=== PATIENT | female | born 1960 | race Caucasian/White ===

== ENCOUNTER → 2017-12-10 14:00 | Outpatient (CLI) | payer BC, SELFPAY ==
--- NOTE | 2017-12-10 14:00 | DT_ITS ---
This patient was seen during an EMR downtime December 08, 2017 - December 15, 2017. This patient may have a combination of paper and electronic documentation or all paper documentation. All documentation is viewable within the e-chart portion of [facility] for each patient visit.
[2017-12-14 15:39] LABS: Anion Gap 7 (5-15); BUN 13 mg/dL (7-18); BUN/Creat Ratio 21.7 RATIO (10-20); Calcium,Total 9.8 mg/dL (8.5-10.1); Chloride 102 mmol/L (98-107); Cholesterol 179 mg/dL (200); EST Glomerular Filtration Rate 110 mL/min (>60); Est Glom Filt Rate - Afr Amer 133 mL/min (>60); Glucose 92 mg/dL (74-106); High Density Lipoprotein 83 mg/dL; Potassium 4.2 mmol/L (3.5-5.1); Sodium Level 138 mmol/L (136-145); Triglycerides 137 mg/dL; Very Low Density Lipoprotein 27 mg/dL (5-40)
[2017-12-14 15:40] LABS: Hemoglobin A1c 7.7 % (4.2-6.3)
== END ==
PROVIDERS: Family Provider Family Medicine; PCP Family Medicine; Visit Provider Family Medicine
DX: E11.9 Type 2 diabetes mellitus without complications (principal)
CPT/HCPCS: 36415; 80048; 80061; 83036

== ENCOUNTER → 2018-10-01 15:45 | Outpatient (CLI) | payer BC, SELFPAY ==
[2018-10-01 17:46] LABS: Hemoglobin A1c 8.2 % (4.2-6.3)
[2018-10-01 17:49] LABS: Microalbumin,Random Urine 8.2 mg/L (NO RANGE EST.); Microalbumin:Creatinine Ratio 14.5 mg/g CRE (<30 mg/g CRE)
[2018-10-01 18:03] LABS: AST(SGOT) 13 U/L (15-37); Alanine Aminotransfer ALT/SGPT 22 U/L (13-56); Albumin, Serum 4.1 g/dL (3.2-5.0); Alkaline Phosphatase 65 U/L (45-117); Anion Gap 8 (5-15); BUN 14 mg/dL (7-18); Calcium,Total 9.1 mg/dL (8.5-10.1); Chloride 104 mmol/L (98-107); Cholesterol 168 mg/dL (200); Creatinine, Serum 0.64 mg/dL (0.55-1.02); EST Glomerular Filtration Rate 103 mL/min (>60); Est Glom Filt Rate - Afr Amer 124 mL/min (>60); Globulin 2.8 g/dL (2.2-4.2); Glucose 133 mg/dL (74-106); High Density Lipoprotein 83 mg/dL; Potassium 3.8 mmol/L (3.5-5.1); Protein, Total 6.9 g/dL (6.4-8.2); Sodium Level 141 mmol/L (136-145); Triglycerides 59 mg/dL; Very Low Density Lipoprotein 12 mg/dL (5-40)
== END ==
PROVIDERS: Family Provider Family Medicine; PCP Family Medicine; Referring Provider Family Medicine; Visit Provider Family Medicine
DX: E11.9 Type 2 diabetes mellitus without complications (principal)
CPT/HCPCS: 36415; 80048; 80061; 80076; 82043; 82570; 83036

== ENCOUNTER → 2019-07-09 09:18 | Outpatient (CLI) | payer BC, SELFPAY ==
--- NOTE | 2019-07-09 09:23 | RAD_ITS ---
STUDY: X-RAY - SACRUM/COCCYX REASON FOR EXAM: Female, 59 years old. pt fell on her tailbone area over a week ago, terrible pain since then TECHNIQUE: 3 view(s) of the sacrum and coccyx were obtained. COMPARISON: None. FINDINGS: Normal bilateral sacroiliac joints. There is acute fracture of the lower sacrum with mild angulation . Normal sacrococcygeal junction with a normal angulation. Normal coccygeal segments. The presacral soft tissue structures are unremarkable. RAD/Sacrum-Coccyx min 2 Views IMPRESSION: Fracture of the sacrum. Electronically Signed: Reece Contreras MD at 9:49 EST , Service support ,
== END ==
PROVIDERS: Family Provider Family Medicine; PCP Family Medicine; Referring Provider Family Medicine; Visit Provider Family Medicine
DX: S32.10XA Unspecified fracture of sacrum, initial encounter for closed fracture (principal); W19.XXXA Unspecified fall, initial encounter
CPT/HCPCS: 72220

== ENCOUNTER → 2019-07-14 13:12 | Outpatient (CLI) | payer BC, SELFPAY ==
--- NOTE | 2019-07-14 13:13 | RAD_ITS ---
STUDY: X-RAY - PELVIS REASON FOR EXAM: Female, 59 years old. Pain. Recent fall. TECHNIQUE: Inlet and outlet views of the pelvis was obtained. COMPARISON: None. FINDINGS: No visible fracture. No osseous destruction. Alignment anatomic. Mild degenerative changes. Soft tissues unremarkable. RAD/Pelvis 1 or 2 Views IMPRESSION: No acute osseous abnormality. Electronically Signed: Watson Fernandez, at 4:25 EST Tel , Service support ,
--- NOTE | 2019-07-14 13:13 | RAD_ITS ---
STUDY: X-RAY - SACRUM/COCCYX REASON FOR EXAM: Female, 59 years old. pain, fell 2018 TECHNIQUE: 3 view(s) of the sacrum and coccyx were obtained. COMPARISON: 9:23 AM same date. FINDINGS: Mildly displaced fracture of the S4 segment of the sacrum again demonstrated. As before there is mild anterior angulation of the more distal portion. No new fractures are evident. RAD/Sacrum-Coccyx min 2 Views IMPRESSION: Sacral fracture similar to previous. Electronically Signed: Watson Fernandez, at 4:35 EST Tel , Service support ,
== END ==
PROVIDERS: Family Provider Family Medicine; PCP Family Medicine; Referring Provider Orthopaedic Surgery; Visit Provider Orthopaedic Surgery
DX: M53.3 Sacrococcygeal disorders, not elsewhere classified (principal); S32.10XA Unspecified fracture of sacrum, initial encounter for closed fracture; W19.XXXA Unspecified fall, initial encounter
CPT/HCPCS: 72170; 72220

== ENCOUNTER → 2019-07-15 11:59 | Outpatient (CLI) | payer BC, SELFPAY ==
[2019-07-14 13:34] VITALS: BMI 25.7
[2019-07-15 14:27] LABS: Anion Gap 7 (5-15); BUN 20 mg/dL (7-18); BUN/Creat Ratio 26.7 RATIO (10-20); Calcium,Total 10.1 mg/dL (8.5-10.1); Chloride 103 mmol/L (98-107); Cholesterol 189 mg/dL (200); Creatinine, Serum 0.75 mg/dL (0.55-1.02); EST Glomerular Filtration Rate 85 mL/min (>60); Est Glom Filt Rate - Afr Amer 102 mL/min (>60); Glucose 154 mg/dL (74-106); High Density Lipoprotein 77 mg/dL; Potassium 3.8 mmol/L (3.5-5.1); Sodium Level 137 mmol/L (136-145); Triglycerides 129 mg/dL; Very Low Density Lipoprotein 26 mg/dL (5-40)
== END ==
PROVIDERS: Family Provider Family Medicine; PCP Family Medicine; Referring Provider Family Medicine; Visit Provider Family Medicine
DX: E11.9 Type 2 diabetes mellitus without complications (principal)
CPT/HCPCS: 36415; 80048; 80061

== ENCOUNTER → 2019-09-10 15:43 | Outpatient (CLI) | payer BC, SELFPAY ==
[2019-07-23 08:51] VITALS: BMI 25.7
--- NOTE | 2019-09-10 15:47 | RAD_ITS ---
STUDY: X-RAY - RIGHT ANKLE REASON FOR EXAM: Female, 59 years old. injury 2 weeks ago, pain and swelling foot and ankle -- pain goes up lateral side of leg TECHNIQUE: 3 view(s) of the ankle. COMPARISON: None. FINDINGS: Normal visualized distal tibia and fibula. Normal medial and lateral malleoli. Normal tibiotalar articulation and ankle mortise. Normal visualized talus and calcaneus. The visualized subtalar, talonavicular, calcaneocuboid and tarsal articulations are normal. The soft tissue structures are unremarkable. RAD/Ankle min 3 Views IMPRESSION: No fracture or malalignment. Electronically Signed: Don Corado MD ([place]) at 17:57 EST , Service support ,
--- NOTE | 2019-09-10 15:48 | RAD_ITS ---
STUDY: X-RAY - RIGHT FOOT CLINICAL: Female, 59 years old. injury 2 weeks ago, pain and swelling foot and ankle -- pain goes up lateral side of leg TECHNIQUE: 3 view(s) of the foot. COMPARISON: None. FINDINGS: Normal talus, calcaneus, and tarsal bones. Normal visualized subtalar, talonavicular, calcaneocuboid, tarsal and tarsometatarsal articulations. There is an accessory ossicle or unfused apophysis medial to the tarsal navicular. Normal metatarsi. Normal metatarsophalangeal joint of the great toe. Normal tibial and fibular sesamoid bones. Normal interphalangeal joint of the great toe. Normal phalanges of the great toe. Normal second through fifth metatarsophalangeal joints. Normal interphalangeal joints and phalanges of the lesser toes. The soft tissue structures are unremarkable. RAD/Foot min 3 Views IMPRESSION: No fracture or malalignment. Electronically Signed: Don Corado MD ([place]) at 17:57 EST , Service support ,
== END ==
PROVIDERS: PCP Family Medicine; Referring Provider Family Medicine; Visit Provider Family Medicine
DX: M25.571 Pain in right ankle and joints of right foot (principal)
CPT/HCPCS: 73610; 73630

== ENCOUNTER 2020-06-19 06:38 | Emergency (ER) | payer BC, SELFPAY ==
[2019-07-23 08:51] VITALS: BMI 25.7
[2020-06-19 06:39] VITALS: BP 160/94; PULSE 105; RESP 16; TEMP 36.6; O2SAT 98; BMI 26.4
--- NOTE | 2020-06-19 06:52 | ED.DCSUM_ITS ---
- ER Visit Summary Date of Service: 06/19/20 Chief Complaint: Itching and rash to scalp after having hair dyed History of Present Illness: The patient is a 60 F history of insulin-dependent diabetes. Patient had her hair dyed on Friday and yesterday developed a rash and itching to her scalp. She had this happen 1 other time after having her hair dyed about 15 years ago. She denies any other complaints. Physical Examination: Middle-aged female no acute distress. Vital signs are stable and afebrile. H EENT exam on her scalp and along her hairline its red and inflamed secondary to a local contact dermatitis or allergic reaction. Also along her neck at the hairline. No lymphadenopathy. Lungs clear to auscultation bilaterally. Heart regular rhythm no murmur. Abdomen soft nontender. Patient is moving all 4 extremities. No edema. Neurologically she is awake and alert with no focal motor deficits. Test Results: None Emergency Department Course and Treatment: History and exam are consistent with a local contact dermatitis secondary to hair dye. Treatment Plan: Wash her hair out thoroughly with plain water. Benadryl for itching. Prednisone for the allergic reaction. Watch her blood sugars closely. Disposition: Discharge Impression: Acute allergic reaction (contact dermatitis) secondary to hair dye History of insulin-dependent diabetes This note was generated with [employer] dictation software. It may contain incorrect words, spelling, and punctuation that were not noted in review of the chart prior to signing ED Disposition - Plan for ED Patient: Referrals: Milind Lamb MD [Primary Care Provider] -
--- NOTE | 2020-06-19 06:56 | ED.DEP ---
ED Disposition - Plan for ED Patient: Disposition: Home or Assisted Living Instructions: ED Allergic Reaction Local Other Prescriptions: Prednisone [Deltasone] 40 mg PO DAILY 5 Days tab Prescription Printed Referrals: Milind Lamb MD [Primary Care Provider] - As Needed Additional Instructions: Benadryl 25 to 50 mg 2-3 times a day for the itching. Wash your hair out thoroughly with plain water. You are having a local allergic reaction to the hair dye. Check with your hairdresser. Prednisone daily for the local allergic reaction to the hair dye. Watch her blood sugars closely the prednisone can affect your blood sugars and typically causes him to be higher.
[2020-06-19 07:03] VITALS: RESP 18
== END 2020-06-19 07:04 | disposition home or self-care (01) ==
LOC: ED 06:59
PROVIDERS: Emergency Provider Emergency Medicine; PCP Family Medicine
DX: L23.4 Allergic contact dermatitis due to dyes (principal); E11.9 Type 2 diabetes mellitus without complications; Z79.4 Long term (current) use of insulin
CPT/HCPCS: 99282

== ENCOUNTER → 2020-07-05 16:03 | Outpatient (CLI) | payer BC, SELFPAY ==
[2020-06-19 06:39] VITALS: BMI 26.4
[2020-07-05 18:15] LABS: Anion Gap 5 (5-15); BUN 17 mg/dL (7-18); BUN/Creat Ratio 23.7 RATIO (10-20); Calcium,Total 9.1 mg/dL (8.5-10.1); Chloride 107 mmol/L (98-107); Cholesterol 218 mg/dL (200); Creatinine, Serum 0.72 mg/dL (0.55-1.02); EST Glomerular Filtration Rate 89 mL/min (>60); Est Glom Filt Rate - Afr Amer 107 mL/min (>60); Glucose 107 mg/dL (74-106); High Density Lipoprotein 84 mg/dL; Potassium 3.5 mmol/L (3.5-5.1); Sodium Level 140 mmol/L (136-145); Triglycerides 75 mg/dL; Very Low Density Lipoprotein 15 mg/dL (5-40)
== END ==
PROVIDERS: PCP Family Medicine; Visit Provider Family Medicine
DX: E11.9 Type 2 diabetes mellitus without complications (principal)
CPT/HCPCS: 36415; 80048; 80061

== ENCOUNTER → 2020-10-19 14:10 | Outpatient (CLI) | payer MEDICAID, SELFPAY ==
[2020-10-19 18:14] LABS: Anion Gap 5 (5-15); BUN 12 mg/dL (7-18); BUN/Creat Ratio 17.7 RATIO (10-20); Chloride 101 mmol/L (98-107); Cholesterol 225 mg/dL (200); Creatinine, Serum 0.68 mg/dL (0.55-1.02); EST Glomerular Filtration Rate 95 mL/min (>60); Est Glom Filt Rate - Afr Amer 115 mL/min (>60); Glucose 142 mg/dL (74-106); High Density Lipoprotein 100 mg/dL; Potassium 3.9 mmol/L (3.5-5.1); Sodium Level 137 mmol/L (136-145); Triglycerides 88 mg/dL; Very Low Density Lipoprotein 18 mg/dL (5-40)
== END ==
PROVIDERS: PCP Family Medicine; Referring Provider Family Medicine; Visit Provider Family Medicine
DX: E11.9 Type 2 diabetes mellitus without complications (principal)
CPT/HCPCS: 36415; 80048; 80061

== ENCOUNTER → 2021-01-19 09:45 | Outpatient (CLI) | payer MEDICAID, SELFPAY ==
[2021-01-19 12:23] LABS: Microalbumin,Random Urine 12.9 mg/L (NO RANGE EST.); Microalbumin:Creatinine Ratio 17.5 mg/g CRE (<30 mg/g CRE)
[2021-01-19 12:27] LABS: Anion Gap 5 (5-15); BUN 9 mg/dL (7-18); BUN/Creat Ratio 13.5 RATIO (10-20); Calcium,Total 9.2 mg/dL (8.5-10.1); Chloride 103 mmol/L (98-107); Cholesterol 253 mg/dL (200); Creatinine, Serum 0.67 mg/dL (0.55-1.02); EST Glomerular Filtration Rate 97 mL/min (>60); Est Glom Filt Rate - Afr Amer 117 mL/min (>60); Glucose 257 mg/dL (74-106); High Density Lipoprotein 80 mg/dL; Sodium Level 137 mmol/L (136-145); Triglycerides 94 mg/dL; Very Low Density Lipoprotein 19 mg/dL (5-40)
== END ==
PROVIDERS: PCP Family Medicine; Visit Provider Family Medicine
DX: E11.9 Type 2 diabetes mellitus without complications (principal)
CPT/HCPCS: 36415; 80048; 80061; 82043; 82570

== ENCOUNTER 2021-07-24 15:53 | Inpatient (IN) | payer MEDICAID, SELFPAY ==
[2021-07-24] VITALS (13 sets, daily range): BP systolic 138–182; BP diastolic 65–94; PULSE 105–128; RESP 12–24; TEMP 36.6–36.9; O2SAT 89–100; BMI 18.0; BMI 20.3
--- NOTE | 2021-07-24 16:06 | RAD_ITS ---
HISTORY: covid with weakness EXAMINATION/TECHNIQUE: XR Chest 1 View: Portable upright AP chest x-ray COMPARISON: None FINDINGS: LINES/DEVICES: None. LUNGS: No consolidation, edema or effusion. No pneumothorax. MEDIASTINUM AND CARDIOVASCULAR STRUCTURES: Cardiac silhouette not enlarged. Central airways and mediastinal contour are unremarkable. BONES AND SOFT TISSUES: No acute bony abnormalities. RAD/Chest 1 View (Portable) IMPRESSION: No radiographic evidence of acute cardiopulmonary disease. at 1657 Reported and signed by: Frederick Gonzalez MD Electronically Signed: Frederick Gonzalez MD at 16:56 EST Tel , Service support ,
[2021-07-24 16:16] LABS: Absolute Lymphocyte Count 1.28 X10^3/uL (0.83-4.51); Basophil# 0.02 X10^3/uL; Basophil% 0.3 % (0-1); Eosinophil# 0.01 X10^3/uL; Eosinophils% 0.2 % (0-5); Hematocrit 46.5 % (37-47); Hemoglobin 14.9 g/dL (12.0-15.0); Lymphocyte # 1.28 X10^3/ul (0.83-4.51); Lymphocyte % 21.4 % (19-41); Mean Corpuscular Hgb 30.3 pg (27.0-32.0); Mean Corpuscular Volume 94.5 fL (81-99); Mean Platelet Vol. 12.8 fl (6.2-12.0); Monocyte# 0.66 X10^3/uL; NRBC Flagged by Analyzer 0 % (0-5); Neutrophil # 3.95 X10^3/uL (2.7-7.7); Neutrophil % 66.1 % (47-70); Platelet Count 176 K/mm3 (150-450); RBC Distribution Width CV 12.6 % (11.6-14.6); RBC Distribution Width SD 43.6 fl (35.1-43.9); Red Blood Count 4.92 M/mm3 (4.2-5.4)
--- NOTE | 2021-07-24 16:22 | EX.ED.DYSGE1 ---
HPI History of Present Illness Chief Complaint: General Illness Detail of Chief Complaint: Not feeling well for the last 2 to 3 days with history of COVID Informant: patient Narrative Narrative: Patient presents to the emergency department with multiple complaints related to COVID infection. Patient states that she was diagnosed with COVID-19 and has had symptoms for about 8 days. She complains of body aches and nausea. She had elevated blood sugars. Patient states she is not been compliant with her medications for the last several days. Patient just generally feels weak. She complains of pain in her back and her legs. She denies fevers. Patient is a type II diabetic. Patient's daughter told nursing staff patient is a heavy alcohol drinker. Patient denies drinking today and states she has not drank in 8 days. Prior similar symptoms: No PFSH PFSH Home Medications lisinopril 2.5 mg tablet 2.5 mg PO DAILY 07/14/19 [History Last Taken Unknown] sertraline 50 mg tablet 100 mg PO DAILY 07/14/19 [History Last Taken Unknown] insulin glargine U-300 conc 45 unit SQ QHS 06/19/20 [History Last Taken Unknown] metformin 1,000 mg PO BID 06/19/20 [History Last Taken Unknown] empagliflozin [Jardiance] 25 mg PO DAILY 07/24/21 [History Last Taken Unknown] glimepiride 2 mg PO DAILY 07/24/21 [History Last Taken Unknown] Allergy/AdvReac Type Severity Reaction Status Date / Time No Known Allergies Allergy Verified 07/24/21 15:57 Social History (Updated 07/23/19 @ 10:[address] Mj Borjas, DO) Smoking Status: Former smoker ROS ROS ED Constitutional Constitutional ED: Reports systems reviewed and no addt'l complaints, except as documented; Denies body ache(s), change in weight or chills Eyes Eyes: Denies acute decrease in peripheral vision, change in vision, double vision or loss of vision ENT ENT ED: Reports none; Denies ear pain, lip swelling, loss taste/smell, neck pain, otalgia or sore throat Cardiovascular Cardiovascular: Reports none; Denies abdominal pain, chest pain with activity, leg edema, lightheadedness, palpitations, rapid heart rate or syncope Respiratory/Chest Respiratory/Chest: Reports none and cough; Denies change in mental status, dry cough, dyspnea, hemoptysis, shortness of breath at rest or shortness of breath with exertion Gastrointestinal Gastrointestinal: Reports none, nausea and vomiting; Denies abdominal pain, change in stool character, diarrhea, hematemesis, hematochezia, melena or rectal bleeding Genitourinary Genitourinary ED: Reports none; Denies abdominal discomfort, anuria, dysuria, genital pain or polyuria Musculoskeletal Musculoskeletal: Reports none, back pain and myalgias; Denies arthralgias, difficulty walking, extremity pain or muscle weakness Integumentary Reports none; Denies abscess or rash Neurologic Neurologic: Reports none; Denies abnormal gait, confusion, focal weakness, frequent falls, headache(s), loss of vision, numbness, paresthesias, radicular pain, vertigo or weakness Psychiatric Psychiatric: Reports systems reviewed and no addt'l complaints, except as documented and none; Denies behavioral changes, confusion, difficulty concentrating, hallucinations, suicidal ideation, tactile hallucinations or visual hallucinations Endocrine Endocrinology: Denies none, cold intolerance, excessive sweating, fatigue or heat intolerance Hematologic/Lymphatic Hematologic/Lymphatic: Reports none; Denies anemia, easy bleeding or easy bruising Allergic/Immunologic Allergic/Immunologic ED: Denies as per HPI, none, lip swelling, mouth swelling, throat swelling, tongue swelling or hives EXAM Physical Exam Const Vital Signs: 07/24/21 15:54 07/24/21 15:58 07/24/21 16:14 Temperature 98 F Temperature Source Oral Pulse Rate 120 H Respiratory Rate 24 H Blood Pressure 182/94 H Blood Pressure Mean 123 Pulse Ox 89 94 100 Oxygen Delivery Method Room Air Room Air Room Air Positive well nourished and well developed General Appearance ED: well developed and NAD HEENT Reports TM's clear and moist mucous membranes normocephalic and atraumatic; Negative for trauma or tenderness Tympanic Membrane ED: Yes TM's clear Eyes PERRL and EOMs intact bilaterally General Eye ED: Negative for pale conjunctiva or scleral icterus Neck no lymphadenopathy, supple and no JVD General: Negative for tenderness Chest Wall inspection of chest normal and palpation of chest normal Chest: Negative for tenderness Resp normal respiratory effort and clear to auscultation bilaterally Effort and Inspection: Negative for respiratory distress or pain with movement Auscultation: Negative for rhonchi, wheezes or diminished lung sounds Cardio S1 normal heart sound, S2 normal heart sound and no murmurs Rate: tachycardic Peripheral Pulses: pulses 2+ throughout GI normal to inspection, nondistended, normoactive bowel sounds, soft to palpation, non-tender, non-distended and no masses Back/Spine no CVA tenderness and no thoracic nor lumbar tenderness Extremity normal to inspection General Extremety ED: Negative for edema General Extremity: Negative for edema Neuro oriented x3, CN's II-XII intact bilaterally, no sensory deficits noted and gait normal Sensorium / Orientation: awake, alert, oriented to person, oriented to place and oriented to time Motor Exam: strength 5/5 throughout and strength abnormal Psych mental status grossly normal Skin no rashes or lesions noted and no wounds MDM MDM MDM Narrative Medical decision making narrative: IV line established on arrival. Patient's blood work consistent with DKA. She was started on an insulin drip. She was ordered a liter saline fluid bolus. D-dimer also was elevated therefore CTA of the chest was ordered and results will be pending. Case discussed with hospitalist will evaluate patient for admission for DKA and COVID-19 Lab Data Attestation: I reviewed the patient's lab results. Labs: Laboratory Results - last 24 hr 07/24/21 07/24/21 07/24/21 16:00 16:00 16:00 WBC 6.0 RBC 4.92 Hgb 14.9 Hct 46.5 MCV 94.5 MCH 30.3 MCHC 32.0 RDW Std Deviation 43.6 RDW Coeff of Nellie 12.6 Plt Count 176 MPV 12.8 H Immature Gran % (Auto) 1.000 H Neut % (Auto) 66.1 Lymph % (Auto) 21.4 [place] % (Auto) 11.0 H Eos % (Auto) 0.2 Baso % (Auto) 0.3 Absolute Neuts (auto) 4.0 Absolute Lymphs (auto) 1.28 Nucleated RBC % 0 D-Dimer Quant (PE/DVT) Sodium 135 L Potassium 4.5 Chloride 100 Carbon Dioxide 9.0 L* Anion Gap 26 H BUN 17 Creatinine 1.33 H Estim Creat Clear Calc 38.61 Est GFR (MDRD) Af Amer 53 L Est GFR (MDRD) Non-Af 43 L BUN/Creatinine Ratio 12.8 Glucose 450 H Calcium 9.7 Ethyl Alcohol Acetone Level MODERATE H 07/24/21 07/24/21 16:00 16:00 WBC RBC Hgb Hct MCV MCH MCHC RDW Std Deviation RDW Coeff of Nellie Plt Count MPV Immature Gran % (Auto) Neut % (Auto) Lymph % (Auto) [place] % (Auto) Eos % (Auto) Baso % (Auto) Absolute Neuts (auto) Absolute Lymphs (auto) Nucleated RBC % D-Dimer Quant (PE/DVT) 0.61 H* Sodium Potassium Chloride Carbon Dioxide Anion Gap BUN Creatinine Estim Creat Clear Calc Est GFR (MDRD) Af Amer Est GFR (MDRD) Non-Af BUN/Creatinine Ratio Glucose Calcium Ethyl Alcohol < 3.0 Acetone Level Radiography Chest X-Ray - ED: 1 View Diagnostic Testing: Clinical Impression(s) from Imaging Studies Chest X-Ray 07/24/21 16:06 IMPRESSION: No radiographic evidence of acute cardiopulmonary disease. at 1657 Reported and signed by: Frederick Gonzalez MD Electronically Signed: Frederick Gonzalez MD at 16:56 EST Tel , Service support , 1 view chest x-ray obtained interpreted by myself as no acute disease process. Radiology in agreement. EKG Initial EKG: Attestation: I personally reviewed and interpreted this EKG as follows: Comments: Sinus rhythm with a rate of [address] changes Critical Care Time Critical Care Time: Yes Critical care time (excluding procedures): Including time spent:, Discussing w/Patient &/or Family/Insurance Verifier, Discussing w/Consultants, Arranging Admission or Transfer, Performing Direct Patient Care at Bedside and - (20 minutes) Discharge Plan Triage Chief Complaint: General Illness ED Provider: Odilon Iraheta Dx/Rx/DC Orders Clinical Impression: DKA (diabetic ketoacidosis), COVID-19 Prescriptions: No Action lisinopril 2.5 mg tablet 2.5 mg PO DAILY RF: 0 sertraline 50 mg tablet 100 mg PO DAILY RF: 0 metformin 1,000 MG tablet 1,000 mg PO BID RF: 0 insulin glargine U-300 conc 300 UNIT/ML insulin pen 45 unit SQ QHS RF: 0 glimepiride 2 mg tablet 2 mg PO DAILY RF: 0 Jardiance 25 mg tablet 25 mg PO DAILY RF: 0 Primary Care Provider: Milind Lamb Referrals: Milind Lamb MD [Primary Care Provider] - Disposition Disposition: Acute Care Hospital [facility]
[2021-07-24 16:31] LABS: Alcohol, Blood (Medical)-Serum < 3.0 mg/dL
[2021-07-24 16:48] LABS: Anion Gap 26 (5-15); BUN 17 mg/dL (7-18); BUN/Creat Ratio 12.8 RATIO (10-20); Calcium,Total 9.7 mg/dL (8.5-10.1); Chloride 100 mmol/L (98-107); Creatinine, Serum 1.33 mg/dL (0.55-1.02); EST Glomerular Filtration Rate 43 mL/min (>60); Est Glom Filt Rate - Afr Amer 53 mL/min (>60); Estimated Creatinine Clearance 38.61 ml/min; Glucose 450 mg/dL (74-106); Potassium 4.5 mmol/L (3.5-5.1); Sodium Level 135 mmol/L (136-145)
[2021-07-24 17:06] LABS: D-Dimer Quantitative (DVT/PE) 0.61 FEU/ug/m (0.27-0.49)
--- NOTE | 2021-07-24 17:10 | CT_ITS ---
HISTORY: covid, elevated d-dimer EXAMINATION: CTA Chest WO/W Contrast Injection TECHNIQUE: Helically acquired images were obtained of the chest following IV contrast as per pulmonary angiogram protocol with 3D reconstructions. A radiation dose optimization technique was used for this scan. IV Contrast dosage and agent: 75mL [id number] COMPARISON: None FINDINGS: LUNGS, PLEURA AND LARGE AIRWAYS: Scattered, patchy bilateral peripheral groundglass opacities without consolidations or pleural effusions. No pneumothorax. THYROID: No thyroid lesions. PULMONARY ARTERIES: Normal in caliber. No pulmonary embolism. AORTA AND GREAT VESSELS: No aneurysm or dissection. HEART AND PERICARDIUM: Heart size is normal. No pericardial effusion. MEDIASTINUM AND [place]: No mediastinal or hilar adenopathy. Esophagus is unremarkable. No hiatal hernia. UPPER ABDOMEN: No acute pathology. BONES: No acute or aggressive abnormality. CT/CTA Chest W/WO Contrast IMPRESSION: Negative CTA Chest. Pulmonary findings of unknown chronicity. In the appropriate clinical setting these findings are compatible with infection including atypical or viral pneumonia. Individualized dose optimization techniques were used for this CT. at 1821 Reported and signed by: Frederick Gonzalez MD Electronically Signed: Frederick Gonzalez MD at 18:20 EST Tel , Service support ,
--- NOTE | 2021-07-24 17:12 | HP.PCM.HOS_ITS ---
HPI - General General Date of Admission: 07/24/21 HPI Narrative ROBERT BRUCE, is a 61 F with history of type 2 diabetes mellitus, outpatient diagnosed COVID-19 on 07/19/2021 came to ER for generalized weakness, confusion not making sense. Prior to that patient has generalized malaise, loss of appetite, joint pain, lower back pain for 7-8 days and once was tested negative on last week Friday. The patient having generalized body aches and nausea and elevated blood sugar at home. She is not taking her oral medication and insulin for last several days. She also has loss of appetite. Complain of abdominal pain. In the ED, patient was found to be in DKA. She is tachycardic in ED. Heart rate 120s to 100. ALC 1.28 thousand. No leukocytosis. Chemistry shows bicarb of 9, anion gap 26, sodium 135. Creatinine 1.33. Acetone moderate. D-dimer elevated. CT angiogram done which is negative for PE but shows scattered, patchy groundglass opacity in both lungs. Twelve-lead EKG shows sinus tachycardia [address]-T changes. PFSH Home Medications lisinopril 2.5 mg tablet 2.5 mg PO DAILY 07/14/19 [History Last Taken Unknown] sertraline 50 mg tablet 100 mg PO DAILY 07/14/19 [History Last Taken Unknown] insulin glargine U-300 conc 45 unit SQ QHS 06/19/20 [History Last Taken Unknown] metformin 1,000 mg PO BID 06/19/20 [History Last Taken Unknown] empagliflozin [Jardiance] 25 mg PO DAILY 07/24/21 [History Last Taken Unknown] glimepiride 2 mg PO DAILY 07/24/21 [History Last Taken Unknown] Allergy/AdvReac Type Severity Reaction Status Date / Time No Known Allergies Allergy Verified 07/24/21 15:57 Social History Smoking Status: Former smoker ROS ROS Narrative Constitutional: Reports fatigue and weakness. Loss of appetite. Nausea HEENT: Reports systems reviewed and no addt'l complaints, except as documented Respiratory/Chest: Denies chest pain, shortness of breath at rest or with exertion Gastrointestinal: Nonspecific abdominal pain. Nausea. Denies coffee ground emesis, hematemesis or diarrhea or melena. No constipation. Genitourinary: Denies burning urination or new urinary tract symptoms. Dark urine in ED. Musculoskeletal: Complains of coccygeal spine and paravertebral muscle pain and knee pain last 7 days. No chronic arthritis or joint pain. Neurologic: Denies seizure-like activity skin: No ulcer. No rash Endocrinology: Diabetes mellitus type 2, reports systems reviewed and no addt'l complaints, except as documented Hematologic/Lymphatic: Reports systems reviewed and no addt'l complaints, except as documented Rest 14 ROS are negative except as mentioned in HPI Vital Signs Vital Signs Vital Signs: 07/24/21 15:54 07/24/21 15:58 07/24/21 16:14 Temperature 98 F Temperature Source Oral Pulse Rate 120 H Respiratory Rate 24 H Blood Pressure 182/94 H Blood Pressure Mean 123 Pulse Ox 89 94 100 Oxygen Delivery Method Room Air Room Air Room Air Weight Weight: 118 lb 6.212 oz Body Mass Index (BMI) 18.0 Physical Exam Narrative General: Alert, Oriented x3, Cooperative HEENT: Atraumatic, PERRLA, EOMI, Normocephalic Oral: Oral mucosa dry. No Gingival or Mucosal Lesions/ Ulcerations Neck: Supple, No JVD, Negative Carotid Bruits Lungs: Air entry diminished in bilateral lung bases. No crepitation/rhonchi/wheezing. No hypoxia Cardiovascular: Sinus tachycardia, normal S1, Normal S2, No murmurs Abdomen: Bowel Sounds sluggish, Soft, Non Tender, Non-Distended : Dark concentrated urine. No suprapubic tenderness. Extremities: No edema, Capillary Refill Less than 3 Seconds Skin: No rashes, No breakdown Musculoskeletal: Tenderness over the coccygeal bone with paravertebral muscle. No specific bony crepitus. ROM full. Neurological: Cranial nerves II-XII grossly intact, DTR 2+/4 and Symmetrical, Neuro grossly intact Psych/Mental Status: Flat affect Results Lab / Micro Data Result Diagrams: 07/24/21 16:00 07/24/21 16:00 Labs: Laboratory Results - last 24 hr 07/24/21 16:00: WBC 6.0, RBC 4.92, Hgb 14.9, Hct 46.5, MCV 94.5, MCH 30.3, MCHC 32.0, RDW Std Deviation 43.6, RDW Coeff of Nellie 12.6, Plt Count 176, MPV 12.8 H, Immature Gran % (Auto) 1.000 H, Neut % (Auto) 66.1, Lymph % (Auto) 21.4, Jack % (Auto) 11.0 H, Eos % (Auto) 0.2, Baso % (Auto) 0.3, Absolute Neuts (auto) 4.0, Absolute Lymphs (auto) 1.28, Nucleated RBC % 0 07/24/21 16:00: Sodium 135 L, Potassium 4.5, Chloride 100, Carbon Dioxide 9.0 L* , Anion Gap 26 H, BUN 17, Creatinine 1.33 H, Estim Creat Clear Calc 38.61, Est GFR (MDRD) Af Amer 53 L, Est GFR (MDRD) Non-Af 43 L, BUN/Creatinine Ratio 12.8, Glucose 450 H, Calcium 9.7 07/24/21 16:00: Acetone Level MODERATE H 07/24/21 16:00: Ethyl Alcohol < 3.0 07/24/21 16:00: D-Dimer Quant (PE/DVT) 0.61 H* Radiology Impression Chest X-Ray 07/24/21 16:06 IMPRESSION: No radiographic evidence of acute cardiopulmonary disease. at 1657 Reported and signed by: Frederick Gonzalez MD Electronically Signed: Frederick Gonzalez MD at 16:56 EST Tel , Service support , Assessment & Plan Assessment/Plan (1) DKA (diabetic ketoacidosis): (2) COVID-19: PLAN: 1. DKA with history of type II diabetes mellitus: Patient has high anion gap metabolic acidosis from DKA. Admitted in ICU. Patient is very dry therefore IV fluid normal saline bolus. She has second normal saline bolus running and then ordered 1 more liter. After that, normal saline 250 mL/h and then reevaluate. Continue insulin drip. Monitor intake and output. Maintain n.p.o. 2. COVID-19 infection with mainly knee arthralgia and lumbosacral spine pain: IV fluid resuscitation. COVID-19 PCR pending. Chest x-ray and CTA reviewed independently. No PE. I do not see any specific large constellation of pleural effusion but patchy groundglass opacities bilaterally. Patient is not hypoxic or tachypneic therefore no indication for dexamethasone or remdesivir. Inflammatory markers of COVID-19 are ordered. D-dimer elevated. 3. Hypertension: Blood pressure is elevated. IV hydralazine 10 mg daily 6 hourly as needed for systolic blood pressure more than 180 mmHg. Continue lisinopril 2.5 mg daily. 4. Anxiety and depression on sertraline continued. VTE prophylaxis moderate risk: Lovenox 31 SQ twice daily as per COVID-19 protocol. Living will/advanced directive/end of life care: Patient does not have living will or advanced directive. Her eldest daughter is 40-year-old and she is next of kin. After discussion of benefits/risks procedures involved with full code, DNR CC arrest and DNR CC, the patient opted for full code. Patient does want artificial life support including intubation, tube feed, ventilator and/chest compression, central venous catheter, vasopressor and DC shock if needed Total time spent in [id number] encounter in discussion of advanced directiv e 16 minutes. Clinical Impression(s) from Imaging Studies Chest X-Ray 07/24/21 16:06 IMPRESSION: No radiographic evidence of acute cardiopulmonary disease. Chest CTA 07/24/21 17:10 IMPRESSION: Negative CTA Chest. Pulmonary findings of unknown chronicity. In the appropriate clinical setting these findings are compatible with infection including atypical or viral pneumonia. Individualized dose optimization techniques were used for this CT. Charges/Coding Visit Charges Inpatient E&M: 98953 Init Hosp L3 Procedures Hospitalists Procedures: 85851 Advncd Care Plan 30 Min
[2021-07-24] MEDS: 0.9% Normal Saline 1,000 ML 999 ML IV (17:13)
--- NOTE | 2021-07-24 17:19 | NURSING ---
ICU [facility] DKA, COVID 19, GENERALIZED WEAKNESS
--- NOTE | 2021-07-24 17:45 | CASEMGMT ---
JEFFRY CM to room to meet with patient for initial transition planning/care coordination assessment. JEFFRY TRINIDAD introduced self and role at [facility]. Patient voices understanding and consents to assessment at this time. Patient's daughter Daysi present at bedside and provides additional history. Patient is alert and oriented and answers all questions appropriately. Care providers, pharmacy, and demographics verified/updated at this time. PCP: Milind Lamb Specialists: Denies Preferred Pharmacy: [facility] Insurance: [facility] Prescription Benefit: yes Living Will/HPOA: Patient denies having living will or HPOA. LNOK: Daughter Daysi Fortune Living Arrangements: Patient lives alone in one story duplex house with one step to enter the home. Patient states independent with ADLs prior to hospitalization. 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 Smoking/ETOH/Drugs: Former smoker (quit 10 years ago), current ETOH use but reports has not drank much since feeling ill the past few days (patient admits to 4 beers/day but daughter at bedside gestures to suggest more), denies drug use Transportation: Patient drives self and denies transportation concerns. DME/HHC/SNF: Patient typically ambulates independently without the use of an assistive device. Available DME in home: walk-in shower and glucometer. Patient denies previous HHC or SNF stays. Patient has no preference for DME company if home oxygen were to be needed at time of hospital discharge. Patient has had COVID-like symptoms since 07/17/20 and initially tested positive for COVID at workplace ([employer]) on 07/18 or 07/19. Patient reports she was instructed by her employer to continue working following positive test result as long as she was afebrile. Patient's daughter Daysi is available and willing to being medications and/or groceries as needed during time of quarantine. Patient has no concerns with going home at time of discharge. CM to follow for any discharge planning/needs. Patient voices no concerns/needs at this time. Advised patient to ask for CM if any questions/concerns/needs arise. Voices understanding. Plan: home
--- NOTE | 2021-07-24 17:53 | NURSING ---
CV ICU 201
[2021-07-24] MEDS: Morphine 4 MG/ML Syringe IV (17:56)
[2021-07-24] MEDS: Ondansetron 4 MG/2 ML Vial IV (17:56)
--- NOTE | 2021-07-24 18:54 | PCS.PANDOC ---
PANDEMIC DOCUMENTATION INITIATED: Date:07/24/2021 Time: 4995
[2021-07-24 19:01] LABS: Bedside Glucose 351 mg/dL (70-110)
[2021-07-24] MEDS: 0.9% Normal Saline 1,000 ML 500 ML IV (19:35)
[2021-07-24] MEDS: Dext 5%-0.45% NS 1,000 ML 150 ML IV (20:16)
[2021-07-24 20:26] LABS: Fibrinogen 428 mg/dl (203-444)
[2021-07-24 20:30] LABS: BNP,B-Type NATRIURETIC PEPTIDE 18.6 pg/mL (0-100)
[2021-07-24 20:34] LABS: Anion Gap 17 (5-15); BUN 15 mg/dL (7-18); BUN/Creat Ratio 12.5 RATIO (10-20); CPK Total, Creatine Kinase 47 U/L (26-192); Calcium,Total 9.4 mg/dL (8.5-10.1); Chloride 110 mmol/L (98-107); EST Glomerular Filtration Rate 49 mL/min (>60); Est Glom Filt Rate - Afr Amer 59 mL/min (>60); Estimated Creatinine Clearance 42.87 ml/min; Glucose 259 mg/dL (74-106); LDH 271 U/L (84-246); Lactic Acid 1.4 mmol/L (0.4-1.9); Potassium 3.9 mmol/L (3.5-5.1); Sodium Level 138 mmol/L (136-145)
[2021-07-24 20:48] LABS: Magnesium 2.3 mg/dL (1.6-2.6); Phosphorus 1.2 mg/dL (2.5-4.9)
[2021-07-24 21:50] LABS: Bedside Glucose 199 mg/dL (70-110)
[2021-07-24 21:50] LABS: Bedside Glucose 242 mg/dL (70-110)
[2021-07-24 21:50] LABS: Bedside Glucose 227 mg/dL (70-110)
[2021-07-24] MEDS: Morphine 2 MG/ML Syringe IV (22:31)
[2021-07-24] MEDS: Enoxaparin 30 MG/0.3 ML Syringe SC (23:57)
[2021-07-25] VITALS (19 sets, daily range): BP systolic 108–154; BP diastolic 57–88; PULSE 94–109; RESP 15–18; TEMP 36.9–37.2; O2SAT 95–99
[2021-07-25 02:06] LABS: Bedside Glucose 116 mg/dL (70-110)
[2021-07-25 02:06] LABS: Bedside Glucose 133 mg/dL (70-110)
[2021-07-25 02:06] LABS: Bedside Glucose 148 mg/dL (70-110)
[2021-07-25] MEDS: Potassium Chloride Oral Tablet 20 MEQ 40 MEQ PO ×2 (02:38→08:56)
[2021-07-25] MEDS: Potassium Chloride 10mEq/100mL 10 MEQ/100 ML IV.SOLN. 100 MEQ IV BOLUS ×6 (02:38→11:56)
[2021-07-25] MEDS: Dext 5%-0.45% NS 1,000 ML 150 ML IV (02:40)
[2021-07-25 03:12] LABS: BUN 13 mg/dL (7-18); Glucose 149 mg/dL (74-106)
[2021-07-25 03:13] LABS: Anion Gap 10 (5-15); BUN/Creat Ratio 12.6 RATIO (10-20); Calcium,Total 8.2 mg/dL (8.5-10.1); Chloride 114 mmol/L (98-107); Creatinine, Serum 1.03 mg/dL (0.55-1.02); EST Glomerular Filtration Rate 58 mL/min (>60); Est Glom Filt Rate - Afr Amer 70 mL/min (>60); Estimated Creatinine Clearance 49.95 ml/min; Potassium 2.9 mmol/L (3.5-5.1); Sodium Level 141 mmol/L (136-145)
[2021-07-25 04:56] LABS: AST(SGOT) 11 U/L (15-37); Alanine Aminotransfer ALT/SGPT 19 U/L (13-56); Albumin, Serum 3.2 g/dL (3.2-5.0); Alkaline Phosphatase 97 U/L (45-117); Anion Gap 9 (5-15); BUN 12 mg/dL (7-18); Bilirubin, Direct < 0.05 mg/dL (0.00-0.30); Calcium,Total 8.6 mg/dL (8.5-10.1); Chloride 112 mmol/L (98-107); EST Glomerular Filtration Rate 60 mL/min (>60); Est Glom Filt Rate - Afr Amer 73 mL/min (>60); Estimated Creatinine Clearance 52.31 ml/min; Globulin 3.6 g/dL (2.2-4.2); Glucose 74 mg/dL (74-106); Potassium 3.1 mmol/L (3.5-5.1); Protein, Total 6.8 g/dL (6.4-8.2); Sodium Level 140 mmol/L (136-145)
[2021-07-25] MEDS: TITRATION PARAMETER CHANGE 1 EACH IV (05:34)
[2021-07-25] MEDS: Morphine 2 MG/ML Syringe IV (05:38)
[2021-07-25 05:45] LABS: Bedside Glucose 105 mg/dL (70-110)
[2021-07-25 05:45] LABS: Bedside Glucose 81 mg/dL (70-110)
[2021-07-25 05:45] LABS: Bedside Glucose 78 mg/dL (70-110)
[2021-07-25 07:25] LABS: Bedside Glucose 396 mg/dL (70-110)
[2021-07-25 07:25] LABS: Bedside Glucose 377 mg/dL (70-110)
[2021-07-25] MEDS: Lisinopril 2.5 MG Tablet PO (08:56)
[2021-07-25] MEDS: Sertraline 100 MG Tablet PO (08:56)
[2021-07-25 09:11] LABS: Bedside Glucose 90 mg/dL (70-110)
[2021-07-25 09:11] LABS: Bedside Glucose 134 mg/dL (70-110)
--- NOTE | 2021-07-25 09:15 | PN.HOSP_ITS ---
Subjective Subjective Follow-up on acute DKA: Patient was seen and examined. She appears lethargic. She is not on oxygen. Denied any fever or chills. She has been off insulin drip and transition to Lantus with Premeal insulin. Objective Data Objective Data Vital Signs: Vital Signs Temp Pulse Resp BP Pulse Ox 98.7 F 95 18 122/61 H 99 07/25/21 04:00 07/25/21 07:00 07/25/21 07:00 07/25/21 07:00 07/25/21 07:00 Oxygen Delivery Method Room Air Weight: 57.5 kg Body Mass Index (BMI) 20.3 Intake & Output: Intake and Output for Last 24 Hours 07/23/21 07/24/21 07/25/21 23:59 23:59 23:59 Intake Total / 2134.49 / 2134.49 Balance / 2134.49 / 2134.49 Lab / Micro Data Result Diagrams: 07/24/21 16:00 07/25/21 04:30 Labs: Laboratory Results - last 24 hr 07/24/21 00:00: Sodium Cancelled, Potassium Cancelled, Chloride Cancelled, Carbon Dioxide Cancelled, Anion Gap Cancelled, BUN Cancelled, Creatinine Cancell ed, Estim Creat Clear Calc Cancelled, Est GFR (MDRD) Af Amer Cancelled, Est GFR (MDRD) Non-Af Cancelled, BUN/Creatinine Ratio Cancelled, Glucose Cancelled, Calcium Cancelled 07/24/21 15:55: POC Glucose 396 H 07/24/21 16:00: WBC 6.0, RBC 4.92, Hgb 14.9, Hct 46.5, MCV 94.5, MCH 30.3, MCHC 32.0, RDW Std Deviation 43.6, RDW Coeff of Nellie 12.6, Plt Count 176, MPV 12.8 H, Immature Gran % (Auto) 1.000 H, Neut % (Auto) 66.1, Lymph % (Auto) 21.4, [place] % (Auto) 11.0 H, Eos % (Auto) 0.2, Baso % (Auto) 0.3, Absolute Neuts (auto) 4.0, Absolute Lymphs (auto) 1.28, Nucleated RBC % 0 07/24/21 16:00: Sodium 135 L, Potassium 4.5, Chloride 100, Carbon Dioxide 9.0 L* , Anion Gap 26 H, BUN 17, Creatinine 1.33 H, Estim Creat Clear Calc 38.61, Est GFR (MDRD) Af Amer 53 L, Est GFR (MDRD) Non-Af 43 L, BUN/Creatinine Ratio 12.8, Glucose 450 H, Calcium 9.7 07/24/21 16:00: Acetone Level MODERATE H 07/24/21 16:00: Ethyl Alcohol < 3.0 07/24/21 16:00: D-Dimer Quant (PE/DVT) 0.61 H* 07/24/21 17:48: POC Glucose 351 H 07/24/21 17:55: COVID-19 (SUAD) Detected 07/24/21 18:47: POC Glucose 377 H 07/24/21 19:50: Phosphorus 1.2 L, Magnesium 2.3, C-React Prot Ext Range 27.20 H 07/24/21 19:50: Fibrinogen 428 07/24/21 19:50: Sodium 138, Potassium 3.9, Chloride 110 H, Carbon Dioxide 11.0 L , Anion Gap 17 H, BUN 15, Creatinine 1.20 H, Estim Creat Clear Calc 42.87, Est GFR (MDRD) Af Amer 59 L, Est GFR (MDRD) Non-Af 49 L, BUN/Creatinine Ratio 12.5, Glucose 259 H, Calcium 9.4, Lactate Dehydrogenase 271 H, Total Creatine Kinase 47 07/24/21 19:50: B-Natriuretic Peptide 18.6 07/24/21 19:50: Lactic Acid 1.4 07/24/21 19:50: Procalcitonin 0.10 H 07/24/21 19:53: POC Glucose 242 H 07/24/21 20:55: POC Glucose 227 H 07/24/21 21:47: POC Glucose 199 H 07/24/21 23:54: POC Glucose 133 H 07/25/21 00:00: Sodium 141, Potassium 2.9 L, Chloride 114 H, Carbon Dioxide 17.0 L, Anion Gap 10, BUN 13, Creatinine 1.03 H, Estim Creat Clear Calc 49.95, Est GFR (MDRD) Af Amer 70, Est GFR (MDRD) Non-Af 58 L, BUN/Creatinine Ratio 12.6, Glucose 149 H, Calcium 8.2 L 07/25/21 00:47: POC Glucose 148 H 07/25/21 02:01: POC Glucose 116 H 07/25/21 02:44: POC Glucose 105 07/25/21 04:27: POC Glucose 81 07/25/21 04:30: Sodium 140, Potassium 3.1 L, Chloride 112 H, Carbon Dioxide 19.0 L, Anion Gap 9, BUN 12, Creatinine 1.00, Estim Creat Clear Calc 52.31, Est GFR (MDRD) Af Amer 73, Est GFR (MDRD) Non-Af 60, BUN/Creatinine Ratio 12.0, Glucose 74, Calcium 8.6, Total Bilirubin 0.10 L, Direct Bilirubin < 0.05, AST 11 L, ALT 19, Alkaline Phosphatase 97, Total Protein 6.8, Albumin 3.2, Globulin 3.6 07/25/21 05:40: POC Glucose 78 07/25/21 06:28: POC Glucose 90 07/25/21 08:50: POC Glucose 134 H Radiography Diagnostic Testing: Radiology Impression Chest X-Ray 07/24/21 16:06 IMPRESSION: No radiographic evidence of acute cardiopulmonary disease. at 1657 Reported and signed by: Frederick Gonzalez MD Electronically Signed: Frederick Gonzalez MD at 16:56 EST Tel , Service support , Chest CTA 07/24/21 17:10 IMPRESSION: Negative CTA Chest. Pulmonary findings of unknown chronicity. In the appropriate clinical setting these findings are compatible with infection including atypical or viral pneumonia. Individualized dose optimization techniques were used for this CT. at 0081 Reported and signed by: Frederick Gonzalez MD Electronically Signed: Frederick Gonzalez MD at 18:20 EST Tel , Service support , Physical Exam Narrative Physical exam: General: Alert, Oriented x3, Cooperative, No apparent distress, Well developed HEENT: Atraumatic Oral: Moist Mucosa Neck: Supple Lungs: Clear to auscultation Cardiovascular: HS I+II, regular, no murmurs Abdomen: Bowel Sounds Present, Soft, Non Tender Extremities: No edema Assessment & Plan Assessment/Plan (1) DKA (diabetic ketoacidosis): QUALIFIERS: Diabetes mellitus type: type 2 Diabetes mellitus complication detail: without coma Qualified Code(s): E11.10 - Type 2 diabetes mellitus with ketoacidosis without coma (2) COVID-19: PLAN: 1. Acute DKA likely secondary to acute COVID-19 pneumonia, resolved Lantus with Premeal insulin and insulin sliding scale Check HbA1c, recheck electrolytes Transferred out of ICU 2. Acute COVID-19 pneumonia without hypoxia, patient is not on oxygen CTA of the chest was negative for acute PE showed bilateral infiltrates Would hold off on starting Decadron, continue to monitor 3. Hypokalemia/hypophosphatemia, replaced, recheck in a.m. 4. Hypertension, controlled, continue on lisinopril 5. Anxiety/depression, continue on sertraline 6. DVT prophylaxis with Lovenox subcu Charges/Coding Visit Charges Inpatient E&M: 70659 Subs Hosp L2
[2021-07-25] MEDS: Insulin Lispro 100 UNIT/ML INSULN.PEN SC ×4 (09:38→20:29)
[2021-07-25] MEDS: Enoxaparin 30 MG/0.3 ML Syringe SC ×2 (09:41→20:29)
[2021-07-25] MEDS: Metoclopramide 10 MG/2 ML Vial 5 MG IV ×2 (10:45→20:29)
[2021-07-25 11:41] LABS: Bedside Glucose 163 mg/dL (70-110)
[2021-07-25 12:20] LABS: Absolute Lymphocyte Count 1.05 X10^3/uL (0.83-4.51); Absolute Neutrophil Count 2.9 X10^3/uL (2.0-7.7); Basophil# 0.02 X10^3/uL; Basophil% 0.5 % (0-1); Eosinophil# 0.01 X10^3/uL; Eosinophils% 0.2 % (0-5); Hemoglobin 13.4 g/dL (12.0-15.0); Lymphocyte # 1.05 X10^3/ul (0.83-4.51); Lymphocyte % 23.6 % (19-41); Mean Corp Hgb Conc 33.5 g/dL (32-36); Mean Corpuscular Hgb 30.6 pg (27.0-32.0); Mean Corpuscular Volume 91.3 fL (81-99); Monocyte# 0.46 X10^3/uL; Monocyte% 10.4 % (0-10); NRBC Flagged by Analyzer 0 % (0-5); Neutrophil # 2.86 X10^3/uL (2.7-7.7); Neutrophil % 64.4 % (47-70); Platelet Count 127 K/mm3 (150-450); RBC Distribution Width CV 12.5 % (11.6-14.6); RBC Distribution Width SD 42.6 fl (35.1-43.9); Red Blood Count 4.38 M/mm3 (4.2-5.4); White Blood Count 4.4 K/mm3 (4.4-11.0)
[2021-07-25 12:34] LABS: Anion Gap 9 (5-15); BUN 11 mg/dL (7-18); BUN/Creat Ratio 13.3 RATIO (10-20); Calcium,Total 8.9 mg/dL (8.5-10.1); Chloride 109 mmol/L (98-107); Creatinine, Serum 0.83 mg/dL (0.55-1.02); EST Glomerular Filtration Rate 75 mL/min (>60); Est Glom Filt Rate - Afr Amer 90 mL/min (>60); Estimated Creatinine Clearance 63.02 ml/min; Glucose 151 mg/dL (74-106); Potassium 3.8 mmol/L (3.5-5.1); Sodium Level 137 mmol/L (136-145)
--- NOTE | 2021-07-25 13:21 | NURSING ---
report called to med-surg for transfer to room 311
[2021-07-25 18:46] LABS: Bedside Glucose 139 mg/dL (70-110)
[2021-07-25] MEDS: Acetaminophen 325 MG Tablet 650 MG PO (20:38)
[2021-07-25 21:25] LABS: Bedside Glucose 281 mg/dL (70-110)
[2021-07-26] VITALS (11 sets, daily range): BP systolic 123–151; BP diastolic 69–94; PULSE 78–118; RESP 16–18; TEMP 36.9–37.3; O2SAT 98–99
--- NOTE | 2021-07-26 02:29 | PCS.PANDOC ---
PANDEMIC DOCUMENTATION INITIATED: Date: 07/25/21 Time: 1899
[2021-07-26 02:50] LABS: Internal QC Validated? YES +Cl - CLEAR BKGD; Pregnancy, Urine Negative Negative
[2021-07-26] MEDS: Metoclopramide 10 MG/2 ML Vial 5 MG IV ×3 (06:18→20:13)
[2021-07-26 06:43] LABS: Absolute Lymphocyte Count 1.04 X10^3/uL (0.83-4.51); Absolute Neutrophil Count 1.6 X10^3/uL (2.0-7.7); Hematocrit 35.5 % (37-47); Hemoglobin 12.1 g/dL (12.0-15.0); Lymphocyte # 1.04 X10^3/ul (0.83-4.51); Lymphocyte % 34.2 % (19-41); Mean Corp Hgb Conc 34.1 g/dL (32-36); Mean Corpuscular Hgb 30.5 pg (27.0-32.0); Mean Corpuscular Volume 89.4 fL (81-99); Mean Platelet Vol. 12.4 fl (6.2-12.0); Monocyte# 0.35 X10^3/uL; Monocyte% 11.5 % (0-10); NRBC Flagged by Analyzer 0 % (0-5); Neutrophil # 1.62 X10^3/uL (2.7-7.7); Neutrophil % 53.3 % (47-70); Platelet Count 117 K/mm3 (150-450); RBC Distribution Width CV 12.7 % (11.6-14.6); RBC Distribution Width SD 41.9 fl (35.1-43.9); Red Blood Count 3.97 M/mm3 (4.2-5.4)
[2021-07-26 07:04] LABS: ALB/GLOB Ratio 0.7 RATIO (0.9-2.4); AST(SGOT) 10 U/L (15-37); Alanine Aminotransfer ALT/SGPT 12 U/L (13-56); Albumin, Serum 2.7 g/dL (3.2-5.0); Alkaline Phosphatase 93 U/L (45-117); Anion Gap 12 (5-15); BUN 6 mg/dL (7-18); BUN/Creat Ratio 8.9 RATIO (10-20); Calcium,Total 9.1 mg/dL (8.5-10.1); Chloride 106 mmol/L (98-107); Creatinine, Serum 0.68 mg/dL (0.55-1.02); EST Glomerular Filtration Rate 95 mL/min (>60); Est Glom Filt Rate - Afr Amer 115 mL/min (>60); Estimated Creatinine Clearance 76.92 ml/min; Globulin 3.7 g/dL (2.2-4.2); Glucose 279 mg/dL (74-106); Potassium 3.1 mmol/L (3.5-5.1); Protein, Total 6.4 g/dL (6.4-8.2); Sodium Level 135 mmol/L (136-145)
[2021-07-26] MEDS: Insulin Lispro 100 UNIT/ML INSULN.PEN SC ×6 (07:56→20:08)
[2021-07-26] MEDS: Lisinopril 2.5 MG Tablet PO (07:57)
[2021-07-26] MEDS: Enoxaparin 30 MG/0.3 ML Syringe SC ×2 (07:57→20:08)
[2021-07-26 09:01] LABS: Bedside Glucose 302 mg/dL (70-110)
[2021-07-26 11:30] LABS: Bedside Glucose 375 mg/dL (70-110)
--- NOTE | 2021-07-26 12:51 | PN.HOSP_ITS ---
Subjective Subjective Follow-up on acute DKA: Patient was seen and examined. Denied any new complaints. She feels weak generally. Denies any fever or chills Objective Data Objective Data Vital Signs: Vital Signs Temp Pulse Resp BP Pulse Ox 98.7 F 118 H 16 145/83 H 98 07/26/21 11:04 07/26/21 12:45 07/26/21 11:04 07/26/21 11:04 07/26/21 11:04 Oxygen Delivery Method Room Air Weight: 54.8 kg Body Mass Index (BMI) 20.3 Intake & Output: Intake and Output for Last 24 Hours 07/24/21 07/25/21 07/26/21 23:59 23:59 23:59 Intake Total / 3225.3233 / 3225.3233 572.5 / 572.5 Output Total 1400 / 1400 Balance / 1825.3233 / 1825.3233 572.5 / 572.5 Lab / Micro Data Result Diagrams: 07/26/21 04:34 07/26/21 04:34 Labs: Laboratory Results - last 24 hr 07/25/21 16:45: POC Glucose 139 H 07/25/21 20:26: POC Glucose 281 H 07/26/21 01:00: Urine Test Negative 07/26/21 04:34: WBC 3.0 L, RBC 3.97 L, Hgb 12.1, Hct 35.5 L, MCV 89.4, MCH 30.5, MCHC 34.1, RDW Std Deviation 41.9, RDW Coeff of Nellie 12.7, Plt Count 117 L, MPV 12.4 H, Immature Gran % (Auto) 1.000 H, Neut % (Auto) 53.3, Lymph % (Auto) 34.2, [place] % (Auto) 11.5 H, Eos % (Auto) 0.0, Baso % (Auto) 0.0, Absolute Neuts (auto) 1.6 L, Absolute Lymphs (auto) 1.04, Nucleated RBC % 0 07/26/21 04:34: Sodium 135 L, Potassium 3.1 L, Chloride 106, Carbon Dioxide 17.0 L, Anion Gap 12, BUN 6 L, Creatinine 0.68, Estim Creat Clear Calc 76.92, Est GFR (MDRD) Af Amer 115, Est GFR (MDRD) Non-Af 95, BUN/Creatinine Ratio 8.9 L, Glucose 279 H, Calcium 9.1, Total Bilirubin 0.50, AST 10 L, ALT 12 L, Alkaline Phosphatase 93, Total Protein 6.4, Albumin 2.7 L, Globulin 3.7, Albumin/Globulin Ratio 0.7 L 07/26/21 07:44: POC Glucose 302 H 07/26/21 10:57: POC Glucose 375 H Micro: Microbiology 07/26/21 01:00 Urine, Random Legionella Antigen - Final 07/26/21 01:00 Urine, Random Streptococcus pneumoniae Antigen (M - Final Physical Exam Narrative Physical exam: General: Alert, Oriented x3, Cooperative, appears frail HEENT: Atraumatic Oral: Moist Mucosa Neck: Supple Lungs: Diminished to auscultation Cardiovascular: HS I+II, regular, no murmurs Abdomen: Bowel Sounds Present, Soft, Non Tender Extremities: No edema Assessment & Plan Assessment/Plan (1) DKA (diabetic ketoacidosis): QUALIFIERS: Diabetes mellitus type: type 2 Diabetes mellitus complication detail: without coma Qualified Code(s): E11.10 - Type 2 diabetes mellitus with ketoacidosis without coma (2) COVID-19: PLAN: 1. Acute DKA likely secondary to acute COVID-19 pneumonia, resolved 2. Type 2 DM, BS is uncontrolled, Continue on Lantus with increased premeal insulin and insulin sliding scale 3. Acute COVID-19 pneumonia without hypoxia, patient remains not on oxygen CTA of the chest was negative for acute PE showed bilateral infiltrates Continue to hold off on starting Decadron 4. Hypokalemia/hypophosphatemia, resolved, recheck in a.m. 5. Hypertension, controlled, continue on lisinopril 6. Anxiety/depression, continue on sertraline 7. DVT prophylaxis with Lovenox subcu Charges/Coding Visit Charges Inpatient E&M: 72629 Subs Hosp L2
[2021-07-26] MEDS: Potassium Chloride Oral Tablet 20 MEQ 40 MEQ PO ×2 (13:20→17:03)
[2021-07-26] MEDS: 0.9% Saline Lock 10 ML Syringe IV (13:21)
[2021-07-26] MEDS: Insulin Lispro 100 UNIT/ML INSULN.PEN 10 UNIT SC (16:18)
[2021-07-26 16:31] LABS: Bedside Glucose 261 mg/dL (70-110)
[2021-07-26] MEDS: Acetaminophen 325 MG Tablet 650 MG PO (17:04)
[2021-07-26 17:28] LABS: Hemoglobin A1c 11.8 % (3.8-5.6)
[2021-07-26 20:25] LABS: Bedside Glucose 253 mg/dL (70-110)
[2021-07-27] VITALS (8 sets, daily range): BP systolic 117–165; BP diastolic 74–93; PULSE 81–112; RESP 16; TEMP 36.4–36.9; O2SAT 98–99
[2021-07-27] MEDS: Metoclopramide 10 MG/2 ML Vial 5 MG IV (06:02)
[2021-07-27] MEDS: 0.9% Saline Lock 10 ML Syringe IV (06:02)
[2021-07-27 08:20] LABS: Bedside Glucose 94 mg/dL (70-110)
[2021-07-27] MEDS: Enoxaparin 30 MG/0.3 ML Syringe SC ×2 (08:58→21:10)
[2021-07-27] MEDS: Potassium Chloride Oral Tablet 20 MEQ 40 MEQ PO ×2 (08:58→16:07)
[2021-07-27] MEDS: Insulin Lispro 100 UNIT/ML INSULN.PEN 10 UNIT SC ×3 (08:58→17:28)
[2021-07-27] MEDS: Lisinopril 2.5 MG Tablet PO (08:58)
[2021-07-27 09:16] LABS: Absolute Lymphocyte Count 1.57 X10^3/uL (0.83-4.51); Absolute Neutrophil Count 1.1 X10^3/uL (2.0-7.7); Basophil# 0.01 X10^3/uL; Basophil% 0.3 % (0-1); Eosinophil# 0.01 X10^3/uL; Eosinophils% 0.3 % (0-5); Hematocrit 39.3 % (37-47); Hemoglobin 13.7 g/dL (12.0-15.0); Lymphocyte # 1.57 X10^3/ul (0.83-4.51); Lymphocyte % 50.3 % (19-41); Mean Corp Hgb Conc 34.9 g/dL (32-36); Mean Corpuscular Hgb 30.8 pg (27.0-32.0); Mean Corpuscular Volume 88.3 fL (81-99); Mean Platelet Vol. 11.5 fl (6.2-12.0); Monocyte# 0.39 X10^3/uL; Monocyte% 12.5 % (0-10); NRBC Flagged by Analyzer 0 % (0-5); Neutrophil # 1.12 X10^3/uL (2.7-7.7); Platelet Count 145 K/mm3 (150-450); RBC Distribution Width CV 12.7 % (11.6-14.6); RBC Distribution Width SD 41.1 fl (35.1-43.9); Red Blood Count 4.45 M/mm3 (4.2-5.4); White Blood Count 3.1 K/mm3 (4.4-11.0)
[2021-07-27 09:46] LABS: ALB/GLOB Ratio 0.7 RATIO (0.9-2.4); AST(SGOT) 23 U/L (15-37); Alanine Aminotransfer ALT/SGPT 15 U/L (13-56); Albumin, Serum 3.1 g/dL (3.2-5.0); Alkaline Phosphatase 109 U/L (45-117); Anion Gap 5 (5-15); BUN 10 mg/dL (7-18); BUN/Creat Ratio 17.1 RATIO (10-20); Calcium,Total 9.5 mg/dL (8.5-10.1); Chloride 108 mmol/L (98-107); Creatinine, Serum 0.59 mg/dL (0.55-1.02); EST Glomerular Filtration Rate 112 mL/min (>60); Est Glom Filt Rate - Afr Amer 135 mL/min (>60); Estimated Creatinine Clearance 88.49 ml/min; Globulin 4.2 g/dL (2.2-4.2); Glucose 112 mg/dL (74-106); Potassium 3.3 mmol/L (3.5-5.1); Protein, Total 7.3 g/dL (6.4-8.2); Sodium Level 140 mmol/L (136-145)
[2021-07-27 11:25] LABS: Bedside Glucose 104 mg/dL (70-110)
--- NOTE | 2021-07-27 12:07 | PCM.PN.HOSP ---
Subjective Subjective Follow-up on acute DKA: Patient was seen and examined. Patient was seen and examined. Appeared frail. Denied any specific complaints Objective Data Objective Data Vital Signs: Vital Signs Temp Pulse Resp BP Pulse Ox 97.5 F L 110 H 16 142/93 H 98 07/27/21 11:16 07/27/21 11:16 07/27/21 11:16 07/27/21 11:16 07/27/21 11:16 Oxygen Delivery Method Room Air Weight: 54.6 kg Body Mass Index (BMI) 20.3 Intake & Output: Intake and Output for Last 24 Hours 07/25/21 07/26/21 07/27/21 23:59 23:59 23:59 Intake Total 3225.3233 / 3225.3233 872.5 / 872.5 700 / 700 Output Total 1400 / 1400 Balance 1825.3233 / 1825.3233 872.5 / 872.5 700 / 700 Lab / Micro Data Result Diagrams: 07/27/21 09:03 07/27/21 09:03 Labs: Laboratory Results - last 24 hr 07/26/21 04:34: Hemoglobin A1c 11.8 H 07/26/21 16:16: POC Glucose 261 H 07/26/21 20:07: POC Glucose 253 H 07/27/21 07:31: POC Glucose 94 07/27/21 09:03: WBC 3.1 L, RBC 4.45, Hgb 13.7, Hct 39.3, MCV 88.3, MCH 30.8, MCHC 34.9, RDW Std Deviation 41.1, RDW Coeff of Nellie 12.7, Plt Count 145 L, MPV 11.5, Immature Gran % (Auto) 0.600, Neut % (Auto) 36.0 L, Lymph % (Auto) 50.3 H, [place] % (Auto) 12.5 H, Eos % (Auto) 0.3, Baso % (Auto) 0.3, Absolute Neuts (auto) 1.1 L, Absolute Lymphs (auto) 1.57, Nucleated RBC % 0 07/27/21 09:03: Sodium 140, Potassium 3.3 L, Chloride 108 H, Carbon Dioxide 27.0, Anion Gap 5, BUN 10, Creatinine 0.59, Estim Creat Clear Calc 88.49, Est GFR (MDRD) Af Amer 135, Est GFR (MDRD) Non-Af 112, BUN/Creatinine Ratio 17.1, Glucose 112 H, Calcium 9.5, Total Bilirubin 0.30, AST 23, ALT 15, Alkaline Phosphatase 109, Total Protein 7.3, Albumin 3.1 L, Globulin 4.2, Albumin/Globulin Ratio 0.7 L 07/27/21 11:11: POC Glucose 104 Micro: Microbiology 07/26/21 01:00 Urine, Random Legionella Antigen - Final 07/26/21 01:00 Urine, Random Streptococcus pneumoniae Antigen (M - Final Physical Exam Narrative Physical exam: General: Alert, Oriented x3, Cooperative, appears frail HEENT: Atraumatic Oral: Moist Mucosa Neck: Supple Lungs: Diminished to auscultation Cardiovascular: HS I+II, regular, no murmurs Abdomen: Bowel Sounds Present, Soft, Non Tender Extremities: No edema Assessment & Plan Assessment/Plan (1) DKA (diabetic ketoacidosis): QUALIFIERS: Diabetes mellitus type: type 2 Diabetes mellitus complication detail: without coma Qualified Code(s): E11.10 - Type 2 diabetes mellitus with ketoacidosis without coma (2) COVID-19: PLAN: 1. Acute DKA likely secondary to acute COVID-19 pneumonia, resolved 2. Type 2 DM, HgbA1c 11.8, BS is better controlled Continue on Lantus, premeal insulin and insulin sliding scale with blood glucose checks 3. Acute COVID-19 pneumonia without hypoxia, patient remains not on oxygen CTA of the chest was negative for acute PE showed bilateral infiltrates Continue to hold off on starting Decadron 4. BRITTNI, pre-renal secondary to #1, present on admission, resolved now 5. Hypokalemia/hypophosphatemia, resolved, recheck in a.m. 6. Hypertension, controlled, continue on lisinopril 7. Anxiety/depression, continue on sertraline 8. DVT prophylaxis with Lovenox subcu Charges/Coding Visit Charges Inpatient E&M: 07958 Subs Hosp L2
--- NOTE | 2021-07-27 14:13 | CASEMGMT ---
Addendum entered by Abimbola Whitt 07/27/21 14:42: Pt also states that she does not need resources for alcohol. She states she has not drank in awhile. TC to pt dtr to make aware of discussion with patient as patient's nurse stated she had concerns. Dtr states pt had not checked her blood sugars in 5 days. Made her aware that the patient admitted this and states she knows how. Dtr states its behavioral. She is aware that a HHC list was left with pt in case she changes her mind. Dtr had no further questions/concerns. Original Note: JEFFRY CM in to pt room. Discussed dc planning with pt. Pt states she has a BGM with lancets and strips. She states she knows she is supposed to check her blood sugar daily but she doesn't do it. She states she is busy at work. Then she states there are no excuses. She does have insulin and needles. She states she takes it at . She reports she has to bulk picker insulin at [facility] but they have had odd hours. She received a text that rx are ready. Spoke with her regarding HHC SN for diabetic education and PT/OT for therapy at home. She states she does not feel she needs either. She states she feels much better today strength alan compared to two days ago. Patient was provided a list of HHC providers including quality and resource use data and consistent with the patient?s preferred geographic region, medical needs, and insurance network in case she should change her mind about HHC. Pt denies further needs at this time.
--- NOTE | 2021-07-27 16:26 | CASEMGMT ---
Social Work Note SW aware that pt apparently drinks 4 beers a day. RN CM discussed this with pt. Pt denied wanting ETOH resources. Jelena Alamo SUPERINTENDENT RECREATION, MEDICAL BILLER CODER
[2021-07-27 16:41] LABS: Bedside Glucose 211 mg/dL (70-110)
[2021-07-27] MEDS: Insulin Lispro 100 UNIT/ML INSULN.PEN SC (17:28)
--- NOTE | 2021-07-27 21:59 | NURSING ---
pt blood glucose 61, 2200 insulin dose held. Pt given orange juice and cookies with peanut butter. Recheck blood glucose 133.
[2021-07-27 23:50] LABS: Bedside Glucose 133 mg/dL (70-110)
[2021-07-27 23:50] LABS: Bedside Glucose 61 mg/dL (70-110)
[2021-07-28] VITALS (9 sets, daily range): BP systolic 106–145; BP diastolic 68–85; PULSE 84–108; RESP 16–18; TEMP 36.3–37.1; O2SAT 97–100
[2021-07-28] MEDS: Insulin Lispro 100 UNIT/ML INSULN.PEN SC ×4 (06:43→21:42)
[2021-07-28 07:00] LABS: Absolute Lymphocyte Count 1.51 X10^3/uL (0.83-4.51); Absolute Neutrophil Count 0.9 X10^3/uL (2.0-7.7); Basophil# 0.01 X10^3/uL; Basophil% 0.3 % (0-1); Eosinophil# 0.02 X10^3/uL; Eosinophils% 0.7 % (0-5); Hematocrit 36.2 % (37-47); Hemoglobin 12.3 g/dL (12.0-15.0); Lymphocyte # 1.51 X10^3/ul (0.83-4.51); Lymphocyte % 52.4 % (19-41); Mean Corpuscular Hgb 30.2 pg (27.0-32.0); Mean Corpuscular Volume 88.9 fL (81-99); Mean Platelet Vol. 12.1 fl (6.2-12.0); Monocyte# 0.42 X10^3/uL; Monocyte% 14.6 % (0-10); NRBC Flagged by Analyzer 0 % (0-5); Neutrophil # 0.91 X10^3/uL (2.7-7.7); Neutrophil % 31.7 % (47-70); POSITIVE DIFFERENTIAL YES; Platelet Count 137 K/mm3 (150-450); RBC Distribution Width CV 12.6 % (11.6-14.6); RBC Distribution Width SD 41.5 fl (35.1-43.9); Red Blood Count 4.07 M/mm3 (4.2-5.4); White Blood Count 2.9 K/mm3 (4.4-11.0)
[2021-07-28 07:04] LABS: Differential Indicated SCAN CRITERIA MET
[2021-07-28 07:05] LABS: Bedside Glucose 253 mg/dL (70-110)
[2021-07-28 07:20] LABS: Differential Comment SCANNED
[2021-07-28 07:21] LABS: ALB/GLOB Ratio 0.7 RATIO (0.9-2.4); AST(SGOT) 13 U/L (15-37); Alanine Aminotransfer ALT/SGPT 16 U/L (13-56); Albumin, Serum 2.5 g/dL (3.2-5.0); Alkaline Phosphatase 89 U/L (45-117); Anion Gap 4 (5-15); BUN 10 mg/dL (7-18); BUN/Creat Ratio 18.8 RATIO (10-20); Calcium,Total 9.1 mg/dL (8.5-10.1); Chloride 104 mmol/L (98-107); Creatinine, Serum 0.53 mg/dL (0.55-1.02); EST Glomerular Filtration Rate 125 mL/min (>60); Est Glom Filt Rate - Afr Amer 151 mL/min (>60); Estimated Creatinine Clearance 97.43 ml/min; Globulin 3.7 g/dL (2.2-4.2); Glucose 241 mg/dL (74-106); Magnesium 1.9 mg/dL (1.6-2.6); Potassium 3.7 mmol/L (3.5-5.1); Protein, Total 6.2 g/dL (6.4-8.2); Sodium Level 136 mmol/L (136-145)
[2021-07-28] MEDS: Enoxaparin 30 MG/0.3 ML Syringe SC ×2 (08:09→21:39)
[2021-07-28] MEDS: Potassium Chloride Oral Tablet 20 MEQ 40 MEQ PO ×2 (08:09→16:50)
[2021-07-28 08:26] LABS: Bedside Glucose 233 mg/dL (70-110)
[2021-07-28] MEDS: Insulin Lispro 100 UNIT/ML INSULN.PEN 10 UNIT SC (08:33)
[2021-07-28] MEDS: Acetaminophen 325 MG Tablet 650 MG PO (08:55)
[2021-07-28] MEDS: Lisinopril 2.5 MG Tablet PO (11:40)
[2021-07-28] MEDS: 0.9% Normal Saline 1,000 ML 125 ML IV (11:40)
[2021-07-28] MEDS: Glimepiride 2 MG Tablet PO (11:40)
[2021-07-28] MEDS: 0.9% Saline Lock 10 ML Syringe IV ×2 (11:40→21:40)
[2021-07-28 12:10] LABS: Bedside Glucose 219 mg/dL (70-110)
--- NOTE | 2021-07-28 12:50 | PCM.DC.SUM ---
Providers Date of Admission: 07/24/21 Date of Discharge: 07/29/21 Primary Care Physician: Dr. Milind Lamb MD Reason For Visit: DKA, COVID-19 Diagnosis Discharge Diagnosis (1) DKA (diabetic ketoacidosis): Status: Resolved Code(s): E11.10 - Type 2 diabetes mellitus with ketoacidosis without coma Qualifiers: Diabetes mellitus complication detail: without coma Diabetes mellitus type: type 2 Qualified Code(s): E11.10 - Type 2 diabetes mellitus with ketoacidosis without coma (2) COVID-19: Status: Acute Code(s): U07.1 - COVID-19 (3) BRITTNI (acute kidney injury): Status: Resolved Code(s): N17.9 - Acute kidney failure, unspecified Medications at Discharge Home Medications lisinopril 2.5 mg tablet 2.5 mg PO DAILY 07/14/19 sertraline 50 mg tablet 100 mg PO DAILY 07/14/19 insulin glargine U-300 conc 45 unit SQ QHS 06/19/20 metformin 1,000 mg PO BID 06/19/20 Jardiance 25 mg PO DAILY 07/24/21 glimepiride 2 mg PO DAILY 07/24/21 potassium chloride [Klor-Con M20] 40 meq PO DAILY 7 Days #14 tab 07/28/21 Hospital Course Operations None Procedures None Summary of Care Provided Minutes Spent on Discharge: 40 Hospital Course: 61-year-old female past medical history of type II DM who was diagnosed with COVID-19 infection on 07/19/2021. Patient presented with generalized weakness and confusion. She was found to have acute DKA. She was admitted to ICU and managed on insulin drip and DKA protocol. Patient improved. She was transferred to the [facility] floor. She had electrolyte imbalances during this hospital stay and that was replaced. Patient was scheduled to start her back on long-acting insulin. She was monitored. She was seen by PT and OT. She refused to be discharged for subacute rehab. Patient continued to remain improved. She was discharged home. She will need to follow-up with her primary care doctor within 2 weeks Physical Exam Narrative Physical exam: General: Alert, Oriented x3, Cooperative, appears frail HEENT: Atraumatic Oral: Moist Mucosa Neck: Supple Lungs: Diminished to auscultation Cardiovascular: HS I+II, regular, no murmurs Abdomen: Bowel Sounds Present, Soft, Non Tender Extremities: No edema Weight / BMI Weight Weight: 54 kg Body Mass Index (BMI) 20.3 ABG / Lab / Microbiology Data Result Diagrams: 07/28/21 06:34 07/29/21 07:43 Laboratory: Laboratory Results - last 24 hr 07/27/21 16:04: POC Glucose 211 H 07/27/21 21:08: POC Glucose 61 L 07/27/21 21:45: POC Glucose 133 H 07/28/21 05:50: TSH 0.60 07/28/21 06:34: WBC 2.9 L, RBC 4.07 L, Hgb 12.3, Hct 36.2 L, MCV 88.9, MCH 30.2, MCHC 34.0, RDW Std Deviation 41.5, RDW Coeff of Nellie 12.6, Plt Count 137 L, MPV 12.1 H, Immature Gran % (Auto) 0.300, Neut % (Auto) 31.7 L, Lymph % (Auto) 52.4 H, [place] % (Auto) 14.6 H, Eos % (Auto) 0.7, Baso % (Auto) 0.3, Absolute Neuts (auto) 0.9 L, Absolute Lymphs (auto) 1.51, Nucleated RBC % 0, Differential Comment SCANNED 07/28/21 06:34: Sodium 136, Potassium 3.7, Chloride 104, Carbon Dioxide 28.0, Anion Gap 4 L, BUN 10, Creatinine 0.53 L, Estim Creat Clear Calc 97.43, Est GFR (MDRD) Af Amer 151, Est GFR (MDRD) Non-Af 125, BUN/Creatinine Ratio 18.8, Glucose 241 H, Calcium 9.1, Magnesium 1.9, Total Bilirubin 0.30, AST 13 L, ALT 16, Alkaline Phosphatase 89, Total Protein 6.2 L, Albumin 2.5 L, Globulin 3.7, Albumin/Globulin Ratio 0.7 L 07/28/21 06:43: POC Glucose 253 H 07/28/21 08:03: POC Glucose 233 H 07/28/21 11:35: POC Glucose 219 H Microbiology: Microbiology 07/26/21 01:00 Urine, Random Legionella Antigen - Final 07/26/21 01:00 Urine, Random Streptococcus pneumoniae Antigen (M - Final D/C Instructions Discharge Diet: Low fat / Low cholesterol and 2000 mg Sodium Diet Meaningful Use Info Meaningful Use Diagnoses (Choose all that apply): None applicable Discharge Plan Admission Admit Date/Time: 07/24/21 19:04 Primary Reason for Your Visit: Acute DKA Attending Provider: Audrey Sandoval Primary Care Provider: Milind Lamb Instructions Additional Instructions / Restrictions: Continue to use your incentive spirometer. Continue to remain active and eat healthy. Let your doctor know if you develop fever >101.3F or have progressive worsening shortness of breath. Follow-up with your primary care doctor Continue to quarantine for 20 days total from the start of your symptoms. Continue to check your blood sugars 3 times a day. Follow-up with your primary care doctor within 1 to 2 weeks with a log of your blood sugars. Discharge Orders/Prescriptions Prescriptions: New potassium chloride [Klor-Con M20] 20 mEq tablet,ER particles/crystals 40 meq PO DAILY 7 Days Qty: 14 RF: 0 Continued lisinopril 2.5 mg tablet 2.5 mg PO DAILY RF: 0 sertraline 50 mg tablet 100 mg PO DAILY RF: 0 metformin 1,000 MG tablet 1,000 mg PO BID RF: 0 insulin glargine U-300 conc 300 UNIT/ML insulin pen 45 unit SQ QHS RF: 0 glimepiride 2 mg tablet 2 mg PO DAILY RF: 0 Jardiance 25 mg tablet 25 mg PO DAILY RF: 0 Referrals / Follow Up: Milind Lamb MD [Primary Care Provider] - Within 2 Weeks Disposition Disposition (needs filled in before D/C Order can be placed): Home, Self Care Charges/Coding Visit Charges Inpatient E&M: 19477 Disch Hosp
--- NOTE | 2021-07-28 12:51 | PCM.PN.HOSP ---
Subjective Subjective Follow-up on acute DKA: Patient was seen and examined. Patient remained tachycardic. Denies any fever or chills. Objective Data Objective Data Vital Signs: Vital Signs Temp Pulse Resp BP Pulse Ox 97.4 F L 108 H 16 117/76 98 07/28/21 11:38 07/28/21 11:38 07/28/21 11:38 07/28/21 11:38 07/28/21 11:38 Oxygen Delivery Method Room Air Weight: 54 kg Body Mass Index (BMI) 20.3 Intake & Output: Intake and Output for Last 24 Hours 07/26/21 07/27/21 07/28/21 23:59 23:59 23:59 Intake Total 872.5 / 872.5 1550 / 1550 1400 / 1400 Balance 872.5 / 872.5 1550 / 1550 1400 / 1400 Lab / Micro Data Result Diagrams: 07/28/21 06:34 07/28/21 06:34 Labs: Laboratory Results - last 24 hr 07/27/21 16:04: POC Glucose 211 H 07/27/21 21:08: POC Glucose 61 L 07/27/21 21:45: POC Glucose 133 H 07/28/21 05:50: TSH 0.60 07/28/21 06:34: WBC 2.9 L, RBC 4.07 L, Hgb 12.3, Hct 36.2 L, MCV 88.9, MCH 30.2, MCHC 34.0, RDW Std Deviation 41.5, RDW Coeff of Nellie 12.6, Plt Count 137 L, MPV 12.1 H, Immature Gran % (Auto) 0.300, Neut % (Auto) 31.7 L, Lymph % (Auto) 52.4 H, [place] % (Auto) 14.6 H, Eos % (Auto) 0.7, Baso % (Auto) 0.3, Absolute Neuts (auto) 0.9 L, Absolute Lymphs (auto) 1.51, Nucleated RBC % 0, Differential Comment SCANNED 07/28/21 06:34: Sodium 136, Potassium 3.7, Chloride 104, Carbon Dioxide 28.0, Anion Gap 4 L, BUN 10, Creatinine 0.53 L, Estim Creat Clear Calc 97.43, Est GFR (MDRD) Af Amer 151, Est GFR (MDRD) Non-Af 125, BUN/Creatinine Ratio 18.8, Glucose 241 H, Calcium 9.1, Magnesium 1.9, Total Bilirubin 0.30, AST 13 L, ALT 16, Alkaline Phosphatase 89, Total Protein 6.2 L, Albumin 2.5 L, Globulin 3.7, Albumin/Globulin Ratio 0.7 L 07/28/21 06:43: POC Glucose 253 H 07/28/21 08:03: POC Glucose 233 H 07/28/21 11:35: POC Glucose 219 H Micro: Microbiology 07/26/21 01:00 Urine, Random Legionella Antigen - Final 07/26/21 01:00 Urine, Random Streptococcus pneumoniae Antigen (M - Final Physical Exam Narrative Physical exam: General: Alert, Oriented x3, Cooperative, appears frail HEENT: Atraumatic Oral: Moist Mucosa Neck: Supple Lungs: Diminished to auscultation Cardiovascular: HS I+II, regular, no murmurs Abdomen: Bowel Sounds Present, Soft, Non Tender Extremities: No edema Assessment & Plan Assessment/Plan (1) DKA (diabetic ketoacidosis): QUALIFIERS: Diabetes mellitus type: type 2 Diabetes mellitus complication detail: without coma Qualified Code(s): E11.10 - Type 2 diabetes mellitus with ketoacidosis without coma (2) COVID-19: (3) BRITTNI (acute kidney injury): PLAN: 1. Acute DKA likely secondary to acute COVID-19 pneumonia, resolved 2. Tachycardia, persistent, will get EKG TSH is normal, Mg is 1.9, replaced 3. Type 2 DM, HgbA1c 11.8, BS is better controlled Continue on Lantus, premeal insulin and insulin sliding scale with blood glucose checks 4. Acute COVID-19 pneumonia without hypoxia, patient remains not on oxygen CTA of the chest was negative for acute PE showed bilateral infiltrates Continue to hold off on starting Decadron 5. BRITTNI, pre-renal secondary to #1, present on admission, resolved now 6. Hypokalemia/hypophosphatemia/Hypomagnesemia, resolved, recheck in a.m. 7. Hypertension, controlled, continue on lisinopril 8. Anxiety/depression, continue on sertraline 9. DVT prophylaxis with Lovenox subcu Charges/Coding Visit Charges Inpatient E&M: 29522 Subs Hosp L2
--- NOTE | 2021-07-28 12:55 | EKG12_ITS ---
Test Reason : AFIB Blood Pressure : / mmHG Vent. Rate : 099 BPM Atrial Rate : 099 BPM P-R Int : 124 ms QRS Dur : 080 ms QT Int : 352 ms P-R-T Axes : -13 013 017 degrees QTc Int : 451 ms Normal sinus rhythm Normal ECG When compared with ECG of 24-JUL-2021 16:37, No significant change was found Confirmed by VIKRAM RICH, RENETTA ([id number]), editor managing director DOREEN ADAMS ([id number]) on 07/31/2021 10:03:59 AM Referred By: CHRISTOPHER Confirmed By:RENETTA SUE MD
[2021-07-28] MEDS: Empagliflozin 25 MG Tablet PO (13:14)
[2021-07-28 17:15] LABS: Bedside Glucose 206 mg/dL (70-110)
[2021-07-28 22:06] LABS: Bedside Glucose 164 mg/dL (70-110)
[2021-07-29 03:14] VITALS: BP 133/82; PULSE 98; RESP 16; TEMP 36.9; O2SAT 99
[2021-07-29] MEDS: Acetaminophen 325 MG Tablet 650 MG PO (06:34)
[2021-07-29 06:56] LABS: Bedside Glucose 78 mg/dL (70-110)
[2021-07-29 07:58] VITALS: BP 103/73; PULSE 114; RESP 16; TEMP 37.1; O2SAT 97
[2021-07-29 08:34] LABS: ALB/GLOB Ratio 0.7 RATIO (0.9-2.4); AST(SGOT) 15 U/L (15-37); Alanine Aminotransfer ALT/SGPT 13 U/L (13-56); Albumin, Serum 2.8 g/dL (3.2-5.0); Alkaline Phosphatase 101 U/L (45-117); Anion Gap 4 (5-15); BUN 8 mg/dL (7-18); BUN/Creat Ratio 15.3 RATIO (10-20); Calcium,Total 9.5 mg/dL (8.5-10.1); Chloride 103 mmol/L (98-107); Creatinine, Serum 0.52 mg/dL (0.55-1.02); EST Glomerular Filtration Rate 127 mL/min (>60); Est Glom Filt Rate - Afr Amer 154 mL/min (>60); Estimated Creatinine Clearance 100.59 ml/min; Globulin 4.1 g/dL (2.2-4.2); Glucose 104 mg/dL (74-106); Potassium 3.8 mmol/L (3.5-5.1); Protein, Total 6.9 g/dL (6.4-8.2); Sodium Level 136 mmol/L (136-145)
[2021-07-29] MEDS: Potassium Chloride Oral Tablet 20 MEQ 40 MEQ PO (08:52)
[2021-07-29] MEDS: Enoxaparin 30 MG/0.3 ML Syringe SC (08:52)
[2021-07-29] MEDS: Glimepiride 2 MG Tablet PO (08:52)
[2021-07-29] MEDS: Empagliflozin 25 MG Tablet PO (08:53)
[2021-07-29] MEDS: Insulin Lispro 100 UNIT/ML INSULN.PEN SC (11:16)
[2021-07-29 11:33] VITALS: BP 124/81; PULSE 107; RESP 16; TEMP 36.3; O2SAT 100
[2021-07-29 11:50] LABS: Bedside Glucose 176 mg/dL (70-110)
== END 2021-07-29 11:37 | disposition home or self-care (01) | DRG 637 ==
LOC: ED 17:15 → ICU 19:16 → MS3 07-26 14:14
PROVIDERS: Hospitalist; Admitting Provider Internal Medicine; Emergency Provider Emergency Medicine; PCP Family Medicine; Visit Provider Internal Medicine
DX: E11.10 Type 2 diabetes mellitus with ketoacidosis without coma (principal); U07.1 COVID-19; J12.82 Pneumonia due to coronavirus disease 2019; N17.9 Acute kidney failure, unspecified; Z79.4 Long term (current) use of insulin; I10 Essential (primary) hypertension; E87.6 Hypokalemia; F41.9 Anxiety disorder, unspecified; Z51.5 Encounter for palliative care; M54.50 Low back pain, unspecified; F32.A Depression, unspecified; Z66 Do not resuscitate; Z87.891 Personal history of nicotine dependence
CPT/HCPCS: 36415; 71045; 71275; 80048; 80053; 80076; 81025; 82009; 82077; 82550; 82962; 83036; 83605; 83615; 83735; 83880; 84100; 84145; 84443; 85025; 85379; 85384; 86140; 87449; 87635; 93005; 94760; 97166; 99284; J7030; J7040; J7050; Q9967; A4216; J2405; J7799; U0003; U0005

== ENCOUNTER 2022-03-03 17:29 | Inpatient (IN) | payer MEDICAID, SELFPAY ==
[2022-03-03] VITALS (10 sets, daily range): BP systolic 107–166; BP diastolic 57–106; PULSE 79–122; RESP 12–28; TEMP 36.5–36.6; O2SAT 94–100; BMI 23.0; BMI 20.8
--- NOTE | 2022-03-03 17:58 | EKG12_ITS ---
Test Reason : SOB Blood Pressure : / mmHG Vent. Rate : 108 BPM Atrial Rate : 108 BPM P-R Int : 132 ms QRS Dur : 102 ms QT Int : 354 ms P-R-T Axes : 067 052 051 degrees QTc Int : 474 ms Poor data quality, interpretation may be adversely affected Sinus tachycardia Nonspecific ST and T wave abnormality Abnormal ECG Confirmed by MEGAN RICH, JUN ([id number]), supervising editor news reel DOREEN ADAMS ([id number]) on 03/06/2022 8:30:25 AM Referred By: TEE Confirmed By:JUN GUZMAN MD
[2022-03-03 18:05] LABS: Bedside Glucose 362 mg/dL (74-106)
--- NOTE | 2022-03-03 18:05 | EKG12_ITS ---
Test Reason : SOB Blood Pressure : / mmHG Vent. Rate : 107 BPM Atrial Rate : 107 BPM P-R Int : 136 ms QRS Dur : 100 ms QT Int : 354 ms P-R-T Axes : 066 046 052 degrees QTc Int : 472 ms Sinus tachycardia Nonspecific ST and T wave abnormality Abnormal ECG Confirmed by MEGAN RICH, JUN ([id number]), video effects editor JIMMY MEADE ([id number]) on 03/05/2022 6:17:56 AM Referred By: TEE Confirmed By:JUN GUZMAN MD
--- NOTE | 2022-03-03 18:07 | EX.ED.DYSGE1 ---
HPI History of Present Illness Chief Complaint: Shortness of Breath Informant: patient Narrative Narrative: Patient presents with a couple complaints. First complaint is that she hurt her back lifting a heavy box about 3 days ago. She states she lifted it. It started to fall and she quickly jumped to catch it. She has had soreness across her lower back since. It does not radiate down her legs. She denies any bowel or bladder dysfunction. She even denies polyuria despite her other complaints that I will cover. She does not have a history of back problems. She denies fevers chills. Before this box was falling if she caught it, she had no symptoms at all. Patient also states that she just feels very thirsty. Her sugars are high in the 300s. She is on metformin, glimepiride, glargine insulin at night and Jardiance. She denies ever having DKA that she knows of. She is not having abdominal pain but she does have nausea. No chest pain or trouble breathing. She feels very thirsty. PFSH PFSH Home Medications lisinopril 2.5 mg tablet 2.5 mg PO DAILY 07/14/19 [History Last Taken Unknown] sertraline 50 mg tablet 100 mg PO DAILY 07/14/19 [History Last Taken Unknown] insulin glargine U-300 conc 300 unit/mL (1.5 mL) subcutaneous pen 45 unit SQ QHS 06/19/20 [History Last Taken Unknown] metformin 1,000 mg tablet 1,000 mg PO BID 06/19/20 [History Last Taken Unknown] empagliflozin 25 mg tablet (Jardiance) 25 mg PO DAILY 07/24/21 [History Last Taken Unknown] glimepiride 2 mg tablet 2 mg PO DAILY 07/24/21 [History Last Taken Unknown] potassium chloride 20 mEq tablet,extended release(part/cryst) (Klor-Con M) 40 meq PO DAILY 7 days #14 tabs 07/28/21 [Rx Last Taken Unknown] Allergy/AdvReac Type Severity Reaction Status Date / Time No Known Allergies Allergy Verified 03/03/22 17:30 Social History Smoking Status: Former smoker ROS ROS ED Constitutional Constitutional ED: Denies fever(s) Eyes Eyes: Denies blurry vision ENT ENT ED: Reports other Details: She feels her mouth is very dry ; Denies sore throat Cardiovascular Cardiovascular: Denies palpitations or racing heartbeat Respiratory/Chest Respiratory/Chest: Denies cough or dyspnea Gastrointestinal Gastrointestinal: Reports nausea; Denies abdominal pain, diarrhea or vomiting Genitourinary Genitourinary ED: Denies dysuria, hematuria or urinary frequency Musculoskeletal Musculoskeletal: Reports back pain Integumentary Denies rash Neurologic Neurologic: Denies headache(s) Psychiatric Psychiatric: Denies anxiety Endocrine Endocrinology: Reports polydipsia; Denies polyuria Hematologic/Lymphatic Hematologic/Lymphatic: Denies easy bleeding or easy bruising Allergic/Immunologic Allergic/Immunologic ED: Denies urticaria EXAM Physical Exam Const Vital Signs: 03/03/22 17:30 03/03/22 19:10 Temperature 97.7 F L Temperature Source Temporal Pulse Rate 111 H 79 Respiratory Rate 28 H 19 H Blood Pressure 160/69 H 126/76 H Blood Pressure Mean 99 92 Pulse Ox 94 95 Oxygen Delivery Method Room Air Positive well nourished and well developed Constitutional Narrative: Patient is doing heavy deep breathing. Her mouth looks very dry. She is not confused but she does take sometimes repeat questioning to get her to answer. General Appearance ED: well developed HEENT Reports dry mucous membranes Mouth ED: Yes dry mucous membranes Mouth: dry mucous membranes Eyes General Eye ED: Negative for scleral icterus Chest Wall inspection of chest normal Resp clear to auscultation bilaterally Resp Narrative: Breathing is a bit heavier and deeper than I would expect normally. But she denies dyspnea. Auscultation: Negative for rales, rhonchi or wheezes Cardio regular rhythm Rate: tachycardic GI normal to inspection, nondistended, normoactive bowel sounds, non-tender and non-distended Back/Spine no CVA tenderness Back/Spine Narrative: Patient complains of pain across the beltline area of her lower back. I see no skin changes. There is mild tenderness but nothing focal. No buttock or sciatic notch tenderness. Extremity normal to inspection General Extremety ED: Negative for edema or tenderness General Extremity: Negative for edema Neuro oriented x3 Psych mental status grossly normal Psych Narrative: Patient is ANO x3. But she does seem to be preoccupied with discomfort and having a dry mouth. Skin no rashes or lesions noted MDM MDM MDM Narrative Medical decision making narrative: Daughter talk to me. She gives a slightly different story and the patient. Patient states she is taking all her meds. Daughter states she is a long-term alcoholic. She lives with her son who is also an alcoholic. She does anyone fill her meds in the pharmacy much less take them. I have added alcohol level. Her blood work shows she is in DKA. She also has elevated lipase. She admits to nausea but denies vomiting. She has back pain but is very low it does not seem to be likely from pancreatic source. I am giving her more fluids. She will be admitted to the hospital. Hospitalist is on page. I initially thought that she might be in DKA due to Jardiance use. But I not found out she probably is not taking her meds. She may also have problems related to some component of alcoholic ketoacidosis. Her lipase is up but she is not complaining of epigastric pain or recurrent vomiting. However, her daughter states she has a tendency to not tell the truth. We will start insulin drip. I am sending off alcohol level and urinalysis. Lactate is normal but acetone is large. Lab Data Labs: Laboratory Results - last 24 hr 03/03/22 03/03/22 03/03/22 17:44 17:45 17:45 WBC 12.4 H RBC 4.08 L Hgb 12.6 Hct 39.0 MCV 95.6 MCH 30.9 MCHC 32.3 RDW Std Deviation 47.8 H RDW Coeff of Nellie 13.6 Plt Count 233 MPV 11.5 Immature Gran % (Auto) 2.400 H Neut % (Auto) 68.8 Lymph % (Auto) 17.2 L [place] % (Auto) 7.2 Eos % (Auto) 3.9 Baso % (Auto) 0.5 Absolute Neuts (auto) 8.5 H Absolute Lymphs (auto) 2.13 Nucleated RBC % 0 Sodium 135 L Potassium 3.6 Chloride 102 Carbon Dioxide 3.0 L* Anion Gap 30 H BUN 20 H Creatinine 1.26 H Estim Creat Clear Calc 39.77 Est GFR (MDRD) Af Amer 56 L Est GFR (MDRD) Non-Af 46 L BUN/Creatinine Ratio 15.9 Glucose 365 H Lactic Acid Calcium 9.7 Total Bilirubin 0.40 AST 10 L ALT 14 Alkaline Phosphatase 100 Troponin I High Sens 11 Total Protein 7.9 Albumin 4.2 Globulin 3.7 Albumin/Globulin Ratio 1.1 Lipase 1042 H Acetone Level POC Glucose 362 H 03/03/22 03/03/22 17:45 17:45 WBC RBC Hgb Hct MCV MCH MCHC RDW Std Deviation RDW Coeff of Nellie Plt Count MPV Immature Gran % (Auto) Neut % (Auto) Lymph % (Auto) [place] % (Auto) Eos % (Auto) Baso % (Auto) Absolute Neuts (auto) Absolute Lymphs (auto) Nucleated RBC % Sodium Potassium Chloride Carbon Dioxide Anion Gap BUN Creatinine Estim Creat Clear Calc Est GFR (MDRD) Af Amer Est GFR (MDRD) Non-Af BUN/Creatinine Ratio Glucose Lactic Acid 1.2 Calcium Total Bilirubin AST ALT Alkaline Phosphatase Troponin I High Sens Total Protein Albumin Globulin Albumin/Globulin Ratio Lipase Acetone Level LARGE H POC Glucose EKG Initial EKG: Comments: EKG done for tachycardia or read by me shows a sinus rhythm with tachycardic rate at 107. No ventricular ectopy. There is some irregular baseline line and nonspecific ST and T wave change. [place] interval, QRS duration are normal. QTc is toward the longer and at 472 ms. Critical Care Time Critical Care Time: Yes Critical care time (excluding procedures): 30-74 minutes, Discussing w/Patient &/or Family/Electrical Supervisor, Discussing w/Consultants, Arranging Admission or Transfer, Performing Direct Patient Care at Bedside and - (Repeat eval, repeat meds, discussing family and consultants, 40 minutes) Discharge Plan Dx/Rx/DC Orders Clinical Impression: DKA (diabetic ketoacidosis), Acute dehydration, History of alcoholism, Pancreatitis, Acute kidney injury Disposition Disposition: Acute Care [facility]
[2022-03-03] MEDS: 0.9% Normal Saline 1,000 ML 1000 ML IV (18:18)
[2022-03-03] MEDS: Morphine 4 MG/ML Syringe IV (18:18)
[2022-03-03] MEDS: Ondansetron 4 MG/2 ML Vial IV (18:18)
[2022-03-03 18:21] LABS: Absolute Lymphocyte Count 2.13 X10^3/uL (0.83-4.51); Absolute Neutrophil Count 8.5 X10^3/uL (2.0-7.7); Basophil# 0.06 X10^3/uL; Basophil% 0.5 % (0-1); Eosinophil# 0.48 X10^3/uL; Eosinophils% 3.9 % (0-5); Hemoglobin 12.6 g/dL (12.0-15.0); Lymphocyte # 2.13 X10^3/ul (0.83-4.51); Lymphocyte % 17.2 % (19-41); Mean Corp Hgb Conc 32.3 g/dL (32-36); Mean Corpuscular Hgb 30.9 pg (27.0-32.0); Mean Corpuscular Volume 95.6 fL (81-99); Mean Platelet Vol. 11.5 fl (6.2-12.0); Monocyte# 0.89 X10^3/uL; Monocyte% 7.2 % (0-10); NRBC Flagged by Analyzer 0 % (0-5); Neutrophil % 68.8 % (47-70); Platelet Count 233 K/mm3 (150-450); RBC Distribution Width CV 13.6 % (11.6-14.6); RBC Distribution Width SD 47.8 fl (35.1-43.9); Red Blood Count 4.08 M/mm3 (4.2-5.4); White Blood Count 12.4 K/mm3 (4.4-11.0)
--- NOTE | 2022-03-03 18:45 | RAD_ITS ---
STUDY: X-RAY - LUMBAR SPINE REASON FOR EXAM: Female, 61 years old. trauma, pain TECHNIQUE: 3 view(s) of the lumbar spine were obtained. COMPARISON: None FINDINGS: Normal lumbar lordosis. There is no substantial scoliosis. There is a normal alignment of the vertebrae. Normal vertebral bodies and endplates. Normal disc space heights. Gallstones in the right upper quadrant. RAD/Lumbar Spine 2 or 3 Views IMPRESSION: Cholelithiasis. Otherwise unremarkable x-ray examination of the lumbar spine. Electronically Signed: Beverly Houston MD at 19:38 EDT Reading Location ID and State: [id number] / Tel , Service support ,
[2022-03-03 18:51] LABS: ALB/GLOB Ratio 1.1 RATIO (0.9-2.4); AST(SGOT) 10 U/L (15-37); Alanine Aminotransfer ALT/SGPT 14 U/L (13-56); Albumin, Serum 4.2 g/dL (3.2-5.0); Alkaline Phosphatase 100 U/L (45-117); Anion Gap 30 (5-15); BUN 20 mg/dL (7-18); BUN/Creat Ratio 15.9 RATIO (10-20); Calcium,Total 9.7 mg/dL (8.5-10.1); Chloride 102 mmol/L (98-107); Creatinine, Serum 1.26 mg/dL (0.55-1.02); EST Glomerular Filtration Rate 46 mL/min (>60); Est Glom Filt Rate - Afr Amer 56 mL/min (>60); Estimated Creatinine Clearance 39.77 ml/min; Globulin 3.7 g/dL (2.2-4.2); Glucose 365 mg/dL (74-106); Lactic Acid 1.2 mmol/L (0.4-1.9); Lipase 1042 U/L (73-393); Potassium 3.6 mmol/L (3.5-5.1); Protein, Total 7.9 g/dL (6.4-8.2); Sodium Level 135 mmol/L (136-145); Troponin-I HS 11 pg/mL (3.0-54.0)
[2022-03-03] MEDS: 0.9% Normal Saline 1,000 ML 999 ML IV ×2 (19:20→20:56)
--- NOTE | 2022-03-03 19:26 | PCM.HP.STD ---
HPI - General General Date of Admission: 03/03/22 Date of Service: 03/03/22 Chief Complaint: Back pain, nausea. HPI Narrative The patient is a 61 y/o F w/ PMHx: Anxiety and Depression, Diabetes mellitus type II, EtOH Abuse, HTN not taking her medications, Tobacco use, Hx COVID-19 Acute Viral Syndrome 07/19/21 who presents to the [facility] ED on 03/03/22 with history of recent lumbar back discomfort acute on chronic secondary lifting heavy boxes approximately 3 days prior with no radicular pain down her legs nor any alteration of bowel or bladder pattern but incidentally reported significant polyuria. Daughter reports that she has started to drink EtOH again and notes heavy intake. Daughter also reports that she is not taking any of her diabetic medications nor is she even picking them up. She does admit nausea without emesis. She denies diarrhea or abdominal pain given notable elevation of lipase. Work-up in the ED included T97.7, heart rate initially 111 with most recent repeat 79, BP initially 160/69 with most recent repeat 126/76, respiratory rate initially 28 with most recent repeat 19, 94 to 95% room air, CBC with WC 12.4, hemoglobin 12.6, platelet 233 with left shift, CMP with sodium 135, carbon dioxide 3, anion gap 30, BUN/creatinine 20/1.26, glucose 365, lactic acid 1.2, hepatic profile not marked appearing, lipase 1042, acetone level pending upon requested evaluation of patient, lumbar spine plain film pending upon evaluation of patient, rapid COVID antigen negative. In the ED patient ministered 2 L normal saline, morphine 4 mg x 1 as well as Zofran 4 mg x 1. Additional labs pending included urinalysis, INR, ethyl alcohol level upon requested evaluation of patient. [facility] Medical History Anxiety and depression COVID-19 Diabetes mellitus, type 2 ETOH abuse GERD (gastroesophageal reflux disease) HTN (hypertension) Tobacco use Home Medications lisinopril 2.5 mg tablet 2.5 mg PO DAILY 07/14/19 [History Last Taken Unknown] sertraline 50 mg tablet 100 mg PO DAILY 07/14/19 [History Last Taken Unknown] insulin glargine U-300 conc 300 unit/mL (1.5 mL) subcutaneous pen 45 unit SQ QHS 06/19/20 [History Last Taken Unknown] metformin 1,000 mg tablet 1,000 mg PO BID 06/19/20 [History Last Taken Unknown] empagliflozin 25 mg tablet (Jardiance) 25 mg PO DAILY 07/24/21 [History Last Taken Unknown] glimepiride 2 mg tablet 2 mg PO DAILY 07/24/21 [History Last Taken Unknown] potassium chloride 20 mEq tablet,extended release(part/cryst) (Klor-Con M) 40 meq PO DAILY 7 days #14 tabs 07/28/21 [Rx Last Taken Unknown] Allergy/AdvReac Type Severity Reaction Status Date / Time No Known Allergies Allergy Verified 03/03/22 17:30 Family History (Updated 03/03/22 @ 20:[address] Zelda Ibarra MD) Mother Diabetes Father Diabetes Cancer Hx mesothelioma. Surgical History (Updated 03/03/22 @ 20:[address] Zelda Ibarra MD) No history of previous surgery Social History (Updated 03/03/22 @ 20:[address] Zelda Ibarra MD) household members: other details: Lives with her son. Her son is also an alcoholic. Smoking Status: Current some day smoker tobacco type: cigarettes alcohol intake: current alcohol intake frequency: 3 or more drinks per day details: Reports at least 4 beers daily, not forthcoming with use details. substance use type: does not use ROS ROS Narrative Admission Review of Systems: CONSTITUTIONAL: No weight loss, fever, chills, + weakness or fatigue. HEENT: Eyes: No visual loss, blurred vision, double vision or yellow sclerae. Ears, Nose, Throat: No hearing loss, sneezing, congestion, runny nose or sore throat. SKIN: No rash or itching, lesions, wounds. CARDIOVASCULAR: No chest pain, chest pressure or chest discomfort, palpitations, edema, orthopnea, syncopal events. RESPIRATORY: No shortness of breath, cough or sputum, wheezing, hemoptysis. GASTROINTESTINAL: + anorexia, nausea, No vomiting, diarrhea, abdominal pain, melena, BRBPR. GENITOURINARY: No dysuria, frequency, urgency or retention. NEUROLOGICAL: + Confusion, lethargy, No headache, dizziness, syncope, paralysis, ataxia, numbness or tingling in the extremities, focal weakness, change in bowel or bladder control, seizure. MUSCULOSKELETAL: + muscle, back pain, joint pain or stiffness. HEMATOLOGIC: + anemia, bleeding or bruising. LYMPHATICS: No enlarged nodes. No history of splenectomy. PSYCHIATRIC: + history of depression or anxiety. ENDOCRINOLOGIC: No reports of sweating, cold or heat intolerance. + polydipsia. ALLERGIES: No history of asthma, hives, eczema or rhinitis. Vital Signs Vital Signs Vital Signs: 03/03/22 17:30 03/03/22 19:10 Temperature 97.7 F L Temperature Source Temporal Pulse Rate 111 H 79 Respiratory Rate 28 H 19 H Blood Pressure 160/69 H 126/76 H Blood Pressure Mean 99 92 Pulse Ox 94 95 Oxygen Delivery Method Room Air Weight Weight: 130 lb Body Mass Index (BMI) 23.0 Physical Exam Narrative Physical Examination: General: Patient is fatigued and lethargic, awakens to stimuli but quickly falls back asleep, intermittently alert, able to answer orientation questions to self and place but significantly impaired by acute DKA presentation, following some commands, laying in the ED bed, ill-appearing. Skin: Normal color, normal turgor, no icterus, no cyanosis. HEENT: AT/NC, EOMI, PERRLA, dry MM, no carotid bruits or JVD noted. Lungs: Mildly diminished, greater bases, mildly increased respiratory rate but no distress, no rales, ronchi or wheezing. Heart: Mildly tachycardic with regular rhythm; no gallop, rub audible. Abdomen: Soft, very minimal epigastric discomfort with palpation, no right upper quadrant tenderness, no rebound or guarding, no obvious distention, mildly upper active bowel sounds, potentially mild HM Extremities: No cyanosis, clubbing, or edema. Neurological: Patient is fatigued and lethargic, awakens to stimuli but quickly falls back asleep, intermittently alert, able to answer orientation questions to self and place but significantly impaired by acute DKA presentation, following some commands, laying in the ED bed, ill-appearing, cognitive function not baseline intact; pupils equally reactive to light and accommodation, cranial nerves grossly normal but difficult exam given lethargy, moving all 4 extremities, no focal deficits, strength severely globally decreased secondary to acute presentation. Psychiatric: Affect appears flat, fatigued, lethargic, no acute evidence of depressive or anxiety feelings but does have underlying history. Results Lab / Micro Data Result Diagrams: 03/03/22 17:45 03/03/22 17:45 Labs: Laboratory Results - last 24 hr 03/03/22 17:44: POC Glucose 362 H 03/03/22 17:45: WBC 12.4 H, RBC 4.08 L, Hgb 12.6, Hct 39.0, MCV 95.6, MCH 30.9, MCHC 32.3, RDW Std Deviation 47.8 H, RDW Coeff of Nellie 13.6, Plt Count 233, MPV 11.5, Immature Gran % (Auto) 2.400 H, Neut % (Auto) 68.8, Lymph % (Auto) 17.2 L, [place] % (Auto) 7.2, Eos % (Auto) 3.9, Baso % (Auto) 0.5, Absolute Neuts (auto) 8.5 H, Absolute Lymphs (auto) 2.13, Nucleated RBC % 0 03/03/22 17:45: Sodium 135 L, Potassium 3.6, Chloride 102, Carbon Dioxide 3.0 L*, Anion Gap 30 H, BUN 20 H, Creatinine 1.26 H, Estim Creat Clear Calc 39.77, Est GFR (MDRD) Af Amer 56 L, Est GFR (MDRD) Non-Af 46 L, BUN/Creatinine Ratio 15.9, Glucose 365 H, Calcium 9.7, Total Bilirubin 0.40, AST 10 L, ALT 14, Alkaline Phosphatase 100, Troponin I High Sens 11, Total Protein 7.9, Albumin 4.2, Globulin 3.7, Albumin/Globulin Ratio 1.1, Lipase 1042 H 03/03/22 17:45: Lactic Acid 1.2 Micro: Microbiology 03/03/22 18:11 Nasal Secretion SARS-CoV-2 & FLU Antigen (Rapid) - Final Assessment & Plan Assessment/Plan (1) DKA (diabetic ketoacidosis): (2) Acute kidney injury: PLAN: Plan The patient is a 61 y/o F w/ PMHx: Anxiety and Depression, Diabetes mellitus type II, EtOH Abuse, HTN not taking her medications, Tobacco use, Hx COVID-19 Acute Viral Syndrome 07/19/21 who presents to the [facility] ED on 03/03/22 with history of recent lumbar back discomfort acute on chronic secondary lifting heavy boxes approximately 3 days prior with no radicular pain down her legs nor any alteration of bowel or bladder pattern but incidentally reported significant polyuria. #1. Acute Metabolic Encephalopathy secondary to Acute DKA w/ Diabetes mellitus type II: Will admit to the ICU, will administer bicarb supplementation, ABG requested, will continue on insulin drip, check serial K+, glucose w/ IVF changes pending these levels, serial chemistry, obtain mag, phos daily w/ repletion as needed, transition to home SC regimen when gap closed w/ overlap on drip, nutrition consultation. Encouraged diet and insulin regimen compliance. Hemoglobin A1c requested. #2. Acute kidney injury: Secondary to acute presentation, poor intake, heavy EtOH use. Admission BUN/Cr , prior baseline creatinine noted to be 0.5-0.6 primarily. Will hydrate, hold nephrotoxic medications and repeat chemistry in AM. If no improvement would plan FeNa and renal US assessment. #3. Impending Acute EtOH Withdrawal: Will initiate and continue on protocol with taper course of Phenobarbital with hold for sedation especially given #1 presentation, scheduled gabapentin for seizure prophylaxis, as needed Catapres, Bentyl, Vistaril, IV fluids, IV antiemetics, Tylenol as needed for pain. Will consult Case management for assistance. Mag, phos pending. #4. Acute pancreatitis w/ nausea, no reported emesis or specific epigastric pain, could be chronic component: To be cautious especially given DKA presentation will maintain on IVFs, NPO until assure clinically improved, maintain on PPI, IV/po pain control, trend lipase, CMP. Strongly encourage alcohol sobriety with treatment as noted above. #5. Anxiety and depression: We will continue patient home sertraline regimen. #6. Hypertension, uncontrolled: Not taking regimen previously prescribed, given current presentation will maintain on IV as needed hydralazine, add oral regimen once improved. #7. Tobacco Abuse: Encouraged cessation, inpatient consultation per RT, NR if desired. #8. DVT prophylaxis: SCDs, Lovenox. #9. CODE status: Patient does not have healthcare power workers compensation attorney nor living will set up. Daughter and her sister are both present and states she is extremely possessive of her health history and does not want any assistance usually. Discussed CODE status at length including difference between FULL code, DNR-CCA and DNR-CC status. Following discussions about the differences in these status, requested Full Code status although fatigued and lethargic for discussions but family present agree. Advanced Care Planning Face to Face Time: 16 minutes. Charges/Coding Visit Charges Inpatient E&M: 34370 Init Hosp L3 Procedures Hospitalists Procedures: 38813 Advncd Care Plan 30 Min
[2022-03-03 19:33] LABS: International Normalized Ratio 1.1; Prothrombin Time (Protime)PT. 13.4 SECONDS (11.7-14.9)
[2022-03-03 19:37] LABS: Alcohol, Blood (Medical)-Serum < 3.0 mg/dL
[2022-03-03 19:48] LABS: Mucous, Urine 0 SEEN /hpf (<or=2+)
[2022-03-03 19:54] LABS: Color, Urine Straw (Yellow); Glucose, Dipstick 1000 mg/dl (Normal); Leukocyte Esterase-Dipstick 100 /ul (Negative); Nitrite-Dipstick Negative (Negative); Occult Blood-Urine 25 /ul (Negative); Protein-Dipstick 30 mg/dl (Negative); Urine Bilirubin Dipstick Negative (Negative); Urine Clarity Clear (Clear); Urine Urobilinogen Normal (Normal)
[2022-03-03 20:05] LABS: Ketone-Dipstick 150 mg/dl (Negative)
[2022-03-03 20:06] LABS: Bedside Glucose 383 mg/dL (74-106)
[2022-03-03 20:16] LABS: White Blood Cells 0-5 SEEN /hpf (0-5)
[2022-03-03 20:17] LABS: Bacteria 1+ /hpf (None Seen); Red Blood Cells-Urine 0-5 SEEN /hpf (0-5); Squamous Epithelial Cells - UA 0-5 SEEN /hpf (5-10)
[2022-03-03 20:18] LABS: Coarse Granular Cast 5-10 SEEN /lpf (0-5 /lpf); Yeast-Urine RARE /hpf (None Seen)
[2022-03-03] MEDS: oxyCODONE 5 MG Tablet PO (20:55)
[2022-03-03] MEDS: traZODone 50 MG Tablet PO (20:59)
[2022-03-03] MEDS: Sodium Bicarbonate 8.4% 50 ML Syringe 50 MEQ IV ×4 (21:43→23:53)
[2022-03-03] MEDS: Morphine 2 MG/ML Syringe IV (22:05)
[2022-03-03] MEDS: 0.9% Saline Lock 10 ML Syringe IV ×3 (22:07→23:16)
[2022-03-03] MEDS: Dext 5%-0.45% NS 1,000 ML 150 ML IV (22:17)
[2022-03-03 22:30] LABS: Allen Test Positive; Base Excess -25 mmol/L (-2 to +2); Bicarbonate 4.7 mmol/L (22-26); Blood Gas Specimen Type ART; FI02 21; PO2 123 mmHG (75-100); SITE L Radial; SO2 97 % (95-99); Total Carbon Dioxide 5 mmol/L; pCO2 15.1 mmHg (35-45)
[2022-03-03 22:45] LABS: BUN 18 mg/dL (7-18); BUN/Creat Ratio 16.7 RATIO (10-20); Chloride 114 mmol/L (98-107); Creatinine, Serum 1.08 mg/dL (0.55-1.02); EST Glomerular Filtration Rate 55 mL/min (>60); Est Glom Filt Rate - Afr Amer 67 mL/min (>60); Glucose 244 mg/dL (74-106); Magnesium 2.4 mg/dL (1.6-2.6); Phosphorus 3.4 mg/dL (2.5-4.9); Potassium 3.7 mmol/L (3.5-5.1); Sodium Level 142 mmol/L (136-145)
[2022-03-03 22:50] LABS: Allen Test Positive; Base Excess -29 mmol/L (-2 to +2); Bicarbonate 2.9 mmol/L (22-26); Blood Gas Specimen Type ART; FI02 21; PO2 147 mmHG (75-100); SITE L Radial; SO2 97 % (95-99); Total Carbon Dioxide < 5 mmol/L; pCO2 13.7 mmHg (35-45); pH 6.94 (7.35-7.45)
[2022-03-04] VITALS (27 sets, daily range): BP systolic 97–145; BP diastolic 49–78; PULSE 82–122; RESP 11–19; TEMP 36.6–37.1; O2SAT 92–100
[2022-03-04 01:21] LABS: Allen Test Positive; Base Excess -17 mmol/L (-2 to +2); Bicarbonate 10.7 mmol/L (22-26); Blood Gas Specimen Type ART; FI02 21; PO2 89 mmHG (75-100); SITE L Radial; SO2 96 % (95-99); Total Carbon Dioxide 12 mmol/L; pCO2 24.5 mmHg (35-45); pH 7.25 (7.35-7.45)
[2022-03-04 02:18] LABS: Anion Gap 20 (5-15); BUN 16 mg/dL (7-18); BUN/Creat Ratio 16.9 RATIO (10-20); Calcium,Total 8.1 mg/dL (8.5-10.1); Chloride 116 mmol/L (98-107); Creatinine, Serum 0.95 mg/dL (0.55-1.02); EST Glomerular Filtration Rate 64 mL/min (>60); Est Glom Filt Rate - Afr Amer 77 mL/min (>60); Estimated Creatinine Clearance 52.74 ml/min; Glucose 191 mg/dL (74-106); Potassium 2.9 mmol/L (3.5-5.1); Sodium Level 146 mmol/L (136-145)
[2022-03-04 03:36] LABS: Bedside Glucose 200 mg/dL (74-106)
[2022-03-04 03:36] LABS: Bedside Glucose 154 mg/dL (74-106)
[2022-03-04 03:36] LABS: Bedside Glucose 172 mg/dL (74-106)
[2022-03-04 03:36] LABS: Bedside Glucose 207 mg/dL (74-106)
[2022-03-04 03:36] LABS: Bedside Glucose 247 mg/dL (74-106)
[2022-03-04] MEDS: Potassium Chloride 10mEq/100mL 10 MEQ/100 ML IV.SOLN. 100 MEQ IV BOLUS ×6 (03:41→09:48)
[2022-03-04] MEDS: Dext 5%-0.45% NS 1,000 ML 150 ML IV (05:00)
[2022-03-04 05:51] LABS: Absolute Lymphocyte Count 1.54 X10^3/uL (0.83-4.51); Absolute Neutrophil Count 5.3 X10^3/uL (2.0-7.7); Basophil# 0.02 X10^3/uL; Basophil% 0.3 % (0-1); Hemoglobin 11.1 g/dL (12.0-15.0); Lymphocyte # 1.54 X10^3/ul (0.83-4.51); Lymphocyte % 19.4 % (19-41); Mean Corp Hgb Conc 33.6 g/dL (32-36); Mean Corpuscular Hgb 30.7 pg (27.0-32.0); Mean Corpuscular Volume 91.2 fL (81-99); Mean Platelet Vol. 11.2 fl (6.2-12.0); Monocyte# 0.97 X10^3/uL; Monocyte% 12.2 % (0-10); NRBC Flagged by Analyzer 0 % (0-5); Neutrophil # 5.27 X10^3/uL (2.7-7.7); Neutrophil % 66.3 % (47-70); POSITIVE COUNT YES; Platelet Count 151 K/mm3 (150-450); RBC Distribution Width CV 13.6 % (11.6-14.6); RBC Distribution Width SD 45.3 fl (35.1-43.9); Red Blood Count 3.62 M/mm3 (4.2-5.4); White Blood Count 7.9 K/mm3 (4.4-11.0)
[2022-03-04 05:52] LABS: Differential Indicated SCAN CRITERIA MET
[2022-03-04 06:08] LABS: ALB/GLOB Ratio 0.9 RATIO (0.9-2.4); AST(SGOT) 12 U/L (15-37); Alanine Aminotransfer ALT/SGPT 11 U/L (13-56); Alkaline Phosphatase 79 U/L (45-117); Anion Gap 13 (5-15); BUN 15 mg/dL (7-18); BUN/Creat Ratio 12.9 RATIO (10-20); Calcium,Total 7.9 mg/dL (8.5-10.1); Chloride 116 mmol/L (98-107); Creatinine, Serum 1.16 mg/dL (0.55-1.02); EST Glomerular Filtration Rate 51 mL/min (>60); Est Glom Filt Rate - Afr Amer 61 mL/min (>60); Globulin 3.2 g/dL (2.2-4.2); Glucose 139 mg/dL (74-106); Lipase 497 U/L (73-393); Potassium 2.9 mmol/L (3.5-5.1); Protein, Total 6.2 g/dL (6.4-8.2); Sodium Level 146 mmol/L (136-145)
--- NOTE | 2022-03-04 06:56 | CON.PCM.CC_ITS ---
Assessment & Plan Assessment/Plan (1) DKA (diabetic ketoacidosis): (2) Acute kidney injury: (3) Pancreatitis: PLAN: Plan RECOMMENDATIONS: 1. Continue with DKA protocol 2. No further amps of bicarbonate 3. Hold phenobarbital for now. Continue CIWA 4. Aggressive electrolyte repletion as indicated 5. Potentially transition to subcu insulin later today IMPRESSIONS: 1. Acute metabolic encephalopathy secondary to acute DKA with insulin- dependent diabetes mellitus Patient with significant acidosis on presentation. Clinical suspicion for both a keto and diabetic acidosis. No further bicarbonates would be indicated. Patient is not reporting any recent alcohol. Patient is on Jardiance at baseline. We will continue with DKA protocol. Potentially transition to subcu insulin when able to take p.o. and gap is closed x2. 2. Acute kidney injury Patient is on baseline DAVID inhibitor and appeared significantly volume depleted on presentation. Baseline creatinine appears to be approximately 0.5. Patient is responding to hydration well. No need for renal ultrasound and urine electrolytes in my opinion. Patient with adequate urine output. No indication for renal replacement therapy at this time. 3. Acute pancreatitis secondary to alcohol versus DKA Variable history on alcohol ingestion. Patient is on the CIWA protocol. Patient responding well to IV hydration. Likely not necessary to continue monitoring levels. Attempt to address sobriety once patient is more appropriate. 4. Anxiety/depression/hypertension/tobacco abuse/conflicting history Complicates care, management, recovery and prognosis. DAVID inhibitor held secondary to problem #2. Attempt to clarify alcohol status when patient becomes more appropriate. HPI Consult Data Date of Consult: 03/04/22 HPI Narrative Reason for Consultation: DKA HPI Narrative: ROBERT BRUCE is a 61 F, with past medical history listed below, who presents to [facility] on 03/03/2022 secondary to lower back soreness, thirst and elevated blood sugars. Patient reportedly had hurt her back at work lifting a heavy box 3 days ago. Patient denied any bowel or bladder dysfunction at that time. Patient states she was urinating appropriately. Patient denied any fevers or chills. Patient does have a history of diabetes mellitus and had told me that she had her last DKA in July secondary to COVID-19. To the ER physician, she complained of nausea without abdominal pain and no history of DKA. Patient is on insulin at baseline. In the ER, patient was afebrile, but tachycardic to 111 bpm. Patient's blood pressures were elevated at 160/69 and saturating well on room air. Patient reportedly appeared very dry. Laboratory data showed a white blood cell count of 12.4, hemoglobin of 12.6 and platelets of 233. Potassium was 3.6 with a bicarb of 3 and creatinine of 1.26. Glucose was elevated at 365 and a lipase of 1042. Lactate was within normal limits, but patient did have a large acetone level. EKG showed sinus tachycardia with a QTC of 472 ms. Patient was given aggressive fluid resuscitation and started on insulin drip. Alcohol level and urinalysis were subsequently sent and were negative. Patient was then admitted to the intensive care unit for further evaluation. Overnight, the hospitalist did order 4 A of bicarb secondary to acidosis. Patient had her phenobarb dose held by nursing secondary to mental status. Patient reportedly had told the nurses and myself that she has not drank in 2 weeks because she did not feel good. Patient's daughter reportedly states that she has had a long history of alcoholism. Patient is not able to provide any information about previous withdrawal. Patient does state that she was last in DKA in July secondary to COVID-19. Patient does complain of low back pain, but states this has not changed in character or intensity since the ER. Review of systems otherwise negative from a constitutional, HEENT, respiratory, cardiovascular, GI, genitourinary, musculoskeletal, skin, neurologic, psychiatric and hematologic system unless stated above. PFSH Medical History Anxiety and depression COVID-19 Diabetes mellitus, type 2 ETOH abuse GERD (gastroesophageal reflux disease) HTN (hypertension) Tobacco use Home Medications lisinopril 2.5 mg tablet 2.5 mg PO DAILY 07/14/19 [History Last Taken Unknown] sertraline 50 mg tablet 100 mg PO DAILY 07/14/19 [History Last Taken Unknown] insulin glargine U-300 conc 300 unit/mL (1.5 mL) subcutaneous pen 45 unit SQ QHS 06/19/20 [History Last Taken Unknown] metformin 1,000 mg tablet 1,000 mg PO BID 06/19/20 [History Last Taken Unknown] empagliflozin 25 mg tablet (Jardiance) 25 mg PO DAILY 07/24/21 [History Last Taken Unknown] glimepiride 2 mg tablet 2 mg PO DAILY 07/24/21 [History Last Taken Unknown] potassium chloride 20 mEq tablet,extended release(part/cryst) (Klor-Con M) 40 meq PO DAILY 7 days #14 tabs 07/28/21 [Rx Last Taken Unknown] Allergy/AdvReac Type Severity Reaction Status Date / Time No Known Allergies Allergy Verified 03/03/22 17:30 Family History Mother Diabetes Father Diabetes Cancer Hx mesothelioma. Surgical History No history of previous surgery Social History household members: other details: Lives with her son. Her son is also an alcoholic. Smoking Status: Current some day smoker tobacco type: cigarettes alcohol intake: current alcohol intake frequency: 3 or more drinks per day details: Reports at least 4 beers daily, not forthcoming with use details. substance use type: does not use ROS ROS Narrative See HPI Physical Exam Const no apparent distress Constitutional Narrative: Appears older than stated age General Appearance: cooperative, well developed and lethargic HEENT normocephalic, head/scalp atraumatic and moist oral mucous membranes Eyes PERRL and EOMs intact bilaterally Eyes Narrative: No glasses in place Neck full ROM and no lymphadenopathy Chest inspection of chest normal Resp normal respiratory effort and no use of accessory muscles Effort and Inspection: able to speak in complete sentences Auscultation: clear to auscultation bilaterally; Negative for rales, rhonchi or wheezes Percussion: Negative for dullness Cardio regular rhythm, S1 normal heart sound, S2 normal heart sound, no murmurs, no rub and no gallops Rate: tachycardic GI normal to inspection, nondistended, normoactive bowel sounds Palpation: Negative for tender, guarding or ascites no CVA tenderness Extremity no clubbing, cyanosis or edema Skin no rashes or lesions noted Neuro oriented x3, CN's II-XII intact bilaterally, moves all extremities and no focal motor deficits Psych Mood & Affect: flat affect Lab / Micro Data Attestation: I reviewed the patient's lab results. Result Diagrams: 03/04/22 05:30 03/04/22 05:30 Labs: Laboratory Results - last 24 hr 03/03/22 17:44: POC Glucose 362 H 03/03/22 17:45: WBC 12.4 H, RBC 4.08 L, Hgb 12.6, Hct 39.0, MCV 95.6, MCH 30.9, MCHC 32.3, RDW Std Deviation 47.8 H, RDW Coeff of Nellie 13.6, Plt Count 233, MPV 11.5, Immature Gran % (Auto) 2.400 H, Neut % (Auto) 68.8, Lymph % (Auto) 17.2 L, [place] % (Auto) 7.2, Eos % (Auto) 3.9, Baso % (Auto) 0.5, Absolute Neuts (auto) 8.5 H, Absolute Lymphs (auto) 2.13, Nucleated RBC % 0 03/03/22 17:45: Sodium 135 L, Potassium 3.6, Chloride 102, Carbon Dioxide 3.0 L* , Anion Gap 30 H, BUN 20 H, Creatinine 1.26 H, Estim Creat Clear Calc 39.77, Est GFR (MDRD) Af Amer 56 L, Est GFR (MDRD) Non-Af 46 L, BUN/Creatinine Ratio 15.9, Glucose 365 H, Calcium 9.7, Total Bilirubin 0.40, AST 10 L, ALT 14, Alkaline Phosphatase 100, Troponin I High Sens 11, Total Protein 7.9, Albumin 4.2, Globulin 3.7, Albumin/Globulin Ratio 1.1, Lipase 1042 H 03/03/22 17:45: Acetone Level LARGE H 03/03/22 17:45: Lactic Acid 1.2 03/03/22 17:45: PT 13.4, INR 1.1 03/03/22 17:45: Ethyl Alcohol < 3.0 03/03/22 19:40: Urine Color Straw, Urine Clarity Clear, Urine pH 5.0, Ur Specific [place] 1.020, Urine Protein 30 H, Urine Glucose (UA) 1000 H, Urine Ketones 150 A*, Urine Occult Blood 25 H, Urine Nitrite Negative, Urine Bilirubin Negative, Urine Urobilinogen Normal, Ur Leukocyte Esterase 100 H, Urine RBC 0-5 SEEN, Urine WBC 0-5 SEEN, Ur Squamous Epith Cells 0-5 SEEN, Urine Bacteria 1+, Coarse Granular Casts 5-10 SEEN, Urine Mucus 0 SEEN, Urine Yeast RARE 03/03/22 19:47: POC Glucose 383 H 03/03/22 21:04: POC Glucose 247 H 03/03/22 21:50: Sodium 142, Potassium 3.7, Chloride 114 H, Carbon Dioxide 4.0 L* , Anion Gap TNP, BUN 18, Creatinine 1.08 H, Estim Creat Clear Calc 46.40, Est GFR (MDRD) Af Amer 67, Est GFR (MDRD) Non-Af 55 L, BUN/Creatinine Ratio 16.7, Glucose 244 H, Calcium 8.0 L, Phosphorus 3.4, Magnesium 2.4 03/03/22 22:13: POC Glucose 207 H 03/03/22 23:11: POC Glucose 200 H 03/04/22 01:04: POC Glucose 172 H 03/04/22 01:35: Sodium 146 H, Potassium 2.9 L, Chloride 116 H, Carbon Dioxide 10.0 L, Anion Gap 20 H, BUN 16, Creatinine 0.95, Estim Creat Clear Calc 52.74, Est GFR (MDRD) Af Amer 77, Est GFR (MDRD) Non-Af 64, BUN/Creatinine Ratio 16.9, Glucose 191 H, Calcium 8.1 L 03/04/22 03:00: POC Glucose 154 H 03/04/22 05:30: WBC 7.9, RBC 3.62 L, Hgb 11.1 L, Hct 33.0 L, MCV 91.2, MCH 30.7, MCHC 33.6, RDW Std Deviation 45.3 H, RDW Coeff of Nellie 13.6, Plt Count 151, MPV 11.2, Immature Gran % (Auto) 1.800 H, Neut % (Auto) 66.3, Lymph % (Auto) 19.4, [place] % (Auto) 12.2 H, Eos % (Auto) 0.0, Baso % (Auto) 0.3, Absolute Neuts (auto) 5.3, Absolute Lymphs (auto) 1.54, Nucleated RBC % 0 03/04/22 05:30: Sodium 146 H, Potassium 2.9 L, Chloride 116 H, Carbon Dioxide 17.0 L, Anion Gap 13, BUN 15, Creatinine 1.16 H, Estim Creat Clear Calc 43.20, Est GFR (MDRD) Af Amer 61, Est GFR (MDRD) Non-Af 51 L, BUN/Creatinine Ratio 12.9, Glucose 139 H, Calcium 7.9 L, Total Bilirubin 0.40, AST 12 L, ALT 11 L, Alkaline Phosphatase 79, Total Protein 6.2 L, Albumin 3.0 L, Globulin 3.2, Albumin/Globulin Ratio 0.9, Lipase 497 H Micro: Microbiology 03/03/22 18:11 Nasal Secretion SARS-CoV-2 & FLU Antigen (Rapid) - Final ABG Data ABG results: ABG 03/03/22 03/03/22 03/04/22 20:08 22:22 01:17 Specimen Type ART ART ART Sample Site L Radial L Radial L Radial pH 6.94 L* 7.10 L* 7.25 L Bicarbonate Actual 2.9 L 4.7 L 10.7 L Total CO2 < 5 5 12 Base Excess -29 L -25 L -17 L O2 Saturation 97 97 96 O2 % 21 21 21 ABG pCO2 13.7 L* 15.1 L* 24.5 L ABG pO2 147 H 123 H 89 Isac Test Positive Positive Positive Crit Call To/Read Back Yes Yes Blood Gas Notified Whom white white Attestation: I personally reviewed and interpreted this ABG as follows: (Multiple ABG showing partially compensated metabolic acidosis with normal AA gradient) Rhythm Strip Rhythm Strip: Sinus Tach Rate: 102 Ectopy: None Radiology Impression Lumbar Spine X-Ray 03/03/22 18:45 IMPRESSION: Cholelithiasis. Otherwise unremarkable x-ray examination of the lumbar spine. Electronically Signed: Beverly Houston MD at 19:38 EDT Reading Location ID and State: [id number] / Tel , Service support , Charges/Coding Visit Charges Inpatient E&M: 19848 Init Hosp L2
[2022-03-04 07:16] LABS: Bedside Glucose 129 mg/dL (74-106)
[2022-03-04 07:16] LABS: Bedside Glucose 142 mg/dL (74-106)
[2022-03-04 07:16] LABS: Bedside Glucose 126 mg/dL (74-106)
--- NOTE | 2022-03-04 07:16 | PN.HOSP_ITS ---
Subjective Subjective Follow-up on acute DKA: Patient seen and examined. She remained on insulin drip at the time of being seen. Denied any new complaints. Stated that her back pain was still present in the low back region. Denies any tingling or numbness in her lower extremity or incontinence of urine or stool. Objective Data Objective Data Vital Signs: Vital Signs Temp Pulse Resp BP Pulse Ox O2 Del Method 98.8 F 92 18 103/58 L 99 Room Air 03/04/22 04:00 03/04/22 06:00 03/04/22 06:00 03/04/22 06:00 03/04/22 06:00 03/04/22 06:00 Oxygen Delivery Method Room Air Weight: 52.7 kg Body Mass Index (BMI) 20.8 Intake & Output: Intake and Output for Last 24 Hours 03/02/22 03/03/22 03/04/22 23:59 23:59 23:59 Intake Total 3122.64 / 3124.84 1223.15 / 1223.15 Output Total 2750 / 2750 Balance 3122.64 / 3124.84 -1526.85 / -1526.85 Lab / Micro Data Result Diagrams: 03/04/22 05:30 03/04/22 09:30 Labs: Laboratory Results - last 24 hr 03/03/22 17:44: POC Glucose 362 H 03/03/22 17:45: WBC 12.4 H, RBC 4.08 L, Hgb 12.6, Hct 39.0, MCV 95.6, MCH 30.9, MCHC 32.3, RDW Std Deviation 47.8 H, RDW Coeff of Nellie 13.6, Plt Count 233, MPV 11.5, Immature Gran % (Auto) 2.400 H, Neut % (Auto) 68.8, Lymph % (Auto) 17.2 L, [place] % (Auto) 7.2, Eos % (Auto) 3.9, Baso % (Auto) 0.5, Absolute Neuts (auto) 8.5 H, Absolute Lymphs (auto) 2.13, Nucleated RBC % 0 03/03/22 17:45: Sodium 135 L, Potassium 3.6, Chloride 102, Carbon Dioxide 3.0 L* , Anion Gap 30 H, BUN 20 H, Creatinine 1.26 H, Estim Creat Clear Calc 39.77, Est GFR (MDRD) Af Amer 56 L, Est GFR (MDRD) Non-Af 46 L, BUN/Creatinine Ratio 15.9, Glucose 365 H, Calcium 9.7, Total Bilirubin 0.40, AST 10 L, ALT 14, Alkaline Phosphatase 100, Troponin I High Sens 11, Total Protein 7.9, Albumin 4.2, Globulin 3.7, Albumin/Globulin Ratio 1.1, Lipase 1042 H 03/03/22 17:45: Acetone Level LARGE H 03/03/22 17:45: Lactic Acid 1.2 03/03/22 17:45: PT 13.4, INR 1.1 03/03/22 17:45: Ethyl Alcohol < 3.0 03/03/22 19:40: Urine Color Straw, Urine Clarity Clear, Urine pH 5.0, Ur Specific [place] 1.020, Urine Protein 30 H, Urine Glucose (UA) 1000 H, Urine Ketones 150 A*, Urine Occult Blood 25 H, Urine Nitrite Negative, Urine Bilirubin Negative, Urine Urobilinogen Normal, Ur Leukocyte Esterase 100 H, Urine RBC 0-5 SEEN, Urine WBC 0-5 SEEN, Ur Squamous Epith Cells 0-5 SEEN, Urine Bacteria 1+, Coarse Granular Casts 5-10 SEEN, Urine Mucus 0 SEEN, Urine Yeast RARE 03/03/22 19:47: POC Glucose 383 H 03/03/22 21:04: POC Glucose 247 H 03/03/22 21:50: Sodium 142, Potassium 3.7, Chloride 114 H, Carbon Dioxide 4.0 L* , Anion Gap TNP, BUN 18, Creatinine 1.08 H, Estim Creat Clear Calc 46.40, Est GFR (MDRD) Af Amer 67, Est GFR (MDRD) Non-Af 55 L, BUN/Creatinine Ratio 16.7, Glucose 244 H, Calcium 8.0 L, Phosphorus 3.4, Magnesium 2.4 03/03/22 22:13: POC Glucose 207 H 03/03/22 23:11: POC Glucose 200 H 03/04/22 01:04: POC Glucose 172 H 03/04/22 01:35: Sodium 146 H, Potassium 2.9 L, Chloride 116 H, Carbon Dioxide 10.0 L, Anion Gap 20 H, BUN 16, Creatinine 0.95, Estim Creat Clear Calc 52.74, Est GFR (MDRD) Af Amer 77, Est GFR (MDRD) Non-Af 64, BUN/Creatinine Ratio 16.9, Glucose 191 H, Calcium 8.1 L 03/04/22 03:00: POC Glucose 154 H 03/04/22 04:06: POC Glucose 142 H 03/04/22 05:00: POC Glucose 129 H 03/04/22 05:30: WBC 7.9, RBC 3.62 L, Hgb 11.1 L, Hct 33.0 L, MCV 91.2, MCH 30.7, MCHC 33.6, RDW Std Deviation 45.3 H, RDW Coeff of Nellie 13.6, Plt Count 151, MPV 11.2, Immature Gran % (Auto) 1.800 H, Neut % (Auto) 66.3, Lymph % (Auto) 19.4, [place] % (Auto) 12.2 H, Eos % (Auto) 0.0, Baso % (Auto) 0.3, Absolute Neuts (auto) 5.3, Absolute Lymphs (auto) 1.54, Nucleated RBC % 0 03/04/22 05:30: Sodium 146 H, Potassium 2.9 L, Chloride 116 H, Carbon Dioxide 17.0 L, Anion Gap 13, BUN 15, Creatinine 1.16 H, Estim Creat Clear Calc 43.20, Est GFR (MDRD) Af Amer 61, Est GFR (MDRD) Non-Af 51 L, BUN/Creatinine Ratio 12.9, Glucose 139 H, Calcium 7.9 L, Total Bilirubin 0.40, AST 12 L, ALT 11 L, Alkaline Phosphatase 79, Total Protein 6.2 L, Albumin 3.0 L, Globulin 3.2, Albumin/Globulin Ratio 0.9, Lipase 497 H 03/04/22 06:56: POC Glucose 126 H Micro: Microbiology 03/03/22 18:11 Nasal Secretion SARS-CoV-2 & FLU Antigen (Rapid) - Final ABG Data ABG results: ABG 03/03/22 03/03/22 03/04/22 20:08 22:22 01:17 Specimen Type ART ART ART Sample Site L Radial L Radial L Radial pH 6.94 L* 7.10 L* 7.25 L Bicarbonate Actual 2.9 L 4.7 L 10.7 L Total CO2 < 5 5 12 Base Excess -29 L -25 L -17 L O2 Saturation 97 97 96 O2 % 21 21 21 ABG pCO2 13.7 L* 15.1 L* 24.5 L ABG pO2 147 H 123 H 89 Isac Test Positive Positive Positive Crit Call To/Read Back Yes Yes Blood Gas Notified Whom white white Radiography Diagnostic Testing: Radiology Impression Lumbar Spine X-Ray 03/03/22 18:45 IMPRESSION: Cholelithiasis. Otherwise unremarkable x-ray examination of the lumbar spine. Electronically Signed: Beverly Houston MD at 19:38 EDT , Rhythm Strip Rhythm Strip: Sinus Tach Rate: 102 Ectopy: None Physical Exam Narrative Physical exam: General: Alert, Oriented x3, Cooperative, appears unwell, slightly lethargic HEENT: Atraumatic Oral: Very dry oral mucosa Neck: Supple Lungs: Diminished to auscultation Cardiovascular: HS I+II, regular, no murmurs Abdomen: Bowel Sounds Present, Soft, Non Tender Extremities: No edema Skin: No rashes, No breakdown Neurological: Grossly intact Psych/Mental Status: Appropriate Assessment & Plan Assessment/Plan (1) DKA (diabetic ketoacidosis): (2) Acute kidney injury: PLAN: Plan 1. Acute DKA, improving, on insulin drip Patient has history of type II DM, poorly controlled, HbA1c is 13.4 Transition whether gap is closed Continue to monitor per DKA protocol 2. Acute Metabolic Encephalopathy secondary to Acute DKA , appears slightly lethargic Continue to monitor 3. Acute kidney injury, likely prerenal secondary to 1 Slightly improved, continue on IV fluids, repeat blood work in a.m. 4. Hypokalemia, replace, recheck in a.m. 5. Low back pain, lumbar spine x-ray unremarkable, likely musculoskeletal We will try Lidoderm patches 6. Anxiety/depression, continue Zoloft 7. Hypertension, relatively hypotensive now, continue to monitor 8. Nicotine dependence, advised to quit 9. DVT PPx- Lovenox SC Charges/Coding Visit Charges Inpatient E&M: 45885 Subs Hosp L2
[2022-03-04 07:17] LABS: Platelet Morphology CLUMPED
[2022-03-04 07:21] LABS: Hemoglobin A1c 13.4 % (3.8-5.6)
[2022-03-04 08:25] LABS: Bedside Glucose 122 mg/dL (74-106)
[2022-03-04 09:20] LABS: Bedside Glucose 104 mg/dL (74-106)
[2022-03-04] MEDS: Lidocaine 5% Patch 1 PATCH TOPICAL (09:42)
[2022-03-04] MEDS: Enoxaparin 40 MG/0.4 ML Syringe SC (09:45)
[2022-03-04] MEDS: Folic Acid 1 MG Tablet PO (09:47)
[2022-03-04] MEDS: Sertraline 100 MG Tablet PO (09:47)
[2022-03-04] MEDS: Thiamine Hydrochloride 100 MG Tablet PO (09:48)
[2022-03-04 10:20] LABS: Anion Gap 8 (5-15); BUN 14 mg/dL (7-18); BUN/Creat Ratio 13.2 RATIO (10-20); Calcium,Total 8.1 mg/dL (8.5-10.1); Chloride 117 mmol/L (98-107); Creatinine, Serum 1.06 mg/dL (0.55-1.02); EST Glomerular Filtration Rate 56 mL/min (>60); Est Glom Filt Rate - Afr Amer 68 mL/min (>60); Estimated Creatinine Clearance 47.27 ml/min; Glucose 116 mg/dL (74-106); Potassium 3.3 mmol/L (3.5-5.1); Sodium Level 144 mmol/L (136-145)
[2022-03-04 10:20] LABS: Bedside Glucose 113 mg/dL (74-106)
[2022-03-04] MEDS: Dext 5%-0.45% NS 1,000 ML 200 ML IV ×2 (10:51→15:54)
[2022-03-04] MEDS: Acetaminophen 325 MG Tablet 650 MG PO (10:57)
[2022-03-04 11:20] LABS: Bedside Glucose 100 mg/dL (74-106)
--- NOTE | 2022-03-04 11:55 | CASEMGMT ---
JEFFRY TRINIDAD Face to Face with patient for initial transition planning/care coordination assessment. RN CM introduced self and role at [facility]. Patient lying in bed, alert and oriented. Patient willing to participate in assessment and is able to answer all questions appropriately. Care providers, pharmacy, and demographics verified. Patient wishes to discharge home, denies need for home health at this time. Patient states she has no further needs or concerns at this time. CM to follow for discharge planning needs that may arise. PCP: Adonis Specialists: none [facility]erred [facility]acy[facility] Insurance: [employer] Prescription Benefit: yes Living Will/HPOA: none LNOK: son, daughter Living Arrangements: Patient lives with son in a single story duplex with 1 steps to enter. Patient states is independent Transportation: self, son DME/HHC: Patient states she has glucometer with supplies and grab bars. Patient denies previous HHC or SNF. Patient states she was drinking 4 beers/day but hasn't drank in the last couple of weeks. Patient denies resources at this time. Denies smoking or other drug use. Patient states she has not been checking blood sugars as she should, stating she forgets in the morning. RN CM discuss Patient Link program and patient voiced interest. RN CM sent referral to [facility] requesting follow-up. Disposition Plan: Patient to discharge home with family support and follow-up plans in place. Jelena EUCEDA, RN, CM
[2022-03-04] MEDS: Insulin Glargine-YFGN 100 UNIT/ML Pen SC (12:07)
[2022-03-04 12:26] LABS: Bedside Glucose 89 mg/dL (74-106)
[2022-03-04 14:45] LABS: Bedside Glucose 235 mg/dL (74-106)
[2022-03-04] MEDS: Insulin Lispro 100 UNIT/ML INSULN.PEN SC ×2 (15:58→21:01)
[2022-03-04 16:11] LABS: Bedside Glucose 292 mg/dL (74-106)
[2022-03-04] MEDS: 0.9% Saline Lock 10 ML Syringe IV (21:00)
[2022-03-04] MEDS: traZODone 50 MG Tablet PO (21:00)
[2022-03-04] MEDS: Insulin Glargine-YFGN 100 UNIT/ML Pen 45 UNIT SC (21:01)
[2022-03-04 21:31] LABS: Bedside Glucose 290 mg/dL (74-106)
[2022-03-05] VITALS (30 sets, daily range): BP systolic 109–150; BP diastolic 59–90; PULSE 76–116; RESP 12–22; TEMP 36.4–36.8; O2SAT 95–100
[2022-03-05 03:20] LABS: Absolute Lymphocyte Count 1.56 X10^3/uL (0.83-4.51); Absolute Neutrophil Count 2.6 X10^3/uL (2.0-7.7); Basophil# 0.01 X10^3/uL; Basophil% 0.2 % (0-1); Eosinophil# 0.07 X10^3/uL; Eosinophils% 1.4 % (0-5); Hematocrit 29.5 % (37-47); Hemoglobin 10.4 g/dL (12.0-15.0); Lymphocyte # 1.56 X10^3/ul (0.83-4.51); Lymphocyte % 32.3 % (19-41); Mean Corp Hgb Conc 35.3 g/dL (32-36); Mean Corpuscular Volume 88.1 fL (81-99); Mean Platelet Vol. 10.4 fl (6.2-12.0); Monocyte# 0.53 X10^3/uL; NRBC Flagged by Analyzer 0 % (0-5); Neutrophil # 2.64 X10^3/uL (2.7-7.7); Neutrophil % 54.7 % (47-70); Platelet Count 138 K/mm3 (150-450); RBC Distribution Width CV 14.1 % (11.6-14.6); RBC Distribution Width SD 44.4 fl (35.1-43.9); Red Blood Count 3.35 M/mm3 (4.2-5.4); White Blood Count 4.8 K/mm3 (4.4-11.0)
[2022-03-05 03:48] LABS: ALB/GLOB Ratio 0.9 RATIO (0.9-2.4); AST(SGOT) 10 U/L (15-37); Alanine Aminotransfer ALT/SGPT 11 U/L (13-56); Albumin, Serum 2.6 g/dL (3.2-5.0); Alkaline Phosphatase 69 U/L (45-117); Anion Gap 6 (5-15); BUN 8 mg/dL (7-18); Calcium,Total 8.2 mg/dL (8.5-10.1); Chloride 114 mmol/L (98-107); EST Glomerular Filtration Rate 78 mL/min (>60); Est Glom Filt Rate - Afr Amer 94 mL/min (>60); Estimated Creatinine Clearance 62.63 ml/min; Globulin 2.9 g/dL (2.2-4.2); Glucose 62 mg/dL (74-106); Potassium 2.2 mmol/L (3.5-5.1); Protein, Total 5.5 g/dL (6.4-8.2); Sodium Level 144 mmol/L (136-145)
--- NOTE | 2022-03-05 04:00 | NURSING ---
This RN evelyn pt's a.m. labs. Critical potassium of 2.[address] Iniguez notified. See orders. Also, glucose result on lab work resulted at 62. This RN checked pt's POC blood glucose which resulted at 40. Pt alert and oriented, asymptomatic. [place] juice and rishabh doons given. Blood glucose recheck showed 91.
[2022-03-05 04:15] LABS: Bedside Glucose 40 mg/dL (74-106)
[2022-03-05] MEDS: 0.9% Saline Lock 10 ML Syringe IV (04:16)
[2022-03-05] MEDS: Potassium Chloride Oral Tablet 20 MEQ 40 MEQ PO (04:16)
[2022-03-05] MEDS: Potassium Chloride 10mEq/100mL 10 MEQ/100 ML IV.SOLN. 100 MEQ IV BOLUS ×8 (04:16→13:54)
[2022-03-05 04:45] LABS: Bedside Glucose 91 mg/dL (74-106)
--- NOTE | 2022-03-05 06:27 | PN.CC_ITS ---
Assessment & Plan Assessment/Plan (1) DKA (diabetic ketoacidosis): (2) Acute kidney injury: (3) Pancreatitis: PLAN: Plan RECOMMENDATIONS: 1. Aggressive potassium repletion 2. No further amps of bicarbonate 3. Likely okay to continue CIWA for another 24 hours 4. Decrease insulin glargine 5. Potential transfer from the intensive care unit later today IMPRESSIONS: 1. Acute metabolic encephalopathy secondary to acute DKA with insulin- dependent diabetes mellitus Resolved. Patient with significant acidosis on presentation. Clinical suspicion for both a keto and diabetic acidosis. No further bicarbonate infusions would be indicated. Patient is not reporting any recent alcohol. Patient is on Jardiance at baseline. Patient transition to subcutaneous insulin. However, hypoglycemia this morning. Clinical suspicion for decreased p.o. intake. Responded appropriately to oral therapy. We will decrease glargi ne for now, but this may need to be increased on discharge given change in diet. 2. Acute kidney injury Improving. Patient is on baseline DAVID inhibitor and appeared sig nificantly volume depleted on presentation. Baseline creatinine appears to be approximately 0.5. Patient is responding to hydration well. No need for renal ultrasound and urine electrolytes in my opinion. Patient with adequate urine output. No indication for renal replacement therapy at this time. 3. Acute pancreatitis secondary to alcohol versus DKA Variable history on alcohol ingestion. Patient is on the CIWA protocol. This can likely be discontinued after another 24 hours. Likely not necessary to continue monitoring levels. Attempt to address sobriety once patient is more appropriate. 4. Anxiety/depression/hypertension/tobacco abuse/conflicting history Complicates care, management, recovery and prognosis. Likely okay to reinitiate DAVID inhibitor. Defer to hospitalist Subjective Subjective Patient did okay overnight from a hemodynamic standpoint. No as needed Ativan has been required. Patient has been doing well on room air. Patient did report that she did not care for the taste of her dinner and ate very little. This morning, patient had hypoglycemia that had to be treated orally. No significant arrhythmias were reported by nursing. Objective Data Objective Data Vital Signs: Vital Signs Temp Pulse Resp BP Pulse Ox O2 Del Method 36.8 C 94 17 124/71 H 98 Room Air 03/05/22 04:00 03/05/22 06:00 03/05/22 06:00 03/05/22 06:00 03/05/22 06:00 03/05/22 06:00 Oxygen Delivery Method Room Air Weight: 56.7 kg Body Mass Index (BMI) 20.8 Intake & Output: Intake and Output for Last 24 Hours 03/03/22 03/04/22 03/05/22 23:59 23:59 23:59 Intake Total 3122.64 / 3124.84 4809.33 / 4809.33 198.33 / 198.33 Output Total 2750 / 2750 Balance 3122.64 / 3124.84 2059.33 / 2059.33 198.33 / 198.33 Medical Nutrition Assessment Dietitian: Malnutrition Criteria Met Start: 03/04/22 10:04 Freq: Status: Active Protocol: Document 03/04/22 10:05 (Rec: 03/04/22 10:06 [id number]) Nutrition Malnutrition Evidence of Malnutrition Exists Yes Malnutrition (severe): Acute Illness/Injury Evidenced By Suboptimal Energy Intake ( Severe),Weight Loss (Severe) Clinical Problem Acute Disease or Injury Related Malnutrition Etiology severe, acute malnutrition related to inadequate oral intake, hyperglycemia Signs/Symptoms as evidenced by unintentional wt loss of 8.8#/7% x 5 days, estimated PO intake meeting < 50% of estimated energy needs x 5 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 Lab / Micro Data Attestation: I reviewed the patient's lab results. Result Diagrams: 03/05/22 03:14 03/05/22 03:14 Labs: Laboratory Results - last 24 hr 03/04/22 04:06: POC Glucose 142 H 03/04/22 05:00: POC Glucose 129 H 03/04/22 05:30: Plt Morphology Comment CLUMPED 03/04/22 05:30: Hemoglobin A1c 13.4 H 03/04/22 06:56: POC Glucose 126 H 03/04/22 08:04: POC Glucose 122 H 03/04/22 09:01: POC Glucose 104 03/04/22 09:30: Sodium 144, Potassium 3.3 L, Chloride 117 H, Carbon Dioxide 19.0 L, Anion Gap 8, BUN 14, Creatinine 1.06 H, Estim Creat Clear Calc 47.27, Est GFR (MDRD) Af Amer 68, Est GFR (MDRD) Non-Af 56 L, BUN/Creatinine Ratio 13.2, Glucose 116 H, Calcium 8.1 L 03/04/22 10:00: POC Glucose 113 H 03/04/22 10:59: POC Glucose 100 03/04/22 12:04: POC Glucose 89 03/04/22 14:27: POC Glucose 235 H 03/04/22 15:51: POC Glucose 292 H 03/04/22 20:59: POC Glucose 290 H 03/05/22 03:14: WBC 4.8, RBC 3.35 L, Hgb 10.4 L, Hct 29.5 L, MCV 88.1, MCH 31.0, MCHC 35.3 D, RDW Std Deviation 44.4 H, RDW Coeff of Nellie 14.1, Plt Count 138 L, MPV 10.4, Immature Gran % (Auto) 0.400, Neut % (Auto) 54.7, Lymph % (Auto) 32.3, [place] % (Auto) 11.0 H, Eos % (Auto) 1.4, Baso % (Auto) 0.2, Absolute Neuts (auto) 2.6, Absolute Lymphs (auto) 1.56, Nucleated RBC % 0 03/05/22 03:14: Sodium 144, Potassium 2.2 L*, Chloride 114 H, Carbon Dioxide 24.0, Anion Gap 6, BUN 8, Creatinine 0.80, Estim Creat Clear Calc 62.63, Est GFR (MDRD) Af Amer 94, Est GFR (MDRD) Non-Af 78, BUN/Creatinine Ratio 10.0, Glucose 62 L, Calcium 8.2 L, Total Bilirubin 0.20, AST 10 L, ALT 11 L, Alkaline Phosphatase 69, Total Protein 5.5 L, Albumin 2.6 L, Globulin 2.9, Albumin/Globulin Ratio 0.9 03/05/22 03:57: POC Glucose 40 L* 03/05/22 04:26: POC Glucose 91 Micro: Microbiology 03/03/22 18:11 Nasal Secretion SARS-CoV-2 & FLU Antigen (Rapid) - Final Rhythm Strip Rhythm Strip: Sinus Tach Rate: 102 Ectopy: None Physical Exam Const alert, oriented x3 and no apparent distress Constitutional Narrative: Appears older than stated age General Appearance: cooperative and well developed HEENT normocephalic, head/scalp atraumatic and moist oral mucous membranes Eyes PERRL and EOMs intact bilaterally Eyes Narrative: No glasses in place Neck full ROM and no lymphadenopathy Chest inspection of chest normal Resp normal respiratory effort and no use of accessory muscles Effort and Inspection: able to speak in complete sentences Auscultation: clear to auscultation bilaterally; Negative for rales, rhonchi or wheezes Percussion: Negative for dullness Cardio regular rhythm, S1 normal heart sound, S2 normal heart sound, no murmurs, no rub and no gallops Rate: tachycardic GI normal to inspection, nondistended, normoactive bowel sounds Palpation: Negative for tender, guarding or ascites no CVA tenderness Extremity no clubbing, cyanosis or edema Skin no rashes or lesions noted Neuro oriented x3, CN's II-XII intact bilaterally, moves all extremities and no focal motor deficits Psych Mood & Affect: flat affect Charges/Coding Visit Charges Inpatient E&M: 71806 Subs Hosp L2
[2022-03-05] MEDS: Enoxaparin 40 MG/0.4 ML Syringe SC (07:25)
[2022-03-05] MEDS: Sertraline 100 MG Tablet PO (07:27)
[2022-03-05] MEDS: Thiamine Hydrochloride 100 MG Tablet PO (07:27)
[2022-03-05] MEDS: Lidocaine 5% Patch 1 PATCH TOPICAL (07:27)
[2022-03-05] MEDS: Folic Acid 1 MG Tablet PO (07:29)
--- NOTE | 2022-03-05 09:20 | PN.HOSP_ITS ---
Subjective Subjective Follow-up on acute DKA: Patient seen and examined.? She complains of feeling very weak. She had an episode of hypoglycemia and was replaced with oral juice and cookies. Lantus has been decreased to 25 units nightly. Objective Data Objective Data Vital Signs: Vital Signs Temp Pulse Resp BP Pulse Ox O2 Del Method 98.2 F 102 H 14 125/76 H 97 Room Air 03/05/22 04:00 03/05/22 07:59 03/05/22 07:59 03/05/22 07:59 03/05/22 07:59 03/05/22 07:59 Oxygen Delivery Method Room Air Weight: 56.7 kg Body Mass Index (BMI) 20.8 Intake & Output: Intake and Output for Last 24 Hours 03/03/22 03/04/22 03/05/22 23:59 23:59 23:59 Intake Total 3122.64 / 3124.84 4809.33 / 4809.33 508.33 / 508.33 Output Total 2750 / 2750 Balance 3122.64 / 3124.84 2059.33 / 2059.33 508.33 / 508.33 Medical Nutrition Assessment Dietitian: Malnutrition Criteria Met Start: 03/04/22 10:04 Freq: Status: Active Protocol: Document 03/04/22 10:05 (Rec: 03/04/22 10:06 [id number]) Nutrition Malnutrition Evidence of Malnutrition Exists Yes Malnutrition (severe): Acute Illness/Injury Evidenced By Suboptimal Energy Intake ( Severe),Weight Loss (Severe) Clinical Problem Acute Disease or Injury Related Malnutrition Etiology severe, acute malnutrition related to inadequate oral intake, hyperglycemia Signs/Symptoms as evidenced by unintentional wt loss of 8.8#/7% x 5 days, estimated PO intake meeting < 50% of estimated energy needs x 5 days 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 Lab / Micro Data Result Diagrams: 03/05/22 03:14 03/05/22 03:14 Labs: Laboratory Results - last 24 hr 03/04/22 09:01: POC Glucose 104 03/04/22 09:30: Sodium 144, Potassium 3.3 L, Chloride 117 H, Carbon Dioxide 19.0 L, Anion Gap 8, BUN 14, Creatinine 1.06 H, Estim Creat Clear Calc 47.27, Est GFR (MDRD) Af Amer 68, Est GFR (MDRD) Non-Af 56 L, BUN/Creatinine Ratio 13.2, Glucose 116 H, Calcium 8.1 L 03/04/22 10:00: POC Glucose 113 H 03/04/22 10:59: POC Glucose 100 03/04/22 12:04: POC Glucose 89 03/04/22 14:27: POC Glucose 235 H 03/04/22 15:51: POC Glucose 292 H 03/04/22 20:59: POC Glucose 290 H 03/05/22 03:14: WBC 4.8, RBC 3.35 L, Hgb 10.4 L, Hct 29.5 L, MCV 88.1, MCH 31.0, MCHC 35.3 D, RDW Std Deviation 44.4 H, RDW Coeff of Nellie 14.1, Plt Count 138 L, MPV 10.4, Immature Gran % (Auto) 0.400, Neut % (Auto) 54.7, Lymph % (Auto) 32.3, [place] % (Auto) 11.0 H, Eos % (Auto) 1.4, Baso % (Auto) 0.2, Absolute Neuts (auto) 2.6, Absolute Lymphs (auto) 1.56, Nucleated RBC % 0 03/05/22 03:14: Sodium 144, Potassium 2.2 L*, Chloride 114 H, Carbon Dioxide 24.0, Anion Gap 6, BUN 8, Creatinine 0.80, Estim Creat Clear Calc 62.63, Est GFR (MDRD) Af Amer 94, Est GFR (MDRD) Non-Af 78, BUN/Creatinine Ratio 10.0, Glucose 62 L, Calcium 8.2 L, Total Bilirubin 0.20, AST 10 L, ALT 11 L, Alkaline Phosphatase 69, Total Protein 5.5 L, Albumin 2.6 L, Globulin 2.9, Albumin/Globulin Ratio 0.9 03/05/22 03:57: POC Glucose 40 L* 03/05/22 04:26: POC Glucose 91 Micro: Microbiology 03/03/22 18:11 Nasal Secretion SARS-CoV-2 & FLU Antigen (Rapid) - Final Rhythm Strip Rhythm Strip: Sinus Tach Rate: 102 Ectopy: None Physical Exam Narrative Physical exam: General: Alert, Oriented x3, Cooperative, appears frail HEENT: Atraumatic Oral: Very dry oral mucosa Neck: Supple Lungs: Diminished to auscultation Cardiovascular: HS I+II, regular, no murmurs Abdomen: Bowel Sounds Present, Soft, Non Tender Extremities: No edema Skin: No rashes, No breakdown Neurological: Grossly intact Psych/Mental Status: Appropriate Assessment & Plan Assessment/Plan (1) DKA (diabetic ketoacidosis): (2) Acute kidney injury: PLAN: Plan 1. Acute DKA, resolved 2. Type II DM, poorly controlled, HbA1c is 13.4 Patient had episodes of hypoglycemia today Lantus decreased to 25 units nightly, continue with insulin sliding scale 3. Acute Metabolic Encephalopathy secondary to Acute DKA , resolved 4. Acute kidney injury, likely prerenal secondary to 1, resolved Repeat blood work in a.m. 5. Severe protein calorie malnutrition, director of science consulted, continue on replacement 6. Hypokalemia/hypomagnesemia/hypophosphatemia, likely secondary to refeeding syndrome from #5 Replaced, recheck in a.m. 7. Low back pain, lumbar spine x-ray unremarkable, likely musculoskeletal Improved, continue on Tylenol and Lidoderm patches 8. Anxiety/depression, continue Zoloft 9. Hypertension, relatively hypotensive now, continue to monitor 10. Nicotine dependence, advised to quit 11. DVT PPx- Lovenox SC Charges/Coding Visit Charges Inpatient E&M: 25657 Subs Hosp L2
[2022-03-05 09:53] LABS: Magnesium 1.9 mg/dL (1.6-2.6)
[2022-03-05] MEDS: Potassium Chloride Oral Tablet 20 MEQ 60 MEQ PO (10:30)
[2022-03-05] MEDS: Insulin Lispro 100 UNIT/ML INSULN.PEN SC ×2 (11:04→21:23)
[2022-03-05 11:26] LABS: Bedside Glucose 171 mg/dL (74-106)
[2022-03-05 12:10] LABS: AST(SGOT) 12 U/L (15-37); Alanine Aminotransfer ALT/SGPT 10 U/L (13-56); Albumin, Serum 2.9 g/dL (3.2-5.0); Alkaline Phosphatase 75 U/L (45-117); Anion Gap 10 (5-15); BUN 7 mg/dL (7-18); BUN/Creat Ratio 8.4 RATIO (10-20); Calcium,Total 8.7 mg/dL (8.5-10.1); Chloride 106 mmol/L (98-107); Creatinine, Serum 0.84 mg/dL (0.55-1.02); EST Glomerular Filtration Rate 74 mL/min (>60); Est Glom Filt Rate - Afr Amer 90 mL/min (>60); Estimated Creatinine Clearance 59.65 ml/min; Glucose 231 mg/dL (74-106); Potassium 2.9 mmol/L (3.5-5.1); Protein, Total 5.9 g/dL (6.4-8.2); Sodium Level 139 mmol/L (136-145)
[2022-03-05] MEDS: Na Biphos/Potassium Phosphate PACKET 1 PACKET PO ×3 (12:21→21:13)
[2022-03-05 14:16] LABS: Bedside Glucose 200 mg/dL (74-106)
[2022-03-05 16:46] LABS: Bedside Glucose 103 mg/dL (74-106)
[2022-03-05 16:52] LABS: Alkaline Phosphatase 78 U/L (45-117); Potassium 4.1 mmol/L (3.5-5.1)
[2022-03-05] MEDS: traZODone 50 MG Tablet PO (21:14)
[2022-03-05] MEDS: Insulin Glargine-YFGN 100 UNIT/ML Pen 25 UNIT SC (21:14)
[2022-03-05 22:25] LABS: Bedside Glucose 158 mg/dL (74-106)
[2022-03-06] VITALS (19 sets, daily range): BP systolic 105–153; BP diastolic 52–88; PULSE 72–95; RESP 13–21; TEMP 36.4–37; O2SAT 96–100
[2022-03-06 04:56] LABS: Absolute Lymphocyte Count 1.89 X10^3/uL (0.83-4.51); Absolute Neutrophil Count 1.6 X10^3/uL (2.0-7.7); Basophil# 0.02 X10^3/uL; Basophil% 0.5 % (0-1); Eosinophil# 0.05 X10^3/uL; Eosinophils% 1.2 % (0-5); Hematocrit 30.9 % (37-47); Hemoglobin 10.8 g/dL (12.0-15.0); Lymphocyte # 1.89 X10^3/ul (0.83-4.51); Mean Corpuscular Hgb 30.9 pg (27.0-32.0); Mean Corpuscular Volume 88.3 fL (81-99); Monocyte# 0.57 X10^3/uL; Monocyte% 13.9 % (0-10); NRBC Flagged by Analyzer 0 % (0-5); Neutrophil # 1.56 X10^3/uL (2.7-7.7); Neutrophil % 37.9 % (47-70); Platelet Count 131 K/mm3 (150-450); RBC Distribution Width CV 14.2 % (11.6-14.6); RBC Distribution Width SD 45.3 fl (35.1-43.9); White Blood Count 4.1 K/mm3 (4.4-11.0)
[2022-03-06 05:17] LABS: ALB/GLOB Ratio 0.9 RATIO (0.9-2.4); AST(SGOT) 11 U/L (15-37); Alanine Aminotransfer ALT/SGPT 11 U/L (13-56); Albumin, Serum 2.7 g/dL (3.2-5.0); Alkaline Phosphatase 71 U/L (45-117); Anion Gap 5 (5-15); BUN 5 mg/dL (7-18); BUN/Creat Ratio 8.5 RATIO (10-20); Calcium,Total 8.8 mg/dL (8.5-10.1); Chloride 112 mmol/L (98-107); Creatinine, Serum 0.59 mg/dL (0.55-1.02); EST Glomerular Filtration Rate 111 mL/min (>60); Est Glom Filt Rate - Afr Amer 134 mL/min (>60); Estimated Creatinine Clearance 84.93 ml/min; Globulin 2.9 g/dL (2.2-4.2); Glucose 44 mg/dL (74-106); Potassium 2.2 mmol/L (3.5-5.1); Protein, Total 5.6 g/dL (6.4-8.2); Sodium Level 146 mmol/L (136-145)
[2022-03-06 06:04] LABS: Magnesium 2.5 mg/dL (1.6-2.6); Phosphorus 1.6 mg/dL (2.5-4.9)
[2022-03-06 06:40] LABS: Bedside Glucose 56 mg/dL (74-106)
[2022-03-06 06:40] LABS: Bedside Glucose 156 mg/dL (74-106)
--- NOTE | 2022-03-06 06:52 | PCM.PN.INT ---
Assessment & Plan Assessment/Plan (1) DKA (diabetic ketoacidosis): (2) Acute kidney injury: (3) Pancreatitis: PLAN: Plan RECOMMENDATIONS: 1. Aggressive potassium/phosphorus repletion 2. No further amps of bicarbonate 3. Okay to discontinue CIWA protocol 4. Decrease insulin glargine 5. Hemodynamically stable. Defer to hospitalist on further electrolyte repletion will sign off IMPRESSIONS: 1. Acute metabolic encephalopathy secondary to acute DKA with insulin-dependent diabetes mellitus Resolved. Patient with significant acidosis on presentation. Clinical suspicion for both a keto and diabetic acidosis. No further bicarbonate infusions would be indicated. Patient is not reporting any recent alcohol. Patient is on Jardiance at baseline. Patient transition to subcutaneous insulin. However, hypoglycemia this morning. Clinical suspicion for decreased p.o. intake. Responded appropriately to oral therapy. We will decrease glargine for now, but this may need to be increased on discharge given change in diet. 2. Acute kidney injury Improving. Patient is on baseline DAVID inhibitor and appeared significantly volume depleted on presentation. Baseline creatinine appears to be approximately 0.5. Patient is responding to hydration well. No need for renal ultrasound and urine electrolytes in my opinion. Patient with adequate urine output. No indication for renal replacement therapy at this time. 3. Acute pancreatitis secondary to alcohol versus DKA Variable history on alcohol ingestion. Patient has not shown any signs or symptoms of withdrawal requiring Ativan therapy. This has been discontinued. 4. Anxiety/depression/hypertension/tobacco abuse/conflicting history Complicates care, management, recovery and prognosis. Likely okay to reinitiate DAVID inhibitor. Defer to hospitalist Subjective Subjective Patient did okay overnight. No acute issues were reported. Patient received over 80 mEq of potassium yesterday. However, this morning patient was noted to be hypoglycemic. Patient did respond to oral therapy. Patient asymptomatic at this time. Nursing reports patient did have snacks overnight. Patient is not reporting any nausea or abdominal pain at this time. Objective Data Objective Data Vital Signs: Vital Signs Temp Pulse Resp BP Pulse Ox O2 Del Method 37.0 C 77 16 153/84 H 98 Room Air 03/06/22 00:00 03/06/22 06:00 03/06/22 06:00 03/06/22 06:00 03/06/22 06:00 03/06/22 06:00 Oxygen Delivery Method Room Air Weight: 57.8 kg Body Mass Index (BMI) 20.8 Intake & Output: Intake and Output for Last 24 Hours 03/04/22 03/05/22 03/06/22 23:59 23:59 23:59 Intake Total 4809.33 / 4809.33 2564.00 / 2764.00 400 / 400 Output Total 2750 / 2750 0 / 0 Balance 2059.33 / 2059.33 2564.00 / 2764.00 400 / 400 Medical Nutrition Assessment Dietitian: Malnutrition Criteria Met Start: 03/04/22 10:04 Freq: Status: Active Protocol: Document 03/04/22 10:05 (Rec: 03/04/22 10:06 [id number]) Nutrition Malnutrition Evidence of Malnutrition Exists Yes Malnutrition (severe): Acute Illness/Injury Evidenced By Suboptimal Energy Intake ( Severe),Weight Loss (Severe) Clinical Problem Acute Disease or Injury Related Malnutrition Etiology severe, acute malnutrition related to inadequate oral intake, hyperglycemia Signs/Symptoms as evidenced by unintentional wt loss of 8.8#/7% x 5 days, estimated PO intake meeting < 50% of estimated energy needs x 5 days 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 Lab / Micro Data Attestation: I reviewed the patient's lab results. Result Diagrams: 03/06/22 04:15 03/06/22 04:15 Labs: Laboratory Results - last 24 hr 03/05/22 03:14: Phosphorus 1.0 L*, Magnesium 1.9 03/05/22 08:40: Sodium Cancelled, Potassium Cancelled, Chloride Cancelled, Carbon Dioxide Cancelled, Anion Gap Cancelled, BUN Cancelled, Creatinine Cancelled, Estim Creat Clear Calc Cancelled, Est GFR (MDRD) Af Amer Cancelled, Est GFR (MDRD) Non-Af Cancelled, BUN/Creatinine Ratio Cancelled, Glucose Cancelled, Calcium Cancelled 03/05/22 11:01: POC Glucose 171 H 03/05/22 11:20: Sodium 139, Potassium 2.9 L, Chloride 106, Carbon Dioxide 23.0, Anion Gap 10, BUN 7, Creatinine 0.84, Estim Creat Clear Calc 59.65, Est GFR (MDRD) Af Amer 90, Est GFR (MDRD) Non-Af 74, BUN/Creatinine Ratio 8.4 L, Glucose 231 H, Calcium 8.7, Total Bilirubin 0.20, AST 12 L, ALT 10 L, Alkaline Phosphatase 75, Total Protein 5.9 L, Albumin 2.9 L, Globulin 3.0, Albumin/Globulin Ratio 1.0 03/05/22 13:56: POC Glucose 200 H 03/05/22 16:20: Potassium 4.1, Alkaline Phosphatase 78 03/05/22 16:25: POC Glucose 103 03/05/22 21:18: POC Glucose 158 H 03/06/22 04:15: WBC 4.1 L, RBC 3.50 L, Hgb 10.8 L, Hct 30.9 L, MCV 88.3, MCH 30.9, MCHC 35.0, RDW Std Deviation 45.3 H, RDW Coeff of Nellie 14.2, Plt Count 131 L, MPV 11.0, Immature Gran % (Auto) 0.500, Neut % (Auto) 37.9 L, Lymph % (Auto) 46.0 H, [place] % (Auto) 13.9 H, Eos % (Auto) 1.2, Baso % (Auto) 0.5, Absolute Neuts (auto) 1.6 L, Absolute Lymphs (auto) 1.89, Nucleated RBC % 0 03/06/22 04:15: Sodium 146 H, Potassium 2.2 L*, Chloride 112 H, Carbon Dioxide 29.0, Anion Gap 5, BUN 5 L, Creatinine 0.59, Estim Creat Clear Calc 84.93, Est GFR (MDRD) Af Amer 134, Est GFR (MDRD) Non-Af 111, BUN/Creatinine Ratio 8.5 L, Glucose 44 L*, Calcium 8.8, Total Bilirubin 0.30, AST 11 L, ALT 11 L, Alkaline Phosphatase 71, Total Protein 5.6 L, Albumin 2.7 L, Globulin 2.9, Albumin/Globulin Ratio 0.9 03/06/22 04:15: Phosphorus 1.6 L, Magnesium 2.5 03/06/22 05:41: POC Glucose 56 L 03/06/22 06:22: POC Glucose 156 H Micro: Microbiology 03/03/22 18:11 Nasal Secretion SARS-CoV-2 & FLU Antigen (Rapid) - Final Rhythm Strip Rhythm Strip: Sinus Rhythm Rate: 82 Ectopy: None Physical Exam Const alert, oriented x3 and no apparent distress Constitutional Narrative: Appears older than stated age General Appearance: cooperative and well developed HEENT normocephalic, head/scalp atraumatic and moist oral mucous membranes Eyes PERRL and EOMs intact bilaterally Eyes Narrative: No glasses in place Neck full ROM and no lymphadenopathy Chest inspection of chest normal Resp normal respiratory effort and no use of accessory muscles Effort and Inspection: able to speak in complete sentences Auscultation: clear to auscultation bilaterally; Negative for rales, rhonchi or wheezes Percussion: Negative for dullness Cardio regular rhythm, S1 normal heart sound, S2 normal heart sound, no murmurs, no rub and no gallops Rate: tachycardic GI normal to inspection, nondistended, normoactive bowel sounds Palpation: Negative for tender, guarding or ascites no CVA tenderness Extremity no clubbing, cyanosis or edema Skin no rashes or lesions noted Neuro oriented x3, CN's II-XII intact bilaterally, moves all extremities and no focal motor deficits Psych Mood & Affect: flat affect Charges/Coding Visit Charges Inpatient E&M: 48717 Subs Hosp L2
--- NOTE | 2022-03-06 07:08 | PN.HOSP_ITS ---
Objective Data Objective Data Vital Signs: Vital Signs Temp Pulse Resp BP Pulse Ox O2 Del Method 98.5 F 78 14 121/73 H 98 Room Air 03/06/22 07:00 03/06/22 07:00 03/06/22 07:00 03/06/22 07:00 03/06/22 07:00 03/06/22 07:00 Oxygen Delivery Method Room Air Weight: 57.8 kg Body Mass Index (BMI) 20.8 Intake & Output: Intake and Output for Last 24 Hours 03/04/22 03/05/22 03/06/22 23:59 23:59 23:59 Intake Total 4809.33 / 4809.33 2564.00 / 2764.00 400 / 400 Output Total 2750 / 2750 0 / 0 Balance 2059.33 / 2059.33 2564.00 / 2764.00 400 / 400 Medical Nutrition Assessment Dietitian: Malnutrition Criteria Met Start: 03/04/22 10:04 Freq: Status: Active Protocol: Document 03/04/22 10:05 (Rec: 03/04/22 10:06 [id number]) Nutrition Malnutrition Evidence of Malnutrition Exists Yes Malnutrition (severe): Acute Illness/Injury Evidenced By Suboptimal Energy Intake ( Severe),Weight Loss (Severe) Clinical Problem Acute Disease or Injury Related Malnutrition Etiology severe, acute malnutrition related to inadequate oral intake, hyperglycemia Signs/Symptoms as evidenced by unintentional wt loss of 8.8#/7% x 5 days, estimated PO intake meeting < 50% of estimated energy needs x 5 days 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 Lab / Micro Data Result Diagrams: 03/06/22 04:15 03/06/22 04:15 Labs: Laboratory Results - last 24 hr 03/05/22 03:14: Phosphorus 1.0 L*, Magnesium 1.9 03/05/22 08:40: Sodium Cancelled, Potassium Cancelled, Chloride Cancelled, Carbo n Dioxide Cancelled, Anion Gap Cancelled, BUN Cancelled, Creatinine Cancelled, Estim Creat Clear Calc Cancelled, Est GFR (MDRD) Af Amer Cancelled, Est GFR (MDRD) Non-Af Cancelled, BUN/Creatinine Ratio Cancelled, Glucose Cancelled, Calcium Cancelled 03/05/22 11:01: POC Glucose 171 H 03/05/22 11:20: Sodium 139, Potassium 2.9 L, Chloride 106, Carbon Dioxide 23.0, Anion Gap 10, BUN 7, Creatinine 0.84, Estim Creat Clear Calc 59.65, Est GFR (MDRD) Af Amer 90, Est GFR (MDRD) Non-Af 74, BUN/Creatinine Ratio 8.4 L, Glucose 231 H, Calcium 8.7, Total Bilirubin 0.20, AST 12 L, ALT 10 L, Alkaline Phosphatase 75, Total Protein 5.9 L, Albumin 2.9 L, Globulin 3.0, Albumin/Globu lydia Ratio 1.0 03/05/22 13:56: POC Glucose 200 H 03/05/22 16:20: Potassium 4.1, Alkaline Phosphatase 78 03/05/22 16:25: POC Glucose 103 03/05/22 21:18: POC Glucose 158 H 03/06/22 04:15: WBC 4.1 L, RBC 3.50 L, Hgb 10.8 L, Hct 30.9 L, MCV 88.3, MCH 3 0.9, MCHC 35.0, RDW Std Deviation 45.3 H, RDW Coeff of Nellie 14.2, Plt Count 131 L , MPV 11.0, Immature Gran % (Auto) 0.500, Neut % (Auto) 37.9 L, Lymph % (Auto) 46.0 H, [place] % (Auto) 13.9 H, Eos % (Auto) 1.2, Baso % (Auto) 0.5, Absolute Neuts (auto) 1.6 L, Absolute Lymphs (auto) 1.89, Nucleated RBC % 0 03/06/22 04:15: Sodium 146 H, Potassium 2.2 L*, Chloride 112 H, Carbon Dioxide 29.0, Anion Gap 5, BUN 5 L, Creatinine 0.59, Estim Creat Clear Calc 84.93, Est GFR (MDRD) Af Amer 134, Est GFR (MDRD) Non-Af 111, BUN/Creatinine Ratio 8.5 L, Glucose 44 L*, Calcium 8.8, Total Bilirubin 0.30, AST 11 L, ALT 11 L, Alkaline Phosphatase 71, Total Protein 5.6 L, Albumin 2.7 L, Globulin 2.9, Albumin/Globulin Ratio 0.9 03/06/22 04:15: Phosphorus 1.6 L, Magnesium 2.5 03/06/22 05:41: POC Glucose 56 L 03/06/22 06:22: POC Glucose 156 H Micro: Microbiology 03/03/22 18:11 Nasal Secretion SARS-CoV-2 & FLU Antigen (Rapid) - Final Rhythm Strip Rhythm Strip: Sinus Rhythm Rate: 82 Ectopy: None
[2022-03-06] MEDS: Potassium Chloride 10mEq/100mL 10 MEQ/100 ML IV.SOLN. 100 MEQ IV BOLUS ×4 (08:26→11:47)
[2022-03-06] MEDS: 0.9% Saline Lock 10 ML Syringe IV (08:26)
[2022-03-06] MEDS: Folic Acid 1 MG Tablet PO (09:18)
[2022-03-06] MEDS: Sertraline 100 MG Tablet PO (09:18)
[2022-03-06] MEDS: Thiamine Hydrochloride 100 MG Tablet PO (09:18)
[2022-03-06] MEDS: Enoxaparin 40 MG/0.4 ML Syringe SC (09:18)
[2022-03-06] MEDS: Potassium Chloride Oral Tablet 20 MEQ 40 MEQ PO (09:18)
[2022-03-06] MEDS: Na Biphos/Potassium Phosphate PACKET 1 PACKET PO ×2 (09:19→13:07)
[2022-03-06] MEDS: Lidocaine 5% Patch 1 PATCH TOPICAL (09:19)
[2022-03-06] MEDS: Insulin Lispro 100 UNIT/ML INSULN.PEN SC (11:25)
[2022-03-06 11:40] LABS: Bedside Glucose 184 mg/dL (74-106)
[2022-03-06 14:23] LABS: Anion Gap 5 (5-15); BUN 5 mg/dL (7-18); BUN/Creat Ratio 6.8 RATIO (10-20); Calcium,Total 8.7 mg/dL (8.5-10.1); Chloride 111 mmol/L (98-107); Creatinine, Serum 0.74 mg/dL (0.55-1.02); EST Glomerular Filtration Rate 85 mL/min (>60); Est Glom Filt Rate - Afr Amer 103 mL/min (>60); Estimated Creatinine Clearance 67.71 ml/min; Glucose 233 mg/dL (74-106); Potassium 4.3 mmol/L (3.5-5.1); Sodium Level 141 mmol/L (136-145)
--- NOTE | 2022-03-06 14:27 | DCINST_ITS ---
Discharge Instructions Diet Discharge Diet: Low fat / Low cholesterol and Carb Control Diet Activity Discharge Activity: Return to Normal Activity Weight Bearing Status: Weight bearing as tolerated Keep extremity elevated above heart level: Operative Extremity Follow Up Care Test Results: Test results from this visit will be discussed in further detail at your follow- up appointment, if applicable. Discharge Plan Admission Admit Date/Time: 03/03/22 19:32 Primary Reason for Your Visit: Acute DKA Attending Provider: Audrey Sandoval Primary Care Provider: Milind Lamb Consulting Providers: Mark Gunn ; Zelda Ibarra Instructions Additional Instructions / Restrictions: Take note of changes to your insulin Follow-up with your primary care doctor within a week Discharge Orders/Prescriptions Prescriptions: New insulin glargine-yfgn 100 unit/mL (3 mL) Insulin Pen 15 unit subcut QHS Qty: 0 0RF lidocaine 5 % Adhesive Patch,Medicated 1 patch topical DAILY 7 Days Qty: 7 0RF Protocol: *Topical Application Instructions APPLICATION INSTRUCTIONS: apply to the lower back pantoprazole 40 mg tablet,delayed release (DR/EC) 40 mg PO BID 30 Days Qty: 60 0RF potassium chloride [Klor-Con M20] 20 mEq tablet,ER particles/crystals 40 meq PO BID 5 Days Qty: 20 0RF Continued lisinopril 2.5 mg tablet 2.5 mg PO DAILY sertraline 50 mg tablet 100 mg PO DAILY metformin 1,000 MG tablet 1,000 mg PO BID Discontinued insulin glargine U-300 conc 300 UNIT/ML insulin pen 45 unit SQ QHS glimepiride 2 mg tablet 2 mg PO DAILY Jardiance 25 mg tablet 25 mg PO DAILY potassium chloride [Klor-Con M20] 20 mEq tablet,ER particles/crystals 40 meq PO DAILY 7 Days Qty: 14 0RF Referrals / Follow Up: Milind Lamb MD [Primary Care Provider] - Wilfrido Mcclendon MD [Med Staff - Courtesy Staff] - 04/11/22 8:00 am Disposition Disposition (needs filled in before D/C Order can be placed): Home, Self Care
--- NOTE | 2022-03-06 14:30 | PCM.DC.SUM ---
Providers Date of Admission: 03/03/22 Date of Discharge: 03/06/22 Primary Care Physician: Dr. 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 / Pulmonary Medicine Routine Consulting Provider: Mark Gunn Reason for Consult: DKA, BRITTNI, Pancreatitis, EtOH abuse EMERGENT Consult: No MD Notified: Yes Date Notified: 03/03/22 Time Notified: 19:36 Method of Notification: Text Reason For Visit: DKA, EtOH ABUSE, PANCREATITIS Diagnosis Discharge Diagnosis (1) DKA (diabetic ketoacidosis): Status: Acute Code(s): E11.10 - Type 2 diabetes mellitus with ketoacidosis without coma (2) Acute kidney injury: Status: Acute Code(s): N17.9 - Acute kidney failure, unspecified (3) Pancreatitis: Status: Acute Code(s): K85.90 - Acute pancreatitis without necrosis or infection, unspecified Medications at Discharge Home Medications lisinopril 2.5 mg tablet 2.5 mg PO DAILY 07/14/19 sertraline 50 mg tablet 100 mg PO DAILY 07/14/19 metformin 1,000 mg tablet 1,000 mg PO BID 06/19/20 insulin glargine-yfgn 100 unit/mL (3 mL) subcutaneous pen 15 unit (0.15 mL) subcut QHS #0 mL 03/06/22 lidocaine 5 % topical patch 1 patch topical DAILY 7 days #7 ea 03/06/22 pantoprazole 40 mg tablet,delayed release 40 mg PO BID 30 days #60 tabs 03/06/22 potassium chloride 20 mEq tablet,extended release(part/cryst) (Klor-Con M) 40 meq PO BID 5 days #20 tabs 03/06/22 Hospital Course Operations None Procedures None Summary of Care Provided Minutes Spent on Discharge: 40 Hospital Course: 61-year-old female with past medical history of type II DM, nicotine dependent, who presented with acute onset of back pain pain secondary to lifting RV boxes 3 days prior to admission. Patient also drinks alcohol, reportedly heavy. She has not been able to take any of her medications lately. She admitted to nausea without emesis. Work-up in the emergency room was suggestive of acute DKA. Patient was admitted to the ICU. He had evidence of acute kidney injury that improved with IV hydration. She had electrolyte imbalances to hyponatremia, hypokalemia, hypophosphatemia, hypomagnesemia that were replaced. Patient had episodes of hypoglycemia requiring decreasing her regular Lantus. She was discharged on Lantus 15 units nightly. She was advised to follow-up with her primary care doctor within a week after discharge. She was also referred to endocrinology. Physical Exam Narrative Physical exam: General: Alert, Oriented x3, Cooperative, appears frail HEENT: Atraumatic Oral: Very dry oral mucosa Neck: Supple Lungs: Diminished to auscultation Cardiovascular: HS I+II, regular, no murmurs Abdomen: Bowel Sounds Present, Soft, Non Tender Extremities: No edema Skin: No rashes, No breakdown Neurological: Grossly intact Psych/Mental Status: Appropriate Medical Records Data Medical Nutrition Assessment Dietitian: Malnutrition Criteria Met Start: 03/04/22 10:04 Freq: Status: Active Protocol: Document 03/04/22 10:05 (Rec: 03/04/22 10:06 [id number]) Nutrition Malnutrition Evidence of Malnutrition Exists Yes Malnutrition (severe): Acute Illness/Injury Evidenced By Suboptimal Energy Intake ( Severe),Weight Loss (Severe) Clinical Problem Acute Disease or Injury Related Malnutrition Etiology severe, acute malnutrition related to inadequate oral intake, hyperglycemia Signs/Symptoms as evidenced by unintentional wt loss of 8.8#/7% x 5 days, estimated PO intake meeting < 50% of estimated energy needs x 5 days 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 Weight / BMI Weight Weight: 57.8 kg Body Mass Index (BMI) 20.8 ABG / Lab / Microbiology Data Result Diagrams: 03/06/22 04:15 03/06/22 13:58 Laboratory: Laboratory Results - last 24 hr 03/05/22 16:20: Potassium 4.1, Alkaline Phosphatase 78 03/05/22 16:25: POC Glucose 103 03/05/22 21:18: POC Glucose 158 H 03/06/22 04:15: WBC 4.1 L, RBC 3.50 L, Hgb 10.8 L, Hct 30.9 L, MCV 88.3, MCH 30.9, MCHC 35.0, RDW Std Deviation 45.3 H, RDW Coeff of Nellie 14.2, Plt Count 131 L, MPV 11.0, Immature Gran % (Auto) 0.500, Neut % (Auto) 37.9 L, Lymph % (Auto) 46.0 H, [place] % (Auto) 13.9 H, Eos % (Auto) 1.2, Baso % (Auto) 0.5, Absolute Neuts (auto) 1.6 L, Absolute Lymphs (auto) 1.89, Nucleated RBC % 0 03/06/22 04:15: Sodium 146 H, Potassium 2.2 L*, Chloride 112 H, Carbon Dioxide 29.0, Anion Gap 5, BUN 5 L, Creatinine 0.59, Estim Creat Clear Calc 84.93, Est GFR (MDRD) Af Amer 134, Est GFR (MDRD) Non-Af 111, BUN/Creatinine Ratio 8.5 L, Glucose 44 L*, Calcium 8.8, Total Bilirubin 0.30, AST 11 L, ALT 11 L, Alkaline Phosphatase 71, Total Protein 5.6 L, Albumin 2.7 L, Globulin 2.9, Albumin/Globulin Ratio 0.9 03/06/22 04:15: Phosphorus 1.6 L, Magnesium 2.5 03/06/22 05:41: POC Glucose 56 L 03/06/22 06:22: POC Glucose 156 H 03/06/22 11:21: POC Glucose 184 H 03/06/22 13:58: Sodium 141, Potassium 4.3, Chloride 111 H, Carbon Dioxide 25.0, Anion Gap 5, BUN 5 L, Creatinine 0.74, Estim Creat Clear Calc 67.71, Est GFR (MDRD) Af Amer 103, Est GFR (MDRD) Non-Af 85, BUN/Creatinine Ratio 6.8 L, Glucose 233 H, Calcium 8.7 03/06/22 14:00: Phosphorus 4.0 Microbiology: Microbiology 03/03/22 18:11 Nasal Secretion SARS-CoV-2 & FLU Antigen (Rapid) - Final D/C Instructions Discharge Diet: Low fat / Low cholesterol and Carb Control Diet Weight Bearing Status: Weight bearing as tolerated Keep extremity elevated above heart level: Operative Extremity Meaningful Use Info Meaningful Use Diagnoses (Choose all that apply): None applicable Discharge Plan Admission Admit Date/Time: 03/03/22 19:32 Primary Reason for Your Visit: Acute DKA Attending Provider: Audrey Sandoval Primary Care Provider: Milind Lamb Consulting Providers: Mark Gunn ; Zelda Ibarra Instructions Additional Instructions / Restrictions: Take note of changes to your insulin Follow-up with your primary care doctor within a week Discharge Orders/Prescriptions Prescriptions: New insulin glargine-yfgn 100 unit/mL (3 mL) Insulin Pen 15 unit subcut QHS Qty: 0 0RF lidocaine 5 % Adhesive Patch,Medicated 1 patch topical DAILY 7 Days Qty: 7 0RF Protocol: *Topical Application Instructions APPLICATION INSTRUCTIONS: apply to the lower back pantoprazole 40 mg tablet,delayed release (DR/EC) 40 mg PO BID 30 Days Qty: 60 0RF potassium chloride [Klor-Con M20] 20 mEq tablet,ER particles/crystals 40 meq PO BID 5 Days Qty: 20 0RF Continued lisinopril 2.5 mg tablet 2.5 mg PO DAILY sertraline 50 mg tablet 100 mg PO DAILY metformin 1,000 MG tablet 1,000 mg PO BID Discontinued insulin glargine U-300 conc 300 UNIT/ML insulin pen 45 unit SQ QHS glimepiride 2 mg tablet 2 mg PO DAILY Jardiance 25 mg tablet 25 mg PO DAILY potassium chloride [Klor-Con M20] 20 mEq tablet,ER particles/crystals 40 meq PO DAILY 7 Days Qty: 14 0RF Referrals / Follow Up: Milind Lamb MD [Primary Care Provider] - Wilfrido Mcclendon MD [Med Staff - Courtesy Staff] - 04/11/22 8:00 am Disposition Disposition (needs filled in before D/C Order can be placed): Home, Self Care Charges/Coding Visit Charges Inpatient E&M: 79039 Disch Hosp
== END 2022-03-06 15:05 | disposition home or self-care (01) | DRG 420 ==
LOC: ED 19:21 → ICU 19:43
PROVIDERS: Hospitalist; Internal Medicine Critical Care Medicine; Admitting Provider Family Medicine; Emergency Provider Emergency Medicine; PCP Family Medicine; Visit Provider Internal Medicine
DX: E11.10 Type 2 diabetes mellitus with ketoacidosis without coma (principal); G93.41 Metabolic encephalopathy; E43 Unspecified severe protein-calorie malnutrition; N17.9 Acute kidney failure, unspecified; K85.90 Acute pancreatitis without necrosis or infection, unspecified; Z79.4 Long term (current) use of insulin; E11.65 Type 2 diabetes mellitus with hyperglycemia; E11.649 Type 2 diabetes mellitus with hypoglycemia without coma; F10.239 Alcohol dependence with withdrawal, unspecified; E86.0 Dehydration; E87.6 Hypokalemia; F41.9 Anxiety disorder, unspecified; I10 Essential (primary) hypertension; E87.1 Hypo-osmolality and hyponatremia; E83.39 Other disorders of phosphorus metabolism; K21.9 Gastro-esophageal reflux disease without esophagitis; Z87.891 Personal history of nicotine dependence; F32.A Depression, unspecified; M54.50 Low back pain, unspecified; Z86.16 Personal history of COVID-19; Z79.899 Other long term (current) drug therapy; Z68.23 Body mass index [BMI] 23.0-23.9, adult
CPT/HCPCS: 36600; 72100; 80048; 80053; 81001; 82009; 82077; 82803; 82962; 83036; 83605; 83690; 83735; 84075; 84100; 84132; 84484; 85025; 85610; 87428; 93005; 97110; 97112; 97161; 97166; 97530; 97535; 97802; 97803; 99284; J7030; J7040; A4216; J2405; J7799

== ENCOUNTER → 2022-04-11 | Outpatient (CLI) | payer MEDICAID, SELFPAY ==
[2022-04-11 10:01] LABS: ALB/GLOB Ratio 1.2 RATIO (0.9-2.4); AST(SGOT) 8 U/L (15-37); Alanine Aminotransfer ALT/SGPT 14 U/L (13-56); Albumin, Serum 4.2 g/dL (3.2-5.0); Alkaline Phosphatase 88 U/L (45-117); Anion Gap 5 (5-15); BUN 12 mg/dL (7-18); BUN/Creat Ratio 17.6 RATIO (10-20); Calcium,Total 9.7 mg/dL (8.5-10.1); Chloride 103 mmol/L (98-107); Creatinine, Serum 0.68 mg/dL (0.55-1.02); EST Glomerular Filtration Rate 94 mL/min (>60); Est Glom Filt Rate - Afr Amer 113 mL/min (>60); Globulin 3.5 g/dL (2.2-4.2); Glucose 139 mg/dL (74-106); Potassium 3.8 mmol/L (3.5-5.1); Protein, Total 7.7 g/dL (6.4-8.2); Sodium Level 139 mmol/L (136-145)
== END | disposition home or self-care (01) ==
LOC: LAB 08:56
PROVIDERS: PCP Family Medicine; Visit Provider Internal Medicine Endocrinology, Diabetes & Metabolism
DX: E87.6 Hypokalemia (principal)
CPT/HCPCS: 36415; 80053

== ENCOUNTER 2022-05-03 06:10 | Emergency (ER) | payer MEDICAID, SELFPAY ==
[2022-05-03 06:11] VITALS: BP 157/84; PULSE 102; RESP 16; TEMP 36.6; O2SAT 100; BMI 21.4
--- NOTE | 2022-05-03 06:40 | EDS_ITS ---
HPI History of Present Illness Chief Complaint: General Illness Informant: patient Narrative Narrative: Patient is a 62-year-old female with history of diabetes mellitus presenting with upper respiratory symptoms and cough. Patient states he started getting sick about 3 days ago. She has had sore throat, nasal congestion, sinus pressure and headache. Denies any fever but has been feeling hot. Has been having significant cough that is nonproductive. Tonight she was nauseous and had dry heaves because she was coughing so much. Has had sick contacts at work. This was to work today and then 12 hours tomorrow. States she has been able to sleep at night. Denies any chest pain, difficulty breathing, change in bowel movements, abdominal pain or rash. Note she is having urinary incontinence associated with all of her coughing. Denies any ear pain. Does have a sensation of postnasal drip. No other complaints at this time. Has taken Coricidin HBP for her symptoms yesterday. Does not have any ibuprofen or Tylenol at home. Did buy cough drops but then did not take them because she realized they had sugar in them. Was hospitalized in February for DKA. PFSH PFSH Medical History Anxiety and depression COVID-19 Diabetes Diabetes mellitus, type 2 ETOH abuse GERD (gastroesophageal reflux disease) HTN (hypertension) Hypokalemia Tobacco use Home Medications lisinopril 2.5 mg tablet 2.5 mg PO DAILY 07/14/19 [History Last Taken Unknown] sertraline 50 mg tablet 100 mg PO DAILY 07/14/19 [History Last Taken Unknown] flash glucose sensor (FreeStyle Moncho 2 Sensor kit) #2 ea 04/11/22 [Rx Last Taken Unknown] glimepiride 2 mg tablet 2 mg PO BID #60 tabs 04/11/22 [Rx Last Taken Unknown] insulin glargine U-300 conc 300 unit/mL (3 mL) subcutaneous pen (Toujeo Max U- 300 SoloStar) 20 unit (0.0667 mL) subcut DAILY #3 mL 04/11/22 [Rx Last Taken Unknown] metformin 1,000 mg tablet 1,000 mg PO BID #60 tabs 04/11/22 [Rx Last Taken Unkno wn] pen needle, diabetic 32 gauge x 5/32 (BD Ultra-Fine Josefina Pen Needle) #50 ea 04/11/22 [Rx Last Taken Unknown] guaifenesin 600 mg tablet, extended release 12 hr (Mucinex) 600 mg PO Q12H PRN congestion #14 tabs 05/03/22 [Rx Last Taken Unknown] Allergy/AdvReac Type Severity Reaction Status Date / Time No Known Allergies Allergy Verified 05/03/22 06:23 Family History Mother Diabetes Father Diabetes Cancer Hx mesothelioma. Surgical History No history of previous surgery Social History household members: other details: Lives with her son. Her son is also an alcoholic. Smoking Status: Former smoker alcohol intake: current alcohol intake frequency: 3 or more drinks per day details: Reports at least 4 beers daily, not forthcoming with use details. substance use type: does not use ROS ROS ED Constitutional Constitutional ED: Reports other Details: Feels hot ; Denies chills or fever(s) Eyes Eyes: Denies blurry vision or change in vision ENT ENT ED: Reports rhinorrhea, sore throat and other Details: Sinus pressure, nasal congestion ; Denies ear pain Cardiovascular Cardiovascular: Denies chest pain or palpitations Respiratory/Chest Respiratory/Chest: Reports cough; Denies dyspnea Gastrointestinal Gastrointestinal: Reports nausea and vomiting; Denies abdominal pain, constipation or diarrhea Genitourinary Genitourinary ED: Denies dysuria or hematuria Musculoskeletal Musculoskeletal: Denies arthralgias or myalgias Integumentary Denies rash Neurologic Neurologic: Reports headache(s); Denies paresthesias or weakness Psychiatric Psychiatric: Denies anxiety Hematologic/Lymphatic Hematologic/Lymphatic: Denies easy bleeding or easy bruising EXAM Physical Exam Const Vital Signs: 05/03/22 06:11 05/03/22 06:14 Temperature 98 F Temperature Source Temporal Pulse Rate 102 H Respiratory Rate 16 Respiratory Effort Normal Respiratory Pattern Normal Blood Pressure 157/84 H Blood Pressure Mean 108 Pulse Ox 100 Oxygen Delivery Method Room Air Positive well nourished and well developed General Appearance ED: well developed and NAD HEENT Reports TM's clear and moist mucous membranes HEENT Narrative: Nasal congestion present, normal oropharynx Tympanic Membrane ED: Yes TM's clear Eyes PERRL and EOMs intact bilaterally Neck supple and no JVD Neck Narrative: No meningeal signs Chest Wall inspection of chest normal and palpation of chest normal Resp normal respiratory effort Resp Narrative: Dry cough intermittently on exam Auscultation: Negative for rales, rhonchi or wheezes Cardio regular rate, regular rhythm and no murmurs GI normal to inspection, nondistended, normoactive bowel sounds and non-tender Back/Spine no CVA tenderness Extremity normal to inspection General Extremety ED: Negative for edema or tenderness General Extremity: Negative for edema Neuro oriented x3 Sensorium / Orientation: alert Motor Exam: Negative for general weakness Psych mental status grossly normal Mood & Affect: anxious and tearful Skin no rashes or lesions noted MDM MDM MDM Narrative Medical decision making narrative: Patient evaluated for URI symptoms. She has associated cough. Breath sounds are clear and her oxygen is 100% on room air. I do not think a chest x-ray is indicated especially she is only had symptoms for 3 days. Patient is nontoxic- appearing. Will swab for RSV and COVID given the local high levels. Patient be treated symptomatically with albuterol inhaler, Mucinex DM and Tylenol. Be given a work note. Counseled that I highly suspect this is viral even if her swabs are negative and the typical course of this is 2 to 3 weeks. Given return precautions. Encouraged follow-up with primary care doctor. Patient has positive for COVID. Discussed risk and benefits of Paxlovid. Patient states she would like to pass. 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 Lab Data Attestation: I reviewed the patient's lab results. Discharge Plan Triage Chief Complaint: General Illness ED Provider: Nola Gleason Dx/Rx/DC Orders Clinical Impression: Acute viral syndrome, URI, acute, Cough, COVID-19 Prescriptions: New guaifenesin [Mucinex] 600 mg tablet extended release 12hr 600 mg PO Q12H PRN (Reason: congestion) Qty: 14 0RF No Action lisinopril 2.5 mg tablet 2.5 mg PO DAILY sertraline 50 mg tablet 100 mg PO DAILY Toujeo Max U-300 SoloStar 300 unit/mL (3 mL) insulin pen 20 unit subcut DAILY Qty: 3 5RF metformin 1,000 mg tablet 1,000 mg PO BID Qty: 60 5RF glimepiride 2 mg tablet 2 mg PO BID Qty: 60 5RF (DME) pen needle, diabetic [BD Ultra-Fine Josefina Pen Needle] 32 gauge x 5/32 needle See Rx Instructions .ROUTE .MEDSUPPLY Qty: 50 5RF Rx Instructions: daily (DME) FreeStyle Moncho 2 Sensor Kit See Rx Instructions .Route Qty: 2 5RF Rx Instructions: As directed Stand Alone Forms: ED Work / School Excuse Primary Care Provider: Milind Lamb Referrals: Milind Lamb MD [Primary Care Provider] - Activity Restrictions/Additional Instructions: Use [id number] cold and flu medicine to help with your symptoms. You can use sugar-free cough drops. Use the inhaler given to you 1 to 2 puffs every 4-6 hours as needed for shortness of breath or cough. Drink lots of fluids. Disposition Disposition: Home, Self Care
[2022-05-03] MEDS: guaiFENesin/D-Methorphan TAB.SR.12H 1 TABLET PO (06:50)
[2022-05-03] MEDS: Acetaminophen 325 MG Tablet 650 MG PO (06:50)
[2022-05-03] MEDS: Albuterol Sulfate 8 gm Inhaler (60 puffs) INHALATION (07:57)
== END 2022-05-03 08:07 | disposition home or self-care (01) ==
PROVIDERS: Emergency Provider Emergency Medicine; PCP Family Medicine; Visit Provider Emergency Medicine
DX: U07.1 COVID-19 (principal); E11.9 Type 2 diabetes mellitus without complications; Z79.4 Long term (current) use of insulin; J06.9 Acute upper respiratory infection, unspecified; I10 Essential (primary) hypertension; F10.10 Alcohol abuse, uncomplicated; Y90.9 Presence of alcohol in blood, level not specified; Z79.84 Long term (current) use of oral hypoglycemic drugs; Z79.899 Other long term (current) drug therapy; Z87.891 Personal history of nicotine dependence
CPT/HCPCS: 87807; 87811; 94640; 99283

== ENCOUNTER 2022-07-26 11:11 | Inpatient (IN) | payer MEDICAID, SELFPAY ==
[2022-07-26] VITALS (17 sets, daily range): BP systolic 104–175; BP diastolic 47–96; PULSE 84–117; RESP 16–27; TEMP 36.3–36.9; O2SAT 99–100; BMI 21.2; BMI 19.3
--- NOTE | 2022-07-26 11:32 | ED.RN ---
BEDSIDE BGL >600, DR. DAVIS NOTIFIED
--- NOTE | 2022-07-26 11:34 | EKG12_ITS ---
Test Reason : Blood Pressure : / mmHG Vent. Rate : 111 BPM Atrial Rate : 111 BPM P-R Int : 188 ms QRS Dur : 092 ms QT Int : 326 ms P-R-T Axes : 076 044 004 degrees QTc Int : 443 ms Sinus tachycardia T wave abnormality, consider inferior ischemia Abnormal ECG Confirmed by VIKRAM RICH, RENETTA ([id number]), marketing editor DOREEN ADAMS ([id number]) on 07/29/2022 10:00:54 AM Referred By: EDISON Confirmed By:RENETTA SUE MD
--- NOTE | 2022-07-26 11:35 | EX.ED.DYSGE1 ---
HPI History of Present Illness Chief Complaint: Shortness of Breath Detail of Chief Complaint: Dyspnea, thirst, polyuria, bilateral blurred vision, elevated blood sugar Informant: patient and family Onset/Context/Timing Onset: Days (Symptoms started proxy 2 days ago) Context: Sudden Onset Timing: Continuous Quality: Symptoms of hyperglycemia/DKA Location: Endocrine, generalized Current Severity: Moderate Maximum Severity: Moderate Worsened by: Unknown Relieved by: Nothing Associated Symptoms Associated Symptoms: Nausea, shortness of breath, and per HPI Narrative Narrative: Patient is a 62-year-old type II diabetic requiring insulin. She was in DKA 1 year ago. She presents with dyspnea, by ocular blurred vision, thirst, dry mouth, polyuria, polydipsia, shortness of breath. She denies abdominal pain. She denies fever, chills night sweats. She does have a superficial burn to the volar surface of her right forearm. This occurred 3 days ago at work. There is no evidence of infection. She denies headache, double vision or loss of vision. She has ringing ears decreased hearing. She denies rhinorrhea, congestion postnasal drainage sore throat. She denies cough. She denies chest discomfort. She denies abdominal pain. She denies vomiting or diarrhea. She denies dysuria or hematuria. She does report the rash due to burn otherwise negative. Prior similar symptoms: Yes (Approxi-1 year ago) Recent Illness/Hospitalization: No PFSH PFSH Medical History Anxiety and depression COVID-19 Diabetes Diabetes mellitus, type 2 ETOH abuse GERD (gastroesophageal reflux disease) HTN (hypertension) Hypokalemia Tobacco use Home Medications lisinopril 2.5 mg tablet 2.5 mg PO DAILY 07/14/19 [History Last Taken Unknown] sertraline 50 mg tablet 100 mg PO DAILY 07/14/19 [History Last Taken Unknown] flash glucose sensor (FreeStyle Moncho 2 Sensor kit) #2 ea 04/11/22 [Rx Last Taken Unknown] glimepiride 2 mg tablet 2 mg PO BID #60 tabs 04/11/22 [Rx Last Taken Unknown] insulin glargine U-300 conc 300 unit/mL (3 mL) subcutaneous pen (Toujeo Max U-300 SoloStar) 20 unit (0.0667 mL) subcut DAILY #3 mL 04/11/22 [Rx Last Taken Unknown] metformin 1,000 mg tablet 1,000 mg PO BID #60 tabs 04/11/22 [Rx Last Taken Unknown] pen needle, diabetic 32 gauge x 5/32 (BD Ultra-Fine Josefina Pen Needle) #50 ea 04/11/22 [Rx Last Taken Unknown] guaifenesin 600 mg tablet, extended release 12 hr (Mucinex) 600 mg PO Q12H PRN congestion #14 tabs 05/03/22 [Rx Last Taken Unknown] Allergy/AdvReac Type Severity Reaction Status Date / Time No Known Allergies Allergy Verified 07/26/22 11:15 Family History Mother Diabetes Father Diabetes Cancer Hx mesothelioma. Surgical History No history of previous surgery Social History household members: other details: Lives with her son. Her son is also an alcoholic. Smoking Status: Former smoker alcohol intake: current alcohol intake frequency: 3 or more drinks per day details: Reports at least 4 beers daily, not forthcoming with use details. substance use type: does not use ROS ROS ED Constitutional Constitutional ED: Denies chills, fever(s), subjective, sweats or weight loss Eyes Eyes: Reports blurry vision bilateral; Denies change in vision or diplopia ENT ENT ED: Denies ear pain, rhinorrhea or sore throat Cardiovascular Cardiovascular: Denies chest pain, orthopnea, palpitations, paroxysmal nocturnal dyspnea or racing heartbeat Respiratory/Chest Respiratory/Chest: Reports dyspnea; Denies cough, dyspnea on exertion, orthopnea or paroxysmal nocturnal dyspnea Gastrointestinal Gastrointestinal: Reports nausea; Denies abdominal pain, constipation, diarrhea, melena or vomiting Genitourinary Genitourinary ED: Reports urinary frequency; Denies dysuria or hematuria Musculoskeletal Musculoskeletal: Denies arthralgias, back pain, myalgias or neck pain Integumentary Reports other Details: Additional documented HPI narrative ; Denies abscess, Abrasions or rash Neurologic Neurologic: Denies headache(s) or weakness Psychiatric Psychiatric: Denies anxiety Endocrine Endocrinology: Reports polydipsia and polyuria Hematologic/Lymphatic Hematologic/Lymphatic: Reports systems reviewed and no addt'l complaints, except as documented EXAM Physical Exam Const Vital Signs: 07/26/22 11:12 07/26/22 11:33 Temperature 98.0 F Temperature Source Temporal Pulse Rate 117 H Respiratory Rate 20 H Respiratory Effort Short of Breath Respiratory Pattern Tachypnea Blood Pressure 175/82 H Blood Pressure Mean 113 Pulse Ox 100 Oxygen Delivery Method Room Air Room Air Positive well nourished and well developed Constitutional Narrative: Patient appears ill. She is tachypneic. She has ketotic odor to her breath. General Appearance ED: well developed; Negative for cyanotic, diaphoretic or NAD HEENT Reports dry mucous membranes HEENT Narrative: Head is atraumatic normocephalic. Ears normal. TMs normal. Nares patent. Uvula midline. No erythema or exudate the posterior pharynx. Mouth ED: Yes dry mucous membranes Mouth: dry mucous membranes Eyes PERRL and EOMs intact bilaterally General Eye ED: Negative for pale conjunctiva or scleral icterus Neck no lymphadenopathy, supple and no JVD Chest Wall inspection of chest normal and palpation of chest normal Resp normal respiratory effort and clear to auscultation bilaterally Cardio regular rhythm, S1 normal heart sound, S2 normal heart sound and no murmurs Rate: tachycardic GI normal to inspection, nondistended, normoactive bowel sounds, non-tender, non-distended and no masses; Negative for hepatosplenomegaly Back/Spine no CVA tenderness Cervical Spine: Negative for cervical spine tenderness Thoracic Spine / Upper Back: Negative for thoracic spinal tenderness Lumbar Spine / Lower Back: Negative for lumbar spinal tenderness Extremity Negative for normal to inspection Extremity Narrative: Superficial/first-degree burn volar surface right forearm Neuro oriented x3, CN's II-XII intact bilaterally and no sensory deficits noted Sensorium / Orientation: alert Psych mental status grossly normal Skin no rashes or lesions noted, No no wounds and No skin turgor normal Skin Narrative: Previously done MDM MDM MDM Narrative Medical decision making narrative: With tachycardia, tachypnea, ketotic odor breath with elevated blood sugar and symptoms of hyperglycemia suspect patient is in DKA. Patient received 1 L of normal saline which is equivalent to 20 cc/kg. Will await blood results. Once fluids have infused we will start insulin if patient is in DKA as suspected. UA was obtained to rule out urinary tract infection. CBC to assess white count differential. EKG to assess for cardiac ischemia and hyperkalemia. Patient records were reviewed. She was noted to be in DKA July 2021 and February 2022. Patient had BRITTNI with admission in July and COVID with admission in February. Patient also has history of hypertension and depression. X-ray was not obtained since patient has no abnormal auscultatory findings and suspect her shortness of breath is due to DKA. Lab Data Attestation: I reviewed the patient's lab results. Lab results narrative: CBC and differential are unremarkable. PTT is greater than 500. Basic metabolic panel reveals a blood sugar of 686 with a CO2 of 6 and anion gap of 27. Creatinine is 1.32 with a GFR of 44. Additional fluids were ordered and insulin drip. Patient require admission to the ICU. Labs: Laboratory Results - last 24 hr 07/26/22 07/26/22 07/26/22 11:23 11:35 11:35 WBC 9.7 RBC 4.25 Hgb 12.5 Hct 38.1 MCV 89.6 MCH 29.4 MCHC 32.8 RDW Std Deviation 43.4 RDW Coeff of Nellie 13.2 Plt Count 234 MPV 12.0 Immature Gran % (Auto) 2.300 H Neut % (Auto) 79.8 H Lymph % (Auto) 12.1 L Bradley % (Auto) 5.0 Eos % (Auto) 0.1 Baso % (Auto) 0.7 Absolute Neuts (auto) 7.7 Absolute Lymphs (auto) 1.17 Nucleated RBC % 0 Sodium 132 L Potassium 4.2 Chloride 99 Carbon Dioxide 6.0 L* Anion Gap 27 H BUN 14 Creatinine 1.32 H Estim Creat Clear Calc 37.49 Est GFR (MDRD) Af Amer 53 L Est GFR (MDRD) Non-Af 44 L BUN/Creatinine Ratio 10.6 Glucose 686 H* Calcium 9.7 Magnesium 2.3 POC Glucose > 500 H* Rhythm Strip Rhythm Strip: Sinus Tach Rate: 122 Ectopy: None EKG Initial EKG: Attestation: I personally reviewed and interpreted this EKG as follows: Interpretation: Sinus Tachycardia (Heart rate is 111. AZ interval is 188 ms. Cures duration 92 ms. QT duration during 26 ms. Zanoni is normal. There is artifact noted. There may be nonseptic ST-T wave changes.) Critical Care Time Critical Care Time: Yes Critical care time (excluding procedures): 30-74 minutes (32), Including time spent: (ObtainedHistory, physical, documentation, review of prior records, initiation of therapy laboratory results), Discussing w/Patient &/or Family/Design Maintenance Engineer, Discussing w/Consultants and Arranging Admission or Transfer Discharge Plan Dx/Rx/DC Orders Clinical Impression: Diabetic keto-acidosis, Sinus tachycardia, Elevated serum creatinine, Tachypnea Disposition Disposition: Acute Care Hospital [facility]
[2022-07-26] MEDS: 0.9% Normal Saline 1,000 ML 999 ML IV (11:37)
[2022-07-26 11:50] LABS: Bedside Glucose > 500 mg/dL (74-106)
[2022-07-26 11:51] LABS: Absolute Lymphocyte Count 1.17 X10^3/uL (0.83-4.51); Absolute Neutrophil Count 7.7 X10^3/uL (2.0-7.7); Basophil# 0.07 X10^3/uL; Basophil% 0.7 % (0-1); Eosinophil# 0.01 X10^3/uL; Eosinophils% 0.1 % (0-5); Hematocrit 38.1 % (37-47); Hemoglobin 12.5 g/dL (12.0-15.0); Lymphocyte # 1.17 X10^3/ul (0.83-4.51); Lymphocyte % 12.1 % (19-41); Mean Corp Hgb Conc 32.8 g/dL (32-36); Mean Corpuscular Hgb 29.4 pg (27.0-32.0); Mean Corpuscular Volume 89.6 fL (81-99); Monocyte# 0.48 X10^3/uL; NRBC Flagged by Analyzer 0 % (0-5); Neutrophil # 7.73 X10^3/uL (2.7-7.7); Neutrophil % 79.8 % (47-70); Platelet Count 234 K/mm3 (150-450); RBC Distribution Width CV 13.2 % (11.6-14.6); RBC Distribution Width SD 43.4 fl (35.1-43.9); Red Blood Count 4.25 M/mm3 (4.2-5.4); White Blood Count 9.7 K/mm3 (4.4-11.0)
[2022-07-26 12:04] LABS: Anion Gap 27 (5-15); BUN 14 mg/dL (7-18); BUN/Creat Ratio 10.6 RATIO (10-20); Calcium,Total 9.7 mg/dL (8.5-10.1); Chloride 99 mmol/L (98-107); Creatinine, Serum 1.32 mg/dL (0.55-1.02); EST Glomerular Filtration Rate 44 mL/min (>60); Est Glom Filt Rate - Afr Amer 53 mL/min (>60); Estimated Creatinine Clearance 37.49 ml/min; Glucose 686 mg/dL (74-106); Magnesium 2.3 mg/dL (1.6-2.6); Potassium 4.2 mmol/L (3.5-5.1); Sodium Level 132 mmol/L (136-145)
[2022-07-26] MEDS: 0.9% Normal Saline 1,000 ML 500 ML IV ×2 (12:42→14:14)
--- NOTE | 2022-07-26 13:25 | ED.RN ---
REPORT CALLED TO ZAINAB, ASSISTANT LABORATORY DIRECTOR. ZAINAB NOTIFIED OF CHANGE, DECREASE, OF BGL >100, THUS INSULIN RATE DECREASING 50%.
--- NOTE | 2022-07-26 13:40 | HP.PCM.HOS_ITS ---
HPI - General General Date of Admission: 07/26/22 Date of Service: 07/26/22 Chief Complaint: weak HPI Narrative ROBERT BRUCE, is a 62 F who presents presents with weakness. Over the past few days, patient has just progressively gotten weak but has noticed over the past month. Patient's blood sugars have been high but insist that she is taking her insulin as instructed.'s complaints additionally shortness of breath chest pain, abdominal pain. Patient presented to the emergency room and was found to be in DKA and with a blood sugar of 66. Patient received IV fluids as well as started on insulin drip. The hospitalist service was contacted for admission. [facility] Medical History Anxiety and depression COVID-19 Diabetes Diabetes mellitus, type 2 ETOH abuse GERD (gastroesophageal reflux disease) HTN (hypertension) Hypokalemia Tobacco use Home Medications lisinopril 2.5 mg tablet 2.5 mg PO DAILY blood pressurre 07/14/19 [History Last Taken 07/25/22] flash glucose sensor (FreeStyle Moncho 2 Sensor kit) #2 ea 04/11/22 [Rx Last Taken Unknown] pen needle, diabetic 32 gauge x 5/32 (BD Ultra-Fine Josefina Pen Needle) #50 ea 04/11/22 [Rx Last Taken Unknown] glimepiride 2 mg tablet 2 mg PO BID diabetes 07/26/22 [History Last Taken 07/25/22] insulin glargine U-300 conc 300 unit/mL (3 mL) subcutaneous pen (Toujeo Max U- 300 SoloStar) 20 unit subcut DAILY diabetes 07/26/22 [History Last Taken 07/25/22] metformin 1,000 mg tablet 1,000 mg PO BID diabetes 07/26/22 [History Last Taken 07/25/22] naproxen 500 mg tablet 500 mg PO DAILY PRN Pain 07/26/22 [History Last Taken 07/22/22] sertraline 100 mg tablet 100 mg PO DAILY depression 07/26/22 [History Last Taken 07/25/22] Allergy/AdvReac Type Severity Reaction Status Date / Time No Known Allergies Allergy Verified 07/26/22 11:15 Family History Mother Diabetes Father Diabetes Cancer Hx mesothelioma. Surgical History No history of previous surgery Social History household members: other details: Lives with her son. Her son is also an alcoholic. Smoking Status: Former smoker alcohol intake: current alcohol intake frequency: 3 or more drinks per day details: Reports at least 4 beers daily, not forthcoming with use details. substance use type: does not use ROS ROS Narrative All review of systems were negative except as mentioned above in the history of present illness and the other review of systems. Vital Signs Vital Signs Vital Signs: 07/26/22 11:12 07/26/22 11:33 07/26/22 13:00 Temperature 36.7 C Temperature Source Temporal Pulse Rate 117 H 107 H Respiratory Rate 20 H 27 H Respiratory Effort Short of Breath Respiratory Pattern Tachypnea Blood Pressure 175/82 H 138/73 H Blood Pressure Mean 113 94 Pulse Ox 100 100 Oxygen Delivery Method Room Air Room Air Room Air 07/26/22 13:00 Temperature 36.3 C L Temperature Source Oral Pulse Rate 107 H Respiratory Rate 27 H Respiratory Effort Respiratory Pattern Blood Pressure 138/73 H Blood Pressure Mean 94 Pulse Ox 99 Oxygen Delivery Method Room Air Weight Weight: 54.431 kg Body Mass Index (BMI) 21.2 Physical Exam Const alert and no apparent distress Constitutional Narrative: Listless. Afebrile. HEENT normocephalic and head/scalp atraumatic Resp normal respiratory effort, no retractions, no use of accessory muscles and clear to auscultation bilaterally Cardio regular rate, regular rhythm, S1 normal heart sound and S2 normal heart sound GI normal to inspection, nondistended, normoactive bowel sounds, soft to palpation and non-tender Extremity normal to inspection Results Lab / Micro Data Attestation: I reviewed the patient's lab results. Result Diagrams: 07/26/22 11:35 07/26/22 11:35 Labs: Laboratory Results - last 24 hr 07/26/22 11:23: POC Glucose > 500 H* 07/26/22 11:35: WBC 9.7, RBC 4.25, Hgb 12.5, Hct 38.1, MCV 89.6, MCH 29.4, MCHC 32.8, RDW Std Deviation 43.4, RDW Coeff of Nellie 13.2, Plt Count 234, MPV 12.0, Immature Gran % (Auto) 2.300 H, Neut % (Auto) 79.8 H, Lymph % (Auto) 12.1 L, Swift % (Auto) 5.0, Eos % (Auto) 0.1, Baso % (Auto) 0.7, Absolute Neuts (auto) 7.7, Absolute Lymphs (auto) 1.17, Nucleated RBC % 0 07/26/22 11:35: Sodium 132 L, Potassium 4.2, Chloride 99, Carbon Dioxide 6.0 L*, Anion Gap 27 H, BUN 14, Creatinine 1.32 H, Estim Creat Clear Calc 37.49, Est GFR (MDRD) Af Amer 53 L, Est GFR (MDRD) Non-Af 44 L, BUN/Creatinine Ratio 10.6, Glucose 686 H*, Calcium 9.7, Magnesium 2.3 Rhythm Strip Rhythm Strip: Sinus Tach Rate: 122 Ectopy: None Assessment & Plan Assessment/Plan (1) Diabetic keto-acidosis: PLAN: Insulin drip and IV fluids Monitor BMP is CLOSE and then can resume basal insulin. Patient is described as a type II diabetic. Will hold off on any further glimepiride and metformin. Check an A1c Anticipate patient will require larger dose of insulin at [facility] (2) BRITTNI (acute kidney injury): PLAN: Likely due to prerenal azotemia as patient was having polyuria and polydipsia. IV fluids Follow-up PLAN: Plan VTE prophylaxis with enoxaparin.
[2022-07-26 13:55] LABS: Bedside Glucose 462 mg/dL (74-106)
[2022-07-26 14:47] LABS: Bacteria 0 SEEN /hpf (None Seen); Mucous, Urine 0 SEEN /hpf (<or=2+); Squamous Epithelial Cells - UA 0 SEEN /hpf (5-10); White Blood Cells 0 SEEN /hpf (0-5)
[2022-07-26 14:53] LABS: Anion Gap 19 (5-15); BUN 13 mg/dL (7-18); BUN/Creat Ratio 13.3 RATIO (10-20); Calcium,Total 8.4 mg/dL (8.5-10.1); Chloride 110 mmol/L (98-107); Creatinine, Serum 0.98 mg/dL (0.55-1.02); EST Glomerular Filtration Rate 62 mL/min (>60); Est Glom Filt Rate - Afr Amer 75 mL/min (>60); Estimated Creatinine Clearance 47.61 ml/min; Glucose 465 mg/dL (74-106); Potassium 3.1 mmol/L (3.5-5.1); Sodium Level 137 mmol/L (136-145)
[2022-07-26 15:10] LABS: Bedside Glucose 409 mg/dL (74-106)
[2022-07-26 15:11] LABS: Color, Urine Straw (Yellow); Glucose, Dipstick 1000 mg/dl (Normal); Leukocyte Esterase-Dipstick Negative /ul (Negative); Nitrite-Dipstick Negative (Negative); Occult Blood-Urine 10 /ul (Negative); Protein-Dipstick 30 mg/dl (Negative); Specific Gravity, Urine 1.015 (1.002-1.030); Urine Bilirubin Dipstick Negative (Negative); Urine Clarity Clear (Clear); Urine Urobilinogen Normal (Normal); Urine pH 6.5 (5.0 - 8.0)
[2022-07-26 15:15] LABS: Ketone-Dipstick 150 mg/dl (Negative)
[2022-07-26] MEDS: Acetaminophen 325 MG Tablet 650 MG PO (15:21)
[2022-07-26 15:26] LABS: Red Blood Cells-Urine 0-5 SEEN /hpf (0-5)
[2022-07-26 16:10] LABS: Bedside Glucose 259 mg/dL (74-106)
[2022-07-26 16:58] LABS: Hemoglobin A1c > 14.0 % (3.8-5.6)
[2022-07-26] MEDS: 0.9% Normal Saline 1,000 ML 250 ML IV (17:00)
[2022-07-26 17:21] LABS: Bedside Glucose 308 mg/dL (74-106)
[2022-07-26 18:10] LABS: Bedside Glucose 257 mg/dL (74-106)
[2022-07-26 19:16] LABS: Bedside Glucose 206 mg/dL (74-106)
[2022-07-26 19:23] LABS: Anion Gap 14 (5-15); BUN 12 mg/dL (7-18); BUN/Creat Ratio 13.5 RATIO (10-20); Calcium,Total 8.6 mg/dL (8.5-10.1); Chloride 118 mmol/L (98-107); Creatinine, Serum 0.89 mg/dL (0.55-1.02); EST Glomerular Filtration Rate 69 mL/min (>60); Est Glom Filt Rate - Afr Amer 83 mL/min (>60); Estimated Creatinine Clearance 52.42 ml/min; Glucose 251 mg/dL (74-106); Potassium 2.6 mmol/L (3.5-5.1); Sodium Level 142 mmol/L (136-145)
[2022-07-26] MEDS: Dext 5%-0.45% NS 1,000 ML 150 ML IV (19:38)
[2022-07-26 20:55] LABS: Bedside Glucose 205 mg/dL (74-106)
[2022-07-26] MEDS: Potassium Chloride 40 MEQ in Dext 5%-0.45% NS 1,000 ML 150 MEQ IV (20:59)
[2022-07-26] MEDS: Potassium Chloride Oral Tablet 20 MEQ 40 MEQ PO (20:59)
[2022-07-26 21:30] LABS: Bedside Glucose 206 mg/dL (74-106)
[2022-07-26] MEDS: Naproxen 500 MG Tablet PO (21:37)
[2022-07-26 22:30] LABS: Bedside Glucose 198 mg/dL (74-106)
[2022-07-26 22:37] LABS: Anion Gap 11 (5-15); BUN 11 mg/dL (7-18); BUN/Creat Ratio 11.6 RATIO (10-20); Calcium,Total 8.5 mg/dL (8.5-10.1); Chloride 118 mmol/L (98-107); Creatinine, Serum 0.95 mg/dL (0.55-1.02); EST Glomerular Filtration Rate 64 mL/min (>60); Est Glom Filt Rate - Afr Amer 77 mL/min (>60); Estimated Creatinine Clearance 49.11 ml/min; Glucose 240 mg/dL (74-106); Potassium 2.9 mmol/L (3.5-5.1); Sodium Level 142 mmol/L (136-145)
[2022-07-26 23:46] LABS: Bedside Glucose 230 mg/dL (74-106)
[2022-07-27] VITALS (12 sets, daily range): BP systolic 106–133; BP diastolic 52–76; PULSE 85–95; RESP 14–19; TEMP 36.6–37.2; O2SAT 97–100
[2022-07-27 00:30] LABS: Bedside Glucose 248 mg/dL (74-106)
[2022-07-27 01:35] LABS: Bedside Glucose 219 mg/dL (74-106)
[2022-07-27 02:40] LABS: Anion Gap 6 (5-15); BUN 11 mg/dL (7-18); BUN/Creat Ratio 12.2 RATIO (10-20); Calcium,Total 8.4 mg/dL (8.5-10.1); Chloride 122 mmol/L (98-107); EST Glomerular Filtration Rate 68 mL/min (>60); Est Glom Filt Rate - Afr Amer 82 mL/min (>60); Estimated Creatinine Clearance 51.84 ml/min; Glucose 194 mg/dL (74-106); Potassium 3.1 mmol/L (3.5-5.1); Sodium Level 143 mmol/L (136-145)
[2022-07-27 02:41] LABS: Bedside Glucose 195 mg/dL (74-106)
[2022-07-27 03:30] LABS: Bedside Glucose 138 mg/dL (74-106)
[2022-07-27] MEDS: Potassium Chloride 40 MEQ in Dext 5%-0.45% NS 1,000 ML 150 MEQ IV (04:04)
[2022-07-27 04:26] LABS: Bedside Glucose 112 mg/dL (74-106)
[2022-07-27 05:31] LABS: Bedside Glucose 102 mg/dL (74-106)
[2022-07-27 05:53] LABS: Absolute Lymphocyte Count 1.63 X10^3/uL (0.83-4.51); Absolute Neutrophil Count 3.2 X10^3/uL (2.0-7.7); Basophil# 0.02 X10^3/uL; Basophil% 0.4 % (0-1); Eosinophil# 0.05 X10^3/uL; Eosinophils% 0.9 % (0-5); Hematocrit 28.8 % (37-47); Hemoglobin 10.2 g/dL (12.0-15.0); Lymphocyte # 1.63 X10^3/ul (0.83-4.51); Lymphocyte % 29.5 % (19-41); Mean Corp Hgb Conc 35.4 g/dL (32-36); Mean Corpuscular Hgb 30.3 pg (27.0-32.0); Mean Corpuscular Volume 85.5 fL (81-99); Mean Platelet Vol. 11.1 fl (6.2-12.0); Monocyte# 0.57 X10^3/uL; Monocyte% 10.3 % (0-10); NRBC Flagged by Analyzer 0 % (0-5); Neutrophil # 3.23 X10^3/uL (2.7-7.7); Neutrophil % 58.4 % (47-70); Platelet Count 156 K/mm3 (150-450); RBC Distribution Width CV 13.2 % (11.6-14.6); RBC Distribution Width SD 40.8 fl (35.1-43.9); Red Blood Count 3.37 M/mm3 (4.2-5.4); White Blood Count 5.5 K/mm3 (4.4-11.0)
[2022-07-27 06:05] LABS: Bedside Glucose 101 mg/dL (74-106)
[2022-07-27 06:09] LABS: Anion Gap 6 (5-15); BUN 11 mg/dL (7-18); BUN/Creat Ratio 13.8 RATIO (10-20); Calcium,Total 8.5 mg/dL (8.5-10.1); Chloride 122 mmol/L (98-107); EST Glomerular Filtration Rate 78 mL/min (>60); Est Glom Filt Rate - Afr Amer 95 mL/min (>60); Estimated Creatinine Clearance 58.91 ml/min; Glucose 105 mg/dL (74-106); Potassium 3.1 mmol/L (3.5-5.1); Sodium Level 144 mmol/L (136-145)
[2022-07-27 07:20] LABS: Bedside Glucose 78 mg/dL (74-106)
--- NOTE | 2022-07-27 07:39 | PCM.PN.HOSP ---
Subjective Subjective Feels well. Objective Data Objective Data Vital Signs: Vital Signs Temp Pulse Resp BP Pulse Ox O2 Del Method 36.9 C 90 14 132/66 H 99 Room Air 07/27/22 04:00 07/27/22 07:00 07/27/22 07:00 07/27/22 07:00 07/27/22 07:00 07/27/22 07:00 Oxygen Delivery Method Room Air Weight: 49.9 kg Body Mass Index (BMI) 19.3 Intake & Output: Intake and Output for Last 24 Hours 07/25/22 07/26/22 07/27/22 23:59 23:59 23:59 Intake Total 2662.72 / 2662.72 3028.13 / 3028.13 Output Total 1200 / 1700 500 / 500 Balance 1462.72 / 962.72 2528.13 / 2528.13 Medical Nutrition Assessment Dietitian: Malnutrition Criteria Met Start: 07/26/22 15:35 Freq: Status: Active Protocol: Document 07/26/22 15:35 SLA (Rec: 07/26/22 15:35 SLA [id number]) Nutrition Malnutrition Evidence of Malnutrition Exists Yes Malnutrition (severe): Acute Illness/Injury Evidenced By Suboptimal Energy Intake ( Severe),Weight Loss (Severe), Physical Changes (Moderate) Clinical Problem Acute Disease or Injury Related Malnutrition Etiology related to increased stress and irregular eating Signs/Symptoms as evidenced by 8.6% wt loss and consuming less than 50% of est nutritional needs x 2 wks - also w/ fat/muscle loss in face, clavicles, scapula, arms Status Active Problem Altered Nutrient-Related Laboratory Values Etiology related to diabetes Signs/Symptoms as evidenced by gluc 686 at time of adm Status Active Problem Recommendation Dietitian Recommendations/Changes As medically able, rec SARWAT to Consistent CHO As medically able, rec 4 oz glucerna shake 4x/day w/ medpass Will provide diet education to pt prior to discharge as indicated by pt. Lab / Micro Data Result Diagrams: 07/27/22 05:45 07/27/22 05:45 Labs: Laboratory Results - last 24 hr 07/26/22 11:23: POC Glucose > 500 H* 07/26/22 11:35: WBC 9.7, RBC 4.25, Hgb 12.5, Hct 38.1, MCV 89.6, MCH 29.4, MCHC 32.8, RDW Std Deviation 43.4, RDW Coeff of Nellie 13.2, Plt Count 234, MPV 12.0, Immature Gran % (Auto) 2.300 H, Neut % (Auto) 79.8 H, Lymph % (Auto) 12.1 L, Andrews % (Auto) 5.0, Eos % (Auto) 0.1, Baso % (Auto) 0.7, Absolute Neuts (auto) 7.7, Absolute Lymphs (auto) 1.17, Nucleated RBC % 0 07/26/22 11:35: Sodium 132 L, Potassium 4.2, Chloride 99, Carbon Dioxide 6.0 L*, Anion Gap 27 H, BUN 14, Creatinine 1.32 H, Estim Creat Clear Calc 37.49, Est GFR (MDRD) Af Amer 53 L, Est GFR (MDRD) Non-Af 44 L, BUN/Creatinine Ratio 10.6, Glucose 686 H*, Calcium 9.7, Magnesium 2.3 07/26/22 11:35: Hemoglobin A1c > 14.0 H 07/26/22 13:29: POC Glucose 462 H* 07/26/22 14:10: Sodium 137, Potassium 3.1 L, Chloride 110 H, Carbon Dioxide 8.0 L*, Anion Gap 19 H, BUN 13, Creatinine 0.98, Estim Creat Clear Calc 47.61, Est GFR (MDRD) Af Amer 75, Est GFR (MDRD) Non-Af 62, BUN/Creatinine Ratio 13.3, Glucose 465 H*, Calcium 8.4 L 07/26/22 14:35: Urine Color Straw, Urine Clarity Clear, Urine pH 6.5, Ur Specific [place] 1.015, Urine Protein 30 H, Urine Glucose (UA) 1000 H, Urine Ketones 150 A*, Urine Occult Blood 10 H, Urine Nitrite Negative, Urine Bilirubin Negative, Urine Urobilinogen Normal, Ur Leukocyte Esterase Negative, Urine RBC 0-5 SEEN, Urine WBC 0 SEEN, Ur Squamous Epith Cells 0 SEEN, Urine Bacteria 0 SEEN, Urine Mucus 0 SEEN 07/26/22 14:44: POC Glucose 409 H 07/26/22 15:47: POC Glucose 259 H 07/26/22 16:57: POC Glucose 308 H 07/26/22 17:52: POC Glucose 257 H 07/26/22 18:12: Sodium 142, Potassium 2.6 L*, Chloride 118 H, Carbon Dioxide 10.0 L, Anion Gap 14, BUN 12, Creatinine 0.89, Estim Creat Clear Calc 52.42, Est GFR (MDRD) Af Amer 83, Est GFR (MDRD) Non-Af 69, BUN/Creatinine Ratio 13.5, Glucose 251 H, Calcium 8.6 07/26/22 18:59: POC Glucose 206 H 07/26/22 20:05: POC Glucose 205 H 07/26/22 21:07: POC Glucose 206 H 07/26/22 22:03: POC Glucose 198 H 07/26/22 22:15: Sodium 142, Potassium 2.9 L, Chloride 118 H, Carbon Dioxide 13.0 L, Anion Gap 11, BUN 11, Creatinine 0.95, Estim Creat Clear Calc 49.11, Est GFR (MDRD) Af Amer 77, Est GFR (MDRD) Non-Af 64, BUN/Creatinine Ratio 11.6, Glucose 240 H, Calcium 8.5 07/26/22 23:18: POC Glucose 230 H 07/27/22 00:08: POC Glucose 248 H 07/27/22 01:08: POC Glucose 219 H 07/27/22 02:15: Sodium 143, Potassium 3.1 L, Chloride 122 H, Carbon Dioxide 15.0 L, Anion Gap 6, BUN 11, Creatinine 0.90, Estim Creat Clear Calc 51.84, Est GFR (MDRD) Af Amer 82, Est GFR (MDRD) Non-Af 68, BUN/Creatinine Ratio 12.2, Glucose 194 H, Calcium 8.4 L 07/27/22 02:15: POC Glucose 195 H 07/27/22 03:06: POC Glucose 138 H 07/27/22 04:02: POC Glucose 112 H 07/27/22 05:11: POC Glucose 102 07/27/22 05:45: WBC 5.5, RBC 3.37 L, Hgb 10.2 L, Hct 28.8 L, MCV 85.5, MCH 30.3, MCHC 35.4 D, RDW Std Deviation 40.8, RDW Coeff of Nellie 13.2, Plt Count 156, MPV 11.1, Immature Gran % (Auto) 0.500, Neut % (Auto) 58.4, Lymph % (Auto) 29.5, Andrews % (Auto) 10.3 H, Eos % (Auto) 0.9, Baso % (Auto) 0.4, Absolute Neuts (auto) 3.2, Absolute Lymphs (auto) 1.63, Nucleated RBC % 0 07/27/22 05:45: Sodium 144, Potassium 3.1 L, Chloride 122 H, Carbon Dioxide 16.0 L, Anion Gap 6, BUN 11, Creatinine 0.80, Estim Creat Clear Calc 58.91, Est GFR (MDRD) Af Amer 95, Est GFR (MDRD) Non-Af 78, BUN/Creatinine Ratio 13.8, Glucose 105, Calcium 8.5 07/27/22 05:45: POC Glucose 101 07/27/22 06:59: POC Glucose 78 Rhythm Strip Rhythm Strip: Sinus Tach Rate: 122 Ectopy: None Physical Exam Const alert, oriented x3 and no apparent distress HEENT head/scalp atraumatic and moist oral mucous membranes Eyes PERRL Resp normal respiratory effort, no retractions, no use of accessory muscles and clear to auscultation bilaterally Cardio regular rate, regular rhythm, S1 normal heart sound and S2 normal heart sound GI normal to inspection, nondistended, normoactive bowel sounds and soft to palpation Assessment & Plan Assessment/Plan (1) Diabetic keto-acidosis: PLAN: Resolved with Insulin drip and IV fluids Resume basal and prandial insulin Patient is described as a type II diabetic. Will hold off on any further glimepiride and metformin. A1c greater than 14, so clearly, patient is uncontrolled chronically. (2) BRITTNI (acute kidney injury): PLAN: Resolved. Likely due to prerenal azotemia as patient was having polyuria and polydipsia. IV fluids Follow-up (3) Hypokalemia: PLAN: Likely due to severe chronic depletion Mag normal at 2.3 Replace PLAN: Plan VTE prophylaxis with enoxaparin. Will monitor the patient overnight as I am changing her insulin protocol and discontinuing her oral agents. Charges/Coding Visit Charges Inpatient E&M: 08651 Subs Hosp L2
[2022-07-27 07:56] LABS: Bedside Glucose 72 mg/dL (74-106)
[2022-07-27] MEDS: Potassium Chloride Oral Tablet 20 MEQ 60 MEQ PO (08:31)
[2022-07-27 09:06] LABS: Bedside Glucose 127 mg/dL (74-106)
[2022-07-27] MEDS: Sertraline 100 MG Tablet PO (09:31)
[2022-07-27] MEDS: Enoxaparin 40 MG/0.4 ML Syringe SC (09:32)
[2022-07-27] MEDS: Lisinopril 2.5 MG Tablet PO (10:25)
--- NOTE | 2022-07-27 10:45 | CASEMGMT ---
JEFFRY TRINIDAD Face to Face with patient for initial transition planning/care coordination assessment. RN CM introduced self and role at [facility]. Patient sitting in chair, alert and oriented. Patient willing to participate in assessment and is able to answer all questions appropriately. Care providers, pharmacy, and demographics verified. Patient wishes to discharge home, denies need for home health at this time. Patient states she has no further needs or concerns at this time. CM to follow for discharge planning needs that may arise. PCP: Adonis Specialists: none Preferred [facility] Insurance: Only [employer] Prescription Benefit: yes Living Will/HPOA: none LNOK: son Living Arrangements: Patient lives with son in a single story duplex with 2 steps to enter. Patient states she is independent at home. Transportation: self, son DME/HHC: Patient states she has built in shower bench, grab bars. Patient has insulin and supplies at home. Patient states she has glucometer but is running low on test strips. Patient states her glucometer is a One Touch Ultra, hospitalist updated. No previous HHC or SNF Disposition Plan: Patient to discharge home with family support and follow-up plans in place. Jelena EUCEDA, RN, CM
[2022-07-27 11:31] LABS: Bedside Glucose 259 mg/dL (74-106)
[2022-07-27] MEDS: Insulin Lispro 100 UNIT/ML INSULN.PEN SC ×2 (11:42→16:49)
[2022-07-27] MEDS: Insulin Lispro 100 UNIT/ML INSULN.PEN 6 UNIT SC ×2 (11:42→16:48)
[2022-07-27 17:20] LABS: Bedside Glucose 233 mg/dL (74-106)
[2022-07-27] MEDS: Acetaminophen 325 MG Tablet 650 MG PO (20:01)
[2022-07-27] MEDS: Insulin Glargine-YFGN 100 UNIT/ML Pen 25 UNIT SC (21:24)
[2022-07-27 21:45] LABS: Bedside Glucose 198 mg/dL (74-106)
[2022-07-28 02:15] VITALS: BP 129/76; PULSE 77; RESP 16; TEMP 36.9; O2SAT 99
[2022-07-28 06:49] LABS: Anion Gap 7 (5-15); BUN 8 mg/dL (7-18); BUN/Creat Ratio 13.7 RATIO (10-20); Calcium,Total 8.8 mg/dL (8.5-10.1); Chloride 114 mmol/L (98-107); Creatinine, Serum 0.59 mg/dL (0.55-1.02); EST Glomerular Filtration Rate 111 mL/min (>60); Est Glom Filt Rate - Afr Amer 135 mL/min (>60); Estimated Creatinine Clearance 79.08 ml/min; Glucose 80 mg/dL (74-106); Potassium 2.5 mmol/L (3.5-5.1); Sodium Level 141 mmol/L (136-145)
[2022-07-28] MEDS: Potassium Chloride Oral Tablet 20 MEQ 60 MEQ PO (07:56)
[2022-07-28] MEDS: 0.9% Saline Lock 10 ML Syringe IV (07:58)
[2022-07-28] MEDS: Potassium Chloride 10mEq/100mL 10 MEQ/100 ML IV.SOLN. 100 MEQ IV BOLUS ×3 (07:59→10:24)
[2022-07-28] MEDS: Enoxaparin 40 MG/0.4 ML Syringe SC (08:19)
[2022-07-28] MEDS: Naproxen 500 MG Tablet PO (08:19)
[2022-07-28] MEDS: Lisinopril 2.5 MG Tablet PO (08:19)
[2022-07-28] MEDS: Sertraline 100 MG Tablet PO (08:19)
[2022-07-28 09:00] VITALS: BP 130/75; PULSE 93; RESP 18; TEMP 36.8; O2SAT 98
[2022-07-28 09:06] LABS: Bedside Glucose 106 mg/dL (74-106)
[2022-07-28 09:06] LABS: Bedside Glucose 57 mg/dL (74-106)
[2022-07-28] MEDS: Insulin Glargine-YFGN 100 UNIT/ML Pen 25 UNIT SC (11:04)
[2022-07-28] MEDS: Insulin Lispro 100 UNIT/ML INSULN.PEN 6 UNIT SC (12:09)
[2022-07-28] MEDS: Insulin Lispro 100 UNIT/ML INSULN.PEN SC (12:09)
[2022-07-28 12:30] LABS: Bedside Glucose 248 mg/dL (74-106)
--- NOTE | 2022-07-28 14:02 | PCM.DC ---
Discharge Instructions Diet Discharge Diet: 2000 Calorie Control Diet Follow Up Care Test Results: Test results from this visit will be discussed in further detail at your follow-up appointment, if applicable. Discharge Plan Admission Admit Date/Time: 07/26/22 13:09 Primary Reason for Your Visit: DKA Attending Provider: Sanjiv Ahumada Primary Care Provider: Milind Lamb Discharge Orders/Prescriptions Prescriptions: New insulin lispro [Humalog KwikPen Insulin] 100 unit/mL Insulin Pen 6 unit subcut TIDAC Qty: 15 0RF (DME) lancets [FreeStyle Lancets] 28 gauge misc See Rx Instructions .Route Qty: 100 0RF Rx Instructions: As directed (DME) FreeStyle Test Strip See Rx Instructions .Route Qty: 100 0RF Rx Instructions: As directed Continued lisinopril 2.5 mg tablet 2.5 mg PO DAILY (DME) FreeStyle Moncho 2 Sensor Kit See Rx Instructions .Route Qty: 2 5RF Rx Instructions: As directed sertraline 100 mg tablet 100 mg PO DAILY naproxen 500 mg tablet 500 mg PO DAILY PRN (Reason: Pain) (DME) pen needle, diabetic [BD Ultra-Fine Josefina Pen Needle] 32 gauge x 5/32 needle See Rx Instructions .ROUTE .MEDSUPPLY Qty: 50 5RF Rx Instructions: daily Changed Toujeo Max U-300 SoloStar 300 unit/mL (3 mL) insulin pen 20 unit subcut BID Qty: 6 0RF Discontinued glimepiride 2 mg tablet 2 mg PO BID metformin 1,000 mg tablet 1,000 mg PO BID Referrals / Follow Up: [facility] [Provider Group] - Within 1 Month Milind Lamb MD [Primary Care Provider] - Within 2 Weeks Disposition Disposition (needs filled in before D/C Order can be placed): Home, Self Care
--- NOTE | 2022-07-28 14:09 | PCM.DC.SUM ---
Providers Date of Admission: 07/26/22 Date of Discharge: 07/28/22 Primary Care Physician: Dr. Milind Lamb MD Reason For Visit: DKA Diagnosis Discharge Diagnosis (1) Diabetic keto-acidosis: Status: Acute Code(s): E11.10 - Type 2 diabetes mellitus with ketoacidosis without coma Plan: Resolved with Insulin drip and IV fluids Resume basal and prandial insulin Patient is described as a type II diabetic. Will hold off on any further glimepiride and metformin. A1c greater than 14, so clearly, patient is uncontrolled chronically. (2) BRITTNI (acute kidney injury): Status: Resolved Code(s): N17.9 - Acute kidney failure, unspecified Plan: Resolved. Likely due to prerenal azotemia as patient was having polyuria and polydipsia. IV fluids Follow-up (3) Hypokalemia: Status: Acute Code(s): E87.6 - Hypokalemia Plan: Likely due to severe chronic depletion Mag normal at 2.3 Replace Plan VTE prophylaxis with enoxaparin. Will monitor the patient overnight as I am changing her insulin protocol and discontinuing her oral agents. Medications at Discharge Home Medications lisinopril 2.5 mg tablet 2.5 mg PO DAILY blood pressurre 07/14/19 flash glucose sensor (FreeStyle Moncho 2 Sensor kit) #2 ea 04/11/22 naproxen 500 mg tablet 500 mg PO DAILY PRN Pain 07/26/22 sertraline 100 mg tablet 100 mg PO DAILY depression 07/26/22 blood sugar diagnostic (FreeStyle Test strips) #100 ea 07/28/22 insulin glargine U-300 conc 300 unit/mL (3 mL) subcutaneous pen (Toujeo Max U-300 SoloStar) 20 unit (0.0667 mL) subcut BID diabetes #6 mL 07/28/22 insulin lispro 100 unit/mL subcutaneous pen (Humalog KwikPen (U-100) Insulin) 6 unit (0.06 mL) subcut TIDAC #15 mL 07/28/22 lancets 28 gauge (FreeStyle Lancets) #100 ea 07/28/22 pen needle, diabetic 32 gauge x 5/32 (BD Ultra-Fine Josefina Pen Needle) #50 ea 07/28/22 Hospital Course Operations None Procedures None Summary of Care Provided Minutes Spent on Discharge: 35 Hospital Course: 8-year-old female presents with diabetic ketoacidosis. Patient was taking basal insulin but also metformin and glimepiride. Patient's A1c was 14. Patient was put on insulin drip and eventually switched over to basal insulin. Thus changed over to twice daily rather than the once daily she was taking at home. Also add prandial insulin as well. Patient advised to discontinue the metformin as well as glimepiride and continue with insulin regimen and check her blood sugar 3 times daily. Also recommend the patient follow-up with endocrinology in regards to further diabetes management. Physical Exam Const alert and no apparent distress Resp normal respiratory effort, no retractions, no use of accessory muscles and clear to auscultation bilaterally Cardio regular rate, regular rhythm, S1 normal heart sound and S2 normal heart sound GI normal to inspection, nondistended, normoactive bowel sounds, soft to palpation, non-tender and non-distended Medical Records Data Medical Nutrition Assessment Dietitian: Malnutrition Criteria Met Start: 07/26/22 15:35 Freq: Status: Active Protocol: Document 07/26/22 15:35 [facility] (Rec: 07/26/22 15:35 [facility] [id number]) Nutrition Malnutrition Evidence of Malnutrition Exists Yes Malnutrition (severe): Acute Illness/Injury Evidenced By Suboptimal Energy Intake ( Severe),Weight Loss (Severe), Physical Changes (Moderate) Clinical Problem Acute Disease or Injury Related Malnutrition Etiology related to increased stress and irregular eating Signs/Symptoms as evidenced by 8.6% wt loss and consuming less than 50% of est nutritional needs x 2 wks - also w/ fat/muscle loss in face, clavicles, scapula, arms Status Active Problem Altered Nutrient-Related Laboratory Values Etiology related to diabetes Signs/Symptoms as evidenced by gluc 686 at time of adm Status Active Problem Recommendation Dietitian Recommendations/Changes As medically able, rec SARWAT to Consistent CHO As medically able, rec 4 oz glucerna shake 4x/day w/ medpass Will provide diet education to pt prior to discharge as indicated by pt. Weight / BMI Weight Weight: 49.4 kg Body Mass Index (BMI) 19.3 ABG / Lab / Microbiology Data Result Diagrams: 07/27/22 05:45 07/28/22 05:33 Laboratory: Laboratory Results - last 24 hr 07/27/22 16:47: POC Glucose 233 H 07/27/22 21:23: POC Glucose 198 H 07/28/22 05:33: Sodium 141, Potassium 2.5 L*, Chloride 114 H, Carbon Dioxide 20.0 L, Anion Gap 7, BUN 8, Creatinine 0.59, Estim Creat Clear Calc 79.08, Est GFR (MDRD) Af Amer 135, Est GFR (MDRD) Non-Af 111, BUN/Creatinine Ratio 13.7, Glucose 80, Calcium 8.8 07/28/22 07:52: POC Glucose 57 L 07/28/22 08:23: POC Glucose 106 07/28/22 12:06: POC Glucose 248 H D/C Instructions Discharge Diet: 1999 Calorie Control Diet Meaningful Use Info Meaningful Use Diagnoses (Choose all that apply): None applicable Discharge Plan Admission Admit Date/Time: 07/26/22 13:09 Primary Reason for Your Visit: DKA Attending Provider: Sanjiv Ahumada Primary Care Provider: Milind Lamb Discharge Orders/Prescriptions Prescriptions: New insulin lispro [Humalog KwikPen Insulin] 100 unit/mL Insulin Pen 6 unit subcut TIDAC Qty: 15 0RF (DME) lancets [FreeStyle Lancets] 28 gauge misc See Rx Instructions .Route Qty: 100 0RF Rx Instructions: As directed (DME) FreeStyle Test Strip See Rx Instructions .Route Qty: 100 0RF Rx Instructions: As directed Continued lisinopril 2.5 mg tablet 2.5 mg PO DAILY (DME) FreeStyle Moncho 2 Sensor Kit See Rx Instructions .Route Qty: 2 5RF Rx Instructions: As directed sertraline 100 mg tablet 100 mg PO DAILY naproxen 500 mg tablet 500 mg PO DAILY PRN (Reason: Pain) (DME) pen needle, diabetic [BD Ultra-Fine Josefina Pen Needle] 32 gauge x 5/32 needle See Rx Instructions .ROUTE .MEDSUPPLY Qty: 50 5RF Rx Instructions: daily Changed Toujeo Max U-300 SoloStar 300 unit/mL (3 mL) insulin pen 20 unit subcut BID Qty: 6 0RF Discontinued glimepiride 2 mg tablet 2 mg PO BID metformin 1,000 mg tablet 1,000 mg PO BID Referrals / Follow Up: [facility] [Provider Group] - Within 1 Month Milind Lamb MD [Primary Care Provider] - Within 2 Weeks Disposition Disposition (needs filled in before D/C Order can be placed): Home, Self Care Charges/Coding Visit Charges Inpatient E&M: 30216 Disch Hosp >30min
[2022-07-28 14:10] VITALS: BP 124/72; PULSE 86; RESP 18; TEMP 36.6; O2SAT 98
== END 2022-07-28 15:38 | disposition home or self-care (01) | DRG 420 ==
LOC: ED 12:12 → MS3 07-28 14:08 → ICU 07-29 10:18
PROVIDERS: Hospitalist; Emergency Provider Emergency Medicine; PCP Family Medicine
DX: E11.10 Type 2 diabetes mellitus with ketoacidosis without coma (principal); E43 Unspecified severe protein-calorie malnutrition; N17.9 Acute kidney failure, unspecified; Z79.4 Long term (current) use of insulin; I10 Essential (primary) hypertension; E87.6 Hypokalemia; Z79.899 Other long term (current) drug therapy; Z86.16 Personal history of COVID-19; Z87.891 Personal history of nicotine dependence; Z68.1 Body mass index [BMI] 19.9 or less, adult
CPT/HCPCS: 36415; 80048; 81001; 82962; 83036; 83735; 85025; 93005; 97802; 99285; J7030; J7040; J7050; A4216; J7799

== ENCOUNTER → 2022-08-06 | Outpatient (CLI) | payer MEDICAID, SELFPAY ==
[2022-08-06 16:36] LABS: Anion Gap 7 (5-15); BUN 11 mg/dL (7-18); Calcium,Total 9.3 mg/dL (8.5-10.1); Chloride 94 mmol/L (98-107); Creatinine, Serum 0.91 mg/dL (0.55-1.02); EST Glomerular Filtration Rate 67 mL/min (>60); Est Glom Filt Rate - Afr Amer 81 mL/min (>60); Glucose 584 mg/dL (74-106); Potassium 4.4 mmol/L (3.5-5.1); Sodium Level 131 mmol/L (136-145)
== END | disposition home or self-care (01) ==
PROVIDERS: PCP Family Medicine; Referring Provider Nurse Practitioner Family; Visit Provider Nurse Practitioner Family
DX: E11.9 Type 2 diabetes mellitus without complications (principal)
CPT/HCPCS: 36415; 80048

== ENCOUNTER → 2023-05-21 | Outpatient (CLI) | payer MEDICAID, SELFPAY ==
[2023-05-21 18:08] LABS: Anion Gap 9 (5-15); BUN 20 mg/dL (7-18); BUN/Creat Ratio 22.5 RATIO (10-20); Calcium,Total 9.2 mg/dL (8.5-10.1); Chloride 100 mmol/L (98-107); Cholesterol 223 mg/dL (200); Creatinine, Serum 0.89 mg/dL (0.55-1.02); EST Glomerular Filtration Rate 69 mL/min (>60); Est Glom Filt Rate - Afr Amer 83 mL/min (>60); Glucose 371 mg/dL (74-106); High Density Lipoprotein 107 mg/dL; Sodium Level 134 mmol/L (136-145); Triglycerides 116 mg/dL; Very Low Density Lipoprotein 23 mg/dL (5-40)
== END | disposition home or self-care (01) ==
LOC: MFPLAB 15:35
PROVIDERS: PCP Family Medicine; Visit Provider Family Medicine
DX: E11.9 Type 2 diabetes mellitus without complications (principal)
CPT/HCPCS: 36415; 80048; 80061

== ENCOUNTER 2023-06-30 23:16 | Emergency (ER) | payer SELFPAY ==
[2023-06-30 23:17] VITALS: BP 169/87; PULSE 105; RESP 18; TEMP 36.2; O2SAT 100; BMI 21.9
--- NOTE | 2023-06-30 23:46 | RAD_ITS ---
INDICATION: pain EXAMINATION/TECHNIQUE: X-RAY - XR Spine Lumbar 2 or 3 Views COMPARISON: March 03, 2022. FINDINGS: VERTEBRAE: 5 nonrib-bearing lumbar type vertebra with normal morphology. Preserved lumbar lordosis without listhesis. Mild lumbar curvature. Minimal multilevel endplate osteophyte formation. Mild facet arthropathy L4-5 and L5-S1. DISCS: Mild disc height loss L4-5 and L5-S1. INCLUDED ABDOMEN: Large colonic stool burden.. Cholelithiasis. RAD/Lumbar Spine 2 or 3 Views IMPRESSION: No evidence of lumbar spinal fracture or spondylolisthesis. Mild spondylosis, most prominent at L4-5 and L5-S1 as above. Large stool burden as can be seen with constipation. Cholelithiasis. Electronically Signed: Eric Sorto MD at 0:47 EST ,
--- NOTE | 2023-06-30 23:47 | EDS_ITS ---
HPI History of Present Illness Chief Complaint: Back Informant: patient Narrative Narrative: 63-year-old diabetic female presenting to the emergency room with low back pain. Patient states that symptoms began 2 days ago when she woke. She denies any known direct trauma such as falls or heavy lifting. She states that the right calf and distal posterior thigh feel jittery. The pain is not necessarily worse with movement. She states she cannot sit still. She denies any urinary symptoms. No fevers no rashes. No difficulty with bowel or bladder control. She denies any foot drop or muscle weakness. She states that she lost Medicaid coverage and plans on getting in contact with jobs and family services to complete her packet. She states because of this she has been unable to get to her medications. She states she supposed to be taking lisinopril to protect her kidneys. She does not have lancets to check her blood sugar. She was post to be work at 5 hours. She states the pain has been keeping her up and she has been unable to sleep. PFSH PFSH Medical History Anxiety and depression COVID-19 Diabetes Diabetes mellitus, type 2 ETOH abuse GERD (gastroesophageal reflux disease) History of alcoholism HTN (hypertension) Hypokalemia Tobacco use Home Medications lisinopril 2.5 mg tablet 2.5 mg PO DAILY blood pressurre 07/14/19 [History Last Taken 07/25/22] flash glucose sensor (FreeStyle Moncho 2 Sensor kit) #2 ea 04/11/22 [Rx Last Taken Unknown] naproxen 500 mg tablet 500 mg PO DAILY PRN Pain 07/26/22 [History Last Taken 07/22/22] sertraline 100 mg tablet 100 mg PO DAILY depression 07/26/22 [History Last Taken 07/25/22] blood sugar diagnostic (FreeStyle Lite Strips) #100 ea 07/28/22 [Rx Last Taken Unknown] blood sugar diagnostic (FreeStyle Test strips) #100 ea 07/28/22 [Rx Last Taken Unknown] blood-glucose meter (FreeStyle Lite Meter kit) #1 ea 07/28/22 [Rx Last Taken Unknown] insulin glargine U-300 conc 300 unit/mL (3 mL) subcutaneous pen (Toujeo Max U- 300 SoloStar) 20 unit (0.0667 mL) subcut BID diabetes #6 mL 01/22/23 [Rx Last Taken 07/25/22] insulin lispro 100 unit/mL subcutaneous pen (Humalog KwikPen (U-100) Insulin) 6 unit (0.06 mL) subcut TIDAC #15 mL 07/28/22 [Rx Last Taken Unknown] lancets 28 gauge (FreeStyle Lancets) #100 ea 07/28/22 [Rx Last Taken Unknown] pen needle, diabetic 32 gauge x 5/32 (BD Ultra-Fine Josefina Pen Needle) #50 ea 07/28/22 [Rx Last Taken Unknown] diazepam 2 mg tablet 2 mg PO TID PRN PRN back pain #10 TABLETS 07/01/23 [Rx Last Taken Unknown] hydrocodone-acetaminophen 5-325mg 5mg-325mg 1 tab PO Q6H PRN PRN Pain 3 days #12 TABLETS 07/01/23 [Rx Last Taken Unknown] Allergy/AdvReac Type Severity Reaction Status Date / Time No Known Allergies Allergy Verified 06/30/23 23:18 Family History Mother Diabetes Father Diabetes Cancer Hx mesothelioma. Surgical History No history of previous surgery Social History household members: other details: Lives with her son. Her son is also an alcoholic. Smoking Status: Former smoker alcohol intake: current alcohol intake frequency: 3 or more drinks per day details: Reports at least 4 beers daily, not forthcoming with use details. substance use type: does not use ROS ROS ED Constitutional Constitutional ED: Denies chills, fever(s) or weight loss Eyes Eyes: Denies change in vision or diplopia ENT ENT ED: Denies ear pain, rhinorrhea or sore throat Cardiovascular Cardiovascular: Denies chest pain, orthopnea, palpitations or racing heartbeat Respiratory/Chest Respiratory/Chest: Denies cough, dyspnea or orthopnea Gastrointestinal Gastrointestinal: Denies abdominal pain, diarrhea, nausea or vomiting Genitourinary Genitourinary ED: Denies dysuria, hematuria or urinary frequency Musculoskeletal Musculoskeletal: Reports back pain and other Details: Right leg jitteriness in the calf and distal posterior thigh ; Denies arthralgias, myalgias or neck pain Integumentary Denies abscess or rash Neurologic Neurologic: Denies headache(s) or weakness Psychiatric Psychiatric: Denies anxiety, depression, suicidal ideation or suicidal thoughts Endocrine Endocrinology: Denies polydipsia, polyphagia or polyuria Allergic/Immunologic Allergic/Immunologic ED: Denies mouth swelling, tongue swelling or urticaria EXAM Physical Exam Const Vital Signs: 06/30/23 23:17 Temperature 97.2 F L Temperature Source Temporal Pulse Rate 105 H Respiratory Rate 18 Blood Pressure 169/87 H Blood Pressure Mean 114 Pulse Ox 100 Oxygen Delivery Method Room Air Positive well nourished and well developed General Appearance ED: well developed HEENT Reports normocephalic, head/scalp atraumatic and moist mucous membranes Eyes PERRL and EOMs intact bilaterally Neck no lymphadenopathy, supple and no JVD Resp normal respiratory effort and clear to auscultation bilaterally Cardio regular rate, regular rhythm and no murmurs GI normal to inspection, nondistended, normoactive bowel sounds and non-tender Palpation: soft Back/Spine no CVA tenderness and normal ROM Back/Spine Narrative: Patient points to the bilateral SI region as the area that hurts and notes that it extends out laterally. I do not appreciate any significant tissue texture changes such as swelling or erythema. It is not necessarily worse with palpation. Extremity normal to inspection General Extremety ED: Negative for edema General Extremity: Negative for edema Neuro oriented x3 and CN's II-XII intact bilaterally Neuro Narrative: Normal deep tendon reflex. Normal sensation. No evidence of foot drop. Normal hip flexion. Sensorium / Orientation: alert Motor Exam: strength 5/5 throughout Deep Tendon Reflexes: Rt Patellar (L4): 2+, Lt Patellar (L4): 2+, Rt Ankle (S1): 2+ and Lt Ankle (S1): 2+ Deep Tendon Reflexes Back: Rt Patellar (L4): 2+, Lt Patellar (L4): 2+, Rt Ankle (S1): 2+ and Lt Ankle (S1): 2+ Psych Mood & Affect: tearful; Negative for depressed Skin no rashes or lesions noted and no wounds MDM MDM MDM Narrative Medical decision making narrative: Patient's blood sugar was 490. She again tells me that she needs to take her insulin which she has at her house. My independent interpretation of the plain films of the lumbar spine is increased stool cholelithiasis and mild degenerative changes. Patient received a dose of Toradol. We talked about possible etiologies. Her description is nothing seems to make it better or worse and she cannot sit still. She is very anxious. She does not appear dehydrated. She notes she is moving her bowels normally. This does not sound like renal colic and the area that she points to is in the sacral region. She does not have any neurologic deficits fever or other infectious signs. We talked about conservative treatments with some pain medication and Valium to see if that helps her sleep. I encouraged her to take her insulin to get better control of her blood sugars. I do not think she is in DKA at this point. She is not tachypneic she is not having vomiting or extra fluid losses. Patient states she is urinating fine. Differential is extremely broad on this patient including musculoskeletal disorders, discitis, diabetic complications, zoster, sacroiliitis. I do not see acute neurologic deficits or sufficient evidence to call and for emergent MRI or for hospitalization. Patient has a lot of concerns regarding the financial implications of her healthcare which I understand some trying to work with her in the confines of that. Using shared decision making we are going to have her take her insulin at home. Lab Data Labs: Laboratory Results - last 24 hr 07/01/23 00:00 POC Glucose 490 H* Radiography Diagnostic Testing: Clinical Impression(s) from Imaging Studies Lumbar Spine X-Ray 06/30/23 23:46 IMPRESSION: No evidence of lumbar spinal fracture or spondylolisthesis. Mild spondylosis, most prominent at L4-5 and L5-S1 as above. Large stool burden as can be seen with constipation. Cholelithiasis. Electronically Signed: Eric Sorto MD at 0:47 EST , Discharge Plan Triage Chief Complaint: Back ED Provider: Aleksandar Rebolledo Dx/Rx/DC Orders Clinical Impression: Diabetes mellitus, type 2, Back pain Instructions: ED Pain, Acute, Uncertain Cause Prescriptions: New hydrocodone-acetaminophen [hydrocodone-acetaminophen] 5-325 mg tablet 1 tab PO Q6H PRN PRN (Reason: Pain) 3 Days Qty: 12 0RF diazepam [diazepam] 2 mg tablet 2 mg PO TID PRN PRN (Reason: back pain) Qty: 10 0RF No Action lisinopril 2.5 mg tablet 2.5 mg PO DAILY (DME) FreeStyle Moncho 2 Sensor Kit See Rx Instructions .Route Qty: 2 5RF Rx Instructions: As directed sertraline 100 mg tablet 100 mg PO DAILY naproxen 500 mg tablet 500 mg PO DAILY PRN (Reason: Pain) insulin lispro [Humalog KwikPen Insulin] 100 unit/mL Insulin Pen 6 unit subcut TIDAC Qty: 15 0RF (DME) lancets [FreeStyle Lancets] 28 gauge misc See Rx Instructions .Route Qty: 100 0RF Rx Instructions: As directed (DME) FreeStyle Test Strip See Rx Instructions .Route Qty: 100 0RF Rx Instructions: As directed (DME) pen needle, diabetic [BD Ultra-Fine Josefina Pen Needle] 32 gauge x 5/32 needle See Rx Instructions .ROUTE .MEDSUPPLY Qty: 50 5RF Rx Instructions: daily Toujeo Max U-300 SoloStar 300 unit/mL (3 mL) insulin pen 20 unit subcut BID Qty: 6 0RF (DME) blood-glucose meter [FreeStyle Lite Meter] Kit See Rx Instructions .Route Qty: 1 0RF Rx Instructions: As directed (DME) FreeStyle Lite Strips Strip See Rx Instructions .Route Qty: 100 0RF Rx Instructions: As directed Stand Alone Forms: ED Work / School Excuse Primary Care Provider: Milind Lamb Referrals: Milind Lamb MD [Primary Care Provider] - As soon as possible Activity Restrictions/Additional Instructions: Is obviously very important to manage your diabetes correctly. Make sure you are taking your medications. You may try speaking with your doctor for assistance in getting coverage or your medications. I have provided a good Rx card for you. Back pain in the setting of uncontrolled diabetes can be multifactorial. If you are developing any new neurologic symptoms (weakness numbness) or fever rash or worsening. Please return to emergency room for repeat examination. Disposition Disposition: Home, Self Care Discharge Date/Time: 07/01/23 01:56
[2023-07-01] MEDS: Ketorolac 60 MG/2 ML Vial IM (00:01)
[2023-07-01 00:24] LABS: Bedside Glucose 490 mg/dL (74-106)
== END 2023-07-01 01:56 | disposition home or self-care (01) ==
PROVIDERS: Emergency Provider Emergency Medicine; PCP Family Medicine; Visit Provider Emergency Medicine
DX: M54.50 Low back pain, unspecified (principal); F10.20 Alcohol dependence, uncomplicated; E11.65 Type 2 diabetes mellitus with hyperglycemia; Z79.4 Long term (current) use of insulin; X58.XXXA Exposure to other specified factors, initial encounter; I10 Essential (primary) hypertension; Y90.9 Presence of alcohol in blood, level not specified; Z59.7 Insufficient social insurance and welfare support; Z91.141 Patient's other noncompliance with medication regimen due to financial hardship; Z79.899 Other long term (current) drug therapy; Z86.16 Personal history of COVID-19; Z87.891 Personal history of nicotine dependence; Z81.1 Family history of alcohol abuse and dependence
CPT/HCPCS: 72100; 82962; 96372; 99282

== ENCOUNTER 2023-07-02 07:38 | Emergency (ER) | payer SELFPAY ==
[2023-07-02 07:39] VITALS: BP 149/79; PULSE 123; RESP 16; TEMP 36; O2SAT 100; BMI 21.4
[2023-07-02] MEDS: Ketorolac 15 MG/ML Vial IM (08:18)
[2023-07-02] MEDS: Orphenadrine 60 MG/2 ML Ampul IM (08:19)
--- NOTE | 2023-07-02 08:30 | EDS_ITS ---
HPI History of Present Illness Chief Complaint: Back Narrative Narrative: Patient is a 63-year-old female who is presenting to the ER with chief complaint of acute on chronic lower back pain. Patient was just in the ER 2 days ago and had x-ray of her lumbar spine. Patient was sent home with pain medication and muscle relaxers. Patient is alternating ice and heat. Patient is doing no stretching. Patient stated that she woke up on Friday with lower back pain, does not recall any type of injury or heavy lifting or twisting. Patient works in [employer]. Patient has no abdominal pain, nausea or vomiting. No urinary frequency or urgency or burning. Patient says that she is having normal bowel movements. She did not have a bowel movement today. No rash. Patient's son is at bedside. No other acute complaints at this time, patient is having a hard time sleeping and getting in a normal comfortable position secondary to the pain. PFSH PFSH Medical History Anxiety and depression COVID-19 Diabetes Diabetes mellitus, type 2 ETOH abuse GERD (gastroesophageal reflux disease) History of alcoholism HTN (hypertension) Hypokalemia Tobacco use Home Medications lisinopril 2.5 mg tablet 2.5 mg PO DAILY blood pressurre 07/14/19 [History Last Taken 07/25/22] flash glucose sensor (FreeStyle Moncho 2 Sensor kit) #2 ea 04/11/22 [Rx Last Taken Unknown] naproxen 500 mg tablet 500 mg PO DAILY PRN Pain 07/26/22 [History Last Taken 07/22/22] sertraline 100 mg tablet 100 mg PO DAILY depression 07/26/22 [History Last Taken 07/25/22] blood sugar diagnostic (FreeStyle Lite Strips) #100 ea 07/28/22 [Rx Last Taken Unknown] blood sugar diagnostic (FreeStyle Test strips) #100 ea 07/28/22 [Rx Last Taken Unknown] blood-glucose meter (FreeStyle Lite Meter kit) #1 ea 07/28/22 [Rx Last Taken Unknown] insulin glargine U-300 conc 300 unit/mL (3 mL) subcutaneous pen (Toujeo Max U- 300 SoloStar) 20 unit (0.0667 mL) subcut BID diabetes #6 mL 07/28/22 [Rx Last Taken 07/25/22] insulin lispro 100 unit/mL subcutaneous pen (Humalog KwikPen (U-100) Insulin) 6 unit (0.06 mL) subcut TIDAC #15 mL 07/28/22 [Rx Last Taken Unknown] lancets 28 gauge (FreeStyle Lancets) #100 ea 07/28/22 [Rx Last Taken Unknown] pen needle, diabetic 32 gauge x 5/32 (BD Ultra-Fine Josefina Pen Needle) #50 ea 07/28/22 [Rx Last Taken Unknown] diazepam 2 mg tablet 2 mg PO TID PRN PRN back pain #10 TABLETS 07/01/23 [Rx Last Taken Unknown] empagliflozin 25 mg tablet (Jardiance) mg 07/02/23 [History Last Taken Unknown] insulin glargine U-300 conc 300 unit/mL (1.5 mL) subcutaneous pen (Toujeo SoloStar U-300 Insulin) 40 unit subcut QHS 07/02/23 [History Last Taken Unknown] insulin lispro 100 unit/mL subcutaneous cartridge (Humalog U-100 Insulin) 6 unit subcut .COMPLEX 07/02/23 [History Last Taken Unknown] Allergy/AdvReac Type Severity Reaction Status Date / Time No Known Allergies Allergy Verified 07/02/23 18:19 Family History Mother Diabetes Father Diabetes Cancer Hx mesothelioma. Surgical History No history of previous surgery Social History household members: other details: Lives with her son. Her son is also an alcoholic. Smoking Status: Former smoker alcohol intake: current alcohol intake frequency: 3 or more drinks per day details: Reports at least 4 beers daily, not forthcoming with use details. substance use type: does not use ROS ROS ED ROS Narrative Unless otherwise stated in this report or unable to obtain because of the patient's clinical or mental status as evidenced by medical record, the patient's positive and negative responses for review of systems for constitutional, eyes, ENT, cardiovascular, respiratory, gastrointestinal, neurological, , musculoskeletal, and integument systems and related systems to the presenting problem are either stated in the history of present illness or were not pertinent or were negative for the symptoms and/or complaints related to the presenting medical problem. EXAM Physical Exam Narrative Exam Narrative: vital signs reviewed and patient is not hypoxic. General: The patient appears well and in no apparent distress. Patient is resting comfortably on cart. Not toxic, lethargic, or listless. Skin: Warm, dry, no pallor noted. There is no rash noted. Head: Normocephalic, atraumatic Eye: Normal conjunctiva, no drainage, EOMI. PERRL. Ears, Nose, Mouth, and Throat: oral mucosa is moist. Cardiovascular: Regular Rate and Rhythm, no murmurs, gallops, or rubs Respiratory: Patient is in no distress, no accessory muscle use, lungs are clear to auscultation, no wheezing, rales or rhonchi Back: Moderate tenderness to palpation to bilateral paralumbar soft tissue, no midline pain. No tenderness to palpation to bilateral piriformis muscle, and the rash. Otherwise non-tender, no CVA tenderness bilaterally to percussion. NO CTLS midline or paracervicl tenderness to palpation. GI: Soft, no tenderness to palpation, no masses appreciated. No rebound, guarding, or rigidity noted. Musculoskeletal: The patient has full range of motion of all extremities and joints with no difficulty. Patient has no motor, no sensory deficits. Neurological: A&O x4, normal speech, no focal neurological deficits. Psychiatric: Cooperative Const Vital Signs: 07/02/23 07:39 Temperature 96.8 F L Temperature Source Temporal Pulse Rate 123 H Respiratory Rate 16 Blood Pressure 149/79 H Blood Pressure Mean 102 Pulse Ox 100 Oxygen Delivery Method Room Air MDM MDM MDM Narrative Medical decision making narrative: Patient was given an injection of Toradol and Norflex. Education was done at bedside and not using heat, but using ice and stretching. Patient was shown exercises to do at bedside in the discharge paper. Work restrictions were given. Patient will follow-up with PCP for formal physical therapy if indicated along with possible chiropractor in addition to doing her ice and stretching at home. No indication for additional testing. Patient understands this. No questions at discharge. Discharge Plan Triage Chief Complaint: Back ED Provider: Willie Lundberg Dx/Rx/DC Orders Clinical Impression: Low back pain, Constipation, Bleeding nose Instructions: Nosebleed, ED Back Care Tips, ED Back Exercises, Lumbar, ED Constipation (Adult), ED Epistaxis (Adult) Prescriptions: No Action lisinopril 2.5 mg tablet 2.5 mg PO DAILY (DME) FreeStyle Moncho 2 Sensor Kit See Rx Instructions .Route Qty: 2 5RF Rx Instructions: As directed sertraline 100 mg tablet 100 mg PO DAILY naproxen 500 mg tablet 500 mg PO DAILY PRN (Reason: Pain) insulin lispro [Humalog KwikPen Insulin] 100 unit/mL Insulin Pen 6 unit subcut TIDAC Qty: 15 0RF (DME) lancets [FreeStyle Lancets] 28 gauge misc See Rx Instructions .Route Qty: 100 0RF Rx Instructions: As directed (DME) FreeStyle Test Strip See Rx Instructions .Route Qty: 100 0RF Rx Instructions: As directed (DME) pen needle, diabetic [BD Ultra-Fine Josefina Pen Needle] 32 gauge x 5/32 needle See Rx Instructions .ROUTE .MEDSUPPLY Qty: 50 5RF Rx Instructions: daily Toujeo Max U-300 SoloStar 300 unit/mL (3 mL) insulin pen 20 unit subcut BID Qty: 6 0RF (DME) blood-glucose meter [FreeStyle Lite Meter] Kit See Rx Instructions .Route Qty: 1 0RF Rx Instructions: As directed (DME) FreeStyle Lite Strips Strip See Rx Instructions .Route Qty: 100 0RF Rx Instructions: As directed Toujeo SoloStar U-300 Insulin 300 unit/mL (1.5 mL) insulin pen 40 unit SUBCUT QHS Patient Comments: 40 UNIT UNDER SKIN AT BEDTIME Humalog U-100 Insulin 100 unit/mL cartridge 6 unit subcut .COMPLEX Patient Comments: inject 6 units subcutaneously with each meal Rx Instructions: 6 units subcutaneously with meals; with meals Jardiance 25 mg tablet Patient Comments: TAKE 1 TABLET BY MOUTH EVERY DAY diazepam [diazepam] 2 mg tablet 2 mg PO TID PRN PRN (Reason: back pain) Qty: 10 0RF Stand Alone Forms: ED Work / School Excuse, Work / School Excuse Primary Care Provider: Milind Lamb Referrals: Milind Lamb MD [Primary Care Provider] - Activity Restrictions/Additional Instructions: Ice 20 minutes on, 20 minutes off. Do not do heat. Perform lumbar stretching exercises as shown at bedside and on discharge paperwork. If nosebleed starts again, hold 20 minutes on continuous pressure, if bleeding does not stop, return to the ER for reevaluation. Use asec-ojt-arxsqms MiraLAX twice a day for the next 3 to 4 days for good bowel relief. Use thom-rqr-vyrukzo magnesium citrate or mineral oil 1-2 bottles a day for the next 2 days to help with the bowels as well. Use either [id number]-[id number] Motrin, Advil, ibuprofen or Naprosyn daily to help with pain and inflammation. Follow-up and establish PCP for formal physical therapy if needed Disposition Disposition: Home, Self Care Discharge Date/Time: 07/02/23 09:03
[2023-07-02 09:02] VITALS: BP 149/87; PULSE 110; RESP 16; O2SAT 98
--- OUTSIDE RECORDS SUMMARY | 2023-07-02 22:15 | XMS RPT_ITS | CCD ---
Author Name Unknown Address [address] [place] [address] Organization [facility] Care Team Providers Care Building Inspection Engineer Name Role Phone SUMMER ALVES Attending Unavailable PHYSICIAN, NONE Primary Care Unavailable Results Test Name Value Interpretation Reference Range Facil ity Encounters Encounter Date Encounter Type Care Provider Facility Start: 07-22-2018 End: 07-23-2018 Patient encounter procedure SUMMER ALVES Facility:B Payers Date Payer Category Payer Unknown [id number] 1960 Unknown [id number] Summary Purpose Family History No Family History Records Found Advance Directives No Advanced Directives Records Found Additional Source Comments INFORMATION SOURCE (unrecogn ized section and content) FOR RECORDS PERTAINING TO PATIENTS WHO ARE OR HAVE BEEN ENROLLED IN A CHEMICAL DEPENDENCY/SUBSTANCEABUSE PROGRAM, SOME INFORMATION MAY BE OMITTED. This clinical summary was aggregated from multiple sources. Caution should be exercised in using it in the provision of clinical care. This summary normalizes information from multiple sources, and as a consequence, information in this document may materially change the coding, format and clinical context of patient data. In addition, data may be omitted in some cases. CLINICAL DECISIONS SHOULD BE BASED ON THE PRIMARY CLINICAL RECORDS. [facility]. provides no warranty or guarantee of the accuracy or completeness of information in this document.
== END 2023-07-02 09:03 | disposition home or self-care (01) ==
LOC: ED 08:38
PROVIDERS: Emergency Provider Emergency Medicine; PCP Family Medicine; Visit Provider Emergency Medicine
DX: M54.50 Low back pain, unspecified (principal); F10.20 Alcohol dependence, uncomplicated; E11.9 Type 2 diabetes mellitus without complications; Z79.4 Long term (current) use of insulin; G89.29 Other chronic pain; K59.00 Constipation, unspecified; R04.0 Epistaxis; I10 Essential (primary) hypertension; Y90.9 Presence of alcohol in blood, level not specified; Z79.84 Long term (current) use of oral hypoglycemic drugs; Z79.899 Other long term (current) drug therapy; Z86.16 Personal history of COVID-19; Z87.891 Personal history of nicotine dependence
CPT/HCPCS: 96372; 99282

== ENCOUNTER 2023-07-02 18:18 | Inpatient (IN) | payer SELFPAY ==
[2023-07-02] VITALS (7 sets, daily range): BP systolic 153–176; BP diastolic 71–96; PULSE 113–124; RESP 16–26; TEMP 36.6–36.8; O2SAT 100; BMI 21.4; BMI 21.3
--- NOTE | 2023-07-02 19:13 | EDS_ITS ---
HPI History of Present Illness Chief Complaint: Back Detail of Chief Complaint: Low back pain, poor p.o. intake, not feeling well Informant: patient Onset/Context/Timing Onset: Days (Patient was seen on June 30 for back pain. She was seen earlier today for epistaxis) Context: Sudden Onset Timing: Continuous Quality: Piercing Location: Posterior left pelvic region Current Severity: Severe Maximum Severity: Severe Worsened by: Uncertain Relieved by: Nothing Associated Symptoms Associated Symptoms: None Narrative Narrative: Patient was seen on June 30 for back pain. She was treated with opiate analgesia and Valium. She had a blood sugar of greater than 400 that time. No other blood work was done. She states she is taking the medicine she was prescribed which was diazepam 2 mg 3 times daily and hydrocodone with acetaminophen every 6 hours for pain for 3 days. She states this is not helping. She denies radicular pain. Denies bowel bladder dysfunction. She proclaim she is in serious pain however she is groggy and her pupils are pinpoint. Patient was seen earlier today for epistaxis. No blood work was obtained at that time. She denies headache, visual, ocular auditory symptoms. She denies sore throat. She does endorse slight nasal congestion. Denies rhinorrhea postnasal drainage sore throat. She denies cough or sputum production. Denies dyspnea [place] exertion. She denies abdominal pain, nausea, vomiting or diarrhea. Denies constipation. She denies dysuria, frequency, urgency or hematuria. She denies weakness in her legs. She states it hurts. She reports pain anterior right and left thigh. She does not have symptoms of claudication. She does endorse history of type 1 diabetes. Prior similar symptoms: Yes Recent Illness/Hospitalization: Yes PFSH PFSH Medical History Anxiety and depression COVID-19 Diabetes Diabetes mellitus, type 2 ETOH abuse GERD (gastroesophageal reflux disease) History of alcoholism HTN (hypertension) Hypokalemia Tobacco use Home Medications lisinopril 2.5 mg tablet 2.5 mg PO DAILY blood pressurre 07/14/19 [History Last Taken 07/25/22] flash glucose sensor (FreeStyle Moncho 2 Sensor kit) #2 ea 04/11/22 [Rx Last Taken Unknown] naproxen 500 mg tablet 500 mg PO DAILY PRN Pain 07/26/22 [History Last Taken 07/22/22] sertraline 100 mg tablet 100 mg PO DAILY depression 07/26/22 [History Last Taken 07/25/22] blood sugar diagnostic (FreeStyle Lite Strips) #100 ea 07/28/22 [Rx Last Taken Unknown] blood sugar diagnostic (FreeStyle Test strips) #100 ea 07/28/22 [Rx Last Taken Unknown] blood-glucose meter (FreeStyle Lite Meter kit) #1 ea 07/28/22 [Rx Last Taken Unknown] insulin glargine U-300 conc 300 unit/mL (3 mL) subcutaneous pen (Toujeo Max U- 300 SoloStar) 20 unit (0.0667 mL) subcut BID diabetes #6 mL 07/28/22 [Rx Last Taken 07/25/22] insulin lispro 100 unit/mL subcutaneous pen (Humalog KwikPen (U-100) Insulin) 6 unit (0.06 mL) subcut TIDAC #15 mL 07/28/22 [Rx Last Taken Unknown] lancets 28 gauge (FreeStyle Lancets) #100 ea 07/28/22 [Rx Last Taken Unknown] pen needle, diabetic 32 gauge x 5/32 (BD Ultra-Fine Josefina Pen Needle) #50 ea 07/28/22 [Rx Last Taken Unknown] diazepam 2 mg tablet 2 mg PO TID PRN PRN back pain #10 TABLETS 07/01/23 [Rx Last Taken Unknown] hydrocodone-acetaminophen 5-325mg 5mg-325mg 1 tab PO Q6H PRN PRN Pain 3 days #12 TABLETS 07/01/23 [Rx Last Taken Unknown] dicyclomine 10 mg capsule 20 mg (2 x 10 mg) PO TIDAC #20 CAPSULES 07/02/23 [Rx Last Taken Unknown] empagliflozin 25 mg tablet (Jardiance) mg 07/02/23 [History Last Taken Unknown] insulin glargine U-300 conc 300 unit/mL (1.5 mL) subcutaneous pen (Toujeo SoloStar U-300 Insulin) 40 unit subcut QHS 07/02/23 [History Last Taken Unknown] insulin lispro 100 unit/mL subcutaneous cartridge (Humalog U-100 Insulin) 6 unit subcut .COMPLEX 07/02/23 [History Last Taken Unknown] ondansetron 4 mg disintegrating tablet 4 mg PO Q8H PRN PRN Nausea #10 tabs 07/02/23 [Rx Last Taken Unknown] Allergy/AdvReac Type Severity Reaction Status Date / Time No Known Allergies Allergy Verified 07/02/23 18:19 Family History Mother Diabetes Father Diabetes Cancer Hx mesothelioma. Surgical History No history of previous surgery Social History household members: other details: Lives with her son. Her son is also an alcoholic. Smoking Status: Former smoker alcohol intake: current alcohol intake frequency: 3 or more drinks per day details: Reports at least 4 beers daily, not forthcoming with use details. substance use type: does not use ROS ROS ED Review of Systems ROS Unobtainable: due to mental status Constitutional Constitutional ED: Denies chills, fever(s) or weight loss Eyes Eyes: Denies blurry vision, change in vision or diplopia ENT ENT ED: Denies ear pain, rhinorrhea or sore throat Cardiovascular Cardiovascular: Denies chest pain Respiratory/Chest Respiratory/Chest: Denies cough, dyspnea or dyspnea on exertion Gastrointestinal Gastrointestinal: Denies abdominal pain, diarrhea or vomiting Genitourinary Genitourinary ED: Denies dysuria, hematuria or urinary frequency Musculoskeletal Musculoskeletal: Reports back pain; Denies arthralgias or myalgias Integumentary Denies rash Neurologic Neurologic: Reports weakness; Denies headache(s) Hematologic/Lymphatic Hematologic/Lymphatic: Reports systems reviewed and no addt'l complaints, except as documented EXAM Physical Exam Const Vital Signs: 07/02/23 18:19 Temperature 97.9 F Temperature Source Temporal Pulse Rate 115 H Respiratory Rate 18 Blood Pressure 162/88 H Blood Pressure Mean 112 Pulse Ox 100 Oxygen Delivery Method Room Air Positive well nourished and well developed Constitutional Narrative: Patient is somnolent. She is slow to response. She does not appear well. General Appearance ED: well developed and NAD; Negative for pallor HEENT Reports dry mucous membranes HEENT Narrative: Head is atraumatic and normocephalic. Ears are normal. TMs are normal. Nares patent with no discharge. Posterior pharynx out erythema. Uvula midline. No deviation tongue protrusion. Mouth ED: Yes dry mucous membranes Mouth: dry mucous membranes Eyes PERRL and EOMs intact bilaterally Eyes Narrative: Pupils are small but react. There is no nystagmus. General Eye ED: Negative for pale conjunctiva or scleral icterus Neck no lymphadenopathy, supple and no JVD Chest Wall inspection of chest normal and palpation of chest normal Resp normal respiratory effort and clear to auscultation bilaterally Cardio regular rhythm, S1 normal heart sound, S2 normal heart sound and no murmurs Rate: bradycardia GI normal to inspection, nondistended, normoactive bowel sounds, non-tender, non- distended and no masses; Negative for hepatosplenomegaly Auscultation: normoactive bowel sounds Palpation: soft Back/Spine no CVA tenderness Lumbar Spine / Lower Back: lumbar spinal tenderness Extremity normal to inspection Extremity Narrative: DP and PT pulse are palpable. Patient does have hair on her toes. General Extremety ED: Negative for edema or tenderness General Extremity: Negative for edema Neuro oriented x3, CN's II-XII intact bilaterally and no sensory deficits noted Neuro Narrative: EHLs intact. Patella and ankle reflex are 2+. 5/5 strength plantar and dorsiflexion. Sensorium / Orientation: Negative for alert Motor Exam: strength 5/5 throughout Psych Mood & Affect: depressed Skin no rashes or lesions noted, no wounds and skin turgor normal General Skin Exam: Negative for elasticity normal, jaundice or pallor MDM MDM MDM Narrative Medical decision making narrative: Patient is requesting pain medicine. Patient is history physical exam and findings are not consistent with what she is telling me. I am concerned that she may be overmedicated in light of the fact that she is drowsy with pinpoint pupils. Clinically she may be dehydrated. Will order IV fluids. Blood work was ordered which included a BMP to assess glucose and anion gap since she is diabetic and when she was seen on her blood sugar was greater than 400. Also to assess her electrolytes. CBC was obtained to assess white count differential. Because she is tachycardic EKG was obtained to determine if there is any ischemic changes. History & Record Review Additional record(s) reviewed:: Prior outpatient record, Prior ED visit and Prior labs Lab Data Attestation: I reviewed the patient's lab results. Lab results narrative: CBC is unremarkable. Basic metabolic panel is a glucose of 352 with a CO2 of 10 and anion gap of 22. This would indicate that the patient has DKA. She does have ketones in her urine. Will initiate DKA order set. Labs: Laboratory Results - last 24 hr 07/02/23 07/02/23 07/02/23 19:22 19:31 19:38 WBC 7.1 RBC 4.71 Hgb 14.0 Hct 43.4 MCV 92.1 MCH 29.7 MCHC 32.3 RDW Std Deviation 43.7 RDW Coeff of Nellie 12.9 Plt Count 261 MPV 11.8 Immature Gran % (Auto) 0.600 Neut % (Auto) 74.0 H Lymph % (Auto) 20.1 [place] % (Auto) 4.6 Eos % (Auto) 0.1 Baso % (Auto) 0.6 Absolute Neuts (auto) 5.3 Absolute Lymphs (auto) 1.43 Nucleated RBC % 0 ESR 24 Sodium 135 L Potassium 3.8 Chloride 103 Carbon Dioxide 10.0 L Anion Gap 22 H BUN 16 Creatinine 1.11 H Est GFR (MDRD) Af Amer 64 Est GFR (MDRD) Non-Af 53 L BUN/Creatinine Ratio 14.4 Glucose 352 H Calcium 10.2 H Urine Color Yellow Urine Clarity Clear Urine pH 5.0 Ur Specific [place] 1.020 Urine Protein 30 H Urine Glucose (UA) 1000 H Urine Ketones 150 A* Urine Occult Blood 50 H Urine Nitrite Negative Urine Bilirubin Negative Urine Urobilinogen Normal Ur Leukocyte Esterase 100 H Urine RBC 0 SEEN Urine WBC 25-50 SEEN Ur Squamous Epith Cells 0-5 SEEN Urine Bacteria 0 SEEN Urine Mucus 0 SEEN POC Glucose 308 H EKG Initial EKG: Attestation: I personally reviewed and interpreted this EKG as follows: Interpretation: Sinus Tachycardia (Rate is 113. MO interval is 138 ms. QRS durations 88 ms. QT duration 344 ms. [place] is normal. There is nonseptic changes which may represent artifact. The respiratory therapist said it was difficult to obtain an EKG because of patient's lack of cooperation.) Comments: There are no peaked T waves. Treatment and Re-Evaluation :: Patient was informed of her laboratory results. Patient was started on insulin drip. Will contact hospitalist for admission. Critical Care Time Critical Care Time: Yes Critical care time (excluding procedures): 30-74 minutes (33), Including time spent: (History, physical, documentation, review of prior records, independent rotation of laboratory results and initiation of insulin to treat DKA), Discussing w/Patient &/or Family/Wood Crew Supervisor, Discussing w/Consultants and Arranging Admission or Transfer Discharge Plan Dx/Rx/DC Orders Clinical Impression: Pyuria, Back pain, Diabetic ketoacidosis associated with type 1 diabetes mellitus, Elevated serum creatinine, Sinus tachycardia by electrocardiogram Disposition Disposition: Acute Care [facility]
[2023-07-02 19:38] LABS: Absolute Lymphocyte Count 1.43 X10^3/uL (0.83-4.51); Absolute Neutrophil Count 5.3 X10^3/uL (2.0-7.7); Basophil# 0.04 X10^3/uL; Basophil% 0.6 % (0-1); Eosinophil# 0.01 X10^3/uL; Eosinophils% 0.1 % (0-5); Hematocrit 43.4 % (37-47); Lymphocyte # 1.43 X10^3/ul (0.83-4.51); Lymphocyte % 20.1 % (19-41); Mean Corp Hgb Conc 32.3 g/dL (32-36); Mean Corpuscular Hgb 29.7 pg (27.0-32.0); Mean Corpuscular Volume 92.1 fL (81-99); Mean Platelet Vol. 11.8 fl (6.2-12.0); Monocyte# 0.33 X10^3/uL; Monocyte% 4.6 % (0-10); NRBC Flagged by Analyzer 0 % (0-5); Neutrophil # 5.25 X10^3/uL (2.7-7.7); Platelet Count 261 K/mm3 (150-450); RBC Distribution Width CV 12.9 % (11.6-14.6); RBC Distribution Width SD 43.7 fl (35.1-43.9); Red Blood Count 4.71 M/mm3 (4.2-5.4); White Blood Count 7.1 K/mm3 (4.4-11.0)
[2023-07-02 19:44] LABS: Bacteria 0 SEEN /hpf (None Seen); Mucous, Urine 0 SEEN /hpf (<or=2+); Red Blood Cells-Urine 0 SEEN /hpf (0-5)
[2023-07-02 19:45] LABS: Erythrocyte Sedimentation Rate 24 mm/hr (0-30)
[2023-07-02 19:46] LABS: Color, Urine Yellow (Yellow); Glucose, Dipstick 1000 mg/dl (Normal); Leukocyte Esterase-Dipstick 100 /ul (Negative); Nitrite-Dipstick Negative (Negative); Occult Blood-Urine 50 /ul (Negative); Protein-Dipstick 30 mg/dl (Negative); Urine Bilirubin Dipstick Negative (Negative); Urine Clarity Clear (Clear); Urine Urobilinogen Normal (Normal)
[2023-07-02 19:48] LABS: Ketone-Dipstick 150 mg/dl (Negative)
[2023-07-02 19:50] LABS: Bedside Glucose 308 mg/dL (74-106)
[2023-07-02 19:51] LABS: White Blood Cells 25-50 SEEN /hpf (0-5)
[2023-07-02 19:52] LABS: Squamous Epithelial Cells - UA 0-5 SEEN /hpf (5-10)
[2023-07-02 19:54] LABS: Anion Gap 22 (5-15); BUN 16 mg/dL (7-18); BUN/Creat Ratio 14.4 RATIO (10-20); Calcium,Total 10.2 mg/dL (8.5-10.1); Chloride 103 mmol/L (98-107); Creatinine, Serum 1.11 mg/dL (0.55-1.02); EST Glomerular Filtration Rate 53 mL/min (>60); Est Glom Filt Rate - Afr Amer 64 mL/min (>60); Glucose 352 mg/dL (74-106); Potassium 3.8 mmol/L (3.5-5.1); Sodium Level 135 mmol/L (136-145)
[2023-07-02] MEDS: 0.9% Normal Saline (1000mL) 1,000 ML 999 ML IV ×2 (20:30→21:50)
--- NOTE | 2023-07-02 20:39 | PCM.HP.STD ---
HPI - General General Date of Admission: 07/02/23 Date of Service: 07/02/23 Chief Complaint: General malaise, low back pain HPI Narrative ROBERT BRUCE, is a 63 F who presented to [facility] ED on 07/02/2023 with general malaise, poor p.o. intake and worsening back pain. Patient seen at bedside in the ED. Patient appeared quite sedated and notably had pinpoint pupils on my exam. She was a very poor historian, was primarily moaning and saying she had low back pain that needed to be treated. Patient notably was in our ED 2 days ago for low back pain, imaging was negative, was discharged home with 12 tablets of Percocet. High suspicion that patient may be overmedicating at home. When asked if patient was taking her insulin at home, patient states she has run out of her medications and has not been able to get refills due to financial difficulties. She does report feeling dry and wants to drink water if possible. Denies any fevers or chills. No other acute concerns. PFSH Medical History Anxiety and depression COVID-19 Diabetes Diabetes mellitus, type 2 ETOH abuse GERD (gastroesophageal reflux disease) History of alcoholism HTN (hypertension) Hypokalemia Tobacco use Home Medications lisinopril 2.5 mg tablet 2.5 mg PO DAILY blood pressurre 07/14/19 [History Last Taken 07/25/22] flash glucose sensor (FreeStyle Moncho 2 Sensor kit) #2 ea 04/11/22 [Rx Last Taken Unknown] naproxen 500 mg tablet 500 mg PO DAILY PRN Pain 07/26/22 [History Last Taken 07/22/22] sertraline 100 mg tablet 100 mg PO DAILY depression 07/26/22 [History Last Taken 07/25/22] blood sugar diagnostic (FreeStyle Lite Strips) #100 ea 07/28/22 [Rx Last Taken Unknown] blood sugar diagnostic (FreeStyle Test strips) #100 ea 07/28/22 [Rx Last Taken Unknown] blood-glucose meter (FreeStyle Lite Meter kit) #1 ea 07/28/22 [Rx Last Taken Unknown] insulin glargine U-300 conc 300 unit/mL (3 mL) subcutaneous pen (Toujeo Max U-300 SoloStar) 20 unit (0.0667 mL) subcut BID diabetes #6 mL 07/28/22 [Rx Last Taken 07/25/22] insulin lispro 100 unit/mL subcutaneous pen (Humalog KwikPen (U-100) Insulin) 6 unit (0.06 mL) subcut TIDAC #15 mL 07/28/22 [Rx Last Taken Unknown] lancets 28 gauge (FreeStyle Lancets) #100 ea 07/28/22 [Rx Last Taken Unknown] pen needle, diabetic 32 gauge x 5/32 (BD Ultra-Fine Josefina Pen Needle) #50 ea 07/28/22 [Rx Last Taken Unknown] diazepam 2 mg tablet 2 mg PO TID PRN PRN back pain #10 TABLETS 07/01/23 [Rx Last Taken Unknown] empagliflozin 25 mg tablet (Jardiance) mg 07/02/23 [History Last Taken Unknown] insulin glargine U-300 conc 300 unit/mL (1.5 mL) subcutaneous pen (Toujeo SoloStar U-300 Insulin) 40 unit subcut QHS 07/02/23 [History Last Taken Unknown] insulin lispro 100 unit/mL subcutaneous cartridge (Humalog U-100 Insulin) 6 unit subcut .COMPLEX 07/02/23 [History Last Taken Unknown] Allergy/AdvReac Type Severity Reaction Status Date / Time No Known Allergies Allergy Verified 07/02/23 18:19 Family History Mother Diabetes Father Diabetes Cancer Hx mesothelioma. Surgical History No history of previous surgery Social History household members: other details: Lives with her son. Her son is also an alcoholic. Smoking Status: Former smoker alcohol intake: current alcohol intake frequency: 3 or more drinks per day details: Reports at least 4 beers daily, not forthcoming with use details. substance use type: does not use ROS Review of Systems ROS Unobtainable: due to mental status Musculoskeletal Musculoskeletal: Reports back pain Vital Signs Vital Signs Vital Signs: 07/02/23 18:19 Temperature 97.9 F Temperature Source Temporal Pulse Rate 115 H Respiratory Rate 18 Blood Pressure 162/88 H Blood Pressure Mean 112 Pulse Ox 100 Oxygen Delivery Method Room Air Physical Exam Const Constitutional Narrative: Middle aged female, appears older than stated age, somnolent on exam with pinpoint pupils, not answering most questions appropriately, appears somewhat uncomfortable laying in bed due to reported low back pain. General Appearance: cooperative HEENT normocephalic, head/scalp atraumatic and hearing grossly normal bilaterally HEENT Narrative: Dry mucous membranes. Eyes EOMs intact bilaterally and conjunctivae normal Eyes Narrative: Pinpoint pupils noted. Neck full ROM, no lymphadenopathy and supple Lymph Lymphatic: no lymphadenopathy noted Chest inspection of chest normal Resp normal respiratory effort, normal air movement, no use of accessory muscles and clear to auscultation bilaterally Cardio no murmurs and peripheral pulses 2+ throughout Cardio Narrative: Sinus tachycardia. GI normal to inspection, nondistended, normoactive bowel sounds, soft to palpation, non-tender and non-distended Back/Spine normal ROM Extremity normal to inspection, full ROM and no pedal edema Skin no rashes or lesions noted Neuro moves all extremities and no focal motor deficits Results Lab / Micro Data 07/02/23 19:31 07/02/23 22:00 Labs: Laboratory Results - last 24 hr 07/02/23 19:22: POC Glucose 308 H 07/02/23 19:31: WBC 7.1, RBC 4.71, Hgb 14.0, Hct 43.4, MCV 92.1, MCH 29.7, MCHC 32.3, RDW Std Deviation 43.7, RDW Coeff of Nellie 12.9, Plt Count 261, MPV 11.8, Immature Gran % (Auto) 0.600, Neut % (Auto) 74.0 H, Lymph % (Auto) 20.1, [place] % (Auto) 4.6, Eos % (Auto) 0.1, Baso % (Auto) 0.6, Absolute Neuts (auto) 5.3, Absolute Lymphs (auto) 1.43, Nucleated RBC % 0, ESR 24, Sodium 135 L, Potassium 3.8, Chloride 103, Carbon Dioxide 10.0 L, Anion Gap 22 H, BUN 16, Creatinine 1.11 H, Est GFR (MDRD) Af Amer 64, Est GFR (MDRD) Non-Af 53 L, BUN/Creatinine Ratio 14.4, Glucose 352 H, Calcium 10.2 H 07/02/23 19:38: Urine Color Yellow, Urine Clarity Clear, Urine pH 5.0, Ur Specific [place] 1.020, Urine Protein 30 H, Urine Glucose (UA) 1000 H, Urine Ketones 150 A*, Urine Occult Blood 50 H, Urine Nitrite Negative, Urine Bilirubin Negative, Urine Urobilinogen Normal, Ur Leukocyte Esterase 100 H, Urine RBC 0 SEEN, Urine WBC 25-50 SEEN, Ur Squamous Epith Cells 0-5 SEEN, Urine Bacteria 0 SEEN, Urine Mucus 0 SEEN Assessment & Plan Assessment/Plan (1) Diabetic keto-acidosis: (2) Diabetes mellitus, type 2: PLAN: Plan Patient is a 63-year-old female who presented to [facility] ED on 07/02/2023 with general malaise, poor p.o. intake and worsening back pain. 1. DKA, poorly controlled type 2 diabetes mellitus BG 352, bicarb 10, anion gap 22, UA with 150 ketones. Patient reports running out of home insulin, unable to finance more insulin and was not taking as prescribed. Last A1c greater than 14.0% in 07/2022. Previously followed with Dr. Mcclendon with endocrinology, last office visit in 04/2022. Diagnosed with type 2 diabetes in 2018, but has history of alcohol abuse so may have degree of type 1 diabetes due to damage of pancreas. Had DKA episode in 04/2022 due to difficulty with the pharmacy, similar to this presentation. Was taking Toujeo 15 units daily, metformin 1 g twice daily at that time. Current regimen unclear, awaiting medication reconciliation from pharmacy. ? Admit under inpatient status to the ICU. DKA order set orders placed. Continue insulin drip with supplemental IV fluids per order set. N.p.o. while on drip. BMP every 4 hours; K 3.8 on admit, monitor closely and may need to supplement with K in IV fluids soon. Case management consulted. 2. Low back pain, oversedation from opiate use Seen in our ED on 06/30 for this concern. Pain started on 06/28 after awakening from sleep, no trauma, no difficulty with bowel or bladder control, no radiculopathy. L-spine x-ray showed no spinal fracture or spondylolisthesis, mild spondylosis at L4-5 and L5-S1, large stool burden as noted below. Discharged from ED with 3-day course (12 pills) of hydrocodone?acetaminophen 5?325. On this presentation, patient appeared very sedated with pinpoint pupils, unable to answer questions appropriately. Unclear how many pills of her opiate she had taken. ? Will hold on any further opiate medications for now. Start scheduled Tylenol 1000 mg every 8 hours, lidocaine patch for now. PT/OT consulted. 3. Constipation ? L-spine x-ray on 06/30 showed large stool burden. Patient was reporting regular bowel movements at that time. Abdomen fairly soft and nontender on exam on 07/02 but suspect patient continues to have large stool burden in setting of dehydration from DKA. Will start scheduled senna and MiraLAX with Dulcolax suppository as needed. 4. Difficult social situation ? Patient reports nothing able to afford her medications. Appears that this was an issue in the past as well. Case management consulted. 5. History of alcohol abuse, sinus tachycardia ? Consistently with sinus tachycardia to the 110s to 120s since admission, suspect this is due to find patient from DKA but cannot rule out alcohol withdrawal. Unclear if patient is currently abusing alcohol. On previous admission for DKA in 02/2022, she was initially started on a phenobarbital taper for concern for alcohol withdrawal, but was taken off the next day as phenobarb caused significant sedation and patient's apparent alcohol intake was quite variable at that time. Alcohol level pending. [facility] protocol for now. 6. History of nicotine abuse ? Unclear if patient is currently smoking. Will hold on NRT at this time. Chronic medical conditions: ? Depression/anxiety: Continue home sertraline. Has diazepam 3 times daily as needed on med list, but on checking [facility] report she has never had this filled, will not prescribe here. ? Hypertension: Holding home lisinopril 2.5 mg daily. DVT prophylaxis: Lovenox CODE STATUS: Full code, unverified Expected disposition: TBD Total clinical time spent by myself addressing the patient's medical issues, reviewing all the data, and collaborating with patient's care team: 55 minutes. Charges/Coding Visit Charges Inpatient E&M: 71921 Init Hosp L2
[2023-07-02] MEDS: Insulin Lispro 100 UNIT in 0.9% Normal Saline (100mL Bag) 99 ML 5.5 UNIT CONT INF (21:46)
[2023-07-02] MEDS: Acetaminophen 325 MG Tablet 650 MG PO (22:40)
[2023-07-02 22:45] LABS: Anion Gap 20 (5-15); BUN 16 mg/dL (7-18); BUN/Creat Ratio 16.5 RATIO (10-20); Calcium,Total 8.8 mg/dL (8.5-10.1); Chloride 109 mmol/L (98-107); Creatinine, Serum 0.97 mg/dL (0.55-1.02); EST Glomerular Filtration Rate 62 mL/min (>60); Est Glom Filt Rate - Afr Amer 75 mL/min (>60); Estimated Creatinine Clearance 50.38 ml/min; Glucose 328 mg/dL (74-106); Sodium Level 138 mmol/L (136-145)
[2023-07-02] MEDS: 0.9% Normal Saline (1000mL) 1,000 ML 500 ML IV (22:48)
[2023-07-02] MEDS: KCL 20MEQ in D5.45NS 20 MEQ/1,000 ML IV.SOLN. 150 MEQ IV (23:18)
[2023-07-03] VITALS (19 sets, daily range): BP systolic 110–171; BP diastolic 56–89; PULSE 87–111; RESP 11–22; TEMP 36.3–36.8; O2SAT 99–100; BMI 21.9
[2023-07-03 00:08] LABS: Alcohol, Blood (Medical)-Serum < 3.0 mg/dL
[2023-07-03 00:19] LABS: Hemoglobin A1c 13.9 % (3.8-5.6)
[2023-07-03] MEDS: Lidocaine 5% Patch 1 PATCH TOPICAL ×2 (00:31→08:31)
[2023-07-03 01:03] LABS: Bedside Glucose 159 mg/dL (74-106)
[2023-07-03 01:03] LABS: Bedside Glucose 222 mg/dL (74-106)
[2023-07-03 01:03] LABS: Bedside Glucose 289 mg/dL (74-106)
[2023-07-03 01:03] LABS: Bedside Glucose 212 mg/dL (74-106)
--- OUTSIDE RECORDS SUMMARY | 2023-07-03 01:17 | XMS RPT_ITS | CCD ---
Author Name Unknown Address [address] [place] [address] Organization [facility] Care Team Providers Care Alarm Adjuster Name Role Phone SUMMER ALVES Attending Unavailable PHYSICIAN, NONE Primary Care Unavailable Results Test Name Value Interpretation Reference Range Facil ity Encounters Encounter Date Encounter Type Care Provider Facility Start: 07-22-2018 End: 07-23-2018 Patient encounter procedure SUMMER ALVES Facility:B Payers Date Payer Category Payer Unknown [id number] 1960 Unknown [id number] Summary Purpose Family History No Family History [...] BE BASED ON THE PRIMARY CLINICAL RECORDS. [employer] [facility]. provides no warranty or guarantee of the accuracy or completeness of information in this document.
[2023-07-03 02:01] LABS: Hematocrit 32.1 % (37-47); Hemoglobin 10.6 g/dL (12.0-15.0); Mean Corpuscular Hgb 29.6 pg (27.0-32.0); Mean Corpuscular Volume 89.7 fL (81-99); Mean Platelet Vol. 11.5 fl (6.2-12.0); Platelet Count 189 K/mm3 (150-450); RBC Distribution Width CV 12.8 % (11.6-14.6); Red Blood Count 3.58 M/mm3 (4.2-5.4); White Blood Count 7.9 K/mm3 (4.4-11.0)
[2023-07-03 02:18] LABS: Anion Gap 14 (5-15); BUN 13 mg/dL (7-18); BUN/Creat Ratio 16.2 RATIO (10-20); Calcium,Total 7.6 mg/dL (8.5-10.1); Chloride 118 mmol/L (98-107); EST Glomerular Filtration Rate 77 mL/min (>60); Est Glom Filt Rate - Afr Amer 93 mL/min (>60); Estimated Creatinine Clearance 61.09 ml/min; Glucose 153 mg/dL (74-106); Potassium 3.3 mmol/L (3.5-5.1); Sodium Level 143 mmol/L (136-145)
[2023-07-03 04:07] LABS: Bedside Glucose 141 mg/dL (74-106)
[2023-07-03 04:07] LABS: Bedside Glucose 142 mg/dL (74-106)
[2023-07-03 04:08] LABS: Bedside Glucose 137 mg/dL (74-106)
[2023-07-03] MEDS: Acetaminophen 500 MG Tablet 1000 MG PO ×3 (04:50→21:53)
[2023-07-03] MEDS: 0.9% Saline Lock 10 ML Syringe IV ×2 (04:51→23:31)
[2023-07-03 05:10] LABS: Bedside Glucose 149 mg/dL (74-106)
[2023-07-03] MEDS: KCL 20MEQ in D5.45NS 20 MEQ/1,000 ML IV.SOLN. 150 MEQ IV (05:53)
[2023-07-03 06:11] LABS: Bedside Glucose 148 mg/dL (74-106)
[2023-07-03 06:11] LABS: Anion Gap 7 (5-15); BUN 12 mg/dL (7-18); BUN/Creat Ratio 14.6 RATIO (10-20); Calcium,Total 8.1 mg/dL (8.5-10.1); Chloride 118 mmol/L (98-107); Creatinine, Serum 0.82 mg/dL (0.55-1.02); EST Glomerular Filtration Rate 75 mL/min (>60); Est Glom Filt Rate - Afr Amer 91 mL/min (>60); Glucose 179 mg/dL (74-106); Potassium 3.2 mmol/L (3.5-5.1); Sodium Level 141 mmol/L (136-145)
[2023-07-03 07:06] LABS: Bedside Glucose 156 mg/dL (74-106)
[2023-07-03] MEDS: Potassium Chloride Oral Tablet 20 MEQ 40 MEQ PO (08:28)
[2023-07-03] MEDS: Enoxaparin 40 MG/0.4 ML Syringe SC (08:29)
[2023-07-03] MEDS: Sertraline 100 MG Tablet PO (08:30)
[2023-07-03] MEDS: Senna Tablet 1 TABLET PO ×2 (08:31→21:50)
[2023-07-03] MEDS: Polyethylene Glycol 3350 17 GM PACKET PO (08:31)
[2023-07-03 08:34] LABS: Bedside Glucose 122 mg/dL (74-106)
[2023-07-03 09:18] LABS: Bedside Glucose 83 mg/dL (74-106)
[2023-07-03 11:57] LABS: Bedside Glucose 185 mg/dL (74-106)
[2023-07-03] MEDS: Empagliflozin 25 MG Tablet PO (12:59)
--- NOTE | 2023-07-03 15:04 | PN_ITS ---
Subjective Subjective Patient seen and examined. She was alert but weak. She had no active complaints. She was admitted for DKA. Anion gap has closed x 2. Review of systems is otherwise negative. Objective Data Objective Data Vital Signs: Vital Signs Temp Pulse Resp BP Pulse Ox O2 Del Method 97.4 F L 94 18 169/78 H 100 Room Air 07/03/23 12:00 07/03/23 14:00 07/03/23 14:00 07/03/23 14:00 07/03/23 14:00 07/03/23 14:00 Oxygen Delivery Method Room Air Weight: 123 lb 10.869 oz Body Mass Index (BMI) 21.9 Intake & Output: Intake and Output for Last 24 Hours 07/01/23 07/02/23 07/03/23 23:59 23:59 23:59 Intake Total 3626.31 / 3626.31 Output Total 1675 / 1675 Balance 1951.31 / 1.31 Lab / Micro Data 07/03/23 01:50 07/03/23 05:48 Labs: Laboratory Results - last 24 hr 07/02/23 19:22: POC Glucose 308 H 07/02/23 19:31: WBC 7.1, RBC 4.71, Hgb 14.0, Hct 43.4, MCV 92.1, MCH 29.7, MCHC 32.3, RDW Std Deviation 43.7, RDW Coeff of Nellie 12.9, Plt Count 261, MPV 11.8, Immature Gran % (Auto) 0.600, Neut % (Auto) 74.0 H, Lymph % (Auto) 20.1, [place] % (Auto) 4.6, Eos % (Auto) 0.1, Baso % (Auto) 0.6, Absolute Neuts (auto) 5.3, Absolute Lymphs (auto) 1.43, Nucleated RBC % 0, ESR 24, Sodium 135 L, Potassium 3.8, Chloride 103, Carbon Dioxide 10.0 L, Anion Gap 22 H, BUN 16, Creatinine 1.1 1 H, Est GFR (MDRD) Af Amer 64, Est GFR (MDRD) Non-Af 53 L, BUN/Creatinine Ratio 14.4, Glucose 352 H, Calcium 10.2 H 07/02/23 19:38: Urine Color Yellow, Urine Clarity Clear, Urine pH 5.0, Ur Specif ic [place] 1.020, Urine Protein 30 H, Urine Glucose (UA) 1000 H, Urine Ketones 150 A*, Urine Occult Blood 50 H, Urine Nitrite Negative, Urine Bilirubin Negative, Urine Urobilinogen Normal, Ur Leukocyte Esterase 100 H, Urine RBC 0 SEEN, Urine WBC 25-50 SEEN, Ur Squamous Epith Cells 0-5 SEEN, Urine Bacteria 0 SEEN, Urine Mucus 0 SEEN 07/02/23 21:48: POC Glucose 289 H 07/02/23 22:00: Sodium 138, Potassium 4.0, Chloride 109 H, Carbon Dioxide 9.0 L* , Anion Gap 20 H, BUN 16, Creatinine 0.97, Estim Creat Clear Calc 50.38, Est GFR (MDRD) Af Amer 75, Est GFR (MDRD) Non-Af 62, BUN/Creatinine Ratio 16.5, Glucose 328 H, Calcium 8.8 07/02/23 22:48: POC Glucose 222 H 07/02/23 23:44: POC Glucose 212 H 07/02/23 23:45: Hemoglobin A1c 13.9 H, Ethyl Alcohol < 3.0 07/03/23 00:44: POC Glucose 159 H 07/03/23 01:47: POC Glucose 141 H 07/03/23 01:50: WBC 7.9, RBC 3.58 L, Hgb 10.6 L, Hct 32.1 L, MCV 89.7, MCH 29.6, MCHC 33.0, RDW Std Deviation 42.0, RDW Coeff of Nellie 12.8, Plt Count 189, MPV 11.5, Sodium 143, Potassium 3.3 L, Chloride 118 H, Carbon Dioxide 11.0 L, Anion Gap 14, BUN 13, Creatinine 0.80, Estim Creat Clear Calc 61.09, Est GFR (MDRD) Af Amer 93, Est GFR (MDRD) Non-Af 77, BUN/Creatinine Ratio 16.2, Glucose 153 H, Calcium 7.6 L 07/03/23 02:46: POC Glucose 142 H 07/03/23 03:50: POC Glucose 137 H 07/03/23 04:50: POC Glucose 149 H 07/03/23 05:45: POC Glucose 148 H 07/03/23 05:48: Sodium 141, Potassium 3.2 L, Chloride 118 H, Carbon Dioxide 16.0 L, Anion Gap 7, BUN 12, Creatinine 0.82, Estim Creat Clear Calc 59.60, Est GFR (MDRD) Af Amer 91, Est GFR (MDRD) Non-Af 75, BUN/Creatinine Ratio 14.6, Glucose 179 H, Calcium 8.1 L 07/03/23 06:48: POC Glucose 156 H 07/03/23 08:13: POC Glucose 122 H 07/03/23 09:00: POC Glucose 83 07/03/23 11:34: POC Glucose 185 H Physical Exam Const alert, oriented x3 and no apparent distress Orientation / Consciousness: lethargic HEENT normocephalic and head/scalp atraumatic Mouth: dry mucous membranes Eyes PERRL and EOMs intact bilaterally Neck no lymphadenopathy, supple and no JVD General: trachea midline Lymph Lymphatic: no lymphadenopathy noted and no lymphedema noted Resp Resp Narrative: mildly diminished breath sounds bibasally, no wheezes or crackles. On room air. Cardio regular rate, regular rhythm, S1 normal heart sound, S2 normal heart sound and no murmurs GI normal to inspection, nondistended, normoactive bowel sounds, soft to palpation and non-tender Extremity normal capillary refill, no clubbing, cyanosis or edema and no calf tenderness Skin General Skin Exam: no breakdown Neuro CN's II-XII intact bilaterally, no focal motor deficits, no sensory deficits n oted and deep tendon reflexes 2+ bilaterally Motor Exam: strength 5/5 throughout and general weakness Psych thought process normal, cooperative and affect normal Appearance: appropriate Assessment & Plan Assessment/Plan (1) Elevated serum creatinine: (2) Diabetic ketoacidosis associated with type 1 diabetes mellitus: PLAN: Plan #DKA in the setting of poorly controlled diabetes mellitus * Anion gap is now closed x 2. Will DC insulin drip and started on her home dose of Lantus 30 units daily. * Patient admits to not being compliant with her insulin due to financial consraints * ISS. Accuchecks [facility] * Case management on board to help her with resources for helping with getting insulin in the community. * #Back pain * [place] to be due to constipation. She had been seen in the ED on 06/30/2023 for back pain and lumbar spine xray showed a heavy stool burden * lethargic now * opiates on hold * * #Constipation: as above. on miralax and senna as well as dulcolax #History of alcohol use disorder: on alcohol withdrawal taper. Monior [facility] protocol DVT prophylaxis: lovenox Total time spent on evaluation and management of patient, reviewing chart, discussing plan with patient, discussion with nursing and ancillary staff as well as documentation: 37 mins Charges/Coding Visit Charges Inpatient E&M: 03925 Subs Hosp L2
--- NOTE | 2023-07-03 16:44 | CASEMGMT ---
Social Work JASMINE met with pt and introduced self and role of SW. Pt agreeable to speak with SW. Pt presenting with no health insurance. 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 Pt reports she was on [employer] insurance but when she went to the pharmacy on 06/07 to fill precriptions and diabetic supplies she was told she is no longer eligible for [employer] and there was no prescription coverage. Pt did not have the financial means to fill her prescriptions at that time.?PT states she called [facility] and was told she did not complete the renewal paperwork and therefore insurance was stopped. SW spoke with pt about completing new paperwork and pt is aware she needs to do this and plans to contact [facility]. SW provided pt with prescription assistance information, [employer] and [employer] ire Card.?SW explore financial concerns with housing, food and transportation and pt denies concerns. Pt denies alcohol, drug or tobacco use. Pt may be appropriate for a referral to the [facility] prescription assistance program. JASMINE will continue to follow. RENETTA Eubanks
--- NOTE | 2023-07-03 16:45 | CASEMGMT ---
Addendum entered by Lizet Engel 07/03/23 17:04: TC to Zen at [facility], she is aware order was placed for referral. Original Note: JEFFRY TRINIDAD Assessment Face to Face with patient for initial transition planning/care coordination assessment. JEFFRY TRINIDAD introduced self and role at [facility], pt voices understanding. Pt is A&Ox4 and is resting comfortably in bed and is calm. Care providers, pharmacy, and demographics verified. Admitting dx: DKA LACE Strata: 2 PCP: [facility] Specialists: Pt states she saw Dr. Mcclendon for DM awhile ago but could not recall when. Preferred Pharmacy: [facility], May need to use prescription assistance Insurance: SP Prescription Benefit: No ETOH/Drugs/ Smoking Hx: Occasional alcohol use. Denies current smoking. States smoking history and that she quit 14-15 years ago. States not even a pack per day. Denies illicit drug use. LNOK: Joaquim Gomez (Son) Living Arrangements: Pt reports living in a 1 story home with her son with a basement. 1 step to enter the home with no issues. Pt states the basement steps have a hand rail. Pt states she has a walk in shower. ADLs/IADLs: Pt states she is independent with ADLs. Pt states that she can become SOB with IADLs and her son will help her at times. Transportation: Pt and pt son drives DME: Denies all DME except for BGM. Pt states she cannot afford lancets for her monitor. We discussed the option for Reli-On BGM device at [facility] and pt states she could afford this. Pt reports she has enough supply of insulin at home. HHC/SNF: Denies history or needs. Pt reports she forgets to take her insulin, we discussed setting up alarms to help remind her to take her insulin when needed. She does report that she does log her BS. Discussed [facility] services and pt is agreeable. Order entered. Pt?s goal: Pt goal is to get her BS under control and DC home with her son. Plan: Monitor pt progress and DC home with son with Rx assistance through [facility] if necessary, [facility] Referral Hector Engel RN, CM
[2023-07-03 16:46] LABS: Bedside Glucose 212 mg/dL (74-106)
[2023-07-03 20:44] LABS: Amphetamine Urine VISTA NEGATIVE (<1000 ng/mL); Barbiturate Urine VISTA NEGATIVE (< 200 ng/mL); Benzodiazepine Urine VISTA POSITIVE (< 200 ng/mL); Cocaine Urine VISTA NEGATIVE (< 300 ng/mL); Ecstacy Urine VISTA NEGATIVE (< 500 ng/mL); Methadone Urine VISTA NEGATIVE (< 300 ng/mL); PCP Urine VISTA NEGATIVE (< 25 ng/mL); THC Urine VISTA NEGATIVE (< 50 ng/mL); Vista UDS pH Range 5
[2023-07-03] MEDS: Insulin Lispro 100 UNIT/ML INSULN.PEN SC (21:48)
[2023-07-03] MEDS: Insulin Glargine-YFGN 100 UNIT/ML Pen 40 UNIT SC (21:49)
[2023-07-03 22:18] LABS: Bedside Glucose 290 mg/dL (74-106)
[2023-07-03] MEDS: LORazepam 2 MG/ML Syringe 1 MG IV (23:31)
[2023-07-04] MEDS: HYDROmorphone 0.5 MG/0.5 ML SYRINGE IV (02:55)
[2023-07-04] MEDS: 0.9% Saline Lock 10 ML Syringe IV ×2 (02:56→05:26)
[2023-07-04 03:00] VITALS: BP 137/63; PULSE 117; RESP 14; TEMP 36.5; O2SAT 99
[2023-07-04 05:07] VITALS: BMI 21.9
[2023-07-04] MEDS: Acetaminophen 500 MG Tablet 1000 MG PO ×3 (05:26→22:05)
[2023-07-04 06:02] LABS: Absolute Lymphocyte Count 1.56 X10^3/uL (0.83-4.51); Absolute Neutrophil Count 4.3 X10^3/uL (2.0-7.7); Basophil# 0.03 X10^3/uL; Basophil% 0.5 % (0-1); Hematocrit 35.9 % (37-47); Hemoglobin 12.3 g/dL (12.0-15.0); Lymphocyte # 1.56 X10^3/ul (0.83-4.51); Lymphocyte % 24.8 % (19-41); Mean Corp Hgb Conc 34.3 g/dL (32-36); Mean Corpuscular Hgb 30.5 pg (27.0-32.0); Mean Corpuscular Volume 89.1 fL (81-99); Mean Platelet Vol. 11.3 fl (6.2-12.0); Monocyte# 0.34 X10^3/uL; Monocyte% 5.4 % (0-10); NRBC Flagged by Analyzer 0 % (0-5); Neutrophil # 4.31 X10^3/uL (2.7-7.7); Neutrophil % 68.7 % (47-70); Platelet Count 227 K/mm3 (150-450); RBC Distribution Width CV 13.3 % (11.6-14.6); RBC Distribution Width SD 43.9 fl (35.1-43.9); Red Blood Count 4.03 M/mm3 (4.2-5.4); White Blood Count 6.3 K/mm3 (4.4-11.0)
[2023-07-04 06:09] LABS: Bedside Glucose 154 mg/dL (74-106)
[2023-07-04 06:49] LABS: Anion Gap 15 (5-15); BUN 9 mg/dL (7-18); BUN/Creat Ratio 11.2 RATIO (10-20); Calcium,Total 8.6 mg/dL (8.5-10.1); Chloride 120 mmol/L (98-107); EST Glomerular Filtration Rate 77 mL/min (>60); Est Glom Filt Rate - Afr Amer 93 mL/min (>60); Estimated Creatinine Clearance 61.09 ml/min; Glucose 152 mg/dL (74-106); Potassium 3.8 mmol/L (3.5-5.1); Sodium Level 145 mmol/L (136-145)
[2023-07-04] MEDS: Enoxaparin 40 MG/0.4 ML Syringe SC (08:01)
[2023-07-04] MEDS: Empagliflozin 25 MG Tablet PO (08:01)
[2023-07-04] MEDS: Lisinopril 2.5 MG Tablet PO (08:01)
[2023-07-04] MEDS: Sertraline 100 MG Tablet PO (08:01)
[2023-07-04] MEDS: Senna Tablet 1 TABLET PO ×2 (08:01→22:01)
[2023-07-04] MEDS: Lidocaine 5% Patch 1 PATCH TOPICAL (08:01)
[2023-07-04] MEDS: Polyethylene Glycol 3350 17 GM PACKET PO (08:01)
[2023-07-04 08:20] VITALS: BP 154/94; PULSE 110; RESP 16; TEMP 36.7; O2SAT 100
[2023-07-04 08:25] LABS: Bedside Glucose 143 mg/dL (74-106)
--- NOTE | 2023-07-04 08:31 | CASEMGMT ---
Addendum entered by Margie Garay 07/04/23 11:46: Social Work Pt more awake now. SW explained to pt that SW did try to call [employer] for pt but that they would not speak w/SW, pt needs to call herself. SW gave pt the number to [employer] and encouraged her to call when she is feeling up to it, to do what is needed to get her insurance active again. Pt states understanding. MONA Guzman Addendum entered by Margie Garay 07/04/23 09:09: Social Work SW attempted to speak w/pt this morning, pt not able to stay awake long enough to speak w/physician. SW will follow up again later as time allows. MONA Guzman Original Note: Social Work SW called [employer] this morning, spoke w/a [employer] career representative. They will not speak w/SW as SW not an authorized career representative. SW will speak w/pt and let her know she will need to call herself to see what she needs to do to get her [employer] active again. MONA Guzman
[2023-07-04 09:14] VITALS: O2SAT 100
--- NOTE | 2023-07-04 11:04 | PN_ITS ---
Subjective Subjective Patient seen and examined. She feels weak and frail. She has no active complaints. Review of systems is otherwise negative. Objective Data Objective Data Vital Signs: Vital Signs Temp Pulse Resp BP Pulse Ox O2 Del Method 98.1 F 110 H 16 154/94 H 100 Room Air 07/04/23 08:20 07/04/23 08:20 07/04/23 08:20 07/04/23 08:20 07/04/23 09:14 07/04/23 09:14 Oxygen Delivery Method Room Air Weight: 123 lb 10.869 oz Body Mass Index (BMI) 21.9 Intake & Output: Intake and Output for Last 24 Hours 07/02/23 07/03/23 07/04/23 23:59 23:59 23:59 Intake Total 2038. 4026.31 / 4026.31 Output Total 4125 / 4125 0 / 0 Balance -98.69 / -98.69 0 / 0 Lab / Micro Data 07/04/23 05:50 07/04/23 05:50 Labs: Laboratory Results - last 24 hr 07/02/23 19:38: Urine Opiates Screen POSITIVE H, Urine Methadone Screen NEGA TIVE, Ur Barbiturates Screen NEGATIVE, Ur Phencyclidine Scrn NEGATIVE, Ur Amphetamines Screen NEGATIVE, MDMA (Ecstasy) Screen NEGATIVE, U Benzodiazepines Scrn POSITIVE H, Urine Cocaine Screen NEGATIVE, U Cannabinoids Screen NEGATIVE, Ur Drug Screen Comment 07/03/23 11:34: POC Glucose 185 H 07/03/23 16:29: POC Glucose 212 H 07/03/23 21:46: POC Glucose 290 H 07/04/23 05:35: POC Glucose 154 H 07/04/23 05:50: WBC 6.3, RBC 4.03 L, Hgb 12.3, Hct 35.9 L, MCV 89.1, MCH 30.5, MCHC 34.3, RDW Std Deviation 43.9, RDW Coeff of Nellie 13.3, Plt Count 227, MPV 11.3, Immature Gran % (Auto) 0.600, Neut % (Auto) 68.7, Lymph % (Auto) 24.8, [place] % (Auto) 5.4, Eos % (Auto) 0.0, Baso % (Auto) 0.5, Absolute Neuts (auto) 4.3, Absolute Lymphs (auto) 1.56, Nucleated RBC % 0, Sodium 145, Potassium 3.8, Chloride 120 H, Carbon Dioxide 10.0 L, Anion Gap 15, BUN 9, Creatinine 0.80, Estim Creat Clear Calc 61.09, Est GFR (MDRD) Af Amer 93, Est GFR (MDRD) Non-Af 77, BUN/Creatinine Ratio 11.2, Glucose 152 H, Calcium 8.6 07/04/23 08:00: POC Glucose 143 H Micro: Microbiology 07/02/23 19:38 Urine, Clean Catch Urine Culture - Final Culture exhibits no growth. Physical Exam Const alert and oriented x3 General Appearance: cooperative Orientation / Consciousness: lethargic HEENT normocephalic, head/scalp atraumatic and hearing grossly normal bilaterally Eyes PERRL, EOMs intact bilaterally and conjunctivae normal Neck full ROM, no lymphadenopathy, supple and no JVD General: trachea midline Lymph Lymphatic: no lymphadenopathy noted and no lymphedema noted Chest inspection of chest normal Resp normal respiratory effort, normal air movement, no use of accessory muscles and clear to auscultation bilaterally Cardio regular rate, regular rhythm, S1 normal heart sound, S2 normal heart sound, no murmurs and peripheral pulses 2+ throughout Cardio Narrative: Sinus tachycardia. GI normal to inspection, nondistended, normoactive bowel sounds, soft to palpation, non-tender and non-distended Back/Spine normal ROM Extremity normal to inspection, full ROM, normal capillary refill, no clubbing, cyanosis or edema, no calf tenderness and no pedal edema Skin no rashes or lesions noted General Skin Exam: no breakdown Neuro CN's II-XII intact bilaterally, moves all extremities, no focal motor deficits, no sensory deficits noted and deep tendon reflexes 2+ bilaterally Neuro Narrative: lethargic, frail Motor Exam: strength 5/5 throughout and general weakness Psych thought process normal and cooperative Psych Narrative: flat affect Assessment & Plan Assessment/Plan (1) Elevated serum creatinine: (2) Diabetic ketoacidosis associated with type 1 diabetes mellitus: PLAN: Plan #DKA in the setting of poorly controlled diabetes mellitus * DKA has resolved. bicarb was down to 10 today, but anion gap was 15. Will repeat BMP. glucose was only 152. * on lantus 30 units daily * Patient admits to not being compliant with her insulin due to financial constraints * ISS. Accuchecks [facility] * Case management on board to help her with resources for helping with getting insulin in the community. * #Back pain * [place] to be due to constipation. She had been seen in the ED on 06/30/2023 for back pain and lumbar spine xray showed a heavy stool burden * still lethargic. She apparently received a dose of IV opiates yesterday * opiates on hold * #Constipation: as above. on miralax and senna as well as dulcolax #History of alcohol use disorder: on alcohol withdrawal taper. Monior [facility] protocol DVT prophylaxis: lovenox Total time spent on evaluation and management of patient, reviewing chart, discussing plan with patient, discussion with nursing and ancillary staff as wel l as documentation: 45 mins Disposition: anticipate dc over the next 24-48 hours Charges/Coding Visit Charges Inpatient E&M: 05456 [facility] Hosp L3
[2023-07-04 12:12] LABS: Bedside Glucose 129 mg/dL (74-106)
[2023-07-04 13:07] LABS: Anion Gap 11 (5-15); BUN 11 mg/dL (7-18); BUN/Creat Ratio 11.6 RATIO (10-20); Calcium,Total 9.1 mg/dL (8.5-10.1); Chloride 120 mmol/L (98-107); Creatinine, Serum 0.95 mg/dL (0.55-1.02); EST Glomerular Filtration Rate 64 mL/min (>60); Est Glom Filt Rate - Afr Amer 77 mL/min (>60); Estimated Creatinine Clearance 51.44 ml/min; Glucose 144 mg/dL (74-106); Potassium 3.6 mmol/L (3.5-5.1); Sodium Level 146 mmol/L (136-145)
[2023-07-04 13:17] LABS: Lactic Acid 0.7 mmol/L (0.4-1.9)
[2023-07-04] MEDS: 0.9% Normal Saline (1000mL) 1,000 ML 125 ML IV ×2 (13:42→21:29)
[2023-07-04 13:50] VITALS: BP 90/61; PULSE 110; RESP 17; TEMP 36.6; O2SAT 100
[2023-07-04 15:57] LABS: Bedside Glucose 151 mg/dL (74-106)
[2023-07-04 16:00] VITALS: BP 113/63; PULSE 98; RESP 16; TEMP 36.6; O2SAT 99
[2023-07-04 17:30] LABS: Bedside Glucose 187 mg/dL (74-106)
[2023-07-04] MEDS: Insulin Lispro 100 UNIT/ML INSULN.PEN SC (18:20)
[2023-07-04 21:46] VITALS: BP 141/71; PULSE 97; RESP 16; TEMP 36.9; O2SAT 100
--- NOTE | 2023-07-04 21:48 | NURSING ---
GLUCOSE 62, only symptom pt reports is being tired. snack given will recheck
--- NOTE | 2023-07-04 22:17 | NURSING ---
GLU RECHECK 87
[2023-07-04 22:29] LABS: Bedside Glucose 87 mg/dL (74-106)
[2023-07-04 22:29] LABS: Bedside Glucose 62 mg/dL (74-106)
--- NOTE | 2023-07-05 03:29 | NURSING ---
recheck glucose during night 117 result
[2023-07-05 03:30] VITALS: BP 121/72; PULSE 92; RESP 16; TEMP 36.9; O2SAT 98
[2023-07-05 03:46] LABS: Bedside Glucose 117 mg/dL (74-106)
[2023-07-05] MEDS: Acetaminophen 500 MG Tablet 1000 MG PO ×3 (05:23→21:52)
[2023-07-05 06:00] VITALS: BMI 21.9
--- NOTE | 2023-07-05 06:54 | NURSING ---
glucose 62, denies symptoms other than being tired, gave snack, instructed pt to order breakfast, will recheck after snack
[2023-07-05 07:32] LABS: Absolute Lymphocyte Count 1.94 X10^3/uL (0.83-4.51); Absolute Neutrophil Count 1.5 X10^3/uL (2.0-7.7); Basophil# 0.03 X10^3/uL; Basophil% 0.8 % (0-1); Eosinophil# 0.06 X10^3/uL; Eosinophils% 1.5 % (0-5); Hematocrit 31.2 % (37-47); Hemoglobin 10.6 g/dL (12.0-15.0); Lymphocyte # 1.94 X10^3/ul (0.83-4.51); Lymphocyte % 49.5 % (19-41); Mean Corpuscular Hgb 29.6 pg (27.0-32.0); Mean Corpuscular Volume 87.2 fL (81-99); Mean Platelet Vol. 11.3 fl (6.2-12.0); Monocyte# 0.36 X10^3/uL; Monocyte% 9.2 % (0-10); NRBC Flagged by Analyzer 0 % (0-5); Neutrophil # 1.51 X10^3/uL (2.7-7.7); Neutrophil % 38.5 % (47-70); Platelet Count 201 K/mm3 (150-450); RBC Distribution Width CV 13.8 % (11.6-14.6); RBC Distribution Width SD 43.9 fl (35.1-43.9); Red Blood Count 3.58 M/mm3 (4.2-5.4); White Blood Count 3.9 K/mm3 (4.4-11.0)
--- NOTE | 2023-07-05 07:33 | NURSING ---
glucose recheck 84, breakfast ordered
[2023-07-05 07:44] LABS: Anion Gap 3 (5-15); BUN 15 mg/dL (7-18); Calcium,Total 8.9 mg/dL (8.5-10.1); Chloride 120 mmol/L (98-107); Creatinine, Serum 0.65 mg/dL (0.55-1.02); EST Glomerular Filtration Rate 98 mL/min (>60); Est Glom Filt Rate - Afr Amer 119 mL/min (>60); Estimated Creatinine Clearance 75.19 ml/min; Glucose 56 mg/dL (74-106); Potassium 2.9 mmol/L (3.5-5.1); Sodium Level 145 mmol/L (136-145)
[2023-07-05 07:46] VITALS: O2SAT 98
[2023-07-05 07:47] LABS: Bedside Glucose 84 mg/dL (74-106)
[2023-07-05 07:47] LABS: Bedside Glucose 62 mg/dL (74-106)
[2023-07-05 10:03] VITALS: BP 131/71; PULSE 96; RESP 16; TEMP 36.4; O2SAT 100
[2023-07-05] MEDS: Glucerna Shake 120 ML LIQUID PO ×4 (10:10→21:45)
[2023-07-05] MEDS: Lidocaine 5% Patch 1 PATCH TOPICAL (10:10)
[2023-07-05] MEDS: Senna Tablet 1 TABLET PO ×2 (10:11→21:53)
[2023-07-05] MEDS: Polyethylene Glycol 3350 17 GM PACKET PO (10:11)
[2023-07-05] MEDS: Lisinopril 2.5 MG Tablet PO (10:11)
[2023-07-05] MEDS: Enoxaparin 40 MG/0.4 ML Syringe SC (10:11)
[2023-07-05] MEDS: Sertraline 100 MG Tablet PO (10:12)
[2023-07-05] MEDS: Empagliflozin 25 MG Tablet PO (10:12)
--- NOTE | 2023-07-05 11:03 | CASEMGMT ---
Social Work SW asked physician to send scripts to pharmacy by 12 so we can use hospital assist to get pt medications. SW called retail pharmacy, spoke w/Shandra, they do not yet have scripts but can bring to pt once prescriptions sent to them. SW let them know using hospital assist, tubed them hospital assist form. MONA Guzman
[2023-07-05] MEDS: Insulin Lispro 100 UNIT/ML INSULN.PEN SC ×3 (11:33→21:44)
[2023-07-05 12:22] LABS: Bedside Glucose 377 mg/dL (74-106)
--- NOTE | 2023-07-05 13:52 | PN_ITS ---
Subjective Subjective Patient seen and examined. She has no active complaints. She remains quite lethargic and her blood sugars were down in the 60s today. Patient has not been eating and drinking well. Review of systems otherwise negative. Objective Data Objective Data Vital Signs: Vital Signs Temp Pulse Resp BP Pulse Ox O2 Del Method 97.5 F L 96 16 131/71 H 100 Room Air 07/05/23 10:03 07/05/23 10:03 07/05/23 10:03 07/05/23 10:03 07/05/23 10:03 07/05/23 10:03 Oxygen Delivery Method Room Air Weight: 123 lb 10.869 oz Body Mass Index (BMI) 21.9 Intake & Output: Intake and Output for Last 24 Hours 07/03/23 07/04/23 07/05/23 23:59 23:59 23:59 Intake Total 4026.31 / 4026.31 1022.92 / 1022.92 1320 / 1320 Output Total 4125 / 4125 450 / 450 Balance -98.69 / -98.69 572.92 / 572.92 1320 / 1320 Lab / Micro Data 07/05/23 07:00 07/05/23 07:00 Labs: Laboratory Results - last 24 hr 07/04/23 15:39: POC Glucose 151 H 07/04/23 17:12: POC Glucose 187 H 07/04/23 21:36: POC Glucose 62 L 07/04/23 22:10: POC Glucose 87 07/05/23 03:23: POC Glucose 117 H 07/05/23 06:48: POC Glucose 62 L 07/05/23 07:00: WBC 3.9 L, RBC 3.58 L, Hgb 10.6 L, Hct 31.2 L, MCV 87.2, MCH 29.6, MCHC 34.0, RDW Std Deviation 43.9, RDW Coeff of Nellie 13.8, Plt Count 201, MPV 11.3, Immature Gran % (Auto) 0.500, Neut % (Auto) 38.5 L, Lymph % (Auto) 49.5 H, [place] % (Auto) 9.2, Eos % (Auto) 1.5, Baso % (Auto) 0.8, Absolute Neuts (auto) 1.5 L, Absolute Lymphs (auto) 1.94, Nucleated RBC % 0, Sodium 145, Potassium 2.9 L, Chloride 120 H, Carbon Dioxide 22.0, Anion Gap 3 L, BUN 15, Creatinine 0.65, Estim Creat Clear Calc 75.19, Est GFR (MDRD) Af Amer 119, Est GFR (MDRD) Non-Af 98, BUN/Creatinine Ratio 23.0 H, Glucose 56 L, Calcium 8.9 07/05/23 07:29: POC Glucose 84 07/05/23 11:31: POC Glucose 377 H Micro: Microbiology 07/02/23 19:38 Urine, Clean Catch Urine Culture - Final Culture exhibits no growth. Physical Exam Const alert, oriented x3 and no apparent distress General Appearance: cooperative Orientation / Consciousness: lethargic HEENT normocephalic, head/scalp atraumatic and hearing grossly normal bilaterally Eyes PERRL, EOMs intact bilaterally and conjunctivae normal Neck full ROM, no lymphadenopathy, supple and no JVD General: trachea midline Lymph Lymphatic: no lymphadenopathy noted and no lymphedema noted Chest inspection of chest normal Resp normal respiratory effort, normal air movement, no use of accessory muscles and clear to auscultation bilaterally Resp Narrative: mildly diminished breath sounds bibasally, no wheezes or crackles. On room air. Cardio regular rate, regular rhythm, S1 normal heart sound, S2 normal heart sound, no murmurs and peripheral pulses 2+ throughout GI normal to inspection, nondistended, normoactive bowel sounds, soft to palpation, non-tender and non-distended Back/Spine normal ROM Extremity normal to inspection, full ROM, normal capillary refill, no clubbing, cyanosis or edema, no calf tenderness and no pedal edema Skin no rashes or lesions noted General Skin Exam: no breakdown Neuro CN's II-XII intact bilaterally, moves all extremities, no focal motor deficits, no sensory deficits noted and deep tendon reflexes 2+ bilaterally Neuro Narrative: lethargic, frail Motor Exam: strength 5/5 throughout and general weakness Psych thought process normal, cooperative and affect normal Psych Narrative: flat affect Appearance: appropriate Assessment & Plan Assessment/Plan (1) Elevated serum creatinine: (2) Diabetic ketoacidosis associated with type 1 diabetes mellitus: PLAN: Plan #DKA in the setting of poorly controlled diabetes mellitus * DKA has resolved. * on lantus 40 units qhs * Patient admits to not being compliant with her insulin due to financial constraints * ISS. Accuchecks [facility] * Case management on board to help her with resources for helping with getting insulin in the community. * will dc her jardiance. Per records, it had been discontinued by her manager contracting back in April 2022 when she last saw her. It is therefore unclear why she is still on it. * Was hypoglycemic this morning because she is not eating and drinking well. Patient encouraged to eat and drink well to prevent hypoglycemia. Jardiance discontinued. * #Back pain * [place] to be due to constipation. She had been seen in the ED on 06/30/2023 for back pain and lumbar spine xray showed a heavy stool burden * largely resolved. * #Constipation: as above. on miralax and senna as well as dulcolax #History of alcohol use disorder: on alcohol withdrawal taper. Monior [facility] protocol DVT prophylaxis: lovenox Total time spent on evaluation and management of patient, reviewing chart, discussing plan with patient, discussion with nursing and ancillary staff as well as documentation: 45 mins Disposition: anticipate dc over the next 24 Charges/Coding Visit Charges Inpatient E&M: 38432 Subs Hosp L2
[2023-07-05 16:24] VITALS: BP 136/75; PULSE 98; RESP 18; TEMP 36.5; O2SAT 100
[2023-07-05 17:58] LABS: Bedside Glucose 171 mg/dL (74-106)
[2023-07-05 21:30] VITALS: BP 127/78; PULSE 92; RESP 18; TEMP 37.3; O2SAT 99
[2023-07-05 22:46] LABS: Bedside Glucose 164 mg/dL (74-106)
[2023-07-06 03:24] VITALS: BP 154/88; PULSE 87; RESP 18; TEMP 37; O2SAT 100
[2023-07-06 03:49] LABS: Bedside Glucose 94 mg/dL (74-106)
[2023-07-06 06:23] LABS: Absolute Lymphocyte Count 2.04 X10^3/uL (0.83-4.51); Absolute Neutrophil Count 1.3 X10^3/uL (2.0-7.7); Basophil# 0.04 X10^3/uL; Eosinophil# 0.06 X10^3/uL; Eosinophils% 1.6 % (0-5); Hematocrit 28.7 % (37-47); Hemoglobin 9.9 g/dL (12.0-15.0); Lymphocyte # 2.04 X10^3/ul (0.83-4.51); Mean Corp Hgb Conc 34.5 g/dL (32-36); Mean Corpuscular Hgb 29.7 pg (27.0-32.0); Mean Corpuscular Volume 86.2 fL (81-99); Mean Platelet Vol. 11.9 fl (6.2-12.0); Monocyte# 0.38 X10^3/uL; Monocyte% 9.9 % (0-10); NRBC Flagged by Analyzer 0 % (0-5); Neutrophil # 1.31 X10^3/uL (2.7-7.7); Platelet Count 185 K/mm3 (150-450); RBC Distribution Width CV 13.2 % (11.6-14.6); RBC Distribution Width SD 41.4 fl (35.1-43.9); Red Blood Count 3.33 M/mm3 (4.2-5.4); White Blood Count 3.9 K/mm3 (4.4-11.0)
[2023-07-06 06:52] LABS: Anion Gap 4 (5-15); BUN 12 mg/dL (7-18); Calcium,Total 8.5 mg/dL (8.5-10.1); Chloride 110 mmol/L (98-107); EST Glomerular Filtration Rate 133 mL/min (>60); Est Glom Filt Rate - Afr Amer 161 mL/min (>60); Estimated Creatinine Clearance 97.74 ml/min; Glucose 132 mg/dL (74-106); Potassium 2.7 mmol/L (3.5-5.1); Sodium Level 141 mmol/L (136-145)
[2023-07-06] MEDS: Acetaminophen 500 MG Tablet 1000 MG PO ×2 (06:52→15:52)
[2023-07-06] MEDS: Potassium Chloride Oral Tablet 20 MEQ 60 MEQ PO (08:10)
[2023-07-06] MEDS: Potassium Chloride 10mEq/100mL 10 MEQ/100 ML IV.SOLN. 100 MEQ IV BOLUS ×4 (08:18→11:23)
[2023-07-06] MEDS: Glucerna Shake 120 ML LIQUID PO (08:20)
[2023-07-06] MEDS: 0.9% Saline Lock 10 ML Syringe IV (08:20)
[2023-07-06] MEDS: Senna Tablet 1 TABLET PO (08:22)
[2023-07-06] MEDS: Sertraline 100 MG Tablet PO (08:22)
[2023-07-06] MEDS: Lisinopril 2.5 MG Tablet PO (08:22)
[2023-07-06] MEDS: Polyethylene Glycol 3350 17 GM PACKET PO (08:23)
[2023-07-06] MEDS: Lidocaine 5% Patch 1 PATCH TOPICAL (09:27)
[2023-07-06] MEDS: Enoxaparin 40 MG/0.4 ML Syringe SC (09:28)
[2023-07-06 09:30] VITALS: BP 149/79; PULSE 94; RESP 18; TEMP 36.6; O2SAT 100
[2023-07-06 11:30] VITALS: O2SAT 97
--- NOTE | 2023-07-06 11:59 | PCM.DC.SUM ---
Providers Date of Admission: 07/02/23 Date of Discharge: 07/06/23 Primary Care Physician: Dr. Milind Lamb MD Reason For Visit: DKA Diagnosis Discharge Diagnosis (1) Elevated serum creatinine: Status: Acute Code(s): R79.89 - Other specified abnormal findings of blood chemistry (2) Diabetic ketoacidosis associated with type 1 diabetes mellitus: Status: Acute Code(s): E10.10 - Type 1 diabetes mellitus with ketoacidosis without coma Plan #DKA in the setting of poorly controlled diabetes mellitus DKA has resolved. on lantus 40 units qhs Patient admits to not being compliant with her insulin due to financial constraints ISS. Accuchecks [facility] Case management on board to help her with resources for helping with getting insulin in the community. will dc her jardiance. Per records, it had been discontinued by her enrollment advisor back in April 2022 when she last saw her. It is therefore unclear why she is still on it. Was hypoglycemic this morning because she is not eating and drinking well. Patient encouraged to eat and drink well to prevent hypoglycemia. Jardiance discontinued. #Back pain [place] to be due to constipation. She had been seen in the ED on 06/30/2023 for back pain and lumbar spine xray showed a heavy stool burden largely resolved. #Constipation: as above. on miralax and senna as well as dulcolax #History of alcohol use disorder: on alcohol withdrawal taper. [facility] protocol DVT prophylaxis: lovenox Total time spent on evaluation and management of patient, reviewing chart, discussing plan with patient, discussion with nursing and ancillary staff as well as documentation: 45 mins Disposition: anticipate dc over the next 24 Medications at Discharge Home Medications flash glucose sensor (FreeStyle Moncho 2 Sensor kit) #2 ea 04/11/22 naproxen 500 mg tablet 500 mg PO DAILY PRN Pain 07/26/22 sertraline 100 mg tablet 100 mg PO DAILY depression 07/26/22 blood sugar diagnostic (FreeStyle Lite Strips) #100 ea 07/28/22 blood sugar diagnostic (FreeStyle Test strips) #100 ea 07/28/22 blood-glucose meter (FreeStyle Lite Meter kit) #1 ea 07/28/22 lancets 28 gauge (FreeStyle Lancets) #100 ea 07/28/22 pen needle, diabetic 32 gauge x 5/32 (BD Ultra-Fine Josefina Pen Needle) #50 ea 07/28/22 diazepam 2 mg tablet 2 mg PO TID PRN PRN back pain #10 TABLETS 07/01/23 insulin lispro 100 unit/mL subcutaneous pen (Humalog KwikPen (U-100) Insulin) 6 unit (0.06 mL) subcut TID #15 mL 07/05/23 insulin lispro 100 unit/mL subcutaneous pen (Humalog KwikPen (U-100) Insulin) 6 unit (0.06 mL) subcut TIDAC #15 mL 07/05/23 lisinopril 2.5 mg tablet 2.5 mg PO DAILY blood pressurre #30 tabs 07/05/23 metformin 1,000 mg tablet 1,000 mg PO BID #60 tabs 07/05/23 insulin glargine U-300 conc 300 unit/mL (3 mL) subcutaneous pen (Toujeo Max U-300 SoloStar) 30 unit (0.1 mL) subcut DAILY #6 mL 07/06/23 lancets 28 gauge (FreeStyle Lancets) #100 ea 07/06/23 Hospital Course Operations None Procedures None Summary of Care Provided Minutes Spent on Discharge: 55 Hospital Course: Patient is a 63-year-old female with a past medical history as outlined who was admitted through the ED on 07/02/2023 with a complaint of generalized malaise with poor oral intake and worsening back pain. Patient was quite sedated and had pinpoint pupils when she came into the ED. She had been in the ED recently for low back pain and had been discharged home with 12 tablets of Percocet. Patient was also a known diabetic but had not been filling her insulin prescriptions due to financial challenges. She admitted to feeling very dry and drank water very often. Of note, patient had been on Jardiance and Per her enrollment advisor note from April 2022, this had been discontinued due to risk of DKA. On admission she was found to be in DKA with elevated anion gap and blood sugar of 352. She was admitted to the ICU and managed for DKA and started on insulin drip per DKA protocol. She was hydrated aggressively with IV fluids as well. The opiates were discontinued. The DKA resolved with blood sugars trended down and anion gap closed x 2. Her insulin was resumed. Patient was not eating and drinking also had a few episodes of hypoglycemia. Her long-acting insulin was decreased to 30 units daily. Per enrollment advisor notes she was supposed to be on Lantus 40 units daily and metformin 1 g twice daily. However the long-acting insulin was cut down to 30 units daily due to her blood sugars running low. As stated, Jardiance was discontinued due to risk of DKA as per Therapeutic Recreation Assistant note from April 2022. She was discharged home on 07/06/2023 and is follow-up with her primary care doctor and endocrinology within 1 to 2 weeks. She was counseled to keep a log of her blood sugars at home so that the dosage could be adjusted as needed. Patient seen and examined prior to discharge. She had no active complaints and had an uneventful night. Review of systems otherwise negative. Labs and vitals reviewed. Home medication reviewed and reconciled. Physical Exam Const alert, oriented x3 and no apparent distress General Appearance: cooperative and comfortable Orientation / Consciousness: awake and lethargic HEENT normocephalic, head/scalp atraumatic, hearing grossly normal bilaterally and moist oral mucous membranes Mouth: oral and palatal mucosa normal Eyes PERRL, EOMs intact bilaterally and conjunctivae normal Eyes Narrative: Pinpoint pupils noted. Neck full ROM, no lymphadenopathy, supple and no JVD General: trachea midline Lymph Lymphatic: no lymphadenopathy noted and no lymphedema noted Chest inspection of chest normal Resp normal respiratory effort, normal air movement, no retractions, no use of accessory muscles and clear to auscultation bilaterally Cardio regular rate, regular rhythm, S1 normal heart sound, S2 normal heart sound, no murmurs and peripheral pulses 2+ throughout GI normal to inspection, nondistended, normoactive bowel sounds, soft to palpation, non-tender and non-distended Back/Spine normal ROM Extremity normal to inspection, full ROM, normal capillary refill, no clubbing, cyanosis or edema, no calf tenderness and no pedal edema Skin no rashes or lesions noted General Skin Exam: no breakdown Neuro oriented x3, CN's II-XII intact bilaterally, moves all extremities, no focal motor deficits, no sensory deficits noted and deep tendon reflexes 2+ bilaterally Neuro Narrative: l Sensorium / Orientation: awake and alert Motor Exam: strength 5/5 throughout and general weakness Psych thought process normal, cooperative and affect normal Appearance: appropriate Weight / BMI Weight Weight: 123 lb 10.869 oz Body Mass Index (BMI) 21.9 ABG / Lab / Microbiology Data 07/06/23 05:27 07/06/23 05:27 Laboratory: Laboratory Results - last 24 hr 07/05/23 11:31: POC Glucose 377 H 07/05/23 16:13: POC Glucose 171 H 07/05/23 21:42: POC Glucose 164 H 07/06/23 03:29: POC Glucose 94 07/06/23 05:27: WBC 3.9 L, RBC 3.33 L, Hgb 9.9 L, Hct 28.7 L, MCV 86.2, MCH 29.7, MCHC 34.5, RDW Std Deviation 41.4, RDW Coeff of Nellie 13.2, Plt Count 185, MPV 11.9, Immature Gran % (Auto) 0.500, Neut % (Auto) 34.0 L, Lymph % (Auto) 53.0 H, [place] % (Auto) 9.9, Eos % (Auto) 1.6, Baso % (Auto) 1.0, Absolute Neuts (auto) 1.3 L, Absolute Lymphs (auto) 2.04, Nucleated RBC % 0, Sodium 141, Potassium 2.7 L*, Chloride 110 H, Carbon Dioxide 27.0, Anion Gap 4 L, BUN 12, Creatinine 0.50 L, Estim Creat Clear Calc 97.74, Est GFR (MDRD) Af Amer 161, Est GFR (MDRD) Non-Af 133, BUN/Creatinine Ratio 24.0 H, Glucose 132 H, Calcium 8.5 Microbiology: Microbiology 07/02/23 19:38 Urine, Clean Catch Urine Culture - Final Culture exhibits no growth. D/C Instructions Discharge Diet: 1800 Calorie Control Diet Discharge Activity: Return to Normal Activity Weight Bearing Status: Weight bearing as tolerated Call your doctor if you observe: Fever of 101 or Higher, Shortness of breath, Dizziness, Swelling in the ankles, Chest pain and Increased palpitations (irregular heartbeat) Meaningful Use Info Meaningful Use Diagnoses (Choose all that apply): None applicable Discharge Plan Admission Admit Date/Time: 07/02/23 21:08 Primary Reason for Your Visit: DKA Attending Provider: Sanjana Quigley Primary Care Provider: Milind Lamb Consulting Providers: Torsten Sutton Instructions Patient Instructions: Ketoacidosis Ch Additional Instructions / Restrictions: Toujeo dose decreased to 30 units daily. Patient encouraged to eat and drink well at home to prevent hypoglycemia. Jardiance discontinued due to risk of DKA. Discharge Orders/Prescriptions Prescriptions: New metformin 1,000 mg tablet 1,000 mg PO BID Qty: 60 2RF insulin lispro [Humalog KwikPen Insulin] 100 unit/mL insulin pen 6 unit subcut TID Qty: 15 2RF (DME) lancets [FreeStyle Lancets] 28 gauge misc See Rx Instructions .Route Qty: 100 0RF Rx Instructions: As directed Toujeo Max U-300 SoloStar 300 unit/mL (3 mL) insulin pen 30 unit subcut DAILY Qty: 6 2RF Continued (DME) FreeStyle Moncho 2 Sensor Kit See Rx Instructions .Route Qty: 2 5RF Rx Instructions: As directed sertraline 100 mg tablet 100 mg PO DAILY naproxen 500 mg tablet 500 mg PO DAILY PRN (Reason: Pain) (DME) FreeStyle Test Strip See Rx Instructions .Route Qty: 100 0RF Rx Instructions: As directed (DME) pen needle, diabetic [BD Ultra-Fine Josefina Pen Needle] 32 gauge x 5/32 needle See Rx Instructions .ROUTE .MEDSUPPLY Qty: 50 5RF Rx Instructions: daily (DME) blood-glucose meter [FreeStyle Lite Meter] Kit See Rx Instructions .Route Qty: 1 0RF Rx Instructions: As directed (DME) FreeStyle Lite Strips Strip See Rx Instructions .Route Qty: 100 0RF Rx Instructions: As directed lisinopril 2.5 mg tablet 2.5 mg PO DAILY Qty: 30 2RF insulin lispro [Humalog KwikPen Insulin] 100 unit/mL Insulin Pen 6 unit subcut TIDAC Qty: 15 2RF diazepam 2 mg tablet 2 mg PO TID PRN PRN (Reason: back pain) Qty: 10 0RF Discontinued Toujeo Max U-300 SoloStar 300 unit/mL (3 mL) insulin pen 20 unit subcut BID Qty: 6 0RF Toujeo SoloStar U-300 Insulin 300 unit/mL (1.5 mL) insulin pen 40 unit SUBCUT QHS Patient Comments: 40 UNIT UNDER SKIN AT BEDTIME Humalog U-100 Insulin 100 unit/mL cartridge 6 unit subcut .COMPLEX Patient Comments: inject 6 units subcutaneously with each meal Rx Instructions: 6 units subcutaneously with meals; with meals Jardiance 25 mg tablet Patient Comments: TAKE 1 TABLET BY MOUTH EVERY DAY No Action (DME) lancets [FreeStyle Lancets] 28 gauge misc See Rx Instructions .Route Qty: 100 0RF Rx Instructions: As directed Referrals / Follow Up: Milind Lamb MD [Primary Care Provider] - Within 2 Weeks Disposition Disposition (needs filled in before D/C Order can be placed): Home, Self Care Charges/Coding Visit Charges Inpatient E&M: 16773 Disch Hosp >30min
[2023-07-06 12:39] VITALS: BP 141/71; PULSE 98; RESP 18; TEMP 36.8; O2SAT 100
[2023-07-06] MEDS: Insulin Lispro 100 UNIT/ML INSULN.PEN SC (12:46)
[2023-07-06 13:09] LABS: Bedside Glucose 223 mg/dL (74-106)
--- NOTE | 2023-07-08 10:08 | CCN.REFER ---
VM LEFT WITH PATIENT TO RETURN CALL TO DISCUSS CCN SERVICES AND SET UP HOME VISIT
--- NOTE | 2023-07-14 13:52 | CCN.REFER ---
PATIENT AGREEABLE TO CCN SERVICES.
== END 2023-07-06 17:49 | disposition home or self-care (01) | DRG 639 ==
LOC: ED 20:19 → ICU 07-03 01:02 → MS3 07-04 15:52
PROVIDERS: Admitting Provider Hospitalist; Emergency Provider Emergency Medicine; PCP Family Medicine; Visit Provider Student in an Organized Health Care Education/Training Program
DX: E10.10 Type 1 diabetes mellitus with ketoacidosis without coma (principal); E10.649 Type 1 diabetes mellitus with hypoglycemia without coma; Z79.4 Long term (current) use of insulin; F32.A Depression, unspecified; I10 Essential (primary) hypertension; K59.00 Constipation, unspecified; F41.9 Anxiety disorder, unspecified; Z59.86 Financial insecurity; Z91.190 Patient's noncompliance with other medical treatment and regimen due to financial hardship; Z79.891 Long term (current) use of opiate analgesic; Z79.899 Other long term (current) drug therapy; Z86.59 Personal history of other mental and behavioral disorders; Z86.16 Personal history of COVID-19; Z87.891 Personal history of nicotine dependence
CPT/HCPCS: 36415; 80048; 80307; 80320; 81001; 82962; 83036; 83605; 85025; 85027; 85652; 87086; 93005; 94668; 97110; 97162; 97166; 97530; 97535; 97802; 97803; 99285; J7030; A4216; G0480

== ENCOUNTER 2023-07-29 12:33 | Emergency (ER) | payer SELFPAY ==
[2023-07-29 12:34] VITALS: BP 153/94; PULSE 95; RESP 22; TEMP 35.5; O2SAT 100; BMI 23.7
[2023-07-29 13:32] LABS: Bedside Glucose 127 mg/dL (74-106)
--- NOTE | 2023-07-29 14:06 | EDS_ITS ---
HPI History of Present Illness Chief Complaint: Hyperglycemia Informant: patient and family (son) Narrative Narrative: Patient states she has had trouble controlling her blood sugars. She states several months ago she was admitted to the hospital in DKA. She at one point had Jardiance changed to Toujeo, she had the dose changed to couple times, and she thinks all of that preceded that but she has had changes since then. The last one was a month or 2 ago. She is on Humalog. In the past 2 weeks she has had a diet change, trying to manage her sugars better, she has had a nurse come to the house twice to help her with this, the last time was yesterday and she felt fine. She woke up this morning feeling very shaky and Poorly, lightheaded, fell like her blood sugar was low, her son tried to get her some oral juice, but she was too lethargic to drink and so EMS was called, her blood sugar was in the 30s they gave her some IV glucose, brought up to the 170s and she was feeling better the so they left. Later in the day she is feeling very poorly like her blood sugar was high, was around 400 so EMS transported her here to the hospital this time. She is feeling a little better now, but feels like things are far away and I am trying to bring them closer like she is still off a little. She denies any recent illness. She denies any chest discomfort, dyspnea, nausea, vomiting, diarrhea or any other focal symptoms. When her blood sugar was low she was having trouble speaking but that resolved when her blood sugar came up. PFSH PFSH Medical History Anxiety and depression Back pain COVID-19 Diabetes Diabetes mellitus, type 2 Diabetic ketoacidosis associated with type 1 diabetes mellitus ETOH abuse GERD (gastroesophageal reflux disease) History of alcoholism HTN (hypertension) Hypokalemia Pyuria Tobacco use Home Medications flash glucose sensor (FreeStyle Moncho 2 Sensor kit) #2 ea 04/11/22 [Rx Last Taken Unknown] naproxen 500 mg tablet 500 mg PO DAILY PRN Pain 07/26/22 [History Last Taken 07/22/22] sertraline 100 mg tablet 100 mg PO DAILY depression 07/26/22 [History Last Taken 07/25/22] blood sugar diagnostic (FreeStyle Lite Strips) #100 ea 07/28/22 [Rx Last Taken Unknown] blood sugar diagnostic (FreeStyle Test strips) #100 ea 07/28/22 [Rx Last Taken Unknown] blood-glucose meter (FreeStyle Lite Meter kit) #1 ea 07/28/22 [Rx Last Taken Unknown] lancets 28 gauge (FreeStyle Lancets) #100 ea 07/28/22 [Rx Last Taken Unknown] pen needle, diabetic 32 gauge x 5/32 (BD Ultra-Fine Josefina Pen Needle) #50 ea 07/28/22 [Rx Last Taken Unknown] diazepam 2 mg tablet 2 mg PO TID PRN PRN back pain #10 TABLETS 07/01/23 [Rx Last Taken Unknown] insulin lispro 100 unit/mL subcutaneous pen (Humalog KwikPen (U-100) Insulin) 6 unit (0.06 mL) subcut TID #15 mL 07/05/23 [Rx Last Taken Unknown] insulin lispro 100 unit/mL subcutaneous pen (Humalog KwikPen (U-100) Insulin) 6 unit (0.06 mL) subcut TIDAC #15 mL 07/05/23 [Rx Last Taken Unknown] lisinopril 2.5 mg tablet 2.5 mg PO DAILY blood pressurre #30 tabs 07/05/23 [Rx Last Taken 07/25/22] metformin 1,000 mg tablet 1,000 mg PO BID #60 tabs 07/05/23 [Rx Last Taken Unknown] insulin glargine U-300 conc 300 unit/mL (3 mL) subcutaneous pen (Toujeo Max U- 300 SoloStar) 30 unit (0.1 mL) subcut DAILY #6 mL 07/06/23 [Rx Last Taken Unknown] lancets 28 gauge (FreeStyle Lancets) #100 ea 07/06/23 [Rx Last Taken Unknown] Allergy/AdvReac Type Severity Reaction Status Date / Time No Known Allergies Allergy Verified 07/29/23 12:34 Family History Mother Diabetes Father Diabetes Cancer Hx mesothelioma. Surgical History No history of previous surgery Social History household members: other details: Lives with her son. Her son is also an alcoholic. Smoking Status: Former smoker alcohol intake: current alcohol intake frequency: 3 or more drinks per day details: Reports at least 4 beers daily, not forthcoming with use details. substance use type: does not use ROS ROS ED Constitutional Constitutional ED: Reports chills, sweats and other Details: Feeling cold, but hot and sweaty when the blood sugar is low ; Denies fever(s) Eyes Eyes: Denies change in vision or diplopia ENT ENT ED: Denies rhinorrhea or sore throat Cardiovascular Cardiovascular: Denies chest pain or palpitations Respiratory/Chest Respiratory/Chest: Denies cough or dyspnea Gastrointestinal Gastrointestinal: Denies abdominal pain, diarrhea, nausea or vomiting Genitourinary Genitourinary ED: Denies dysuria or hematuria Musculoskeletal Musculoskeletal: Denies back pain or neck pain Integumentary Denies abscess or rash Neurologic Neurologic: Denies headache(s), paresthesias or weakness Psychiatric Psychiatric: Reports anxiety; Denies suicidal ideation or suicidal thoughts EXAM Physical Exam Const Vital Signs: 07/29/23 12:34 07/29/23 15:19 Temperature 95.9 F L Temperature Source Temporal Pulse Rate 95 93 Respiratory Rate 22 H 16 Blood Pressure 153/94 H 154/87 H Blood Pressure Mean 113 109 Pulse Ox 100 98 Oxygen Delivery Method Room Air Room Air Positive well nourished and well developed General Appearance ED: well developed and NAD HEENT Reports moist mucous membranes normocephalic and atraumatic Eyes PERRL and EOMs intact bilaterally Neck full ROM and supple Resp normal respiratory effort and clear to auscultation bilaterally Cardio regular rate, regular rhythm and no murmurs GI non-tender and non-distended Auscultation: normoactive bowel sounds Palpation: soft Back/Spine no CVA tenderness General Back: other FROM Extremity normal to inspection General Extremety ED: Negative for edema, pulses abnormal or tenderness General Extremity: Negative for edema or pulses abnormal Neuro oriented x3, CN's II-XII intact bilaterally and no sensory deficits noted Neuro Narrative: Normal speech. No dysarthria or aphasia. Nonfocal neurologic exam. Sensorium / Orientation: awake and alert Motor Exam: strength 5/5 throughout Psych mental status grossly normal Skin no rashes or lesions noted and no wounds MDM MDM MDM Narrative Medical decision making narrative: Labs here are unremarkable, suggesting nothing acute with regards to infection, cardiac etiologies, major electrolyte disorder or dehydration. Anion gap is normal, bicarb is normal, therefore ruling out DKA. She was given a liter of fluids we checked her blood sugar multiple times, initially 127 then 106, she was given sandwich to eat and we checked it subsequently . Blood pressure has come down from where it was elevated, she feels better clinically, discussed with her PCP and stable for discharge home. Patient asking for a work note for tomorrow. PCP states alcohol has been an issue for her as has emotional distress due to financial issues. Her son is here to take her home. Lab Data Attestation: I reviewed the patient's lab results. Labs: Laboratory Results - last 24 hr 07/29/23 07/29/23 07/29/23 13:13 13:15 14:45 WBC 6.2 RBC 3.81 L Hgb 11.4 L Hct 36.1 L MCV 94.8 MCH 29.9 MCHC 31.6 L RDW Std Deviation 50.0 H RDW Coeff of Nellie 14.5 Plt Count 295 MPV 12.1 H Immature Gran % (Auto) 0.500 Neut % (Auto) 72.9 H Lymph % (Auto) 19.3 [place] % (Auto) 5.7 Eos % (Auto) 1.1 Baso % (Auto) 0.5 Absolute Neuts (auto) 4.5 Absolute Lymphs (auto) 1.19 Nucleated RBC % 0 Sodium 141 Potassium 4.0 Chloride 108 H Carbon Dioxide 27.0 Anion Gap 6 BUN 18 Creatinine 0.64 Estim Creat Clear Calc 76.36 Est GFR (MDRD) Af Amer 121 Est GFR (MDRD) Non-Af 100 BUN/Creatinine Ratio 28.0 H Glucose 127 H Calcium 9.8 Troponin I High Sens 10 Urine Color Yellow Urine Clarity Clear Urine pH 6.0 Ur Specific [place] 1.020 Urine Protein Negative Urine Glucose (UA) Normal Urine Ketones 50 H Urine Occult Blood Negative Urine Nitrite Negative Urine Bilirubin Negative Urine Urobilinogen Normal Ur Leukocyte Esterase 25 H Urine RBC 0 SEEN Urine WBC 0-5 SEEN Ur Squamous Epith Cells 0 SEEN Urine Bacteria 0 SEEN Urine Mucus 0 SEEN POC Glucose 127 H 07/29/23 15:25 WBC RBC Hgb Hct MCV MCH MCHC RDW Std Deviation RDW Coeff of Nellie Plt Count MPV Immature Gran % (Auto) Neut % (Auto) Lymph % (Auto) [place] % (Auto) Eos % (Auto) Baso % (Auto) Absolute Neuts (auto) Absolute Lymphs (auto) Nucleated RBC % Sodium Potassium Chloride Carbon Dioxide Anion Gap BUN Creatinine Estim Creat Clear Calc Est GFR (MDRD) Af Amer Est GFR (MDRD) Non-Af BUN/Creatinine Ratio Glucose Calcium Troponin I High Sens Urine Color Urine Clarity Urine pH Ur Specific [place] Urine Protein Urine Glucose (UA) Urine Ketones Urine Occult Blood Urine Nitrite Urine Bilirubin Urine Urobilinogen Ur Leukocyte Esterase Urine RBC Urine WBC Ur Squamous Epith Cells Urine Bacteria Urine Mucus POC Glucose 106 Rhythm Strip Rhythm Strip: Sinus Rhythm Rate: 96 Ectopy: None EKG Initial EKG: Attestation: I personally reviewed and interpreted this EKG as follows: Interpretation: Sinus Rhythm and No Acute Injury Pattern Prior EKG tracings: available for review Prior: Unchanged Management Discussion w/another healthcare provider: PCP (Dr. Lamb - Keep insulin doses same for now & f/u) Discharge Plan Triage Chief Complaint: Hyperglycemia Other Complaint: Weakness ED Provider: Reece Galvan Dx/Rx/DC Orders Clinical Impression: Hyperglycemia due to type 1 diabetes mellitus, Type I diabetes mellitus with hypoglycemia Instructions: ED Diabetic Hyperglycemia Prescriptions: No Action (DME) FreeStyle Moncho 2 Sensor Kit See Rx Instructions .Route Qty: 2 5RF Rx Instructions: As directed sertraline 100 mg tablet 100 mg PO DAILY naproxen 500 mg tablet 500 mg PO DAILY PRN (Reason: Pain) (DME) lancets [FreeStyle Lancets] 28 gauge misc See Rx Instructions .Route Qty: 100 0RF Rx Instructions: As directed (DME) FreeStyle Test Strip See Rx Instructions .Route Qty: 100 0RF Rx Instructions: As directed (DME) pen needle, diabetic [BD Ultra-Fine Josefina Pen Needle] 32 gauge x 5/32 needle See Rx Instructions .ROUTE .MEDSUPPLY Qty: 50 5RF Rx Instructions: daily (DME) blood-glucose meter [FreeStyle Lite Meter] Kit See Rx Instructions .Route Qty: 1 0RF Rx Instructions: As directed (DME) FreeStyle Lite Strips Strip See Rx Instructions .Route Qty: 100 0RF Rx Instructions: As directed metformin 1,000 mg tablet 1,000 mg PO BID Qty: 60 2RF lisinopril 2.5 mg tablet 2.5 mg PO DAILY Qty: 30 2RF insulin lispro [Humalog KwikPen Insulin] 100 unit/mL Insulin Pen 6 unit subcut TIDAC Qty: 15 2RF insulin lispro [Humalog KwikPen Insulin] 100 unit/mL insulin pen 6 unit subcut TID Qty: 15 2RF (DME) lancets [FreeStyle Lancets] 28 gauge misc See Rx Instructions .Route Qty: 100 0RF Rx Instructions: As directed Toujeo Max U-300 SoloStar 300 unit/mL (3 mL) insulin pen 30 unit subcut DAILY Qty: 6 2RF diazepam 2 mg tablet 2 mg PO TID PRN PRN (Reason: back pain) Qty: 10 0RF Stand Alone Forms: ED Work / School Excuse Primary Care Provider: Milind Lamb Referrals: Milind Lamb MD [Primary Care Provider] - (call for follow up appt) Disposition Disposition: Home, Self Care
[2023-07-29 14:21] LABS: Absolute Lymphocyte Count 1.19 X10^3/uL (0.83-4.51); Absolute Neutrophil Count 4.5 X10^3/uL (2.0-7.7); Basophil# 0.03 X10^3/uL; Basophil% 0.5 % (0-1); Eosinophil# 0.07 X10^3/uL; Eosinophils% 1.1 % (0-5); Hematocrit 36.1 % (37-47); Hemoglobin 11.4 g/dL (12.0-15.0); Lymphocyte # 1.19 X10^3/ul (0.83-4.51); Lymphocyte % 19.3 % (19-41); Mean Corp Hgb Conc 31.6 g/dL (32-36); Mean Corpuscular Hgb 29.9 pg (27.0-32.0); Mean Corpuscular Volume 94.8 fL (81-99); Mean Platelet Vol. 12.1 fl (6.2-12.0); Monocyte# 0.35 X10^3/uL; Monocyte% 5.7 % (0-10); NRBC Flagged by Analyzer 0 % (0-5); Neutrophil # 4.48 X10^3/uL (2.7-7.7); Neutrophil % 72.9 % (47-70); Platelet Count 295 K/mm3 (150-450); RBC Distribution Width CV 14.5 % (11.6-14.6); Red Blood Count 3.81 M/mm3 (4.2-5.4); White Blood Count 6.2 K/mm3 (4.4-11.0)
[2023-07-29 14:31] LABS: Anion Gap 6 (5-15); BUN 18 mg/dL (7-18); Calcium,Total 9.8 mg/dL (8.5-10.1); Chloride 108 mmol/L (98-107); Creatinine, Serum 0.64 mg/dL (0.55-1.02); EST Glomerular Filtration Rate 100 mL/min (>60); Est Glom Filt Rate - Afr Amer 121 mL/min (>60); Estimated Creatinine Clearance 76.36 ml/min; Glucose 127 mg/dL (74-106); Sodium Level 141 mmol/L (136-145); Troponin-I HS 10 pg/mL (3.0-54.0)
[2023-07-29] MEDS: 0.9% Normal Saline (1000mL) 1,000 ML 1000 ML IV (14:45)
[2023-07-29 14:50] LABS: Bacteria 0 SEEN /hpf (None Seen); Mucous, Urine 0 SEEN /hpf (<or=2+); Red Blood Cells-Urine 0 SEEN /hpf (0-5); Squamous Epithelial Cells - UA 0 SEEN /hpf (5-10)
--- OUTSIDE RECORDS SUMMARY | 2023-07-29 14:55 | XMS RPT_ITS | CCD ---
Author Name Unknown Address [address] [place] [address] Organization [facility] Care Team Providers Care Air Quality Instrument Specialist Name Role Phone [facility] Attending Unavailable PHYSICIAN, NONE Primary Care Unavailable Results Test Name Value Interpretation Reference Range Facil ity Encounters Encounter Date Encounter Type Care Provider Facility Start: 07-22-2018 End: 07-23-2018 Patient encounter procedure [facility] Facility:B Payers Date Payer Category Payer Unknown [id number] 1960 Unknown [id number] Summary Purpose Family History No Family History [...] BE BASED ON THE PRIMARY CLINICAL RECORDS. [employer] [facility]. provides no warranty or guarantee of the accuracy or completeness of information in this document.
[2023-07-29 14:56] LABS: Color, Urine Yellow (Yellow); Glucose, Dipstick Normal (Normal); Ketone-Dipstick 50 mg/dl (Negative); Leukocyte Esterase-Dipstick 25 /ul (Negative); Nitrite-Dipstick Negative (Negative); Occult Blood-Urine Negative /ul (Negative); Protein-Dipstick Negative (Negative); Urine Bilirubin Dipstick Negative (Negative); Urine Clarity Clear (Clear); Urine Urobilinogen Normal (Normal)
[2023-07-29 15:02] LABS: White Blood Cells 0-5 SEEN /hpf (0-5)
[2023-07-29 15:19] VITALS: BP 154/87; PULSE 93; RESP 16; O2SAT 98
[2023-07-29 15:42] LABS: Bedside Glucose 106 mg/dL (74-106)
[2023-07-29 16:28] VITALS: BP 150/80; PULSE 99; RESP 23; O2SAT 98
[2023-07-29 16:34] LABS: Bedside Glucose 212 mg/dL (74-106)
== END 2023-07-29 16:38 | disposition home or self-care (01) ==
PROVIDERS: Emergency Provider Emergency Medicine; PCP Family Medicine; Visit Provider Emergency Medicine
DX: E10.65 Type 1 diabetes mellitus with hyperglycemia (principal); E10.649 Type 1 diabetes mellitus with hypoglycemia without coma; Z87.891 Personal history of nicotine dependence; Z86.16 Personal history of COVID-19
CPT/HCPCS: 80048; 81001; 82962; 84484; 85025; 93005; 96360; 99283; J7030

== ENCOUNTER 2024-03-01 06:05 | Inpatient (IN) | payer SELFPAY ==
[2024-03-01] VITALS (8 sets, daily range): BP systolic 133–179; BP diastolic 64–80; PULSE 79–112; RESP 16–22; TEMP 36–36.6; O2SAT 98–100; BMI 20.7; BMI 20.8
[2024-03-01] MEDS: 0.9% Normal Saline (1000mL) 1,000 ML 1000 ML IV (07:14)
[2024-03-01] MEDS: HYDROcodone Bitartrate/Apap 5/325 Tablet PO (07:14)
--- NOTE | 2024-03-01 07:18 | EX.ED.DYSGE1 ---
HPI History of Present Illness Chief Complaint: Hyperglycemia Detail of Chief Complaint: Patient presents because of hyperglycemia and left lower back pain Informant: patient and family (Granddaughter) Onset/Context/Timing Onset: Days (Back pain started Friday, blood sugars been elevated past several days) Context: Sudden Onset Timing: Continuous and Waxes and wanes Quality: Pain, blood sugar greater than 600 Location: Left lower back and history of diabetes Current Severity: Mild Maximum Severity: Moderate Worsened by: Back pain is worse with movement, blood sugar elevation uncertain cause Relieved by: Nothing for either Associated Symptoms Associated Symptoms: Polydipsia, polyuria, nocturia, thirst and dry mouth Narrative Narrative: Patient is a 63-year-old woman. She has type 2 diabetes on insulin. She also has history of hypertension. She denies history of kidney disease. 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 Her pain started on Friday. The pain is left lower back. Denies bowel bladder dysfunction. Denies radicular pain. She knows saddle paresthesia anesthesia. She has no neuro or motor deficit complaints. She denies prior history of back problems. Patient does endorse polyuria, polydipsia, nocturia, thirst and dry mouth. She states she is compliant with her medication and diet. She has had no constitutional symptoms of fever, chills night sweats. She denies rhinorrhea, congestion, postnasal drainage sore throat. She denies cough or shortness of breath. She denies dysuria, hematuria or urgency. She does have frequency. The frequency may be due to the fact that her blood sugars have been elevated. She has not noted a rash. She denies headache, visual, ocular auditory symptoms. Prior similar symptoms: Yes (With with respect to the blood sugar control not the back pain) Recent Illness/Hospitalization: No PFSH [facility] Medical History Diabetic ketoacidosis associated with type 1 diabetes mellitus Pyuria Back pain Diabetes Hypokalemia Tobacco use Anxiety and depression ETOH abuse GERD (gastroesophageal reflux disease) HTN (hypertension) Diabetes mellitus, type 2 History of alcoholism COVID-19 Home Medications ?Medication ?Instructions ?Recorded ?Last Taken ?Type flash glucose sensor (FreeStyle #2 ea 04/11/22 Unknown Rx Moncho 2 Sensor kit) blood sugar diagnostic (FreeStyle #100 ea 07/28/22 Unknown Rx Lite Strips) blood sugar diagnostic (FreeStyle #100 ea 07/28/22 Unknown Rx Test strips) blood-glucose meter (FreeStyle #1 ea 07/28/22 Unknown Rx Lite Meter kit) lancets 28 gauge (FreeStyle #100 ea 07/28/22 Unknown Rx Lancets) pen needle, diabetic 32 gauge x #50 ea 07/28/22 Unknown Rx 5/32 (BD Ultra-Fine Josefina Pen Needle) insulin lispro 100 unit/mL 6 unit (0.06 mL) subcut TIDAC #15 07/05/23 Unknown Rx subcutaneous pen (Humalog KwikPen mL (U-100) Insulin) metformin 1,000 mg tablet 1,000 mg PO BID #60 tabs 07/05/23 Unknown Rx lancets 28 gauge (FreeStyle #100 ea 07/06/23 Unknown Rx Lancets) insulin glargine U-300 conc 300 30 unit subcut QHS 03/01/24 Unknown History unit/mL (3 mL) subcutaneous pen (Toujeo Max U-300 SoloStar) lisinopril 2.5 mg tablet 5 mg PO DAILY blood pressurre 03/01/24 Unknown History Allergy/AdvReac Type Severity Reaction Status Date / Time No Known Allergies Allergy Verified 03/01/24 06:08 Family History Mother Diabetes Father Diabetes Cancer Hx mesothelioma. Surgical History No history of previous surgery Social History household members: other details: Lives with her son. Her son is also an alcoholic. Smoking Status: Former smoker alcohol intake: current alcohol intake frequency: 3 or more drinks per day details: Reports at least 4 beers daily, not forthcoming with use details. substance use type: does not use ROS ROS ED Constitutional Constitutional ED: Denies chills, fever(s), subjective or sweats Eyes Eyes: Denies blurry vision, change in vision or diplopia ENT ENT ED: Denies ear pain, rhinorrhea or sore throat Cardiovascular Cardiovascular: Denies chest pain, palpitations or racing heartbeat Respiratory/Chest Respiratory/Chest: Denies cough, dyspnea or dyspnea on exertion Gastrointestinal Gastrointestinal: Denies abdominal pain, nausea or vomiting Genitourinary Genitourinary ED: Reports urinary frequency; Denies dysuria Musculoskeletal Musculoskeletal: Reports back pain; Denies arthralgias, myalgias or neck pain Integumentary Denies Abrasions or rash Neurologic Neurologic: Denies headache(s), paresthesias or weakness Psychiatric Psychiatric: Denies anxiety or depression Endocrine Endocrinology: Reports polydipsia and polyuria; Denies cold intolerance, heat intolerance or polyphagia Hematologic/Lymphatic Hematologic/Lymphatic: Reports systems reviewed and no addt'l complaints, except as documented EXAM Physical Exam Const Vital Signs: 03/01/24 06:06 03/01/24 06:10 03/01/24 08:06 Temperature 97.9 F Temperature Source Temporal Pulse Rate 112 H 103 H Respiratory Rate 22 H 19 H Respiratory Effort Normal Non-Labored Respiratory Pattern Normal Blood Pressure 179/77 H 176/80 H Blood Pressure Mean 111 112 Pulse Ox 99 99 Oxygen Delivery Method Room Air Room Air 03/01/24 10:00 Temperature Temperature Source Pulse Rate 89 Respiratory Rate 18 Respiratory Effort Respiratory Pattern Blood Pressure 148/79 H Blood Pressure Mean 102 Pulse Ox 99 Oxygen Delivery Method Room Air Positive well nourished and well developed Constitutional Narrative: Patient does not appear well. She grimaces with movement. General Appearance ED: well developed; Negative for NAD or pallor HEENT Reports dry mucous membranes HEENT Narrative: Head is atraumatic no cephalic. Ears normal. Nares patent. Posterior pharynx out erythema or exudate. Mouth ED: Yes dry mucous membranes Mouth: dry mucous membranes Eyes PERRL and EOMs intact bilaterally General Eye ED: Negative for pale conjunctiva or scleral icterus Neck no lymphadenopathy, supple and no JVD Chest Wall inspection of chest normal and palpation of chest normal Resp normal respiratory effort and clear to auscultation bilaterally Cardio regular rhythm, S1 normal heart sound, S2 normal heart sound and no murmurs Rate: tachycardic GI normal to inspection, nondistended, normoactive bowel sounds, non-tender, non-distended and no masses; Negative for hepatosplenomegaly Back/Spine no CVA tenderness Back/Spine Narrative: There is left paralumbar pain to palpation. There is no midline tenderness over the lumbar spinous process or the pelvis. Extremity normal to inspection Neuro oriented x3, CN's II-XII intact bilaterally and no sensory deficits noted Neuro Narrative: She is awake but not alert. Straight leg test is negative right and left. Patella and equal reflex are 1+. EHLs intact. Normal sensation L3-S1 dermatome. 5/5 strength with plantar flexion and dorsiflexion of the foot. DP and PT pulse are palpable. Patient does have reproducible left lower back pain. There is no bruising noted or evidence of trauma. Sensorium / Orientation: Negative for alert Motor Exam: strength 5/5 throughout Psych mental status grossly normal Skin no rashes or lesions noted, no wounds and skin turgor normal General Skin Exam: Negative for jaundice or pallor MDM MDM MDM Narrative Medical decision making narrative: Patient is tachycardic and clinically dehydrated. 1 L of normal saline was ordered wide open. Will assess blood sugars, CO2 anion gap and electrolytes. Will assess urine for infection. Since she has no respiratory symptoms and no oscillatory findings x-ray was not obtained. Her back pain was treated with [place]. Her back pain is consistent with musculoskeletal and not consistent with a epidural hematoma or abscess. There is no concern for cauda equina. Patient's back pain is not consistent with a herniated disc either. Lab Data Attestation: I reviewed the patient's lab results. Lab results narrative: Coverage metabolic panel reveals mild hyponatremia. CO2 was 11 with an anion gap 20. Patient has a blood sugar of 419. Creatinine is 1.14.Most recent creatinine is 0.64 on July 29, 2023. Urinalysis is remarkable for some gravity 1.020, protein, glucose, ketones and occult blood. Negative nitrites and leukoesterase. BMP is remarkable for glucose of 328 on repeat with a CO2 of 10 and anion gap of 18. Serum ketones are positive. Labs: Laboratory Results - last 24 hr 03/01/24 03/01/24 03/01/24 07:11 07:30 08:25 WBC 6.3 RBC 4.33 Hgb 12.9 Hct 38.6 MCV 89.1 MCH 29.8 MCHC 33.4 RDW Std Deviation 41.5 RDW Coeff of Nellie 12.6 Plt Count MPV 12.3 H Immature Gran % (Auto) 1.600 H Neut % (Auto) 64.7 Lymph % (Auto) 25.7 [place] % (Auto) 6.0 Eos % (Auto) 1.0 Baso % (Auto) 1.0 Absolute Neuts (auto) 4.1 Absolute Lymphs (auto) 1.62 Nucleated RBC % 0 Platelet Estimate ADEQUATE Sodium 135 L Potassium 4.0 Chloride 104 Carbon Dioxide 11.0 L Anion Gap 20 H BUN 11 Creatinine 1.14 H Estim Creat Clear Calc 42.87 Est GFR (MDRD) Af Amer 62 Est GFR (MDRD) Non-Af 51 L BUN/Creatinine Ratio 9.6 L Glucose 419 H Lactic Acid 0.7 Calcium 9.3 Total Bilirubin 0.50 AST 11 L ALT 16 Alkaline Phosphatase 115 Troponin I High Sens 6 Total Protein 8.2 Albumin 4.1 Globulin 4.1 Albumin/Globulin Ratio 1.0 Urine Color Straw Urine Clarity Clear Urine pH 6.0 Ur Specific [place] 1.020 Urine Protein 100 H Urine Glucose (UA) 1000 H Urine Ketones 150 A* Urine Occult Blood 10 H Urine Nitrite Negative Urine Bilirubin Negative Urine Urobilinogen Normal Ur Leukocyte Esterase Negative Urine RBC 0 SEEN Urine WBC 0 SEEN Ur Squamous Epith Cells 0 SEEN Urine Bacteria 0 SEEN Urine Mucus 0 SEEN Acetone Level POC Glucose 343 H 03/01/24 03/01/24 03/01/24 08:45 09:01 09:25 WBC RBC Hgb Hct MCV MCH MCHC RDW Std Deviation RDW Coeff of Nellie Plt Count MPV Immature Gran % (Auto) Neut % (Auto) Lymph % (Auto) [place] % (Auto) Eos % (Auto) Baso % (Auto) Absolute Neuts (auto) Absolute Lymphs (auto) Nucleated RBC % Platelet Estimate Sodium 138 Potassium 3.7 Chloride 110 H Carbon Dioxide 10.0 L Anion Gap 18 H BUN 11 Creatinine 0.98 Estim Creat Clear Calc 49.87 Est GFR (MDRD) Af Amer 74 Est GFR (MDRD) Non-Af 62 BUN/Creatinine Ratio 11.3 Glucose 328 H Lactic Acid Calcium 8.2 L Total Bilirubin AST ALT Alkaline Phosphatase Troponin I High Sens Total Protein Albumin Globulin Albumin/Globulin Ratio Urine Color Urine Clarity Urine pH Ur Specific [place] Urine Protein Urine Glucose (UA) Urine Ketones Urine Occult Blood Urine Nitrite Urine Bilirubin Urine Urobilinogen Ur Leukocyte Esterase Urine RBC Urine WBC Ur Squamous Epith Cells Urine Bacteria Urine Mucus Acetone Level SMALL H POC Glucose 243 H 03/01/24 10:21 WBC RBC Hgb Hct MCV MCH MCHC RDW Std Deviation RDW Coeff of Nellie Plt Count MPV Immature Gran % (Auto) Neut % (Auto) Lymph % (Auto) [place] % (Auto) Eos % (Auto) Baso % (Auto) Absolute Neuts (auto) Absolute Lymphs (auto) Nucleated RBC % Platelet Estimate Sodium Potassium Chloride Carbon Dioxide Anion Gap BUN Creatinine Estim Creat Clear Calc Est GFR (MDRD) Af Amer Est GFR (MDRD) Non-Af BUN/Creatinine Ratio Glucose Lactic Acid Calcium Total Bilirubin AST ALT Alkaline Phosphatase Troponin I High Sens Total Protein Albumin Globulin Albumin/Globulin Ratio Urine Color Urine Clarity Urine pH Ur Specific [place] Urine Protein Urine Glucose (UA) Urine Ketones Urine Occult Blood Urine Nitrite Urine Bilirubin Urine Urobilinogen Ur Leukocyte Esterase Urine RBC Urine WBC Ur Squamous Epith Cells Urine Bacteria Urine Mucus Acetone Level POC Glucose 241 H EKG Initial EKG: Attestation: I personally reviewed and interpreted this EKG as follows: Interpretation: Sinus Tachycardia (Rate is 104. The EKG is normal other than sinus tachycardia. NM interval is 104 ms. Cures duration 86 ms. QT duration 162 ms. [place] is normal. 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
[2024-03-01 07:20] LABS: Absolute Lymphocyte Count 1.62 X10^3/uL (0.83-4.51); Absolute Neutrophil Count 4.1 X10^3/uL (2.0-7.7); Basophil# 0.06 X10^3/uL; Eosinophil# 0.06 X10^3/uL; Hematocrit 38.6 % (37-47); Hemoglobin 12.9 g/dL (12.0-15.0); Lymphocyte # 1.62 X10^3/ul (0.83-4.51); Lymphocyte % 25.7 % (19-41); Mean Corp Hgb Conc 33.4 g/dL (32-36); Mean Corpuscular Hgb 29.8 pg (27.0-32.0); Mean Corpuscular Volume 89.1 fL (81-99); Mean Platelet Vol. 12.3 fl (6.2-12.0); Monocyte# 0.38 X10^3/uL; NRBC Flagged by Analyzer 0 % (0-5); Neutrophil # 4.08 X10^3/uL (2.7-7.7); Neutrophil % 64.7 % (47-70); POSITIVE COUNT YES; RBC Distribution Width CV 12.6 % (11.6-14.6); RBC Distribution Width SD 41.5 fl (35.1-43.9); Red Blood Count 4.33 M/mm3 (4.2-5.4); White Blood Count 6.3 K/mm3 (4.4-11.0)
[2024-03-01 07:35] LABS: Bacteria 0 SEEN /hpf (None Seen); Mucous, Urine 0 SEEN /hpf (<or=2+); Red Blood Cells-Urine 0 SEEN /hpf (0-5); Squamous Epithelial Cells - UA 0 SEEN /hpf (5-10); White Blood Cells 0 SEEN /hpf (0-5)
[2024-03-01 07:40] LABS: Color, Urine Straw (Yellow); Glucose, Dipstick 1000 mg/dl (Normal); Leukocyte Esterase-Dipstick Negative /ul (Negative); Nitrite-Dipstick Negative (Negative); Occult Blood-Urine 10 /ul (Negative); Protein-Dipstick 100 mg/dl (Negative); Urine Bilirubin Dipstick Negative (Negative); Urine Clarity Clear (Clear); Urine Urobilinogen Normal (Normal)
[2024-03-01 07:43] LABS: Lactic Acid 0.7 mmol/L (0.4-1.9)
[2024-03-01 07:50] LABS: AST(SGOT) 11 U/L (15-37); Alanine Aminotransfer ALT/SGPT 16 U/L (13-56); Albumin, Serum 4.1 g/dL (3.2-5.0); Alkaline Phosphatase 115 U/L (45-117); Anion Gap 20 (5-15); BUN 11 mg/dL (7-18); BUN/Creat Ratio 9.6 RATIO (10-20); Calcium,Total 9.3 mg/dL (8.5-10.1); Chloride 104 mmol/L (98-107); Creatinine, Serum 1.14 mg/dL (0.55-1.02); EST Glomerular Filtration Rate 51 mL/min (>60); Est Glom Filt Rate - Afr Amer 62 mL/min (>60); Estimated Creatinine Clearance 42.87 ml/min; Globulin 4.1 g/dL (2.2-4.2); Glucose 419 mg/dL (74-106); Protein, Total 8.2 g/dL (6.4-8.2); Sodium Level 135 mmol/L (136-145)
--- NOTE | 2024-03-01 08:07 | EKG12_ITS ---
Test Reason : DKA Blood Pressure : / mmHG Vent. Rate : 104 BPM Atrial Rate : 104 BPM P-R Int : 154 ms QRS Dur : 086 ms QT Int : 362 ms P-R-T Axes : 065 031 036 degrees QTc Int : 476 ms Sinus tachycardia Otherwise normal ECG Confirmed by Angelo Dumont ([id number]), editor dictionary JIMMY MEADE ([id number]) on 03/05/2024 6:38:00 AM Referred By: Confirmed By:Angelo Dumont
[2024-03-01 08:08] LABS: Ketone-Dipstick 150 mg/dl (Negative)
[2024-03-01] MEDS: Morphine 2 MG/ML Syringe IV ×4 (08:27→22:25)
[2024-03-01] MEDS: Insulin Lispro 100 UNIT in 0.9% Normal Saline (100mL Bag) 99 ML 5.3 UNIT CONT INF (08:31)
[2024-03-01] MEDS: 0.9% Normal Saline (1000mL) 1,000 ML 999 ML IV (08:32)
[2024-03-01 08:52] LABS: Bedside Glucose 343 mg/dL (74-106)
[2024-03-01 09:09] LABS: Differential Indicated SCAN CRITERIA MET; Platelet Estimate ADEQUATE (ADEQ)
[2024-03-01 09:13] LABS: Troponin-I HS 6 pg/mL (3.0-54.0)
[2024-03-01 09:22] LABS: Anion Gap 18 (5-15); BUN 11 mg/dL (7-18); BUN/Creat Ratio 11.3 RATIO (10-20); Calcium,Total 8.2 mg/dL (8.5-10.1); Chloride 110 mmol/L (98-107); Creatinine, Serum 0.98 mg/dL (0.55-1.02); EST Glomerular Filtration Rate 62 mL/min (>60); Est Glom Filt Rate - Afr Amer 74 mL/min (>60); Estimated Creatinine Clearance 49.87 ml/min; Glucose 328 mg/dL (74-106); Potassium 3.7 mmol/L (3.5-5.1); Sodium Level 138 mmol/L (136-145)
[2024-03-01 09:44] LABS: Bedside Glucose 243 mg/dL (74-106)
[2024-03-01 10:40] LABS: Bedside Glucose 241 mg/dL (74-106)
--- NOTE | 2024-03-01 11:17 | EDS_ITS ---
HPI History of Present Illness Chief Complaint: Hyperglycemia [facility] Medical History Diabetic ketoacidosis associated with type 1 diabetes mellitus Pyuria Back pain Diabetes Hypokalemia Tobacco use Anxiety and depression ETOH abuse GERD (gastroesophageal reflux disease) HTN (hypertension) Diabetes mellitus, type 2 History of alcoholism COVID-19 Home Medications ?Medication ?Instructions ?Recorded ?Last Taken ?Type flash glucose sensor (FreeStyle #2 ea 04/11/22 Unknown Rx Moncho 2 Sensor kit) blood sugar diagnostic (FreeStyle #100 ea 07/28/22 Unknown Rx Lite Strips) blood sugar diagnostic (FreeStyle #100 ea 07/28/22 Unknown Rx Test strips) blood-glucose meter (FreeStyle #1 ea 07/28/22 Unknown Rx Lite Meter kit) lancets 28 gauge (FreeStyle #100 ea 07/28/22 Unknown Rx Lancets) pen needle, diabetic 32 gauge x #50 ea 07/28/22 Unknown Rx 5/32 (BD Ultra-Fine Josefina Pen Needle) insulin lispro 100 unit/mL 6 unit (0.06 mL) subcut TIDAC #15 07/05/23 Unknown Rx subcutaneous pen (Humalog KwikPen mL (U-100) Insulin) metformin 1,000 mg tablet 1,000 mg PO BID #60 tabs 07/05/23 Unknown Rx lancets 28 gauge (FreeStyle #100 ea 07/06/23 Unknown Rx Lancets) insulin glargine U-300 conc 300 30 unit subcut QHS 03/01/24 Unknown History unit/mL (3 mL) subcutaneous pen (Toujeo Max U-300 SoloStar) lisinopril 2.5 mg tablet 5 mg PO DAILY blood pressurre 03/01/24 Unknown History Allergy/AdvReac Type Severity Reaction Status Date / Time No Known Allergies Allergy Verified 03/01/24 06:08 Family History Mother Diabetes Father Diabetes Cancer Hx mesothelioma. Surgical History No history of previous surgery Social History household members: other details: Lives with her son. Her son is also an alcoholic. Smoking Status: Former smoker alcohol intake: current alcohol intake frequency: 3 or more drinks per day details: Reports at least 4 beers daily, not forthcoming with use details. substance use type: does not use EXAM Physical Exam Const Vital Signs: 03/01/24 06:06 03/01/24 06:10 03/01/24 08:06 Temperature 97.9 F Temperature Source Temporal Pulse Rate 112 H 103 H Respiratory Rate 22 H 19 H Respiratory Effort Normal Non-Labored Respiratory Pattern Normal Blood Pressure 179/77 H 176/80 H Blood Pressure Mean 111 112 Pulse Ox 99 99 Oxygen Delivery Method Room Air Room Air 03/01/24 10:00 Temperature Temperature Source Pulse Rate 89 Respiratory Rate 18 Respiratory Effort Respiratory Pattern Blood Pressure 148/79 H Blood Pressure Mean 102 Pulse Ox 99 Oxygen Delivery Method Room Air MDM MDM Lab Data Attestation: I reviewed the patient's lab results. Lab results narrative: CBC is unremarkable. Labs: Laboratory Results - last 24 hr 03/01/24 03/01/24 03/01/24 07:11 07:30 08:25 WBC 6.3 RBC 4.33 Hgb 12.9 Hct 38.6 MCV 89.1 MCH 29.8 MCHC 33.4 RDW Std Deviation 41.5 RDW Coeff of Nellie 12.6 Plt Count MPV 12.3 H Immature Gran % (Auto) 1.600 H Neut % (Auto) 64.7 Lymph % (Auto) 25.7 [place] % (Auto) 6.0 Eos % (Auto) 1.0 Baso % (Auto) 1.0 Absolute Neuts (auto) 4.1 Absolute Lymphs (auto) 1.62 Nucleated RBC % 0 Platelet Estimate ADEQUATE Sodium 135 L Potassium 4.0 Chloride 104 Carbon Dioxide 11.0 L Anion Gap 20 H BUN 11 Creatinine 1.14 H Estim Creat Clear Calc 42.87 Est GFR (MDRD) Af Amer 62 Est GFR (MDRD) Non-Af 51 L BUN/Creatinine Ratio 9.6 L Glucose 419 H Lactic Acid 0.7 Calcium 9.3 Total Bilirubin 0.50 AST 11 L ALT 16 Alkaline Phosphatase 115 Troponin I High Sens 6 Total Protein 8.2 Albumin 4.1 Globulin 4.1 Albumin/Globulin Ratio 1.0 Urine Color Straw Urine Clarity Clear Urine pH 6.0 Ur Specific [place] 1.020 Urine Protein 100 H Urine Glucose (UA) 1000 H Urine Ketones 150 A* Urine Occult Blood 10 H Urine Nitrite Negative Urine Bilirubin Negative Urine Urobilinogen Normal Ur Leukocyte Esterase Negative Urine RBC 0 SEEN Urine WBC 0 SEEN Ur Squamous Epith Cells 0 SEEN Urine Bacteria 0 SEEN Urine Mucus 0 SEEN Acetone Level POC Glucose 343 H 03/01/24 03/01/24 03/01/24 08:45 09:01 09:25 WBC RBC Hgb Hct MCV MCH MCHC RDW Std Deviation RDW Coeff of Nellie Plt Count MPV Immature Gran % (Auto) Neut % (Auto) Lymph % (Auto) [place] % (Auto) Eos % (Auto) Baso % (Auto) Absolute Neuts (auto) Absolute Lymphs (auto) Nucleated RBC % Platelet Estimate Sodium 138 Potassium 3.7 Chloride 110 H Carbon Dioxide 10.0 L Anion Gap 18 H BUN 11 Creatinine 0.98 Estim Creat Clear Calc 49.87 Est GFR (MDRD) Af Amer 74 Est GFR (MDRD) Non-Af 62 BUN/Creatinine Ratio 11.3 Glucose 328 H Lactic Acid Calcium 8.2 L Total Bilirubin AST ALT Alkaline Phosphatase Troponin I High Sens Total Protein Albumin Globulin Albumin/Globulin Ratio Urine Color Urine Clarity Urine pH Ur Specific [place] Urine Protein Urine Glucose (UA) Urine Ketones Urine Occult Blood Urine Nitrite Urine Bilirubin Urine Urobilinogen Ur Leukocyte Esterase Urine RBC Urine WBC Ur Squamous Epith Cells Urine Bacteria Urine Mucus Acetone Level SMALL H POC Glucose 243 H 03/01/24 10:21 WBC RBC Hgb Hct MCV MCH MCHC RDW Std Deviation RDW Coeff of Nellie Plt Count MPV Immature Gran % (Auto) Neut % (Auto) Lymph % (Auto) [place] % (Auto) Eos % (Auto) Baso % (Auto) Absolute Neuts (auto) Absolute Lymphs (auto) Nucleated RBC % Platelet Estimate Sodium Potassium Chloride Carbon Dioxide Anion Gap BUN Creatinine Estim Creat Clear Calc Est GFR (MDRD) Af Amer Est GFR (MDRD) Non-Af BUN/Creatinine Ratio Glucose Lactic Acid Calcium Total Bilirubin AST ALT Alkaline Phosphatase Troponin I High Sens Total Protein Albumin Globulin Albumin/Globulin Ratio Urine Color Urine Clarity Urine pH Ur Specific [place] Urine Protein Urine Glucose (UA) Urine Ketones Urine Occult Blood Urine Nitrite Urine Bilirubin Urine Urobilinogen Ur Leukocyte Esterase Urine RBC Urine WBC Ur Squamous Epith Cells Urine Bacteria Urine Mucus Acetone Level POC Glucose 241 H Discharge Plan Dx/Rx/DC Orders Clinical Impression: Diabetic ketoacidosis associated with type 2 diabetes mellitus, BRITTNI (acute kidney injury), 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
[2024-03-01 12:20] LABS: Bedside Glucose 210 mg/dL (74-106)
[2024-03-01] MEDS: 0.9% Normal Saline (1000mL) 1,000 ML 150 ML IV (13:57)
[2024-03-01 14:21] LABS: Bedside Glucose 148 mg/dL (74-106)
[2024-03-01 14:35] LABS: Anion Gap 14 (5-15); BUN 9 mg/dL (7-18); Calcium,Total 8.6 mg/dL (8.5-10.1); Chloride 112 mmol/L (98-107); EST Glomerular Filtration Rate 67 mL/min (>60); Est Glom Filt Rate - Afr Amer 82 mL/min (>60); Glucose 191 mg/dL (74-106); Potassium 3.5 mmol/L (3.5-5.1); Sodium Level 137 mmol/L (136-145)
--- NOTE | 2024-03-01 17:08 | HP.PCM.HOS_ITS ---
HPI - General General Date of Admission: 03/01/24 HPI Narrative ROBERT BRUCE, is a 63 F who presents to the hospital with dehydration and DKA. She has a history of type 2 diabetes and states that she has been taking her insulin appropriately however over the last 2 or 3 days she has had a decrease in appetite and has been feeling more dehydrated. Her blood sugars were climbing and she started developing back pain which happened the last time she had DKA. She has no significant abdominal pain and no significant pain on palpation. In the ER she was found to have a blood sugar of 419 and was given a dose of insulin and this corrected to 241 at the time of my evaluation. She was admitted to PCU despite having extensive ketones because her blood sugar was so low that her insulin drip would be very low-dose. She denies any recent sick contacts and there is no obvious cause for her DKA at this time. [facility] Medical History Diabetic ketoacidosis associated with type 1 diabetes mellitus Pyuria Back pain Diabetes Hypokalemia Tobacco use Anxiety and depression ETOH abuse GERD (gastroesophageal reflux disease) HTN (hypertension) Diabetes mellitus, type 2 History of alcoholism COVID-19 Home Medications ?Medication ?Instructions ?Recorded ?Last Taken ?Type flash glucose sensor (FreeStyle #2 ea 04/11/22 Unknown Rx Moncho 2 Sensor kit) blood sugar diagnostic (FreeStyle #100 ea 07/28/22 Unknown Rx Lite Strips) blood sugar diagnostic (FreeStyle #100 ea 07/28/22 Unknown Rx Test strips) blood-glucose meter (FreeStyle #1 ea 07/28/22 Unknown Rx Lite Meter kit) lancets 28 gauge (FreeStyle #100 ea 07/28/22 Unknown Rx Lancets) pen needle, diabetic 32 gauge x #50 ea 07/28/22 Unknown Rx 32 (BD Ultra-Fine Josefina Pen Needle) insulin lispro 100 unit/mL 6 unit (0.06 mL) subcut TIDAC #15 07/05/23 02/29/24 Rx subcutaneous pen (Humalog KwikPen mL (U-100) Insulin) metformin 1,000 mg tablet 1,000 mg PO BID diabetes #60 tabs 07/05/23 02/29/24 Rx lancets 28 gauge (FreeStyle #100 ea 07/06/23 Unknown Rx Lancets) insulin glargine U-300 conc 300 30 unit subcut QHS blood sugar 03/01/24 02/29/24 History unit/mL (3 mL) subcutaneous pen (Toujeo Max U-300 SoloStar) lisinopril 2.5 mg tablet 5 mg PO DAILY blood pressurre 03/01/24 02/29/24 History Allergy/AdvReac Type Severity Reaction Status Date / Time No Known Allergies Allergy Verified 03/01/24 06:08 Family History Mother Diabetes Father Diabetes Cancer Hx mesothelioma. Surgical History (Updated 03/01/24 @ 17:[address] Harry Medrano MD) Status post tubal ligation Social History (Updated 03/01/24 @ 13:32 by Danette Alicea) household members: other details: Lives with her son. Her son is also an alcoholic. Smoking Status: Former smoker alcohol intake: former details: maybe drinks a glass of wine a day, but does not drink alcohol anymore substance use type: does not use ROS Constitutional Constitutional: Reports fatigue and weakness; Denies chills, fever(s) or malaise Eyes Eyes: Denies blurry vision ENT HEENT: Denies headache(s) or nasal discharge Cardiovascular Cardiovascular: Denies chest pain, dyspnea on exertion or syncope Respiratory/Chest Respiratory/Chest: Denies cough, shortness of breath at rest or shortness of breath with exertion Gastrointestinal Gastrointestinal: Denies constipation, diarrhea, nausea or vomiting Genitourinary Genitourinary: Denies dysuria Musculoskeletal Musculoskeletal: Reports back pain Neurologic Neurologic: Denies focal weakness, numbness or tremor(s) Psychiatric Psychiatric: Denies anxiety or depression Endocrine Endocrinology: Reports polydipsia Vital Signs Vital Signs Vital Signs: 03/01/24 06:06 03/01/24 06:10 03/01/24 08:06 Temperature 97.9 F Temperature Source Temporal Pulse Rate 112 H 103 H Respiratory Rate 22 H 19 H Respiratory Effort Normal Non-Labored Respiratory Pattern Normal Blood Pressure 179/77 H 176/80 H Blood Pressure Mean 111 112 Blood Pressure Source Blood Pressure Position Blood Pressure Location Pulse Ox 99 99 Oxygen Delivery Method Room Air Room Air 03/01/24 10:00 03/01/24 12:00 03/01/24 12:19 Temperature 97.9 F Temperature Source Pulse Rate 89 88 88 Respiratory Rate 18 17 17 Respiratory Effort Respiratory Pattern Blood Pressure 148/79 H 133/73 H 133/73 H Blood Pressure Mean 102 93 93 Blood Pressure Source Blood Pressure Position Blood Pressure Location Pulse Ox 99 99 99 Oxygen Delivery Method Room Air Room Air 03/01/24 13:22 Temperature 97.9 F Temperature Source Oral Pulse Rate 79 Respiratory Rate 16 Respiratory Effort Respiratory Pattern Blood Pressure 140/74 H Blood Pressure Mean 96 Blood Pressure Source Monitor Blood Pressure Position Semi-Fowlers Blood Pressure Location Left Arm Pulse Ox 100 Oxygen Delivery Method Room Air Weight Weight: 117 lb 8.102 oz Body Mass Index (BMI) 20.8 Physical Exam Narrative General: Alert, Oriented x3, Cooperative, No apparent distress HEENT: Atraumatic, PERRLA, EOMI, Normocephalic Oral: Dry mucosa Neck: Supple, No JVD Lungs: Clear to auscultation, Normal air movement, No rhonchi, No wheeze, No rales Cardiovascular: Regular rate, Regular Rhythm, Normal S1, Normal S2, No murmurs Abdomen: Soft, Non Tender, Non-Distended, No Hepato-splenomegaly Extremities: No edema, Capillary Refill Less than 3 Seconds Skin: No rashes, No breakdown Musculoskeletal: No Tenderness to Palpation of Joints or Extremities Neurological: No focal neurological deficits, Motor Exam 5/5 strength throughout, Sensory exam intact to light touch and pain Psych/Mental Status: Normal Affect, Appropriate Results Lab / Micro Data 03/01/24 07:11 03/01/24 13:17 Labs: Laboratory Results - last 24 hr 03/01/24 07:11: WBC 6.3, RBC 4.33, Hgb 12.9, Hct 38.6, MCV 89.1, MCH 29.8, MCHC 33.4, RDW Std Deviation 41.5, RDW Coeff of Nellie 12.6, Plt Count , MPV 12.3 H, I mmature Gran % (Auto) 1.600 H, Neut % (Auto) 64.7, Lymph % (Auto) 25.7, [place] % (Auto) 6.0, Eos % (Auto) 1.0, Baso % (Auto) 1.0, Absolute Neuts (auto) 4.1, Absolute Lymphs (auto) 1.62, Nucleated RBC % 0, Platelet Estimate ADEQUATE, S odium 135 L, Potassium 4.0, Chloride 104, Carbon Dioxide 11.0 L, Anion Gap 20 H, BUN 11, Creatinine 1.14 H, Estim Creat Clear Calc 42.87, Est GFR (MDRD) Af Amer 62, Est GFR (MDRD) Non-Af 51 L, BUN/Creatinine Ratio 9.6 L, Glucose 419 H, Lactic Acid 0.7, Calcium 9.3, Total Bilirubin 0.50, AST 11 L, ALT 16, Alkaline Phosphatase 115, Troponin I High Sens 6, Total Protein 8.2, Albumin 4.1, Globulin 4.1, Albumin/Globulin Ratio 1.0 03/01/24 07:30: Urine Color Straw, Urine Clarity Clear, Urine pH 6.0, Ur Specific [place] 1.020, Urine Protein 100 H, Urine Glucose (UA) 1000 H, Urine Ketones 150 A*, Urine Occult Blood 10 H, Urine Nitrite Negative, Urine Bilirubin Negative, Urine Urobilinogen Normal, Ur Leukocyte Esterase Negative, Urine RBC 0 SEEN, Urine WBC 0 SEEN, Ur Squamous Epith Cells 0 SEEN, Urine Bacteria 0 SEEN, Urine Mucus 0 SEEN 03/01/24 08:25: POC Glucose 343 H 03/01/24 08:45: Acetone Level SMALL H 03/01/24 09:01: Sodium 138, Potassium 3.7, Chloride 110 H, Carbon Dioxide 10.0 L , Anion Gap 18 H, BUN 11, Creatinine 0.98, Estim Creat Clear Calc 49.87, Est GFR (MDRD) Af Amer 74, Est GFR (MDRD) Non-Af 62, BUN/Creatinine Ratio 11.3, Glucose 328 H, Calcium 8.2 L 03/01/24 09:25: POC Glucose 243 H 03/01/24 10:21: POC Glucose 241 H 03/01/24 12:02: POC Glucose 210 H 03/01/24 13:17: Sodium 137, Potassium 3.5, Chloride 112 H, Carbon Dioxide 11.0 L , Anion Gap 14, BUN 9, Creatinine 0.90, Estim Creat Clear Calc 54.30, Est GFR (MDRD) Af Amer 82, Est GFR (MDRD) Non-Af 67, BUN/Creatinine Ratio 10.0, Glucose 191 H, Calcium 8.6 03/01/24 13:58: POC Glucose 148 H Assessment & Plan Assessment/Plan (1) Acute dehydration: (2) Diabetic ketoacidosis associated with type 2 diabetes mellitus: PLAN: Plan 1. DKA/type 2 diabetes ? Will continue with sliding scale insulin ? Continue with IV fluids ? Every 4 BMP, does appear that her gap has closed ? Will continue with Lantus 10 units twice daily, her home dosing is 30 units at night ? Can likely advance her diet in the morning ? Potassium is stable ? Will hold her lisinopril and metformin 75 minutes was spent on direct patient care, including documentation as well as chart review and collaboration with colleagues Charges/Coding Visit Charges Inpatient E&M: 69063 Init Hosp L3
[2024-03-01 17:26] LABS: Anion Gap 17 (5-15); BUN 9 mg/dL (7-18); Chloride 110 mmol/L (98-107); EST Glomerular Filtration Rate 67 mL/min (>60); Est Glom Filt Rate - Afr Amer 81 mL/min (>60); Glucose 231 mg/dL (74-106); Potassium 3.6 mmol/L (3.5-5.1); Sodium Level 137 mmol/L (136-145)
[2024-03-01] MEDS: Insulin Lispro 100 UNIT/ML INSULN.PEN 6 UNIT SC (18:17)
[2024-03-01] MEDS: Insulin Lispro 100 UNIT/ML INSULN.PEN SC (18:59)
[2024-03-01 19:29] LABS: Bedside Glucose 256 mg/dL (74-106)
[2024-03-01 19:29] LABS: Bedside Glucose 247 mg/dL (74-106)
[2024-03-01 21:39] LABS: Anion Gap 15 (5-15); BUN 9 mg/dL (7-18); BUN/Creat Ratio 10.1 RATIO (10-20); Calcium,Total 9.2 mg/dL (8.5-10.1); Chloride 114 mmol/L (98-107); Creatinine, Serum 0.89 mg/dL (0.55-1.02); EST Glomerular Filtration Rate 68 mL/min (>60); Est Glom Filt Rate - Afr Amer 83 mL/min (>60); Estimated Creatinine Clearance 54.91 ml/min; Glucose 175 mg/dL (74-106); Potassium 3.3 mmol/L (3.5-5.1); Sodium Level 138 mmol/L (136-145)
[2024-03-01] MEDS: 0.9% Saline Lock 10 ML Syringe IV (23:23)
[2024-03-01] MEDS: Insulin Glargine-YFGN 100 UNIT/ML Pen 10 UNIT SC (23:23)
[2024-03-01 23:38] LABS: Bedside Glucose 109 mg/dL (74-106)
[2024-03-02 01:02] LABS: Anion Gap 17 (5-15); BUN 9 mg/dL (7-18); BUN/Creat Ratio 10.8 RATIO (10-20); Calcium,Total 9.2 mg/dL (8.5-10.1); Chloride 113 mmol/L (98-107); Creatinine, Serum 0.83 mg/dL (0.55-1.02); EST Glomerular Filtration Rate 74 mL/min (>60); Est Glom Filt Rate - Afr Amer 89 mL/min (>60); Estimated Creatinine Clearance 58.88 ml/min; Glucose 140 mg/dL (74-106); Potassium 3.3 mmol/L (3.5-5.1); Sodium Level 140 mmol/L (136-145)
[2024-03-02] MEDS: Insulin Lispro 100 UNIT/ML INSULN.PEN SC ×4 (02:03→22:20)
[2024-03-02] MEDS: Morphine 2 MG/ML Syringe IV ×6 (02:04→19:02)
[2024-03-02] MEDS: 0.9% Saline Lock 10 ML Syringe IV (02:04)
[2024-03-02 02:29] LABS: Bedside Glucose 191 mg/dL (74-106)
[2024-03-02 05:02] VITALS: BP 164/76; PULSE 101; RESP 16; TEMP 36.5; O2SAT 100
[2024-03-02] MEDS: 0.9% Normal Saline (1000mL) 1,000 ML 150 ML IV (06:10)
[2024-03-02 07:00] VITALS: PULSE 108
[2024-03-02 08:03] VITALS: BP 134/64; PULSE 108; RESP 18; TEMP 36.5; O2SAT 100
[2024-03-02] MEDS: Insulin Glargine-YFGN 100 UNIT/ML Pen 10 UNIT SC ×2 (08:06→22:20)
[2024-03-02] MEDS: Insulin Lispro 100 UNIT/ML INSULN.PEN 6 UNIT SC ×2 (08:07→11:37)
[2024-03-02] MEDS: Enoxaparin 40 MG/0.4 ML Syringe SC (08:08)
[2024-03-02 08:35] LABS: Bedside Glucose 240 mg/dL (74-106)
[2024-03-02] MEDS: Lactated Ringers 1,000 ML 150 ML IV ×2 (09:15→18:42)
[2024-03-02] MEDS: Potassium Chloride Oral Tablet 20 MEQ 40 MEQ PO (09:16)
--- NOTE | 2024-03-02 11:15 | CASEMGMT ---
JEFFRY TRINIDAD Assessment: Face to Face with pt for initial transition planning/care coordination assessment. JEFFRY TRINIDAD introduced self and role at [facility], pt voices understanding and consents to assessment. Pt is A&O x4 and answers all questions appropriately at this time. Pt sitting up in chair in no distress. Granddaughter present, pt agreeable to answering questions with family in the room. Care providers, pharmacy, and demographics verified/updated. Strata: 2 Admitting Dx: DKA PCP: Kimberly Specialists: Denies Preferred Pharmacy: [facility] Insurance: Self Pay - applied to [facility]. Prescription Benefit: yes LNOK: Son. Living Arrangements: Pt lives along, son going to be moving in. Lives in a 1 story home with zero steps to enter. ADLs: Pt reports I with ADLs and IADLs. Works at [employer] in [place]. Transportation: Pt drives self and denies concerns with transportation. DME: Glucometer and supplies. HHC/SNF: Denies Hx of SNF. Pt reports was using [facility], no longer participating and is not interested in restarting with [facility] at this time. Pt states no concerns with going home at time of dc. Pt states no further concerns/needs. CM to follow. Advised pt to ask CM if any further question/concerns/needs arise, voices understanding. Pt Goal: Home Plan: Home with family support. Francesco TERAN CM
[2024-03-02 11:57] LABS: Bedside Glucose 145 mg/dL (74-106)
--- NOTE | 2024-03-02 12:52 | CASEMGMT ---
Social Work SW met w/pt to complete SDOH, pt quite sleepy, granddaughter present also. SW reviewed w/pt and gave pt resources for food pantries, [employer], [employer] and [employer]. Pt also does not have insurance. She states did speak w/Gabriella from [employer] earlier and applied for Medicaid. SW provided to pt information on [facility] [employer], [facility] and prescription assistance programs. SW remains available for any additional resources as needed. MONA Guzman
[2024-03-02 12:55] VITALS: BP 105/84; PULSE 115; RESP 16; TEMP 36.8; O2SAT 99
--- NOTE | 2024-03-02 14:45 | PN.HOSP_ITS ---
Subjective Subjective Pain is little bit improved, gap is still open a little bit the blood sugars are controlled Objective Data Objective Data Vital Signs: Vital Signs Temp Pulse Resp BP Pulse Ox O2 Del Method 98.2 F 115 H 16 105/84 H 99 Room Air 03/02/24 12:55 03/02/24 12:55 03/02/24 12:55 03/02/24 12:55 03/02/24 12:55 03/02/24 12:55 Oxygen Delivery Method Room Air Weight: 117 lb 8.102 oz Body Mass Index (BMI) 20.8 Intake & Output: Intake and Output for Last 24 Hours 03/01/24 03/02/24 03/03/24 03:59 03:59 03:59 Intake Total 3009.50 / 3009.50 585 / 585 Balance 3009.50 / 3009.50 585 / 585 Lab / Micro Data 03/01/24 07:11 03/02/24 15:07 Labs: Laboratory Results - last 24 hr 03/01/24 17:00: Sodium 137, Potassium 3.6, Chloride 110 H, Carbon Dioxide 10.0 L , Anion Gap 17 H, BUN 9, Creatinine 0.90, Estim Creat Clear Calc 54.30, Est GFR (MDRD) Af Amer 81, Est GFR (MDRD) Non-Af 67, BUN/Creatinine Ratio 10.0, Glucose 231 H, Calcium 9.0 03/01/24 18:15: POC Glucose 256 H 03/01/24 18:58: POC Glucose 247 H 03/01/24 20:58: Sodium 138, Potassium 3.3 L, Chloride 114 H, Carbon Dioxide 9.0 L*, Anion Gap 15, BUN 9, Creatinine 0.89, Estim Creat Clear Calc 54.91, Est GFR (MDRD) Af Amer 83, Est GFR (MDRD) Non-Af 68, BUN/Creatinine Ratio 10.1, Glucose 175 H, Calcium 9.2 03/01/24 23:20: POC Glucose 109 H 03/02/24 00:35: Sodium 140, Potassium 3.3 L, Chloride 113 H, Carbon Dioxide 10.0 L, Anion Gap 17 H, BUN 9, Creatinine 0.83, Estim Creat Clear Calc 58.88, Est GFR (MDRD) Af Amer 89, Est GFR (MDRD) Non-Af 74, BUN/Creatinine Ratio 10.8, Glucose 140 H, Calcium 9.2 03/02/24 02:00: POC Glucose 191 H 03/02/24 08:05: POC Glucose 240 H 03/02/24 11:34: POC Glucose 145 H Physical Exam Narrative General: Alert, Oriented x3, Cooperative, No apparent distress HEENT: Atraumatic, PERRLA, EOMI, Normocephalic Oral: Dry mucosa Neck: Supple, No JVD Lungs: Diminished, Normal air movement, No rhonchi, No wheeze, No rales Cardiovascular: Tachycardic, Regular Rhythm, Normal S1, Normal S2, No murmurs Abdomen: Soft, Non Tender, Non-Distended, No Hepato-splenomegaly Extremities: No edema, Capillary Refill Less than 3 Seconds Skin: No rashes, No breakdown Musculoskeletal: No Tenderness to Palpation of Joints or Extremities Neurological: No focal neurological deficits, Motor Exam 5/5 strength throughout, Sensory exam intact to light touch and pain Psych/Mental Status: Normal Affect, Appropriate Assessment & Plan Assessment/Plan (1) Acute dehydration: (2) Diabetic ketoacidosis associated with type 2 diabetes mellitus: PLAN: Plan 1. DKA/type 2 diabetes ? Will continue with sliding scale insulin ? Replace potassium today and will transition her to LR ? Will continue with Lantus 10 units twice daily, her home dosing is 30 units at night ? Can likely advance her diet in the morning ? Will hold her lisinopril and metformin DVT: Lovenox Charges/Coding Visit Charges Inpatient E&M: 03678 Subs Hosp L2
[2024-03-02 15:35] LABS: Anion Gap 11 (5-15); BUN 10 mg/dL (7-18); BUN/Creat Ratio 10.4 RATIO (10-20); Calcium,Total 9.9 mg/dL (8.5-10.1); Chloride 116 mmol/L (98-107); Creatinine, Serum 0.96 mg/dL (0.55-1.02); EST Glomerular Filtration Rate 63 mL/min (>60); Est Glom Filt Rate - Afr Amer 76 mL/min (>60); Estimated Creatinine Clearance 50.91 ml/min; Glucose 47 mg/dL (74-106); Potassium 3.3 mmol/L (3.5-5.1); Sodium Level 141 mmol/L (136-145)
[2024-03-02 16:00] VITALS: BP 143/67; PULSE 110; RESP 16; TEMP 36.3; O2SAT 98
[2024-03-02] MEDS: Glucerna Shake 120 ML LIQUID PO (16:01)
[2024-03-02 19:05] LABS: Bedside Glucose 295 mg/dL (74-106)
[2024-03-02 19:05] LABS: Bedside Glucose 60 mg/dL (74-106)
[2024-03-02 19:05] LABS: Bedside Glucose 32 mg/dL (74-106)
[2024-03-02 22:15] VITALS: BP 158/72; PULSE 99; RESP 16; TEMP 36.5; O2SAT 100
[2024-03-02 22:38] LABS: Bedside Glucose 222 mg/dL (74-106)
[2024-03-03] MEDS: Lactated Ringers 1,000 ML 150 ML IV ×4 (01:33→21:44)
[2024-03-03 02:18] LABS: Bedside Glucose 94 mg/dL (74-106)
[2024-03-03] MEDS: Morphine 2 MG/ML Syringe IV ×2 (02:47→10:40)
[2024-03-03 04:15] VITALS: BP 152/70; PULSE 90; RESP 16; TEMP 36.4; O2SAT 99
[2024-03-03] MEDS: 0.9% Saline Lock 10 ML Syringe IV (06:02)
[2024-03-03 07:18] LABS: Absolute Lymphocyte Count 1.54 X10^3/uL (0.83-4.51); Absolute Neutrophil Count 2.3 X10^3/uL (2.0-7.7); Basophil# 0.02 X10^3/uL; Basophil% 0.5 % (0-1); Eosinophils% 2.3 % (0-5); Hematocrit 29.6 % (37-47); Hemoglobin 10.2 g/dL (12.0-15.0); Lymphocyte # 1.54 X10^3/ul (0.83-4.51); Lymphocyte % 34.9 % (19-41); Mean Corp Hgb Conc 34.5 g/dL (32-36); Mean Corpuscular Hgb 29.4 pg (27.0-32.0); Mean Corpuscular Volume 85.3 fL (81-99); Mean Platelet Vol. 11.3 fl (6.2-12.0); Monocyte# 0.46 X10^3/uL; Monocyte% 10.4 % (0-10); NRBC Flagged by Analyzer 0 % (0-5); Neutrophil # 2.26 X10^3/uL (2.7-7.7); Neutrophil % 51.2 % (47-70); Platelet Count 162 K/mm3 (150-450); RBC Distribution Width CV 13.1 % (11.6-14.6); RBC Distribution Width SD 40.1 fl (35.1-43.9); Red Blood Count 3.47 M/mm3 (4.2-5.4); White Blood Count 4.4 K/mm3 (4.4-11.0)
[2024-03-03 07:54] LABS: Anion Gap 5 (5-15); BUN 9 mg/dL (7-18); BUN/Creat Ratio 12.3 RATIO (10-20); Calcium,Total 9.6 mg/dL (8.5-10.1); Chloride 115 mmol/L (98-107); Creatinine, Serum 0.73 mg/dL (0.55-1.02); EST Glomerular Filtration Rate 85 mL/min (>60); Est Glom Filt Rate - Afr Amer 103 mL/min (>60); Estimated Creatinine Clearance 66.95 ml/min; Glucose 67 mg/dL (74-106); Potassium 2.6 mmol/L (3.5-5.1); Sodium Level 141 mmol/L (136-145)
[2024-03-03] MEDS: Glucerna Shake 120 ML LIQUID PO (08:25)
[2024-03-03] MEDS: Potassium Chloride Oral Tablet 20 MEQ 60 MEQ PO (08:31)
[2024-03-03 08:37] VITALS: BP 165/81; PULSE 98; RESP 14; TEMP 36.8; O2SAT 99
[2024-03-03] MEDS: Insulin Glargine-YFGN 100 UNIT/ML Pen 10 UNIT SC ×2 (10:36→21:43)
[2024-03-03] MEDS: Enoxaparin 40 MG/0.4 ML Syringe SC (10:37)
[2024-03-03 11:09] LABS: Bedside Glucose 71 mg/dL (74-106)
[2024-03-03 11:09] LABS: Bedside Glucose 137 mg/dL (74-106)
--- NOTE | 2024-03-03 11:56 | PN.HOSP_ITS ---
Subjective Subjective Doing well, back pain is improved. Potassium is low Objective Data Objective Data Vital Signs: Vital Signs Temp Pulse Resp BP Pulse Ox O2 Del Method 98.3 F 98 14 165/81 H 99 Room Air 03/03/24 08:37 03/03/24 08:37 03/03/24 08:37 03/03/24 08:37 03/03/24 08:37 03/03/24 10:00 Oxygen Delivery Method Room Air Weight: 117 lb 8.102 oz Body Mass Index (BMI) 20.8 Intake & Output: Intake and Output for Last 24 Hours 03/02/24 03/03/24 03/04/24 03:59 03:59 03:59 Intake Total 3009.50 / 3009.50 3795 / 3795 1250 / 1250 Balance 3009.50 / 3009.50 3795 / 3795 1250 / 1250 Lab / Micro Data 03/03/24 06:45 03/03/24 06:45 Labs: Laboratory Results - last 24 hr 03/02/24 11:34: POC Glucose 145 H 03/02/24 15:07: Sodium 141, Potassium 3.3 L, Chloride 116 H, Carbon Dioxide 14.0 L, Anion Gap 11, BUN 10, Creatinine 0.96, Estim Creat Clear Calc 50.91, Est GFR (MDRD) Af Amer 76, Est GFR (MDRD) Non-Af 63, BUN/Creatinine Ratio 10.4, Glucose 47 L, Calcium 9.9 03/02/24 15:21: POC Glucose 32 L* 03/02/24 16:05: POC Glucose 60 L 03/02/24 18:44: POC Glucose 295 H 03/02/24 22:12: POC Glucose 222 H 03/03/24 01:59: POC Glucose 94 03/03/24 06:45: WBC 4.4, RBC 3.47 L, Hgb 10.2 L, Hct 29.6 L, MCV 85.3, MCH 29.4, MCHC 34.5, RDW Std Deviation 40.1, RDW Coeff of Nellie 13.1, Plt Count 162, MPV 11.3, Immature Gran % (Auto) 0.700, Neut % (Auto) 51.2, Lymph % (Auto) 34.9, M earline % (Auto) 10.4 H, Eos % (Auto) 2.3, Baso % (Auto) 0.5, Absolute Neuts (auto) 2.3, Absolute Lymphs (auto) 1.54, Nucleated RBC % 0, Sodium 141, Potassium 2.6 L*, Chloride 115 H, Carbon Dioxide 21.0, Anion Gap 5, BUN 9, Creatinine 0.73, Estim Creat Clear Calc 66.95, Est GFR (MDRD) Af Amer 103, Est GFR (MDRD) Non-Af 85, BUN/Creatinine Ratio 12.3, Glucose 67 L, Calcium 9.6 03/03/24 08:23: POC Glucose 71 L 03/03/24 10:34: POC Glucose 137 H Physical Exam Narrative General: Alert, Oriented x3, Cooperative, No apparent distress HEENT: Atraumatic, PERRLA, EOMI, Normocephalic Oral: Moist mucosa Neck: Supple, No JVD Lungs: Diminished, Normal air movement, No rhonchi, No wheeze, No rales Cardiovascular: Regular rate, Regular Rhythm, Normal S1, Normal S2, No murmurs Abdomen: Soft, Non Tender, Non-Distended, No Hepato-splenomegaly Extremities: No edema, Capillary Refill Less than 3 Seconds Skin: No rashes, No breakdown Musculoskeletal: No Tenderness to Palpation of Joints or Extremities Neurological: No focal neurological deficits, Motor Exam 5/5 strength throughout, Sensory exam intact to light touch and pain Psych/Mental Status: Normal Affect, Appropriate Assessment & Plan Assessment/Plan (1) Acute dehydration: (2) Diabetic ketoacidosis associated with type 2 diabetes mellitus: PLAN: Plan 1. DKA/type 2 diabetes ? Will continue with sliding scale insulin ? Will slow her fluids down ? Will continue with Lantus 10 units twice daily, her home dosing is 30 units at night ? Continue with her carb controlled diet ? Continue with lisinopril but hold metformin ? Will replace potassium, recheck in the morning DVT: [place] Charges/Coding Visit Charges Inpatient E&M: 85341 Subs Hosp L2
[2024-03-03 14:23] VITALS: BP 147/69; PULSE 96; RESP 12; TEMP 37; O2SAT 98
[2024-03-03] MEDS: Insulin Lispro 100 UNIT/ML INSULN.PEN SC ×2 (16:50→21:42)
[2024-03-03] MEDS: Insulin Lispro 100 UNIT/ML INSULN.PEN 6 UNIT SC (16:50)
[2024-03-03 17:33] LABS: Bedside Glucose 146 mg/dL (74-106)
[2024-03-03 17:33] LABS: Bedside Glucose 184 mg/dL (74-106)
[2024-03-03] MEDS: oxyCODONE 5 MG Tablet PO (21:44)
[2024-03-03 21:48] VITALS: BP 147/95; PULSE 90; RESP 14; TEMP 36.6; O2SAT 98
[2024-03-03 22:50] LABS: Bedside Glucose 185 mg/dL (74-106)
--- NOTE | 2024-03-04 01:18 | NURSING ---
This RN took over patient care at 0100.
[2024-03-04 03:00] VITALS: BP 158/80; PULSE 93; RESP 16; TEMP 36.7; O2SAT 97
[2024-03-04 03:19] LABS: Bedside Glucose 50 mg/dL (74-106)
[2024-03-04 03:54] LABS: Bedside Glucose 107 mg/dL (74-106)
[2024-03-04] MEDS: Lactated Ringers 1,000 ML 150 ML IV (04:17)
[2024-03-04] MEDS: oxyCODONE 5 MG Tablet PO (04:20)
[2024-03-04 06:46] LABS: Anion Gap 5 (5-15); BUN 5 mg/dL (7-18); BUN/Creat Ratio 8.7 RATIO (10-20); Calcium,Total 8.9 mg/dL (8.5-10.1); Chloride 110 mmol/L (98-107); Creatinine, Serum 0.57 mg/dL (0.55-1.02); EST Glomerular Filtration Rate 114 mL/min (>60); Est Glom Filt Rate - Afr Amer 137 mL/min (>60); Estimated Creatinine Clearance 85.74 ml/min; Glucose 118 mg/dL (74-106); Potassium 2.5 mmol/L (3.5-5.1); Sodium Level 142 mmol/L (136-145)
[2024-03-04 06:46] LABS: Bedside Glucose 112 mg/dL (74-106)
[2024-03-04] MEDS: Potassium Chloride Oral Tablet 20 MEQ 60 MEQ PO (06:59)
[2024-03-04 08:27] VITALS: BP 161/90; PULSE 95; RESP 12; TEMP 36.7; O2SAT 97
[2024-03-04] MEDS: Potassium Chloride Oral Tablet 20 MEQ 40 MEQ PO (08:29)
[2024-03-04] MEDS: Lisinopril 5 MG Tablet PO (08:29)
[2024-03-04] MEDS: Glucerna Shake 120 ML LIQUID PO (08:29)
[2024-03-04] MEDS: Enoxaparin 40 MG/0.4 ML Syringe SC (08:29)
[2024-03-04 09:07] LABS: Phosphorus 1.2 mg/dL (2.5-4.9)
[2024-03-04] MEDS: Insulin Glargine-YFGN 100 UNIT/ML Pen 10 UNIT SC ×2 (11:04→22:05)
[2024-03-04] MEDS: Insulin Lispro 100 UNIT/ML INSULN.PEN 6 UNIT SC (11:04)
[2024-03-04] MEDS: Lactated Ringers 1,000 ML 100 ML IV ×2 (11:06→21:57)
[2024-03-04 11:26] LABS: Bedside Glucose 181 mg/dL (74-106)
--- NOTE | 2024-03-04 11:52 | PN.HOSP_ITS ---
Subjective Subjective Doing well, no issues overnight seems a little bit fatigued Objective Data Objective Data Vital Signs: Vital Signs Temp Pulse Resp BP Pulse Ox O2 Del Method 98.1 F 95 12 161/90 H 97 Room Air 03/04/24 08:27 03/04/24 08:27 03/04/24 08:27 03/04/24 08:27 03/04/24 08:27 03/04/24 09:36 Oxygen Delivery Method Room Air Weight: 117 lb 8.102 oz Body Mass Index (BMI) 20.8 Intake & Output: Intake and Output for Last 24 Hours 03/03/24 03/04/24 03/05/24 03:59 03:59 03:59 Intake Total 3795 / 3795 3672.5 / 3672.5 2258.33 / 2258.33 Balance 3795 / 3795 3672.5 / 3672.5 2258.33 / 2258.33 Lab / Micro Data 03/03/24 06:45 03/04/24 05:28 Labs: Laboratory Results - last 24 hr 03/03/24 14:21: POC Glucose 146 H 03/03/24 16:48: POC Glucose 184 H 03/03/24 21:40: POC Glucose 185 H 03/04/24 03:00: POC Glucose 50 L 03/04/24 03:35: POC Glucose 107 H 03/04/24 05:28: Sodium 142, Potassium 2.5 L*, Chloride 110 H, Carbon Dioxide 27.0, Anion Gap 5, BUN 5 L, Creatinine 0.57, Estim Creat Clear Calc 85.74, Est GFR (MDRD) Af Amer 137, Est GFR (MDRD) Non-Af 114, BUN/Creatinine Ratio 8.7 L, G [place]ose 118 H, Calcium 8.9, Phosphorus 1.2 L, Magnesium 2.0 03/04/24 06:28: POC Glucose 112 H 03/04/24 11:03: POC Glucose 181 H Physical Exam Narrative General: Alert, Oriented x3, Cooperative, No apparent distress HEENT: Atraumatic, PERRLA, EOMI, Normocephalic Oral: Moist mucosa Neck: Supple, No JVD Lungs: Diminished, Normal air movement, No rhonchi, No wheeze, No rales Cardiovascular: Regular rate, Regular Rhythm, Normal S1, Normal S2, No murmurs Abdomen: Soft, Non Tender, Non-Distended, No Hepato-splenomegaly Extremities: No edema, Capillary Refill Less than 3 Seconds Skin: No rashes, No breakdown Musculoskeletal: No Tenderness to Palpation of Joints or Extremities Neurological: No focal neurological deficits, Motor Exam 5/5 strength throughout, Sensory exam intact to light touch and pain Psych/Mental Status: Normal Affect, Appropriate Assessment & Plan Assessment/Plan (1) Acute dehydration: (2) Diabetic ketoacidosis associated with type 2 diabetes mellitus: PLAN: Plan 1. DKA/type 2 diabetes/hypokalemia with hypophosphatemia ? Will continue with sliding scale insulin ? Will continue with Lantus 10 units twice daily, her home dosing is 30 units at night ? Continue with her carb controlled diet ? Continue with lisinopril but hold metformin ?Will replace electrolytes and monitor DVT: Lovenox Charges/Coding Visit Charges Inpatient E&M: 17283 Subs Hosp L2
[2024-03-04] MEDS: Potassium Phosphate 40 MM in 0.9% Normal Saline (500mL Bag) 500 ML 62.5 MM IV (12:29)
[2024-03-04 13:05] LABS: Anion Gap 3 (5-15); BUN 4 mg/dL (7-18); BUN/Creat Ratio 5.9 RATIO (10-20); Calcium,Total 8.9 mg/dL (8.5-10.1); Chloride 110 mmol/L (98-107); Creatinine, Serum 0.68 mg/dL (0.55-1.02); EST Glomerular Filtration Rate 93 mL/min (>60); Est Glom Filt Rate - Afr Amer 113 mL/min (>60); Estimated Creatinine Clearance 71.87 ml/min; Glucose 163 mg/dL (74-106); Sodium Level 141 mmol/L (136-145)
--- NOTE | 2024-03-04 15:34 | CHAPLAIN ---
Type of Pastoral Visit _x__ Initial Visit ___ Follow-up Visit ___ On-call Visit ___ General Patient Visit ___ Spiritual Assessment ___ Family Conference ___ Bereavement ___ Rapid Response ___ Code Blue ___ Other (describe below) Pastoral Care Referral From _x__ Patient ___ Family ___ Nurse ___ Physician ___ Ticker Installer ___ Product Technician ___ Other (describe below) Sacrament/Intervention _x__ Active listening ___ Anointing ___ Episcopalian ___ Bereavement ___ Communion ___ Kathryn exploration ___ ___ Life review _x__ Prayer ___ Reconciliation ___ Sacrament of Sick ___ Supportive presence ___ Wedding ___ Other (describe below) Pastoral Comments patient and son are in the room; patient describes her desire I just want to feel better and get back to work but acknowledges that she has been weak and unable to do her daily tasks; son is supportive and affirms that she needs to get rest and get well; both talk about their work in the same place; patient welcomes presence and prayer for support
[2024-03-04 15:38] VITALS: BP 129/76; PULSE 88; RESP 12; TEMP 36.8; O2SAT 99
[2024-03-04 16:48] LABS: Bedside Glucose 82 mg/dL (74-106)
[2024-03-04 21:52] VITALS: BP 150/80; PULSE 84; RESP 14; TEMP 36.3; O2SAT 98
[2024-03-04] MEDS: Insulin Lispro 100 UNIT/ML INSULN.PEN SC (22:05)
[2024-03-04 22:30] LABS: Bedside Glucose 217 mg/dL (74-106)
[2024-03-05 03:35] VITALS: BP 148/80; PULSE 85; RESP 16; TEMP 36.5; O2SAT 97
[2024-03-05 04:03] LABS: Bedside Glucose 113 mg/dL (74-106)
[2024-03-05] MEDS: oxyCODONE 5 MG Tablet PO (04:28)
[2024-03-05] MEDS: Lactated Ringers 1,000 ML 100 ML IV (06:55)
[2024-03-05 07:25] LABS: Anion Gap 4 (5-15); BUN 3 mg/dL (7-18); BUN/Creat Ratio 4.9 RATIO (10-20); Calcium,Total 8.9 mg/dL (8.5-10.1); Chloride 106 mmol/L (98-107); Creatinine, Serum 0.61 mg/dL (0.55-1.02); EST Glomerular Filtration Rate 105 mL/min (>60); Est Glom Filt Rate - Afr Amer 127 mL/min (>60); Estimated Creatinine Clearance 80.12 ml/min; Glucose 147 mg/dL (74-106); Phosphorus 2.8 mg/dL (2.5-4.9); Potassium 2.7 mmol/L (3.5-5.1); Sodium Level 141 mmol/L (136-145)
[2024-03-05 08:11] LABS: Bedside Glucose 132 mg/dL (74-106)
[2024-03-05 09:20] VITALS: BP 141/74; PULSE 86; RESP 18; TEMP 37; O2SAT 97
[2024-03-05] MEDS: Potassium Chloride Oral Tablet 20 MEQ 60 MEQ PO (09:22)
[2024-03-05] MEDS: Lisinopril 5 MG Tablet PO (09:22)
[2024-03-05] MEDS: Insulin Glargine-YFGN 100 UNIT/ML Pen 10 UNIT SC (09:23)
[2024-03-05] MEDS: Enoxaparin 40 MG/0.4 ML Syringe SC (09:23)
--- NOTE | 2024-03-05 11:23 | DCINST_ITS ---
Discharge Instructions Diet Discharge Diet: Carb Control Diet Activity Discharge Activity: Return to Normal Activity Return to work on:: 03/09/24 Dressing / Incision Call your doctor if you observe: Fever of 101 or Higher, Shortness of breath, Dizziness, Fainting spells, Swelling in the ankles, Chest pain and Increased palpitations (irregular heartbeat) Follow Up Care Test Results: Test results from this visit will be discussed in further detail at your follow- up appointment, if applicable. Discharge Plan Admission Admit Date/Time: 03/01/24 11:14 Attending Provider: Harry Medrano Primary Care Provider: Milind Lamb Additional Instructions / Restrictions: Follow-up with your PCP early next week to monitor your potassium levels as they have been low. He will be on replacement for about 10 days. Discharge Orders/Prescriptions Prescriptions: New potassium chloride 20 mEq tablet extended release 20 meq PO BID Qty: 20 0RF Continued (DME) FreeStyle Moncho 2 Sensor Kit See Rx Instructions .Route Qty: 2 5RF Rx Instructions: As directed (DME) lancets [FreeStyle Lancets] 28 gauge misc See Rx Instructions .Route Qty: 100 0RF Rx Instructions: As directed (DME) FreeStyle Test Strip See Rx Instructions .Route Qty: 100 0RF Rx Instructions: As directed (DME) pen needle, diabetic [BD Ultra-Fine Josefina Pen Needle] 32 gauge x 5/32 needle See Rx Instructions .ROUTE .MEDSUPPLY Qty: 50 5RF Rx Instructions: daily (DME) blood-glucose meter [FreeStyle Lite Meter] Kit See Rx Instructions .Route Qty: 1 0RF Rx Instructions: As directed (DME) FreeStyle Lite Strips Strip See Rx Instructions .Route Qty: 100 0RF Rx Instructions: As directed metformin 1,000 mg tablet 1,000 mg PO BID Qty: 60 2RF insulin lispro [Humalog KwikPen Insulin] 100 unit/mL Insulin Pen 6 unit subcut TIDAC Qty: 15 2RF (DME) lancets [FreeStyle Lancets] 28 gauge misc See Rx Instructions .Route Qty: 100 0RF Rx Instructions: As directed lisinopril 2.5 mg tablet 5 mg PO DAILY insulin glargine U-300 conc [Toujeo Max U-300 SoloStar] 300 unit/mL (3 mL) insulin pen 30 unit subcut QHS Referrals / Follow Up: Milind Lamb MD [Primary Care Provider] - Within 1 Week Disposition Disposition (needs filled in before D/C Order can be placed): Home, Self Care
[2024-03-05] MEDS: Insulin Lispro 100 UNIT/ML INSULN.PEN 6 UNIT SC (11:43)
[2024-03-05] MEDS: Insulin Lispro 100 UNIT/ML INSULN.PEN SC (11:43)
--- NOTE | 2024-03-05 11:53 | CASEMGMT ---
Order for DC placed. RN CM to pt room at this time. Pt states that she feels safe going home today and that she has a ride home. Pt denies further needs at this time including OP Tx and HHC.
[2024-03-05 11:58] LABS: Bedside Glucose 220 mg/dL (74-106)
--- NOTE | 2024-03-05 15:25 | DS.PCM_ITS ---
Providers Date of Admission: 03/01/24 Primary Care Physician: Dr. Milind Lamb MD Reason For Visit: DKA Diagnosis Discharge Diagnosis (1) Acute dehydration: Status: Acute Code(s): E86.0 - Dehydration (2) Diabetic ketoacidosis associated with type 2 diabetes mellitus: Status: Acute Code(s): E11.10 - Type 2 diabetes mellitus with ketoacidosis without coma Medications at Discharge Home Medications flash glucose sensor (FreeStyle Moncho 2 Sensor kit) #2 ea 04/11/22 blood sugar diagnostic (FreeStyle Lite Strips) #100 ea 07/28/22 blood sugar diagnostic (FreeStyle Test strips) #100 ea 07/28/22 blood-glucose meter (FreeStyle Lite Meter kit) #1 ea 07/28/22 lancets 28 gauge (FreeStyle Lancets) #100 ea 07/28/22 pen needle, diabetic 32 gauge x 5/32 (BD Ultra-Fine Josefina Pen Needle) #50 ea 07/28/22 insulin lispro 100 unit/mL subcutaneous pen (Humalog KwikPen (U-100) Insulin) 6 unit (0.06 mL) subcut TIDAC diabetes #15 mL 07/05/23 metformin 1,000 mg tablet 1,000 mg PO BID diabetes #60 tabs 07/05/23 lancets 28 gauge (FreeStyle Lancets) #100 ea 07/06/23 insulin glargine U-300 conc 300 unit/mL (3 mL) subcutaneous pen (Toujeo Max U- 300 SoloStar) 30 unit subcut QHS blood sugar 03/01/24 lisinopril 2.5 mg tablet 5 mg PO DAILY blood pressurre 03/01/24 potassium chloride 20 mEq tablet,extended release 20 meq PO BID #20 tabs 03/05/24 Hospital Course Operations None Procedures None Summary of Care Provided Minutes Spent on Discharge: 33 Hospital Course: Per HPI: ROBERT BRUCE, is a 63 F who presents to the hospital with dehydration and DKA. She has a history of type 2 diabetes and states that she has been taking her insulin appropriately however over the last 2 or 3 days she has had a decrease in appetite and has been feeling more dehydrated. Her blood sugars were climbing and she started developing back pain which happened the last time she had DKA. She has no significant abdominal pain and no significant pain on palpation. In the ER she was found to have a blood sugar of 419 and was given a dose of insulin and this corrected to 241 at the time of my evaluation. She was admitted to PCU despite having extensive ketones because her blood sugar was so low that her insulin drip would be very low-dose. She denies any recent sick contacts and there is no obvious cause for her DKA at this time. Hospital Course: 1. DKA in the setting of type 2 diabetes with hypokalemia and hypophosphatemia? 63-year-old female presented to the hospital with DKA and back pain. There is no cause for the back pain other than she says that she gets it whenever she has DKA. This did improve with the improvement in her DKA. She was found to have severe hypokalemia and hypophosphatemia and this was replaced. Today on the day of discharge she felt well enough to go home, her potassium was still low at 2.7 so she was given 60 mEq p.o. and then discharged on 20 mEq p.o. twice daily of potassium. I discussed with her the plan for possible discharge today she expressed understanding risk-benefit of going home and would like to go home today. She will resume her home insulin as well as her home metformin and lisinopril. She will be given 10 days worth of potassium, and I recommend she follow-up with her PCP early next week for evaluation of her potassium levels. Physical Exam Narrative General: Alert, Oriented x3, Cooperative, No apparent distress HEENT: Atraumatic, PERRLA, EOMI, Normocephalic Oral: Moist mucosa Neck: Supple, No JVD Lungs: Diminished, Normal air movement, No rhonchi, No wheeze, No rales Cardiovascular: Regular rate, Regular Rhythm, Normal S1, Normal S2, No murmurs Abdomen: Soft, Non Tender, Non-Distended, No Hepato-splenomegaly Extremities: No edema, Capillary Refill Less than 3 Seconds Skin: No rashes, No breakdown Musculoskeletal: No Tenderness to Palpation of Joints or Extremities Neurological: No focal neurological deficits, Motor Exam 5/5 strength throughout, Sensory exam intact to light touch and pain Psych/Mental Status: Normal Affect, Appropriate Weight / BMI Weight Weight: 117 lb 8.102 oz Body Mass Index (BMI) 20.8 ABG / Lab / Microbiology Data 03/03/24 06:45 03/05/24 06:05 Laboratory: Laboratory Results - last 24 hr 03/04/24 16:28: POC Glucose 82 03/04/24 22:00: POC Glucose 217 H 03/05/24 03:39: POC Glucose 113 H 03/05/24 06:05: Sodium 141, Potassium 2.7 L*, Chloride 106, Carbon Dioxide 31.0, Anion Gap 4 L, BUN 3 L, Creatinine 0.61, Estim Creat Clear Calc 80.12, Est GFR (MDRD) Af Amer 127, Est GFR (MDRD) Non-Af 105, BUN/Creatinine Ratio 4.9 L, G lucose 147 H, Calcium 8.9, Phosphorus 2.8 03/05/24 07:52: POC Glucose 132 H 03/05/24 11:39: POC Glucose 220 H D/C Instructions Discharge Diet: Carb Control Diet Return to work on: 03/09/24 Call your doctor if you observe: Fever of 101 or Higher, Shortness of breath, Dizziness, Fainting spells, Swelling in the ankles, Chest pain and Increased palpitations (irregular heartbeat) Meaningful Use Info Meaningful Use Meaningful Use Diagnoses (Choose all that apply): None applicable Ischemic Stroke Statin Dosing Therapy Reference: STATIN DOSE THERAPY REFERENCE: * Patients > 75 years receive moderate or high dose statin therapy. * Patients 75 years or YOUNGER should receive HIGH intensity statin dose unless contraindicated. You will be required to document reason for non-treatment if statin daily dose does not meet guidelines. HIGH DOSE STATIN THERAPY DAILY Atorvastatin > than or = to 40 mg Rosuvastatin > than or = to 20 mg Amlodipine + Atorvastatin > than or = to 2.5/40 mg Ezetimibe + Simvastatin 10/80 mg Simvastatin 80mg Discharge Plan Admission Admit Date/Time: 03/01/24 11:14 Attending Provider: Harry Medrano Primary Care Provider: Milind Lamb Instructions Additional Instructions / Restrictions: Follow-up with your PCP early next week to monitor your potassium levels as they have been low. He will be on replacement for about 10 days. Discharge Orders/Prescriptions Prescriptions: New potassium chloride 20 mEq tablet extended release 20 meq PO BID Qty: 20 0RF Continued (DME) FreeStyle Moncho 2 Sensor Kit See Rx Instructions .Route Qty: 2 5RF Rx Instructions: As directed (DME) lancets [FreeStyle Lancets] 28 gauge misc See Rx Instructions .Route Qty: 100 0RF Rx Instructions: As directed (DME) FreeStyle Test Strip See Rx Instructions .Route Qty: 100 0RF Rx Instructions: As directed (DME) pen needle, diabetic [BD Ultra-Fine Josefina Pen Needle] 32 gauge x 5/32 needle See Rx Instructions .ROUTE .MEDSUPPLY Qty: 50 5RF Rx Instructions: daily (DME) blood-glucose meter [FreeStyle Lite Meter] Kit See Rx Instructions .Route Qty: 1 0RF Rx Instructions: As directed (DME) FreeStyle Lite Strips Strip See Rx Instructions .Route Qty: 100 0RF Rx Instructions: As directed metformin 1,000 mg tablet 1,000 mg PO BID Qty: 60 2RF insulin lispro [Humalog KwikPen Insulin] 100 unit/mL Insulin Pen 6 unit subcut TIDAC Qty: 15 2RF (DME) lancets [FreeStyle Lancets] 28 gauge misc See Rx Instructions .Route Qty: 100 0RF Rx Instructions: As directed lisinopril 2.5 mg tablet 5 mg PO DAILY insulin glargine U-300 conc [Toujeo Max U-300 SoloStar] 300 unit/mL (3 mL) insulin pen 30 unit subcut QHS Referrals / Follow Up: Milind Lamb MD [Primary Care Provider] - 03/10/24 8:00 am Disposition Disposition (needs filled in before D/C Order can be placed): Home, Self Care Charges/Coding Visit Charges Inpatient E&M: 63203 Disch Hosp >30min
[2024-03-09 07:15] LABS: Bedside Glucose 35 mg/dL (74-106)
[2024-03-09 07:16] LABS: Bedside Glucose 40 mg/dL (74-106)
[2024-03-09 07:22] LABS: Bedside Glucose 379 mg/dL (74-106)
== END 2024-03-05 13:26 | disposition home or self-care (01) | DRG 639 ==
LOC: ED 10:12 → PCU 11:36
PROVIDERS: Internal Medicine; Admitting Provider Family Medicine; Emergency Provider Emergency Medicine; PCP Family Medicine; Visit Provider Family Medicine
DX: E11.10 Type 2 diabetes mellitus with ketoacidosis without coma (principal); E83.39 Other disorders of phosphorus metabolism; I10 Essential (primary) hypertension; Z79.4 Long term (current) use of insulin; E87.6 Hypokalemia; Z79.84 Long term (current) use of oral hypoglycemic drugs; Z79.899 Other long term (current) drug therapy; Z86.16 Personal history of COVID-19; Z87.891 Personal history of nicotine dependence
CPT/HCPCS: 36415; 80048; 80053; 81001; 82009; 82962; 83605; 83735; 84100; 84484; 85025; 93005; 99284; J7030; J7040; J7120; A4216

== ENCOUNTER 2024-05-02 20:19 | Inpatient (IN) | payer SELFPAY ==
[2024-05-02 20:20] VITALS: BP 170/91; PULSE 122; RESP 17; TEMP 36.6; O2SAT 98; BMI 20.2
--- NOTE | 2024-05-02 20:31 | EKG12_ITS ---
Test Reason : DYSRHYTHMIA Blood Pressure : / mmHG Vent. Rate : 119 BPM Atrial Rate : 119 BPM P-R Int : 130 ms QRS Dur : 084 ms QT Int : 318 ms P-R-T Axes : 074 054 024 degrees QTc Int : 447 ms Sinus tachycardia Biatrial enlargement Nonspecific ST and T wave abnormality Abnormal ECG Confirmed by VIKRAM RICH, RENETTA ([id number]), avid editor JIMMY MEADE ([id number]) on 05/04/2024 7:54:13 AM Referred By: Confirmed By:RENETTA SUE MD
--- NOTE | 2024-05-02 20:35 | EX.ED.DYSGE1 ---
HPI History of Present Illness Chief Complaint: General Illness Informant: patient Narrative Narrative: 64-year-old female diabetic type II on insulin presents by EMS because she is not feeling well. She states she has generalized weakness, urinary frequency, extreme thirst, dyspnea with exertion, nausea, pain in her left anterior lateral neck and left low back, no abdominal pain. No vomiting or diarrhea. Pressure 199 systolic by EMS, patient states she is post to be on blood pressure medication but cannot afford it so has been off of it for weeks because she ran out. Still been doing her insulin and checking her blood sugar, she states for the past 2 days it has been in the 3-400 range, 450 this morning before she went to work. She denies any cough or chest pain. No fevers or chills that she knows of. [facility] Medical History Diabetic ketoacidosis associated with type 1 diabetes mellitus Pyuria Back pain Diabetes Hypokalemia Tobacco use Anxiety and depression ETOH abuse GERD (gastroesophageal reflux disease) HTN (hypertension) Diabetes mellitus, type 2 History of alcoholism COVID-19 Home Medications ?Medication ?Instructions ?Recorded ?Last Taken ?Type flash glucose sensor (FreeStyle #2 ea 04/11/22 Unknown Rx Moncho 2 Sensor kit) blood sugar diagnostic (FreeStyle #100 ea 07/28/22 Unknown Rx Lite Strips) blood sugar diagnostic (FreeStyle #100 ea 07/28/22 Unknown Rx Test strips) blood-glucose meter (FreeStyle #1 ea 07/28/22 Unknown Rx Lite Meter kit) lancets 28 gauge (FreeStyle #100 ea 07/28/22 Unknown Rx Lancets) pen needle, diabetic 32 gauge x #50 ea 07/28/22 Unknown Rx (BD Ultra-Fine Josefina Pen Needle) insulin lispro 100 unit/mL 6 unit (0.06 mL) subcut TIDAC 07/05/23 02/29/24 Rx subcutaneous pen (Humalog KwikPen diabetes #15 mL (U-100) Insulin) metformin 1,000 mg tablet 1,000 mg PO BID diabetes #60 tabs 07/05/23 02/29/24 Rx lancets 28 gauge (FreeStyle #100 ea 07/06/23 Unknown Rx Lancets) insulin glargine U-300 conc 300 30 unit subcut QHS blood sugar 03/01/24 02/29/24 History unit/mL (3 mL) subcutaneous pen (Magnus Max U-300 SoloStar) lisinopril 2.5 mg tablet 5 mg PO DAILY blood pressurre 03/01/24 02/29/24 History sertraline 50 mg tablet 50 mg PO DAILY 05/02/24 Unknown History Allergy/AdvReac Type Severity Reaction Status Date / Time No Known Allergies Allergy Verified 05/02/24 20:21 Family History Mother Diabetes Father Diabetes Cancer Hx mesothelioma. Surgical History (Updated 03/01/24 @ 17:[address] Harry Medrano MD) Status post tubal ligation Social History household members: other details: Lives with her son. Her son is also an alcoholic. Smoking Status: Former smoker alcohol intake: former details: maybe drinks a glass of wine a day, but does not drink alcohol anymore substance use type: does not use ROS ROS ED Constitutional Constitutional ED: Reports fatigue and weakness; Denies chills or fever(s) Eyes Eyes: Denies change in vision or diplopia ENT ENT ED: Denies rhinorrhea or sore throat Cardiovascular Cardiovascular: Denies chest pain or palpitations Respiratory/Chest Respiratory/Chest: Reports dyspnea on exertion; Denies cough Gastrointestinal Gastrointestinal: Reports nausea; Denies abdominal pain, diarrhea or vomiting Genitourinary Genitourinary ED: Denies dysuria or hematuria Musculoskeletal Musculoskeletal: Reports back pain and neck pain Integumentary Denies abscess or rash Neurologic Neurologic: Denies headache(s), paresthesias or weakness Psychiatric Psychiatric: Denies suicidal thoughts Endocrine Endocrinology: Reports polydipsia and polyuria EXAM Physical Exam Const Vital Signs: 05/02/24 20:20 05/02/24 20:20 Temperature 98 F Temperature Source Oral Pulse Rate 122 H Respiratory Rate 17 Respiratory Effort Normal Non-Labored Respiratory Pattern Normal Blood Pressure 170/91 H Blood Pressure Mean 117 Pulse Ox 98 Oxygen Delivery Method Room Air Positive well nourished and well developed General Appearance ED: well developed and NAD HEENT Reports dry mucous membranes normocephalic and atraumatic Mouth ED: Yes dry mucous membranes Mouth: dry mucous membranes Eyes PERRL and EOMs intact bilaterally Neck full ROM and supple Resp normal respiratory effort and clear to auscultation bilaterally Cardio regular rate, regular rhythm and no murmurs Rate: tachycardic GI non-distended GI Narrative: Very mild discomfort with palpation in the epigastrium, no pulsatile mass, flat abdomen, otherwise benign. No guarding or rebound. Auscultation: normoactive bowel sounds Palpation: soft Back/Spine no CVA tenderness General Back: other FROM Extremity normal to inspection General Extremety ED: Negative for edema, pulses abnormal or tenderness General Extremity: Negative for edema or pulses abnormal Neuro oriented x3, CN's II-XII intact bilaterally and no sensory deficits noted Sensorium / Orientation: awake and alert Motor Exam: general weakness Psych Negative for mental status grossly normal Skin no rashes or lesions noted and no wounds MDM MDM MDM Narrative Medical decision making narrative: patient with high blood sugar, dyspnea, feeling dehydrated, and she has not used alcohol in a long time, she states she has not an alcoholic as her records indicate. She is tachycardic. Her EKG shows no acute injury pattern, chest x-ray 2 views of my interpretation is normal, and I obtained an ABG as well as labs screening for DKA since she has been diagnosed with that before although she claims to be a type II diabetic, and it appears that she is in DKA. She is acidotic with a pH of 7.2, she has a bicarb of 10, and a pCO2 that is low, consistent with a metabolic acidosis. Her ketones are positive and her blood sugar is 437. Her urine shows signs of infection and she is complaining of pain in her low back which we treated with morphine and antibiotics, sending a lactic acid which is still pending as well as cultures. Receiving her metabolic panel showing normal potassium, we are starting her on an insulin drip, and discussing with hospitalist for admission to the ICU. Lab Data Attestation: I reviewed the patient's lab results. Labs: Laboratory Results - last 24 hr 05/02/24 05/02/24 21:10 22:00 WBC 8.2 RBC 4.19 L Hgb 12.4 Hct 38.0 MCV 90.7 MCH 29.6 MCHC 32.6 RDW Std Deviation 42.3 RDW Coeff of Nellie 12.8 Plt Count 288 MPV 11.7 Immature Gran % (Auto) 0.500 Neut % (Auto) 74.1 H Lymph % (Auto) 18.9 L [place] % (Auto) 5.5 Eos % (Auto) 0.5 Baso % (Auto) 0.5 Absolute Neuts (auto) 6.1 Absolute Lymphs (auto) 1.55 Nucleated RBC % 0 D-Dimer Quant (PE/DVT) 0.37 Sodium 132 L Potassium 3.8 Chloride 101 Carbon Dioxide 10.0 L Anion Gap 21 H BUN 22 H Creatinine 1.33 H Estim Creat Clear Calc 36.00 Est GFR (MDRD) Af Amer 52 L Est GFR (MDRD) Non-Af 43 L BUN/Creatinine Ratio 16.5 Glucose 437 H Calcium 10.1 Total Bilirubin 0.50 AST 7 L ALT 15 Alkaline Phosphatase 112 Troponin I High Sens 5 Total Protein 8.3 H Albumin 4.3 Globulin 4.0 Albumin/Globulin Ratio 1.1 Lipase 41 Urine Color Straw Urine Clarity Clear Urine pH 5.0 Ur Specific [place] 1.025 Urine Protein 100 H Urine Glucose (UA) 1000 H Urine Ketones 150 A* Urine Occult Blood 10 H Urine Nitrite Negative Urine Bilirubin Negative Urine Urobilinogen Normal Ur Leukocyte Esterase 100 H Urine RBC 0 SEEN Urine WBC 25-50 SEEN Ur Squamous Epith Cells 5-10 SEEN Urine Bacteria 1+ Hyaline Casts 0-5 SEEN Fine Granular Casts 0-5 SEEN Urine Mucus 0 SEEN Ethyl Alcohol < 3.0 Acetone Level LARGE H Radiography Diagnostic Testing: Clinical Impression(s) from Imaging Studies Chest X-Ray 05/02/24 21:25 IMPRESSION: There are no acute findings. Electronically Signed: Durga Mead MD at 21:38 EDT Reading Location ID and State: [facility] / [place] , Service support , Rhythm Strip Rhythm Strip: Sinus Tach Rate: 120 Ectopy: None EKG Initial EKG: Attestation: I personally reviewed and interpreted this EKG as follows: Interpretation: No Acute Injury Pattern, Sinus Tachycardia and Non-Specific ST Changes Management Discussion w/another healthcare provider: Hospitalist Critical Care Time Critical Care Time: Yes Critical care time (excluding procedures): 30-74 minutes (36 min), Including time spent:, Discussing w/Patient &/or Family/Electrical Installation Supervisor, Discussing w/Consultants, Arranging Admission or Transfer and Performing Direct Patient Care at Bedside Discharge Plan Triage Chief Complaint: General Illness ED Provider: Reece Galvan Dx/Rx/DC Orders Clinical Impression: DKA (diabetic ketoacidosis), UTI (urinary tract infection), Accelerated hypertension, Noncompliance with medications Prescriptions: No Action (DME) FreeStyle Moncho 2 Sensor Kit See Rx Instructions .Route Qty: 2 5RF Rx Instructions: As directed (DME) lancets [FreeStyle Lancets] 28 gauge misc See Rx Instructions .Route Qty: 100 0RF Rx Instructions: As directed (DME) FreeStyle Test Strip See Rx Instructions .Route Qty: 100 0RF Rx Instructions: As directed (DME) pen needle, diabetic [BD Ultra-Fine Josefina Pen Needle] 32 gauge x 5/32 needle See Rx Instructions .ROUTE .MEDSUPPLY Qty: 50 5RF Rx Instructions: daily (DME) blood-glucose meter [FreeStyle Lite Meter] Kit See Rx Instructions .Route Qty: 1 0RF Rx Instructions: As directed (DME) FreeStyle Lite Strips Strip See Rx Instructions .Route Qty: 100 0RF Rx Instructions: As directed metformin 1,000 mg tablet 1,000 mg PO BID Qty: 60 2RF insulin lispro [Humalog KwikPen Insulin] 100 unit/mL Insulin Pen 6 unit subcut TIDAC Qty: 15 2RF (DME) lancets [FreeStyle Lancets] 28 gauge misc See Rx Instructions .Route Qty: 100 0RF Rx Instructions: As directed lisinopril 2.5 mg tablet 5 mg PO DAILY insulin glargine U-300 conc [Toujeo Max U-300 SoloStar] 300 unit/mL (3 mL) insulin pen 30 unit subcut QHS sertraline 50 mg tablet 50 mg PO DAILY Primary Care Provider: Milind Lamb Referrals: Milind Lamb MD [Primary Care Provider] - Print Language: French Disposition Disposition: Acute Care [facility]
[2024-05-02] MEDS: Ondansetron 4 MG/2 ML Vial IV (21:02)
[2024-05-02] MEDS: 0.9% Normal Saline (1000mL) 1,000 ML 1000 ML IV (21:02)
[2024-05-02 21:23] LABS: Mucous, Urine 0 SEEN /hpf (<or=2+); Red Blood Cells-Urine 0 SEEN /hpf (0-5)
--- NOTE | 2024-05-02 21:25 | RAD_ITS ---
STUDY: XR Chest 2 Views 05/02/2024 9:04 PM REASON FOR EXAM: Female, 64 years old. sob COMPARISON: None TECHNIQUE: XR Chest 2 Views FINDINGS: There is no demonstrated pleural abnormality. Normal heart size. Normal mediastinum. Normal richard. Prominent appearing increased interstitial lung markings. Normal visualized pulmonary arteries. There is atherosclerotic calcification of the aortic arch with tortuosity. There are diffuse degenerative changes of the visualized thoracic spine. There is degenerative osteoarthritis of the bilateral shoulders. There are no acute findings of the upper abdomen. RAD/Chest PA and Lateral IMPRESSION: There are no acute findings. Electronically Signed: Durga Mead MD at 21:38 EDT ,
[2024-05-02 21:28] LABS: Color, Urine Straw (Yellow); Glucose, Dipstick 1000 mg/dl (Normal); Leukocyte Esterase-Dipstick 100 /ul (Negative); Nitrite-Dipstick Negative (Negative); Occult Blood-Urine 10 /ul (Negative); Protein-Dipstick 100 mg/dl (Negative); Specific Gravity, Urine 1.025 (1.002-1.030); Urine Bilirubin Dipstick Negative (Negative); Urine Clarity Clear (Clear); Urine Urobilinogen Normal (Normal)
[2024-05-02 21:30] LABS: Absolute Lymphocyte Count 1.55 X10^3/uL (0.83-4.51); Absolute Neutrophil Count 6.1 X10^3/uL (2.0-7.7); Basophil# 0.04 X10^3/uL; Basophil% 0.5 % (0-1); Eosinophil# 0.04 X10^3/uL; Eosinophils% 0.5 % (0-5); Hemoglobin 12.4 g/dL (12.0-15.0); Lymphocyte # 1.55 X10^3/ul (0.83-4.51); Lymphocyte % 18.9 % (19-41); Mean Corp Hgb Conc 32.6 g/dL (32-36); Mean Corpuscular Hgb 29.6 pg (27.0-32.0); Mean Corpuscular Volume 90.7 fL (81-99); Mean Platelet Vol. 11.7 fl (6.2-12.0); Monocyte# 0.45 X10^3/uL; Monocyte% 5.5 % (0-10); NRBC Flagged by Analyzer 0 % (0-5); Neutrophil # 6.08 X10^3/uL (2.7-7.7); Neutrophil % 74.1 % (47-70); Platelet Count 288 K/mm3 (150-450); RBC Distribution Width CV 12.8 % (11.6-14.6); RBC Distribution Width SD 42.3 fl (35.1-43.9); Red Blood Count 4.19 M/mm3 (4.2-5.4); White Blood Count 8.2 K/mm3 (4.4-11.0)
[2024-05-02 21:34] LABS: Ketone-Dipstick 150 mg/dl (Negative)
[2024-05-02 21:39] LABS: Bacteria 1+ /hpf (None Seen); Fine Granular Cast- Urine 0-5 SEEN /lpf (0-5); Hyaline Cast 0-5 SEEN /lpf (0-5); Squamous Epithelial Cells - UA 5-10 SEEN /hpf (5-10); White Blood Cells 25-50 SEEN /hpf (0-5)
[2024-05-02 21:45] LABS: Alcohol, Blood (Medical)-Serum < 3.0 mg/dL; D-Dimer Quantitative (DVT/PE) 0.37 FEU/ug/m (0.27-0.49)
[2024-05-02 22:07] LABS: ALB/GLOB Ratio 1.1 RATIO (0.9-2.4); AST(SGOT) 7 U/L (15-37); Alanine Aminotransfer ALT/SGPT 15 U/L (13-56); Albumin, Serum 4.3 g/dL (3.2-5.0); Alkaline Phosphatase 112 U/L (45-117); Anion Gap 21 (5-15); BUN 22 mg/dL (7-18); BUN/Creat Ratio 16.5 RATIO (10-20); Calcium,Total 10.1 mg/dL (8.5-10.1); Chloride 101 mmol/L (98-107); Creatinine, Serum 1.33 mg/dL (0.55-1.02); EST Glomerular Filtration Rate 43 mL/min (>60); Est Glom Filt Rate - Afr Amer 52 mL/min (>60); Glucose 437 mg/dL (74-106); Lipase 41 U/L (13-75); Potassium 3.8 mmol/L (3.5-5.1); Protein, Total 8.3 g/dL (6.4-8.2); Sodium Level 132 mmol/L (136-145); Troponin-I HS 5 pg/mL (3.0-54.0)
[2024-05-02 22:20] VITALS: BP 174/86; PULSE 120; RESP 16; O2SAT 97
[2024-05-02] MEDS: Ceftriaxone 1 GM/50 ML BAG IV (22:34)
[2024-05-02] MEDS: Morphine 4 MG/ML Syringe IV (22:34)
--- NOTE | 2024-05-02 22:51 | HP.PCM.HOS_ITS ---
[facility] - General General Date of Admission: 05/02/24 Date of Service: 05/02/24 Chief Complaint: Hyperglycemia, Generalized Weakness and Malaise. HPI Narrative ROBERT MEADOWS, is a 64 F with a past medical history of essential hypertension, former tobacco abuse, DM-1; uncontrolled with hyperglycemia and history of DKA, history of UTI, history of medical noncompliance, former EtOH abuse, depression with anxiety, history of COVID-19, remote history of tubal ligation, chronic constipation, GERD and OA; with low back pain who presents to [facility] ER complaining of hyperglycemia, generalized weakness and malaise. Ms. Meadows reports her symptoms began approximately 2 days prior to admission with the gradual-onset of generalized weakness with polyuria, polydipsia and JAMES. She went on to state she has been prescribed blood pressure medication but she did not take it for the past ~2 weeks because she cannot afford it. She also noticed persistent hyperglycemia in the 300-450 mg/dL range in spite of taking her insulin as usual - similar to her previous bouts of DKA so she then activated EMS who noted her blood pressure was highly elevated in the ~199/90 range with sinus tachycardia in the ~120 bpm range. She denies associated fever, chills, nausea, vomiting, abdominal pain, SOB or cough. In the ER she was noted to have laboratory evidence of DKA; with hyperglycemia of 437 mg/dL and elevated Anion Gap of 21 present on admission with Large Serum Acetone complicated by UA positive for Acute Cystitis; without hematuria compounded by clinical evidence of Accelerated Hypertension due to Medical Noncompliance with antihypertensive medications for the past ~2 weeks all causing Generalized Weakness plus Malaise and she was then admitted to the ICU for treatment under the DKA protocol for a stay that is expected to extend beyond 2 midnights. [facility] History Diabetic ketoacidosis associated with type 1 diabetes mellitus Pyuria Back pain Diabetes Hypokalemia Tobacco use Anxiety and depression ETOH abuse GERD (gastroesophageal reflux disease) HTN (hypertension) Diabetes mellitus, type 2 History of alcoholism COVID-19 Home Medications ?Medication ?Instructions ?Recorded ?Last Taken ?Type flash glucose sensor (FreeStyle #2 ea 04/11/22 Unknown Rx Moncho 2 Sensor kit) blood sugar diagnostic (FreeStyle #100 ea 07/28/22 Unknown Rx Lite Strips) blood-glucose meter (FreeStyle #1 ea 07/28/22 Unknown Rx Lite Meter kit) lancets 28 gauge (FreeStyle #100 ea 07/28/22 Unknown Rx Lancets) pen needle, diabetic 32 gauge x #50 ea 07/28/22 Unknown Rx 32 (BD Ultra-Fine Josefina Pen Needle) insulin lispro 100 unit/mL 6 unit (0.06 mL) subcut TIDAC 07/05/23 02/29/24 Rx subcutaneous pen (Humalog KwikPen diabetes #15 mL (U-100) Insulin) lancets 28 gauge (FreeStyle #100 ea 07/06/23 Unknown Rx Lancets) insulin glargine U-300 conc 300 30 unit subcut QHS blood sugar 03/01/24 02/29/24 History unit/mL (3 mL) subcutaneous pen (Toujeo Max U-300 SoloStar) lisinopril 2.5 mg tablet 5 mg PO DAILY blood pressurre 03/01/24 02/29/24 History sertraline 50 mg tablet 50 mg PO DAILY depression 05/02/24 Unknown History metformin 1,000 mg tablet 1,000 mg PO DAILY diabetes 05/03/24 Unknown History Allergy/AdvReac Type Severity Reaction Status Date / Time No Known Allergies Allergy Verified 05/02/24 20:21 Family History Mother Diabetes Father Diabetes Cancer Hx mesothelioma. Surgical History Status post tubal ligation Social History household members: other details: Lives with her son. Her son is also an alcoholic. Smoking Status: Former smoker alcohol intake: former details: maybe drinks a glass of wine a day, but does not drink alcohol anymore substance use type: does not use ROS ROS Narrative Review of Systems: Constitutional: Patient admits to generalized weakness and malaise but denies fever or chills. Eyes: Patient denies changes in vision or discharge from eyes. ENT: Patient denies runny nose, sore throat or ear pain. Resp: Patient admits to SOB but she denies cough. CV: Patient denies chest pain, palpitations or heart racing. GI: Patient admits to nausea but denies abdominal pain, vomiting or diarrhea. : Patient denies dysuria or hematuria. MSK: Patient admits to back and neck pain. Skin: Patient denies rash, abscess or jaundice. Psych: Patient denies symptoms of uncontrolled depression or anxiety. Neuro: Patient denies headache, paresthesias or focal neurologic weakness. Allergy: Patient denies lip swelling, tongue swelling or uticaria. Hematology: Patient denies easy bleeding or easy bruisability. Endocrinology: Patient admits to polyuria and polydipsia. 14 point ROS otherwise negative except for positives noted above in HPI. Vital Signs Vital Signs Vital Signs: 05/02/24 20:20 05/02/24 20:20 05/02/24 22:20 Temperature 98 F Temperature Source Oral Pulse Rate 122 H 120 H Respiratory Rate 17 16 Respiratory Effort Normal Non-Labored Respiratory Pattern Normal Blood Pressure 170/91 H 174/86 H Blood Pressure Mean 117 115 Pulse Ox 98 97 Oxygen Delivery Method Room Air Room Air Weight Weight: 114 lb 10.246 oz Body Mass Index (BMI) 20.2 Physical Exam Const alert, oriented x3, no apparent distress and average body habitus General Appearance: cooperative HEENT normocephalic, head/scalp atraumatic and hearing grossly normal bilaterally HEENT Narrative: Mucous membranes dry. Eyes PERRL and EOMs intact bilaterally Neck no lymphadenopathy and supple Resp normal respiratory effort, no retractions, no use of accessory muscles and clear to auscultation bilaterally Cardio regular rate and regular rhythm Cardio Narrative: Sinus Tachycardia noted at ~120 bpm. GI normal to inspection, nondistended, normoactive bowel sounds, soft to palpation, non-tender and non-distended Extremity normal to inspection, full ROM and no clubbing, cyanosis or edema Skin Skin Narrative: Patient has no evidence of rash, abscess or jaundice. Neuro oriented x3, CN's II-XII intact bilaterally, moves all extremities and no focal motor deficits Sensorium / Orientation: awake, alert, oriented to person, oriented to place and oriented to time Speech: speech normal Psych affect normal Results Medical Records Data Attestation: I reviewed the patient's medical records Lab / Micro Data Attestation: I reviewed the patient's lab results. 05/03/24 04:00 05/03/24 00:00 Labs: Laboratory Results - last 24 hr 05/02/24 21:10: WBC 8.2, RBC 4.19 L, Hgb 12.4, Hct 38.0, MCV 90.7, MCH 29.6, MCHC 32.6, RDW Std Deviation 42.3, RDW Coeff of Nellie 12.8, Plt Count 288, MPV 11.7, Immature Gran % (Auto) 0.500, Neut % (Auto) 74.1 H, Lymph % (Auto) 18.9 L, [place] % (Auto) 5.5, Eos % (Auto) 0.5, Baso % (Auto) 0.5, Absolute Neuts (auto) 6.1, Absolute Lymphs (auto) 1.55, Nucleated RBC % 0, D-Dimer Quant (PE/DVT) 0.37, Sodium 132 L, Potassium 3.8, Chloride 101, Carbon Dioxide 10.0 L, Anion Gap 21 H, BUN 22 H, Creatinine 1.33 H, Estim Creat Clear Calc 36.00, Est GFR (MDRD) Af Amer 52 L, Est GFR (MDRD) Non-Af 43 L, BUN/Creatinine Ratio 16.5, G lucose 437 H, Calcium 10.1, Total Bilirubin 0.50, AST 7 L, ALT 15, Alkaline Phosphatase 112, Troponin I High Sens 5, Total Protein 8.3 H, Albumin 4.3, Globulin 4.0, Albumin/Globulin Ratio 1.1, Lipase 41, Urine Color Straw, Urine Clarity Clear, Urine pH 5.0, Ur Specific [place] 1.025, Urine Protein 100 H, U rine Glucose (UA) 1000 H, Urine Ketones 150 A*, Urine Occult Blood 10 H, Urine Nitrite Negative, Urine Bilirubin Negative, Urine Urobilinogen Normal, Ur Leukocyte Esterase 100 H, Urine RBC 0 SEEN, Urine WBC 25-50 SEEN, Ur Squamous Epith Cells 5-10 SEEN, Urine Bacteria 1+, Hyaline Casts 0-5 SEEN, Fine Granular Casts 0-5 SEEN, Urine Mucus 0 SEEN, Ethyl Alcohol < 3.0 05/02/24 22:00: Acetone Level LARGE H Rhythm Strip Rhythm Strip: Sinus Tach Rate: 120 Ectopy: None Imaging Radiology Impression Chest X-Ray 05/02/24 21:25 IMPRESSION: There are no acute findings. Electronically Signed: Durga Mead MD at 21:38 EDT , Assessment & Plan Assessment/Plan (1) DKA (diabetic ketoacidosis): QUALIFIERS: Diabetes mellitus complication detail: without coma D iabetes mellitus type: type 1 Qualified Code(s): E10.10 - Type 1 diabetes mellitus with ketoacidosis without coma (2) UTI (urinary tract infection): QUALIFIERS: Hematuria presence: without hematuria Urinary tract infection type: acute cystitis Qualified Code(s): N30.00 - Acute cystitis without hematuria (3) Accelerated hypertension: (4) Noncompliance with medications: (5) Sinus tachycardia seen on cardiac cath lab technologist: (6) Generalized weakness: (7) Malaise: PLAN: Plan 1. DKA; with hyperglycemia of 437 mg/dL with elevated Anion Gap of 21 and Large Serum Acetone in the setting of known DM-1; uncontrolled with hyperglycemia and history of DKA - Admit to ICU for treatment under the DKA protocol. Vigorously volume resuscitate. Check BMP q. 4 hours. 2. UA positive for Acute Cystitis; without hematuria likely triggering #1 with a known history of UTI - Continue empiric IV Rocephin and await culture and sensitivity data. Give Tylenol prn for [id number] (level 1-5/10) pain or fever. Give Morphine IV prn for severe (level 6-10/10) pain. 3. Accelerated Hypertension in the ~199/90 mmHg range with sinus tachycardia in the ~120 bpm range due to Medical Noncompliance with antihypertensive medications for the past ~2 weeks complicating #1 & #2 - Restart home regimen plus give prn IV Lopressor for systolic blood pressure > 160 mmHg and/or heart rate > 120 bpm. Patient was strongly encouraged to take her blood pressure medications as prescribed. 4. Generalized Weakness and Malaise attributable to #1 - #3 - Check TSH. PT/OT and Case Management to consult and treat in the AM on-rounds with help appreciated in advance. 5. Former tobacco abuse - Noted with patient denying recent tobacco abuse. 6. Former EtOH abuse - Noted with patient denying recent EtOH abuse. 7. Depression with anxiety - Stable. Continue home regimen as previous with sertraline. 8. History of COVID-19 - Noted. 9. Remote history of tubal ligation - Noted for the sake of completeness. 10. Chronic constipation - Give laxatives prn. 11. GERD - Give PPI IV in light of #1. 12. OA; with low back pain - Give Tylenol prn. 13. DVT prophylaxis - Lovenox 40 mg sq daily plus SCD's. Total time: Approximately (but not less than) 75 minutes. Charges/Coding Visit Charges Inpatient E&M: 03375 Init Hosp L3
[2024-05-02 23:02] VITALS: BP 164/76; PULSE 118; RESP 17; TEMP 37.1; O2SAT 97
[2024-05-02 23:17] LABS: Bedside Glucose 392 mg/dL (74-106)
[2024-05-02 23:37] LABS: Lactic Acid 0.9 mmol/L (0.4-1.9)
[2024-05-02 23:48] LABS: Magnesium 2.2 mg/dL (1.6-2.6)
[2024-05-02] MEDS: Insulin Lispro 100 UNIT in 0.9% Normal Saline (100mL Bag) 99 ML 5.2 UNIT CONT INF (23:49)
[2024-05-02 23:50] VITALS: BP 160/84; PULSE 121; RESP 18; O2SAT 100
[2024-05-02 23:59] LABS: Osmolality, Serum 334 mOsm/KG (280-301)
[2024-05-03] VITALS (28 sets, daily range): BP systolic 101–162; BP diastolic 52–99; PULSE 91–120; RESP 13–22; TEMP 36.4–37; O2SAT 98–100; BMI 20.3
[2024-05-03] MEDS: 0.9% Normal Saline (1000mL) 1,000 ML 500 ML IV (00:01)
[2024-05-03 00:12] LABS: Hemoglobin A1c 13.7 % (3.8-5.6)
[2024-05-03 00:32] LABS: Anion Gap 21 (5-15); BUN 22 mg/dL (7-18); BUN/Creat Ratio 18.8 RATIO (10-20); Calcium,Total 9.2 mg/dL (8.5-10.1); Chloride 106 mmol/L (98-107); Creatinine, Serum 1.17 mg/dL (0.55-1.02); EST Glomerular Filtration Rate 50 mL/min (>60); Est Glom Filt Rate - Afr Amer 60 mL/min (>60); Estimated Creatinine Clearance 41.08 ml/min; Glucose 419 mg/dL (74-106); Potassium 4.2 mmol/L (3.5-5.1); Sodium Level 136 mmol/L (136-145); Troponin-I HS 8 pg/mL (3.0-54.0)
[2024-05-03] MEDS: Morphine 2 MG/ML Syringe IV ×4 (00:33→22:06)
[2024-05-03] MEDS: Metoprolol Tartrate 5 MG/5 ML Vial 2.5 MG IV (00:37)
[2024-05-03 00:42] LABS: Allen Test Positive; Base Excess -22 mmol/L (-2 to +2); Bicarbonate 6.9 mmol/L (22-26); Blood Gas Specimen Type ART; Mode Not entered; O2 Delivery Device Room Air; PO2 95 mmHG (75-100); SITE L Radial; SO2 95 % (95-99); Total Carbon Dioxide 8 mmol/L; pCO2 20.7 mmHg (35-45); pH 7.13 (7.35-7.45)
[2024-05-03 00:59] LABS: Amphetamine Urine VISTA NEGATIVE (<1000 ng/mL); Barbiturate Urine VISTA NEGATIVE (< 200 ng/mL); Benzodiazepine Urine VISTA NEGATIVE (< 200 ng/mL); Cocaine Urine VISTA NEGATIVE (< 300 ng/mL); Ecstacy Urine VISTA NEGATIVE (< 500 ng/mL); Methadone Urine VISTA NEGATIVE (< 300 ng/mL); PCP Urine VISTA NEGATIVE (< 25 ng/mL); THC Urine VISTA NEGATIVE (< 50 ng/mL); Vista UDS pH Range 5
[2024-05-03 01:14] LABS: Bedside Glucose 333 mg/dL (74-106)
[2024-05-03] MEDS: 0.9% Normal Saline (1000mL) 1,000 ML 125 ML IV (02:10)
[2024-05-03 02:16] LABS: Bedside Glucose 277 mg/dL (74-106)
[2024-05-03] MEDS: KCL 20MEQ in D5.45NS 20 MEQ/1,000 ML IV.SOLN. 125 MEQ IV ×2 (03:06→11:05)
[2024-05-03 03:18] LABS: Bedside Glucose 218 mg/dL (74-106)
[2024-05-03] MEDS: 0.9% Saline Lock 10 ML Syringe IV ×4 (04:01→22:06)
[2024-05-03 04:15] LABS: Allen Test Positive; Base Excess -19 mmol/L (-2 to +2); Bicarbonate 8.9 mmol/L (22-26); Blood Gas Specimen Type ART; Mode Not entered; O2 Delivery Device Room Air; PO2 103 mmHG (75-100); SITE R Radial; SO2 97 % (95-99); Total Carbon Dioxide 10 mmol/L; pCO2 22.5 mmHg (35-45)
[2024-05-03 04:20] LABS: Bedside Glucose 244 mg/dL (74-106)
[2024-05-03 04:28] LABS: Absolute Lymphocyte Count 2.67 X10^3/uL (0.83-4.51); Absolute Neutrophil Count 5.5 X10^3/uL (2.0-7.7); Basophil# 0.04 X10^3/uL; Basophil% 0.4 % (0-1); Eosinophil# 0.02 X10^3/uL; Eosinophils% 0.2 % (0-5); Hematocrit 30.3 % (37-47); Lymphocyte # 2.67 X10^3/ul (0.83-4.51); Lymphocyte % 29.5 % (19-41); Mean Corpuscular Hgb 29.9 pg (27.0-32.0); Mean Corpuscular Volume 90.7 fL (81-99); Mean Platelet Vol. 11.9 fl (6.2-12.0); Monocyte# 0.78 X10^3/uL; Monocyte% 8.6 % (0-10); NRBC Flagged by Analyzer 0 % (0-5); Neutrophil # 5.49 X10^3/uL (2.7-7.7); Neutrophil % 60.7 % (47-70); Platelet Count 224 K/mm3 (150-450); RBC Distribution Width SD 42.6 fl (35.1-43.9); Red Blood Count 3.34 M/mm3 (4.2-5.4); White Blood Count 9.1 K/mm3 (4.4-11.0)
[2024-05-03 05:17] LABS: Bedside Glucose 211 mg/dL (74-106)
[2024-05-03 06:01] LABS: Anion Gap 12 (5-15); BUN 19 mg/dL (7-18); BUN/Creat Ratio 18.8 RATIO (10-20); Calcium,Total 8.5 mg/dL (8.5-10.1); Chloride 114 mmol/L (98-107); Creatinine, Serum 1.01 mg/dL (0.55-1.02); EST Glomerular Filtration Rate 59 mL/min (>60); Est Glom Filt Rate - Afr Amer 71 mL/min (>60); Estimated Creatinine Clearance 47.59 ml/min; Glucose 241 mg/dL (74-106); Phosphorus 2.1 mg/dL (2.5-4.9); Potassium 3.8 mmol/L (3.5-5.1); Sodium Level 137 mmol/L (136-145); Thyroid Stim Hormone (TSH) 0.332 uIU/mL (0.358-3.740); Troponin-I HS 9 pg/mL (3.0-54.0)
[2024-05-03 06:16] LABS: Bedside Glucose 212 mg/dL (74-106)
[2024-05-03 07:18] LABS: Bedside Glucose 196 mg/dL (74-106)
[2024-05-03 07:32] LABS: Blood Gas Specimen Type VEN; O2 Delivery Device Not entered; SITE Not entered; VBG BASE EXCESS -12 mmol/L (-1.0-3.5); VBG Bicarbonate 15 mmol/L (22-26); VBG PO2 71 mmHg (25-40); VBG SO2 90 % (50-70); VBG TCO2 17 mmol/L (23-33); VBG pCO2 38.2 mmHg (41-51); VBG pH 7.21 (7.32-7.42)
[2024-05-03 08:16] LABS: Bedside Glucose 183 mg/dL (74-106)
[2024-05-03 08:23] LABS: Anion Gap 9 (5-15); BUN 16 mg/dL (7-18); BUN/Creat Ratio 16.1 RATIO (10-20); Calcium,Total 8.4 mg/dL (8.5-10.1); Chloride 114 mmol/L (98-107); Creatinine, Serum 0.99 mg/dL (0.55-1.02); EST Glomerular Filtration Rate 60 mL/min (>60); Est Glom Filt Rate - Afr Amer 73 mL/min (>60); Estimated Creatinine Clearance 48.55 ml/min; Glucose 190 mg/dL (74-106); Potassium 3.5 mmol/L (3.5-5.1); Sodium Level 140 mmol/L (136-145)
--- NOTE | 2024-05-03 10:02 | PCM.PROGNOTE ---
Subjective Subjective Patient seen and examined. Complains of a headache and feeling generally tired. Review of symptoms otherwise negative. Anion gap has closed x 2. Patient states she went into DKA because not able to afford her medications. Review of systems is otherwise negative. Objective Data Objective Data Vital Signs: Vital Signs Temp Pulse Resp BP Pulse Ox O2 Del Method 98.3 F 94 18 137/70 H 98 Room Air 05/03/24 06:00 05/03/24 08:00 05/03/24 08:00 05/03/24 08:00 05/03/24 08:00 05/03/24 08:00 Oxygen Delivery Method Room Air Weight: 115 lb 1.301 oz Body Mass Index (BMI) 20.3 Intake & Output: Intake and Output for Last 24 Hours 05/01/24 05/02/24 05/03/24 23:59 23:59 23:59 Intake Total 1050 / 1050 1023.08 / 1023.08 Output Total 450 / 450 Balance 1050 / 1050 573.08 / 573.08 Lab / Micro Data 05/03/24 04:00 05/03/24 08:00 Labs: Laboratory Results - last 24 hr 05/02/24 21:10: WBC 8.2, RBC 4.19 L, Hgb 12.4, Hct 38.0, MCV 90.7, MCH 29.6, MCHC 32.6, RDW Std Deviation 42.3, RDW Coeff of Nellie 12.8, Plt Count 288, MPV 11.7, Immature Gran % (Auto) 0.500, Neut % (Auto) 74.1 H, Lymph % (Auto) 18.9 L, [place] % (Auto) 5.5, Eos % (Auto) 0.5, Baso % (Auto) 0.5, Absolute Neuts (auto) 6.1, Absolute Lymphs (auto) 1.55, Nucleated RBC % 0, D-Dimer Quant (PE/DVT) 0.37, Sodium 132 L, Potassium 3.8, Chloride 101, Carbon Dioxide 10.0 L, Anion Gap 21 H, BUN 22 H, Creatinine 1.33 H, Estim Creat Clear Calc 36.00, Est GFR (MDRD) Af Amer 52 L, Est GFR (MDRD) Non-Af 43 L, BUN/Creatinine Ratio 16.5, Glucose 437 H, Hemoglobin A1c 13.7 H, Calcium 10.1, Magnesium 2.2, Total Bilirubin 0.50, AST 7 L, ALT 15, Alkaline Phosphatase 112, Troponin I High Sens 5, Total Protein 8.3 H, Albumin 4.3, Globulin 4.0, Albumin/Globulin Ratio 1.1, Lipase 41, Urine Color Straw, Urine Clarity Clear, Urine pH 5.0, Ur Specific [place] 1.025, Urine Protein 100 H, Urine Glucose (UA) 1000 H, Urine Ketones 150 A*, Urine Occult Blood 10 H, Urine Nitrite Negative, Urine Bilirubin Negative, Urine Urobilinogen Normal, Ur Leukocyte Esterase 100 H, Urine RBC 0 SEEN, Urine WBC 25-50 SEEN, Ur Squamous Epith Cells 5-10 SEEN, Urine Bacteria 1+, Hyaline Casts 0-5 SEEN, Fine Granular Casts 0-5 SEEN, Urine Mucus 0 SEEN, Urine Opiates Screen Cancelled, Urine Methadone Screen Cancelled, Ur Barbiturates Screen Cancelled, Ur Phencyclidine Scrn Cancelled, Ur Amphetamines Screen Cancelled, MDMA (Ecstasy) Screen Cancelled, U Benzodiazepines Scrn Cancelled, Urine Cocaine Screen Cancelled, U Cannabinoids Screen Cancelled, Ur Drug Screen Comment Cancelled, Ethyl Alcohol < 3.0 05/02/24 22:00: Serum Osmolality 334 H, Acetone Level LARGE H 05/02/24 22:48: Lactic Acid 0.9 05/02/24 22:58: POC Glucose 392 H 05/03/24 00:00: Sodium 136, Potassium 4.2, Chloride 106, Carbon Dioxide 9.0 L*, Anion Gap 21 H, BUN 22 H, Creatinine 1.17 H, Estim Creat Clear Calc 41.08, Est GFR (MDRD) Af Amer 60, Est GFR (MDRD) Non-Af 50 L, BUN/Creatinine Ratio 18.8, Glucose 419 H, Calcium 9.2, Troponin I High Sens 8 05/03/24 00:24: Urine Opiates Screen POSITIVE H, Urine Methadone Screen NEGATIVE, Ur Barbiturates Screen NEGATIVE, Ur Phencyclidine Scrn NEGATIVE, Ur Amphetamines Screen NEGATIVE, MDMA (Ecstasy) Screen NEGATIVE, U Benzodiazepines Scrn NEGATIVE, Urine Cocaine Screen NEGATIVE, U Cannabinoids Screen NEGATIVE, Ur Drug Screen Comment 05/03/24 00:56: POC Glucose 333 H 05/03/24 01:57: POC Glucose 277 H 05/03/24 03:00: POC Glucose 218 H 05/03/24 03:59: POC Glucose 244 H 05/03/24 04:00: WBC 9.1, RBC 3.34 L, Hgb 10.0 L, Hct 30.3 L, MCV 90.7, MCH 29.9, MCHC 33.0, RDW Std Deviation 42.6, RDW Coeff of Nellie 13.0, Plt Count 224, MPV 11.9, Immature Gran % (Auto) 0.600, Neut % (Auto) 60.7, Lymph % (Auto) 29.5, [place] % (Auto) 8.6, Eos % (Auto) 0.2, Baso % (Auto) 0.4, Absolute Neuts (auto) 5.5, Absolute Lymphs (auto) 2.67, Nucleated RBC % 0, Sodium 137, Potassium 3.8, Chloride 114 H, Carbon Dioxide 12.0 L, Anion Gap 12, BUN 19 H, Creatinine 1.01, Estim Creat Clear Calc 47.59, Est GFR (MDRD) Af Amer 71, Est GFR (MDRD) Non-Af 59 L, BUN/Creatinine Ratio 18.8, Glucose 241 H, Calcium 8.5, Phosphorus 2.1 L, Troponin I High Sens 9, TSH 0.332 L, Acetone Level LARGE H 05/03/24 04:57: POC Glucose 211 H 05/03/24 05:57: POC Glucose 212 H 05/03/24 07:00: POC Glucose 196 H 05/03/24 07:57: POC Glucose 183 H 05/03/24 08:00: Sodium 140, Potassium 3.5, Chloride 114 H, Carbon Dioxide 17.0 L, Anion Gap 9, BUN 16, Creatinine 0.99, Estim Creat Clear Calc 48.55, Est GFR (MDRD) Af Amer 73, Est GFR (MDRD) Non-Af 60, BUN/Creatinine Ratio 16.1, Glucose 190 H, Calcium 8.4 L ABG Data ABG results: ABG 05/02/24 05/03/24 05/03/24 21:28 00:35 07:28 Specimen Type ART ART LIZY Sample Site R Radial L Radial Not entered pH 7.20 L 7.13 L* Bicarbonate Actual 8.9 L 6.9 L Total CO2 10 8 Base Excess -19 L -22 L O2 Saturation 97 95 O2 % 21.0 ABG pCO2 22.5 L 20.7 L ABG pO2 103 H 95 Isac Test Positive Positive VBG pH 7.21 L VBG pO2 71 H VBG HCO3 15 L VBG Total CO2 17 L VBG O2 Sat (Calc) 90 H VBG Base Excess -12 L POC Mix VBG pCO2 Pt Tmp 38.2 L O2 Delivery Device Room Air Room Air Not entered Vent Mode Not entered Not entered Crit Call To/Read Back Yes Yes Blood Gas Notified Whom dr. sarah Fernández Blood Gas Notified Time :: 00:38:43 Radiography Diagnostic Testing: Radiology Impression Chest X-Ray 05/02/24 21:25 IMPRESSION: There are no acute findings. Electronically Signed: Durga Mead MD at 21:38 EDT Reading Location ID and State: [facility] / [place] , Service support , Rhythm Strip Rhythm Strip: Sinus Tach Rate: 120 Ectopy: None Physical Exam Const alert and oriented x3 Constitutional Narrative: frail, weak General Appearance: cooperative HEENT normocephalic, head/scalp atraumatic and moist oral mucous membranes Eyes PERRL and EOMs intact bilaterally Neck no lymphadenopathy, supple and no JVD Lymph Lymphatic: no lymphadenopathy noted and no lymphedema noted Resp normal respiratory effort, normal air movement and clear to auscultation bilaterally Cardio regular rate, regular rhythm, S1 normal heart sound, S2 normal heart sound and no murmurs GI normal to inspection, nondistended, normoactive bowel sounds, soft to palpation, non-tender and non-distended Extremity normal capillary refill, no clubbing, cyanosis or edema and no calf tenderness General Extremity: no tenderness to palpation of joints or extremities Skin General Skin Exam: no breakdown Neuro CN's II-XII intact bilaterally and no focal motor deficits Motor Exam: strength 5/5 throughout and general weakness Psych thought process normal and cooperative Appearance: appropriate Assessment & Plan Assessment/Plan (1) Generalized weakness: (2) Malaise: (3) Accelerated hypertension: (4) DKA (diabetic ketoacidosis): QUALIFIERS: Diabetes mellitus complication detail: without coma Diabetes mellitus type: type 1 Qualified Code(s): E10.10 - Type 1 diabetes mellitus with ketoacidosis without coma (5) UTI (urinary tract infection): QUALIFIERS: Hematuria presence: without hematuria Urinary tract infection type: acute cystitis Qualified Code(s): N30.00 - Acute cystitis without hematuria PLAN: Plan #DKA in the setting of known type 1 diabetes mellitus with noncompliance Was admitted with hyperglycemia and elevated anion gap of 21 and also had large serum acetone anion gap has closed x 2 bicarb is 17 this morning and anion gap is 9. continue insulin drip for now as the bicarb is still low. management as per DKA protocol. To switch to home dose of lantus and high dose sliding scale once bicarb is WNL. #Acute UTI Urinalysis showed evidence of UTI. On IV ceftriaxone. Urine cultures pending. #Poorly controlled hypertension Blood pressure was elevated in the 190s to 200s systolic. She has been noncompliant with her BP meds for about 2 weeks because she could not afford it. Home meds resumed- lisinopril 5mg daily. IV hydralazine as needed. #Debility and weakness: Likely due to DKA and UTI. PT OT on board. For precautions. #Depression with anxiety: On sertraline #GERD: On PPI #Osteoarthritis: on tylenol prn DVT prophylaxis: lovenox Charges/Coding Visit Charges Inpatient E&M: 58143 Subs Hosp L3
--- NOTE | 2024-05-03 10:10 | CASEMGMT ---
Social Work- SW met with pt to complete SDOH. Pt reports that she is employed at [employer]; pt recently cut her hours for work, and will only be working 3 days per week starting in May. Pt will reapply for medicaid at that time, as she was previously over for income. Pt reports that she previously had SNAP benefits, but did not renew last month, as she reports that she did not receive paperwork. Pr plans to reapply. Pt reports that in June, she will begin receiving social security benefits. 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 Pt is aware of [facility] car repair program. Pt recently was connected with PIPP at [facility] who helped pt with her utility bill. Pt reports that she is aware of prescription assistance programs and has used them before. Pt has not used [facility] pharmacy assistance funds, but would be interested. Pt previously was connected with [facility], but was not able to coordinate appointments d/t work. JASMINE provided printed resources and education on the following: Norah Urena, [employer], Food pantries and resources, [facility], medicaid, prescription programs, [facility] [employer]. SW completed referral to [facility]. JASMINE remains available to follow. RENETTA Peña
[2024-05-03 10:24] LABS: Bedside Glucose 121 mg/dL (74-106)
[2024-05-03] MEDS: Pantoprazole Sodium 40 MG in 0.9% Normal Saline (100mL MB+) 100 ML 330 MG IV (10:37)
[2024-05-03] MEDS: Enoxaparin 40 MG/0.4 ML Syringe SC (10:40)
[2024-05-03] MEDS: Sertraline 50 MG Tablet PO (10:41)
[2024-05-03] MEDS: Lisinopril 5 MG Tablet PO (10:41)
--- NOTE | 2024-05-03 10:42 | CASEMGMT ---
JEFFRY TRINIDAD Assessment Face to Face with patient for initial transition planning/care coordination assessment. JEFFRY TRINIDAD introduced self and role at [facility], pt voices understanding. Pt is A&Ox4 and is resting comfortably in bed and is calm. Care providers, pharmacy, and demographics verified. Admitting dx:DKA, UTI, HTN LACE Strata: 2 PCP: Milind Lamb Specialists: Denies. Pt has seen Dr. Mcclendon (Endo) a long time ago. Pt advised that it would be beneficial for the pt to f/u with the carnallite plant operator. Pt was then provided with contact information to get reestablished. Preferred Pharmacy: [facility] Insurance: Pt does not currently has any insurance. Gabriella, pt financial administrative assistant, has already seen the pt and the pt has applied for VIRY Prescription Benefit: None at this time. Will follow for VIRY application status. Pt was also educated about free services such as [facility] LNOK: Joaquim Gomez (Son) Living Arrangements: Pt lives with her son in a single story home with a basement with handrails and 1 step to enter. Pt reports that her laundry is downstairs and that her son helps with this ADLs/IADLs: Reports ind. Son helps with laundry Transportation: Self, son, family. Denies concerns DME: Pt states that she has a working blood glucose monitor and sufficient supplies at home. Pt states that she is able to get affordable supplies through her work. Pt states that she has been able to check her sugar, but has not been able to take her DM medication (Metformin) d/t affordability and not have Rx coverage. Will follow. Pt also has a BP monitor. HHC/SNF: Denies skilled HH history. Denies SNF history or needs. Pt states that she has a history with CCN ETHO/Smoking/ Illicit Drug use: Pt denies smoking and illicit drug use. Pt states that she drinks a glass of wine on occasion. Pt?s goal: Home Plan: Home once medically ready. 6-click is 22. PT/OT pending. Follow Rx costs and VIRY application. At this time, the pt denies the need for HH or OP Tx. Pt also denies the need for CCN again but states that he still has her health assistant softball coach's number if she changes her mind. CM to continue to follow. Hector Engel RN, CM
[2024-05-03 11:21] LABS: Bedside Glucose 108 mg/dL (74-106)
[2024-05-03 12:13] LABS: Bedside Glucose 114 mg/dL (74-106)
[2024-05-03 13:09] LABS: Anion Gap 4 (5-15); BUN 15 mg/dL (7-18); BUN/Creat Ratio 16.6 RATIO (10-20); Calcium,Total 8.6 mg/dL (8.5-10.1); Chloride 117 mmol/L (98-107); EST Glomerular Filtration Rate 67 mL/min (>60); Est Glom Filt Rate - Afr Amer 82 mL/min (>60); Estimated Creatinine Clearance 53.41 ml/min; Glucose 119 mg/dL (74-106); Potassium 3.3 mmol/L (3.5-5.1); Sodium Level 138 mmol/L (136-145)
[2024-05-03 13:49] LABS: Bedside Glucose 114 mg/dL (74-106)
[2024-05-03] MEDS: Insulin Glargine-YFGN 100 UNIT/ML Pen 30 UNIT SC (14:25)
[2024-05-03] MEDS: Insulin Lispro 100 UNIT/ML INSULN.PEN SC ×2 (16:09→21:19)
[2024-05-03] MEDS: Potassium Chloride Oral Tablet 20 MEQ 40 MEQ PO (16:14)
[2024-05-03 16:24] LABS: Bedside Glucose 154 mg/dL (74-106)
[2024-05-03] MEDS: Ondansetron 4 MG/2 ML Vial IV (21:13)
[2024-05-03] MEDS: 0.9% Normal Saline (500mL Bag) 500 ML 15 ML IV (21:19)
[2024-05-03] MEDS: Ceftriaxone 1 GM/50 ML BAG IV (21:21)
[2024-05-03 21:35] LABS: Bedside Glucose 293 mg/dL (74-106)
[2024-05-04] VITALS (7 sets, daily range): BP systolic 94–141; BP diastolic 54–95; PULSE 93–102; RESP 12–19; TEMP 36.6–36.8; O2SAT 96–99; BMI 22.1
[2024-05-04] MEDS: Morphine 2 MG/ML Syringe IV (04:35)
[2024-05-04] MEDS: 0.9% Saline Lock 10 ML Syringe IV (04:35)
[2024-05-04 04:38] LABS: Absolute Lymphocyte Count 1.94 X10^3/uL (0.83-4.51); Absolute Neutrophil Count 2.5 X10^3/uL (2.0-7.7); Basophil# 0.02 X10^3/uL; Basophil% 0.4 % (0-1); Eosinophil# 0.06 X10^3/uL; Eosinophils% 1.2 % (0-5); Hematocrit 29.8 % (37-47); Hemoglobin 10.1 g/dL (12.0-15.0); Lymphocyte # 1.94 X10^3/ul (0.83-4.51); Lymphocyte % 38.9 % (19-41); Mean Corp Hgb Conc 33.9 g/dL (32-36); Mean Corpuscular Hgb 30.1 pg (27.0-32.0); Mean Platelet Vol. 11.1 fl (6.2-12.0); Monocyte# 0.44 X10^3/uL; Monocyte% 8.8 % (0-10); NRBC Flagged by Analyzer 0 % (0-5); Neutrophil # 2.52 X10^3/uL (2.7-7.7); Neutrophil % 50.5 % (47-70); Platelet Count 187 K/mm3 (150-450); RBC Distribution Width CV 13.3 % (11.6-14.6); RBC Distribution Width SD 43.4 fl (35.1-43.9); Red Blood Count 3.35 M/mm3 (4.2-5.4)
[2024-05-04 04:56] LABS: Anion Gap 4 (5-15); BUN 10 mg/dL (7-18); BUN/Creat Ratio 11.6 RATIO (10-20); Calcium,Total 8.6 mg/dL (8.5-10.1); Chloride 115 mmol/L (98-107); Creatinine, Serum 0.86 mg/dL (0.55-1.02); EST Glomerular Filtration Rate 71 mL/min (>60); Est Glom Filt Rate - Afr Amer 86 mL/min (>60); Estimated Creatinine Clearance 56.11 ml/min; Glucose 220 mg/dL (74-106); Potassium 3.7 mmol/L (3.5-5.1); Sodium Level 139 mmol/L (136-145)
[2024-05-04] MEDS: Insulin Lispro 100 UNIT/ML INSULN.PEN SC ×2 (08:26→11:23)
[2024-05-04] MEDS: Pantoprazole Sodium 40 MG in 0.9% Normal Saline (100mL MB+) 100 ML 330 MG IV (08:28)
[2024-05-04] MEDS: Acetaminophen 325 MG Tablet 650 MG PO (08:28)
[2024-05-04] MEDS: Enoxaparin 40 MG/0.4 ML Syringe SC (08:29)
[2024-05-04] MEDS: Sertraline 50 MG Tablet PO (08:29)
[2024-05-04] MEDS: Lisinopril 5 MG Tablet PO (08:29)
[2024-05-04] MEDS: Insulin Glargine-YFGN 100 UNIT/ML Pen 30 UNIT SC (08:29)
[2024-05-04 08:56] LABS: Bedside Glucose 225 mg/dL (74-106)
[2024-05-04 11:42] LABS: Bedside Glucose 176 mg/dL (74-106)
--- NOTE | 2024-05-04 14:23 | DCINST_ITS ---
Discharge Instructions Diet Discharge Diet: 1800 Calorie Control Diet Activity Discharge Activity: Return to Normal Activity Weight Bearing Status: Weight bearing as tolerated Dressing / Incision Call your doctor if you observe: Fever of 101 or Higher, Shortness of breath, Dizziness, Swelling in the ankles and Chest pain Follow Up Care Test Results: Test results from this visit will be discussed in further detail at your follow- up appointment, if applicable. Discharge Plan Admission Admit Date/Time: 05/02/24 23:21 Primary Reason for Your Visit: DKA, UTI Attending Provider: Sanjana Quigley Primary Care Provider: Milind Lamb Consulting Providers: Ciro Fernández Instructions Patient Instructions: Ketoacidosis Ch, ED UTI Fem Ch Discharge Orders/Prescriptions Prescriptions: New lisinopril 5 mg Tablet 5 mg PO DAILY Qty: 30 2RF insulin glargine U-300 conc [Toujeo Max U-300 SoloStar] 300 unit/mL (3 mL) insulin pen 30 unit subcut DAILY Qty: 6 2RF metformin 1,000 mg tablet 1,000 mg PO DAILY Qty: 30 2RF cefdinir 300 mg capsule 300 mg PO BID Qty: 10 0RF Continued (DME) FreeStyle Moncho 2 Sensor Kit See Rx Instructions .Route Qty: 2 5RF Rx Instructions: As directed (DME) lancets [FreeStyle Lancets] 28 gauge misc See Rx Instructions .Route Qty: 100 0RF Rx Instructions: As directed (DME) pen needle, diabetic [BD Ultra-Fine Josefina Pen Needle] 32 gauge x 5/32 needle See Rx Instructions .ROUTE .MEDSUPPLY Qty: 50 5RF Rx Instructions: daily (DME) blood-glucose meter [FreeStyle Lite Meter] Kit See Rx Instructions .Route Qty: 1 0RF Rx Instructions: As directed (DME) lancets [FreeStyle Lancets] 28 gauge misc See Rx Instructions .Route Qty: 100 0RF Rx Instructions: As directed lisinopril 2.5 mg tablet 5 mg PO DAILY sertraline 50 mg tablet 50 mg PO DAILY metformin 1,000 mg tablet 1,000 mg PO DAILY (DME) FreeStyle Lite Strips Strip See Rx Instructions .Route Qty: 100 2RF Rx Instructions: As directed insulin lispro [Humalog KwikPen Insulin] 100 unit/mL Insulin Pen 6 unit subcut TIDAC Qty: 15 3RF No Action insulin glargine U-300 conc [Toujeo Max U-300 SoloStar] 300 unit/mL (3 mL) insulin pen 30 unit subcut QHS Referrals / Follow Up: Milind Lamb MD [Primary Care Provider] - Within 1 Week Wilfrido Mcclendon MD [Med Staff - Courtesy Staff] - Within 2 Weeks (see to establish care for diabetes) Disposition Disposition (needs filled in before D/C Order can be placed): Home, Self Care
--- NOTE | 2024-05-04 14:30 | DS.PCM_ITS ---
Providers Date of Admission: 05/02/24 Date of Discharge: 05/04/24 Primary Care Physician: Dr. Milind Lamb MD Reason For Visit: DKA,UTI, & ACCELERATED HYPERTENSION 2/2 Diagnosis Discharge Diagnosis (1) Generalized weakness: Status: Acute Code(s): R53.1 - Weakness (2) Malaise: Status: Acute Code(s): R53.81 - Other malaise (3) Accelerated hypertension: Status: Acute Code(s): I10 - Essential (primary) hypertension (4) DKA (diabetic ketoacidosis): Status: Acute Code(s): E11.10 - Type 2 diabetes mellitus with ketoacidosis without coma Qualifiers: Diabetes mellitus complication detail: without coma Diabetes mellitus type: type 1 Qualified Code(s): E10.10 - Type 1 diabetes mellitus with ketoacidosis without coma (5) UTI (urinary tract infection): Status: Acute Code(s): N39.0 - Urinary tract infection, site not specified Qualifiers: Hematuria presence: without hematuria Urinary tract infection type: a cute cystitis Qualified Code(s): N30.00 - Acute cystitis without hematuria Plan #DKA in the setting of known type 1 diabetes mellitus with noncompliance * Was admitted with hyperglycemia and elevated anion gap of 21 and also had large serum acetone * anion gap has closed x 2 * bicarb is 17 this morning and anion gap is 9. * continue insulin drip for now as the bicarb is still low. * management as per DKA protocol. To switch to home dose of lantus and high dose sliding scale once bicarb is WNL. * #Acute UTI * Urinalysis showed evidence of UTI. On IV ceftriaxone. Urine cultures pending. #Poorly controlled hypertension * Blood pressure was elevated in the 190s to 200s systolic. She has been noncompliant with her BP meds for about 2 weeks because she could not afford it. * Home meds resumed- lisinopril 5mg daily. IV hydralazine as needed. #Debility and weakness: Likely due to DKA and UTI. PT OT on board. For precautions. #Depression with anxiety: On sertraline #GERD: On PPI #Osteoarthritis: on tylenol prn DVT prophylaxis: lovenox Medications at Discharge Home Medications flash glucose sensor (FreeStyle Moncho 2 Sensor kit) #2 ea 04/11/22 blood-glucose meter (FreeStyle Lite Meter kit) #1 ea 07/28/22 lancets 28 gauge (FreeStyle Lancets) #100 ea 07/28/22 pen needle, diabetic 32 gauge x 5/32 (BD Ultra-Fine Josefina Pen Needle) #50 ea 07/28/22 lancets 28 gauge (FreeStyle Lancets) #100 ea 07/06/23 lisinopril 2.5 mg tablet 5 mg PO DAILY blood pressurre 03/01/24 sertraline 50 mg tablet 50 mg PO DAILY depression 05/02/24 metformin 1,000 mg tablet 1,000 mg PO DAILY diabetes 05/03/24 blood sugar diagnostic (FreeStyle Lite Strips) #100 ea 05/04/24 cefdinir 300 mg capsule 300 mg PO BID #10 caps 05/04/24 insulin glargine 100 unit/mL (3 mL) subcutaneous pen (Basaglar KwikPen U-100 Insulin) 30 unit (0.3 mL) subcut DAILY #15 mL 05/04/24 insulin lispro 100 unit/mL subcutaneous pen (Humalog KwikPen (U-100) Insulin) 6 unit (0.06 mL) subcut TIDAC diabetes #15 mL 05/04/24 lisinopril 5 mg tablet 5 mg PO DAILY #30 tabs 05/04/24 metformin 1,000 mg tablet 1,000 mg PO DAILY #30 tabs 05/04/24 Hospital Course Operations None Procedures None Summary of Care Provided Minutes Spent on Discharge: 55 Hospital Course: Patient is a 64-year-old female with a past medical history as outlined which includes benign essential hypertension and type 1 diabetes mellitus with history of recurrent DKA who was admitted to the ED on 05/02/2024 with complaint of hyperglycemia and generalized weakness as well as malaise. His symptoms are started about 2 days prior to admission. She admitted to not being compliant with her medications for about 2 weeks as she had run out because she could not afford the medications. She had also not been taking her blood pressure medications. On admission blood sugar was 437 and anion gap was 21 with large serum acetone. Urinalysis also showed evidence of UTI. Blood pressure was also markedly elevated at 199/90 and she also has sinus tachycardia. She was admitted to the ICU and managed for acute DKA and a known type I diabetic due to noncompliance as well as UTI and accelerated hypertension due to noncompliance. She was placed on insulin drip per DKA protocol. She was started on IV ceftriaxone. Anion gap eventually closed x 2 and she was switched to subcu Lantus 30 units daily which was her daily dose as well as insulin sliding scale. She was also put back on the lisinopril 5 mg daily. Her blood pressure also normalized. Urine cultures grew mixed gram-positive organisms. Patient felt much better and was able to tolerate a diet. Case management worked with her and help patient feel out her prescription before leaving. She was given a prescription for Lantus 30 units daily as well as p.o. metformin 1000 mg daily which she also was on lisinopril 5 mg daily. She was discharged home on 05/04/2024 and is to follow-up with her primary care doctor within 1 to 2 weeks. She was also referred to endocrinology on outpatient basis for management of her diabetes. Of note she was also discharged on p.o. cefdinir 300 mg twice daily for 5-day course for UTI. Patient seen and examined prior to discharge. She felt much better and had no complaints. She had an uneventful night. Review of symptoms otherwise negative. Labs and vitals reviewed. Home medication reviewed and reconciled. Physical Exam Const alert, oriented x3, no apparent distress and average body habitus General Appearance: cooperative and comfortable Exam Limitations: no limitations HEENT normocephalic, head/scalp atraumatic, hearing grossly normal bilaterally and moist oral mucous membranes Mouth: oral and palatal mucosa normal Eyes PERRL and EOMs intact bilaterally Neck no lymphadenopathy, supple and no JVD Lymph Lymphatic: no lymphadenopathy noted and no lymphedema noted Resp normal respiratory effort, normal air movement, no retractions, no use of accessory muscles and clear to auscultation bilaterally Cardio regular rate, regular rhythm, S1 normal heart sound, S2 normal heart sound and no murmurs GI normal to inspection, nondistended, normoactive bowel sounds, soft to palpation, non-tender and non-distended Extremity normal to inspection, full ROM, normal capillary refill, no clubbing, cyanosis or edema and no calf tenderness General Extremity: no tenderness to palpation of joints or extremities Skin no rashes or lesions noted General Skin Exam: no breakdown Neuro oriented x3, CN's II-XII intact bilaterally, moves all extremities and no focal motor deficits Sensorium / Orientation: awake, alert, oriented to person, oriented to place and oriented to time Speech: speech normal Motor Exam: strength 5/5 throughout and general weakness Psych thought process normal, cooperative and affect normal Appearance: appropriate Weight / BMI Weight Weight: 124 lb 12.506 oz Body Mass Index (BMI) 22.1 ABG / Lab / Microbiology Data 05/04/24 04:30 05/04/24 04:30 Laboratory: Laboratory Results - last 24 hr 05/03/24 16:05: POC Glucose 154 H 05/03/24 21:13: POC Glucose 293 H 05/04/24 04:30: WBC 5.0, RBC 3.35 L, Hgb 10.1 L, Hct 29.8 L, MCV 89.0, MCH 30.1, MCHC 33.9, RDW Std Deviation 43.4, RDW Coeff of Nellie 13.3, Plt Count 187, MPV 11.1, Immature Gran % (Auto) 0.200, Neut % (Auto) 50.5, Lymph % (Auto) 38.9, [place] % (Auto) 8.8, Eos % (Auto) 1.2, Baso % (Auto) 0.4, Absolute Neuts (auto) 2.5, Absolute Lymphs (auto) 1.94, Nucleated RBC % 0, Sodium 139, Potassium 3.7, Chloride 115 H, Carbon Dioxide 20.0 L, Anion Gap 4 L, BUN 10, Creatinine 0.86, Estim Creat Clear Calc 56.11, Est GFR (MDRD) Af Amer 86, Est GFR (MDRD) Non-Af 71, BUN/Creatinine Ratio 11.6, Glucose 220 H, Calcium 8.6 05/04/24 08:24: POC Glucose 225 H 05/04/24 11:23: POC Glucose 176 H Microbiology: Microbiology 05/02/24 21:10 Suprapubic Tap Urine Culture - Final Mixed Gram Positive Organisms D/C Instructions Discharge Diet: 1800 Calorie Control Diet Discharge Activity: Return to Normal Activity Weight Bearing Status: Weight bearing as tolerated Call your doctor if you observe: Fever of 101 or Higher, Shortness of breath, Dizziness, Swelling in the ankles and Chest pain Meaningful Use Info Meaningful Use Meaningful Use Diagnoses (Choose all that apply): None applicable Ischemic Stroke Statin Dosing Therapy Reference: STATIN DOSE THERAPY REFERENCE: * Patients > 75 years receive moderate or high dose statin therapy. * Patients 75 years or YOUNGER should receive HIGH intensity statin dose unless contraindicated. You will be required to document reason for non-treatment if statin daily dose does not meet guidelines. HIGH DOSE STATIN THERAPY DAILY Atorvastatin > than or = to 40 mg Rosuvastatin > than or = to 20 mg Amlodipine + Atorvastatin > than or = to 2.5/40 mg Ezetimibe + Simvastatin 10/80 mg Simvastatin 80mg Discharge Plan Admission Admit Date/Time: 05/02/24 23:21 Primary Reason for Your Visit: DKA, UTI Attending Provider: Sanjana Quigley Primary Care Provider: Milind Lamb Consulting Providers: Ciro eFrnández Instructions Patient Instructions: Ketoacidosis Ch, ED UTI Fem Ch Discharge Orders/Prescriptions Prescriptions: New lisinopril 5 mg Tablet 5 mg PO DAILY Qty: 30 2RF metformin 1,000 mg tablet 1,000 mg PO DAILY Qty: 30 2RF cefdinir 300 mg capsule 300 mg PO BID Qty: 10 0RF insulin glargine [Basaglar KwikPen U-100 Insulin] 100 unit/mL (3 mL) insulin pen 30 unit subcut DAILY Qty: 15 2RF Continued (DME) FreeStyle Moncho 2 Sensor Kit See Rx Instructions .Route Qty: 2 5RF Rx Instructions: As directed (DME) lancets [FreeStyle Lancets] 28 gauge misc See Rx Instructions .Route Qty: 100 0RF Rx Instructions: As directed (DME) pen needle, diabetic [BD Ultra-Fine Josefina Pen Needle] 32 gauge x 5/32 needle See Rx Instructions .ROUTE .MEDSUPPLY Qty: 50 5RF Rx Instructions: daily (DME) blood-glucose meter [FreeStyle Lite Meter] Kit See Rx Instructions .Route Qty: 1 0RF Rx Instructions: As directed (DME) lancets [FreeStyle Lancets] 28 gauge misc See Rx Instructions .Route Qty: 100 0RF Rx Instructions: As directed lisinopril 2.5 mg tablet 5 mg PO DAILY sertraline 50 mg tablet 50 mg PO DAILY metformin 1,000 mg tablet 1,000 mg PO DAILY (DME) FreeStyle Lite Strips Strip See Rx Instructions .Route Qty: 100 2RF Rx Instructions: As directed insulin lispro [Humalog KwikPen Insulin] 100 unit/mL Insulin Pen 6 unit subcut TIDAC Qty: 15 3RF Discontinued insulin glargine U-300 conc [Toujeo Max U-300 SoloStar] 300 unit/mL (3 mL) insulin pen 30 unit subcut QHS Referrals / Follow Up: Milind Lamb MD [Primary Care Provider] - Within 1 Week Wilfrido Mcclendon MD [Med Staff - Courtesy Staff] - Within 2 Weeks (see to establish care for diabetes) Disposition Disposition (needs filled in before D/C Order can be placed): Home, Self Care Charges/Coding Visit Charges Inpatient E&M: 57669 Disch Hosp >30min
--- NOTE | 2024-05-04 14:43 | CASEMGMT ---
Addendum entered by Lizet Engel 05/04/24 15:18: TC to [facility]. Miki states that the medications will cost around 300$ for the pt. RN CM to pt room at this time. Pt states that she cannot afford this and the pt became stressful and upset. Pt was educated about the Rx assistance/ augustin program that [facility] offers to patients once per year. Pt states that she would like to utilize this. Pt is aware that she can only use this once per year. Pt states understanding and wants to proceed. Rx assistance program intervention completed and sent to [facility]. Miki from the pharmacy is aware and states that they will deliver the medications to bedside. Pt RN updated. Pt thanks this RN CM for the help. Pt states that she will also have a ride home today and denies further questions or concerns at this time. Original Note: Pt has an order for DC and new prescriptions were sent to [facility] pharmacy in [place]. This pt does not currently have insurance/ Rx benefits. TC to [facility]. The pharmacist at [facility] states that they utilized discount cards as able and the cost for the medications came over 600$. The most expensive being the Toujeo at 591$. This RN CM contacted Dr. Quigley who states that she will change the Rx to Lantus, and will also send the medications to our pharmacy to see if we can provide the pt with assistance and potentially utilize the augustin program. Once the medications are verified, this RN CM will contact [facility] to determine the medication costs and then f/u with the pt subsequently. Pt RN aware.
== END 2024-05-04 16:32 | disposition home or self-care (01) | DRG 638 ==
LOC: ED 22:45 → ICU 23:29
PROVIDERS: Admitting Provider Internal Medicine; Emergency Provider Emergency Medicine; PCP Family Medicine; Visit Provider Student in an Organized Health Care Education/Training Program
DX: E10.10 Type 1 diabetes mellitus with ketoacidosis without coma (principal); N30.00 Acute cystitis without hematuria; I16.0 Hypertensive urgency; F32.A Depression, unspecified; I10 Essential (primary) hypertension; K21.9 Gastro-esophageal reflux disease without esophagitis; Z79.4 Long term (current) use of insulin; F41.9 Anxiety disorder, unspecified; K59.09 Other constipation; M19.90 Unspecified osteoarthritis, unspecified site; Z91.148 Patient's other noncompliance with medication regimen for other reason; Z79.899 Other long term (current) drug therapy; Z79.84 Long term (current) use of oral hypoglycemic drugs; Z86.16 Personal history of COVID-19; Z87.891 Personal history of nicotine dependence
CPT/HCPCS: 36600; 71046; 80048; 80053; 80307; 81001; 82009; 82077; 82803; 82962; 83036; 83605; 83690; 83735; 83930; 84100; 84443; 84484; 85025; 85379; 87040; 87086; 87088; 93005; 94762; 97110; 97162; 97165; 97535; 97802; 99285; J7030; J7040; A4216; J2405

== ENCOUNTER → 2024-07-20 | Outpatient (CLI) | payer MEDICAID, SELFPAY ==
[2024-07-20 12:58] LABS: AST(SGOT) 4 U/L (15-37); Alanine Aminotransfer ALT/SGPT 11 U/L (13-56); Albumin, Serum 3.7 g/dL (3.2-5.0); Alkaline Phosphatase 91 U/L (45-117); Anion Gap 5 (5-15); BUN 18 mg/dL (7-18); BUN/Creat Ratio 23.7 RATIO (10-20); Calcium,Total 10.2 mg/dL (8.5-10.1); Chloride 104 mmol/L (98-107); Cholesterol 234 mg/dL (200); Creatinine, Serum 0.76 mg/dL (0.55-1.02); EST Glomerular Filtration Rate 82 mL/min (>60); Est Glom Filt Rate - Afr Amer 99 mL/min (>60); Globulin 3.8 g/dL (2.2-4.2); Glucose 101 mg/dL (74-106); High Density Lipoprotein 102 mg/dL; Protein, Total 7.5 g/dL (6.4-8.2); Sodium Level 138 mmol/L (136-145); Triglycerides 63 mg/dL; Very Low Density Lipoprotein 13 mg/dL (5-40)
[2024-07-20 13:29] LABS: Hemoglobin A1c 12.6 % (3.8-5.6)
[2024-07-20 13:31] LABS: Protein, Urine (Random) 11.8 mg/dL (<11.9); Protein:Creat Ratio 218 mg/g CRE (0-200)
== END | disposition home or self-care (01) ==
LOC: MFPLAB 10:54
PROVIDERS: PCP Family Medicine; Referring Provider Family Medicine; Visit Provider Family Medicine
DX: E11.9 Type 2 diabetes mellitus without complications (principal)
CPT/HCPCS: 36415; 80053; 80061; 82570; 83036; 84156

== ENCOUNTER → 2024-10-18 | Outpatient (CLI) | payer MEDICAID, SELFPAY ==
[2024-10-18 16:19] LABS: Microalbumin,Random Urine 34.1 mg/L (NO RANGE EST.)
[2024-10-18 16:44] LABS: Cholesterol 233 mg/dL (<=200); High Density Lipoprotein 74 mg/dL; Low Density Lipoprotein Calc. 136 mg/dL; Triglycerides 115 mg/dL; Very Low Density Lipoprotein 23 mg/dL (5-40); cholesterol:hdl ratio screen 3.13
[2024-10-18 16:48] LABS: ALB/GLOB Ratio 1.4 RATIO (0.9-2.4); AST(SGOT) 13 U/L (<=31); Alanine Aminotransfer ALT/SGPT 10 U/L (<=34); Albumin, Serum 4.7 g/dL (3.4-4.8); Alkaline Phosphatase 94 U/L (35-104); Anion Gap 14 (5-15); BUN 12 mg/dL (4-19); BUN/Creat Ratio 12.4 RATIO (10-20); Calcium,Total 10.3 mg/dL (7.6-11.0); Carbon Dioxide 23.5 mmol/L (21.0-32.0); Chloride 100 mmol/L (98-108); Creatinine, Serum 0.94 mg/dL (0.70-1.20); EST Glomerular Filtration Rate 68 (>60); Globulin 3.3 g/dL (2.2-4.2); Glucose 213 mg/dL (70-99); Potassium 4.1 mmol/L (3.3-5.1); Protein, Total 8.1 g/dL (5.9-8.4); Sodium Level 137 mmol/L (133-145); Total Bilirubin 0.28 mg/dL (0.00-1.30)
== END | disposition home or self-care (01) ==
LOC: MFPLAB 11:41
PROVIDERS: PCP Family Medicine; Referring Provider Family Medicine; Visit Provider Family Medicine
DX: E11.9 Type 2 diabetes mellitus without complications (principal)
CPT/HCPCS: 36415; 80053; 80061; 82043; 82570

== ENCOUNTER 2024-12-08 19:53 | Inpatient (IN) | payer MEDICAID, SELFPAY ==
[2024-12-08 19:55] VITALS: BP 161/71; PULSE 102; RESP 16; TEMP 37.1; O2SAT 100; BMI 23.6
[2024-12-08] MEDS: 0.9% Normal Saline (1000mL) 1,000 ML 999 ML IV (20:00)
[2024-12-08 20:24] LABS: Bedside Glucose > 500 mg/dL (74-106)
--- NOTE | 2024-12-08 20:31 | CT_ITS ---
PROCEDURE: ABDOMEN/PELVIS W IV CONT ONLY 12/08/2024 REASON FOR EXAM: RUQ PAIN TECHNIQUE: Abdomen and pelvis CT with intravenous contrast. Coronal and Sagittal reconstruction series were provided. PATIENT PREPARATION: Per protocol CONTRAST: 98 mL Isovue-300 One or more dose reduction techniques were used (e.g., Automated exposure control, adjustment of the mA and/or kV according to patient size, use of iterative reconstruction technique. RADIATION DOSE SUMMARY: CTDlvol: 7.2 mGy DLP: 619 mGycm COMPARISON: None FINDINGS: Lung bases: Unremarkable Liver: Normal size. No mass. Punctate calcification suggestive of prior granulomatous disease. Gallbladder: Cholelithiasis without pericholecystic fluid or wall thickening. Spleen: Normal size. Punctate calcifications. Pancreas: Normal size without evidence of mass surrounding inflammation or ductal dilation. Adrenals: Unremarkable Kidneys: There is a heterogeneous mass at the lower pole of the left kidney measuring 6.3 x 6.6 x 6.3 cm (AP x TR x CC), which contains hypodensity anteriorly and a punctate hyperdensity inferiorly, possibly a calcification. No hydronephrosis on either side. Bladder: Unremarkable Reproductive Organs: Unremarkable Bowel: No obstruction or inflammation. Normal caliber appendix. Lymph nodes: No significant lymphadenopathy. Vasculature: Unremarkable Bones: Unremarkable Abdominal wall: Tiny fat containing umbilical hernia. CT/Abdomen/Pelvis W IV Cont ONLY IMPRESSION: 1. No acute intra-abdominal abnormality. The appendix is unremarkable. 2. Heterogeneous mass at the lower pole of the left kidney measuring up to 6.6 cm, featuring a segmental region of hypodensity and a possible punctate calcification. Findings are highly worrisome for renal cell carcinoma, though other benign and malignant etiologies such as oncocytoma are also possible. Recommend Urology referral. 3. Cholelithiasis. Yellow Alert: Left kidney mass The critical information above was relayed directly by me by telephone to Miki Nowak on 12/08/2024 at 11:16 pm with readback verification. Reading Location: [id number]
[2024-12-08 20:47] LABS: Blood Gas Specimen Type VEN; O2 Delivery Device Not entered; SITE Not entered; VBG BASE EXCESS -15 mmol/L (-1.0-3.5); VBG Bicarbonate 13 mmol/L (22-26); VBG PO2 31 mmHg (25-40); VBG SO2 47 % (50-70); VBG TCO2 14 mmol/L (23-33); VBG pCO2 31.1 mmHg (41-51); VBG pH 7.21 (7.32-7.42)
[2024-12-08 20:48] LABS: Absolute Neutrophil Count 5.4 X10^3/uL (2.0-7.7); Basophil# 0.05 X10^3/uL; Basophil% 0.6 % (0-1); Eosinophil# 0.07 X10^3/uL; Eosinophils% 0.9 % (0-5); Hematocrit 32.5 % (37-47); Lymphocyte % 22.8 % (19-41); Mean Corp Hgb Conc 33.8 g/dL (32-36); Mean Corpuscular Hgb 29.6 pg (27.0-32.0); Mean Corpuscular Volume 87.4 fL (81-99); Mean Platelet Vol. 12.8 fl (6.2-12.0); Monocyte# 0.61 X10^3/uL; Monocyte% 7.7 % (0-10); NRBC Flagged by Analyzer 0 % (0-5); Neutrophil # 5.35 X10^3/uL (2.7-7.7); Neutrophil % 67.7 % (47-70); Platelet Count 230 K/mm3 (150-450); RBC Distribution Width CV 12.5 % (11.6-14.6); RBC Distribution Width SD 39.8 fl (35.1-43.9); Red Blood Count 3.72 M/mm3 (4.2-5.4); White Blood Count 7.9 K/mm3 (4.4-11.0)
[2024-12-08] MEDS: Insulin Lispro 100 UNIT/ML INSULN.PEN 15 UNIT SC (20:54)
[2024-12-08 21:00] VITALS: BP 148/66; PULSE 92; RESP 20; O2SAT 100
[2024-12-08 21:07] LABS: Bedside Glucose 491 mg/dL (74-106)
[2024-12-08 21:15] LABS: Lipase 49 U/L (13-75)
[2024-12-08 21:26] LABS: BETA-HYDROXYBUTYRATE 7.9 mmol/L (0.0-0.3)
[2024-12-08 21:46] LABS: ALB/GLOB Ratio 1.4 RATIO (0.9-2.4); AST(SGOT) 13 U/L (<=31); Alanine Aminotransfer ALT/SGPT 14 U/L (<=34); Albumin, Serum 4.3 g/dL (3.4-4.8); Alkaline Phosphatase 108 U/L (35-104); Anion Gap 26 (5-15); BUN 27 mg/dL (4-19); BUN/Creat Ratio 19.5 RATIO (10-20); Calcium,Total 9.7 mg/dL (7.6-11.0); Carbon Dioxide 12.2 mmol/L (21.0-32.0); Chloride 90 mmol/L (98-108); Creatinine, Serum 1.36 mg/dL (0.70-1.20); EST Glomerular Filtration Rate 44 (>60); Estimated Creatinine Clearance 35.48 ml/min (50-250); Globulin 3.2 g/dL (2.2-4.2); Glucose 592 mg/dL (70-99); Potassium 4.9 mmol/L (3.3-5.1); Protein, Total 7.5 g/dL (5.9-8.4); Sodium Level 128 mmol/L (133-145); Total Bilirubin 0.25 mg/dL (0.00-1.30)
[2024-12-08 22:00] VITALS: BP 120/58; PULSE 100; RESP 19; O2SAT 99
[2024-12-08] MEDS: Insulin Lispro 100 UNIT in 0.9% Normal Saline (100mL Bag) 99 ML 6 UNIT CONT INF (22:21)
[2024-12-08 22:31] LABS: Bacteria 0 SEEN /hpf (None Seen); Mucous, Urine 0 SEEN /hpf (<or=2+); Red Blood Cells-Urine 0 SEEN /hpf (0-5); Squamous Epithelial Cells - UA 0 SEEN /hpf (5-10); White Blood Cells 0 SEEN /hpf (0-5)
[2024-12-08 22:31] LABS: Bedside Glucose 380 mg/dL (74-106)
[2024-12-08 22:36] LABS: Color, Urine Yellow (Yellow); Glucose, Dipstick 1000 mg/dl (Normal); Leukocyte Esterase-Dipstick Negative /ul (Negative); Nitrite-Dipstick Negative (Negative); Occult Blood-Urine Negative /ul (Negative); Protein-Dipstick 30 mg/dl (Negative); Specific Gravity, Urine 1.015 (1.002-1.030); Urine Bilirubin Dipstick Negative (Negative); Urine Clarity Clear (Clear); Urine Urobilinogen Normal (Normal)
[2024-12-08 22:45] LABS: Ketone-Dipstick 150 mg/dl (Negative)
--- NOTE | 2024-12-08 22:58 | EX.ED.DYSGE1 ---
HPI History of Present Illness Chief Complaint: Hyperglycemia Narrative Narrative: Patient is a 64-year-old female with past medical history of diabetes, hypertension, GERD, alcohol abuse, anxiety, depression who presents to the emergency department chief complaint of nausea vomiting diarrhea. Patient states that she woke up this morning not feeling well overall and notes that she took some insulin this morning but notes that she did not eat much all day as she has had nausea vomiting diarrhea and not feeling well. She states that she was unable to check her glucose secondary to being out of her testing strips. [facility] Medical History Accelerated hypertension DKA (diabetic ketoacidosis) Sinus tachycardia seen on front desk monitor Diabetic ketoacidosis associated with type 1 diabetes mellitus Pyuria Back pain Diabetes Hypokalemia Tobacco use Anxiety and depression ETOH abuse GERD (gastroesophageal reflux disease) HTN (hypertension) Diabetes mellitus, type 2 History of alcoholism COVID-19 Home Medications ?Medication ?Instructions ?Recorded ?Last Taken ?Type flash glucose sensor (FreeStyle #2 ea 04/11/22 Unknown Rx Moncho 2 Sensor kit) blood-glucose meter (FreeStyle #1 ea 07/28/22 Unknown Rx Lite Meter kit) lancets 28 gauge (FreeStyle #100 ea 07/28/22 Unknown Rx Lancets) pen needle, diabetic 32 gauge x #50 ea 07/28/22 Unknown Rx (BD Ultra-Fine Josefina Pen Needle) lancets 28 gauge (FreeStyle #100 ea 07/06/23 Unknown Rx Lancets) sertraline 50 mg tablet 50 mg PO DAILY depression 05/02/24 Unknown History blood sugar diagnostic (FreeStyle #100 ea 05/04/24 Unknown Rx Lite Strips) insulin lispro 100 unit/mL 6 unit (0.06 mL) subcut TIDAC 05/04/24 02/29/24 Rx subcutaneous pen (Humalog KwikPen diabetes #15 mL (U-100) Insulin) lisinopril 5 mg tablet 5 mg PO DAILY #30 tabs 05/04/24 Unknown Rx metformin 1,000 mg tablet 1,000 mg PO DAILY #30 tabs 05/04/24 Unknown Rx insulin glargine U-300 conc 300 40 unit subcut QHS 12/08/24 Unknown History unit/mL (1.5 mL) subcutaneous pen (Toujeo SoloStar U-300 Insulin) rosuvastatin 5 mg tablet 5 mg PO DAILY 12/08/24 Unknown History Allergy/AdvReac Type Severity Reaction Status Date / Time No Known Allergies Allergy Verified 12/08/24 19:54 Family History Mother Diabetes Father Diabetes Cancer Hx mesothelioma. Surgical History Status post tubal ligation Social History household members: other details: Lives with her son. Her son is also an alcoholic. Smoking Status: Former smoker alcohol intake: former details: maybe drinks a glass of wine a day, but does not drink alcohol anymore substance use type: does not use ROS ROS ED ROS Narrative Constitutional: Complains of chills denies fevers, headaches Eyes: Denies change in vision double vision blurry vision Cardiovascular: Denies chest pain Respiratory: Denies coughing wheezing shortness of breath Abdomen: Complains of nausea vomiting diarrhea as noted above : Denies any urinary symptoms Neurological: Denies numbness, wheeze, tingling Musculoskeletal: Denies back pain Skin: Denies any rashes or lesions EXAM Physical Exam Narrative Exam Narrative: General: Patient lying in bed appeared to be uncomfortable not feeling well overall Head: Atraumatic, normocephalic Eyes: PERRL bilaterally, EOMI bilateral, no conjunctival injection noted Neck: Soft, supple, trachea midline Cardiovascular: Regular rate and rhythm Respiratory: Clear to auscultation bilaterally Abdomen: Soft, nondistended, diffuse tenderness to palpation no rebound or guarding on exam Extremities: +5/5 strength noted in the bilateral upper and lower extremities Neurological: Patient follow commands and that she was at [facility] year is 2024 Skin: Warm, dry, tact no rashes or lesions noted Const Vital Signs: 12/08/24 19:54 12/08/24 19:55 12/08/24 19:55 Temperature 98.8 F Temperature Source Oral Oral Pulse Rate 102 H Respiratory Rate 16 Respiratory Effort Normal Non-Labored Respiratory Pattern Normal Blood Pressure 161/71 H Blood Pressure Mean 101 Pulse Ox 100 Oxygen Delivery Method Room Air 12/08/24 21:00 12/08/24 22:00 12/08/24 23:00 Temperature Temperature Source Pulse Rate 92 100 100 Respiratory Rate 20 H 19 H 24 H Respiratory Effort Respiratory Pattern Blood Pressure 148/66 H 120/58 L 116/68 Blood Pressure Mean 93 78 84 Pulse Ox 100 99 100 Oxygen Delivery Method Room Air Room Air Room Air MDM MDM MDM Narrative Medical decision making narrative: Patient is a 64-year-old female who presented to the emergency department chief complaint of nausea vomiting diarrhea and not feeling well. On the differential diagnosis includes but not limited to viral gastroenteritis, upper respiratory infection second viral etiology, viral gastroenteritis, DKA. Once workup is obtained reviewed she will be reevaluated. Patient to get IV fluids for hydration. Patient's blood glucose was noted to be in the 500s she will be given 15 units of subcutaneous insulin. Patient's CBC reviewed showed no evidence leukocytosis white blood count normal at 7.9, hemoglobin stable at 11, platelet count normal at 230. Patient's VBG reviewed and showed a pH 7.21, sodium was low although this is likely secondary to her hyperglycemia indicating pseudohyponatremia, CO2 level low at 12.2 anion gap high at 26. Patient's glucose was 592 creatinine was elevated 1.36. Patient's AST and ALT were 13 and 14 respectively. Patient lipase normal at 49, beta hydroxybutyrate elevated to 7.9. Patient's urinalysis showed 150 ketones no evidence of infection patient will be placed on insulin drip. Patient's CBC reviewed showed no evidence of leukocytosis white blood patient's CT abdomen pelvis IV contrast showed no acute intra-abdominal abnormality. Appendix is unremarkable. Heterogeneous mass at the lower pole of the left kidney measuring up to 6.6 cm featuring a segmental region of hypodensity and possible punctate calcification. Findings highly worrisome for renal cell carcinoma though other benign and malignant etiologies are also possible cholelithiasis. At this point in time we will discuss case with hospitalist for admission for DKA. Nursing notified me that the patient's blood glucose was noted to be 231 therefore she will be started on D5 NS with 40 mill equivalents of potassium at 125 mL with an hour Spoke with hospitalist Dr. Ibrara who accept patient for admission. I discussed the incidental findings with the patient of the renal mass. All question concerns answered. Lab Data Labs: Laboratory Results - last 24 hr 06/10/2912/08/24 12/08/24 20:00 20:49 22:11 WBC 7.9 RBC 3.72 L Hgb 11.0 L Hct 32.5 L MCV 87.4 MCH 29.6 MCHC 33.8 RDW Std Deviation 39.8 RDW Coeff of Nellie 12.5 Plt Count 230 MPV 12.8 H Immature Gran % (Auto) 0.300 Neut % (Auto) 67.7 Lymph % (Auto) 22.8 [place] % (Auto) 7.7 Eos % (Auto) 0.9 Baso % (Auto) 0.6 Absolute Neuts (auto) 5.4 Absolute Lymphs (auto) 1.80 Nucleated RBC % 0 Sodium 128 L Potassium 4.9 Chloride 90 L Carbon Dioxide 12.2 L Anion Gap 26 H BUN 27 H Creatinine 1.36 H Estim Creat Clear Calc 35.48 L Est GFR (MDRD) Non-Af 44 L BUN/Creatinine Ratio 19.5 Glucose 592 H* Calcium 9.7 Total Bilirubin 0.25 AST 13 ALT 14 Alkaline Phosphatase 108 H Total Protein 7.5 Albumin 4.3 Globulin 3.2 Albumin/Globulin Ratio 1.4 Lipase 49 b-Hydroxybutyric mmol/L 7.9 H Urine Color Urine Clarity Urine pH Ur Specific [place] Urine Protein Urine Glucose (UA) Urine Ketones Urine Occult Blood Urine Nitrite Urine Bilirubin Urine Urobilinogen Ur Leukocyte Esterase Urine RBC Urine WBC Ur Squamous Epith Cells Urine Bacteria Urine Mucus POC Glucose > 500 H* 491 H* 380 H 12/08/24 12/08/24 22:25 23:30 WBC RBC Hgb Hct MCV MCH MCHC RDW Std Deviation RDW Coeff of Nellie Plt Count MPV Immature Gran % (Auto) Neut % (Auto) Lymph % (Auto) [place] % (Auto) Eos % (Auto) Baso % (Auto) Absolute Neuts (auto) Absolute Lymphs (auto) Nucleated RBC % Sodium Potassium Chloride Carbon Dioxide Anion Gap BUN Creatinine Estim Creat Clear Calc Est GFR (MDRD) Non-Af BUN/Creatinine Ratio Glucose Calcium Total Bilirubin AST ALT Alkaline Phosphatase Total Protein Albumin Globulin Albumin/Globulin Ratio Lipase b-Hydroxybutyric mmol/L Urine Color Yellow Urine Clarity Clear Urine pH 6.0 Ur Specific [place] 1.015 Urine Protein 30 H Urine Glucose (UA) 1000 H Urine Ketones 150 A* Urine Occult Blood Negative Urine Nitrite Negative Urine Bilirubin Negative Urine Urobilinogen Normal Ur Leukocyte Esterase Negative Urine RBC 0 SEEN Urine WBC 0 SEEN Ur Squamous Epith Cells 0 SEEN Urine Bacteria 0 SEEN Urine Mucus 0 SEEN POC Glucose 231 H ABG Data ABG results: ABG 12/08/24 20:44 Specimen Type LIZY Sample Site Not entered VBG pH 7.21 L VBG pO2 31 VBG HCO3 13 L VBG Total CO2 14 L VBG O2 Sat (Calc) 47 L VBG Base Excess -15 L POC Mix VBG pCO2 Pt Tmp 31.1 L O2 Delivery Device Not entered Radiography Diagnostic Testing: Clinical Impression(s) from Imaging Studies Abdomen/Pelvis CT 12/08/24 20:31 IMPRESSION: 1. No acute intra-abdominal abnormality. The appendix is unremarkable. 2. Heterogeneous mass at the lower pole of the left kidney measuring up to 6.6 cm, featuring a segmental region of hypodensity and a possible punctate calcification. Findings are highly worrisome for renal cell carcinoma, though other benign and malignant etiologies such as oncocytoma are also possible. Recommend Urology referral. 3. Cholelithiasis. Yellow Alert: Left kidney mass The critical information above was relayed directly by me by telephone to Miki Sen on 12/08/2024 at 11:16 pm with readback verification. Reading Location: [facility] Discharge Plan Triage Chief Complaint: Hyperglycemia ED Provider: Miki Sen Dx/Rx/DC Orders Clinical Impression: Diabetic ketoacidosis, Abnormal computed tomography of abdomen and pelvis Prescriptions: No Action (DME) FreeStyle Moncho 2 Sensor Kit See Rx Instructions .Route Qty: 2 5RF Rx Instructions: As directed (DME) lancets [FreeStyle Lancets] 28 gauge misc See Rx Instructions .Route Qty: 100 0RF Rx Instructions: As directed (DME) pen needle, diabetic [BD Ultra-Fine Josefina Pen Needle] 32 gauge x 5/32 needle See Rx Instructions .ROUTE .MEDSUPPLY Qty: 50 5RF Rx Instructions: daily (DME) blood-glucose meter [FreeStyle Lite Meter] Kit See Rx Instructions .Route Qty: 1 0RF Rx Instructions: As directed (DME) lancets [FreeStyle Lancets] 28 gauge misc See Rx Instructions .Route Qty: 100 0RF Rx Instructions: As directed sertraline 50 mg tablet 50 mg PO DAILY lisinopril 5 mg Tablet 5 mg PO DAILY Qty: 30 2RF metformin 1,000 mg tablet 1,000 mg PO DAILY Qty: 30 2RF (DME) FreeStyle Lite Strips Strip See Rx Instructions .Route Qty: 100 2RF Rx Instructions: As directed insulin lispro [Humalog KwikPen Insulin] 100 unit/mL Insulin Pen 6 unit subcut TIDAC Qty: 15 3RF insulin glargine U-300 conc [Toujeo SoloStar U-300 Insulin] 300 unit/mL (1.5 mL) insulin pen 40 unit subcut QHS rosuvastatin 5 mg tablet 5 mg PO DAILY Primary Care Provider: Milind Lamb Referrals: Milind Lamb MD [Primary Care Provider] - Print Language: Yakut Disposition Disposition: Acute Care Hospital [facility]
[2024-12-08 23:00] VITALS: BP 116/68; PULSE 100; RESP 24; O2SAT 100
[2024-12-08 23:50] LABS: Bedside Glucose 231 mg/dL (74-106)
[2024-12-09] VITALS (20 sets, daily range): BP systolic 93–150; BP diastolic 52–85; PULSE 82–99; RESP 12–23; TEMP 36.2–37.2; O2SAT 97–100; BMI 22.6
--- NOTE | 2024-12-09 00:10 | PCM.HP.STD ---
HPI - General General Date of Admission: 12/09/24 Date of Service: 12/09/24 Chief Complaint: N/V/D HPI Narrative The patient is a 64 y/o F w/ PMHx: IDDM, Anxiety and Depression, Former tobacco use, Chart reported history of EtOH abuse, HTN, HLD, GERD who presents to the [facility] ED on 12/09/2024 with history of 24 hours of persistent nausea, emesis and loose stools noting that she woke the morning previous feeling poorly and did take insulin in the morning but did not eat much all day and had persistent symptoms unfortunately she did not check her blood sugars as she said she was unable to find any strips and given how she continued to feel unwell prompted eventual ED evaluation to be cautious. She notes she had at least 6 loose stools. She notes an emesis occurred only once but she has had persistent nausea. She denies any recent ill contacts. She notes she has not recently eaten out or had any food that she thought was bad. Workup in the ED included T98.8, heart 102, BP 161/71, respiratory rate 16, height percent on room air with most recent repeat vitals heart rate 100, BP 160/68, respiratory rate 24, 100% on room air, CBC with WBC 7.9, hemoglobin, MCV 87.4, platelet 230 without marked shift, VBG with pH 7.21, bicarb 13, total CO2 14, CMP with sodium 120, chloride 90, carbon oxide 12.2, anion gap 26, BUN/creatinine 27/1.36, GFR 44, glucose 592, alk phos 108, beta hydroxybutyrate 7.9, urinalysis with protein 30, glucose of thousand, ketone 150, CT abdomen and pelvis with no acute intra-abdominal findings however there is a heterogeneous mass at the lower pole of the left kidney measuring 6.6 cm featuring a segmental region of hypodensity possibly punctate calcification worrisome for renal cell carcinoma. In the ED patient ministered 1 L normal saline, insulin 15 units subcu x 1 and eventually placed on insulin drip. [facility] Medical History Sinus tachycardia seen on nurse monitoring Back pain Tobacco use Anxiety and depression GERD (gastroesophageal reflux disease) HTN (hypertension) Diabetes mellitus, type 2 History of alcoholism COVID-19 Home Medications ?Medication ?Instructions ?Recorded ?Last Taken ?Type flash glucose sensor (FreeStyle #2 ea 04/11/22 Unknown Rx Moncho 2 Sensor kit) blood-glucose meter (FreeStyle #1 ea 07/28/22 Unknown Rx Lite Meter kit) lancets 28 gauge (FreeStyle #100 ea 07/28/22 Unknown Rx Lancets) pen needle, diabetic 32 gauge x #50 ea 07/28/22 Unknown Rx 5/32 (BD Ultra-Fine Josefina Pen Needle) lancets 28 gauge (FreeStyle #100 ea 07/06/23 Unknown Rx Lancets) sertraline 50 mg tablet 50 mg PO DAILY depression 05/02/24 Unknown History blood sugar diagnostic (FreeStyle #100 ea 05/04/24 Unknown Rx Lite Strips) insulin lispro 100 unit/mL 6 unit (0.06 mL) subcut TIDAC 05/04/24 02/29/24 Rx subcutaneous pen (Humalog KwikPen diabetes #15 mL (U-100) Insulin) lisinopril 5 mg tablet 5 mg PO DAILY #30 tabs 05/04/24 Unknown Rx metformin 1,000 mg tablet 1,000 mg PO DAILY #30 tabs 05/04/24 Unknown Rx insulin glargine U-300 conc 300 40 unit subcut QHS 12/08/24 Unknown History unit/mL (1.5 mL) subcutaneous pen (Toujeo SoloStar U-300 Insulin) rosuvastatin 5 mg tablet 5 mg PO DAILY 12/08/24 Unknown History Allergy/AdvReac Type Severity Reaction Status Date / Time No Known Allergies Allergy Verified 12/08/24 19:54 Family History Mother Diabetes Father Diabetes Cancer Hx mesothelioma. Surgical History Status post tubal ligation Social History household members: other details: Lives with her son. Her son is also an alcoholic. Smoking Status: Former smoker alcohol intake: current alcohol intake frequency: 0-2 drinks per day Alcohol type: wine details: Prior heavy EtOH abuse, now max 1 glass wine, last 2 wks prior (12/09/24) substance use type: does not use ROS ROS Narrative Admission Review of Systems: CONSTITUTIONAL: No weight loss, fever, chills, + weakness or fatigue. HEENT: Eyes: No visual loss, blurred vision, double vision or yellow sclerae. Ears, Nose, Throat: No hearing loss, sneezing, congestion, runny nose or sore throat. SKIN: No rash or itching, lesions, wounds. CARDIOVASCULAR: No chest pain, chest pressure or chest discomfort, palpitations, edema, orthopnea, syncopal events. RESPIRATORY: No shortness of breath, cough or sputum, wheezing, hemoptysis. GASTROINTESTINAL: + anorexia, nausea, vomiting, diarrhea. No abdominal pain, melena, BRBPR. GENITOURINARY: No dysuria, frequency, urgency or retention. NEUROLOGICAL: No headache, dizziness, syncope, paralysis, ataxia, numbness or tingling in the extremities, focal weakness, change in bowel or bladder control, seizure. MUSCULOSKELETAL: + muscle, back pain, joint pain or stiffness. HEMATOLOGIC: + Chronic anemia. No marked easy history of bleeding or bruising. LYMPHATICS: No enlarged nodes. No history of splenectomy. PSYCHIATRIC: + History of anxiety and depression. ENDOCRINOLOGIC: No reports of sweating, cold or heat intolerance. No polyuria or polydipsia. ALLERGIES: No history of asthma, hives, eczema or rhinitis. Vital Signs Vital Signs Vital Signs: 12/08/24 19:54 12/08/24 19:55 12/08/24 19:55 Temperature 98.8 F Temperature Source Oral Oral Pulse Rate 102 H Respiratory Rate 16 Respiratory Effort Normal Non-Labored Respiratory Pattern Normal Blood Pressure 161/71 H Blood Pressure Mean 101 Pulse Ox 100 Oxygen Delivery Method Room Air 12/08/24 21:00 12/08/24 22:00 12/08/24 23:00 Temperature Temperature Source Pulse Rate 92 100 100 Respiratory Rate 20 H 19 H 24 H Respiratory Effort Respiratory Pattern Blood Pressure 148/66 H 120/58 L 116/68 Blood Pressure Mean 93 78 84 Pulse Ox 100 99 100 Oxygen Delivery Method Room Air Room Air Room Air Weight Weight: 133 lb 2.547 oz Body Mass Index (BMI) 23.6 Physical Exam Narrative Physical Examination: General: Awake, alert, oriented x 3 and cooperative, laying in the ED bed, fatigued and ill-appearing. Skin: Normal color, normal turgor, no icterus, no cyanosis except occasional abrasion. HEENT: AT/NC, EOMI, PERRLA, dry MM, no carotid bruits or JVD noted. Lungs: Mildly diminished, greater bases, appropriate effort, ible. Abdomen: Soft, NTTP, ND, hyperactive BS, no HSM. Extremities: No cyanosis, clubbing, or edema. Neurological: Patient awake, alert, oriented as noted, cognitive function intact; pupils equally reactive to light and accommodation, cranial nerves grossly normal, moving all 4 extremities, no focal deficits, strength moderately to severely globally decreased secondary to acute presentation complaints Psychiatric: Affect appears flat, fatigued, ill-appearing, no acute evidence of depressive or anxiety feelings but does have underlying history. Results Lab / Micro Data 12/08/24 20:00 12/08/24 20:00 Labs: Laboratory Results - last 24 hr 12/08/24 20:00: WBC 7.9, RBC 3.72 L, Hgb 11.0 L, Hct 32.5 L, MCV 87.4, MCH 29.6, MCHC 33.8, RDW Std Deviation 39.8, RDW Coeff of Nellie 12.5, Plt Count 230, MPV 12.8 H, Immature Gran % (Auto) 0.300, Neut % (Auto) 67.7, Lymph % (Auto) 22.8, [place] % (Auto) 7.7, Eos % (Auto) 0.9, Baso % (Auto) 0.6, Absolute Neuts (auto) 5.4, Absolute Lymphs (auto) 1.80, Nucleated RBC % 0, Sodium 128 L, Potassium 4.9, Chloride 90 L, Carbon Dioxide 12.2 L, Anion Gap 26 H, BUN 27 H, Creatinine 1.36 H, Estim Creat Clear Calc 35.48 L, Est GFR (MDRD) Non-Af 44 L, BUN/Creatinine Ratio 19.5, Glucose 592 H*, Calcium 9.7, Total Bilirubin 0.25, AST 13, ALT 14, Alkaline Phosphatase 108 H, Total Protein 7.5, Albumin 4.3, Globulin 3.2, Albumin/Globulin Ratio 1.4, Lipase 49, b-Hydroxybutyric mmol/L 7.9 H, POC Glucose > 500 H* 12/08/24 20:49: POC Glucose 491 H* 12/08/24 22:11: POC Glucose 380 H 12/08/24 22:25: Urine Color Yellow, Urine Clarity Clear, Urine pH 6.0, Ur Specific [place] 1.015, Urine Protein 30 H, Urine Glucose (UA) 1000 H, Urine Ketones 150 A*, Urine Occult Blood Negative, Urine Nitrite Negative, Urine Bilirubin Negative, Urine Urobilinogen Normal, Ur Leukocyte Esterase Negative, Urine RBC 0 SEEN, Urine WBC 0 SEEN, Ur Squamous Epith Cells 0 SEEN, Urine Bacteria 0 SEEN, Urine Mucus 0 SEEN 12/08/24 23:30: POC Glucose 231 H ABG Data ABG results: ABG 12/08/24 20:44 Specimen Type LIZY Sample Site Not entered VBG pH 7.21 L VBG pO2 31 VBG HCO3 13 L VBG Total CO2 14 L VBG O2 Sat (Calc) 47 L VBG Base Excess -15 L POC Mix VBG pCO2 Pt Tmp 31.1 L O2 Delivery Device Not entered Imaging Radiology Impression Abdomen/Pelvis CT 12/08/24 20:31 IMPRESSION: 1. No acute intra-abdominal abnormality. The appendix is unremarkable. 2. Heterogeneous mass at the lower pole of the left kidney measuring up to 6.6 cm, featuring a segmental region of hypodensity and a possible punctate calcification. Findings are highly worrisome for renal cell carcinoma, though other benign and malignant etiologies such as oncocytoma are also possible. Recommend Urology referral. 3. Cholelithiasis. Yellow Alert: Left kidney mass The critical information above was relayed directly by me by telephone to Miki Sen on 12/08/2024 at 11:16 pm with readback verification. Reading Location: [id number] Assessment & Plan Assessment/Plan (1) Diabetic ketoacidosis: PLAN: Plan The patient is a 64 y/o F w/ PMHx: IDDM, Anxiety and Depression, Former tobacco use, Chart reported history of EtOH abuse, HTN, HLD, GERD who presents to the [facility] ED on 12/09/2024 with history of persistent nausea, emesis and loose stools noting that she woke the morning previous feeling poorly and did take insulin in the morning but did not eat much all day and had persistent symptoms unfortunately she did not check her blood sugars as she said she was unable to find any strips and given how she continued to feel unwell prompted eventual ED evaluation to be cautious. #1. IDDM with DKA: Will admit to the ICU, continue on insulin drip, check serial K+, glucose w/ IVF changes pending these levels, serial chemistry, obtain mag, phos daily w/ repletion as needed, transition to home SC regimen when gap closed w/ overlap on drip, nutrition consultation. Encouraged diet and insulin regimen compliance. Hemoglobin A1c requested. #2. N/V/D, possible acute gastroenteritis: Will continue hydration, will obtain c diff, stool cx, O+P with repeat AM CBC, will have anti-emetics and if all studies are unremarkable will initiate loperamide regimen if needed. #3. Acute renal insufficiency/elevated creatinine on CKD stage II per previous GFR trending: Likely secondary to #1 and GI losses as noted, admission BUN/creatinine 27/1.36, GFR 44, normally previously more consistent with stage II, baseline creatinine previously noted 0.8-1.0, will continue evaluation and treatment as noted above, repeat BMP serially given #1 and CMP in AM. #4. Incidentally noted heterogeneous mass in the left kidney: CT scan of the abdomen and pelvis with heterogeneous mass of the lower pole of the left kidney measuring 6.6 cm featuring a segmental region of hypodensity with possible punctate calcifications worrisome for renal cell carcinoma. Will need follow-up with urology. #5. Chronic normocytic anemia: Admission 11.0, MCV 87.4, baseline hemoglobin most recent noted 10-11, stable, continue to trend. #6. Anxiety and depression: Will continue patient on sertraline regimen. #7. Hypertension: Given renal insufficiency will temporally hold lisinopril, add back once appropriate, PRN IV hydralazine. #8. Hyperlipidemia: Will continue patient on statin therapy. #9. Former tobacco use: Encourage continued tobacco cessation. #10. Former heavy alcohol abuse: Patient reports occasional glass of wine, last noted 2 weeks previous, given her history would benefit from complete sobriety. #11. GERD: Will maintain on IV PPI given #1. #12. DVT prophylaxis: Lovenox. Charges/Coding Visit Charges Inpatient E&M: 82785 Init Hosp L3
[2024-12-09] MEDS: Potassium Chloride 40 MEQ in Dextrose 5%/0.9% NaCl 1,000 ML 125 MEQ IV (00:11)
--- OUTSIDE RECORDS SUMMARY | 2024-12-09 00:36 | XMS RPT_ITS | CCD ---
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 Milind Lamb Primary Care Provider Dr. Hung Bagley Emergency Provider Dr. Zelda Ibarra Admit Provider Dr. Zelda Ibarra Other Provider Dr. Mark Gunn Attending Provider Dr. Mark Gunn Other Provider Dr. Audrey Sandoval Other Provider Dr. Audrey Sandoval Attending Provider Dr. Zelda Ibarra Referring Provider Dr. Milind Lamb Referring Provider Dr. Wilfrido Mcclendon Attending Provider Dr. Milind Lamb Primary Care Provider Dr. Milind Lamb Referring Provider Dr. Wilfrido Mcclendon Attending Provider Dr. Steven Voss Emergency Provider Dr. Sanjiv Ahumada Admit Provider Dr. Sanjiv Ahumada Attending Provider Dr. Sanjiv Ahumada Other Provider Dr. Milind Lamb Primary Care Provider Dr. Steven Voss Emergency Provider Dr. Torsten Sutton Admit Provider Dr. Torsten Sutton Attending Provider Herman, Dr. Sarmiento Other Provider Dr. Sanjana Quigley Attending Provider Soraida, Dr. Sanjana Beltran Other Provider Adonis RICH, Dr. Vaz Primary Care Provider [phone] Adonis RICH, Dr. Vaz Referring Provider Nasir Norris Attending Provider Adonis RICH, Dr. Vaz Attending Provider Harry Medrano Consulting Unavailable Harry Medrano Admitting Unavailable KoHrary nieto F Attending Unavailable Lamb, Milind Primary Care Unavailable Lamb, Milind Primary Care Unavailable Lamb, Milind Referring Unavailable Lamb, Milind Attending Unavailable Lamb, Milind Primary Care Unavailable Lamb, Milind Referring Unavailable Lamb, Milind Attending Unavailable Ciro Fernández Consulting Unavailable Ciro Fernández Admitting Unavailable Koram, Sanjana Beltran Attending Unavailable Lamb, Milind Primary Care Unavailable KotsmarisolsHarry Admitting Unavailable KotsoniHarry العراقي Attending Unavailable Lamb, Milind Primary Care Unavailable de Darrell, Ciro Attending Unavailable de Ciro Ramírez Consulting Unavailable Ciro Fernández Admitting Unavailable Lamb, Milind Primary Care Unavailable Nasir Norris Attending Unavailable Lamb, Milind Primary Care Unavailable Lamb, Milind Referring Unavailable Koram, Sanjana Beltran Attending Unavailable Koram, Sanjana Beltran Consulting Unavailable Medications Current Medications Medication Drug Class(es) Dates Sig (Normalized) Sig (Original) Blood-Glucose Meter (Freestyle Lite Meter) kit (8 sources) Start: 07-28-2022 Blood-Glucose Meter (Freestyle Lite Meter) kit Active 0 .Route July 28, 2022 1:00am As directed Start: 07-28-2022 Blood-Glucose Meter (Freestyle Lite Meter) kit Active 0 .Route July 28, 2022 12:00am As directed cefdinir 300 mg oral capsule (1 source) Cephalosporin Antibacterial Start: 05-04-2024 take 1 capsule by mouth twice daily Cefdinir 300 mg capsule Active 300 mg PO TWICE A DAY May 04, 2024 12:00am Flash Glucose Sensor (Freestyle Moncho 2 Sensor) kit (13 sources) Start: 04-11-2022 Flash Glucose Sensor (Freestyle Moncho 2 Sensor) kit Active 0 .Route 2 April 10, 2022 11:00pm As directed Start: 04-11-2022 Flash Glucose Sensor (Freestyle Moncho 2 Sensor) kit Active 0 .Route 2 April 11, 2022 12:00am As directed 12 hr guaiFENesin 600 mg extended release oral tablet (2 sources) Start: 05-03-2022 take 1 tablet by mouth every twelve hours, then take 1 tablet by mouth every twelve hours Guaifenesin (Mucinex) 600 mg tablet extended release 12hr Active 600 MG PO Q12H May 03, 2022 12:00am 3 ml insulin glargine 100 unt/ml pen injector (20 sources) Insulin Analog Start: 05-04-2024 Insulin Glargi ne (Basaglar Kwikpen U-100 Insulin) 100 unit/mL (3 mL) insulin pen Active 30 U SC DAILY May 04, 2024 12:00am Start: 07-06-2023 End: 07-06-2023 Insulin Glargine U-300 Conc (Toujeo Solostar U-300 Insulin) 300 unit/mL (1.5 mL) insulin pen Discontinued 30 U SC AT BEDTIME July 06, 2023 12:54pm July 06, 2023 12:56pm Start: 07-06-2023 Insulin Glargi ne U-300 Conc (Toujeo Max U-300 Solostar) 300 unit/mL (3 mL) insulin pen Active 30 UNIT SC DAILY July 06, 2023 12:00am Start: 07-05-2023 End: 07-06-2023 Insulin Glargine U-300 Conc (Toujeo Solostar U-300 Insulin) 300 unit/mL (1.5 mL) insulin pen Discontinued 40 U SC AT BEDTIME July 05, 2023 1:10pm July 06, 2023 12:54pm Start: 07-02-2023 End: 07-05-2023 inject 1.5 mL by subcutaneous injection at bedtime Insulin Glargine U-300 Conc [Insulin Glargine U-300 Conc 300 Unit/Ml (1.5 Ml) Subcutaneous Pen] (Insulin Glargine U-300 Conc 300 Unit/Ml (1.5 Ml) ) 300 unit/mL (1.5 mL) insulin pen Discontinued 40 U SC AT BEDTIME July 02, 2023 1:00am July 05, 2023 1:10pm Start: 07-28-2022 End: 07-05-2023 Insulin Glargine U-300 Conc (Toujeo Max U-300 Solostar) 300 unit/mL (3 mL) insulin pen Discontinued 20 U SC TWICE A DAY July 28, 2022 3:06pm July 05, 2023 1:07pm Start: 04-11-2022 End: 07-28-2022 Insulin Glargine U-300 Conc (Toujeo Max U-300 Solostar) 300 unit/mL (3 mL) insulin pen Discontinued 20 U SC DAILY July 26, 2022 1:29pm July 28, 2022 3:06pm Start: 06-19-2020 End: 03-06-2022 Insulin Glargine U-300 Conc 300 UNIT/ML insulin pen Discontinued 45 U SQ AT BEDTIME June 19, 2020 1:00am March 06, 2022 9:11am lidocaine 0.05 mg/mg medicated patch (2 sources) Antiarrhythmic, Amide Local Anesthetic Start: 03-06-2022 apply 1 dose topically once daily Lidocaine Active 1 PATCH TOPICAL DAILY 7 7 March 06, 2022 12:00am lisinopril 5 mg oral tablet (19 sources) Angiotensin Converting Enzyme Inhibitor Start: 05-04-2024 take 1 tablet by mouth once daily Lisinopril 5 mg Tablet Active 5 mg PO DAILY May 04, 2024 12:00am Start: 03-01-2024 take 2 tablets by mo [facility] once daily Lisinopril 2.5 mg tablet Active 5 mg PO DAILY March 01, 2024 12:00am Start: 07-14-2019 End: 03-01-2024 take 1 tablet by mouth once daily Lisinopril 2.5 mg tablet Discontinued 2.5 mg PO DAILY July 05, 2023 1:10pm March 01, 2024 6:09am metFORMIN hydrochloride 1000 mg oral tablet (20 sources) Biguanide Start: 05-03-2024 take 1 tablet by mouth once daily Metformin 1,000 mg tablet Active 1000 mg PO DAILY May 04, 2024 12:00am Start: 07-05-2023 End: 05-03-2024 take 1 tablet by mouth twice daily Metformin 1,000 mg tablet Discontinued 1000 mg PO TWICE A DAY 60 July 05, 2023 1:00am May 03, 2024 12:04am Start: 06-19-2020 End: 07-28-2022 take 1 tablet by mouth twice daily Metformin 1,000 mg tablet Discontinued 1000 mg PO TWICE A DAY July 26, 2022 1:25pm July 28, 2022 3:03pm pantoprazole 40 mg delayed release oral tablet (2 sources) Proton Pump Inhibitor Start: 03-06-2022 take 40 mg by mouth twice daily Pantoprazole Active 40 MG PO TWICE A DAY 60 March 06, 2022 12:00am sertraline 50 mg oral tablet (20 sources) Serotonin Reuptake Inhibitor Start: 05-02-2024 take 1 tablet by mouth once daily Sertraline 50 mg tablet Active 50 mg PO DAILY May 02, 2024 12:00am Start: 07-26-2022 End: 03-01-2024 take 1 tablet by mouth once daily Sertraline 100 mg tablet Discontinued 100 mg PO DAILY July 26, 2022 1:00am March 01, 2024 6:09am Start: 07-14-2019 End: 07-26-2022 take 2 tablets by mouth once daily Sertraline 50 mg tablet Discontinued 100 mg PO DAILY July 14, 2019 1:00am July 26, 2022 1:28pm Start: 07-14-2019 End: 07-26-2022 take 100 mg by mouth once daily Sertraline Discontinue d 100 MG PO DAILY July 14, 2019 12:00am July 26, 2022 12:28pm Completed/Discontinued Medications Medication Drug Class(es) Dates Sig (Normalized) Sig (Original) acetaminophen 325 mg / HYDROcodone bitartrate 5 mg oral tablet (6 sources) Opioid Agonist Start: 07-01-2023 End: 07-02-2023 Hydrocodone-Acetami nophen 5-325 mg tablet Discontinued 1 {tbl} PO EVERY 6 HOURS NEEDED as needed for Pain 06 08July 01, 2023 July 023 10:26pm Start: 07-01-2023 End: 07-02-2023 take 1 tablet by mouth every six hours as needed Hydrocodone-Acetaminophen Discontinued 1 TABLET PO EVERY 6 HOURS NEEDED 06 08July 01, 2023 July 02, 2023 9:26pm diazePAM 2 mg oral tablet (6 sources) Benzodiazepine Start: 07-01-2023 End: 03-01-2024 take 1 tablet by mouth three times daily as needed for pain Diazepam 2 mg tablet Discontinued 2 mg PO 3 TIMES DAILY NEEDED as needed for back pain July 01, 2023 1:00am March 01, 2024 6:09am dicyclomine hydrochloride 10 mg oral capsule (5 sources) Anticholinergic Start: 07-02-2023 End: 07-02-2023 take 2 capsules by mouth three times daily before mealtime Dicyclomine 10 mg capsule Discontinued 20 mg PO THREE TIMES DAILY BEFORE MEALS July 02, 2023 1:00am July 02, 2023 10:26pm Start: 07-02-2023 End: 07-02-2023 take 20 mg by mouth three times daily before mealtime Dicyclomine Discontinued 20 MG PO THREE TIMES DAILY BEFORE MEALS July 02, 2023 12:00am July 02, 2023 9:26pm empagliflozin 25 mg oral tablet (18 sources) Sodium-Glucose Cotransporter 2 Inhibitor Start: 07-02-2023 End: 07-05-2023 Empagliflozin (Empagliflozin 25 Mg Tablet) 25 mg tablet Discontinued mg July 02, 2023 1:00am July 05, 2023 1:07pm Start: 07-24-2021 End: 03-06-2022 take 1 tablet by mouth once daily Empagliflozin (Jardiance) 25 mg tablet Discontinued 25 mg PO DAILY July 24, 2021 1:00am March 06, 2022 9:11am glimepiride 2 mg oral tablet (20 sources) Sulfonylurea Start: 04-11-2022 End: 07-28-2022 take 1 tablet by mouth twice daily Glimepiride 2 mg tablet Discontinued 2 mg PO TWICE A DAY July 26, 2022 1:25pm July 28, 2022 3:02pm Start: 07-24-2021 End: 03-06-2022 take 1 tablet by mouth once daily Glimepiride 2 mg tablet Discontinued 2 mg PO DAILY July 24, 2021 1:00am March 06, 2022 9:11am Insulin Glargine U-300 Conc (Toujeo Max U-300 Solostar) 300 unit/mL (3 mL) insulin pen (2 sources) Start: 03-01-2024 End: 05-04-2024 Insulin Glargine U-300 Conc (Toujeo Max U-300 Solostar) 300 unit/mL (3 mL) insulin pen Discontinued 30 U SC AT BEDTIME March 01, 2024 12:00am May 04, 2024 2:47pm Start: 07-06-2023 End: 03-01-2024 Insulin Glargine U-300 Conc (Toujeo Max U-300 Solostar) 300 unit/mL (3 mL) insulin pen Discontinued 30 U SC DAILY July 06, 2023 1:00am March 01, 2024 6:09am Insulin Glargine-Yfgn (14 sources) Start: 03-06-2022 End: 04-11-2022 Insulin Glargine-Yfgn 100 un it/mL (3 mL) Insulin Pen Discontinued 15 U SC AT BEDTIME 0 March 06, 2022 12:00am April 11, 2022 8:34am Start: 03-06-2022 End: 04-11-2022 Insulin Glargine-Yfgn Discon tinued 15 UNIT SC AT BEDTIME 0 March 05, 2022 11:00pm April 11, 2022 7:34am Start: 03-06-2022 End: 04-11-2022 Insulin Glargine-Yfgn Discon tinued 15 UNIT SC AT BEDTIME 0 March 06, 2022 12:00am April 11, 2022 8:34am Start: 03-06-2022 Insulin Glargi ne-Yfgn Active 15 UNIT SC AT BEDTIME 0 March 06, 2022 12:00am 3 ml insulin lispro 100 unt/ml pen injector (20 sources) Insulin Analog Start: 07-02-2023 End: 07-06-2023 inject 6 [IU] by subcutaneous injection at mealtime Insulin Lispro (Insulin Lispro 100 Unit/Ml Subcutaneous Cartridge) 100 unit/mL cartridge Discontinued U SC .COMPLEX July 02, 2023 1:00am July 06, 2023 12:44pm 6 units subcutaneously with meals; with meals Start: 07-28-2022 End: 05-04-2024 Insulin Lispro (Humalog Kwik pen Insulin) 100 unit/mL insulin pen Discontinued 6 U SC THREE TIMES A DAY July 05, 2023 1:00am March 01, 2024 6:09am naproxen 500 mg oral tablet (10 sources) Nonsteroidal Anti-inflammatory Drug Start: 07-26-2022 End: 03-01-2024 take 1 tablet by mouth once daily as needed for pain Naproxen 500 mg tablet Discontinued 500 mg PO DAILY as needed for Pain July 26, 2022 1:00am March 01, 2024 6:08am ondansetron 4 mg disintegrating oral tablet (5 sources) Serotonin-3 Receptor Antagonist Start: 07-02-2023 End: 07-02-2023 take 1 tablet by mouth every eight hours as needed for nausea Ondansetron 4 mg tablet,disintegra ting Discontinued 4 mg PO EVERY 8 HOURS NEEDED as needed for Nausea July 02, 2023 1:00am July 02, 2023 10:26pm potassium chloride 20 meq extended release oral tablet (17 sources) Start: 03-05-2024 End: 05-02-2024 take 1 tablet by mouth twice daily Potassium Chloride 20 mEq tablet extended release Discontinued 20 meq PO TWICE A DAY March 05, 2024 12:00am May 02, 2024 8:52pm Start: 03-06-2022 Potassium Chlo ride (Klor-Con M20) 20 mEq tablet,ER particles/crystals Active 40 MEQ PO TWICE A DAY 20 March 06, 2022 12:00am Start: 07-28-2021 End: 03-06-2022 Potassium Chloride (Klor-Con M20) 20 mEq tablet,ER particles/crystals Discontinued 40 meq PO DAILY 14 July 28, 2021 1:00am March 06, 2022 9:11am predniSONE 20 mg oral tablet (14 sources) Start: 06-19-2020 End: 06-24-2020 take 2 tablets by mouth once daily at mealtime Prednisone 20 MG tablet Discontinued 40 mg PO DAILY June 19, 2020 1:00am June 23, 2020 1:00am June 24, 2020 1:03am With food Start: 06-19-2020 End: 06-24-2020 take 40 mg by mouth once daily at mealtime Prednisone Discontinued 40 MG PO DAILY June 19, 2020 12:00am June 24, 2020 12:03am With food Problems Active Problems Problem Classification Problem Date Documented Da te Episodic/Chronic Acute and unspecified renal failure (20 sources) Injury of kidney; Translations: [Acute kidney failure, unspecified] Episodic Alcohol-related disorders (18 sources) H/O: alcoholism; Translations: [Alcohol dependence, in remission] Chronic Diabetes mellitus with complications (20 sources) Diabetic ketoacidosis; Translations: [Type 2 diabetes mellitus with ketoacidosis without coma] Onset: 03-05-2024 Chronic Diabetes mellitus without complication (20 sources) Diabetes mellitus; Translations: [Type 2 diabetes mellitus without complications] Onset: 05-04-2024 Chronic Essential hypertension (3 sources) Malignant hypertension; Translations: [Essential (primary) hypertension] Onset: 05-04-2024 05-12-2024 Chronic Genitourinary symptoms and ill-defined conditions (5 sources) Pyuria; Translations: [Pyuria] 07-02-2023 Episodic Other gastrointestinal disorders (5 sources) Constipation; Translations: [Constipation, unspecified] 07-02-2023 Episodic Other lower respiratory disease (12 sources) Cough; Translations: [Cough] 05-11-2022 Episodic Other lower respiratory disease (10 sources) Tachypnea; Translations: [Tachypnea, not elsewhere classified] 07-26-2022 Episodic Other lower respiratory disease (3 sources) Tachypnea, not elsewhere classified; Translations: [Tachypnea] 07-26-2022 Episodic Other screening for suspected conditions (not mental disorders or infectious disease) (20 sources) Serum creatinine raised; Translations: [Other specified abnormal findings of blood chemistry] 07-26-2022 Episodic Other upper respiratory disease (5 sources) Bleeding from nose; Translations: [Epistaxis] 07-02-2023 Episodic Other upper respiratory infections (12 sources) Acute upper respiratory infection; Translations: [Acute upper respiratory infection, unspecified] 05-11-2022 Episodic Pancreatic disorders (not diabetes) (18 sources) Pancreatitis; Translations: [Acute pancreatitis without necrosis or infection, unspecified] Episodic Residual codes; unclassified (1 source) Noncompliance with medication regimen; Translations: [Noncompliance with medication regimen] 05-12-2024 Episodic Spondylosis; intervertebral disc disorders; other back problems (13 sources) Low back pain; Translations: [Low back pain] 07-01-2023 Episodic Unclassified (1 source) Patient's other noncompliance with medication regimen for other reason; Translations: [Patient's other noncompliance with medication regimen for other reason] Onset: 05-04-2024 Viral infection (20 sources) Disease caused by 2019-nCoV; Translations: [COVID-19] 05-03-2022 Episodic Past or Other Problems Problem Classification Problem Date Documented Da te Episodic/Chronic Cardiac dysrhythmias (20 sources) Sinus tachycardia; Translations: [Tachycardia, unspecified] Onset: 05-04-2024 07-26-2022 Episodic Fluid and electrolyte disorders (20 sources) Dehydration; Translations: [Dehydration] Onset: 03-05-2024 Episodic Malaise and fatigue (4 sources) Malaise; Translations: [Other malaise] Onset: 05-04-2024 05-12-2024 Episodic Urinary tract infections (2 sources) Urinary tract infectious disease; Translations: [Urinary tract infection, site not specified] Onset: 05-04-2024 05-03-2024 Episodic Results Test Name Value Interpretation Reference Range Facility Albumin DL <= 20 mg/L (U) [M ass/Vol]Ordered By: Milind Lamb on 10-18-2024 Urine Random Microalbumin 34.1 mg/L NO RANGE EST. [facility] Anion gap in Serum or Plasma Ordered By: Milind Lamb on 10-18-2024 Anion gap [Moles/Vol] 14 mmol/L 11-18 [facility] BUN/creatinine ratioOrdered By: Milind Lamb on 10-18-2024 Urea nitrogen/Creatinine [Mass ratio] 12.4 mg/mg 04-25 [facility] Bilirubin, totalOrdered By: Milind Lamb on 10-18-2024 Bilirubin [Mass/Vol] 0.28 mg/dL 0.00-1.30 [facility] Calculated very low density lipoprotein (VLDL) cholesterol measurementOrdered By: Milind Lamb on 04-14-2025 VLDL Cholesterol 23 mg/dL 5-40 [facility] Carbon dioxide, total [Moles /volume] in Central venous bloodOrdered By: Milind Lamb on 10-18-2024 CO2 [Moles/Vol] 23.5 mmol/L 21.0-32.0 [facility] Chloride assayOrdered By: Pankaj Lamb on 10-18-2024 Chloride [Moles/Vol] 100 mmol/L 98-108 [facility] Comprehensive Metabolic Prof ilon 10-18-2024 Albumin [Mass/Vol] 4.7 g/dL Normal 3.4-4.8 [facility] Comment on above: Performed By: #### L 502.0250, L500.4100, L500.4050 ####[facility] [address] [place], [address] Albumin/Globulin [Mass ratio] 1.4 {ratio} Normal 0.9-2.4 [facility] Comment on above: Performed By: #### L 502.0250, L500.4100, L500.4050 ####[facility] [address] [place], [address] ALK PHOS 94 U/L Normal 35-104 [facility] Comment on above: Performed By: #### L 502.0250, L500.4100, L500.4050 ####[facility] [address] [place], [address] ALT [Catalytic activity/Vol] 10 U/L Normal <=34 [facility] Comment on above: Performed By: #### L 502.0250, L500.4100, [id number] ####[facility] [address] [place], [address] AST [Catalytic activity/Vol] 13 U/L Normal <=31 [facility] Comment on above: Performed By: #### L 502.0250, L500.4100, L500.4050 ####[facility] [address] [place], [address] Bilirubin [Mass/Vol] 0.28 mg/dL Normal 0.00-1.30 [facility] Comment on above: Performed By: #### L 502.0250, L500.4100, [id number] ####[facility] [address] [place], [address] BUN/CRE 12.4 RATIO Normal 10-20 [facility] Comment on above: Performed By: #### L 502.0250, L500.4100, [id number] ####[facility] [address] [place], [address] Calcium [Mass/Vol] 10.3 mg/dL Normal 7.6-11.0 [facility] Comment on above: Performed By: #### L 502.0250, L500.4100, L500.4050 ####[facility] [address] [place], [address] Chloride [Moles/Vol] 100 mmol/L Normal 98-108 [facility] Comment on above: Performed By: #### L 502.0250, L500.4100, L500.4050 ####[facility] [address] [place], [address] CO2 [Moles/Vol] 23.5 mmol/L Normal 21.0-32.0 [facility] Comment on above: Performed By: #### L 502.0250, L500.4100, [id number] ####[facility] [address] [place], [address] Creatinine [Mass/Vol] 0.94 mg/dL Normal 0.70-1.20 [facility] Comment on above: Performed By: #### L 502.0250, L500.4100, L500.4050 ####[facility] [address] [place], [address] GAP 14 Normal 5-15 [facility] Comment on above: Performed By: #### L 502.0250, L500.4100, [id number] ####[facility] [address] [place], [address] GFR/1.73 sq M.predicted among non-blacks MDRD (S/P/Bld) [Vol rate/Area] 68 mL/min/{1.73_m2} Normal >60 [facility] Comment on above: Result Comment: mL/m in/1.73m2 CKD-EPI Creatinine Equation (2020) Performed By: #### L 502.0250, L500.4100, [id number] ####[facility] [address] [place], [address] Globulin (S) [Mass/Vol] 3.3 g/dL Normal 2.2-4.2 [facility] Comment on above: Performed By: #### L 502.0250, L500.4100, L500.4050 ####[facility] [address] [place], [address] Glucose [Mass/Vol] 213 mg/dL High 70-99 [facility] Comment on above: Performed By: #### L 502.0250, L500.4100, L500.4050 ####[facility] [address] [place], [address] Potassium [Moles/Vol] 4.1 mmol/L Normal 3.3-5.1 [facility] Comment on above: Performed By: #### L 502.0250, L500.4100, L500.4050 ####[facility] [address] [place], [address] Sodium [Moles/Vol] 137 mmol/L Normal 133-145 [facility] Comment on above: Performed By: #### L 502.0250, L500.4100, [id number] ####[facility] [address] [place], [address] T PROT 8.1 g/dL Normal 5.9-8.4 [facility] Comment on above: Performed By: #### L 502.0250, L500.4100, L500.4050 ####[facility] [address] [place], [address] Urea nitrogen [Mass/Vol] 12 mg/dL Normal 4-19 [facility] Comment on above: Performed By: #### L 502.0250, L500.4100, L500.4050 ####[facility] [address] [place], [address] Creatinine Unsp time (U) [Ma ss/Vol]Ordered By: Milnid Lamb on 10-18-2024 Creatinine (U) [Mass/Vol] 168.00 mg/dL 28.00-217.[address] [facility] GFR/1.73 sq M.predicted raoul g non-blacks MDRD (S/P/Bld) [Vol rate/Area]Ordered By: Milind Lamb on 10-18-2024 Estimated GFR (MDRD) Non-Af Amer [address] >60 [facility] Comment on above: mL/min/1.73m2 CKD-EP I Creatinine Equation (2020) LDL calc ser/plasOrdered By: Milind Lamb on 10-18-2024 LDL Cholesterol, Calculated 136 mg/dL [facility] Comment on above: Oahgihsmwh=430-828 m g/dL & Higher Bsmw=599 mg/dL or greater Laboratory - Chemistry and C hemistry - challengeOrdered By: Milind Lamb on 10-18-2024 AST [Catalytic activity/Vol] 13 U/L <32 [facility] Lipid Profileon 10-18-2024 CHOL:HDL 3.[address] [facility] Comment on above: Performed By: #### L 502.0250, L500.4100, L500.4050 ####[facility] [address] [place], [address] Cholesterol [Mass/Vol] 233 mg/dL High <=200 [facility] Comment on above: Result Comment: Chol esterol level, Desirable <200 mg/dLBorderline high cholesterol 200-239 mg/dLHigh cholesterol >=240 mg/dLRecommendations of the NCEP Adult Treatment Panel for thefollowing risk-cutoff thresholds for the [facility]. Performed By: #### L 502.0250, L500.4100, L500.4050 ####[facility] [address] [place], [address] Cholesterol in HDL [Mass/Vol] 74 mg/dL Normal [facility] Comment on above: Result Comment: Kamila onal Cholesterol Education Program (NCEP) guidelines:<40 mg/dL: Low HDL-cholesterol (major risk factor for CHD)>= 60 mg/dL: High HDL-cholesterol (negative risk factor forCHD)HDL-cholesterol is affected by a number of factors, e.g.smoking, exercise, hormones, sex and age. Performed By: #### L 502.0250, L500.4100, L500.4050 ####[facility] [address] [place], [address] Cholesterol in LDL [Mass/Vol] 136 mg/dL Normal [facility] Comment on above: Result Comment: Bord elzhfc=495-677 mg/dL Higher Wqvl=824 mg/dL or greater Performed By: #### L 502.0250, L500.4100, L500.4050 ####[facility] [address] [place], [address] Cholesterol in VLDL [Mass/Vol] 23 mg/dL Normal 5-40 [facility] Comment on above: Performed By: #### L 502.0250, L500.4100, L500.4050 ####[facility] [address] [place], [address] Triglyceride [Mass/Vol] 115 mg/dL Normal [facility] Comment on above: Result Comment: The drugs N-Acetylcysteine and Metamizole may falselydepress this assay.Normal range: <150 mg/dLBorderline High: 150-199 mg/dLHigh: 200-499 mg/dLVery High: >500 mg/dL Performed By: #### L 502.0250, L500.4100, L500.4050 ####[facility] [address] [place], [address] Microalb:Creat Ratio,Random URon 10-18-2024 Creatinine [Mass/Vol] 168.00 mg/dL Normal 28.00- 217.[address] [facility] Comment on above: Performed By: #### L 502.0250, L500.4100, L500.4050 ####[facility] [address] [place], [address] MALB:CREAT 203.0 mg/g CRE Normal [facility] Comment on above: Performed By: #### L 502.0250, L500.4100, L500.4050 ####[facility] [address] [place], [address] MICROALBUMIN,UR 34.1 mg/L Normal NO RANGE EST. [facility] Comment on above: Performed By: #### L 502.0250, L500.4100, L500.4050 ####[facility] [address] [place], [address] Microalbumin/creat ratio urO rdered By: Milind Lamb on 10-18-2024 Urine Microalbumin/Creatinine Ratio 203.0 mg/g CRE [facility] Potassium (Unsp spec) [Mass/ Vol]Ordered By: Milind Lamb on 10-18-2024 Potassium [Moles/Vol] 4.1 mmol/L 3.3-5.1 [facility] Screening total cholesterol/ high density lipoprotein (HDL) cholesterol ratioOrdered By: Milind Lamb on 10-18-2024 Cholesterol.total/Misa sterol in HDL [Mass ratio] 3.13 {ratio} [facility] Serum creatinine measurement (mass/volume)Ordered By: Milind Lamb on 10-18-2024 Creatinine [Mass/Vol] 0.94 mg/dL 0.70-1.20 [facility] Serum globulin measurementOr dered By: Milind Lamb on 10-18-2024 Globulin (S) [Mass/Vol] 3.3 g/dL 2.2-4.2 [facility] Serum glucose measurement (m ass/volume)Ordered By: Milind Lamb on 10-18-2024 Glucose [Mass/Vol] 213 mg/dL High 70-99 [facility] Serum or plasma alanine hargrove otransferase (ALT) measurementOrdered By: Milind Lamb on 10-18-2024 ALT [Catalytic activity/Vol] 10 U/L <35 [facility] Serum or plasma albumin jn urement (mass/volume)Ordered By: Milind Lamb on 10-18-2024 Albumin [Mass/Vol] 4.7 g/dL 3.4-4.8 [facility] Serum or plasma albumin/glob ulin mass ratioOrdered By: Milind Lamb on 10-18-2024 Albumin/Globulin [Mass ratio] 1.4 {ratio} 0.9-2.4 [facility] Serum or plasma alkaline regis sphatase measurementOrdered By: Milind Lamb on 10-18-2024 ALP [Catalytic activity/Vol] 94 U/L 35-104 [facility] Serum or plasma calcium jn urement (mass/volume)Ordered By: Milind Lamb on 10-18-2024 Calcium [Mass/Vol] 10.3 mg/dL 7.6-11.0 [facility] Serum or plasma cholesterol in HDL measurement (mass/volume)Ordered By: Milind Lamb on 10-18-2024 Cholesterol in HDL [Mass/Vol] 74 mg/dL >40 [facility] Comment on above: National Cholesterol Education Program (NCEP) guidelines:<40 mg/dL: Low HDL-cholesterol (major risk factor for CHD)>= 60 mg/dL: High HDL-cholesterol (negative risk factor for CHD)HDL-cholesterol is affected by a number of factors, e.g. smoking, exercise, hormones, sex and age. Serum or plasma cholesterol measurement (mass/volume)Ordered By: Milind Lamb on 10-18-2024 Cholesterol [Mass/Vol] 233 mg/dL High <201 [facility] Comment on above: Cholesterol level, D esirable <200 mg/dLBorderline high cholesterol 200-239 mg/dLHigh cholesterol >=240 mg/dLRecommendations of the NCEP Adult Treatment Panel for the following risk-cutoff thresholds for the [place] population. Serum or plasma urea nitroge n measurement (mass/volume)Ordered By: Milind Lamb on 10-18-2024 Urea nitrogen [Mass/Vol] 12 mg/dL 4-19 [facility] Sodium levelOrdered By: Milind Lamb on 10-18-2024 Sodium [Moles/Vol] 137 mmol/L 133-145 [facility] Total proteinOrdered By: Bri Lamb on 10-18-2024 Protein [Mass/Vol] 8.1 g/dL 5.9-8.4 [facility] Triglycerides measurementOrd ered By: Milind Lamb on 10-18-2024 Triglyceride [Mass/Vol] 115 mg/dL <199 [facility] Comment on above: The drugs N-Acetylcy steine and Metamizole may falsely depress this assay. Normal range: <150 mg/dLBorderline High: 150-199 mg/dLHigh: 200-499 mg/dLVery High: >500 mg/dL Office Visit Reporton 2024 Office Visit Report Normal [facility] Albumin to globulin ratioOrd ered By: Milind Lamb on 07-20-2024 Albumin/Globulin [Mass ratio] 1.0 {ratio} 0.9-2.4 [facility] Bilirubin, totalOrdered By: Milind Lamb on 07-20-2024 Bilirubin [Mass/Vol] 0.50 mg/dL 0.20-1.00 [facility] Comment on above: For patients on eltr ombopag therapy, use of Dimension [place] TBIL is not recommended. Blood urea nitrogen (BUN)/cr eatinine ratioOrdered By: Milind Lamb on 07-20-2024 Urea nitrogen/Creatinine [Mass ratio] 23.7 mg/mg High 10-20 [facility] Carbon dioxide measurementOr dered By: Milind Lamb on 07-20-2024 CO2 [Moles/Vol] 29.0 mmol/L 21.0-32.0 [facility] Chloride measurementOrdered By: Milind Lamb on 07-20-2024 Chloride [Moles/Vol] 104 mmol/L 98-107 [facility] Comprehensive Metabolic Prof ilon 07-20-2024 Albumin [Mass/Vol] 3.7 g/dL Normal 3.2-5.0 [facility] Comment on above: Performed By: #### L 500.4100, L500.4050, L501.0900, L501.9985 ####[facility] [address] [place], [address] Albumin/Globulin [Mass ratio] 1.0 {ratio} Normal 0.9-2.4 [facility] Comment on above: Performed By: #### L 500.4100, L500.4050, L501.0900, L501.9985 ####[facility] [address] [place], [address] ALK P 91 U/L Normal 45-117 [facility] Comment on above: Performed By: #### L 500.4100, L500.4050, L501.0900, L501.9985 ####[facility] [address] [place], [address] ALT [Catalytic activity/Vol] 11 U/L Low 13-56 [facility] Comment on above: Performed By: #### L 500.4100, L500.4050, L501.0900, L501.9985 ####[facility] [address] [place], [address] AST [Catalytic activity/Vol] 4 U/L Low 15-37 [facility] Comment on above: Performed By: #### L 500.4100, L500.4050, L501.0900, L501.9985 ####[facility] [address] [place], [address] Bilirubin [Mass/Vol] 0.50 mg/dL Normal 0.20-1.00 [facility] Comment on above: Result Comment: For patients on eltrombopag therapy, use of Dimension [place] TBIL is not recommended. Performed By: #### L 500.4100, L500.4050, L501.0900, L501.9985 ####[facility] [address] [place], [address] BUN/CRE 23.7 RATIO High 10-20 [facility] Comment on above: Performed By: #### L 500.4100, L500.4050, L501.0900, L501.9985 ####[facility] [address] [place], [address] CA,Total 10.2 mg/dL High 8.5-10.1 [facility] Comment on above: Performed By: #### L 500.4100, L500.4050, L501.0900, L501.9985 ####[facility] [address] [place], [address] Chloride [Moles/Vol] 104 mmol/L Normal 98-107 [facility] Comment on above: Performed By: #### L 500.4100, L500.4050, L501.0900, L501.9985 ####[facility] [address] [place], [address] CO2 [Moles/Vol] 29.0 mmol/L Normal 21.0-32.0 [facility] Comment on above: Performed By: #### L 500.4100, L500.4050, L501.0900, L501.9985 ####[facility] [address] [place], [address] Creatinine [Mass/Vol] 0.76 mg/dL Normal 0.55-1.02 [facility] Comment on above: Result Comment: The validity of the calculated GFR GFRAA in patients over70 years has not been determined. Clinical correlation isessential. Performed By: #### L 500.4100, L500.4050, L501.0900, L501.9985 ####[facility] [address] [place], [address] EST GFR - AA 99 mL/min Normal >60 [facility] Comment on above: Result Comment: Afri can Mexican GFR Calc Performed By: #### L 500.4100, L500.4050, L501.0900, L501.9985 ####[facility] [address] [place], [address] GAP 5 Normal 5-15 [facility] Comment on above: Performed By: #### L 500.4100, L500.4050, L501.0900, L501.9985 ####[facility] [address] [place], [address] GFR/1.73 sq M.predicted among non-blacks MDRD (S/P/Bld) [Vol rate/Area] 82 mL/min/{1.73_m2} Normal >60 [facility] Comment on above: Result Comment: Non- GFR Calc Performed By: #### L 500.4100, L500.4050, L501.0900, L501.9985 ####[facility] [address] [place], [address] Globulin (S) [Mass/Vol] 3.8 g/dL Normal 2.2-4.2 [facility] Comment on above: Performed By: #### L 500.4100, L500.4050, L501.0900, L501.9985 ####[facility] [address] [place], [address] Glucose [Mass/Vol] 101 mg/dL Normal 74-106 [facility] Comment on above: Result Comment: Fast ing Glucose result from 100 to 125 mg/dLsuggests IMPAIRED HOMEOSTASIS per A.D.A. criteria. Performed By: #### L 500.4100, L500.4050, L501.0900, L501.9985 ####[facility] [address] [place], [address] Potassium [Moles/Vol] 4.0 mmol/L Normal 3.5-5.1 [facility] Comment on above: Performed By: #### L 500.4100, L500.4050, L501.0900, L501.9985 ####[facility] [address] [place], [address] Sodium [Moles/Vol] 138 mmol/L Normal 136-145 [facility] Comment on above: Performed By: #### L 500.4100, L500.4050, L501.0900, L501.9985 ####[facility] [address] [place], [address] T PROT 7.5 g/dL Normal 6.4-8.2 [facility] Comment on above: Performed By: #### L 500.4100, L500.4050, L501.0900, L501.9985 ####[facility] [address] [place], [address] Urea nitrogen [Mass/Vol] 18 mg/dL Normal 7-18 [facility] Comment on above: Performed By: #### L 500.4100, L500.4050, L501.0900, L501.9985 ####[facility] [address] [place], [address] Estimated glomerular filtrat ion rate (GFR) AmericanOrdered By: Milind Lamb on 07-20-2024 Estimated GFR (MDRD) Amer 99 mL/min >60 [facility] Comment on above: GFR Calc Glomerular filtration rate ( GFR) estimationOrdered By: Milind Lamb on 07-20-2024 Estimated GFR (MDRD) Non-Af Amer 82 mL/min >60 [facility] Comment on above: Non- GFR Calc Glucose measurementOrdered B y: Milind Lamb on 07-20-2024 Glucose [Mass/Vol] 101 mg/dL 74-106 [facility] Comment on above: Fasting Glucose resu lt from 100 to 125 mg/dL suggests IMPAIRED HOMEOSTASIS per A.D.A. criteria. Hemoglobin A1con 07-20-2024 HbA1c (Bld) [Mass fraction] 12.6 % High 3.8-5.6 [facility] Comment on above: Result Comment: Norm al < 5.7 % Prediabetic 5.7 - 6.4 % Diabetic >or= 6.5 % Please note range changes. Performed By: #### L 500.4100, L500.4050, L501.0900, L501.9985 ####[facility] [address] [place], [place], [id number] Hemoglobin A1c percentageOrd ered By: Milind Lamb on 07-20-2024 HbA1c (Bld) [Mass fraction] 12.6 % High 3.8-5.6 [facility] Comment on above: Normal < 5.7 % Predi abetic 5.7 - 6.4 % Diabetic >or= 6.5 % Please note range changes. High density lipoprotein (HD L) measurementOrdered By: Milind Lamb on 07-20-2024 Cholesterol in HDL [Mass/Vol] 102 mg/dL >40 [facility] Comment on above: The drugs N-Acetylcy steine and Metamizole may falsely depress this assay. Reference Range HDL <40 mg/dL Low HDL Cholesterol HDL >or= 60 mg/dL High HDL Cholesterol Laboratory - Chemistry and C hemistry - challengeOrdered By: Milind Lamb on 07-20-2024 AST [Catalytic activity/Vol] 4 U/L Low 15-37 [facility] Lipid Profileon 07-20-2024 Cholesterol [Mass/Vol] 234 mg/dL High 200 [facility] Comment on above: Result Comment: <200 mg/dL Desirable 200-240 mg/dL Borderline >240 mg/dL High Risk Performed By: #### L 500.4100, L500.4050, L501.0900, L501.9985 ####[facility] [address] [place], [place], [id number] Cholesterol in HDL [Mass/Vol] 102 mg/dL Normal [facility] Comment on above: Result Comment: The drugs N-Acetylcysteine and Metamizole may falselydepress this assay. Reference Range HDL <40 mg/dL Low HDL Cholesterol HDL >or= 60 mg/dL High HDL Cholesterol Performed By: #### L 500.4100, L500.4050, L501.0900, L501.9985 ####[facility] [address] [place], [address] Cholesterol in LDL [Mass/Vol] 119 mg/dL Normal 0-130 [facility] Comment on above: Performed By: #### L 500.4100, L500.4050, L501.0900, L501.9985 ####[facility] [address] [place], [address] Cholesterol in VLDL [Mass/Vol] 13 mg/dL Normal 5-40 [facility] Comment on above: Performed By: #### L 500.4100, L500.4050, L501.0900, L501.9985 ####[facility] [address] [place], [address] Triglyceride [Mass/Vol] 63 mg/dL Normal [facility] Comment on above: Result Comment: The drugs N-Acetylcysteine and Metamizole may falselydepress this assay.Serum Triglycerides Reference Interval Normal <150 mg/dL Borderline high 150 - 199 mg/dL High 200 - 499 mg/dL Very High > or = 500 mg/dL Performed By: #### L 500.4100, L500.4050, L501.0900, L501.9985 ####[facility] [address] [place], [address] Low density lipoprotein (LDL ) cholesterol measurementOrdered By: Milind Lamb on 07-20-2024 Cholesterol in LDL [Mass/Vol] 119 mg/dL 0-130 [facility] Potassium measurementOrdered By: Milind Lamb on 07-20-2024 Potassium [Moles/Vol] 4.0 mmol/L 3.5-5.1 [facility] Protein+Creatinine Ratio,Uri neon 07-20-2024 PROT:CRE RATIO 218 mg/g CRE High 0-200 [facility] Comment on above: Performed By: #### L 500.4100, L500.4050, L501.0900, L501.9985 ####[facility] [address] [place], [address] Protein (U) [Mass/Vol] 11.8 mg/dL Normal <11.9 [facility] Comment on above: Performed By: #### L 500.4100, L500.4050, L501.0900, L501.9985 ####[facility] [address] [place], [address] UR CREAT 54.20 mg/dL Normal NO RANGE EST. [facility] Comment on above: Performed By: #### L 500.4100, L500.4050, L501.0900, L501.9985 ####[facility] [address] [place], [address] Protein/Creatinine (U) [Mass ratio]Ordered By: Milind Lamb on 07-20-2024 Urine Protein/Creatinine Ratio 218 mg/g CRE High 0-200 [facility] Random urine protein measure mentOrdered By: Milind Lamb on 07-20-2024 Protein (U) [Mass/Vol] 11.8 mg/dL 0.0-11.8 [facility] Serum anion gap measurementO rdered By: Milind Lamb on 07-20-2024 Anion gap [Moles/Vol] 5 mmol/L 5-15 [facility] Serum globulin measurementOr dered By: Milind Lamb on 07-20-2024 Globulin (S) [Mass/Vol] 3.8 g/dL 2.2-4.2 [facility] Serum or plasma alanine hargrove otransferase (ALT) measurementOrdered By: Milind Lamb on 07-20-2024 ALT [Catalytic activity/Vol] 11 U/L Low 13-56 [facility] Serum or plasma albumin jn urement (mass/volume)Ordered By: Milind Lamb on 07-20-2024 Albumin [Mass/Vol] 3.7 g/dL 3.2-5.0 [facility] Serum or plasma alkaline regis sphatase measurementOrdered By: Milind Lamb on 07-20-2024 ALP [Catalytic activity/Vol] 91 U/L 45-117 [facility] Serum or plasma calcium jn urement (mass/volume)Ordered By: Milind Lamb on 07-20-2024 Calcium [Mass/Vol] 10.2 mg/dL High 8.5-10.1 [facility] Serum or plasma cholesterol measurement (mass/volume)Ordered By: Milind Lamb on 07-20-2024 Cholesterol [Mass/Vol] 234 mg/dL High <200 [facility] Comment on above: <200 mg/dL Desirable 200-240 mg/dL Borderline >240 mg/dL High Risk Serum or plasma creatinine m easurement (mass/volume)Ordered By: Milind Lamb on 07-20-2024 Creatinine [Mass/Vol] 0.76 mg/dL 0.55-1.02 [facility] Comment on above: The validity of the calculated GFR & GFRAA in patients over 70 years has not been determined. Clinical correlation is essential. Serum or plasma urea nitroge n measurement (mass/volume)Ordered By: Milind Lamb on 07-20-2024 Urea nitrogen [Mass/Vol] 18 mg/dL 7-18 [facility] Sodium levelOrdered By: Milind Lamb on 07-20-2024 Sodium [Moles/Vol] 138 mmol/L 136-145 [facility] Total proteinOrdered By: Bri Lamb on 07-20-2024 Protein [Mass/Vol] 7.5 g/dL 6.4-8.2 [facility] Triglycerides measurementOrd ered By: Milind Lamb on 07-20-2024 Triglyceride [Mass/Vol] 63 mg/dL <199 [facility] Comment on above: The drugs N-Acetylcy steine and Metamizole may falsely depress this assay.Serum Triglycerides Reference Interval Normal <150 mg/dL Borderline high 150 - 199 mg/dL High 200 - 499 mg/dL Very High > or = 500 mg/dL Urine creatinine measurement (mass/volume)Ordered By: iMlind Lamb on 07-20-2024 Creatinine (U) [Mass/Vol] 54.20 mg/dL NO RANGE EST. [facility] Very low density lipoprotein (VLDL) cholesterol measurementOrdered By: Milind Lamb on 07-20-2024 VLDL Cholesterol 13 mg/dL 5-40 [facility] Venous Blood Gason 4 Blood Gas Type LIZY Normal [facility] Comment on above: Performed By: #### L 9000.0810 ####[facility] [address] [place], [address] CO2 [Moles/Vol] 17 mmol/L Low 23-33 [facility] Comment on above: Performed By: #### L 9000.0810 ####[facility] [address] [place], [address] [address] [facility] Comment on above: Performed By: #### L 9000.0810 ####[facility] [address] [place], [address] HCO3 (Bld) [Moles/Vol] 15 mmol/L Low 22-26 [facility] Comment on above: Performed By: #### L 9000.0810 ####[facility] [address] [place], [address] O2 Delivery Dev Not entered Normal [facility] Comment on above: Performed By: #### L 9000.0810 ####[facility] [address] [place], [address] SITE Not entered [facility] Comment on above: Performed By: #### L 9000.0810 ####[facility] [address] [place], [address] VBG BE -12 mmol/L Low -1.0-3.5 [facility] Comment on above: Performed By: #### L 9000.0810 ####[facility] [address] [place], [address] VBG pCO2 38.2 mmHg Low 41-51 [facility] Comment on above: Performed By: #### L 9000.0810 ####[facility] [address] [place], [address] VBG pH 7.21 Low 7.32-7.42 [facility] Comment on above: Performed By: #### L 9000.0810 ####[facility] [address] [place], [address] VBG PO2 71 mmHg High 25-40 [facility] Comment on above: Performed By: #### L 9000.0810 ####[facility] [address] [place], [address] VBG SO2 90 High 50-70 [facility] Comment on above: Performed By: #### L 9000.0810 ####[facility] [address] [place], [address] Basic Metabolic Profile (BMP )on 05-11-2024 BUN Normal 7-18 [facility] Comment on above: Result Comment: Canc elled via OM: Order cancelled - Patient discharged Performed By: #### L 100.0100, L500.2500 ####[facility] [address] [place], [address] BUN/CRE Normal 10-20 [facility] Comment on above: Result Comment: Canc elled via OM: Order cancelled - Patient discharged Performed By: #### L 100.0100, L500.2500 ####[facility] [address] [place], [address] CA,Total Normal 8.5-10.1 [facility] Comment on above: Result Comment: Canc elled via OM: Order cancelled - Patient discharged Performed By: #### L 100.0100, L500.2500 ####[facility] [address] [place], [address] CL Normal 98-107 [facility] Comment on above: Result Comment: Canc elled via OM: Order cancelled - Patient discharged Performed By: #### L 100.0100, L500.2500 ####[facility] [address] [place], [address] CO2 Normal 21.0-32.0 [facility] Comment on above: Result Comment: Canc elled via OM: Order cancelled - Patient discharged Performed By: #### L 100.0100, L500.2500 ####[facility] [address] [place], [address] CREAT,SERUM Normal 0.55-1.02 [facility] Comment on above: Result Comment: Canc elled via OM: Order cancelled - Patient discharged Performed By: #### L 100.0100, L500.2500 ####[facility] [address] [place], [address] EST GFR Normal >60 [facility] Comment on above: Result Comment: Canc elled via OM: Order cancelled - Patient discharged Performed By: #### L 100.0100, L500.2500 ####[facility] [address] [place], [address] EST GFR - AA Normal >60 [facility] Comment on above: Result Comment: Canc elled via OM: Order cancelled - Patient discharged Performed By: #### L 100.0100, L500.2500 ####[facility] [address] [place], [address] GAP Normal 5-15 [facility] Comment on above: Result Comment: Canc elled via OM: Order cancelled - Patient discharged Performed By: #### L 100.0100, L500.2500 ####[facility] [address] [place], [address] GLU Normal 74-106 [facility] Comment on above: Result Comment: Canc elled via OM: Order cancelled - Patient discharged Performed By: #### L 100.0100, L500.2500 ####[facility] [address] [place], [address] Potassium Normal 3.5-5.1 [facility] Comment on above: Result Comment: Canc elled via OM: Order cancelled - Patient discharged Performed By: #### L 100.0100, L500.2500 ####[facility] [address] [place], [address] Basic Metabolic Profile (BMP) Normal 136-145 [facility] Comment on above: Result Comment: Canc elled via OM: Order cancelled - Patient discharged Performed By: #### L 100.0100, L500.2500 ####[facility] [address] [place], [address] CBC W/Diff, Automatedon 11-0 -2023 Absolute Neut Normal 2.0-7.7 [facility] Comment on above: Result Comment: Canc elled via OM: Order cancelled - Patient discharged Performed By: #### L 100.0100, L500.2500 ####[facility] [address] [place], [address] HCT Normal 37-47 [facility] Comment on above: Result Comment: Canc elled via OM: Order cancelled - Patient discharged Performed By: #### L 100.0100, L500.2500 ####[facility] [address] [place], [address] HGB Normal 12.0-15.0 [facility] Comment on above: Result Comment: Canc elled via OM: Order cancelled - Patient discharged Performed By: #### L 100.0100, L500.2500 ####[facility] [address] [place], [address] MCH Normal 27.0-32.0 [facility] Comment on above: Result Comment: Canc elled via OM: Order cancelled - Patient discharged Performed By: #### L 100.0100, L500.2500 ####[facility] [address] [place], [address] MCHC Normal 32-36 [facility] Comment on above: Result Comment: Canc elled via OM: Order cancelled - Patient discharged Performed By: #### L 100.0100, L500.2500 ####[facility] [address] [place], [address] MCV Normal 81-99 [facility] Comment on above: Result Comment: Canc elled via OM: Order cancelled - Patient discharged Performed By: #### L 100.0100, L500.2500 ####[facility] [address] [place], [address] NEUT% Normal 47-70 [facility] Comment on above: Result Comment: Canc elled via OM: Order cancelled - Patient discharged Performed By: #### L 100.0100, L500.2500 ####[facility] [address] [place], [address] PLT Normal 150-450 [facility] Comment on above: Result Comment: Canc elled via OM: Order cancelled - Patient discharged Performed By: #### L 100.0100, L500.2500 ####[facility] [address] [place], [address] RBC Normal 4.2-5.4 [facility] Comment on above: Result Comment: Canc elled via OM: Order cancelled - Patient discharged Performed By: #### L 100.0100, L500.2500 ####[facility] [address] [place], [address] RDW CV Normal 11.6-14.6 [facility] Comment on above: Result Comment: Canc elled via OM: Order cancelled - Patient discharged Performed By: #### L 100.0100, L500.2500 ####[facility] [address] [place], [address] RDW SD Normal 35.1-43.9 [facility] Comment on above: Result Comment: Canc elled via OM: Order cancelled - Patient discharged Performed By: #### L 100.0100, L500.2500 ####[facility] [address] [place], [address] WBC Normal 4.4-11.0 [facility] Comment on above: Result Comment: Canc elled via OM: Order cancelled - Patient discharged Performed By: #### L 100.0100, L500.2500 ####[facility] [address] [place], [address] Basic Metabolic Profile (BMP )on 05-10-2024 BUN Normal 7-18 [facility] Comment on above: Result Comment: Canc elled via OM: Order cancelled - Patient discharged Performed By: #### L 100.0100, L500.2500 ####[facility] [address] [place], [address] BUN/CRE Normal 10-20 [facility] Comment on above: Result Comment: Canc elled via OM: Order cancelled - Patient discharged Performed By: #### L 100.0100, L500.2500 ####[facility] [address] [place], [address] CA,Total Normal 8.5-10.1 [facility] Comment on above: Result Comment: Canc elled via OM: Order cancelled - Patient discharged Performed By: #### L 100.0100, L500.2500 ####[facility] [address] [place], [address] CL Normal 98-107 [facility] Comment on above: Result Comment: Canc elled via OM: Order cancelled - Patient discharged Performed By: #### L 100.0100, L500.2500 ####[facility] [address] [place], [address] CO2 Normal 21.0-32.0 [facility] Comment on above: Result Comment: Canc elled via OM: Order cancelled - Patient discharged Performed By: #### L 100.0100, L500.2500 ####[facility] [address] [place], [address] CREAT,SERUM Normal 0.55-1.02 [facility] Comment on above: Result Comment: Canc elled via OM: Order cancelled - Patient discharged Performed By: #### L 100.0100, L500.2500 ####[facility] [address] [place], [address] EST GFR Normal >60 [facility] Comment on above: Result Comment: Canc elled via OM: Order cancelled - Patient discharged Performed By: #### L 100.0100, L500.2500 ####[facility] [address] [place], [address] EST GFR - AA Normal >60 [facility] Comment on above: Result Comment: Canc elled via OM: Order cancelled - Patient discharged Performed By: #### L 100.0100, L500.2500 ####[facility] [address] [place], [address] GAP Normal 5-15 [facility] Comment on above: Result Comment: Canc elled via OM: Order cancelled - Patient discharged Performed By: #### L 100.0100, L500.2500 ####[facility] [address] [place], [address] GLU Normal 74-106 [facility] Comment on above: Result Comment: Canc elled via OM: Order cancelled - Patient discharged Performed By: #### L 100.0100, L500.2500 ####[facility] [address] [place], [address] Potassium Normal 3.5-5.1 [facility] Comment on above: Result Comment: Canc elled via OM: Order cancelled - Patient discharged Performed By: #### L 100.0100, L500.2500 ####[facility] [address] [place], [address] Basic Metabolic Profile (BMP) Normal 136-145 [facility] Comment on above: Result Comment: Canc elled via OM: Order cancelled - Patient discharged Performed By: #### L 100.0100, L500.2500 ####[facility] [address] [place], [address] CBC W/Diff, Automatedon 11-0 Absolute Neut Normal 2.0-7.7 [facility] Comment on above: Result Comment: Canc elled via OM: Order cancelled - Patient discharged Performed By: #### L 100.0100, L500.2500 ####[facility] [address] [place], [address] HCT Normal 37-47 [facility] Comment on above: Result Comment: Canc elled via OM: Order cancelled - Patient discharged Performed By: #### L 100.0100, L500.2500 ####[facility] [address] [place], [address] HGB Normal 12.0-15.0 [facility] Comment on above: Result Comment: Canc elled via OM: Order cancelled - Patient discharged Performed By: #### L 100.0100, L500.2500 ####[facility] [address] [place], [address] MCH Normal 27.0-32.0 [facility] Comment on above: Result Comment: Canc elled via OM: Order cancelled - Patient discharged Performed By: #### L 100.0100, L500.2500 ####[facility] [address] [place], [address] MCHC Normal 32-36 [facility] Comment on above: Result Comment: Canc elled via OM: Order cancelled - Patient discharged Performed By: #### L 100.0100, L500.2500 ####[facility] [address] [place], [address] MCV Normal 81-99 [facility] Comment on above: Result Comment: Canc elled via OM: Order cancelled - Patient discharged Performed By: #### L 100.0100, L500.2500 ####[facility] [address] [place], [address] NEUT% Normal 47-70 [facility] Comment on above: Result Comment: Canc elled via OM: Order cancelled - Patient discharged Performed By: #### L 100.0100, L500.2500 ####[facility] [address] [place], [address] PLT Normal 150-450 [facility] Comment on above: Result Comment: Canc elled via OM: Order cancelled - Patient discharged Performed By: #### L 100.0100, L500.2500 ####[facility] [address] [place], [address] RBC Normal 4.2-5.4 [facility] Comment on above: Result Comment: Canc elled via OM: Order cancelled - Patient discharged Performed By: #### L 100.0100, L500.2500 ####[facility] [address] [place], [address] RDW CV Normal 11.6-14.6 [facility] Comment on above: Result Comment: Canc elled via OM: Order cancelled - Patient discharged Performed By: #### L 100.0100, L500.2500 ####[facility] [address] [place], [address] RDW SD Normal 35.1-43.9 [facility] Comment on above: Result Comment: Canc elled via OM: Order cancelled - Patient discharged Performed By: #### L 100.0100, L500.2500 ####[facility] [address] [place], [address] WBC Normal 4.4-11.0 [facility] Comment on above: Result Comment: Canc elled via OM: Order cancelled - Patient discharged Performed By: #### L 100.0100, L500.2500 ####[facility] [address] [place], [address] Basic Metabolic Profile (BMP )on 05-09-2024 BUN Normal 7-18 [facility] Comment on above: Result Comment: Canc elled via OM: Order cancelled - Patient discharged Performed By: #### L 500.2500, L100.0100 ####[facility] [address] [place], [address] BUN/CRE Normal 10-20 [facility] Comment on above: Result Comment: Canc elled via OM: Order cancelled - Patient discharged Performed By: #### L 500.2500, L100.0100 ####[facility] [address] [place], [address] CA,Total Normal 8.5-10.1 [facility] Comment on above: Result Comment: Canc elled via OM: Order cancelled - Patient discharged Performed By: #### L 500.2500, L100.0100 ####[facility] [address] [place], [address] CL Normal 98-107 [facility] Comment on above: Result Comment: Canc elled via OM: Order cancelled - Patient discharged Performed By: #### L 500.2500, L100.0100 ####[facility] [address] [place], [address] CO2 Normal 21.0-32.0 [facility] Comment on above: Result Comment: Canc elled via OM: Order cancelled - Patient discharged Performed By: #### L 500.2500, L100.0100 ####[facility] [address] [place], [address] CREAT,SERUM Normal 0.55-1.02 [facility] Comment on above: Result Comment: Canc elled via OM: Order cancelled - Patient discharged Performed By: #### L 500.2500, L100.0100 ####[facility] [address] [place], [address] EST GFR Normal >60 [facility] Comment on above: Result Comment: Canc elled via OM: Order cancelled - Patient discharged Performed By: #### L 500.2500, L100.0100 ####[facility] [address] [place], [address] EST GFR - AA Normal >60 [facility] Comment on above: Result Comment: Canc elled via OM: Order cancelled - Patient discharged Performed By: #### L 500.2500, L100.0100 ####[facility] [address] [place], [address] GAP Normal 5-15 [facility] Comment on above: Result Comment: Canc elled via OM: Order cancelled - Patient discharged Performed By: #### L 500.2500, L100.0100 ####[facility] [address] [place], [address] GLU Normal 74-106 [facility] Comment on above: Result Comment: Canc elled via OM: Order cancelled - Patient discharged Performed By: #### L 500.2500, L100.0100 ####[facility] [address] [place], [address] Potassium Normal 3.5-5.1 [facility] Comment on above: Result Comment: Canc elled via OM: Order cancelled - Patient discharged Performed By: #### L 500.2500, L100.0100 ####[facility] [address] [place], [address] Basic Metabolic Profile (BMP) Normal 136-145 [facility] Comment on above: Result Comment: Canc elled via OM: Order cancelled - Patient discharged Performed By: #### L 500.2500, L100.0100 ####[facility] [address] [place], [address] CBC W/Diff, Automatedon 11-0 Absolute Neut Normal 2.0-7.7 [facility] Comment on above: Result Comment: Canc elled via OM: Order cancelled - Patient discharged Performed By: #### L 500.2500, L100.0100 ####[facility] [address] [place], [address] HCT Normal 37-47 [facility] Comment on above: Result Comment: Canc elled via OM: Order cancelled - Patient discharged Performed By: #### L 500.2500, L100.0100 ####[facility] [address] [place], [address] HGB Normal 12.0-15.0 [facility] Comment on above: Result Comment: Canc elled via OM: Order cancelled - Patient discharged Performed By: #### L 500.2500, L100.0100 ####[facility] [address] [place], [address] MCH Normal 27.0-32.0 [facility] Comment on above: Result Comment: Canc elled via OM: Order cancelled - Patient discharged Performed By: #### L 500.2500, L100.0100 ####[facility] [address] [place], [address] MCHC Normal 32-36 [facility] Comment on above: Result Comment: Canc elled via OM: Order cancelled - Patient discharged Performed By: #### L 500.2500, L100.0100 ####[facility] [address] [place], [address] MCV Normal 81-99 [facility] Comment on above: Result Comment: Canc elled via OM: Order cancelled - Patient discharged Performed By: #### L 500.2500, L100.0100 ####[facility] [address] [place], [address] NEUT% Normal 47-70 [facility] Comment on above: Result Comment: Canc elled via OM: Order cancelled - Patient discharged Performed By: #### L 500.2500, L100.0100 ####[facility] [address] [place], [address] PLT Normal 150-450 [facility] Comment on above: Result Comment: Canc elled via OM: Order cancelled - Patient discharged Performed By: #### L 500.2500, L100.0100 ####[facility] [address] [place], [address] RBC Normal 4.2-5.4 [facility] Comment on above: Result Comment: Canc elled via OM: Order cancelled - Patient discharged Performed By: #### L 500.2500, L100.0100 ####[facility] [address] [place], [address] RDW CV Normal 11.6-14.6 [facility] Comment on above: Result Comment: Canc elled via OM: Order cancelled - Patient discharged Performed By: #### L 500.2500, L100.0100 ####[facility] [address] [place], [address] RDW SD Normal 35.1-43.9 [facility] Comment on above: Result Comment: Canc elled via OM: Order cancelled - Patient discharged Performed By: #### L 500.2500, L100.0100 ####[facility] [address] [place], [address] WBC Normal 4.4-11.0 [facility] Comment on above: Result Comment: Canc elled via OM: Order cancelled - Patient discharged Performed By: #### L 500.2500, L100.0100 ####[facility] [address] [place], [address] Basic Metabolic Profile (BMP )on 05-08-2024 BUN Normal 7-18 [facility] Comment on above: Result Comment: Canc elled via OM: Order cancelled - Patient discharged Performed By: #### L 500.2500, L100.0100 ####[facility] [address] [place], [address] BUN/CRE Normal 10-20 [facility] Comment on above: Result Comment: Canc elled via OM: Order cancelled - Patient discharged Performed By: #### L 500.2500, L100.0100 ####[facility] [address] [place], [address] CA,Total Normal 8.5-10.1 [facility] Comment on above: Result Comment: Canc elled via OM: Order cancelled - Patient discharged Performed By: #### L 500.2500, L100.0100 ####[facility] [address] [place], [address] CL Normal 98-107 [facility] Comment on above: Result Comment: Canc elled via OM: Order cancelled - Patient discharged Performed By: #### L 500.2500, L100.0100 ####[facility] [address] [place], [address] CO2 Normal 21.0-32.0 [facility] Comment on above: Result Comment: Canc elled via OM: Order cancelled - Patient discharged Performed By: #### L 500.2500, L100.0100 ####[facility] [address] [place], [address] CREAT,SERUM Normal 0.55-1.02 [facility] Comment on above: Result Comment: Canc elled via OM: Order cancelled - Patient discharged Performed By: #### L 500.2500, L100.0100 ####[facility] [address] [place], [address] EST GFR Normal >60 [facility] Comment on above: Result Comment: Canc elled via OM: Order cancelled - Patient discharged Performed By: #### L 500.2500, L100.0100 ####[facility] [address] [place], [address] EST GFR - AA Normal >60 [facility] Comment on above: Result Comment: Canc elled via OM: Order cancelled - Patient discharged Performed By: #### L 500.2500, L100.0100 ####[facility] [address] [place], [address] GAP Normal 5-15 [facility] Comment on above: Result Comment: Canc elled via OM: Order cancelled - Patient discharged Performed By: #### L 500.2500, L100.0100 ####[facility] [address] [place], [address] GLU Normal 74-106 [facility] Comment on above: Result Comment: Canc elled via OM: Order cancelled - Patient discharged Performed By: #### L 500.2500, L100.0100 ####[facility] [address] [place], [address] Potassium Normal 3.5-5.1 [facility] Comment on above: Result Comment: Canc elled via OM: Order cancelled - Patient discharged Performed By: #### L 500.2500, L100.0100 ####[facility] [address] [place], [address] Basic Metabolic Profile (BMP) Normal 136-145 [facility] Comment on above: Result Comment: Canc elled via OM: Order cancelled - Patient discharged Performed By: #### L 500.2500, L100.0100 ####[facility] [address] [place], [address] CBC W/Diff, Automatedon 11-0 Absolute Neut Normal 2.0-7.7 [facility] Comment on above: Result Comment: Canc elled via OM: Order cancelled - Patient discharged Performed By: #### L 500.2500, L100.0100 ####[facility] [address] [place], [address] HCT Normal 37-47 [facility] Comment on above: Result Comment: Canc elled via OM: Order cancelled - Patient discharged Performed By: #### L 500.2500, L100.0100 ####[facility] [address] [place], [address] HGB Normal 12.0-15.0 [facility] Comment on above: Result Comment: Canc elled via OM: Order cancelled - Patient discharged Performed By: #### L 500.2500, L100.0100 ####[facility] [address] [place], [address] MCH Normal 27.0-32.0 [facility] Comment on above: Result Comment: Canc elled via OM: Order cancelled - Patient discharged Performed By: #### L 500.2500, L100.0100 ####[facility] [address] [place], [address] MCHC Normal 32-36 [facility] Comment on above: Result Comment: Canc elled via OM: Order cancelled - Patient discharged Performed By: #### L 500.2500, L100.0100 ####[facility] [address] [place], [address] MCV Normal 81-99 [facility] Comment on above: Result Comment: Canc elled via OM: Order cancelled - Patient discharged Performed By: #### L 500.2500, L100.0100 ####[facility] [address] [place], [address] NEUT% Normal 47-70 [facility] Comment on above: Result Comment: Canc elled via OM: Order cancelled - Patient discharged Performed By: #### L 500.2500, L100.0100 ####[facility] [address] [place], [address] PLT Normal 150-450 [facility] Comment on above: Result Comment: Canc elled via OM: Order cancelled - Patient discharged Performed By: #### L 500.2500, L100.0100 ####[facility] [address] [place], [address] RBC Normal 4.2-5.4 [facility] Comment on above: Result Comment: Canc elled via OM: Order cancelled - Patient discharged Performed By: #### L 500.2500, L100.0100 ####[facility] [address] [place], [address] RDW CV Normal 11.6-14.6 [facility] Comment on above: Result Comment: Canc elled via OM: Order cancelled - Patient discharged Performed By: #### L 500.2500, L100.0100 ####[facility] [address] [place], [address] RDW SD Normal 35.1-43.9 [facility] Comment on above: Result Comment: Canc elled via OM: Order cancelled - Patient discharged Performed By: #### L 500.2500, L100.0100 ####[facility] [address] [place], [address] WBC Normal 4.4-11.0 [facility] Comment on above: Result Comment: Canc elled via OM: Order cancelled - Patient discharged Performed By: #### L 500.2500, L100.0100 ####[facility] [address] [place], [address] Culture, Blood (WB)on 2023 CUB Blood cultures x2 fr om two different sites No growth in [address] [facility] Comment on above: Performed By: #### M 200.1000 ####[facility] [address] [place], [address] Basic Metabolic Profile (BMP )on 05-07-2024 BUN Normal 7-18 [facility] Comment on above: Result Comment: Canc elled via OM: Order cancelled - Patient discharged Performed By: #### L 500.2500, L100.0100 ####[facility] [address] [place], [address] BUN/CRE Normal 10-20 [facility] Comment on above: Result Comment: Canc elled via OM: Order cancelled - Patient discharged Performed By: #### L 500.2500, L100.0100 ####[facility] [address] [place], [address] CA,Total Normal 8.5-10.1 [facility] Comment on above: Result Comment: Canc elled via OM: Order cancelled - Patient discharged Performed By: #### L 500.2500, L100.0100 ####[facility] [address] [place], [address] CL Normal 98-107 [facility] Comment on above: Result Comment: Canc elled via OM: Order cancelled - Patient discharged Performed By: #### L 500.2500, L100.0100 ####[facility] [address] [place], [address] CO2 Normal 21.0-32.0 [facility] Comment on above: Result Comment: Canc elled via OM: Order cancelled - Patient discharged Performed By: #### L 500.2500, L100.0100 ####[facility] [address] [place], [address] CREAT,SERUM Normal 0.55-1.02 [facility] Comment on above: Result Comment: Canc elled via OM: Order cancelled - Patient discharged Performed By: #### L 500.2500, L100.0100 ####[facility] [address] [place], [address] EST GFR Normal >60 [facility] Comment on above: Result Comment: Canc elled via OM: Order cancelled - Patient discharged Performed By: #### L 500.2500, L100.0100 ####[facility] [address] [place], [address] EST GFR - AA Normal >60 [facility] Comment on above: Result Comment: Canc elled via OM: Order cancelled - Patient discharged Performed By: #### L 500.2500, L100.0100 ####[facility] [address] [place], [address] GAP Normal 5-15 [facility] Comment on above: Result Comment: Canc elled via OM: Order cancelled - Patient discharged Performed By: #### L 500.2500, L100.0100 ####[facility] [address] [place], [address] GLU Normal 74-106 [facility] Comment on above: Result Comment: Canc elled via OM: Order cancelled - Patient discharged Performed By: #### L 500.2500, L100.0100 ####[facility] [address] [place], [address] Potassium Normal 3.5-5.1 [facility] Comment on above: Result Comment: Canc elled via OM: Order cancelled - Patient discharged Performed By: #### L 500.2500, L100.0100 ####[facility] [address] [place], [address] Basic Metabolic Profile (BMP) Normal 136-145 [facility] Comment on above: Result Comment: Canc elled via OM: Order cancelled - Patient discharged Performed By: #### L 500.2500, L100.0100 ####[facility] [address] [place], [address] CBC W/Diff, Automatedon 11-0 Absolute Neut Normal 2.0-7.7 [facility] Comment on above: Result Comment: Canc elled via OM: Order cancelled - Patient discharged Performed By: #### L 500.2500, L100.0100 ####[facility] [address] [place], [address] HCT Normal 37-47 [facility] Comment on above: Result Comment: Canc elled via OM: Order cancelled - Patient discharged Performed By: #### L 500.2500, L100.0100 ####[facility] [address] [place], [address] HGB Normal 12.0-15.0 [facility] Comment on above: Result Comment: Canc elled via OM: Order cancelled - Patient discharged Performed By: #### L 500.2500, L100.0100 ####[facility] [address] [place], [address] MCH Normal 27.0-32.0 [facility] Comment on above: Result Comment: Canc elled via OM: Order cancelled - Patient discharged Performed By: #### L 500.2500, L100.0100 ####[facility] [address] [place], [address] MCHC Normal 32-36 [facility] Comment on above: Result Comment: Canc elled via OM: Order cancelled - Patient discharged Performed By: #### L 500.2500, L100.0100 ####[facility] [address] [place], [address] MCV Normal 81-99 [facility] Comment on above: Result Comment: Canc elled via OM: Order cancelled - Patient discharged Performed By: #### L 500.2500, L100.0100 ####[facility] [address] [place], [address] NEUT% Normal 47-70 [facility] Comment on above: Result Comment: Canc elled via OM: Order cancelled - Patient discharged Performed By: #### L 500.2500, L100.0100 ####[facility] [address] [place], [address] PLT Normal 150-450 [facility] Comment on above: Result Comment: Canc elled via OM: Order cancelled - Patient discharged Performed By: #### L 500.2500, L100.0100 ####[facility] [address] [place], [address] RBC Normal 4.2-5.4 [facility] Comment on above: Result Comment: Canc elled via OM: Order cancelled - Patient discharged Performed By: #### L 500.2500, L100.0100 ####[facility] [address] [place], [address] RDW CV Normal 11.6-14.6 [facility] Comment on above: Result Comment: Canc elled via OM: Order cancelled - Patient discharged Performed By: #### L 500.2500, L100.0100 ####[facility] [address] [place], [address] RDW SD Normal 35.1-43.9 [facility] Comment on above: Result Comment: Canc elled via OM: Order cancelled - Patient discharged Performed By: #### L 500.2500, L100.0100 ####[facility] [address] [place], [address] WBC Normal 4.4-11.0 [facility] Comment on above: Result Comment: Canc elled via OM: Order cancelled - Patient discharged Performed By: #### L 500.2500, L100.0100 ####[facility] [address] [place], [address] Basic Metabolic Profile (BMP )on 05-06-2024 BUN Normal 7-18 [facility] Comment on above: Result Comment: Canc elled via OM: Order cancelled - Patient discharged Performed By: #### L 500.2500, L100.0100 ####[facility] [address] [place], [address] BUN/CRE Normal 10-20 [facility] Comment on above: Result Comment: Canc elled via OM: Order cancelled - Patient discharged Performed By: #### L 500.2500, L100.0100 ####[facility] [address] [place], [address] CA,Total Normal 8.5-10.1 [facility] Comment on above: Result Comment: Canc elled via OM: Order cancelled - Patient discharged Performed By: #### L 500.2500, L100.0100 ####[facility] [address] [place], [address] CL Normal 98-107 [facility] Comment on above: Result Comment: Canc elled via OM: Order cancelled - Patient discharged Performed By: #### L 500.2500, L100.0100 ####[facility] [address] [place], [address] CO2 Normal 21.0-32.0 [facility] Comment on above: Result Comment: Canc elled via OM: Order cancelled - Patient discharged Performed By: #### L 500.2500, L100.0100 ####[facility] [address] [place], [address] CREAT,SERUM Normal 0.55-1.02 [facility] Comment on above: Result Comment: Canc elled via OM: Order cancelled - Patient discharged Performed By: #### L 500.2500, L100.0100 ####[facility] [address] [place], [address] EST GFR Normal >60 [facility] Comment on above: Result Comment: Canc elled via OM: Order cancelled - Patient discharged Performed By: #### L 500.2500, L100.0100 ####[facility] [address] [place], [address] EST GFR - AA Normal >60 [facility] Comment on above: Result Comment: Canc elled via OM: Order cancelled - Patient discharged Performed By: #### L 500.2500, L100.0100 ####[facility] [address] [place], [address] GAP Normal 5-15 [facility] Comment on above: Result Comment: Canc elled via OM: Order cancelled - Patient discharged Performed By: #### L 500.2500, L100.0100 ####[facility] [address] [place], [address] GLU Normal 74-106 [facility] Comment on above: Result Comment: Canc elled via OM: Order cancelled - Patient discharged Performed By: #### L 500.2500, L100.0100 ####[facility] [address] [place], [address] Potassium Normal 3.5-5.1 [facility] Comment on above: Result Comment: Canc elled via OM: Order cancelled - Patient discharged Performed By: #### L 500.2500, L100.0100 ####[facility] [address] [place], [address] Basic Metabolic Profile (BMP) Normal 136-145 [facility] Comment on above: Result Comment: Canc elled via OM: Order cancelled - Patient discharged Performed By: #### L 500.2500, L100.0100 ####[facility] [address] [place], [address] CBC W/Diff, Automatedon 10-3 Absolute Neut Normal 2.0-7.7 [facility] Comment on above: Result Comment: Canc elled via OM: Order cancelled - Patient discharged Performed By: #### L 500.2500, L100.0100 ####[facility] [address] [place], [address] HCT Normal 37-47 [facility] Comment on above: Result Comment: Canc elled via OM: Order cancelled - Patient discharged Performed By: #### L 500.2500, L100.0100 ####[facility] [address] [place], [address] HGB Normal 12.0-15.0 [facility] Comment on above: Result Comment: Canc elled via OM: Order cancelled - Patient discharged Performed By: #### L 500.2500, L100.0100 ####[facility] [address] [place], [address] MCH Normal 27.0-32.0 [facility] Comment on above: Result Comment: Canc elled via OM: Order cancelled - Patient discharged Performed By: #### L 500.2500, L100.0100 ####[facility] [address] [place], [address] MCHC Normal 32-36 [facility] Comment on above: Result Comment: Canc elled via OM: Order cancelled - Patient discharged Performed By: #### L 500.2500, L100.0100 ####[facility] [address] [place], [address] MCV Normal 81-99 [facility] Comment on above: Result Comment: Canc elled via OM: Order cancelled - Patient discharged Performed By: #### L 500.2500, L100.0100 ####[facility] [address] [place], [address] NEUT% Normal 47-70 [facility] Comment on above: Result Comment: Canc elled via OM: Order cancelled - Patient discharged Performed By: #### L 500.2500, L100.0100 ####[facility] [address] [place], [address] PLT Normal 150-450 [facility] Comment on above: Result Comment: Canc elled via OM: Order cancelled - Patient discharged Performed By: #### L 500.2500, L100.0100 ####[facility] [address] [place], [address] RBC Normal 4.2-5.4 [facility] Comment on above: Result Comment: Canc elled via OM: Order cancelled - Patient discharged Performed By: #### L 500.2500, L100.0100 ####[facility] [address] [place], [address] RDW CV Normal 11.6-14.6 [facility] Comment on above: Result Comment: Canc elled via OM: Order cancelled - Patient discharged Performed By: #### L 500.2500, L100.0100 ####[facility] [address] [place], [address] RDW SD Normal 35.1-43.9 [facility] Comment on above: Result Comment: Canc elled via OM: Order cancelled - Patient discharged Performed By: #### L 500.2500, L100.0100 ####[facility] [address] [place], [address] WBC Normal 4.4-11.0 [facility] Comment on above: Result Comment: Canc elled via OM: Order cancelled - Patient discharged Performed By: #### L 500.2500, L100.0100 ####[facility] [address] [place], [address] Basic Metabolic Profile (BMP )on 05-05-2024 BUN Normal 7-18 [facility] Comment on above: Result Comment: Canc elled via OM: Order cancelled - Patient discharged Performed By: #### L 100.0100, L500.2500 ####[facility] [address] [place], [address] BUN/CRE Normal 10-20 [facility] Comment on above: Result Comment: Canc elled via OM: Order cancelled - Patient discharged Performed By: #### L 100.0100, L500.2500 ####[facility] [address] [place], [address] CA,Total Normal 8.5-10.1 [facility] Comment on above: Result Comment: Canc elled via OM: Order cancelled - Patient discharged Performed By: #### L 100.0100, L500.2500 ####[facility] [address] [place], [address] CL Normal 98-107 [facility] Comment on above: Result Comment: Canc elled via OM: Order cancelled - Patient discharged Performed By: #### L 100.0100, L500.2500 ####[facility] [address] [place], [address] CO2 Normal 21.0-32.0 [facility] Comment on above: Result Comment: Canc elled via OM: Order cancelled - Patient discharged Performed By: #### L 100.0100, L500.2500 ####[facility] [address] [place], [address] CREAT,SERUM Normal 0.55-1.02 [facility] Comment on above: Result Comment: Canc elled via OM: Order cancelled - Patient discharged Performed By: #### L 100.0100, L500.2500 ####[facility] [address] [place], [address] EST GFR Normal >60 [facility] Comment on above: Result Comment: Canc elled via OM: Order cancelled - Patient discharged Performed By: #### L 100.0100, L500.2500 ####[facility] [address] [place], [address] EST GFR - AA Normal >60 [facility] Comment on above: Result Comment: Canc elled via OM: Order cancelled - Patient discharged Performed By: #### L 100.0100, L500.2500 ####[facility] [address] [place], [address] GAP Normal 5-15 [facility] Comment on above: Result Comment: Canc elled via OM: Order cancelled - Patient discharged Performed By: #### L 100.0100, L500.2500 ####[facility] [address] [place], [address] GLU Normal 74-106 [facility] Comment on above: Result Comment: Canc elled via OM: Order cancelled - Patient discharged Performed By: #### L 100.0100, L500.2500 ####[facility] [address] [place], [address] Potassium Normal 3.5-5.1 [facility] Comment on above: Result Comment: Canc elled via OM: Order cancelled - Patient discharged Performed By: #### L 100.0100, L500.2500 ####[facility] [address] [place], [address] Basic Metabolic Profile (BMP) Normal 136-145 [facility] Comment on above: Result Comment: Canc elled via OM: Order cancelled - Patient discharged Performed By: #### L 100.0100, L500.2500 ####[facility] [address] [place], [address] CBC W/Diff, Automatedon 10-3 0-2023 Absolute Neut Normal 2.0-7.7 [facility] Comment on above: Result Comment: Canc elled via OM: Order cancelled - Patient discharged Performed By: #### L 100.0100, L500.2500 ####[facility] [address] [place], [address] HCT Normal 37-47 [facility] Comment on above: Result Comment: Canc elled via OM: Order cancelled - Patient discharged Performed By: #### L 100.0100, L500.2500 ####[facility] [address] [place], [address] HGB Normal 12.0-15.0 [facility] Comment on above: Result Comment: Canc elled via OM: Order cancelled - Patient discharged Performed By: #### L 100.0100, L500.2500 ####[facility] [address] [place], [address] MCH Normal 27.0-32.0 [facility] Comment on above: Result Comment: Canc elled via OM: Order cancelled - Patient discharged Performed By: #### L 100.0100, L500.2500 ####[facility] [address] [place], [address] MCHC Normal 32-36 [facility] Comment on above: Result Comment: Canc elled via OM: Order cancelled - Patient discharged Performed By: #### L 100.0100, L500.2500 ####[facility] [address] [place], [address] MCV Normal 81-99 [facility] Comment on above: Result Comment: Canc elled via OM: Order cancelled - Patient discharged Performed By: #### L 100.0100, L500.2500 ####[facility] [address] [place], [address] NEUT% Normal 47-70 [facility] Comment on above: Result Comment: Canc elled via OM: Order cancelled - Patient discharged Performed By: #### L 100.0100, L500.2500 ####[facility] [address] [place], [address] PLT Normal 150-450 [facility] Comment on above: Result Comment: Canc elled via OM: Order cancelled - Patient discharged Performed By: #### L 100.0100, L500.2500 ####[facility] [address] [place], [address] RBC Normal 4.2-5.4 [facility] Comment on above: Result Comment: Canc elled via OM: Order cancelled - Patient discharged Performed By: #### L 100.0100, L500.2500 ####[facility] [address] [place], [address] RDW CV Normal 11.6-14.6 [facility] Comment on above: Result Comment: Canc elled via OM: Order cancelled - Patient discharged Performed By: #### L 100.0100, L500.2500 ####[facility] [address] [place], [address] RDW SD Normal 35.1-43.9 [facility] Comment on above: Result Comment: Canc elled via OM: Order cancelled - Patient discharged Performed By: #### L 100.0100, L500.2500 ####[facility] [address] [place], [address] WBC Normal 4.4-11.0 [facility] Comment on above: Result Comment: Canc elled via OM: Order cancelled - Patient discharged Performed By: #### L 100.0100, L500.2500 ####[facility] [address] [place], [address] Basic Metabolic Profile (BMP )on 05-04-2024 BUN/CRE 11.6 RATIO Normal 10-20 [facility] Comment on above: Performed By: #### L 100.0100, L500.2500 ####[facility] [address] [place], [address] CA,Total 8.6 mg/dL Normal 8.5-10.1 [facility] Comment on above: Performed By: #### L 100.0100, L500.2500 ####[facility] [address] [place], [address] Chloride [Moles/Vol] 115 mmol/L High 98-107 [facility] Comment on above: Performed By: #### L 100.0100, L500.2500 ####[facility] [address] [place], [address] CO2 [Moles/Vol] 20.0 mmol/L Low 21.0-32.0 [facility] Comment on above: Performed By: #### L 100.0100, L500.2500 ####[facility] [address] [place], [address] Creatinine [Mass/Vol] 0.86 mg/dL Normal 0.55-1.02 [facility] Comment on above: Result Comment: The validity of the calculated GFR GFRAA in patients over70 years has not been determined. Clinical correlation isessential. Performed By: #### L 100.0100, L500.2500 ####[facility] [address] [place], [address] ECRCL 56.11 ml/min Normal [facility] Comment on above: Performed By: #### L 100.0100, L500.2500 ####[facility] [address] [place], [address] EST GFR - AA 86 mL/min Normal >60 [facility] Comment on above: Result Comment: Afri can [place] GFR Calc Performed By: #### L 100.0100, L500.2500 ####[facility] [address] [place], [address] GAP 4 Low 5-15 [facility] Comment on above: Performed By: #### L 100.0100, L500.2500 ####[facility] [address] [place], [address] GFR/1.73 sq M.predicted among non-blacks MDRD (S/P/Bld) [Vol rate/Area] 71 mL/min/{1.73_m2} Normal >60 [facility] Comment on above: Result Comment: Non- GFR Calc Performed By: #### L 100.0100, L500.2500 ####[facility] [address] [place], [address] Glucose [Mass/Vol] 220 mg/dL High 74-106 [facility] Comment on above: Result Comment: Gluc ose result greater than or equal to 200 mg/dLsuggests DIABETES MELLITUS per A.D.A. criteria. Performed By: #### L 100.0100, L500.2500 ####[facility] [address] [place], [address] Potassium [Moles/Vol] 3.7 mmol/L Normal 3.5-5.1 [facility] Comment on above: Performed By: #### L 100.0100, L500.2500 ####[facility] [address] [place], [address] Sodium [Moles/Vol] 139 mmol/L Normal 136-145 [facility] Comment on above: Performed By: #### L 100.0100, L500.2500 ####[facility] [address] [place], [address] Urea nitrogen [Mass/Vol] 10 mg/dL Normal 7-18 [facility] Comment on above: Performed By: #### L 100.0100, L500.2500 ####[facility] [address] [place], [address] Bedside Glucoseon 05-04-2024 FINGERSTICK GLU 176 mg/dL High 74-106 [facility] Comment on above: Result Comment: MARIA D GEMENT OF PATIENT CARE PER NURSING PROTOCOL Performed By: #### L 501.080 ####[facility] [address] [place], [address] FINGERSTICK GLU 225 mg/dL High 74-106 [facility] Comment on above: Result Comment: MARIA D GEMENT OF PATIENT CARE PER NURSING PROTOCOL Performed By: #### L 501.080 ####[facility] [address] [place], [address] CBC W/Diff, Automatedon 10-2 Absolute Lymph 1.94 X10 3/uL Normal 0.83-4.51 [facility] Comment on above: Performed By: #### L 100.0100, L500.2500 ####[facility] [address] [place], [address] Absolute Neut 2.5 X10 3/uL Normal 2.0-7.7 [facility] Comment on above: Performed By: #### L 100.0100, L500.2500 ####[facility] [address] [place], [address] Basophils/100 WBC (Bld) 0.4 % Normal 0-1 [facility] Comment on above: Performed By: #### L 100.0100, L500.2500 ####[facility] [address] [place], [address] Eosinophils/100 WBC (Bld) 1.2 % Normal 0-5 [facility] Comment on above: Performed By: #### L 100.0100, L500.2500 ####[facility] [address] [place], [address] Erythrocyte distribution width (RBC) [Ratio] 13.3 % Normal 11.6-14.6 [facility] Comment on above: Performed By: #### L 100.0100, L500.2500 ####[facility] [address] [place], [address] Hematocrit (Bld) [Volume fraction] 29.8 % Low 37-47 [facility] Comment on above: Performed By: #### L 100.0100, L500.2500 ####[facility] [address] [place], [address] Hemoglobin (Bld) [Mass/Vol] 10.1 g/dL Low 12.0-15.0 [facility] Comment on above: Performed By: #### L 100.0100, L500.2500 ####[facility] [address] [place], [address] IG% 0.200 Normal 0.0-0.9 [facility] Comment on above: Result Comment: IG% - Immature Granulocytes (promyelocytes, myelocytes andmetamyelocytes) > 1% indicates that a LEFT SHIFT is Present. Performed By: #### L 100.0100, L500.2500 ####[facility] [address] [place], [address] Lymphocytes/100 WBC (Bld) 38.9 % Normal 19-41 [facility] Comment on above: Performed By: #### L 100.0100, L500.2500 ####[facility] [address] [place], [address] MCH (RBC) [Entitic mass] 30.1 pg Normal 27.0-32.0 [facility] Comment on above: Performed By: #### L 100.0100, L500.2500 ####[facility] [address] [place], [address] MCHC (RBC) [Mass/Vol] 33.9 g/dL Normal 32-36 [facility] Comment on above: Performed By: #### L 100.0100, L500.2500 ####[facility] [address] [place], [address] MCV (RBC) [Entitic vol] 89.0 fL Normal 81-99 [facility] Comment on above: Performed By: #### L 100.0100, L500.2500 ####[facility] [address] [place], [address] Monocytes/100 WBC (Bld) 8.8 % Normal 0-10 [facility] Comment on above: Performed By: #### L 100.0100, L500.2500 ####[facility] [address] [place], [address] Neutrophils/100 WBC (Bld) 50.5 % Normal 47-70 [facility] Comment on above: Performed By: #### L 100.0100, L500.2500 ####[facility] [address] [place], [address] Nucleated RBC (Bld) [#/Vol] 0 10*3/uL Normal 0-5 [facility] Comment on above: Performed By: #### L 100.0100, L500.2500 ####[facility] [address] [place], [address] Platelet mean volume (Bld) [Entitic vol] 11.1 fL Normal 6.2-12.0 [facility] Comment on above: Performed By: #### L 100.0100, L500.2500 ####[facility] [address] [place], [address] Platelets (Bld) [#/Vol] 187 10*3/uL Normal 150-450 [facility] Comment on above: Performed By: #### L 100.0100, L500.2500 ####[facility] [address] [place], [address] RBC (Bld) [#/Vol] 3.35 10*6/uL Low 4.2-5.4 [facility] Comment on above: Performed By: #### L 100.0100, L500.2500 ####[facility] [address] [place], [address] RDW SD 43.4 fl Normal 35.1-43.9 [facility] Comment on above: Performed By: #### L 100.0100, L500.2500 ####[facility] [address] [place], [address] WBC (Bld) [#/Vol] 5.0 10*3/uL Normal 4.4-11.0 [facility] Comment on above: Performed By: #### L 100.0100, L500.2500 ####[facility] [address] [place], [address] Discharge Instructionon 04-07 Discharge Instruction Normal [facility] Urine Cultureon 05-04-2024 URC Mixed Gram Positive Organisms [place] Count 11,000-25,000 MIXC Mixed contaminants. Submit a new specimen if indicated. Normal [facility] Comment on above: Performed By: #### M 100.2200 ####[facility] [address] [place], [address] Acetone Serumon 05-03-2024 ACETONE SERUM LARGE Abnormal NEG [facility] Comment on above: Order Comment: Comme nts: If not done in the ED Result Comment: CRIT ICAL VALUE CALLED TO [id number]/28/24 0456 Mayito Chao.RESULTS READ BACK BY SAME. Performed By: #### L 501.6900 ####[facility] [address] [place], [address] Basic Metabolic Profile (BMP )on 05-03-2024 BUN Normal 7-18 [facility] Comment on above: Order Comment: Call MD with results STAT Result Comment: Guille carey via OM: Ordered Performed By: #### L 500.2500 ####[facility] [address] [place], [address] BUN/CRE Normal -20 [facility] Comment on above: Order Comment: Call MD with results STAT Result Comment: Canc elled via OM: MD Ordered Performed By: #### L 500.2500 ####[facility] [address] [place], [address] CA,Total Normal 8.5-10.1 [facility] Comment on above: Order Comment: Call MD with results STAT Result Comment: Canc elled via OM: MD Ordered Performed By: #### L 500.2500 ####[facility] [address] [place], [address] CL Normal 98-107 [facility] Comment on above: Order Comment: Call MD with results STAT Result Comment: Canc elled via OM: MD Ordered Performed By: #### L 500.2500 ####[facility] [address] [place], [address] CO2 Normal 21.0-32.0 [facility] Comment on above: Order Comment: Call MD with results STAT Result Comment: Canc elled via OM: MD Ordered Performed By: #### L 500.2500 ####[facility] [address] [place], [address] CREAT,SERUM Normal 0.55-1.02 [facility] Comment on above: Order Comment: Call MD with results STAT Result Comment: Canc elled via OM: MD Ordered Performed By: #### L 500.2500 ####[facility] [address] [place], [address] EST GFR Normal >60 [facility] Comment on above: Order Comment: Call MD with results STAT Result Comment: Canc elled via OM: MD Ordered Performed By: #### L 500.2500 ####[facility] [address] [place], [address] EST GFR - AA Normal >60 [facility] Comment on above: Order Comment: Call MD with results STAT Result Comment: Canc elled via OM: MD Ordered Performed By: #### L 500.2500 ####[facility] [address] [place], [address] GAP Normal 5-15 [facility] Comment on above: Order Comment: Call MD with results STAT Result Comment: Canc elled via OM: MD Ordered Performed By: #### L 500.2500 ####[facility] [address] [place], [address] GLU Normal 74-106 [facility] Comment on above: Order Comment: Call MD with results STAT Result Comment: Canc elled via OM: MD Ordered Performed By: #### L 500.2500 ####[facility] [address] [place], [address] Potassium Normal 3.5-5.1 [facility] Comment on above: Order Comment: Call MD with results STAT Result Comment: Canc elled via OM: MD Ordered Performed By: #### L 500.2500 ####[facility] [address] [place], [address] Basic Metabolic Profile (BMP) Normal 136-145 [facility] Comment on above: Order Comment: Call MD with results STAT Result Comment: Canc elled via OM: MD Ordered Performed By: #### L 500.2500 ####[facility] [address] [place], [address] BUN Normal 7-18 [facility] Comment on above: Order Comment: Call MD with results STAT Result Comment: Canc elled via OM: MD Ordered Performed By: #### L 500.2500 ####[facility] [address] [place], [address] BUN/CRE Normal 10-20 [facility] Comment on above: Order Comment: Call MD with results STAT Result Comment: Canc elled via OM: MD Ordered Performed By: #### L 500.2500 ####[facility] [address] [place], [address] CA,Total Normal 8.5-10.1 [facility] Comment on above: Order Comment: Call MD with results STAT Result Comment: Canc elled via OM: MD Ordered Performed By: #### L 500.2500 ####[facility] [address] [place], [address] CL Normal 98-107 [facility] Comment on above: Order Comment: Call MD with results STAT Result Comment: Canc elled via OM: MD Ordered Performed By: #### L 500.2500 ####[facility] [address] [place], [address] CO2 Normal 21.0-32.0 [facility] Comment on above: Order Comment: Call MD with results STAT Result Comment: Canc elled via OM: MD Ordered Performed By: #### L 500.2500 ####[facility] [address] [place], [address] CREAT,SERUM Normal 0.55-1.02 [facility] Comment on above: Order Comment: Call MD with results STAT Result Comment: Canc elled via OM: MD Ordered Performed By: #### L 500.2500 ####[facility] [address] [place], [address] EST GFR Normal >60 [facility] Comment on above: Order Comment: Call MD with results STAT Result Comment: Canc elled via OM: MD Ordered Performed By: #### L 500.2500 ####[facility] [address] [place], [address] EST GFR - AA Normal >60 [facility] Comment on above: Order Comment: Call MD with results STAT Result Comment: Canc elled via OM: MD Ordered Performed By: #### L 500.2500 ####[facility] [address] [place], [address] GAP Normal 5-15 [facility] Comment on above: Order Comment: Call MD with results STAT Result Comment: Canc elled via OM: MD Ordered Performed By: #### L 500.2500 ####[facility] [address] [place], [address] GLU Normal 74-106 [facility] Comment on above: Order Comment: Call MD with results STAT Result Comment: Canc elled via OM: MD Ordered Performed By: #### L 500.2500 ####[facility] [address] [place], [address] Potassium Normal 3.5-5.1 [facility] Comment on above: Order Comment: Call MD with results STAT Result Comment: Canc elled via OM: MD Ordered Performed By: #### L 500.2500 ####[facility] [address] [place], [address] Basic Metabolic Profile (BMP) Normal 136-145 [facility] Comment on above: Order Comment: Call MD with results STAT Result Comment: Canc elled via OM: MD Ordered Performed By: #### L 500.2500 ####[facility] [address] [place], [address] BUN Normal 7-18 [facility] Comment on above: Order Comment: Call MD with results STAT Result Comment: Canc elled via OM: MD Ordered Performed By: #### L 500.2500 ####[facility] [address] [place], [address] BUN/CRE Normal 10-20 [facility] Comment on above: Order Comment: Call MD with results STAT Result Comment: Canc elled via OM: MD Ordered Performed By: #### L 500.2500 ####[facility] [address] [place], [address] CA,Total Normal 8.5-10.1 [facility] Comment on above: Order Comment: Call MD with results STAT Result Comment: Canc elled via OM: MD Ordered Performed By: #### L 500.2500 ####[facility] [address] [place], [address] CL Normal 98-107 [facility] Comment on above: Order Comment: Call MD with results STAT Result Comment: Canc elled via OM: MD Ordered Performed By: #### L 500.2500 ####[facility] [address] [place], [address] CO2 Normal 21.0-32.0 [facility] Comment on above: Order Comment: Call MD with results STAT Result Comment: Canc elled via OM: MD Ordered Performed By: #### L 500.2500 ####[facility] [address] [place], [address] CREAT,SERUM Normal 0.55-1.02 [facility] Comment on above: Order Comment: Call MD with results STAT Result Comment: Canc elled via OM: MD Ordered Performed By: #### L 500.2500 ####[facility] [address] [place], [address] EST GFR Normal >60 [facility] Comment on above: Order Comment: Call MD with results STAT Result Comment: Canc elled via OM: MD Ordered Performed By: #### L 500.2500 ####[facility] [address] [place], [address] EST GFR - AA Normal >60 [facility] Comment on above: Order Comment: Call MD with results STAT Result Comment: Canc elled via OM: MD Ordered Performed By: #### L 500.2500 ####[facility] [address] [place], [address] GAP Normal 5-15 [facility] Comment on above: Order Comment: Call MD with results STAT Result Comment: Canc elled via OM: MD Ordered Performed By: #### L 500.2500 ####[facility] [address] [place], [address] GLU Normal 74-106 [facility] Comment on above: Order Comment: Call MD with results STAT Result Comment: Canc elled via OM: MD Ordered Performed By: #### L 500.2500 ####[facility] [address] [place], [address] Potassium Normal 3.5-5.1 [facility] Comment on above: Order Comment: Call MD with results STAT Result Comment: Canc elled via OM: MD Ordered Performed By: #### L 500.2500 ####[facility] [address] [place], [address] Basic Metabolic Profile (BMP) Normal 136-145 [facility] Comment on above: Order Comment: Call MD with results STAT Result Comment: Canc elled via OM: MD Ordered Performed By: #### L 500.2500 ####[facility] [address] [place], [address] BUN/CRE 16.6 RATIO Normal 10-20 [facility] Comment on above: Order Comment: Call MD with results STAT Performed By: #### L 500.2500 ####[facility] [address] [place], [address] CA,Total 8.6 mg/dL Normal 8.5-10.1 [facility] Comment on above: Order Comment: Call MD with results STAT Performed By: #### L 500.2500 ####[facility] [address] [place], [address] Chloride [Moles/Vol] 117 mmol/L High 98-107 [facility] Comment on above: Order Comment: Call MD with results STAT Performed By: #### L 500.2500 ####[facility] [address] [place], [address] CO2 [Moles/Vol] 18.0 mmol/L Low 21.0-32.0 [facility] Comment on above: Order Comment: Call MD with results STAT Performed By: #### L 500.2500 ####[facility] [address] [place], [address] Creatinine [Mass/Vol] 0.90 mg/dL Normal 0.55-1.02 [facility] Comment on above: Order Comment: Call MD with results STAT Result Comment: The validity of the calculated GFR GFRAA in patients over70 years has not been determined. Clinical correlation isessential. Performed By: #### L 500.2500 ####[facility] [address] [place], [address] ECRCL 53.41 ml/min Normal [facility] Comment on above: Order Comment: Call MD with results STAT Performed By: #### L 500.2500 ####[facility] [address] [place], [address] EST GFR - AA 82 mL/min Normal >60 [facility] Comment on above: Order Comment: Call MD with results STAT Result Comment: Afri can Mexican GFR Calc Performed By: #### L 500.2500 ####[facility] [address] [place], [address] GAP 4 Low 5-15 [facility] Comment on above: Order Comment: Call MD with results STAT Performed By: #### L 500.2500 ####[facility] [address] [place], [address] GFR/1.73 sq M.predicted among non-blacks MDRD (S/P/Bld) [Vol rate/Area] 67 mL/min/{1.73_m2} Normal >60 [facility] Comment on above: Order Comment: Call MD with results STAT Result Comment: Non- GFR Calc Performed By: #### L 500.2500 ####[facility] [address] [place], [address] Glucose [Mass/Vol] 119 mg/dL High 74-106 [facility] Comment on above: Order Comment: Call MD with results STAT Result Comment: Fast ing Glucose result from 100 to 125 mg/dLsuggests IMPAIRED HOMEOSTASIS per A.D.A. criteria. Performed By: #### L 500.2500 ####[facility] [address] [place], [address] Potassium [Moles/Vol] 3.3 mmol/L Low 3.5-5.1 [facility] Comment on above: Order Comment: Call MD with results STAT Performed By: #### L 500.2500 ####[facility] [address] [place], [address] Sodium [Moles/Vol] 138 mmol/L Normal 136-145 [facility] Comment on above: Order Comment: Call MD with results STAT Performed By: #### L 500.2500 ####[facility] [address] [place], [address] Urea nitrogen [Mass/Vol] 15 mg/dL Normal 7-18 [facility] Comment on above: Order Comment: Call MD with results STAT Performed By: #### L 500.2500 ####[facility] [address] [place], [address] BUN/CRE 16.1 RATIO Normal 10-20 [facility] Comment on above: Performed By: #### L 500.2500 ####[facility] [address] [place], [address] CA,Total 8.4 mg/dL Low 8.5-10.1 [facility] Comment on above: Performed By: #### L 500.2500 ####[facility] [address] [place], [address] Chloride [Moles/Vol] 114 mmol/L High 98-107 [facility] Comment on above: Performed By: #### L 500.2500 ####[facility] [address] [place], [address] CO2 [Moles/Vol] 17.0 mmol/L Low 21.0-32.0 [facility] Comment on above: Performed By: #### L 500.2500 ####[facility] [address] [place], [address] Creatinine [Mass/Vol] 0.99 mg/dL Normal 0.55-1.02 [facility] Comment on above: Result Comment: The validity of the calculated GFR GFRAA in patients over70 years has not been determined. Clinical correlation isessential. Performed By: #### L 500.2500 ####[facility] [address] [place], [address] ECRCL 48.55 ml/min Normal [facility] Comment on above: Performed By: #### L 500.2500 ####[facility] [address] [place], [address] EST GFR - AA 73 mL/min Normal >60 [facility] Comment on above: Result Comment: Afri can Mexican GFR Calc Performed By: #### L 500.2500 ####[facility] [address] [place], [address] GAP 9 Normal 5-15 [facility] Comment on above: Performed By: #### L 500.2500 ####[facility] [address] [place], [address] GFR/1.73 sq M.predicted among non-blacks MDRD (S/P/Bld) [Vol rate/Area] 60 mL/min/{1.73_m2} Normal >60 [facility] Comment on above: Result Comment: Non- GFR Calc Performed By: #### L 500.2500 ####[facility] [address] [place], [address] Glucose [Mass/Vol] 190 mg/dL High 74-106 [facility] Comment on above: Result Comment: Fast ing Glucose result greater than or equal to 126 mg/dLsuggests DIABETES MELLITUS per A.D.A. criteria. Performed By: #### L 500.2500 ####[facility] [address] [place], [address] Potassium [Moles/Vol] 3.5 mmol/L Normal 3.5-5.1 [facility] Comment on above: Performed By: #### L 500.2500 ####[facility] [address] [place], [address] Sodium [Moles/Vol] 140 mmol/L Normal 136-145 [facility] Comment on above: Performed By: #### L 500.2500 ####[facility] [address] [place], [address] Urea nitrogen [Mass/Vol] 16 mg/dL Normal 7-18 [facility] Comment on above: Performed By: #### L 500.2500 ####[facility] [address] [place], [address] BUN/CRE 18.8 RATIO Normal 10-20 [facility] Comment on above: Order Comment: Comme nts: SPECIMEN #3'TROP' Serial specimen #1, #2 or #3: Alex RICH with results STAT Performed By: #### L 501.2300, L100.0100, L500.2500, L501.4020, L501.9520 ####[facility] [address] [place], [address] CA,Total 8.5 mg/dL Normal 8.5-10.1 [facility] Comment on above: Order Comment: Comme nts: SPECIMEN #3'TROP' Serial specimen #1, #2 or #3: Alex RICH with results STAT Performed By: #### L 501.2300, L100.0100, L500.2500, L501.4020, L501.9520 ####[facility] [address] [place], [address] Chloride [Moles/Vol] 114 mmol/L High 98-107 [facility] Comment on above: Order Comment: Comme nts: SPECIMEN #3'TROP' Serial specimen #1, #2 or #3: Alex RICH with results STAT Performed By: #### L 501.2300, L100.0100, L500.2500, L501.4020, L501.9520 ####[facility] [address] [place], [address] CO2 [Moles/Vol] 12.0 mmol/L Low 21.0-32.0 [facility] Comment on above: Order Comment: Comme nts: SPECIMEN #3'TROP' Serial specimen #1, #2 or #3: Alex IRCH with results STAT Performed By: #### L 501.2300, L100.0100, L500.2500, L501.4020, L501.9520 ####[facility] [address] [place], [address] Creatinine [Mass/Vol] 1.01 mg/dL Normal 0.55-1.02 [facility] Comment on above: Order Comment: Comme nts: SPECIMEN #3'TROP' Serial specimen #1, #2 or #3: Alex RICH with results STAT Result Comment: The validity of the calculated GFR GFRAA in patients over70 years has not been determined. Clinical correlation isessential. Performed By: #### L 501.2300, L100.0100, L500.2500, L501.4020, L501.9520 ####[facility] [address] [place], [address] ECRCL 47.59 ml/min Normal [facility] Comment on above: Order Comment: Comme nts: SPECIMEN #3'TROP' Serial specimen #1, #2 or #3: Alex RICH with results STAT Performed By: #### L 501.2300, L100.0100, L500.2500, L501.4020, L501.9520 ####[facility] [address] [place], [address] EST GFR - AA 71 mL/min Normal >60 [facility] Comment on above: Order Comment: Comme nts: SPECIMEN #3'TROP' Serial specimen #1, #2 or #3: Alex RICH with results STAT Result Comment: Afri can Mexican GFR Calc Performed By: #### L 501.2300, L100.0100, L500.2500, L501.4020, L501.9520 ####[facility] [address] [place], [address] GAP 12 Normal 5-15 [facility] Comment on above: Order Comment: Comme nts: SPECIMEN #3'TROP' Serial specimen #1, #2 or #3: Alex RICH with results STAT Performed By: #### L 501.2300, L100.0100, L500.2500, L501.4020, L501.9520 ####[facility] [address] [place], [address] GFR/1.73 sq M.predicted among non-blacks MDRD (S/P/Bld) [Vol rate/Area] 59 mL/min/{1.73_m2} Low >60 [facility] Comment on above: Order Comment: Comme nts: SPECIMEN #3'TROP' Serial specimen #1, #2 or #3: Alex RICH with results STAT Result Comment: Non- GFR Calc Performed By: #### L 501.2300, L100.0100, L500.2500, L501.4020, L501.9520 ####[facility] [address] [place], [address] Glucose [Mass/Vol] 241 mg/dL High 74-106 [facility] Comment on above: Order Comment: Comme nts: SPECIMEN #3'TROP' Serial specimen #1, #2 or #3: Alex RICH with results STAT Result Comment: Gluc ose result greater than or equal to 200 mg/dLsuggests DIABETES MELLITUS per A.D.A. criteria. Performed By: #### L 501.2300, L100.0100, L500.2500, L501.4020, L501.9520 ####[facility] [address] [place], [address] Potassium [Moles/Vol] 3.8 mmol/L Normal 3.5-5.1 [facility] Comment on above: Order Comment: Comme nts: SPECIMEN #3'TROP' Serial specimen #1, #2 or #3: Alex RICH with results STAT Performed By: #### L 501.2300, L100.0100, L500.2500, L501.4020, L501.9520 ####[facility] [address] [place], [address] Sodium [Moles/Vol] 137 mmol/L Normal 136-145 [facility] Comment on above: Order Comment: Comme nts: SPECIMEN #3'TROP' Serial specimen #1, #2 or #3: Alex RICH with results STAT Performed By: #### L 501.2300, L100.0100, L500.2500, L501.4020, L501.9520 ####[facility] [address] [place], [address] Urea nitrogen [Mass/Vol] 19 mg/dL High 7-18 [facility] Comment on above: Order Comment: Comme nts: SPECIMEN #3'TROP' Serial specimen #1, #2 or #3: Alex RICH with results STAT Performed By: #### L 501.2300, L100.0100, L500.2500, L501.4020, L501.9520 ####[facility] [address] [place], [address] BUN Normal 7-18 [facility] Comment on above: Result Comment: Canc elled via OM: Duplicate Order Performed By: #### L 500.2500 ####[facility] [address] [place], [address] BUN/CRE Normal 10-20 [facility] Comment on above: Result Comment: Canc elled via OM: Duplicate Order Performed By: #### L 500.2500 ####[facility] [address] [place], [address] CA,Total Normal 8.5-10.1 [facility] Comment on above: Result Comment: Canc elled via OM: Duplicate Order Performed By: #### L 500.2500 ####[facility] [address] [place], [address] CL Normal 98-107 [facility] Comment on above: Result Comment: Canc elled via OM: Duplicate Order Performed By: #### L 500.2500 ####[facility] [address] [place], [address] CO2 Normal 21.0-32.0 [facility] Comment on above: Result Comment: Canc elled via OM: Duplicate Order Performed By: #### L 500.2500 ####[facility] [address] [place], [address] CREAT,SERUM Normal 0.55-1.02 [facility] Comment on above: Result Comment: Canc elled via OM: Duplicate Order Performed By: #### L 500.2500 ####[facility] [address] [place], [address] EST GFR Normal >60 [facility] Comment on above: Result Comment: Canc elled via OM: Duplicate Order Performed By: #### L 500.2500 ####[facility] [address] [place], [address] EST GFR - AA Normal >60 [facility] Comment on above: Result Comment: Canc elled via OM: Duplicate Order Performed By: #### L 500.2500 ####[facility] [address] [place], [address] GAP Normal 5-15 [facility] Comment on above: Result Comment: Canc elled via OM: Duplicate Order Performed By: #### L 500.2500 ####[facility] [address] [place], [address] GLU Normal 74-106 [facility] Comment on above: Result Comment: Canc elled via OM: Duplicate Order Performed By: #### L 500.2500 ####[facility] [address] [place], [address] Potassium Normal 3.5-5.1 [facility] Comment on above: Result Comment: Canc elled via OM: Duplicate Order Performed By: #### L 500.2500 ####[facility] [address] [place], [address] Basic Metabolic Profile (BMP) Normal 136-145 [facility] Comment on above: Result Comment: Canc elled via OM: Duplicate Order Performed By: #### L 500.2500 ####[facility] [address] [place], [address] BUN/CRE 18.8 RATIO Normal 10-20 [facility] Comment on above: Order Comment: Comme nts: SPECIMEN #2'TROP' Serial specimen #1, #2 or #3: 2Cmeir RICH with results STAT Performed By: #### L 500.2500, L501.4020 ####[facility] [address] [place], [address] CA,Total 9.2 mg/dL Normal 8.5-10.1 [facility] Comment on above: Order Comment: Comme nts: SPECIMEN #2'TROP' Serial specimen #1, #2 or #3: 2Cmeir RICH with results STAT Performed By: #### L 500.2500, L501.4020 ####[facility] [address] [place], [address] Chloride [Moles/Vol] 106 mmol/L Normal 98-107 [facility] Comment on above: Order Comment: Comme nts: SPECIMEN #2'TROP' Serial specimen #1, #2 or #3: 2Cmeir RICH with results STAT Performed By: #### L 500.2500, L501.4020 ####[facility] [address] [place], [address] CO2 [Moles/Vol] 9.0 mmol/L Invalid Interpretation Code 21.0-32.0 [facility] Comment on above: Order Comment: Comme nts: SPECIMEN #2'TROP' Serial specimen #1, #2 or #3: Mejia RICH with results STAT Result Comment: Crit ical Result(s) Called at: 00:31:10 05/03/2024 by: NoahBurns. MIK Dennis RN ICU. Results read back by same. Performed By: #### L 500.2500, L501.4020 ####[facility] [address] [place], [address] Creatinine [Mass/Vol] 1.17 mg/dL High 0.55-1.02 [facility] Comment on above: Order Comment: Comme nts: SPECIMEN #2'TROP' Serial specimen #1, #2 or #3: Mejia RIHC with results STAT Result Comment: The validity of the calculated GFR GFRAA in patients over70 years has not been determined. Clinical correlation isessential. Performed By: #### L 500.2500, L501.4020 ####[facility] [address] [place], [address] ECRCL 41.08 ml/min Normal [facility] Comment on above: Order Comment: Comme nts: SPECIMEN #2'TROP' Serial specimen #1, #2 or #3: Mejia RICH with results STAT Performed By: #### L 500.2500, L501.4020 ####[facility] [address] [place], [address] EST GFR - AA 60 mL/min Normal >60 [facility] Comment on above: Order Comment: Comme nts: SPECIMEN #2'TROP' Serial specimen #1, #2 or #3: Mejia RICH with results STAT Result Comment: Afri can Mexican GFR Calc Performed By: #### L 500.2500, L501.4020 ####[facility] [address] [place], [address] GAP 21 High 5-15 [facility] Comment on above: Order Comment: Comme nts: SPECIMEN #2'TROP' Serial specimen #1, #2 or #3: 2Cmeir RICH with results STAT Performed By: #### L 500.2500, L501.4020 ####[facility] [address] [place], [address] GFR/1.73 sq M.predicted among non-blacks MDRD (S/P/Bld) [Vol rate/Area] 50 mL/min/{1.73_m2} Low >60 [facility] Comment on above: Order Comment: Comme nts: SPECIMEN #2'TROP' Serial specimen #1, #2 or #3: 2Cmeir RICH with results STAT Result Comment: Non- GFR Calc Performed By: #### L 500.2500, L501.4020 ####[facility] [address] [place], [address] Glucose [Mass/Vol] 419 mg/dL High 74-106 [facility] Comment on above: Order Comment: Comme nts: SPECIMEN #2'TROP' Serial specimen #1, #2 or #3: Mejia RICH with results STAT Result Comment: Gluc ose result greater than or equal to 200 mg/dLsuggests DIABETES MELLITUS per A.D.A. criteria. Performed By: #### L 500.2500, L501.4020 ####[facility] [address] [place], [address] Potassium [Moles/Vol] 4.2 mmol/L Normal 3.5-5.1 [facility] Comment on above: Order Comment: Comme nts: SPECIMEN #2'TROP' Serial specimen #1, #2 or #3: Mejia RICH with results STAT Performed By: #### L 500.2500, L501.4020 ####[facility] [address] [place], [address] Sodium [Moles/Vol] 136 mmol/L Normal 136-145 [facility] Comment on above: Order Comment: Comme nts: SPECIMEN #2'TROP' Serial specimen #1, #2 or #3: Mejia RICH with results STAT Performed By: #### L 500.2500, L501.4020 ####[facility] [address] [place], [address] Urea nitrogen [Mass/Vol] 22 mg/dL High 7-18 [facility] Comment on above: Order Comment: Comme nts: SPECIMEN #2'TROP' Serial specimen #1, #2 or #3: Mejia RICH with results STAT Performed By: #### L 500.2500, L501.4020 ####[facility] [address] [place], [address] Bedside Glucoseon 05-03-2024 FINGERSTICK GLU 293 mg/dL High 74-106 [facility] Comment on above: Result Comment: MARIA D GEMENT OF PATIENT CARE PER NURSING PROTOCOL Performed By: #### L 501.080 ####[facility] [address] [place], [address] FINGERSTICK GLU 154 mg/dL High 74-106 [facility] Comment on above: Result Comment: MARIA D GEMENT OF PATIENT CARE PER NURSING PROTOCOL Performed By: #### L 501.080 ####[facility] [address] [place], [address] FINGERSTICK GLU 114 mg/dL High 74-106 [facility] Comment on above: Result Comment: MARIA D GEMENT OF PATIENT CARE PER NURSING PROTOCOL Performed By: #### L 501.080 ####[facility] [address] [place], [address] FINGERSTICK GLU 114 mg/dL High 74-106 [facility] Comment on above: Result Comment: MARIA D GEMENT OF PATIENT CARE PER NURSING PROTOCOL Performed By: #### L 501.080 ####[facility] [address] [place], [address] FINGERSTICK GLU 108 mg/dL High 74-106 [facility] Comment on above: Result Comment: MARIA D GEMENT OF PATIENT CARE PER NURSING PROTOCOL Performed By: #### L 501.080 ####[facility] [address] [place], [address] FINGERSTICK GLU 121 mg/dL High 74-106 [facility] Comment on above: Result Comment: MARIA D GEMENT OF PATIENT CARE PER NURSING PROTOCOL Performed By: #### L 501.080 ####[facility] [address] [place], [address] FINGERSTICK GLU 183 mg/dL High 74-106 [facility] Comment on above: Result Comment: MARIA D GEMENT OF PATIENT CARE PER NURSING PROTOCOL Performed By: #### L 501.080 ####[facility] [address] [place], [address] FINGERSTICK GLU 196 mg/dL High 74-106 [facility] Comment on above: Result Comment: MARIA D GEMENT OF PATIENT CARE PER NURSING PROTOCOL Performed By: #### L 501.080 ####[facility] [address] [place], [address] FINGERSTICK GLU 212 mg/dL High 74-106 [facility] Comment on above: Result Comment: MARIA D GEMENT OF PATIENT CARE PER NURSING PROTOCOL Performed By: #### L 501.080 ####[facility] [address] [place], [address] FINGERSTICK GLU 211 mg/dL High 74-106 [facility] Comment on above: Result Comment: MARIA D GEMENT OF PATIENT CARE PER NURSING PROTOCOL Performed By: #### L 501.080 ####[facility] [address] [place], [address] FINGERSTICK GLU 244 mg/dL High 74-106 [facility] Comment on above: Result Comment: MARIA D GEMENT OF PATIENT CARE PER NURSING PROTOCOL Performed By: #### L 501.080 ####[facility] [address] [place], [address] FINGERSTICK GLU 218 mg/dL High 74-106 [facility] Comment on above: Result Comment: MARIA D GEMENT OF PATIENT CARE PER NURSING PROTOCOL Performed By: #### L 501.080 ####[facility] [address] [place], [address] FINGERSTICK GLU 277 mg/dL High 74-106 [facility] Comment on above: Result Comment: MARIA D GEMENT OF PATIENT CARE PER NURSING PROTOCOL Performed By: #### L 501.080 ####[facility] [address] [place], [address] FINGERSTICK GLU 333 mg/dL High 74-106 [facility] Comment on above: Result Comment: MARIA D GEMENT OF PATIENT CARE PER NURSING PROTOCOL Performed By: #### L 501.080 ####[facility] [address] [place], [address] Blood Gases by [facility] 1028- 024 SHAWNA TEST Positive Normal [facility] Comment on above: Performed By: #### L 9000.0800 ####[facility] [address] [place], [address] Base excess Calc (Bld) [Moles/Vol] -19 mmol/L Low -2 to +2 [facility] Comment on above: Performed By: #### L 9000.0800 ####[facility] [address] [place], [address] Blood Gas Type ART Normal [facility] Comment on above: Performed By: #### L 9000.0800 ####[facility] [address] [place], [address] CO2 [Moles/Vol] 10 mmol/L Normal [facility] Comment on above: Performed By: #### L 9000.0800 ####[facility] [address] [place], [address] HCO3 (Bld) [Moles/Vol] 8.9 mmol/L Low 22-26 [facility] Comment on above: Performed By: #### L 9000.0800 ####[facility] [address] [place], [address] Mode Not entered [facility] Comment on above: Performed By: #### L 9000.0800 ####[facility] [address] [place], [address] O2 Delivery Dev Room Air [facility] Comment on above: Performed By: #### L 9000.0800 ####[facility] [address] [place], [address] pCO2 22.5 mmHg Low 35-45 [facility] Comment on above: Performed By: #### L 9000.0800 ####[facility] [address] [place], [address] pH (Bld) 7.20 [pH] Low 7.35-7.45 [facility] Comment on above: Performed By: #### L 9000.0800 ####[facility] [address] [place], [address] PO2 103 mmHG High 75-100 [facility] Comment on above: Performed By: #### L 9000.0800 ####[facility] [address] [place], [address] Read Back By Yes [facility] Comment on above: Performed By: #### L 9000.0800 ####[facility] [address] [place], [address] smith [facility] Comment on above: Performed By: #### L 9000.0800 ####[facility] [address] [place], [address] SITE R Radial [facility] Comment on above: Performed By: #### L 9000.0800 ####[facility] [address] [place], [address] SO2 97 Normal 95-99 [facility] Comment on above: Performed By: #### L 8999.0800 ####[facility] [address] [place], [address] Time Given 21:30:[address] [facility] Comment on above: Performed By: #### L 8999.0800 ####[facility] [address] [place], [address] SHAWNA TEST Positive Normal [facility] Comment on above: Performed By: #### L 8999.0800 ####[facility] [address] [place], [address] Base excess Calc (Bld) [Moles/Vol] -22 mmol/L Low -2 to +2 [facility] Comment on above: Performed By: #### L 8999.0800 ####[facility] [address] [place], [address] Blood Gas Type ART Normal [facility] Comment on above: Performed By: #### L 8999.0800 ####[facility] [address] [place], [address] CO2 [Moles/Vol] 8 mmol/L Normal [facility] Comment on above: Performed By: #### L 0.0800 ####[facility] [address] [place], [address] HCO3 (Bld) [Moles/Vol] 6.9 mmol/L Low 22-26 [facility] Comment on above: Performed By: #### L 0.0800 ####[facility] [address] [place], [address] Mode Not entered Normal [facility] Comment on above: Performed By: #### L 9000.0800 ####[facility] [address] [place], [address] O2 Delivery Dev Room Air [facility] Comment on above: Performed By: #### L 0.0800 ####[facility] [address] [place], [address] pCO2 20.7 mmHg Low 35-45 [facility] Comment on above: Performed By: #### L 0.0800 ####[facility] [address] [place], [address] pH (Bld) 7.13 [pH] Invalid Interpretation Code 7.35-7.45 [facility] Comment on above: Performed By: #### L 0.0800 ####[facility] [address] [place], [address] PO2 95 mmHG Normal 75-100 [facility] Comment on above: Performed By: #### L 0.0800 ####[facility] [address] [place], [address] Read Back By Yes [facility] Comment on above: Performed By: #### L 0.0800 ####[facility] [address] [place], [address] Fernández [facility] Comment on above: Performed By: #### L 0.0800 ####[facility] [address] [place], [address] SITE L Radial Normal [facility] Comment on above: Performed By: #### L 8999.0800 ####[facility] [address] [place], [address] SO2 95 Normal 95-99 [facility] Comment on above: Performed By: #### L 0.0800 ####[facility] [address] [place], [address] Time Given 00:38:[address] [facility] Comment on above: Performed By: #### L 9000.0800 ####[facility] [address] [place], [address] CBC W/Diff, Automatedon 10-2 Absolute Lymph 2.67 X10 3/uL Normal 0.83-4.51 [facility] Comment on above: Performed By: #### L 501.2300, L100.0100, L500.2500, L501.4020, L501.9520 ####[facility] [address] [place], [address] Absolute Neut 5.5 X10 3/uL Normal 2.0-7.7 [facility] Comment on above: Performed By: #### L 501.2300, L100.0100, L500.2500, L501.4020, L501.9520 ####[facility] [address] [place], [address] Basophils/100 WBC (Bld) 0.4 % Normal 0-1 [facility] Comment on above: Performed By: #### L 501.2300, L100.0100, L500.2500, L501.4020, L501.9520 ####[facility] [address] [place], [address] Eosinophils/100 WBC (Bld) 0.2 % Normal 0-5 [facility] Comment on above: Performed By: #### L 501.2300, L100.0100, L500.2500, L501.4020, L501.9520 ####[facility] [address] [place], [address] Erythrocyte distribution width (RBC) [Ratio] 13.0 % Normal 11.6-14.6 [facility] Comment on above: Performed By: #### L 501.2300, L100.0100, L500.2500, L501.4020, L501.9520 ####[facility] [address] [place], [address] Hematocrit (Bld) [Volume fraction] 30.3 % Low 37-47 [facility] Comment on above: Performed By: #### L 501.2300, L100.0100, L500.2500, L501.4020, L501.9520 ####[facility] [address] [place], [address] Hemoglobin (Bld) [Mass/Vol] 10.0 g/dL Low 12.0-15.0 [facility] Comment on above: Performed By: #### L 501.2300, L100.0100, L500.2500, L501.4020, L501.9520 ####[facility] [address] [place], [address] IG% 0.600 Normal 0.0-0.9 [facility] Comment on above: Result Comment: IG% - Immature Granulocytes (promyelocytes, myelocytes andmetamyelocytes) > 1% indicates that a LEFT SHIFT is Present. Performed By: #### L 501.2300, L100.0100, L500.2500, L501.4020, L501.9520 ####[facility] [address] [place], [address] Lymphocytes/100 WBC (Bld) 29.5 % Normal 19-41 [facility] Comment on above: Performed By: #### L 501.2300, L100.0100, L500.2500, L501.4020, L501.9520 ####[facility] [address] [place], [address] MCH (RBC) [Entitic mass] 29.9 pg Normal 27.0-32.0 [facility] Comment on above: Performed By: #### L 501.2300, L100.0100, L500.2500, L501.4020, L501.9520 ####[facility] [address] [place], [address] MCHC (RBC) [Mass/Vol] 33.0 g/dL Normal 32-36 [facility] Comment on above: Performed By: #### L 501.2300, L100.0100, L500.2500, L501.4020, L501.9520 ####[facility] [address] [place], [address] MCV (RBC) [Entitic vol] 90.7 fL Normal 81-99 [facility] Comment on above: Performed By: #### L 501.2300, L100.0100, L500.2500, L501.4020, L501.9520 ####[facility] [address] [place], [address] Monocytes/100 WBC (Bld) 8.6 % Normal 0-10 [facility] Comment on above: Performed By: #### L 501.2300, L100.0100, L500.2500, L501.4020, L501.9520 ####[facility] [address] [place], [address] Neutrophils/100 WBC (Bld) 60.7 % Normal 47-70 [facility] Comment on above: Performed By: #### L 501.2300, L100.0100, L500.2500, L501.4020, L501.9520 ####[facility] [address] [place], [address] Nucleated RBC (Bld) [#/Vol] 0 10*3/uL Normal 0-5 [facility] Comment on above: Performed By: #### L 501.2300, L100.0100, L500.2500, L501.4020, L501.9520 ####[facility] [address] [place], [address] Platelet mean volume (Bld) [Entitic vol] 11.9 fL Normal 6.2-12.0 [facility] Comment on above: Performed By: #### L 501.2300, L100.0100, L500.2500, L501.4020, L501.9520 ####[facility] [address] [place], [address] Platelets (Bld) [#/Vol] 224 10*3/uL Normal 150-450 [facility] Comment on above: Performed By: #### L 501.2300, L100.0100, L500.2500, L501.4020, L501.9520 ####[facility] [address] [place], [address] RBC (Bld) [#/Vol] 3.34 10*6/uL Low 4.2-5.4 [facility] Comment on above: Performed By: #### L 501.2300, L100.0100, L500.2500, L501.4020, L501.9520 ####[facility] [address] [place], [address] RDW SD 42.6 fl Normal 35.1-43.9 [facility] Comment on above: Performed By: #### L 501.2300, L100.0100, L500.2500, L501.4020, L501.9520 ####[facility] [address] [place], [address] WBC (Bld) [#/Vol] 9.1 10*3/uL Normal 4.4-11.0 [facility] Comment on above: Performed By: #### L 501.2300, L100.0100, L500.2500, L501.4020, L501.9520 ####[facility] [address] [place], [address] Hemoglobin A1con 05-03-2024 HbA1c (Bld) [Mass fraction] 13.7 % High 3.8-5.6 [facility] Comment on above: Result Comment: Norm al < 5.7 % Prediabetic 5.7 - 6.4 % Diabetic >or= 6.5 % Please note range changes. Performed By: #### L 500.2500, L505.5000, L501.9985 ####[facility] [address] [place], [address] L501.4020on 05-03-2024 TROPONIN-I HS 9 pg/mL Normal 3.0-54.0 [facility] Comment on above: Order Comment: Comme nts: SPECIMEN #3'TROP' Serial specimen #1, #2 or #3: 3Cmeir RICH with results STAT Result Comment: Plea se Note: New Test Units and Gender Specific Reference Ranges. For more information see Policy Stat Procedure [place] High Sensitivity Troponin (TNIH) and attachments. Performed By: #### L 501.2300, L100.0100, L500.2500, L501.4020, L501.9520 ####[facility] [address] [place], [address] TROPONIN-I HS 8 pg/mL Normal 3.0-54.0 [facility] Comment on above: Order Comment: Comme nts: SPECIMEN #2'TROP' Serial specimen #1, #2 or #3: 2Cmeir RICH with results STAT Result Comment: Plea se Note: New Test Units and Gender Specific Reference Ranges. For more information see Policy Stat Procedure [place] High Sensitivity Troponin (TNIH) and attachments. Performed By: #### L 500.2500, L501.4020 ####[facility] [address] [place], [address] Phosphoruson 05-03-2024 Phosphate [Mass/Vol] 2.1 mg/dL Low 2.5-4.9 [facility] Comment on above: Order Comment: Comme nts: SPECIMEN #3'TROP' Serial specimen #1, #2 or #3: 3Cmeir RICH with results STAT Performed By: #### L 501.2300, L100.0100, L500.2500, L501.4020, L501.9520 ####[facility] [address] [place], [address] Thyroid Stim Hormone (TSH)on 05-03-2024 TSH 0.332 uIU/mL Low 0.358-3.740 [facility] Comment on above: Order Comment: Comme nts: SPECIMEN #3'TROP' Serial specimen #1, #2 or #3: Alex RICH with results STAT Performed By: #### L 501.2300, L100.0100, L500.2500, L501.4020, L501.9520 ####[facility] [address] [place], [address] Urine Drug Screen (VISTA)on 05-03-2024 AMPHETAMINES Negative Normal <1000 ng/mL [facility] Comment on above: Order Comment: U Performed By: #### L 505.5000 ####[facility] [address] [place], [address] BARBITIURATES Negative Normal < 200 ng/mL [facility] Comment on above: Order Comment: U Performed By: #### L 505.5000 ####[facility] [address] [place], [address] BENZODIAZIPINE Negative Normal < 200 ng/mL [facility] Comment on above: Order Comment: U Performed By: #### L 505.5000 ####[facility] [address] [place], [address] COCAINE Negative Normal < 300 ng/mL [facility] Comment on above: Order Comment: U Performed By: #### L 505.5000 ####[facility] [address] [place], [address] ECSTACY Negative Normal < 500 ng/mL [facility] Comment on above: Order Comment: U Performed By: #### L 505.5000 ####[facility] [address] [place], [address] METHADONE Negative Normal < 300 ng/mL [facility] Comment on above: Order Comment: U Performed By: #### L 505.5000 ####[facility] [address] [place], [address] OPIATES Positive Abnormal < 300 ng/mL [facility] Comment on above: Order Comment: U Performed By: #### L 505.5000 ####[facility] [address] [place], [address] PCP Negative Normal < 25 ng/mL [facility] Comment on above: Order Comment: U Performed By: #### L 505.5000 ####[facility] [address] [place], [address] THC Negative Normal < 50 ng/mL [facility] Comment on above: Order Comment: U Performed By: #### L 505.5000 ####[facility] [address] [place], [address] VISTA UDS PH [address] [facility] Comment on above: Order Comment: U Performed By: #### L 505.5000 ####[facility] [address] [place], [address] Venous Blood Gason 4 Blood Gas Type LIZY Normal [facility] Comment on above: Performed By: #### L 9000.0810 ####[facility] [address] [place], [address] CO2 [Moles/Vol] 17 mmol/L Low 23-33 [facility] Comment on above: Performed By: #### L 9000.0810 ####[facility] [address] [place], [address] [facility] Comment on above: Performed By: #### L 9000.0810 ####[facility] [address] [place], [address] HCO3 (Bld) [Moles/Vol] 15 mmol/L Low 22-26 [facility] Comment on above: Performed By: #### L 9000.0810 ####[facility] [address] [place], [address] O2 Delivery Dev Not entered Normal [facility] Comment on above: Performed By: #### L 9000.0810 ####[facility] [address] [place], [address] SITE Not entered Normal [facility] Comment on above: Performed By: #### L 9000.0810 ####[facility] [address] [place], [address] VBG BE -12 mmol/L Low -1.0-3.5 [facility] Comment on above: Performed By: #### L 9000.0810 ####[facility] [address] [place], [address] VBG pCO2 38.2 mmHg Low 41-51 [facility] Comment on above: Performed By: #### L 9000.0810 ####[facility] [address] [place], [address] VBG pH 7.21 Low 7.32-7.42 [facility] Comment on above: Performed By: #### L 9000.0810 ####[facility] [address] [place], [address] VBG PO2 71 mmHg High 25-40 [facility] Comment on above: Performed By: #### L 9000.0810 ####[facility] [address] [place], [address] VBG SO2 90 High 50-70 [facility] Comment on above: Performed By: #### L 9000.0810 ####[facility] [address] [place], [address] 12 Lead EKGon 05-02-2024 [address] [facility] Acetone Serumon 05-02-2024 ACETONE SERUM LARGE Abnormal NEG [facility] Comment on above: Performed By: #### L 501.6900 ####[facility] [address] [place], [address] Alcohol, Blood (Medical)-Ser umon 05-02-2024 SERUM ETOH < 3.[address] [facility] Comment on above: Result Comment: The serum:whole blood ethanol ratio is approximately 1.14and varies slightly with hematocrit.Medical Alcohol reference interval and critical value innon-tolerant individuals; 50 - 100 Impairment 100 Intoxication 100 - 250 Severe Poisoning 250 - 400 Deep/possible fatal coma Performed By: #### L 501.9100 ####[facility] [address] [place], [address] Basic Metabolic Profile (BMP )on 05-02-2024 BUN Normal 7-18 [facility] Comment on above: Order Comment: Call with results STAT Result Comment: YANICK LAUGHLIN TO CANCEL BY JUNE REMELTER Performed By: #### L 500.2500, L505.5000, L501.9985 ####[facility] [address] [place], [address] BUN/CRE Normal 10-20 [facility] Comment on above: Order Comment: Call with results STAT Result Comment: YANICK LAUGHLIN TO CANCEL BY JUNE REMELTER Performed By: #### L 500.2500, L505.5000, L501.9985 ####[facility] [address] [place], [address] CA,Total Normal 8.5-10.1 [facility] Comment on above: Order Comment: Call with results STAT Result Comment: YANICK LAUGHLIN TO CANCEL BY JUNE REMELTER Performed By: #### L 500.2500, L505.5000, L501.9985 ####[facility] [address] [place], [address] CL Normal 98-107 [facility] Comment on above: Order Comment: Call MD with results STAT Result Comment: DUPL ICATE, [place] TO CANCEL BY JUNE REMELTER Performed By: #### L 500.2500, L505.5000, L501.9985 ####[facility] [address] [place], [address] CO2 Normal 21.0-32.0 [facility] Comment on above: Order Comment: Call MD with results STAT Result Comment: DUPL VIRALTE, [place] TO CANCEL BY JUNE REMELTER Performed By: #### L 500.2500, L505.5000, L501.9985 ####[facility] [address] [place], [address] CREAT,SERUM Normal 0.55-1.02 [facility] Comment on above: Order Comment: Call MD with results STAT Result Comment: DUPL VIRALTE, [place] TO CANCEL BY JUNE REMELTER Performed By: #### L 500.2500, L505.5000, L501.9985 ####[facility] [address] [place], [address] EST GFR Normal >60 [facility] Comment on above: Order Comment: Call with results STAT Result Comment: IFTIKHARL VIRALTE, [place] TO CANCEL BY JUNE REMELTER Performed By: #### L 500.2500, L505.5000, L501.9985 ####[facility] [address] [place], [address] EST GFR - AA Normal >60 [facility] Comment on above: Order Comment: Call MD with results STAT Result Comment: DUPL ICATE, [place] TO CANCEL BY JUNE REMELTER Performed By: #### L 500.2500, L505.5000, L501.9985 ####[facility] [address] [place], [address] GAP Normal 5-15 [facility] Comment on above: Order Comment: Call MD with results STAT Result Comment: [employer], [place] TO CANCEL BY JUNE REMELTER Performed By: #### L 500.2500, L505.5000, L501.9985 ####[facility] [address] [place], [address] GLU Normal 74-106 [facility] Comment on above: Order Comment: Call MD with results STAT Result Comment: [employer], [place] TO CANCEL BY JUNE REMELTER Performed By: #### L 500.2500, L505.5000, L501.9985 ####[facility] [address] [place], [address] Potassium Normal 3.5-5.1 [facility] Comment on above: Order Comment: Call with results STAT Result Comment: [employer]SE, [place] TO CANCEL BY JUNE REMELTER Performed By: #### L 500.2500, L505.5000, L501.9985 ####[facility] [address] [place], [address] Basic Metabolic Profile (BMP) Normal 136-145 [facility] Comment on above: Order Comment: Call MD with results STAT Result Comment: IFTIKHARL VIRALTE, [place] TO CANCEL BY JUNE REMELTER Performed By: #### L 500.2500, L505.5000, L501.9985 ####[facility] [address] [place], [address] BUN Normal 7-18 [facility] Comment on above: Result Comment: Canc elled via OM: Duplicate Order Performed By: #### L 500.2500 ####[facility] [address] [place], [address] BUN/CRE Normal 10-20 [facility] Comment on above: Result Comment: Canc elled via OM: Duplicate Order Performed By: #### L 500.2500 ####[facility] [address] [place], [address] CA,Total Normal 8.5-10.1 [facility] Comment on above: Result Comment: Canc elled via OM: Duplicate Order Performed By: #### L 500.2500 ####[facility] [address] [place], [address] CL Normal 98-107 [facility] Comment on above: Result Comment: Canc elled via OM: Duplicate Order Performed By: #### L 500.2500 ####[facility] [address] [place], [address] CO2 Normal 21.0-32.0 [facility] Comment on above: Result Comment: Canc elled via OM: Duplicate Order Performed By: #### L 500.2500 ####[facility] [address] [place], [address] CREAT,SERUM Normal 0.55-1.02 [facility] Comment on above: Result Comment: Canc elled via OM: Duplicate Order Performed By: #### L 500.2500 ####[facility] [address] [place], [address] EST GFR Normal >60 [facility] Comment on above: Result Comment: Canc elled via OM: Duplicate Order Performed By: #### L 500.2500 ####[facility] [address] [place], [address] EST GFR - AA Normal >60 [facility] Comment on above: Result Comment: Canc elled via OM: Duplicate Order Performed By: #### L 500.2500 ####[facility] [address] [place], [address] GAP Normal 5-15 [facility] Comment on above: Result Comment: Canc elled via OM: Duplicate Order Performed By: #### L 500.2500 ####[facility] [address] [place], [address] GLU Normal 74-106 [facility] Comment on above: Result Comment: Canc elled via OM: Duplicate Order Performed By: #### L 500.2500 ####[facility] [address] [place], [address] Potassium Normal 3.5-5.1 [facility] Comment on above: Result Comment: Canc elled via OM: Duplicate Order Performed By: #### L 500.2500 ####[facility] [address] [place], [address] Basic Metabolic Profile (BMP) Normal 136-145 [facility] Comment on above: Result Comment: Canc elled via OM: Duplicate Order Performed By: #### L 500.2500 ####[facility] [address] [place], [address] Bedside Glucoseon 05-02-2024 FINGERSTICK GLU 392 mg/dL High 74-106 [facility] Comment on above: Result Comment: MARIA D GEMENT OF PATIENT CARE PER NURSING PROTOCOL Performed By: #### L 501.080 ####[facility] [address] [place], [address] Blood Gases by CPSon 05-02- 024 BE Normal -2 to +2 [facility] Comment on above: Result Comment: resu lts in already Performed By: #### L 9000.0800 ####[facility] [address] [place], [address] HCO3 Normal 22-26 [facility] Comment on above: Result Comment: resu lts in already Performed By: #### L 9000.0800 ####[facility] [address] [place], [address] pCO2 Normal 35-45 [facility] Comment on above: Result Comment: resu lts in already Performed By: #### L 9000.0800 ####[facility] [address] [place], [address] pH Normal 7.35-7.45 [facility] Comment on above: Result Comment: resu lts in already Performed By: #### L 9000.0800 ####[facility] [address] [place], [address] PO2 Normal 75-100 [facility] Comment on above: Result Comment: resu lts in already Performed By: #### L 9000.0800 ####[facility] [address] [place], [address] SO2 Normal 95-99 [facility] Comment on above: Result Comment: resu lts in already Performed By: #### L 9000.0800 ####[facility] [address] [place], [address] [facility] Comment on above: Result Comment: resu lts in already Performed By: #### L 9000.0800 ####[facility] [address] [place], [address] CBC W/Diff, Automatedon 10-2 Absolute Lymph 1.55 X10 3/uL Normal 0.83-4.51 [facility] Comment on above: Performed By: #### L 501.2450, L300.8000, L100.0100, L501.4020, L500.4050 ####[facility] [address] [place], [address] Absolute Neut 6.1 X10 3/uL Normal 2.0-7.7 [facility] Comment on above: Performed By: #### L 501.2450, L300.8000, L100.0100, L501.4020, L500.4050 ####[facility] [address] [place], [address] Basophils/100 WBC (Bld) 0.5 % Normal 0-1 [facility] Comment on above: Performed By: #### L 501.2450, L300.8000, L100.0100, L501.4020, L500.4050 ####[facility] [address] [place], [address] Eosinophils/100 WBC (Bld) 0.5 % Normal 0-5 [facility] Comment on above: Performed By: #### L 501.2450, L300.8000, L100.0100, L501.4020, L500.4050 ####[facility] [address] [place], [address] Erythrocyte distribution width (RBC) [Ratio] 12.8 % Normal 11.6-14.6 [facility] Comment on above: Performed By: #### L 501.2450, L300.8000, L100.0100, L501.4020, L500.4050 ####[facility] [address] [place], [address] Hematocrit (Bld) [Volume fraction] 38.0 % Normal 37-47 [facility] Comment on above: Performed By: #### L 501.2450, L300.8000, L100.0100, L501.4020, L500.4050 ####[facility] [address] [place], [address] Hemoglobin (Bld) [Mass/Vol] 12.4 g/dL Normal 12.0-15.0 [facility] Comment on above: Performed By: #### L 501.2450, L300.8000, L100.0100, L501.4020, L500.4050 ####[facility] [address] [place], [address] IG% 0.500 Normal 0.0-0.9 [facility] Comment on above: Result Comment: IG% - Immature Granulocytes (promyelocytes, myelocytes andmetamyelocytes) > 1% indicates that a LEFT SHIFT is Present. Performed By: #### L 501.2450, L300.8000, L100.0100, L501.4020, L500.4050 ####[facility] [address] [place], [address] Lymphocytes/100 WBC (Bld) 18.9 % Low 19-41 [facility] Comment on above: Performed By: #### L 501.2450, L300.8000, L100.0100, L501.4020, L500.4050 ####[facility] [address] [place], [address] MCH (RBC) [Entitic mass] 29.6 pg Normal 27.0-32.0 [facility] Comment on above: Performed By: #### L 501.2450, L300.8000, L100.0100, L501.4020, L500.4050 ####[facility] [address] [place], [address] MCHC (RBC) [Mass/Vol] 32.6 g/dL Normal 32-36 [facility] Comment on above: Performed By: #### L 501.2450, L300.8000, L100.0100, L501.4020, L500.4050 ####[facility] [address] [place], [address] MCV (RBC) [Entitic vol] 90.7 fL Normal 81-99 [facility] Comment on above: Performed By: #### L 501.2450, L300.8000, L100.0100, L501.4020, L500.4050 ####[facility] [address] [place], [address] Monocytes/100 WBC (Bld) 5.5 % Normal 0-10 [facility] Comment on above: Performed By: #### L 501.2450, L300.8000, L100.0100, L501.4020, L500.4050 ####[facility] [address] [place], [address] Neutrophils/100 WBC (Bld) 74.1 % High 47-70 [facility] Comment on above: Performed By: #### L 501.2450, L300.8000, L100.0100, L501.4020, L500.4050 ####[facility] [address] [place], [address] Nucleated RBC (Bld) [#/Vol] 0 10*3/uL Normal 0-5 [facility] Comment on above: Performed By: #### L 501.2450, L300.8000, L100.0100, L501.4020, L500.4050 ####[facility] [address] [place], [address] Platelet mean volume (Bld) [Entitic vol] 11.7 fL Normal 6.2-12.0 [facility] Comment on above: Performed By: #### L 501.2450, L300.8000, L100.0100, L501.4020, L500.4050 ####[facility] [address] [place], [address] Platelets (Bld) [#/Vol] 288 10*3/uL Normal 150-450 [facility] Comment on above: Performed By: #### L 501.2450, L300.8000, L100.0100, L501.4020, L500.4050 ####[facility] [address] [place], [address] RBC (Bld) [#/Vol] 4.19 10*6/uL Low 4.2-5.4 [facility] Comment on above: Performed By: #### L 501.2450, L300.8000, L100.0100, L501.4020, L500.4050 ####[facility] [address] [place], [address] RDW SD 42.3 fl Normal 35.1-43.9 [facility] Comment on above: Performed By: #### L 501.2450, L300.8000, L100.0100, L501.4020, L500.4050 ####[facility] [address] [place], [address] WBC (Bld) [#/Vol] 8.2 10*3/uL Normal 4.4-11.0 [facility] Comment on above: Performed By: #### L 501.2450, L300.8000, L100.0100, L501.4020, L500.4050 ####[facility] [address] [place], [address] Chest PA and Lateralon 05-02 Chest PA and Lateral Normal [facility] Comprehensive Metabolic Prof ilon 05-02-2024 Albumin [Mass/Vol] 4.3 g/dL Normal 3.2-5.0 [facility] Comment on above: Order Comment: 'TROP ' Serial specimen #1, #2 or #3: 1 Performed By: #### L 501.2450, L300.8000, L100.0100, L501.4020, L500.4050 ####[facility] [address] [place], [address] Albumin/Globulin [Mass ratio] 1.1 {ratio} Normal 0.9-2.4 [facility] Comment on above: Order Comment: 'TROP ' Serial specimen #1, #2 or #3: 1 Performed By: #### L 501.2450, L300.8000, L100.0100, L501.4020, L500.4050 ####[facility] [address] [place], [address] ALK P 112 U/L Normal 45-117 [facility] Comment on above: Order Comment: 'TROP ' Serial specimen #1, #2 or #3: 1 Performed By: #### L 501.2450, L300.8000, L100.0100, L501.4020, L500.4050 ####[facility] [address] [place], [address] ALT [Catalytic activity/Vol] 15 U/L Normal 13-56 [facility] Comment on above: Order Comment: 'TROP ' Serial specimen #1, #2 or #3: 1 Performed By: #### L 501.2450, L300.8000, L100.0100, L501.4020, L500.4050 ####[facility] [address] [place], [address] AST [Catalytic activity/Vol] 7 U/L Low 15-37 [facility] Comment on above: Order Comment: 'TROP ' Serial specimen #1, #2 or #3: 1 Performed By: #### L 501.2450, L300.8000, L100.0100, L501.4020, L500.4050 ####[facility] [address] [place], [address] Bilirubin [Mass/Vol] 0.50 mg/dL Normal 0.20-1.00 [facility] Comment on above: Order Comment: 'TROP ' Serial specimen #1, #2 or #3: 1 Result Comment: For patients on eltrombopag therapy, use of Dimension [place] TBIL is not recommended. Performed By: #### L 501.2450, L300.8000, L100.0100, L501.4020, L500.4050 ####[facility] [address] [place], [address] BUN/CRE 16.5 RATIO Normal 10-20 [facility] Comment on above: Order Comment: 'TROP ' Serial specimen #1, #2 or #3: 1 Performed By: #### L 501.2450, L300.8000, L100.0100, L501.4020, L500.4050 ####[facility] [address] [place], [address] CA,Total 10.1 mg/dL Normal 8.5-10.1 [facility] Comment on above: Order Comment: 'TROP ' Serial specimen #1, #2 or #3: 1 Performed By: #### L 501.2450, L300.8000, L100.0100, L501.4020, L500.4050 ####[facility] [address] [place], [address] Chloride [Moles/Vol] 101 mmol/L Normal 98-107 [facility] Comment on above: Order Comment: 'TROP ' Serial specimen #1, #2 or #3: 1 Performed By: #### L 501.2450, L300.8000, L100.0100, L501.4020, L500.4050 ####[facility] [address] [place], [address] CO2 [Moles/Vol] 10.0 mmol/L Low 21.0-32.0 [facility] Comment on above: Order Comment: 'TROP ' Serial specimen #1, #2 or #3: 1 Performed By: #### L 501.2450, L300.8000, L100.0100, L501.4020, L500.4050 ####[facility] [address] [place], [address] Creatinine [Mass/Vol] 1.33 mg/dL High 0.55-1.02 [facility] Comment on above: Order Comment: 'TROP ' Serial specimen #1, #2 or #3: 1 Result Comment: The validity of the calculated GFR GFRAA in patients over70 years has not been determined. Clinical correlation isessential. Performed By: #### L 501.2450, L300.8000, L100.0100, L501.4020, L500.4050 ####[facility] [address] [place], [address] ECRCL 36.00 ml/min Normal [facility] Comment on above: Order Comment: 'TROP ' Serial specimen #1, #2 or #3: 1 Performed By: #### L 501.2450, L300.8000, L100.0100, L501.4020, L500.4050 ####[facility] [address] [place], [address] EST GFR - AA 52 mL/min Low >60 [facility] Comment on above: Order Comment: 'TROP ' Serial specimen #1, #2 or #3: 1 Result Comment: Afri can Mexican GFR Calc Performed By: #### L 501.2450, L300.8000, L100.0100, L501.4020, L500.4050 ####[facility] [address] [place], [address] GAP 21 High 5-15 [facility] Comment on above: Order Comment: 'TROP ' Serial specimen #1, #2 or #3: 1 Performed By: #### L 501.2450, L300.8000, L100.0100, L501.4020, L500.4050 ####[facility] [address] [place], [address] GFR/1.73 sq M.predicted among non-blacks MDRD (S/P/Bld) [Vol rate/Area] 43 mL/min/{1.73_m2} Low >60 [facility] Comment on above: Order Comment: 'TROP ' Serial specimen #1, #2 or #3: 1 Result Comment: Non- GFR Calc Performed By: #### L 501.2450, L300.8000, L100.0100, L501.4020, L500.4050 ####[facility] [address] [place], [address] Globulin (S) [Mass/Vol] 4.0 g/dL Normal 2.2-4.2 [facility] Comment on above: Order Comment: 'TROP ' Serial specimen #1, #2 or #3: 1 Performed By: #### L 501.2450, L300.8000, L100.0100, L501.4020, L500.4050 ####[facility] [address] [place], [address] Glucose [Mass/Vol] 437 mg/dL High 74-106 [facility] Comment on above: Order Comment: 'TROP ' Serial specimen #1, #2 or #3: 1 Result Comment: Gluc ose result greater than or equal to 200 mg/dLsuggests DIABETES MELLITUS per A.D.A. criteria. Performed By: #### L 501.2450, L300.8000, L100.0100, L501.4020, L500.4050 ####[facility] [address] [place], [address] Potassium [Moles/Vol] 3.8 mmol/L Normal 3.5-5.1 [facility] Comment on above: Order Comment: 'TROP ' Serial specimen #1, #2 or #3: 1 Performed By: #### L 501.2450, L300.8000, L100.0100, L501.4020, L500.4050 ####[facility] [address] [place], [address] Sodium [Moles/Vol] 132 mmol/L Low 136-145 [facility] Comment on above: Order Comment: 'TROP ' Serial specimen #1, #2 or #3: 1 Performed By: #### L 501.2450, L300.8000, L100.0100, L501.4020, L500.4050 ####[facility] [address] [place], [address] T PROT 8.3 g/dL High 6.4-8.2 [facility] Comment on above: Order Comment: 'TROP ' Serial specimen #1, #2 or #3: 1 Performed By: #### L 501.2450, L300.8000, L100.0100, L501.4020, L500.4050 ####[facility] [address] [place], [address] Urea nitrogen [Mass/Vol] 22 mg/dL High 7-18 [facility] Comment on above: Order Comment: 'TROP ' Serial specimen #1, #2 or #3: 1 Performed By: #### L 501.2450, L300.8000, L100.0100, L501.4020, L500.4050 ####[facility] [address] [place], [address] D-Dimer Quantitative (DVT/PE )on 05-02-2024 D-DIMER QUANT 0.37 FEU/ug/m Normal 0.27-0.49 [facility] Comment on above: Result Comment: NORM AL D-Dimer level (<0.50) indicates no DVT or PE. Performed By: #### L 501.2450, L300.8000, L100.0100, L501.4020, L500.4050 ####[facility] [address] [place], [address] Emergency Department Summary on 05-02-2024 Emergency Department Summary Normal [facility] H AND P Exam - [place] 05-02-2024 H&P Exam - Hospitalist Normal [facility] L501.4020on 05-02-2024 TROPONIN-I HS 5 pg/mL Normal 3.0-54.0 [facility] Comment on above: Order Comment: 'TROP ' Serial specimen #1, #2 or #3: 1 Result Comment: Plefifi gabriel Note: New Test Units and Gender Specific Reference Ranges. For more information see Policy Stat Procedure [place] High Sensitivity Troponin (TNIH) and attachments. Performed By: #### L 501.2450, L300.8000, L100.0100, L501.4020, L500.4050 ####[facility] [address] [place], [address] Lactic Acidon 05-02-2024 Lactate [Moles/Vol] 0.9 mmol/L Normal 0.4-1.9 [facility] Comment on above: Order Comment: Y Performed By: #### L 503.6565 ####[facility] [address] [place], [address] Lipaseon 05-02-2024 Lipase [Catalytic activity/Vol] 41 U/L Normal 13-75 [facility] Comment on above: Order Comment: 'TROP ' Serial specimen #1, #2 or #3: 1 Result Comment: Lindy gabriel note:LIPASE revised reference range effective 22.New Lipase methodology. Expected to produce lower valuesthan the previous assay method.NEW Reference Range: 13 - 75 U/L Performed By: #### L 501.2450, L300.8000, L100.0100, L501.4020, L500.4050 ####[facility] [address] [place], [address] Magnesiumon 05-02-2024 Magnesium [Mass/Vol] 2.2 mg/dL Normal 1.6-2.6 [facility] Comment on above: Performed By: #### L 501.5200 ####[facility] [address] [place], [address] Osmolality, Serumon 05-02-20 24 OSMOLALITY,SER 334 mOsm/KG High 280-301 [facility] Comment on above: Order Comment: Comme nts: Add to ER Lab draw Performed By: #### L 501.7300 ####[facility] [address] [place], [address] Urinalysis, Completeon 05-02 BACTERIA 1+ /hpf Normal None Seen [facility] Comment on above: Order Comment: CLEAN CATCH Performed By: #### L 400.0001 ####[facility] [address] [place], [address] CAST,FINE GRAN 0-5 SEEN Normal 0-5 [facility] Comment on above: Order Comment: CLEAN CATCH Performed By: #### L 400.0001 ####[facility] [address] [place], [address] CAST,HYALINE 0-5 SEEN Normal 0-5 [facility] Comment on above: Order Comment: CLEAN CATCH Performed By: #### L 400.0001 ####[facility] [address] [place], [address] EPI,SQUAMOUS 5-10 SEEN Normal 5-10 [facility] Comment on above: Order Comment: CLEAN CATCH Performed By: #### L 400.0001 ####[facility] [address] [place], [address] WBC 25-50 SEEN Normal 0-5 [facility] Comment on above: Order Comment: CLEAN CATCH Performed By: #### L 400.0001 ####[facility] [address] [place], [address] KETONE UR 150 mg/dl Abnormal Negative [facility] Comment on above: Order Comment: CLEAN CATCH Result Comment: CRIT ICAL VALUE *HCRITICAL VALUE CALLED TO APOLONIA [id number] Bruce Alexandra.RESULTS READ BACK BY SAME. Performed By: #### L 400.0001 ####[facility] [address] [place], [address] BILIRUBIN URINE Negative Normal Negative [facility] Comment on above: Order Comment: CLEAN CATCH Performed By: #### L 400.0001 ####[facility] [address] [place], [address] Clarity (U) Clear Normal Clear [facility] Comment on above: Order Comment: CLEAN CATCH Performed By: #### L 400.0001 ####[facility] [address] [place], [address] Color (U) Straw Normal Yellow [facility] Comment on above: Order Comment: CLEAN CATCH Performed By: #### L 400.0001 ####[facility] [address] [place], [address] GLUCOSE, UR 1000 mg/dl Abnormal Normal [facility] Comment on above: Order Comment: CLEAN CATCH Performed By: #### L 400.0001 ####[facility] [address] [place], [address] LEUK ESTERASE 100 /ul Abnormal Negative [facility] Comment on above: Order Comment: CLEAN CATCH Performed By: #### L 400.0001 ####[facility] [address] [place], [address] Nitrite Ql (U) Negative Normal Negative [facility] Comment on above: Order Comment: CLEAN CATCH Performed By: #### L 400.0001 ####[facility] [address] [place], [address] OCCULT BLOOD-UR 10 /ul Abnormal Negative [facility] Comment on above: Order Comment: CLEAN CATCH Performed By: #### L 400.0001 ####[facility] [address] [place], [address] pH UR 5.0 Normal 5.0 - 8.0 [facility] Comment on above: Order Comment: CLEAN CATCH Performed By: #### L 400.0001 ####[facility] [address] [facility] [address] PROT DIPSTX 100 mg/dl Abnormal Negative [facility] Comment on above: Order Comment: CLEAN CATCH Performed By: #### L 400.0001 ####[facility] [address] [place], [address] SP.GR. DIPSTX 1.025 Normal 1.002-1.030 [facility] Comment on above: Order Comment: CLEAN CATCH Performed By: #### L 400.0001 ####[facility] [address] [place], [address] UROBILI Normal Normal Normal [facility] Comment on above: Order Comment: CLEAN CATCH Performed By: #### L 400.0001 ####[facility] [address] [place], [address] Mucus Ql (Urine sed) 0 SEEN Normal [facility] Comment on above: Order Comment: CLEAN CATCH Performed By: #### L 400.0001 ####[facility] [address] [place], [address] RBC 0 SEEN Normal 0-5 [facility] Comment on above: Order Comment: CLEAN CATCH Performed By: #### L 400.0001 ####[facility] [address] [place], [address] Urine Drug Screen (VISTA)on 05-02-[address] [facility] Comment on above: Result Comment: NOT ENOUGH URINECONFIRMATORY TESTING FOR ALL POSITIVE URINE DRUG SCREENRESULTS WILL ONLY BE SENT OUT UPON PHYSICIAN ORDER.VISTA Urine Drug Screen methods provide only preliminaryanalytical test results. A more specific alternate chemicalmethod must be used in order to obtain a confirmedanalytical result. Gas chromatography/mass spectrometery(GC/MS) is the preferred confirmatory method. Clinicalconsideration and professional judgement should be appliedto any drug of abuse test result, particularly whenpreliminary positive results are used.URINE TCA TESTING MUST BE ORDERED SEPARATELY. USE TESTMNEMONIC: UTCA Performed By: #### L 500.2500, L505.5000, L501.9985 ####[facility] [address] [place], [address] AMPHETAMINES Normal <1000 ng/mL [facility] Comment on above: Result Comment: NOT ENOUGH URINE Performed By: #### L 500.2500, L505.5000, L501.9985 ####[facility] [address] [place], [address] BARBITIURATES Normal < 200 ng/mL [facility] Comment on above: Result Comment: NOT ENOUGH URINE Performed By: #### L 500.2500, L505.5000, L501.9985 ####[facility] [address] [facility] [address] BENZODIAZIPINE Normal < 200 ng/mL [facility] Comment on above: Result Comment: NOT ENOUGH URINE Performed By: #### L 500.2500, L505.5000, L501.9985 ####[facility] [address] [place], [address] COCAINE Normal < 300 ng/mL [facility] Comment on above: Result Comment: NOT ENOUGH URINE Performed By: #### L 500.2500, L505.5000, L501.9985 ####[facility] [address] [place], [address] ECSTACY Normal < 500 ng/mL [facility] Comment on above: Result Comment: NOT ENOUGH URINE Performed By: #### L 500.2500, L505.5000, L501.9985 ####[facility] [address] [place], [address] METHADONE Normal < 300 ng/mL [facility] Comment on above: Result Comment: NOT ENOUGH URINE Performed By: #### L 500.2500, L505.5000, L501.9985 ####[facility] [address] [place], [address] OPIATES Normal < 300 ng/mL [facility] Comment on above: Result Comment: NOT ENOUGH URINE Performed By: #### L 500.2500, L505.5000, L501.9985 ####[facility] [address] [place], [address] PCP Normal < 25 ng/mL [facility] Comment on above: Result Comment: NOT ENOUGH URINE Performed By: #### L 500.2500, L505.5000, L501.9985 ####[facility] [address] [place], [address] THC Normal < 50 ng/mL [facility] Comment on above: Result Comment: NOT ENOUGH URINE Performed By: #### L 500.2500, L505.5000, L501.9985 ####[facility] [address] [place], [address] VISTA UDS PH Normal [facility] Comment on above: Result Comment: NOT ENOUGH URINE Performed By: #### L 500.2500, L505.5000, L501.9985 ####[facility] [address] [place], [address] Bedside Glucoseon 03-09-2024 FINGERSTICK GLU 379 mg/dL High 74-106 [facility] Comment on above: Result Comment: MARIA D GEMENT OF PATIENT CARE PER NURSING PROTOCOL Performed By: #### L 501.080 ####[facility] [address] [place], [address] FINGERSTICK GLU 40 mg/dL Invalid Interpretation Code [address] [place] [address] Comment on above: Result Comment: MARIA D GEMENT OF PATIENT CARE PER NURSING PROTOCOL Performed By: #### L 501.080 ####[facility] [address] [place], [address] FINGERSTICK GLU 35 mg/dL Invalid Interpretation Code [address] [place] [address] Comment on above: Result Comment: Repe at TestMANAGEMENT OF PATIENT CARE PER NURSING PROTOCOL Performed By: #### L 501.080 ####[facility] [address] [place], [address] Basic Metabolic Profile (BMP )on 03-05-2024 BUN/CRE 4.9 RATIO Low 10-20 [facility] Comment on above: Performed By: #### L 500.2500, L501.2300 ####[facility] [address] [place], [address] CA,Total 8.9 mg/dL Normal 8.5-10.1 [facility] Comment on above: Performed By: #### L 500.2500, L501.2300 ####[facility] [address] [place], [address] Chloride [Moles/Vol] 106 mmol/L Normal 98-107 [facility] Comment on above: Performed By: #### L 500.2500, L501.2300 ####[facility] [address] [place], [address] CO2 [Moles/Vol] 31.0 mmol/L Normal 21.0-32.0 [facility] Comment on above: Performed By: #### L 500.2500, L501.2300 ####[facility] [address] [place], [address] Creatinine [Mass/Vol] 0.61 mg/dL Normal 0.55-1.02 [facility] Comment on above: Result Comment: The validity of the calculated GFR GFRAA in patients over70 years has not been determined. Clinical correlation isessential. Performed By: #### L 500.2500, L501.2300 ####[facility] [address] [place], [address] ECRCL 80.12 ml/min Normal [facility] Comment on above: Performed By: #### L 500.2500, L501.2300 ####[facility] [address] [place], [address] EST GFR - AA 127 mL/min Normal >60 [facility] Comment on above: Result Comment: Afri can Mexican GFR Calc Performed By: #### L 500.2500, L501.2300 ####[facility] [address] [place], [address] GAP 4 Low 5-15 [facility] Comment on above: Performed By: #### L 500.2500, L501.2300 ####[facility] [address] [place], [address] GFR/1.73 sq M.predicted among non-blacks MDRD (S/P/Bld) [Vol rate/Area] 105 mL/min/{1.73_m2} Normal >60 [facility] Comment on above: Result Comment: Non- GFR Calc Performed By: #### L 500.2500, L501.2300 ####[facility] [address] [place], [address] Glucose [Mass/Vol] 147 mg/dL High 74-106 [facility] Comment on above: Result Comment: Fast ing Glucose result greater than or equal to 126 mg/dLsuggests DIABETES MELLITUS per A.D.A. criteria. Performed By: #### L 500.2500, L501.2300 ####[facility] [address] [place], [address] Potassium [Moles/Vol] 2.7 mmol/L Invalid Interpretation Code 3.5-5.1 [facility] Comment on above: Result Comment: Crit ical Result(s) Called at: 07:24:22 03/05/2024 by: Marifer Arellano RN ([facility]). Results read back by same. Performed By: #### L 500.2500, L501.2300 ####[facility] [address] [place], [address] Sodium [Moles/Vol] 141 mmol/L Normal 136-145 [facility] Comment on above: Performed By: #### L 500.2500, L501.2300 ####[facility] [address] [place], [address] Urea nitrogen [Mass/Vol] 3 mg/dL Low 7-18 [facility] Comment on above: Performed By: #### L 500.2500, L501.2300 ####[facility] [address] [place], [address] Bedside Glucoseon 03-05-2024 FINGERSTICK GLU 220 mg/dL High 74-106 [facility] Comment on above: Result Comment: MARIA D SERRANO OF PATIENT CARE PER NURSING PROTOCOL Performed By: #### L 501.080 ####[facility] [address] [place], [address] FINGERSTICK GLU 132 mg/dL High 74-106 [facility] Comment on above: Result Comment: MARIA D GEMENT OF PATIENT CARE PER NURSING PROTOCOL Performed By: #### L 501.080 ####[facility] [address] [place], [address] FINGERSTICK GLU 113 mg/dL High 74-106 [facility] Comment on above: Result Comment: MARIA D GEMENT OF PATIENT CARE PER NURSING PROTOCOL Performed By: #### L 501.080 ####[facility] [address] [place], [address] Discharge Instructionon 02-06 Discharge Instruction Normal [facility] Phosphoruson 03-05-2024 Phosphate [Mass/Vol] 2.8 mg/dL Normal 2.5-4.9 [facility] Comment on above: Performed By: #### L 500.2500, L501.2300 ####[facility] [address] [place], [address] Basic Metabolic Profile (BMP )on 03-04-2024 BUN/CRE 5.9 RATIO Low 10-20 [facility] Comment on above: Performed By: #### L 500.2500 ####[facility] [address] [place], [address] CA,Total 8.9 mg/dL Normal 8.5-10.1 [facility] Comment on above: Performed By: #### L 500.2500 ####[facility] [address] [place], [address] Chloride [Moles/Vol] 110 mmol/L High 98-107 [facility] Comment on above: Performed By: #### L 500.2500 ####[facility] [address] [place], [address] CO2 [Moles/Vol] 28.0 mmol/L Normal 21.0-32.0 [facility] Comment on above: Performed By: #### L 500.2500 ####[facility] [address] [place], [address] Creatinine [Mass/Vol] 0.68 mg/dL Normal 0.55-1.02 [facility] Comment on above: Result Comment: The validity of the calculated GFR GFRAA in patients over70 years has not been determined. Clinical correlation isessential. Performed By: #### L 500.2500 ####[facility] [address] [place], [address] ECRCL 71.87 ml/min Normal [facility] Comment on above: Performed By: #### L 500.2500 ####[facility] [address] [place], [address] EST GFR - AA 113 mL/min Normal >60 [facility] Comment on above: Result Comment: Afri can Mexican GFR Calc Performed By: #### L 500.2500 ####[facility] [address] [place], [address] GAP 3 Low 5-15 [facility] Comment on above: Performed By: #### L 500.2500 ####[facility] [address] [place], [address] GFR/1.73 sq M.predicted among non-blacks MDRD (S/P/Bld) [Vol rate/Area] 93 mL/min/{1.73_m2} Normal >60 [facility] Comment on above: Result Comment: Non- GFR Calc Performed By: #### L 500.2500 ####[facility] [address] [place], [address] Glucose [Mass/Vol] 163 mg/dL High 74-106 [facility] Comment on above: Result Comment: Fast ing Glucose result greater than or equal to 126 mg/dLsuggests DIABETES MELLITUS per A.D.A. criteria. Performed By: #### L 500.2500 ####[facility] [address] [place], [address] Potassium [Moles/Vol] 3.0 mmol/L Low 3.5-5.1 [facility] Comment on above: Performed By: #### L 500.2500 ####[facility] [address] [place], [address] Sodium [Moles/Vol] 141 mmol/L Normal 136-145 [facility] Comment on above: Performed By: #### L 500.2500 ####[facility] [address] [place], [address] Urea nitrogen [Mass/Vol] 4 mg/dL Low 7-18 [facility] Comment on above: Performed By: #### L 500.2500 ####[facility] [address] [place], [address] BUN/CRE 8.7 RATIO Low 10-20 [facility] Comment on above: Performed By: #### L 500.2500 ####[facility] [address] [place], [address] CA,Total 8.9 mg/dL Normal 8.5-10.1 [facility] Comment on above: Performed By: #### L 500.2500 ####[facility] [address] [place], [address] Chloride [Moles/Vol] 110 mmol/L High 98-107 [facility] Comment on above: Performed By: #### L 500.2500 ####[facility] [address] [place], [address] CO2 [Moles/Vol] 27.0 mmol/L Normal 21.0-32.0 [facility] Comment on above: Performed By: #### L 500.2500 ####[facility] [address] [place], [address] Creatinine [Mass/Vol] 0.57 mg/dL Normal 0.55-1.02 [facility] Comment on above: Result Comment: The validity of the calculated GFR GFRAA in patients over70 years has not been determined. Clinical correlation isessential. Performed By: #### L 500.2500 ####[facility] [address] [place], [address] ECRCL 85.74 ml/min Normal [facility] Comment on above: Performed By: #### L 500.2500 ####[facility] [address] [place], [address] EST GFR - AA 137 mL/min Normal >60 [facility] Comment on above: Result Comment: Afri can Mexican GFR Calc Performed By: #### L 500.2500 ####[facility] [address] [place], [address] GAP 5 Normal 5-15 [facility] Comment on above: Performed By: #### L 500.2500 ####[facility] [address] [place], [address] GFR/1.73 sq M.predicted among non-blacks MDRD (S/P/Bld) [Vol rate/Area] 114 mL/min/{1.73_m2} Normal >60 [facility] Comment on above: Result Comment: Non- GFR Calc Performed By: #### L 500.2500 ####[facility] [address] [place], [address] Glucose [Mass/Vol] 118 mg/dL High 74-106 [facility] Comment on above: Result Comment: Fast ing Glucose result from 100 to 125 mg/dLsuggests IMPAIRED HOMEOSTASIS per A.D.A. criteria. Performed By: #### L 500.2500 ####[facility] [address] [place], [address] Potassium [Moles/Vol] 2.5 mmol/L Invalid Interpretation Code 3.5-5.1 [facility] Comment on above: Result Comment: Crit ical Result(s) Called at: 06:44:23 03/04/2024 by:Nina Guajardo to Jayde. Results read back by same. Performed By: #### L 500.2500 ####[facility] [address] [place], [address] Sodium [Moles/Vol] 142 mmol/L Normal 136-145 [facility] Comment on above: Performed By: #### L 500.2500 ####[facility] [address] [place], [address] Urea nitrogen [Mass/Vol] 5 mg/dL Low 7-18 [facility] Comment on above: Performed By: #### L 500.2500 ####[facility] [address] [place], [address] Bedside Glucoseon 03-04-2024 FINGERSTICK GLU 217 mg/dL High 74-106 [facility] Comment on above: Result Comment: MARIA D GEMENT OF PATIENT CARE PER NURSING PROTOCOL Performed By: #### L 501.080 ####[facility] [address] [place], [address] FINGERSTICK GLU 82 mg/dL Normal 74-106 [facility] Comment on above: Result Comment: MARIA D GEMENT OF PATIENT CARE PER NURSING PROTOCOL Performed By: #### L 501.080 ####[facility] [address] [place], [address] FINGERSTICK GLU 181 mg/dL High 74-106 [facility] Comment on above: Result Comment: MARIA D GEMENT OF PATIENT CARE PER NURSING PROTOCOL Performed By: #### L 501.080 ####[facility] [address] [place], [address] FINGERSTICK GLU 112 mg/dL High 74-106 [facility] Comment on above: Result Comment: MARIA D GEMENT OF PATIENT CARE PER NURSING PROTOCOL Performed By: #### L 501.080 ####[facility] [address] [place], [address] FINGERSTICK GLU 107 mg/dL High 74-106 [facility] Comment on above: Result Comment: MARIA D GEMENT OF PATIENT CARE PER NURSING PROTOCOL Performed By: #### L 501.080 ####[facility] [address] [place], [address] FINGERSTICK GLU 50 mg/dL Low 74-106 [facility] Comment on above: Result Comment: MARIA D GEMENT OF PATIENT CARE PER NURSING PROTOCOL Performed By: #### L 501.080 ####[facility] [address] [place], [address] Magnesiumon 03-04-2024 Magnesium [Mass/Vol] 2.0 mg/dL Normal 1.6-2.6 [facility] Comment on above: Performed By: #### L 501.2300, L501.5200 ####[facility] [address] [place], [address] Phosphoruson 03-04-2024 Phosphate [Mass/Vol] 1.2 mg/dL Low 2.5-4.9 [facility] Comment on above: Performed By: #### L 501.2300, L501.5200 ####[facility] [address] [place], [address] Basic Metabolic Profile (BMP )on 03-03-2024 BUN/CRE 12.3 RATIO Normal 10-20 [facility] Comment on above: Performed By: #### L 500.2500, L100.0100 ####[facility] [address] [place], [address] CA,Total 9.6 mg/dL Normal 8.5-10.1 [facility] Comment on above: Performed By: #### L 500.2500, L100.0100 ####[facility] [address] [place], [address] Chloride [Moles/Vol] 115 mmol/L High 98-107 [facility] Comment on above: Performed By: #### L 500.2500, L100.0100 ####[facility] [address] [place], [address] CO2 [Moles/Vol] 21.0 mmol/L Normal 21.0-32.0 [facility] Comment on above: Performed By: #### L 500.2500, L100.0100 ####[facility] [address] [place], [address] Creatinine [Mass/Vol] 0.73 mg/dL Normal 0.55-1.02 [facility] Comment on above: Result Comment: The validity of the calculated GFR GFRAA in patients over70 years has not been determined. Clinical correlation isessential. Performed By: #### L 500.2500, L100.0100 ####[facility] [address] [place], [address] ECRCL 66.95 ml/min Normal [facility] Comment on above: Performed By: #### L 500.2500, L100.0100 ####[facility] [address] [place], [address] EST GFR - AA 103 mL/min Normal >60 [facility] Comment on above: Result Comment: Afri can Mexican GFR Calc Performed By: #### L 500.2500, L100.0100 ####[facility] [address] [place], [address] GAP 5 Normal 5-15 [facility] Comment on above: Performed By: #### L 500.2500, L100.0100 ####[facility] [address] [place], [address] GFR/1.73 sq M.predicted among non-blacks MDRD (S/P/Bld) [Vol rate/Area] 85 mL/min/{1.73_m2} Normal >60 [facility] Comment on above: Result Comment: Non- GFR Calc Performed By: #### L 500.2500, L100.0100 ####[facility] [address] [place], [address] Glucose [Mass/Vol] 67 mg/dL Low 74-106 [facility] Comment on above: Performed By: #### L 500.2500, L100.0100 ####[facility] [address] [place], [address] Potassium [Moles/Vol] 2.6 mmol/L Invalid Interpretation Code 3.5-5.1 [facility] Comment on above: Result Comment: Crit ical Result(s) Called at: 07:53:32 03/03/2024 by: Marifer Frances RN ([facility]). Results read back by same. Performed By: #### L 500.2500, L100.0100 ####[facility] [address] [place], [address] Sodium [Moles/Vol] 141 mmol/L Normal 136-145 [facility] Comment on above: Performed By: #### L 500.2500, L100.0100 ####[facility] [address] [place], [address] Urea nitrogen [Mass/Vol] 9 mg/dL Normal 7-18 [facility] Comment on above: Performed By: #### L 500.2500, L100.0100 ####[facility] [address] [place], [address] Bedside Glucoseon 03-03-2024 FINGERSTICK GLU 185 mg/dL High 74-106 [facility] Comment on above: Result Comment: MARIA D SERRANO OF PATIENT CARE PER NURSING PROTOCOL Performed By: #### L 501.080 ####[facility] [address] [place], [address] FINGERSTICK GLU 184 mg/dL High 74-106 [facility] Comment on above: Result Comment: MARIA D GEMENT OF PATIENT CARE PER NURSING PROTOCOL Performed By: #### L 501.080 ####[facility] [address] [place], [address] FINGERSTICK GLU 146 mg/dL High 74-106 [facility] Comment on above: Result Comment: MARIA D GEMENT OF PATIENT CARE PER NURSING PROTOCOL Performed By: #### L 501.080 ####[facility] [address] [place], [address] FINGERSTICK GLU 71 mg/dL Low 74-106 [facility] Comment on above: Result Comment: MARIA D GEMENT OF PATIENT CARE PER NURSING PROTOCOL Performed By: #### L 501.080 ####[facility] [address] [place], [address] FINGERSTICK GLU 137 mg/dL High 74-106 [facility] Comment on above: Result Comment: MARIA D GEMENT OF PATIENT CARE PER NURSING PROTOCOL Performed By: #### L 501.080 ####[facility] [address] [place], [address] FINGERSTICK GLU 94 mg/dL Normal 74-106 [facility] Comment on above: Result Comment: MARIA D GEMENT OF PATIENT CARE PER NURSING PROTOCOL Performed By: #### L 501.080 ####[facility] [address] [place], [address] CBC W/Diff, Automatedon 08-2 Absolute Lymph 1.54 X10 3/uL Normal 0.83-4.51 [facility] Comment on above: Performed By: #### L 500.2500, L100.0100 ####[facility] [address] [place], [address] Absolute Neut 2.3 X10 3/uL Normal 2.0-7.7 [facility] Comment on above: Performed By: #### L 500.2500, L100.0100 ####[facility] [address] [place], [address] Basophils/100 WBC (Bld) 0.5 % Normal 0-1 [facility] Comment on above: Performed By: #### L 500.2500, L100.0100 ####[facility] [address] [place], [address] Eosinophils/100 WBC (Bld) 2.3 % Normal 0-5 [facility] Comment on above: Performed By: #### L 500.2500, L100.0100 ####[facility] [address] [place], [address] Erythrocyte distribution width (RBC) [Ratio] 13.1 % Normal 11.6-14.6 [facility] Comment on above: Performed By: #### L 500.2500, L100.0100 ####[facility] [address] [place], [address] Hematocrit (Bld) [Volume fraction] 29.6 % Low 37-47 [facility] Comment on above: Performed By: #### L 500.2500, L100.0100 ####[facility] [address] [place], [address] Hemoglobin (Bld) [Mass/Vol] 10.2 g/dL Low 12.0-15.0 [facility] Comment on above: Performed By: #### L 500.2500, L100.0100 ####[facility] [address] [place], [address] IG% 0.700 Normal 0.0-0.9 [facility] Comment on above: Result Comment: IG% - Immature Granulocytes (promyelocytes, myelocytes andmetamyelocytes) > 1% indicates that a LEFT SHIFT is Present. Performed By: #### L 500.2500, L100.0100 ####[facility] [address] [place], [address] Lymphocytes/100 WBC (Bld) 34.9 % Normal 19-41 [facility] Comment on above: Performed By: #### L 500.2500, L100.0100 ####[facility] [address] [place], [address] MCH (RBC) [Entitic mass] 29.4 pg Normal 27.0-32.0 [facility] Comment on above: Performed By: #### L 500.2500, L100.0100 ####[facility] [address] [place], [address] MCHC (RBC) [Mass/Vol] 34.5 g/dL Normal 32-36 [facility] Comment on above: Performed By: #### L 500.2500, L100.0100 ####[facility] [address] [place], [address] MCV (RBC) [Entitic vol] 85.3 fL Normal 81-99 [facility] Comment on above: Performed By: #### L 500.2500, L100.0100 ####[facility] [address] [place], [address] Monocytes/100 WBC (Bld) 10.4 % High 0-10 [facility] Comment on above: Performed By: #### L 500.2500, L100.0100 ####[facility] [address] [place], [address] Neutrophils/100 WBC (Bld) 51.2 % Normal 47-70 [facility] Comment on above: Performed By: #### L 500.2500, L100.0100 ####[facility] [address] [place], [address] Nucleated RBC (Bld) [#/Vol] 0 10*3/uL Normal 0-5 [facility] Comment on above: Performed By: #### L 500.2500, L100.0100 ####[facility] [address] [place], [address] Platelet mean volume (Bld) [Entitic vol] 11.3 fL Normal 6.2-12.0 [facility] Comment on above: Performed By: #### L 500.2500, L100.0100 ####[facility] [address] [place], [address] Platelets (Bld) [#/Vol] 162 10*3/uL Normal 150-450 [facility] Comment on above: Performed By: #### L 500.2500, L100.0100 ####[facility] [address] [place], [address] RBC (Bld) [#/Vol] 3.47 10*6/uL Low 4.2-5.4 [facility] Comment on above: Performed By: #### L 500.2500, L100.0100 ####[facility] [address] [place], [address] RDW SD 40.1 fl Normal 35.1-43.9 [facility] Comment on above: Performed By: #### L 500.2500, L100.0100 ####[facility] [address] [place], [address] WBC (Bld) [#/Vol] 4.4 10*3/uL Normal 4.4-11.0 [facility] Comment on above: Performed By: #### L 500.2500, L100.0100 ####[facility] [address] [place], [address] Basic Metabolic Profile (BMP )on 03-02-2024 BUN/CRE 10.4 RATIO Normal 10-20 [facility] Comment on above: Performed By: #### L 500.2500 ####[facility] [address] [place], [address] CA,Total 9.9 mg/dL Normal 8.5-10.1 [facility] Comment on above: Performed By: #### L 500.2500 ####[facility] [address] [place], [address] Chloride [Moles/Vol] 116 mmol/L High 98-107 [facility] Comment on above: Performed By: #### L 500.2500 ####[facility] [address] [place], [address] CO2 [Moles/Vol] 14.0 mmol/L Low 21.0-32.0 [facility] Comment on above: Performed By: #### L 500.2500 ####[facility] [address] [place], [address] Creatinine [Mass/Vol] 0.96 mg/dL Normal 0.55-1.02 [facility] Comment on above: Result Comment: The validity of the calculated GFR GFRAA in patients over70 years has not been determined. Clinical correlation isessential. Performed By: #### L 500.2500 ####[facility] [address] [place], [address] ECRCL 50.91 ml/min Normal [facility] Comment on above: Performed By: #### L 500.2500 ####[facility] [address] [place], [address] EST GFR - AA 76 mL/min Normal >60 [facility] Comment on above: Result Comment: Afri can Mexican GFR Calc Performed By: #### L 500.2500 ####[facility] [address] [place], [address] GAP 11 Normal 5-15 [facility] Comment on above: Performed By: #### L 500.2500 ####[facility] [address] [place], [address] GFR/1.73 sq M.predicted among non-blacks MDRD (S/P/Bld) [Vol rate/Area] 63 mL/min/{1.73_m2} Normal >60 [facility] Comment on above: Result Comment: Non- GFR Calc Performed By: #### L 500.2500 ####[facility] [address] [place], [address] Glucose [Mass/Vol] 47 mg/dL Low 74-106 [facility] Comment on above: Result Comment: Gluc ose result less than 50 mg/dL suggests HYPOGLYCEMIA. Performed By: #### L 500.2500 ####[facility] [address] [place], [address] Potassium [Moles/Vol] 3.3 mmol/L Low 3.5-5.1 [facility] Comment on above: Performed By: #### L 500.2500 ####[facility] [address] [place], [address] Sodium [Moles/Vol] 141 mmol/L Normal 136-145 [facility] Comment on above: Performed By: #### L 500.2500 ####[facility] [address] [place], [address] Urea nitrogen [Mass/Vol] 10 mg/dL Normal 7-18 [facility] Comment on above: Performed By: #### L 500.2500 ####[facility] [address] [place], [address] BUN/CRE 10.8 RATIO Normal 10-20 [facility] Comment on above: Performed By: #### L 500.2500 ####[facility] [address] [place], [address] CA,Total 9.2 mg/dL Normal 8.5-10.1 [facility] Comment on above: Performed By: #### L 500.2500 ####[facility] [address] [place], [address] Chloride [Moles/Vol] 113 mmol/L High 98-107 [facility] Comment on above: Performed By: #### L 500.2500 ####[facility] [address] [place], [address] CO2 [Moles/Vol] 10.0 mmol/L Low 21.0-32.0 [facility] Comment on above: Performed By: #### L 500.2500 ####[facility] [address] [place], [address] Creatinine [Mass/Vol] 0.83 mg/dL Normal 0.55-1.02 [facility] Comment on above: Result Comment: The validity of the calculated GFR GFRAA in patients over70 years has not been determined. Clinical correlation isessential. Performed By: #### L 500.2500 ####[facility] [address] [place], [address] ECRCL 58.88 ml/min Normal [facility] Comment on above: Performed By: #### L 500.2500 ####[facility] [address] [place], [address] EST GFR - AA 89 mL/min Normal >60 [facility] Comment on above: Result Comment: Afri can Mexican GFR Calc Performed By: #### L 500.2500 ####[facility] [address] [place], [address] GAP 17 High 5-15 [facility] Comment on above: Performed By: #### L 500.2500 ####[facility] [address] [place], [address] GFR/1.73 sq M.predicted among non-blacks MDRD (S/P/Bld) [Vol rate/Area] 74 mL/min/{1.73_m2} Normal >60 [facility] Comment on above: Result Comment: Non- GFR Calc Performed By: #### L 500.2500 ####[facility] [address] [place], [address] Glucose [Mass/Vol] 140 mg/dL High 74-106 [facility] Comment on above: Result Comment: Fast ing Glucose result greater than or equal to 126 mg/dLsuggests DIABETES MELLITUS per A.D.A. criteria. Performed By: #### L 500.2500 ####[facility] [address] [place], [address] Potassium [Moles/Vol] 3.3 mmol/L Low 3.5-5.1 [facility] Comment on above: Performed By: #### L 500.2500 ####[facility] [address] [place], [address] Sodium [Moles/Vol] 140 mmol/L Normal 136-145 [facility] Comment on above: Performed By: #### L 500.2500 ####[facility] [address] [place], [address] Urea nitrogen [Mass/Vol] 9 mg/dL Normal 7-18 [facility] Comment on above: Performed By: #### L 500.2500 ####[facility] [address] [place], [address] Bedside Glucoseon 03-02-2024 FINGERSTICK GLU 222 mg/dL High [address] [place] [address] Comment on above: Result Comment: MARIA D SERRANO OF PATIENT CARE PER NURSING PROTOCOL Performed By: #### L 501.080 ####[facility] [address] [place], [address] FINGERSTICK GLU 60 mg/dL Low 74-[address] [place] [address] Comment on above: Result Comment: MARIA D CASTROENT OF PATIENT CARE PER NURSING PROTOCOL Performed By: #### L 501.080 ####[facility] [address] [place], [address] FINGERSTICK GLU 32 mg/dL Invalid Interpretation Code 74-106 [facility] Comment on above: Result Comment: Dr Lois cooney FollowedMANAGEMENT OF PATIENT CARE PER NURSING PROTOCOL Performed By: #### L 501.080 ####[facility] [address] [place], [address] FINGERSTICK GLU 295 mg/dL High 74-106 [facility] Comment on above: Result Comment: MARIA D GEMENT OF PATIENT CARE PER NURSING PROTOCOL Performed By: #### L 501.080 ####[facility] [address] [place], [address] FINGERSTICK GLU 145 mg/dL High 74-106 [facility] Comment on above: Result Comment: MARIA D GEMENT OF PATIENT CARE PER NURSING PROTOCOL Performed By: #### L 501.080 ####[facility] [address] [place], [address] FINGERSTICK GLU 240 mg/dL High 74-106 [facility] Comment on above: Result Comment: MARIA D GEMENT OF PATIENT CARE PER NURSING PROTOCOL Performed By: #### L 501.080 ####[facility] [address] [place], [address] FINGERSTICK GLU 191 mg/dL High -106 [facility] Comment on above: Result Comment: MARIA D GEMENT OF PATIENT CARE PER NURSING PROTOCOL Performed By: #### L 501.080 ####[facility] [address] [place], [address] 12 Lead EKGon 03-01-2024 [address] [facility] Acetone Serumon 03-01-2024 ACETONE SERUM SMALL Abnormal NEG [facility] Comment on above: Performed By: #### L 501.6900 ####[facility] [address] [place], [address] Basic Metabolic Profile (BMP )on 03-01-2024 BUN/CRE 10.1 RATIO Normal 10-20 [facility] Comment on above: Performed By: #### L 500.2500 ####[facility] [address] [place], [address] CA,Total 9.2 mg/dL Normal 8.5-10.1 [facility] Comment on above: Performed By: #### L 500.2500 ####[facility] [address] [place], [address] Chloride [Moles/Vol] 114 mmol/L High 98-107 [facility] Comment on above: Performed By: #### L 500.2500 ####[facility] [address] [place], [address] CO2 [Moles/Vol] 9.0 mmol/L Invalid Interpretation Code 21.0-32.0 [facility] Comment on above: Result Comment: Crit ical Result(s) Called at: 21:37:02 03/01/2024 by:Sue Lal to Evelio. Results read back by same. Performed By: #### L 500.2500 ####[facility] [address] [place], [address] Creatinine [Mass/Vol] 0.89 mg/dL Normal 0.55-1.02 [facility] Comment on above: Result Comment: The validity of the calculated GFR GFRAA in patients over70 years has not been determined. Clinical correlation isessential. Performed By: #### L 500.2500 ####[facility] [address] [place], [address] ECRCL 54.91 ml/min Normal [facility] Comment on above: Performed By: #### L 500.2500 ####[facility] [address] [place], [address] EST GFR - AA 83 mL/min Normal >60 [facility] Comment on above: Result Comment: Afri can Mexican GFR Calc Performed By: #### L 500.2500 ####[facility] [address] [place], [address] GAP 15 Normal 5-15 [facility] Comment on above: Performed By: #### L 500.2500 ####[facility] [address] [place], [address] GFR/1.73 sq M.predicted among non-blacks MDRD (S/P/Bld) [Vol rate/Area] 68 mL/min/{1.73_m2} Normal >60 [facility] Comment on above: Result Comment: Non- GFR Calc Performed By: #### L 500.2500 ####[facility] [address] [place], [address] Glucose [Mass/Vol] 175 mg/dL High 74-106 [facility] Comment on above: Result Comment: Fast ing Glucose result greater than or equal to 126 mg/dLsuggests DIABETES MELLITUS per A.D.A. criteria. Performed By: #### L 500.2500 ####[facility] [address] [place], [address] Potassium [Moles/Vol] 3.3 mmol/L Low 3.5-5.1 [facility] Comment on above: Performed By: #### L 500.2500 ####[facility] [address] [place], [address] Sodium [Moles/Vol] 138 mmol/L Normal 136-145 [facility] Comment on above: Performed By: #### L 500.2500 ####[facility] [address] [place], [address] Urea nitrogen [Mass/Vol] 9 mg/dL Normal 7-18 [facility] Comment on above: Performed By: #### L 500.2500 ####[facility] [address] [place], [address] BUN/CRE 10.0 RATIO Normal 10-20 [facility] Comment on above: Performed By: #### L 500.2500 ####[facility] [address] [place], [address] CA,Total 9.0 mg/dL Normal 8.5-10.1 [facility] Comment on above: Performed By: #### L 500.2500 ####[facility] [address] [place], [address] Chloride [Moles/Vol] 110 mmol/L High 98-107 [facility] Comment on above: Performed By: #### L 500.2500 ####[facility] [address] [place], [address] CO2 [Moles/Vol] 10.0 mmol/L Low 21.0-32.0 [facility] Comment on above: Performed By: #### L 500.2500 ####[facility] [address] [place], [address] Creatinine [Mass/Vol] 0.90 mg/dL Normal 0.55-1.02 [facility] Comment on above: Result Comment: The validity of the calculated GFR GFRAA in patients over70 years has not been determined. Clinical correlation isessential. Performed By: #### L 500.2500 ####[facility] [address] [place], [address] ECRCL 54.30 ml/min Normal [facility] Comment on above: Performed By: #### L 500.2500 ####[facility] [address] [place], [address] EST GFR - AA 81 mL/min Normal >60 [facility] Comment on above: Result Comment: Afri can Mexican GFR Calc Performed By: #### L 500.2500 ####[facility] [address] [place], [address] GAP 17 High 5-15 [facility] Comment on above: Performed By: #### L 500.2500 ####[facility] [address] [place], [address] GFR/1.73 sq M.predicted among non-blacks MDRD (S/P/Bld) [Vol rate/Area] 67 mL/min/{1.73_m2} Normal >60 [facility] Comment on above: Result Comment: Non- GFR Calc Performed By: #### L 500.2500 ####[facility] [address] [place], [address] Glucose [Mass/Vol] 231 mg/dL High 74-106 [facility] Comment on above: Result Comment: Gluc ose result greater than or equal to 200 mg/dLsuggests DIABETES MELLITUS per A.D.A. criteria. Performed By: #### L 500.2500 ####[facility] [address] [place], [address] Potassium [Moles/Vol] 3.6 mmol/L Normal 3.5-5.1 [facility] Comment on above: Performed By: #### L 500.2500 ####[facility] [address] [place], [address] Sodium [Moles/Vol] 137 mmol/L Normal 136-145 [facility] Comment on above: Performed By: #### L 500.2500 ####[facility] [address] [place], [address] Urea nitrogen [Mass/Vol] 9 mg/dL Normal 7-18 [facility] Comment on above: Performed By: #### L 500.2500 ####[facility] [address] [place], [address] BUN/CRE 10.0 RATIO Normal 10-20 [facility] Comment on above: Performed By: #### L 500.2500 ####[facility] [address] [place], [address] CA,Total 8.6 mg/dL Normal 8.5-10.1 [facility] Comment on above: Performed By: #### L 500.2500 ####[facility] [address] [place], [address] Chloride [Moles/Vol] 112 mmol/L High 98-107 [facility] Comment on above: Performed By: #### L 500.2500 ####[facility] [address] [place], [address] CO2 [Moles/Vol] 11.0 mmol/L Low 21.0-32.0 [facility] Comment on above: Performed By: #### L 500.2500 ####[facility] [address] [place], [address] Creatinine [Mass/Vol] 0.90 mg/dL Normal 0.55-1.02 [facility] Comment on above: Result Comment: The validity of the calculated GFR GFRAA in patients over70 years has not been determined. Clinical correlation isessential. Performed By: #### L 500.2500 ####[facility] [address] [place], [address] ECRCL 54.30 ml/min Normal [facility] Comment on above: Performed By: #### L 500.2500 ####[facility] [address] [place], [address] EST GFR - AA 82 mL/min Normal >60 [facility] Comment on above: Result Comment: Afri can Mexican GFR Calc Performed By: #### L 500.2500 ####[facility] [address] [place], [address] GAP 14 Normal 5-15 [facility] Comment on above: Performed By: #### L 500.2500 ####[facility] [address] [place], [address] GFR/1.73 sq M.predicted among non-blacks MDRD (S/P/Bld) [Vol rate/Area] 67 mL/min/{1.73_m2} Normal >60 [facility] Comment on above: Result Comment: Non- GFR Calc Performed By: #### L 500.2500 ####[facility] [address] [place], [address] Glucose [Mass/Vol] 191 mg/dL High 74-106 [facility] Comment on above: Result Comment: Fast ing Glucose result greater than or equal to 126 mg/dLsuggests DIABETES MELLITUS per A.D.A. criteria. Performed By: #### L 500.2500 ####[facility] [address] [place], [address] Potassium [Moles/Vol] 3.5 mmol/L Normal 3.5-5.1 [facility] Comment on above: Performed By: #### L 500.2500 ####[facility] [address] [place], [address] Sodium [Moles/Vol] 137 mmol/L Normal 136-145 [facility] Comment on above: Performed By: #### L 500.2500 ####[facility] [address] [place], [address] Urea nitrogen [Mass/Vol] 9 mg/dL Normal 7-18 [facility] Comment on above: Performed By: #### L 500.2500 ####[facility] [address] [place], [address] BUN/CRE 11.3 RATIO Normal 10-20 [facility] Comment on above: Performed By: #### L 500.2500 ####[facility] [address] [place], [address] CA,Total 8.2 mg/dL Low 8.5-10.1 [facility] Comment on above: Performed By: #### L 500.2500 ####[facility] [address] [place], [address] Chloride [Moles/Vol] 110 mmol/L High 98-107 [facility] Comment on above: Performed By: #### L 500.2500 ####[facility] [address] [place], [address] CO2 [Moles/Vol] 10.0 mmol/L Low 21.0-32.0 [facility] Comment on above: Performed By: #### L 500.2500 ####[facility] [address] [place], [address] Creatinine [Mass/Vol] 0.98 mg/dL Normal 0.55-1.02 [facility] Comment on above: Result Comment: The validity of the calculated GFR GFRAA in patients over70 years has not been determined. Clinical correlation isessential. Performed By: #### L 500.2500 ####[facility] [address] [place], [address] ECRCL 49.87 ml/min Normal [facility] Comment on above: Performed By: #### L 500.2500 ####[facility] [address] [place], [address] EST GFR - AA 74 mL/min Normal >60 [facility] Comment on above: Result Comment: Afri can Mexican GFR Calc Performed By: #### L 500.2500 ####[facility] [address] [place], [address] GAP 18 High 5-15 [facility] Comment on above: Performed By: #### L 500.2500 ####[facility] [address] [place], [address] GFR/1.73 sq M.predicted among non-blacks MDRD (S/P/Bld) [Vol rate/Area] 62 mL/min/{1.73_m2} Normal >60 [facility] Comment on above: Result Comment: Non- GFR Calc Performed By: #### L 500.2500 ####[facility] [address] [place], [address] Glucose [Mass/Vol] 328 mg/dL High 74-106 [facility] Comment on above: Result Comment: Gluc ose result greater than or equal to 200 mg/dLsuggests DIABETES MELLITUS per A.D.A. criteria. Performed By: #### L 500.2500 ####[facility] [address] [place], [address] Potassium [Moles/Vol] 3.7 mmol/L Normal 3.5-5.1 [facility] Comment on above: Performed By: #### L 500.2500 ####[facility] [address] [place], [address] Sodium [Moles/Vol] 138 mmol/L Normal 136-145 [facility] Comment on above: Performed By: #### L 500.2500 ####[facility] [address] [place], [address] Urea nitrogen [Mass/Vol] 11 mg/dL Normal 7-18 [facility] Comment on above: Performed By: #### L 500.2500 ####[facility] [address] [place], [address] Bedside Glucoseon 03-01-2024 FINGERSTICK GLU 109 mg/dL High -106 [facility] Comment on above: Result Comment: MARIA D GEMENT OF PATIENT CARE PER NURSING PROTOCOL Performed By: #### L 501.080 ####[facility] [address] [place], [address] FINGERSTICK GLU 247 mg/dL High -106 [facility] Comment on above: Result Comment: MARIA D GEMENT OF PATIENT CARE PER NURSING PROTOCOL Performed By: #### L 501.080 ####[facility] [address] [place], [address] FINGERSTICK GLU 256 mg/dL High 74-106 [facility] Comment on above: Result Comment: MARIA D GEMENT OF PATIENT CARE PER NURSING PROTOCOL Performed By: #### L 501.080 ####[facility] [address] [place], [address] FINGERSTICK GLU 148 mg/dL High [facility]106 [facility] Comment on above: Result Comment: MARIA D GEMENT OF PATIENT CARE PER NURSING PROTOCOL Performed By: #### L 501.080 ####[facility] [address] [place], [address] FINGERSTICK GLU 210 mg/dL High [facility]106 [facility] Comment on above: Result Comment: MARIA D GEMENT OF PATIENT CARE PER NURSING PROTOCOL Performed By: #### L 501.080 ####[facility] [address] [place], [address] FINGERSTICK GLU 241 mg/dL High [address] [place] [address] Comment on above: Result Comment: MARIA D GEMENT OF PATIENT CARE PER NURSING PROTOCOL Performed By: #### L 501.080 ####[facility] [address] [place], [address] FINGERSTICK GLU 243 mg/dL High [facility]106 [facility] Comment on above: Result Comment: MARIA D GEMENT OF PATIENT CARE PER NURSING PROTOCOL Performed By: #### L 501.080 ####[facility] [address] [place], [address] FINGERSTICK GLU 343 mg/dL High [address] [place] [address] Comment on above: Result Comment: MARIA D GEMENT OF PATIENT CARE PER NURSING PROTOCOL Performed By: #### L 501.080 ####[facility] [address] [place], [address] CBC W/Diff, Automatedon - PLT EST ADEQUATE Normal ADEQ [facility] Comment on above: Performed By: #### L 100.0100, L500.4050, L503.6005 ####[facility] [address] [place], [address] Comprehensive Metabolic Prof ilon 03-01-2024 Albumin [Mass/Vol] 4.1 g/dL Normal 3.2-5.0 [facility] Comment on above: Performed By: #### L 100.0100, L500.4050, L503.6005 ####[facility] [address] [place], [address] Albumin/Globulin [Mass ratio] 1.0 {ratio} Normal 0.9-2.4 [facility] Comment on above: Performed By: #### L 100.0100, L500.4050, L503.6005 ####[facility] [address] [place], [address] ALK P 115 U/L Normal 45-117 [facility] Comment on above: Performed By: #### L 100.0100, L500.4050, L503.6005 ####[facility] [address] [place], [address] ALT [Catalytic activity/Vol] 16 U/L Normal 13-56 [facility] Comment on above: Performed By: #### L 100.0100, L500.4050, L503.6005 ####[facility] [address] [place], [address] AST [Catalytic activity/Vol] 11 U/L Low 15-37 [facility] Comment on above: Performed By: #### L 100.0100, L500.4050, L503.6005 ####[facility] [address] [place], [address] Bilirubin [Mass/Vol] 0.50 mg/dL Normal 0.20-1.00 [facility] Comment on above: Result Comment: For patients on eltrombopag therapy, use of Dimension [place] TBIL is not recommended. Performed By: #### L 100.0100, L500.4050, L503.6005 ####[facility] [address] [place], [address] BUN/CRE 9.6 RATIO Low 10-20 [facility] Comment on above: Performed By: #### L 100.0100, L500.4050, L503.6005 ####[facility] [address] [place], [address] CA,Total 9.3 mg/dL Normal 8.5-10.1 [facility] Comment on above: Performed By: #### L 100.0100, L500.4050, L503.6005 ####[facility] [address] [place], [address] Chloride [Moles/Vol] 104 mmol/L Normal 98-107 [facility] Comment on above: Performed By: #### L 100.0100, L500.4050, L503.6005 ####[facility] [address] [place], [address] CO2 [Moles/Vol] 11.0 mmol/L Low 21.0-32.0 [facility] Comment on above: Performed By: #### L 100.0100, L500.4050, L503.6005 ####[facility] [address] [place], [address] Creatinine [Mass/Vol] 1.14 mg/dL High 0.55-1.02 [facility] Comment on above: Result Comment: The validity of the calculated GFR GFRAA in patients over70 years has not been determined. Clinical correlation isessential. Performed By: #### L 100.0100, L500.4050, L503.6005 ####[facility] [address] [place], [address] ECRCL 42.87 ml/min Normal [facility] Comment on above: Performed By: #### L 100.0100, L500.4050, L503.6005 ####[facility] [address] [place], [address] EST GFR - AA 62 mL/min Normal >60 [facility] Comment on above: Result Comment: Afri can Mexican GFR Calc Performed By: #### L 100.0100, L500.4050, L503.6005 ####[facility] [address] [place], [address] GAP 20 High 5-15 [facility] Comment on above: Performed By: #### L 100.0100, L500.4050, L503.6005 ####[facility] [address] [place], [address] GFR/1.73 sq M.predicted among non-blacks MDRD (S/P/Bld) [Vol rate/Area] 51 mL/min/{1.73_m2} Low >60 [facility] Comment on above: Result Comment: Non- GFR Calc Performed By: #### L 100.0100, L500.4050, L503.6005 ####[facility] [address] [place], [address] Globulin (S) [Mass/Vol] 4.1 g/dL Normal 2.2-4.2 [facility] Comment on above: Performed By: #### L 100.0100, L500.4050, L503.6005 ####[facility] [address] [place], [address] Glucose [Mass/Vol] 419 mg/dL High 74-106 [facility] Comment on above: Result Comment: Gluc ose result greater than or equal to 200 mg/dLsuggests DIABETES MELLITUS per A.D.A. criteria. Performed By: #### L 100.0100, L500.4050, L503.6005 ####[facility] [address] [place], [address] Potassium [Moles/Vol] 4.0 mmol/L Normal 3.5-5.1 [facility] Comment on above: Performed By: #### L 100.0100, L500.4050, L503.6005 ####[facility] [address] [place], [address] Sodium [Moles/Vol] 135 mmol/L Low 136-145 [facility] Comment on above: Performed By: #### L 100.0100, L500.4050, L503.6005 ####[facility] [address] [place], [address] T PROT 8.2 g/dL Normal 6.4-8.2 [facility] Comment on above: Performed By: #### L 100.0100, L500.4050, L503.6005 ####[facility] [address] [place], [address] Urea nitrogen [Mass/Vol] 11 mg/dL Normal 7-18 [facility] Comment on above: Performed By: #### L 100.0100, L500.4050, L503.6005 ####[facility] [address] [place], [address] Emergency Department Summary on 03-01-2024 Emergency Department Summary Normal [facility] H AND P Exam - Hospital[place] 03-01-2024 H&P Exam - Hospitalist Normal [facility] L501.4020on 03-01-2024 TROPONIN-I HS 6 pg/mL Normal 3.0-54.0 [facility] Comment on above: Order Comment: 'TROP ' Serial specimen #1, #2 or #3: 1 Result Comment: Plea se Note: New Test Units and Gender Specific Reference Ranges. For more information see Policy Stat Procedure [place] High Sensitivity Troponin (TNIH) and attachments. Performed By: #### L 501.4020 ####[facility] [address] [place], [address] Lactic Acidon 03-01-2024 Lactate [Moles/Vol] 0.7 mmol/L Normal 0.4-1.9 [facility] Comment on above: Order Comment: Y Performed By: #### L 100.0100, L500.4050, L503.6005 ####[facility] [address] [place], [address] Urinalysis, Completeon 03-01 BACTERIA 0 SEEN Normal None Seen [facility] Comment on above: Order Comment: CRITI JUDD VALUE VERIFIED. CALLED TO [address] [facility] Halima Rodriguez.RESULTS READ BACK BY SAME.EXPANDER MACHINE OPERATOR TO SPECIFY Performed By: #### L 400.0001 ####[facility] [address] [place], [address] EPI,SQUAMOUS 0 SEEN Normal 5-10 [facility] Comment on above: Order Comment: CRITI JUDD VALUE VERIFIED. CALLED TO [address] [facility] Halima Rodriguez.RESULTS READ BACK BY SAME.EXPANDER MACHINE OPERATOR TO SPECIFY Performed By: #### L 400.0001 ####[facility] [address] [place], [address] Mucus Ql (Urine sed) 0 SEEN Normal [facility] Comment on above: Order Comment: CRITI JUDD VALUE VERIFIED. CALLED TO [address] [facility] Halima Rodriguez.RESULTS READ BACK BY SAME.EXPANDER MACHINE OPERATOR TO SPECIFY Performed By: #### L 400.0001 ####[facility] [address] [place], [address] RBC 0 SEEN Normal 0-5 [facility] Comment on above: Order Comment: CRITI JUDD VALUE VERIFIED. CALLED TO [address] [facility] Halima Rodriguez.RESULTS READ BACK BY SAME.EXPANDER MACHINE OPERATOR TO SPECIFY Performed By: #### L 400.0001 ####[facility] [address] [place], [address] WBC 0 SEEN Normal 0-5 [facility] Comment on above: Order Comment: CRITI JUDD VALUE VERIFIED. CALLED TO [place] [phone] Halima Rodriguez.RESULTS READ BACK BY SAME.EXPANDER MACHINE OPERATOR TO SPECIFY Performed By: #### L 400.0001 ####[facility] [address] [place], [address] Absolute lymphocyte countOrd ered By: Reece Smith on 07-29-2023 Lymphocytes Auto (Unsp spec) [#/Vol] 1.19 10*3/uL 0.83-4.51 [facility] Automated lymphocyte count a s percentage of total leukocytesOrdered By: Reece Smith on 07-29-2023 Lymphocytes/100 WBC Auto (Unsp spec) 19.3 % 19-41 [facility] Basophil percentageOrdered B y: Reece Smith on 07-29-2023 Basophil percentage 0-5 SEEN /hpf 0-5 [facility] Basophils/100 WBC (Bld) 0.5 % 0-1 [facility] Chloride [Moles/Vol] 108 mmol/L 98-107 [facility] Eosinophils/100 WBC (Bld) 1.1 % 0-5 [facility] Glucose [Mass/Vol] 127 mg/dL 74-106 [facility] Comment on above: Fasting Glucose resu lt greater than or equal to 126 mg/dL suggests DIABETES MELLITUS per A.D.A. criteria. Hemoglobin (Bld) [Mass/Vol] 11.4 g/dL 12.0-15.0 [facility] Monocytes/100 WBC (Bld) 5.7 % 0-10 [facility] Neutrophils (Bld) [#/Vol] 4.5 10*3/uL 2.0-7.7 [facility] Neutrophils/100 WBC (Bld) 72.9 % 47-70 [facility] Potassium [Moles/Vol] 4.0 mmol/L 3.5-5.1 [facility] Sodium [Moles/Vol] 141 mmol/L 136-145 [facility] WBC (Bld) [#/Vol] 6.2 10*3/uL 4.4-11.0 [facility] Bilirubin Test strip Ql (U)O rdered By: Reece Smith on 07-29-2023 Bilirubin Ql (U) Negative Negative [facility] Determination of erythrocyte mean corpuscular volume (MCV)Ordered By: Reece Smith on 07-29-2023 MCV (RBC) [Entitic vol] 94.8 fL 81-99 [facility] Erythrocyte distribution wid th ratioOrdered By: Reece Smith on 07-29-2023 Erythrocyte distribution width (RBC) [Ratio] 14.5 % 11.6-14.6 [facility] Erythrocyte distribution wid th standard deviationOrdered By: Reece Smith on 07-29-2023 Erythrocyte distribution width (RBC) [Entitic vol] 50.0 fL 35.1-43.9 [facility] Hematocrit Auto (Bld) [Volum e fraction]Ordered By: Reece Smith on 07-29-2023 Hematocrit (Bld) [Volume fraction] 36.1 % 37-47 [facility] Immature granulocytes/100 WB C Auto (Bld)Ordered By: Reece Smith on 07-29-2023 Immature granulocytes/100 WBC (Bld) 0.500 % 0.0-0.9 [facility] Comment on above: IG% - Immature Granu locytes (promyelocytes, myelocytes and metamyelocytes) > 1% indicates that a LEFT SHIFT is Present. Ketones Test strip Ql (U)Ord ered By: Reece Smith on 07-29-2023 Ketones Ql (U) 50 mg/dl Negative [facility] Laboratory - Chemistry and C hemistry - challengeOrdered By: Reece Smith on 07-29-2023 CO2 [Moles/Vol] 27.0 mmol/L 21.0-32.0 [facility] Urea nitrogen/Creatinine [Mass ratio] 28.0 mg/mg 10-20 [facility] Laboratory - Hematology and Cell countsOrdered By: Reece Smith on 07-29-2023 MCH (RBC) [Entitic mass] 29.9 pg 27.0-32.0 [facility] MCHC (RBC) [Mass/Vol] 31.6 g/dL 32-36 [facility] Nucleated RBC/100 WBC (Bld) [Ratio] 0 % 0-5 [facility] Platelets (Bld) [#/Vol] 295 10*3/uL 150-450 [facility] Mucus LM Ql (Urine sed)Order ed By: Reece Smith on 07-29-2023 Mucus Ql (Urine sed) 0 SEEN /hpf [facility] Nitrite Test strip Ql (U)Ord ered By: Reece Smith on 07-29-2023 Nitrite Ql (U) Negative Negative [facility] No Panel InformationOrdered By: Reece Smith on 07-29-2023 Urine RBC 0 SEEN /hpf 0-5 [facility] Estimated Creatinine Clearance Calc 76.36 ml/min [facility] Estimated GFR (MDRD) Amer 121 mL/min >60 [facility] Comment on above: GFR Calc Estimated GFR (MDRD) Non-Af Amer 100 mL/min >60 [facility] Comment on above: Non- GFR Calc Troponin I High Sensitivity 10 pg/mL 3.0-54.0 [facility] Comment on above: Please Note: New Jessica t Units and Gender Specific Reference Ranges. For more information see Policy Stat Procedure [place] High Sensitivity Troponin (TNIH) and attachments. Platelet mean volume Amado-Ec ker (Bld) [Entitic vol]Ordered By: Reece Smith on 07-29-2023 Platelet mean volume (Bld) [Entitic vol] 12.1 fL 6.2-12.0 [facility] Protein Test strip Ql (U)Ord ered By: Reece Smith on 07-29-2023 Protein Ql (U) Negative Negative [facility] RBC Auto (Bld) [#/Vol]Ordere d By: Reece Smith on 07-29-2023 RBC (Bld) [#/Vol] 3.81 10*6/uL 4.2-5.4 [facility] Serum or plasma calcium jn urement (mass/volume)Ordered By: Reece Smith on 07-29-2023 Calcium [Mass/Vol] 9.8 mg/dL 8.5-10.1 [facility] Serum or plasma creatinine m easurement (mass/volume)Ordered By: Reece Smith on 07-29-2023 Creatinine [Mass/Vol] 0.64 mg/dL 0.55-1.02 [facility] Comment on above: The validity of the calculated GFR & GFRAA in patients over 70 years has not been determined. Clinical correlation is essential. Serum or plasma urea nitroge n measurement (mass/volume)Ordered By: Reece Smith on 07-29-2023 Urea nitrogen [Mass/Vol] 18 mg/dL 7-18 [facility] Squamous epithelial cells de tection in urine sediment by light microscopyOrdered By: Reece Smith on 07-29-2023 Epithelial cells.squamous LM Ql (Urine sed) 0 SEEN /hpf 5-10 [facility] Thin prep Papanicolaou smear with manual screeningOrdered By: Reece Smith on 07-29-2023 Thin prep Papanicolaou smear with manual screening 212 mg/dL 74-106 [facility] Comment on above: MANAGEMENT OF PATIEN T CARE PER NURSING PROTOCOL Thin prep Papanicolaou smear with manual screening 6 5-15 [facility] Urine blood detectionOrdered By: Reece Smith on 07-29-2023 RBC Ql (U) Negative Negative [facility] Urine clarityOrdered By: Neil Smith on 07-29-2023 Clarity (U) Clear Clear [facility] Urine color determinationOrd ered By: Reece Smith on 07-29-2023 Color (U) Yellow Yellow [facility] Urine glucose detectionOrder ed By: Reece Smith on 07-29-2023 Glucose Ql (U) Normal mg/dl Normal [facility] Urine leukocyte esterase det ection by dipstickOrdered By: Reece Smith on 07-29-2023 Leukocyte esterase Test strip Ql (U) 25 /ul Negative [facility] Urine pHOrdered By: Reece Smith on 07-29-2023 pH (U) 6.0 [pH] 5.0 - 8.0 [facility] Urine sediment bacteria coun t by microscopy (number/high power field)Ordered By: Reece Smith on 07-29-2023 Bacteria LM.HPF (Urine sed) [#/Area] 0 /[HPF] None Seen [facility] Urine specific gravity measu rementOrdered By: Reece Smith on 07-29-2023 Specific gravity (U) [Rel density] 1.020 1.002-1.030 [facility] Urine urobilinogen measureme ntOrdered By: Reece Smith on 07-29-2023 Urobilinogen Ql (U) Normal mg/dl Normal [facility] Absolute lymphocyte countOrd ered By: Sanjanafifi Quigley on 07-06-2023 Lymphocytes Auto (Unsp spec) [#/Vol] 2.04 10*3/uL 0.83-4.51 [facility] Basophil percentageOrdered B y: Sanjana Soraida on 07-06-2023 Basophils/100 WBC (Bld) 1.0 % 0-1 [facility] Chloride [Moles/Vol] 110 mmol/L 98-107 [facility] Eosinophils/100 WBC (Bld) 1.6 % 0-5 [facility] Glucose [Mass/Vol] 132 mg/dL 74-106 [facility] Comment on above: Fasting Glucose resu lt greater than or equal to 126 mg/dL suggests DIABETES MELLITUS per A.D.A. criteria. Neutrophils (Bld) [#/Vol] 1.3 10*3/uL 2.0-7.7 [facility] Neutrophils/100 WBC (Bld) 34.0 % 47-70 [facility] Potassium [Moles/Vol] 2.7 mmol/L 3.5-5.1 [facility] Comment on above: Critical Result(s) C alled at: 06:51:47 07/06/2023 by: [facility] Results read back by same. Sodium [Moles/Vol] 141 mmol/L 136-145 [facility] WBC (Bld) [#/Vol] 3.9 10*3/uL 4.4-11.0 [facility] Blood erythrocytes count (nu mber/volume)Ordered By: Sanjana Quigley on 07-06-2023 RBC (Bld) [#/Vol] 3.33 10*6/uL 4.2-5.4 [facility] Blood hemoglobin measurement (mass/volume)Ordered By: Sanjana Quigley on 07-06-2023 Hemoglobin (Bld) [Mass/Vol] 9.9 g/dL 12.0-15.0 [facility] Blood lymphocytes/100 leukoc ytesOrdered By: Sanjana Quigley on 07-06-2023 Lymphocytes/100 WBC (Bld) 53.0 % 19-41 [facility] Blood monocytes/100 leukocyt esOrdered By: aSnjana Quigley on 07-06-2023 Monocytes/100 WBC (Bld) 9.9 % 0-10 [facility] Blood platelet mean volumeOr dered By: Sanjana Quigley on 07-06-2023 Platelet mean volume (Bld) [Entitic vol] 11.9 fL 6.2-12.0 [facility] Determination of erythrocyte mean corpuscular volume (MCV)Ordered By: Sanjaan Quigley on 07-06-2023 MCV (RBC) [Entitic vol] 86.2 fL 81-99 [facility] Glucose Glucometer (BldC) [M ass/Vol]Ordered By: Sanjana Quigley on 07-06-2023 Glucose [Mass/Vol] 223 mg/dL 74-106 [facility] Comment on above: MANAGEMENT OF PATIEN T CARE PER NURSING PROTOCOL Hematocrit Auto (Bld) [Volum e fraction]Ordered By: Sanjana Quigley on 07-06-2023 Hematocrit (Bld) [Volume fraction] 28.7 % 37-47 [facility] Laboratory - Chemistry and C hemistry - challengeOrdered By: Sanjana Quigley on 07-06-2023 CO2 [Moles/Vol] 27.0 mmol/L 21.0-32.0 [facility] Urea nitrogen/Creatinine [Mass ratio] 24.0 mg/mg 10-20 [facility] - Hematology and Cell countsOrdered By: Sanjana Quigley on 07-06-2023 Erythrocyte distribution width (RBC) [Entitic vol] 41.4 fL 35.1-43.9 [facility] Erythrocyte distribution width (RBC) [Ratio] 13.2 % 11.6-14.6 [facility] Immature granulocytes/100 WBC (Bld) 0.500 % 0.0-0.9 [facility] Comment on above: IG% - Immature Granu locytes (promyelocytes, myelocytes and metamyelocytes) > 1% indicates that a LEFT SHIFT is Present. MCH (RBC) [Entitic mass] 29.7 pg 27.0-32.0 [facility] Nucleated RBC/100 WBC (Bld) [Ratio] 0 % 0-5 [facility] MCHC Auto (RBC) [Mass/Vol]Or dered By: Sanjana Quigley on 12-31-2023 MCHC (RBC) [Mass/Vol] 34.5 g/dL 32-36 [facility] No Panel InformationOrdered By: Sanjana Quigley on 07-06-2023 Estimated Creatinine Clearance Calc 97.74 ml/min [facility] Estimated GFR (MDRD) Amer 161 mL/min >60 [facility] Comment on above: GFR Calc Estimated GFR (MDRD) Non-Af Amer 133 mL/min >60 [facility] Comment on above: Non- GFR Calc Platelets bldOrdered By: Freya Quigley on 07-06-2023 Platelets (Bld) [#/Vol] 185 10*3/uL 150-450 [facility] Serum or plasma calcium jn urement (mass/volume)Ordered By: Sanjana Quigley on 07-06-2023 Calcium [Mass/Vol] 8.5 mg/dL 8.5-10.1 [facility] Serum or plasma creatinine m easurement (mass/volume)Ordered By: Sanjana Quigley on 07-06-2023 Creatinine [Mass/Vol] 0.50 mg/dL 0.55-1.02 [facility] Comment on above: The validity of the calculated GFR & GFRAA in patients over 70 years has not been determined. Clinical correlation is essential. Serum or plasma urea nitroge n measurement (mass/volume)Ordered By: Sanjana Quigley on 07-06-2023 Urea nitrogen [Mass/Vol] 12 mg/dL 7-18 [facility] Thin prep Papanicolaou smear with manual screeningOrdered By: Sanjana Quigley on 07-06-2023 Thin prep Papanicolaou smear with manual screening 4 5-15 [facility] Basophil percentageOrdered B y: Sanjana Quigley on 07-04-2023 Lactate [Moles/Vol] 0.7 mmol/L 0.4-2.0 [facility] Absolute lymphocyte countOrd ered By: Steven Voss on 07-02-2023 Lymphocytes Auto (Unsp spec) [#/Vol] 1.43 10*3/uL 0.83-4.51 [facility] Basophil percentageOrdered B y: Steven Voss on 07-02-2023 Basophil percentage 25-50 SEEN /hpf 0-5 [facility] Basophils/100 WBC (Bld) 0.6 % 0-1 [facility] Chloride [Moles/Vol] 103 mmol/L 98-107 [facility] Eosinophils/100 WBC (Bld) 0.1 % 0-5 [facility] Glucose [Mass/Vol] 352 mg/dL 74-106 [facility] Comment on above: Glucose result great er than or equal to 200 mg/dLsuggests DIABETES MELLITUS per A.D.A. criteria. Neutrophils (Bld) [#/Vol] 5.3 10*3/uL 2.0-7.7 [facility] Neutrophils/100 WBC (Bld) 74.0 % 47-70 [facility] Potassium [Moles/Vol] 3.8 mmol/L 3.5-5.1 [facility] Sodium [Moles/Vol] 135 mmol/L 136-145 [facility] WBC (Bld) [#/Vol] 7.1 10*3/uL 4.4-11.0 [facility] Bilirubin Test strip Ql (U)O rdered By: Steven Voss on 07-02-2023 Bilirubin Ql (U) Negative Negative [facility] Blood erythrocytes count (nu mber/volume)Ordered By: Steven Voss on 07-02-2023 RBC (Bld) [#/Vol] 4.71 10*6/uL 4.2-5.4 [facility] Blood hemoglobin measurement (mass/volume)Ordered By: Steven Voss on 07-02-2023 Hemoglobin (Bld) [Mass/Vol] 14.0 g/dL 12.0-15.0 [facility] Blood lymphocytes/100 leukoc ytesOrdered By: Steven Voss on 07-02-2023 Lymphocytes/100 WBC (Bld) 20.1 % 19-41 [facility] Blood monocytes/100 leukocyt esOrdered By: Steven Torreso on 07-02-2023 Monocytes/100 WBC (Bld) 4.6 % 0-10 [facility] Blood platelet mean volumeOr dered By: Steven Torreso on 07-02-2023 Platelet mean volume (Bld) [Entitic vol] 11.8 fL 6.2-12.0 [facility] Culture, urineOrdered By: Sherita Voss on 07-02-2023 Bacteria identified Cx Nom (U) Culture exhibits no growth. [facility] Determination of erythrocyte mean corpuscular volume (MCV)Ordered By: Steven Voss on 07-02-2023 MCV (RBC) [Entitic vol] 92.1 fL 81-99 [facility] Erythrocyte sedimentation ra teOrdered By: Steven Voss on 07-02-2023 ESR (Bld) [Velocity] 24 mm/h 0-30 [facility] Glucose Glucometer (BldC) [M ass/Vol]Ordered By: Steven Voss on 07-02-2023 Glucose [Mass/Vol] 308 mg/dL 74-106 [facility] Comment on above: MANAGEMENT OF PATIEN T CARE PER NURSING PROTOCOL Hematocrit Auto (Bld) [Volum e fraction]Ordered By: Steven Voss on 07-02-2023 Hematocrit (Bld) [Volume fraction] 43.4 % 37-47 [facility] Ketones Test strip Ql (U)Ord ered By: Steven Voss on 07-02-2023 Ketones Ql (U) 150 mg/dl Negative [facility] Comment on above: CRITICAL VALUE *HCRI TICAL VALUE VERIFIED. CALLED TO [id number] Nina Guajardo.RESULTS READ BACK BY SAME . Laboratory - Chemistry and C hemistry - challengeOrdered By: Steven Voss on 07-02-2023 CO2 [Moles/Vol] 10.0 mmol/L 21.0-32.0 [facility] Urea nitrogen/Creatinine [Mass ratio] 14.4 mg/mg 10-20 [facility] Laboratory - Drug toxicology Ordered By: Torsten Sutton on 07-02-2023 Amphetamines Ql (U) Negative <1000 ng/mL [facility] Benzodiazepines Ql (U) Positive < 200 ng/mL [facility] Cannabinoids Screen Ql (U) Negative < 50 ng/mL [facility] Cocaine Ql (U) Negative < 300 ng/mL [facility] Opiates Ql (U) Positive < 300 ng/mL [facility] Laboratory - Hematology and Cell countsOrdered By: Steven Voss on 07-02-2023 Erythrocyte distribution width (RBC) [Entitic vol] 43.7 fL 35.1-43.9 [facility] Erythrocyte distribution width (RBC) [Ratio] 12.9 % 11.6-14.6 [facility] Immature granulocytes/100 WBC (Bld) 0.600 % 0.0-0.9 [facility] Comment on above: IG% - Immature Granu locytes (promyelocytes, myelocytes and metamyelocytes) > 1% indicates that a LEFT SHIFT is Present. MCH (RBC) [Entitic mass] 29.7 pg 27.0-32.0 [facility] Nucleated RBC/100 WBC (Bld) [Ratio] 0 % 0-5 [facility] MCHC Auto (RBC) [Mass/Vol]Or dered By: Steven Voss on 07-02-2023 MCHC (RBC) [Mass/Vol] 32.3 g/dL 32-36 [facility] Mucus LM Ql (Urine sed)Order ed By: Steven Voss on 07-02-2023 Mucus Ql (Urine sed) 0 SEEN /hpf [facility] Nitrite Test strip Ql (U)Ord ered By: Steven Voss on 07-02-2023 Nitrite Ql (U) Negative Negative [facility] No Panel InformationOrdered By: Torsten Sutton on 07-02-2023 Ethyl Alcohol Level < 3.0 mg/dL [facility] Comment on above: The serum:whole bloo d ethanol ratio is approximately 1.14and varies slightly with hematocrit. Medical Alcohol reference interval and critical value innon-tolerant individuals; 50 - 100 Impairment 100 Intoxication 100 - 250 Severe Poisoning 250 - 400 Deep/possible fatal coma MDMA (Ecstasy) Screen Negative < 500 ng/mL [facility] Urine Barbiturates Screen Negative < 200 ng/mL [facility] Urine Drug Screen Comment [facility] Comment on above: CONFIRMATORY TESTING FOR ALL POSITIVE URINE DRUG SCREENRESULTS WILL ONLY BE SENT OUT UPON PHYSICIAN ORDER. VISTA Urine Drug Screen methods provide only preliminaryanalytical test results. A more specific alternate chemicalmethod must be used in order to obtain a confirmedanalytical result. Gas chromatography/mass spectrometery(GC/MS) is the preferred confirmatory method. Clinicalconsideration and professional judgement should be appliedto any drug of abuse test result, particularly whenpreliminary positive results are used. URINE TCA TESTING MUST BE ORDERED SEPARATELY. USE TESTMNEMONIC: [facility] Urine Methadone Screen Negative < 300 ng/mL [facility] No Panel InformationOrdered By: Steven Voss on 07-02-2023 Estimated GFR (MDRD) Amer 64 mL/min >60 [facility] Comment on above: GFR Calc Estimated GFR (MDRD) Non-Af Amer 53 mL/min >60 [facility] Comment on above: Non- GFR Calc Platelets bldOrdered By: Steven Voss on 07-02-2023 Platelets (Bld) [#/Vol] 261 10*3/uL 150-450 [facility] Protein Test strip Ql (U)Ord ered By: Steven Voss on 07-02-2023 Protein Ql (U) 30 mg/dl Negative [facility] Serum or plasma calcium jn urement (mass/volume)Ordered By: Steven Voss on 07-02-2023 Calcium [Mass/Vol] 10.2 mg/dL 8.5-10.1 [facility] Serum or plasma creatinine m easurement (mass/volume)Ordered By: Steven Voss on 07-02-2023 Creatinine [Mass/Vol] 1.11 mg/dL 0.55-1.02 [facility] Comment on above: The validity of the calculated GFR & GFRAA in patients over 70 years has not been determined. Clinical correlation is essential. Serum or plasma urea nitroge n measurement (mass/volume)Ordered By: Steven Voss on 07-02-2023 Urea nitrogen [Mass/Vol] 16 mg/dL 7-18 [facility] Squamous epithelial cells de tection in urine sediment by light microscopyOrdered By: Steven Voss on 07-02-2023 Epithelial cells.squamous LM Ql (Urine sed) 0-5 SEEN /hpf 5-10 [facility] Thin prep Papanicolaou smear with manual screeningOrdered By: Steven Voss on 07-02-2023 Thin prep Papanicolaou smear with manual screening 22 5-15 [facility] Urine blood detectionOrdered By: Steven Voss on 07-02-2023 RBC Ql (U) 50 /ul Negative [facility] RBC Ql (U) 0 SEEN /hpf 0-5 [facility] Urine clarityOrdered By: Steven Voss on 07-02-2023 Clarity (U) Clear Clear [facility] Urine color determinationOrd ered By: Steven Voss on 07-02-2023 Color (U) Yellow Yellow [facility] Urine glucose detectionOrder ed By: Steven Voss on 07-02-2023 Glucose Ql (U) 1000 mg/dl Normal [facility] Urine leukocyte esterase det ection by dipstickOrdered By: Steven Voss on 07-02-2023 Leukocyte esterase Test strip Ql (U) 100 /ul Negative [facility] [facility] Urine pHOrdered By: Steven ng on 07-02-2023 pH (U) 5.0 [pH] 5.0 - 8.0 [facility] Urine phencyclidine (PCP) de tectionOrdered By: Torsten Sutton on 07-02-2023 Phencyclidine Ql (U) Negative < 25 ng/mL [facility] Urine sediment bacteria coun t by microscopy (number/high power field)Ordered By: Steven Voss on 07-02-2023 Bacteria LM.HPF (Urine sed) [#/Area] 0 /[HPF] None Seen [facility] Urine specific gravity measu rementOrdered By: Stevenlois Voss on 07-02-2023 Specific gravity (U) [Rel density] 1.020 1.002-1.030 [facility] Urobilinogen Auto test strip Ql (U)Ordered By: Steven Voss on 07-02-2023 Urobilinogen Ql (U) Normal mg/dl Normal [facility] Whole blood hemoglobin A1c/t otal hemoglobin ratio (mass fraction)Ordered By: Torsten Sutton on 07-02-2023 HbA1c (Bld) [Mass fraction] 13.9 % 3.8-5.6 [facility] Comment on above: Normal < 5.7 % Predi abetic 5.7 - 6.4 % Diabetic >or= 6.5 % Please note range changes. Glucose Glucometer (BldC) [M ass/Vol]Ordered By: Aleksandar Rebolledo on 07-01-2023 Glucose [Mass/Vol] 490 mg/dL 74-106 [facility] Comment on above: Dr Abel RichmondMA NAGEMENT OF PATIENT CARE PER NURSING PROTOCOL Basophil percentageOrdered B y: Milind Lamb on 05-21-2023 Chloride [Moles/Vol] 100 mmol/L 98-107 [facility] Cholesterol [Mass/Vol] 223 mg/dL <200 [facility] Comment on above: <200 mg/dL Desirable 200-240 mg/dL Borderline >240 mg/dL High Risk Glucose [Mass/Vol] 371 mg/dL 74-106 [facility] Comment on above: Glucose result great er than or equal to 200 mg/dLsuggests DIABETES MELLITUS per A.D.A. criteria. Potassium [Moles/Vol] 4.0 mmol/L 3.5-5.1 [facility] Comment on above: Slight Hemolysis, Re sult may be falsely increased. Sodium [Moles/Vol] 134 mmol/L 136-145 [facility] Triglyceride [Mass/Vol] 116 mg/dL <199 [facility] Comment on above: The drugs N-Acetylcy steine and Metamizole may falsely depress this assay.Serum Triglycerides Reference Interval Normal <150 mg/dL Borderline high 150 - 199 mg/dL High 200 - 499 mg/dL Very High > or = 500 mg/dL Laboratory - Chemistry and C hemistry - challengeOrdered By: Milind Lamb on 05-21-2023 CO2 [Moles/Vol] 25.0 mmol/L 21.0-32.0 [facility] Urea nitrogen/Creatinine [Mass ratio] 22.5 mg/mg 10-20 [facility] No Panel InformationOrdered By: Milind Lamb on 05-21-2023 Estimated GFR (MDRD) Amer 83 mL/min >60 [facility] Comment on above: GFR Calc Estimated GFR (MDRD) Non-Af Amer 69 mL/min >60 [facility] Comment on above: Non- GFR Calc Serum or plasma calcium jn urement (mass/volume)Ordered By: Milind Lamb on 05-21-2023 Calcium [Mass/Vol] 9.2 mg/dL 8.5-10.1 [facility] Serum or plasma cholesterol in HDL measurement (mass/volume)Ordered By: Milind Lamb on 05-21-2023 Cholesterol in HDL [Mass/Vol] 107 mg/dL >40 [facility] Comment on above: The drugs N-Acetylcy steine and Metamizole may falsely depress this assay. Reference Range HDL <40 mg/dL Low HDL Cholesterol HDL >or= 60 mg/dL High HDL Cholesterol Serum or plasma cholesterol in VLDL measurement (mass/volume)Ordered By: Milind Lamb on 05-21-2023 Cholesterol in VLDL [Mass/Vol] 23 mg/dL 5-40 [facility] Serum or plasma creatinine m easurement (mass/volume)Ordered By: Milind Lamb on 05-21-2023 Creatinine [Mass/Vol] 0.89 mg/dL 0.55-1.02 [facility] Comment on above: The validity of the calculated GFR & GFRAA in patients over 70 years has not been determined. Clinical correlation is essential. Serum or plasma low density lipoprotein (LDL) cholesterol measurement (mass/volume)Ordered By: Milind Lamb on 05-21-2023 Cholesterol in LDL [Mass/Vol] 93 mg/dL 0-130 [facility] Serum or plasma urea nitroge n measurement (mass/volume)Ordered By: Milind Lamb on 05-21-2023 Urea nitrogen [Mass/Vol] 20 mg/dL 7-18 [facility] Thin prep Papanicolaou smear with manual screeningOrdered By: Milind Lamb on 05-21-2023 Thin prep Papanicolaou smear with manual screening 9 5-15 [facility] Basophil percentageOrdered B y: Dr. hAumada on 07-28-2022 Chloride [Moles/Vol] 114 mmol/L 98-107 [facility] Glucose [Mass/Vol] 80 mg/dL 74-106 [facility] Potassium [Moles/Vol] 2.5 mmol/L 3.5-5.1 [facility] Comment on above: Critical Result(s) C alled at: 06:56:24 07/28/2022 by: Arvin Santos RN (MS3). Results read back by same. Sodium [Moles/Vol] 141 mmol/L 136-145 [facility] Glucose Glucometer (BldC) [M ass/Vol]Ordered By: Dr. Ahumada on 07-28-2022 Glucose [Mass/Vol] 248 mg/dL 74-106 [facility] Comment on above: MANAGEMENT OF PATIEN T CARE PER NURSING PROTOCOL Laboratory - Chemistry and C hemistry - challengeOrdered By: Dr. Ahumada on 07-28-2022 CO2 [Moles/Vol] 20.0 mmol/L 21.0-32.0 [facility] Urea nitrogen/Creatinine [Mass ratio] 13.7 mg/mg 10-20 [facility] No Panel InformationOrdered By: Dr. Ahumada on 07-28-2022 Estimated Creatinine Clearance Calc 79.08 ml/min [facility] Estimated GFR (MDRD) Amer 135 mL/min >60 [facility] Comment on above: GFR Calc Estimated GFR (MDRD) Non-Af Amer 111 mL/min >60 [facility] Comment on above: Non- GFR Calc Serum or plasma calcium jn urement (mass/volume)Ordered By: Dr. Ahumada on 07-28-2022 Calcium [Mass/Vol] 8.8 mg/dL 8.5-10.1 [facility] Serum or plasma creatinine m easurement (mass/volume)Ordered By: Dr. Ahumada on 07-28-2022 Creatinine [Mass/Vol] 0.59 mg/dL 0.55-1.02 [facility] Comment on above: The validity of the calculated GFR & GFRAA in patients over 70 years has not been determined. Clinical correlation is essential. Serum or plasma urea nitroge n measurement (mass/volume)Ordered By: Dr. Ahumada on 07-28-2022 Urea nitrogen [Mass/Vol] 8 mg/dL 7-18 [facility] Thin prep Papanicolaou smear with manual screeningOrdered By: Dr. Ahumada on 07-28-2022 Thin prep Papanicolaou smear with manual screening 7 5-15 [facility] Absolute lymphocyte countOrd ered By: Dr. Ahumada on 07-27-2022 Lymphocytes Auto (Unsp spec) [#/Vol] 1.63 10*3/uL 0.83-4.51 [facility] Basophil percentageOrdered B y: Dr. Ahumada on 07-27-2022 Basophils/100 WBC (Bld) 0.4 % 0-1 [facility] Eosinophils/100 WBC (Bld) 0.9 % 0-5 [facility] Neutrophils (Bld) [#/Vol] 3.2 10*3/uL 2.0-7.7 [facility] Neutrophils/100 WBC (Bld) 58.4 % 47-70 [facility] WBC (Bld) [#/Vol] 5.5 10*3/uL 4.4-11.0 [facility] Blood erythrocytes count (nu mber/volume)Ordered By: Dr. Ahumada on 07-27-2022 RBC (Bld) [#/Vol] 3.37 10*6/uL 4.2-5.4 [facility] Blood hemoglobin measurement (mass/volume)Ordered By: Dr. Ahumada on 07-27-2022 Hemoglobin (Bld) [Mass/Vol] 10.2 g/dL 12.0-15.0 [facility] Blood lymphocytes/100 leukoc ytesOrdered By: Dr. Ahumada on 07-27-2022 Lymphocytes/100 WBC (Bld) 29.5 % 19-41 [facility] Blood monocytes/100 leukocyt esOrdered By: Dr. Ahumada on 07-27-2022 Monocytes/100 WBC (Bld) 10.3 % 0-10 [facility] Blood platelet mean volumeOr dered By: Dr. Ahumada on 07-27-2022 Platelet mean volume (Bld) [Entitic vol] 11.1 fL 6.2-12.0 [facility] Determination of erythrocyte mean corpuscular volume (MCV)Ordered By: Dr. Ahumada on 07-27-2022 MCV (RBC) [Entitic vol] 85.5 fL 81-99 [facility] Hematocrit Auto (Bld) [Volum e fraction]Ordered By: Dr. Ahumada on 07-27-2022 Hematocrit (Bld) [Volume fraction] 28.8 % 37-47 [facility] Laboratory - Hematology and Cell countsOrdered By: Dr. Ahumada on 07-27-2022 Erythrocyte distribution width (RBC) [Entitic vol] 40.8 fL 35.1-43.9 [facility] Erythrocyte distribution width (RBC) [Ratio] 13.2 % 11.6-14.6 [facility] Immature granulocytes/100 WBC (Bld) 0.500 % 0.0-0.9 [facility] Comment on above: IG% - Immature Granu locytes (promyelocytes, myelocytes and metamyelocytes) > 1% indicates that a LEFT SHIFT is Present. MCH (RBC) [Entitic mass] 30.3 pg 27.0-32.0 [facility] Nucleated RBC/100 WBC (Bld) [Ratio] 0 % 0-5 [facility] MCHC Auto (RBC) [Mass/Vol]Or dered By: Dr. Ahumada on 07-27-2022 MCHC (RBC) [Mass/Vol] 35.4 g/dL 32-36 [facility] Comment on above: Delta: 32.8 on 07/26-1135 Platelets bldOrdered By: Dr. Ahumada on 07-27-2022 Platelets (Bld) [#/Vol] 156 10*3/uL 150-450 [facility] Absolute lymphocyte countOrd ered By: Dr. Voss on 07-26-2022 Lymphocytes Auto (Unsp spec) [#/Vol] 1.17 10*3/uL 0.83-4.51 [facility] Basophil percentageOrdered B y: Dr. Voss on 07-26-2022 Basophil percentage 0 SEEN /hpf 0-5 [facility] Basophils/100 WBC (Bld) 0.7 % 0-1 [facility] Chloride [Moles/Vol] 99 mmol/L 98-107 [facility] Eosinophils/100 WBC (Bld) 0.1 % 0-5 [facility] Glucose [Mass/Vol] 686 mg/dL 74-106 [facility] Comment on above: Critical Result(s) C alled at: 12:11:35 07/26/2022 by: June Donnelly. Results read back by same.Glucose result greater than or equal to 200 mg/dLsuggests DIABETES MELLITUS per A.D.A. criteria. Neutrophils (Bld) [#/Vol] 7.7 10*3/uL 2.0-7.7 [facility] Neutrophils/100 WBC (Bld) 79.8 % 47-70 [facility] Potassium [Moles/Vol] 4.2 mmol/L 3.5-5.1 [facility] Sodium [Moles/Vol] 132 mmol/L 136-145 [facility] WBC (Bld) [#/Vol] 9.7 10*3/uL 4.4-11.0 [facility] Bilirubin Test strip Ql (U)O rdered By: Dr. Voss on 07-26-2022 Bilirubin Ql (U) Negative Negative [facility] Blood erythrocytes count (nu mber/volume)Ordered By: Dr. Voss on 07-26-2022 RBC (Bld) [#/Vol] 4.25 10*6/uL 4.2-5.4 [facility] Blood hemoglobin measurement (mass/volume)Ordered By: Dr. Voss on 07-26-2022 Hemoglobin (Bld) [Mass/Vol] 12.5 g/dL 12.0-15.0 [facility] Blood lymphocytes/100 leukoc ytesOrdered By: Dr. Voss on 07-26-2022 Lymphocytes/100 WBC (Bld) 12.1 % 19-41 [facility] Blood monocytes/100 leukocyt esOrdered By: Dr. Voss on 07-26-2022 Monocytes/100 WBC (Bld) 5.0 % 0-10 [facility] Blood platelet mean volumeOr dered By: Dr. Voss on 07-26-2022 Platelet mean volume (Bld) [Entitic vol] 12.0 fL 6.2-12.0 [facility] Determination of erythrocyte mean corpuscular volume (MCV)Ordered By: Dr. Voss on 07-26-2022 MCV (RBC) [Entitic vol] 89.6 fL 81-99 [facility] Glucose Glucometer (BldC) [M ass/Vol]Ordered By: Dr. Voss on 07-26-2022 Glucose [Mass/Vol] mg/dL 74-106 [facility] Comment on above: Dr Abel Malagon NAGEMENT OF PATIENT CARE PER NURSING PROTOCOL Hematocrit Auto (Bld) [Volum e fraction]Ordered By: Dr. Voss on 07-26-2022 Hematocrit (Bld) [Volume fraction] 38.1 % 37-47 [facility] Ketones Test strip Ql (U)Ord ered By: Dr. Voss on 07-26-2022 Ketones Ql (U) 150 mg/dl Negative [facility] Comment on above: CRITICAL VALUE *HCRI TICAL VALUE VERIFIED. CALLED TO JAMILAH TERAN (ICU)07/26/22 [id number] Eric Anthony.RESULTS READ BACK BY SAME. Laboratory - Chemistry and C hemistry - challengeOrdered By: Dr. Voss on 07-26-2022 CO2 [Moles/Vol] 6.0 mmol/L 21.0-32.0 [facility] Comment on above: Critical Result(s) C alled at: 12:11:35 07/26/2022 by: June Fung to [facility]. Results read back by same. Magnesium [Mass/Vol] 2.3 mg/dL 1.6-2.6 [facility] Urea nitrogen/Creatinine [Mass ratio] 10.6 mg/mg 10-20 [facility] Laboratory - Hematology and Cell countsOrdered By: Dr. Voss on 07-26-2022 Erythrocyte distribution width (RBC) [Entitic vol] 43.4 fL 35.1-43.9 [facility] Erythrocyte distribution width (RBC) [Ratio] 13.2 % 11.6-14.6 [facility] Immature granulocytes/100 WBC (Bld) 2.300 % 0.0-0.9 [facility] Comment on above: IG% - Immature Granu locytes (promyelocytes, myelocytes and metamyelocytes) > 1% indicates that a LEFT SHIFT is Present. MCH (RBC) [Entitic mass] 29.4 pg 27.0-32.0 [facility] Nucleated RBC/100 WBC (Bld) [Ratio] 0 % 0-5 [facility] MCHC Auto (RBC) [Mass/Vol]Or dered By: Dr. Voss on 07-26-2022 MCHC (RBC) [Mass/Vol] 32.8 g/dL 32-36 [facility] Mucus LM Ql (Urine sed)Order ed By: Dr. Voss on 07-26-2022 Mucus Ql (Urine sed) 0 SEEN /hpf [facility] Nitrite Test strip Ql (U)Ord ered By: Dr. Voss on 07-26-2022 Nitrite Ql (U) Negative Negative [facility] No Panel InformationOrdered By: Dr. Voss on 07-26-2022 Estimated Creatinine Clearance Calc 37.49 ml/min [facility] Estimated GFR (MDRD) Amer 53 mL/min >60 [facility] Comment on above: GFR Calc Estimated GFR (MDRD) Non-Af Amer 44 mL/min >60 [facility] Comment on above: Non- GFR Calc Platelets bldOrdered By: Dr. Voss on 07-26-2022 Platelets (Bld) [#/Vol] 234 10*3/uL 150-450 [facility] Protein Test strip Ql (U)Ord ered By: Dr. Voss on 07-26-2022 Protein Ql (U) 30 mg/dl Negative [facility] Serum or plasma calcium jn urement (mass/volume)Ordered By: Dr. Voss on 07-26-2022 Calcium [Mass/Vol] 9.7 mg/dL 8.5-10.1 [facility] Serum or plasma creatinine m easurement (mass/volume)Ordered By: Dr. Voss on 07-26-2022 Creatinine [Mass/Vol] 1.32 mg/dL 0.55-1.02 [facility] Comment on above: The validity of the calculated GFR & GFRAA in patients over 70 years has not been determined. Clinical correlation is essential. Serum or plasma urea nitroge n measurement (mass/volume)Ordered By: Dr. Voss on 07-26-2022 Urea nitrogen [Mass/Vol] 14 mg/dL 7-18 [facility] Squamous epithelial cells de tection in urine sediment by light microscopyOrdered By: Dr. Voss on 07-26-2022 Epithelial cells.squamous LM Ql (Urine sed) 0 SEEN /hpf 5-10 [facility] Thin prep Papanicolaou smear with manual screeningOrdered By: Dr. Voss on 07-26-2022 Thin prep Papanicolaou smear with manual screening 27 5-15 [facility] Urine blood detectionOrdered By: Dr. Voss on 07-26-2022 RBC Ql (U) 10 /ul Negative [facility] RBC Ql (U) 0-5 SEEN /hpf 0-5 [facility] Urine clarityOrdered By: Dr. Voss on 07-26-2022 Clarity (U) Clear Clear [facility] Urine color determinationOrd ered By: Dr. Voss on 07-26-2022 Color (U) Straw Yellow [facility] Urine glucose detectionOrder ed By: Dr. Voss on 07-26-2022 Glucose Ql (U) 1000 mg/dl Normal [facility] Urine leukocyte esterase det ection by dipstickOrdered By: Dr. Voss on 07-26-2022 Leukocyte esterase Test strip Ql (U) Negative Negative [facility] Urine pHOrdered By: Dr. Melissa ng on 07-26-2022 pH (U) 6.5 [pH] 5.0 - 8.0 [facility] Urine sediment bacteria coun t by microscopy (number/high power field)Ordered By: Dr. Voss on 07-26-2022 Bacteria LM.HPF (Urine sed) [#/Area] 0 /[HPF] None Seen [facility] Urine specific gravity measu rementOrdered By: Dr. Voss on 07-26-2022 Specific gravity (U) [Rel density] 1.015 1.002-1.030 [facility] Urobilinogen Auto test strip Ql (U)Ordered By: Dr. Voss on 07-26-2022 Urobilinogen Ql (U) Normal mg/dl Normal [facility] Whole blood hemoglobin A1c/t otal hemoglobin ratio (mass fraction)Ordered By: Dr. Ahumada on 07-26-2022 HbA1c (Bld) [Mass fraction] % 3.8-5.6 [facility] Comment on above: Normal < 5.7 % Predi abetic 5.7 - 6.4 % Diabetic >or= 6.5 % Please note range changes. RSV Ag EIAOrdered By: Dr. Malcom jackson on 05-03-2022 RSV Ag Immune stain Ql (Tiss) [facility] SARS-CoV-2 (COVID-19) Ag IA. rapid Ql (Resp)Ordered By: Dr. Gleason on 05-03-2022 SARS-CoV-2 Antigen (Rapid) SARS-CoV-2 (COVID 19) [facility] Basophil percentageOrdered B y: Dr. Mcclendon on 04-11-2022 Bilirubin [Mass/Vol] 0.50 mg/dL 0.20-1.00 [facility] Comment on above: For patients on eltr ombopag therapy, use of Dimension [place] TBIL is not recommended. Chloride [Moles/Vol] 103 mmol/L 98-107 [facility] Glucose [Mass/Vol] 139 mg/dL 74-106 [facility] Comment on above: Fasting Glucose resu lt greater than or equal to 126 mg/dL suggests DIABETES MELLITUS per A.D.A. criteria. Potassium [Moles/Vol] 3.8 mmol/L 3.5-5.1 [facility] Protein [Mass/Vol] 7.7 g/dL 6.4-8.2 [facility] Sodium [Moles/Vol] 139 mmol/L 136-145 [facility] Laboratory - Chemistry and C hemistry - challengeOrdered By: Dr. Mcclendon on 04-11-2022 ALP [Catalytic activity/Vol] 88 U/L 45-117 [facility] ALT [Catalytic activity/Vol] 14 U/L 13-56 [facility] CO2 [Moles/Vol] 31.0 mmol/L 21.0-32.0 [facility] Globulin (S) [Mass/Vol] 3.5 g/dL 2.2-4.2 [facility] Urea nitrogen/Creatinine [Mass ratio] 17.6 mg/mg 10-20 [facility] No Panel InformationOrdered By: Dr. Mcclendon on 04-11-2022 Estimated GFR (MDRD) Amer 113 mL/min >60 [facility] Comment on above: GFR Calc Estimated GFR (MDRD) Non-Af Amer 94 mL/min >60 [facility] Comment on above: Non- GFR Calc Serum or plasma albumin jn urement (mass/volume)Ordered By: Dr. Mcclendon on 04-11-2022 Albumin [Mass/Vol] 4.2 g/dL 3.2-5.0 [facility] Serum or plasma albumin/glob ulin mass ratioOrdered By: Dr. Mcclendon on 04-11-2022 Albumin/Globulin [Mass ratio] 1.2 {ratio} 0.9-2.4 [facility] Serum or plasma calcium jn urement (mass/volume)Ordered By: Dr. Mcclendon on 04-11-2022 Calcium [Mass/Vol] 9.7 mg/dL 8.5-10.1 [facility] Serum or plasma creatinine m easurement (mass/volume)Ordered By: Dr. Mcclendon on 04-11-2022 Creatinine [Mass/Vol] 0.68 mg/dL 0.55-1.02 [facility] Comment on above: The validity of the calculated GFR & GFRAA in patients over 70 years has not been determined. Clinical correlation is essential. Serum or plasma urea nitroge n measurement (mass/volume)Ordered By: Dr. Mcclendon on 04-11-2022 Urea nitrogen [Mass/Vol] 12 mg/dL 7-18 [facility] Thin prep Papanicolaou smear with manual screeningOrdered By: Dr. Mcclendon on 04-11-2022 Thin prep Papanicolaou smear with manual screening 8 U/L 15-37 [facility] Thin prep Papanicolaou smear with manual screening 5 5-15 [facility] Absolute lymphocyte counton 03-06-2022 Lymphocytes Auto (Unsp spec) [#/Vol] 1.89 10*3/uL 0.83-4.51 [facility] Work Phone: Basophil percentageon 2021 Basophil percentage 4.0 mg/dL 2.5-4.9 [facility] Work Phone: Chloride [Moles/Vol] 111 mmol/L 98-107 [facility] Work Phone: Glucose [Mass/Vol] 233 mg/dL 74-106 [facility] Work Phone: Comment on above: Glucose result great er than or equal to 200 mg/dLsuggests DIABETES MELLITUS per A.D.A. criteria. Potassium [Moles/Vol] 4.3 mmol/L 3.5-5.1 [facility] Work Phone: Sodium [Moles/Vol] 141 mmol/L 136-145 [facility] Work Phone: Basophils/100 WBC (Bld) 0.5 % 0-1 [facility] Work Phone: Bilirubin [Mass/Vol] 0.30 mg/dL 0.20-1.00 [facility] Work Phone: Comment on above: For patients on eltr ombopag therapy, use of Dimension [place] TBIL is not recommended. Eosinophils/100 WBC (Bld) 1.2 % 0-5 [facility] Work Phone: Neutrophils (Bld) [#/Vol] 1.6 10*3/uL 2.0-7.7 [facility] Work Phone: Neutrophils/100 WBC (Bld) 37.9 % 47-70 [facility] Work Phone: Protein [Mass/Vol] 5.6 g/dL 6.4-8.2 [facility] Work Phone: WBC (Bld) [#/Vol] 4.1 10*3/uL 4.4-11.0 [facility] Work Phone: Blood erythrocytes count (nu mber/volume)on 03-06-2022 RBC (Bld) [#/Vol] 3.50 10*6/uL 4.2-5.4 [facility] Work Phone: Blood hemoglobin measurement (mass/volume)on 03-06-2022 Hemoglobin (Bld) [Mass/Vol] 10.8 g/dL 12.0-15.0 [facility] Work Phone: Blood lymphocytes/100 leukoc yteson 03-06-2022 Lymphocytes/100 WBC (Bld) 46.0 % 19-41 [facility] Work Phone: Blood monocytes/100 leukocyt eson 03-06-2022 Monocytes/100 WBC (Bld) 13.9 % 0-10 [facility] Work Phone: Blood platelet mean volumeon 03-06-2022 Platelet mean volume (Bld) [Entitic vol] 11.0 fL 6.2-12.0 [facility] Work Phone: Determination of erythrocyte mean corpuscular volume (MCV)on 03-06-2022 MCV (RBC) [Entitic vol] 88.3 fL 81-99 [facility] Work Phone: Glucose Glucometer (BldC) [M ass/Vol]on 03-06-2022 Glucose [Mass/Vol] 184 mg/dL 74-106 [facility] Work Phone: Comment on above: MANAGEMENT OF PATIEN T CARE PER NURSING PROTOCOL Hematocrit Auto (Bld) [Volum e fraction]on 03-06-2022 Hematocrit (Bld) [Volume fraction] 30.9 % 37-47 [facility] Work Phone: Laboratory - Chemistry and C hemistry - challengeon 03-06-2022 CO2 [Moles/Vol] 25.0 mmol/L 21.0-32.0 [facility] Work Phone: [phone] Urea nitrogen/Creatinine [Mass ratio] 6.8 mg/mg 10-20 [facility] Work Phone: [phone] ALP [Catalytic activity/Vol] 71 U/L 45-117 [facility] Work Phone: [phone] ALT [Catalytic activity/Vol] 11 U/L 13-56 [facility] Work Phone: [phone] Globulin (S) [Mass/Vol] 2.9 g/dL 2.2-4.2 [facility] Work Phone: [phone] Magnesium [Mass/Vol] 2.5 mg/dL 1.6-2.6 [facility] Work Phone: [phone] Laboratory - Hematology and Cell countson 03-06-2022 Erythrocyte distribution width (RBC) [Entitic vol] 45.3 fL 35.1-43.9 [facility] Work Phone: [phone] Erythrocyte distribution width (RBC) [Ratio] 14.2 % 11.6-14.6 [facility] Work Phone: [phone] Immature granulocytes/100 WBC (Bld) 0.500 % 0.0-0.9 [facility] Work Phone: [phone] Comment on above: IG% - Immature Granu locytes (promyelocytes, myelocytes and metamyelocytes) > 1% indicates that a LEFT SHIFT is Present. MCH (RBC) [Entitic mass] 30.9 pg 27.0-32.0 [facility] Work Phone: Nucleated RBC/100 WBC (Bld) [Ratio] 0 % 0-5 [facility] Work Phone: [phone] MCHC Auto (RBC) [Mass/Vol]on 03-06-2022 MCHC (RBC) [Mass/Vol] 35.0 g/dL 32-36 [facility] Work Phone: No Panel Informationon 03-06 Estimated Creatinine Clearance Calc 67.71 ml/min [facility] Work Phone: [phone] Estimated GFR (MDRD) Amer 103 mL/min >60 [facility] Work Phone: [phone] Comment on above: GFR Calc Estimated GFR (MDRD) Non-Af Amer 85 mL/min >60 [facility] Work Phone: Comment on above: Non- GFR Calc Platelets bldon 03-06-2022 Platelets (Bld) [#/Vol] 131 10*3/uL 150-450 [facility] Work Phone: [phone] Serum or plasma albumin jn urement (mass/volume)on 03-06-2022 Albumin [Mass/Vol] 2.7 g/dL 3.2-5.0 [facility] Work Phone: [phone] Serum or plasma albumin/glob ulin mass ratioon 03-06-2022 Albumin/Globulin [Mass ratio] 0.9 {ratio} 0.9-2.4 [facility] Work Phone: [phone] Serum or plasma calcium jn urement (mass/volume)on 03-06-2022 Calcium [Mass/Vol] 8.7 mg/dL 8.5-10.1 [facility] Work Phone: [phone] Serum or plasma creatinine m easurement (mass/volume)on 03-06-2022 Creatinine [Mass/Vol] 0.74 mg/dL 0.55-1.02 [facility] Work Phone: Comment on above: The validity of the calculated GFR & GFRAA in patients over 70 years has not been determined. Clinical correlation is essential. Serum or plasma urea nitroge n measurement (mass/volume)on 03-06-2022 Urea nitrogen [Mass/Vol] 5 mg/dL 7-18 [facility] Work Phone: Thin prep Papanicolaou smear with manual screeningon 03-06-2022 Thin prep Papanicolaou smear with manual screening 5 5-15 [facility] Work Phone: [phone] Thin prep Papanicolaou smear with manual screening 11 U/L 15-37 [facility] Work Phone: [phone] Assessment of wrist artery p atency prior to arterial punctureon 03-04-2022 Arterial patency Wrist artery --pre arterial puncture Positive [facility] Work Phone: Base excesson 03-04-2022 Base excess Calc (BldV) [Moles/Vol] -17 mmol/L -2-2 [facility] Work Phone: Basophil percentageon 2021 Basophil percentage 10.7 mmol/L 22-26 [facility] Work Phone: Basophils/100 WBC (Bld) 96 % 95-99 [facility] Work Phone: Blood platelet morphology de termination (nominal result)on 03-04-2022 Platelet morphology finding Nom (Bld) CLUMPED [facility] Work Phone: CO2 (BldA) [Partial pressure ]on 03-04-2022 CO2 (Bld) [Partial pressure] 24.5 mm[Hg] 35-45 [facility] Work Phone: Laboratory - Chemistry and C hemistry - challengeon 03-04-2022 Lipase [Catalytic activity/Vol] 497 U/L 73-393 [facility] Work Phone: No Panel Informationon 03-04 Blood Gas Oxygen Percent 21 [facility] Work Phone: Blood Gas Sample Site L Radial [facility] Work Phone: Blood Gas Specimen Type ART [facility] Work Phone: [phone] Blood Gas Total CO2 12 mmol/L [facility] Work Phone: Oxygen (BldA) [Partial press ure]on 03-04-2022 Oxygen (Bld) [Partial pressure] 89 mmHG 75-100 [facility] Work Phone: Whole blood hemoglobin A1c/t otal hemoglobin ratio (mass fraction)on 03-04-2022 HbA1c (Bld) [Mass fraction] 13.4 % 3.8-5.6 [facility] Work Phone: Comment on above: Normal < 5.7 % Predi abetic 5.7 - 6.4 % Diabetic >or= 6.5 % Please note range changes. pH measurementon 03-04-2022 pH (Unsp spec) 7.25 [pH] 7.35-7.45 [facility] Work Phone: Basophil percentageon 2021 Basophil percentage 0-5 SEEN /hpf 0-5 [facility] Work Phone: Lactate [Moles/Vol] 1.2 mmol/L [facility] Bilirubin Test strip Ql (U)o n 03-03-2022 Bilirubin Ql (U) Negative Negative [facility] Work Phone: INR in Blood by Coagulation assayon 03-03-2022 INR Coag (Bld) [Relative time] 1.1 {INR} [facility] Work Phone: Ketones Test strip Ql (U)on 03-03-2022 Ketones Ql (U) 150 mg/dl Negative [facility] Work Phone: Comment on above: CRITICAL VALUE VERIF IED. CALLED TO BIJU RIOS RN (ER)03/03/222004 Blaine Villanueva.RESULTS READ BACK BY SAME . CRITICAL VALUE *H Laboratory - Coagulationon 0 03-03-2022 PT Coag (PPP) [Time] 13.4 s 11.7-14.9 [facility] Work Phone: Mucus LM Ql (Urine sed)on Mucus Ql (Urine sed) 0 SEEN /hpf [facility] Work Phone: Nitrite Test strip Ql (U)on 03-03-2022 Nitrite Ql (U) Negative Negative [facility] Work Phone: No Panel Informationon 03-03 Bld Gas Crit Called To/Read Back By Yes [facility] Work Phone: Blood Gas Notified Whom brenna Mendez [facility] Work Phone: Ethyl Alcohol Level < 3.0 mg/dL [facility] Work Phone: Comment on above: The serum:whole bloo d ethanol ratio is approximately 1.14and varies slightly with hematocrit. Medical Alcohol reference interval and critical value innon-tolerant individuals; 50 - 100 Impairment 100 Intoxication 100 - 250 Severe Poisoning 250 - 400 Deep/possible fatal coma Troponin I High Sensitivity 11 pg/mL 3.0-54.0 [facility] Work Phone: Comment on above: Please Note: New Jessica t Units and Gender Specific Reference Ranges. For more information see Policy Stat Procedure [place] High Sensitivity Troponin (TNIH) and attachments. Protein Test strip Ql (U)on 03-03-2022 Protein Ql (U) 30 mg/dl Negative [facility] Work Phone: Serum or plasma acetone jn urement (mass/volume)on 03-03-2022 Acetone [Mass/Vol] LARGE NEG [facility] Work Phone: Squamous epithelial cells de tection in urine sediment by light microscopyon 03-03-2022 Epithelial cells.squamous LM Ql (Urine sed) 0-5 SEEN /hpf 5-10 [facility] Work Phone: Urine blood detectionon 02-05 RBC Ql (U) 25 /ul Negative [facility] Work Phone: RBC Ql (U) 0-5 SEEN /hpf 0-5 [facility] Work Phone: [phone] Urine clarityon 03-03-2022 Clarity (U) Clear Clear [facility] Work Phone: Urine coarse granular cast d etectionon 03-03-2022 Coarse Granular Casts LM Ql (Urine sed) 5-10 SEEN /lpf 0-5 /lpf [facility] Work Phone: Urine color determinationon 03-03-2022 Color (U) Straw Yellow [facility] Work Phone: Urine glucose detectionon Glucose Ql (U) 1000 mg/dl Normal [facility] Work Phone: Urine leukocyte esterase det ection by dipstickon 03-03-2022 Leukocyte esterase Test strip Ql (U) 100 /ul Negative [facility] Work Phone: Urine pHon 03-03-2022 pH (U) 5.0 [pH] 5.0 - 8.0 [facility] Work Phone: Urine sediment bacteria coun t by microscopy (number/high power field)on 03-03-2022 Bacteria LM.HPF (Urine sed) [#/Area] 1 /[HPF] None Seen [facility] Work Phone: Urine sediment yeast count b y microscopy (number/high powered field)on 03-03-2022 Yeast LM.HPF (Urine sed) [#/Area] RARE /hpf None Seen [facility] Work Phone: Urine specific gravity measu rementon 03-03-2022 Specific gravity (U) [Rel density] 1.020 1.002-1.030 [facility] Work Phone: Urobilinogen Auto test strip Ql (U)on 03-03-2022 Urobilinogen Ql (U) Normal mg/dl Normal [facility] Work Phone: XR ELBOW MINIMUM 3 VIEWS LEF Ton 07-22-2018 XR ELBOW MINIMUM 3 VIEWS LEFT ORIGINAL LEFT elbow 3 views HISTORY: Contusion COMPARISON: None There is mild enthesopathy at the lateral humeral epicondyles. No fracture, dislocation or joint fluid seen. Interpreted By: Angelo Cannon MD Preliminary Report By: Angelo Cannon MD Electronically Signed By: Angelo Cannon MD Dictated Date: 07/22/2018 9:19:42 AM Prelim Date: 07/22/2018 9:19:42 AM Sign Date: 07/22/2018 9:20:04 AM Normal [facility] ([place]) No Panel Information SARS-CoV-2 & FLU Antigen (Rapid) [facility] Work Phone: SARS-CoV-2 (COVID-19) Ag IA. rapid Ql (Resp) SARS-CoV-2 Antigen (Rapid) SARS-CoV-2 (COVID 19) [facility] Work Phone: Vital Signs Date Time Vital Sign Value Performing Clinician Faci lity 07-29-2023 16:28-0500 Diastolic blood pressure 80 mm[Hg] Dr. Milind Lamb Work Phone: [facility] 07-29-2023 16:28-0500 Heart rate 99 /min Dr. Milind Lamb Work Phone: [facility] 07-29-2023 16:28-0500 Respiratory rate 23 /min Dr. Milind [facility] Work Phone: 7(131)073-651848 [address] 07-29-2023 16:28-0500 SaO2% (BldA) [Mass fraction] 98 % Dr. Milind Lamb Work Phone: [facility] 07-29-2023 16:28-0500 Systolic blood pressure 150 mm[Hg] Dr. Milind Lamb Work Phone: [facility] 07-29-2023 12:34-0500 Body height 160.[address] Milind Lamb Work Phone: [facility] 07-29-2023 12:34-0500 Body mass index (BMI) [Ratio] 23.7 kg/m2 Dr. Milind Lamb Work Phone: [facility] 07-29-2023 12:34-0500 Body temperature 95.9 [degF] Dr. Milind Lamb Work Phone: [facility] 07-29-2023 12:34-0500 Body weight 60.[address] Milind Lamb Work Phone: [facility] 07-06-2023 12:39-0500 Body temperature 98.2 [degF] Dr. Milind Lamb Work Phone: 5(696)166-054641 [place] [address] 07-06-2023 12:39-0500 Diastolic blood pressure 71 mm[Hg] Dr. Milind Lamb Work Phone: [facility] 07-06-2023 12:39-0500 Heart rate 98 /min Dr. Milind Lamb Work Phone: [facility] 07-06-2023 12:39-0500 Respiratory rate 18 /min Dr. Milind Lamb Work Phone: [facility] 07-06-2023 12:39-0500 SaO2% (BldA) [Mass fraction] 100 % Dr. Milind Lamb Work Phone: [facility] 07-06-2023 12:39-0500 Systolic blood pressure 141 mm[Hg] Dr. Milind Lamb Work Phone: [facility] 07-05-2023 12:30-0500 Body weight 56.[address] Milind Lamb Work Phone: [facility] 07-05-2023 06:00-0500 Body mass index (BMI) [Ratio] 21.9 kg/m2 Dr. Milind Lamb Work Phone: [facility] 07-02-2023 21:27-0500 Body temperature 98.3 [degF] [facility] 07-02-2023 21:27-0500 Diastolic blood pressure 81 mm[Hg] [facility] 07-02-2023 21:27-0500 Heart rate 124 /min [facility] 07-02-2023 21:27-0500 Respiratory rate 26 /min [facility] 07-02-2023 21:27-0500 SaO2% (BldA) [Mass fraction] 100 % [facility] 07-02-2023 21:27-0500 Systolic blood pressure 176 mm[Hg] [facility] 07-02-2023 20:50-0500 Body mass index (BMI) [Ratio] 21.4 kg/m2 [facility] 07-02-2023 20:50-0500 Body weight 54.88 kg [facility] 07-02-2023 18:19-0500 Body height 160.02 cm [facility] 07-02-2023 09:02-0500 Diastolic blood pressure 87 mm[Hg] [facility] 07-02-2023 09:02-0500 Heart rate 110 /min [facility] 07-02-2023 09:02-0500 Respiratory rate 16 /min [facility] 07-02-2023 09:02-0500 SaO2% (BldA) [Mass fraction] 98 % [facility] 07-02-2023 09:02-0500 Systolic blood pressure 149 mm[Hg] [facility] 07-02-2023 07:39-0500 Body height 160.02 cm [facility] 07-02-2023 07:39-0500 Body mass index (BMI) [Ratio] 21.4 kg/m2 [facility] 07-02-2023 07:39-0500 Body temperature 96.8 [degF] [facility] 07-02-2023 07:39-0500 Body weight 55.06 kg [facility] 06-30-2023 23:17-0500 Body height 160.02 cm [facility] 06-30-2023 23:17-0500 Body mass index (BMI) [Ratio] 21.9 kg/m2 [facility] 06-30-2023 23:17-0500 Body temperature 97.2 [degF] [facility] 06-30-2023 23:17-0500 Body weight 56.01 kg [facility] 06-30-2023 23:17-0500 Diastolic blood pressure 87 mm[Hg] [facility] 06-30-2023 23:17-0500 Heart rate 105 /min [facility] 06-30-2023 23:17-0500 Respiratory rate 18 /min [facility] 06-30-2023 23:17-0500 SaO2% (BldA) [Mass fraction] 100 % [facility] 06-30-2023 23:17-0500 Systolic blood pressure 169 mm[Hg] [facility] 07-28-2022 14:10-0500 Body temperature 98 [degF] Dr. Milind Lamb Work Phone: [facility] 07-28-2022 14:10-0500 Diastolic blood pressure 72 mm[Hg] Dr. Milind Lamb Work Phone: [facility] 07-28-2022 14:10-0500 Heart rate 86 /min Dr. Milind Lamb Work Phone: [facility] 07-28-2022 14:10-0500 Respiratory rate 18 /min Dr. Milind Lamb Work Phone: 7(625)792-320948 [address] 07-28-2022 14:10-0500 SaO2% (BldA) [Mass fraction] 98 % Dr. Milind Lamb Work Phone: 8(845)561-239077 [place] [address] 07-28-2022 14:10-0500 Systolic blood pressure 124 mm[Hg] Dr. Milind Lamb Work Phone: 0(918)584-679477 [place] [address] 07-28-2022 05:51-0500 Body weight 49.[address] Milind Lamb Work Phone: 5(975)913-305577 [place] [address] 07-26-2022 15:25-0500 Body height 160.[address] Milind Lamb Work Phone: 5(066)860-749377 [place] [address] 07-26-2022 13:53-0500 Body mass index (BMI) [Ratio] 19.3 kg/m2 Dr. Milind Lamb Work Phone: 9(536)079-907377 [place] [address] 07-26-2022 13:00-0500 Body temperature 97.4 [degF] Dr. Milind Lamb Work Phone: 7(185)711-582341 [place] [address] 07-26-2022 13:00-0500 Diastolic blood pressure 73 mm[Hg] Dr. Milind Lamb Work Phone: 1(512)682-600248 [address] 07-26-2022 13:00-0500 Heart rate 107 /min Dr. Milind Lamb Work Phone: 7(211)942-888141 [place] [address] 07-26-2022 13:00-0500 Respiratory rate 27 /min Dr. Milind Lamb Work Phone: 4(007)399-360341 [place] [address] 07-26-2022 13:00-0500 SaO2% (BldA) [Mass fraction] 99 % Dr. Milind Lamb Work Phone: [facility] 07-26-2022 13:00-0500 Systolic blood pressure 138 mm[Hg] Dr. Milind Lamb Work Phone: [facility] 07-26-2022 11:12-0500 Body height 160.[address] Milind Lamb Work Phone: 0(248)868-278848 [address] 07-26-2022 11:12-0500 Body mass index (BMI) [Ratio] 21.2 kg/m2 Dr. Milind Lamb Work Phone: 4(048)125-801648 [address] 07-26-2022 11:12-0500 Body weight 54.[address] Milind Lamb Work Phone: 9(355)939-128648 [address] 05-03-2022 06:11-0400 Body height 160.[address] Milind Lamb Work Phone: 0(547)324-563041 [place] [address] Work Phone: 05-03-2022 06:11-0400 Body mass index (BMI) [Ratio] 21.4 kg/m2 Dr. Milind Lamb Work Phone: 3(476)688-460248 [address] 05-03-2022 06:11-0400 Body temperature 98 [degF] Dr. Milind Lamb Work Phone: 5(692)726-972241 [place] [address] 05-03-2022 06:11-0400 Body weight 54.[address] Milind Lamb Work Phone: 0(705)319-201748 [address] 05-03-2022 06:11-0400 Diastolic blood pressure 84 mm[Hg] Dr. Milind Lamb Work Phone: 2(539)911-534041 [place] [address] 05-03-2022 06:11-0400 Heart rate 102 /min Dr. Milind Lamb Work Phone: 8(510)558-191548 [address] 05-03-2022 06:11-0400 Respiratory rate 16 /min Dr. Milind Lamb Work Phone: 9(388)639-779641 [place] [address] 05-03-2022 06:11-0400 SaO2% (BldA) [Mass fraction] 100 % Dr. Milind Lamb Work Phone: [facility] 05-03-2022 06:11-0400 Systolic blood pressure 157 mm[Hg] Dr. Milind Lamb Work Phone: [facility] 04-11-2022 08:16-0400 Body height 160.[address] Milind Lamb Work Phone: [facility] Work Phone: 04-11-2022 08:16-0400 Body mass index (BMI) [Ratio] 20.9 kg/m2 Dr. Milind Lamb Work Phone: [facility] 04-11-2022 08:16-0400 Body temperature 96.5 [degF] Dr. Milind Lamb Work Phone: [facility] 04-11-2022 08:16-0400 Body weight 53.[address] Milind Lamb Work Phone: [facility] 04-11-2022 08:16-0400 Diastolic blood pressure 81 mm[Hg] Dr. Milind Lamb Work Phone: [facility] 04-11-2022 08:16-0400 Heart rate 80 /min Dr. Milind Lamb Work Phone: [facility] 04-11-2022 08:16-0400 Respiratory rate 18 /min Dr. Milind Lamb Work Phone: [facility] 04-11-2022 08:16-0400 SaO2% (BldA) [Mass fraction] 97 % Dr. Milind Lamb Work Phone: [facility] 04-11-2022 08:16-0400 Systolic blood pressure 140 mm[Hg] Dr. Milind Lamb Work Phone: [facility] 03-06-2022 14:50-0400 Body temperature 97.9 [degF] Dr. Milind Lamb Work Phone: [facility] Work Phone: 08-31-2022 14:50-0400 Diastolic blood pressure 88 mm[Hg] Dr. Milind Lamb Work Phone: [facility] Work Phone: 03-06-2022 14:50-0400 Heart rate 91 /min Dr. Milind Lamb Work Phone: [facility] Work Phone: 03-06-2022 14:50-0400 Respiratory rate 16 /min Dr. Milind Lamb Work Phone: [facility] Work Phone: 03-06-2022 14:50-0400 SaO2% (BldA) [Mass fraction] 98 % Dr. Milind Lamb Work Phone: [facility] Work Phone: 03-06-2022 14:50-0400 Systolic blood pressure 131 mm[Hg] Dr. Milind Lamb Work Phone: [facility] Work Phone: 03-06-2022 09:27-0400 Body height 160.[address] Milind Lamb Work Phone: [facility] Work Phone: 03-06-2022 09:27-0400 Body weight 57.[address] Milind Lamb Work Phone: [facility] Work Phone: 03-03-2022 20:17-0400 Body mass index (BMI) [Ratio] 20.8 kg/m2 Dr. Milind Lamb Work Phone: [facility] Work Phone: Encounters Encounter Date Encounter Type Care Provider Facility Start: 10-18-2024 End: 10-18-[address] Milind Lamb MD Work Phone: [facility] Work Phone: Start: 10-18-2024 End: 10-18-[address] Milind Lamb MD -Laboratory, [facility] Start: 10-18-2024 End: 10-18-2024 ambulatory Milind Lamb Facility:[facility] Start: 07-20-2024 End: 07-20-[address] Milind Lamb MD -Laboratory, [facility] Start: 07-20-2024 End: 07-20-2024 ambulatory Milind Lamb Facility:[facility] Start: 07-16-2024 End: 07-16-2024 Patient encounter procedure Nasir [facility] Work Phone: Start: 07-16-2024 End: 07-16-2024 ambulatory Nasir LIRA Facility:[facility] Start: 05-02-2024 ambulatory Ciro diaz Darrell Facili ty:[facility] Start: 05-02-2024 End: 05-04-2024 Evaluation and management of inpatient Ciro joe Darrell Facility:[facility] Start: 03-01-2024 ambulatory Harry Medrano Fac ility:[facility] Start: 03-01-2024 End: 03-05-2024 Evaluation and management of inpatient Harry Medrano Facility:[facility] Start: 07-29-2023 End: 07-29-2023 Emergency department patient visit Dr. Milind Lamb Work Phone: [facility] Work Phone: Start: 07-18-2023 End: 08-11-[address] Milind Lamb Work Phone: [facility] Work Phone: Start: 07-18-2023 End: 08-11-[address] Milind Lamb Work Phone: [facility] Work Phone: Start: 07-18-[address] Milind Lamb Work Phone: [facility] Work Phone: Start: 07-06-2023 Non-patient / Non-visit Dr. Milind Lamb Work Phone: [facility] Work Phone: Start: 07-05-2023 Non-patient / Non-visit Dr. Milind Lamb Work Phone: [facility] Work Phone: Start: 07-04-2023 Non-patient / Non-visit Dr. Milind Lamb Work Phone: [facility] Work Phone: Start: 07-03-2023 Non-patient / Non-visit Dr. Milind Lamb Work Phone: [facility] Work Phone: Start: 07-02-2023 End: 07-06-2023 Evaluation and management of inpatient [facility] Work Phone: Start: 07-02-2023 Non-patient / Non-visit Dr. Milind Lamb Work Phone: [facility] Work Phone: Start: 07-02-2023 End: 07-02-2023 Emergency department patient visit [facility] Work Phone: Start: 06-30-2023 End: 07-01-2023 Emergency department patient visit [facility] Work Phone: Start: 05-21-2023 End: 05-21-[address] [facility] Work Phone: Start: 05-21-2023 End: 05-21-2023 Patient encounter procedure [facility] Start: 07-28-2022 Non-patient / Non-visit Dr. Milind Lamb Work Phone: [facility] Start: 07-27-2022 Non-patient / Non-visit Dr. Milind Lamb Work Phone: [facility] Start: 07-26-2022 Non-patient / Non-visit Dr. Milind Lamb Work Phone: [facility] Start: 07-26-2022 End: 07-28-2022 Evaluation and management of inpatient Dr. Milind Lamb Work Phone: [facility] Start: 05-03-2022 End: 05-03-2022 Emergency department patient visit Dr. Milind Lamb Work Phone: [facility] Start: 04-11-2022 End: 04-11-[address] Milind Lamb Work Phone: [facility] Work Phone: Start: 04-11-2022 End: 04-11-[address] Milind Lamb Work Phone: [facility] Start: 03-08-2022 End: 03-08-[address] Milind Lamb Work Phone: [facility] Work Phone: Start: 03-08-2022 End: 03-08-[address] Milind Lamb Work Phone: [facility] Start: 03-08-[address] Milind Lamb Work Phone: [facility] Start: 03-06-2022 Non-patient / Non-visit Dr. Milind Lamb Work Phone: [facility] Start: 03-06-2022 Non-patient / Non-visit Dr. Milind Lamb Work Phone: [facility] Start: 03-05-2022 Non-patient / Non-visit Dr. Milind Lamb Work Phone: [facility] Start: 03-05-2022 Non-patient / Non-visit Dr. Milind Lamb Work Phone: [facility] Start: 03-04-2022 Non-patient / Non-visit Dr. Milind Lamb Work Phone: [facility] Start: 03-03-2022 End: 03-06-2022 Evaluation and management of inpatient Dr. Milind Lamb Work Phone: [facility] Start: 07-22-2018 End: 07-23-2018 Patient encounter procedure [facility] Facility:[facility] Procedures Date Procedure Procedure Detail Performing Clinician Start: 07-02-[address] Milind Lamb Work Phone: Start: 06-30-2023 X-ray of lumbar spin e, two or three views Start: 03-03-2022 X-ray of lumbar spin e, two or three views Dr. Milind Lamb Work Phone: Respiratory syncytia l virus antigen assay Dr. Milind Lamb Work Phone: Respiratory syncytia l virus antigen assay Dr. Milind Lamb Work Phone: SARS-CoV-2 & FLU Ant igen (Rapid) Dr. Milind Lamb Work Phone: Viral antigen assay Dr. Milind Lamb Work Phone: Viral antigen assay Dr. Milind Lamb Work Phone: Plan of Treatment Date Care Activity Detail Author Start: 07-29-2023 [facility] Start: 07-06-2023 Patient discharge [facility] Start: 07-03-[address] [facility] Start: 07-03-[address] [facility] Start: 07-03-2023 [facility] Start: 07-03-2023 [facility] Start: 07-03-2023 End: 07-03-[address] [facility] Start: 07-03-2023 Complete blood count [facility] Start: 07-02-[address] [facility] Start: 07-02-[address] [facility] Start: 07-02-2023 Assessment of risk o f venous thromboembolism [facility] Start: 07-02-[address] [facility] Start: 07-02-2023 End: 07-02-2023 Following clinical pathway protocol [facility] Start: 07-02-2023 Incentive spirometry [facility] Start: 07-02-2023 Insertion of cathete r into peripheral vein [facility] Start: 07-02-[address] [facility] Start: 07-02-2023 Me[address]uring intake and output [facility] Start: 07-02-[address] [facility] Start: 07-02-[address] [facility] Start: 07-02-2023 Patient education [facility] Start: 07-02-2023 Patient referral to dietitian [facility] Start: 07-02-2023 Providing care accor ding to standard [facility] Start: 07-02-2023 Referral to occupati onal therapist [facility] Start: 07-02-2023 Referral to service [facility] Start: 07-02-[address] [facility] Start: 07-02-2023 [facility] Start: 07-02-2023 Verification routine [facility] Start: 07-02-2023 Admission procedure [facility] Start: 07-02-2023 End: 07-02-[address] [facility] Start: 07-02-2023 [facility] Start: 07-02-2023 Bacteria identified in Urine by Culture Urine Culture [facility] Start: 07-02-2023 [facility] Start: 07-01-2023 [facility] Start: 07-28-2022 Patient discharge [facility] Start: 07-27-[address] [facility] Start: 07-27-[address] [facility] Start: 07-27-2022 [facility] Start: 07-26-2022 Assessment of risk o f venous thromboembolism [facility] Start: 07-26-2022 End: 07-26-2022 Following clinical pathway protocol [facility] Start: 07-26-2022 Insertion of cathete r into peripheral vein [facility] Start: 07-26-[address] [facility] Start: 07-26-2022 Measuring intake and output [facility] Start: 07-26-[address] [facility] Start: 07-26-2022 Patient education [facility] Start: 07-26-2022 Patient referral to dietitian [facility] Start: 07-26-2022 Providing care accor ding to standard [facility] Start: 07-26-[address] [facility] Start: 07-26-2022 End: 07-26-2022 [facility] Start: 07-26-2022 Verification routine [facility] Start: 07-26-2022 Admission procedure [facility] Start: 07-26-[address] [facility] Start: 07-26-2022 [facility] Start: 07-26-2022 Patient referral to dietitian [facility] Start: 05-03-2022 [facility] Start: 03-06-2022 Patient discharge [facility] Work Phone: Start: 03-05-2022 Referral to occupati onal therapist [facility] Work Phone: Start: 03-05-2022 Referral to service [facility] Work Phone: Start: 03-04-[address] [facility] Work Phone: Start: 03-04-[address] [facility] Work Phone: Start: 03-04-2022 [facility] Work Phone: Start: 03-04-2022 Consultation [facility] Work Phone: Start: 03-03-2022 End: 03-04-2022 [facility] Work Phone: Start: 03-03-2022 Application of inter mittent pneumatic compression device [facility] Work Phone: Start: 03-03-[address] [facility] Work Phone: Start: 03-03-2022 Assessment of risk o f venous thromboembolism [facility] Work Phone: Start: 03-03-[address] [facility] Work Phone: Start: 03-03-2022 Elevation of head of bed [facility] Work Phone: Start: 03-03-[address] [facility] Work Phone: Start: 03-03-2022 End: 03-03-2022 Following clinical pathway protocol [facility] Work Phone: Start: 03-03-2022 Incentive spirometry [facility] Work Phone: Start: 03-03-[address] [facility] Work Phone: Start: 03-03-2022 Insertion of cathete r into peripheral vein [facility] Work Phone: Start: 03-03-2022 Introduction of urin cristy catheter [facility] Work Phone: Start: 03-03-[address] [facility] Work Phone: Start: 03-03-2022 Measuring intake and output [facility] Work Phone: Start: 03-03-[address] [facility] Work Phone: Start: 03-03-[address] [facility] Work Phone: Start: 03-03-2022 Patient education [facility] Work Phone: Start: 03-03-2022 Patient referral to dietitian [facility] Work Phone: Start: 03-03-2022 Providing care accor ding to standard [facility] Work Phone: Start: 03-03-2022 Provision of activit y privileges [facility] Work Phone: Start: 03-03-2022 Referral to service [facility] Work Phone: Start: 03-03-[address] [facility] Work Phone: Start: 03-03-2022 Admission procedure [facility] Work Phone: Start: 03-03-2022 [facility] Work Phone: Anion gap measurement [facility] Anion gap measurement [facility] Anion gap measurement [facility] Anion gap measurement [facility] Bilirubin measurement, urine [facility] BUN/Creatinine ratio [facility] BUN/Creatinine ratio [facility] BUN/Creatinine ratio [facility] BUN/Creatinine ratio [facility] Calcium [Mass/volume ] in Serum or Plasma [facility] Calcium [Mass/volume ] in Serum or Plasma [facility] Calcium [Mass/volume ] in Serum or Plasma [facility] Calcium [Mass/volume ] in Serum or Plasma [facility] Carbon dioxide, tota l [Moles/volume] in Serum or Plasma [facility] Carbon dioxide, tota l [Moles/volume] in Serum or Plasma [facility] Carbon dioxide, tota l [Moles/volume] in Serum or Plasma [facility] Carbon dioxide, tota l [Moles/volume] in Serum or Plasma [facility] Chloride [Moles/volu me] in Serum or Plasma [facility] Chloride [Moles/volu me] in Serum or Plasma [facility] Chloride [Moles/volu me] in Serum or Plasma [facility] Chloride [Moles/volu me] in Serum or Plasma [facility] Creatinine [Moles/vo lume] in Serum or Plasma [facility] Creatinine [Moles/vo lume] in Serum or Plasma [facility] Creatinine [Moles/vo lume] in Serum or Plasma [facility] Creatinine [Moles/vo lume] in Serum or Plasma [facility] Glucose [Mass/volume ] in Serum or Plasma [facility] Glucose [Mass/volume ] in Serum or Plasma [facility] Glucose [Mass/volume ] in Serum or Plasma [facility] Glucose [Mass/volume ] in Serum or Plasma [facility] Hematocrit [Volume F raction] of Blood [facility] Hemoglobin [Mass/vol ume] in Blood [facility] Hemoglobin [Presence] in Urine [facility] Hemoglobin A1c/Hemoglobin.total in Blood [facility] Leukocytes [#/volume] in Blood [facility] Mean corpuscular hem oglobin concentration determination [facility] Mean corpuscular hem oglobin determination [facility] Measurement of keton es in urine using dipstick [facility] Measurement of renal function [facility] Measurement of renal function [facility] Measurement of renal function [facility] Measurement of renal function [facility] Microscopic urinalysis [facility] Patient Education [facility] Work Phone: Patient referral [facility] Work Phone: pH of Urine [facility] Platelets [#/volume] in Blood [facility] Potassium [Moles/vol ume] in Serum or Plasma [facility] Potassium [Moles/vol ume] in Serum or Plasma [facility] Potassium [Moles/vol ume] in Serum or Plasma [facility] Potassium [Moles/vol ume] in Serum or Plasma [facility] Red blood cell count [facility] Red cell distributio n width determination [facility] Sodium [Moles/volume ] in Serum or Plasma [facility] Sodium [Moles/volume ] in Serum or Plasma [facility] Sodium [Moles/volume ] in Serum or Plasma [facility] Sodium [Moles/volume ] in Serum or Plasma [facility] Specific gravity of Urine [facility] Urea nitrogen [Mass/ volume] in Serum or Plasma [facility] Urea nitrogen [Mass/ volume] in Serum or Plasma [facility] Urea nitrogen [Mass/ volume] in Serum or Plasma [facility] Urea nitrogen [Mass/ volume] in Serum or Plasma [facility] Urinalysis, blood, qualitative [facility] Urine dipstick for glucose [facility] Urine dipstick for l eukocyte esterase [facility] Urine dipstick for nitrite [facility] Urine dipstick for protein [facility] Urine examination [facility] Urine microscopy: ep ithelial cells [facility] Urine Microscopy: white cells [facility] Urobilinogen [Presen ce] in Urine [facility] Payers Date Payer Category Payer Unknown [id number] 2024 Self-pay [id number] 2018 Unknown [id number] 1960 Unknown [id number] [id number] Unknown ANTHEM [id number] Unknown [facility] [id number] Unknown [id number] 2.16.8 [id number] Unknown [id number] 2.16.8 [id number] Unknown [id number] 2.16.8 [id number] Unknown [id number] 2.16.8 [id number] Unknown [id number] 2.16.8 [id number] Unknown [id number] 2.16.8 [id number] Unknown [id number] 2.16.8 [id number] Unknown [id number] 2.16.8 [id number] Unknown [id number] 2.16.8 [id number] Unknown [id number] 2.16.8 [id number] Unknown [id number] 2.16.8 [id number] Unknown [id number] 2.16.8 [id number] Unknown [id number] 2.16.8 [id number] Social History Date Type Detail Facility Start: 03-03-2022 End: 07-29-2023 Tobacco smoking status NHIS Unknown if ever smoked [facility] Start: 1960 Sex Assigned At Female [facility] Start: 05-03-2024 Tobacco smoking stat us NHIS Ex-smoker (finding) [facility] Start: 10-22-2024 Sex Female (finding) [facility] Medical Equipment Procedure Code Equipment Code Equipment Origin al Text Equipment Identifier Dates Pen Needle, Diab etic (Bd Ultra-Fine Josefina Pen Needle) 32 gauge x 5/32 needle Start: 04-11-2022 Pen Needle, Diab etic (Bd Ultra-Fine Josefina Pen Needle) 32 gauge x 5/32 needle Start: 04-11-2022 Pen Needle, Diab etic (Bd Ultra-Fine Josefina Pen Needle) 32 gauge x 5/32 needle Start: 04-11-2022 Pen Needle, Diab etic (Bd Ultra-Fine Josefina Pen Needle) 32 gauge x 5/32 needle Start: 04-11-2022 Blood Sugar Diagnostic (Freestyle Test) strip Start: 07-28-2022 Lancets (Freesty le Lancets) 28 gauge misc Start: 07-28-2022 Pen Needle, Diab etic (Bd Ultra-Fine Josefina Pen Needle) 32 gauge x 5/32 needle Start: 07-28-2022 Pen Needle, Diab etic (Bd Ultra-Fine Josefina Pen Needle) 32 gauge x 5/32 needle Start: 04-11-2022 End: 07-28-2022 Blood Sugar Diagnostic (Freestyle Lite Strips) strip Start: 07-28-2022 Blood Sugar Diagnostic (Freestyle Test) strip Start: 07-28-2022 Lancets (Freesty le Lancets) 28 gauge misc Start: 07-28-2022 Pen Needle, Diab etic (Bd Ultra-Fine Josefina Pen Needle) 32 gauge x 5/32 needle Start: 07-28-2022 Pen Needle, Diab etic (Bd Ultra-Fine Josefina Pen Needle) 32 gauge x 5/32 needle Start: 04-11-2022 End: 07-28-2022 Blood Sugar Diagnostic (Freestyle Lite Strips) strip Start: 07-28-2022 Blood Sugar Diagnostic (Freestyle Test) strip Start: 07-28-2022 Lancets (Freesty le Lancets) 28 gauge misc Start: 07-28-2022 Pen Needle, Diab etic (Bd Ultra-Fine Josefina Pen Needle) 32 gauge x 5/32 needle Start: 07-28-2022 Pen Needle, Diab etic (Bd Ultra-Fine Josefnia Pen Needle) 32 gauge x 5/32 needle Start: 04-11-2022 End: 07-28-2022 Blood Sugar Diagnostic (Freestyle Lite Strips) strip Start: 07-28-2022 Blood Sugar Diagnostic (Freestyle Test) strip Start: 07-28-2022 Lancets (Freesty le Lancets) 28 gauge misc Start: 07-28-2022 Pen Needle, Diab etic (Bd Ultra-Fine Josefina Pen Needle) 32 gauge x 5/32 needle Start: 07-28-2022 Pen Needle, Diab etic (Bd Ultra-Fine Josefina Pen Needle) 32 gauge x 5/32 needle Start: 04-11-2022 End: 07-28-2022 Blood Sugar Diagnostic (Freestyle Lite Strips) strip Start: 07-28-2022 Blood Sugar Diagnostic (Freestyle Test) strip Start: 07-28-2022 Lancets (Freesty le Lancets) 28 gauge misc Start: 07-28-2022 Pen Needle, Diab etic (Bd Ultra-Fine Josefina Pen Needle) 32 gauge x 5/32 needle Start: 07-28-2022 Pen Needle, Diab etic (Bd Ultra-Fine Josefina Pen Needle) 32 gauge x 5/32 needle Start: 04-11-2022 End: 07-28-2022 Blood Sugar Diagnostic (Freestyle Lite Strips) strip Start: 07-28-2022 Blood Sugar Diagnostic (Freestyle Test) strip Start: 07-28-2022 Lancets (Freesty le Lancets) 28 gauge misc Start: 07-28-2022 Pen Needle, Diab etic (Bd Ultra-Fine Josefina Pen Needle) 32 gauge x 5/32 needle Start: 07-28-2022 Pen Needle, Diab etic (Bd Ultra-Fine Josefina Pen Needle) 32 gauge x 5/32 needle Start: 04-11-2022 End: 07-28-2022 Blood Sugar Diagnostic (Freestyle Lite Strips) strip Start: 07-28-2022 Blood Sugar Diagnostic (Freestyle Test) strip Start: 07-28-2022 Lancets (Freesty le Lancets) 28 gauge misc Start: 07-28-2022 Lancets (Freesty le Lancets) 28 gauge misc Start: 07-06-2023 Pen Needle, Diab etic (Bd Ultra-Fine Josefina Pen Needle) 32 gauge x 5/32 needle Start: 07-28-2022 Pen Needle, Diab etic (Bd Ultra-Fine Josefina Pen Needle) 32 gauge x 5/32 needle Start: 04-11-2022 End: 07-28-2022 Blood Sugar Diagnostic (Freestyle Lite Strips) strip Start: 07-28-2022 Blood Sugar Diagnostic (Freestyle Test) strip Start: 07-28-2022 Lancets (Freesty le Lancets) 28 gauge misc Start: 07-28-2022 Lancets (Freesty le Lancets) 28 gauge misc Start: 07-06-2023 Pen Needle, Diab etic (Bd Ultra-Fine Josefina Pen Needle) 32 gauge x 5/32 needle Start: 07-28-2022 Pen Needle, Diab etic (Bd Ultra-Fine Josefina Pen Needle) 32 gauge x 5/32 needle Start: 04-11-2022 End: 07-28-2022 Blood Sugar Diagnostic (Freestyle Lite Strips) strip Start: 05-04-2024 Lancets (Freesty le Lancets) 28 gauge misc Start: 07-28-2022 Lancets (Freesty le Lancets) 28 gauge misc Start: 07-06-2023 Pen Needle, Diab etic (Bd Ultra-Fine Josefina Pen Needle) 32 gauge x 5/32 needle Start: 07-28-2022 Blood Sugar Diagnostic (Freestyle Lite Strips) strip Start: 07-28-2022 End: 05-04-2024 Blood Sugar Diagnostic (Freestyle Test) strip Start: 07-28-2022 End: 05-03-2024 Pen Needle, Diab etic (Bd Ultra-Fine Josefina Pen Needle) 32 gauge x 5/32 needle Start: 04-11-2022 End: 07-28-2022 Goals Date Patient Goal Desired Activity /State Functional Status Date Assessment Result Facility 07-06-2023 Functional status Ambulates [facility] Work Phone: 07-28-2022 Functional status Ambulates [facility] Work Phone: 03-06-2022 Functional status Chair [facility] Work Phone: Mental Status Date Assessment Result Facility 07-29-2023 Cognitive function Level Of Cons ciousness Awake;Alert;Appropriate;Follow s Commands [facility] Work Phone: 07-06-2023 Cognitive function Voice/Name [facility] Work Phone: 07-28-2022 Cognitive function Voice/Name [facility] Work Phone: 05-03-2022 Cognitive function Level Of Cons ciousness Awake;Alert;Appropriate;Follow s Commands [facility] Work Phone: 03-06-2022 Cognitive function Voice/Name [facility] Work Phone: Clinical Notes 05-03-2022 to 05-04-2024 Note Date & Type Note Facility 05-04-2024 Note [facility] 03-05-2024 Note [facility] 07-29-2023 Discharge summary Note Date/Time July 29, 2023 2:09pm [facility] Medical Records Department [address] [place] [address] Emergency Department Summary 07/29/23 MR#: [id number] Acct: [id number] Name: ROBERT BRUCE Rep #:[id number] : 1960 63 From: Reece Smith MD PCP: Dr. Milind Lamb MD Status:REG E R Location: ED HPI History of Present Illness Chief Complaint: Hyperglycemia Informant: patient and family (son) Narrative Narrative: Patient states she has had trouble controlling her blood sugars. She states several months ago she was admitted to the hospital in DKA. She at one point had Jardiance changed to Toujeo, she had the dose changed to couple times, and she thinks all of that preceded that but she has had changes since then. The last one was a month or 2 ago. She is on Humalog. In the past 2 weeks she has had a diet change, trying to manage her sugars better, she has had a nurse come to the house twice to help her with this, the last time was yesterday and she felt fine. She woke up this morning feeling very shaky and Poorly, lightheaded,fell like her blood sugar was low, her son tried to get her some oral juice, reji was too lethargic to drink and so EMS was called, her blood sugar was in the30s they gave her some IV glucose, brought up to the 170s and she was feeling better the so they left. Later in the day she is feeling very poorly like her blood sugar was high, was around 400 so EMS transported her [facility]. She is feeling a little better now, but feels like things are far away and I am trying to bring them closer like she is still off a little. She denies any recent illness. She denies any chest discomfort, dyspnea, nausea, vomiting, diarrhea or any other focal symptoms. When her blood sugar was low she was having trouble speaking but that resolved when her blood sugar came up. PFSH PFSH Medical History Anxiety and depression Back pain COVID-19 Diabetes Diabetes mellitus, type 2 Diabetic ketoacidosis associated with type 1 diabetes mellitus ETOH abuse GERD (gastroesophageal reflux disease) History of alcoholism HTN (hypertension) Hypokalemia Pyuria Tobacco use Home Medications flash glucose sensor (FreeStyle Moncho 2 Sensor kit) #2 ea 04/11/22 [Rx Last Taken Unknown] naproxen 500 mg tablet 500 mg PO DAILY PRN Pain 07/26/22 [History Last Taken 07/22/22] sertraline 100 mg tablet 100 mg PO DAILY depression 07/26/22 [History Last Taken 07/25/22] blood sugar diagnostic (FreeStyle Lite Strips) #100 ea 07/28/22 [Rx Last Taken Unknown] blood sugar diagnostic (FreeStyle Test strips) #100 ea 07/28/22 [Rx Last Taken Unknown] blood-glucose meter (FreeStyle Lite Meter kit) #1 ea 07/28/22 [Rx Last Taken Unknown] lancets 28 gauge (FreeStyle Lancets) #100 ea 07/28/22 [Rx Last Taken Unknown] pen needle, diabetic 32 gauge x 5/32 (BD Ultra-Fine Josefina Pen Needle) #50 ea 07/28/22 [Rx Last Taken Unknown] diazepam 2 mg tablet 2 mg PO TID PRN PRN back pain #10 TABLETS 07/01/23 [Rx Last Taken Unknown] insulin lispro 100 unit/mL subcutaneous pen (Humalog KwikPen (U-100) Insulin) 6 unit (0.06 mL) subcut TID #15 mL 07/05/23 [Rx Last Taken Unknown] insulin lispro 100 unit/mL subcutaneous pen (Humalog KwikPen (U-100) Insulin) 6 unit (0.06 mL) subcut TIDAC #15 mL 07/05/23 [Rx Last Taken Unknown] lisinopril 2.5 mg tablet 2.5 mg PO DAILY blood pressurre #30 tabs 07/05/23 [Rx Last Taken 07/25/22] metformin 1,000 mg tablet 1,000 mg PO BID #60 tabs 07/05/23 [Rx Last Taken Unknown] insulin glargine U-300 conc 300 unit/mL (3 mL) subcutaneous pen (Toujeo Max U-300 SoloStar) 30 unit (0.1 mL) subcut DAILY #6 mL 07/06/23 [Rx Last Taken Unknown] lancets 28 gauge (FreeStyle Lancets) #100 ea 07/06/23 [Rx Last Taken Unknown] Allergy/AdvReac Type Severity Reaction Status Date / Time No Known Allergies Allergy Verified 07/29/23 12:34 Family History Mother Diabetes Father Diabetes Cancer Hx mesothelioma. Surgical History No history of previous surgery Social History household members: other details: Lives with her son. Her son is also an alcoholic. Smoking Status: Former smoker alcohol intake: current alcohol intake frequency: 3 or more drinks per day details: Reports at least 4 beers daily, not forthcoming with use details. substance use type: does not use ROS ROS ED Constitutional Constitutional ED: Reports chills, sweats and other Details: Feeling cold, but hot and sweaty when the blood sugar is low ; Denies fever(s) Eyes Eyes: Denies change in vision or diplopia ENT ENT ED: Denies rhinorrhea or sore throat Cardiovascular Cardiovascular: Denies chest pain or palpitations Respiratory/Chest Respiratory/Chest: Denies cough or dyspnea Gastrointestinal Gastrointestinal: Denies abdominal pain, diarrhea, nausea or vomiting Genitourinary Genitourinary ED: Denies dysuria or hematuria Musculoskeletal Musculoskeletal: Denies back pain or neck pain Integumentary Denies abscess or rash Neurologic Neurologic: Denies headache(s), paresthesias or weakness Psychiatric Psychiatric: Reports anxiety; Denies suicidal ideation or suicidal thoughts EXAM Physical Exam Const Vital Signs: 07/29/23 12:34 07/29/23 15:19 Temperature 95.9 F L Temperature Source Temporal Pulse Rate 95 93 Respiratory Rate 22 H 16 Blood Pressure 153/94 H 154/87 H Blood Pressure Mean 113 109 Pulse Ox 100 98 Oxygen Delivery Method Room Air Room Air Positive well nourished and well developed General Appearance ED: well developed and NAD HEENT Reports moist mucous membranes normocephalic and atraumatic Eyes PERRL and EOMs intact bilaterally Neck full ROM and supple Resp normal respiratory effort and clear to auscultation bilaterally Cardio regular rate, regular rhythm and no murmurs GI non-tender and non-distended Auscultation: normoactive bowel sounds Palpation: soft Back/Spine no CVA tenderness General Back: other FROM Extremity normal to inspection General Extremety ED: Negative for edema, pulses abnormal or tenderness General Extremity: Negative for edema or pulses abnormal Neuro oriented x3, CN's II-XII intact bilaterally and no sensory deficits noted Neuro Narrative: Normal speech. No dysarthria or aphasia. Nonfocal neurologic exam. Sensorium / Orientation: awake and alert Motor Exam: strength 5/5 throughout Psych mental status grossly normal Skin no rashes or lesions noted and no wounds MDM MDM MDM Narrative Medical decision making narrative: Labs here are unremarkable, suggesting nothing acute with regards to infection, cardiac etiologies, major electrolyte disorder or dehydration. Anion gap is normal, bicarb is normal, therefore ruling out DKA. She was given a liter of fluids we checked her blood sugar multiple times, initially 127 then 106, she was given sandwich to eat and we checked it subsequently . Blood pressure hascome down from where it was elevated, she feels better clinically, discussed with her PCP and stable for discharge home. Patient asking for a work note for tomorrow. PCP states alcohol has been an issue for her as has emotional distress due to financial issues. Her son is here to take her home. Lab Data Attestation: I reviewed the patient's lab results. Labs: Laboratory Results - last 24 hr 07/29/23 07/29/23 07/29/23 13:13 13:15 14:45 WBC 6.2 RBC 3.81 L Hgb 11.4 L Hct 36.1 L MCV 94.8 MCH 29.9 MCHC 31.6 L RDW Std Deviation 50.0 H RDW Coeff of Nellie 14.5 Plt Count 295 MPV 12.1 H Immature Gran % (Auto) 0.500 Neut % (Auto) 72.9 H Lymph % (Auto) 19.3 [place] % (Auto) 5.7 Eos % (Auto) 1.1 Baso % (Auto) 0.5 Absolute Neuts (auto) 4.5 Absolute Lymphs (auto) 1.19 Nucleated RBC % 0 Sodium 141 Potassium 4.0 Chloride 108 H Carbon Dioxide 27.0 Anion Gap 6 BUN 18 Creatinine 0.64 Estim Creat Clear Calc 76.36 Est GFR (MDRD) Af Amer 121 Est GFR (MDRD) Non-Af 100 BUN/Creatinine Ratio 28.0 H Glucose 127 H Calcium 9.8 Troponin I High Sens 10 Urine Color Yellow Urine Clarity Clear Urine pH 6.0 Ur Specific [place] 1.020 Urine Protein Negative Urine Glucose (UA) Normal Urine Ketones 50 H Urine Occult Blood Negative Urine Nitrite Negative Urine Bilirubin Negative Urine Urobilinogen Normal Ur Leukocyte Esterase 25 H Urine RBC 0 SEEN Urine WBC 0-5 SEEN Ur Squamous Epith Cells 0 SEEN Urine Bacteria 0 SEEN Urine Mucus 0 SEEN POC Glucose 127 H 07/29/23 15:25 WBC RBC Hgb Hct MCV MCH MCHC RDW Std Deviation RDW Coeff of Nellie Plt Count MPV Immature Gran % (Auto) Neut % (Auto) Lymph % (Auto) [place] % (Auto) Eos % (Auto) Baso % (Auto) Absolute Neuts (auto) Absolute Lymphs (auto) Nucleated RBC % Sodium Potassium Chloride Carbon Dioxide Anion Gap BUN Creatinine Estim Creat Clear Calc Est GFR (MDRD) Af Amer Est GFR (MDRD) Non-Af BUN/Creatinine Ratio Glucose Calcium Troponin I High Sens Urine Color Urine Clarity Urine pH Ur Specific [place] Urine Protein Urine Glucose (UA) Urine Ketones Urine Occult Blood Urine Nitrite Urine Bilirubin Urine Urobilinogen Ur Leukocyte Esterase Urine RBC Urine WBC Ur Squamous Epith Cells Urine Bacteria Urine Mucus POC Glucose 106 Rhythm Strip Rhythm Strip: Sinus Rhythm Rate: 96 Ectopy: None EKG Initial EKG: Attestation: I personally reviewed and interpreted this EKG as follows: Interpretation: Sinus Rhythm and No Acute Injury Pattern Prior EKG tracings: available for review Prior: Unchanged Management Discussion w/another healthcare provider: PCP (Dr. Lamb - Keep insulin doses same for now & f/u) Discharge Plan Triage Chief Complaint: Hyperglycemia Other Complaint: Weakness ED Provider: Reece Smith Dx/Rx/DC Orders Clinical Impression: Hyperglycemia due to type 1 diabetes mellitus, Type I diabetes mellitus with hypoglycemia Instructions: ED Diabetic Hyperglycemia Prescriptions: No Action (DME) FreeStyle Moncho 2 Sensor Kit See Rx Instructions .Route Qty: 2 5RF Rx Instructions: As directed sertraline 100 mg tablet 100 mg PO DAILY naproxen 500 mg tablet 500 mg PO DAILY PRN (Reason: Pain) (DME) lancets [FreeStyle Lancets] 28 gauge misc See Rx Instructions .Route Qty: 100 0RF Rx Instructions: As directed (DME) FreeStyle Test Strip See Rx Instructions .Route Qty: 100 0RF Rx Instructions: As directed (DME) pen needle, diabetic [BD Ultra-Fine Josefina Pen Needle] 32 gauge x 5/32 needle See Rx Instructions .ROUTE .MEDSUPPLY Qty: 50 5RF Rx Instructions: daily (DME) blood-glucose meter [FreeStyle Lite Meter] Kit See Rx Instructions .Route Qty: 1 0RF Rx Instructions: As directed (DME) FreeStyle Lite Strips Strip See Rx Instructions .Route Qty: 100 0RF Rx Instructions: As directed metformin 1,000 mg tablet 1,000 mg PO BID Qty: 60 2RF lisinopril 2.5 mg tablet 2.5 mg PO DAILY Qty: 30 2RF insulin lispro [Humalog KwikPen Insulin] 100 unit/mL Insulin Pen 6 unit subcut TIDAC Qty: 15 2RF insulin lispro [Humalog KwikPen Insulin] 100 unit/mL insulin pen 6 unit subcut TID Qty: 15 2RF (DME) lancets [FreeStyle Lancets] 28 gauge misc See Rx Instructions .Route Qty: 100 0RF Rx Instructions: As directed Toujeo Max U-300 SoloStar 300 unit/mL (3 mL) insulin pen 30 unit subcut DAILY Qty: 6 2RF diazepam 2 mg tablet 2 mg PO TID PRN PRN (Reason: back pain) Qty: 10 0RF Stand Alone Forms: ED Work / School Excuse Primary Care Provider: Milind Lamb Referrals: Milind Lamb MD [Primary Care Provider] - (call for follow up appt) Disposition Disposition: Home, Self Care What to do if you have Problems For any increased pain, shortness of breath, bleeding, nausea or vomiting, chestpain, or any unexpected problems, contact your Primary Care Provider. Call [facility] ([phone]) or report to the closest Emergency Room. Call 911 if necessary. 07/29/231621 <Electronically signed by Reece Smith MD> Cosigner Signature (if applicable): CC: Dr. Milind Lamb MD ~ Signed [facility] Work Phone: [phone] 162-272812-27-2023 Discharge summary Author Steven [facility] July 02, 2023 8:59pm Note Date/Time July 02, 2023 7:16pm [facility] Medical Records Department [address] [place] [address] Emergency Department Summary 07/02/23 MR#: [id number] Acct: [id number] Name: ROBERT BRUCE Rep #:[id number] : 1960 63 From: Steven Voss MD PCP: Dr. Milind Lamb MD Status:REG E R Location: ED HPI History of Present Illness Chief Complaint: Back Detail of Chief Complaint: Low back pain, poor p.o. intake, not feeling well Informant: patient Onset/Context/Timing Onset: Days (Patient was seen on June 30 for back pain. She was seen earlier today for epistaxis) Context: Sudden Onset Timing: Continuous Quality: Piercing Location: Posterior left pelvic region Current Severity: Severe Maximum Severity: Severe Worsened by: Uncertain Relieved by: Nothing Associated Symptoms Associated Symptoms: None Narrative Narrative: Patient was seen on June 30 for back pain. She was treated with opiate analgesia and Valium. She had a blood sugar of greater than 400 that time. No other blood work was done. She states she is taking the medicine she was prescribed which was diazepam 2 mg 3 times daily and hydrocodone with acetaminophenevery 6 hours for pain for 3 days. She states this is not helping. She denies radicular pain. Denies bowel bladder dysfunction. She proclaim she is in serious pain however she is groggy and her pupils are pinpoint. Patient was seen earlier today for epistaxis. No blood work was obtained at that time. She denies headache, visual, ocular auditory symptoms. She denies sore throat. She does endorse slight nasal congestion. Denies rhinorrhea postnasal drainage sore throat. She denies cough or sputum production. Denies dyspnea [place] exertion. She denies abdominal pain, nausea, vomiting or diarrhea. Denies constipation. She denies dysuria, frequency, urgency or hematuria. She denies weakness in herlegs. She states it hurts. She reports pain anterior right and left thigh. She does not have symptoms of claudication. She does endorse history of type 1 diabetes. Prior similar symptoms: Yes Recent Illness/Hospitalization: Yes PFSH PFSH Medical History Anxiety and depression COVID-19 Diabetes Diabetes mellitus, type 2 ETOH abuse GERD (gastroesophageal reflux disease) History of alcoholism HTN (hypertension) Hypokalemia Tobacco use Home Medications lisinopril 2.5 mg tablet 2.5 mg PO DAILY blood pressurre 07/14/19 [History Last Taken 07/25/22] flash glucose sensor (FreeStyle Moncho 2 Sensor kit) #2 ea 04/11/22 [Rx Last Taken Unknown] naproxen 500 mg tablet 500 mg PO DAILY PRN Pain 07/26/22 [History Last Taken 07/22/22] sertraline 100 mg tablet 100 mg PO DAILY depression 07/26/22 [History Last Taken 07/25/22] blood sugar diagnostic (FreeStyle Lite Strips) #100 ea 07/28/22 [Rx Last Taken Unknown] blood sugar diagnostic (FreeStyle Test strips) #100 ea 07/28/22 [Rx Last Taken Unknown] blood-glucose meter (FreeStyle Lite Meter kit) #1 ea 07/28/22 [Rx Last Taken Unknown] insulin glargine U-300 conc 300 unit/mL (3 mL) subcutaneous pen (Toujeo Max U- 300 SoloStar) 20 unit (0.0667 mL) subcut BID diabetes #6 mL 07/28/22 [Rx Last Taken 07/25/22] insulin lispro 100 unit/mL subcutaneous pen (Humalog KwikPen (U-100) Insulin) 6 unit (0.06 mL) subcut TIDAC #15 mL 07/28/22 [Rx Last Taken Unknown] lancets 28 gauge (FreeStyle Lancets) #100 ea 07/28/22 [Rx Last Taken Unknown] pen needle, diabetic 32 gauge x 5/32 (BD Ultra-Fine Josefina Pen Needle) #50 ea 07/28/22 [Rx Last Taken Unknown] diazepam 2 mg tablet 2 mg PO TID PRN PRN back pain #10 TABLETS 07/01/23 [Rx Last Taken Unknown] hydrocodone-acetaminophen 5-325mg 5mg-325mg 1 tab PO Q6H PRN PRN Pain 3 days #12TABLETS 07/01/23 [Rx Last Taken Unknown] dicyclomine 10 mg capsule 20 mg (2 x 10 mg) PO TIDAC #20 CAPSULES 07/02/23 [Rx Last Taken Unknown] empagliflozin 25 mg tablet (Jardiance) mg 07/02/23 [History Last Taken Unknown] insulin glargine U-300 conc 300 unit/mL (1.5 mL) subcutaneous pen (Toujeo SoloStar U-300 Insulin) 40 unit subcut QHS 07/02/23 [History Last Taken Unknown] insulin lispro 100 unit/mL subcutaneous cartridge (Humalog U-100 Insulin) 6 unitsubcut .COMPLEX 07/02/23 [History Last Taken Unknown] ondansetron 4 mg disintegrating tablet 4 mg PO Q8H PRN PRN Nausea #10 tabs 07/02/23 [Rx Last Taken Unknown] Allergy/AdvReac Type Severity Reaction Status Date / Time No Known Allergies Allergy Verified 07/02/23 18:19 Family History Mother Diabetes Father Diabetes Cancer Hx mesothelioma. Surgical History No history of previous surgery Social History household members: other details: Lives with her son. Her son is also an alcoholic. Smoking Status: Former smoker alcohol intake: current alcohol intake frequency: 3 or more drinks per day details: Reports at least 4 beers daily, not forthcoming with use details. substance use type: does not use ROS ROS ED Review of Systems ROS Unobtainable: due to mental status Constitutional Constitutional ED: Denies chills, fever(s) or weight loss Eyes Eyes: Denies blurry vision, change in vision or diplopia ENT ENT ED: Denies ear pain, rhinorrhea or sore throat Cardiovascular Cardiovascular: Denies chest pain Respiratory/Chest Respiratory/Chest: Denies cough, dyspnea or dyspnea on exertion Gastrointestinal Gastrointestinal: Denies abdominal pain, diarrhea or vomiting Genitourinary Genitourinary ED: Denies dysuria, hematuria or urinary frequency Musculoskeletal Musculoskeletal: Reports back pain; Denies arthralgias or myalgias Integumentary Denies rash Neurologic Neurologic: Reports weakness; Denies headache(s) Hematologic/Lymphatic Hematologic/Lymphatic: Reports systems reviewed and no addt'l complaints, exceptas documented EXAM Physical Exam Const Vital Signs: 07/02/23 18:19 Temperature 97.9 F Temperature Source Temporal Pulse Rate 115 H Respiratory Rate 18 Blood Pressure 162/88 H Blood Pressure Mean 112 Pulse Ox 100 Oxygen Delivery Method Room Air Positive well nourished and well developed Constitutional Narrative: Patient is somnolent. She is slow to response. She does not appear well. General Appearance ED: well developed and NAD; Negative for pallor HEENT Reports dry mucous membranes HEENT Narrative: Head is atraumatic and normocephalic. Ears are normal. TMs are normal. Nares patent with no discharge. Posterior pharynx out erythema. Uvula midline. No deviation tongue protrusion. Mouth ED: Yes dry mucous membranes Mouth: dry mucous membranes Eyes PERRL and EOMs intact bilaterally Eyes Narrative: Pupils are small but react. There is no nystagmus. General Eye ED: Negative for pale conjunctiva or scleral icterus Neck no lymphadenopathy, supple and no JVD Chest Wall inspection of chest normal and palpation of chest normal Resp normal respiratory effort and clear to auscultation bilaterally Cardio regular rhythm, S1 normal heart sound, S2 normal heart sound and no murmurs Rate: bradycardia GI normal to inspection, nondistended, normoactive bowel sounds, non-tender, non-distended and no masses; Negative for hepatosplenomegaly Auscultation: normoactive bowel sounds Palpation: soft Back/Spine no CVA tenderness Lumbar Spine / Lower Back: lumbar spinal tenderness Extremity normal to inspection Extremity Narrative: DP and PT pulse are palpable. Patient does have hair on her toes. General Extremety ED: Negative for edema or tenderness General Extremity: Negative for edema Neuro oriented x3, CN's II-XII intact bilaterally and no sensory deficits noted Neuro Narrative: EHLs intact. Patella and ankle reflex are 2+. 5/5 strength plantar and dorsiflexion. Sensorium / Orientation: Negative for alert Motor Exam: strength 5/5 throughout Psych Mood & Affect: depressed Skin no rashes or lesions noted, no wounds and skin turgor normal General Skin Exam: Negative for elasticity normal, jaundice or pallor MDM MDM MDM Narrative Medical decision making narrative: Patient is requesting pain medicine. Patient is history physical exam and findings are not consistent with what she is telling me. I am concerned that she may be overmedicated in light of the fact that she is drowsy with pinpoint pupils. Clinically she may be dehydrated. Will order IV fluids. Blood work was ordered which included a BMP to assess glucose and anion gap since she is diabetic and when she was seen on her blood sugar was greater than 400. Also to assess her electrolytes. CBC was obtained to assess white count differential. Because she is tachycardic EKG was obtained to determine if thereis any ischemic changes. History & Record Review Additional record(s) reviewed:: Prior outpatient record, Prior ED visit and Prior labs Lab Data Attestation: I reviewed the patient's lab results. Lab results narrative: CBC is unremarkable. Basic metabolic panel is a glucose of 352 with a CO2 of 10and anion gap of 22. This would indicate that the patient has DKA. She does have ketones in her urine. Will initiate DKA order set. Labs: Laboratory Results - last 24 hr 07/02/23 07/02/23 07/02/23 19:22 19:31 19:38 WBC 7.1 RBC 4.71 Hgb 14.0 Hct 43.4 MCV 92.1 MCH 29.7 MCHC 32.3 RDW Std Deviation 43.7 RDW Coeff of Nellie 12.9 Plt Count 261 MPV 11.8 Immature Gran % (Auto) 0.600 Neut % (Auto) 74.0 H Lymph % (Auto) 20.1 [place] % (Auto) 4.6 Eos % (Auto) 0.1 Baso % (Auto) 0.6 Absolute Neuts (auto) 5.3 Absolute Lymphs (auto) 1.43 Nucleated RBC % 0 ESR 24 Sodium 135 L Potassium 3.8 Chloride 103 Carbon Dioxide 10.0 L Anion Gap 22 H BUN 16 Creatinine 1.11 H Est GFR (MDRD) Af Amer 64 Est GFR (MDRD) Non-Af 53 L BUN/Creatinine Ratio 14.4 Glucose 352 H Calcium 10.2 H Urine Color Yellow Urine Clarity Clear Urine pH 5.0 Ur Specific [place] 1.020 Urine Protein 30 H Urine Glucose (UA) 1000 H Urine Ketones 150 A* Urine Occult Blood 50 H Urine Nitrite Negative Urine Bilirubin Negative Urine Urobilinogen Normal Ur Leukocyte Esterase 100 H Urine RBC 0 SEEN Urine WBC 25-50 SEEN Ur Squamous Epith Cells 0-5 SEEN Urine Bacteria 0 SEEN Urine Mucus 0 SEEN POC Glucose 308 H EKG Initial EKG: Attestation: I personally reviewed and interpreted this EKG as follows: Interpretation: Sinus Tachycardia (Rate is 113. VA interval is 138 ms. QRS durations 88 ms. QT duration 344 ms. [place] is normal. There is nonseptic changes which may represent artifact. The respiratory therapist said it was difficult to obtain an EKG because of patient's lack of cooperation.) Comments: There are no peaked T waves. Treatment and Re-Evaluation :: Patient was informed of her laboratory results. Patient was started on insulin drip. Will contact hospitalist for admission. Critical Care Time Critical Care Time: Yes Critical care time (excluding procedures): 30-74 minutes (33), Including time spent: (History, physical, documentation, review of prior records, independent rotation of laboratory results and initiation of insulin to treat DKA), Discussing w/Patient &/or Family/Hvac Estimator, Discussing w/Consultants and Arranging Admission or Transfer Discharge Plan Dx/Rx/DC Orders Clinical Impression: Pyuria, Back pain, Diabetic ketoacidosis associated with type 1 diabetes mellitus, Elevated serum creatinine, Sinus tachycardia by electrocardiogram Disposition Disposition: Acute Care Hospital [facility] What to do if you have Problems For any increased pain, shortness of breath, bleeding, nausea or vomiting, chestpain, or any unexpected problems, contact your Primary Care Provider. Call [facility] ([phone]) or report to the closest Emergency Room. Call 911 if necessary. 07/02/232058 <Electronically signed by Steven Voss MD> Cosigner Signature (if applicable): CC: Dr. Milind Lamb MD ~ Signed [facility] Work Phone: [phone]) 771-788412-27-2023 Hospital Discharge instructions Additional Instructions Ice 20 minutes on, 20 minutes off. Do not do heat. Perform lumbar stretching exercises as shown at bedside and on discharge paperwork. If nosebleed starts again, hold 20 minutes on continuous pressure, if bleeding does not stop, return to the ER for reevaluation. Use appw-kdw-qgnxuty MiraLAX twice a day for the next 3 to 4 days for good bowel relief. Use czaf-mhu-majwvad magnesium citrate or mineral oil 1-2 bottles a day for the next 2 days to help with the bowels as well. Use either rzwm-liw-yfqouxr Motrin, Advil, ibuprofen or Naprosyn daily to help with pain and inflammation. Follow-up and establish PCP for [facility] Phone: 1(952) 917-383201-22-[address] [facility] July 28, 2022 2:11pm Note Date/Time July 28, 2022 2 :11pm [facility] Medical Records Department [address] [place] [address] Discharge Summary 07/28/22 1409 MR#: [id number] Acct: [id number] Name: ROBERT BRUCE Rep #:[id number] : 1960 62 From: Sanjiv Ahumada DO PCP: Dr. Milind Lamb MD Status:ADM I N Location: [place] [id number] Providers Date of Admission: 07/26/22 Date of Discharge: 07/28/22 Primary Care Physician: Dr. Milind Lamb MD Reason For Visit: DKA Diagnosis Discharge Diagnosis (1) Diabetic keto-acidosis: Status: Acute Code(s): E11.10 - Type 2 diabetes mellitus with ketoacidosis without coma Plan: Resolved with Insulin drip and IV fluids Resume basal and prandial insulin Patient is described as a type II diabetic. Will hold off on any further glimepiride and metformin. A1c greater than 14, so clearly, patient is uncontrolled chronically. (2) BRITTNI (acute kidney injury): Status: Resolved Code(s): N17.9 - Acute kidney failure, unspecified Plan: Resolved. Likely due to prerenal azotemia as patient was having polyuria and polydipsia. IV fluids Follow-up (3) Hypokalemia: Status: Acute Code(s): E87.6 - Hypokalemia Plan: Likely due to severe chronic depletion Mag normal at 2.3 Replace Plan VTE prophylaxis with enoxaparin. Will monitor the patient overnight as I am changing her insulin protocol and discontinuing her oral agents. Medications at Discharge Home Medications lisinopril 2.5 mg tablet 2.5 mg PO DAILY blood pressurre 07/14/19 flash glucose sensor (FreeStyle Moncho 2 Sensor kit) #2 ea 04/11/22 naproxen 500 mg tablet 500 mg PO DAILY PRN Pain 07/26/22 sertraline 100 mg tablet 100 mg PO DAILY depression 07/26/22 blood sugar diagnostic (FreeStyle Test strips) #100 ea 07/28/22 insulin glargine U-300 conc 300 unit/mL (3 mL) subcutaneous pen (Toujeo Max U- 300 SoloStar) 20 unit (0.0667 mL) subcut BID diabetes #6 mL 07/28/22 insulin lispro 100 unit/mL subcutaneous pen (Humalog KwikPen (U-100) Insulin) 6 unit (0.06 mL) subcut TIDAC #15 mL 07/28/22 lancets 28 gauge (FreeStyle Lancets) #100 ea 07/28/22 pen needle, diabetic 32 gauge x 5/32 (BD Ultra-Fine Josefina Pen Needle) #50 ea 07/28/22 Hospital Course Operations None Procedures None Summary of Care Provided Minutes Spent on Discharge: 35 Hospital Course: 8-year-old female presents with diabetic ketoacidosis. Patient was taking basalinsulin but also metformin and glimepiride. Patient's A1c was 14. Patient was put on insulin drip and eventually switched over to basal insulin. Thus changedover to twice daily rather than the once daily she was taking at home. Also addprandial insulin as well. Patient advised to discontinue the metformin as well as glimepiride and continue with insulin regimen and check her blood sugar 3 times daily. Also recommend the patient follow-up with endocrinology in regardsto further diabetes management. Physical Exam Const alert and no apparent distress Resp normal respiratory effort, no retractions, no use of accessory muscles and clearto auscultation bilaterally Cardio regular rate, regular rhythm, S1 normal heart sound and S2 normal heart sound GI normal to inspection, nondistended, normoactive bowel sounds, soft to palpation,non-tender and non-distended Medical Records Data Medical Nutrition Assessment Dietitian: Malnutrition Criteria Met Start: 07/26/22 15:35 Freq: Status: Active Protocol: Document 07/26/22 15:35 [facility] (Rec: 07/26/22 15:35 [facility] [id number]) Nutrition Malnutrition Evidence of Malnutrition Exists Yes Malnutrition (severe): Acute Illness/Injury Evidenced By Suboptimal Energy Intake ( Severe),Weight Loss (Severe), Physical Changes (Moderate) Clinical Problem Acute Disease or Injury Related Malnutrition Etiology related to increased stress and irregular eating Signs/Symptoms as evidenced by 8.6% wt loss and consuming less than 50% of est nutritional needs x 2 wks - also w/ fat/muscle loss in face, clavicles, scapula, arms Status Active Problem Altered Nutrient-Related Laboratory Values Etiology related to diabetes Signs/Symptoms as evidenced by gluc 686 at time of adm Status Active Problem Recommendation Dietitian Recommendations/Changes As medically able, rec SARWAT to Consistent CHO As medically able, rec 4 oz glucerna shake 4x/day w/ medpass Will provide diet education to pt prior to discharge as indicated by pt. Weight / BMI Weight Weight: 49.4 kg Body Mass Index (BMI) 19.3 ABG / Lab / Microbiology Data Result Diagrams: 07/27/22 05:45 07/28/22 05:33 Laboratory: Laboratory Results - last 24 hr 07/27/22 16:47: POC Glucose 233 H 07/27/22 21:23: POC Glucose 198 H 07/28/22 05:33: Sodium 141, Potassium 2.5 L*, Chloride 114 H, Carbon Dioxide 20.0 L, Anion Gap 7, BUN 8, Creatinine 0.59, Estim Creat Clear Calc 79.08, Est GFR (MDRD) Af Amer 135, Est GFR (MDRD) Non-Af 111, BUN/Creatinine Ratio 13.7, Glucose 80, Calcium 8.8 01/22/23 07:52: POC Glucose 57 L 07/28/22 08:23: POC Glucose 106 07/28/22 12:06: POC Glucose 248 H D/C Instructions Discharge Diet: 1999 Calorie Control Diet Meaningful Use Info Meaningful Use Diagnoses (Choose all that apply): None applicable Discharge Plan Admission Admit Date/Time: 07/26/22 13:09 Primary Reason for Your Visit: DKA Attending Provider: Sanjiv Ahumada Primary Care Provider: Milind Lamb Discharge Orders/Prescriptions Prescriptions: New insulin lispro [Humalog KwikPen Insulin] 100 unit/mL Insulin Pen 6 unit subcut TIDAC Qty: 15 0RF (DME) lancets [FreeStyle Lancets] 28 gauge misc See Rx Instructions .Route Qty: 100 0RF Rx Instructions: As directed (DME) FreeStyle Test Strip See Rx Instructions .Route Qty: 100 0RF Rx Instructions: As directed Continued lisinopril 2.5 mg tablet 2.5 mg PO DAILY (DME) FreeStyle Moncho 2 Sensor Kit See Rx Instructions .Route Qty: 2 5RF Rx Instructions: As directed sertraline 100 mg tablet 100 mg PO DAILY naproxen 500 mg tablet 500 mg PO DAILY PRN (Reason: Pain) (DME) pen needle, diabetic [BD Ultra-Fine Josefina Pen Needle] 32 gauge x 5/32 needle See Rx Instructions .ROUTE .MEDSUPPLY Qty: 50 5RF Rx Instructions: daily Changed Toujeo Max U-300 SoloStar 300 unit/mL (3 mL) insulin pen 20 unit subcut BID Qty: 6 0RF Discontinued glimepiride 2 mg tablet 2 mg PO BID metformin 1,000 mg tablet 1,000 mg PO BID Referrals / Follow Up: [facility] [Provider Group] - Within 1 Month Milind Lamb MD [Primary Care Provider] - Within 2 Weeks Disposition Disposition (needs filled in before D/C Order can be placed): Home, Self Care Charges/Coding Visit Charges Inpatient E&M: 84277 Disch Hosp >30min 07/28/22 1411 <Electronically signed by Sanjiv Ahumada DO> Cosigner Signature (if applicable): CC: Dr. Sanjiv Ahumada DO; Dr. Milind Lamb MD~ Signed [facility] Work Phone: 1(993) 833-923401-22-[address] [facility] July 28, 2022 2:09pm Note Date/Time July 28, 2022 2 :02pm [facility] Medical Records Department [address] [place] [address] Instructions for Home/Discharge Instructions 07/28/22 1402 MR#: [id number] Acct: [id number] Name: ROBERT BRUCE Rep #:[id number] : 1960 62 From: Sanjiv Ahumada DO PCP: Dr. Milind Lamb MD Status:ADM I N Discharge Instructions Diet Discharge Diet: 2000 Calorie Control Diet Follow Up Care Test Results: Test results from this visit will be discussed in further detail at your follow- up appointment, if applicable. Discharge Plan Admission Admit Date/Time: 07/26/22 13:09 Primary Reason for Your Visit: DKA Attending Provider: Sanjiv Ahumada Primary Care Provider: Milind Lamb Discharge Orders/Prescriptions Prescriptions: New insulin lispro [Humalog KwikPen Insulin] 100 unit/mL Insulin Pen 6 unit subcut TIDAC Qty: 15 0RF (DME) lancets [FreeStyle Lancets] 28 gauge misc See Rx Instructions .Route Qty: 100 0RF Rx Instructions: As directed (DME) FreeStyle Test Strip See Rx Instructions .Route Qty: 100 0RF Rx Instructions: As directed Continued lisinopril 2.5 mg tablet 2.5 mg PO DAILY (DME) FreeStyle Moncho 2 Sensor Kit See Rx Instructions .Route Qty: 2 5RF Rx Instructions: As directed sertraline 100 mg tablet 100 mg PO DAILY naproxen 500 mg tablet 500 mg PO DAILY PRN (Reason: Pain) (DME) pen needle, diabetic [BD Ultra-Fine Josefina Pen Needle] 32 gauge x 5/32 needle See Rx Instructions .ROUTE .MEDSUPPLY Qty: 50 5RF Rx Instructions: daily Changed Toujeo Max U-300 SoloStar 300 unit/mL (3 mL) insulin pen 20 unit subcut BID Qty: 6 0RF Discontinued glimepiride 2 mg tablet 2 mg PO BID metformin 1,000 mg tablet 1,000 mg PO BID Referrals / Follow Up: [facility] [Provider Group] - Within 1 Month Milind Lamb MD [Primary Care Provider] - Within 2 Weeks Disposition Disposition (needs filled in before D/C Order can be placed): Home, Self Care 07/28/22 1409<Electronically signed by Sanjiv Ahumada DO>Sanjiv Ahumada DO CC: Dr. Milind Lamb MD ~ Signed [facility] Work Phone: 1(193) 957-129901-21-[address] [facility] July 27, 2022 2:19pm Note Date/Time July 27, 2022 7 :43am [facility] Medical Records Department [address] [place] [address] Progress Note - Hospitalist 07/27/22 0739 MR#: [id number] Acct: [id number] Name: ROBERT BRUCE Rep #:[id number] : 1960 62 From: Sanjiv Ahumada DO PCP: Dr. Milind Lamb MD Status:ADM I N Location: [place] [address] Subjective Subjective Feels well. Objective Data Objective Data Vital Signs: Vital Signs Temp Pulse Resp BP Pulse Ox O2 Del Method 36.9 C 90 14 132/66 H 99 Room Air 07/27/22 04:00 07/27/22 07:00 07/27/22 07:00 07/27/22 07:00 07/27/22 07:00 07/27/22 07:00 Oxygen Delivery Method Room Air Weight: 49.9 kg Body Mass Index (BMI) 19.3 Intake & Output: Intake and Output for Last 24 Hours 07/25/22 07/26/22 07/27/22 23:59 23:59 23:59 Intake Total 2662.72 / 2662.72 3028.13 / 3028.13 Output Total 1200 / 1700 500 / 500 Balance 1462.72 / 962.72 2528.13 / 2528.13 Medical Nutrition Assessment Dietitian: Malnutrition Criteria Met Start: 07/26/22 15:35 Freq: Status: Active Protocol: Document 07/26/22 15:35 SLA (Rec: 07/26/22 15:35 SLA [id number]) Nutrition Malnutrition Evidence of Malnutrition Exists Yes Malnutrition (severe): Acute Illness/Injury Evidenced By Suboptimal Energy Intake ( Severe),Weight Loss (Severe), Physical Changes (Moderate) Clinical Problem Acute Disease or Injury Related Malnutrition Etiology related to increased stress and irregular eating Signs/Symptoms as evidenced by 8.6% wt loss and consuming less than 50% of est nutritional needs x 2 wks - also w/ fat/muscle loss in face, clavicles, scapula, arms Status Active Problem Altered Nutrient-Related Laboratory Values Etiology related to diabetes Signs/Symptoms as evidenced by gluc 686 at time of adm Status Active Problem Recommendation Dietitian Recommendations/Changes As medically able, rec SARWAT to Consistent CHO As medically able, rec 4 oz glucerna shake 4x/day w/ medpass Will provide diet education to pt prior to discharge as indicated by pt. Lab / Micro Data Result Diagrams: 07/27/22 05:45 07/27/22 05:45 Labs: Laboratory Results - last 24 hr 07/26/22 11:23: POC Glucose > 500 H* 07/26/22 11:35: WBC 9.7, RBC 4.25, Hgb 12.5, Hct 38.1, MCV 89.6, MCH 29.4, MCHC 32.8, RDW Std Deviation 43.4, RDW Coeff of Nellie 13.2, Plt Count 234, MPV 12.0, Immature Gran % (Auto) 2.300 H, Neut % (Auto) 79.8 H, Lymph % (Auto) 12.1 L, [place] % (Auto) 5.0, Eos % (Auto) 0.1, Baso % (Auto) 0.7, Absolute Neuts (auto) 7.7, Absolute Lymphs (auto) 1.17, Nucleated RBC % 0 07/26/22 11:35: Sodium 132 L, Potassium 4.2, Chloride 99, Carbon Dioxide 6.0 L*,Anion Gap 27 H, BUN 14, Creatinine 1.32 H, Estim Creat Clear Calc 37.49, Est GFR(MDRD) Af Amer 53 L, Est GFR (MDRD) Non-Af 44 L, BUN/Creatinine Ratio 10.6, Glucose 686 H*, Calcium 9.7, Magnesium 2.3 07/26/22 11:35: Hemoglobin A1c > 14.0 H 07/26/22 13:29: POC Glucose 462 H* 07/26/22 14:10: Sodium 137, Potassium 3.1 L, Chloride 110 H, Carbon Dioxide 8.0 L*, Anion Gap 19 H, BUN 13, Creatinine 0.98, Estim Creat Clear Calc 47.61, Est GFR (MDRD) Af Amer 75, Est GFR (MDRD) Non-Af 62, BUN/Creatinine Ratio 13.3, Glucose 465 H*, Calcium 8.4 L 07/26/22 14:35: Urine Color Straw, Urine Clarity Clear, Urine pH 6.5, Ur Specific [place] 1.015, Urine Protein 30 H, Urine Glucose (UA) 1000 H, Urine Ketones 150 A*, Urine Occult Blood 10 H, Urine Nitrite Negative, Urine BilirubinNegative, Urine Urobilinogen Normal, Ur Leukocyte Esterase Negative, Urine RBC 0-5 SEEN, Urine WBC 0 SEEN, Ur Squamous Epith Cells 0 SEEN, Urine Bacteria 0 SEEN, Urine Mucus 0 SEEN 07/26/22 14:44: POC Glucose 409 H 07/26/22 15:47: POC Glucose 259 H 07/26/22 16:57: POC Glucose 308 H 07/26/22 17:52: POC Glucose 257 H 07/26/22 18:12: Sodium 142, Potassium 2.6 L*, Chloride 118 H, Carbon Dioxide 10.0 L, Anion Gap 14, BUN 12, Creatinine 0.89, Estim Creat Clear Calc 52.42, EstGFR (MDRD) Af Amer 83, Est GFR (MDRD) Non-Af 69, BUN/Creatinine Ratio 13.5, Glucose 251 H, Calcium 8.6 07/26/22 18:59: POC Glucose 206 H 07/26/22 20:05: POC Glucose 205 H 07/26/22 21:07: POC Glucose 206 H 07/26/22 22:03: POC Glucose 198 H 07/26/22 22:15: Sodium 142, Potassium 2.9 L, Chloride 118 H, Carbon Dioxide 13.0L, Anion Gap 11, BUN 11, Creatinine 0.95, Estim Creat Clear Calc 49.11, Est GFR (MDRD) Af Amer 77, Est GFR (MDRD) Non-Af 64, BUN/Creatinine Ratio 11.6, Glucose 240 H, Calcium 8.5 07/26/22 23:18: POC Glucose 230 H 07/27/22 00:08: POC Glucose 248 H 07/27/22 01:08: POC Glucose 219 H 07/27/22 02:15: Sodium 143, Potassium 3.1 L, Chloride 122 H, Carbon Dioxide 15.0L, Anion Gap 6, BUN 11, Creatinine 0.90, Estim Creat Clear Calc 51.84, Est GFR (MDRD) Af Amer 82, Est GFR (MDRD) Non-Af 68, BUN/Creatinine Ratio 12.2, Glucose 194 H, Calcium 8.4 L 07/27/22 02:15: POC Glucose 195 H 07/27/22 03:06: POC Glucose 138 H 07/27/22 04:02: POC Glucose 112 H 07/27/22 05:11: POC Glucose 102 07/27/22 05:45: WBC 5.5, RBC 3.37 L, Hgb 10.2 L, Hct 28.8 L, MCV 85.5, MCH 30.3,MCHC 35.4 D, RDW Std Deviation 40.8, RDW Coeff of Nellie 13.2, Plt Count 156, MPV 11.1, Immature Gran % (Auto) 0.500, Neut % (Auto) 58.4, Lymph % (Auto) 29.5, [place] % (Auto) 10.3 H, Eos % (Auto) 0.9, Baso % (Auto) 0.4, Absolute Neuts (auto)3.2, Absolute Lymphs (auto) 1.63, Nucleated RBC % 0 07/27/22 05:45: Sodium 144, Potassium 3.1 L, Chloride 122 H, Carbon Dioxide 16.0L, Anion Gap 6, BUN 11, Creatinine 0.80, Estim Creat Clear Calc 58.91, Est GFR (MDRD) Af Amer 95, Est GFR (MDRD) Non-Af 78, BUN/Creatinine Ratio 13.8, Glucose 105, Calcium 8.5 07/27/22 05:45: POC Glucose 101 07/27/22 06:59: POC Glucose 78 Rhythm Strip Rhythm Strip: Sinus Tach Rate: 122 Ectopy: None Physical Exam Const alert, oriented x3 and no apparent distress HEENT head/scalp atraumatic and moist oral mucous membranes Eyes PERRL Resp normal respiratory effort, no retractions, no use of accessory muscles and clearto auscultation bilaterally Cardio regular rate, regular rhythm, S1 normal heart sound and S2 normal heart sound GI normal to inspection, nondistended, normoactive bowel sounds and soft to palpation Assessment & Plan Assessment/Plan (1) Diabetic keto-acidosis: PLAN: Resolved with Insulin drip and IV fluids Resume basal and prandial insulin Patient is described as a type II diabetic. Will hold off on any further glimepiride and metformin. A1c greater than 14, so clearly, patient is uncontrolled chronically. (2) BRITTNI (acute kidney injury): PLAN: Resolved. Likely due to prerenal azotemia as patient was having polyuria and polydipsia. IV fluids Follow-up (3) Hypokalemia: PLAN: Likely due to severe chronic depletion Mag normal at 2.3 Replace PLAN: Plan VTE prophylaxis with enoxaparin. Will monitor the patient overnight as I am changing her insulin protocol and discontinuing her oral agents. Charges/Coding Visit Charges Inpatient E&M: 67421 Subs Hosp L2 07/27/22 8278 <Electronically signed by Sanjiv Ahumada DO> Cosigner Signature (if applicable): CC: ~ Signed [facility] Work Phone: 1(865) 965-741701-20-2023 History and physical note Author Dr. [facility]umada [facility] July 26, 2022 1:45pm Note Date/Time July 26, 2022 1 :45pm [facility] Medical Records Department [address] [place] [id number] H&P Exam - Hospitalist 07/26/22 1340 MR#: [id number] Acct: [id number] Name: ROBERT BRUCE Rep #:[id number] : 1960 62 From: Sanjiv Ahumada DO PCP: Dr. Milind Lamb MD Status:ADM I N Location: ICU ICU06-1 HPI - General General Date of Admission: 07/26/22 Date of Service: 07/26/22 Chief Complaint: weak HPI Narrative ROBERT BRUCE, is a 62 F who presents presents with weakness. Over the past few days, patient has just progressively gotten weak but has noticed over the past month. Patient's blood sugars have been high but insist that she is takingher insulin as instructed.'s complaints additionally shortness of breath chest pain, abdominal pain. Patient presented to the emergency room and was found to be in DKA and with a blood sugar of 66. Patient received IV fluids as well as started on insulin drip. The hospitalist service was contacted for admission. [facility] Medical History Anxiety and depression COVID-19 Diabetes Diabetes mellitus, type 2 ETOH abuse GERD (gastroesophageal reflux disease) HTN (hypertension) Hypokalemia Tobacco use Home Medications lisinopril 2.5 mg tablet 2.5 mg PO DAILY blood pressurre 07/14/19 [History Last Taken 07/25/22] flash glucose sensor (FreeStyle Moncho 2 Sensor kit) #2 ea 04/11/22 [Rx Last Taken Unknown] pen needle, diabetic 32 gauge x 5/32 (BD Ultra-Fine Josefina Pen Needle) #50 ea 04/11/22 [Rx Last Taken Unknown] glimepiride 2 mg tablet 2 mg PO BID diabetes 07/26/22 [History Last Taken 07/25/22] insulin glargine U-300 conc 300 unit/mL (3 mL) subcutaneous pen (Toujeo Max U- 300 SoloStar) 20 unit subcut DAILY diabetes 07/26/22 [History Last Taken 07/25/22] metformin 1,000 mg tablet 1,000 mg PO BID diabetes 07/26/22 [History Last Taken 07/25/22] naproxen 500 mg tablet 500 mg PO DAILY PRN Pain 07/26/22 [History Last Taken 07/22/22] sertraline 100 mg tablet 100 mg PO DAILY depression 07/26/22 [History Last Taken 07/25/22] Allergy/AdvReac Type Severity Reaction Status Date / Time No Known Allergies Allergy Verified 07/26/22 11:15 Family History Mother Diabetes Father Diabetes Cancer Hx mesothelioma. Surgical History No history of previous surgery Social History household members: other details: Lives with her son. Her son is also an alcoholic. Smoking Status: Former smoker alcohol intake: current alcohol intake frequency: 3 or more drinks per day details: Reports at least 4 beers daily, not forthcoming with use details. substance use type: does not use ROS ROS Narrative All review of systems were negative except as mentioned above in the history of present illness and the other review of systems. Vital Signs Vital Signs Vital Signs: 07/26/22 11:12 07/26/22 11:33 07/26/22 13:00 Temperature 36.7 C Temperature Source Temporal Pulse Rate 117 H 107 H Respiratory Rate 20 H 27 H Respiratory Effort Short of Breath Respiratory Pattern Tachypnea Blood Pressure 175/82 H 138/73 H Blood Pressure Mean 113 94 Pulse Ox 100 100 Oxygen Delivery Method Room Air Room Air Room Air 07/26/22 13:00 Temperature 36.3 C L Temperature Source Oral Pulse Rate 107 H Respiratory Rate 27 H Respiratory Effort Respiratory Pattern Blood Pressure 138/73 H Blood Pressure Mean 94 Pulse Ox 99 Oxygen Delivery Method Room Air Weight Weight: 54.431 kg Body Mass Index (BMI) 21.2 Physical Exam Const alert and no apparent distress Constitutional Narrative: Listless. Afebrile. HEENT normocephalic and head/scalp atraumatic Resp normal respiratory effort, no retractions, no use of accessory muscles and clearto auscultation bilaterally Cardio regular rate, regular rhythm, S1 normal heart sound and S2 normal heart sound GI normal to inspection, nondistended, normoactive bowel sounds, soft to palpation and non-tender Extremity normal to inspection Results Lab / Micro Data Attestation: I reviewed the patient's lab results. Result Diagrams: 07/26/22 11:35 07/26/22 11:35 Labs: Laboratory Results - last 24 hr 07/26/22 11:23: POC Glucose > 500 H* 07/26/22 11:35: WBC 9.7, RBC 4.25, Hgb 12.5, Hct 38.1, MCV 89.6, MCH 29.4, MCHC 32.8, RDW Std Deviation 43.4, RDW Coeff of Nellie 13.2, Plt Count 234, MPV 12.0, Immature Gran % (Auto) 2.300 H, Neut % (Auto) 79.8 H, Lymph % (Auto) 12.1 L, [place] % (Auto) 5.0, Eos % (Auto) 0.1, Baso % (Auto) 0.7, Absolute Neuts (auto) 7.7, Absolute Lymphs (auto) 1.17, Nucleated RBC % 0 07/26/22 11:35: Sodium 132 L, Potassium 4.2, Chloride 99, Carbon Dioxide 6.0 L*,Anion Gap 27 H, BUN 14, Creatinine 1.32 H, Estim Creat Clear Calc 37.49, Est GFR(MDRD) Af Amer 53 L, Est GFR (MDRD) Non-Af 44 L, BUN/Creatinine Ratio 10.6, Glucose 686 H*, Calcium 9.7, Magnesium 2.3 Rhythm Strip Rhythm Strip: Sinus Tach Rate: 122 Ectopy: None Assessment & Plan Assessment/Plan (1) Diabetic keto-acidosis: PLAN: Insulin drip and IV fluids Monitor BMP is CLOSE and then can resume basal insulin. Patient is described as a type II diabetic. Will hold off on any further glimepiride and metformin. Check an A1c Anticipate patient will require larger dose of insulin at home plus prandial insulin. (2) BRITTNI (acute kidney injury): PLAN: Likely due to prerenal azotemia as patient was having polyuria and polydipsia. IV fluids Follow-up PLAN: Plan VTE prophylaxis with enoxaparin. 07/26/22 9853 <Electronically signed by Sanjiv Ahumada DO> Cosigner Signature (if applicable): CC: Dr. Sanjiv Ahumada DO; Dr. Milind Lamb MD~ Signed [facility] Work Phone: 1([phone]) 489-483201-20-[address] [facility] July 26, 2022 12:19pm Note Date/Time July 26, 2022 1 1:41am [facility] Medical Records Department [address] [place] [id number] Emergency Department Summary 07/26/22 MR#: [id number] Acct: [id number] Name: ROBERT BRUCE Rep #:[id number] : 1960 62 From: Steven Voss MD PCP: Dr. Milind Lamb MD Status:REG E R Location: ED HPI History of Present Illness Chief Complaint: Shortness of Breath Detail of Chief Complaint: Dyspnea, thirst, polyuria, bilateral blurred vision, elevated blood sugar Informant: patient and family Onset/Context/Timing Onset: Days (Symptoms started proxy 2 days ago) Context: Sudden Onset Timing: Continuous Quality: Symptoms of hyperglycemia/DKA Location: Endocrine, generalized Current Severity: Moderate Maximum Severity: Moderate Worsened by: Unknown Relieved by: Nothing Associated Symptoms Associated Symptoms: Nausea, shortness of breath, and per HPI Narrative Narrative: Patient is a 62-year-old type II diabetic requiring insulin. She was in DKA 1 year ago. She presents with dyspnea, by ocular blurred vision, thirst, dry mouth, polyuria, polydipsia, shortness of breath. She denies abdominal pain. She denies fever, chills night sweats. She does have a superficial burn to the volar surface of her right forearm. This occurred 3 days ago at work. There isno evidence of infection. She denies headache, double vision or loss of vision. She has ringing ears decreased hearing. She denies rhinorrhea, congestion postnasal drainage sore throat. She denies cough. She denies chest discomfort. She denies abdominal pain. She denies vomiting or diarrhea. She denies dysuria or hematuria. She does report the rash due to burn otherwise negative. Prior similar symptoms: Yes (Approxi-1 year ago) Recent Illness/Hospitalization: No PFSH PFSH Medical History Anxiety and depression COVID-19 Diabetes Diabetes mellitus, type 2 ETOH abuse GERD (gastroesophageal reflux disease) HTN (hypertension) Hypokalemia Tobacco use Home Medications lisinopril 2.5 mg tablet 2.5 mg PO DAILY 07/14/19 [History Last Taken Unknown] sertraline 50 mg tablet 100 mg PO DAILY 07/14/19 [History Last Taken Unknown] flash glucose sensor (FreeStyle Moncho 2 Sensor kit) #2 ea 04/11/22 [Rx Last Taken Unknown] glimepiride 2 mg tablet 2 mg PO BID #60 tabs 04/11/22 [Rx Last Taken Unknown] insulin glargine U-300 conc 300 unit/mL (3 mL) subcutaneous pen (Toujeo Max U- 300 SoloStar) 20 unit (0.0667 mL) subcut DAILY #3 mL 04/11/22 [Rx Last Taken Unknown] metformin 1,000 mg tablet 1,000 mg PO BID #60 tabs 04/11/22 [Rx Last Taken Unknown] pen needle, diabetic 32 gauge x 5/32 (BD Ultra-Fine Josefina Pen Needle) #50 ea 04/11/22 [Rx Last Taken Unknown] guaifenesin 600 mg tablet, extended release 12 hr (Mucinex) 600 mg PO Q12H PRN congestion #14 tabs 05/03/22 [Rx Last Taken Unknown] Allergy/AdvReac Type Severity Reaction Status Date / Time No Known Allergies Allergy Verified 07/26/22 11:15 Family History Mother Diabetes Father Diabetes Cancer Hx mesothelioma. Surgical History No history of previous surgery Social History household members: other details: Lives with her son. Her son is also an alcoholic. Smoking Status: Former smoker alcohol intake: current alcohol intake frequency: 3 or more drinks per day details: Reports at least 4 beers daily, not forthcoming with use details. substance use type: does not use ROS ROS ED Constitutional Constitutional ED: Denies chills, fever(s), subjective, sweats or weight loss Eyes Eyes: Reports blurry vision bilateral; Denies change in vision or diplopia ENT ENT ED: Denies ear pain, rhinorrhea or sore throat Cardiovascular Cardiovascular: Denies chest pain, orthopnea, palpitations, paroxysmal nocturnaldyspnea or racing heartbeat Respiratory/Chest Respiratory/Chest: Reports dyspnea; Denies cough, dyspnea on exertion, orthopneaor paroxysmal nocturnal dyspnea Gastrointestinal Gastrointestinal: Reports nausea; Denies abdominal pain, constipation, diarrhea,melena or vomiting Genitourinary Genitourinary ED: Reports urinary frequency; Denies dysuria or hematuria Musculoskeletal Musculoskeletal: Denies arthralgias, back pain, myalgias or neck pain Integumentary Reports other Details: Additional documented HPI narrative ; Denies abscess, Abrasions or rash Neurologic Neurologic: Denies headache(s) or weakness Psychiatric Psychiatric: Denies anxiety Endocrine Endocrinology: Reports polydipsia and polyuria Hematologic/Lymphatic Hematologic/Lymphatic: Reports systems reviewed and no addt'l complaints, exceptas documented EXAM Physical Exam Const Vital Signs: 07/26/22 11:12 07/26/22 11:33 Temperature 98.0 F Temperature Source Temporal Pulse Rate 117 H Respiratory Rate 20 H Respiratory Effort Short of Breath Respiratory Pattern Tachypnea Blood Pressure 175/82 H Blood Pressure Mean 113 Pulse Ox 100 Oxygen Delivery Method Room Air Room Air Positive well nourished and well developed Constitutional Narrative: Patient appears ill. She is tachypneic. She has ketotic odor to her breath. General Appearance ED: well developed; Negative for cyanotic, diaphoretic or NAD HEENT Reports dry mucous membranes HEENT Narrative: Head is atraumatic normocephalic. Ears normal. TMs normal. Nares patent. Uvula midline. No erythema or exudate the posterior pharynx. Mouth ED: Yes dry mucous membranes Mouth: dry mucous membranes Eyes PERRL and EOMs intact bilaterally General Eye ED: Negative for pale conjunctiva or scleral icterus Neck no lymphadenopathy, supple and no JVD Chest Wall inspection of chest normal and palpation of chest normal Resp normal respiratory effort and clear to auscultation bilaterally Cardio regular rhythm, S1 normal heart sound, S2 normal heart sound and no murmurs Rate: tachycardic GI normal to inspection, nondistended, normoactive bowel sounds, non-tender, non-distended and no masses; Negative for hepatosplenomegaly Back/Spine no CVA tenderness Cervical Spine: Negative for cervical spine tenderness Thoracic Spine / Upper Back: Negative for thoracic spinal tenderness Lumbar Spine / Lower Back: Negative for lumbar spinal tenderness Extremity Negative for normal to inspection Extremity Narrative: Superficial/first-degree burn volar surface right forearm Neuro oriented x3, CN's II-XII intact bilaterally and no sensory deficits noted Sensorium / Orientation: alert Psych mental status grossly normal Skin no rashes or lesions noted, No no wounds and No skin turgor normal Skin Narrative: Previously done MDM MDM MDM Narrative Medical decision making narrative: With tachycardia, tachypnea, ketotic odor breath with elevated blood sugar and symptoms of hyperglycemia suspect patient is in DKA. Patient received 1 L of normal saline which is equivalent to 20 cc/kg. Will await blood results. Once fluids have infused we will start insulin if patient is in DKA as suspected. UAwas obtained to rule out urinary tract infection. CBC to assess white count differential. EKG to assess for cardiac ischemia and hyperkalemia. Patient records were reviewed. She was noted to be in DKA July 2021 and February 2022. Patient had BRITTNI with admission in July and COVID with admissionin February. Patient also has history of hypertension and depression. X-ray was not obtained since patient has no abnormal auscultatory findings and suspect her shortness of breath is due to DKA. Lab Data Attestation: I reviewed the patient's lab results. Lab results narrative: CBC and differential are unremarkable. PTT is greater than 500. Basic metabolic panel reveals a blood sugar of 686 with a CO2 of 6 and anion gap of 27. Creatinine is 1.32 with a GFR of 44. Additional fluids were ordered and insulin drip. Patient require admission to the ICU. Labs: Laboratory Results - last 24 hr 07/26/22 07/26/22 07/26/22 11:23 11:35 11:35 WBC 9.7 RBC 4.25 Hgb 12.5 Hct 38.1 MCV 89.6 MCH 29.4 MCHC 32.8 RDW Std Deviation 43.4 RDW Coeff of Nellie 13.2 Plt Count 234 MPV 12.0 Immature Gran % (Auto) 2.300 H Neut % (Auto) 79.8 H Lymph % (Auto) 12.1 L [place] % (Auto) 5.0 Eos % (Auto) 0.1 Baso % (Auto) 0.7 Absolute Neuts (auto) 7.7 Absolute Lymphs (auto) 1.17 Nucleated RBC % 0 Sodium 132 L Potassium 4.2 Chloride 99 Carbon Dioxide 6.0 L* Anion Gap 27 H BUN 14 Creatinine 1.32 H Estim Creat Clear Calc 37.49 Est GFR (MDRD) Af Amer 53 L Est GFR (MDRD) Non-Af 44 L BUN/Creatinine Ratio 10.6 Glucose 686 H* Calcium 9.7 Magnesium 2.3 POC Glucose > 500 H* Rhythm Strip Rhythm Strip: Sinus Tach Rate: 122 Ectopy: None EKG Initial EKG: Attestation: I personally reviewed and interpreted this EKG as follows: Interpretation: Sinus Tachycardia (Heart rate is 111. VA interval is 188 ms. Cures duration 92 ms. QT duration during 26 ms. [place] is normal. There isartifact noted. There may be nonseptic ST-T wave changes.) Critical Care Time Critical Care Time: Yes Critical care time (excluding procedures): 30-74 minutes (32), Including time spent: (ObtainedHistory, physical, documentation, review of prior records, initiation of therapy laboratory results), Discussing w/Patient &/or Family/CareGiver, Discussing w/Consultants and Arranging Admission or Transfer Discharge Plan Dx/Rx/DC Orders Clinical Impression: Diabetic keto-acidosis, Sinus tachycardia, Elevated serum creatinine, Tachypnea Disposition Disposition: Acute Care Hospital [facility] What to do if you have Problems For any increased pain, shortness of breath, bleeding, nausea or vomiting, chestpain, or any unexpected problems, contact your Primary Care Provider. Call [facility] ([phone]) or report to the closest Emergency Room. Call 911 if necessary. 07/26/22 1219 <Electronically signed by Steven Voss MD> Cosigner Signature (if applicable): CC: Dr. Milind Lamb MD ~ Signed [facility] Work Phone: 1(330) 285-483101-20-[address] [facility] July 26, 2022 12:19pm Note Date/Time July 26, 2022 1 1:41am [facility] Medical Records Department [address] [place] [address] Emergency Department Summary 07/26/22 MR#: [id number] Acct: [id number] Name: ROBERT BRUCE Rep #:[id number] : 1960 62 From: Steven Voss MD PCP: Dr. Milind Lamb MD Status:REG E R Location: ED HPI History of Present Illness Chief Complaint: Shortness of Breath Detail of Chief Complaint: Dyspnea, thirst, polyuria, bilateral blurred vision, elevated blood sugar Informant: patient and family Onset/Context/Timing Onset: Days (Symptoms started proxy 2 days ago) Context: Sudden Onset Timing: Continuous Quality: Symptoms of hyperglycemia/DKA Location: Endocrine, generalized Current Severity: Moderate Maximum Severity: Moderate Worsened by: Unknown Relieved by: Nothing Associated Symptoms Associated Symptoms: Nausea, shortness of breath, and per HPI Narrative Narrative: Patient is a 62-year-old type II diabetic requiring insulin. She was in DKA 1 year ago. She presents with dyspnea, by ocular blurred vision, thirst, dry mouth, polyuria, polydipsia, shortness of breath. She denies abdominal pain. She denies fever, chills night sweats. She does have a superficial burn to the volar surface of her right forearm. This occurred 3 days ago at work. There isno evidence of infection. She denies headache, double vision or loss of vision. She has ringing ears decreased hearing. She denies rhinorrhea, congestion postnasal drainage sore throat. She denies cough. She denies chest discomfort. She denies abdominal pain. She denies vomiting or diarrhea. She denies dysuria or hematuria. She does report the rash due to burn otherwise negative. Prior similar symptoms: Yes (Approxi-1 year ago) Recent Illness/Hospitalization: No PFSH PFSH Medical History Anxiety and depression COVID-19 Diabetes Diabetes mellitus, type 2 ETOH abuse GERD (gastroesophageal reflux disease) HTN (hypertension) Hypokalemia Tobacco use Home Medications lisinopril 2.5 mg tablet 2.5 mg PO DAILY 07/14/19 [History Last Taken Unknown] sertraline 50 mg tablet 100 mg PO DAILY 07/14/19 [History Last Taken Unknown] flash glucose sensor (FreeStyle Moncho 2 Sensor kit) #2 ea 04/11/22 [Rx Last Taken Unknown] glimepiride 2 mg tablet 2 mg PO BID #60 tabs 04/11/22 [Rx Last Taken Unknown] insulin glargine U-300 conc 300 unit/mL (3 mL) subcutaneous pen (Toujeo Max U- 300 SoloStar) 20 unit (0.0667 mL) subcut DAILY #3 mL 04/11/22 [Rx Last Taken Unknown] metformin 1,000 mg tablet 1,000 mg PO BID #60 tabs 04/11/22 [Rx Last Taken Unknown] pen needle, diabetic 32 gauge x 5/32 (BD Ultra-Fine Josefina Pen Needle) #50 ea 04/11/22 [Rx Last Taken Unknown] guaifenesin 600 mg tablet, extended release 12 hr (Mucinex) 600 mg PO Q12H PRN congestion #14 tabs 05/03/22 [Rx Last Taken Unknown] Allergy/AdvReac Type Severity Reaction Status Date / Time No Known Allergies Allergy Verified 07/26/22 11:15 Family History Mother Diabetes Father Diabetes Cancer Hx mesothelioma. Surgical History No history of previous surgery Social History household members: other details: Lives with her son. Her son is also an alcoholic. Smoking Status: Former smoker alcohol intake: current alcohol intake frequency: 3 or more drinks per day details: Reports at least 4 beers daily, not forthcoming with use details. substance use type: does not use ROS ROS ED Constitutional Constitutional ED: Denies chills, fever(s), subjective, sweats or weight loss Eyes Eyes: Reports blurry vision bilateral; Denies change in vision or diplopia ENT ENT ED: Denies ear pain, rhinorrhea or sore throat Cardiovascular Cardiovascular: Denies chest pain, orthopnea, palpitations, paroxysmal nocturnaldyspnea or racing heartbeat Respiratory/Chest Respiratory/Chest: Reports dyspnea; Denies cough, dyspnea on exertion, orthopneaor paroxysmal nocturnal dyspnea Gastrointestinal Gastrointestinal: Reports nausea; Denies abdominal pain, constipation, diarrhea,melena or vomiting Genitourinary Genitourinary ED: Reports urinary frequency; Denies dysuria or hematuria Musculoskeletal Musculoskeletal: Denies arthralgias, back pain, myalgias or neck pain Integumentary Reports other Details: Additional documented HPI narrative ; Denies abscess, Abrasions or rash Neurologic Neurologic: Denies headache(s) or weakness Psychiatric Psychiatric: Denies anxiety Endocrine Endocrinology: Reports polydipsia and polyuria Hematologic/Lymphatic Hematologic/Lymphatic: Reports systems reviewed and no addt'l complaints, exceptas documented EXAM Physical Exam Const Vital Signs: 07/26/22 11:12 07/26/22 11:33 Temperature 98.0 F Temperature Source Temporal Pulse Rate 117 H Respiratory Rate 20 H Respiratory Effort Short of Breath Respiratory Pattern Tachypnea Blood Pressure 175/82 H Blood Pressure Mean 113 Pulse Ox 100 Oxygen Delivery Method Room Air Room Air Positive well nourished and well developed Constitutional Narrative: Patient appears ill. She is tachypneic. She has ketotic odor to her breath. General Appearance ED: well developed; Negative for cyanotic, diaphoretic or NAD HEENT Reports dry mucous membranes HEENT Narrative: Head is atraumatic normocephalic. Ears normal. TMs normal. Nares patent. Uvula midline. No erythema or exudate the posterior pharynx. Mouth ED: Yes dry mucous membranes Mouth: dry mucous membranes Eyes PERRL and EOMs intact bilaterally General Eye ED: Negative for pale conjunctiva or scleral icterus Neck no lymphadenopathy, supple and no JVD Chest Wall inspection of chest normal and palpation of chest normal Resp normal respiratory effort and clear to auscultation bilaterally Cardio regular rhythm, S1 normal heart sound, S2 normal heart sound and no murmurs Rate: tachycardic GI normal to inspection, nondistended, normoactive bowel sounds, non-tender, non-distended and no masses; Negative for hepatosplenomegaly Back/Spine no CVA tenderness Cervical Spine: Negative for cervical spine tenderness Thoracic Spine / Upper Back: Negative for thoracic spinal tenderness Lumbar Spine / Lower Back: Negative for lumbar spinal tenderness Extremity Negative for normal to inspection Extremity Narrative: Superficial/first-degree burn volar surface right forearm Neuro oriented x3, CN's II-XII intact bilaterally and no sensory deficits noted Sensorium / Orientation: alert Psych mental status grossly normal Skin no rashes or lesions noted, No no wounds and No skin turgor normal Skin Narrative: Previously done MDM MDM MDM Narrative Medical decision making narrative: With tachycardia, tachypnea, ketotic odor breath with elevated blood sugar and symptoms of hyperglycemia suspect patient is in DKA. Patient received 1 L of normal saline which is equivalent to 20 cc/kg. Will await blood results. Once fluids have infused we will start insulin if patient is in DKA as suspected. UAwas obtained to rule out urinary tract infection. CBC to assess white count differential. EKG to assess for cardiac ischemia and hyperkalemia. Patient records were reviewed. She was noted to be in DKA July 2021 and February 2022. Patient had BRITTNI with admission in July and COVID with admissionin February. Patient also has history of hypertension and depression. X-ray was not obtained since patient has no abnormal auscultatory findings and suspect her shortness of breath is due to DKA. Lab Data Attestation: I reviewed the patient's lab results. Lab results narrative: CBC and differential are unremarkable. PTT is greater than 500. Basic metabolic panel reveals a blood sugar of 686 with a CO2 of 6 and anion gap of 27. Creatinine is 1.32 with a GFR of 44. Additional fluids were ordered and insulin drip. Patient require admission to the ICU. Labs: Laboratory Results - last 24 hr 07/26/22 07/26/22 07/26/22 11:23 11:35 11:35 WBC 9.7 RBC 4.25 Hgb 12.5 Hct 38.1 MCV 89.6 MCH 29.4 MCHC 32.8 RDW Std Deviation 43.4 RDW Coeff of Nellie 13.2 Plt Count 234 MPV 12.0 Immature Gran % (Auto) 2.300 H Neut % (Auto) 79.8 H Lymph % (Auto) 12.1 L [place] % (Auto) 5.0 Eos % (Auto) 0.1 Baso % (Auto) 0.7 Absolute Neuts (auto) 7.7 Absolute Lymphs (auto) 1.17 Nucleated RBC % 0 Sodium 132 L Potassium 4.2 Chloride 99 Carbon Dioxide 6.0 L* Anion Gap 27 H BUN 14 Creatinine 1.32 H Estim Creat Clear Calc 37.49 Est GFR (MDRD) Af Amer 53 L Est GFR (MDRD) Non-Af 44 L BUN/Creatinine Ratio 10.6 Glucose 686 H* Calcium 9.7 Magnesium 2.3 POC Glucose > 500 H* Rhythm Strip Rhythm Strip: Sinus Tach Rate: 122 Ectopy: None EKG Initial EKG: Attestation: I personally reviewed and interpreted this EKG as follows: Interpretation: Sinus Tachycardia (Heart rate is 111. VA interval is 188 ms. Cures duration 92 ms. QT duration during 26 ms. [place] is normal. There isartifact noted. There may be nonseptic ST-T wave changes.) Critical Care Time Critical Care Time: Yes Critical care time (excluding procedures): 30-74 minutes (32), Including time spent: (ObtainedHistory, physical, documentation, review of prior records, initiation of therapy laboratory results), Discussing w/Patient &/or Family/CareGiver, Discussing w/Consultants and Arranging Admission or Transfer Discharge Plan Dx/Rx/DC Orders Clinical Impression: Diabetic keto-acidosis, Sinus tachycardia, Elevated serum creatinine, Tachypnea Disposition Disposition: Acute Care Hospital [facility] What to do if you have Problems For any increased pain, shortness of breath, bleeding, nausea or vomiting, chestpain, or any unexpected problems, contact your Primary Care Provider. Call [facility] ([phone]) or report to the closest Emergency Room. Call 911 if necessary. 07/26/22 1218 <Electronically signed by Steven Voss MD> Cosigner Signature (if applicable): CC: Dr. Milind Lamb MD ~ Signed [facility] Work Phone: 1(510) 539-173311-01-2022 Hospital Discharge instructions Additional Instructions Use ywer-xcb-rgelxaw cold and flu medicine to help with your symptoms. You can use sugar-free cough drops. Use the inhaler given to you 1 to 2 puffs every 4-6 hours as needed for shortness of breath or cough. Drink lots of fluids.[facility] Work Phone: [phone]) 571-421010-28-2022 Hospital Discharge instructions Additional Instructions Use bkzt-lse-czftahx cold and flu medicine to help with your symptoms. You can use sugar-free cough drops. Use the inhaler given to you 1 to 2 puffs every 4-6 hours as needed for shortness of breath or cough. Drink lots of fluids.[facility] Work Phone: Discharge summary Author Dr. Ahumada [facility] July 28, 2022 2:09pm Note Date/Time July 28, 2022 2 :02pm [facility] Medical Records Department [address] [place] [address] Instructions for Home/Discharge Instructions 07/28/22 1402 MR#: [id number] Acct: [id number] Name: ROBERT BRUCE Rep #:[id number] : 1960 62 From: Sanjiv Ahumada DO PCP: Dr. Milind Lamb MD Status:ADM I N Discharge Instructions Diet Discharge Diet: 2000 Calorie Control Diet Follow Up Care Test Results: Test results from this visit will be discussed in further detail at your follow- up appointment, if applicable. Discharge Plan Admission Admit Date/Time: 07/26/22 13:09 Primary Reason for Your Visit: DKA Attending Provider: Sanjiv Ahumada Primary Care Provider: Milind Lamb Discharge Orders/Prescriptions Prescriptions: New insulin lispro [Humalog KwikPen Insulin] 100 unit/mL Insulin Pen 6 unit subcut TIDAC Qty: 15 0RF (DME) lancets [FreeStyle Lancets] 28 gauge misc See Rx Instructions .Route Qty: 100 0RF Rx Instructions: As directed (DME) FreeStyle Test Strip See Rx Instructions .Route Qty: 100 0RF Rx Instructions: As directed Continued lisinopril 2.5 mg tablet 2.5 mg PO DAILY (DME) FreeStyle Moncho 2 Sensor Kit See Rx Instructions .Route Qty: 2 5RF Rx Instructions: As directed sertraline 100 mg tablet 100 mg PO DAILY naproxen 500 mg tablet 500 mg PO DAILY PRN (Reason: Pain) (DME) pen needle, diabetic [BD Ultra-Fine Josefina Pen Needle] 32 gauge x 5/32 needle See Rx Instructions .ROUTE .MEDSUPPLY Qty: 50 5RF Rx Instructions: daily Changed Toujeo Max U-300 SoloStar 300 unit/mL (3 mL) insulin pen 20 unit subcut BID Qty: 6 0RF Discontinued glimepiride 2 mg tablet 2 mg PO BID metformin 1,000 mg tablet 1,000 mg PO BID Referrals / Follow Up: [facility] [Provider Group] - Within 1 Month Milind Lamb MD [Primary Care Provider] - Within 2 Weeks Disposition Disposition (needs filled in before D/C Order can be placed): Home, Self Care 07/28/22 1409<Electronically signed by Sanjiv Ahumada DO>Sanjiv Ahumada DO CC: Dr. Milind Lamb MD ~ Signed [facility] Work Phone: Discharge summary Author Dr. Ahumada [facility] July 28, 2022 2:11pm Note Date/Time July 28, 2022 2 :11pm [facility] Medical Records Department [address] [place] [id number] Discharge Summary 07/28/22 140 MR#: [id number] Acct: [id number] Name: MILTON العراقيRA Winkler Rep #:[id number] : 1960 62 From: Sanjiv Ahumada DO PCP: Dr. Milind Lamb MD Status:ADM I N Location: [facility] DP833-2 Providers Date of Admission: 07/26/22 Date of Discharge: 07/28/22 Primary Care Physician: Dr. Milind Lamb MD Reason For Visit: DKA Diagnosis Discharge Diagnosis (1) Diabetic keto-acidosis: Status: Acute Code(s): E11.10 - Type 2 diabetes mellitus with ketoacidosis without coma Plan: Resolved with Insulin drip and IV fluids Resume basal and prandial insulin Patient is described as a type II diabetic. Will hold off on any further glimepiride and metformin. A1c greater than 14, so clearly, patient is uncontrolled chronically. (2) BRITTNI (acute kidney injury): Status: Resolved Code(s): N17.9 - Acute kidney failure, unspecified Plan: Resolved. Likely due to prerenal azotemia as patient was having polyuria and polydipsia. IV fluids Follow-up (3) Hypokalemia: Status: Acute Code(s): E87.6 - Hypokalemia Plan: Likely due to severe chronic depletion Mag normal at 2.3 Replace Plan VTE prophylaxis with enoxaparin. Will monitor the patient overnight as I am changing her insulin protocol and discontinuing her oral agents. Medications at Discharge Home Medications lisinopril 2.5 mg tablet 2.5 mg PO DAILY blood pressurre 07/14/19 flash glucose sensor (FreeStyle Moncho 2 Sensor kit) #2 ea 04/11/22 naproxen 500 mg tablet 500 mg PO DAILY PRN Pain 07/26/22 sertraline 100 mg tablet 100 mg PO DAILY depression 07/26/22 blood sugar diagnostic (FreeStyle Test strips) #100 ea 07/28/22 insulin glargine U-300 conc 300 unit/mL (3 mL) subcutaneous pen (Toujeo Max U- 300 SoloStar) 20 unit (0.0667 mL) subcut BID diabetes #6 mL 07/28/22 insulin lispro 100 unit/mL subcutaneous pen (Humalog KwikPen (U-100) Insulin) 6 unit (0.06 mL) subcut TIDAC #15 mL 07/28/22 lancets 28 gauge (FreeStyle Lancets) #100 ea 07/28/22 pen needle, diabetic 32 gauge x 5/32 (BD Ultra-Fine Josefina Pen Needle) #50 ea 07/28/22 Hospital Course Operations None Procedures None Summary of Care Provided Minutes Spent on Discharge: 35 Hospital Course: 8-year-old female presents with diabetic ketoacidosis. Patient was taking basalinsulin but also metformin and glimepiride. Patient's A1c was 14. Patient was put on insulin drip and eventually switched over to basal insulin. Thus changedover to twice daily rather than the once daily she was taking at home. Also addprandial insulin as well. Patient advised to discontinue the metformin as well as glimepiride and continue with insulin regimen and check her blood sugar 3 times daily. Also recommend the patient follow-up with endocrinology in regardsto further diabetes management. Physical Exam Const alert and no apparent distress Resp normal respiratory effort, no retractions, no use of accessory muscles and clearto auscultation bilaterally Cardio regular rate, regular rhythm, S1 normal heart sound and S2 normal heart sound GI normal to inspection, nondistended, normoactive bowel sounds, soft to palpation,non-tender and non-distended Medical Records Data Medical Nutrition Assessment Dietitian: Malnutrition Criteria Met Start: 07/26/22 15:35 Freq: Status: Active Protocol: Document 07/26/22 15:35 [facility] (Rec: 07/26/22 15:35 [facility] [id number]) Nutrition Malnutrition Evidence of Malnutrition Exists Yes Malnutrition (severe): Acute Illness/Injury Evidenced By Suboptimal Energy Intake ( Severe),Weight Loss (Severe), Physical Changes (Moderate) Clinical Problem Acute Disease or Injury Related Malnutrition Etiology related to increased stress and irregular eating Signs/Symptoms as evidenced by 8.6% wt loss and consuming less than 50% of est nutritional needs x 2 wks - also w/ fat/muscle loss in face, clavicles, scapula, arms Status Active Problem Altered Nutrient-Related Laboratory Values Etiology related to diabetes Signs/Symptoms as evidenced by gluc 686 at time of adm Status Active Problem Recommendation Dietitian Recommendations/Changes As medically able, rec SARWAT to Consistent CHO As medically able, rec 4 oz glucerna shake 4x/day w/ medpass Will provide diet education to pt prior to discharge as indicated by pt. Weight / BMI Weight Weight: 49.4 kg Body Mass Index (BMI) 19.3 ABG / Lab / Microbiology Data Result Diagrams: 07/27/22 05:45 07/28/22 05:33 Laboratory: Laboratory Results - last 24 hr 07/27/22 16:47: POC Glucose 233 H 07/27/22 21:23: POC Glucose 198 H 07/28/22 05:33: Sodium 141, Potassium 2.5 L*, Chloride 114 H, Carbon Dioxide 20.0 L, Anion Gap 7, BUN 8, Creatinine 0.59, Estim Creat Clear Calc 79.08, Est GFR (MDRD) Af Amer 135, Est GFR (MDRD) Non-Af 111, BUN/Creatinine Ratio 13.7, Glucose 80, Calcium 8.8 07/28/22 07:52: POC Glucose 57 L 07/28/22 08:23: POC Glucose 106 07/28/22 12:06: POC Glucose 248 H D/C Instructions Discharge Diet: 1999 Calorie Control Diet Meaningful Use Info Meaningful Use Diagnoses (Choose all that apply): None applicable Discharge Plan Admission Admit Date/Time: 07/26/22 13:09 Primary Reason for Your Visit: DKA Attending Provider: Sanjiv Ahumada Primary Care Provider: Milind Lamb Discharge Orders/Prescriptions Prescriptions: New insulin lispro [Humalog KwikPen Insulin] 100 unit/mL Insulin Pen 6 unit subcut TIDAC Qty: 15 0RF (DME) lancets [FreeStyle Lancets] 28 gauge misc See Rx Instructions .Route Qty: 100 0RF Rx Instructions: As directed (DME) FreeStyle Test Strip See Rx Instructions .Route Qty: 100 0RF Rx Instructions: As directed Continued lisinopril 2.5 mg tablet 2.5 mg PO DAILY (DME) FreeStyle Moncho 2 Sensor Kit See Rx Instructions .Route Qty: 2 5RF Rx Instructions: As directed sertraline 100 mg tablet 100 mg PO DAILY naproxen 500 mg tablet 500 mg PO DAILY PRN (Reason: Pain) (DME) pen needle, diabetic [BD Ultra-Fine Josefina Pen Needle] 32 gauge x 5/32 needle See Rx Instructions .ROUTE .MEDSUPPLY Qty: 50 5RF Rx Instructions: daily Changed Toujeo Max U-300 SoloStar 300 unit/mL (3 mL) insulin pen 20 unit subcut BID Qty: 6 0RF Discontinued glimepiride 2 mg tablet 2 mg PO BID metformin 1,000 mg tablet 1,000 mg PO BID Referrals / Follow Up: [facility] [Provider Group] - Within 1 Month Milind Lamb MD [Primary Care Provider] - Within 2 Weeks Disposition Disposition (needs filled in before D/C Order can be placed): Home, Self Care Charges/Coding Visit Charges Inpatient E&M: 70821 Disch Hosp >30min 07/28/22 1411 <Electronically signed by Sanjiv Ahumada DO> Cosigner Signature (if applicable): CC: Dr. Sanjiv Ahumada DO; Dr. Milind Lamb MD~ Signed [facility] Work Phone: Evaluation note* Diagnosis Onset Date Resolution Status Acute dehydration acute Acute kidney injury acute DKA (diabetic ketoacidosis) acute History of alcoholism acute Pancreatitis acute [facility] Work Phone: Evaluation note* Diagnosis Onset Date Resolution Status DKA (diabetic ketoacidosis) acute History of alcoholism acute Acute dehydration resolved Acute kidney injury resolved Pancreatitis resolved Diabetes acute Hypokalemia acute [facility] Work Phone: Evaluation note* Diagnosis Onset Date Resolution Status Diabetes acute Hypokalemia acute Diabetic keto-acidosis acute Elevated serum creatinine ac [place] Sinus tachycardia acute Tachypnea acute [facility] Work Phone: Evaluation note* Diagnosis Onset Date Resolution Status Diabetes acute Hypokalemia acute Diabetic keto-acidosis acute Elevated serum creatinine ac [place] Hypokalemia acute Sinus tachycardia acute Tachypnea acute BRITTNI (acute kidney injury) re solved [facility] Work Phone: Evaluation noteNo assessment information available [facility] Work Phone: Evaluation note* Diagnosis Onset Date Resolution Status Back pain acute Diabetic ketoacidosis associ ated with type 1 diabetes mellitus acute Elevated serum creatinine ac [place] Pyuria acute Sinus tachycardia by electrocardiogram acute [facility] Work Phone: Evaluation note* Diagnosis Onset Date Resolution Status Diabetic keto-acidosis resol yin Elevated serum creatinine re solved Sinus tachycardia by electrocardiogram resolved [facility] Work Phone: Hospital Discharge instructions Additional Instructions Is obviously very important to manage your diabetes correctly. Make sure you are taking your medications. You may try speaking with your doctor for assistance in getting coverage or your medications. I have provided a good Rx card for you. Back pain in the setting of uncontrolled diabetes can be multifactorial. If you are developing any new neurologic symptoms (weakness numbness) or fever rash or worsening. Please return to emergency room for repeat examination.[facility] Work Phone: Reason for referral (narrative)No reason for referral information availableWKet[facility] Work Phone: Summary Purpose Family History No Family History Records Found Relationship Condition Age at Onset Recorded Date/T afia mother Diabetes mellitus Unknown father Diabetes mellitus Unknown Malignant neoplasm Unknown Advance Directives No Advanced Directives Records Found Advance Directive Response Recorded Date/ Time Living Will No March 03 8:17pm Power of Security Officer Supervisor No March 03, 2 022 8:17pm Advance Directive Response Recorded Date/ Time Living Will No May 03 6:14am Power of Security Officer Supervisor No May 03, 2022 6:14am Advance Directive Response Recorded Date/ Time Living Will No July 26 11:33am Power of Security Officer Supervisor No July 26, 2022 11:33am Advance Directive Response Recorded Date/ Time Living Will No July 26 2:20pm Power of Security Officer Supervisor No July 26, 2022 2:20pm Advance Directive Response Recorded Date/ Time Living Will No July 01, 2 023 12:05am Power of Security Officer Supervisor No July 01, 2023 12:05am Advance Directive Response Recorded Date/ Time Living Will No July 02, 2 023 8:26am Power of Security Officer Supervisor No July 02, 2023 8:26am Advance Directive Response Recorded Date/ Time Living Will No July 02, 2 023 7:15pm Power of Security Officer Supervisor No July 02, 2023 7:15pm Advance Directive Response Recorded Date/ Time Living Will No July 29 1:01pm Power of Security Officer Supervisor No July 29, 2023 1:01pm Chief Complaint and Reason for Visit Chief Complaint DKA, EtOH ABUSE, MIGUEL CREATITIS DKA, EtOH ABUSE, PANCREATITIS DKA, EtOH ABUSE, PANCREATITIS DKA, EtOH ABUSE, PANCREATITIS DKA, EtOH ABUSE, PANCREATITIS DKA, EtOH ABUSE, PANCREATITIS DKA, EtOH ABUSE, PANCREATITIS Reason for Visit Acute dehydration Acute kidney injury DKA (diabetic ketoacidosis) History of alcoholism Pancreatitis Chief Complaint DKA, EtOH ABUSE, MIGUEL CREATITIS DKA, EtOH ABUSE, PANCREATITIS DKA, EtOH ABUSE, PANCREATITIS DKA, EtOH ABUSE, PANCREATITIS DKA, EtOH ABUSE, PANCREATITIS DKA, EtOH ABUSE, PANCREATITIS DKA, EtOH ABUSE, PANCREATITIS Diabetes/ ICU FU E ORDER Reason for Visit DKA (diabetic ketoac idosis) History of alcoholism Acute dehydration Acute kidney injury Pancreatitis Diabetes Hypokalemia Chief Complaint DKA, EtOH ABUSE, MIGUEL CREATITIS DKA, EtOH ABUSE, PANCREATITIS DKA, EtOH ABUSE, PANCREATITIS DKA, EtOH ABUSE, PANCREATITIS DKA, EtOH ABUSE, PANCREATITIS DKA, EtOH ABUSE, PANCREATITIS DKA, EtOH ABUSE, PANCREATITIS Diabetes/ ICU FU E ORDER general illness Reason for Visit DKA (diabetic ketoac idosis) History of alcoholism Acute dehydration Acute kidney injury Pancreatitis Diabetes Hypokalemia Chief Complaint Diabetes/ ICU FU E ORDER general illness DKA Reason for Visit Diabetes Hypokalemia Diabetic keto-acidosis Elevated serum creatinine Sinus tachycardia Tachypnea Chief Complaint Diabetes/ ICU FU E ORDER general illness DKA DKA DKA DKA Reason for Visit Diabetes Hypokalemia Diabetic keto-acidosis Elevated serum creatinine Hypokalemia Sinus tachycardia Tachypnea BRITTNI (acute kidney injury) Chief Complaint BACK Chief Complaint BACK back Chief Complaint BACK back DKI Reason for Visit Back pain Diabetic ketoacidosis associated with type 1 diabetes mellitus Elevated serum creatinine Pyuria Sinus tachycardia by electrocardiogram Chief Complaint BACK back DKI DKA DKA DKA DKA DKA HYPERGLYCEMIA Reason for Visit Diabetic keto-acidos is Elevated serum creatinine Sinus tachycardia by electrocardiogram Chief Complaint Admit Date PE NON DOT DRUG SCREEN/ [facility] July 16, 2024 11:46am Additional Source Comments INFORMATION SOURCE (unrecogn ized section and content) DATE CREATED AUTHOR 07/29/2018 [facility] ([place]) DATE CREATED AUTHOR AUTHOR'S ORGANIZ ATION [facility]/[address] Care Teams (unrecognized sec tion and content) Team Status: Active Member Role Status Dates Dr. Milind Lamb MD Family Provider Active Dr. Milind Lamb MD Primary Care Provider Active Team Status: Inactive Member Role Status Dates Dr. Milind Lamb MD Primary Care Provider, Referring Provider Active Dr. Wilfrido Mcclendon MD Attending Provider Active Team Status: Inactive Member Role Status Dates Dr. Milind Lamb MD Primary Care Provider Active Dr. Wilfrido Mcclendon MD Attending Provider Active Team Status: Inactive Member Role Status Dates Dr. Milind Lamb MD Primary Care Provider Active Dr. Nola Gleason DO Attending Provider, Emergency P delmis Active Team Status: Active Member Role Status Dates Dr. Milind Lamb MD Primary Care Provider Active Dr. Steven Voss MD Emergency Provider Active Dr. Sanjiv Ahumada DO Admit Provider, Attending Provid er Active Team Status: Active Member Role Status Dates Dr. Milind Lamb MD Primary Care Provider Active Dr. Steven Voss MD Emergency Provider Active Dr. Sanjiv Ahumada DO Admit Provider, Attending Provid er, Other Provider Active Team Status: Inactive Member Role Status Dates Dr. Milind Lamb MD Primary Care Provider Active Dr. Steven Voss MD Emergency Provider Active Dr. Sanjiv Ahumada DO Admit Provider, Attending Provid er Active Team Status: Inactive Member Role Status Dates Dr. Milind Lamb MD Primary Care Provider, Attending Provider Active Team Status: Inactive Member Role Status Dates Dr. Milind Lamb MD Primary Care Provider Active Dr. Aleksandar Rebolledo DO Emergency Provider Active Team Status: Inactive Member Role Status Dates Dr. Milind Lamb MD Primary Care Provider Active Dr. Willie Lundberg DO Emergency Provider Active Team Status: Active Member Role Status Dates Dr. Milind Lamb MD Primary Care Provider Active Dr. Steven Voss MD Emergency Provider Active Dr. Torsten Sutton DO Admit Provider, Attending Provider Active Team Status: Active Member Role Status Dates Dr. Milind Lamb MD Primary Care Provider Active Dr. Steven Voss MD Emergency Provider Active Dr. Torsten Sutton DO Admit Provi aelyda, Attending Provider, Other Provider Active Team Status: Active Member Role Status Dates Dr. Milind Lamb MD Primary Care Provider Active Dr. Steven Voss MD Emergency Provider Active Dr. Torsten Sutton DO Admit Provider, Other Pro vider Active Dr. Sanjana Quigley MD Attending Provider, Other Prov ider Active Team Status: Inactive Member Role Status Dates Dr. Milind Lmab MD Primary Care Provider Active Dr. Willie Lundberg DO Attending Provider, Emergency Pro vider Active Team Status: Inactive Member Role Status Dates Dr. Milind Lamb MD Primary Care Provider Active Dr. Steven Voss MD Emergency Provider Active Dr. Torsten Sutton DO Admit Provider, Other Pro vider Active Dr. Sanjana Quigley MD Attending Provider Active Team Status: Inactive Member Role Status Dates Dr. Milind Lamb MD Primary Care Provider Active Dr. Reece Smith MD Emergency Provider Active Team Status: Inactive Member Role Status Dates Dr. Milind Lamb MD Primary Care Provider Active Dr. Aleksandar Rebolledo DO Attending Provider, Emergency P delmis Active Team Status: Active Member Role Status Dates Dr. Milind Lamb MD Primary Care Provider, Attending Provider Active Team Status: Inactive Member Role Status Dates Dr. Milind Lamb MD Primary Care Provider Active Dr. Reece Smith MD Attending Provider, Emergency Provider Active Team Status: Inactive Member Role Status Dates Dr. Milind Lamb MD Primary Care Provider Active Start: July 16, 2024 End: July 16, 2024 Dr. Milind Lamb MD Referring Provider Active Start: July 16, 2024 End: July 16, 2024 PANKAJ Forde Attending Provider Active Sta rt: July 16, 2024 End: July 16, 2024 Team Status: Inactive Member Role Status Dates Dr. Milind Lamb MD Primary Care Provider Active Start: July 20, 2024 End: July 20, 2024 Dr. Milind Lamb MD Attending Provider Active Start: July 20, 2024 End: July 20, 2024 Dr. Milind Lamb MD Referring Provider Active Start: July 20, 2024 End: July 20, 2024 Team Status: Inactive Member Role Status Dates Dr. Milind Lamb MD Primary Care Provider Active Start: October 18, 2024 End: October 18, 2024 Dr. Milind Lamb MD Attending Provider Active Start: October 18, 2024 End: October 18, 2024 Dr. Milind Lamb MD Referring Provider Active Start: October 18, 2024 End: October 18, 2024 Goals (unrecognized section and content) Goals may be documented in a n alternate sectionGoals may be documented in an alternate sectionGoals may be documented in an alternate sectionGoals may be documented in an alternate sectionGoals may be documented in an alternate sectionGoals may be documented in an alternate section FOR RECORDS PERTAINING TO PATIENTS WHO ARE [...] BE BASED ON THE PRIMARY CLINICAL RECORDS. [employer] provides no warranty or guarantee of the accuracy or completeness of information in this document.
[2024-12-09 00:43] LABS: Magnesium 2.2 mg/dL (1.5-2.2); Phosphorus 4.7 mg/dL (2.7-4.5)
[2024-12-09 00:56] LABS: Bedside Glucose 156 mg/dL (74-106)
[2024-12-09] MEDS: 0.9% Saline Lock 10 ML Syringe IV (01:40)
[2024-12-09] MEDS: Pantoprazole Sodium 40 MG in 0.9% Normal Saline (100mL MB+) 100 ML 330 MG IV ×3 (01:40→22:31)
[2024-12-09 02:09] LABS: Anion Gap 17 (5-15); BUN 21 mg/dL (4-19); BUN/Creat Ratio 20.6 RATIO (10-20); Calcium,Total 9.5 mg/dL (7.6-11.0); Carbon Dioxide 16.8 mmol/L (21.0-32.0); Chloride 101 mmol/L (98-108); Creatinine, Serum 1.04 mg/dL (0.70-1.20); EST Glomerular Filtration Rate 61 (>60); Glucose 139 mg/dL (70-99); Potassium 3.8 mmol/L (3.3-5.1); Procalcitonin 0.08 ng/mL (<=0.10); Sodium Level 134 mmol/L (133-145)
[2024-12-09] MEDS: Dext 5%-0.45% NS 1,000 ML 150 ML IV (02:40)
--- OUTSIDE RECORDS SUMMARY | 2024-12-09 03:02 | XMS RPT_ITS | CCD ---
Author Organization [facility] CliniSysc Care Team Providers Care Co Founder And Ceo Name Role Phone SUMMER ALVES Attending Unavailable [...] Adonis RICH, Dr. Vaz Primary Care Provider Adonis RICH, Dr. Vaz Referring Provider Nasir Norris Attending Provider Adonis RICH, Dr. Vaz Attending Provider Harry Medrano Consulting Unavailable Harry Medrano Admitting Unavailable KoHarry nieto F Attending Unavailable Lamb, Milind Primary [...] Start: 03-01-2024 take 2 tablets by mo [facility] once daily Lisinopril 2.5 mg tablet Active [...] Random Microalbumin 34.1 mg/L NO RANGE EST. [facility] Anion gap in Serum or Plasma Ordered By: Milind Lamb on 10-18-2024 Anion gap [Moles/Vol] 14 mmol/L 11-18 [facility] BUN/creatinine ratioOrdered By: Milind Lamb on 10-18-2024 Urea nitrogen/Creatinine [Mass ratio] 12.4 mg/mg 04-[address] [facility] Bilirubin, totalOrdered By: Milind Lamb on 10-18-2024 Bilirubin [Mass/Vol] 0.28 mg/dL 0.00-1.30 [facility] Calculated very low density lipoprotein (VLDL) cholesterol measurementOrdered By: Milind Lamb on 04-14-2025 VLDL Cholesterol 23 mg/dL 5-[address] [facility] Carbon dioxide, total [Moles /volume] in Central venous bloodOrdered By: Milind Lamb on 10-18-2024 CO2 [Moles/Vol] 23.5 mmol/L 21.0-32.[address] [facility] Chloride assayOrdered By: Pankaj Lamb on 10-18-2024 Chloride [Moles/Vol] 100 mmol/L 98-108 [facility] Comprehensive Metabolic Prof ilon 10-18-2024 Albumin [Mass/Vol] 4.7 g/dL Normal 3.4-4.8 [facility] Comment on above: Performed By: #### L 502.0250, L500.4100, L500.4050 ####[facility] [address] [place], [address] Albumin/Globulin [Mass ratio] 1.4 {ratio} Normal 0.9-2.[address] [facility] Comment on above: Performed By: #### L 502.0250, L500.4100, L500.4050 ####[facility] [address] [place], [address] ALK PHOS 94 U/L Normal 35-[address] [facility] Comment on above: Performed By: #### L 502.0250, L500.4100, L500.4050 ####[facility] [address] [place], [address] ALT [Catalytic activity/Vol] 10 U/L Normal <=[address] [facility] Comment on above: Performed By: #### L 502.0250, L500.4100, L500.4050 ####[facility] [address] [place], [address] AST [Catalytic activity/Vol] 13 U/L Normal <=[address] [facility] Comment on above: Performed By: #### L 502.0250, L500.4100, L500.4050 ####[facility] [address] [place], [address] Bilirubin [Mass/Vol] 0.28 mg/dL Normal 0.00-1.30 [facility] Comment on above: Performed By: #### L 502.0250, L500.4100, L500.4050 ####[facility] [address] [place], [address] BUN/CRE 12.4 RATIO Normal 10-[address] [facility] Comment on above: Performed By: #### L 502.0250, L500.4100, L500.4050 ####[facility] [address] [place], [address] Calcium [Mass/Vol] 10.3 mg/dL Normal 7.6-11.0 [facility] Comment on above: Performed By: #### L 502.0250, L500.4100, L500.4050 ####[facility] [address] [place], [address] Chloride [Moles/Vol] 100 mmol/L Normal 98-108 [facility] Comment on above: Performed By: #### L 502.0250, L500.4100, L500.4050 ####[facility] [address] [place], [address] CO2 [Moles/Vol] 23.5 mmol/L Normal 21.0-32.[address] [facility] Comment on above: Performed By: #### L 502.0250, L500.4100, L500.4050 ####[facility] [address] [place], [address] Creatinine [Mass/Vol] 0.94 mg/dL Normal 0.70-1.20 [facility] Comment on above: Performed By: #### L 502.0250, L500.4100, L500.4050 ####[facility] [address] [place], [address] GAP 14 Normal 5-[address] [facility] Comment on above: Performed By: #### L 502.0250, L500.4100, L500.4050 ####[facility] [address] [place], [address] GFR/1.73 sq M.predicted among non-blacks MDRD (S/P/Bld) [Vol rate/Area] 68 mL/min/{1.73_m2} Normal >[address] [facility] Comment on above: Result Comment: mL/m in/1.73m2 CKD-EPI Creatinine Equation (2020) Performed By: #### L 502.0250, L500.4100, L500.4050 ####[facility] [address] [place], [address] Globulin (S) [Mass/Vol] 3.3 g/dL Normal 2.2-4.2 [facility] Comment on above: Performed By: #### L 502.0250, L500.4100, L500.4050 ####[facility] [address] [place], [address] Glucose [Mass/Vol] 213 mg/dL High 70-99 [facility] Comment on above: Performed By: #### L 502.0250, L500.4100, L500.4050 ####[facility] [address] [place], [address] Potassium [Moles/Vol] 4.1 mmol/L Normal 3.3-5.1 [facility] Comment on above: Performed By: #### L 502.0250, L500.4100, L500.4050 ####[facility] [address] [place], [address] Sodium [Moles/Vol] 137 mmol/L Normal 133-145 [facility] Comment on above: Performed By: #### L 502.0250, L500.4100, L500.4050 ####[facility] [address] [place], [address] T PROT 8.1 g/dL Normal 5.9-8.[address] [facility] Comment on above: Performed By: #### L 502.0250, L500.4100, L500.4050 ####[facility] [address] [place], [address] Urea nitrogen [Mass/Vol] 12 mg/dL Normal 4-[address] [facility] Comment on above: Performed By: #### L 502.0250, L500.4100, L500.4050 ####[facility] [address] [place], [address] Creatinine Unsp time (U) [Ma ss/Vol]Ordered By: Milind Lamb on 10-18-2024 Creatinine (U) [Mass/Vol] 168.00 mg/dL 28.00-217.[address] [facility] GFR/1.73 sq M.predicted raoul g non-blacks MDRD (S/P/Bld) [Vol rate/Area]Ordered By: Milind Lamb on 10-18-2024 Estimated GFR (MDRD) Non-Af Amer [address] [facility] Comment on above: mL/min/1.73m2 CKD-EP I Creatinine Equation (2020) LDL calc ser/plasOrdered By: Milind Lamb on 10-18-2024 LDL Cholesterol, Calculated 136 mg/dL [facility] Comment on above: Dycxzzroik=888-896 m g/dL & Higher Atml=850 mg/dL or greater Laboratory - Chemistry and C hemistry - challengeOrdered By: Milind Lamb on 10-18-2024 AST [Catalytic activity/Vol] 13 U/L <[address] [facility] Lipid Profileon 10-18-2024 CHOL:HDL 3.[address] [facility] Comment on above: Performed By: #### L 502.0250, L500.4100, L500.4050 ####[facility] [address] [place], [address] Cholesterol [Mass/Vol] 233 mg/dL High <=200 [facility] Comment on above: Result Comment: Chol esterol level, Desirable <200 mg/dLBorderline high cholesterol 200-239 mg/dLHigh cholesterol >=240 mg/dLRecommendations of the NCEP Adult Treatment Panel for thefollowing risk-cutoff thresholds for the [place] [facility]. Performed By: #### L 502.0250, L500.4100, L500.4050 ####[facility] [address] [place], [address] Cholesterol in HDL [Mass/Vol] 74 mg/dL Normal [facility] Comment on above: Result Comment: Kamila onal Cholesterol Education Program (NCEP) guidelines:<40 mg/dL: Low HDL-cholesterol (major risk factor for CHD)>= 60 mg/dL: High HDL-cholesterol (negative risk factor forCHD)HDL-cholesterol is affected by a number of factors, e.g.smoking, exercise, hormones, sex and age. Performed By: #### L 502.0250, L500.4100, L500.4050 ####[facility] [address] [place], [address] Cholesterol in LDL [Mass/Vol] 136 mg/dL Normal [facility] Comment on above: Result Comment: Bord euibwn=796-855 mg/dL Higher Skne=752 mg/dL or greater Performed By: #### L 502.0250, L500.4100, L500.4050 ####[facility] [address] [place], [address] Cholesterol in VLDL [Mass/Vol] 23 mg/dL Normal 5-[address] [facility] Comment on above: Performed By: #### L 502.0250, L500.4100, L500.4050 ####[facility] [address] [place], [address] Triglyceride [Mass/Vol] 115 mg/dL Normal [facility] Comment on above: Result Comment: The drugs N-Acetylcysteine and Metamizole may falselydepress this assay.Normal range: <150 mg/dLBorderline High: 150-199 mg/dLHigh: 200-499 mg/dLVery High: >500 mg/dL Performed By: #### L 502.0250, L500.4100, L500.4050 ####[facility] [address] [place], [address] Microalb:Creat Ratio,Random URon 10-18-2024 Creatinine [Mass/Vol] 168.00 mg/dL Normal 28.00- 217.[address] [facility] Comment on above: Performed By: #### L 502.0250, L500.4100, L500.4050 ####[facility] [address] [place], [address] MALB:CREAT 203.0 mg/g CRE Normal [facility] Comment on above: Performed By: #### L 502.0250, L500.4100, L500.4050 ####[facility] [address] [place], [address] MICROALBUMIN,UR 34.1 mg/L Normal NO RANGE EST. [facility] Comment on above: Performed By: #### L 502.0250, L500.4100, L500.4050 ####[facility] [address] [place], [address] Microalbumin/creat ratio urO rdered By: Milind Lamb on 10-18-2024 Urine Microalbumin/Creatinine Ratio 203.0 mg/g CRE [facility] Potassium (Unsp spec) [Mass/ Vol]Ordered By: Milind Lamb on 10-18-2024 Potassium [Moles/Vol] 4.1 mmol/L 3.3-5.1 [facility] Screening total cholesterol/ high density lipoprotein (HDL) cholesterol ratioOrdered By: Milind Lamb on 10-18-2024 Cholesterol.total/Misa sterol in HDL [Mass ratio] 3.13 {ratio} [facility] Serum creatinine measurement (mass/volume)Ordered By: Milind Lamb on 10-18-2024 Creatinine [Mass/Vol] 0.94 mg/dL 0.70-1.20 [facility] Serum globulin measurementOr dered By: Milind Lamb on 10-18-2024 Globulin (S) [Mass/Vol] 3.3 g/dL 2.2-4.2 [facility] Serum glucose measurement (m ass/volume)Ordered By: Milind Lamb on 10-18-2024 Glucose [Mass/Vol] 213 mg/dL High 70-99 [facility] Serum or plasma alanine hargrove otransferase (ALT) measurementOrdered By: Milind Lamb on 10-18-2024 ALT [Catalytic activity/Vol] 10 U/L <[address] [facility] Serum or plasma albumin jn urement (mass/volume)Ordered By: Milind Lamb on 10-18-2024 Albumin [Mass/Vol] 4.7 g/dL 3.4-4.8 [facility] Serum or plasma albumin/glob ulin mass ratioOrdered By: Milind Lamb on 10-18-2024 Albumin/Globulin [Mass ratio] 1.4 {ratio} 0.9-2.[address] [facility] Serum or plasma alkaline regis sphatase measurementOrdered By: Milind Lamb on 10-18-2024 ALP [Catalytic activity/Vol] 94 U/L 35-[address] [facility] Serum or plasma calcium jn urement (mass/volume)Ordered By: Milind Lamb on 10-18-2024 Calcium [Mass/Vol] 10.3 mg/dL 7.6-11.0 [facility] Serum or plasma cholesterol in HDL measurement (mass/volume)Ordered By: Milind Lamb on 10-18-2024 Cholesterol in HDL [Mass/Vol] 74 mg/dL >[address] [facility] Comment on above: National Cholesterol Education Program (NCEP) guidelines:<40 mg/dL: Low HDL-cholesterol (major risk factor for CHD)>= 60 mg/dL: High HDL-cholesterol (negative risk factor for CHD)HDL-cholesterol is affected by a number of factors, e.g. smoking, exercise, hormones, sex and age. Serum or plasma cholesterol measurement (mass/volume)Ordered By: Milind Lamb on 10-18-2024 Cholesterol [Mass/Vol] 233 mg/dL High <201 [facility] Comment on above: Cholesterol level, D esirable <200 mg/dLBorderline high cholesterol 200-239 mg/dLHigh cholesterol >=240 mg/dLRecommendations of the NCEP Adult Treatment Panel for the following risk-cutoff thresholds for the [place] population. Serum or plasma urea nitroge n measurement (mass/volume)Ordered By: Milind Lamb on 10-18-2024 Urea nitrogen [Mass/Vol] 12 mg/dL 4-[address] [facility] Sodium levelOrdered By: Milind Lamb on 10-18-2024 Sodium [Moles/Vol] 137 mmol/L 133-145 [facility] Total proteinOrdered By: Bri Lamb on 10-18-2024 Protein [Mass/Vol] 8.1 g/dL 5.9-8.4 [facility] Triglycerides measurementOrd ered By: Milind Lamb on 10-18-2024 Triglyceride [Mass/Vol] 115 mg/dL <199 [facility] Comment on above: The drugs N-Acetylcy steine and Metamizole may falsely depress this assay. Normal range: <150 mg/dLBorderline High: 150-199 mg/dLHigh: 200-499 mg/dLVery High: >500 mg/dL Office Visit Reporton 2024 Office Visit Report Normal [facility] Albumin to globulin ratioOrd ered By: Milind Lamb on 07-20-2024 Albumin/Globulin [Mass ratio] 1.0 {ratio} 0.9-2.[address] [facility] Bilirubin, totalOrdered By: Milind Lamb on 07-20-2024 Bilirubin [Mass/Vol] 0.50 mg/dL 0.20-1.00 [facility] Comment on above: For patients on eltr ombopag therapy, use of Dimension Dunbar TBIL is not recommended. Blood urea nitrogen (BUN)/cr eatinine ratioOrdered By: Milind Lamb on 07-20-2024 Urea nitrogen/Creatinine [Mass ratio] 23.7 mg/mg High 10-[address] [facility] Carbon dioxide measurementOr dered By: Milind Lamb on 07-20-2024 CO2 [Moles/Vol] 29.0 mmol/L 21.0-32.[address] [facility] Chloride measurementOrdered By: Milind Lamb on 07-20-2024 Chloride [Moles/Vol] 104 mmol/L 98-107 [facility] Comprehensive Metabolic Prof ilon 07-20-2024 Albumin [Mass/Vol] 3.7 g/dL Normal 3.2-5.0 [facility] Comment on above: Performed By: #### L 500.4100, L500.4050, L501.0900, L501.9985 ####[facility] [address] [place], [address] Albumin/Globulin [Mass ratio] 1.0 {ratio} Normal 0.9-2.[address] [facility] Comment on above: Performed By: #### L 500.4100, L500.4050, L501.0900, L501.9985 ####[facility] [address] [place], [address] ALK P 91 U/L Normal 45-[address] [facility] Comment on above: Performed By: #### L 500.4100, L500.4050, L501.0900, L501.9985 ####[facility] [address] [place], [address] ALT [Catalytic activity/Vol] 11 U/L Low 13-[address] [facility] Comment on above: Performed By: #### L 500.4100, L500.4050, L501.0900, L501.9985 ####[facility] [address] [place], [address] AST [Catalytic activity/Vol] 4 U/L Low 15-[address] [facility] Comment on above: Performed By: #### L 500.4100, L500.4050, L501.0900, L501.9985 ####[facility] [address] [place], [address] Bilirubin [Mass/Vol] 0.50 mg/dL Normal 0.20-1.00 [facility] Comment on above: Result Comment: For patients on eltrombopag therapy, use of Dimension Dunbar TBIL is not recommended. Performed By: #### L 500.4100, L500.4050, L501.0900, L501.9985 ####[facility] [address] [place], [address] BUN/CRE 23.7 RATIO High 10-[address] [facility] Comment on above: Performed By: #### L 500.4100, L500.4050, L501.0900, L501.9985 ####[facility] [address] [place], [address] CA,Total 10.2 mg/dL High 8.5-10.[address] [facility] Comment on above: Performed By: #### L 500.4100, L500.4050, L501.0900, L501.9985 ####[facility] [address] [place], [address] Chloride [Moles/Vol] 104 mmol/L Normal 98-107 [facility] Comment on above: Performed By: #### L 500.4100, L500.4050, L501.0900, L501.9985 ####[facility] [address] [place], [address] CO2 [Moles/Vol] 29.0 mmol/L Normal 21.0-32.[address] [facility] Comment on above: Performed By: #### L 500.4100, L500.4050, L501.0900, L501.9985 ####[facility] [address] [place], [address] Creatinine [Mass/Vol] 0.76 mg/dL Normal 0.55-1.02 [facility] Comment on above: Result Comment: The validity of the calculated GFR GFRAA in patients over70 years has not been determined. Clinical correlation isessential. Performed By: #### L 500.4100, L500.4050, L501.0900, L501.9985 ####[facility] [address] [place], [address] EST GFR - AA 99 mL/min Normal >[address] [facility] Comment on above: Result Comment: Afri can [place] GFR Calc Performed By: #### L 500.4100, L500.4050, L501.0900, L501.9985 ####[facility] [address] [place], [address] GAP 5 Normal 5-[address] [facility] Comment on above: Performed By: #### L 500.4100, L500.4050, L501.0900, L501.9985 ####[facility] [address] [place], [address] GFR/1.73 sq M.predicted among non-blacks MDRD (S/P/Bld) [Vol rate/Area] 82 mL/min/{1.73_m2} Normal >[address] [facility] Comment on above: Result Comment: Non- GFR Calc Performed By: #### L 500.4100, L500.4050, L501.0900, L501.9985 ####[facility] [address] [place], [address] Globulin (S) [Mass/Vol] 3.8 g/dL Normal 2.2-4.2 [facility] Comment on above: Performed By: #### L 500.4100, L500.4050, L501.0900, L501.9985 ####[facility] [address] [place], [address] Glucose [Mass/Vol] 101 mg/dL Normal 74-106 [facility] Comment on above: Result Comment: Fast ing Glucose result from 100 to 125 mg/dLsuggests IMPAIRED HOMEOSTASIS per A.D.A. criteria. Performed By: #### L 500.4100, L500.4050, L501.0900, L501.9985 ####[facility] [address] [place], [address] Potassium [Moles/Vol] 4.0 mmol/L Normal 3.5-5.1 [facility] Comment on above: Performed By: #### L 500.4100, L500.4050, L501.0900, L501.9985 ####[facility] [address] [place], [address] Sodium [Moles/Vol] 138 mmol/L Normal 136-145 [facility] Comment on above: Performed By: #### L 500.4100, L500.4050, L501.0900, L501.9985 ####[facility] [address] [place], [address] T PROT 7.5 g/dL Normal 6.4-8.[address] [facility] Comment on above: Performed By: #### L 500.4100, L500.4050, L501.0900, L501.9985 ####[facility] [address] [place], [address] Urea nitrogen [Mass/Vol] 18 mg/dL Normal 7-[address] [facility] Comment on above: Performed By: #### L 500.4100, L500.4050, L501.0900, L501.9985 ####[facility] [address] [place], [address] Estimated glomerular filtrat ion rate (GFR) AmericanOrdered By: Milind Lamb on 07-20-2024 Estimated GFR (MDRD) Amer 99 mL/min >[address] [facility] Comment on above: GFR Calc Glomerular filtration rate ( GFR) estimationOrdered By: Milind Lamb on 07-20-2024 Estimated GFR (MDRD) Non-Af Amer 82 mL/min >[address] [facility] Comment on above: Non- GFR Calc Glucose measurementOrdered B y: Milind Lamb on 07-20-2024 Glucose [Mass/Vol] 101 mg/dL 74-106 [facility] Comment on above: Fasting Glucose resu lt from 100 to 125 mg/dL suggests IMPAIRED HOMEOSTASIS per A.D.A. criteria. Hemoglobin A1con 07-20-2024 HbA1c (Bld) [Mass fraction] 12.6 % High 3.8-5.[address] [facility] Comment on above: Result Comment: Norm al < 5.7 % Prediabetic 5.7 - 6.4 % Diabetic >or= 6.5 % Please note range changes. Performed By: #### L 500.4100, L500.4050, L501.0900, L501.9985 ####[facility] [address] [place], [place], [id number] Hemoglobin A1c percentageOrd ered By: Milind Lamb on 07-20-2024 HbA1c (Bld) [Mass fraction] 12.6 % High 3.8-5.[address] [facility] Comment on above: Normal < 5.7 % Predi abetic 5.7 - 6.4 % Diabetic >or= 6.5 % Please note range changes. High density lipoprotein (HD L) measurementOrdered By: Milind Lamb on 07-20-2024 Cholesterol in HDL [Mass/Vol] 102 mg/dL >[address] [facility] Comment on above: The drugs N-Acetylcy steine and Metamizole may falsely depress this assay. Reference Range HDL <40 mg/dL Low HDL Cholesterol HDL >or= 60 mg/dL High HDL Cholesterol Laboratory - Chemistry and C hemistry - challengeOrdered By: Milind Lamb on 07-20-2024 AST [Catalytic activity/Vol] 4 U/L Low 15-[address] [facility] Lipid Profileon 07-20-2024 Cholesterol [Mass/Vol] 234 mg/dL High 200 [facility] Comment on above: Result Comment: <200 mg/dL Desirable 200-240 mg/dL Borderline >240 mg/dL High Risk Performed By: #### L 500.4100, L500.4050, L501.0900, L501.9985 ####[facility] [address] [place], [place], [address] Cholesterol in HDL [Mass/Vol] 102 mg/dL Normal [facility] Comment on above: Result Comment: The drugs N-Acetylcysteine and Metamizole may falselydepress this assay. Reference Range HDL <40 mg/dL Low HDL Cholesterol HDL >or= 60 mg/dL High HDL Cholesterol Performed By: #### L 500.4100, L500.4050, L501.0900, L501.9985 ####[facility] [address] [place], [address] Cholesterol in LDL [Mass/Vol] 119 mg/dL Normal 0-[address] [facility] Comment on above: Performed By: #### L 500.4100, L500.4050, L501.0900, L501.9985 ####[facility] [address] [place], [address] Cholesterol in VLDL [Mass/Vol] 13 mg/dL Normal 5-[address] [facility] Comment on above: Performed By: #### L 500.4100, L500.4050, L501.0900, L501.9985 ####[facility] [address] [place], [address] Triglyceride [Mass/Vol] 63 mg/dL Normal [facility] Comment on above: Result Comment: The drugs N-Acetylcysteine and Metamizole may falselydepress this assay.Serum Triglycerides Reference Interval Normal <150 mg/dL Borderline high 150 - 199 mg/dL High 200 - 499 mg/dL Very High > or = 500 mg/dL Performed By: #### L 500.4100, L500.4050, L501.0900, L501.9985 ####[facility] [address] [place], [address] Low density lipoprotein (LDL ) cholesterol measurementOrdered By: Milind Lamb on 07-20-2024 Cholesterol in LDL [Mass/Vol] 119 mg/dL 0-[address] [facility] Potassium measurementOrdered By: Milind Lamb on 07-20-2024 Potassium [Moles/Vol] 4.0 mmol/L 3.5-5.1 [facility] Protein+Creatinine Ratio,Uri neon 07-20-2024 PROT:CRE RATIO 218 mg/g CRE High 0-[address] [facility] Comment on above: Performed By: #### L 500.4100, L500.4050, L501.0900, L501.9985 ####[facility] [address] [place], [address] Protein (U) [Mass/Vol] 11.8 mg/dL Normal <11.9 [facility] Comment on above: Performed By: #### L 500.4100, L500.4050, L501.0900, L501.9985 ####[facility] [address] [place], [address] UR CREAT 54.20 mg/dL Normal NO RANGE EST. [facility] Comment on above: Performed By: #### L 500.4100, L500.4050, L501.0900, L501.9985 ####[facility] [address] [place], [address] Protein/Creatinine (U) [Mass ratio]Ordered By: Milind Lamb on 07-20-2024 Urine Protein/Creatinine Ratio 218 mg/g CRE High 0-[address] [facility] Random urine protein measure mentOrdered By: Milind Lamb on 07-20-2024 Protein (U) [Mass/Vol] 11.8 mg/dL 0.0-11.8 [facility] Serum anion gap measurementO rdered By: Milind Lamb on 07-20-2024 Anion gap [Moles/Vol] 5 mmol/L 5-15 [facility] Serum globulin measurementOr dered By: Milind Lamb on 07-20-2024 Globulin (S) [Mass/Vol] 3.8 g/dL 2.2-4.2 [facility] Serum or plasma alanine hargrove otransferase (ALT) measurementOrdered By: Milind Lamb on 07-20-2024 ALT [Catalytic activity/Vol] 11 U/L Low 13-[address] [facility] Serum or plasma albumin jn urement (mass/volume)Ordered By: Milind Lamb on 07-20-2024 Albumin [Mass/Vol] 3.7 g/dL 3.2-5.0 [facility] Serum or plasma alkaline regis sphatase measurementOrdered By: Milind Lamb on 07-20-2024 ALP [Catalytic activity/Vol] 91 U/L 45-[address] [facility] Serum or plasma calcium jn urement (mass/volume)Ordered By: Milind Lamb on 07-20-2024 Calcium [Mass/Vol] 10.2 mg/dL High 8.5-10.1 [facility] Serum or plasma cholesterol measurement (mass/volume)Ordered By: Milind Lamb on 07-20-2024 Cholesterol [Mass/Vol] 234 mg/dL High <200 [facility] [facility] Comment on above: <200 mg/dL Desirable 200-240 mg/dL Borderline >240 mg/dL High Risk Serum or plasma creatinine m easurement (mass/volume)Ordered By: Milind Lamb on 07-20-2024 Creatinine [Mass/Vol] 0.76 mg/dL 0.55-1.02 [facility] Comment on above: The validity of the calculated GFR & GFRAA in patients over 70 years has not been determined. Clinical correlation is essential. Serum or plasma urea nitroge n measurement (mass/volume)Ordered By: Milind Lamb on 07-20-2024 Urea nitrogen [Mass/Vol] 18 mg/dL 7-[address] [facility] Sodium levelOrdered By: Milind Lamb on 07-20-2024 Sodium [Moles/Vol] 138 mmol/L 136-145 [facility] Total proteinOrdered By: Bri Lamb on 07-20-2024 Protein [Mass/Vol] 7.5 g/dL 6.4-8.2 [facility] Triglycerides measurementOrd ered By: Milind Lamb on 07-20-2024 Triglyceride [Mass/Vol] 63 mg/dL <199 [facility] Comment on above: The drugs N-Acetylcy steine and Metamizole may falsely depress this assay.Serum Triglycerides Reference Interval Normal <150 mg/dL Borderline high 150 - 199 mg/dL High 200 - 499 mg/dL Very High > or = 500 mg/dL Urine creatinine measurement (mass/volume)Ordered By: Milind Lamb on 07-20-2024 Creatinine (U) [Mass/Vol] 54.20 mg/dL NO RANGE EST. [facility] Very low density lipoprotein (VLDL) cholesterol measurementOrdered By: Milind Lamb on 07-20-2024 VLDL Cholesterol 13 mg/dL 5-[address] [facility] Venous Blood Gason 4 Blood Gas Type LIZY Normal [facility] Comment on above: Performed By: #### L 9000.0810 ####[facility] [address] [place], [address] CO2 [Moles/Vol] 17 mmol/L Low 23-[address] [facility] Comment on above: Performed By: #### L 9000.0810 ####[facility] [address] [place], [address] FI02 21.[address] [facility] Comment on above: Performed By: #### L 9000.0810 ####[facility] [address] [place], [address] HCO3 (Bld) [Moles/Vol] 15 mmol/L Low 22-26 [facility] Comment on above: Performed By: #### L 9000.0810 ####[facility] [address] [place], [address] O2 Delivery Dev Not entered Normal [facility] Comment on above: Performed By: #### L 9000.0810 ####[facility] [address] [place], [address] SITE Not entered [facility] Comment on above: Performed By: #### L 9000.0810 ####[facility] [address] [place], [address] VBG BE -12 mmol/L Low -1.0-3.[address] [facility] Comment on above: Performed By: #### L 9000.0810 ####[facility] [address] [place], [address] VBG pCO2 38.2 mmHg Low 41-[address] [facility] Comment on above: Performed By: #### L 9000.0810 ####[facility] [address] [place], [address] VBG pH 7.21 Low 7.32-7.[address] [facility] Comment on above: Performed By: #### L 9000.0810 ####[facility] [address] [place], [address] VBG PO2 71 mmHg High 25-[address] [facility] Comment on above: Performed By: #### L 9000.0810 ####[facility] [address] [place], [address] VBG SO2 90 High 50-[address] [facility] Comment on above: Performed By: #### L 9000.0810 ####[facility] [address] [place], [address] Basic Metabolic Profile (BMP )on 05-11-2024 BUN Normal 7-[address] [facility] Comment on above: Result Comment: Canc elled via OM: Order cancelled - Patient discharged Performed By: #### L 100.0100, L500.2500 ####[facility] [address] [place], [address] BUN/CRE Normal 10-[address] [facility] Comment on above: Result Comment: Canc elled via OM: Order cancelled - Patient discharged Performed By: #### L 100.0100, L500.2500 ####[facility] [address] [place], [address] CA,Total Normal 8.5-10.[address] [facility] Comment on above: Result Comment: Canc elled via OM: Order cancelled - Patient discharged Performed By: #### L 100.0100, L500.2500 ####[facility] [address] [place], [address] CL Normal 98-[address] [facility] Comment on above: Result Comment: Canc elled via OM: Order cancelled - Patient discharged Performed By: #### L 100.0100, L500.2500 ####[facility] [address] [place], [address] CO2 Normal 21.0-32.[address] [facility] Comment on above: Result Comment: Canc elled via OM: Order cancelled - Patient discharged Performed By: #### L 100.0100, L500.2500 ####[facility] [address] [place], [address] CREAT,SERUM Normal 0.55-1.[address] [facility] Comment on above: Result Comment: Canc elled via OM: Order cancelled - Patient discharged Performed By: #### L 100.0100, L500.2500 ####[facility] [address] [place], [address] EST GFR Normal >[address] [facility] Comment on above: Result Comment: Canc elled via OM: Order cancelled - Patient discharged Performed By: #### L 100.0100, L500.2500 ####[facility] [address] [place], [address] EST GFR - AA Normal >[address] [facility] Comment on above: Result Comment: Canc elled via OM: Order cancelled - Patient discharged Performed By: #### L 100.0100, L500.2500 ####[facility] [address] [place], [address] GAP Normal 5-[address] [facility] Comment on above: Result Comment: Canc elled via OM: Order cancelled - Patient discharged Performed By: #### L 100.0100, L500.2500 ####[facility] [address] [place], [address] GLU Normal 74-[address] [facility] Comment on above: Result Comment: Canc elled via OM: Order cancelled - Patient discharged Performed By: #### L 100.0100, L500.2500 ####[facility] [address] [place], [address] Potassium Normal 3.5-5.[address] [facility] Comment on above: Result Comment: Canc elled via OM: Order cancelled - Patient discharged Performed By: #### L 100.0100, L500.2500 ####[facility] [address] [place], [address] Basic Metabolic Profile (BMP) Normal 136-[address] [facility] Comment on above: Result Comment: Canc elled via OM: Order cancelled - Patient discharged Performed By: #### L 100.0100, L500.2500 ####[facility] [address] [place], [address] CBC W/Diff, Automatedon 11-0 -2023 Absolute Neut Normal 2.0-7.[address] [facility] Comment on above: Result Comment: Canc elled via OM: Order cancelled - Patient discharged Performed By: #### L 100.0100, L500.2500 ####[facility] [address] [place], [address] HCT Normal 37-[address] [facility] Comment on above: Result Comment: Canc elled via OM: Order cancelled - Patient discharged Performed By: #### L 100.0100, L500.2500 ####[facility] [address] [place], [address] HGB Normal 12.0-15.[address] [facility] Comment on above: Result Comment: Canc elled via OM: Order cancelled - Patient discharged Performed By: #### L 100.0100, L500.2500 ####[facility] [address] [place], [address] MCH Normal 27.0-32.[address] [facility] Comment on above: Result Comment: Canc elled via OM: Order cancelled - Patient discharged Performed By: #### L 100.0100, L500.2500 ####[facility] [address] [place], [address] MCHC Normal 32-[address] [facility] Comment on above: Result Comment: Canc elled via OM: Order cancelled - Patient discharged Performed By: #### L 100.0100, L500.2500 ####[facility] [address] [place], [address] MCV Normal 81-[address] [facility] Comment on above: Result Comment: Canc elled via OM: Order cancelled - Patient discharged Performed By: #### L 100.0100, L500.2500 ####[facility] [address] [place], [address] NEUT% Normal 47-[address] [facility] Comment on above: Result Comment: Canc elled via OM: Order cancelled - Patient discharged Performed By: #### L 100.0100, L500.2500 ####[facility] [address] [place], [address] PLT Normal 150-[address] [facility] Comment on above: Result Comment: Canc elled via OM: Order cancelled - Patient discharged Performed By: #### L 100.0100, L500.2500 ####[facility] [address] [place], [address] RBC Normal 4.2-5.[address] [facility] Comment on above: Result Comment: Canc elled via OM: Order cancelled - Patient discharged Performed By: #### L 100.0100, L500.2500 ####[facility] [address] [place], [address] RDW CV Normal 11.6-14.[address] [facility] Comment on above: Result Comment: Canc elled via OM: Order cancelled - Patient discharged Performed By: #### L 100.0100, L500.2500 ####[facility] [address] [place], [address] RDW SD Normal 35.1-43.[address] [facility] Comment on above: Result Comment: Canc elled via OM: Order cancelled - Patient discharged Performed By: #### L 100.0100, L500.2500 ####[facility] [address] [place], [address] WBC Normal 4.4-11.[address] [facility] Comment on above: Result Comment: Canc elled via OM: Order cancelled - Patient discharged Performed By: #### L 100.0100, L500.2500 ####[facility] [address] [place], [address] Basic Metabolic Profile (BMP )on 05-10-2024 BUN Normal 7-[address] [facility] Comment on above: Result Comment: Canc elled via OM: Order cancelled - Patient discharged Performed By: #### L 100.0100, L500.2500 ####[facility] [address] [place], [address] BUN/CRE Normal 10-[address] [facility] Comment on above: Result Comment: Canc elled via OM: Order cancelled - Patient discharged Performed By: #### L 100.0100, L500.2500 ####[facility] [address] [place], [address] CA,Total Normal 8.5-10.[address] [facility] Comment on above: Result Comment: Canc elled via OM: Order cancelled - Patient discharged Performed By: #### L 100.0100, L500.2500 ####[facility] [address] [place], [address] CL Normal 98-[address] [facility] Comment on above: Result Comment: Canc elled via OM: Order cancelled - Patient discharged Performed By: #### L 100.0100, L500.2500 ####[facility] [address] [place], [address] CO2 Normal 21.0-32.[address] [facility] Comment on above: Result Comment: Canc elled via OM: Order cancelled - Patient discharged Performed By: #### L 100.0100, L500.2500 ####[facility] [address] [place], [address] CREAT,SERUM Normal 0.55-1.[address] [facility] Comment on above: Result Comment: Canc elled via OM: Order cancelled - Patient discharged Performed By: #### L 100.0100, L500.2500 ####[facility] [address] [place], [address] EST GFR Normal >[address] [facility] Comment on above: Result Comment: Canc elled via OM: Order cancelled - Patient discharged Performed By: #### L 100.0100, L500.2500 ####[facility] [address] [place], [address] EST GFR - AA Normal >[address] [facility] Comment on above: Result Comment: Canc elled via OM: Order cancelled - Patient discharged Performed By: #### L 100.0100, L500.2500 ####[facility] [address] [place], [address] GAP Normal 5-[address] [facility] Comment on above: Result Comment: Canc elled via OM: Order cancelled - Patient discharged Performed By: #### L 100.0100, L500.2500 ####[facility] [address] [place], [address] GLU Normal 74-[address] [facility] Comment on above: Result Comment: Canc elled via OM: Order cancelled - Patient discharged Performed By: #### L 100.0100, L500.2500 ####[facility] [address] [place], [address] Potassium Normal 3.5-5.[address] [facility] Comment on above: Result Comment: Canc elled via OM: Order cancelled - Patient discharged Performed By: #### L 100.0100, L500.2500 ####[facility] [address] [place], [address] Basic Metabolic Profile (BMP) Normal 136-[address] [facility] Comment on above: Result Comment: Canc elled via OM: Order cancelled - Patient discharged Performed By: #### L 100.0100, L500.2500 ####[facility] [address] [place], [address] CBC W/Diff, Automatedon 11-0 Absolute Neut Normal 2.0-7.[address] [facility] Comment on above: Result Comment: Canc elled via OM: Order cancelled - Patient discharged Performed By: #### L 100.0100, L500.2500 ####[facility] [address] [place], [address] HCT Normal 37-[address] [facility] Comment on above: Result Comment: Canc elled via OM: Order cancelled - Patient discharged Performed By: #### L 100.0100, L500.2500 ####[facility] [address] [place], [address] HGB Normal 12.0-15.[address] [facility] Comment on above: Result Comment: Canc elled via OM: Order cancelled - Patient discharged Performed By: #### L 100.0100, L500.2500 ####[facility] [address] [place], [address] MCH Normal 27.0-32.[address] [facility] Comment on above: Result Comment: Canc elled via OM: Order cancelled - Patient discharged Performed By: #### L 100.0100, L500.2500 ####[facility] [address] [place], [address] MCHC Normal 32-[address] [facility] Comment on above: Result Comment: Canc elled via OM: Order cancelled - Patient discharged Performed By: #### L 100.0100, L500.2500 ####[facility] [address] [place], [address] MCV Normal 81-[address] [facility] Comment on above: Result Comment: Canc elled via OM: Order cancelled - Patient discharged Performed By: #### L 100.0100, L500.2500 ####[facility] [address] [place], [address] NEUT% Normal 47-[address] [facility] Comment on above: Result Comment: Canc elled via OM: Order cancelled - Patient discharged Performed By: #### L 100.0100, L500.2500 ####[facility] [address] [place], [address] PLT Normal 150-[address] [facility] Comment on above: Result Comment: Canc elled via OM: Order cancelled - Patient discharged Performed By: #### L 100.0100, L500.2500 ####[facility] [address] [place], [address] RBC Normal 4.2-5.[address] [facility] Comment on above: Result Comment: Canc elled via OM: Order cancelled - Patient discharged Performed By: #### L 100.0100, L500.2500 ####[facility] [address] [place], [address] RDW CV Normal 11.6-14.[address] [facility] Comment on above: Result Comment: Canc elled via OM: Order cancelled - Patient discharged Performed By: #### L 100.0100, L500.2500 ####[facility] [address] [place], [address] RDW SD Normal 35.1-43.[address] [facility] Comment on above: Result Comment: Canc elled via OM: Order cancelled - Patient discharged Performed By: #### L 100.0100, L500.2500 ####[facility] [address] [place], [address] WBC Normal 4.4-11.[address] [facility] Comment on above: Result Comment: Canc elled via OM: Order cancelled - Patient discharged Performed By: #### L 100.0100, L500.2500 ####[facility] [address] [place], [address] Basic Metabolic Profile (BMP )on 05-09-2024 BUN Normal 7-[address] [facility] Comment on above: Result Comment: Canc elled via OM: Order cancelled - Patient discharged Performed By: #### L 500.2500, L100.0100 ####[facility] [address] [place], [address] BUN/CRE Normal 10-[address] [facility] Comment on above: Result Comment: Canc elled via OM: Order cancelled - Patient discharged Performed By: #### L 500.2500, L100.0100 ####[facility] [address] [place], [address] CA,Total Normal 8.5-10.[address] [facility] Comment on above: Result Comment: Canc elled via OM: Order cancelled - Patient discharged Performed By: #### L 500.2500, L100.0100 ####[facility] [address] [place], [address] CL Normal 98-[address] [facility] Comment on above: Result Comment: Canc elled via OM: Order cancelled - Patient discharged Performed By: #### L 500.2500, L100.0100 ####[facility] [address] [place], [address] CO2 Normal 21.0-32.[address] [facility] Comment on above: Result Comment: Canc elled via OM: Order cancelled - Patient discharged Performed By: #### L 500.2500, L100.0100 ####[facility] [address] [place], [address] CREAT,SERUM Normal 0.55-1.[address] [facility] Comment on above: Result Comment: Canc elled via OM: Order cancelled - Patient discharged Performed By: #### L 500.2500, L100.0100 ####[facility] [address] [place], [address] EST GFR Normal >[address] [facility] Comment on above: Result Comment: Canc elled via OM: Order cancelled - Patient discharged Performed By: #### L 500.2500, L100.0100 ####[facility] [address] [place], [address] EST GFR - AA Normal >[address] [facility] Comment on above: Result Comment: Canc elled via OM: Order cancelled - Patient discharged Performed By: #### L 500.2500, L100.0100 ####[facility] [address] [place], [address] GAP Normal 5-[address] [facility] Comment on above: Result Comment: Canc elled via OM: Order cancelled - Patient discharged Performed By: #### L 500.2500, L100.0100 ####[facility] [address] [place], [address] GLU Normal 74-[address] [facility] Comment on above: Result Comment: Canc elled via OM: Order cancelled - Patient discharged Performed By: #### L 500.2500, L100.0100 ####[facility] [address] [place], [address] Potassium Normal 3.5-5.[address] [facility] Comment on above: Result Comment: Canc elled via OM: Order cancelled - Patient discharged Performed By: #### L 500.2500, L100.0100 ####[facility] [address] [place], [address] Basic Metabolic Profile (BMP) Normal 136-[address] [facility] Comment on above: Result Comment: Canc elled via OM: Order cancelled - Patient discharged Performed By: #### L 500.2500, L100.0100 ####[facility] [address] [place], [address] CBC W/Diff, Automatedon 11-0 Absolute Neut Normal 2.0-7.[address] [facility] Comment on above: Result Comment: Canc elled via OM: Order cancelled - Patient discharged Performed By: #### L 500.2500, L100.0100 ####[facility] [address] [place], [address] HCT Normal 37-[address] [facility] Comment on above: Result Comment: Canc elled via OM: Order cancelled - Patient discharged Performed By: #### L 500.2500, L100.0100 ####[facility] [address] [place], [address] HGB Normal 12.0-15.[address] [facility] Comment on above: Result Comment: Canc elled via OM: Order cancelled - Patient discharged Performed By: #### L 500.2500, L100.0100 ####[facility] [address] [place], [address] MCH Normal 27.0-32.[address] [facility] Comment on above: Result Comment: Canc elled via OM: Order cancelled - Patient discharged Performed By: #### L 500.2500, L100.0100 ####[facility] [address] [place], [address] MCHC Normal 32-[address] [facility] Comment on above: Result Comment: Canc elled via OM: Order cancelled - Patient discharged Performed By: #### L 500.2500, L100.0100 ####[facility] [address] [place], [address] MCV Normal 81-[address] [facility] Comment on above: Result Comment: Canc elled via OM: Order cancelled - Patient discharged Performed By: #### L 500.2500, L100.0100 ####[facility] [address] [place], [address] NEUT% Normal 47-[address] [facility] Comment on above: Result Comment: Canc elled via OM: Order cancelled - Patient discharged Performed By: #### L 500.2500, L100.0100 ####[facility] [address] [place], [address] PLT Normal 150-[address] [facility] Comment on above: Result Comment: Canc elled via OM: Order cancelled - Patient discharged Performed By: #### L 500.2500, L100.0100 ####[facility] [address] [place], [address] RBC Normal 4.2-5.[address] [facility] Comment on above: Result Comment: Canc elled via OM: Order cancelled - Patient discharged Performed By: #### L 500.2500, L100.0100 ####[facility] [address] [place], [address] RDW CV Normal 11.6-14.[address] [facility] Comment on above: Result Comment: Canc elled via OM: Order cancelled - Patient discharged Performed By: #### L 500.2500, L100.0100 ####[facility] [address] [place], [address] RDW SD Normal 35.1-43.[address] [facility] Comment on above: Result Comment: Canc elled via OM: Order cancelled - Patient discharged Performed By: #### L 500.2500, L100.0100 ####[facility] [address] [place], [address] WBC Normal 4.4-11.[address] [facility] Comment on above: Result Comment: Canc elled via OM: Order cancelled - Patient discharged Performed By: #### L 500.2500, L100.0100 ####[facility] [address] [place], [address] Basic Metabolic Profile (BMP )on 05-08-2024 BUN Normal 7-[address] [facility] Comment on above: Result Comment: Canc elled via OM: Order cancelled - Patient discharged Performed By: #### L 500.2500, L100.0100 ####[facility] [address] [place], [address] BUN/CRE Normal 10-[address] [facility] Comment on above: Result Comment: Canc elled via OM: Order cancelled - Patient discharged Performed By: #### L 500.2500, L100.0100 ####[facility] [address] [place], [address] CA,Total Normal 8.5-10.[address] [facility] Comment on above: Result Comment: Canc elled via OM: Order cancelled - Patient discharged Performed By: #### L 500.2500, L100.0100 ####[facility] [address] [place], [address] CL Normal 98-[address] [facility] Comment on above: Result Comment: Canc elled via OM: Order cancelled - Patient discharged Performed By: #### L 500.2500, L100.0100 ####[facility] [address] [place], [address] CO2 Normal 21.0-32.[address] [facility] Comment on above: Result Comment: Canc elled via OM: Order cancelled - Patient discharged Performed By: #### L 500.2500, L100.0100 ####[facility] [address] [place], [address] CREAT,SERUM Normal 0.55-1.[address] [facility] Comment on above: Result Comment: Canc elled via OM: Order cancelled - Patient discharged Performed By: #### L 500.2500, L100.0100 ####[facility] [address] [place], [address] EST GFR Normal >[address] [facility] Comment on above: Result Comment: Canc elled via OM: Order cancelled - Patient discharged Performed By: #### L 500.2500, L100.0100 ####[facility] [address] [place], [address] EST GFR - AA Normal >[address] [facility] Comment on above: Result Comment: Canc elled via OM: Order cancelled - Patient discharged Performed By: #### L 500.2500, L100.0100 ####[facility] [address] [place], [address] GAP Normal 5-[address] [facility] Comment on above: Result Comment: Canc elled via OM: Order cancelled - Patient discharged Performed By: #### L 500.2500, L100.0100 ####[facility] [address] [place], [address] GLU Normal 74-[address] [facility] Comment on above: Result Comment: Canc elled via OM: Order cancelled - Patient discharged Performed By: #### L 500.2500, L100.0100 ####[facility] [address] [place], [address] Potassium Normal 3.5-5.[address] [facility] Comment on above: Result Comment: Canc elled via OM: Order cancelled - Patient discharged Performed By: #### L 500.2500, L100.0100 ####[facility] [address] [place], [address] Basic Metabolic Profile (BMP) Normal 136-[address] [facility] Comment on above: Result Comment: Canc elled via OM: Order cancelled - Patient discharged Performed By: #### L 500.2500, L100.0100 ####[facility] [address] [place], [address] CBC W/Diff, Automatedon 11-0 Absolute Neut Normal 2.0-7.[address] [facility] Comment on above: Result Comment: Canc elled via OM: Order cancelled - Patient discharged Performed By: #### L 500.2500, L100.0100 ####[facility] [address] [place], [address] HCT Normal 37-[address] [facility] Comment on above: Result Comment: Canc elled via OM: Order cancelled - Patient discharged Performed By: #### L 500.2500, L100.0100 ####[facility] [address] [place], [address] HGB Normal 12.0-15.[address] [facility] Comment on above: Result Comment: Canc elled via OM: Order cancelled - Patient discharged Performed By: #### L 500.2500, L100.0100 ####[facility] [address] [place], [address] MCH Normal 27.0-32.[address] [facility] Comment on above: Result Comment: Canc elled via OM: Order cancelled - Patient discharged Performed By: #### L 500.2500, L100.0100 ####[facility] [address] [place], [address] MCHC Normal 32-[address] [facility] Comment on above: Result Comment: Canc elled via OM: Order cancelled - Patient discharged Performed By: #### L 500.2500, L100.0100 ####[facility] [address] [place], [address] MCV Normal 81-[address] [facility] Comment on above: Result Comment: Canc elled via OM: Order cancelled - Patient discharged Performed By: #### L 500.2500, L100.0100 ####[facility] [address] [place], [address] NEUT% Normal 47-[address] [facility] Comment on above: Result Comment: Canc elled via OM: Order cancelled - Patient discharged Performed By: #### L 500.2500, L100.0100 ####[facility] [address] [place], [address] PLT Normal 150-[address] [facility] Comment on above: Result Comment: Canc elled via OM: Order cancelled - Patient discharged Performed By: #### L 500.2500, L100.0100 ####[facility] [address] [place], [address] RBC Normal 4.2-5.[address] [facility] Comment on above: Result Comment: Canc elled via OM: Order cancelled - Patient discharged Performed By: #### L 500.2500, L100.0100 ####[facility] [address] [place], [address] RDW CV Normal 11.6-14.[address] [facility] Comment on above: Result Comment: Canc elled via OM: Order cancelled - Patient discharged Performed By: #### L 500.2500, L100.0100 ####[facility] [address] [place], [address] RDW SD Normal 35.1-43.[address] [facility] Comment on above: Result Comment: Canc elled via OM: Order cancelled - Patient discharged Performed By: #### L 500.2500, L100.0100 ####[facility] [address] [place], [address] WBC Normal 4.4-11.[address] [facility] Comment on above: Result Comment: Canc elled via OM: Order cancelled - Patient discharged Performed By: #### L 500.2500, L100.0100 ####[facility] [address] [place], [address] Culture, Blood (WB)on 2023 CUB Blood cultures x2 fr om two different sites No growth in [address] [facility] Comment on above: Performed By: #### M 200.1000 ####[facility] [address] [place], [address] Basic Metabolic Profile (BMP )on 05-07-2024 BUN Normal 7-[address] [facility] Comment on above: Result Comment: Canc elled via OM: Order cancelled - Patient discharged Performed By: #### L 500.2500, L100.0100 ####[facility] [address] [place], [address] BUN/CRE Normal 10-[address] [facility] Comment on above: Result Comment: Canc elled via OM: Order cancelled - Patient discharged Performed By: #### L 500.2500, L100.0100 ####[facility] [address] [place], [address] CA,Total Normal 8.5-10.[address] [facility] Comment on above: Result Comment: Canc elled via OM: Order cancelled - Patient discharged Performed By: #### L 500.2500, L100.0100 ####[facility] [address] [place], [address] CL Normal 98-[address] [facility] Comment on above: Result Comment: Canc elled via OM: Order cancelled - Patient discharged Performed By: #### L 500.2500, L100.0100 ####[facility] [address] [place], [address] CO2 Normal 21.0-32.[address] [facility] Comment on above: Result Comment: Canc elled via OM: Order cancelled - Patient discharged Performed By: #### L 500.2500, L100.0100 ####[facility] [address] [place], [address] CREAT,SERUM Normal 0.55-1.[address] [facility] Comment on above: Result Comment: Canc elled via OM: Order cancelled - Patient discharged Performed By: #### L 500.2500, L100.0100 ####[facility] [address] [place], [address] EST GFR Normal >[address] [facility] Comment on above: Result Comment: Canc elled via OM: Order cancelled - Patient discharged Performed By: #### L 500.2500, L100.0100 ####[facility] [address] [place], [address] EST GFR - AA Normal >[address] [facility] Comment on above: Result Comment: Canc elled via OM: Order cancelled - Patient discharged Performed By: #### L 500.2500, L100.0100 ####[facility] [address] [place], [address] GAP Normal 5-[address] [facility] Comment on above: Result Comment: Canc elled via OM: Order cancelled - Patient discharged Performed By: #### L 500.2500, L100.0100 ####[facility] [address] [place], [address] GLU Normal 74-[address] [facility] Comment on above: Result Comment: Canc elled via OM: Order cancelled - Patient discharged Performed By: #### L 500.2500, L100.0100 ####[facility] [address] [place], [address] Potassium Normal 3.5-5.[address] [facility] Comment on above: Result Comment: Canc elled via OM: Order cancelled - Patient discharged Performed By: #### L 500.2500, L100.0100 ####[facility] [address] [place], [address] Basic Metabolic Profile (BMP) Normal 136-[address] [facility] Comment on above: Result Comment: Canc elled via OM: Order cancelled - Patient discharged Performed By: #### L 500.2500, L100.0100 ####[facility] [address] [place], [address] CBC W/Diff, Automatedon 11-0 Absolute Neut Normal 2.0-7.[address] [facility] Comment on above: Result Comment: Canc elled via OM: Order cancelled - Patient discharged Performed By: #### L 500.2500, L100.0100 ####[facility] [address] [place], [address] HCT Normal 37-[address] [facility] Comment on above: Result Comment: Canc elled via OM: Order cancelled - Patient discharged Performed By: #### L 500.2500, L100.0100 ####[facility] [address] [place], [address] HGB Normal 12.0-15.[address] [facility] Comment on above: Result Comment: Canc elled via OM: Order cancelled - Patient discharged Performed By: #### L 500.2500, L100.0100 ####[facility] [address] [place], [address] MCH Normal 27.0-32.[address] [facility] Comment on above: Result Comment: Canc elled via OM: Order cancelled - Patient discharged Performed By: #### L 500.2500, L100.0100 ####[facility] [address] [place], [address] MCHC Normal 32-[address] [facility] Comment on above: Result Comment: Canc elled via OM: Order cancelled - Patient discharged Performed By: #### L 500.2500, L100.0100 ####[facility] [address] [place], [address] MCV Normal 81-[address] [facility] Comment on above: Result Comment: Canc elled via OM: Order cancelled - Patient discharged Performed By: #### L 500.2500, L100.0100 ####[facility] [address] [place], [address] NEUT% Normal 47-[address] [facility] Comment on above: Result Comment: Canc elled via OM: Order cancelled - Patient discharged Performed By: #### L 500.2500, L100.0100 ####[facility] [address] [place], [address] PLT Normal 150-[address] [facility] Comment on above: Result Comment: Canc elled via OM: Order cancelled - Patient discharged Performed By: #### L 500.2500, L100.0100 ####[facility] [address] [place], [address] RBC Normal 4.2-5.[address] [facility] Comment on above: Result Comment: Canc elled via OM: Order cancelled - Patient discharged Performed By: #### L 500.2500, L100.0100 ####[facility] [address] [place], [address] RDW CV Normal 11.6-14.[address] [facility] Comment on above: Result Comment: Canc elled via OM: Order cancelled - Patient discharged Performed By: #### L 500.2500, L100.0100 ####[facility] [address] [place], [address] RDW SD Normal 35.1-43.[address] [facility] Comment on above: Result Comment: Canc elled via OM: Order cancelled - Patient discharged Performed By: #### L 500.2500, L100.0100 ####[facility] [address] [place], [address] WBC Normal 4.4-11.[address] [facility] Comment on above: Result Comment: Canc elled via OM: Order cancelled - Patient discharged Performed By: #### L 500.2500, L100.0100 ####[facility] [address] [place], [address] Basic Metabolic Profile (BMP )on 05-06-2024 BUN Normal 7-[address] [facility] Comment on above: Result Comment: Canc elled via OM: Order cancelled - Patient discharged Performed By: #### L 500.2500, L100.0100 ####[facility] [address] [place], [address] BUN/CRE Normal 10-[address] [facility] Comment on above: Result Comment: Canc elled via OM: Order cancelled - Patient discharged Performed By: #### L 500.2500, L100.0100 ####[facility] [address] [place], [address] CA,Total Normal 8.5-10.[address] [facility] Comment on above: Result Comment: Canc elled via OM: Order cancelled - Patient discharged Performed By: #### L 500.2500, L100.0100 ####[facility] [address] [place], [address] CL Normal 98-[address] [facility] Comment on above: Result Comment: Canc elled via OM: Order cancelled - Patient discharged Performed By: #### L 500.2500, L100.0100 ####[facility] [address] [place], [address] CO2 Normal 21.0-32.[address] [facility] Comment on above: Result Comment: Canc elled via OM: Order cancelled - Patient discharged Performed By: #### L 500.2500, L100.0100 ####[facility] [address] [place], [address] CREAT,SERUM Normal 0.55-1.[address] [facility] Comment on above: Result Comment: Canc elled via OM: Order cancelled - Patient discharged Performed By: #### L 500.2500, L100.0100 ####[facility] [address] [place], [address] EST GFR Normal >[address] [facility] Comment on above: Result Comment: Canc elled via OM: Order cancelled - Patient discharged Performed By: #### L 500.2500, L100.0100 ####[facility] [address] [place], [address] EST GFR - AA Normal >[address] [facility] Comment on above: Result Comment: Canc elled via OM: Order cancelled - Patient discharged Performed By: #### L 500.2500, L100.0100 ####[facility] [address] [place], [address] GAP Normal 5-[address] [facility] Comment on above: Result Comment: Canc elled via OM: Order cancelled - Patient discharged Performed By: #### L 500.2500, L100.0100 ####[facility] [address] [place], [address] GLU Normal 74-[address] [facility] Comment on above: Result Comment: Canc elled via OM: Order cancelled - Patient discharged Performed By: #### L 500.2500, L100.0100 ####[facility] [address] [place], [address] Potassium Normal 3.5-5.[address] [facility] Comment on above: Result Comment: Canc elled via OM: Order cancelled - Patient discharged Performed By: #### L 500.2500, L100.0100 ####[facility] [address] [place], [address] Basic Metabolic Profile (BMP) Normal 136-[address] [facility] Comment on above: Result Comment: Canc elled via OM: Order cancelled - Patient discharged Performed By: #### L 500.2500, L100.0100 ####[facility] [address] [place], [address] CBC W/Diff, Automatedon 10-3 Absolute Neut Normal 2.0-7.[address] [facility] Comment on above: Result Comment: Canc elled via OM: Order cancelled - Patient discharged Performed By: #### L 500.2500, L100.0100 ####[facility] [address] [place], [address] HCT Normal 37-[address] [facility] Comment on above: Result Comment: Canc elled via OM: Order cancelled - Patient discharged Performed By: #### L 500.2500, L100.0100 ####[facility] [address] [place], [address] HGB Normal 12.0-15.[address] [facility] Comment on above: Result Comment: Canc elled via OM: Order cancelled - Patient discharged Performed By: #### L 500.2500, L100.0100 ####[facility] [address] [place], [address] MCH Normal 27.0-32.[address] [facility] Comment on above: Result Comment: Canc elled via OM: Order cancelled - Patient discharged Performed By: #### L 500.2500, L100.0100 ####[facility] [address] [place], [address] MCHC Normal 32-[address] [facility] Comment on above: Result Comment: Canc elled via OM: Order cancelled - Patient discharged Performed By: #### L 500.2500, L100.0100 ####[facility] [address] [place], [address] MCV Normal 81-[address] [facility] Comment on above: Result Comment: Canc elled via OM: Order cancelled - Patient discharged Performed By: #### L 500.2500, L100.0100 ####[facility] [address] [place], [address] NEUT% Normal 47-[address] [facility] Comment on above: Result Comment: Canc elled via OM: Order cancelled - Patient discharged Performed By: #### L 500.2500, L100.0100 ####[facility] [address] [place], [address] PLT Normal 150-[address] [facility] Comment on above: Result Comment: Canc elled via OM: Order cancelled - Patient discharged Performed By: #### L 500.2500, L100.0100 ####[facility] [address] [place], [address] RBC Normal 4.2-5.[address] [facility] Comment on above: Result Comment: Canc elled via OM: Order cancelled - Patient discharged Performed By: #### L 500.2500, L100.0100 ####[facility] [address] [place], [address] RDW CV Normal 11.6-14.[address] [facility] Comment on above: Result Comment: Canc elled via OM: Order cancelled - Patient discharged Performed By: #### L 500.2500, L100.0100 ####[facility] [address] [place], [address] RDW SD Normal 35.1-43.[address] [facility] Comment on above: Result Comment: Canc elled via OM: Order cancelled - Patient discharged Performed By: #### L 500.2500, L100.0100 ####[facility] [address] [place], [address] WBC Normal 4.4-11.[address] [facility] Comment on above: Result Comment: Canc elled via OM: Order cancelled - Patient discharged Performed By: #### L 500.2500, L100.0100 ####[facility] [address] [place], [address] Basic Metabolic Profile (BMP )on 05-05-2024 BUN Normal 7-[address] [facility] Comment on above: Result Comment: Canc elled via OM: Order cancelled - Patient discharged Performed By: #### L 100.0100, L500.2500 ####[facility] [address] [place], [address] BUN/CRE Normal 10-[address] [facility] Comment on above: Result Comment: Canc elled via OM: Order cancelled - Patient discharged Performed By: #### L 100.0100, L500.2500 ####[facility] [address] [place], [address] CA,Total Normal 8.5-10.[address] [facility] Comment on above: Result Comment: Canc elled via OM: Order cancelled - Patient discharged Performed By: #### L 100.0100, L500.2500 ####[facility] [address] [place], [address] CL Normal 98-[address] [facility] Comment on above: Result Comment: Canc elled via OM: Order cancelled - Patient discharged Performed By: #### L 100.0100, L500.2500 ####[facility] [address] [place], [address] CO2 Normal 21.0-32.[address] [facility] Comment on above: Result Comment: Canc elled via OM: Order cancelled - Patient discharged Performed By: #### L 100.0100, L500.2500 ####[facility] [address] [place], [address] CREAT,SERUM Normal 0.55-1.[address] [facility] Comment on above: Result Comment: Canc elled via OM: Order cancelled - Patient discharged Performed By: #### L 100.0100, L500.2500 ####[facility] [address] [place], [address] EST GFR Normal >[address] [facility] Comment on above: Result Comment: Canc elled via OM: Order cancelled - Patient discharged Performed By: #### L 100.0100, L500.2500 ####[facility] [address] [place], [address] EST GFR - AA Normal >[address] [facility] Comment on above: Result Comment: Canc elled via OM: Order cancelled - Patient discharged Performed By: #### L 100.0100, L500.2500 ####[facility] [address] [place], [address] GAP Normal 5-[address] [facility] Comment on above: Result Comment: Canc elled via OM: Order cancelled - Patient discharged Performed By: #### L 100.0100, L500.2500 ####[facility] [address] [place], [address] GLU Normal 74-[address] [facility] Comment on above: Result Comment: Canc elled via OM: Order cancelled - Patient discharged Performed By: #### L 100.0100, L500.2500 ####[facility] [address] [place], [address] Potassium Normal 3.5-5.[address] [facility] Comment on above: Result Comment: Canc elled via OM: Order cancelled - Patient discharged Performed By: #### L 100.0100, L500.2500 ####[facility] [address] [place], [address] Basic Metabolic Profile (BMP) Normal 136-[address] [facility] Comment on above: Result Comment: Canc elled via OM: Order cancelled - Patient discharged Performed By: #### L 100.0100, L500.2500 ####[facility] [address] [place], [address] CBC W/Diff, Automatedon 10-3 0-2023 Absolute Neut Normal 2.0-7.[address] [facility] Comment on above: Result Comment: Canc elled via OM: Order cancelled - Patient discharged Performed By: #### L 100.0100, L500.2500 ####[facility] [address] [place], [address] HCT Normal 37-[address] [facility] Comment on above: Result Comment: Canc elled via OM: Order cancelled - Patient discharged Performed By: #### L 100.0100, L500.2500 ####[facility] [address] [place], [address] HGB Normal 12.0-15.[address] [facility] Comment on above: Result Comment: Canc elled via OM: Order cancelled - Patient discharged Performed By: #### L 100.0100, L500.2500 ####[facility] [address] [place], [address] MCH Normal 27.0-32.[address] [facility] Comment on above: Result Comment: Canc elled via OM: Order cancelled - Patient discharged Performed By: #### L 100.0100, L500.2500 ####[facility] [address] [place], [address] MCHC Normal 32-[address] [facility] Comment on above: Result Comment: Canc elled via OM: Order cancelled - Patient discharged Performed By: #### L 100.0100, L500.2500 ####[facility] [address] [place], [address] MCV Normal 81-[address] [facility] Comment on above: Result Comment: Canc elled via OM: Order cancelled - Patient discharged Performed By: #### L 100.0100, L500.2500 ####[facility] [address] [place], [address] NEUT% Normal 47-[address] [facility] Comment on above: Result Comment: Canc elled via OM: Order cancelled - Patient discharged Performed By: #### L 100.0100, L500.2500 ####[facility] [address] [place], [address] PLT Normal 150-[address] [facility] Comment on above: Result Comment: Canc elled via OM: Order cancelled - Patient discharged Performed By: #### L 100.0100, L500.2500 ####[facility] [address] [place], [address] RBC Normal 4.2-5.[address] [facility] Comment on above: Result Comment: Canc elled via OM: Order cancelled - Patient discharged Performed By: #### L 100.0100, L500.2500 ####[facility] [address] [place], [address] RDW CV Normal 11.6-14.[address] [facility] Comment on above: Result Comment: Canc elled via OM: Order cancelled - Patient discharged Performed By: #### L 100.0100, L500.2500 ####[facility] [address] [place], [address] RDW SD Normal 35.1-43.[address] [facility] Comment on above: Result Comment: Canc elled via OM: Order cancelled - Patient discharged Performed By: #### L 100.0100, L500.2500 ####[facility] [address] [place], [address] WBC Normal 4.4-11.[address] [facility] Comment on above: Result Comment: Canc elled via OM: Order cancelled - Patient discharged Performed By: #### L 100.0100, L500.2500 ####[facility] [address] [place], [address] Basic Metabolic Profile (BMP )on 05-04-2024 BUN/CRE 11.6 RATIO Normal 10-[address] [facility] Comment on above: Performed By: #### L 100.0100, L500.2500 ####[facility] [address] [place], [address] CA,Total 8.6 mg/dL Normal 8.5-10.[address] [facility] Comment on above: Performed By: #### L 100.0100, L500.2500 ####[facility] [address] [place], [address] Chloride [Moles/Vol] 115 mmol/L High 98-107 [facility] Comment on above: Performed By: #### L 100.0100, L500.2500 ####[facility] [address] [place], [address] CO2 [Moles/Vol] 20.0 mmol/L Low 21.0-32.[address] [facility] Comment on above: Performed By: #### L 100.0100, L500.2500 ####[facility] [address] [place], [address] Creatinine [Mass/Vol] 0.86 mg/dL Normal 0.55-1.02 [facility] Comment on above: Result Comment: The validity of the calculated GFR GFRAA in patients over70 years has not been determined. Clinical correlation isessential. Performed By: #### L 100.0100, L500.2500 ####[facility] [address] [place], [address] ECRCL 56.11 ml/min Normal [facility] Comment on above: Performed By: #### L 100.0100, L500.2500 ####[facility] [address] [place], [address] EST GFR - AA 86 mL/min Normal >[address] [facility] Comment on above: Result Comment: Afri can [place] GFR Calc Performed By: #### L 100.0100, L500.2500 ####[facility] [address] [place], [address] GAP 4 Low 5-[address] [facility] Comment on above: Performed By: #### L 100.0100, L500.2500 ####[facility] [address] [place], [address] GFR/1.73 sq M.predicted among non-blacks MDRD (S/P/Bld) [Vol rate/Area] 71 mL/min/{1.73_m2} Normal >[address] [facility] Comment on above: Result Comment: Non- GFR Calc Performed By: #### L 100.0100, L500.2500 ####[facility] [address] [place], [address] Glucose [Mass/Vol] 220 mg/dL High 74-106 [facility] Comment on above: Result Comment: Gluc ose result greater than or equal to 200 mg/dLsuggests DIABETES MELLITUS per A.D.A. criteria. Performed By: #### L 100.0100, L500.2500 ####[facility] [address] [place], [address] Potassium [Moles/Vol] 3.7 mmol/L Normal 3.5-5.1 [facility] Comment on above: Performed By: #### L 100.0100, L500.2500 ####[facility] [address] [place], [address] Sodium [Moles/Vol] 139 mmol/L Normal 136-145 [facility] Comment on above: Performed By: #### L 100.0100, L500.2500 ####[facility] [address] [place], [address] Urea nitrogen [Mass/Vol] 10 mg/dL Normal 7-[address] [facility] Comment on above: Performed By: #### L 100.0100, L500.2500 ####[facility] [address] [place], [address] Bedside Glucoseon 05-04-2024 FINGERSTICK GLU 176 mg/dL High 74-[address] [facility] Comment on above: Result Comment: MARIA D GEMENT OF PATIENT CARE PER NURSING PROTOCOL Performed By: #### L 501.080 ####[facility] [address] [place], [address] FINGERSTICK GLU 225 mg/dL High 74-[address] [facility] Comment on above: Result Comment: MARIA D GEMENT OF PATIENT CARE PER NURSING PROTOCOL Performed By: #### L 501.080 ####[facility] [address] [place], [address] CBC W/Diff, Automatedon 10-2 Absolute Lymph 1.94 X10 3/uL Normal 0.83-4.[address] [facility] Comment on above: Performed By: #### L 100.0100, L500.2500 ####[facility] [address] [place], [address] Absolute Neut 2.5 X10 3/uL Normal 2.0-7.[address] [facility] Comment on above: Performed By: #### L 100.0100, L500.2500 ####[facility] [address] [place], [address] Basophils/100 WBC (Bld) 0.4 % Normal 0-1 [facility] Comment on above: Performed By: #### L 100.0100, L500.2500 ####[facility] [address] [place], [address] Eosinophils/100 WBC (Bld) 1.2 % Normal 0-[address] [facility] Comment on above: Performed By: #### L 100.0100, L500.2500 ####[facility] [address] [place], [address] Erythrocyte distribution width (RBC) [Ratio] 13.3 % Normal 11.6-14.[address] [facility] Comment on above: Performed By: #### L 100.0100, L500.2500 ####[facility] [address] [place], [address] Hematocrit (Bld) [Volume fraction] 29.8 % Low 37-[address] [facility] Comment on above: Performed By: #### L 100.0100, L500.2500 ####[facility] [address] [place], [address] Hemoglobin (Bld) [Mass/Vol] 10.1 g/dL Low 12.0-15.[address] [facility] Comment on above: Performed By: #### L 100.0100, L500.2500 ####[facility] [address] [place], [address] IG% 0.200 Normal 0.0-0.[address] [facility] Comment on above: Result Comment: IG% - Immature Granulocytes (promyelocytes, myelocytes andmetamyelocytes) > 1% indicates that a LEFT SHIFT is Present. Performed By: #### L 100.0100, L500.2500 ####[facility] [address] [place], [address] Lymphocytes/100 WBC (Bld) 38.9 % Normal 19-[address] [facility] Comment on above: Performed By: #### L 100.0100, L500.2500 ####[facility] [address] [place], [address] MCH (RBC) [Entitic mass] 30.1 pg Normal 27.0-32.[address] [facility] Comment on above: Performed By: #### L 100.0100, L500.2500 ####[facility] [address] [place], [address] MCHC (RBC) [Mass/Vol] 33.9 g/dL Normal 32-36 [facility] Comment on above: Performed By: #### L 100.0100, L500.2500 ####[facility] [address] [place], [address] MCV (RBC) [Entitic vol] 89.0 fL Normal 81-99 [facility] Comment on above: Performed By: #### L 100.0100, L500.2500 ####[facility] [address] [place], [address] Monocytes/100 WBC (Bld) 8.8 % Normal 0-10 [facility] Comment on above: Performed By: #### L 100.0100, L500.2500 ####[facility] [address] [place], [address] Neutrophils/100 WBC (Bld) 50.5 % Normal 47-[address] [facility] Comment on above: Performed By: #### L 100.0100, L500.2500 ####[facility] [address] [place], [address] Nucleated RBC (Bld) [#/Vol] 0 10*3/uL Normal 0-[address] [facility] Comment on above: Performed By: #### L 100.0100, L500.2500 ####[facility] [address] [place], [address] Platelet mean volume (Bld) [Entitic vol] 11.1 fL Normal 6.2-12.[address] [facility] Comment on above: Performed By: #### L 100.0100, L500.2500 ####[facility] [address] [place], [address] Platelets (Bld) [#/Vol] 187 10*3/uL Normal 150-[address] [facility] Comment on above: Performed By: #### L 100.0100, L500.2500 ####[facility] [address] [place], [address] RBC (Bld) [#/Vol] 3.35 10*6/uL Low 4.2-5.4 [facility] Comment on above: Performed By: #### L 100.0100, L500.2500 ####[facility] [address] [place], [address] RDW SD 43.4 fl Normal 35.1-43.[address] [facility] Comment on above: Performed By: #### L 100.0100, L500.2500 ####[facility] [address] [place], [address] WBC (Bld) [#/Vol] 5.0 10*3/uL Normal 4.4-11.0 [facility] Comment on above: Performed By: #### L 100.0100, L500.2500 ####[facility] [address] [place], [address] Discharge Instructionon 04-07 Discharge Instruction Normal [facility] Urine Cultureon 05-04-2024 [facility] Mixed Gram Positive Organisms [place] Count 11,000-25,000 MIXC Mixed contaminants. Submit a new specimen if indicated. Normal [facility] Comment on above: Performed By: #### M 100.2200 ####[facility] [address] [place], [address] Acetone Serumon 05-03-2024 ACETONE SERUM LARGE Abnormal NEG [facility] Comment on above: Order Comment: Comme nts: If not done in the ED Result Comment: CRIT ICAL VALUE CALLED TO [id number]/28/24 0456 Mayito Chao.RESULTS READ BACK BY SAME. Performed By: #### L 501.6900 ####[facility] [address] [place], [address] Basic Metabolic Profile (BMP )on 05-03-2024 BUN Normal 7-[address] [facility] Comment on above: Order Comment: Call MD with results STAT Result Comment: Guille carey via OM: Ordered Performed By: #### L 500.2500 ####[facility] [address] [place], [address] BUN/CRE Normal -[address] [facility] Comment on above: Order Comment: Call MD with results STAT Result Comment: Canc elled via OM: MD Ordered Performed By: #### L 500.2500 ####[facility] [address] [place], [address] CA,Total Normal 8.5-10.[address] [facility] Comment on above: Order Comment: Call MD with results STAT Result Comment: Canc elled via OM: MD Ordered Performed By: #### L 500.2500 ####[facility] [address] [place], [address] CL Normal 98-[address] [facility] Comment on above: Order Comment: Call MD with results STAT Result Comment: Canc elled via OM: MD Ordered Performed By: #### L 500.2500 ####[facility] [address] [place], [address] CO2 Normal 21.0-32.[address] [facility] Comment on above: Order Comment: Call MD with results STAT Result Comment: Canc elled via OM: MD Ordered Performed By: #### L 500.2500 ####[facility] [address] [place], [address] CREAT,SERUM Normal 0.55-1.[address] [facility] Comment on above: Order Comment: Call MD with results STAT Result Comment: Canc elled via OM: MD Ordered Performed By: #### L 500.2500 ####[facility] [address] [place], [address] EST GFR Normal >[address] [facility] Comment on above: Order Comment: Call MD with results STAT Result Comment: Canc elled via OM: MD Ordered Performed By: #### L 500.2500 ####[facility] [address] [place], [address] EST GFR - AA Normal >[address] [facility] Comment on above: Order Comment: Call MD with results STAT Result Comment: Canc elled via OM: MD Ordered Performed By: #### L 500.2500 ####[facility] [address] [place], [address] GAP Normal 5-[address] [facility] Comment on above: Order Comment: Call MD with results STAT Result Comment: Canc elled via OM: MD Ordered Performed By: #### L 500.2500 ####[facility] [address] [place], [address] GLU Normal 74-[address] [facility] Comment on above: Order Comment: Call MD with results STAT Result Comment: Canc elled via OM: MD Ordered Performed By: #### L 500.2500 ####[facility] [address] [place], [address] Potassium Normal 3.5-5.[address] [facility] Comment on above: Order Comment: Call MD with results STAT Result Comment: Canc elled via OM: MD Ordered Performed By: #### L 500.2500 ####[facility] [address] [place], [address] Basic Metabolic Profile (BMP) Normal 136-[address] [facility] Comment on above: Order Comment: Call MD with results STAT Result Comment: Canc elled via OM: MD Ordered Performed By: #### L 500.2500 ####[facility] [address] [place], [address] BUN Normal 7-[address] [facility] Comment on above: Order Comment: Call MD with results STAT Result Comment: Canc elled via OM: MD Ordered Performed By: #### L 500.2500 ####[facility] [address] [place], [address] BUN/CRE Normal 10-[address] [facility] Comment on above: Order Comment: Call MD with results STAT Result Comment: Canc elled via OM: MD Ordered Performed By: #### L 500.2500 ####[facility] [address] [place], [address] CA,Total Normal 8.5-10.[address] [facility] Comment on above: Order Comment: Call MD with results STAT Result Comment: Canc elled via OM: MD Ordered Performed By: #### L 500.2500 ####[facility] [address] [place], [address] CL Normal 98-[address] [facility] Comment on above: Order Comment: Call MD with results STAT Result Comment: Canc elled via OM: MD Ordered Performed By: #### L 500.2500 ####[facility] [address] [place], [address] CO2 Normal 21.0-32.[address] [facility] Comment on above: Order Comment: Call MD with results STAT Result Comment: Canc elled via OM: MD Ordered Performed By: #### L 500.2500 ####[facility] [address] [place], [address] CREAT,SERUM Normal 0.55-1.[address] [facility] Comment on above: Order Comment: Call MD with results STAT Result Comment: Canc elled via OM: MD Ordered Performed By: #### L 500.2500 ####[facility] [address] [place], [address] EST GFR Normal >[address] [facility] Comment on above: Order Comment: Call MD with results STAT Result Comment: Canc elled via OM: MD Ordered Performed By: #### L 500.2500 ####[facility] [address] [place], [address] EST GFR - AA Normal >[address] [facility] Comment on above: Order Comment: Call MD with results STAT Result Comment: Canc elled via OM: MD Ordered Performed By: #### L 500.2500 ####[facility] [address] [place], [address] GAP Normal 5-[address] [facility] Comment on above: Order Comment: Call MD with results STAT Result Comment: Canc elled via OM: MD Ordered Performed By: #### L 500.2500 ####[facility] [address] [place], [address] GLU Normal 74-[address] [facility] Comment on above: Order Comment: Call MD with results STAT Result Comment: Canc elled via OM: MD Ordered Performed By: #### L 500.2500 ####[facility] [address] [place], [address] Potassium Normal 3.5-5.[address] [facility] Comment on above: Order Comment: Call MD with results STAT Result Comment: Canc elled via OM: MD Ordered Performed By: #### L 500.2500 ####[facility] [address] [place], [address] Basic Metabolic Profile (BMP) Normal 136-[address] [facility] Comment on above: Order Comment: Call MD with results STAT Result Comment: Canc elled via OM: MD Ordered Performed By: #### L 500.2500 ####[facility] [address] [place], [address] BUN Normal 7-[address] [facility] Comment on above: Order Comment: Call MD with results STAT Result Comment: Canc elled via OM: MD Ordered Performed By: #### L 500.2500 ####[facility] [address] [place], [address] BUN/CRE Normal 10-[address] [facility] Comment on above: Order Comment: Call MD with results STAT Result Comment: Canc elled via OM: MD Ordered Performed By: #### L 500.2500 ####[facility] [address] [place], [address] CA,Total Normal 8.5-10.[address] [facility] Comment on above: Order Comment: Call MD with results STAT Result Comment: Canc elled via OM: MD Ordered Performed By: #### L 500.2500 ####[facility] [address] [place], [address] CL Normal 98-[address] [facility] Comment on above: Order Comment: Call MD with results STAT Result Comment: Canc elled via OM: MD Ordered Performed By: #### L 500.2500 ####[facility] [address] [place], [address] CO2 Normal 21.0-32.[address] [facility] Comment on above: Order Comment: Call MD with results STAT Result Comment: Canc elled via OM: MD Ordered Performed By: #### L 500.2500 ####[facility] [address] [place], [address] CREAT,SERUM Normal 0.55-1.[address] [facility] Comment on above: Order Comment: Call MD with results STAT Result Comment: Canc elled via OM: MD Ordered Performed By: #### L 500.2500 ####[facility] [address] [place], [address] EST GFR Normal >[address] [facility] Comment on above: Order Comment: Call MD with results STAT Result Comment: Canc elled via OM: MD Ordered Performed By: #### L 500.2500 ####[facility] [address] [place], [address] EST GFR - AA Normal >[address] [facility] Comment on above: Order Comment: Call MD with results STAT Result Comment: Canc elled via OM: MD Ordered Performed By: #### L 500.2500 ####[facility] [address] [place], [address] GAP Normal 5-[address] [facility] Comment on above: Order Comment: Call MD with results STAT Result Comment: Canc elled via OM: MD Ordered Performed By: #### L 500.2500 ####[facility] [address] [place], [address] GLU Normal 74-[address] [facility] Comment on above: Order Comment: Call MD with results STAT Result Comment: Canc elled via OM: MD Ordered Performed By: #### L 500.2500 ####[facility] [address] [place], [address] Potassium Normal 3.5-5.[address] [facility] Comment on above: Order Comment: Call MD with results STAT Result Comment: Canc elled via OM: MD Ordered Performed By: #### L 500.2500 ####[facility] [address] [place], [address] Basic Metabolic Profile (BMP) Normal 136-[address] [facility] Comment on above: Order Comment: Call MD with results STAT Result Comment: Canc elled via OM: MD Ordered Performed By: #### L 500.2500 ####[facility] [address] [place], [address] BUN/CRE 16.6 RATIO Normal 10-[address] [facility] Comment on above: Order Comment: Call MD with results STAT Performed By: #### L 500.2500 ####[facility] [address] [place], [address] CA,Total 8.6 mg/dL Normal 8.5-10.[address] [facility] Comment on above: Order Comment: Call MD with results STAT Performed By: #### L 500.2500 ####[facility] [address] [place], [address] Chloride [Moles/Vol] 117 mmol/L High 98-107 [facility] Comment on above: Order Comment: Call MD with results STAT Performed By: #### L 500.2500 ####[facility] [address] [place], [address] CO2 [Moles/Vol] 18.0 mmol/L Low 21.0-32.[address] [facility] Comment on above: Order Comment: Call MD with results STAT Performed By: #### L 500.2500 ####[facility] [address] [place], [address] Creatinine [Mass/Vol] 0.90 mg/dL Normal 0.55-1.02 [facility] Comment on above: Order Comment: Call MD with results STAT Result Comment: The validity of the calculated GFR GFRAA in patients over70 years has not been determined. Clinical correlation isessential. Performed By: #### L 500.2500 ####[facility] [address] [place], [address] ECRCL 53.41 ml/min Normal [facility] Comment on above: Order Comment: Call MD with results STAT Performed By: #### L 500.2500 ####[facility] [address] [place], [address] EST GFR - AA 82 mL/min Normal >[address] [facility] Comment on above: Order Comment: Call MD with results STAT Result Comment: Afri can [place] GFR Calc Performed By: #### L 500.2500 ####[facility] [address] [place], [address] GAP 4 Low 5-[address] [facility] Comment on above: Order Comment: Call MD with results STAT Performed By: #### L 500.2500 ####[facility] [address] [place], [address] GFR/1.73 sq M.predicted among non-blacks MDRD (S/P/Bld) [Vol rate/Area] 67 mL/min/{1.73_m2} Normal >[address] [facility] Comment on above: Order Comment: Call MD with results STAT Result Comment: Non- GFR Calc Performed By: #### L 500.2500 ####[facility] [address] [place], [address] Glucose [Mass/Vol] 119 mg/dL High 74-106 [facility] Comment on above: Order Comment: Call MD with results STAT Result Comment: Fast ing Glucose result from 100 to 125 mg/dLsuggests IMPAIRED HOMEOSTASIS per A.D.A. criteria. Performed By: #### L 500.2500 ####[facility] [address] [place], [address] Potassium [Moles/Vol] 3.3 mmol/L Low 3.5-5.1 [facility] Comment on above: Order Comment: Call MD with results STAT Performed By: #### L 500.2500 ####[facility] [address] [place], [address] Sodium [Moles/Vol] 138 mmol/L Normal 136-145 [facility] Comment on above: Order Comment: Call MD with results STAT Performed By: #### L 500.2500 ####[facility] [address] [place], [address] Urea nitrogen [Mass/Vol] 15 mg/dL Normal 7-[address] [facility] Comment on above: Order Comment: Call MD with results STAT Performed By: #### L 500.2500 ####[facility] [address] [place], [address] BUN/CRE 16.1 RATIO Normal 10-[address] [facility] Comment on above: Performed By: #### L 500.2500 ####[facility] [address] [place], [address] CA,Total 8.4 mg/dL Low 8.5-10.[address] [facility] Comment on above: Performed By: #### L 500.2500 ####[facility] [address] [place], [address] Chloride [Moles/Vol] 114 mmol/L High 98-107 [facility] Comment on above: Performed By: #### L 500.2500 ####[facility] [address] [place], [address] CO2 [Moles/Vol] 17.0 mmol/L Low 21.0-32.[address] [facility] Comment on above: Performed By: #### L 500.2500 ####[facility] [address] [place], [address] Creatinine [Mass/Vol] 0.99 mg/dL Normal 0.55-1.02 [facility] Comment on above: Result Comment: The validity of the calculated GFR GFRAA in patients over70 years has not been determined. Clinical correlation isessential. Performed By: #### L 500.2500 ####[facility] [address] [place], [address] ECRCL 48.55 ml/min Normal [facility] Comment on above: Performed By: #### L 500.2500 ####[facility] [address] [place], [address] EST GFR - AA 73 mL/min Normal >[address] [facility] Comment on above: Result Comment: Afri can [place] GFR Calc Performed By: #### L 500.2500 ####[facility] [address] [place], [address] GAP 9 Normal 5-[address] [facility] Comment on above: Performed By: #### L 500.2500 ####[facility] [address] [place], [address] GFR/1.73 sq M.predicted among non-blacks MDRD (S/P/Bld) [Vol rate/Area] 60 mL/min/{1.73_m2} Normal >[address] [facility] Comment on above: Result Comment: Non- GFR Calc Performed By: #### L 500.2500 ####[facility] [address] [place], [address] Glucose [Mass/Vol] 190 mg/dL High 74-106 [facility] Comment on above: Result Comment: Fast ing Glucose result greater than or equal to 126 mg/dLsuggests DIABETES MELLITUS per A.D.A. criteria. Performed By: #### L 500.2500 ####[facility] [address] [place], [address] Potassium [Moles/Vol] 3.5 mmol/L Normal 3.5-5.1 [facility] Comment on above: Performed By: #### L 500.2500 ####[facility] [address] [place], [address] Sodium [Moles/Vol] 140 mmol/L Normal 136-145 [facility] Comment on above: Performed By: #### L 500.2500 ####[facility] [address] [place], [address] Urea nitrogen [Mass/Vol] 16 mg/dL Normal 7-[address] [facility] Comment on above: Performed By: #### L 500.2500 ####[facility] [address] [place], [address] BUN/CRE 18.8 RATIO Normal 10-[address] [facility] Comment on above: Order Comment: Comme nts: SPECIMEN #3'TROP' Serial specimen #1, #2 or #3: Alex RICH with results STAT Performed By: #### L 501.2300, L100.0100, L500.2500, L501.4020, L501.9520 ####[facility] [address] [place], [address] CA,Total 8.5 mg/dL Normal 8.5-10.[address] [facility] Comment on above: Order Comment: Comme nts: SPECIMEN #3'TROP' Serial specimen #1, #2 or #3: Alex RICH with results STAT Performed By: #### L 501.2300, L100.0100, L500.2500, L501.4020, L501.9520 ####[facility] [address] [place], [address] Chloride [Moles/Vol] 114 mmol/L High 98-107 [facility] Comment on above: Order Comment: Comme nts: SPECIMEN #3'TROP' Serial specimen #1, #2 or #3: Alex RICH with results STAT Performed By: #### L 501.2300, L100.0100, L500.2500, L501.4020, L501.9520 ####[facility] [address] [place], [address] CO2 [Moles/Vol] 12.0 mmol/L Low 21.0-32.[address] [facility] Comment on above: Order Comment: Comme nts: SPECIMEN #3'TROP' Serial specimen #1, #2 or #3: Alex RICH with results STAT Performed By: #### L 501.2300, L100.0100, L500.2500, L501.4020, L501.9520 ####[facility] [address] [place], [address] Creatinine [Mass/Vol] 1.01 mg/dL Normal 0.55-1.02 [facility] Comment on above: Order Comment: Comme nts: SPECIMEN #3'TROP' Serial specimen #1, #2 or #3: Alex RICH with results STAT Result Comment: The validity of the calculated GFR GFRAA in patients over70 years has not been determined. Clinical correlation isessential. Performed By: #### L 501.2300, L100.0100, L500.2500, L501.4020, L501.9520 ####[facility] [address] [place], [address] ECRCL 47.59 ml/min Normal [facility] Comment on above: Order Comment: Comme nts: SPECIMEN #3'TROP' Serial specimen #1, #2 or #3: Alex RICH with results STAT Performed By: #### L 501.2300, L100.0100, L500.2500, L501.4020, L501.9520 ####[facility] [address] [place], [address] EST GFR - AA 71 mL/min Normal >[address] [facility] Comment on above: Order Comment: Comme nts: SPECIMEN #3'TROP' Serial specimen #1, #2 or #3: Alex RICH with results STAT Result Comment: Afri can [place] GFR Calc Performed By: #### L 501.2300, L100.0100, L500.2500, L501.4020, L501.9520 ####[facility] [address] [place], [address] GAP 12 Normal 5-[address] [facility] Comment on above: Order Comment: Comme nts: SPECIMEN #3'TROP' Serial specimen #1, #2 or #3: Alex RICH with results STAT Performed By: #### L 501.2300, L100.0100, L500.2500, L501.4020, L501.9520 ####[facility] [address] [place], [address] GFR/1.73 sq M.predicted among non-blacks MDRD (S/P/Bld) [Vol rate/Area] 59 mL/min/{1.73_m2} Low >[address] [facility] Comment on above: Order Comment: Comme nts: SPECIMEN #3'TROP' Serial specimen #1, #2 or #3: Alex RICH with results STAT Result Comment: Non- GFR Calc Performed By: #### L 501.2300, L100.0100, L500.2500, L501.4020, L501.9520 ####[facility] [address] [place], [address] Glucose [Mass/Vol] 241 mg/dL High 74-106 [facility] Comment on above: Order Comment: Comme nts: SPECIMEN #3'TROP' Serial specimen #1, #2 or #3: Alex RICH with results STAT Result Comment: Gluc ose result greater than or equal to 200 mg/dLsuggests DIABETES MELLITUS per A.D.A. criteria. Performed By: #### L 501.2300, L100.0100, L500.2500, L501.4020, L501.9520 ####[facility] [address] [place], [address] Potassium [Moles/Vol] 3.8 mmol/L Normal 3.5-5.1 [facility] Comment on above: Order Comment: Comme nts: SPECIMEN #3'TROP' Serial specimen #1, #2 or #3: Alex RICH with results STAT Performed By: #### L 501.2300, L100.0100, L500.2500, L501.4020, L501.9520 ####[facility] [address] [place], [address] Sodium [Moles/Vol] 137 mmol/L Normal 136-145 [facility] Comment on above: Order Comment: Comme nts: SPECIMEN #3'TROP' Serial specimen #1, #2 or #3: Alex RICH with results STAT Performed By: #### L 501.2300, L100.0100, L500.2500, L501.4020, L501.9520 ####[facility] [address] [place], [address] Urea nitrogen [Mass/Vol] 19 mg/dL High 7-[address] [facility] Comment on above: Order Comment: Comme nts: SPECIMEN #3'TROP' Serial specimen #1, #2 or #3: Alex RICH with results STAT Performed By: #### L 501.2300, L100.0100, L500.2500, L501.4020, L501.9520 ####[facility] [address] [place], [address] BUN Normal 7-[address] [facility] Comment on above: Result Comment: Canc elled via OM: Duplicate Order Performed By: #### L 500.2500 ####[facility] [address] [place], [address] BUN/CRE Normal 10-[address] [facility] Comment on above: Result Comment: Canc elled via OM: Duplicate Order Performed By: #### L 500.2500 ####[facility] [address] [place], [address] CA,Total Normal 8.5-10.[address] [facility] Comment on above: Result Comment: Canc elled via OM: Duplicate Order Performed By: #### L 500.2500 ####[facility] [address] [place], [address] CL Normal 98-[address] [facility] Comment on above: Result Comment: Canc elled via OM: Duplicate Order Performed By: #### L 500.2500 ####[facility] [address] [place], [address] CO2 Normal 21.0-32.[address] [facility] Comment on above: Result Comment: Canc elled via OM: Duplicate Order Performed By: #### L 500.2500 ####[facility] [address] [place], [address] CREAT,SERUM Normal 0.55-1.[address] [facility] Comment on above: Result Comment: Canc elled via OM: Duplicate Order Performed By: #### L 500.2500 ####[facility] [address] [place], [address] EST GFR Normal >[address] [facility] Comment on above: Result Comment: Canc elled via OM: Duplicate Order Performed By: #### L 500.2500 ####[facility] [address] [place], [address] EST GFR - AA Normal >[address] [facility] Comment on above: Result Comment: Canc elled via OM: Duplicate Order Performed By: #### L 500.2500 ####[facility] [address] [place], [address] GAP Normal 5-[address] [facility] Comment on above: Result Comment: Canc elled via OM: Duplicate Order Performed By: #### L 500.2500 ####[facility] [address] [place], [address] GLU Normal 74-[address] [facility] Comment on above: Result Comment: Canc elled via OM: Duplicate Order Performed By: #### L 500.2500 ####[facility] [address] [place], [address] Potassium Normal 3.5-5.[address] [facility] Comment on above: Result Comment: Canc elled via OM: Duplicate Order Performed By: #### L 500.2500 ####[facility] [address] [place], [address] Basic Metabolic Profile (BMP) Normal 136-[address] [facility] Comment on above: Result Comment: Canc elled via OM: Duplicate Order Performed By: #### L 500.2500 ####[facility] [address] [place], [address] BUN/CRE 18.8 RATIO Normal 10-[address] [facility] Comment on above: Order Comment: Comme nts: SPECIMEN #2'TROP' Serial specimen #1, #2 or #3: 2Cmeir RICH with results STAT Performed By: #### L 500.2500, L501.4020 ####[facility] [address] [place], [address] CA,Total 9.2 mg/dL Normal 8.5-10.[address] [facility] Comment on above: Order Comment: Comme nts: SPECIMEN #2'TROP' Serial specimen #1, #2 or #3: 2Cmeir RICH with results STAT Performed By: #### L 500.2500, L501.4020 ####[facility] [address] [place], [address] Chloride [Moles/Vol] 106 mmol/L Normal 98-107 [facility] Comment on above: Order Comment: Comme nts: SPECIMEN #2'TROP' Serial specimen #1, #2 or #3: 2Cmeir RICH with results STAT Performed By: #### L 500.2500, L501.4020 ####[facility] [address] [place], [address] CO2 [Moles/Vol] 9.0 mmol/L Invalid Interpretation Code 21.0-32.[address] [facility] Comment on above: Order Comment: Comme nts: SPECIMEN #2'TROP' Serial specimen #1, #2 or #3: Mejia RICH with results STAT Result Comment: Crit ical Result(s) Called at: 00:31:10 05/03/2024 by: NoahBurns. MIK Dennis RN ICU. Results read back by same. Performed By: #### L 500.2500, L501.4020 ####[facility] [address] [place], [address] Creatinine [Mass/Vol] 1.17 mg/dL High 0.55-1.02 [facility] Comment on above: Order Comment: Comme nts: SPECIMEN #2'TROP' Serial specimen #1, #2 or #3: Mejia RICH with results STAT Result Comment: The validity of the calculated GFR GFRAA in patients over70 years has not been determined. Clinical correlation isessential. Performed By: #### L 500.2500, L501.4020 ####[facility] [address] [place], [address] ECRCL 41.08 ml/min Normal [facility] Comment on above: Order Comment: Comme nts: SPECIMEN #2'TROP' Serial specimen #1, #2 or #3: Mejia RICH with results STAT Performed By: #### L 500.2500, L501.4020 ####[facility] [address] [place], [address] EST GFR - AA 60 mL/min Normal >[address] [facility] Comment on above: Order Comment: Comme nts: SPECIMEN #2'TROP' Serial specimen #1, #2 or #3: Mejia RICH with results STAT Result Comment: Afri can [place] GFR Calc Performed By: #### L 500.2500, L501.4020 ####[facility] [address] [place], [address] GAP 21 High 5-[address] [facility] Comment on above: Order Comment: Comme nts: SPECIMEN #2'TROP' Serial specimen #1, #2 or #3: 2Cmeir RICH with results STAT Performed By: #### L 500.2500, L501.4020 ####[facility] [address] [place], [address] GFR/1.73 sq M.predicted among non-blacks MDRD (S/P/Bld) [Vol rate/Area] 50 mL/min/{1.73_m2} Low >[address] [facility] Comment on above: Order Comment: Comme nts: SPECIMEN #2'TROP' Serial specimen #1, #2 or #3: 2Cmeir RICH with results STAT Result Comment: Non- GFR Calc Performed By: #### L 500.2500, L501.4020 ####[facility] [address] [place], [address] Glucose [Mass/Vol] 419 mg/dL High 74-106 [facility] Comment on above: Order Comment: Comme nts: SPECIMEN #2'TROP' Serial specimen #1, #2 or #3: Mejia RICH with results STAT Result Comment: Gluc ose result greater than or equal to 200 mg/dLsuggests DIABETES MELLITUS per A.D.A. criteria. Performed By: #### L 500.2500, L501.4020 ####[facility] [address] [place], [address] Potassium [Moles/Vol] 4.2 mmol/L Normal 3.5-5.1 [facility] Comment on above: Order Comment: Comme nts: SPECIMEN #2'TROP' Serial specimen #1, #2 or #3: Mejia RICH with results STAT Performed By: #### L 500.2500, L501.4020 ####[facility] [address] [place], [address] Sodium [Moles/Vol] 136 mmol/L Normal 136-145 [facility] Comment on above: Order Comment: Comme nts: SPECIMEN #2'TROP' Serial specimen #1, #2 or #3: Mejia RICH with results STAT Performed By: #### L 500.2500, L501.4020 ####[facility] [address] [place], [address] Urea nitrogen [Mass/Vol] 22 mg/dL High 7-[address] [facility] Comment on above: Order Comment: Comme nts: SPECIMEN #2'TROP' Serial specimen #1, #2 or #3: Mejia RICH with results STAT Performed By: #### L 500.2500, L501.4020 ####[facility] [address] [place], [address] Bedside Glucoseon 05-03-2024 FINGERSTICK GLU 293 mg/dL High 74-[address] [facility] Comment on above: Result Comment: MARIA D GEMENT OF PATIENT CARE PER NURSING PROTOCOL Performed By: #### L 501.080 ####[facility] [address] [place], [address] FINGERSTICK GLU 154 mg/dL High 74-[address] [facility] Comment on above: Result Comment: MARIA D GEMENT OF PATIENT CARE PER NURSING PROTOCOL Performed By: #### L 501.080 ####[facility] [address] [place], [address] FINGERSTICK GLU 114 mg/dL High 74-[address] [facility] Comment on above: Result Comment: MARIA D GEMENT OF PATIENT CARE PER NURSING PROTOCOL Performed By: #### L 501.080 ####[facility] [address] [place], [address] FINGERSTICK GLU 114 mg/dL High 74-[address] [facility] Comment on above: Result Comment: MARIA D GEMENT OF PATIENT CARE PER NURSING PROTOCOL Performed By: #### L 501.080 ####[facility] [address] [place], [address] FINGERSTICK GLU 108 mg/dL High 74-[address] [facility] Comment on above: Result Comment: MARIA D GEMENT OF PATIENT CARE PER NURSING PROTOCOL Performed By: #### L 501.080 ####[facility] [address] [place], [address] FINGERSTICK GLU 121 mg/dL High 74-[address] [facility] Comment on above: Result Comment: MARIA D GEMENT OF PATIENT CARE PER NURSING PROTOCOL Performed By: #### L 501.080 ####[facility] [address] [place], [address] FINGERSTICK GLU 183 mg/dL High 74-[address] [facility] Comment on above: Result Comment: MARIA D GEMENT OF PATIENT CARE PER NURSING PROTOCOL Performed By: #### L 501.080 ####[facility] [address] [place], [address] FINGERSTICK GLU 196 mg/dL High 74-[address] [facility] Comment on above: Result Comment: MARIA D GEMENT OF PATIENT CARE PER NURSING PROTOCOL Performed By: #### L 501.080 ####[facility] [address] [place], [address] FINGERSTICK GLU 212 mg/dL High 74-[address] [facility] Comment on above: Result Comment: MARIA D GEMENT OF PATIENT CARE PER NURSING PROTOCOL Performed By: #### L 501.080 ####[facility] [address] [place], [address] FINGERSTICK GLU 211 mg/dL High 74-[address] [facility] Comment on above: Result Comment: MARIA D GEMENT OF PATIENT CARE PER NURSING PROTOCOL Performed By: #### L 501.080 ####[facility] [address] [place], [address] FINGERSTICK GLU 244 mg/dL High 74-[address] [facility] Comment on above: Result Comment: MARIA D GEMENT OF PATIENT CARE PER NURSING PROTOCOL Performed By: #### L 501.080 ####[facility] [address] [place], [address] FINGERSTICK GLU 218 mg/dL High 74-[address] [facility] Comment on above: Result Comment: MARIA D GEMENT OF PATIENT CARE PER NURSING PROTOCOL Performed By: #### L 501.080 ####[facility] [address] [place], [address] FINGERSTICK GLU 277 mg/dL High 74-[address] [facility] Comment on above: Result Comment: MARIA D GEMENT OF PATIENT CARE PER NURSING PROTOCOL Performed By: #### L 501.080 ####[facility] [address] [place], [address] FINGERSTICK GLU 333 mg/dL High 74-[address] [facility] Comment on above: Result Comment: MARIA D GEMENT OF PATIENT CARE PER NURSING PROTOCOL Performed By: #### L 501.080 ####[facility] [address] [place], [address] Blood Gases by [facility] [phone] SHAWNA TEST Positive Normal [facility] Comment on above: Performed By: #### L 9000.0800 ####[facility] [address] [place], [address] Base excess Calc (Bld) [Moles/Vol] -19 mmol/L Low -2 to +[address] [facility] Comment on above: Performed By: #### L 9000.0800 ####[facility] [address] [place], [address] Blood Gas Type ART Normal [facility] Comment on above: Performed By: #### L 9000.0800 ####[facility] [address] [place], [address] CO2 [Moles/Vol] 10 mmol/L Normal [facility] Comment on above: Performed By: #### L 9000.0800 ####[facility] [address] [place], [address] HCO3 (Bld) [Moles/Vol] 8.9 mmol/L Low 22-26 [facility] Comment on above: Performed By: #### L 9000.0800 ####[facility] [address] [place], [address] Mode Not entered [facility] Comment on above: Performed By: #### L 9000.0800 ####[facility] [address] [place], [address] O2 Delivery Dev Room Air [facility] Comment on above: Performed By: #### L 9000.0800 ####[facility] [address] [place], [address] pCO2 22.5 mmHg Low 35-[address] [facility] Comment on above: Performed By: #### L 9000.0800 ####[facility] [address] [place], [address] pH (Bld) 7.20 [pH] Low 7.35-7.[address] [facility] Comment on above: Performed By: #### L 9000.0800 ####[facility] [address] [place], [address] PO2 103 mmHG High 75-[address] [facility] Comment on above: Performed By: #### L 9000.0800 ####[facility] [address] [place], [address] Read Back By Yes [facility] Comment on above: Performed By: #### L 9000.0800 ####[facility] [address] [place], [address] smith [facility] Comment on above: Performed By: #### L 9000.0800 ####[facility] [address] [place], [address] SITE R Radial [facility] Comment on above: Performed By: #### L 9000.0800 ####[facility] [address] [place], [address] SO2 97 Normal 95-[address] [facility] Comment on above: Performed By: #### L 8999.0800 ####[facility] [address] [place], [address] Time Given 21:30:[address] [facility] Comment on above: Performed By: #### L 8999.0800 ####[facility] [address] [place], [address] SHAWNA TEST Positive Normal [facility] Comment on above: Performed By: #### L 8999.0800 ####[facility] [address] [place], [address] Base excess Calc (Bld) [Moles/Vol] -22 mmol/L Low -2 to +[address] [facility] Comment on above: Performed By: #### L 8999.0800 ####[facility] [address] [place], [address] Blood Gas Type ART Normal [facility] Comment on above: Performed By: #### L 8999.0800 ####[facility] [address] [place], [address] CO2 [Moles/Vol] 8 mmol/L Normal [facility] Comment on above: Performed By: #### L 0.0800 ####[facility] [address] [place], [address] HCO3 (Bld) [Moles/Vol] 6.9 mmol/L Low 22-26 [facility] Comment on above: Performed By: #### L 0.0800 ####[facility] [address] [place], [address] Mode Not entered Normal [facility] Comment on above: Performed By: #### L 9000.0800 ####[facility] [address] [place], [address] O2 Delivery Dev Room Air [facility] Comment on above: Performed By: #### L 0.0800 ####[facility] [address] [place], [address] pCO2 20.7 mmHg Low 35-[address] [facility] Comment on above: Performed By: #### L 0.0800 ####[facility] [address] [place], [address] pH (Bld) 7.13 [pH] Invalid Interpretation Code 7.35-7.[address] [facility] Comment on above: Performed By: #### L 0.0800 ####[facility] [address] [place], [address] PO2 95 mmHG Normal 75-[address] [facility] Comment on above: Performed By: #### L 0.0800 ####[facility] [address] [place], [address] Read Back By Yes [facility] Comment on above: Performed By: #### L 0.0800 ####[facility] [address] [place], [address] Fernández [facility] Comment on above: Performed By: #### L 0.0800 ####[facility] [address] [place], [address] SITE L Radial Normal [facility] Comment on above: Performed By: #### L 8999.0800 ####[facility] [address] [place], [address] SO2 95 Normal 95-[address] [facility] Comment on above: Performed By: #### L 0.0800 ####[facility] [address] [place], [address] Time Given 00:38:[address] [facility] Comment on above: Performed By: #### L 9000.0800 ####[facility] [address] [place], [address] CBC W/Diff, Automatedon 10-2 Absolute Lymph 2.67 X10 3/uL Normal 0.83-4.[address] [facility] Comment on above: Performed By: #### L 501.2300, L100.0100, L500.2500, L501.4020, L501.9520 ####[facility] [address] [place], [address] Absolute Neut 5.5 X10 3/uL Normal 2.0-7.[address] [facility] Comment on above: Performed By: #### L 501.2300, L100.0100, L500.2500, L501.4020, L501.9520 ####[facility] [address] [place], [address] Basophils/100 WBC (Bld) 0.4 % Normal 0-1 [facility] Comment on above: Performed By: #### L 501.2300, L100.0100, L500.2500, L501.4020, L501.9520 ####[facility] [address] [place], [address] Eosinophils/100 WBC (Bld) 0.2 % Normal 0-[address] [facility] Comment on above: Performed By: #### L 501.2300, L100.0100, L500.2500, L501.4020, L501.9520 ####[facility] [address] [place], [address] Erythrocyte distribution width (RBC) [Ratio] 13.0 % Normal 11.6-14.[address] [facility] Comment on above: Performed By: #### L 501.2300, L100.0100, L500.2500, L501.4020, L501.9520 ####[facility] [address] [place], [address] Hematocrit (Bld) [Volume fraction] 30.3 % Low 37-[address] [facility] Comment on above: Performed By: #### L 501.2300, L100.0100, L500.2500, L501.4020, L501.9520 ####[facility] [address] [place], [address] Hemoglobin (Bld) [Mass/Vol] 10.0 g/dL Low 12.0-15.[address] [facility] Comment on above: Performed By: #### L 501.2300, L100.0100, L500.2500, L501.4020, L501.9520 ####[facility] [address] [place], [address] IG% 0.600 Normal 0.0-0.[address] [facility] Comment on above: Result Comment: IG% - Immature Granulocytes (promyelocytes, myelocytes andmetamyelocytes) > 1% indicates that a LEFT SHIFT is Present. Performed By: #### L 501.2300, L100.0100, L500.2500, L501.4020, L501.9520 ####[facility] [address] [place], [address] Lymphocytes/100 WBC (Bld) 29.5 % Normal 19-[address] [facility] Comment on above: Performed By: #### L 501.2300, L100.0100, L500.2500, L501.4020, L501.9520 ####[facility] [address] [place], [address] MCH (RBC) [Entitic mass] 29.9 pg Normal 27.0-32.[address] [facility] Comment on above: Performed By: #### L 501.2300, L100.0100, L500.2500, L501.4020, L501.9520 ####[facility] [address] [place], [address] MCHC (RBC) [Mass/Vol] 33.0 g/dL Normal 32-36 [facility] Comment on above: Performed By: #### L 501.2300, L100.0100, L500.2500, L501.4020, L501.9520 ####[facility] [address] [place], [address] MCV (RBC) [Entitic vol] 90.7 fL Normal 81-99 [facility] Comment on above: Performed By: #### L 501.2300, L100.0100, L500.2500, L501.4020, L501.9520 ####[facility] [address] [place], [address] Monocytes/100 WBC (Bld) 8.6 % Normal 0-10 [facility] Comment on above: Performed By: #### L 501.2300, L100.0100, L500.2500, L501.4020, L501.9520 ####[facility] [address] [place], [address] Neutrophils/100 WBC (Bld) 60.7 % Normal 47-[address] [facility] Comment on above: Performed By: #### L 501.2300, L100.0100, L500.2500, L501.4020, L501.9520 ####[facility] [address] [place], [address] Nucleated RBC (Bld) [#/Vol] 0 10*3/uL Normal 0-[address] [facility] Comment on above: Performed By: #### L 501.2300, L100.0100, L500.2500, L501.4020, L501.9520 ####[facility] [address] [place], [address] Platelet mean volume (Bld) [Entitic vol] 11.9 fL Normal 6.2-12.[address] [facility] Comment on above: Performed By: #### L 501.2300, L100.0100, L500.2500, L501.4020, L501.9520 ####[facility] [address] [place], [address] Platelets (Bld) [#/Vol] 224 10*3/uL Normal 150-[address] [facility] Comment on above: Performed By: #### L 501.2300, L100.0100, L500.2500, L501.4020, L501.9520 ####[facility] [address] [place], [address] RBC (Bld) [#/Vol] 3.34 10*6/uL Low 4.2-5.4 [facility] Comment on above: Performed By: #### L 501.2300, L100.0100, L500.2500, L501.4020, L501.9520 ####[facility] [address] [place], [address] RDW SD 42.6 fl Normal 35.1-43.[address] [facility] Comment on above: Performed By: #### L 501.2300, L100.0100, L500.2500, L501.4020, L501.9520 ####[facility] [address] [place], [address] WBC (Bld) [#/Vol] 9.1 10*3/uL Normal 4.4-11.0 [facility] Comment on above: Performed By: #### L 501.2300, L100.0100, L500.2500, L501.4020, L501.9520 ####[facility] [address] [place], [address] Hemoglobin A1con 05-03-2024 HbA1c (Bld) [Mass fraction] 13.7 % High 3.8-5.[address] [facility] Comment on above: Result Comment: Norm al < 5.7 % Prediabetic 5.7 - 6.4 % Diabetic >or= 6.5 % Please note range changes. Performed By: #### L 500.2500, L505.5000, L501.9985 ####[facility] [address] [place], [address] L501.4020on 05-03-2024 TROPONIN-I HS 9 pg/mL Normal 3.0-54.[address] [facility] Comment on above: Order Comment: Comme nts: SPECIMEN #3'TROP' Serial specimen #1, #2 or #3: 3Cmeir RICH with results STAT Result Comment: Plea se Note: New Test Units and Gender Specific Reference Ranges. For more information see Policy Stat Procedure [place] High Sensitivity Troponin (TNIH) and attachments. Performed By: #### L 501.2300, L100.0100, L500.2500, L501.4020, L501.9520 ####[facility] [address] [place], [address] TROPONIN-I HS 8 pg/mL Normal 3.0-54.[address] [facility] Comment on above: Order Comment: Comme nts: SPECIMEN #2'TROP' Serial specimen #1, #2 or #3: 2Cmeir RICH with results STAT Result Comment: Plea se Note: New Test Units and Gender Specific Reference Ranges. For more information see Policy Stat Procedure [place] High Sensitivity Troponin (TNIH) and attachments. Performed By: #### L 500.2500, L501.4020 ####[facility] [address] [place], [address] Phosphoruson 05-03-2024 Phosphate [Mass/Vol] 2.1 mg/dL Low 2.5-4.9 [facility] Comment on above: Order Comment: Comme nts: SPECIMEN #3'TROP' Serial specimen #1, #2 or #3: 3Cmeir RICH with results STAT Performed By: #### L 501.2300, L100.0100, L500.2500, L501.4020, L501.9520 ####[facility] [address] [place], [address] Thyroid Stim Hormone (TSH)on 05-03-2024 TSH 0.332 uIU/mL Low 0.358-3.[address] [facility] Comment on above: Order Comment: Comme nts: SPECIMEN #3'TROP' Serial specimen #1, #2 or #3: Alex RICH with results STAT Performed By: #### L 501.2300, L100.0100, L500.2500, L501.4020, L501.9520 ####[facility] [address] [place], [address] Urine Drug Screen (VISTA)on 05-03-2024 AMPHETAMINES Negative Normal <1000 ng/mL [facility] Comment on above: Order Comment: U Performed By: #### L 505.5000 ####[facility] [address] [place], [address] BARBITIURATES Negative Normal < 200 ng/mL [facility] Comment on above: Order Comment: U Performed By: #### L 505.5000 ####[facility] [address] [place], [address] BENZODIAZIPINE Negative Normal < 200 ng/mL [facility] Comment on above: Order Comment: U Performed By: #### L 505.5000 ####[facility] [address] [place], [address] COCAINE Negative Normal < 300 ng/mL [facility] Comment on above: Order Comment: U Performed By: #### L 505.5000 ####[facility] [address] [place], [address] ECSTACY Negative Normal < 500 ng/mL [facility] Comment on above: Order Comment: U Performed By: #### L 505.5000 ####[facility] [address] [place], [address] METHADONE Negative Normal < 300 ng/mL [facility] Comment on above: Order Comment: U Performed By: #### L 505.5000 ####[facility] [address] [place], [address] OPIATES Positive Abnormal < 300 ng/mL [facility] Comment on above: Order Comment: U Performed By: #### L 505.5000 ####[facility] [address] [place], [address] PCP Negative Normal < 25 ng/mL [facility] Comment on above: Order Comment: U Performed By: #### L 505.5000 ####[facility] [address] [place], [address] THC Negative Normal < 50 ng/mL [facility] Comment on above: Order Comment: U Performed By: #### L 505.5000 ####[facility] [address] [place], [address] VISTA UDS PH [address] [facility] Comment on above: Order Comment: U Performed By: #### L 505.5000 ####[facility] [address] [place], [address] Venous Blood Gason 4 Blood Gas Type LIZY Normal [facility] Comment on above: Performed By: #### L 9000.0810 ####[facility] [address] [place], [address] CO2 [Moles/Vol] 17 mmol/L Low 23-[address] [facility] Comment on above: Performed By: #### L 9000.0810 ####[facility] [address] [place], [address] FI02 21.[address] [facility] Comment on above: Performed By: #### L 9000.0810 ####[facility] [address] [place], [address] HCO3 (Bld) [Moles/Vol] 15 mmol/L Low 22-26 [facility] Comment on above: Performed By: #### L 9000.0810 ####[facility] [address] [place], [address] O2 Delivery Dev Not entered Normal [facility] Comment on above: Performed By: #### L 9000.0810 ####[facility] [address] [place], [address] SITE Not entered Normal [facility] Comment on above: Performed By: #### L 9000.0810 ####[facility] [address] [place], [address] VBG BE -12 mmol/L Low -1.0-3.[address] [facility] Comment on above: Performed By: #### L 9000.0810 ####[facility] [address] [place], [address] VBG pCO2 38.2 mmHg Low 41-[address] [facility] Comment on above: Performed By: #### L 9000.0810 ####[facility] [address] [place], [address] VBG pH 7.21 Low 7.32-7.[address] [facility] Comment on above: Performed By: #### L 9000.0810 ####[facility] [address] [place], [address] VBG PO2 71 mmHg High 25-[address] [facility] Comment on above: Performed By: #### L 9000.0810 ####[facility] [address] [place], [address] VBG SO2 90 High 50-[address] [facility] Comment on above: Performed By: #### L 9000.0810 ####[facility] [address] [place], [address] 12 Lead EKGon 05-02-2024 12 Lead EKG Normal [facility] Acetone Serumon 05-02-2024 ACETONE SERUM LARGE Abnormal NEG [facility] Comment on above: Performed By: #### L 501.6900 ####[facility] [address] [place], [address] Alcohol, Blood (Medical)-Ser umon 05-02-2024 SERUM ETOH < 3.[address] [facility] Comment on above: Result Comment: The serum:whole blood ethanol ratio is approximately 1.14and varies slightly with hematocrit.Medical Alcohol reference interval and critical value innon-tolerant individuals; 50 - 100 Impairment 100 Intoxication 100 - 250 Severe Poisoning 250 - 400 Deep/possible fatal coma Performed By: #### L 501.9100 ####[facility] [address] [place], [address] Basic Metabolic Profile (BMP )on 05-02-2024 BUN Normal 7-[address] [facility] Comment on above: Order Comment: Call with results STAT Result Comment: YANICK LAUGHLIN TO CANCEL BY JUNE HAND BINDER CUTTER Performed By: #### L 500.2500, L505.5000, L501.9985 ####[facility] [address] [place], [address] BUN/CRE Normal 10-[address] [facility] Comment on above: Order Comment: Call with results STAT Result Comment: YANICK LAUGHLIN TO CANCEL BY JUNE HAND BINDER CUTTER Performed By: #### L 500.2500, L505.5000, L501.9985 ####[facility] [address] [place], [address] CA,Total Normal 8.5-10.[address] [facility] Comment on above: Order Comment: Call with results STAT Result Comment: YANICK LAUGHLIN TO CANCEL BY JUNE HAND BINDER CUTTER Performed By: #### L 500.2500, L505.5000, L501.9985 ####[facility] [address] [place], [address] CL Normal 98-[address] [facility] Comment on above: Order Comment: Call MD with results STAT Result Comment: DUPL ICATE, OK TO CANCEL BY JUNE HAND BINDER CUTTER Performed By: #### L 500.2500, L505.5000, L501.9985 ####[facility] [address] [place], [address] CO2 Normal 21.0-32.[address] [facility] Comment on above: Order Comment: Call MD with results STAT Result Comment: DUPL VIRALTE, OK TO CANCEL BY JUNE HAND BINDER CUTTER Performed By: #### L 500.2500, L505.5000, L501.9985 ####[facility] [address] [place], [address] CREAT,SERUM Normal 0.55-1.[address] [facility] Comment on above: Order Comment: Call MD with results STAT Result Comment: DUPL VIRALTE, OK TO CANCEL BY JUNE HAND BINDER CUTTER Performed By: #### L 500.2500, L505.5000, L501.9985 ####[facility] [address] [place], [address] EST GFR Normal >[address] [facility] Comment on above: Order Comment: Call with results STAT Result Comment: IFTIKHARL VIRALTE, [place] TO CANCEL BY JUNE HAND BINDER CUTTER Performed By: #### L 500.2500, L505.5000, L501.9985 ####[facility] [address] [place], [address] EST GFR - AA Normal >[address] [facility] Comment on above: Order Comment: Call MD with results STAT Result Comment: DUPL ICATE, OK TO CANCEL BY JUNE HAND BINDER CUTTER Performed By: #### L 500.2500, L505.5000, L501.9985 ####[facility] [address] [place], [address] GAP Normal 5-[address] [facility] Comment on above: Order Comment: Call MD with results STAT Result Comment: [employer]PIT [employer]SE, [place] TO CANCEL BY JUNE HAND BINDER CUTTER Performed By: #### L 500.2500, L505.5000, L501.9985 ####[facility] [address] [place], [address] GLU Normal 74-[address] [facility] Comment on above: Order Comment: Call MD with results STAT Result Comment: [employer], OK TO CANCEL BY JUNE HAND BINDER CUTTER Performed By: #### L 500.2500, L505.5000, L501.9985 ####[facility] [address] [place], [address] Potassium Normal 3.5-5.[address] [facility] Comment on above: Order Comment: Call with results STAT Result Comment: [employer], [place] TO CANCEL BY JUNE HAND BINDER CUTTER Performed By: #### L 500.2500, L505.5000, L501.9985 ####[facility] [address] [place], [address] Basic Metabolic Profile (BMP) Normal 136-[address] [facility] Comment on above: Order Comment: Call MD with results STAT Result Comment: IFTIKHARL VIRALTE, [place] TO CANCEL BY JUNE HAND BINDER CUTTER Performed By: #### L 500.2500, L505.5000, L501.9985 ####[facility] [address] [place], [address] BUN Normal 7-[address] [facility] Comment on above: Result Comment: Canc elled via OM: Duplicate Order Performed By: #### L 500.2500 ####[facility] [address] [place], [address] BUN/CRE Normal 10-[address] [facility] Comment on above: Result Comment: Canc elled via OM: Duplicate Order Performed By: #### L 500.2500 ####[facility] [address] [place], [address] CA,Total Normal 8.5-10.[address] [facility] Comment on above: Result Comment: Canc elled via OM: Duplicate Order Performed By: #### L 500.2500 ####[facility] [address] [place], [address] CL Normal 98-[address] [facility] Comment on above: Result Comment: Canc elled via OM: Duplicate Order Performed By: #### L 500.2500 ####[facility] [address] [place], [address] CO2 Normal 21.0-32.[address] [facility] Comment on above: Result Comment: Canc elled via OM: Duplicate Order Performed By: #### L 500.2500 ####[facility] [address] [place], [address] CREAT,SERUM Normal 0.55-1.[address] [facility] Comment on above: Result Comment: Canc elled via OM: Duplicate Order Performed By: #### L 500.2500 ####[facility] [address] [place], [address] EST GFR Normal >[address] [facility] Comment on above: Result Comment: Canc elled via OM: Duplicate Order Performed By: #### L 500.2500 ####[facility] [address] [place], [address] EST GFR - AA Normal >[address] [facility] Comment on above: Result Comment: Canc elled via OM: Duplicate Order Performed By: #### L 500.2500 ####[facility] [address] [place], [address] GAP Normal 5-[address] [facility] Comment on above: Result Comment: Canc elled via OM: Duplicate Order Performed By: #### L 500.2500 ####[facility] [address] [place], [address] GLU Normal 74-[address] [facility] Comment on above: Result Comment: Canc elled via OM: Duplicate Order Performed By: #### L 500.2500 ####[facility] [address] [place], [address] Potassium Normal 3.5-5.[address] [facility] Comment on above: Result Comment: Canc elled via OM: Duplicate Order Performed By: #### L 500.2500 ####[facility] [address] [place], [address] Basic Metabolic Profile (BMP) Normal 136-[address] [facility] Comment on above: Result Comment: Canc elled via OM: Duplicate Order Performed By: #### L 500.2500 ####[facility] [address] [place], [address] Bedside Glucoseon 05-02-2024 FINGERSTICK GLU 392 mg/dL High 74-[address] [facility] Comment on above: Result Comment: MARIA D GEMENT OF PATIENT CARE PER NURSING PROTOCOL Performed By: #### L 501.080 ####[facility] [address] [place], [address] Blood Gases by CPSon 05-02- 024 BE Normal -2 to +[address] [facility] Comment on above: Result Comment: resu lts in already Performed By: #### L 9000.0800 ####[facility] [address] [place], [address] HCO3 Normal 22-[address] [facility] Comment on above: Result Comment: resu lts in already Performed By: #### L 9000.0800 ####[facility] [address] [place], [address] pCO2 Normal 35-[address] [facility] Comment on above: Result Comment: resu lts in already Performed By: #### L 9000.0800 ####[facility] [address] [place], [address] pH Normal 7.35-7.[address] [facility] Comment on above: Result Comment: resu lts in already Performed By: #### L 9000.0800 ####[facility] [address] [place], [address] PO2 Normal 75-[address] [facility] Comment on above: Result Comment: resu lts in already Performed By: #### L 9000.0800 ####[facility] [address] [place], [address] SO2 Normal 95-[address] [facility] Comment on above: Result Comment: resu lts in already Performed By: #### L 9000.0800 ####[facility] [address] [place], [address] TOTAL CO2 Normal [facility] Comment on above: Result Comment: resu lts in already Performed By: #### L 9000.0800 ####[facility] [address] [place], [address] CBC W/Diff, Automatedon 10-2 Absolute Lymph 1.55 X10 3/uL Normal 0.83-4.[address] [facility] Comment on above: Performed By: #### L 501.2450, L300.8000, L100.0100, L501.4020, L500.4050 ####[facility] [address] [place], [address] Absolute Neut 6.1 X10 3/uL Normal 2.0-7.[address] [facility] Comment on above: Performed By: #### L 501.2450, L300.8000, L100.0100, L501.4020, L500.4050 ####[facility] [address] [place], [address] Basophils/100 WBC (Bld) 0.5 % Normal 0-1 [facility] Comment on above: Performed By: #### L 501.2450, L300.8000, L100.0100, L501.4020, L500.4050 ####[facility] [address] [place], [address] Eosinophils/100 WBC (Bld) 0.5 % Normal 0-[address] [facility] Comment on above: Performed By: #### L 501.2450, L300.8000, L100.0100, L501.4020, L500.4050 ####[facility] [address] [place], [address] Erythrocyte distribution width (RBC) [Ratio] 12.8 % Normal 11.6-14.[address] [facility] Comment on above: Performed By: #### L 501.2450, L300.8000, L100.0100, L501.4020, L500.4050 ####[facility] [address] [place], [address] Hematocrit (Bld) [Volume fraction] 38.0 % Normal 37-[address] [facility] Comment on above: Performed By: #### L 501.2450, L300.8000, L100.0100, L501.4020, L500.4050 ####[facility] [address] [place], [address] Hemoglobin (Bld) [Mass/Vol] 12.4 g/dL Normal 12.0-15.[address] [facility] Comment on above: Performed By: #### L 501.2450, L300.8000, L100.0100, L501.4020, L500.4050 ####[facility] [address] [place], [address] IG% 0.500 Normal 0.0-0.[address] [facility] Comment on above: Result Comment: IG% - Immature Granulocytes (promyelocytes, myelocytes andmetamyelocytes) > 1% indicates that a LEFT SHIFT is Present. Performed By: #### L 501.2450, L300.8000, L100.0100, L501.4020, L500.4050 ####[facility] [address] [place], [address] Lymphocytes/100 WBC (Bld) 18.9 % Low 19-[address] [facility] Comment on above: Performed By: #### L 501.2450, L300.8000, L100.0100, L501.4020, L500.4050 ####[facility] [address] [place], [address] MCH (RBC) [Entitic mass] 29.6 pg Normal 27.0-32.[address] [facility] Comment on above: Performed By: #### L 501.2450, L300.8000, L100.0100, L501.4020, L500.4050 ####[facility] [address] [place], [address] MCHC (RBC) [Mass/Vol] 32.6 g/dL Normal 32-36 [facility] Comment on above: Performed By: #### L 501.2450, L300.8000, L100.0100, L501.4020, L500.4050 ####[facility] [address] [place], [address] MCV (RBC) [Entitic vol] 90.7 fL Normal 81-99 [facility] Comment on above: Performed By: #### L 501.2450, L300.8000, L100.0100, L501.4020, L500.4050 ####[facility] [address] [place], [address] Monocytes/100 WBC (Bld) 5.5 % Normal 0-10 [facility] Comment on above: Performed By: #### L 501.2450, L300.8000, L100.0100, L501.4020, L500.4050 ####[facility] [address] [place], [address] Neutrophils/100 WBC (Bld) 74.1 % High 47-[address] [facility] Comment on above: Performed By: #### L 501.2450, L300.8000, L100.0100, L501.4020, L500.4050 ####[facility] [address] [place], [address] Nucleated RBC (Bld) [#/Vol] 0 10*3/uL Normal 0-[address] [facility] Comment on above: Performed By: #### L 501.2450, L300.8000, L100.0100, L501.4020, L500.4050 ####[facility] [address] [place], [address] Platelet mean volume (Bld) [Entitic vol] 11.7 fL Normal 6.2-12.[address] [facility] Comment on above: Performed By: #### L 501.2450, L300.8000, L100.0100, L501.4020, L500.4050 ####[facility] [address] [place], [address] Platelets (Bld) [#/Vol] 288 10*3/uL Normal 150-[address] [facility] Comment on above: Performed By: #### L 501.2450, L300.8000, L100.0100, L501.4020, L500.4050 ####[facility] [address] [place], [address] RBC (Bld) [#/Vol] 4.19 10*6/uL Low 4.2-5.4 [facility] Comment on above: Performed By: #### L 501.2450, L300.8000, L100.0100, L501.4020, L500.4050 ####[facility] [address] [place], [address] RDW SD 42.3 fl Normal 35.1-43.[address] [facility] Comment on above: Performed By: #### L 501.2450, L300.8000, L100.0100, L501.4020, L500.4050 ####[facility] [address] [place], [address] WBC (Bld) [#/Vol] 8.2 10*3/uL Normal 4.4-11.0 [facility] Comment on above: Performed By: #### L 501.2450, L300.8000, L100.0100, L501.4020, L500.4050 ####[facility] [address] [place], [address] Chest PA and Lateralon 05-02 Chest PA and Lateral Normal [facility] Comprehensive Metabolic Prof ilon 05-02-2024 Albumin [Mass/Vol] 4.3 g/dL Normal 3.2-5.0 [facility] Comment on above: Order Comment: 'TROP ' Serial specimen #1, #2 or #3: 1 Performed By: #### L 501.2450, L300.8000, L100.0100, L501.4020, L500.4050 ####[facility] [address] [place], [address] Albumin/Globulin [Mass ratio] 1.1 {ratio} Normal 0.9-2.[address] [facility] Comment on above: Order Comment: 'TROP ' Serial specimen #1, #2 or #3: 1 Performed By: #### L 501.2450, L300.8000, L100.0100, L501.4020, L500.4050 ####[facility] [address] [place], [address] ALK P 112 U/L Normal 45-[address] [facility] Comment on above: Order Comment: 'TROP ' Serial specimen #1, #2 or #3: 1 Performed By: #### L 501.2450, L300.8000, L100.0100, L501.4020, L500.4050 ####[facility] [address] [place], [address] ALT [Catalytic activity/Vol] 15 U/L Normal 13-[address] [facility] Comment on above: Order Comment: 'TROP ' Serial specimen #1, #2 or #3: 1 Performed By: #### L 501.2450, L300.8000, L100.0100, L501.4020, L500.4050 ####[facility] [address] [place], [address] AST [Catalytic activity/Vol] 7 U/L Low 15-[address] [facility] Comment on above: Order Comment: 'TROP ' Serial specimen #1, #2 or #3: 1 Performed By: #### L 501.2450, L300.8000, L100.0100, L501.4020, L500.4050 ####[facility] [address] [place], [address] Bilirubin [Mass/Vol] 0.50 mg/dL Normal 0.20-1.00 [facility] Comment on above: Order Comment: 'TROP ' Serial specimen #1, #2 or #3: 1 Result Comment: For patients on eltrombopag therapy, use of Dimension [place] TBIL is not recommended. Performed By: #### L 501.2450, L300.8000, L100.0100, L501.4020, L500.4050 ####[facility] [address] [place], [address] BUN/CRE 16.5 RATIO Normal 10-[address] [facility] Comment on above: Order Comment: 'TROP ' Serial specimen #1, #2 or #3: 1 Performed By: #### L 501.2450, L300.8000, L100.0100, L501.4020, L500.4050 ####[facility] [address] [place], [address] CA,Total 10.1 mg/dL Normal 8.5-10.[address] [facility] Comment on above: Order Comment: 'TROP ' Serial specimen #1, #2 or #3: 1 Performed By: #### L 501.2450, L300.8000, L100.0100, L501.4020, L500.4050 ####[facility] [address] [place], [address] Chloride [Moles/Vol] 101 mmol/L Normal 98-107 [facility] Comment on above: Order Comment: 'TROP ' Serial specimen #1, #2 or #3: 1 Performed By: #### L 501.2450, L300.8000, L100.0100, L501.4020, L500.4050 ####[facility] [address] [place], [address] CO2 [Moles/Vol] 10.0 mmol/L Low 21.0-32.[address] [facility] Comment on above: Order Comment: 'TROP ' Serial specimen #1, #2 or #3: 1 Performed By: #### L 501.2450, L300.8000, L100.0100, L501.4020, L500.4050 ####[facility] [address] [place], [address] Creatinine [Mass/Vol] 1.33 mg/dL High 0.55-1.02 [facility] Comment on above: Order Comment: 'TROP ' Serial specimen #1, #2 or #3: 1 Result Comment: The validity of the calculated GFR GFRAA in patients over70 years has not been determined. Clinical correlation isessential. Performed By: #### L 501.2450, L300.8000, L100.0100, L501.4020, L500.4050 ####[facility] [address] [place], [address] ECRCL 36.00 ml/min Normal [facility] Comment on above: Order Comment: 'TROP ' Serial specimen #1, #2 or #3: 1 Performed By: #### L 501.2450, L300.8000, L100.0100, L501.4020, L500.4050 ####[facility] [address] [place], [address] EST GFR - AA 52 mL/min Low >[address] [facility] Comment on above: Order Comment: 'TROP ' Serial specimen #1, #2 or #3: 1 Result Comment: Afri can [place] GFR Calc Performed By: #### L 501.2450, L300.8000, L100.0100, L501.4020, L500.4050 ####[facility] [address] [place], [address] GAP 21 High 5-[address] [facility] Comment on above: Order Comment: 'TROP ' Serial specimen #1, #2 or #3: 1 Performed By: #### L 501.2450, L300.8000, L100.0100, L501.4020, L500.4050 ####[facility] [address] [place], [address] GFR/1.73 sq M.predicted among non-blacks MDRD (S/P/Bld) [Vol rate/Area] 43 mL/min/{1.73_m2} Low >[address] [facility] Comment on above: Order Comment: 'TROP ' Serial specimen #1, #2 or #3: 1 Result Comment: Non- GFR Calc Performed By: #### L 501.2450, L300.8000, L100.0100, L501.4020, L500.4050 ####[facility] [address] [place], [address] Globulin (S) [Mass/Vol] 4.0 g/dL Normal 2.2-4.2 [facility] Comment on above: Order Comment: 'TROP ' Serial specimen #1, #2 or #3: 1 Performed By: #### L 501.2450, L300.8000, L100.0100, L501.4020, L500.4050 ####[facility] [address] [place], [address] Glucose [Mass/Vol] 437 mg/dL High 74-106 [facility] Comment on above: Order Comment: 'TROP ' Serial specimen #1, #2 or #3: 1 Result Comment: Gluc ose result greater than or equal to 200 mg/dLsuggests DIABETES MELLITUS per A.D.A. criteria. Performed By: #### L 501.2450, L300.8000, L100.0100, L501.4020, L500.4050 ####[facility] [address] [place], [address] Potassium [Moles/Vol] 3.8 mmol/L Normal 3.5-5.1 [facility] Comment on above: Order Comment: 'TROP ' Serial specimen #1, #2 or #3: 1 Performed By: #### L 501.2450, L300.8000, L100.0100, L501.4020, L500.4050 ####[facility] [address] [place], [address] Sodium [Moles/Vol] 132 mmol/L Low 136-145 [facility] Comment on above: Order Comment: 'TROP ' Serial specimen #1, #2 or #3: 1 Performed By: #### L 501.2450, L300.8000, L100.0100, L501.4020, L500.4050 ####[facility] [address] [place], [address] T PROT 8.3 g/dL High 6.4-8.[address] [facility] Comment on above: Order Comment: 'TROP ' Serial specimen #1, #2 or #3: 1 Performed By: #### L 501.2450, L300.8000, L100.0100, L501.4020, L500.4050 ####[facility] [address] [place], [address] Urea nitrogen [Mass/Vol] 22 mg/dL High 7-[address] [facility] Comment on above: Order Comment: 'TROP ' Serial specimen #1, #2 or #3: 1 Performed By: #### L 501.2450, L300.8000, L100.0100, L501.4020, L500.4050 ####[facility] [address] [place], [address] D-Dimer Quantitative (DVT/PE )on 05-02-2024 D-DIMER QUANT 0.37 FEU/ug/m Normal 0.27-0.[address] [facility] Comment on above: Result Comment: NORM AL D-Dimer level (<0.50) indicates no DVT or PE. Performed By: #### L 501.2450, L300.8000, L100.0100, L501.4020, L500.4050 ####[facility] [address] [place], [address] Emergency Department Summary on 05-02-2024 Emergency Department Summary Normal [facility] H AND P Exam - Hospitaliston 05-02-2024 H&P Exam - Hospitalist Normal [facility] L501.4020on 05-02-2024 TROPONIN-I HS 5 pg/mL Normal 3.0-54.[address] [facility] Comment on above: Order Comment: 'TROP ' Serial specimen #1, #2 or #3: 1 Result Comment: Plefifi gabriel Note: New Test Units and Gender Specific Reference Ranges. For more information see Policy Stat Procedure [place] High Sensitivity Troponin (TNIH) and attachments. Performed By: #### L 501.2450, L300.8000, L100.0100, L501.4020, L500.4050 ####[facility] [address] [place], [address] Lactic Acidon 05-02-2024 Lactate [Moles/Vol] 0.9 mmol/L Normal 0.4-1.9 [facility] Comment on above: Order Comment: Y Performed By: #### L 503.2492 ####[facility] [address] [place], [address] Lipaseon 05-02-2024 Lipase [Catalytic activity/Vol] 41 U/L Normal 13-[address] [facility] Comment on above: Order Comment: 'TROP ' Serial specimen #1, #2 or #3: 1 Result Comment: Lindy gabriel note:LIPASE revised reference range effective 22.New Lipase methodology. Expected to produce lower valuesthan the previous assay method.NEW Reference Range: 13 - 75 U/L Performed By: #### L 501.2450, L300.8000, L100.0100, L501.4020, L500.4050 ####[facility] [address] [place], [address] Magnesiumon 05-02-2024 Magnesium [Mass/Vol] 2.2 mg/dL Normal 1.6-2.6 [facility] Comment on above: Performed By: #### L 501.5200 ####[facility] [address] [place], [address] Osmolality, Serumon 05-02-20 24 OSMOLALITY,SER 334 mOsm/KG High 280-[address] [facility] Comment on above: Order Comment: Comme nts: Add to ER Lab draw Performed By: #### L 501.7300 ####[facility] [address] [place], [address] Urinalysis, Completeon 05-02 BACTERIA 1+ /hpf Normal None Seen [facility] Comment on above: Order Comment: CLEAN CATCH Performed By: #### L 400.0001 ####[facility] [address] [place], [address] CAST,FINE GRAN 0-5 SEEN Normal 0-[address] [facility] Comment on above: Order Comment: CLEAN CATCH Performed By: #### L 400.0001 ####[facility] [address] [place], [address] CAST,HYALINE 0-5 SEEN Normal 0-[address] [facility] Comment on above: Order Comment: CLEAN CATCH Performed By: #### L 400.0001 ####[facility] [address] [place], [address] EPI,SQUAMOUS 5-10 SEEN Normal 5-[address] [facility] Comment on above: Order Comment: CLEAN CATCH Performed By: #### L 400.0001 ####[facility] [address] [place], [address] WBC 25-50 SEEN Normal 0-[address] [facility] Comment on above: Order Comment: CLEAN CATCH Performed By: #### L 400.0001 ####[facility] [address] [place], [address] KETONE UR 150 mg/dl Abnormal Negative [facility] Comment on above: Order Comment: CLEAN CATCH Result Comment: CRIT ICAL VALUE *HCRITICAL VALUE CALLED TO APOLONIA [id number] Bruce Alexandra.RESULTS READ BACK BY SAME. Performed By: #### L 400.0001 ####[facility] [address] [place], [address] BILIRUBIN URINE Negative Normal Negative [facility] Comment on above: Order Comment: CLEAN CATCH Performed By: #### L 400.0001 ####[facility] [address] [place], [address] Clarity (U) Clear Normal Clear [facility] Comment on above: Order Comment: CLEAN CATCH Performed By: #### L 400.0001 ####[facility] [address] [place], [address] Color (U) Straw Normal Yellow [facility] Comment on above: Order Comment: CLEAN CATCH Performed By: #### L 400.0001 ####[facility] [address] [place], [address] GLUCOSE, UR 1000 mg/dl Abnormal Normal [facility] Comment on above: Order Comment: CLEAN CATCH Performed By: #### L 400.0001 ####[facility] [address] [place], [address] LEUK ESTERASE 100 /ul Abnormal Negative [facility] Comment on above: Order Comment: CLEAN CATCH Performed By: #### L 400.0001 ####[facility] [address] [place], [address] Nitrite Ql (U) Negative Normal Negative [facility] Comment on above: Order Comment: CLEAN CATCH Performed By: #### L 400.0001 ####[facility] [address] [place], [address] OCCULT BLOOD-UR 10 /ul Abnormal Negative [facility] Comment on above: Order Comment: CLEAN CATCH Performed By: #### L 400.0001 ####[facility] [address] [place], [address] pH UR 5.0 Normal 5.0 - 8.[address] [facility] Comment on above: Order Comment: CLEAN CATCH Performed By: #### L 400.0001 ####[facility] [address] [facility] [address] PROT DIPSTX 100 mg/dl Abnormal Negative [facility] Comment on above: Order Comment: CLEAN CATCH Performed By: #### L 400.0001 ####[facility] [address] [place], [address] SP.GR. DIPSTX 1.025 Normal 1.002-1.[address] [facility] Comment on above: Order Comment: CLEAN CATCH Performed By: #### L 400.0001 ####[facility] [address] [place], [address] UROBILI Normal Normal Normal [facility] Comment on above: Order Comment: CLEAN CATCH Performed By: #### L 400.0001 ####[facility] [address] [place], [address] Mucus Ql (Urine sed) 0 SEEN Normal [facility] Comment on above: Order Comment: CLEAN CATCH Performed By: #### L 400.0001 ####[facility] [address] [place], [address] RBC 0 SEEN Normal 0-[address] [facility] Comment on above: Order Comment: CLEAN CATCH Performed By: #### L 400.0001 ####[facility] [address] [place], [address] Urine Drug Screen (VISTA)on 05-02-2024 DRUG CONFIRM Normal [facility] Comment on above: Result Comment: NOT [...] Performed By: #### L 500.2500, L505.5000, L501.9985 ####[facility] [address] [place], [address] AMPHETAMINES Normal <1000 ng/mL [facility] Comment on above: Result Comment: NOT ENOUGH URINE Performed By: #### L 500.2500, L505.5000, L501.9985 ####[facility] [address] [place], [address] BARBITIURATES Normal < 200 ng/mL [facility] Comment on above: Result Comment: NOT ENOUGH URINE Performed By: #### L 500.2500, L505.5000, L501.9985 ####[facility] [address] [facility] [address] BENZODIAZIPINE Normal < 200 ng/mL [facility] Comment on above: Result Comment: NOT ENOUGH URINE Performed By: #### L 500.2500, L505.5000, L501.9985 ####[facility] [address] [place], [address] COCAINE Normal < 300 ng/mL [facility] Comment on above: Result Comment: NOT ENOUGH URINE Performed By: #### L 500.2500, L505.5000, L501.9985 ####[facility] [address] [place], [address] ECSTACY Normal < 500 ng/mL [facility] Comment on above: Result Comment: NOT ENOUGH URINE Performed By: #### L 500.2500, L505.5000, L501.9985 ####[facility] [address] [place], [address] METHADONE Normal < 300 ng/mL [facility] Comment on above: Result Comment: NOT ENOUGH URINE Performed By: #### L 500.2500, L505.5000, L501.9985 ####[facility] [address] [place], [address] OPIATES Normal < 300 ng/mL [facility] Comment on above: Result Comment: NOT ENOUGH URINE Performed By: #### L 500.2500, L505.5000, L501.9985 ####[facility] [address] [place], [address] PCP Normal < 25 ng/mL [facility] Comment on above: Result Comment: NOT ENOUGH URINE Performed By: #### L 500.2500, L505.5000, L501.9985 ####[facility] [address] [place], [address] THC Normal < 50 ng/mL [facility] Comment on above: Result Comment: NOT ENOUGH URINE Performed By: #### L 500.2500, L505.5000, L501.9985 ####[facility] [address] [place], [address] VISTA UDS PH Normal [facility] Comment on above: Result Comment: NOT ENOUGH URINE Performed By: #### L 500.2500, L505.5000, L501.9985 ####[facility] [address] [place], [address] Bedside Glucoseon 03-09-2024 FINGERSTICK GLU 379 mg/dL High 74-[address] [facility] Comment on above: Result Comment: MARIA D GEMENT OF PATIENT CARE PER NURSING PROTOCOL Performed By: #### L 501.080 ####[facility] [address] [place], [address] FINGERSTICK GLU 40 mg/dL Invalid Interpretation Code [address] [place] [address] Comment on above: Result Comment: MARIA D GEMENT OF PATIENT CARE PER NURSING PROTOCOL Performed By: #### L 501.080 ####[facility] [address] [place], [address] FINGERSTICK GLU 35 mg/dL Invalid Interpretation Code [address] [place] [address] Comment on above: Result Comment: Repe at TestMANAGEMENT OF PATIENT CARE PER NURSING PROTOCOL Performed By: #### L 501.080 ####[facility] [address] [place], [address] Basic Metabolic Profile (BMP )on 03-05-2024 BUN/CRE 4.9 RATIO Low 10-[address] [facility] Comment on above: Performed By: #### L 500.2500, L501.2300 ####[facility] [address] [place], [address] CA,Total 8.9 mg/dL Normal 8.5-10.[address] [facility] Comment on above: Performed By: #### L 500.2500, L501.2300 ####[facility] [address] [place], [address] Chloride [Moles/Vol] 106 mmol/L Normal 98-107 [facility] Comment on above: Performed By: #### L 500.2500, L501.2300 ####[facility] [address] [place], [address] CO2 [Moles/Vol] 31.0 mmol/L Normal 21.0-32.[address] [facility] Comment on above: Performed By: #### L 500.2500, L501.2300 ####[facility] [address] [place], [address] Creatinine [Mass/Vol] 0.61 mg/dL Normal 0.55-1.02 [facility] Comment on above: Result Comment: The validity of the calculated GFR GFRAA in patients over70 years has not been determined. Clinical correlation isessential. Performed By: #### L 500.2500, L501.2300 ####[facility] [address] [place], [address] ECRCL 80.12 ml/min Normal [facility] Comment on above: Performed By: #### L 500.2500, L501.2300 ####[facility] [address] [place], [address] EST GFR - AA 127 mL/min Normal >[address] [facility] Comment on above: Result Comment: Afri can [place] GFR Calc Performed By: #### L 500.2500, L501.2300 ####[facility] [address] [place], [address] GAP 4 Low 5-[address] [facility] Comment on above: Performed By: #### L 500.2500, L501.2300 ####[facility] [address] [place], [address] GFR/1.73 sq M.predicted among non-blacks MDRD (S/P/Bld) [Vol rate/Area] 105 mL/min/{1.73_m2} Normal >[address] [facility] Comment on above: Result Comment: Non- GFR Calc Performed By: #### L 500.2500, L501.2300 ####[facility] [address] [place], [address] Glucose [Mass/Vol] 147 mg/dL High 74-106 [facility] Comment on above: Result Comment: Fast ing Glucose result greater than or equal to 126 mg/dLsuggests DIABETES MELLITUS per A.D.A. criteria. Performed By: #### L 500.2500, L501.2300 ####[facility] [address] [place], [address] Potassium [Moles/Vol] 2.7 mmol/L Invalid Interpretation Code 3.5-5.[address] [facility] Comment on above: Result Comment: Crit ical Result(s) Called at: 07:24:22 03/05/2024 by: Marifer Arellano RN ([facility]). Results read back by same. Performed By: #### L 500.2500, L501.2300 ####[facility] [address] [place], [address] Sodium [Moles/Vol] 141 mmol/L Normal 136-145 [facility] Comment on above: Performed By: #### L 500.2500, L501.2300 ####[facility] [address] [place], [address] Urea nitrogen [Mass/Vol] 3 mg/dL Low 7-[address] [facility] Comment on above: Performed By: #### L 500.2500, L501.2300 ####[facility] [address] [place], [address] Bedside Glucoseon 03-05-2024 FINGERSTICK GLU 220 mg/dL High 74-[address] [facility] Comment on above: Result Comment: MARIA D SERRANO OF PATIENT CARE PER NURSING PROTOCOL Performed By: #### L 501.080 ####[facility] [address] [place], [address] FINGERSTICK GLU 132 mg/dL High 74-[address] [facility] Comment on above: Result Comment: MARIA D GEMENT OF PATIENT CARE PER NURSING PROTOCOL Performed By: #### L 501.080 ####[facility] [address] [place], [address] FINGERSTICK GLU 113 mg/dL High 74-[address] [facility] Comment on above: Result Comment: MARIA D GEMENT OF PATIENT CARE PER NURSING PROTOCOL Performed By: #### L 501.080 ####[facility] [address] [place], [address] Discharge Instructionon 02-06 Discharge Instruction Normal [facility] Phosphoruson 03-05-2024 Phosphate [Mass/Vol] 2.8 mg/dL Normal 2.5-4.9 [facility] Comment on above: Performed By: #### L 500.2500, L501.2300 ####[facility] [address] [place], [address] Basic Metabolic Profile (BMP )on 03-04-2024 BUN/CRE 5.9 RATIO Low 10-[address] [facility] Comment on above: Performed By: #### L 500.2500 ####[facility] [address] [place], [address] CA,Total 8.9 mg/dL Normal 8.5-10.[address] [facility] Comment on above: Performed By: #### L 500.2500 ####[facility] [address] [place], [address] Chloride [Moles/Vol] 110 mmol/L High 98-107 [facility] Comment on above: Performed By: #### L 500.2500 ####[facility] [address] [place], [address] CO2 [Moles/Vol] 28.0 mmol/L Normal 21.0-32.[address] [facility] Comment on above: Performed By: #### L 500.2500 ####[facility] [address] [place], [address] Creatinine [Mass/Vol] 0.68 mg/dL Normal 0.55-1.02 [facility] Comment on above: Result Comment: The validity of the calculated GFR GFRAA in patients over70 years has not been determined. Clinical correlation isessential. Performed By: #### L 500.2500 ####[facility] [address] [place], [address] ECRCL 71.87 ml/min Normal [facility] Comment on above: Performed By: #### L 500.2500 ####[facility] [address] [place], [address] EST GFR - AA 113 mL/min Normal >[address] [facility] Comment on above: Result Comment: Afri can [place] GFR Calc Performed By: #### L 500.2500 ####[facility] [address] [place], [address] GAP 3 Low 5-[address] [facility] Comment on above: Performed By: #### L 500.2500 ####[facility] [address] [place], [address] GFR/1.73 sq M.predicted among non-blacks MDRD (S/P/Bld) [Vol rate/Area] 93 mL/min/{1.73_m2} Normal >[address] [facility] Comment on above: Result Comment: Non- GFR Calc Performed By: #### L 500.2500 ####[facility] [address] [place], [address] Glucose [Mass/Vol] 163 mg/dL High 74-106 [facility] Comment on above: Result Comment: Fast ing Glucose result greater than or equal to 126 mg/dLsuggests DIABETES MELLITUS per A.D.A. criteria. Performed By: #### L 500.2500 ####[facility] [address] [place], [address] Potassium [Moles/Vol] 3.0 mmol/L Low 3.5-5.1 [facility] Comment on above: Performed By: #### L 500.2500 ####[facility] [address] [place], [address] Sodium [Moles/Vol] 141 mmol/L Normal 136-145 [facility] Comment on above: Performed By: #### L 500.2500 ####[facility] [address] [place], [address] Urea nitrogen [Mass/Vol] 4 mg/dL Low 7-[address] [facility] Comment on above: Performed By: #### L 500.2500 ####[facility] [address] [place], [address] BUN/CRE 8.7 RATIO Low 10-[address] [facility] Comment on above: Performed By: #### L 500.2500 ####[facility] [address] [place], [address] CA,Total 8.9 mg/dL Normal 8.5-10.[address] [facility] Comment on above: Performed By: #### L 500.2500 ####[facility] [address] [place], [address] Chloride [Moles/Vol] 110 mmol/L High 98-107 [facility] Comment on above: Performed By: #### L 500.2500 ####[facility] [address] [place], [address] CO2 [Moles/Vol] 27.0 mmol/L Normal 21.0-32.[address] [facility] Comment on above: Performed By: #### L 500.2500 ####[facility] [address] [place], [address] Creatinine [Mass/Vol] 0.57 mg/dL Normal 0.55-1.02 [facility] Comment on above: Result Comment: The validity of the calculated GFR GFRAA in patients over70 years has not been determined. Clinical correlation isessential. Performed By: #### L 500.2500 ####[facility] [address] [place], [address] ECRCL 85.74 ml/min Normal [facility] Comment on above: Performed By: #### L 500.2500 ####[facility] [address] [place], [address] EST GFR - AA 137 mL/min Normal >[address] [facility] Comment on above: Result Comment: Afri can [place] GFR Calc Performed By: #### L 500.2500 ####[facility] [address] [place], [address] GAP 5 Normal 5-[address] [facility] Comment on above: Performed By: #### L 500.2500 ####[facility] [address] [place], [address] GFR/1.73 sq M.predicted among non-blacks MDRD (S/P/Bld) [Vol rate/Area] 114 mL/min/{1.73_m2} Normal >[address] [facility] Comment on above: Result Comment: Non- GFR Calc Performed By: #### L 500.2500 ####[facility] [address] [place], [address] Glucose [Mass/Vol] 118 mg/dL High 74-106 [facility] Comment on above: Result Comment: Fast ing Glucose result from 100 to 125 mg/dLsuggests IMPAIRED HOMEOSTASIS per A.D.A. criteria. Performed By: #### L 500.2500 ####[facility] [address] [place], [address] Potassium [Moles/Vol] 2.5 mmol/L Invalid Interpretation Code 3.5-5.[address] [facility] Comment on above: Result Comment: Crit ical Result(s) Called at: 06:44:23 03/04/2024 by:Nina Guajardo to Jayde. Results read back by same. Performed By: #### L 500.2500 ####[facility] [address] [place], [address] Sodium [Moles/Vol] 142 mmol/L Normal 136-145 [facility] Comment on above: Performed By: #### L 500.2500 ####[facility] [address] [place], [address] Urea nitrogen [Mass/Vol] 5 mg/dL Low 7-[address] [facility] Comment on above: Performed By: #### L 500.2500 ####[facility] [address] [place], [address] Bedside Glucoseon 03-04-2024 FINGERSTICK GLU 217 mg/dL High 74-[address] [facility] Comment on above: Result Comment: MARIA D GEMENT OF PATIENT CARE PER NURSING PROTOCOL Performed By: #### L 501.080 ####[facility] [address] [place], [address] FINGERSTICK GLU 82 mg/dL Normal 74-[address] [facility] Comment on above: Result Comment: MARIA D GEMENT OF PATIENT CARE PER NURSING PROTOCOL Performed By: #### L 501.080 ####[facility] [address] [place], [address] FINGERSTICK GLU 181 mg/dL High 74-[address] [facility] Comment on above: Result Comment: MARIA D GEMENT OF PATIENT CARE PER NURSING PROTOCOL Performed By: #### L 501.080 ####[facility] [address] [place], [address] FINGERSTICK GLU 112 mg/dL High 74-[address] [facility] Comment on above: Result Comment: MARIA D GEMENT OF PATIENT CARE PER NURSING PROTOCOL Performed By: #### L 501.080 ####[facility] [address] [place], [address] FINGERSTICK GLU 107 mg/dL High 74-[address] [facility] Comment on above: Result Comment: MRAIA D GEMENT OF PATIENT CARE PER NURSING PROTOCOL Performed By: #### L 501.080 ####[facility] [address] [place], [address] FINGERSTICK GLU 50 mg/dL Low 74-[address] [facility] Comment on above: Result Comment: MARIA D GEMENT OF PATIENT CARE PER NURSING PROTOCOL Performed By: #### L 501.080 ####[facility] [address] [place], [address] Magnesiumon 03-04-2024 Magnesium [Mass/Vol] 2.0 mg/dL Normal 1.6-2.6 [facility] Comment on above: Performed By: #### L 501.2300, L501.5200 ####[facility] [address] [place], [address] Phosphoruson 03-04-2024 Phosphate [Mass/Vol] 1.2 mg/dL Low 2.5-4.9 [facility] Comment on above: Performed By: #### L 501.2300, L501.5200 ####[facility] [address] [place], [address] Basic Metabolic Profile (BMP )on 03-03-2024 BUN/CRE 12.3 RATIO Normal 10-[address] [facility] Comment on above: Performed By: #### L 500.2500, L100.0100 ####[facility] [address] [place], [address] CA,Total 9.6 mg/dL Normal 8.5-10.[address] [facility] Comment on above: Performed By: #### L 500.2500, L100.0100 ####[facility] [address] [place], [address] Chloride [Moles/Vol] 115 mmol/L High 98-107 [facility] Comment on above: Performed By: #### L 500.2500, L100.0100 ####[facility] [address] [place], [address] CO2 [Moles/Vol] 21.0 mmol/L Normal 21.0-32.[address] [facility] Comment on above: Performed By: #### L 500.2500, L100.0100 ####[facility] [address] [place], [address] Creatinine [Mass/Vol] 0.73 mg/dL Normal 0.55-1.02 [facility] Comment on above: Result Comment: The validity of the calculated GFR GFRAA in patients over70 years has not been determined. Clinical correlation isessential. Performed By: #### L 500.2500, L100.0100 ####[facility] [address] [place], [address] ECRCL 66.95 ml/min Normal [facility] Comment on above: Performed By: #### L 500.2500, L100.0100 ####[facility] [address] [place], [address] EST GFR - AA 103 mL/min Normal >[address] [facility] Comment on above: Result Comment: Afri can [place] GFR Calc Performed By: #### L 500.2500, L100.0100 ####[facility] [address] [place], [address] GAP 5 Normal 5-[address] [facility] Comment on above: Performed By: #### L 500.2500, L100.0100 ####[facility] [address] [place], [address] GFR/1.73 sq M.predicted among non-blacks MDRD (S/P/Bld) [Vol rate/Area] 85 mL/min/{1.73_m2} Normal >[address] [facility] Comment on above: Result Comment: Non- GFR Calc Performed By: #### L 500.2500, L100.0100 ####[facility] [address] [place], [address] Glucose [Mass/Vol] 67 mg/dL Low 74-106 [facility] Comment on above: Performed By: #### L 500.2500, L100.0100 ####[facility] [address] [place], [address] Potassium [Moles/Vol] 2.6 mmol/L Invalid Interpretation Code 3.5-5.[address] [facility] Comment on above: Result Comment: Crit ical Result(s) Called at: 07:53:32 03/03/2024 by: Marifer Frances RN ([facility]). Results read back by same. Performed By: #### L 500.2500, L100.0100 ####[facility] [address] [place], [address] Sodium [Moles/Vol] 141 mmol/L Normal 136-145 [facility] Comment on above: Performed By: #### L 500.2500, L100.0100 ####[facility] [address] [place], [address] Urea nitrogen [Mass/Vol] 9 mg/dL Normal 7-[address] [facility] Comment on above: Performed By: #### L 500.2500, L100.0100 ####[facility] [address] [place], [address] Bedside Glucoseon 03-03-2024 FINGERSTICK GLU 185 mg/dL High 74-[address] [facility] Comment on above: Result Comment: MARIA D SERRANO OF PATIENT CARE PER NURSING PROTOCOL Performed By: #### L 501.080 ####[facility] [address] [place], [address] FINGERSTICK GLU 184 mg/dL High 74-[address] [facility] Comment on above: Result Comment: MARIA D GEMENT OF PATIENT CARE PER NURSING PROTOCOL Performed By: #### L 501.080 ####[facility] [address] [place], [address] FINGERSTICK GLU 146 mg/dL High 74-[address] [facility] Comment on above: Result Comment: MARIA D GEMENT OF PATIENT CARE PER NURSING PROTOCOL Performed By: #### L 501.080 ####[facility] [address] [place], [address] FINGERSTICK GLU 71 mg/dL Low 74-[address] [facility] Comment on above: Result Comment: MARIA D GEMENT OF PATIENT CARE PER NURSING PROTOCOL Performed By: #### L 501.080 ####[facility] [address] [place], [address] FINGERSTICK GLU 137 mg/dL High 74-[address] [facility] Comment on above: Result Comment: MARIA D GEMENT OF PATIENT CARE PER NURSING PROTOCOL Performed By: #### L 501.080 ####[facility] [address] [place], [address] FINGERSTICK GLU 94 mg/dL Normal 74-[address] [facility] Comment on above: Result Comment: MARIA D GEMENT OF PATIENT CARE PER NURSING PROTOCOL Performed By: #### L 501.080 ####[facility] [address] [place], [address] CBC W/Diff, Automatedon 08-2 Absolute Lymph 1.54 X10 3/uL Normal 0.83-4.[address] [facility] Comment on above: Performed By: #### L 500.2500, L100.0100 ####[facility] [address] [place], [address] Absolute Neut 2.3 X10 3/uL Normal 2.0-7.[address] [facility] Comment on above: Performed By: #### L 500.2500, L100.0100 ####[facility] [address] [place], [address] Basophils/100 WBC (Bld) 0.5 % Normal 0-1 [facility] Comment on above: Performed By: #### L 500.2500, L100.0100 ####[facility] [address] [place], [address] Eosinophils/100 WBC (Bld) 2.3 % Normal 0-[address] [facility] Comment on above: Performed By: #### L 500.2500, L100.0100 ####[facility] [address] [place], [address] Erythrocyte distribution width (RBC) [Ratio] 13.1 % Normal 11.6-14.[address] [facility] Comment on above: Performed By: #### L 500.2500, L100.0100 ####[facility] [address] [place], [address] Hematocrit (Bld) [Volume fraction] 29.6 % Low 37-[address] [facility] Comment on above: Performed By: #### L 500.2500, L100.0100 ####[facility] [address] [place], [address] Hemoglobin (Bld) [Mass/Vol] 10.2 g/dL Low 12.0-15.[address] [facility] Comment on above: Performed By: #### L 500.2500, L100.0100 ####[facility] [address] [place], [address] IG% 0.700 Normal 0.0-0.[address] [facility] Comment on above: Result Comment: IG% - Immature Granulocytes (promyelocytes, myelocytes andmetamyelocytes) > 1% indicates that a LEFT SHIFT is Present. Performed By: #### L 500.2500, L100.0100 ####[facility] [address] [place], [address] Lymphocytes/100 WBC (Bld) 34.9 % Normal 19-[address] [facility] Comment on above: Performed By: #### L 500.2500, L100.0100 ####[facility] [address] [place], [address] MCH (RBC) [Entitic mass] 29.4 pg Normal 27.0-32.[address] [facility] Comment on above: Performed By: #### L 500.2500, L100.0100 ####[facility] [address] [place], [address] MCHC (RBC) [Mass/Vol] 34.5 g/dL Normal 32-36 [facility] Comment on above: Performed By: #### L 500.2500, L100.0100 ####[facility] [address] [place], [address] MCV (RBC) [Entitic vol] 85.3 fL Normal 81-99 [facility] Comment on above: Performed By: #### L 500.2500, L100.0100 ####[facility] [address] [place], [address] Monocytes/100 WBC (Bld) 10.4 % High 0-10 [facility] Comment on above: Performed By: #### L 500.2500, L100.0100 ####[facility] [address] [place], [address] Neutrophils/100 WBC (Bld) 51.2 % Normal 47-[address] [facility] Comment on above: Performed By: #### L 500.2500, L100.0100 ####[facility] [address] [place], [address] Nucleated RBC (Bld) [#/Vol] 0 10*3/uL Normal 0-[address] [facility] Comment on above: Performed By: #### L 500.2500, L100.0100 ####[facility] [address] [place], [address] Platelet mean volume (Bld) [Entitic vol] 11.3 fL Normal 6.2-12.[address] [facility] Comment on above: Performed By: #### L 500.2500, L100.0100 ####[facility] [address] [place], [address] Platelets (Bld) [#/Vol] 162 10*3/uL Normal 150-[address] [facility] Comment on above: Performed By: #### L 500.2500, L100.0100 ####[facility] [address] [place], [address] RBC (Bld) [#/Vol] 3.47 10*6/uL Low 4.2-5.4 [facility] Comment on above: Performed By: #### L 500.2500, L100.0100 ####[facility] [address] [place], [address] RDW SD 40.1 fl Normal 35.1-43.[address] [facility] Comment on above: Performed By: #### L 500.2500, L100.0100 ####[facility] [address] [place], [address] WBC (Bld) [#/Vol] 4.4 10*3/uL Normal 4.4-11.0 [facility] Comment on above: Performed By: #### L 500.2500, L100.0100 ####[facility] [address] [place], [address] Basic Metabolic Profile (BMP )on 03-02-2024 BUN/CRE 10.4 RATIO Normal 10-[address] [facility] Comment on above: Performed By: #### L 500.2500 ####[facility] [address] [place], [address] CA,Total 9.9 mg/dL Normal 8.5-10.[address] [facility] Comment on above: Performed By: #### L 500.2500 ####[facility] [address] [place], [address] Chloride [Moles/Vol] 116 mmol/L High 98-107 [facility] Comment on above: Performed By: #### L 500.2500 ####[facility] [address] [place], [address] CO2 [Moles/Vol] 14.0 mmol/L Low 21.0-32.[address] [facility] Comment on above: Performed By: #### L 500.2500 ####[facility] [address] [place], [address] Creatinine [Mass/Vol] 0.96 mg/dL Normal 0.55-1.02 [facility] Comment on above: Result Comment: The validity of the calculated GFR GFRAA in patients over70 years has not been determined. Clinical correlation isessential. Performed By: #### L 500.2500 ####[facility] [address] [place], [address] ECRCL 50.91 ml/min Normal [facility] Comment on above: Performed By: #### L 500.2500 ####[facility] [address] [place], [address] EST GFR - AA 76 mL/min Normal >[address] [facility] Comment on above: Result Comment: Afri can [place] GFR Calc Performed By: #### L 500.2500 ####[facility] [address] [place], [address] GAP 11 Normal 5-[address] [facility] Comment on above: Performed By: #### L 500.2500 ####[facility] [address] [place], [address] GFR/1.73 sq M.predicted among non-blacks MDRD (S/P/Bld) [Vol rate/Area] 63 mL/min/{1.73_m2} Normal >[address] [facility] Comment on above: Result Comment: Non- GFR Calc Performed By: #### L 500.2500 ####[facility] [address] [place], [address] Glucose [Mass/Vol] 47 mg/dL Low 74-106 [facility] Comment on above: Result Comment: Gluc ose result less than 50 mg/dL suggests HYPOGLYCEMIA. Performed By: #### L 500.2500 ####[facility] [address] [place], [address] Potassium [Moles/Vol] 3.3 mmol/L Low 3.5-5.1 [facility] Comment on above: Performed By: #### L 500.2500 ####[facility] [address] [place], [address] Sodium [Moles/Vol] 141 mmol/L Normal 136-145 [facility] Comment on above: Performed By: #### L 500.2500 ####[facility] [address] [place], [address] Urea nitrogen [Mass/Vol] 10 mg/dL Normal 7-[address] [facility] Comment on above: Performed By: #### L 500.2500 ####[facility] [address] [place], [address] BUN/CRE 10.8 RATIO Normal 10-[address] [facility] Comment on above: Performed By: #### L 500.2500 ####[facility] [address] [place], [address] CA,Total 9.2 mg/dL Normal 8.5-10.[address] [facility] Comment on above: Performed By: #### L 500.2500 ####[facility] [address] [place], [address] Chloride [Moles/Vol] 113 mmol/L High 98-107 [facility] Comment on above: Performed By: #### L 500.2500 ####[facility] [address] [place], [address] CO2 [Moles/Vol] 10.0 mmol/L Low 21.0-32.[address] [facility] Comment on above: Performed By: #### L 500.2500 ####[facility] [address] [place], [address] Creatinine [Mass/Vol] 0.83 mg/dL Normal 0.55-1.02 [facility] Comment on above: Result Comment: The validity of the calculated GFR GFRAA in patients over70 years has not been determined. Clinical correlation isessential. Performed By: #### L 500.2500 ####[facility] [address] [place], [address] ECRCL 58.88 ml/min Normal [facility] Comment on above: Performed By: #### L 500.2500 ####[facility] [address] [place], [address] EST GFR - AA 89 mL/min Normal >[address] [facility] Comment on above: Result Comment: Afri can [place] GFR Calc Performed By: #### L 500.2500 ####[facility] [address] [place], [address] GAP 17 High 5-[address] [facility] Comment on above: Performed By: #### L 500.2500 ####[facility] [address] [place], [address] GFR/1.73 sq M.predicted among non-blacks MDRD (S/P/Bld) [Vol rate/Area] 74 mL/min/{1.73_m2} Normal >[address] [facility] Comment on above: Result Comment: Non- GFR Calc Performed By: #### L 500.2500 ####[facility] [address] [place], [address] Glucose [Mass/Vol] 140 mg/dL High 74-106 [facility] Comment on above: Result Comment: Fast ing Glucose result greater than or equal to 126 mg/dLsuggests DIABETES MELLITUS per A.D.A. criteria. Performed By: #### L 500.2500 ####[facility] [address] [place], [address] Potassium [Moles/Vol] 3.3 mmol/L Low 3.5-5.1 [facility] Comment on above: Performed By: #### L 500.2500 ####[facility] [address] [place], [address] Sodium [Moles/Vol] 140 mmol/L Normal 136-145 [facility] Comment on above: Performed By: #### L 500.2500 ####[facility] [address] [place], [address] Urea nitrogen [Mass/Vol] 9 mg/dL Normal 7-[address] [facility] Comment on above: Performed By: #### L 500.2500 ####[facility] [address] [place], [address] Bedside Glucoseon 03-02-2024 FINGERSTICK GLU 222 mg/dL High [address] [place] [address] Comment on above: Result Comment: MARIA D SERRANO OF PATIENT CARE PER NURSING PROTOCOL Performed By: #### L 501.080 ####[facility] [address] [place], [address] FINGERSTICK GLU 60 mg/dL Low 74-[address] [place] [address] Comment on above: Result Comment: MARIA D CASTROENT OF PATIENT CARE PER NURSING PROTOCOL Performed By: #### L 501.080 ####[facility] [address] [place], [address] FINGERSTICK GLU 32 mg/dL Invalid Interpretation Code 74-[address] [facility] Comment on above: Result Comment: Dr Lois cooney FollowedMANAGEMENT OF PATIENT CARE PER NURSING PROTOCOL Performed By: #### L 501.080 ####[facility] [address] [place], [address] FINGERSTICK GLU 295 mg/dL High 74-[address] [facility] Comment on above: Result Comment: MARIA D GEMENT OF PATIENT CARE PER NURSING PROTOCOL Performed By: #### L 501.080 ####[facility] [address] [place], [address] FINGERSTICK GLU 145 mg/dL High 74-[address] [facility] Comment on above: Result Comment: MARIA D GEMENT OF PATIENT CARE PER NURSING PROTOCOL Performed By: #### L 501.080 ####[facility] [address] [place], [address] FINGERSTICK GLU 240 mg/dL High 74-[address] [facility] Comment on above: Result Comment: MARIA D GEMENT OF PATIENT CARE PER NURSING PROTOCOL Performed By: #### L 501.080 ####[facility] [address] [place], [address] FINGERSTICK GLU 191 mg/dL High -[address] [facility] Comment on above: Result Comment: MARIA D GEMENT OF PATIENT CARE PER NURSING PROTOCOL Performed By: #### L 501.080 ####[facility] [address] [place], [address] 12 Lead EKGon 03-01-2024 12 Lead EKG Normal [facility] Acetone Serumon 03-01-2024 ACETONE SERUM SMALL Abnormal NEG [facility] Comment on above: Performed By: #### L 501.6900 ####[facility] [address] [place], [address] Basic Metabolic Profile (BMP )on 03-01-2024 BUN/CRE 10.1 RATIO Normal 10-[address] [facility] Comment on above: Performed By: #### L 500.2500 ####[facility] [address] [place], [address] CA,Total 9.2 mg/dL Normal 8.5-10.[address] [facility] Comment on above: Performed By: #### L 500.2500 ####[facility] [address] [place], [address] Chloride [Moles/Vol] 114 mmol/L High 98-107 [facility] Comment on above: Performed By: #### L 500.2500 ####[facility] [address] [place], [address] CO2 [Moles/Vol] 9.0 mmol/L Invalid Interpretation Code 21.0-32.[address] [facility] Comment on above: Result Comment: Crit ical Result(s) Called at: 21:37:02 03/01/2024 by:Sue Lal to Evelio. Results read back by same. Performed By: #### L 500.2500 ####[facility] [address] [place], [address] Creatinine [Mass/Vol] 0.89 mg/dL Normal 0.55-1.02 [facility] Comment on above: Result Comment: The validity of the calculated GFR GFRAA in patients over70 years has not been determined. Clinical correlation isessential. Performed By: #### L 500.2500 ####[facility] [address] [place], [address] ECRCL 54.91 ml/min Normal [facility] Comment on above: Performed By: #### L 500.2500 ####[facility] [address] [place], [address] EST GFR - AA 83 mL/min Normal >[address] [facility] Comment on above: Result Comment: Afri can [place] GFR Calc Performed By: #### L 500.2500 ####[facility] [address] [place], [address] GAP 15 Normal 5-[address] [facility] Comment on above: Performed By: #### L 500.2500 ####[facility] [address] [place], [address] GFR/1.73 sq M.predicted among non-blacks MDRD (S/P/Bld) [Vol rate/Area] 68 mL/min/{1.73_m2} Normal >[address] [facility] Comment on above: Result Comment: Non- GFR Calc Performed By: #### L 500.2500 ####[facility] [address] [place], [address] Glucose [Mass/Vol] 175 mg/dL High 74-106 [facility] Comment on above: Result Comment: Fast ing Glucose result greater than or equal to 126 mg/dLsuggests DIABETES MELLITUS per A.D.A. criteria. Performed By: #### L 500.2500 ####[facility] [address] [place], [address] Potassium [Moles/Vol] 3.3 mmol/L Low 3.5-5.1 [facility] Comment on above: Performed By: #### L 500.2500 ####[facility] [address] [place], [address] Sodium [Moles/Vol] 138 mmol/L Normal 136-145 [facility] Comment on above: Performed By: #### L 500.2500 ####[facility] [address] [place], [address] Urea nitrogen [Mass/Vol] 9 mg/dL Normal 7-[address] [facility] Comment on above: Performed By: #### L 500.2500 ####[facility] [address] [place], [address] BUN/CRE 10.0 RATIO Normal 10-[address] [facility] Comment on above: Performed By: #### L 500.2500 ####[facility] [address] [place], [address] CA,Total 9.0 mg/dL Normal 8.5-10.[address] [facility] Comment on above: Performed By: #### L 500.2500 ####[facility] [address] [place], [address] Chloride [Moles/Vol] 110 mmol/L High 98-107 [facility] Comment on above: Performed By: #### L 500.2500 ####[facility] [address] [place], [address] CO2 [Moles/Vol] 10.0 mmol/L Low 21.0-32.[address] [facility] Comment on above: Performed By: #### L 500.2500 ####[facility] [address] [place], [address] Creatinine [Mass/Vol] 0.90 mg/dL Normal 0.55-1.02 [facility] Comment on above: Result Comment: The validity of the calculated GFR GFRAA in patients over70 years has not been determined. Clinical correlation isessential. Performed By: #### L 500.2500 ####[facility] [address] [place], [address] ECRCL 54.30 ml/min Normal [facility] Comment on above: Performed By: #### L 500.2500 ####[facility] [address] [place], [address] EST GFR - AA 81 mL/min Normal >[address] [facility] Comment on above: Result Comment: Afri can [place] GFR Calc Performed By: #### L 500.2500 ####[facility] [address] [place], [address] GAP 17 High 5-[address] [facility] Comment on above: Performed By: #### L 500.2500 ####[facility] [address] [place], [address] GFR/1.73 sq M.predicted among non-blacks MDRD (S/P/Bld) [Vol rate/Area] 67 mL/min/{1.73_m2} Normal >[address] [facility] Comment on above: Result Comment: Non- GFR Calc Performed By: #### L 500.2500 ####[facility] [address] [place], [address] Glucose [Mass/Vol] 231 mg/dL High 74-106 [facility] Comment on above: Result Comment: Gluc ose result greater than or equal to 200 mg/dLsuggests DIABETES MELLITUS per A.D.A. criteria. Performed By: #### L 500.2500 ####[facility] [address] [place], [address] Potassium [Moles/Vol] 3.6 mmol/L Normal 3.5-5.1 [facility] Comment on above: Performed By: #### L 500.2500 ####[facility] [address] [place], [address] Sodium [Moles/Vol] 137 mmol/L Normal 136-145 [facility] Comment on above: Performed By: #### L 500.2500 ####[facility] [address] [place], [address] Urea nitrogen [Mass/Vol] 9 mg/dL Normal 7-[address] [facility] Comment on above: Performed By: #### L 500.2500 ####[facility] [address] [place], [address] BUN/CRE 10.0 RATIO Normal 10-[address] [facility] Comment on above: Performed By: #### L 500.2500 ####[facility] [address] [place], [address] CA,Total 8.6 mg/dL Normal 8.5-10.[address] [facility] Comment on above: Performed By: #### L 500.2500 ####[facility] [address] [place], [address] Chloride [Moles/Vol] 112 mmol/L High 98-107 [facility] Comment on above: Performed By: #### L 500.2500 ####[facility] [address] [place], [address] CO2 [Moles/Vol] 11.0 mmol/L Low 21.0-32.[address] [facility] Comment on above: Performed By: #### L 500.2500 ####[facility] [address] [place], [address] Creatinine [Mass/Vol] 0.90 mg/dL Normal 0.55-1.02 [facility] Comment on above: Result Comment: The validity of the calculated GFR GFRAA in patients over70 years has not been determined. Clinical correlation isessential. Performed By: #### L 500.2500 ####[facility] [address] [place], [address] ECRCL 54.30 ml/min Normal [facility] Comment on above: Performed By: #### L 500.2500 ####[facility] [address] [place], [address] EST GFR - AA 82 mL/min Normal >[address] [facility] Comment on above: Result Comment: Afri can [place] GFR Calc Performed By: #### L 500.2500 ####[facility] [address] [place], [address] GAP 14 Normal 5-[address] [facility] Comment on above: Performed By: #### L 500.2500 ####[facility] [address] [place], [address] GFR/1.73 sq M.predicted among non-blacks MDRD (S/P/Bld) [Vol rate/Area] 67 mL/min/{1.73_m2} Normal >[address] [facility] Comment on above: Result Comment: Non- GFR Calc Performed By: #### L 500.2500 ####[facility] [address] [place], [address] Glucose [Mass/Vol] 191 mg/dL High 74-106 [facility] Comment on above: Result Comment: Fast ing Glucose result greater than or equal to 126 mg/dLsuggests DIABETES MELLITUS per A.D.A. criteria. Performed By: #### L 500.2500 ####[facility] [address] [place], [address] Potassium [Moles/Vol] 3.5 mmol/L Normal 3.5-5.1 [facility] Comment on above: Performed By: #### L 500.2500 ####[facility] [address] [place], [address] Sodium [Moles/Vol] 137 mmol/L Normal 136-145 [facility] Comment on above: Performed By: #### L 500.2500 ####[facility] [address] [place], [address] Urea nitrogen [Mass/Vol] 9 mg/dL Normal 7-[address] [facility] Comment on above: Performed By: #### L 500.2500 ####[facility] [address] [place], [address] BUN/CRE 11.3 RATIO Normal 10-[address] [facility] Comment on above: Performed By: #### L 500.2500 ####[facility] [address] [place], [address] CA,Total 8.2 mg/dL Low 8.5-10.[address] [facility] Comment on above: Performed By: #### L 500.2500 ####[facility] [address] [place], [address] Chloride [Moles/Vol] 110 mmol/L High 98-107 [facility] Comment on above: Performed By: #### L 500.2500 ####[facility] [address] [place], [address] CO2 [Moles/Vol] 10.0 mmol/L Low 21.0-32.[address] [facility] Comment on above: Performed By: #### L 500.2500 ####[facility] [address] [place], [address] Creatinine [Mass/Vol] 0.98 mg/dL Normal 0.55-1.02 [facility] Comment on above: Result Comment: The validity of the calculated GFR GFRAA in patients over70 years has not been determined. Clinical correlation isessential. Performed By: #### L 500.2500 ####[facility] [address] [place], [address] ECRCL 49.87 ml/min Normal [facility] Comment on above: Performed By: #### L 500.2500 ####[facility] [address] [place], [address] EST GFR - AA 74 mL/min Normal >[address] [facility] Comment on above: Result Comment: Afri can [place]ankan GFR Calc Performed By: #### L 500.2500 ####[facility] [address] [place], [address] GAP 18 High 5-[address] [facility] Comment on above: Performed By: #### L 500.2500 ####[facility] [address] [place], [address] GFR/1.73 sq M.predicted among non-blacks MDRD (S/P/Bld) [Vol rate/Area] 62 mL/min/{1.73_m2} Normal >[address] [facility] Comment on above: Result Comment: Non- GFR Calc Performed By: #### L 500.2500 ####[facility] [address] [place], [address] Glucose [Mass/Vol] 328 mg/dL High 74-106 [facility] Comment on above: Result Comment: Gluc ose result greater than or equal to 200 mg/dLsuggests DIABETES MELLITUS per A.D.A. criteria. Performed By: #### L 500.2500 ####[facility] [address] [place], [address] Potassium [Moles/Vol] 3.7 mmol/L Normal 3.5-5.1 [facility] Comment on above: Performed By: #### L 500.2500 ####[facility] [address] [place], [address] Sodium [Moles/Vol] 138 mmol/L Normal 136-145 [facility] Comment on above: Performed By: #### L 500.2500 ####[facility] [address] [place], [address] Urea nitrogen [Mass/Vol] 11 mg/dL Normal 7-[address] [facility] Comment on above: Performed By: #### L 500.2500 ####[facility] [address] [place], [address] Bedside Glucoseon 03-01-2024 FINGERSTICK GLU 109 mg/dL High -[address] [facility] Comment on above: Result Comment: MARIA D GEMENT OF PATIENT CARE PER NURSING PROTOCOL Performed By: #### L 501.080 ####[facility] [address] [place], [address] FINGERSTICK GLU 247 mg/dL High -[address] [facility] Comment on above: Result Comment: MARIA D GEMENT OF PATIENT CARE PER NURSING PROTOCOL Performed By: #### L 501.080 ####[facility] [address] [place], [address] FINGERSTICK GLU 256 mg/dL High 74-[address] [facility] Comment on above: Result Comment: MARIA D GEMENT OF PATIENT CARE PER NURSING PROTOCOL Performed By: #### L 501.080 ####[facility] [address] [place], [address] FINGERSTICK GLU 148 mg/dL High [facility] [facility] Comment on above: Result Comment: MARIA D GEMENT OF PATIENT CARE PER NURSING PROTOCOL Performed By: #### L 501.080 ####[facility] [address] [place], [address] FINGERSTICK GLU 210 mg/dL High [facility] Comment on above: Result Comment: MARIA D GEMENT OF PATIENT CARE PER NURSING PROTOCOL Performed By: #### L 501.080 ####[facility] [address] [place], [address] FINGERSTICK GLU 241 mg/dL High [address] [place] [address] Comment on above: Result Comment: MARIA D GEMENT OF PATIENT CARE PER NURSING PROTOCOL Performed By: #### L 501.080 ####[facility] [address] [place], [address] FINGERSTICK GLU 243 mg/dL High [facility] Comment on above: Result Comment: MARIA D GEMENT OF PATIENT CARE PER NURSING PROTOCOL Performed By: #### L 501.080 ####[facility] [address] [place], [address] FINGERSTICK GLU 343 mg/dL High [address] [place] [address] Comment on above: Result Comment: MARIA D GEMENT OF PATIENT CARE PER NURSING PROTOCOL Performed By: #### L 501.080 ####[facility] [address] [place], [address] CBC W/Diff, Automatedon - PLT EST ADEQUATE Normal ADEQ [facility] Comment on above: Performed By: #### L 100.0100, L500.4050, L503.6005 ####[facility] [address] [place], [address] Comprehensive Metabolic Prof ilon 03-01-2024 Albumin [Mass/Vol] 4.1 g/dL Normal 3.2-5.0 [facility] Comment on above: Performed By: #### L 100.0100, L500.4050, L503.6005 ####[facility] [address] [place], [address] Albumin/Globulin [Mass ratio] 1.0 {ratio} Normal 0.9-2.[address] [facility] Comment on above: Performed By: #### L 100.0100, L500.4050, L503.6005 ####[facility] [address] [place], [address] ALK P 115 U/L Normal 45-[address] [facility] Comment on above: Performed By: #### L 100.0100, L500.4050, L503.6005 ####[facility] [address] [place], [address] ALT [Catalytic activity/Vol] 16 U/L Normal 13-[address] [facility] Comment on above: Performed By: #### L 100.0100, L500.4050, L503.6005 ####[facility] [address] [place], [address] AST [Catalytic activity/Vol] 11 U/L Low 15-[address] [facility] Comment on above: Performed By: #### L 100.0100, L500.4050, L503.6005 ####[facility] [address] [place], [address] Bilirubin [Mass/Vol] 0.50 mg/dL Normal 0.20-1.00 [facility] Comment on above: Result Comment: For patients on eltrombopag therapy, use of Dimension Dunbar TBIL is not recommended. Performed By: #### L 100.0100, L500.4050, L503.6005 ####[facility] [address] [place], [address] BUN/CRE 9.6 RATIO Low 10-[address] [facility] Comment on above: Performed By: #### L 100.0100, L500.4050, L503.6005 ####[facility] [address] [place], [address] CA,Total 9.3 mg/dL Normal 8.5-10.[address] [facility] Comment on above: Performed By: #### L 100.0100, L500.4050, L503.6005 ####[facility] [address] [place], [address] Chloride [Moles/Vol] 104 mmol/L Normal 98-107 [facility] Comment on above: Performed By: #### L 100.0100, L500.4050, L503.6005 ####[facility] [address] [place], [address] CO2 [Moles/Vol] 11.0 mmol/L Low 21.0-32.[address] [facility] Comment on above: Performed By: #### L 100.0100, L500.4050, L503.6005 ####[facility] [address] [place], [address] Creatinine [Mass/Vol] 1.14 mg/dL High 0.55-1.02 [facility] Comment on above: Result Comment: The validity of the calculated GFR GFRAA in patients over70 years has not been determined. Clinical correlation isessential. Performed By: #### L 100.0100, L500.4050, L503.6005 ####[facility] [address] [place], [address] ECRCL 42.87 ml/min Normal [facility] Comment on above: Performed By: #### L 100.0100, L500.4050, L503.6005 ####[facility] [address] [place], [address] EST GFR - AA 62 mL/min Normal >[address] [facility] Comment on above: Result Comment: Afri can [place] GFR Calc Performed By: #### L 100.0100, L500.4050, L503.6005 ####[facility] [address] [place], [address] GAP 20 High 5-[address] [facility] Comment on above: Performed By: #### L 100.0100, L500.4050, L503.6005 ####[facility] [address] [place], [address] GFR/1.73 sq M.predicted among non-blacks MDRD (S/P/Bld) [Vol rate/Area] 51 mL/min/{1.73_m2} Low >[address] [facility] Comment on above: Result Comment: Non- GFR Calc Performed By: #### L 100.0100, L500.4050, L503.6005 ####[facility] [address] [place], [address] Globulin (S) [Mass/Vol] 4.1 g/dL Normal 2.2-4.2 [facility] Comment on above: Performed By: #### L 100.0100, L500.4050, L503.6005 ####[facility] [address] [place], [address] Glucose [Mass/Vol] 419 mg/dL High 74-106 [facility] Comment on above: Result Comment: Gluc ose result greater than or equal to 200 mg/dLsuggests DIABETES MELLITUS per A.D.A. criteria. Performed By: #### L 100.0100, L500.4050, L503.6005 ####[facility] [address] [place], [address] Potassium [Moles/Vol] 4.0 mmol/L Normal 3.5-5.1 [facility] Comment on above: Performed By: #### L 100.0100, L500.4050, L503.6005 ####[facility] [address] [place], [address] Sodium [Moles/Vol] 135 mmol/L Low 136-145 [facility] Comment on above: Performed By: #### L 100.0100, L500.4050, L503.6005 ####[facility] [address] [place], [address] T PROT 8.2 g/dL Normal 6.4-8.[address] [facility] Comment on above: Performed By: #### L 100.0100, L500.4050, L503.6005 ####[facility] [address] [place], [address] Urea nitrogen [Mass/Vol] 11 mg/dL Normal 7-[address] [facility] Comment on above: Performed By: #### L 100.0100, L500.4050, L503.6005 ####[facility] [address] [place], [address] Emergency Department Summary on 03-01-2024 Emergency Department Summary Normal [facility] H AND P Exam - Hospitaliston 03-01-2024 H&P Exam - Hospitalist Normal [facility] L501.4020on 03-01-2024 TROPONIN-I HS 6 pg/mL Normal 3.0-54.[address] [facility] Comment on above: Order Comment: 'TROP ' Serial specimen #1, #2 or #3: 1 Result Comment: Plea se Note: New Test Units and Gender Specific Reference Ranges. For more information see Policy Stat Procedure Dun[place] High Sensitivity Troponin (TNIH) and attachments. Performed By: #### L 501.4020 ####[facility] [address] [place], [address] Lactic Acidon 03-01-2024 Lactate [Moles/Vol] 0.7 mmol/L Normal 0.4-1.9 [facility] Comment on above: Order Comment: Y Performed By: #### L 100.0100, L500.4050, L503.6005 ####[facility] [address] [place], [address] Urinalysis, Completeon 03-01 BACTERIA 0 SEEN Normal None Seen [facility] Comment on above: Order Comment: CRITI JUDD VALUE VERIFIED. CALLED TO [address] 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 [address] [place], [address] EPI,SQUAMOUS 0 SEEN Normal 5-[address] [facility] Comment on above: Order Comment: CRITI JUDD VALUE VERIFIED. CALLED TO [address] 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 [address] [place], [address] Mucus Ql (Urine sed) 0 SEEN Normal [facility] Comment on above: Order Comment: CRITI JUDD VALUE VERIFIED. CALLED TO [address] 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 [address] [place], [address] RBC 0 SEEN Normal 0-[address] [facility] Comment on above: Order Comment: CRITI JUDD VALUE VERIFIED. CALLED TO [address] 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 [address] [place], [address] WBC 0 SEEN Normal 0-[address] [facility] Comment on above: Order Comment: CRITI JUDD VALUE VERIFIED. CALLED TO [place] [phone] Halima Rodriguez.RESULTS READ BACK BY SAME.TIER TRUCK DRIVER TO SPECIFY Performed By: #### L 400.0001 ####[facility] [address] [place], [address] Absolute lymphocyte countOrd ered By: Reece Smith on 07-29-2023 Lymphocytes Auto (Unsp spec) [#/Vol] 1.19 10*3/uL 0.83-4.[address] [facility] Automated lymphocyte count a s percentage of total leukocytesOrdered By: Reece Smith on 07-29-2023 Lymphocytes/100 WBC Auto (Unsp spec) 19.3 % 19-[address] [facility] Basophil percentageOrdered B y: Reece Smith on 07-29-2023 Basophil percentage 0-5 SEEN /hpf 0-5 [facility] Basophils/100 WBC (Bld) 0.5 % 0-1 [facility] Chloride [Moles/Vol] 108 mmol/L 98-107 [facility] Eosinophils/100 WBC (Bld) 1.1 % 0-[address] [facility] Glucose [Mass/Vol] 127 mg/dL 74-106 [facility] Comment on above: Fasting Glucose resu lt greater than or equal to 126 mg/dL suggests DIABETES MELLITUS per A.D.A. criteria. Hemoglobin (Bld) [Mass/Vol] 11.4 g/dL 12.0-15.[address] [facility] Monocytes/100 WBC (Bld) 5.7 % 0-10 [facility] Neutrophils (Bld) [#/Vol] 4.5 10*3/uL 2.0-7.[address] [facility] Neutrophils/100 WBC (Bld) 72.9 % 47-[address] [facility] Potassium [Moles/Vol] 4.0 mmol/L 3.5-5.1 [facility] Sodium [Moles/Vol] 141 mmol/L 136-145 [facility] WBC (Bld) [#/Vol] 6.2 10*3/uL 4.4-11.0 [facility] Bilirubin Test strip Ql (U)O rdered By: Reece Smith on 07-29-2023 Bilirubin Ql (U) Negative Negative [facility] Determination of erythrocyte mean corpuscular volume (MCV)Ordered By: Reece Smith on 07-29-2023 MCV (RBC) [Entitic vol] 94.8 fL 81-99 [facility] Erythrocyte distribution wid th ratioOrdered By: Reece Smith on 07-29-2023 Erythrocyte distribution width (RBC) [Ratio] 14.5 % 11.6-14.[address] [facility] Erythrocyte distribution wid th standard deviationOrdered By: Reece Smith on 07-29-2023 Erythrocyte distribution width (RBC) [Entitic vol] 50.0 fL 35.1-43.[address] [facility] Hematocrit Auto (Bld) [Volum e fraction]Ordered By: Reece Smith on 07-29-2023 Hematocrit (Bld) [Volume fraction] 36.1 % 37-[address] [facility] Immature granulocytes/100 WB C Auto (Bld)Ordered By: Reece Smith on 07-29-2023 Immature granulocytes/100 WBC (Bld) 0.500 % 0.0-0.[address] [facility] Comment on above: IG% - Immature Granu locytes (promyelocytes, myelocytes and metamyelocytes) > 1% indicates that a LEFT SHIFT is Present. Ketones Test strip Ql (U)Ord ered By: Reece Smith on 07-29-2023 Ketones Ql (U) 50 mg/dl Negative [facility] Laboratory - Chemistry and C hemistry - challengeOrdered By: Reece Smith on 07-29-2023 CO2 [Moles/Vol] 27.0 mmol/L 21.0-32.[address] [facility] Urea nitrogen/Creatinine [Mass ratio] 28.0 mg/mg 10-[address] [facility] Laboratory - Hematology and Cell countsOrdered By: Reece Smith on 07-29-2023 MCH (RBC) [Entitic mass] 29.9 pg 27.0-32.[address] [facility] MCHC (RBC) [Mass/Vol] 31.6 g/dL 32-36 [facility] Nucleated RBC/100 WBC (Bld) [Ratio] 0 % 0-[address] [facility] Platelets (Bld) [#/Vol] 295 10*3/uL 150-[address] [facility] Mucus LM Ql (Urine sed)Order ed By: Reece Smith on 07-29-2023 Mucus Ql (Urine sed) 0 SEEN /hpf [facility] Nitrite Test strip Ql (U)Ord ered By: Reece Smith on 07-29-2023 Nitrite Ql (U) Negative Negative [facility] No Panel InformationOrdered By: Reece Smith on 07-29-2023 Urine RBC 0 SEEN /hpf 0-[address] [facility] Estimated Creatinine Clearance Calc 76.36 ml/min [facility] Estimated GFR (MDRD) Amer 121 mL/min >[address] [facility] Comment on above: GFR Calc Estimated GFR (MDRD) Non-Af Amer 100 mL/min >[address] [facility] Comment on above: Non- GFR Calc Troponin I High Sensitivity 10 pg/mL 3.0-54.[address] [facility] Comment on above: Please Note: New Jessica t Units and Gender Specific Reference Ranges. For more information see Policy Stat Procedure [place] High Sensitivity Troponin (TNIH) and attachments. Platelet mean volume Amado-Ec ker (Bld) [Entitic vol]Ordered By: Reece Smith on 07-29-2023 Platelet mean volume (Bld) [Entitic vol] 12.1 fL 6.2-12.[address] [facility] Protein Test strip Ql (U)Ord ered By: Reece Smith on 07-29-2023 Protein Ql (U) Negative Negative [facility] RBC Auto (Bld) [#/Vol]Ordere d By: Reece Smith on 07-29-2023 RBC (Bld) [#/Vol] 3.81 10*6/uL 4.2-5.4 [facility] Serum or plasma calcium jn urement (mass/volume)Ordered By: Reece Smith on 07-29-2023 Calcium [Mass/Vol] 9.8 mg/dL 8.5-10.1 [facility] Serum or plasma creatinine m easurement (mass/volume)Ordered By: Reece Smith on 07-29-2023 Creatinine [Mass/Vol] 0.64 mg/dL 0.55-1.02 [facility] Comment on above: The validity of the calculated GFR & GFRAA in patients over 70 years has not been determined. Clinical correlation is essential. Serum or plasma urea nitroge n measurement (mass/volume)Ordered By: Reece Smith on 07-29-2023 Urea nitrogen [Mass/Vol] 18 mg/dL 7-[address] [facility] Squamous epithelial cells de tection in urine sediment by light microscopyOrdered By: Reece Smith on 07-29-2023 Epithelial cells.squamous LM Ql (Urine sed) 0 SEEN /hpf 5-[address] [facility] Thin prep Papanicolaou smear with manual screeningOrdered By: Reece Smith on 07-29-2023 Thin prep Papanicolaou smear with manual screening 212 mg/dL 74-[address] [facility] Comment on above: MANAGEMENT OF PATIEN T CARE PER NURSING PROTOCOL Thin prep Papanicolaou smear with manual screening 6 5-[address] [facility] Urine blood detectionOrdered By: Reece Smith on 07-29-2023 RBC Ql (U) Negative Negative [facility] Urine clarityOrdered By: Neil Smith on 07-29-2023 Clarity (U) Clear Clear [facility] Urine color determinationOrd ered By: Reece Smith on 07-29-2023 Color (U) Yellow Yellow [facility] Urine glucose detectionOrder ed By: Reece Smith on 07-29-2023 Glucose Ql (U) Normal mg/dl Normal [facility] Urine leukocyte esterase det ection by dipstickOrdered By: Reece Smith on 07-29-2023 Leukocyte esterase Test strip Ql (U) 25 /ul Negative [facility] Urine pHOrdered By: Reece Smith on 07-29-2023 pH (U) 6.0 [pH] 5.0 - 8.[address] [facility] Urine sediment bacteria coun t by microscopy (number/high power field)Ordered By: Reece Smith on 07-29-2023 Bacteria LM.HPF (Urine sed) [#/Area] 0 /[HPF] None Seen [facility] Urine specific gravity measu rementOrdered By: Reece Smith on 07-29-2023 Specific gravity (U) [Rel density] 1.020 1.002-1.[address] [facility] Urine urobilinogen measureme ntOrdered By: Reece Smith on 07-29-2023 Urobilinogen Ql (U) Normal mg/dl Normal [facility] Absolute lymphocyte countOrd ered By: Sanjanafifi Quigley on 07-06-2023 Lymphocytes Auto (Unsp spec) [#/Vol] 2.04 10*3/uL 0.83-4.[address] [facility] Basophil percentageOrdered B y: Sanjana Soraida on 07-06-2023 Basophils/100 WBC (Bld) 1.0 % 0-1 [facility] Chloride [Moles/Vol] 110 mmol/L 98-107 [facility] Eosinophils/100 WBC (Bld) 1.6 % 0-[address] [facility] Glucose [Mass/Vol] 132 mg/dL 74-106 [facility] Comment on above: Fasting Glucose resu lt greater than or equal to 126 mg/dL suggests DIABETES MELLITUS per A.D.A. criteria. Neutrophils (Bld) [#/Vol] 1.3 10*3/uL 2.0-7.[address] [facility] Neutrophils/100 WBC (Bld) 34.0 % 47-[address] [facility] Potassium [Moles/Vol] 2.7 mmol/L 3.5-5.1 [facility] Comment on above: Critical Result(s) C alled at: 06:51:47 07/06/2023 by: June ford [facility] Results read back by same. Sodium [Moles/Vol] 141 mmol/L 136-145 [facility] WBC (Bld) [#/Vol] 3.9 10*3/uL 4.4-11.0 [facility] Blood erythrocytes count (nu mber/volume)Ordered By: Sanjana Quigley on 07-06-2023 RBC (Bld) [#/Vol] 3.33 10*6/uL 4.2-5.4 [facility] Blood hemoglobin measurement (mass/volume)Ordered By: Sanjana Quigley on 07-06-2023 Hemoglobin (Bld) [Mass/Vol] 9.9 g/dL 12.0-15.[address] [facility] Blood lymphocytes/100 leukoc ytesOrdered By: Sanjana Quigley on 07-06-2023 Lymphocytes/100 WBC (Bld) 53.0 % 19-[address] [facility] Blood monocytes/100 leukocyt esOrdered By: Sanjana Quigley on 07-06-2023 Monocytes/100 WBC (Bld) 9.9 % 0-10 [facility] Blood platelet mean volumeOr dered By: Sanjana Quigley on 07-06-2023 Platelet mean volume (Bld) [Entitic vol] 11.9 fL 6.2-12.[address] [facility] Determination of erythrocyte mean corpuscular volume (MCV)Ordered By: Sanjana Quigley on 07-06-2023 MCV (RBC) [Entitic vol] 86.2 fL 81-99 [facility] Glucose Glucometer (BldC) [M ass/Vol]Ordered By: Sanjana Qiugley on 07-06-2023 Glucose [Mass/Vol] 223 mg/dL 74-106 [facility] Comment on above: MANAGEMENT OF PATIEN T CARE PER NURSING PROTOCOL Hematocrit Auto (Bld) [Volum e fraction]Ordered By: Sanjana Quigley on 07-06-2023 Hematocrit (Bld) [Volume fraction] 28.7 % 37-[address] [facility] Laboratory - Chemistry and C hemistry - challengeOrdered By: Sanjana Quigley on 07-06-2023 CO2 [Moles/Vol] 27.0 mmol/L 21.0-32.[address] [facility] Urea nitrogen/Creatinine [Mass ratio] 24.0 mg/mg 10-[address] [facility] Laboratory - Hematology and Cell countsOrdered By: Sanjana Quigley on 07-06-2023 Erythrocyte distribution width (RBC) [Entitic vol] 41.4 fL 35.1-43.[address] [facility] Erythrocyte distribution width (RBC) [Ratio] 13.2 % 11.6-14.[address] [facility] Immature granulocytes/100 WBC (Bld) 0.500 % 0.0-0.[address] [facility] Comment on above: IG% - Immature Granu locytes (promyelocytes, myelocytes and metamyelocytes) > 1% indicates that a LEFT SHIFT is Present. MCH (RBC) [Entitic mass] 29.7 pg 27.0-32.[address] [facility] Nucleated RBC/100 WBC (Bld) [Ratio] 0 % 0-[address] [facility] MCHC Auto (RBC) [Mass/Vol]Or dered By: Sanjana Quigley on 12-31-2023 MCHC (RBC) [Mass/Vol] 34.5 g/dL 32-36 [facility] No Panel InformationOrdered By: Sanjana Quigley on 07-06-2023 Estimated Creatinine Clearance Calc 97.74 ml/min [facility] Estimated GFR (MDRD) Amer 161 mL/min >[address] [facility] Comment on above: GFR Calc Estimated GFR (MDRD) Non-Af Amer 133 mL/min >[address] [facility] Comment on above: Non- GFR Calc Platelets bldOrdered By: Freya Quigley on 07-06-2023 Platelets (Bld) [#/Vol] 185 10*3/uL 150-[address] [facility] Serum or plasma calcium jn urement (mass/volume)Ordered By: Sanjana Quigley on 07-06-2023 Calcium [Mass/Vol] 8.5 mg/dL 8.5-10.1 [facility] Serum or plasma creatinine m easurement (mass/volume)Ordered By: Sanjana Quigley on 07-06-2023 Creatinine [Mass/Vol] 0.50 mg/dL 0.55-1.02 [facility] Comment on above: The validity of the calculated GFR & GFRAA in patients over 70 years has not been determined. Clinical correlation is essential. Serum or plasma urea nitroge n measurement (mass/volume)Ordered By: Sanjana Quigley on 07-06-2023 Urea nitrogen [Mass/Vol] 12 mg/dL 7-[address] [facility] Thin prep Papanicolaou smear with manual screeningOrdered By: Sanjana Quigley on 07-06-2023 Thin prep Papanicolaou smear with manual screening 4 5-[address] [facility] Basophil percentageOrdered B y: Sanjana Quigley on 07-04-2023 Lactate [Moles/Vol] 0.7 mmol/L 0.4-2.0 [facility] Absolute lymphocyte countOrd ered By: Steven Voss on 07-02-2023 Lymphocytes Auto (Unsp spec) [#/Vol] 1.43 10*3/uL 0.83-4.[address] [facility] Basophil percentageOrdered B y: Steven Voss on 07-02-2023 Basophil percentage 25-50 SEEN /hpf 0-[address] [facility] Basophils/100 WBC (Bld) 0.6 % 0-1 [facility] Chloride [Moles/Vol] 103 mmol/L 98-107 [facility] Eosinophils/100 WBC (Bld) 0.1 % 0-[address] [facility] Glucose [Mass/Vol] 352 mg/dL 74-106 [facility] Comment on above: Glucose result great er than or equal to 200 mg/dLsuggests DIABETES MELLITUS per A.D.A. criteria. Neutrophils (Bld) [#/Vol] 5.3 10*3/uL 2.0-7.[address] [facility] Neutrophils/100 WBC (Bld) 74.0 % 47-[address] [facility] Potassium [Moles/Vol] 3.8 mmol/L 3.5-5.1 [facility] Sodium [Moles/Vol] 135 mmol/L 136-145 [facility] WBC (Bld) [#/Vol] 7.1 10*3/uL 4.4-11.0 [facility] Bilirubin Test strip Ql (U)O rdered By: Steven Voss on 07-02-2023 Bilirubin Ql (U) Negative Negative [facility] Blood erythrocytes count (nu mber/volume)Ordered By: Steven Voss on 07-02-2023 RBC (Bld) [#/Vol] 4.71 10*6/uL 4.2-5.4 [facility] Blood hemoglobin measurement (mass/volume)Ordered By: Steven Voss on 07-02-2023 Hemoglobin (Bld) [Mass/Vol] 14.0 g/dL 12.0-15.[address] [facility] Blood lymphocytes/100 leukoc ytesOrdered By: Steven Voss on 07-02-2023 Lymphocytes/100 WBC (Bld) 20.1 % 19-[address] [facility] Blood monocytes/100 leukocyt esOrdered By: Steven Torreso on 07-02-2023 Monocytes/100 WBC (Bld) 4.6 % 0-10 [facility] Blood platelet mean volumeOr dered By: Steven Torreso on 07-02-2023 Platelet mean volume (Bld) [Entitic vol] 11.8 fL 6.2-12.[address] [facility] Culture, urineOrdered By: Sherita Voss on 07-02-2023 Bacteria identified Cx Nom (U) Culture exhibits no growth. [facility] Determination of erythrocyte mean corpuscular volume (MCV)Ordered By: Steven Voss on 07-02-2023 MCV (RBC) [Entitic vol] 92.1 fL 81-99 [facility] Erythrocyte sedimentation ra teOrdered By: Steven Voss on 07-02-2023 ESR (Bld) [Velocity] 24 mm/h 0-30 [facility] Glucose Glucometer (BldC) [M ass/Vol]Ordered By: Steven Voss on 07-02-2023 Glucose [Mass/Vol] 308 mg/dL 74-106 [facility] Comment on above: MANAGEMENT OF PATIEN T CARE PER NURSING PROTOCOL Hematocrit Auto (Bld) [Volum e fraction]Ordered By: Steven Voss on 07-02-2023 Hematocrit (Bld) [Volume fraction] 43.4 % 37-[address] [facility] Ketones Test strip Ql (U)Ord ered By: Steven Voss on 07-02-2023 Ketones Ql (U) 150 mg/dl Negative [facility] Comment on above: CRITICAL VALUE *HCRI TICAL VALUE VERIFIED. CALLED TO [id number] Nina Guajardo.RESULTS READ BACK BY SAME . Laboratory - Chemistry and C hemistry - challengeOrdered By: Steven Voss on 07-02-2023 CO2 [Moles/Vol] 10.0 mmol/L 21.0-32.[address] [facility] Urea nitrogen/Creatinine [Mass ratio] 14.4 mg/mg 10-[address] [facility] Laboratory - Drug toxicology Ordered By: Torsten Sutton on 07-02-2023 Amphetamines Ql (U) Negative <1000 ng/mL [facility] Benzodiazepines Ql (U) Positive < 200 ng/mL [facility] Cannabinoids Screen Ql (U) Negative < 50 ng/mL [facility] Cocaine Ql (U) Negative < 300 ng/mL [facility] Opiates Ql (U) Positive < 300 ng/mL [facility] Laboratory - Hematology and Cell countsOrdered By: Steven Voss on 07-02-2023 Erythrocyte distribution width (RBC) [Entitic vol] 43.7 fL 35.1-43.[address] [facility] Erythrocyte distribution width (RBC) [Ratio] 12.9 % 11.6-14.[address] [facility] Immature granulocytes/100 WBC (Bld) 0.600 % 0.0-0.[address] [facility] Comment on above: IG% - Immature Granu locytes (promyelocytes, myelocytes and metamyelocytes) > 1% indicates that a LEFT SHIFT is Present. MCH (RBC) [Entitic mass] 29.7 pg 27.0-32.[address] [facility] Nucleated RBC/100 WBC (Bld) [Ratio] 0 % 0-[address] [facility] MCHC Auto (RBC) [Mass/Vol]Or dered By: Steven Voss on 07-02-2023 MCHC (RBC) [Mass/Vol] 32.3 g/dL 32-36 [facility] Mucus LM Ql (Urine sed)Order ed By: Steven Voss on 07-02-2023 Mucus Ql (Urine sed) 0 SEEN /hpf [facility] Nitrite Test strip Ql (U)Ord ered By: Steven Voss on 07-02-2023 Nitrite Ql (U) Negative Negative [facility] No Panel InformationOrdered By: Torsten Sutton on 07-02-2023 Ethyl Alcohol Level < 3.0 mg/dL [facility] Comment on above: The serum:whole bloo d ethanol ratio is approximately 1.14and varies slightly with hematocrit. Medical Alcohol reference interval and critical value innon-tolerant individuals; 50 - 100 Impairment 100 Intoxication 100 - 250 Severe Poisoning 250 - 400 Deep/possible fatal coma MDMA (Ecstasy) Screen Negative < 500 ng/mL [facility] Urine Barbiturates Screen Negative < 200 ng/mL [facility] Urine Drug Screen Comment [facility] Comment on above: CONFIRMATORY TESTING FOR [...] Methadone Screen Negative < 300 ng/mL [facility] No Panel InformationOrdered By: Steven Voss on 07-02-2023 Estimated GFR (MDRD) Amer 64 mL/min >[address] [facility] Comment on above: GFR Calc Estimated GFR (MDRD) Non-Af Amer 53 mL/min >[address] [facility] Comment on above: Non- GFR Calc Platelets bldOrdered By: Steven Voss on 07-02-2023 Platelets (Bld) [#/Vol] 261 10*3/uL 150-[address] [facility] Protein Test strip Ql (U)Ord ered By: Steven Voss on 07-02-2023 Protein Ql (U) 30 mg/dl Negative [facility] Serum or plasma calcium jn urement (mass/volume)Ordered By: Steven Voss on 07-02-2023 Calcium [Mass/Vol] 10.2 mg/dL 8.5-10.1 [facility] Serum or plasma creatinine m easurement (mass/volume)Ordered By: Steven Voss on 07-02-2023 Creatinine [Mass/Vol] 1.11 mg/dL 0.55-1.02 [facility] Comment on above: The validity of the calculated GFR & GFRAA in patients over 70 years has not been determined. Clinical correlation is essential. Serum or plasma urea nitroge n measurement (mass/volume)Ordered By: Steven Voss on 07-02-2023 Urea nitrogen [Mass/Vol] 16 mg/dL 7-[address] [facility] Squamous epithelial cells de tection in urine sediment by light microscopyOrdered By: Steven Voss on 07-02-2023 Epithelial cells.squamous LM Ql (Urine sed) 0-5 SEEN /hpf 5-[address] [facility] Thin prep Papanicolaou smear with manual screeningOrdered By: Steven Voss on 07-02-2023 Thin prep Papanicolaou smear with manual screening 22 5-[address] [facility] Urine blood detectionOrdered By: Steven Voss on 07-02-2023 RBC Ql (U) 50 /ul Negative [facility] RBC Ql (U) 0 SEEN /hpf 0-[address] [facility] Urine clarityOrdered By: Steven Voss on 07-02-2023 Clarity (U) Clear Clear [facility] Urine color determinationOrd ered By: Steven Voss on 07-02-2023 Color (U) Yellow Yellow [facility] Urine glucose detectionOrder ed By: Steven Voss on 07-02-2023 Glucose Ql (U) 1000 mg/dl Normal [facility] Urine leukocyte esterase det ection by dipstickOrdered By: Steven Voss on 07-02-2023 Leukocyte esterase Test strip Ql (U) 100 /ul Negative [facility] Urine pHOrdered By: Steven ng on 07-02-2023 pH (U) 5.0 [pH] 5.0 - 8.[address] [facility] Urine phencyclidine (PCP) de tectionOrdered By: Torsten Sutton on 07-02-2023 Phencyclidine Ql (U) Negative < 25 ng/mL [facility] Urine sediment bacteria coun t by microscopy (number/high power field)Ordered By: Steven Voss on 07-02-2023 Bacteria LM.HPF (Urine sed) [#/Area] 0 /[HPF] None Seen [facility] Urine specific gravity measu rementOrdered By: Stevenlois Voss on 07-02-2023 Specific gravity (U) [Rel density] 1.020 1.002-1.[address] [facility] Urobilinogen Auto test strip Ql (U)Ordered By: Steven Voss on 07-02-2023 Urobilinogen Ql (U) Normal mg/dl Normal [facility] Whole blood hemoglobin A1c/t otal hemoglobin ratio (mass fraction)Ordered By: Torsten Sutton on 07-02-2023 HbA1c (Bld) [Mass fraction] 13.9 % 3.8-5.[address] [facility] Comment on above: Normal < 5.7 % Predi abetic 5.7 - 6.4 % Diabetic >or= 6.5 % Please note range changes. Glucose Glucometer (BldC) [M ass/Vol]Ordered By: Aleksandar Rebolledo on 07-01-2023 Glucose [Mass/Vol] 490 mg/dL 74-106 [facility] Comment on above: Dr Abel RichmondMA NAGEMENT OF PATIENT CARE PER NURSING PROTOCOL Basophil percentageOrdered B y: Milind Lamb on 05-21-2023 Chloride [Moles/Vol] 100 mmol/L 98-107 [facility] Cholesterol [Mass/Vol] 223 mg/dL <200 [facility] Comment on above: <200 mg/dL Desirable 200-240 mg/dL Borderline >240 mg/dL High Risk Glucose [Mass/Vol] 371 mg/dL 74-106 [facility] Comment on above: Glucose result great er than or equal to 200 mg/dLsuggests DIABETES MELLITUS per A.D.A. criteria. Potassium [Moles/Vol] 4.0 mmol/L 3.5-5.1 [facility] Comment on above: Slight Hemolysis, Re sult may be falsely increased. Sodium [Moles/Vol] 134 mmol/L 136-145 [facility] Triglyceride [Mass/Vol] 116 mg/dL <199 [facility] Comment on above: The drugs N-Acetylcy steine and Metamizole may falsely depress this assay.Serum Triglycerides Reference Interval Normal <150 mg/dL Borderline high 150 - 199 mg/dL High 200 - 499 mg/dL Very High > or = 500 mg/dL Laboratory - Chemistry and C hemistry - challengeOrdered By: Milind Lamb on 05-21-2023 CO2 [Moles/Vol] 25.0 mmol/L 21.0-32.[address] [facility] Urea nitrogen/Creatinine [Mass ratio] 22.5 mg/mg 10-[address] [facility] No Panel InformationOrdered By: Milind Lamb on 05-21-2023 Estimated GFR (MDRD) Amer 83 mL/min >[address] [facility] Comment on above: GFR Calc Estimated GFR (MDRD) Non-Af Amer 69 mL/min >[address] [facility] Comment on above: Non- GFR Calc Serum or plasma calcium jn urement (mass/volume)Ordered By: Milind Lamb on 05-21-2023 Calcium [Mass/Vol] 9.2 mg/dL 8.5-10.1 [facility] Serum or plasma cholesterol in HDL measurement (mass/volume)Ordered By: Milind Lamb on 05-21-2023 Cholesterol in HDL [Mass/Vol] 107 mg/dL >[address] [facility] Comment on above: The drugs N-Acetylcy steine and Metamizole may falsely depress this assay. Reference Range HDL <40 mg/dL Low HDL Cholesterol HDL >or= 60 mg/dL High HDL Cholesterol Serum or plasma cholesterol in VLDL measurement (mass/volume)Ordered By: Milind Lamb on 05-21-2023 Cholesterol in VLDL [Mass/Vol] 23 mg/dL 5-[address] [facility] Serum or plasma creatinine m easurement (mass/volume)Ordered By: Milind Lamb on 05-21-2023 Creatinine [Mass/Vol] 0.89 mg/dL 0.55-1.02 [facility] Comment on above: The validity of the calculated GFR & GFRAA in patients over 70 years has not been determined. Clinical correlation is essential. Serum or plasma low density lipoprotein (LDL) cholesterol measurement (mass/volume)Ordered By: Milind Lamb on 05-21-2023 Cholesterol in LDL [Mass/Vol] 93 mg/dL 0-[address] [facility] Serum or plasma urea nitroge n measurement (mass/volume)Ordered By: Milind Lamb on 05-21-2023 Urea nitrogen [Mass/Vol] 20 mg/dL 7-[address] [facility] Thin prep Papanicolaou smear with manual screeningOrdered By: Milind Lamb on 05-21-2023 Thin prep Papanicolaou smear with manual screening 9 5-[address] [facility] Basophil percentageOrdered B y: Dr. Ahumada on 07-28-2022 Chloride [Moles/Vol] 114 mmol/L 98-107 [facility] Glucose [Mass/Vol] 80 mg/dL 74-106 [facility] Potassium [Moles/Vol] 2.5 mmol/L 3.5-5.1 [facility] Comment on above: Critical Result(s) C alled at: 06:56:24 07/28/2022 by: Arvin Santos RN (MS3). Results read back by same. Sodium [Moles/Vol] 141 mmol/L 136-145 [facility] Glucose Glucometer (BldC) [M ass/Vol]Ordered By: Dr. Ahumada on 07-28-2022 Glucose [Mass/Vol] 248 mg/dL 74-106 [facility] Comment on above: MANAGEMENT OF PATIEN T CARE PER NURSING PROTOCOL Laboratory - Chemistry and C hemistry - challengeOrdered By: Dr. Ahumada on 07-28-2022 CO2 [Moles/Vol] 20.0 mmol/L 21.0-32.[address] [facility] Urea nitrogen/Creatinine [Mass ratio] 13.7 mg/mg 10-[address] [facility] No Panel InformationOrdered By: Dr. Ahumada on 07-28-2022 Estimated Creatinine Clearance Calc 79.08 ml/min [facility] Estimated GFR (MDRD) Amer 135 mL/min >[address] [facility] Comment on above: GFR Calc Estimated GFR (MDRD) Non-Af Amer 111 mL/min >[address] [facility] Comment on above: Non- GFR Calc Serum or plasma calcium jn urement (mass/volume)Ordered By: Dr. Ahumada on 07-28-2022 Calcium [Mass/Vol] 8.8 mg/dL 8.5-10.1 [facility] Serum or plasma creatinine m easurement (mass/volume)Ordered By: Dr. Ahumada on 07-28-2022 Creatinine [Mass/Vol] 0.59 mg/dL 0.55-1.02 [facility] Comment on above: The validity of the calculated GFR & GFRAA in patients over 70 years has not been determined. Clinical correlation is essential. Serum or plasma urea nitroge n measurement (mass/volume)Ordered By: Dr. Ahumada on 07-28-2022 Urea nitrogen [Mass/Vol] 8 mg/dL 7-[address] [facility] Thin prep Papanicolaou smear with manual screeningOrdered By: Dr. Ahumada on 07-28-2022 Thin prep Papanicolaou smear with manual screening 7 5-[address] [facility] Absolute lymphocyte countOrd ered By: Dr. Ahumada on 07-27-2022 Lymphocytes Auto (Unsp spec) [#/Vol] 1.63 10*3/uL 0.83-4.[address] [facility] Basophil percentageOrdered B y: Dr. Ahumada on 07-27-2022 Basophils/100 WBC (Bld) 0.4 % 0-1 [facility] Eosinophils/100 WBC (Bld) 0.9 % 0-[address] [facility] Neutrophils (Bld) [#/Vol] 3.2 10*3/uL 2.0-7.[address] [facility] Neutrophils/100 WBC (Bld) 58.4 % 47-[address] [facility] WBC (Bld) [#/Vol] 5.5 10*3/uL 4.4-11.0 [facility] Blood erythrocytes count (nu mber/volume)Ordered By: Dr. Ahumada on 07-27-2022 RBC (Bld) [#/Vol] 3.37 10*6/uL 4.2-5.4 [facility] Blood hemoglobin measurement (mass/volume)Ordered By: Dr. Ahumada on 07-27-2022 Hemoglobin (Bld) [Mass/Vol] 10.2 g/dL 12.0-15.[address] [facility] Blood lymphocytes/100 leukoc ytesOrdered By: Dr. Ahumada on 07-27-2022 Lymphocytes/100 WBC (Bld) 29.5 % 19-[address] [facility] Blood monocytes/100 leukocyt esOrdered By: Dr. Ahumada on 07-27-2022 Monocytes/100 WBC (Bld) 10.3 % 0-10 [facility] Blood platelet mean volumeOr dered By: Dr. Ahumada on 07-27-2022 Platelet mean volume (Bld) [Entitic vol] 11.1 fL 6.2-12.[address] [facility] Determination of erythrocyte mean corpuscular volume (MCV)Ordered By: Dr. Ahumada on 07-27-2022 MCV (RBC) [Entitic vol] 85.5 fL 81-99 [facility] Hematocrit Auto (Bld) [Volum e fraction]Ordered By: Dr. Ahumada on 07-27-2022 Hematocrit (Bld) [Volume fraction] 28.8 % 37-[address] [facility] Laboratory - Hematology and Cell countsOrdered By: Dr. Ahumada on 07-27-2022 Erythrocyte distribution width (RBC) [Entitic vol] 40.8 fL 35.1-43.[address] [facility] Erythrocyte distribution width (RBC) [Ratio] 13.2 % 11.6-14.[address] [facility] Immature granulocytes/100 WBC (Bld) 0.500 % 0.0-0.[address] [facility] Comment on above: IG% - Immature Granu locytes (promyelocytes, myelocytes and metamyelocytes) > 1% indicates that a LEFT SHIFT is Present. MCH (RBC) [Entitic mass] 30.3 pg 27.0-32.[address] [facility] Nucleated RBC/100 WBC (Bld) [Ratio] 0 % 0-[address] [facility] MCHC Auto (RBC) [Mass/Vol]Or dered By: Dr. Ahumada on 07-27-2022 MCHC (RBC) [Mass/Vol] 35.4 g/dL 32-36 [facility] Comment on above: Delta: 32.8 on 07/26-1135 Platelets bldOrdered By: Dr. Ahumada on 07-27-2022 Platelets (Bld) [#/Vol] 156 10*3/uL 150-[address] [facility] Absolute lymphocyte countOrd ered By: Dr. Voss on 07-26-2022 Lymphocytes Auto (Unsp spec) [#/Vol] 1.17 10*3/uL 0.83-4.[address] [facility] Basophil percentageOrdered B y: Dr. Voss on 07-26-2022 Basophil percentage 0 SEEN /hpf 0-5 [facility] Basophils/100 WBC (Bld) 0.7 % 0-1 [facility] Chloride [Moles/Vol] 99 mmol/L 98-107 [facility] Eosinophils/100 WBC (Bld) 0.1 % 0-[address] [facility] Glucose [Mass/Vol] 686 mg/dL 74-106 [facility] Comment on above: Critical Result(s) C alled at: 12:11:35 07/26/2022 by: June Donnelly. Results read back by same.Glucose result greater than or equal to 200 mg/dLsuggests DIABETES MELLITUS per A.D.A. criteria. Neutrophils (Bld) [#/Vol] 7.7 10*3/uL 2.0-7.[address] [facility] Neutrophils/100 WBC (Bld) 79.8 % 47-[address] [facility] Potassium [Moles/Vol] 4.2 mmol/L 3.5-5.1 [facility] Sodium [Moles/Vol] 132 mmol/L 136-145 [facility] WBC (Bld) [#/Vol] 9.7 10*3/uL 4.4-11.0 [facility] Bilirubin Test strip Ql (U)O rdered By: Dr. Voss on 07-26-2022 Bilirubin Ql (U) Negative Negative [facility] Blood erythrocytes count (nu mber/volume)Ordered By: Dr. Voss on 07-26-2022 RBC (Bld) [#/Vol] 4.25 10*6/uL 4.2-5.4 [facility] Blood hemoglobin measurement (mass/volume)Ordered By: Dr. Voss on 07-26-2022 Hemoglobin (Bld) [Mass/Vol] 12.5 g/dL 12.0-15.[address] [facility] Blood lymphocytes/100 leukoc ytesOrdered By: Dr. Voss on 07-26-2022 Lymphocytes/100 WBC (Bld) 12.1 % 19-[address] [facility] Blood monocytes/100 leukocyt esOrdered By: Dr. Voss on 07-26-2022 Monocytes/100 WBC (Bld) 5.0 % 0-10 [facility] Blood platelet mean volumeOr dered By: Dr. Voss on 07-26-2022 Platelet mean volume (Bld) [Entitic vol] 12.0 fL 6.2-12.[address] [facility] Determination of erythrocyte mean corpuscular volume (MCV)Ordered By: Dr. Voss on 07-26-2022 MCV (RBC) [Entitic vol] 89.6 fL 81-99 [facility] Glucose Glucometer (BldC) [M ass/Vol]Ordered By: Dr. Voss on 07-26-2022 Glucose [Mass/Vol] mg/dL 74-106 [facility] Comment on above: Dr Abel Malagon NAGEMENT OF PATIENT CARE PER NURSING PROTOCOL Hematocrit Auto (Bld) [Volum e fraction]Ordered By: Dr. Voss on 07-26-2022 Hematocrit (Bld) [Volume fraction] 38.1 % 37-[address] [facility] Ketones Test strip Ql (U)Ord ered By: Dr. Voss on 07-26-2022 Ketones Ql (U) 150 mg/dl Negative [facility] Comment on above: CRITICAL VALUE *HCRI TICAL VALUE VERIFIED. CALLED TO JAMILAH TERAN (ICU)07/26/22 [id number] Eric Anthony.RESULTS READ BACK BY SAME. Laboratory - Chemistry and C hemistry - challengeOrdered By: Dr. Voss on 07-26-2022 CO2 [Moles/Vol] 6.0 mmol/L 21.0-32.[address] [facility] Comment on above: Critical Result(s) C alled at: 12:11:35 07/26/2022 by: June Fung to [facility]. Results read back by same. Magnesium [Mass/Vol] 2.3 mg/dL 1.6-2.6 [facility] Urea nitrogen/Creatinine [Mass ratio] 10.6 mg/mg 10-[address] [facility] Laboratory - Hematology and Cell countsOrdered By: Dr. Voss on 07-26-2022 Erythrocyte distribution width (RBC) [Entitic vol] 43.4 fL 35.1-43.[address] [facility] Erythrocyte distribution width (RBC) [Ratio] 13.2 % 11.6-14.[address] [facility] Immature granulocytes/100 WBC (Bld) 2.300 % 0.0-0.[address] [facility] Comment on above: IG% - Immature Granu locytes (promyelocytes, myelocytes and metamyelocytes) > 1% indicates that a LEFT SHIFT is Present. MCH (RBC) [Entitic mass] 29.4 pg 27.0-32.[address] [facility] Nucleated RBC/100 WBC (Bld) [Ratio] 0 % 0-[address] [facility] MCHC Auto (RBC) [Mass/Vol]Or dered By: Dr. Voss on 07-26-2022 MCHC (RBC) [Mass/Vol] 32.8 g/dL 32-36 [facility] Mucus LM Ql (Urine sed)Order ed By: Dr. Voss on 07-26-2022 Mucus Ql (Urine sed) 0 SEEN /hpf [facility] Nitrite Test strip Ql (U)Ord ered By: Dr. Voss on 07-26-2022 Nitrite Ql (U) Negative Negative [facility] No Panel InformationOrdered By: Dr. Voss on 07-26-2022 Estimated Creatinine Clearance Calc 37.49 ml/min [facility] Estimated GFR (MDRD) Amer 53 mL/min >[address] [facility] Comment on above: GFR Calc Estimated GFR (MDRD) Non-Af Amer 44 mL/min >[address] [facility] Comment on above: Non- GFR Calc Platelets bldOrdered By: Dr. Voss on 07-26-2022 Platelets (Bld) [#/Vol] 234 10*3/uL 150-[address] [facility] Protein Test strip Ql (U)Ord ered By: Dr. Voss on 07-26-2022 Protein Ql (U) 30 mg/dl Negative [facility] Serum or plasma calcium jn urement (mass/volume)Ordered By: Dr. Voss on 07-26-2022 Calcium [Mass/Vol] 9.7 mg/dL 8.5-10.1 [facility] Serum or plasma creatinine m easurement (mass/volume)Ordered By: Dr. Voss on 07-26-2022 Creatinine [Mass/Vol] 1.32 mg/dL 0.55-1.02 [facility] Comment on above: The validity of the calculated GFR & GFRAA in patients over 70 years has not been determined. Clinical correlation is essential. Serum or plasma urea nitroge n measurement (mass/volume)Ordered By: Dr. Voss on 07-26-2022 Urea nitrogen [Mass/Vol] 14 mg/dL 7-[address] [facility] Squamous epithelial cells de tection in urine sediment by light microscopyOrdered By: Dr. Voss on 07-26-2022 Epithelial cells.squamous LM Ql (Urine sed) 0 SEEN /hpf 5-[address] [facility] Thin prep Papanicolaou smear with manual screeningOrdered By: Dr. Voss on 07-26-2022 Thin prep Papanicolaou smear with manual screening 27 5-[address] [facility] Urine blood detectionOrdered By: Dr. Voss on 07-26-2022 RBC Ql (U) 10 /ul Negative [facility] RBC Ql (U) 0-5 SEEN /hpf 0-[address] [facility] Urine clarityOrdered By: Dr. Voss on 07-26-2022 Clarity (U) Clear Clear [facility] Urine color determinationOrd ered By: Dr. Voss on 07-26-2022 Color (U) Straw Yellow [facility] Urine glucose detectionOrder ed By: Dr. Voss on 07-26-2022 Glucose Ql (U) 1000 mg/dl Normal [facility] Urine leukocyte esterase det ection by dipstickOrdered By: Dr. Voss on 07-26-2022 Leukocyte esterase Test strip Ql (U) Negative Negative [facility] Urine pHOrdered By: Dr. Melissa ng on 07-26-2022 pH (U) 6.5 [pH] 5.0 - 8.[address] [facility] Urine sediment bacteria coun t by microscopy (number/high power field)Ordered By: Dr. Voss on 07-26-2022 Bacteria LM.HPF (Urine sed) [#/Area] 0 /[HPF] None Seen [facility] Urine specific gravity measu rementOrdered By: Dr. Voss on 07-26-2022 Specific gravity (U) [Rel density] 1.015 1.002-1.[address] [facility] Urobilinogen Auto test strip Ql (U)Ordered By: Dr. Voss on 07-26-2022 Urobilinogen Ql (U) Normal mg/dl Normal [facility] Whole blood hemoglobin A1c/t otal hemoglobin ratio (mass fraction)Ordered By: Dr. Ahumada on 07-26-2022 HbA1c (Bld) [Mass fraction] % 3.8-5.[address] [facility] Comment on above: Normal < 5.7 % Predi abetic 5.7 - 6.4 % Diabetic >or= 6.5 % Please note range changes. RSV Ag EIAOrdered By: Dr. Malcom jackson on 05-03-2022 RSV Ag Immune stain Ql (Tiss) [facility] SARS-CoV-2 (COVID-19) Ag IA. rapid Ql (Resp)Ordered By: Dr. Gleason on 05-03-2022 SARS-CoV-2 Antigen (Rapid) SARS-CoV-2 (COVID 19) [facility] Basophil percentageOrdered B y: Dr. Mcclendon on 04-11-2022 Bilirubin [Mass/Vol] 0.50 mg/dL 0.20-1.00 [facility] Comment on above: For patients on eltr ombopag therapy, use of Dimension [place] TBIL is not recommended. Chloride [Moles/Vol] 103 mmol/L 98-107 [facility] Glucose [Mass/Vol] 139 mg/dL 74-106 [facility] Comment on above: Fasting Glucose resu lt greater than or equal to 126 mg/dL suggests DIABETES MELLITUS per A.D.A. criteria. Potassium [Moles/Vol] 3.8 mmol/L 3.5-5.1 [facility] Protein [Mass/Vol] 7.7 g/dL 6.4-8.2 [facility] Sodium [Moles/Vol] 139 mmol/L 136-145 [facility] Laboratory - Chemistry and C hemistry - challengeOrdered By: Dr. Mcclendon on 04-11-2022 ALP [Catalytic activity/Vol] 88 U/L 45-[address] [facility] ALT [Catalytic activity/Vol] 14 U/L 13-[address] [facility] CO2 [Moles/Vol] 31.0 mmol/L 21.0-32.[address] [facility] Globulin (S) [Mass/Vol] 3.5 g/dL 2.2-4.2 [facility] Urea nitrogen/Creatinine [Mass ratio] 17.6 mg/mg 10-[address] [facility] No Panel InformationOrdered By: Dr. Mcclendon on 04-11-2022 Estimated GFR (MDRD) Amer 113 mL/min >[address] [facility] Comment on above: GFR Calc Estimated GFR (MDRD) Non-Af Amer 94 mL/min >[address] [facility] Comment on above: Non- GFR Calc Serum or plasma albumin jn urement (mass/volume)Ordered By: Dr. Mcclendon on 04-11-2022 Albumin [Mass/Vol] 4.2 g/dL 3.2-5.0 [facility] Serum or plasma albumin/glob ulin mass ratioOrdered By: Dr. Mcclendon on 04-11-2022 Albumin/Globulin [Mass ratio] 1.2 {ratio} 0.9-2.[address] [facility] Serum or plasma calcium jn urement (mass/volume)Ordered By: Dr. Mcclendon on 04-11-2022 Calcium [Mass/Vol] 9.7 mg/dL 8.5-10.1 [facility] Serum or plasma creatinine m easurement (mass/volume)Ordered By: Dr. Mcclendon on 04-11-2022 Creatinine [Mass/Vol] 0.68 mg/dL 0.55-1.02 [facility] Comment on above: The validity of the calculated GFR & GFRAA in patients over 70 years has not been determined. Clinical correlation is essential. Serum or plasma urea nitroge n measurement (mass/volume)Ordered By: Dr. Mcclendon on 04-11-2022 Urea nitrogen [Mass/Vol] 12 mg/dL 7-[address] [facility] Thin prep Papanicolaou smear with manual screeningOrdered By: Dr. Mcclendon on 04-11-2022 Thin prep Papanicolaou smear with manual screening 8 U/L 15-[address] [facility] Thin prep Papanicolaou smear with manual screening 5 5-[address] [facility] Absolute lymphocyte counton 03-06-2022 Lymphocytes Auto (Unsp spec) [#/Vol] 1.89 10*3/uL 0.83-4.[address] [facility] Work Phone: Basophil percentageon 2021 Basophil percentage 4.0 mg/dL 2.5-4.9 [facility] Work Phone: Chloride [Moles/Vol] 111 mmol/L 98-107 [facility] Work Phone: Glucose [Mass/Vol] 233 mg/dL 74-106 [facility] Work Phone: Comment on above: Glucose result great er than or equal to 200 mg/dLsuggests DIABETES MELLITUS per A.D.A. criteria. Potassium [Moles/Vol] 4.3 mmol/L 3.5-5.1 [facility] Work Phone: Sodium [Moles/Vol] 141 mmol/L 136-145 [facility] Work Phone: Basophils/100 WBC (Bld) 0.5 % 0-1 [facility] Work Phone: Bilirubin [Mass/Vol] 0.30 mg/dL 0.20-1.00 [facility] Work Phone: Comment on above: For patients on eltr ombopag therapy, use of Dimension Dunbar TBIL is not recommended. Eosinophils/100 WBC (Bld) 1.2 % 0-[address] [facility] Work Phone: Neutrophils (Bld) [#/Vol] 1.6 10*3/uL 2.0-7.[address] [facility] Work Phone: Neutrophils/100 WBC (Bld) 37.9 % 47-[address] [facility] Work Phone: Protein [Mass/Vol] 5.6 g/dL 6.4-8.2 [facility] Work Phone: WBC (Bld) [#/Vol] 4.1 10*3/uL 4.4-11.0 [facility] Work Phone: Blood erythrocytes count (nu mber/volume)on 03-06-2022 RBC (Bld) [#/Vol] 3.50 10*6/uL 4.2-5.4 [facility] Work Phone: Blood hemoglobin measurement (mass/volume)on 03-06-2022 Hemoglobin (Bld) [Mass/Vol] 10.8 g/dL 12.0-15.[address] [facility] Work Phone: Blood lymphocytes/100 leukoc yteson 03-06-2022 Lymphocytes/100 WBC (Bld) 46.0 % 19-[address] [facility] Work Phone: Blood monocytes/100 leukocyt eson 03-06-2022 Monocytes/100 WBC (Bld) 13.9 % 0-10 [facility] Work Phone: Blood platelet mean volumeon 03-06-2022 Platelet mean volume (Bld) [Entitic vol] 11.0 fL 6.2-12.[address] [facility] Work Phone: Determination of erythrocyte mean corpuscular volume (MCV)on 03-06-2022 MCV (RBC) [Entitic vol] 88.3 fL 81-99 [facility] Work Phone: Glucose Glucometer (BldC) [M ass/Vol]on 03-06-2022 Glucose [Mass/Vol] 184 mg/dL 74-106 [facility] Work Phone: Comment on above: MANAGEMENT OF PATIEN T CARE PER NURSING PROTOCOL Hematocrit Auto (Bld) [Volum e fraction]on 03-06-2022 Hematocrit (Bld) [Volume fraction] 30.9 % 37-[address] [facility] Work Phone: Laboratory - Chemistry and C hemistry - challengeon 03-06-2022 CO2 [Moles/Vol] 25.0 mmol/L 21.0-32.[address] [facility] Work Phone: [phone] Urea nitrogen/Creatinine [Mass ratio] 6.8 mg/mg 10-[address] [facility] Work Phone: [phone] ALP [Catalytic activity/Vol] 71 U/L 45-[address] [facility] Work Phone: [phone] ALT [Catalytic activity/Vol] 11 U/L 13-[address] [facility] Work Phone: [phone] Globulin (S) [Mass/Vol] 2.9 g/dL 2.2-4.2 [facility] Work Phone: [phone] Magnesium [Mass/Vol] 2.5 mg/dL 1.6-2.6 [facility] Work Phone: [phone] Laboratory - Hematology and Cell countson 03-06-2022 Erythrocyte distribution width (RBC) [Entitic vol] 45.3 fL 35.1-43.[address] [facility] Work Phone: [phone] Erythrocyte distribution width (RBC) [Ratio] 14.2 % 11.6-14.[address] [facility] Work Phone: [phone] Immature granulocytes/100 WBC (Bld) 0.500 % 0.0-0.[address] [facility] Work Phone: [phone] Comment on above: IG% - Immature Granu locytes (promyelocytes, myelocytes and metamyelocytes) > 1% indicates that a LEFT SHIFT is Present. MCH (RBC) [Entitic mass] 30.9 pg 27.0-32.[address] [facility] Work Phone: Nucleated RBC/100 WBC (Bld) [Ratio] 0 % 0-[address] [facility] Work Phone: [phone] MCHC Auto (RBC) [Mass/Vol]on 03-06-2022 MCHC (RBC) [Mass/Vol] 35.0 g/dL 32-36 [facility] Work Phone: No Panel Informationon 03-06 Estimated Creatinine Clearance Calc 67.71 ml/min [facility] Work Phone: [phone] Estimated GFR (MDRD) Amer 103 mL/min >[address] [facility] Work Phone: [phone] Comment on above: GFR Calc Estimated GFR (MDRD) Non-Af Amer 85 mL/min >[address] [facility] Work Phone: Comment on above: Non- GFR Calc Platelets bldon 03-06-2022 Platelets (Bld) [#/Vol] 131 10*3/uL 150-[address] [facility] Work Phone: [phone] Serum or plasma albumin jn urement (mass/volume)on 03-06-2022 Albumin [Mass/Vol] 2.7 g/dL 3.2-5.0 [facility] Work Phone: [phone] Serum or plasma albumin/glob ulin mass ratioon 03-06-2022 Albumin/Globulin [Mass ratio] 0.9 {ratio} 0.9-2.[address] [facility] Work Phone: [phone] Serum or plasma calcium jn urement (mass/volume)on 03-06-2022 Calcium [Mass/Vol] 8.7 mg/dL 8.5-10.1 [facility] Work Phone: [phone] Serum or plasma creatinine m easurement (mass/volume)on 03-06-2022 Creatinine [Mass/Vol] 0.74 mg/dL 0.55-1.02 [facility] Work Phone: Comment on above: The validity of the calculated GFR & GFRAA in patients over 70 years has not been determined. Clinical correlation is essential. Serum or plasma urea nitroge n measurement (mass/volume)on 03-06-2022 Urea nitrogen [Mass/Vol] 5 mg/dL 7-[address] [facility] Work Phone: Thin prep Papanicolaou smear with manual screeningon 03-06-2022 Thin prep Papanicolaou smear with manual screening 5 5-[address] [facility] Work Phone: [phone] Thin prep Papanicolaou smear with manual screening 11 U/L 15-[address] [facility] Work Phone: [phone] Assessment of wrist artery p atency prior to arterial punctureon 03-04-2022 Arterial patency Wrist artery --pre arterial puncture Positive [facility] Work Phone: Base excesson 03-04-2022 Base excess Calc (BldV) [Moles/Vol] -17 mmol/L -2-[address] [facility] Work Phone: Basophil percentageon 2021 Basophil percentage 10.7 mmol/L 22-26 [facility] Work Phone: Basophils/100 WBC (Bld) 96 % 95-99 [facility] Work Phone: Blood platelet morphology de termination (nominal result)on 03-04-2022 Platelet morphology finding Nom (Bld) CLUMPED [facility] Work Phone: CO2 (BldA) [Partial pressure ]on 03-04-2022 CO2 (Bld) [Partial pressure] 24.5 mm[Hg] 35-[address] [facility] Work Phone: Laboratory - Chemistry and C hemistry - challengeon 03-04-2022 Lipase [Catalytic activity/Vol] 497 U/L 73-[address] [facility] Work Phone: No Panel Informationon 03-04 Blood Gas Oxygen Percent [address] [facility] Work Phone: Blood Gas Sample Site L Radial [facility] Work Phone: Blood Gas Specimen Type ART [facility] Work Phone: [phone] Blood Gas Total CO2 12 mmol/L [facility] Work Phone: Oxygen (BldA) [Partial press ure]on 03-04-2022 Oxygen (Bld) [Partial pressure] 89 mmHG 75-[address] [facility] Work Phone: Whole blood hemoglobin A1c/t otal hemoglobin ratio (mass fraction)on 03-04-2022 HbA1c (Bld) [Mass fraction] 13.4 % 3.8-5.[address] [facility] Work Phone: Comment on above: Normal < 5.7 % Predi abetic 5.7 - 6.4 % Diabetic >or= 6.5 % Please note range changes. pH measurementon 03-04-2022 pH (Unsp spec) 7.25 [pH] 7.35-7.[address] [facility] Work Phone: Basophil percentageon 2021 Basophil percentage 0-5 SEEN /hpf 0-5 [facility] Work Phone: Lactate [Moles/Vol] 1.2 mmol/L 0.4-2.0 [facility]: Bilirubin Test strip Ql (U)o n 03-03-2022 Bilirubin Ql (U) Negative Negative [facility] Work Phone: INR in Blood by Coagulation assayon 03-03-2022 INR Coag (Bld) [Relative time] 1.1 {INR} [facility] Work Phone: Ketones Test strip Ql (U)on 03-03-2022 Ketones Ql (U) 150 mg/dl Negative [facility] Work Phone: Comment on above: CRITICAL VALUE VERIF IED. CALLED TO BIJU RIOS RN (ER)03/03/222004 Blaine Villanueva.RESULTS READ BACK BY SAME . CRITICAL VALUE *H Laboratory - Coagulationon 0 03-03-2022 PT Coag (PPP) [Time] 13.4 s 11.7-14.9 [facility] Work Phone: Mucus LM Ql (Urine sed)on Mucus Ql (Urine sed) 0 SEEN /hpf [facility] Work Phone: Nitrite Test strip Ql (U)on 03-03-2022 Nitrite Ql (U) Negative Negative [facility] Work Phone: No Panel Informationon 03-03 Bld Gas Crit Called To/Read Back By Yes [facility] Work Phone: Blood Gas Notified Whom brenna Mendez [facility] Work Phone: Ethyl Alcohol Level < 3.0 mg/dL [facility] Work Phone: Comment on above: The serum:whole bloo d ethanol ratio is approximately 1.14and varies slightly with hematocrit. Medical Alcohol reference interval and critical value innon-tolerant individuals; 50 - 100 Impairment 100 Intoxication 100 - 250 Severe Poisoning 250 - 400 Deep/possible fatal coma Troponin I High Sensitivity 11 pg/mL 3.0-54.[address] [facility] Work Phone: Comment on above: Please Note: New Jessica t Units and Gender Specific Reference Ranges. For more information see Policy Stat Procedure Dunbar High Sensitivity Troponin (TNIH) and attachments. Protein Test strip Ql (U)on 03-03-2022 Protein Ql (U) 30 mg/dl Negative [facility] Work Phone: Serum or plasma acetone nj urement (mass/volume)on 03-03-2022 Acetone [Mass/Vol] LARGE NEG [facility] Work Phone: Squamous epithelial cells de tection in urine sediment by light microscopyon 03-03-2022 Epithelial cells.squamous LM Ql (Urine sed) 0-5 SEEN /hpf 5-[address] [facility] Work Phone: Urine blood detectionon 02-05 RBC Ql (U) 25 /ul Negative [facility] Work Phone: RBC Ql (U) 0-5 SEEN /hpf 0-[address] [facility] Work Phone: [phone] Urine clarityon 03-03-2022 Clarity (U) Clear Clear [facility] Work Phone: Urine coarse granular cast d etectionon 03-03-2022 Coarse Granular Casts LM Ql (Urine sed) 5-10 SEEN /lpf 0-5 /lpf [facility] Work Phone: Urine color determinationon 03-03-2022 Color (U) Straw Yellow [facility] Work Phone: Urine glucose detectionon Glucose Ql (U) 1000 mg/dl Normal [facility] Work Phone: Urine leukocyte esterase det ection by dipstickon 03-03-2022 Leukocyte esterase Test strip Ql (U) 100 /ul Negative [facility] Work Phone: Urine pHon 03-03-2022 pH (U) 5.0 [pH] 5.0 - 8.[address] [facility] Work Phone: Urine sediment bacteria coun t by microscopy (number/high power field)on 03-03-2022 Bacteria LM.HPF (Urine sed) [#/Area] 1 /[HPF] None Seen [facility] Work Phone: Urine sediment yeast count b y microscopy (number/high powered field)on 03-03-2022 Yeast LM.HPF (Urine sed) [#/Area] RARE /hpf None Seen [facility] Work Phone: Urine specific gravity measu rementon 03-03-2022 Specific gravity (U) [Rel density] 1.020 1.002-1.[address] [facility] Work Phone: Urobilinogen Auto test strip Ql (U)on 03-03-2022 Urobilinogen Ql (U) Normal mg/dl Normal [facility] Work Phone: XR ELBOW MINIMUM 3 VIEWS [...] AM Sign Date: 07/22/2018 9:20:04 AM Normal [facility] ([place]) No Panel Information SARS-CoV-2 & FLU Antigen (Rapid) [facility] Work Phone: SARS-CoV-2 (COVID-19) Ag IA. rapid Ql (Resp) SARS-CoV-2 Antigen (Rapid) SARS-CoV-2 (COVID 19) [facility] Work Phone: Vital Signs Date Time Vital Sign Value Performing Clinician Faci lity 07-29-2023 16:28-0500 Diastolic blood pressure 80 mm[Hg] Dr. Milind Lamb Work Phone: [facility] 07-29-2023 16:28-0500 Heart rate 99 /min Dr. Milind Lamb Work Phone: [facility] 07-29-2023 16:28-0500 Respiratory rate 23 /min Dr. Milind Lamb Work Phone: [phone] [address] 07-29-2023 16:28-0500 SaO2% (BldA) [Mass fraction] 98 % Dr. Milind Lamb Work Phone: [facility] 07-29-2023 16:28-0500 Systolic blood pressure 150 mm[Hg] Dr. Milind Lamb Work Phone: [facility] 07-29-2023 12:34-0500 Body height 160.[address] Milind Lamb Work Phone: [facility] 07-29-2023 12:34-0500 Body mass index (BMI) [Ratio] 23.7 kg/m2 Dr. Milind Lamb Work Phone: [facility] 07-29-2023 12:34-0500 Body temperature 95.9 [degF] Dr. Milind Lamb Work Phone: [facility] 07-29-2023 12:34-0500 Body weight 60.[address] Milind Lamb Work Phone: [facility] 07-06-2023 12:39-0500 Body temperature 98.2 [degF] Dr. Milind Lamb Work Phone: [phone] [place] [address] 07-06-2023 12:39-0500 Diastolic blood pressure 71 mm[Hg] Dr. Milind Lamb Work Phone: [facility] 07-06-2023 12:39-0500 Heart rate 98 /min Dr. Milind Lamb Work Phone: [facility] 07-06-2023 12:39-0500 Respiratory rate 18 /min Dr. Milind Lamb Work Phone: [facility] 07-06-2023 12:39-0500 SaO2% (BldA) [Mass fraction] 100 % Dr. Milind Lamb Work Phone: [facility] 07-06-2023 12:39-0500 Systolic blood pressure 141 mm[Hg] Dr. Milind Lamb Work Phone: [facility] 07-05-2023 12:30-0500 Body weight 56.[address] Milind Lamb Work Phone: [facility] 07-05-2023 06:00-0500 Body mass index (BMI) [Ratio] 21.9 kg/m2 Dr. Milind Lamb Work Phone: [facility] 07-02-2023 21:27-0500 Body temperature 98.3 [degF] [facility] 07-02-2023 21:27-0500 Diastolic blood pressure 81 mm[Hg] [facility] 07-02-2023 21:27-0500 Heart rate 124 /min [facility] 07-02-2023 21:27-0500 Respiratory rate 26 /min [facility] 07-02-2023 21:27-0500 SaO2% (BldA) [Mass fraction] 100 % [facility] 07-02-2023 21:27-0500 Systolic blood pressure 176 mm[Hg] [facility] 07-02-2023 20:50-0500 Body mass index (BMI) [Ratio] 21.4 kg/m2 [facility] 07-02-2023 20:50-0500 Body weight 54.88 kg [facility] 07-02-2023 18:19-0500 Body height 160.02 cm [facility] 07-02-2023 09:02-0500 Diastolic blood pressure 87 mm[Hg] [facility] 07-02-2023 09:02-0500 Heart rate 110 /min [facility] 07-02-2023 09:02-0500 Respiratory rate 16 /min [facility] 07-02-2023 09:02-0500 SaO2% (BldA) [Mass fraction] 98 % [facility] 07-02-2023 09:02-0500 Systolic blood pressure 149 mm[Hg] [facility] 07-02-2023 07:39-0500 Body height 160.02 cm [facility] 07-02-2023 07:39-0500 Body mass index (BMI) [Ratio] 21.4 kg/m2 [facility] 07-02-2023 07:39-0500 Body temperature 96.8 [degF] [facility] 07-02-2023 07:39-0500 Body weight 55.06 kg [facility] 06-30-2023 23:17-0500 Body height 160.02 cm [facility] 06-30-2023 23:17-0500 Body mass index (BMI) [Ratio] 21.9 kg/m2 [facility] 06-30-2023 23:17-0500 Body temperature 97.2 [degF] [facility] 06-30-2023 23:17-0500 Body weight 56.01 kg [facility] 06-30-2023 23:17-0500 Diastolic blood pressure 87 mm[Hg] [facility] 06-30-2023 23:17-0500 Heart rate 105 /min [facility] 06-30-2023 23:17-0500 Respiratory rate 18 /min [facility] 06-30-2023 23:17-0500 SaO2% (BldA) [Mass fraction] 100 % [facility] 06-30-2023 23:17-0500 Systolic blood pressure 169 mm[Hg] [facility] 07-28-2022 14:10-0500 Body temperature 98 [degF] Dr. Milind Lamb Work Phone: [facility] 07-28-2022 14:10-0500 Diastolic blood pressure 72 mm[Hg] Dr. Milind Lamb Work Phone: [facility] 07-28-2022 14:10-0500 Heart rate 86 /min Dr. Milind Lamb Work Phone: [facility] 07-28-2022 14:10-0500 Respiratory rate 18 /min Dr. Milind Lamb Work Phone: [phone] [address] 07-28-2022 14:10-0500 SaO2% (BldA) [Mass fraction] 98 % Dr. Milind Lamb Work Phone: 1([phone])[phone] [place] [address] 07-28-2022 14:10-0500 Systolic blood pressure 124 mm[Hg] Dr. Milind Lamb Work Phone: 5(055)[phone] [place] [address] 07-28-2022 05:51-0500 Body weight 49.[address] Milind Lamb Work Phone: 7(302)[phone] [place] [address] 07-26-2022 15:25-0500 Body height 160.[address] Milind Lamb Work Phone: 8(441)101-736918 [place] [address] 07-26-2022 13:53-0500 Body mass index (BMI) [Ratio] 19.3 kg/m2 Dr. Milind Lamb Work Phone: 5(253)[phone] [place] [address] 07-26-2022 13:00-0500 Body temperature 97.4 [degF] Dr. Milind Lamb Work Phone: 8(629)[phone] [place] [address] 07-26-2022 13:00-0500 Diastolic blood pressure 73 mm[Hg] Dr. Milind Lamb Work Phone: 9(233)[phone] [address] 07-26-2022 13:00-0500 Heart rate 107 /min Dr. Milind Lamb Work Phone: 4(968)932-821814 [place] [address] 07-26-2022 13:00-0500 Respiratory rate 27 /min Dr. Milind Lamb Work Phone: 8(697)[phone] [place] [address] 07-26-2022 13:00-0500 SaO2% (BldA) [Mass fraction] 99 % Dr. Milind Lamb Work Phone: [facility] 07-26-2022 13:00-0500 Systolic blood pressure 138 mm[Hg] Dr. Milind Lamb Work Phone: [facility] 07-26-2022 11:12-0500 Body height 160.[address] Milind Lamb Work Phone: [phone] [address] 07-26-2022 11:12-0500 Body mass index (BMI) [Ratio] 21.2 kg/m2 Dr. Milind Lamb Work Phone: 5(330)[phone] [address] 07-26-2022 11:12-0500 Body weight 54.[address] Milind Lamb Work Phone: 9(063)[phone] [address] 05-03-2022 06:11-0400 Body height 160.[address] Milind Lamb Work Phone: 6(547)077-850714 [place] [address] Work Phone: 05-03-2022 06:11-0400 Body mass index (BMI) [Ratio] 21.4 kg/m2 Dr. Milind Lamb Work Phone: 1(084)[phone] [address] 05-03-2022 06:11-0400 Body temperature 98 [degF] Dr. Milind Lamb Work Phone: 3(312)619-797714 [place] [address] 05-03-2022 06:11-0400 Body weight 54.[address] Milind Lamb Work Phone: 1(415)[phone] [address] 05-03-2022 06:11-0400 Diastolic blood pressure 84 mm[Hg] Dr. Milind Lamb Work Phone: 9(303)265-291714 [place] [address] 05-03-2022 06:11-0400 Heart rate 102 /min Dr. Milind Lamb Work Phone: 3(982)[phone] [address] 05-03-2022 06:11-0400 Respiratory rate 16 /min Dr. Milind Lamb Work Phone: 1(362)[phone] [place] [address] 05-03-2022 06:11-0400 SaO2% (BldA) [Mass fraction] 100 % Dr. Milind Lamb Work Phone: [facility] 05-03-2022 06:11-0400 Systolic blood pressure 157 mm[Hg] Dr. Milind Lamb Work Phone: [facility] 04-11-2022 08:16-0400 Body height 160.[address] Milind Lamb Work Phone: [facility] Work Phone: 04-11-2022 08:16-0400 Body mass index (BMI) [Ratio] 20.9 kg/m2 Dr. Milind Lamb Work Phone: [facility] 04-11-2022 08:16-0400 Body temperature 96.5 [degF] Dr. Milind Lamb Work Phone: [facility] 04-11-2022 08:16-0400 Body weight 53.[address] Milind Lamb Work Phone: [facility] 04-11-2022 08:16-0400 Diastolic blood pressure 81 mm[Hg] Dr. Milind Lamb Work Phone: [facility] 04-11-2022 08:16-0400 Heart rate 80 /min Dr. Milind Lamb Work Phone: [facility] 04-11-2022 08:16-0400 Respiratory rate 18 /min Dr. Milind Lamb Work Phone: [facility] 04-11-2022 08:16-0400 SaO2% (BldA) [Mass fraction] 97 % Dr. Milind Lamb Work Phone: [facility] 04-11-2022 08:16-0400 Systolic blood pressure 140 mm[Hg] Dr. Milind Lamb Work Phone: [facility] 03-06-2022 14:50-0400 Body temperature 97.9 [degF] Dr. Milind Lamb Work Phone: [facility] Work Phone: 08-31-2022 14:50-0400 Diastolic blood pressure 88 mm[Hg] Dr. Milind Lamb Work Phone: [facility] Work Phone: 03-06-2022 14:50-0400 Heart rate 91 /min Dr. Milind Lamb Work Phone: [facility] Work Phone: 03-06-2022 14:50-0400 Respiratory rate 16 /min Dr. Milind Lamb Work Phone: [facility] Work Phone: 03-06-2022 14:50-0400 SaO2% (BldA) [Mass fraction] 98 % Dr. Milind Lamb Work Phone: [facility] Work Phone: 03-06-2022 14:50-0400 Systolic blood pressure 131 mm[Hg] Dr. Milind Lamb Work Phone: [facility] Work Phone: 03-06-2022 09:27-0400 Body height 160.[address] Milind Lamb Work Phone: [facility] Work Phone: 03-06-2022 09:27-0400 Body weight 57.[address] Milind Lamb Work Phone: [facility] Work Phone: 03-03-2022 20:17-0400 Body mass index (BMI) [Ratio] 20.8 kg/m2 Dr. Milind Lamb Work Phone: [facility] Work Phone: Encounters Encounter Date Encounter Type Care Provider Facility Start: 10-18-2024 End: 10-18-[address] Milind Lamb MD Work Phone: [facility] Work Phone: Start: 10-18-2024 End: 10-18-[address] Milind Lamb MD -Laboratory, [facility] Start: 10-18-2024 End: 10-18-2024 ambulatory Milind Lamb Facility:[facility] Start: 07-20-2024 End: 07-20-[address] Milind Lamb MD -Laboratory, [facility] Start: 07-20-2024 End: 07-20-2024 ambulatory Milind Lamb Facility:[facility] Start: 07-16-2024 End: 07-16-2024 Patient encounter procedure Nasir LIRA [facility] Work Phone: Start: 07-16-2024 End: 07-16-2024 ambulatory Nasir LIRA Facility:[facility] Start: 05-02-2024 ambulatory Crio diaz Darrell Facili ty:[facility] Start: 05-02-2024 End: 05-04-2024 Evaluation and management of inpatient Ciro joe Darrell Facility:[facility] Start: 03-01-2024 ambulatory Harry Medrano Fac ility:[facility] Start: 03-01-2024 End: 03-05-2024 Evaluation and management of inpatient Harry Medrano Facility:[facility] Start: 07-29-2023 End: 07-29-2023 Emergency department patient visit Dr. Milind Lamb Work Phone: [facility] Work Phone: Start: 07-18-2023 End: 08-11-[address] Milind Lamb Work Phone: [facility] Work Phone: Start: 07-18-2023 End: 08-11-[address] Milind Lamb Work Phone: [facility] Work Phone: Start: 07-18-[address] Milind Lamb Work Phone: [facility] Work Phone: Start: 07-06-2023 Non-patient / Non-visit Dr. Milind Lamb Work Phone: [facility] Work Phone: Start: 07-05-2023 Non-patient / Non-visit Dr. Milind Lamb Work Phone: [facility] Work Phone: Start: 07-04-2023 Non-patient / Non-visit Dr. Milind Lamb Work Phone: [facility] Work Phone: Start: 07-03-2023 Non-patient / Non-visit Dr. Milind Lamb Work Phone: [facility] Physicians Work Phone: Start: 07-02-2023 End: 07-06-2023 Evaluation and management of inpatient [facility] Work Phone: Start: 07-02-2023 Non-patient / Non-visit Dr. Milind Lamb Work Phone: [facility] Work Phone: Start: 07-02-2023 End: 07-02-2023 Emergency department patient visit [facility] Work Phone: Start: 06-30-2023 End: 07-01-2023 Emergency department patient visit [facility] Work Phone: Start: 05-21-2023 End: 05-21-[address] [facility] Work Phone: Start: 05-21-2023 End: 05-21-2023 Patient encounter procedure [facility] Start: 07-28-2022 Non-patient / Non-visit Dr. Milind Lamb Work Phone: [facility] Start: 07-27-2022 Non-patient / Non-visit Dr. Milind Lamb Work Phone: [facility] Start: 07-26-2022 Non-patient / Non-visit Dr. Milind Lamb Work Phone: [facility] Start: 07-26-2022 End: 07-28-2022 Evaluation and management of inpatient Dr. Milind Lamb Work Phone: [facility] Start: 05-03-2022 End: 05-03-2022 Emergency department patient visit Dr. Milind Lamb Work Phone: [facility] Start: 04-11-2022 End: 04-11-[address] Milind Lamb Work Phone: [facility] Work Phone: Start: 04-11-2022 End: 04-11-[address] Milind Lamb Work Phone: [facility] Start: 03-08-2022 End: 03-08-[address] Milind Lamb Work Phone: [facility] Work Phone: Start: 03-08-2022 End: 03-08-[address] Milind Lamb Work Phone: [facility] Start: 03-08-[address] Milind Lamb Work Phone: [facility] Start: 03-06-2022 Non-patient / Non-visit Dr. Milind Lamb Work Phone: [facility] Start: 03-06-2022 Non-patient / Non-visit Dr. Milind Lamb Work Phone: [facility] Start: 03-05-2022 Non-patient / Non-visit Dr. Milind Lamb Work Phone: [facility] Start: 03-05-2022 Non-patient / Non-visit Dr. Milind Lamb Work Phone: [facility] Start: 03-04-2022 Non-patient / Non-visit Dr. Milind Lamb Work Phone: [facility] Start: 03-03-2022 End: 03-06-2022 Evaluation and management of inpatient Dr. Milind Lamb Work Phone: [facility] Start: 07-22-2018 End: 07-23-2018 [...] Date Care Activity Detail Author Start: 07-29-2023 [facility] Start: 07-06-[address] [facility] Start: 07-03-2023 Care regimes management [facility] Start: 07-03-[address] [facility] Start: 07-03-2023 [facility] Start: 07-03-2023 [facility] Start: 07-03-2023 End: 07-03-[address] [facility] Start: 07-03-2023 Complete blood count [facility] Start: 07-02-[address] [facility] Start: 07-02-2023 Ambulation without limitation [facility] Start: 07-02-2023 Assessment of risk o f venous thromboembolism [facility] Start: 07-02-2023 Continuous pulse oximetry [facility] Start: 07-02-2023 End: 07-02-2023 Following clinical pathway protocol [facility] Start: 07-02-2023 Incentive spirometry [facility] Start: 07-02-2023 Insertion of cathete r into peripheral vein [facility] Start: 07-02-2023 Lab findings surveillance [facility] Start: 07-02-2023 Measuring intake and output [facility] Start: 07-02-[address] Notification [address] [facility] Start: 07-02-[address] [facility] Start: 07-02-[address] [facility] Start: 07-02-2023 Patient referral to dietitian [facility] Start: 07-02-2023 Providing care accor ding to standard [facility] Start: 07-02-2023 Referral to occupati onal therapist [facility] Start: 07-02-2023 Referral to service [facility] Start: 07-02-2023 Vital signs measurements [facility] Start: 07-02-2023 [facility] Start: 07-02-2023 Verification routine [facility] Start: 07-02-2023 Admission procedure [facility] Start: 07-02-2023 End: 07-02-[address] [facility] Start: 07-02-2023 [facility] Start: 07-02-2023 Bacteria identified in Urine by Culture Urine Culture [facility] Start: 07-02-2023 [facility] Start: 07-01-2023 [facility] Start: 07-28-[address] [facility] Start: 07-27-2022 Care regimes management [facility] Start: 07-27-20[address] Notification [address] [facility] Start: 07-27-2022 [facility] Start: 07-26-2022 Assessment of risk o f venous thromboembolism [facility] Start: 07-26-2022 End: 07-26-2022 Following clinical pathway protocol [facility] Start: 07-26-2022 Insertion of cathete r into peripheral vein [facility] Start: 07-26-2022 Lab findings surveillance [facility] Start: 07-26-2022 Measuring intake and output [facility] Start: 07-26-20[address] Notification [address] [facility] Start: 07-26-[address] [facility] Start: 07-26-2022 Patient referral to dietitian [facility] Start: 07-26-2022 Providing care accor ding to standard [facility] Start: 07-26-2022 Vital signs measurements [facility] Start: 07-26-2022 End: 07-26-[address] [facility] Start: 07-26-2022 Verification routine [facility] Start: 07-26-2022 Admission procedure [facility] Start: 07-26-[address] [facility] Start: 07-26-2022 [facility] Start: 07-26-2022 Patient referral to dietitian [facility] Start: 05-03-2022 [facility] Start: 03-06-[address] [facility] Work Phone: Start: 03-05-2022 Referral to occupati onal therapist [facility] Work Phone: Start: 03-05-2022 Referral to service [facility] Work Phone: Start: 03-04-2022 Care regimes management [facility] Work Phone: Start: 03-04-[address] Notification [address] [facility] Work Phone: Start: 03-04-2022 [facility] Work Phone: Start: 03-04-2022 Consultation [facility] Work Phone: Start: 03-03-2022 End: 03-04-[address] [facility] Work Phone: Start: 03-03-2022 Application of inter mittent pneumatic compression device [facility] Work Phone: Start: 03-03-[address] [facility] Work Phone: Start: 03-03-2022 Assessment of risk o f venous thromboembolism [facility] Work Phone: Start: 03-03-2022 Continuous pulse oximetry [facility] Work Phone: Start: 03-03-2022 Elevation of head of bed [facility] Work Phone: Start: 03-03-[address] [facility] Work Phone: Start: 03-03-2022 End: 03-03-2022 Following clinical pathway protocol [facility] Work Phone: Start: 03-03-2022 Incentive spirometry [facility] Work Phone: Start: 03-03-2022 Inhalation therapy procedure [facility] Work Phone: Start: 03-03-2022 Insertion of cathete r into peripheral vein [facility] Work Phone: Start: 03-03-2022 Introduction of urin cristy catheter [facility] Work Phone: Start: 03-03-2022 Lab findings surveillance [facility] Work Phone: Start: 03-03-2022 Measuring intake and output [facility] Work Phone: Start: 03-03-20[address] Notification [address] [facility] Work Phone: Start: 03-03-[address] [facility] Work Phone: Start: 03-03-[address] [facility] Work Phone: Start: 03-03-2022 Patient referral to dietitian [facility] Work Phone: Start: 03-03-2022 Providing care accor ding to standard [facility] Work Phone: Start: 03-03-2022 Provision of activit y privileges [facility] Work Phone: Start: 03-03-2022 Referral to service [facility] Work Phone: Start: 03-03-2022 Vital signs measurements [facility] Work Phone: Start: 03-03-2022 Admission procedure [facility] Work Phone: Start: 03-03-2022 [facility] Work Phone: Anion gap measurement [facility] Anion gap measurement [facility] Anion gap measurement [facility] Anion gap measurement [facility] Bilirubin measurement, urine [facility] BUN/Creatinine ratio [facility] BUN/Creatinine ratio [facility] BUN/Creatinine ratio [facility] BUN/Creatinine ratio [facility] Calcium [Mass/volume ] in Serum or Plasma [facility] Calcium [Mass/volume ] in Serum or Plasma [facility] Calcium [Mass/volume ] in Serum or Plasma [facility] Calcium [Mass/volume ] in Serum or Plasma [facility] Carbon dioxide, tota l [Moles/volume] in Serum or Plasma [facility] Carbon dioxide, tota l [Moles/volume] in Serum or Plasma [facility] Carbon dioxide, tota l [Moles/volume] in Serum or Plasma [facility] Carbon dioxide, tota l [Moles/volume] in Serum or Plasma [facility] Chloride [Moles/volu me] in Serum or Plasma [facility] Chloride [Moles/volu me] in Serum or Plasma [facility] Chloride [Moles/volu me] in Serum or Plasma [facility] Chloride [Moles/volu me] in Serum or Plasma [facility] Creatinine [Moles/vo lume] in Serum or Plasma [facility] Creatinine [Moles/vo lume] in Serum or Plasma [facility] Creatinine [Moles/vo lume] in Serum or Plasma [facility] Creatinine [Moles/vo lume] in Serum or Plasma [facility] Glucose [Mass/volume ] in Serum or Plasma [facility] Glucose [Mass/volume ] in Serum or Plasma [facility] Glucose [Mass/volume ] in Serum or Plasma [facility] Glucose [Mass/volume ] in Serum or Plasma [facility] Hematocrit [Volume F raction] of Blood [facility] Hemoglobin [Mass/vol ume] in Blood [facility] Hemoglobin [Presence] in Urine [facility] Hemoglobin A1c/Hemoglobin.total in Blood [facility] Leukocytes [#/volume] in Blood [facility] Mean corpuscular hem oglobin concentration determination [facility] Mean corpuscular hem oglobin determination [facility] Measurement of keton es in urine using dipstick [facility] Measurement of renal function [facility] Measurement of renal function [facility] Measurement of renal function [facility] Measurement of renal function [facility] Microscopic urinalysis [facility] Patient Education [facility] Work Phone: Patient referral [facility] Work Phone: pH of Urine [facility] Platelets [#/volume] in Blood [facility] Potassium [Moles/vol ume] in Serum or Plasma [facility] Potassium [Moles/vol ume] in Serum or Plasma [facility] Potassium [Moles/vol ume] in Serum or Plasma [facility] Potassium [Moles/vol ume] in Serum or Plasma [facility] Red blood cell count [facility] Red cell distributio n width determination [facility] Sodium [Moles/volume ] in Serum or Plasma [facility] Sodium [Moles/volume ] in Serum or Plasma [facility] Sodium [Moles/volume ] in Serum or Plasma [facility] Sodium [Moles/volume ] in Serum or Plasma [facility] Specific gravity of Urine [facility] Urea nitrogen [Mass/ volume] in Serum or Plasma [facility] Urea nitrogen [Mass/ volume] in Serum or Plasma [facility] Urea nitrogen [Mass/ volume] in Serum or Plasma [facility] Urea nitrogen [Mass/ volume] in Serum or Plasma [facility] Urinalysis, blood, qualitative [facility] Urine dipstick for glucose [facility] Urine dipstick for l eukocyte esterase [facility] Urine dipstick for nitrite [facility] Urine dipstick for protein [facility] Urine examination [facility] Urine microscopy: ep ithelial cells [facility] Urine Microscopy: white cells [facility] Urobilinogen [Presen ce] in Urine [facility] Payers Date Payer Category Payer Unknown [id number] 2024 Self-pay [id number] 2018 Unknown [id number] 1960 Unknown [id number] 2.16.8 [id number] Unknown ANTHEM [id number] Unknown [facility] [id number] Unknown [id number] 2.16.8 [id number] Unknown [id number] 2.16.8 [id number] Unknown [id number] 2.16.8 [id number] Unknown [id number] 2.16.8 [id number] Unknown [id number] 2.16.8 [id number] Unknown [id number] 2.16.8 [id number] Unknown [id number] 2.16.8 [id number] Unknown [id number] 2.16.8 [id number] Unknown [id number] 2.16.8 [id number] Unknown [id number] 2.16.8 [id number] Unknown [id number] 2.16.8 [id number] Unknown [id number] 2.16.8 [id number] Unknown [id number] 2.16.8 [id number] Social History Date Type Detail Facility Start: 03-03-2022 End: 07-29-2023 Tobacco smoking status NHIS Unknown if ever smoked [facility] Start: 1960 Sex Assigned At Female [facility] Start: 05-03-2024 Tobacco smoking stat us NHIS Ex-smoker (finding) [facility] Start: 10-22-2024 Sex Female (finding) [facility] Medical Equipment Procedure Code Equipment Code Equipment [...] Assessment Result Facility 07-06-2023 Functional status Ambulates [facility] Work Phone: 07-28-2022 Functional status Ambulates [facility] Work Phone: 03-06-2022 Functional status Chair [facility] Work Phone: Mental Status Date Assessment Result Facility 07-29-2023 Cognitive function Level Of Cons ciousness Awake;Alert;Appropriate;Follow s Commands [facility] Work Phone: 07-06-2023 Cognitive function Voice/Name [facility] Work Phone: 07-28-2022 Cognitive function Voice/Name [facility] Work Phone: 05-03-2022 Cognitive function Level Of Cons ciousness Awake;Alert;Appropriate;Follow s Commands [facility] Work Phone: 03-06-2022 Cognitive function Voice/Name [facility] Work Phone: Clinical Notes 05-03-2022 to 05-04-2024 Note Date & Type Note Facility 05-04-2024 Note [facility] 03-05-2024 Note [facility] 07-29-2023 Discharge summary Note Date/Time July 29, 2023 2:09pm [facility] Medical Records Department [address] [place] [address] Emergency Department Summary 07/29/23 MR#: [id number] Acct: [id number] Name: ROBERT BRUCE Rep #:[id number] : 1960 63 From: Reece Smith MD [...] (Auto) 72.9 H Lymph % (Auto) 19.3 [place] % (Auto) 5.7 Eos % (Auto) 1.1 [...] Clarity Clear Urine pH 6.0 Ur Specific [place] 1.020 Urine Protein Negative Urine Glucose (UA) [...] (Auto) Neut % (Auto) Lymph % (Auto) [place] % (Auto) Eos % (Auto) Baso % (Auto) Absolute Neuts (auto) Absolute Lymphs (auto) Nucleated RBC % Sodium Potassium Chloride Carbon Dioxide Anion Gap BUN Creatinine Estim Creat Clear Calc Est GFR (MDRD) Af Amer Est GFR (MDRD) Non-Af BUN/Creatinine Ratio Glucose Calcium Troponin I High Sens Urine Color Urine Clarity Urine pH Ur Specific [place] Urine Protein Urine Glucose (UA) Urine Ketones [...] your Primary Care Provider. Call [facility] ([phone]) or report to the closest Emergency Room. Call 911 if necessary. 07/29/231621 <Electronically signed by Reece Smith MD> Cosigner Signature (if applicable): CC: Dr. Milind Lamb MD ~ Signed [facility] Work Phone: 1(911) 692-557712-27-2023 Discharge summary Author [facility] July 02, 2023 8:59pm Note Date/Time July 02, 2023 7:16pm [facility] Medical Records Department [address] [place] [address] Emergency Department Summary 07/02/23 MR#: [id number] Acct: [id number] Name: ROBERT BRUCE Rep #:[id number] : 1960 63 From: Steven Voss MD [...] denies cough or sputum production. Denies dyspnea [place] exertion. She denies abdominal pain, nausea, vomiting [...] (Auto) 74.0 H Lymph % (Auto) 20.1 [place] % (Auto) 4.6 Eos % (Auto) 0.1 [...] Clarity Clear Urine pH 5.0 Ur Specific [place] 1.020 Urine Protein 30 H Urine Glucose [...] follows: Interpretation: Sinus Tachycardia (Rate is 113. IA interval is 138 ms. QRS durations 88 ms. QT duration 344 ms. [place] is normal. There is nonseptic changes which [...] insulin to treat DKA), Discussing w/Patient &/or Family/Photographic Hand Developer, Discussing w/Consultants and Arranging Admission or Transfer Discharge Plan Dx/Rx/DC Orders Clinical Impression: Pyuria, Back pain, Diabetic ketoacidosis associated with type 1 diabetes mellitus, Elevated serum creatinine, Sinus tachycardia by electrocardiogram Disposition Disposition: Acute Care Hospital [facility] What to do if you have Problems For any increased pain, shortness of breath, bleeding, nausea or vomiting, chestpain, or any unexpected problems, contact your Primary Care Provider. Call [facility] ([phone]) or report to the closest Emergency Room. Call 911 if necessary. 07/02/232058 <Electronically signed by Steven Voss MD> Cosigner Signature (if applicable): CC: Dr. Milind Lamb MD ~ Signed [facility] Work Phone: 1(936) 139-549212-27-2023 Hospital Discharge instructions Additional Instructions Ice 20 minutes on, 20 minutes off. Do not do heat. Perform lumbar stretching exercises as shown at bedside and on discharge paperwork. If nosebleed starts again, hold 20 minutes on continuous pressure, if bleeding does not stop, return to the ER for reevaluation. Use gmxb-faz-vxyawuh MiraLAX twice a day for the next 3 to 4 days for good bowel relief. Use zmsv-zfn-ejkjhyj magnesium citrate or mineral oil 1-2 bottles a day for the next 2 days to help with the bowels as well. Use either gvxw-dwk-vjncoye Motrin, Advil, ibuprofen or Naprosyn daily to help with pain and inflammation. Follow-up and establish [facility]CP [facility]: 1(617) 618-424701-22-[address] Ahumada [facility] July 28, 2022 2:11pm Note Date/Time July 28, 2022 2 :11pm [facility] Medical Records Department [address] [place] [address] Discharge Summary 07/28/22 1409 MR#: [id number] Acct: [id number] Name: ROBERT BRUCE Rep #:[id number] : 1960 62 From: Sanjiv Ahumada DO PCP: Dr. Milind Lamb MD Status:ADM I N Location: [place] [id number] Providers Date of Admission: 07/26/22 Date of [...] Freq: Status: Active Protocol: Document 07/26/22 15:35 [facility] (Rec: 07/26/22 15:35 [facility] [id number]) Nutrition Malnutrition Evidence of Malnutrition Exists Yes [...] mg PO BID Referrals / Follow Up: [facility] [Provider Group] - Within 1 Month Milind Lamb MD [Primary Care Provider] - Within 2 Weeks Disposition Disposition (needs filled in before D/C Order can be placed): Home, Self Care Charges/Coding Visit Charges Inpatient E&M: 21276 Disch Hosp >30min 07/28/22 1411 <Electronically signed by Sanjiv Ahumada DO> Cosigner Signature (if applicable): CC: Dr. Sanjiv Ahumada DO; Dr. Milind Lamb MD~ Signed [facility] Work Phone: 1(665) 313-591501-22-[address] Ahumada [facility] July 28, 2022 2:09pm Note Date/Time July 28, 2022 2 :02pm [facility] Medical Records Department [address] [place] [address] Instructions for Home/Discharge Instructions 07/28/22 1402 MR#: [id number] Acct: [id number] Name: ROBERT BRUCE Rep #:[id number] : 1960 62 From: Sanjiv Ahumada DO [...] mg PO BID Referrals / Follow Up: [facility] [Provider Group] - Within 1 Month Milind Lamb MD [Primary Care Provider] - Within 2 Weeks Disposition Disposition (needs filled in before D/C Order can be placed): Home, Self Care 07/28/22 1409<Electronically signed by Sanjiv Ahumada DO>Sanjiv Ahumada DO CC: Dr. Milind Lamb MD ~ Signed [facility] Work Phone: 1(374) 833-463201-21-[address] Ahumada [facility] July 27, 2022 2:19pm Note Date/Time July 27, 2022 7 :43am [facility] Medical Records Department [address] [place] [address] Progress Note - Hospitalist 07/27/22 0739 MR#: [id number] Acct: [id number] Name: ROBERT BRUCE Rep #:[id number] : 1960 62 From: Sanjiv Ahumada DO PCP: Dr. Milind Lamb MD Status:ADM I N Location: [place] [address] Subjective Subjective Feels well. Objective Data Objective [...] 07/26/22 15:35 [facility] (Rec: 07/26/22 15:35 [facility] [id number]) Nutrition Malnutrition Evidence of Malnutrition Exists Yes [...] 79.8 H, Lymph % (Auto) 12.1 L, [place] % (Auto) 5.0, Eos % (Auto) 0.1, [...] Clarity Clear, Urine pH 6.5, Ur Specific [place] 1.015, Urine Protein 30 H, Urine Glucose [...] % (Auto) 58.4, Lymph % (Auto) 29.5, [place] % (Auto) 10.3 H, Eos % (Auto) [...] oral agents. Charges/Coding Visit Charges Inpatient E&M: 28380 Subs Hosp L2 07/27/22 0896 <Electronically signed by Sanjiv Ahumada DO> Cosigner Signature (if applicable): CC: ~ Signed [facility] Work Phone: 1(328) 287-217201-20-2023 History and physical note Author Dr. Ahumada [facility] July 26, 2022 1:45pm Note Date/Time July 26, 2022 1 :45pm [facility] Medical Records Department [address] [place] [address] H&P Exam - Hospitalist 07/26/22 1340 MR#: [id number] Acct: [id number] Name: ROBERT BRUCE Rep #:[id number] : 1960 62 From: Sanjiv Ahumada DO [...] service was contacted for admission. [facility] Medical History Anxiety and depression COVID-19 Diabetes [...] 79.8 H, Lymph % (Auto) 12.1 L, [place] % (Auto) 5.0, Eos % (Auto) 0.1, [...] PLAN: Plan VTE prophylaxis with enoxaparin. 07/26/22 4078 <Electronically signed by Sanjiv Ahumada DO> Cosigner Signature (if applicable): CC: Dr. Sanjiv Ahumada DO; Dr. Milind Lamb MD~ Signed [facility] Work Phone: 1(547) 952-474801-20-[address] Voss [facility] July 26, 2022 12:19pm Note Date/Time July 26, 2022 1 1:41am [facility] Medical Records Department [address] [place] [address] Emergency Department Summary 07/26/22 MR#: [id number] Acct: [id number] Name: ROBERT BRUCE Rep #:[id number] : 1960 62 From: Steven Voss MD [...] 79.8 H Lymph % (Auto) 12.1 L [place] % (Auto) 5.0 Eos % (Auto) 0.1 [...] Interpretation: Sinus Tachycardia (Heart rate is 111. IA interval is 188 ms. Cures duration 92 ms. QT duration during 26 ms. [place] is normal. There isartifact noted. There may [...] creatinine, Tachypnea Disposition Disposition: Acute Care Hospital [facility] What to do if you have Problems For any increased pain, shortness of breath, bleeding, nausea or vomiting, chestpain, or any unexpected problems, contact your Primary Care Provider. Call [facility] ([phone]) or report to the closest Emergency Room. Call 911 if necessary. 07/26/22 1219 <Electronically signed by Steven Voss MD> Cosigner Signature (if applicable): CC: Dr. Milind Lamb MD ~ Signed [facility] Work Phone: 1(113) 273-569501-20-[address] Voss [facility] July 26, 2022 12:19pm Note Date/Time July 26, 2022 1 1:41am [facility] Medical Records Department [address] [place] [address] Emergency Department Summary 07/26/22 MR#: [id number] Acct: [id number] Name: ROBERT BRUCE Rep #:[id number] : 1960 62 From: Steven Voss MD [...] 79.8 H Lymph % (Auto) 12.1 L [place] % (Auto) 5.0 Eos % (Auto) 0.1 [...] Interpretation: Sinus Tachycardia (Heart rate is 111. IA interval is 188 ms. Cures duration 92 ms. QT duration during 26 ms. [place] is normal. There isartifact noted. There may [...] creatinine, Tachypnea Disposition Disposition: Acute Care Hospital [facility] What to do if you have Problems For any increased pain, shortness of breath, bleeding, nausea or vomiting, chestpain, or any unexpected problems, contact your Primary Care Provider. Call [facility] ([phone]) or report to the closest Emergency Room. Call 911 if necessary. 07/26/22 1214 <Electronically signed by Steven Voss MD> Cosigner Signature (if applicable): CC: Dr. Milind Lamb MD ~ Signed [facility] Work Phone: 1(239) 428-340711-01-2022 Hospital Discharge instructions Additional Instructions Use [id number] cold and flu medicine to help with your symptoms. You can use sugar-free cough drops. Use the inhaler given to you 1 to 2 puffs every 4-6 hours as needed for shortness of breath or cough. Drink lots of fluids.[facility] Work Phone: 1(121) 444-149810-28-2022 Hospital Discharge instructions Additional Instructions Use ekwr-[id number]-[id number] cold and flu medicine to help with your symptoms. You can use sugar-free cough drops. Use the inhaler given to you 1 to 2 puffs every 4-6 hours as needed for shortness of breath or cough. Drink lots of fluids.[facility] Work Phone: Discharge summary Author Dr. Ahumada [facility] July 28, 2022 2:09pm Note Date/Time July 28, 2022 2 :02pm [facility] Medical Records Department [address] [place] [address] Instructions for Home/Discharge Instructions 07/28/22 1402 MR#: [id number] Acct: [id number] Name: ROBERT BRUCE Rep #:[id number] : 1960 62 From: Sanjiv Ahumada DO [...] mg PO BID Referrals / Follow Up: [facility] [Provider Group] - Within 1 Month Milind Lamb MD [Primary Care Provider] - Within 2 Weeks Disposition Disposition (needs filled in before D/C Order can be placed): Home, Self Care 07/28/22 1409<Electronically signed by Sanjiv Ahumada DO>Sanjiv Ahumada DO CC: Dr. Milind Lamb MD ~ Signed [facility] Work Phone: Discharge summary Author Dr. Ahumada [facility] July 28, 2022 2:11pm Note Date/Time July 28, 2022 2 :11pm [facility] Medical Records Department [address] [place] [address] Discharge Summary 07/28/22 140 MR#: [id number] Acct: [id number] Name: MILTON العراقيRA Winkler Rep #:[id number] : 1960 62 From: Sanjiv Ahumada DO PCP: Dr. Milind Lamb MD Status:ADM I N Location: [facility] [id number] Providers Date of Admission: 07/26/22 Date of [...] Freq: Status: Active Protocol: Document 07/26/22 15:35 [facility] (Rec: 07/26/22 15:35 [facility] [id number]) Nutrition Malnutrition Evidence of Malnutrition Exists Yes [...] mg PO BID Referrals / Follow Up: [facility] [Provider Group] - Within 1 Month Milind Lamb MD [Primary Care Provider] - Within 2 Weeks Disposition Disposition (needs filled in before D/C Order can be placed): Home, Self Care Charges/Coding Visit Charges Inpatient E&M: 99235 Disch Hosp >30min 07/28/22 1411 <Electronically signed by Sanjiv Ahumada DO> Cosigner Signature (if applicable): CC: Dr. Sanjiv Ahumada DO; Dr. Milind Lamb MD~ Signed [facility] Work Phone: Evaluation note* Diagnosis Onset Date Resolution Status Acute dehydration acute Acute kidney injury acute DKA (diabetic ketoacidosis) acute History of alcoholism acute Pancreatitis acute [facility] Work Phone: Evaluation note* Diagnosis Onset Date Resolution Status DKA (diabetic ketoacidosis) acute History of alcoholism acute Acute dehydration resolved Acute kidney injury resolved Pancreatitis resolved Diabetes acute Hypokalemia acute [facility] Work Phone: Evaluation note* Diagnosis Onset Date Resolution Status Diabetes acute Hypokalemia acute Diabetic keto-acidosis acute Elevated serum creatinine ac [place] Sinus tachycardia acute Tachypnea acute [facility] Work Phone: Evaluation note* Diagnosis Onset Date Resolution Status Diabetes acute Hypokalemia acute Diabetic keto-acidosis acute Elevated serum creatinine ac [place] Hypokalemia acute Sinus tachycardia acute Tachypnea acute BRITTNI (acute kidney injury) re solved [facility] Work Phone: Evaluation noteNo assessment information available [facility] Work Phone: Evaluation note* Diagnosis Onset Date Resolution Status Back pain acute Diabetic ketoacidosis associ ated with type 1 diabetes mellitus acute Elevated serum creatinine ac [place] Pyuria acute Sinus tachycardia by electrocardiogram acute [facility] Work Phone: Evaluation note* Diagnosis Onset Date Resolution Status Diabetic keto-acidosis resol yin Elevated serum creatinine re solved Sinus tachycardia by electrocardiogram resolved [facility] Work Phone: Hospital Discharge instructions Additional [...] Please return to emergency room for repeat examination.[facility] Work Phone: Reason for referral (narrative)No reason for referral [facility] Work Phone: Summary Purpose Family History No Family History Records Found Relationship Condition Age at Onset Recorded Date/T afia mother Diabetes mellitus Unknown father Diabetes mellitus Unknown Malignant neoplasm Unknown Advance Directives No Advanced Directives Records Found Advance Directive Response Recorded Date/ Time Living Will No March 03 8:17pm Power of Computer Technical Support Specialist No March 03, 2 022 8:17pm Advance Directive Response Recorded Date/ Time Living Will No May 03 6:14am Power of Computer Technical Support Specialist No May 03, 2022 6:14am Advance Directive Response Recorded Date/ Time Living Will No July 26 11:33am Power of Computer Technical Support Specialist No July 26, 2022 11:33am Advance Directive Response Recorded Date/ Time Living Will No July 26 2:20pm Power of Computer Technical Support Specialist No July 26, 2022 2:20pm Advance Directive Response Recorded Date/ Time Living Will No July 01, 2 023 12:05am Power of Computer Technical Support Specialist No July 01, 2023 12:05am Advance Directive Response Recorded Date/ Time Living Will No July 02, 2 023 8:26am Power of Computer Technical Support Specialist No July 02, 2023 8:26am Advance Directive Response Recorded Date/ Time Living Will No July 02, 2 023 7:15pm Power of Computer Technical Support Specialist No July 02, 2023 7:15pm Advance Directive Response Recorded Date/ Time Living Will No July 29 1:01pm Power of Computer Technical Support Specialist No July 29, 2023 1:01pm Chief Complaint [...] Admit Date PE NON DOT DRUG SCREEN/ [facility] July 16, 2024 11:46am Additional Source Comments INFORMATION SOURCE (unrecogn ized section and content) DATE CREATED AUTHOR 07/29/[address] [facility] ([place]) DATE CREATED AUTHOR AUTHOR'S ORGANIZ ATION 10/24/2024 [facility] Hospital Care Teams (unrecognized sec [...] Active Dr. Torsten Sutton DO Admit Provi aleyda, Attending Provider, Other Provider Active Team Status: Active Member Role Status Dates Dr. Milind Lamb MD Primary Care Provider Active Dr. Setven Voss MD Emergency Provider Active Dr. Torsten [...] Voss MD Emergency Provider Active Dr. Torsten Sutotn DO Admit Provider, Other Pro vider Active [...] BE BASED ON THE PRIMARY CLINICAL RECORDS. [employer] provides no warranty or guarantee of the accuracy or completeness of information in this document.
[2024-12-09 04:16] LABS: Bedside Glucose 88 mg/dL (74-106)
[2024-12-09 05:13] LABS: Absolute Lymphocyte Count 2.57 X10^3/uL (0.83-4.51); Absolute Neutrophil Count 3.9 X10^3/uL (2.0-7.7); Basophil# 0.04 X10^3/uL; Basophil% 0.5 % (0-1); Eosinophils% 2.7 % (0-5); Hematocrit 28.5 % (37-47); Hemoglobin 9.9 g/dL (12.0-15.0); Lymphocyte # 2.57 X10^3/ul (0.83-4.51); Lymphocyte % 34.5 % (19-41); Mean Corp Hgb Conc 34.7 g/dL (32-36); Mean Corpuscular Hgb 29.7 pg (27.0-32.0); Mean Corpuscular Volume 85.6 fL (81-99); Monocyte# 0.72 X10^3/uL; Monocyte% 9.7 % (0-10); NRBC Flagged by Analyzer 0 % (0-5); Neutrophil # 3.91 X10^3/uL (2.7-7.7); Neutrophil % 52.3 % (47-70); Platelet Count 198 K/mm3 (150-450); RBC Distribution Width CV 12.5 % (11.6-14.6); RBC Distribution Width SD 38.5 fl (35.1-43.9); Red Blood Count 3.33 M/mm3 (4.2-5.4); White Blood Count 7.5 K/mm3 (4.4-11.0)
[2024-12-09 05:51] LABS: ALB/GLOB Ratio 1.4 RATIO (0.9-2.4); AST(SGOT) 23 U/L (<=31); Alanine Aminotransfer ALT/SGPT 12 U/L (<=34); Albumin, Serum 3.8 g/dL (3.4-4.8); Alkaline Phosphatase 87 U/L (35-104); Anion Gap 14 (5-15); BUN 19 mg/dL (4-19); BUN/Creat Ratio 18.6 RATIO (10-20); Calcium,Total 9.2 mg/dL (7.6-11.0); Carbon Dioxide 17.1 mmol/L (21.0-32.0); Chloride 103 mmol/L (98-108); Creatinine, Serum 1.01 mg/dL (0.70-1.20); EST Glomerular Filtration Rate 63 (>60); Estimated Creatinine Clearance 47.77 ml/min (50-250); Globulin 2.8 g/dL (2.2-4.2); Glucose 93 mg/dL (70-99); Potassium 4.6 mmol/L (3.3-5.1); Protein, Total 6.6 g/dL (5.9-8.4); Sodium Level 134 mmol/L (133-145); Total Bilirubin 0.22 mg/dL (0.00-1.30)
[2024-12-09 05:54] LABS: Hemoglobin A1c 12.8 % (<=5.6)
[2024-12-09 08:47] LABS: Bedside Glucose 125 mg/dL (74-106)
[2024-12-09 08:47] LABS: Bedside Glucose 104 mg/dL (74-106)
[2024-12-09 08:47] LABS: Bedside Glucose 98 mg/dL (74-106)
[2024-12-09 08:47] LABS: Bedside Glucose 102 mg/dL (74-106)
[2024-12-09 08:47] LABS: Bedside Glucose 103 mg/dL (74-106)
[2024-12-09 08:47] LABS: Bedside Glucose 113 mg/dL (74-106)
[2024-12-09 09:02] LABS: Anion Gap 14 (5-15); BUN 17 mg/dL (4-19); BUN/Creat Ratio 18.1 RATIO (10-20); Calcium,Total 9.1 mg/dL (7.6-11.0); Carbon Dioxide 17.2 mmol/L (21.0-32.0); Chloride 104 mmol/L (98-108); Creatinine, Serum 0.94 mg/dL (0.70-1.20); EST Glomerular Filtration Rate 69 (>60); Estimated Creatinine Clearance 51.33 ml/min (50-250); Glucose 123 mg/dL (70-99); Potassium 3.8 mmol/L (3.3-5.1); Sodium Level 135 mmol/L (133-145)
--- NOTE | 2024-12-09 09:06 | PN.HOSP_ITS ---
Reason for Visit Reason for Visit: Diagnoses Type 2 diabetes mellitus with ketoacidosis without coma (12/09/24) Subjective Subjective Patient is a 64-year-old lady with history of diabetes mellitus type 2 currently on insulin who presented with nausea vomiting and diarrhea and progressive generalized weakness. Her assessment on admission was consistent with diabetic ketoacidosis admitted to the intensive care unit for further management Objective Data Objective Data Vital Signs: Vital Signs Temp Pulse Resp BP Pulse Ox O2 Del Method 98.1 F 86 17 116/58 L 98 Room Air 12/09/24 04:00 12/09/24 06:00 12/09/24 06:00 12/09/24 06:00 12/09/24 06:00 12/09/24 06:00 Oxygen Delivery Method Room Air Weight: 58 kg Body Mass Index (BMI) 22.6 Intake & Output: Intake and Output for Last 24 Hours 12/07/24 12/08/24 12/09/24 23:59 23:59 23:59 Intake Total 1307 / 1307 1338.54 / 1338.54 Output Total 0 / 0 Balance 1307 / 1307 1338.54 / 1338.54 Lab / Micro Data 12/09/24 05:00 12/09/24 08:20 Labs: Laboratory Results - last 24 hr 12/08/24 20:00: WBC 7.9, RBC 3.72 L, Hgb 11.0 L, Hct 32.5 L, MCV 87.4, MCH 29.6, MCHC 33.8, RDW Std Deviation 39.8, RDW Coeff of Nellie 12.5, Plt Count 230, MPV 12.8 H, Immature Gran % (Auto) 0.300, Neut % (Auto) 67.7, Lymph % (Auto) 22.8, [place] % (Auto) 7.7, Eos % (Auto) 0.9, Baso % (Auto) 0.6, Absolute Neuts (auto) 5.4, Absolute Lymphs (auto) 1.80, Nucleated RBC % 0, Sodium 128 L, Potassium 4.9, Chloride 90 L, Carbon Dioxide 12.2 L, Anion Gap 26 H, BUN 27 H, Creatinine 1.36 H, Estim Creat Clear Calc 35.48 L, Est GFR (MDRD) Non-Af 44 L, BUN/Creatinine Ratio 19.5, Glucose 592 H*, Calcium 9.7, Phosphorus 4.7 H, Magnesium 2.2, Total Bilirubin 0.25, AST 13, ALT 14, Alkaline Phosphatase 108 H, Total Protein 7.5, Albumin 4.3, Globulin 3.2, Albumin/Globulin Ratio 1.4, Lipase 49, b-Hydroxybutyric mmol/L 7.9 H, POC Glucose > 500 H* 12/08/24 20:49: POC Glucose 491 H* 12/08/24 22:11: POC Glucose 380 H 12/08/24 22:25: Urine Color Yellow, Urine Clarity Clear, Urine pH 6.0, Ur Specific [place] 1.015, Urine Protein 30 H, Urine Glucose (UA) 1000 H, Urine Ketones 150 A*, Urine Occult Blood Negative, Urine Nitrite Negative, Urine Bilirubin Negative, Urine Urobilinogen Normal, Ur Leukocyte Esterase Negative, Urine RBC 0 SEEN, Urine WBC 0 SEEN, Ur Squamous Epith Cells 0 SEEN, Urine Bacteria 0 SEEN, Urine Mucus 0 SEEN 12/08/24 23:30: POC Glucose 231 H 12/09/24 00:35: POC Glucose 156 H 12/09/24 01:18: POC Glucose 125 H 12/09/24 01:25: Sodium 134, Potassium 3.8, Chloride 101, Carbon Dioxide 16.8 L, Anion Gap 17 H, BUN 21 H, Creatinine 1.04, Estim Creat Clear Calc 46.40 L, Est GFR (MDRD) Non-Af 61, BUN/Creatinine Ratio 20.6 H, Glucose 139 H, Calcium 9.5, Procalcitonin 0.08 12/09/24 02:01: POC Glucose 104 12/09/24 03:01: POC Glucose 98 12/09/24 03:56: POC Glucose 88 12/09/24 04:59: POC Glucose 103 12/09/24 05:00: WBC 7.5, RBC 3.33 L, Hgb 9.9 L, Hct 28.5 L, MCV 85.6, MCH 29.7, MCHC 34.7, RDW Std Deviation 38.5, RDW Coeff of Nellie 12.5, Plt Count 198, MPV 12.0, Immature Gran % (Auto) 0.300, Neut % (Auto) 52.3, Lymph % (Auto) 34.5, [place] % (Auto) 9.7, Eos % (Auto) 2.7, Baso % (Auto) 0.5, Absolute Neuts (auto) 3.9, Absolute Lymphs (auto) 2.57, Nucleated RBC % 0, Sodium 134, Potassium 4.6, Chloride 103, Carbon Dioxide 17.1 L, Anion Gap 14, BUN 19, Creatinine 1.01, E stim Creat Clear Calc 47.77 L, Est GFR (MDRD) Non-Af 63, BUN/Creatinine Ratio 18.6, Glucose 93, Hemoglobin A1c 12.8 H, Calcium 9.2, Total Bilirubin 0.22, AST 23, ALT 12, Alkaline Phosphatase 87, Total Protein 6.6, Albumin 3.8, Globulin 2.8, Albumin/Globulin Ratio 1.4 12/09/24 06:16: POC Glucose 102 12/09/24 07:05: POC Glucose 113 H 12/09/24 08:20: Sodium 135, Potassium 3.8, Chloride 104, Carbon Dioxide 17.2 L, Anion Gap 14, BUN 17, Creatinine 0.94, Estim Creat Clear Calc 51.33, Est GFR (MDRD) Non-Af 69, BUN/Creatinine Ratio 18.1, Glucose 123 H, Calcium 9.1 ABG Data ABG results: ABG 12/08/24 20:44 Specimen Type ILZY Sample Site Not entered VBG pH 7.21 L VBG pO2 31 VBG HCO3 13 L VBG Total CO2 14 L VBG O2 Sat (Calc) 47 L VBG Base Excess -15 L POC Mix VBG pCO2 Pt Tmp 31.1 L O2 Delivery Device Not entered Radiography Diagnostic Testing: Radiology Impression Abdomen/Pelvis CT 12/08/24 20:31 IMPRESSION: 1. No acute intra-abdominal abnormality. The appendix is unremarkable. 2. Heterogeneous mass at the lower pole of the left kidney measuring up to 6.6 cm, featuring a segmental region of hypodensity and a possible punctate calcification. Findings are highly worrisome for renal cell carcinoma, though other benign and malignant etiologies such as oncocytoma are also possible. Recommend Urology referral. 3. Cholelithiasis. Yellow Alert: Left kidney mass The critical information above was relayed directly by me by telephone to Miki Sen on 12/08/2024 at 11:16 pm with readback verification. Reading Location: [facility] Physical Exam Narrative GENERAL: cooperative but appears tired HEENT: Atraumatic; normocephalic EYES; Anicteric, Normal Conjunctiva NECK; supple, normal thyroid, RESPIRATORY: Diminished to auscultation CARDIOVASCULAR: Regular S1 S2, GI: soft, normoactive bowel sounds, : No Renal angle tenderness; EXTREMITIES: No edema, no clubbing, MUSCULOSKELETAL: no muscle wasting NEURO: Awake; no lateralizing signs. SKIN: No Rash PSYCH; Flat affect Assessment & Plan Assessment/Plan (1) Diabetic ketoacidosis: PLAN: Plan Patient is a 64-year-old lady with history of diabetes mellitus type 2 currently on insulin who presented with nausea vomiting and diarrhea and progressive generalized weakness. Her assessment on admission was consistent with diabetic ketoacidosis admitted to the intensive care unit for further management 1. Diabetic ketoacidosis ? Patient was admitted to the intensive care unit treatment initiated with IV fluid resuscitation per protocol systemic insulin (insulin drip) and monitoring of electrolyte with correction of electrolyte abnormalities. Patient response to therapy being monitored with serial BMP?every 4, and close monitoring of patient anion gap 2. Acute gastroenteritis ? Suspected to be viral gastroenteritis. Patient treated symptomatically 3. Diabetes mellitus type 2 ? Uncontrolled with hemoglobin A1c of 12 patient presented with DKA management as discussed above. Plan is to resume patient home insulin regimen once DKA resolves 4. Acute renal insufficiency ? Secondary to severe volume depletion from DKA patient managed with IV fluids 5. Dyslipidemia ?Patient is on statin therapy?rosuvastatin, continued at home dose 6. Depression ? Patient is on sertraline continue 7. Essential hypertension ? Patient is on lisinopril with continue 8. Anemia ? Secondary to chronic disorder monitoring H&H and transfuse if patient becomes symptomatic or hemoglobin falls below 7 9 DVT prophylaxis ? Subcu Lovenox Time spent in the patient's overall evaluation,decision-making process, review of diagnostic data, adjustment of management, discussion with other providers, nursing nursing and ancillary staff involved in patient's care documentation, 52 Minutes Charges/Coding Visit Charges Inpatient E&M: 70652 [facility] Hosp L3
[2024-12-09 09:12] LABS: Bedside Glucose 116 mg/dL (74-106)
[2024-12-09] MEDS: Sertraline 50 MG Tablet PO (11:16)
[2024-12-09] MEDS: Lisinopril 5 MG Tablet PO (11:16)
[2024-12-09] MEDS: Enoxaparin 40 MG/0.4 ML Syringe SC (11:16)
[2024-12-09] MEDS: Insulin Lispro 100 UNIT/ML INSULN.PEN 6 UNIT SC ×2 (11:20→16:32)
[2024-12-09] MEDS: Insulin Glargine-YFGN 100 UNIT/ML Pen 20 UNIT SC ×2 (11:20→22:30)
[2024-12-09 11:41] LABS: Bedside Glucose 140 mg/dL (74-106)
--- NOTE | 2024-12-09 11:53 | CASEMGMT ---
JEFFRY TRINIDAD Assessment Face to Face with patient for initial transition planning/care coordination assessment. JEFFRY TRINIDAD introduced self and role at [facility], pt voices understanding. Pt is A&Ox4 and is resting comfortably in bed and is calm. Care providers, pharmacy, and demographics verified. Admitting dx:LINDA MITCHELL Strata: 2 PCP: Milind Lamb Specialists: Pt reports that she has a history with Dr. Mcclendon (Endocrinology) but has not seen the specialist in some time. Pt was encouraged to call the office [facility] for a f/u appt regarding her DM. Contact information provided. Preferred Pharmacy: [facility] Insurance: [employer] Prescription Benefit: Yes LNOK: Joaquim Gomez (Son) Living Arrangements: Pt lives with her son in a single story home with a basement with handrails and 1 step to enter. Pt reports that her laundry is downstairs and that her son helps with this at time ADLs/IADLs: Reports ind. Son helps with laundry. 6-Click score is 24 Transportation: Pt states that she and her son both are without a vehicle currently. Pt states that her neighbor and her son's friend have been providing transportation for the pt. SW has provided support and resources. Pt states that either her neighbor or her son's friend can bring the pt home at the time of DC. DME: Pt states that that she believes that she accidently threw her BGM away as she cannot find her BGM anywhere. Pt states that her and her son have searched her home but cannot find it. Pt is requesting a new Rx for a BGM and supplies. Pt states that her BGM was 12 years old. CM to follow. Pt states that she has enough pen needles and has been taking her Metformin as prescribed. Pt states that she also has a BP Machine. HHC/SNF: Denies skilled HH history. Denies SNF history or needs. Pt has a history with [facility] Pt?s goal: Home Plan: Home with pt's son and Rx for a new glucometer and supplies. Pt to follow up with endocrinology as an OP. 6-Click is 24. Pt states that she feels safe with this plan and denies further needs at this time. Hector Engel RN, CM
--- NOTE | 2024-12-09 12:00 | CASEMGMT ---
Social Work SW met with pt and completed assessment for Social Determinants of Health. See assessment for details of financial and community concerns. Pt is connected with several community resources at this time including [employer], [employer], S, and area food [employer]. SW made a referral to the [employer] Lab Technician. SW made pt aware of insurance's transportation benefit and provided written information on this. SW will remain available if other needs arise. RENETTA Eubanks
--- NOTE | 2024-12-09 12:58 | CASEMGMT ---
Rx for BGM and testing supplies signed by Dr. Mendosa. Rx provided to the pt at this time. Pt states appreciation and denies further needs at this time.
[2024-12-09] MEDS: Acetaminophen 325 MG Tablet 650 MG PO ×2 (13:26→22:09)
[2024-12-09] MEDS: Insulin Lispro 100 UNIT/ML INSULN.PEN SC ×2 (16:32→22:30)
[2024-12-09 16:54] LABS: Bedside Glucose 253 mg/dL (74-106)
[2024-12-09] MEDS: Atorvastatin Calcium 10 MG Tablet PO (22:16)
[2024-12-09] MEDS: MELATONIN 3 MG TABLET PO (22:39)
[2024-12-09 22:58] LABS: Bedside Glucose 207 mg/dL (74-106)
[2024-12-10 03:32] VITALS: BMI 22.6
[2024-12-10 04:29] VITALS: BP 142/65; PULSE 87; RESP 16; TEMP 37.1; O2SAT 100
[2024-12-10 05:53] LABS: Hematocrit 29.9 % (37-47); Hemoglobin 10.5 g/dL (12.0-15.0); Mean Corp Hgb Conc 35.1 g/dL (32-36); Mean Corpuscular Hgb 30.1 pg (27.0-32.0); Mean Corpuscular Volume 85.7 fL (81-99); Platelet Count 175 K/mm3 (150-450); RBC Distribution Width CV 12.7 % (11.6-14.6); RBC Distribution Width SD 39.3 fl (35.1-43.9); Red Blood Count 3.49 M/mm3 (4.2-5.4); White Blood Count 4.1 K/mm3 (4.4-11.0)
[2024-12-10 06:18] LABS: Anion Gap 10 (5-15); BUN 11 mg/dL (4-19); BUN/Creat Ratio 14.1 RATIO (10-20); Calcium,Total 9.5 mg/dL (7.6-11.0); Carbon Dioxide 21.1 mmol/L (21.0-32.0); Chloride 106 mmol/L (98-108); Creatinine, Serum 0.76 mg/dL (0.70-1.20); EST Glomerular Filtration Rate 89 (>60); Estimated Creatinine Clearance 63.49 ml/min (50-250); Glucose 118 mg/dL (70-99); Magnesium 1.9 mg/dL (1.5-2.2); Phosphorus 3.1 mg/dL (2.7-4.5); Potassium 3.6 mmol/L (3.3-5.1); Sodium Level 137 mmol/L (133-145)
[2024-12-10 06:38] LABS: Bedside Glucose 115 mg/dL (74-106)
[2024-12-10] MEDS: Acetaminophen 325 MG Tablet 650 MG PO (06:49)
[2024-12-10] MEDS: Insulin Lispro 100 UNIT/ML INSULN.PEN 6 UNIT SC (08:30)
[2024-12-10] MEDS: Lisinopril 5 MG Tablet PO (08:38)
[2024-12-10] MEDS: Sertraline 50 MG Tablet PO (08:38)
[2024-12-10] MEDS: Enoxaparin 40 MG/0.4 ML Syringe SC (08:38)
--- NOTE | 2024-12-10 08:58 | PCM.DC.SUM ---
Providers Date of Admission: 12/09/24 Date of Discharge: 12/10/24 Primary Care Physician: Dr. Milind Lamb MD Reason For Visit: DKA Diagnosis Discharge Diagnosis (1) Diabetic ketoacidosis: Status: Acute Code(s): E11.10 - Type 2 diabetes mellitus with ketoacidosis without coma Plan Patient is a 64-year-old lady with history of diabetes mellitus type 2 currently on insulin who presented with nausea vomiting and diarrhea and progressive generalized weakness. Her assessment on admission was consistent with diabetic ketoacidosis admitted to the intensive care unit for further management 1. Diabetic ketoacidosis ? Patient was admitted to the intensive care unit treatment initiated with IV fluid resuscitation per protocol systemic insulin (insulin drip) and monitoring of electrolyte with correction of electrolyte abnormalities. Patient response to therapy being monitored with serial BMP?every 4, and close monitoring of patient anion gap ? 12/10/2024; patient DKA did resolve started on her home insulin regimen which she tolerated well. Adjusted patient Premeal insulin regimen from 16 before meals to 10 units before meals. Maintained patient long-acting insulin dose 2. Acute gastroenteritis ? Suspected to be viral gastroenteritis. Patient treated symptomatically 3. Diabetes mellitus type 2 ? Uncontrolled with hemoglobin A1c of 12 patient presented with DKA management as discussed above. Plan is to resume patient home insulin regimen once DKA resolves 4. Acute renal insufficiency ? Secondary to severe volume depletion from DKA patient managed with IV fluids 5. Dyslipidemia ?Patient is on statin therapy?rosuvastatin, continued at home dose 6. Depression ? Patient is on sertraline continue 7. Essential hypertension ? Patient is on lisinopril with continue 8. Anemia ? Secondary to chronic disorder monitoring H&H and transfuse if patient becomes symptomatic or hemoglobin falls below 7 9 DVT prophylaxis ? Subcu Lovenox 10. Kidney mass ? CT of the abdomen and pelvis obtained on admission did showHeterogeneous mass at the lower pole of the left kidney measuring up to 6.6 cm, featuring a segmental region of hypodensity and a possible punctate calcification. Findings are highly worrisome for renal cell carcinoma, though other benign and malignant etiologies such as oncocytoma are also possible. Follow-up appointment was set up with urology as outpatient Time spent in the patient's overall evaluation,decision-making process, review of diagnostic data, adjustment of management, discussion with other providers, nursing nursing and ancillary staff involved in patient's care documentation, 35 Minutes Medications at Discharge Home Medications flash glucose sensor (FreeStyle Moncho 2 Sensor kit) #2 ea 04/11/22 blood-glucose meter (FreeStyle Lite Meter kit) #1 ea 07/28/22 lancets 28 gauge (FreeStyle Lancets) #100 ea 07/28/22 pen needle, diabetic 32 gauge x 5/32 (BD Ultra-Fine Josefina Pen Needle) #50 ea 07/28/22 lancets 28 gauge (FreeStyle Lancets) #100 ea 07/06/23 sertraline 50 mg tablet 50 mg PO DAILY depression 05/02/24 blood sugar diagnostic (FreeStyle Lite Strips) #100 ea 05/04/24 lisinopril 5 mg tablet 5 mg PO DAILY #30 tabs 05/04/24 metformin 1,000 mg tablet 1,000 mg PO DAILY #30 tabs 05/04/24 insulin glargine U-300 conc 300 unit/mL (1.5 mL) subcutaneous pen (Toujeo SoloStar U-300 Insulin) 40 unit subcut QHS 12/08/24 rosuvastatin 5 mg tablet 5 mg PO DAILY 12/08/24 insulin lispro 100 unit/mL subcutaneous pen (Humalog KwikPen (U-100) Insulin) 10 unit (0.1 mL) subcut TIDAC diabetes #15 mL 12/10/24 Physical Exam Narrative GENERAL: cooperative HEENT: Atraumatic; normocephalic EYES; Anicteric, Normal Conjunctiva NECK; supple, normal thyroid, RESPIRATORY: Diminished to auscultation CARDIOVASCULAR: Regular S1 S2, GI: soft, normoactive bowel sounds, : No Renal angle tenderness; EXTREMITIES: No edema, no clubbing, MUSCULOSKELETAL: no muscle wasting NEURO: Awake; no lateralizing signs. SKIN: No Rash PSYCH; Flat affect Weight / BMI Weight Weight: 58 kg Body Mass Index (BMI) 22.6 ABG / Lab / Microbiology Data 12/10/24 05:26 12/10/24 05:26 Laboratory: Laboratory Results - last 24 hr 12/09/24 08:20: Sodium 135, Potassium 3.8, Chloride 104, Carbon Dioxide 17.2 L, Anion Gap 14, BUN 17, Creatinine 0.94, Estim Creat Clear Calc 51.33, Est GFR (MDRD) Non-Af 69, BUN/Creatinine Ratio 18.1, Glucose 123 H, Calcium 9.1 12/09/24 08:24: POC Glucose 116 H 12/09/24 11:19: POC Glucose 140 H 12/09/24 16:30: POC Glucose 253 H 12/09/24 22:29: POC Glucose 207 H 12/10/24 05:26: WBC 4.1 L, RBC 3.49 L, Hgb 10.5 L, Hct 29.9 L, MCV 85.7, MCH 30.1, MCHC 35.1, RDW Std Deviation 39.3, RDW Coeff of Nellie 12.7, Plt Count 175, MPV 12.0, Sodium 137, Potassium 3.6, Chloride 106, Carbon Dioxide 21.1, Anion Gap 10, BUN 11, Creatinine 0.76, Estim Creat Clear Calc 63.49, Est GFR (MDRD) Non-Af 89, BUN/Creatinine Ratio 14.1, Glucose 118 H, Calcium 9.5, Phosphorus 3.1, Magnesium 1.9 12/10/24 06:20: POC Glucose 115 H D/C Instructions Discharge Diet: 1800 Calorie Control Diet Discharge Activity: Return to Normal Activity Call your doctor if you observe: Fever of 101 or Higher, Shortness of breath, Fainting spells and Chest pain DC O2, CPAP, BIPAP Needs Home O2 Discharge instructions: No Meaningful Use Info Meaningful Use Meaningful Use Diagnoses (Choose all that apply): None applicable Ischemic Stroke Statin Dosing Therapy Reference: STATIN DOSE THERAPY REFERENCE: * Patients > 75 years receive moderate or high dose statin therapy. * Patients 75 years or YOUNGER should receive HIGH intensity statin dose unless contraindicated. You will be required to document reason for non-treatment if statin daily dose does not meet guidelines. HIGH DOSE STATIN THERAPY DAILY Atorvastatin > than or = to 40 mg Rosuvastatin > than or = to 20 mg Amlodipine + Atorvastatin > than or = to 2.5/40 mg Ezetimibe + Simvastatin 10/80 mg Simvastatin 80mg Discharge Plan Admission Admit Date/Time: 12/09/24 00:10 Attending Provider: Ciro Mendosa Primary Care Provider: Milind Lamb Consulting Providers: Zelda Ibarra Discharge Orders/Prescriptions Prescriptions: Continued (DME) FreeStyle Moncho 2 Sensor Kit See Rx Instructions .Route Qty: 2 5RF Rx Instructions: As directed (DME) lancets [FreeStyle Lancets] 28 gauge misc See Rx Instructions .Route Qty: 100 0RF Rx Instructions: As directed (DME) pen needle, diabetic [BD Ultra-Fine Josefian Pen Needle] 32 gauge x 5/32 needle See Rx Instructions .ROUTE .MEDSUPPLY Qty: 50 5RF Rx Instructions: daily (DME) blood-glucose meter [FreeStyle Lite Meter] Kit See Rx Instructions .Route Qty: 1 0RF Rx Instructions: As directed (DME) lancets [FreeStyle Lancets] 28 gauge misc See Rx Instructions .Route Qty: 100 0RF Rx Instructions: As directed sertraline 50 mg tablet 50 mg PO DAILY lisinopril 5 mg Tablet 5 mg PO DAILY Qty: 30 2RF metformin 1,000 mg tablet 1,000 mg PO DAILY Qty: 30 2RF (DME) FreeStyle Lite Strips Strip See Rx Instructions .Route Qty: 100 2RF Rx Instructions: As directed insulin glargine U-300 conc [Toujeo SoloStar U-300 Insulin] 300 unit/mL (1.5 mL) insulin pen 40 unit subcut QHS rosuvastatin 5 mg tablet 5 mg PO DAILY Changed insulin lispro [Humalog KwikPen Insulin] 100 unit/mL Insulin Pen 10 unit subcut TIDAC Qty: 15 3RF Referrals / Follow Up: Analia Doe MD [Med Staff - Active Staff] - Within 1 Week (Renal mass) Milind Lamb MD [Primary Care Provider] - Within 1 Week Disposition Disposition (needs filled in before D/C Order can be placed): Home, Self Care Charges/Coding Visit Charges Inpatient E&M: 65620 Disch Hosp >30min
--- NOTE | 2024-12-10 10:02 | CASEMGMT ---
Addendum entered by Zach Munguia 12/10/24 10:48: 10:30 AM: JEFFRY TRINIDAD spoke w/Gene @ the call center. [facility] van transport arranged for 11:15 AM to take pt home today. RN, Jaja, and pt made aware. Original Note: JEFFRY TRINIDAD NOTE: Discharge order is in. JEFFRY TRINIDAD to room. Pt states she has not been able to reach anyone to take her home and she would like to utilize [facility] van transport. Pt verifies she has enough insulin at home and denies other discharge needs. Carlos EUCEDA RN CM
[2024-12-10] MEDS: Pantoprazole Sodium 40 MG in 0.9% Normal Saline (100mL MB+) 100 ML 330 MG IV (10:18)
[2024-12-10] MEDS: 0.9% Saline Lock 10 ML Syringe IV (10:22)
[2024-12-10 11:11] LABS: Bedside Glucose 93 mg/dL (74-106)
== END 2024-12-10 11:15 | disposition home or self-care (01) | DRG 420 ==
LOC: ED 12-09 00:19 → ICU 12-09 02:59 → MS3 12-09 15:18
PROVIDERS: Admitting Provider Family Medicine; Emergency Provider Emergency Medicine; PCP Family Medicine; Visit Provider Internal Medicine
DX: E11.10 Type 2 diabetes mellitus with ketoacidosis without coma (principal); A08.4 Viral intestinal infection, unspecified; I12.9 Hypertensive chronic kidney disease with stage 1 through stage 4 chronic kidney disease, or unspecified chronic kidney disease; E11.22 Type 2 diabetes mellitus with diabetic chronic kidney disease; D64.9 Anemia, unspecified; F32.A Depression, unspecified; E78.5 Hyperlipidemia, unspecified; Z79.4 Long term (current) use of insulin; K21.9 Gastro-esophageal reflux disease without esophagitis; F41.9 Anxiety disorder, unspecified; N18.2 Chronic kidney disease, stage 2 (mild); N28.89 Other specified disorders of kidney and ureter; Z79.84 Long term (current) use of oral hypoglycemic drugs; Z79.899 Other long term (current) drug therapy; Z87.891 Personal history of nicotine dependence; Z86.16 Personal history of COVID-19
CPT/HCPCS: 36415; 74177; 80048; 80053; 81001; 82010; 82803; 82962; 83036; 83690; 83735; 84100; 84145; 85025; 85027; 94668; 97802; 99285; Q9967; A4216

== ENCOUNTER → 2025-01-19 | Outpatient (CLI) | payer MEDICAID, SELFPAY ==
[2025-01-19 12:30] LABS: Creatinine, Urine (random) 151.00 mg/dL (28.00-217.00); Microalbumin,Random Urine 19.0 mg/L (<20 mg/L)
== END | disposition home or self-care (01) ==
LOC: POLAB3 11:53
PROVIDERS: PCP Family Medicine; Visit Provider Internal Medicine Nephrology
DX: E11.21 Type 2 diabetes mellitus with diabetic nephropathy (principal)
CPT/HCPCS: 82043; 82570

== ENCOUNTER 2025-02-25 21:00 | Emergency (ER) | payer MEDICAID, SELFPAY ==
[2025-02-25 21:04] VITALS: BP 106/74; PULSE 96; RESP 18; TEMP 36.1; O2SAT 100; BMI 24.4
[2025-02-25 21:54] LABS: Hematocrit 28.0 % (37-47); Hemoglobin 9.5 g/dL (12.0-15.0); Immature Granulocytes Count 0.020 X10^3/uL (0.0-0.0); Mean Corp Hgb Conc 33.9 g/dL (32-36); Mean Corpuscular Volume 88.3 fL (81-99); Mean Platelet Vol. 11.9 fl (6.2-12.0); NRBC Flagged by Analyzer 0 % (0-5); Platelet Count 234 K/mm3 (150-450); RBC Distribution Width CV 13.6 % (11.6-14.6); RBC Distribution Width SD 44.0 fl (35.1-43.9); Red Blood Count 3.17 M/mm3 (4.2-5.4); White Blood Count 6.9 K/mm3 (4.4-11.0)
[2025-02-25 22:06] LABS: Mucous, Urine 0 SEEN /hpf (<or=2+)
[2025-02-25 22:08] LABS: Glucose, Dipstick Normal (Normal); Ketone-Dipstick 5 mg/dl (Negative); Leukocyte Esterase-Dipstick 100 /ul (Negative); Nitrite-Dipstick Negative (Negative); Occult Blood-Urine Negative /ul (Negative); Protein-Dipstick 30 mg/dl (Negative); Specific Gravity, Urine 1.010 (1.002-1.030); Urine Bilirubin Dipstick Negative (Negative)
--- NOTE | 2025-02-25 22:17 | CT_ITS ---
PROCEDURE: CT CHEST, ABD, PEL W/CONTRAST 02/25/2025 REASON FOR EXAM: RIGHT FLANK PAIN TECHNIQUE: Chest, abdomen and pelvis CT with intravenous contrast. Coronal and Sagittal reconstruction series were provided. One or more dose reduction techniques were used (e.g., Automated exposure control, adjustment of the mA and/or kV according to patient size, use of iterative reconstruction technique. PATIENT PREPARATION: Per protocol CONTRAST: 100 cc of Isovue 370 intravenous contrast. COMPARISON: CT abdomen and pelvis 12/08/2024 FINDINGS: CT CHEST: Hardware: None. Lymph nodes: No enlarged mediastinal, hilar, or axillary lymph nodes. Heart and Vasculature: Not enlarged. No pericardial effusion. Moderate coronary artery atherosclerotic calcifications. Atherosclerotic calcifications of the thoracic aorta. Pulmonary arteries are unremarkable. Lungs and Airways: No consolidation or discrete pulmonary mass. Airways are patent. Pleura: No pleural effusion or pneumothorax. Bones: Degenerative changes of the thoracic spine. CT ABDOMEN/PELVIS: Liver: Normal size. No mass. Gallbladder: Surgically absent. No biliary ductal dilatation. Spleen: Normal size. Pancreas: Normal size without evidence of mass surrounding inflammation or ductal dilation. Adrenals: Unremarkable Kidneys: Redemonstrated large heterogenous enhancing left renal mass with central necrosis measuring 6.5 x 7.1 x 6.9 cm, findings are highly concerning for renal cell carcinoma. Right kidney unremarkable. No calculi or hydronephrosis bilaterally. Bladder: Unremarkable. Reproductive Organs: Retroverted uterus. Adnexal regions are unremarkable. Bowel: Moderate colonic stool burden suggesting constipation. No obstruction. Appendix: Normal. Lymph nodes: Unremarkable. Vasculature: The abdominal aorta and IVC are normal. Peritoneum / Retroperitoneum: No free fluid or air. Bones: No destructive osseous lesions. No acute fractures. CT/CT Chest, Abd, Pel w/Contrast IMPRESSION: 1. Redemonstrated 6.5 x 7.1 x 6.9 cm left renal mass highly concerning for yusra l cell carcinoma. 2. No evidence of metastatic disease in the chest, abdomen or pelvis. 3. Moderate colonic stool burden suggesting constipation. 4. No acute findings as imaged. Reading Location: [facility]
[2025-02-25 22:25] LABS: Color, Urine Yellow (Yellow)
[2025-02-25 22:32] LABS: AST(SGOT) 19 U/L (<=31); Alanine Aminotransfer ALT/SGPT 18 U/L (<=34); Albumin, Serum 4.4 g/dL (3.4-4.8); Alkaline Phosphatase 78 U/L (35-104); Anion Gap 14 (5-15); BUN 15 mg/dL (4-19); BUN/Creat Ratio 18.4 RATIO (10-20); Calcium,Total 9.8 mg/dL (7.6-11.0); Carbon Dioxide 23.6 mmol/L (21.0-32.0); Chloride 102 mmol/L (98-108); Estimated Creatinine Clearance 59.57 ml/min (50-250); Globulin 2.8 g/dL (2.2-4.2); Glucose 142 mg/dL (70-99); Potassium 3.8 mmol/L (3.3-5.1)
--- OUTSIDE RECORDS SUMMARY | 2025-02-25 22:34 | XMS RPT_ITS | CCD ---
Author Organization [facility] Care Team Providers Care Software Quality Manager Name Role Phone SUMMER ALVES Attending Unavailable [...] Emergency Provider Dr. Torsten Sutton Admit Provider Herman, Dr. Sarmiento Attending Provider [phone] Herman, Dr. Sarmiento Other Provider [phone] Sanjana Quigley Attending Provider Soraida, Dr. Sanjana Beltran Other Provider Adonis RICH, Dr. Vaz Primary Care Provider [phone] Adonis RICH, Dr. Vaz Referring Provider Nasir Norris Attending Provider Adonis RICH, Dr. Vaz Attending Provider Adonis RICH, Dr. Vaz Primary Care Provider Adonis RICH, Dr. Vaz Attending Provider Adonis RICH, Dr. Vaz Referring Provider Mckinley CARY, Dr. Livingston Emergency Provider Fred RICH, Dr. Zelda Cameron Admit Provider [phone] Fred RICH, Dr. Zelda Cameron Attending Provider Dr. Miki Sen DO Emergency Provider Fred RICH, Dr. Zelda Cameron Admit Provider [phone] Fred RICH, Dr. Zelda Cameron Other Provider [phone] Navya RICH, Dr. Tanner Attending Provider Unavaila angela Mendosa MD, Dr. Tanner Other Provider Unavailable MAST SALES AND SERVICE OFFICER-HYDROGEN CELL TENDER, YOLI Primary Care Physician Dr. Angella Boggs DO Attending Provider [phone] MAST SALES AND SERVICE OFFICER-HYDROGEN CELL TENDER, YOLI Attending Unavailabl e MAST SALES AND SERVICE OFFICER-HYDROGEN CELL TENDER, YOLI Primary Care Unavailabl e Milind Lamb Primary Care Unavailable Milind Lamb Referring Unavailable Milind Lamb Attending Unavailable Zelda Ibarra Consulting Unavailable Zelda Ibarra Admitting Unavailable Ciro Mendosa Attending Unavailable Milind Lamb Primary Care Unavailable Ciro Mendosa Consulting Unavailable Nasir Norris Attending Unavailable Milind Lamb Primary Care Unavailable Milind Lamb Referring Unavailable Harry Medrano Consulting Unavailable Harry Medrano Admitting Unavailable Milind Lamb Primary Care Unavailable Harry Medrano Attending Unavailable Ciro Fernández Attending Unavailable Ciro Fernández Consulting Unavailable Ciro Fernández Admitting Unavailable Lamb, Milind Primary Care Unavailable Sanjana Quigley Attending Unavailable Sanjana Quigley Consulting Unavailable White, Zelda L Attending Unavailable White, Zelda L Consulting Unavailable White, Zelda L Admitting Unavailable Lamb, Milind Primary Care Unavailable Lamb, Milind Primary Care Unavailable Lamb, Milind Referring Unavailable Lamb, Milind Attending Unavailable Lamb, Milind Primary Care Unavailable Angella Boggs Attending Unavailable Sanjana Quigley Attending Unavailable Ciro Fernández Consulting Unavailable Ciro Fernández Admitting Unavailable Lamb, Milind Primary Care Unavailable White, Zelda L Consulting Unavailable White, Zelda L Admitting Unavailable Ciro Mendosa Attending Unavailable Lamb, Milind Primary Care Unavailable Lamb, Milind Primary Care Unavailable Harry Medrano Admitting Unavailable Harry Medrano Attending Unavailable Unavailable Primary Care Provider Unavailabl e Allergies Allergy Classification Reported Allergen(s) Allergy Type Date of Onset Reaction(s) Facility (2 sources) Latex Drug Allergy 07-09-2012 Rash [facility] Medications Current Medications Medication Drug Class(es) Dates Sig (Normalized) Sig (Original) Blood-Glucose Meter (Freestyle Lite Meter) kit (11 sources) Start: 07-28-2022 Blood-Glucose Meter (Freestyle Lite Meter) kit Active 0 .Route 1 0 July 28, 2022 1:00am Type 2 diabetes mellitus Type 2 diabetes mellitus without complications blood sugar As directed Start: 07-28-2022 Blood-Glucose Meter (Freestyle Lite Meter) kit Active 0 .Route 1 July 28, 2022 1:00am As directed Start: 07-28-2022 Blood-Glucose Meter (Freestyle Lite Meter) kit Active 0 .Route 1 July 28, 2022 12:00am As directed Dexcom G7 Sensor (1 source) Start: 01-18-2025 Dexcom G7 Sens or See Instructions, Place once sensor to the back of the upper arm every 10 days. Use reader or phone jason for daily blood sugar checks. 1 month supply., # 3 EA, 11 Refill(s), Pharmacy: [facility]/pharmacy #[id number], Type 2 diabetes mellitus with hyperlipidemia, 161, cm, 01/18/25 9:58:00 EDT, Height, 60, kg, 01/18/25 9:58:00 EDT, Dosing Weight Start Date: 01/18/25 Status: Ordered Quantity: 3.0 Unit: EA Repeat number: 12 Indications: Type 2 diabetes mellitus with other specified complication; Flash Glucose Sensor (Freestyle Moncho 2 Sensor) kit (16 sources) Start: 04-11-2022 Flash Glucose Sensor (Freestyle Moncho 2 Sensor) kit Active 0 .Route 2 April 11, 2022 12:00am blood sugar As directed Start: 04-11-2022 Flash Glucose Sensor [...] MG PO Q12H May 03, 2022 12:00am 1.5 ml insulin glargine 300 unt/ml pen injector (20 sources) Insulin Analog Start: 01-18-2025 Toujeo SoloSta r Prefilled Pen 300 units/mL subcutaneous solution Dose : 40 unit(s) =, 0 Refill(s) Start Date: 01/18/25 Status: Ordered Repeat number: 1 Start: 05-04-2024 End: 12-08-2024 Insulin Glargine (Basaglar Kwikpen U-100 Insulin) 100 unit/mL (3 mL) insulin pen Discontinued 30 U SC DAILY 21 08May 04, 2024 12:00am December 08, 2024 8:02pm Start: 07-06-2023 End: 07-06-2023 Insulin Glargine U-300 Conc (Toujeo Solostar U-300 Insulin) 300 unit/mL (1.5 mL) insulin pen Discontinued 30 U SC AT BEDTIME 15 July 06, 2023 12:54pm July 06, 2023 12:56pm Start: 07-06-2023 Insulin Glargi ne U-300 Conc (Toujeo Max U-300 Solostar) 300 unit/mL (3 mL) insulin pen Active 30 UNIT SC DAILY July 06, 2023 12:00am Start: 07-05-2023 End: 07-06-2023 Insulin Glargine U-300 Conc (Toujeo Solostar U-300 Insulin) 300 unit/mL (1.5 mL) insulin pen Discontinued 40 U SC AT BEDTIME 15 July 05, 2023 1:10pm July 06, 2023 [...] Discontinued 20 U SC TWICE A DAY 6 0 July 28, 2022 3:06pm July 05, 2023 1:07pm diabetes Start: 04-11-2022 End: 07-28-2022 Insulin Glargine U-300 Conc (Toujeo Max U-300 Solostar) 300 unit/mL (3 mL) insulin pen Discontinued 20 U SC DAILY July 26, 2022 1:29pm July 28, 2022 3:06pm diabetes Start: 06-19-2020 End: 03-06-2022 Insulin Glargine U-300 Conc 300 UNIT/ML insulin pen Discontinued 45 U SQ AT BEDTIME June 19, 2020 1:00am March 06, 2022 9:11am Insulin Glargine U-300 Conc (Toujeo Solostar U-300 Insulin) 300 unit/mL (1.5 mL) insulin pen (3 sources) Start: 12-08-2024 Insulin Glargi ne U-300 Conc (Touvivianao Solostar U-300 Insulin) 300 unit/mL (1.5 mL) insulin pen Active 40 U SC AT BEDTIME December 08, 2024 12:00am 3 ml insulin lispro 100 unt/ml pen injector (20 sources) Insulin Analog Start: 01-18-2025 End: 07-17-2025 inject 1 dose by subcutaneous injection three times daily HumaLOG KwikPen 100 units/mL injectable PEN Dose : 10 unit(s) =, Subcutaneous, TID, # 9 mL, 1 Refill(s), Pharmacy: [facility]/pharmacy #[id number], 161, cm, 01/18/25 9:58:00 EDT, Height, kg, 01/18/25 9:58:00 EDT, Dosing Weight Start Date: 01/18/25 Stop Date: 07/17/25 Status: Ordered Quantity: 9.0 Unit: mL Repeat number: 2 Start: 12-10-2024 Insulin Lispro (Humalog Kwikpen Insulin) 100 unit/mL Insulin Pen Active 10 U SC THREE TIMES DAILY BEFORE MEALS 15 3 December 10, 2024 9:01am diabetes Start: 07-02-2023 End: 07-06-2023 inject 6 [IU] by subcutaneous injection at mealtime Insulin Lispro (Insulin Lispro 100 Unit/Ml Subcutaneous Cartridge) 100 unit/mL cartridge Discontinued 6 U SC .COMPLEX July 02, 2023 1:00am July 06, 2023 12:44pm 6 units subcutaneously with meals; with meals Start: 07-28-2022 End: 12-10-2024 Insulin Lispro (Humalog Kwik pen Insulin) 100 unit/mL Insulin Pen Discontinued 6 U SC THREE TIMES DAILY BEFORE MEALS 15 3 May 04, 2024 2:20pm December 10, 2024 9:01am diabetes lidocaine 0.05 mg/mg medicated patch (2 sources) Antiarrhythmic, Amide Local Anesthetic Start: 03-06-2022 apply 1 dose topically once daily Lidocaine Active 1 PATCH TOPICAL DAILY 7 March 06, 2022 12:00am lisinopril 5 mg oral tablet (20 sources) Angiotensin Converting Enzyme Inhibitor Start: 05-04-2024 End: 07-17-2025 lisinopril 5 mg oral tablet Dose : 5 mg = 1 tab(s), Oral, Daily, # 90 tab(s), 1 Refill(s), Pharmacy: [facility]/pharmacy #[id number], 161, cm, 01/18/25 9:58:00 EDT, Height, kg, 01/18/25 9:58:00 EDT, Dosing Weight Start Date: 01/18/25 Stop Date: 07/17/25 Status: Ordered Quantity: 90.0 Unit: tab(s) Repeat number: 2 Start: 03-01-2024 End: 12-08-2024 take 2 tablets by mouth once daily Lisinopril 2.5 mg tablet Discontinued 5 mg PO DAILY March 01, 2024 12:00am December 08, 2024 8:03pm blood pressurre Start: 07-14-2019 End: 03-01-2024 take 1 tablet by mouth once daily Lisinopril 2.5 mg tablet Discontinued 2.5 mg PO DAILY 30 July 05, 2023 1:10pm March 01, 2024 6:09am blood pressurre metFORMIN hydrochloride 1000 mg oral tablet (20 sources) Biguanide Start: 05-03-2024 End: 12-08-2024 metFORMIN 1000 mg oral tablet (IR) 0 Refill(s) Start Date: 01/18/25 Status: Ordered Repeat number: 1 Start: 07-05-2023 End: 05-03-2024 take 1 tablet by mouth twice daily Metformin 1,000 mg tablet Discontinued 1000 mg PO TWICE A DAY 60 July 05, 2023 1:00am May 03, 2024 12:04am diabetes Start: 06-19-2020 End: 07-28-2022 take 1 tablet by mouth twice daily Metformin 1,000 mg tablet Discontinued 1000 mg PO TWICE A DAY July 26, 2022 1:25pm July 28, 2022 3:03pm diabetes pantoprazole 40 mg delayed release oral tablet (2 sources) Proton Pump Inhibitor Start: 03-06-2022 take 40 mg by mouth twice daily Pantoprazole Active 40 MG PO TWICE A DAY 60 March 06, 2022 12:00am rosuvastatin calcium 10 mg oral tablet (4 sources) HMG-CoA Reductase Inhibitor Start: 01-19-2025 rosuvastatin 10 mg oral tablet Dose : 10 mg = 1 tab(s), Oral, qDay, # 90 tab(s), 3 Refill(s), Pharmacy: [facility]/pharmacy #[id number], 161, cm, 01/18/25 9:58:00 EDT, Height, kg, 01/18/25 9:58:00 EDT, Dosing Weight Start Date: 01/19/25 Status: Ordered Quantity: 90.0 Unit: tab(s) Repeat number: 4 Start: 12-08-2024 take 1 tablet by mi th once daily Rosuvastatin 5 mg tablet Active 5 mg PO DAILY December 08, 2024 12:00am sertraline 50 mg oral tablet (20 sources) Serotonin Reuptake Inhibitor Start: 05-02-2024 End: 07-17-2025 sertraline 50 mg oral tablet Dose : 50 mg = 1 tab(s), Oral, qDay, # 90 tab(s), 1 Refill(s), Pharmacy: [facility]/pharmacy #[id number], 161, cm, 01/18/25 9:58:00 EDT, Height, kg, 01/18/25 9:58:00 EDT, Dosing Weight Start Date: 01/18/25 Stop Date: 07/17/25 Status: Ordered Quantity: 90.0 Unit: tab(s) Repeat number: 2 Start: 07-26-2022 End: 03-01-2024 take 1 tablet by mouth once daily Sertraline 100 mg tablet Discontinued 100 mg PO DAILY July 26, 2022 1:00am March 01, 2024 6:09am depression Start: 07-14-2019 End: 07-26-2022 take 2 tablets [...] / HYDROcodone bitartrate 5 mg oral tablet (9 sources) Opioid Agonist Start: 07-01-2023 End: 07-02-2023 Hydrocodone-Acetami nophen 5-325 mg tablet Discontinued 1 {tbl} PO EVERY 6 HOURS NEEDED as needed for Pain 12 3 0 June 26th, 2023 Adriano 27th, 2023 10:26pm Low back pain Low back pain, unspecified Start: 07-01-2023 End: 07-02-2023 take 1 tablet by mouth every six hours as needed Hydrocodone-Acetaminophen Discontinued 1 TABLET PO EVERY 6 HOURS NEEDED 12 3 July 01, 2023 July 02, 2023 9:26pm cefdinir 300 mg oral capsule (4 sources) Cephalosporin Antibacterial Start: 05-04-2024 End: 12-08-2024 take 1 capsule by mouth twice daily Cefdinir 300 mg capsule Discontinued 300 mg PO TWICE A DAY 10 May 04, 2024 12:00am December 08, 2024 8:03pm diazePAM 2 mg oral tablet (9 sources) Benzodiazepine Start: 07-01-2023 End: 03-01-2024 take 1 tablet by mouth three times daily as needed for pain Diazepam 2 mg tablet Discontinued 2 mg PO 3 TIMES DAILY NEEDED as needed for back pain 10 July 01, 2023 1:00am March 01, 2024 6:09am dicyclomine hydrochloride 10 mg oral capsule (8 sources) Anticholinergic Start: 07-02-2023 End: 07-02-2023 take 2 capsules by mouth three times daily before mealtime Dicyclomine 10 mg capsule Discontinued 20 mg PO THREE TIMES DAILY BEFORE MEALS 20 July 02, 2023 1:00am July 02, 2023 10:26pm Start: 07-02-2023 End: 07-02-2023 take 20 mg by mouth three times daily before mealtime Dicyclomine Discontinued 20 MG PO THREE TIMES DAILY BEFORE MEALS July 02, 2023 12:00am July 02, 2023 9:26pm empagliflozin 25 mg oral tablet (20 sources) Sodium-Glucose Cotransporter 2 Inhibitor Start: 07-02-2023 [...] 26, 2022 1:25pm July 28, 2022 3:02pm diabetes Start: 07-24-2021 End: 03-06-2022 take 1 tablet by mouth once daily Glimepiride 2 mg tablet Discontinued 2 mg PO DAILY July 24, 2021 1:00am March 06, 2022 9:11am Insulin Glargine U-300 Conc (Toujeo Max U-300 Solostar) 300 unit/mL (3 mL) insulin pen (8 sources) Start: 03-01-2024 End: 05-04-2024 Insulin Glargine U-300 Conc (Toujeo Max U-300 Solostar) 300 unit/mL (3 mL) insulin pen Discontinued 30 U SC AT BEDTIME March 01, 2024 12:00am May 04, 2024 2:47pm blood sugar Start: 03-01-2024 End: 05-04-2024 Insulin Glargine U-300 Conc (Toujeo Max U-300 Solostar) 300 unit/mL (3 mL) insulin pen Discontinued 30 U SC AT BEDTIME March 01, 2024 12:00am May 04, 2024 2:47pm Start: 07-06-2023 End: 03-01-2024 Insulin Glargine U-300 Conc (Toujeo Max U-300 Solostar) 300 unit/mL (3 mL) insulin pen Discontinued 30 U SC DAILY 12 06July 06, 2023 1:00am March 01, 2024 6:09am Start: 07-06-2023 End: 03-01-2024 Insulin Glargine U-300 Conc (Toujeo Max U-300 Solostar) 300 unit/mL (3 mL) insulin pen Discontinued 30 U SC DAILY July 06, 2023 1:00am March 01, 2024 6:09am Insulin Glargine-Yfgn (17 sources) Start: 03-06-2022 End: 10-06-2022 Insulin Glargine-Yfgn 100 un it/mL (3 mL) Insulin Pen Discontinued 15 U SC AT BEDTIME 0 March 06, 2022 12:00am April 11, 2022 8:34am Start: 03-06-2022 End: 04-11-2022 Insulin Glargine-Yfgn 100 [...] AT BEDTIME 0 March 06, 2022 12:00am naproxen 500 mg oral tablet (13 sources) Nonsteroidal Anti-inflammatory Drug Start: 07-26-2022 End: 03-01-2024 take 1 tablet by mouth once daily as needed for pain Naproxen 500 mg tablet Discontinued 500 mg PO DAILY as needed for Pain July 26, 2022 1:00am March 01, 2024 6:08am ondansetron 4 mg disintegrating oral tablet (8 sources) Serotonin-3 Receptor Antagonist Start: 07-02-2023 End: 07-02-2023 take 1 tablet by mouth every eight hours as needed for nausea Ondansetron 4 mg tablet,disintegra ting Discontinued 4 mg PO EVERY 8 HOURS NEEDED as needed for Nausea 10 July 02, 2023 1:00am July 02, 2023 10:26pm potassium chloride 20 meq extended release oral tablet (20 sources) Start: 03-05-2024 End: 05-02-2024 take 1 tablet by mouth twice daily Potassium Chloride 20 mEq tablet extended release Discontinued 20 meq PO TWICE A DAY 20 March 05, 2024 12:00am May 02, 2024 8:52pm Start: 03-06-2022 Potassium Chlo ride (Klor-Con M20) 20 mEq tablet,ER particles/crystals Active 40 MEQ PO TWICE A DAY 20 5 March 06, 2022 12:00am Start: 07-28-2021 End: 03-06-2022 Potassium Chloride (Klor-Con M20) 20 mEq tablet,ER particles/crystals Discontinued 40 meq PO DAILY 14 7 0 July 28, 2021 1:00am March 06, 2022 9:11am predniSONE 20 mg oral tablet (17 sources) Start: 06-19-2020 End: 06-24-2020 take 2 [...] kidney; Translations: [Acute kidney failure, unspecified] Episodic Administrative/social admission (2 sources) Persons encountering health services in other specified circumstances; Translations: [Persons encountering health services in other specified circumstances] Onset: 01-18-2025 Episodic Alcohol-related disorders (20 sources) H/O: alcoholism; Translations: [Alcohol dependence, in remission] Chronic Conditions associated with dizziness or vertigo (1 source) Vertigo 01-18-2025 Episodic Diabetes mellitus with complications (20 sources) Diabetic ketoacidosis; Translations: [Type 2 diabetes mellitus with ketoacidosis without coma] Onset: 05-04-2024 Chronic Diabetes mellitus without complication (20 sources) Diabetes mellitus; Translations: [Type 2 diabetes mellitus without complications] Onset: 05-04-2024 Chronic Disorders of lipid metabolism (3 sources) Hyperlipidemia; Translations: [Hyperlipidemia, unspecified] Onset: 01-18-2025 01-18-2025 Chronic Essential hypertension (12 sources) Malignant hypertension; Translations: [Essential (primary) hypertension] Onset: 05-04-2024 05-12-2024 Chronic Genitourinary symptoms and ill-defined conditions (8 sources) Pyuria; Translations: [Pyuria] 07-02-2023 Episodic Neoplasms of unspecified nature or uncertain behavior (1 source) Neoplasm of uncertain behavior of left kidney; Translations: [Neoplasm of uncertain behavior of left kidney] 02-24-2025 Episodic Other aftercare (2 sources) senior living (current) use of insulin; 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] Onset: 01-18-2025 Episodic Other diseases of kidney and ureters (3 sources) Renal mass; Translations: [Renal mass (finding)] Chronic Other gastrointestinal disorders (8 sources) Constipation; Translations: [Constipation, unspecified] 07-02-2023 Episodic Other lower respiratory disease (15 sources) Cough; Translations: [Cough] 05-11-2022 Episodic Other lower respiratory disease (13 sources) Tachypnea; Translations: [Tachypnea, not elsewhere classified] 07-26-2022 Episodic Other lower respiratory disease (3 sources) Tachypnea, not elsewhere classified; Translations: [Tachypnea] 07-26-2022 Episodic Other screening for suspected conditions (not mental disorders or infectious disease) (20 sources) Serum creatinine raised; Translations: [Other specified abnormal findings of blood chemistry] 07-26-2022 Episodic Other upper respiratory disease (8 sources) Bleeding from nose; Translations: [Epistaxis] 07-02-2023 Episodic Other upper respiratory infections (15 sources) Acute upper respiratory infection; Translations: [Acute upper respiratory infection, unspecified] 05-11-2022 Episodic Pancreatic disorders (not diabetes) (20 sources) Pancreatitis; Translations: [Acute pancreatitis without necrosis or infection, unspecified] Episodic Residual codes; unclassified (4 sources) Noncompliance with medication regimen; Translations: [Noncompliance with medication regimen] 05-12-2024 Episodic Spondylosis; intervertebral disc disorders; other back problems (19 sources) Low back pain; Translations: [Low back pain] 07-01-2023 Episodic Unclassified (1 source) First encounter by subject 01-18-2025 Unclassified (1 source) Long-term current use of insulin 01-18-2025 Unclassified (1 source) Patient's other noncompliance with [...] [Dehydration] Onset: 03-05-2024 Episodic Malaise and fatigue (10 sources) Malaise; Translations: [Other malaise] Onset: 05-04-2024 05-12-2024 Episodic Urinary tract infections (5 sources) Urinary tract infectious disease; Translations: [Urinary tract infection, site not specified] Onset: 05-04-2024 05-03-2024 Episodic Results Test Name Value Interpretation Reference Range Facility [facility] 02-09-2025 DAYANA Telephone (UROVIVIANA) LINA MEADOWS ([id number]) 1960 F Date Time Provider Department 02/09/25 MEREDITH FELIPE UROVIVIANA During your visit today, we recorded the following [facility] 12[facility]30 PM Signed Patient called in regarding her appointment with Dr. Felipe on 02/10. She stated she uses her insurance company to arrange ride services. Patient stated she gave her insurance company the address for [facility], not the [facility] and when she called to tell them of the address change they cancelled her ride and she would be without a ride. I let her know that she would be able to be dropped off at the hospital entrance and walk over to our floor, she stated she was okay with doing this. She was unsure of what to do, I offered to keep this appointment and schedule another incase her insurance company could not provider a ride. I scheduled an additional appointment on 03/[address] Felipe. Patient state she would call back to cancel one of these appointments once she figured out the ride situation. Allergies As of Date: 02/09/2025 Noted Allergy Reaction LATEX 07/09/2012 2 - Rash Date Reviewed: 07/09/2012 Reviewed by: Corwin Mojica - Fully Assessed Reason for Visit: Appointment [[id number]] Meds Comments as of 07/09/2012: No daily medications Problem List As Of Date: 02/09/2025 (None) Encounter Status:Closed by CHRIS FORRESTER on 02/09/25 Normal [facility] Microalb:Creat Ratio,Random URon 01-19-2025 Creatinine [Mass/Vol] 151.00 mg/dL Normal 28.00- 217.0 0 [facility] Comment on above: Performed By: #### L [id number] ####[facility] [id number] [place], [place], [id number] MALB:CREAT 12.6 mg/g CRE Normal <30 mg/g CRE [facility] Comment on above: Performed By: #### L [id number] ####[facility] [id number] [place], [place], [id number] MICROALBUMIN,UR 19.0 mg/L Normal <20 mg/L [facility] Comment on above: Performed By: #### L [id number] ####[facility] [id number] [place], [place], [id number] Random urine creatinine jn urement (mass/volume)Ordered By: Angella Boggs on 01-19-2025 Creatinine Unsp time (U) [Mass/Vol] 151.00 mg/dL 28.00-217.0 0 [facility] Urine albumin measurement wi detection limit of 20 mg/L or less (mass/volume)Ordered By: Angella Boggs on 01-19-2025 Albumin DL <= 20 mg/L (U) [Mass/Vol] 19.0 mg/L <20 mg/L [facility] .GFRon 07-15-2025 Estimated Glomerular Filtration Rate 99 ml/min/1.73sqm Normal [facility] Comment on above: Result Comment: Stages of Chronic Kidney Disease (CKD) Stage Description eGFR(ml/min/1.73 sq.m.) CKD 1 Normal kidney function or >=90 normal kindney function with possible kidney damage (ex. Proteinuria) CKD 2 Kidney damage with mild loss 60-89 of kidney function CKD 3a Mild to moderate loss of kidney 45-59 function CKD 3b Moderate to severe loss of 30-44 of kindey function CKD 4 Severe loss of kidney function 15-29 CKD 5 Kidney failure <15 Note: (go live 2024) the eGFR calculation was updated to the 2020 CKD-EPI creatinine equation without a race factor to calculate the eGFR results. Performed By: #### C MP, LIPID, A1C, GFR #### [id number] [place], [place] [address] A1Con 01-18-2025 Glucose [Mass/Vol] 263 mg/dL Normal [facility] Comment on above: Result Comment: Rosi mated Average Glucose calculated by equation ((28.7xA1C)-46.7) Estimated average glucose (eAG) is a calculated value from Hemoglobin A1C and is key account representative of the average blood glucose level in the last 2-3 month period. Normal range: less than 114 mg/dL Performed By: #### C MP, LIPID, A1C, GFR #### [address] [address] HbA1c (Bld) [Mass fraction] 10.8 % High 4.3-6.4 [facility] Comment on above: Performed By: #### C MP, LIPID, A1C, GFR #### [address] [place], [place] [address] CMPon 01-18-2025 Albumin Level 4.0 G/dL Normal 3.4-4.8 [facility] Comment on above: Performed By: #### C MP, LIPID, A1C, GFR #### [address] [place], [place] [address] Albumin/Globulin [Mass ratio] 1.1 {ratio} Normal 1.1-2.5 [facility] Comment on above: Performed By: #### C MP, LIPID, A1C, GFR #### [address] [address] ALP [Catalytic activity/Vol] 90 U/L Normal 40-135 [facility] Comment on above: Performed By: #### C MP, LIPID, A1C, GFR #### [address] [address] ALT [Catalytic activity/Vol] 23 U/L Normal 14-59 [facility] Comment on above: Performed By: #### C MP, LIPID, A1C, GFR #### [address] [address] AST [Catalytic activity/Vol] 16 U/L Normal 10-40 [facility] Comment on above: Performed By: #### C MP, LIPID, A1C, GFR #### [address] [address] Bili Total 0.4 mg/dL Normal 0.2-1.0 [facility] Comment on above: Result Comment: Use of this assay is not recommended for patients undergoing treatment with eltrombopag due to the potential for falsely elevated results. Performed By: #### C MP, LIPID, A1C, GFR #### [address] [address] BUN/Creatinine Ratio 18 ratio Normal 7-27 [facility] Comment on above: Performed By: #### C MP, LIPID, A1C, GFR #### [address] [address] Calcium [Mass/Vol] 9.7 mg/dL Normal 8.4-10.2 [facility] Comment on above: Performed By: #### C MP, LIPID, A1C, GFR #### [address] [address] Chloride [Moles/Vol] 102 mmol/L Normal 98-107 [facility] Comment on above: Performed By: #### C MP, LIPID, A1C, GFR #### [address] [address] CO2 [Moles/Vol] 28 mmol/L Normal 23-31 [facility] Comment on above: Performed By: #### C MP, LIPID, A1C, GFR #### [address] [address] Creatinine [Mass/Vol] 0.66 mg/dL Normal 0.51-0.95 [facility] Comment on above: Performed By: #### C MP, LIPID, A1C, GFR #### [address] [address] Electrolyte Balance 10.0 mEq/L Normal 4.0-15.0 [facility] Comment on above: Performed By: #### C MP, LIPID, A1C, GFR #### [address] [address] Globulin 3.8 G/dL Normal 2.7-4.4 [facility] Comment on above: Performed By: #### C MP, LIPID, A1C, GFR #### [address] [address] Glucose [Mass/Vol] 84 mg/dL Normal 80-115 [facility] Comment on above: Performed By: #### C MP, LIPID, A1C, GFR #### [address] [address] Potassium [Moles/Vol] 3.4 mmol/L Low 3.5-5.1 [facility] Comment on above: Performed By: #### C MP, LIPID, A1C, GFR #### [address] [address] Sodium [Moles/Vol] 140 mmol/L Normal 136-145 [facility] Comment on above: Performed By: #### C MP, LIPID, A1C, GFR #### [address] [address] Total Protein 7.8 G/dL Normal 6.4-8.2 [facility] Comment on above: Performed By: #### C MP, LIPID, A1C, GFR #### [address] [address] Urea nitrogen [Mass/Vol] 12 mg/dL Normal 7-18 [facility] Comment on above: Performed By: #### C MP, LIPID, A1C, GFR #### [facility] [address] [place], [place] [address] LABORATORYOrdered By: Evelin Hernandes on 01-18-2025 Albumin DL <= 20 mg/L (U) [Mass/Vol] 24.4 mg/L Invalid Interpretation Code AO ADM SS Albumin/Creatinine DL <= 20 mg/L (U) [Mass ratio] 50 mg/G High 0 - 30 mg/G AO Chemistry S Creatinine (U) [Mass/Vol] 48.4 mg/dL Invalid Interpretation Code AO ADM SS Cholesterol [Mass/Vol] 197 mg/dL Normal 0 - 2 00 mg/dL AO ADM SS Comment on above: Interpretive Data: C holesterol Reference Interval: Less than 200 Desirable 200-239 Borderline high risk 240 and above High risk Cholesterol in HDL [Mass/Vol] 69 mg/dL High 40 - 60 mg/dL AO ADM SS Cholesterol in LDL [Mass/Vol] 114 mg/dL Normal 0 - 130 mg/dL AO ADM SS Triglyceride [Mass/Vol] 72 mg/dL Normal 0 - 150 mg/dL AO ADM SS Comment on above: Interpretive Data: T riglyceride Reference Interval: Less than 150 Normal 150-199 Borderline high risk 200-499 High risk 500 or higher Very high risk LABORATORYOrdered By: SYSTEM SYSTEM on 01-18-2025 Albumin BCP dye [Mass/Vol] 4.0 G/dL Normal 3.4 - 4.8 G/dL AO ADM SS Albumin/Globulin [Mass ratio] 1.1 {ratio} Normal 1.1 - 2.5 ratio AO ADM SS ALP [Catalytic activity/Vol] 90 U/L Normal 40 - 135 U/L AO ADM SS ALT With P-5'-P [Catalytic activity/Vol] 23 U/L Normal 14 - 59 U/L AO ADM SS AST With P-5'-P [Catalytic activity/Vol] 16 U/L Normal 10 - 40 U/L AO ADM SS Bilirubin [Mass/Vol] 0.4 mg/dL Normal 0.2 - 1 .0 mg/dL AO ADM SS Comment on above: Interpretive Data: U se of this assay is not recommended for patients undergoing treatment with eltrombopag due to the potential for falsely elevated results. Calcium [Mass/Vol] 9.7 mg/dL Normal 8.4 - 10. 2 mg/dL AO ADM SS Chloride [Moles/Vol] 102 mmol/L Normal 98 - 10 7 mmol/L AO ADM SS CO2 [Moles/Vol] 28 mmol/L Normal 23 - 31 mmol/L AO ADM SS Creatinine [Mass/Vol] 0.66 mg/dL Normal 0.51 - 0.95 mg/dL AO ADM SS Electrolyte Balance 10.0 mEq/L Normal 4.0 - 15 .0 mEq/L AO ADM SS Estimated Glomerular Filtration Rate 99 ml/min/1.73sqm Invalid Interpretation Code AO Chemistry S Comment on above: Interpretive Data: Stages of Chronic Kidney Disease (CKD) Stage Description eGFR(ml/min/1.73 sq.m.) CKD 1 Normal kidney function or >=90 normal kindney function with possible kidney damage (ex. Proteinuria) CKD 2 Kidney damage with mild loss 60-89 of kidney function CKD 3a Mild to moderate loss of kidney 45-59 function CKD 3b Moderate to severe loss of 30-44 of kindey function CKD 4 Severe loss of kidney function 15-29 CKD 5 Kidney failure <15 Note: (go live 2024) the eGFR calculation was updated to the 2020 CKD-EPI creatinine equation without a race factor to calculate the eGFR results. Globulin 3.8 G/dL Normal 2.7 - 4.4 G/dL AO ADM SS Glucose [Mass/Vol] 84 mg/dL Normal 80 - 115 mg/dL AO ADM SS Glucose [Mass/Vol] 263 mg/dL Invalid Interpretation Code AO Chemistry S Comment on above: Interpretive Data: E stimated average glucose (eAG) is a calculated value from Hemoglobin A1C and is key account representative of the average blood glucose level in the last 2-3 month period. Normal range: less than 114 mg/dL HbA1c (Bld) [Mass fraction] 10.8 % High 4.3 - 6.4 % AO ADM SS Potassium [Moles/Vol] 3.4 mmol/L Low 3.5 - 5.1 mmol/L AO ADM SS Protein [Mass/Vol] 7.8 G/dL Normal 6.4 - 8.2 G/dL AO ADM SS Sodium [Moles/Vol] 140 mmol/L Normal 136 - 145 mmol/L AO ADM SS Urea nitrogen [Mass/Vol] 12 mg/dL Normal 7 - 18 mg/dL AO ADM SS Urea nitrogen/Creatinine [Mass ratio] 18 ratio Normal 7 - 27 ratio AO ADM SS LIPIDon 01-18-2025 Cholesterol [Mass/Vol] 197 mg/dL Normal 0-200 [facility] Comment on above: Result Comment: Chol esterol Reference Interval: Less than 200 Desirable 200-239 Borderline high risk 240 and above High risk Performed By: #### C MP, LIPID, A1C, GFR #### [address] [address] Cholesterol in HDL [Mass/Vol] 69 mg/dL High 40-60 [facility] Comment on above: Performed By: #### C MP, LIPID, A1C, GFR #### [address] [address] Cholesterol in LDL [Mass/Vol] 114 mg/dL Normal 0-130 [facility] Comment on above: Performed By: #### C MP, LIPID, A1C, GFR #### [address] [address] Triglyceride [Mass/Vol] 72 mg/dL Normal 0-150 [facility] Comment on above: Result Comment: Trig lyceride Reference Interval: Less than 150 Normal 150-199 Borderline high risk 200-499 High risk 500 or higher Very high risk Performed By: #### C MP, LIPID, A1C, GFR #### [address] [address] MALBRon 01-18-2025 U Creatinine 48.4 mg/dL Normal [facility] Comment on above: Performed By: #### M ALBR #### [address] [address] U Microalb 24.4 mg/L Normal [facility] Comment on above: Performed By: #### M ALBR #### [address] [address] U Ratio Alb/Cre 50 mg/G High 0-30 [facility] Comment on above: Performed By: #### M ALBR #### [address] [place], [place] [address] Microalb:Creat Ratio,Random URon 12-23-2024 MALB:CREAT 20.3 mg/g CRE Normal [facility] Comment on above: Result Comment: AMENDED REPORT 12/23/24 1237 MALB:CREAT previously reported as: 203.0 mg/g CRE Performed By: #### L 500.4100, L500.4050, L502.0250 ####[facility] [address] [place], [address] Basic Metabolic Profile (BMP )on 12-12-2024 BUN Normal 4-19 [facility] Comment on above: Result Comment: Canc elled via OM: Order cancelled - Patient discharged Performed By: #### L 100.0500, L500.2500 ####[facility] [address] [place], [address] BUN/CRE Normal 10-20 [facility] Comment on above: Result Comment: Canc elled via OM: Order cancelled - Patient discharged Performed By: #### L 100.0500, L500.2500 ####[facility] [address] [place], [address] Calcium Normal 7.6-11.0 [facility] Comment on above: Result Comment: Canc elled via OM: Order cancelled - Patient discharged Performed By: #### L 100.0500, L500.2500 ####[facility] [address] [place], [address] CL Normal 98-108 [facility] Comment on above: Result Comment: Canc elled via OM: Order cancelled - Patient discharged Performed By: #### L 100.0500, L500.2500 ####[facility] [address] [place], [address] CO2 Normal 21.0-32.0 [facility] Comment on above: Result Comment: Canc elled via OM: Order cancelled - Patient discharged Performed By: #### L 100.0500, L500.2500 ####[facility] [address] [place], [address] CREAT,SERUM Normal 0.70-1.20 [facility] Comment on above: Result Comment: Canc elled via OM: Order cancelled - Patient discharged Performed By: #### L 100.0500, L500.2500 ####[facility] [address] [place], [address] eGFR Normal >60 [facility] Comment on above: Result Comment: Canc elled via OM: Order cancelled - Patient discharged Performed By: #### L 100.0500, L500.2500 ####[facility] [address] [place], [address] GAP Normal 5-15 [facility] Comment on above: Result Comment: Canc elled via OM: Order cancelled - Patient discharged Performed By: #### L 100.0500, L500.2500 ####[facility] [address] [place], [address] GLU Normal 70-99 [facility] Comment on above: Result Comment: Canc elled via OM: Order cancelled - Patient discharged Performed By: #### L 100.0500, L500.2500 ####[facility] [address] [place], [address] Potassium Normal 3.3-5.1 [facility] Comment on above: Result Comment: Canc elled via OM: Order cancelled - Patient discharged Performed By: #### L 100.0500, L500.2500 ####[facility] [address] [place], [address] Basic Metabolic Profile (BMP) Normal 133-145 [facility] Comment on above: Result Comment: Canc elled via OM: Order cancelled - Patient discharged Performed By: #### L 100.0500, L500.2500 ####[facility] [address] [place], [address] CBC-Complete Blood Cnt No Di ffon 12-12-2024 HCT Normal 37-47 [facility] Comment on above: Result Comment: Canc elled via OM: Order cancelled - Patient discharged Performed By: #### L 100.0500, L500.2500 ####[facility] [address] [place], [address] HGB Normal 12.0-15.0 [facility] Comment on above: Result Comment: Canc elled via OM: Order cancelled - Patient discharged Performed By: #### L 100.0500, L500.2500 ####[facility] [address] [place], [address] MCH Normal 27.0-32.0 [facility] Comment on above: Result Comment: Canc elled via OM: Order cancelled - Patient discharged Performed By: #### L 100.0500, L500.2500 ####[facility] [address] [place], [address] MCHC Normal 32-36 [facility] Comment on above: Result Comment: Canc elled via OM: Order cancelled - Patient discharged Performed By: #### L 100.0500, L500.2500 ####[facility] [address] [place], [address] MCV Normal 81-99 [facility] Comment on above: Result Comment: Canc elled via OM: Order cancelled - Patient discharged Performed By: #### L 100.0500, L500.2500 ####[facility] [address] [place], [address] PLT Normal 150-450 [facility] Comment on above: Result Comment: Canc elled via OM: Order cancelled - Patient discharged Performed By: #### L 100.0500, L500.2500 ####[facility] [address] [place], [address] RBC Normal 4.2-5.4 [facility] Comment on above: Result Comment: Canc elled via OM: Order cancelled - Patient discharged Performed By: #### L 100.0500, L500.2500 ####[facility] [address] [place], [address] RDW CV Normal 11.6-14.6 [facility] Comment on above: Result Comment: Canc elled via OM: Order cancelled - Patient discharged Performed By: #### L 100.0500, L500.2500 ####[facility] [address] [place], [address] RDW SD Normal 35.1-43.9 [facility] Comment on above: Result Comment: Canc elled via OM: Order cancelled - Patient discharged Performed By: #### L 100.0500, L500.2500 ####[facility] [address] [place], [address] WBC Normal 4.4-11.0 [facility] Comment on above: Result Comment: Canc elled via OM: Order cancelled - Patient discharged Performed By: #### L 100.0500, L500.2500 ####[facility] [address] [place], [address] Basic Metabolic Profile (BMP )on 12-11-2024 BUN Normal 4-19 [facility] Comment on above: Result Comment: Canc elled via OM: Order cancelled - Patient discharged Performed By: #### L 500.2500, L100.0500 ####[facility] [address] [place], [address] BUN/CRE Normal 10-20 [facility] Comment on above: Result Comment: Canc elled via OM: Order cancelled - Patient discharged Performed By: #### L 500.2500, L100.0500 ####[facility] [address] [place], [address] Calcium Normal 7.6-11.0 [facility] Comment on above: Result Comment: Canc elled via OM: Order cancelled - Patient discharged Performed By: #### L 500.2500, L100.0500 ####[facility] [address] [place], [address] CL Normal 98-108 [facility] Comment on above: Result Comment: Canc elled via OM: Order cancelled - Patient discharged Performed By: #### L 500.2500, L100.0500 ####[facility] [address] [place], [address] CO2 Normal 21.0-32.0 [facility] Comment on above: Result Comment: Canc elled via OM: Order cancelled - Patient discharged Performed By: #### L 500.2500, L100.0500 ####[facility] [address] [place], [address] CREAT,SERUM Normal 0.70-1.20 [facility] Comment on above: Result Comment: Canc elled via OM: Order cancelled - Patient discharged Performed By: #### L 500.2500, L100.0500 ####[facility] [address] [place], [address] eGFR Normal >60 [facility] Comment on above: Result Comment: Canc elled via OM: Order cancelled - Patient discharged Performed By: #### L 500.2500, L100.0500 ####[facility] [address] [place], [address] GAP Normal 5-15 [facility] Comment on above: Result Comment: Canc elled via OM: Order cancelled - Patient discharged Performed By: #### L 500.2500, L100.0500 ####[facility] [address] [place], [address] GLU Normal 70-99 [facility] Comment on above: Result Comment: Canc elled via OM: Order cancelled - Patient discharged Performed By: #### L 500.2500, L100.0500 ####[facility] [address] [place], [address] Potassium Normal 3.3-5.1 [facility] Comment on above: Result Comment: Canc elled via OM: Order cancelled - Patient discharged Performed By: #### L 500.2500, L100.0500 ####[facility] [address] [place], [address] Basic Metabolic Profile (BMP) Normal 133-145 [facility] Comment on above: Result Comment: Canc elled via OM: Order cancelled - Patient discharged Performed By: #### L 500.2500, L100.0500 ####[facility] [address] [place], [address] CBC-Complete Blood Cnt No Di ffon 12-11-2024 HCT Normal 37-47 [facility] Comment on above: Result Comment: Canc elled via OM: Order cancelled - Patient discharged Performed By: #### L 500.2500, L100.0500 ####[facility] [address] [place], [address] HGB Normal 12.0-15.0 [facility] Comment on above: Result Comment: Canc elled via OM: Order cancelled - Patient discharged Performed By: #### L 500.2500, L100.0500 ####[facility] [address] [place], [address] MCH Normal 27.0-32.0 [facility] Comment on above: Result Comment: Canc elled via OM: Order cancelled - Patient discharged Performed By: #### L 500.2500, L100.0500 ####[facility] [address] [place], [address] MCHC Normal 32-36 [facility] Comment on above: Result Comment: Canc elled via OM: Order cancelled - Patient discharged Performed By: #### L 500.2500, L100.0500 ####[facility] [address] [place], [address] MCV Normal 81-99 [facility] Comment on above: Result Comment: Canc elled via OM: Order cancelled - Patient discharged Performed By: #### L 500.2500, L100.0500 ####[facility] [address] [place], [address] PLT Normal 150-450 [facility] Comment on above: Result Comment: Canc elled via OM: Order cancelled - Patient discharged Performed By: #### L 500.2500, L100.0500 ####[facility] [address] [place], [address] RBC Normal 4.2-5.4 [facility] Comment on above: Result Comment: Canc elled via OM: Order cancelled - Patient discharged Performed By: #### L 500.2500, L100.0500 ####[facility] [address] [place], [address] RDW CV Normal 11.6-14.6 [facility] Comment on above: Result Comment: Canc elled via OM: Order cancelled - Patient discharged Performed By: #### L 500.2500, L100.0500 ####[facility] [address] [place], [address] RDW SD Normal 35.1-43.9 [facility] Comment on above: Result Comment: Canc elled via OM: Order cancelled - Patient discharged Performed By: #### L 500.2500, L100.0500 ####[facility] [address] [place], [address] WBC Normal 4.4-11.0 [facility] Comment on above: Result Comment: Canc elled via OM: Order cancelled - Patient discharged Performed By: #### L 500.2500, L100.0500 ####[facility] [address] [place], [address] Anion gap in Serum or Plasma Ordered By: Ciro Mendosa on 12-10-2024 Anion gap [Moles/Vol] 10 mmol/L 11-18 [facility] BUN/creatinine ratioOrdered By: Ciro Mendosa on 12-10-2024 Urea nitrogen/Creatinine [Mass ratio] 14.1 mg/mg 04-25 [facility] Basic Metabolic Profile (BMP )on 12-10-2024 BUN/CRE 14.1 RATIO Normal 04-25 [facility] Comment on above: Performed By: #### L 100.0500, L501.5200, L500.2500, L501.2300 ####[facility] [address] [place], [address] Calcium [Mass/Vol] 9.5 mg/dL Normal 7.6-11.0 [facility] Comment on above: Performed By: #### L 100.0500, L501.5200, L500.2500, L501.2300 ####[facility] [address] [place], [address] Chloride [Moles/Vol] 106 mmol/L Normal 98-108 [facility] Comment on above: Performed By: #### L 100.0500, L501.5200, L500.2500, L501.2300 ####[facility] [address] [place], [address] CO2 [Moles/Vol] 21.1 mmol/L Normal 21.0-32.0 [facility] Comment on above: Performed By: #### L 100.0500, L501.5200, L500.2500, L501.2300 ####[facility] [address] [place], [address] Creatinine [Mass/Vol] 0.76 mg/dL Normal 0.70-1.20 [facility] Comment on above: Performed By: #### L 100.0500, L501.5200, L500.2500, L501.2300 ####[facility] [address] [place], [address] ECRCL 63.49 ml/min Normal 50-250 [facility] Comment on above: Performed By: #### L 100.0500, L501.5200, L500.2500, L501.2300 ####[facility] [address] [place], [address] GAP 10 Normal 5-15 [facility] Comment on above: Performed By: #### L 100.0500, L501.5200, L500.2500, L501.2300 ####[facility] [address] [place], [address] GFR/1.73 sq M.predicted among non-blacks MDRD (S/P/Bld) [Vol rate/Area] 89 mL/min/{1.73_m2} Normal >60 [facility] Comment on above: Result Comment: mL/m in/1.73m2 CKD-EPI Creatinine Equation (2020) Performed By: #### L 100.0500, L501.5200, L500.2500, L501.2300 ####[facility] [address] [place], [address] Glucose [Mass/Vol] 118 mg/dL High 70-99 [facility] Comment on above: Performed By: #### L 100.0500, L501.5200, L500.2500, L501.2300 ####[facility] [address] [place], [address] Potassium [Moles/Vol] 3.6 mmol/L Normal 3.3-5.1 [facility] Comment on above: Performed By: #### L 100.0500, L501.5200, L500.2500, L501.2300 ####[facility] [address] [place], [address] Sodium [Moles/Vol] 137 mmol/L Normal 133-145 [facility] Comment on above: Performed By: #### L 100.0500, L501.5200, L500.2500, L501.2300 ####[facility] [address] [place], [address] Urea nitrogen [Mass/Vol] 11 mg/dL Normal 4-19 [facility] Comment on above: Performed By: #### L 100.0500, L501.5200, L500.2500, L501.2300 ####[facility] [address] [place], [address] Bedside Glucoseon 12-10-2024 FINGERSTICK GLU 93 mg/dL Normal 74-106 [facility] Comment on above: Result Comment: MARIA D GEMENT OF PATIENT CARE PER NURSING PROTOCOL Performed By: #### L 501.080 ####[facility] [address] [place], [address] FINGERSTICK GLU 115 mg/dL High 74-106 [facility] Comment on above: Result Comment: MARIA D GEMENT OF PATIENT CARE PER NURSING PROTOCOL Performed By: #### L 501.080 ####[facility] [address] [place], [address] CBC-Complete Blood Cnt No Di ffon 12-10-2024 Erythrocyte distribution width (RBC) [Ratio] 12.7 % Normal 11.6-14.6 [facility] Comment on above: Performed By: #### L 100.0500, L501.5200, L500.2500, L501.2300 ####[facility] [address] [place], [address] Hematocrit (Bld) [Volume fraction] 29.9 % Low 37-47 [facility] Comment on above: Performed By: #### L 100.0500, L501.5200, L500.2500, L501.2300 ####[facility] [address] [place], [address] Hemoglobin (Bld) [Mass/Vol] 10.5 g/dL Low 12.0-15.0 [facility] Comment on above: Performed By: #### L 100.0500, L501.5200, L500.2500, L501.2300 ####[facility] [address] [place], [address] MCH (RBC) [Entitic mass] 30.1 pg Normal 27.0-32.0 [facility] Comment on above: Performed By: #### L 100.0500, L501.5200, L500.2500, L501.2300 ####[facility] [address] [place], [address] MCHC (RBC) [Mass/Vol] 35.1 g/dL Normal 32-36 [facility] Comment on above: Performed By: #### L 100.0500, L501.5200, L500.2500, L501.2300 ####[facility] [address] [place], [address] MCV (RBC) [Entitic vol] 85.7 fL Normal 81-99 [facility] Comment on above: Performed By: #### L 100.0500, L501.5200, L500.2500, L501.2300 ####[facility] [address] [place], [address] Platelet mean volume (Bld) [Entitic vol] 12.0 fL Normal 6.2-12.0 [facility] Comment on above: Performed By: #### L 100.0500, L501.5200, L500.2500, L501.2300 ####[facility] [address] [place], [address] Platelets (Bld) [#/Vol] 175 10*3/uL Normal 150-450 [facility] Comment on above: Performed By: #### L 100.0500, L501.5200, L500.2500, L501.2300 ####[facility] [address] [place], [address] RBC (Bld) [#/Vol] 3.49 10*6/uL Low 4.2-5.4 [facility] Comment on above: Performed By: #### L 100.0500, L501.5200, L500.2500, L501.2300 ####[facility] [address] [place], [address] RDW SD 39.3 fl Normal 35.1-43.9 [facility] Comment on above: Performed By: #### L 100.0500, L501.5200, L500.2500, L501.2300 ####[facility] [address] [place], [address] WBC (Bld) [#/Vol] 4.1 10*3/uL Low 4.4-11.0 [facility] Comment on above: Performed By: #### L 100.0500, L501.5200, L500.2500, L501.2300 ####[facility] [address] [place], [address] Carbon dioxide, total [Moles /volume] in Central venous bloodOrdered By: Ciro Mendosa on 12-10-2024 CO2 [Moles/Vol] 21.1 mmol/L 21.0-32.0 [facility] Chloride assayOrdered By: Micky Mendosa on 12-10-2024 Chloride [Moles/Vol] 106 mmol/L 98-108 [facility] Erythrocyte distribution wid th ratioOrdered By: Ciro Mendosa on 12-10-2024 Erythrocyte distribution width (RBC) [Ratio] 12.7 % 11.6-14.6 [facility] Erythrocyte distribution wid th standard deviationOrdered By: Ciro Mendosa on 12-10-2024 Erythrocyte distribution width (RBC) [Ratio] 39.3 fl 35.1-43.9 [facility] Glomerular filtration rate ( GFR) estimation/1.73 sq m using serum, plasma, or whole bOrdered By: Ciro Mendosa on 12-10-2024 GFR/1.73 sq M.predicted among non-blacks MDRD (S/P/Bld) [Vol rate/Area] 89 mL/min/{1.73_m2} >60 [facility] Comment on above: mL/min/1.73m2 CKD-EP I Creatinine Equation (2020) [facility]ucose [facility] deOrdered By: Ciro Mendosa on 12-10-2024 Glucose [Mass/Vol] 93 mg/dL 74-106 [facility] Comment on above: MANAGEMENT OF PATIEN T CARE PER NURSING PROTOCOL Hematocrit Auto (Bld) [Volum e fraction]Ordered By: Ciro Mendosa on 12-10-2024 Hematocrit (Bld) [Volume fraction] 29.9 % Low 37-47 [facility] Hemoglobin measurementOrdere d By: Ciro Mendosa on 12-10-2024 Hemoglobin (Bld) [Mass/Vol] 10.5 g/dL Low 12.0-15.0 [facility] MCV (mean corpuscular volume ) determinationOrdered By: Ciro Mendosa on 12-10-2024 MCV (RBC) [Entitic vol] 85.7 fL 81-99 [facility] Magnesiumon 12-10-2024 Magnesium [Mass/Vol] 1.9 mg/dL Normal 1.5-2.2 [facility] Comment on above: Performed By: #### L 100.0500, L501.5200, L500.2500, L501.2300 ####[facility] [address] [place], [address] Magnesium measurement (mass/ volume)Ordered By: Ciro Mendosa on 12-10-2024 Magnesium (Unsp spec) [Mass/Vol] 1.9 mg/dL 1.5-2.2 [facility] Mean corpuscular hemoglobin (MCH) determinationOrdered By: Ciro Mendosa on 12-10-2024 MCH (RBC) [Entitic mass] 30.1 pg 27.0-32.0 [facility] Mean corpuscular hemoglobin concentration (MCHC) determinationOrdered By: Ciro Mendosa on 12-10-2024 MCHC (RBC) [Mass/Vol] 35.1 g/dL 32-36 [facility] Mean platelet volume determi nationOrdered By: Ciro Mendosa on 12-10-2024 Platelet mean volume (Bld) [Entitic vol] 12.0 fL 6.2-12.0 [facility] Phosphoruson 12-10-2024 Phosphate [Mass/Vol] 3.1 mg/dL Normal 2.7-4.5 [facility] Comment on above: Performed By: #### L 100.0500, L501.5200, L500.2500, L501.2300 ####[facility] [address], [address] Platelet countOrdered By: Micky Mendosa on 12-10-2024 Platelets (Bld) [#/Vol] 175 10*3/uL 150-450 [facility] Potassium measurement (mass/ volume)Ordered By: Ciro Mendosa on 12-10-2024 Potassium (Unsp spec) [Mass/Vol] 3.6 mmol/L 3.3-5.1 [facility] RBC Auto (Bld) [#/Vol]Ordere d By: Ciro Mendosa on 12-10-2024 RBC (Bld) [#/Vol] 3.49 10*6/uL Low 4.2-5.4 [facility] Serum creatinine measurement (mass/volume)Ordered By: Ciro Mendosa on 12-10-2024 Creatinine [Mass/Vol] 0.76 mg/dL 0.70-1.20 [facility] Serum glucose measurement (m ass/volume)Ordered By: Ciro Mendosa on 12-10-2024 Glucose [Mass/Vol] 118 mg/dL High 70-99 [facility] Serum or plasma calcium jn urement (mass/volume)Ordered By: Ciro Mendosa on 12-10-2024 Calcium [Mass/Vol] 9.5 mg/dL 7.6-11.0 [facility] Serum or plasma urea nitroge n measurement (mass/volume)Ordered By: Ciro Mendosa on 12-10-2024 Urea nitrogen [Mass/Vol] 11 mg/dL 4-19 [facility] Sodium levelOrdered By: Helio Mendosa on 12-10-2024 Sodium [Moles/Vol] 137 mmol/L 133-145 [facility] White blood cell (WBC) count Ordered By: Ciro Mendosa on 12-10-2024 WBC (Bld) [#/Vol] 4.1 10*3/uL Low 4.4-11.0 [facility] Absolute lymphocyte countOrd ered By: [facility] Fred on 12-09-2024 Lymphocytes Auto (Unsp spec) [#/Vol] 2.57 10*3/uL 0.83-4.51 [facility] Absolute neutrophil countOrd ered By: [facility] Fred on 12-09-2024 Neutrophils (Bld) [#/Vol] 3.9 10*3/uL 2.0-7.7 [facility] Automated lymphocyte count a s percentage of total leukocytesOrdered By: Zelda Ibarra on 12-09-2024 Lymphocytes/100 WBC Auto (Unsp spec) 34.5 % 19-41 [facility] Basic Metabolic Profile (BMP )on 12-09-2024 BUN/CRE 18.1 RATIO Normal 10-20 [facility] Comment on above: Performed By: #### L 500.2500 ####[facility] [address] [place], [address] Calcium [Mass/Vol] 9.1 mg/dL Normal 7.6-11.0 [facility] Comment on above: Performed By: #### L 500.2500 ####[facility] [address] [place], [address] Chloride [Moles/Vol] 104 mmol/L Normal 98-108 [facility] Comment on above: Performed By: #### L 500.2500 ####[facility] [address] [place], [address] CO2 [Moles/Vol] 17.2 mmol/L Low 21.0-32.0 [facility] Comment on above: Performed By: #### L 500.2500 ####[facility] [address] [place], [address] Creatinine [Mass/Vol] 0.94 mg/dL Normal 0.70-1.20 [facility] Comment on above: Performed By: #### L 500.2500 ####[facility] [address] [place], [address] ECRCL 51.33 ml/min Normal 50-250 [facility] Comment on above: Performed By: #### L 500.2500 ####[facility] [address] [place], [address] GAP 14 Normal 5-15 [facility] Comment on above: Performed By: #### L 500.2500 ####[facility] [address] [place], [address] GFR/1.73 sq M.predicted among non-blacks MDRD (S/P/Bld) [Vol rate/Area] 69 mL/min/{1.73_m2} Normal >60 [facility] Comment on above: Result Comment: mL/m in/1.73m2 CKD-EPI Creatinine Equation (2020) Performed By: #### L 500.2500 ####[facility] [address] [place], [address] Glucose [Mass/Vol] 123 mg/dL High 70-99 [facility] Comment on above: Performed By: #### L 500.2500 ####[facility] [address] [place], [address] Potassium [Moles/Vol] 3.8 mmol/L Normal 3.3-5.1 [facility] Comment on above: Performed By: #### L 500.2500 ####[facility] [address] [place], [address] Sodium [Moles/Vol] 135 mmol/L Normal 133-145 [facility] Comment on above: Performed By: #### L 500.2500 ####[facility] [address] [place], [address] Urea nitrogen [Mass/Vol] 17 mg/dL Normal 4-19 [facility] Comment on above: Performed By: #### L 500.2500 ####[facility] [address] [place], [address] BUN/CRE 18.6 RATIO Normal 10-20 [facility] Comment on above: Order Comment: Call MD with results STAT Performed By: #### L 500.4050, L500.2500 ####[facility] [address] [place], [address] Calcium [Mass/Vol] 9.2 mg/dL Normal 7.6-11.0 [facility] Comment on above: Order Comment: Call MD with results STAT Performed By: #### L 500.4050, L500.2500 ####[facility] [address] [place], [address] Chloride [Moles/Vol] 103 mmol/L Normal 98-108 [facility] Comment on above: Order Comment: Call MD with results STAT Performed By: #### L 500.4050, L500.2500 ####[facility] [address] [place], [address] CO2 [Moles/Vol] 17.1 mmol/L Low 21.0-32.0 [facility] Comment on above: Order Comment: Call MD with results STAT Performed By: #### L 500.4050, L500.2500 ####[facility] [address] [place], [address] Creatinine [Mass/Vol] 1.01 mg/dL Normal 0.70-1.20 [facility] Comment on above: Order Comment: Call MD with results STAT Performed By: #### L 500.4050, L500.2500 ####[facility] [address] [place], [address] ECRCL 47.77 ml/min Low 50-250 [facility] Comment on above: Order Comment: Call MD with results STAT Performed By: #### L 500.4050, L500.2500 ####[facility] [address] [place], [address] GAP 14 Normal 5-15 [facility] Comment on above: Order Comment: Call MD with results STAT Performed By: #### L 500.4050, L500.2500 ####[facility] [address] [place], [address] GFR/1.73 sq M.predicted among non-blacks MDRD (S/P/Bld) [Vol rate/Area] 63 mL/min/{1.73_m2} Normal >60 [facility] Comment on above: Order Comment: Call MD with results STAT Result Comment: mL/m in/1.73m2 CKD-EPI Creatinine Equation (2020) Performed By: #### L 500.4050, L500.2500 ####[facility] [address] [place], [address] Glucose [Mass/Vol] 93 mg/dL Normal 70-99 [facility] Comment on above: Order Comment: Call MD with results STAT Performed By: #### L 500.4050, L500.2500 ####[facility] [address] [place], [address] Potassium [Moles/Vol] 4.6 mmol/L Normal 3.3-5.1 [facility] Comment on above: Order Comment: Call MD with results STAT Result Comment: Hemo lysis present, Results??could be affected.?? Performed By: #### L 500.4050, L500.2500 ####[facility] [address] [place], [address] Sodium [Moles/Vol] 134 mmol/L Normal 133-145 [facility] Comment on above: Order Comment: Call MD with results STAT Performed By: #### L 500.4050, L500.2500 ####[facility] [address] [place], [address] Urea nitrogen [Mass/Vol] 19 mg/dL Normal 4-19 [facility] Comment on above: Order Comment: Call MD with results STAT Performed By: #### L 500.4050, L500.2500 ####[facility] [address] [place], [address] BUN/CRE 20.6 RATIO High 10-20 [facility] Comment on above: Order Comment: Call MD with results STAT Performed By: #### L 500.2500, L509.7001 ####[facility] [address] [place], [address] Calcium [Mass/Vol] 9.5 mg/dL Normal 7.6-11.0 [facility] Comment on above: Order Comment: Call MD with results STAT Performed By: #### L 500.2500, L509.7001 ####[facility] [address] [place], [address] Chloride [Moles/Vol] 101 mmol/L Normal 98-108 [facility] Comment on above: Order Comment: Call MD with results STAT Performed By: #### L 500.2500, L509.7001 ####[facility] [address] [place], [address] CO2 [Moles/Vol] 16.8 mmol/L Low 21.0-32.0 [facility] Comment on above: Order Comment: Call MD with results STAT Performed By: #### L 500.2500, L509.7001 ####[facility] [address] [place], [address] Creatinine [Mass/Vol] 1.04 mg/dL Normal 0.70-1.20 [facility] Comment on above: Order Comment: Call MD with results STAT Performed By: #### L 500.2500, L509.7001 ####[facility] [address] [place], [address] ECRCL 46.40 ml/min Low 50-250 [facility] Comment on above: Order Comment: Call MD with results STAT Performed By: #### L 500.2500, L509.7001 ####[facility] [address] [place], [address] GAP 17 High 5-15 [facility] Comment on above: Order Comment: Call MD with results STAT Performed By: #### L 500.2500, L509.7001 ####[facility] [address] [place], [address] GFR/1.73 sq M.predicted among non-blacks MDRD (S/P/Bld) [Vol rate/Area] 61 mL/min/{1.73_m2} Normal >60 [facility] Comment on above: Order Comment: Call MD with results STAT Result Comment: mL/m in/1.73m2 CKD-EPI Creatinine Equation (2020) Performed By: #### L 500.2500, L509.7001 ####[facility] [address] [place], [address] Glucose [Mass/Vol] 139 mg/dL High 70-99 [facility] Comment on above: Order Comment: Call MD with results STAT Performed By: #### L 500.2500, L509.7001 ####[facility] [address] [place], [address] Potassium [Moles/Vol] 3.8 mmol/L Normal 3.3-5.1 [facility] Comment on above: Order Comment: Call MD with results STAT Performed By: #### L 500.2500, L509.7001 ####[facility] [address] [place], [address] Sodium [Moles/Vol] 134 mmol/L Normal 133-145 [facility] Comment on above: Order Comment: Call MD with results STAT Performed By: #### L 500.2500, L509.7001 ####[facility] [address] [place], [address] Urea nitrogen [Mass/Vol] 21 mg/dL High 4-19 [facility] Comment on above: Order Comment: Call MD with results STAT Performed By: #### L 500.2500, L509.7001 ####[facility] [address] [place], [address] Basophil percentageOrdered B y: Zelda White on 12-09-2024 Basophils/100 WBC (Bld) 0.5 % Normal 0-1 [facility] Comment on above: Performed By: #### L 100.0100, L501.9985 ####[facility] [address] [place], [address] Bedside Glucoseon 12-09-2024 FINGERSTICK GLU 207 mg/dL High 74-106 [facility] Comment on above: Result Comment: MARIA D GEMENT OF PATIENT CARE PER NURSING PROTOCOL Performed By: #### L 501.080 ####[facility] [address] [place], [address] FINGERSTICK GLU 253 mg/dL High 74-106 [facility] Comment on above: Result Comment: MARIA D GEMENT OF PATIENT CARE PER NURSING PROTOCOL Performed By: #### L 501.080 ####[facility] [address] [place], [address] FINGERSTICK GLU 140 mg/dL High 74-106 [facility] Comment on above: Result Comment: MARIA D GEMENT OF PATIENT CARE PER NURSING PROTOCOL Performed By: #### L 501.080 ####[facility] [address] [place], [address] FINGERSTICK GLU 116 mg/dL High 74-106 [facility] Comment on above: Result Comment: MARIA D GEMENT OF PATIENT CARE PER NURSING PROTOCOL Performed By: #### L 501.080 ####[facility] [address] [place], [address] FINGERSTICK GLU 103 mg/dL Normal 74-106 [facility] Comment on above: Result Comment: MARIA D GEMENT OF PATIENT CARE PER NURSING PROTOCOL Performed By: #### L 501.080 ####[facility] [address] [place], [address] FINGERSTICK GLU 98 mg/dL Normal 74-106 [facility] Comment on above: Result Comment: MARIA D GEMENT OF PATIENT CARE PER NURSING PROTOCOL Performed By: #### L 501.080 ####[facility] [address] [place], [address] FINGERSTICK GLU 113 mg/dL High 74-106 [facility] Comment on above: Result Comment: MARIA D GEMENT OF PATIENT CARE PER NURSING PROTOCOL Performed By: #### L 501.080 ####[facility] [address] [place], [address] FINGERSTICK GLU 102 mg/dL Normal 74-106 [facility] Comment on above: Result Comment: MARIA D GEMENT OF PATIENT CARE PER NURSING PROTOCOL Performed By: #### L 501.080 ####[facility] [address] [place], [address] FINGERSTICK GLU 104 mg/dL Normal 74-106 [facility] Comment on above: Result Comment: MARIA D GEMENT OF PATIENT CARE PER NURSING PROTOCOL Performed By: #### L 501.080 ####[facility] [address] [place], [address] FINGERSTICK GLU 125 mg/dL High 74-106 [facility] Comment on above: Result Comment: MARIA D GEMENT OF PATIENT CARE PER NURSING PROTOCOL Performed By: #### L 501.080 ####[facility] [address] [place], [address] FINGERSTICK GLU 88 mg/dL Normal 74-106 [facility] Comment on above: Result Comment: MARIA D GEMENT OF PATIENT CARE PER NURSING PROTOCOL Performed By: #### L 501.080 ####[facility] [address] [place], [address] FINGERSTICK GLU 156 mg/dL High 74-106 [facility] Comment on above: Result Comment: MARIA D GEMENT OF PATIENT CARE PER NURSING PROTOCOL Performed By: #### L 501.080 ####[facility] [address] [place], [address] Bilirubin, totalOrdered By: Zelda Ibarra on 12-09-2024 Bilirubin [Mass/Vol] 0.22 mg/dL Normal 0.00-1.30 [facility] Comment on above: Order Comment: Call MD with results STAT Performed By: #### L 500.4050, L500.2500 ####[facility] [address] [place], [address] CBC W/Diff, Automatedon Absolute Lymph 2.57 X10 3/uL Normal 0.83-4.51 [facility] Comment on above: Performed By: #### L 100.0100, L501.9985 ####[facility] [address] [place], [address] Absolute Neut 3.9 X10 3/uL Normal 2.0-7.7 [facility] Comment on above: Performed By: #### L 100.0100, L501.9985 ####[facility] [address] [place], [address] Erythrocyte distribution width (RBC) [Ratio] 12.5 % Normal 11.6-14.6 [facility] Comment on above: Performed By: #### L 100.0100, L501.9985 ####[facility] [address] [place], [address] Hematocrit (Bld) [Volume fraction] 28.5 % Low 37-47 [facility] Comment on above: Performed By: #### L 100.0100, L501.9985 ####[facility] [address] [place], [address] Hemoglobin (Bld) [Mass/Vol] 9.9 g/dL Low 12.0-15.0 [facility] Comment on above: Performed By: #### L 100.0100, L501.9985 ####[facility] [address] [place], [address] IG% 0.300 Normal 0.0-0.9 [facility] Comment on above: Result Comment: IG% - Immature Granulocytes (promyelocytes, myelocytes andmetamyelocytes) > 1% indicates that a LEFT SHIFT is Present. Performed By: #### L 100.0100, L501.9985 ####[facility] [address] [place], [address] Lymphocytes/100 WBC (Bld) 34.5 % Normal 19-41 [facility] Comment on above: Performed By: #### L 100.0100, L501.9985 ####[facility] [address] [place], [address] MCH (RBC) [Entitic mass] 29.7 pg Normal 27.0-32.0 [facility] Comment on above: Performed By: #### L 100.0100, L501.9985 ####[facility] [address] [place], [address] MCHC (RBC) [Mass/Vol] 34.7 g/dL Normal 32-36 [facility] Comment on above: Performed By: #### L 100.0100, L501.9985 ####[facility] [address] [place], [address] MCV (RBC) [Entitic vol] 85.6 fL Normal 81-99 [facility] Comment on above: Performed By: #### L 100.0100, L501.9985 ####[facility] [address] [place], [address] Nucleated RBC (Bld) [#/Vol] 0 10*3/uL Normal 0-5 [facility] Comment on above: Performed By: #### L 100.0100, L501.9985 ####[facility] [address] [place], [address] Platelet mean volume (Bld) [Entitic vol] 12.0 fL Normal 6.2-12.0 [facility] Comment on above: Performed By: #### L 100.0100, L5.9985 ####[facility] [address] [place], [address] Platelets (Bld) [#/Vol] 198 10*3/uL Normal 150-450 [facility] Comment on above: Performed By: #### L 100.0100, L5.9985 ####[facility] [address] [place], [address] RBC (Bld) [#/Vol] 3.33 10*6/uL Low 4.2-5.4 [facility] Comment on above: Performed By: #### L 100.0100, L501.9985 ####[facility] [address] [place], [address] RDW SD 38.5 fl Normal 35.1-43.9 [facility] Comment on above: Performed By: #### L 100.0100, L501.9985 ####[facility] [address] [place], [address] WBC (Bld) [#/Vol] 7.5 10*3/uL Normal 4.4-11.0 [facility] Comment on above: Performed By: #### L 100.0100, L501.9985 ####[facility] [address] [place], [address] Comprehensive Metabolic Prof ilon 12-09-2024 ALK PHOS 87 U/L Normal 35-104 [facility] Comment on above: Order Comment: Call MD with results STAT Performed By: #### L 500.4050, L500.2500 ####[facility] [address] [place], [address] T PROT 6.6 g/dL Normal 5.9-8.4 [facility] Comment on above: Order Comment: Call MD with results STAT Performed By: #### L 500.4050, L500.2500 ####[facility] [address] [place], [address] Comprehensive Metabolic Prof ilOrdered By: Zelda Ibarra on 12-09-2024 AST [Catalytic activity/Vol] 23 U/L Normal <=31 [facility] Comment on above: Hemolysis present, R esults could be affected. Order Comment: Call MD with results STAT Result Comment: Hemo lysis present, Results??could be affected.?? Performed By: #### L 500.4050, L500.2500 ####[facility] [address] [place], [address] Eosinophil percentageOrdered By: Zelda Ibarra on 12-09-2024 Eosinophils/100 WBC (Bld) 2.7 % Normal 0-5 [facility] Comment on above: Performed By: #### L 100.0100, L501.9985 ####[facility] [address] [place], [address] H AND P Exam - [facility] 12-09-2024 H&P Exam - Hospitalist [facility] Hemoglobin A1c percentageOrd ered By: Zelda Ibarra on 12-09-2024 HbA1c (Bld) [Mass fraction] 12.8 % High <=5.6 [facility] Comment on above: Normal < 5.7 % Predi abetic 5.7 - 6.4 % Diabetic >or= 6.5 % Please note range changes. Result Comment: Norm al < 5.7 % Prediabetic 5.7 - 6.4 % Diabetic >or= 6.5 % Please note range changes. Performed By: #### L 100.0100, L501.9985 ####[facility] [address] [place], [address] Immature granulocytes/100 WB C Auto (Bld)Ordered By: Zelda White on 12-09-2024 Immature granulocytes/100 WBC (Bld) 0.300 % 0.0-0.9 [facility] Comment on above: IG% - Immature Granu locytes (promyelocytes, myelocytes and metamyelocytes) > 1% indicates that a LEFT SHIFT is Present. L509.7001on 12-09-2024 Procalcitonin 0.08 ng/mL Normal <=0.10 [facility] Comment on above: Result Comment: Inte rpretation:<0.10-0.25 ng/mL: Antibiotic therapy discouraged. Bacterialinfection unlikely.0.25-0.50 ng/mL: Antibiotic therapy encouraged. Bacterialinfection possible.>0.50 ng/mL: Antibiotic therapy strongly encouraged.Suggestive of presence of bacterial infection.PCT should always be interpreted in the clinical context ofthe patient. Therefore, clinicians should use the PCTresults in conjunction with other laboratory findings andclinical signs of the patient. Performed By: #### L 500.2500, L509.7001 ####[facility] [address] [place], [address] Magnesiumon 12-09-2024 Magnesium [Mass/Vol] 2.2 mg/dL Normal 1.5-2.2 [facility] Comment on above: Order Comment: Comme nts: May add to ED labsComments: may add to ED labs Performed By: #### L 501.2300, L501.5200 ####[facility] [address] [place], [address] Monocyte percentageOrdered B y: White on 12-09-2024 Monocytes/100 WBC (Bld) 9.7 % Normal 0-10 [facility] Comment on above: Performed By: #### L 100.0100, L501.9985 ####[facility] [address] [place], [address] Neutrophil percentageOrdered By: Zelda Fred on 12-09-2024 Neutrophils/100 WBC (Bld) 52.3 % Normal 47-70 [facility] Comment on above: Performed By: #### L 100.0100, L501.9985 ####[facility] [address] [facility] [place], [address] Nucleated red blood cell per centageOrdered By: Zelda Fred on 12-09-2024 Nucleated RBC/100 WBC (Bld) [Ratio] 0 % 0-5 [facility] Phosphoruson 12-09-2024 Phosphate [Mass/Vol] 4.7 mg/dL High 2.7-4.5 [facility] Comment on above: Order Comment: Comme nts: May add to ED labsComments: may add to ED labs Performed By: #### L 501.2300, L501.5200 ####[facility] [address] [facility] [place], [place], [id number] Procalcitonin [Mass/volume] in Serum or Plasma by ImmunoassayOrdered By: Zelda Fred on 12-09-2024 Procalcitonin IA [Mass/Vol] 0.08 ng/mL <0.11 [facility] Comment on above: Interpretation:<0.10 -0.25 ng/mL: Antibiotic therapy discouraged. Bacterial infection unlikely.0.25-0.50 ng/mL: Antibiotic therapy encouraged. Bacterial infection possible.>0.50 ng/mL: Antibiotic therapy strongly encouraged. Suggestive of presence of bacterial infection.PCT should always be interpreted in the clinical context of the patient. Therefore, clinicians should use the PCT results in conjunction with other laboratory findings and clinical signs of the patient. Serum globulin measurementOr dered By: Zelda Fred on 12-09-2024 Globulin (S) [Mass/Vol] 2.8 g/dL Normal 2.2-4.2 [facility] Comment on above: Order Comment: Call MD with results STAT Performed By: #### L 500.4050, L500.2500 ####[facility] [address] [place], [address] Serum or plasma alanine hargrove otransferase (ALT) measurementOrdered By: Zelda Ibarra on 12-09-2024 ALT [Catalytic activity/Vol] 12 U/L Normal <=34 [facility] Comment on above: Hemolysis present, R esults could be affected. Order Comment: Call MD with results STAT Result Comment: Hemo lysis present, Results??could be affected.?? Performed By: #### L 500.4050, L500.2500 ####[facility] [address] [place], [address] Serum or plasma albumin jn urement (mass/volume)Ordered By: Zelda Ibarra on 12-09-2024 Albumin [Mass/Vol] 3.8 g/dL Normal 3.4-4.8 [facility] Comment on above: Order Comment: Call MD with results STAT Performed By: #### L 500.4050, L500.2500 ####[facility] [address] [place], [address] Serum or plasma albumin/glob ulin mass ratioOrdered By: Zelda Ibarra on 12-09-2024 Albumin/Globulin [Mass ratio] 1.4 {ratio} Normal 0.9-2.4 [facility] Comment on above: Order Comment: Call MD with results STAT Performed By: #### L 500.4050, L500.2500 ####[facility] [address] [place], [address] Serum or plasma alkaline regis sphatase measurementOrdered By: Zelda Ibarra on 12-09-2024 ALP [Catalytic activity/Vol] 87 U/L 35-104 [facility] Total proteinOrdered By: Charly Ibarra on 12-09-2024 Protein [Mass/Vol] 6.6 g/dL 5.9-8.4 [facility] Abdomen/Pelvis W IV Cont ONL Yon 12-08-2024 Abdomen/Pelvis W IV Cont ONLY Normal [facility] Absolute lymphocyte countOrd ered By: Miki Sen on 12-08-2024 Lymphocytes Auto (Unsp spec) [#/Vol] 1.80 10*3/uL 0.83-4.51 [facility] Absolute neutrophil countOrd ered By: Miki Sen on 12-08-2024 Neutrophils (Bld) [#/Vol] 5.4 10*3/uL 2.0-7.7 [facility] Anion gap in Serum or Plasma Ordered By: Miki Sen on 12-08-2024 Anion gap [Moles/Vol] 26 mmol/L High 5-15 [facility] Automated blood erythrocyte countOrdered By: Miki Sen on 12-08-2024 RBC (Bld) [#/Vol] 3.72 10*6/uL Low 4.2-5.4 [facility] Comment on above: Performed By: #### L 501.6901, L100.0100, L501.2450, L500.4050 ####[facility] [address] [place], [place], [id number] Automated blood hematocrit ( percentage)Ordered By: Miki Sen on 12-08-2024 Hematocrit (Bld) [Volume fraction] 32.5 % Low 37-47 [facility] Comment on above: Performed By: #### L 501.6901, L100.0100, L501.2450, L500.4050 ####[facility] [address] [place], [address] Automated lymphocyte count a s percentage of total leukocytesOrdered By: Miki Sen on 12-08-2024 Lymphocytes/100 WBC Auto (Unsp spec) 22.8 % 19-41 [facility] BUN/creatinine ratioOrdered By: Miki Sen on 12-08-2024 Urea nitrogen/Creatinine [Mass ratio] 19.5 mg/mg 10-20 [facility] Basophil percentageOrdered B y: Miki Sen on 12-08-2024 Basophils/100 WBC (Bld) 0.6 % Normal 0-1 [facility] Comment on above: Performed By: #### L 501.6901, L100.0100, L501.2450, L500.4050 ####[facility] [address] [place], [address] Bedside Glucoseon 12-08-2024 FINGERSTICK GLU 231 mg/dL High [address] [place] [address] Comment on above: Result Comment: MARIA D GEMENT OF PATIENT CARE PER NURSING PROTOCOL Performed By: #### L 501.080 ####[facility] [address] [place], [address] FINGERSTICK GLU 380 mg/dL High [address] [place] [address] Comment on above: Result Comment: MARIA D GEMENT OF PATIENT CARE PER NURSING PROTOCOL Performed By: #### L 501.080 ####[facility] [address] [place], [address] FINGERSTICK GLU 491 mg/dL Invalid Interpretation Code [address] [place] [address] Comment on above: Result Comment: Dr Lois cooney FollowedMANAGEMENT OF PATIENT CARE PER NURSING PROTOCOL Performed By: #### L 501.080 ####[facility] [address] [place], [address] FINGERSTICK GLU > 500 Invalid Interpretation Code [address] [place] [address] Comment on above: Result Comment: MARIA D GEMENT OF PATIENT CARE PER NURSING PROTOCOL Performed By: #### L 501.080 ####[facility] [address] [place], [address] Beta-Hydroxbytyrateon 2024 BETA-HYDROXYBUT 7.9 mmol/L High 0.0-0.3 [facility] Comment on above: Performed By: #### L 501.6901, L100.0100, L501.2450, L500.4050 ####[facility] [address] [place], [address] Beta-hydroxybutyrateOrdered By: Miki Sen on 12-08-2024 Beta hydroxybutyrate [Mass/Vol] 7.9 mmol/L High 0.0-0.3 [facility] Bilirubin Test strip Ql (U)O rdered By: Miki Sen on 12-08-2024 Bilirubin Ql (U) Negative Negative [facility] Bilirubin, totalOrdered By: Miki Sen on 12-08-2024 Bilirubin [Mass/Vol] 0.25 mg/dL Normal 0.00-1.30 [facility] Comment on above: Performed By: #### L 501.6901, L100.0100, L501.2450, L500.4050 ####[facility] [address] [place], [address] CBC W/Diff, Automatedon 06 Absolute Lymph 1.80 X10 3/uL Normal 0.83-4.51 [facility] Comment on above: Performed By: #### L 501.6901, L100.0100, L501.2450, L500.4050 ####[facility] [address] [place], [address] Absolute Neut 5.4 X10 3/uL Normal 2.0-7.7 [facility] Comment on above: Performed By: #### L 501.6901, L100.0100, L501.2450, L500.4050 ####[facility] [address] [place], [address] IG% 0.300 Normal 0.0-0.9 [facility] Comment on above: Result Comment: IG% - Immature Granulocytes (promyelocytes, myelocytes andmetamyelocytes) > 1% indicates that a LEFT SHIFT is Present. Performed By: #### L 501.6901, L100.0100, L501.2450, L500.4050 ####[facility] [address] [place], [address] Lymphocytes/100 WBC (Bld) 22.8 % Normal 19-41 [facility] Comment on above: Performed By: #### L 501.6901, L100.0100, L501.2450, L500.4050 ####[facility] [address] [place], [address] Nucleated RBC (Bld) [#/Vol] 0 10*3/uL Normal 0-5 [facility] Comment on above: Performed By: #### L 501.6901, L100.0100, L501.2450, L500.4050 ####[facility] [address] [place], [address] RDW SD 39.8 fl Normal 35.1-43.9 [facility] Comment on above: Performed By: #### L 501.6901, L100.0100, L501.2450, L500.4050 ####[facility] [address] [place], [address] CO2 (BldV) [Moles/Vol]Ordere d By: Miki Sen on 12-08-2024 CO2 [Moles/Vol] 14 mmol/L Low 23-33 [facility] Carbon dioxide, total [Moles /volume] in Central venous bloodOrdered By: Miki Sen on 12-08-2024 CO2 [Moles/Vol] 12.2 mmol/L Low 21.0-32.0 [facility] Comment on above: Performed By: #### L 501.6901, L100.0100, L501.2450, L500.4050 ####[facility] [address] [place], [address] Chloride assayOrdered By: Seng Sen on 12-08-2024 Chloride [Moles/Vol] 90 mmol/L Low 98-108 [facility] Comment on above: Performed By: #### L 501.6901, L100.0100, L501.2450, L500.4050 ####[facility] [address] [place], [address] Comprehensive Metabolic Prof ilon 12-08-2024 ALK PHOS 108 U/L High 35-104 [facility] Comment on above: Performed By: #### L 501.6901, L100.0100, L501.2450, L500.4050 ####[facility] [address] [place], [address] BUN/CRE 19.5 RATIO Normal 10-20 [facility] Comment on above: Performed By: #### L 501.6901, L100.0100, L501.2450, L500.4050 ####[facility] [address] [place], [address] ECRCL 35.48 ml/min Low 50-250 [facility] Comment on above: Performed By: #### L 501.6901, L100.0100, L501.2450, L500.4050 ####[facility] [address] [place], [address] GAP 26 High 5-15 [facility] Comment on above: Performed By: #### L 501.6901, L100.0100, L501.2450, L500.4050 ####[facility] [address] [place], [address] Potassium [Moles/Vol] 4.9 mmol/L Normal 3.3-5.1 [facility] Comment on above: Performed By: #### L 501.6901, L100.0100, L501.2450, L500.4050 ####[facility] [address] [place], [address] T PROT 7.5 g/dL Normal 5.9-8.4 [facility] Comment on above: Performed By: #### L 501.6901, L100.0100, L501.2450, L500.4050 ####[facility] [address] [place], [address] Comprehensive Metabolic Prof ilOrdered By: Miki Sen on 12-08-2024 AST [Catalytic activity/Vol] 13 U/L Normal <=31 [facility] Comment on above: Performed By: #### L 501.6901, L100.0100, L501.2450, L500.4050 ####[facility] [address] [place], [address] Emergency Department Summary on 12-08-2024 Emergency Department Summary Normal [facility] Eosinophil percentageOrdered By: Miki Sen on 12-08-2024 Eosinophils/100 WBC (Bld) 0.9 % Normal 0-5 [facility] Comment on above: Performed By: #### L 501.6901, L100.0100, L501.2450, L500.4050 ####[facility] [address] [place], [address] Erythrocyte distribution wid th ratioOrdered By: Miki Sen on 12-08-2024 Erythrocyte distribution width (RBC) [Ratio] 12.5 % Normal 11.6-14.6 [facility] Comment on above: Performed By: #### L 501.6901, L100.0100, L501.2450, L500.4050 ####[facility] [address] [place], [address] Erythrocyte distribution wid th standard deviationOrdered By: Miki Sen on 12-08-2024 Erythrocyte distribution width (RBC) [Ratio] 39.8 fl 35.1-43.9 [facility] Glomerular filtration rate ( GFR) estimation/1.73 sq m using serum, plasma, or whole bOrdered By: Miki Sen on 12-08-2024 GFR/1.73 sq M.predicted among non-blacks MDRD (S/P/Bld) [Vol rate/Area] 44 mL/min/{1.73_m2} Low >60 [facility] Comment on above: mL/min/1.73m2 CKD-EP I Creatinine Equation (2020) Result Comment: mL/m in/1.73m2 CKD-EPI Creatinine Equation (2020) Performed By: #### L 501.6901, L100.0100, L501.2450, L500.4050 ####[facility] [address] [place], [address] [facility] deOrdered By: Miki Sen on 12-08-2024 Glucose [Mass/Vol] 231 mg/dL High 74-106 [facility] Comment on above: MANAGEMENT OF PATIEN T CARE PER NURSING PROTOCOL Hemoglobin measurementOrdere d By: Miki Sen on 12-08-2024 Hemoglobin (Bld) [Mass/Vol] 11.0 g/dL Low 12.0-15.0 [facility] Comment on above: Performed By: #### L 501.6901, L100.0100, L501.2450, L500.4050 ####[facility] [address] [place], [address] Immature granulocytes/100 WB C Auto (Bld)Ordered By: Miki Sen on 12-08-2024 Immature granulocytes/100 WBC (Bld) 0.300 % 0.0-0.9 [facility] Comment on above: IG% - Immature Granu locytes (promyelocytes, myelocytes and metamyelocytes) > 1% indicates that a LEFT SHIFT is Present. Ketones Test strip Ql (U)Ord ered By: Miki Sen on 12-08-2024 Ketones Ql (U) 150 mg/dl Abnormal Negative [facility] Comment on above: CRITICAL VALUE *HRES ULTS CALLED TO LSPARR 12/08/24 2245 Daniela Seth.REPORT READ BACK BY SAME. Lipase measurementOrdered By : Miki Sen on 12-08-2024 Lipase [Catalytic activity/Vol] 49 U/L Normal 13-75 [facility] Comment on above: Please note:LIPASE r evised reference range effective 22. New Lipase methodology. Expected to produce lower values than the previous assay method. NEW Reference Range: 13 - 75 U/L Result Comment: iLndy gabriel note:LIPASE revised reference range effective 22.New Lipase methodology. Expected to produce lower valuesthan the previous assay method.NEW Reference Range: 13 - 75 U/L Performed By: #### L 501.6901, L100.0100, L501.2450, L500.4050 ####[facility] [address] [place], [address] MCV (mean corpuscular volume ) determinationOrdered By: Miki Sen on 12-08-2024 MCV (RBC) [Entitic vol] 87.4 fL Normal 81-99 [facility] Comment on above: Performed By: #### L 501.6901, L100.0100, L501.2450, L500.4050 ####[facility] [address] [place], [address] Magnesium measurement (mass/ volume)Ordered By: Zelda Ibarra on 12-08-2024 Magnesium (Unsp spec) [Mass/Vol] 2.2 mg/dL 1.5-2.2 [facility] Mean corpuscular hemoglobin (MCH) determinationOrdered By: Miki Sen on 12-08-2024 MCH (RBC) [Entitic mass] 29.6 pg Normal 27.0-32.0 [facility] Comment on above: Performed By: #### L 501.6901, L100.0100, L501.2450, L500.4050 ####[facility] [address], [address] Mean corpuscular hemoglobin concentration (MCHC) determinationOrdered By: Miki Sen on 12-08-2024 MCHC (RBC) [Mass/Vol] 33.8 g/dL Normal 32-36 [facility] Comment on above: Performed By: #### L 501.6901, L100.0100, L501.2450, L500.4050 ####[facility] [address] [place], [address] Mean platelet volume determi nationOrdered By: Miki Sen on 12-08-2024 Platelet mean volume (Bld) [Entitic vol] 12.8 fL High 6.2-12.0 [facility] Comment on above: Performed By: #### L 501.6901, L100.0100, L501.2450, L500.4050 ####[facility] [address] [place], [place], [address] Microscopic analysis of urin e for red blood cells (RBC)Ordered By: Miki Sen on 12-08-2024 Microscopic analysis of urine for red blood cells (RBC) 0 SEEN /hpf 0-5 [facility] Monocyte percentageOrdered B y: Miki Sen on 12-08-2024 Monocytes/100 WBC (Bld) 7.7 % Normal 0-10 [facility] Comment on above: Performed By: #### L 501.6901, L100.0100, L501.2450, L500.4050 ####[facility] [address] [place], [place], [address] Mucus LM Ql (Urine sed)Order ed By: Miki Sen on 12-08-2024 Mucus Ql (Urine sed) 0 SEEN /hpf [facility] Neutrophil percentageOrdered By: Miki Sen on 12-08-2024 Neutrophils/100 WBC (Bld) 67.7 % Normal 47-70 [facility] Comment on above: Performed By: #### L 501.6901, L100.0100, L501.2450, L500.4050 ####[facility] [address] [place], [place], [id number] Nitrite Test strip Ql (U)Ord ered By: Miki Sen on 12-08-2024 Nitrite Ql (U) Negative Negative [facility] No Panel InformationOrdered By: Miki Sen on 12-08-2024 Blood Gas Sample Site Not entered [facility] Blood Gas Specimen Type LIZY [facility] Oxygen Delivery Device Not entered [facility] Nucleated red blood cell per centageOrdered By: Miki Sen on 12-08-2024 Nucleated RBC/100 WBC (Bld) [Ratio] 0 % 0-5 [facility] Platelet countOrdered By: Seng Sen on 12-08-2024 Platelets (Bld) [#/Vol] 230 10*3/uL Normal 150-450 [facility] Comment on above: Performed By: #### L 501.6901, L100.0100, L501.2450, L500.4050 ####[facility] [address] [place], [address] Potassium measurement (mass/ volume)Ordered By: Miki Sen on 12-08-2024 Potassium (Unsp spec) [Mass/Vol] 4.9 mmol/L 3.3-5.1 [facility] Protein Test strip Ql (U)Ord ered By: Miki Sen on 12-08-2024 Protein Ql (U) 30 mg/dl High Negative [facility] Serum creatinine measurement (mass/volume)Ordered By: Miki Sen on 12-08-2024 Creatinine [Mass/Vol] 1.36 mg/dL High 0.70-1.20 [facility] Comment on above: Performed By: #### L 501.6901, L100.0100, L501.2450, L500.4050 ####[facility] [address] [place], [address] Serum globulin measurementOr dered By: Miki Sen on 12-08-2024 Globulin (S) [Mass/Vol] 3.2 g/dL Normal 2.2-4.2 [facility] Comment on above: Performed By: #### L 501.6901, L100.0100, L501.2450, L500.4050 ####[facility] [address] [place], [address] Serum glucose measurement (m ass/volume)Ordered By: Miki Sen on 12-08-2024 Glucose [Mass/Vol] 592 mg/dL Invalid Interpretation Code 70-99 [facility] Comment on above: Critical Result(s) C alled at: 2146 by: RANI LOLLO TO APOLONIA SPARR Results read back by same. Result Comment: Crit ical Result(s) Called at: 2146 by: RANI MELISSA TO UMAIRPARR??Results read back by same. Performed By: #### L 501.6901, L100.0100, L501.2450, L500.4050 ####[facility] [address] [place], [address] Serum or plasma alanine hargrove otransferase (ALT) measurementOrdered By: Miki Sen on 12-08-2024 ALT [Catalytic activity/Vol] 14 U/L Normal <=34 [facility] Comment on above: Performed By: #### L 501.6901, L100.0100, L501.2450, L500.4050 ####[facility] [address] [place], [address] Serum or plasma albumin jn urement (mass/volume)Ordered By: Miki Sen on 12-08-2024 Albumin [Mass/Vol] 4.3 g/dL Normal 3.4-4.8 [facility] Comment on above: Performed By: #### L 501.6901, L100.0100, L501.2450, L500.4050 ####[facility] [address] [place], [address] Serum or plasma albumin/glob ulin mass ratioOrdered By: Miki Sen on 12-08-2024 Albumin/Globulin [Mass ratio] 1.4 {ratio} Normal 0.9-2.4 [facility] Comment on above: Performed By: #### L 501.6901, L100.0100, L501.2450, L500.4050 ####[facility] [address] [place], [address] Serum or plasma alkaline regis sphatase measurementOrdered By: Miki Sen on 12-08-2024 ALP [Catalytic activity/Vol] 108 U/L High 35-104 [facility] Serum or plasma calcium jn urement (mass/volume)Ordered By: Miki Sen on 12-08-2024 Calcium [Mass/Vol] 9.7 mg/dL Normal 7.6-11.0 [facility] Comment on above: Performed By: #### L 501.6901, L100.0100, L501.2450, L500.4050 ####[facility] [address] [place], [address] Serum or plasma urea nitroge n measurement (mass/volume)Ordered By: Miki Sen on 12-08-2024 Urea nitrogen [Mass/Vol] 27 mg/dL High 4-19 [facility] Comment on above: Performed By: #### L 501.6901, L100.0100, L501.2450, L500.4050 ####[facility] [address] [place], [address] Sodium levelOrdered By: Sharita Sen on 12-08-2024 Sodium [Moles/Vol] 128 mmol/L Low 133-145 [facility] Comment on above: Performed By: #### L 501.6901, L100.0100, L501.2450, L500.4050 ####[facility] [address] [place], [address] Squamous epithelial cells de tection in urine sediment by light microscopyOrdered By: Miki Sen on 12-08-2024 Epithelial cells.squamous LM Ql (Urine sed) 0 SEEN /hpf 11-13 [facility] Total proteinOrdered By: King Sen on 12-08-2024 Protein [Mass/Vol] 7.5 g/dL 5.9-8.4 [facility] Urinalysis, Completeon 12-08 BACTERIA 0 SEEN Normal None Seen [facility] Comment on above: Order Comment: CLEAN CATCH Performed By: #### L 400.0001 ####[facility] [address] [place], [address] EPI,SQUAMOUS 0 SEEN Normal 11-13 [facility] Comment on above: Order Comment: CLEAN CATCH Performed By: #### L 400.0001 ####[facility] [address] [place], [address] Mucus Ql (Urine sed) 0 SEEN Normal [facility] Comment on above: Order Comment: CLEAN CATCH Performed By: #### L 400.0001 ####[facility] [address] [facility] [address] RBC 0 SEEN Normal 0-5 [facility] Comment on above: Order Comment: CLEAN CATCH Performed By: #### L 400.0001 ####[facility] [address] [place], [address] WBC 0 SEEN Normal 0-5 [facility] Comment on above: Order Comment: CLEAN CATCH Performed By: #### L 400.0001 ####[facility] [address] [place], [place], [address] Urine clarityOrdered By: King Sen on 12-08-2024 Clarity (U) Clear Clear [facility] Urine color determinationOrd ered By: Miki Sen on 12-08-2024 Color (U) Yellow Yellow [facility] Urine glucose detectionOrder ed By: Miki Sen on 12-08-2024 Glucose Ql (U) 1000 mg/dl High Normal [facility] Urine leukocyte esterase det ection by dipstickOrdered By: Miki Sen on 12-08-2024 Leukocyte esterase Test strip Ql (U) Negative Negative [facility] Urine pHOrdered By: Miki lieberman on 12-08-2024 pH (U) 6.0 [pH] 5.0 - 8.0 [facility] Urine sediment bacteria coun t by microscopy (number/high power field)Ordered By: Miki Sen on 12-08-2024 Bacteria LM.HPF (Urine sed) [#/Area] 0 /[HPF] None Seen [facility] Urine specific gravity measu rementOrdered By: Miki Sen on 12-08-2024 Specific gravity (U) [Rel density] 1.015 1.002-1.030 [facility] Urine urobilinogen measureme ntOrdered By: Miki Sen on 12-08-2024 Urobilinogen Ql (U) Normal mg/dl Normal [facility] Venous Blood Gason 5 Blood Gas Type LIZY [facility] Comment on above: Performed By: #### L 9000.0810 ####[facility] [address] [place], [address] CO2 [Moles/Vol] 14 mmol/L Low 23-33 [facility] Comment on above: Performed By: #### L 9000.0810 ####[facility] [address] [place], [address] HCO3 (Bld) [Moles/Vol] 13 mmol/L Low 22-26 [facility] Comment on above: Performed By: #### L 9000.0810 ####[facility] [address] [place], [address] O2 Delivery Dev Not entered [facility] Comment on above: Performed By: #### L 9000.0810 ####[facility] [address] [place], [address] SITE Not entered [facility] Comment on above: Performed By: #### L 9000.0810 ####[facility] [address] [place], [address] VBG BE -15 mmol/L Low -1.0-3.5 [facility] Comment on above: Performed By: #### L 9000.0810 ####[facility] [address] [place], [address] VBG pCO2 31.1 mmHg Low 41-51 [facility] Comment on above: Performed By: #### L 9000.0810 ####[facility] [address] [place], [address] VBG pH 7.21 Low 7.32-7.42 [facility] Comment on above: Performed By: #### L 9000.0810 ####[facility] [address] [place], [place], [address] VBG PO2 31 mmHg Normal 25-40 [facility] Comment on above: Performed By: #### L 9000.0810 ####[facility] [address] [place], [place], [address] VBG SO2 47 Low 50-70 [facility] Comment on above: Performed By: #### L 9000.0810 ####[facility] [address] [place], [place], [address] Venous blood base excess tristan surementOrdered By: Miki Sen on 12-08-2024 Base excess Calc (BldV) [Moles/Vol] -15 mmol/L Low -1.0-3.5 [facility] Venous blood bicarbonate tristan surementOrdered By: Miki Sen on 12-08-2024 HCO3 (Bld) [Moles/Vol] 13 mmol/L Low 22-26 [facility] Venous blood oxygen saturati on measurementOrdered By: Miki Sen on 12-08-2024 Oxygen saturation in Blood 47 % Low 50-70 [facility] Venous blood pH measurementO rdered By: Miki Sen on 12-08-2024 pH (BldV) 7.21 [pH] Low 7.32-7.42 [facility] Venous blood partial pressur e of carbon dioxide measurementOrdered By: Miki Sen on 12-08-2024 CO2 (BldV) [Partial pressure] 31.1 mm[Hg] Low 41-51 [facility] Venous blood partial pressur e of oxygen measurementOrdered By: Miki Sen on 12-08-2024 Oxygen (BldV) [Partial pressure] 31 mm[Hg] 25-40 [facility] White blood cell (WBC) count Ordered By: Miki Sen on 12-08-2024 WBC (Bld) [#/Vol] 7.9 10*3/uL Normal 4.4-11.0 [facility] Comment on above: Performed By: #### L 501.6901, L100.0100, L501.2450, L500.4050 ####[facility] [address] [place], [place], [id number] White blood cell countOrdere d By: Miki Sen on 12-08-2024 White blood cell count 0 SEEN /hpf 0-5 [facility] Albumin DL <= 20 mg/L (U) [M ass/Vol]Ordered By: Milind Lamb on 10-18-2024 Urine Random Microalbumin 34.1 mg/L NO RANGE EST. [facility] Anion gap in Serum or Plasma Ordered By: Milind Lamb on 10-18-2024 Anion gap [Moles/Vol] 14 mmol/L 11-18 [facility] BUN/creatinine ratioOrdered By: Milind Lamb on 10-18-2024 Urea nitrogen/Creatinine [Mass ratio] 12.4 mg/mg 10 [facility] Bilirubin, totalOrdered By: Milind Lamb on 10-18-2024 Bilirubin [Mass/Vol] 0.28 mg/dL 0.00-1.30 [facility] Calculated very low density lipoprotein (VLDL) cholesterol measurementOrdered By: Milind Lamb on 10-18-2024 Calculated very low density lipoprotein (VLDL) cholesterol measurement 23 mg/dL -40 [facility] VLDL Cholesterol 23 mg/dL [facility] Carbon dioxide, total [Moles /volume] in Central venous bloodOrdered By: Milind Lamb on 10-18-2024 CO2 [Moles/Vol] 23.5 mmol/L 21.0-32.0 [facility] Chloride assayOrdered By: Pankaj Lamb on 10-18-2024 Chloride [Moles/Vol] 100 mmol/L 98-108 [facility] Comprehensive Metabolic Prof ilon 10-18-2024 Albumin [Mass/Vol] 4.7 g/dL Normal 3.4-4.8 [facility] Comment on above: Performed By: #### L 500.4100, L500.4050, L502.0250 ####[facility] [address] [place], [address] Albumin/Globulin [Mass ratio] 1.4 {ratio} Normal 0.9-2.4 [facility] Comment on above: Performed By: #### L 500.4100, L500.4050, L502.0250 ####[facility] [address] [place], [address] ALK PHOS 94 U/L Normal 35-104 [facility] Comment on above: Performed By: #### L 500.4100, L500.4050, L502.0250 ####[facility] [address] [place], [address] ALT [Catalytic activity/Vol] 10 U/L Normal <=34 [facility] Comment on above: Performed By: #### L 500.4100, L500.4050, L502.0250 ####[facility] [address] [place], [address] AST [Catalytic activity/Vol] 13 U/L Normal <=31 [facility] Comment on above: Performed By: #### L 500.4100, L500.4050, L502.0250 ####[facility] [address] [place], [address] Bilirubin [Mass/Vol] 0.28 mg/dL Normal 0.00-1.30 [facility] Comment on above: Performed By: #### L 500.4100, L500.4050, L502.0250 ####[facility] [address] [place], [address] BUN/CRE 12.4 RATIO Normal 10-20 [facility] Comment on above: Performed By: #### L 500.4100, L500.4050, L502.0250 ####[facility] [address] [place], [address] Calcium [Mass/Vol] 10.3 mg/dL Normal 7.6-11.0 [facility] Comment on above: Performed By: #### L 500.4100, L500.4050, L502.0250 ####[facility] [address] [place], [address] Chloride [Moles/Vol] 100 mmol/L Normal 98-108 [facility] Comment on above: Performed By: #### L 500.4100, L500.4050, L502.0250 ####[facility] [address] [place], [address] CO2 [Moles/Vol] 23.5 mmol/L Normal 21.0-32.0 [facility] Comment on above: Performed By: #### L 500.4100, L500.4050, L502.0250 ####[facility] [address] [place], [address] Creatinine [Mass/Vol] 0.94 mg/dL Normal 0.70-1.20 [facility] Comment on above: Performed By: #### L 500.4100, L500.4050, L502.0250 ####[facility] [address] [place], [address] GAP 14 Normal 5-15 [facility] Comment on above: Performed By: #### L 500.4100, L500.4050, L502.0250 ####[facility] [address] [place], [address] GFR/1.73 sq M.predicted among non-blacks MDRD (S/P/Bld) [Vol rate/Area] 68 mL/min/{1.73_m2} Normal >60 [facility] Comment on above: Result Comment: mL/m in/1.73m2 CKD-EPI Creatinine Equation (2020) Performed By: #### L 500.4100, L500.4050, L502.0250 ####[facility] [address] [place], [address] Globulin (S) [Mass/Vol] 3.3 g/dL Normal 2.2-4.2 [facility] Comment on above: Performed By: #### L 500.4100, L500.4050, L502.0250 ####[facility] [address] [place], [address] Glucose [Mass/Vol] 213 mg/dL High 70-99 [facility] Comment on above: Performed By: #### L 500.4100, L500.4050, L502.0250 ####[facility] [address] [place], [address] Potassium [Moles/Vol] 4.1 mmol/L Normal 3.3-5.1 [facility] Comment on above: Performed By: #### L 500.4100, L500.4050, L502.0250 ####[facility] [address] [place], [address] Sodium [Moles/Vol] 137 mmol/L Normal 133-145 [facility] Comment on above: Performed By: #### L 500.4100, L500.4050, L502.0250 ####[facility] [address] [place], [address] T PROT 8.1 g/dL Normal 5.9-8.4 [facility] Comment on above: Performed By: #### L 500.4100, L500.4050, L502.0250 ####[facility] [address] [place], [address] Urea nitrogen [Mass/Vol] 12 mg/dL Normal 4-19 [facility] Comment on above: Performed By: #### L 500.4100, L500.4050, L502.0250 ####[facility] [address] [place], [address] Creatinine Unsp time (U) [Ma ss/Vol]Ordered By: Milind Lamb on 10-18-2024 Creatinine (U) [Mass/Vol] 168.00 mg/dL 28.00-217.0 0 [facility] GFR/1.73 sq M.predicted raoul g non-blacks MDRD (S/P/Bld) [Vol rate/Area]Ordered By: Milind Lamb on 10-18-2024 Estimated GFR (MDRD) Non-Af Amer 68 >60 [facility] Comment on above: mL/min/1.73m2 CKD-EP I Creatinine Equation (2020) Glomerular filtration rate ( GFR) estimation/1.73 sq m using serum, plasma, or whole bOrdered By: Milind Lamb on 10-18-2024 GFR/1.73 sq M.predicted among non-blacks MDRD (S/P/Bld) [Vol rate/Area] 68 mL/min/{1.73_m2} >60 [facility] Comment on above: mL/min/1.73m2 CKD-EP I Creatinine Equation (2020) LDL calc ser/plasOrdered By: Milind Lamb on 10-18-2024 Cholesterol in LDL [Mass/Vol] 136 mg/dL [facility] Comment on above: Boumyjatgv=471-514 m g/dL & Higher Umuk=537 mg/dL or greater LDL Cholesterol, Calculated 136 mg/dL [facility] Comment on above: Eicwuzrtcf=411-581 m g/dL & Higher Dylk=693 mg/dL or greater Laboratory - Chemistry and C hemistry - challengeOrdered By: Milind Lamb on 10-18-2024 AST [Catalytic activity/Vol] 13 U/L <32 [facility] Lipid Profileon 10-18-2024 CHOL:HDL 3.13 Normal [facility] Comment on above: Performed By: #### L 500.4100, L500.4050, L502.0250 ####[facility] [address], [address] Cholesterol [Mass/Vol] 233 mg/dL High <=200 [facility] Comment on above: Result Comment: Chol esterol level, Desirable <200 mg/dLBorderline high cholesterol 200-239 mg/dLHigh cholesterol >=240 mg/dLRecommendations of the NCEP Adult Treatment Panel for thefollowing risk-cutoff thresholds for the [place] Americanpulation. Performed By: #### L 500.4100, L500.4050, L502.0250 ####[facility] [address] [place], [address] Cholesterol in HDL [Mass/Vol] 74 mg/dL Normal [facility] Comment on above: Result Comment: Kamila onal Cholesterol Education Program (NCEP) guidelines:<40 mg/dL: Low HDL-cholesterol (major risk factor for CHD)>= 60 mg/dL: High HDL-cholesterol (negative risk factor forCHD)HDL-cholesterol is affected by a number of factors, e.g.smoking, exercise, hormones, sex and age. Performed By: #### L 500.4100, L500.4050, L502.0250 ####[facility] [address] [place], [address] Cholesterol in LDL [Mass/Vol] 136 mg/dL Normal [facility] Comment on above: Result Comment: Bord ficnus=371-129 mg/dL Higher Xkfg=239 mg/dL or greater Performed By: #### L 500.4100, L500.4050, L502.0250 ####[facility] [address] [place], [address] Cholesterol in VLDL [Mass/Vol] 23 mg/dL Normal 5-40 [facility] Comment on above: Performed By: #### L 500.4100, L500.4050, L502.0250 ####[facility] [address] [place], [address] Triglyceride [Mass/Vol] 115 mg/dL Normal [facility] Comment on above: Result Comment: The drugs N-Acetylcysteine and Metamizole may falselydepress this assay.Normal range: <150 mg/dLBorderline High: 150-199 mg/dLHigh: 200-499 mg/dLVery High: >500 mg/dL Performed By: #### L 500.4100, L500.4050, L502.0250 ####[facility] [address] [place], [place], [address] Microalbumin/creat ratio urO rdered By: Milind Lamb on 10-18-2024 Urine Microalbumin/Creatinine Ratio 203.0 mg/g CRE [facility] Potassium (Unsp spec) [Mass/ Vol]Ordered By: Milind Lamb on 10-18-2024 Potassium [Moles/Vol] 4.1 mmol/L 3.3-5.1 [facility] Potassium measurement (mass/ volume)Ordered By: Milind Lamb on 10-18-2024 Potassium (Unsp spec) [Mass/Vol] 4.1 mmol/L 3.3-5.1 [facility] Random urine creatinine jn urement (mass/volume)Ordered By: Milind Lamb on 10-18-2024 Creatinine Unsp time (U) [Mass/Vol] 168.00 mg/dL 28.00-217.0 0 [facility] Screening total cholesterol/ high density lipoprotein (HDL) cholesterol ratioOrdered By: Milind Lamb on 10-18-2024 Cholesterol.total/Misa sterol in HDL [Mass ratio] 3.13 {ratio} [facility] Serum creatinine measurement (mass/volume)Ordered By: Milind Lamb on 10-18-2024 Creatinine [Mass/Vol] 0.94 mg/dL 0.70-1.20 [facility] Serum globulin measurementOr dered By: Milind Lamb on 10-18-2024 Globulin (S) [Mass/Vol] 3.3 g/dL 2.2-4.2 [facility] Serum glucose measurement (m ass/volume)Ordered By: Milind Lamb on 10-18-2024 Glucose [Mass/Vol] 213 mg/dL High 70-99 [facility] Serum or plasma alanine hargrove otransferase (ALT) measurementOrdered By: Milind Lamb on 10-18-2024 ALT [Catalytic activity/Vol] 10 U/L <35 [facility] Serum or plasma albumin jn urement (mass/volume)Ordered By: Milind Lamb on 10-18-2024 Albumin [Mass/Vol] 4.7 g/dL 3.4-4.8 [facility] Serum or plasma albumin/glob ulin mass ratioOrdered By: Milind Lamb on 10-18-2024 Albumin/Globulin [Mass ratio] 1.4 {ratio} 0.9-2.4 [facility] Serum or plasma alkaline regis sphatase measurementOrdered By: Milind Lamb on 10-18-2024 ALP [Catalytic activity/Vol] 94 U/L 35-104 [facility] Serum or plasma calcium jn urement (mass/volume)Ordered By: Milind Lamb on 10-18-2024 Calcium [Mass/Vol] 10.3 mg/dL 7.6-11.0 [facility] Serum or plasma cholesterol in HDL measurement (mass/volume)Ordered By: Milind Lamb on 10-18-2024 Cholesterol in HDL [Mass/Vol] 74 mg/dL >40 [facility] Comment on above: National Cholesterol Education Program (NCEP) guidelines:<40 mg/dL: Low HDL-cholesterol (major risk factor for CHD)>= 60 mg/dL: High HDL-cholesterol (negative risk factor for CHD)HDL-cholesterol is affected by a number of factors, e.g. smoking, exercise, hormones, sex and age. Serum or plasma cholesterol measurement (mass/volume)Ordered By: Milind Lamb on 10-18-2024 Cholesterol [Mass/Vol] 233 mg/dL High <201 [facility] Comment on above: Cholesterol level, D esirable <200 mg/dLBorderline high cholesterol 200-239 mg/dLHigh cholesterol >=240 mg/dLRecommendations of the NCEP Adult Treatment Panel for the following risk-cutoff thresholds for the [place] Cymraes population. Serum or plasma urea nitroge n measurement (mass/volume)Ordered By: Milind Lamb on 10-18-2024 Urea nitrogen [Mass/Vol] 12 mg/dL 4-19 [facility] Sodium levelOrdered By: Milind Lamb on 10-18-2024 Sodium [Moles/Vol] 137 mmol/L 133-145 [facility] Total proteinOrdered By: Bri Lamb on 10-18-2024 Protein [Mass/Vol] 8.1 g/dL 5.9-8.4 [facility] Triglycerides measurementOrd ered By: Milind Lamb on 10-18-2024 Triglyceride [Mass/Vol] 115 mg/dL <199 [facility] Comment on above: The drugs N-Acetylcy steine and Metamizole may falsely depress this assay. Normal range: <150 mg/dLBorderline High: 150-199 mg/dLHigh: 200-499 mg/dLVery High: >500 mg/dL Urine albumin measurement wi th detection limit of 20 mg/L or less (mass/volume)Ordered By: Milind Lamb on 10-18-2024 Albumin DL <= 20 mg/L (U) [Mass/Vol] 34.1 mg/L NO RANGE EST. [facility] Office Visit Reporton 2024 Office Visit Report Normal [facility] Albumin to globulin ratioOrd ered By: Milind aLmb on 07-20-2024 Albumin/Globulin [Mass ratio] 1.0 {ratio} 0.9-2.4 [facility] Bilirubin, totalOrdered By: Milind Lamb on 07-20-2024 Bilirubin [Mass/Vol] 0.50 mg/dL 0.20-1.00 [facility] Comment on above: For patients on eltr ombopag therapy, use of Dimension [place] TBIL is not recommended. Blood urea nitrogen (BUN)/cr eatinine ratioOrdered By: Milind Lamb on 07-20-2024 Urea nitrogen/Creatinine [Mass ratio] 23.7 mg/mg High 10-20 [facility] Carbon dioxide measurementOr dered By: Milind Lamb on 07-20-2024 CO2 [Moles/Vol] 29.0 mmol/L 21.0-32.0 [facility] Chloride measurementOrdered By: Milind Lamb on 07-20-2024 Chloride [Moles/Vol] 104 mmol/L 98-107 [facility] Comprehensive Metabolic Prof ilon 07-20-2024 Albumin [Mass/Vol] 3.7 g/dL Normal 3.2-5.0 [facility] Comment on above: Performed By: #### L 500.4050, L501.0900, L500.4100, L501.9981 ####[facility] [address] [place], [address] Albumin/Globulin [Mass ratio] 1.0 {ratio} Normal 0.9-2.4 [facility] Comment on above: Performed By: #### L 500.4050, L501.0900, L500.4100, L501.9985 ####[facility] [address] [place], [address] ALK P 91 U/L Normal 45-117 [facility] Comment on above: Performed By: #### L 500.4050, L501.0900, L500.4100, L501.9985 ####[facility] [address] [place], [address] ALT [Catalytic activity/Vol] 11 U/L Low 13-56 [facility] Comment on above: Performed By: #### L 500.4050, L501.0900, L500.4100, L501.9985 ####[facility] [address] [place], [address] AST [Catalytic activity/Vol] 4 U/L Low 15-37 [facility] Comment on above: Performed By: #### L 500.4050, L501.0900, L500.4100, L501.9985 ####[facility] [address] [place], [address] Bilirubin [Mass/Vol] 0.50 mg/dL Normal 0.20-1.00 [facility] Comment on above: Result Comment: For patients on eltrombopag therapy, use of Dimension [place] TBIL is not recommended. Performed By: #### L 500.4050, L501.0900, L500.4100, L501.9985 ####[facility] [address] [place], [address] BUN/CRE 23.7 RATIO High 10-20 [facility] Comment on above: Performed By: #### L 500.4050, L501.0900, L500.4100, L501.9985 ####[facility] [address] [place], [address] CA,Total 10.2 mg/dL High 8.5-10.1 [facility] Comment on above: Performed By: #### L 500.4050, L501.0900, L500.4100, L501.9985 ####[facility] [address] [place], [address] Chloride [Moles/Vol] 104 mmol/L Normal 98-107 [facility] Comment on above: Performed By: #### L 500.4050, L501.0900, L500.4100, L501.9985 ####[facility] [address] [place], [address] CO2 [Moles/Vol] 29.0 mmol/L Normal 21.0-32.0 [facility] Comment on above: Performed By: #### L 500.4050, L501.0900, L500.4100, L501.9985 ####[facility] [address] [place], [address] Creatinine [Mass/Vol] 0.76 mg/dL Normal 0.55-1.02 [facility] Comment on above: Result Comment: The validity of the calculated GFR GFRAA in patients over70 years has not been determined. Clinical correlation isessential. Performed By: #### L 500.4050, L501.0900, L500.4100, L501.9985 ####[facility] [address] [place], [address] EST GFR - AA 99 mL/min Normal >60 [facility] Comment on above: Result Comment: Afri can Cymraes GFR Calc Performed By: #### L 500.4050, L501.0900, L500.4100, L501.9985 ####[facility] [address] [place], [address] GAP 5 Normal 5-15 [facility] Comment on above: Performed By: #### L 500.4050, L501.0900, L500.4100, L501.9985 ####[facility] [address] [place], [address] GFR/1.73 sq M.predicted among non-blacks MDRD (S/P/Bld) [Vol rate/Area] 82 mL/min/{1.73_m2} Normal >60 [facility] Comment on above: Result Comment: Non- GFR Calc Performed By: #### L 500.4050, L501.0900, L500.4100, L501.9985 ####[facility] [address] [place], [address] Globulin (S) [Mass/Vol] 3.8 g/dL Normal 2.2-4.2 [facility] Comment on above: Performed By: #### L 500.4050, L501.0900, L500.4100, L501.9985 ####[facility] [address] [place], [address] Glucose [Mass/Vol] 101 mg/dL Normal 74-106 [facility] Comment on above: Result Comment: Fast ing Glucose result from 100 to 125 mg/dLsuggests IMPAIRED HOMEOSTASIS per A.D.A. criteria. Performed By: #### L 500.4050, L501.0900, L500.4100, L501.9985 ####[facility] [address] [place], [address] Potassium [Moles/Vol] 4.0 mmol/L Normal 3.5-5.1 [facility] Comment on above: Performed By: #### L 500.4050, L501.0900, L500.4100, L501.9985 ####[facility] [address] [place], [address] Sodium [Moles/Vol] 138 mmol/L Normal 136-145 [facility] Comment on above: Performed By: #### L 500.4050, L501.0900, L500.4100, L501.9985 ####[facility] [address] [place], [address] T PROT 7.5 g/dL Normal 6.4-8.2 [facility] Comment on above: Performed By: #### L 500.4050, L501.0900, L500.4100, L501.9985 ####[facility] [address] [place], [address] Urea nitrogen [Mass/Vol] 18 mg/dL Normal 7-18 [facility] Comment on above: Performed By: #### L 500.4050, L501.0900, L500.4100, L501.9985 ####[facility] [address] [place], [address] Estimated glomerular filtrat ion rate (GFR) AmericanOrdered By: Milind Lamb on 07-20-2024 Estimated GFR (MDRD) Amer 99 mL/min >60 [facility] Comment on above: GFR Calc Glomerular filtration rate ( GFR) estimationOrdered By: Milind Lamb on 07-20-2024 Estimated GFR (MDRD) Non-Af Amer 82 mL/min >60 [facility] Comment on above: Non- GFR Calc Glucose measurementOrdered B y: Milind Lamb on 07-20-2024 Glucose [Mass/Vol] 101 mg/dL 74-106 [facility] Comment on above: Fasting Glucose resu lt from 100 to 125 mg/dL suggests IMPAIRED HOMEOSTASIS per A.D.A. criteria. Hemoglobin A1con 07-20-2024 HbA1c (Bld) [Mass fraction] 12.6 % High 3.8-5.6 [facility] Comment on above: Result Comment: Norm al < 5.7 % Prediabetic 5.7 - 6.4 % Diabetic >or= 6.5 % Please note range changes. Performed By: #### L 500.4050, L501.0900, L500.4100, L501.9985 ####[facility] [address] [place], [address] Hemoglobin A1c percentageOrd ered By: Milind Lamb on 07-20-2024 HbA1c (Bld) [Mass fraction] 12.6 % High 3.8-5.6 [facility] Comment on above: Normal < 5.7 % Predi abetic 5.7 - 6.4 % Diabetic >or= 6.5 % Please note range changes. High density lipoprotein (HD L) measurementOrdered By: Milind Lamb on 07-20-2024 Cholesterol in HDL [Mass/Vol] 102 mg/dL >40 [facility] Comment on above: The drugs N-Acetylcy steine and Metamizole may falsely depress this assay. Reference Range HDL <40 mg/dL Low HDL Cholesterol HDL >or= 60 mg/dL High HDL Cholesterol Laboratory - Chemistry and C hemistry - challengeOrdered By: Milind Lamb on 07-20-2024 AST [Catalytic activity/Vol] 4 U/L Low 15-37 [facility] Lipid Profileon 07-20-2024 Cholesterol [Mass/Vol] 234 mg/dL High 200 [facility] Comment on above: Result Comment: <200 mg/dL Desirable 200-240 mg/dL Borderline >240 mg/dL High Risk Performed By: #### L 500.4050, L501.0900, L500.4100, L501.9985 ####[facility] [address] [place], [address] Cholesterol in HDL [Mass/Vol] 102 mg/dL Normal [facility] Comment on above: Result Comment: The drugs N-Acetylcysteine and Metamizole may falselydepress this assay. Reference Range HDL <40 mg/dL Low HDL Cholesterol HDL >or= 60 mg/dL High HDL Cholesterol Performed By: #### L 500.4050, L501.0900, L500.4100, L501.9985 ####[facility] [address] [place], [address] Cholesterol in LDL [Mass/Vol] 119 mg/dL Normal 0-130 [facility] Comment on above: Performed By: #### L 500.4050, L501.0900, L500.4100, L501.9985 ####[facility] [address] [place], [address] Cholesterol in VLDL [Mass/Vol] 13 mg/dL Normal 5-40 [facility] Comment on above: Performed By: #### L 500.4050, L501.0900, L500.4100, L501.9985 ####[facility] [address] [place], [address] Triglyceride [Mass/Vol] 63 mg/dL Normal [facility] Comment on above: Result Comment: The drugs N-Acetylcysteine and Metamizole may falselydepress this assay.Serum Triglycerides Reference Interval Normal <150 mg/dL Borderline high 150 - 199 mg/dL High 200 - 499 mg/dL Very High > or = 500 mg/dL Performed By: #### L 500.4050, L501.0900, L500.4100, L501.9985 ####[facility] [address] [place], [address] Low density lipoprotein (LDL ) cholesterol measurementOrdered By: Milind Lamb on 07-20-2024 Cholesterol in LDL [Mass/Vol] 119 mg/dL 0-130 [facility] Potassium measurementOrdered By: Milind Lamb on 07-20-2024 Potassium [Moles/Vol] 4.0 mmol/L 3.5-5.1 [facility] Protein+Creatinine Ratio,Uri neon 07-20-2024 PROT:CRE RATIO 218 mg/g CRE High 0-200 [facility] Comment on above: Performed By: #### L 500.4050, L501.0900, L500.4100, L501.9985 ####[facility] [address] [place], [address] Protein (U) [Mass/Vol] 11.8 mg/dL Normal <11.9 [facility] Comment on above: Performed By: #### L 500.4050, L501.0900, L500.4100, L501.9985 ####[facility] [address] [place], [address] UR CREAT 54.20 mg/dL Normal NO RANGE EST. [facility] Comment on above: Performed By: #### L 500.4050, L501.0900, L500.4100, L501.9985 ####[facility] [address] [place], [address] Protein/Creatinine (U) [Mass ratio]Ordered By: Milind Lamb on 07-20-2024 Urine Protein/Creatinine Ratio 218 mg/g CRE High 0-200 [facility] Random urine protein measure mentOrdered By: Milind Lamb on 07-20-2024 Protein (U) [Mass/Vol] 11.8 mg/dL 0.0-11.8 [facility] Serum anion gap measurementO rdered By: Milind Lamb on 07-20-2024 Anion gap [Moles/Vol] 5 mmol/L 5-15 [facility] Serum globulin measurementOr dered By: Milind Lamb on 07-20-2024 Globulin (S) [Mass/Vol] 3.8 g/dL 2.2-4.2 [facility] Serum or plasma alanine hargrove otransferase (ALT) measurementOrdered By: Milind Lamb on 07-20-2024 ALT [Catalytic activity/Vol] 11 U/L Low 13-56 [facility] Serum or plasma albumin jn urement (mass/volume)Ordered By: Milind Lamb on 07-20-2024 Albumin [Mass/Vol] 3.7 g/dL 3.2-5.0 [facility] Serum or plasma alkaline regis sphatase measurementOrdered By: Milind Lamb on 07-20-2024 ALP [Catalytic activity/Vol] 91 U/L 45-117 [facility] Serum or plasma calcium jn urement (mass/volume)Ordered By: Milind Lamb on 07-20-2024 Calcium [Mass/Vol] 10.2 mg/dL High 8.5-10.1 [facility] Serum or plasma cholesterol measurement (mass/volume)Ordered By: Milind Lamb on 07-20-2024 Cholesterol [Mass/Vol] 234 mg/dL High <200 [facility] Comment on above: <200 mg/dL Desirable 200-240 mg/dL Borderline >240 mg/dL High Risk Serum or plasma creatinine m easurement (mass/volume)Ordered By: Milind Lamb on 07-20-2024 Creatinine [Mass/Vol] 0.76 mg/dL 0.55-1.02 [facility] Comment on above: The validity of the calculated GFR & GFRAA in patients over 70 years has not been determined. Clinical correlation is essential. Serum or plasma urea nitroge n measurement (mass/volume)Ordered By: Milind Lamb on 07-20-2024 Urea nitrogen [Mass/Vol] 18 mg/dL 7-18 [facility] Sodium levelOrdered By: Milind Lamb on 07-20-2024 Sodium [Moles/Vol] 138 mmol/L 136-145 [facility] Total proteinOrdered By: Bri Lamb on 07-20-2024 Protein [Mass/Vol] 7.5 g/dL 6.4-8.2 [facility] Triglycerides measurementOrd ered By: Milind Lamb on 07-20-2024 Triglyceride [Mass/Vol] 63 mg/dL <199 [facility] Comment on above: The drugs N-Acetylcy steine and Metamizole may falsely depress this assay.Serum Triglycerides Reference Interval Normal <150 mg/dL Borderline high 150 - 199 mg/dL High 200 - 499 mg/dL Very High > or = 500 mg/dL Urine creatinine measurement (mass/volume)Ordered By: Milind Lamb on 07-20-2024 Creatinine (U) [Mass/Vol] 54.20 mg/dL NO RANGE EST. [facility] Very low density lipoprotein (VLDL) cholesterol measurementOrdered By: Milind Lamb on 07-20-2024 VLDL Cholesterol 13 mg/dL 5-40 [facility] Venous Blood Gason 4 Blood Gas Type LIZY Normal [facility] Comment on above: Performed By: #### L 9000.0810 ####[facility] [address] [place], [address] CO2 [Moles/Vol] 17 mmol/L Low 23-33 [facility] Comment on above: Performed By: #### L 9000.0810 ####[facility] [address] [place], [address] FI02 21.0 Normal [facility] Comment on above: Performed By: #### L 0.0810 ####[facility] [address] [place], [address] HCO3 (Bld) [Moles/Vol] 15 mmol/L Low 22-26 [facility] Comment on above: Performed By: #### L 0.0810 ####[facility] [address] [place], [address] O2 Delivery Dev Not entered [facility] Comment on above: Performed By: #### L 0.0810 ####[facility] [address] [place], [address] SITE Not entered [facility] Comment on above: Performed By: #### L 9000.0810 ####[facility] [address] [place], [address] VBG BE -12 mmol/L Low -1.0-3.5 [facility] Comment on above: Performed By: #### L 0.0810 ####[facility] [address] [place], [address] VBG pCO2 38.2 mmHg Low 41-51 [facility] Comment on above: Performed By: #### L 9000.0810 ####[facility] [address] [place], [address] VBG pH 7.21 Low 7.32-7.42 [facility] Comment on above: Performed By: #### L 0.0810 ####[facility] [address] [place], [address] VBG PO2 71 mmHg High 25-40 [facility] Comment on above: Performed By: #### L 9000.0810 ####[facility] [address] [place], [address] VBG SO2 90 High 50-70 [facility] Comment on above: Performed By: #### L 9000.0810 ####[facility] [address] [place], [address] Basic Metabolic Profile (BMP )on 05-11-2024 BUN Normal 7-18 [facility] Comment on above: Result Comment: Canc elled via OM: Order cancelled - Patient discharged Performed By: #### L 100.0100, L500.2500 ####[facility] [address] [place], [address] BUN/CRE Normal 10-20 [facility] Comment on above: Result Comment: Canc elled via OM: Order cancelled - Patient discharged Performed By: #### L 100.0100, L500.2500 ####[facility] [address] [place], [address] CA,Total Normal 8.5-10.1 [facility] Comment on above: Result Comment: Canc elled via OM: Order cancelled - Patient discharged Performed By: #### L 100.0100, L500.2500 ####[facility] [address] [place], [address] CL Normal 98-107 [facility] Comment on above: Result Comment: Canc elled via OM: Order cancelled - Patient discharged Performed By: #### L 100.0100, L500.2500 ####[facility] [address] [place], [address] CO2 Normal 21.0-32.0 [facility] Comment on above: Result Comment: Canc elled via OM: Order cancelled - Patient discharged Performed By: #### L 100.0100, L500.2500 ####[facility] [address] [place], [address] CREAT,SERUM Normal 0.55-1.02 [facility] Comment on above: Result Comment: Canc elled via OM: Order cancelled - Patient discharged Performed By: #### L 100.0100, L500.2500 ####[facility] [address] [place], [address] EST GFR Normal >60 [facility] Comment on above: Result Comment: Canc elled via OM: Order cancelled - Patient discharged Performed By: #### L 100.0100, L500.2500 ####[facility] [address] [place], [address] EST GFR - AA Normal >60 [facility] Comment on above: Result Comment: Canc elled via OM: Order cancelled - Patient discharged Performed By: #### L 100.0100, L500.2500 ####[facility] [address] [place], [address] GAP Normal 5-15 [facility] Comment on above: Result Comment: Canc elled via OM: Order cancelled - Patient discharged Performed By: #### L 100.0100, L500.2500 ####[facility] [address] [place], [address] GLU Normal 74-106 [facility] Comment on above: Result Comment: Canc elled via OM: Order cancelled - Patient discharged Performed By: #### L 100.0100, L500.2500 ####[facility] [address] [place], [address] Potassium Normal 3.5-5.1 [facility] Comment on above: Result Comment: Canc elled via OM: Order cancelled - Patient discharged Performed By: #### L 100.0100, L500.2500 ####[facility] [address] [place], [address] Basic Metabolic Profile (BMP) Normal 136-145 [facility] Comment on above: Result Comment: Canc elled via OM: Order cancelled - Patient discharged Performed By: #### L 100.0100, L500.2500 ####[facility] [address] [place], [address] CBC W/Diff, Automatedon 11-0 Absolute Neut Normal 2.0-7.7 [facility] Comment on above: Result Comment: Canc elled via OM: Order cancelled - Patient discharged Performed By: #### L 100.0100, L500.2500 ####[facility] [address] [place], [address] HCT Normal 37-47 [facility] Comment on above: Result Comment: Canc elled via OM: Order cancelled - Patient discharged Performed By: #### L 100.0100, L500.2500 ####[facility] [address] [place], [address] HGB Normal 12.0-15.0 [facility] Comment on above: Result Comment: Canc elled via OM: Order cancelled - Patient discharged Performed By: #### L 100.0100, L500.2500 ####[facility] [address] [place], [address] MCH Normal 27.0-32.0 [facility] Comment on above: Result Comment: Canc elled via OM: Order cancelled - Patient discharged Performed By: #### L 100.0100, L500.2500 ####[facility] [address] [place], [address] MCHC Normal 32-36 [facility] Comment on above: Result Comment: Canc elled via OM: Order cancelled - Patient discharged Performed By: #### L 100.0100, L500.2500 ####[facility] [address] [place], [address] MCV Normal 81-99 [facility] Comment on above: Result Comment: Canc elled via OM: Order cancelled - Patient discharged Performed By: #### L 100.0100, L500.2500 ####[facility] [address] [place], [address] NEUT% Normal 47-70 [facility] Comment on above: Result Comment: Canc elled via OM: Order cancelled - Patient discharged Performed By: #### L 100.0100, L500.2500 ####[facility] [address] [place], [address] PLT Normal 150-450 [facility] Comment on above: Result Comment: Canc elled via OM: Order cancelled - Patient discharged Performed By: #### L 100.0100, L500.2500 ####[facility] [address] [place], [address] RBC Normal 4.2-5.4 [facility] Comment on above: Result Comment: Canc elled via OM: Order cancelled - Patient discharged Performed By: #### L 100.0100, L500.2500 ####[facility] [address] [place], [address] RDW CV Normal 11.6-14.6 [facility] Comment on above: Result Comment: Canc elled via OM: Order cancelled - Patient discharged Performed By: #### L 100.0100, L500.2500 ####[facility] [address] [place], [address] RDW SD Normal 35.1-43.9 [facility] Comment on above: Result Comment: Canc elled via OM: Order cancelled - Patient discharged Performed By: #### L 100.0100, L500.2500 ####[facility] [address] [place], [address] WBC Normal 4.4-11.0 [facility] Comment on above: Result Comment: Canc elled via OM: Order cancelled - Patient discharged Performed By: #### L 100.0100, L500.2500 ####[facility] [address] [place], [address] Basic Metabolic Profile (BMP )on 05-10-2024 BUN Normal 7-18 [facility] Comment on above: Result Comment: Canc elled via OM: Order cancelled - Patient discharged Performed By: #### L 100.0100, L500.2500 ####[facility] [address] [place], [address] BUN/CRE Normal 10-20 [facility] Comment on above: Result Comment: Canc elled via OM: Order cancelled - Patient discharged Performed By: #### L 100.0100, L500.2500 ####[facility] [address] [place], [address] CA,Total Normal 8.5-10.1 [facility] Comment on above: Result Comment: Canc elled via OM: Order cancelled - Patient discharged Performed By: #### L 100.0100, L500.2500 ####[facility] [address] [place], [address] CL Normal 98-107 [facility] Comment on above: Result Comment: Canc elled via OM: Order cancelled - Patient discharged Performed By: #### L 100.0100, L500.2500 ####[facility] [address] [place], [address] CO2 Normal 21.0-32.0 [facility] Comment on above: Result Comment: Canc elled via OM: Order cancelled - Patient discharged Performed By: #### L 100.0100, L500.2500 ####[facility] [address] [place], [address] CREAT,SERUM Normal 0.55-1.02 [facility] Comment on above: Result Comment: Canc elled via OM: Order cancelled - Patient discharged Performed By: #### L 100.0100, L500.2500 ####[facility] [address] [place], [address] EST GFR Normal >60 [facility] Comment on above: Result Comment: Canc elled via OM: Order cancelled - Patient discharged Performed By: #### L 100.0100, L500.2500 ####[facility] [address] [place], [address] EST GFR - AA Normal >60 [facility] Comment on above: Result Comment: Canc elled via OM: Order cancelled - Patient discharged Performed By: #### L 100.0100, L500.2500 ####[facility] [address] [place], [address] GAP Normal 5-15 [facility] Comment on above: Result Comment: Canc elled via OM: Order cancelled - Patient discharged Performed By: #### L 100.0100, L500.2500 ####[facility] [address] [place], [address] GLU Normal 74-106 [facility] Comment on above: Result Comment: Canc elled via OM: Order cancelled - Patient discharged Performed By: #### L 100.0100, L500.2500 ####[facility] [address] [place], [address] Potassium Normal 3.5-5.1 [facility] Comment on above: Result Comment: Canc elled via OM: Order cancelled - Patient discharged Performed By: #### L 100.0100, L500.2500 ####[facility] [address] [place], [address] Basic Metabolic Profile (BMP) Normal 136-145 [facility] Comment on above: Result Comment: Canc elled via OM: Order cancelled - Patient discharged Performed By: #### L 100.0100, L500.2500 ####[facility] [address] [place], [address] CBC W/Diff, Automatedon 11-0 Absolute Neut Normal 2.0-7.7 [facility] Comment on above: Result Comment: Canc elled via OM: Order cancelled - Patient discharged Performed By: #### L 100.0100, L500.2500 ####[facility] [address] [place], [address] HCT Normal 37-47 [facility] Comment on above: Result Comment: Canc elled via OM: Order cancelled - Patient discharged Performed By: #### L 100.0100, L500.2500 ####[facility] [address] [place], [address] HGB Normal 12.0-15.0 [facility] Comment on above: Result Comment: Canc elled via OM: Order cancelled - Patient discharged Performed By: #### L 100.0100, L500.2500 ####[facility] [address] [place], [address] MCH Normal 27.0-32.0 [facility] Comment on above: Result Comment: Canc elled via OM: Order cancelled - Patient discharged Performed By: #### L 100.0100, L500.2500 ####[facility] [address] [place], [address] MCHC Normal 32-36 [facility] Comment on above: Result Comment: Canc elled via OM: Order cancelled - Patient discharged Performed By: #### L 100.0100, L500.2500 ####[facility] [address] [place], [address] MCV Normal 81-99 [facility] Comment on above: Result Comment: Canc elled via OM: Order cancelled - Patient discharged Performed By: #### L 100.0100, L500.2500 ####[facility] [address] [place], [address] NEUT% Normal 47-70 [facility] Comment on above: Result Comment: Canc elled via OM: Order cancelled - Patient discharged Performed By: #### L 100.0100, L500.2500 ####[facility] [address] [place], [address] PLT Normal 150-450 [facility] Comment on above: Result Comment: Canc elled via OM: Order cancelled - Patient discharged Performed By: #### L 100.0100, L500.2500 ####[facility] [address] [place], [address] RBC Normal 4.2-5.4 [facility] Comment on above: Result Comment: Canc elled via OM: Order cancelled - Patient discharged Performed By: #### L 100.0100, L500.2500 ####[facility] [address] [place], [address] RDW CV Normal 11.6-14.6 [facility] Comment on above: Result Comment: Canc elled via OM: Order cancelled - Patient discharged Performed By: #### L 100.0100, L500.2500 ####[facility] [address] [place], [address] RDW SD Normal 35.1-43.9 [facility] Comment on above: Result Comment: Canc elled via OM: Order cancelled - Patient discharged Performed By: #### L 100.0100, L500.2500 ####[facility] [address] [place], [address] WBC Normal 4.4-11.0 [facility] Comment on above: Result Comment: Canc elled via OM: Order cancelled - Patient discharged Performed By: #### L 100.0100, L500.2500 ####[facility] [address] [place], [address] Basic Metabolic Profile (BMP )on 05-09-2024 BUN Normal 7-18 [facility] Comment on above: Result Comment: Canc elled via OM: Order cancelled - Patient discharged Performed By: #### L 500.2500, L100.0100 ####[facility] [address] [place], [address] BUN/CRE Normal 10-20 [facility] Comment on above: Result Comment: Canc elled via OM: Order cancelled - Patient discharged Performed By: #### L 500.2500, L100.0100 ####[facility] [address] [place], [address] CA,Total Normal 8.5-10.1 [facility] Comment on above: Result Comment: Canc elled via OM: Order cancelled - Patient discharged Performed By: #### L 500.2500, L100.0100 ####[facility] [address] [place], [address] CL Normal 98-107 [facility] Comment on above: Result Comment: Canc elled via OM: Order cancelled - Patient discharged Performed By: #### L 500.2500, L100.0100 ####[facility] [address] [place], [address] CO2 Normal 21.0-32.0 [facility] Comment on above: Result Comment: Canc elled via OM: Order cancelled - Patient discharged Performed By: #### L 500.2500, L100.0100 ####[facility] [address] [place], [address] CREAT,SERUM Normal 0.55-1.02 [facility] Comment on above: Result Comment: Canc elled via OM: Order cancelled - Patient discharged Performed By: #### L 500.2500, L100.0100 ####[facility] [address] [place], [address] EST GFR Normal >60 [facility] Comment on above: Result Comment: Canc elled via OM: Order cancelled - Patient discharged Performed By: #### L 500.2500, L100.0100 ####[facility] [address] [place], [address] EST GFR - AA Normal >60 [facility] Comment on above: Result Comment: Canc elled via OM: Order cancelled - Patient discharged Performed By: #### L 500.2500, L100.0100 ####[facility] [address] [place], [address] GAP Normal 5-15 [facility] Comment on above: Result Comment: Canc elled via OM: Order cancelled - Patient discharged Performed By: #### L 500.2500, L100.0100 ####[facility] [address] [place], [address] GLU Normal 74-106 [facility] Comment on above: Result Comment: Canc elled via OM: Order cancelled - Patient discharged Performed By: #### L 500.2500, L100.0100 ####[facility] [address] [place], [address] Potassium Normal 3.5-5.1 [facility] Comment on above: Result Comment: Canc elled via OM: Order cancelled - Patient discharged Performed By: #### L 500.2500, L100.0100 ####[facility] [address] [place], [address] Basic Metabolic Profile (BMP) Normal 136-145 [facility] Comment on above: Result Comment: Canc elled via OM: Order cancelled - Patient discharged Performed By: #### L 500.2500, L100.0100 ####[facility] [address] [place], [address] CBC W/Diff, Automatedon 11-0 Absolute Neut Normal 2.0-7.7 [facility] Comment on above: Result Comment: Canc elled via OM: Order cancelled - Patient discharged Performed By: #### L 500.2500, L100.0100 ####[facility] [address] [place], [address] HCT Normal 37-47 [facility] Comment on above: Result Comment: Canc elled via OM: Order cancelled - Patient discharged Performed By: #### L 500.2500, L100.0100 ####[facility] [address] [place], [address] HGB Normal 12.0-15.0 [facility] Comment on above: Result Comment: Canc elled via OM: Order cancelled - Patient discharged Performed By: #### L 500.2500, L100.0100 ####[facility] [address] [place], [address] MCH Normal 27.0-32.0 [facility] Comment on above: Result Comment: Canc elled via OM: Order cancelled - Patient discharged Performed By: #### L 500.2500, L100.0100 ####[facility] [address] [place], [address] MCHC Normal 32-36 [facility] Comment on above: Result Comment: Canc elled via OM: Order cancelled - Patient discharged Performed By: #### L 500.2500, L100.0100 ####[facility] [address] [place], [address] MCV Normal 81-99 [facility] Comment on above: Result Comment: Canc elled via OM: Order cancelled - Patient discharged Performed By: #### L 500.2500, L100.0100 ####[facility] [address] [place], [address] NEUT% Normal 47-70 [facility] Comment on above: Result Comment: Canc elled via OM: Order cancelled - Patient discharged Performed By: #### L 500.2500, L100.0100 ####[facility] [address] [place], [address] PLT Normal 150-450 [facility] Comment on above: Result Comment: Canc elled via OM: Order cancelled - Patient discharged Performed By: #### L 500.2500, L100.0100 ####[facility] [address] [place], [address] RBC Normal 4.2-5.4 [facility] Comment on above: Result Comment: Canc elled via OM: Order cancelled - Patient discharged Performed By: #### L 500.2500, L100.0100 ####[facility] [address] [place], [address] RDW CV Normal 11.6-14.6 [facility] Comment on above: Result Comment: Canc elled via OM: Order cancelled - Patient discharged Performed By: #### L 500.2500, L100.0100 ####[facility] [address] [place], [address] RDW SD Normal 35.1-43.9 [facility] Comment on above: Result Comment: Canc elled via OM: Order cancelled - Patient discharged Performed By: #### L 500.2500, L100.0100 ####[facility] [address] [place], [address] WBC Normal 4.4-11.0 [facility] Comment on above: Result Comment: Canc elled via OM: Order cancelled - Patient discharged Performed By: #### L 500.2500, L100.0100 ####[facility] [address] [place], [address] Basic Metabolic Profile (BMP )on 05-08-2024 BUN Normal 7-18 [facility] Comment on above: Result Comment: Canc elled via OM: Order cancelled - Patient discharged Performed By: #### L 100.0100, L500.2500 ####[facility] [address] [place], [address] BUN/CRE Normal 10-20 [facility] Comment on above: Result Comment: Canc elled via OM: Order cancelled - Patient discharged Performed By: #### L 100.0100, L500.2500 ####[facility] [address] [place], [address] CA,Total Normal 8.5-10.1 [facility] Comment on above: Result Comment: Canc elled via OM: Order cancelled - Patient discharged Performed By: #### L 100.0100, L500.2500 ####[facility] [address] [place], [address] CL Normal 98-107 [facility] [facility] Comment on above: Result Comment: Canc elled via OM: Order cancelled - Patient discharged Performed By: #### L 100.0100, L500.2500 ####[facility] [address] [place], [address] CO2 Normal 21.0-32.0 [facility] Comment on above: Result Comment: Canc elled via OM: Order cancelled - Patient discharged Performed By: #### L 100.0100, L500.2500 ####[facility] [address] [place], [address] CREAT,SERUM Normal 0.55-1.02 [facility] Comment on above: Result Comment: Canc elled via OM: Order cancelled - Patient discharged Performed By: #### L 100.0100, L500.2500 ####[facility] [address] [place], [address] EST GFR Normal >60 [facility] Comment on above: Result Comment: Canc elled via OM: Order cancelled - Patient discharged Performed By: #### L 100.0100, L500.2500 ####[facility] [address] [place], [address] EST GFR - AA Normal >60 [facility] Comment on above: Result Comment: Canc elled via OM: Order cancelled - Patient discharged Performed By: #### L 100.0100, L500.2500 ####[facility] [address] [place], [address] GAP Normal 5-15 [facility] Comment on above: Result Comment: Canc elled via OM: Order cancelled - Patient discharged Performed By: #### L 100.0100, L500.2500 ####[facility] [address] [place], [address] GLU Normal 74-106 [facility] Comment on above: Result Comment: Canc elled via OM: Order cancelled - Patient discharged Performed By: #### L 100.0100, L500.2500 ####[facility] [address] [place], [address] Potassium Normal 3.5-5.1 [facility] Comment on above: Result Comment: Canc elled via OM: Order cancelled - Patient discharged Performed By: #### L 100.0100, L500.2500 ####[facility] [address] [place], [address] Basic Metabolic Profile (BMP) Normal 136-145 [facility] Comment on above: Result Comment: Canc elled via OM: Order cancelled - Patient discharged Performed By: #### L 100.0100, L500.2500 ####[facility] [address] [place], [address] CBC W/Diff, Automatedon 11-0 Absolute Neut Normal 2.0-7.7 [facility] Comment on above: Result Comment: Canc elled via OM: Order cancelled - Patient discharged Performed By: #### L 100.0100, L500.2500 ####[facility] [address] [place], [address] HCT Normal 37-47 [facility] Comment on above: Result Comment: Canc elled via OM: Order cancelled - Patient discharged Performed By: #### L 100.0100, L500.2500 ####[facility] [address] [place], [address] HGB Normal 12.0-15.0 [facility] Comment on above: Result Comment: Canc elled via OM: Order cancelled - Patient discharged Performed By: #### L 100.0100, L500.2500 ####[facility] [address] [place], [address] MCH Normal 27.0-32.0 [facility] Comment on above: Result Comment: Canc elled via OM: Order cancelled - Patient discharged Performed By: #### L 100.0100, L500.2500 ####[facility] [address] [place], [address] MCHC Normal 32-36 [facility] Comment on above: Result Comment: Canc elled via OM: Order cancelled - Patient discharged Performed By: #### L 100.0100, L500.2500 ####[facility] [address] [place], [address] MCV Normal 81-99 [facility] Comment on above: Result Comment: Canc elled via OM: Order cancelled - Patient discharged Performed By: #### L 100.0100, L500.2500 ####[facility] [address] [place], [address] NEUT% Normal 47-70 [facility] Comment on above: Result Comment: Canc elled via OM: Order cancelled - Patient discharged Performed By: #### L 100.0100, L500.2500 ####[facility] [address] [place], [address] PLT Normal 150-450 [facility] Comment on above: Result Comment: Canc elled via OM: Order cancelled - Patient discharged Performed By: #### L 100.0100, L500.2500 ####[facility] [address] [place], [address] RBC Normal 4.2-5.4 [facility] Comment on above: Result Comment: Canc elled via OM: Order cancelled - Patient discharged Performed By: #### L 100.0100, L500.2500 ####[facility] [address] [place], [address] RDW CV Normal 11.6-14.6 [facility] Comment on above: Result Comment: Canc elled via OM: Order cancelled - Patient discharged Performed By: #### L 100.0100, L500.2500 ####[facility] [address] [place], [address] RDW SD Normal 35.1-43.9 [facility] Comment on above: Result Comment: Canc elled via OM: Order cancelled - Patient discharged Performed By: #### L 100.0100, L500.2500 ####[facility] [address] [place], [address] WBC Normal 4.4-11.0 [facility] Comment on above: Result Comment: Canc elled via OM: Order cancelled - Patient discharged Performed By: #### L 100.0100, L500.2500 ####[facility] [address] [place], [address] Culture, Blood (WB)on 2023 CUB Blood cultures x2 fr om two different sites No growth in 5 days. Normal [facility] Comment on above: Performed By: #### M 200.1000 ####[facility] [address] [place], [address] Basic Metabolic Profile (BMP )on 05-07-2024 BUN Normal 7-18 [facility] Comment on above: Result Comment: Canc elled via OM: Order cancelled - Patient discharged Performed By: #### L 500.2500, L100.0100 ####[facility] [address] [place], [address] BUN/CRE Normal 10-20 [facility] Comment on above: Result Comment: Canc elled via OM: Order cancelled - Patient discharged Performed By: #### L 500.2500, L100.0100 ####[facility] [address] [place], [address] CA,Total Normal 8.5-10.1 [facility] Comment on above: Result Comment: Canc elled via OM: Order cancelled - Patient discharged Performed By: #### L 500.2500, L100.0100 ####[facility] [address] [place], [address] CL Normal 98-107 [facility] Comment on above: Result Comment: Canc elled via OM: Order cancelled - Patient discharged Performed By: #### L 500.2500, L100.0100 ####[facility] [address] [place], [address] CO2 Normal 21.0-32.0 [facility] Comment on above: Result Comment: Canc elled via OM: Order cancelled - Patient discharged Performed By: #### L 500.2500, L100.0100 ####[facility] [address] [place], [address] CREAT,SERUM Normal 0.55-1.02 [facility] Comment on above: Result Comment: Canc elled via OM: Order cancelled - Patient discharged Performed By: #### L 500.2500, L100.0100 ####[facility] [address] [place], [address] EST GFR Normal >60 [facility] Comment on above: Result Comment: Canc elled via OM: Order cancelled - Patient discharged Performed By: #### L 500.2500, L100.0100 ####[facility] [address] [place], [address] EST GFR - AA Normal >60 [facility] Comment on above: Result Comment: Canc elled via OM: Order cancelled - Patient discharged Performed By: #### L 500.2500, L100.0100 ####[facility] [address] [place], [address] GAP Normal 5-15 [facility] Comment on above: Result Comment: Canc elled via OM: Order cancelled - Patient discharged Performed By: #### L 500.2500, L100.0100 ####[facility] [address] [place], [address] GLU Normal 74-106 [facility] Comment on above: Result Comment: Canc elled via OM: Order cancelled - Patient discharged Performed By: #### L 500.2500, L100.0100 ####[facility] [address] [place], [address] Potassium Normal 3.5-5.1 [facility] Comment on above: Result Comment: Canc elled via OM: Order cancelled - Patient discharged Performed By: #### L 500.2500, L100.0100 ####[facility] [address] [place], [address] Basic Metabolic Profile (BMP) Normal 136-145 [facility] Comment on above: Result Comment: Canc elled via OM: Order cancelled - Patient discharged Performed By: #### L 500.2500, L100.0100 ####[facility] [address] [place], [address] CBC W/Diff, Automatedon 11-0 Absolute Neut Normal 2.0-7.7 [facility] Comment on above: Result Comment: Canc elled via OM: Order cancelled - Patient discharged Performed By: #### L 500.2500, L100.0100 ####[facility] [address] [place], [address] HCT Normal 37-47 [facility] Comment on above: Result Comment: Canc elled via OM: Order cancelled - Patient discharged Performed By: #### L 500.2500, L100.0100 ####[facility] [address] [place], [address] HGB Normal 12.0-15.0 [facility] Comment on above: Result Comment: Canc elled via OM: Order cancelled - Patient discharged Performed By: #### L 500.2500, L100.0100 ####[facility] [address] [place], [address] MCH Normal 27.0-32.0 [facility] Comment on above: Result Comment: Canc elled via OM: Order cancelled - Patient discharged Performed By: #### L 500.2500, L100.0100 ####[facility] [address] [place], [address] MCHC Normal 32-36 [facility] Comment on above: Result Comment: Canc elled via OM: Order cancelled - Patient discharged Performed By: #### L 500.2500, L100.0100 ####[facility] [address] [place], [address] MCV Normal 81-99 [facility] Comment on above: Result Comment: Canc elled via OM: Order cancelled - Patient discharged Performed By: #### L 500.2500, L100.0100 ####[facility] [address] [place], [address] NEUT% Normal 47-70 [facility] Comment on above: Result Comment: Canc elled via OM: Order cancelled - Patient discharged Performed By: #### L 500.2500, L100.0100 ####[facility] [address] [place], [address] PLT Normal 150-450 [facility] Comment on above: Result Comment: Canc elled via OM: Order cancelled - Patient discharged Performed By: #### L 500.2500, L100.0100 ####[facility] [address] [place], [address] RBC Normal 4.2-5.4 [facility] Comment on above: Result Comment: Canc elled via OM: Order cancelled - Patient discharged Performed By: #### L 500.2500, L100.0100 ####[facility] [address] [place], [address] RDW CV Normal 11.6-14.6 [facility] Comment on above: Result Comment: Canc elled via OM: Order cancelled - Patient discharged Performed By: #### L 500.2500, L100.0100 ####[facility] [address] [place], [address] RDW SD Normal 35.1-43.9 [facility] Comment on above: Result Comment: Canc elled via OM: Order cancelled - Patient discharged Performed By: #### L 500.2500, L100.0100 ####[facility] [address] [place], [address] WBC Normal 4.4-11.0 [facility] Comment on above: Result Comment: Canc elled via OM: Order cancelled - Patient discharged Performed By: #### L 500.2500, L100.0100 ####[facility] [address] [place], [address] Basic Metabolic Profile (BMP )on 05-06-2024 BUN Normal 7-18 [facility] Comment on above: Result Comment: Canc elled via OM: Order cancelled - Patient discharged Performed By: #### L 100.0100, L500.2500 ####[facility] [address] [place], [address] BUN/CRE Normal 10-20 [facility] Comment on above: Result Comment: Canc elled via OM: Order cancelled - Patient discharged Performed By: #### L 100.0100, L500.2500 ####[facility] [address] [place], [address] CA,Total Normal 8.5-10.1 [facility] Comment on above: Result Comment: Canc elled via OM: Order cancelled - Patient discharged Performed By: #### L 100.0100, L500.2500 ####[facility] [address] [place], [address] CL Normal 98-107 [facility] Comment on above: Result Comment: Canc elled via OM: Order cancelled - Patient discharged Performed By: #### L 100.0100, L500.2500 ####[facility] [address] [place], [address] CO2 Normal 21.0-32.0 [facility] Comment on above: Result Comment: Canc elled via OM: Order cancelled - Patient discharged Performed By: #### L 100.0100, L500.2500 ####[facility] [address] [place], [address] CREAT,SERUM Normal 0.55-1.02 [facility] Comment on above: Result Comment: Canc elled via OM: Order cancelled - Patient discharged Performed By: #### L 100.0100, L500.2500 ####[facility] [address] [place], [address] EST GFR Normal >60 [facility] Comment on above: Result Comment: Canc elled via OM: Order cancelled - Patient discharged Performed By: #### L 100.0100, L500.2500 ####[facility] [address] [place], [address] EST GFR - AA Normal >60 [facility] Comment on above: Result Comment: Canc elled via OM: Order cancelled - Patient discharged Performed By: #### L 100.0100, L500.2500 ####[facility] [address] [place], [address] GAP Normal 5-15 [facility] Comment on above: Result Comment: Canc elled via OM: Order cancelled - Patient discharged Performed By: #### L 100.0100, L500.2500 ####[facility] [address] [place], [address] GLU Normal 74-106 [facility] Comment on above: Result Comment: Canc elled via OM: Order cancelled - Patient discharged Performed By: #### L 100.0100, L500.2500 ####[facility] [address] [place], [address] Potassium Normal 3.5-5.1 [facility] Comment on above: Result Comment: Canc elled via OM: Order cancelled - Patient discharged Performed By: #### L 100.0100, L500.2500 ####[facility] [address] [place], [address] Basic Metabolic Profile (BMP) Normal 136-145 [facility] Comment on above: Result Comment: Canc elled via OM: Order cancelled - Patient discharged Performed By: #### L 100.0100, L500.2500 ####[facility] [address] [place], [address] CBC W/Diff, Automatedon 10-3 Absolute Neut Normal 2.0-7.7 [facility] Comment on above: Result Comment: Canc elled via OM: Order cancelled - Patient discharged Performed By: #### L 100.0100, L500.2500 ####[facility] [address] [place], [address] HCT Normal 37-47 [facility] Comment on above: Result Comment: Canc elled via OM: Order cancelled - Patient discharged Performed By: #### L 100.0100, L500.2500 ####[facility] [address] [place], [address] HGB Normal 12.0-15.0 [facility] Comment on above: Result Comment: Canc elled via OM: Order cancelled - Patient discharged Performed By: #### L 100.0100, L500.2500 ####[facility] [address] [place], [address] MCH Normal 27.0-32.0 [facility] Comment on above: Result Comment: Canc elled via OM: Order cancelled - Patient discharged Performed By: #### L 100.0100, L500.2500 ####[facility] [address] [place], [address] MCHC Normal 32-36 [facility] Comment on above: Result Comment: Canc elled via OM: Order cancelled - Patient discharged Performed By: #### L 100.0100, L500.2500 ####[facility] [address] [place], [address] MCV Normal 81-99 [facility] Comment on above: Result Comment: Canc elled via OM: Order cancelled - Patient discharged Performed By: #### L 100.0100, L500.2500 ####[facility] [address] [place], [address] NEUT% Normal 47-70 [facility] Comment on above: Result Comment: Canc elled via OM: Order cancelled - Patient discharged Performed By: #### L 100.0100, L500.2500 ####[facility] [address] [place], [address] PLT Normal 150-450 [facility] Comment on above: Result Comment: Canc elled via OM: Order cancelled - Patient discharged Performed By: #### L 100.0100, L500.2500 ####[facility] [address] [place], [address] RBC Normal 4.2-5.4 [facility] Comment on above: Result Comment: Canc elled via OM: Order cancelled - Patient discharged Performed By: #### L 100.0100, L500.2500 ####[facility] [address] [place], [address] RDW CV Normal 11.6-14.6 [facility] Comment on above: Result Comment: Canc elled via OM: Order cancelled - Patient discharged Performed By: #### L 100.0100, L500.2500 ####[facility] [address] [place], [address] RDW SD Normal 35.1-43.9 [facility] Comment on above: Result Comment: Canc elled via OM: Order cancelled - Patient discharged Performed By: #### L 100.0100, L500.2500 ####[facility] [address] [place], [address] WBC Normal 4.4-11.0 [facility] Comment on above: Result Comment: Canc elled via OM: Order cancelled - Patient discharged Performed By: #### L 100.0100, L500.2500 ####[facility] [address] [place], [address] Basic Metabolic Profile (BMP )on 05-05-2024 BUN Normal 7-18 [facility] Comment on above: Result Comment: Canc elled via OM: Order cancelled - Patient discharged Performed By: #### L 500.2500, L100.0100 ####[facility] [address] [place], [address] BUN/CRE Normal 10-20 [facility] Comment on above: Result Comment: Canc elled via OM: Order cancelled - Patient discharged Performed By: #### L 500.2500, L100.0100 ####[facility] [address] [place], [address] CA,Total Normal 8.5-10.1 [facility] Comment on above: Result Comment: Canc elled via OM: Order cancelled - Patient discharged Performed By: #### L 500.2500, L100.0100 ####[facility] [address] [place], [address] CL Normal 98-107 [facility] Comment on above: Result Comment: Canc elled via OM: Order cancelled - Patient discharged Performed By: #### L 500.2500, L100.0100 ####[facility] [address] [place], [address] CO2 Normal 21.0-32.0 [facility] Comment on above: Result Comment: Canc elled via OM: Order cancelled - Patient discharged Performed By: #### L 500.2500, L100.0100 ####[facility] [address] [place], [address] CREAT,SERUM Normal 0.55-1.02 [facility] Comment on above: Result Comment: Canc elled via OM: Order cancelled - Patient discharged Performed By: #### L 500.2500, L100.0100 ####[facility] [address] [place], [address] EST GFR Normal >60 [facility] Comment on above: Result Comment: Canc elled via OM: Order cancelled - Patient discharged Performed By: #### L 500.2500, L100.0100 ####[facility] [address] [place], [address] EST GFR - AA Normal >60 [facility] Comment on above: Result Comment: Canc elled via OM: Order cancelled - Patient discharged Performed By: #### L 500.2500, L100.0100 ####[facility] [address] [place], [address] GAP Normal 5-15 [facility] Comment on above: Result Comment: Canc elled via OM: Order cancelled - Patient discharged Performed By: #### L 500.2500, L100.0100 ####[facility] [address] [place], [address] GLU Normal 74-106 [facility] Comment on above: Result Comment: Canc elled via OM: Order cancelled - Patient discharged Performed By: #### L 500.2500, L100.0100 ####[facility] [address] [place], [address] Potassium Normal 3.5-5.1 [facility] Comment on above: Result Comment: Canc elled via OM: Order cancelled - Patient discharged Performed By: #### L 500.2500, L100.0100 ####[facility] [address] [place], [address] Basic Metabolic Profile (BMP) Normal 136-145 [facility] Comment on above: Result Comment: Canc elled via OM: Order cancelled - Patient discharged Performed By: #### L 500.2500, L100.0100 ####[facility] [address] [place], [address] CBC W/Diff, Automatedon 10-3 0-2024 Absolute Neut Normal 2.0-7.7 [facility] Comment on above: Result Comment: Canc elled via OM: Order cancelled - Patient discharged Performed By: #### L 500.2500, L100.0100 ####[facility] [address] [place], [address] HCT Normal 37-47 [facility] Comment on above: Result Comment: Canc elled via OM: Order cancelled - Patient discharged Performed By: #### L 500.2500, L100.0100 ####[facility] [address] [place], [address] HGB Normal 12.0-15.0 [facility] Comment on above: Result Comment: Canc elled via OM: Order cancelled - Patient discharged Performed By: #### L 500.2500, L100.0100 ####[facility] [address] [place], [address] MCH Normal 27.0-32.0 [facility] Comment on above: Result Comment: Canc elled via OM: Order cancelled - Patient discharged Performed By: #### L 500.2500, L100.0100 ####[facility] [address] [place], [address] MCHC Normal 32-36 [facility] Comment on above: Result Comment: Canc elled via OM: Order cancelled - Patient discharged Performed By: #### L 500.2500, L100.0100 ####[facility] [address] [place], [address] MCV Normal 81-99 [facility] Comment on above: Result Comment: Canc elled via OM: Order cancelled - Patient discharged Performed By: #### L 500.2500, L100.0100 ####[facility] [address] [place], [address] NEUT% Normal 47-70 [facility] Comment on above: Result Comment: Canc elled via OM: Order cancelled - Patient discharged Performed By: #### L 500.2500, L100.0100 ####[facility] [address] [place], [address] PLT Normal 150-450 [facility] Comment on above: Result Comment: Canc elled via OM: Order cancelled - Patient discharged Performed By: #### L 500.2500, L100.0100 ####[facility] [address] [place], [address] RBC Normal 4.2-5.4 [facility] Comment on above: Result Comment: Canc elled via OM: Order cancelled - Patient discharged Performed By: #### L 500.2500, L100.0100 ####[facility] [address] [place], [address] RDW CV Normal 11.6-14.6 [facility] Comment on above: Result Comment: Canc elled via OM: Order cancelled - Patient discharged Performed By: #### L 500.2500, L100.0100 ####[facility] [address] [place], [address] RDW SD Normal 35.1-43.9 [facility] Comment on above: Result Comment: Canc elled via OM: Order cancelled - Patient discharged Performed By: #### L 500.2500, L100.0100 ####[facility] [address] [place], [address] WBC Normal 4.4-11.0 [facility] Comment on above: Result Comment: Canc elled via OM: Order cancelled - Patient discharged Performed By: #### L 500.2500, L100.0100 ####[facility] [address] [place], [address] Basic Metabolic Profile (BMP )on 05-04-2024 BUN/CRE 11.6 RATIO Normal 10-20 [facility] Comment on above: Performed By: #### L 500.2500, L100.0100 ####[facility] [address] [place], [address] CA,Total 8.6 mg/dL Normal 8.5-10.1 [facility] Comment on above: Performed By: #### L 500.2500, L100.0100 ####[facility] [address] [place], [address] Chloride [Moles/Vol] 115 mmol/L High 98-107 [facility] Comment on above: Performed By: #### L 500.2500, L100.0100 ####[facility] [address] [place], [address] CO2 [Moles/Vol] 20.0 mmol/L Low 21.0-32.0 [facility] Comment on above: Performed By: #### L 500.2500, L100.0100 ####[facility] [address] [place], [address] Creatinine [Mass/Vol] 0.86 mg/dL Normal 0.55-1.02 [facility] Comment on above: Result Comment: The validity of the calculated GFR GFRAA in patients over70 years has not been determined. Clinical correlation isessential. Performed By: #### L 500.2500, L100.0100 ####[facility] [address] [place], [address] ECRCL 56.11 ml/min Normal [facility] Comment on above: Performed By: #### L 500.2500, L100.0100 ####[facility] [address] [place], [address] EST GFR - AA 86 mL/min Normal >60 [facility] Comment on above: Result Comment: Afri can Cymraes GFR Calc Performed By: #### L 500.2500, L100.0100 ####[facility] [address] [place], [address] GAP 4 Low 5-15 [facility] Comment on above: Performed By: #### L 500.2500, L100.0100 ####[facility] [address] [place], [address] GFR/1.73 sq M.predicted among non-blacks MDRD (S/P/Bld) [Vol rate/Area] 71 mL/min/{1.73_m2} Normal >60 [facility] Comment on above: Result Comment: Non- GFR Calc Performed By: #### L 500.2500, L100.0100 ####[facility] [address] [place], [address] Glucose [Mass/Vol] 220 mg/dL High 74-106 [facility] Comment on above: Result Comment: Gluc ose result greater than or equal to 200 mg/dLsuggests DIABETES MELLITUS per A.D.A. criteria. Performed By: #### L 500.2500, L100.0100 ####[facility] [address] [place], [address] Potassium [Moles/Vol] 3.7 mmol/L Normal 3.5-5.1 [facility] Comment on above: Performed By: #### L 500.2500, L100.0100 ####[facility] [address] [place], [address] Sodium [Moles/Vol] 139 mmol/L Normal 136-145 [facility] Comment on above: Performed By: #### L 500.2500, L100.0100 ####[facility] [address] [place], [address] Urea nitrogen [Mass/Vol] 10 mg/dL Normal 7-18 [facility] Comment on above: Performed By: #### L 500.2500, L100.0100 ####[facility] [address] [place], [address] Bedside Glucoseon 05-04-2024 FINGERSTICK GLU 176 mg/dL High [address] [place] [address] Comment on above: Result Comment: MARIA D GEMENT OF PATIENT CARE PER NURSING PROTOCOL Performed By: #### L 501.080 ####[facility] [address] [place], [address] FINGERSTICK GLU 225 mg/dL High [address] [place] [address] Comment on above: Result Comment: MARIA D GEMENT OF PATIENT CARE PER NURSING PROTOCOL Performed By: #### L 501.080 ####[facility] [address] [place], [address] CBC W/Diff, Automatedon 10-2 Absolute Lymph 1.94 X10 3/uL Normal 0.83-4.51 [facility] Comment on above: Performed By: #### L 500.2500, L100.0100 ####[facility] [address] [place], [address] Absolute Neut 2.5 X10 3/uL Normal 2.0-7.7 [facility] Comment on above: Performed By: #### L 500.2500, L100.0100 ####[facility] [address] [place], [address] Basophils/100 WBC (Bld) 0.4 % Normal 0-1 [facility] Comment on above: Performed By: #### L 500.2500, L100.0100 ####[facility] [address] [place], [address] Eosinophils/100 WBC (Bld) 1.2 % Normal 0-5 [facility] Comment on above: Performed By: #### L 500.2500, L100.0100 ####[facility] [address] [place], [address] Erythrocyte distribution width (RBC) [Ratio] 13.3 % Normal 11.6-14.6 [facility] Comment on above: Performed By: #### L 500.2500, L100.0100 ####[facility] [address] [place], [address] Hematocrit (Bld) [Volume fraction] 29.8 % Low 37-47 [facility] Comment on above: Performed By: #### L 500.2500, L100.0100 ####[facility] [address] [place], [address] Hemoglobin (Bld) [Mass/Vol] 10.1 g/dL Low 12.0-15.0 [facility] Comment on above: Performed By: #### L 500.2500, L100.0100 ####[facility] [address] [place], [address] IG% 0.200 Normal 0.0-0.9 [facility] Comment on above: Result Comment: IG% - Immature Granulocytes (promyelocytes, myelocytes andmetamyelocytes) > 1% indicates that a LEFT SHIFT is Present. Performed By: #### L 500.2500, L100.0100 ####[facility] [address] [place], [address] Lymphocytes/100 WBC (Bld) 38.9 % Normal 19-41 [facility] Comment on above: Performed By: #### L 500.2500, L100.0100 ####[facility] [address] [place], [address] MCH (RBC) [Entitic mass] 30.1 pg Normal 27.0-32.0 [facility] Comment on above: Performed By: #### L 500.2500, L100.0100 ####[facility] [address] [place], [address] MCHC (RBC) [Mass/Vol] 33.9 g/dL Normal 32-36 [facility] Comment on above: Performed By: #### L 500.2500, L100.0100 ####[facility] [address] [place], [address] MCV (RBC) [Entitic vol] 89.0 fL Normal 81-99 [facility] Comment on above: Performed By: #### L 500.2500, L100.0100 ####[facility] [address] [place], [address] Monocytes/100 WBC (Bld) 8.8 % Normal 0-10 [facility] Comment on above: Performed By: #### L 500.2500, L100.0100 ####[facility] [address] [place], [address] Neutrophils/100 WBC (Bld) 50.5 % Normal 47-70 [facility] Comment on above: Performed By: #### L 500.2500, L100.0100 ####[facility] [address] [place], [address] Nucleated RBC (Bld) [#/Vol] 0 10*3/uL Normal 0-5 [facility] Comment on above: Performed By: #### L 500.2500, L100.0100 ####[facility] [address] [place], [address] Platelet mean volume (Bld) [Entitic vol] 11.1 fL Normal 6.2-12.0 [facility] Comment on above: Performed By: #### L 500.2500, L100.0100 ####[facility] [address] [place], [address] Platelets (Bld) [#/Vol] 187 10*3/uL Normal 150-450 [facility] Comment on above: Performed By: #### L 500.2500, L100.0100 ####[facility] [address] [place], [address] RBC (Bld) [#/Vol] 3.35 10*6/uL Low 4.2-5.4 [facility] Comment on above: Performed By: #### L 500.2500, L100.0100 ####[facility] [address] [place], [address] RDW SD 43.4 fl Normal 35.1-43.9 [facility] Comment on above: Performed By: #### L 500.2500, L100.0100 ####[facility] [address] [place], [address] WBC (Bld) [#/Vol] 5.0 10*3/uL Normal 4.4-11.0 [facility] Comment on above: Performed By: #### L 500.2500, L100.0100 ####[facility] [address] [place], [address] Discharge Instructionon 04-07 Discharge Instruction Normal [facility] Urine Cultureon 05-04-2024 URC Mixed Gram Positive Organisms [place] Count 11,000-25,000 MIXC Mixed contaminants. Submit a new specimen if indicated. Normal [facility] Comment on above: Performed By: #### M 100.2200 ####[facility] [address] [place], [address] Acetone Serumon 05-03-2024 ACETONE SERUM LARGE Abnormal NEG [facility] Comment on above: Order Comment: Comme nts: If not done in the ED Result Comment: CRIT ICAL VALUE CALLED TO [id number]/28/24 0456 Mayito Chao.RESULTS READ BACK BY SAME. Performed By: #### L 501.6900 ####[facility] [address] [place], [address] Basic Metabolic Profile (BMP )on 05-03-2024 BUN Normal 7-18 [facility] Comment on above: Order Comment: Call MD with results STAT Result Comment: Canc elled via OM: MD Ordered Performed By: #### L 500.2500 ####[facility] [address] [place], [address] BUN/CRE Normal 10- [facility] Comment on above: Order Comment: Call MD with results STAT Result Comment: Canc elled via OM: MD Ordered Performed By: #### L 500.2500 ####[facility] [address] [place], [address] CA,Total Normal 8.5-10.1 [facility] Comment on above: Order Comment: Call MD with results STAT Result Comment: Canc elled via OM: MD Ordered Performed By: #### L 500.2500 ####[facility] [address] [place], [address] CL Normal 98-107 [facility] Comment on above: Order Comment: Call MD with results STAT Result Comment: Canc elled via OM: MD Ordered Performed By: #### L 500.2500 ####[facility] [address] [place], [address] CO2 Normal 21.0-32.0 [facility] Comment on above: Order Comment: Call MD with results STAT Result Comment: Canc elled via OM: MD Ordered Performed By: #### L 500.2500 ####[facility] [address] [place], [address] CREAT,SERUM Normal 0.55-1.02 [facility] Comment on above: Order Comment: Call MD with results STAT Result Comment: Canc elled via OM: MD Ordered Performed By: #### L 500.2500 ####[facility] [address] [place], [address] EST GFR Normal >60 [facility] Comment on above: Order Comment: Call MD with results STAT Result Comment: Canc elled via OM: MD Ordered Performed By: #### L 500.2500 ####[facility] [address] [place], [address] EST GFR - AA Normal >60 [facility] Comment on above: Order Comment: Call MD with results STAT Result Comment: Canc elled via OM: MD Ordered Performed By: #### L 500.2500 ####[facility] [address] [place], [address] GAP Normal 5-15 [facility] Comment on above: Order Comment: Call with results STAT Result Comment: Canc elled via OM: MD Ordered Performed By: #### L 500.2500 ####[facility] [address] [place], [address] GLU Normal 74-106 [facility] Comment on above: Order Comment: Call MD with results STAT Result Comment: Canc elled via OM: MD Ordered Performed By: #### L 500.2500 ####[facility] [address] [place], [address] Potassium Normal 3.5-5.1 [facility] Comment on above: Order Comment: Call MD with results STAT Result Comment: Canc elled via OM: MD Ordered Performed By: #### L 500.2500 ####[facility] [address] [place], [address] Basic Metabolic Profile (BMP) Normal 136-145 [facility] Comment on above: Order Comment: Call MD with results STAT Result Comment: Canc elled via OM: MD Ordered Performed By: #### L 500.2500 ####[facility] [address] [place], [address] BUN Normal 7-18 [facility] Comment on above: Order Comment: Call MD with results STAT Result Comment: Canc elled via OM: MD Ordered Performed By: #### L 500.2500 ####[facility] [address] [place], [address] BUN/CRE Normal 10-20 [facility] Comment on above: Order Comment: Call MD with results STAT Result Comment: Canc elled via OM: MD Ordered Performed By: #### L 500.2500 ####[facility] [address] [place], [address] CA,Total Normal 8.5-10.1 [facility] Comment on above: Order Comment: Call MD with results STAT Result Comment: Canc elled via OM: MD Ordered Performed By: #### L 500.2500 ####[facility] [address] [place], [address] CL Normal 98-107 [facility] Comment on above: Order Comment: Call MD with results STAT Result Comment: Canc elled via OM: MD Ordered Performed By: #### L 500.2500 ####[facility] [address] [place], [address] CO2 Normal 21.0-32.0 [facility] Comment on above: Order Comment: Call MD with results STAT Result Comment: Canc elled via OM: MD Ordered Performed By: #### L 500.2500 ####[facility] [address] [place], [address] CREAT,SERUM Normal 0.55-1.02 [facility] Comment on above: Order Comment: Call MD with results STAT Result Comment: Canc elled via OM: MD Ordered Performed By: #### L 500.2500 ####[facility] [address] [place], [address] EST GFR Normal >60 [facility] Comment on above: Order Comment: Call MD with results STAT Result Comment: Canc elled via OM: MD Ordered Performed By: #### L 500.2500 ####[facility] [address] [place], [address] EST GFR - AA Normal >60 [facility] Comment on above: Order Comment: Call MD with results STAT Result Comment: Canc elled via OM: MD Ordered Performed By: #### L 500.2500 ####[facility] [address] [place], [address] GAP Normal 5-15 [facility] Comment on above: Order Comment: Call MD with results STAT Result Comment: Canc elled via OM: MD Ordered Performed By: #### L 500.2500 ####[facility] [address] [place], [address] GLU Normal 74-106 [facility] Comment on above: Order Comment: Call MD with results STAT Result Comment: Canc elled via OM: MD Ordered Performed By: #### L 500.2500 ####[facility] [address] [place], [address] Potassium Normal 3.5-5.1 [facility] Comment on above: Order Comment: Call MD with results STAT Result Comment: Canc elled via OM: MD Ordered Performed By: #### L 500.2500 ####[facility] [address] [place], [address] Basic Metabolic Profile (BMP) Normal 136-145 [facility] Comment on above: Order Comment: Call MD with results STAT Result Comment: Canc elled via OM: MD Ordered Performed By: #### L 500.2500 ####[facility] [address] [place], [address] BUN Normal 7-18 [facility] Comment on above: Order Comment: Call MD with results STAT Result Comment: Canc elled via OM: MD Ordered Performed By: #### L 500.2500 ####[facility] [address] [place], [address] BUN/CRE Normal 10-20 [facility] Comment on above: Order Comment: Call MD with results STAT Result Comment: Canc elled via OM: MD Ordered Performed By: #### L 500.2500 ####[facility] [address] [place], [address] CA,Total Normal 8.5-10.1 [facility] Comment on above: Order Comment: Call MD with results STAT Result Comment: Canc elled via OM: MD Ordered Performed By: #### L 500.2500 ####[facility] [address] [place], [address] CL Normal 98-107 [facility] Comment on above: Order Comment: Call MD with results STAT Result Comment: Canc elled via OM: MD Ordered Performed By: #### L 500.2500 ####[facility] [address] [place], [address] CO2 Normal 21.0-32.0 [facility] Comment on above: Order Comment: Call MD with results STAT Result Comment: Canc elled via OM: MD Ordered Performed By: #### L 500.2500 ####[facility] [address] [place], [address] CREAT,SERUM Normal 0.55-1.02 [facility] Comment on above: Order Comment: Call MD with results STAT Result Comment: Canc elled via OM: MD Ordered Performed By: #### L 500.2500 ####[facility] [address] [place], [address] EST GFR Normal >60 [facility] Comment on above: Order Comment: Call MD with results STAT Result Comment: Canc elled via OM: MD Ordered Performed By: #### L 500.2500 ####[facility] [address] [place], [address] EST GFR - AA Normal >60 [facility] Comment on above: Order Comment: Call MD with results STAT Result Comment: Canc elled via OM: MD Ordered Performed By: #### L 500.2500 ####[facility] [address] [place], [address] GAP Normal 5-15 [facility] Comment on above: Order Comment: Call MD with results STAT Result Comment: Canc elled via OM: MD Ordered Performed By: #### L 500.2500 ####[facility] [address] [place], [address] GLU Normal 74-106 [facility] Comment on above: Order Comment: Call MD with results STAT Result Comment: Canc elled via OM: MD Ordered Performed By: #### L 500.2500 ####[facility] [address] [place], [address] Potassium Normal 3.5-5.1 [facility] Comment on above: Order Comment: Call MD with results STAT Result Comment: Canc elled via OM: MD Ordered Performed By: #### L 500.2500 ####[facility] [address] [place], [address] Basic Metabolic Profile (BMP) Normal 136-145 [facility] Comment on above: Order Comment: Call MD with results STAT Result Comment: Canenedina elled via OM: MD Ordered Performed By: #### L 500.2500 ####[facility] [address] [place], [address] BUN/CRE 16.6 RATIO Normal 10-20 [facility] Comment on above: Order Comment: Call MD with results STAT Performed By: #### L 500.2500 ####[facility] [address] [place], [address] CA,Total 8.6 mg/dL Normal 8.5-10.1 [facility] Comment on above: Order Comment: Call MD with results STAT Performed By: #### L 500.2500 ####[facility] [address] [place], [address] Chloride [Moles/Vol] 117 mmol/L High 98-107 [facility] Comment on above: Order Comment: Call MD with results STAT Performed By: #### L 500.2500 ####[facility] [address] [place], [address] CO2 [Moles/Vol] 18.0 mmol/L Low 21.0-32.0 [facility] Comment on above: Order Comment: Call MD with results STAT Performed By: #### L 500.2500 ####[facility] [address] [place], [address] Creatinine [Mass/Vol] 0.90 mg/dL Normal 0.55-1.02 [facility] Comment on above: Order Comment: Call MD with results STAT Result Comment: The validity of the calculated GFR GFRAA in patients over70 years has not been determined. Clinical correlation isessential. Performed By: #### L 500.2500 ####[facility] [address] [place], [address] ECRCL 53.41 ml/min Normal [facility] Comment on above: Order Comment: Call MD with results STAT Performed By: #### L 500.2500 ####[facility] [address] [place], [address] EST GFR - AA 82 mL/min Normal >60 [facility] Comment on above: Order Comment: Call MD with results STAT Result Comment: Afri can Cymraes GFR Calc Performed By: #### L 500.2500 ####[facility] [address] [place], [address] GAP 4 Low 5-15 [facility] Comment on above: Order Comment: Call MD with results STAT Performed By: #### L 500.2500 ####[facility] [address] [place], [address] GFR/1.73 sq M.predicted among non-blacks MDRD (S/P/Bld) [Vol rate/Area] 67 mL/min/{1.73_m2} Normal >60 [facility] Comment on above: Order Comment: Call MD with results STAT Result Comment: Non- GFR Calc Performed By: #### L 500.2500 ####[facility] [address] [place], [address] Glucose [Mass/Vol] 119 mg/dL High 74-106 [facility] Comment on above: Order Comment: Call MD with results STAT Result Comment: Fast ing Glucose result from 100 to 125 mg/dLsuggests IMPAIRED HOMEOSTASIS per A.D.A. criteria. Performed By: #### L 500.2500 ####[facility] [address] [place], [address] Potassium [Moles/Vol] 3.3 mmol/L Low 3.5-5.1 [facility] Comment on above: Order Comment: Call MD with results STAT Performed By: #### L 500.2500 ####[facility] [address] [place], [address] Sodium [Moles/Vol] 138 mmol/L Normal 136-145 [facility] Comment on above: Order Comment: Call MD with results STAT Performed By: #### L 500.2500 ####[facility] [address] [place], [address] Urea nitrogen [Mass/Vol] 15 mg/dL Normal 7-18 [facility] Comment on above: Order Comment: Call MD with results STAT Performed By: #### L 500.2500 ####[facility] [address] [place], [address] BUN/CRE 16.1 RATIO Normal 10-20 [facility] Comment on above: Performed By: #### L 500.2500 ####[facility] [address] [place], [address] CA,Total 8.4 mg/dL Low 8.5-10.1 [facility] Comment on above: Performed By: #### L 500.2500 ####[facility] [address] [place], [address] Chloride [Moles/Vol] 114 mmol/L High 98-107 [facility] Comment on above: Performed By: #### L 500.2500 ####[facility] [address] [place], [address] CO2 [Moles/Vol] 17.0 mmol/L Low 21.0-32.0 [facility] Comment on above: Performed By: #### L 500.2500 ####[facility] [address] [place], [address] Creatinine [Mass/Vol] 0.99 mg/dL Normal 0.55-1.02 [facility] Comment on above: Result Comment: The validity of the calculated GFR GFRAA in patients over70 years has not been determined. Clinical correlation isessential. Performed By: #### L 500.2500 ####[facility] [address] [place], [address] ECRCL 48.55 ml/min Normal [facility] Comment on above: Performed By: #### L 500.2500 ####[facility] [address] [place], [address] EST GFR - AA 73 mL/min Normal >60 [facility] Comment on above: Result Comment: Afri can Cymraes GFR Calc Performed By: #### L 500.2500 ####[facility] [address] [place], [address] GAP 9 Normal 5-15 [facility] Comment on above: Performed By: #### L 500.2500 ####[facility] [address] [place], [address] GFR/1.73 sq M.predicted among non-blacks MDRD (S/P/Bld) [Vol rate/Area] 60 mL/min/{1.73_m2} Normal >60 [facility] Comment on above: Result Comment: Non- GFR Calc Performed By: #### L 500.2500 ####[facility] [address] [place], [address] Glucose [Mass/Vol] 190 mg/dL High 74-106 [facility] Comment on above: Result Comment: Fast ing Glucose result greater than or equal to 126 mg/dLsuggests DIABETES MELLITUS per A.D.A. criteria. Performed By: #### L 500.2500 ####[facility] [address] [place], [address] Potassium [Moles/Vol] 3.5 mmol/L Normal 3.5-5.1 [facility] Comment on above: Performed By: #### L 500.2500 ####[facility] [address] [place] [place], [address] Sodium [Moles/Vol] 140 mmol/L Normal 136-145 [facility] Comment on above: Performed By: #### L 500.2500 ####[facility] [address], [address] Urea nitrogen [Mass/Vol] 16 mg/dL Normal 7-18 [facility] Comment on above: Performed By: #### L 500.2500 ####[facility] [address] [place], [address] BUN/CRE 18.8 RATIO Normal 10-20 [facility] Comment on above: Order Comment: Comme nts: SPECIMEN #3'TROP' Serial specimen #1, #2 or #3: Alex RICH with results STAT Performed By: #### L 501.2300, L100.0100, L500.2500, L501.4020, L501.9520 ####[facility] [address] [place], [address] CA,Total 8.5 mg/dL Normal 8.5-10.1 [facility] Comment on above: Order Comment: Comme nts: SPECIMEN #3'TROP' Serial specimen #1, #2 or #3: Alex RICH with results STAT Performed By: #### L 501.2300, L100.0100, L500.2500, L501.4020, L501.9520 ####[facility] [address] [place], [address] Chloride [Moles/Vol] 114 mmol/L High 98-107 [facility] Comment on above: Order Comment: Comme nts: SPECIMEN #3'TROP' Serial specimen #1, #2 or #3: Alex RICH with results STAT Performed By: #### L 501.2300, L100.0100, L500.2500, L501.4020, L501.9520 ####[facility] [address] [place], [address] CO2 [Moles/Vol] 12.0 mmol/L Low 21.0-32.0 [facility] Comment on above: Order Comment: Comme nts: SPECIMEN #3'TROP' Serial specimen #1, #2 or #3: Alex RICH with results STAT Performed By: #### L 501.2300, L100.0100, L500.2500, L501.4020, L501.9520 ####[facility] [address] [place], [address] Creatinine [Mass/Vol] 1.01 mg/dL Normal 0.55-1.02 [facility] Comment on above: Order Comment: Comme nts: SPECIMEN #3'TROP' Serial specimen #1, #2 or #3: Alex RICH with results STAT Result Comment: The validity of the calculated GFR GFRAA in patients over70 years has not been determined. Clinical correlation isessential. Performed By: #### L 501.2300, L100.0100, L500.2500, L501.4020, L501.9520 ####[facility] [address] [place], [address] ECRCL 47.59 ml/min Normal [facility] Comment on above: Order Comment: Comme nts: SPECIMEN #3'TROP' Serial specimen #1, #2 or #3: Alex RICH with results STAT Performed By: #### L 501.2300, L100.0100, L500.2500, L501.4020, L501.9520 ####[facility] [address] [place], [address] EST GFR - AA 71 mL/min Normal >60 [facility] Comment on above: Order Comment: Comme nts: SPECIMEN #3'TROP' Serial specimen #1, #2 or #3: Alex RICH with results STAT Result Comment: Afri can Cymraes GFR Calc Performed By: #### L 501.2300, L100.0100, L500.2500, L501.4020, L501.9520 ####[facility] [address], [address] GAP 12 Normal 5-15 [facility] Comment on above: Order Comment: Comme nts: SPECIMEN #3'TROP' Serial specimen #1, #2 or #3: Alex RICH with results STAT Performed By: #### L 501.2300, L100.0100, L500.2500, L501.4020, L501.9520 ####[facility] [address] [place], [address] GFR/1.73 sq M.predicted among non-blacks MDRD (S/P/Bld) [Vol rate/Area] 59 mL/min/{1.73_m2} Low >60 [facility] Comment on above: Order Comment: Comme nts: SPECIMEN #3'TROP' Serial specimen #1, #2 or #3: Alex RICH with results STAT Result Comment: Non- GFR Calc Performed By: #### L 501.2300, L100.0100, L500.2500, L501.4020, L501.9520 ####[facility] [address] [place], [address] Glucose [Mass/Vol] 241 mg/dL High 74-106 [facility] Comment on above: Order Comment: Comme nts: SPECIMEN #3'TROP' Serial specimen #1, #2 or #3: Alex RICH with results STAT Result Comment: Gluc ose result greater than or equal to 200 mg/dLsuggests DIABETES MELLITUS per A.D.A. criteria. Performed By: #### L 501.2300, L100.0100, L500.2500, L501.4020, L501.9520 ####[facility] [address] [place], [address] Potassium [Moles/Vol] 3.8 mmol/L Normal 3.5-5.1 [facility] Comment on above: Order Comment: Comme nts: SPECIMEN #3'TROP' Serial specimen #1, #2 or #3: Alex RICH with results STAT Performed By: #### L 501.2300, L100.0100, L500.2500, L501.4020, L501.9520 ####[facility] [address] [place], [address] Sodium [Moles/Vol] 137 mmol/L Normal 136-145 [facility] Comment on above: Order Comment: Comme nts: SPECIMEN #3'TROP' Serial specimen #1, #2 or #3: Alex RICH with results STAT Performed By: #### L 501.2300, L100.0100, L500.2500, L501.4020, L501.9520 ####[facility] [address] [place], [address] Urea nitrogen [Mass/Vol] 19 mg/dL High 7-18 [facility] Comment on above: Order Comment: Comme nts: SPECIMEN #3'TROP' Serial specimen #1, #2 or #3: Alex RICH with results STAT Performed By: #### L 501.2300, L100.0100, L500.2500, L501.4020, L501.9520 ####[facility] [address] [place], [address] BUN Normal 7-18 [facility] Comment on above: Result Comment: Canc elled via OM: Duplicate Order Performed By: #### L 500.2500 ####[facility] [address] [place], [address] BUN/CRE Normal 10-20 [facility] Comment on above: Result Comment: Canc elled via OM: Duplicate Order Performed By: #### L 500.2500 ####[facility] [address] [place], [address] CA,Total Normal 8.5-10.1 [facility] Comment on above: Result Comment: Canc elled via OM: Duplicate Order Performed By: #### L 500.2500 ####[facility] [address] [place], [address] CL Normal 98-107 [facility] Comment on above: Result Comment: Canc elled via OM: Duplicate Order Performed By: #### L 500.2500 ####[facility] [address] [place], [address] CO2 Normal 21.0-32.0 [facility] Comment on above: Result Comment: Canc elled via OM: Duplicate Order Performed By: #### L 500.2500 ####[facility] [address] [place], [address] CREAT,SERUM Normal 0.55-1.02 [facility] Comment on above: Result Comment: Canc elled via OM: Duplicate Order Performed By: #### L 500.2500 ####[facility] [address] [place], [address] EST GFR Normal >60 [facility] Comment on above: Result Comment: Canc elled via OM: Duplicate Order Performed By: #### L 500.2500 ####[facility] [address] [place], [address] EST GFR - AA Normal >60 [facility] Comment on above: Result Comment: Canc elled via OM: Duplicate Order Performed By: #### L 500.2500 ####[facility] [address] [place], [address] GAP Normal 5-15 [facility] Comment on above: Result Comment: Canc elled via OM: Duplicate Order Performed By: #### L 500.2500 ####[facility] [address] [place], [address] GLU Normal 74-106 [facility] Comment on above: Result Comment: Canc elled via OM: Duplicate Order Performed By: #### L 500.2500 ####[facility] [address] [place], [address] Potassium Normal 3.5-5.1 [facility] Comment on above: Result Comment: Canc elled via OM: Duplicate Order Performed By: #### L 500.2500 ####[facility] [address] [place], [address] Basic Metabolic Profile (BMP) Normal 136-145 [facility] Comment on above: Result Comment: Canc elled via OM: Duplicate Order Performed By: #### L 500.2500 ####[facility] [address] [place], [address] BUN/CRE 18.8 RATIO Normal 10-20 [facility] Comment on above: Order Comment: Comme nts: SPECIMEN #2'TROP' Serial specimen #1, #2 or #3: Mejia RICH with results STAT Performed By: #### L 500.2500, L501.4020 ####[facility] [address] [place], [address] CA,Total 9.2 mg/dL Normal 8.5-10.1 [facility] Comment on above: Order Comment: Comme nts: SPECIMEN #2'TROP' Serial specimen #1, #2 or #3: Mejia RICH with results STAT Performed By: #### L 500.2500, L501.4020 ####[facility] [address] [place], [address] Chloride [Moles/Vol] 106 mmol/L Normal 98-107 [facility] Comment on above: Order Comment: Comme nts: SPECIMEN #2'TROP' Serial specimen #1, #2 or #3: Mejia RICH with results STAT Performed By: #### L 500.2500, L501.4020 ####[facility] [address] [place], [address] CO2 [Moles/Vol] 9.0 mmol/L Invalid Interpretation Code 21.0-32.0 [facility] Comment on above: Order Comment: Comme nts: SPECIMEN #2'TROP' Serial specimen #1, #2 or #3: Mejia RICH with results STAT Result Comment: Crit ical Result(s) Called at: 00:31:10 05/03/2024 by: NoahBurns. MIK Dennis RN ICU. Results read back by same. Performed By: #### L 500.2500, L501.4020 ####[facility] [address] [place], [address] Creatinine [Mass/Vol] 1.17 mg/dL High 0.55-1.02 [facility] Comment on above: Order Comment: Comme nts: SPECIMEN #2'TROP' Serial specimen #1, #2 or #3: Mejia RICH with results STAT Result Comment: The validity of the calculated GFR GFRAA in patients over70 years has not been determined. Clinical correlation isessential. Performed By: #### L 500.2500, L501.4020 ####[facility] [address] [place], [address] ECRCL 41.08 ml/min Normal [facility] Comment on above: Order Comment: Comme nts: SPECIMEN #2'TROP' Serial specimen #1, #2 or #3: Mejia RICH with results STAT Performed By: #### L 500.2500, L501.4020 ####[facility] [address] [place], [address] EST GFR - AA 60 mL/min Normal >60 [facility] Comment on above: Order Comment: Comme nts: SPECIMEN #2'TROP' Serial specimen #1, #2 or #3: Mejia RICH with results STAT Result Comment: Afri can Cymraes GFR Calc Performed By: #### L 500.2500, L501.4020 ####[facility] [address] [place], [address] GAP 21 High 5-15 [facility] Comment on above: Order Comment: Comme nts: SPECIMEN #2'TROP' Serial specimen #1, #2 or #3: Mejia RICH with results STAT Performed By: #### L 500.2500, L501.4020 ####[facility] [address] [place], [address] GFR/1.73 sq M.predicted among non-blacks MDRD (S/P/Bld) [Vol rate/Area] 50 mL/min/{1.73_m2} Low >60 [facility] Comment on above: Order Comment: Comme nts: SPECIMEN #2'TROP' Serial specimen #1, #2 or #3: Mejia RICH with results STAT Result Comment: Non- GFR Calc Performed By: #### L 500.2499, L501.4020 ####[facility] [address] [place], [address] Glucose [Mass/Vol] 419 mg/dL High 74-106 [facility] Comment on above: Order Comment: Comme nts: SPECIMEN #2'TROP' Serial specimen #1, #2 or #3: Mejia RICH with results STAT Result Comment: Gluc ose result greater than or equal to 200 mg/dLsuggests DIABETES MELLITUS per A.D.A. criteria. Performed By: #### L 500.2499, L501.4020 ####[facility] [address] [place], [address] Potassium [Moles/Vol] 4.2 mmol/L Normal 3.5-5.1 [facility] Comment on above: Order Comment: Comme nts: SPECIMEN #2'TROP' Serial specimen #1, #2 or #3: Mejia RICH with results STAT Performed By: #### L 500.2499, L501.4020 ####[facility] [address], [address] Sodium [Moles/Vol] 136 mmol/L Normal 136-145 [facility] Comment on above: Order Comment: Comme nts: SPECIMEN #2'TROP' Serial specimen #1, #2 or #3: Mejia RICH with results STAT Performed By: #### L 500.2499, L501.4020 ####[facility] [address], [address] Urea nitrogen [Mass/Vol] 22 mg/dL High 7-18 [facility] Comment on above: Order Comment: Comme nts: SPECIMEN #2'TROP' Serial specimen #1, #2 or #3: Mejia RICH with results STAT Performed By: #### L 500.2499, L501.4020 ####[facility] [address] [place], [address] Bedside Glucoseon 05-03-2024 FINGERSTICK GLU 293 mg/dL High -106 [facility] Comment on above: Result Comment: MARIA D GEMENT OF PATIENT CARE PER NURSING PROTOCOL Performed By: #### L 501.080 ####[facility] [address] [place], [address] FINGERSTICK GLU 154 mg/dL High 74-106 [facility] Comment on above: Result Comment: MARIA D GEMENT OF PATIENT CARE PER NURSING PROTOCOL Performed By: #### L 501.080 ####[facility] [address] [place], [address] FINGERSTICK GLU 114 mg/dL High -106 [facility] Comment on above: Result Comment: MARIA D GEMENT OF PATIENT CARE PER NURSING PROTOCOL Performed By: #### L 501.080 ####[facility] [address] [place], [address] FINGERSTICK GLU 114 mg/dL High [facility]106 [facility] Comment on above: Result Comment: MARIA D GEMENT OF PATIENT CARE PER NURSING PROTOCOL Performed By: #### L 501.080 ####[facility] [address] [place], [address] FINGERSTICK GLU 108 mg/dL High 74-106 [facility] Comment on above: Result Comment: MARIA D GEMENT OF PATIENT CARE PER NURSING PROTOCOL Performed By: #### L 501.080 ####[facility] [address] [place], [address] FINGERSTICK GLU 121 mg/dL High -106 [facility] Comment on above: Result Comment: MARIA D GEMENT OF PATIENT CARE PER NURSING PROTOCOL Performed By: #### L 501.080 ####[facility] [address] [place], [address] FINGERSTICK GLU 183 mg/dL High 74-106 [facility] Comment on above: Result Comment: MARIA D GEMENT OF PATIENT CARE PER NURSING PROTOCOL Performed By: #### L 501.080 ####[facility] [address] [place], [address] FINGERSTICK GLU 196 mg/dL High [address] [place] [address] Comment on above: Result Comment: MARIA D GEMENT OF PATIENT CARE PER NURSING PROTOCOL Performed By: #### L 501.080 ####[facility] [address] [place], [address] FINGERSTICK GLU 212 mg/dL High [address] [place] [address] Comment on above: Result Comment: MARIA D GEMENT OF PATIENT CARE PER NURSING PROTOCOL Performed By: #### L 501.080 ####[facility] [address] [place], [address] FINGERSTICK GLU 211 mg/dL High [address] [place] [address] Comment on above: Result Comment: MARIA D GEMENT OF PATIENT CARE PER NURSING PROTOCOL Performed By: #### L 501.080 ####[facility] [address] [place], [address] FINGERSTICK GLU 244 mg/dL High [address] [place] [address] Comment on above: Result Comment: MARIA D GEMENT OF PATIENT CARE PER NURSING PROTOCOL Performed By: #### L 501.080 ####[facility] [address] [place], [address] FINGERSTICK GLU 218 mg/dL High [address] [place] [address] Comment on above: Result Comment: MARIA D GEMENT OF PATIENT CARE PER NURSING PROTOCOL Performed By: #### L 501.080 ####[facility] [address] [place], [address] FINGERSTICK GLU 277 mg/dL High [address] [place] [address] Comment on above: Result Comment: MARIA D GEMENT OF PATIENT CARE PER NURSING PROTOCOL Performed By: #### L 501.080 ####[facility] [address] [place], [address] FINGERSTICK GLU 333 mg/dL High 74-106 [facility] Comment on above: Result Comment: MARIA D SERRANO OF PATIENT CARE PER NURSING PROTOCOL Performed By: #### L 501.080 ####[facility] [address] [place], [address] [facility] 024 SHAWNA TEST Positive Normal [facility] Comment on above: Performed By: #### L 9000.0800 ####[facility] [address] [place], [address] Base excess Calc (Bld) [Moles/Vol] -19 mmol/L Low -2 to +2 [facility] Comment on above: Performed By: #### L 9000.0800 ####[facility] [address] [place], [address] Blood Gas Type ART [facility] Comment on above: Performed By: #### L 9000.0800 ####[facility] [address] [place], [address] CO2 [Moles/Vol] 10 mmol/L [facility] Comment on above: Performed By: #### L 9000.0800 ####[facility] [address] [place], [address] HCO3 (Bld) [Moles/Vol] 8.9 mmol/L Low 22-26 [facility] Comment on above: Performed By: #### L 9000.0800 ####[facility] [address] [place], [address] Mode Not entered [facility] Comment on above: Performed By: #### L 9000.0800 ####[facility] [address] [place], [address] O2 Delivery Dev Room Air [facility] Comment on above: Performed By: #### L 9000.0800 ####[facility] [address] [place], [address] pCO2 22.5 mmHg Low 35-45 [facility] Comment on above: Performed By: #### L 9000.0800 ####[facility] [address] [place], [address] pH (Bld) 7.20 [pH] Low 7.35-7.45 [facility] Comment on above: Performed By: #### L 9000.0800 ####[facility] [address] [place], [address] PO2 103 mmHG High 75-100 [facility] Comment on above: Performed By: #### L 9000.0800 ####[facility] [address] [place], [address] Read Back By Yes [facility] Comment on above: Performed By: #### L 9000.0800 ####[facility] [address] [place], [address] smith [facility] Comment on above: Performed By: #### L 9000.0800 ####[facility] [address] [place], [address] SITE R Radial Normal [facility] Comment on above: Performed By: #### L 9000.0800 ####[facility] [address] [place], [address] SO2 97 Normal 95-99 [facility] Comment on above: Performed By: #### L 9000.0800 ####[facility] [address] [place], [address] Time Given 21:30:27 [facility] Comment on above: Performed By: #### L 9000.0800 ####[facility] [address] [place], [address] SHAWNA TEST Positive Normal [facility] Comment on above: Performed By: #### L 8999.08 ####[facility] [address] [place], [address] Base excess Calc (Bld) [Moles/Vol] -22 mmol/L Low -2 to +2 [facility] Comment on above: Performed By: #### L 8999.0800 ####[facility] [address] [place], [address] Blood Gas Type ART [facility] Comment on above: Performed By: #### L 8999.0800 ####[facility] [address] [place], [address] CO2 [Moles/Vol] 8 mmol/L [facility] Comment on above: Performed By: #### L 8999.08 ####[facility] [address] [place], [address] HCO3 (Bld) [Moles/Vol] 6.9 mmol/L Low 22-26 [facility] Comment on above: Performed By: #### L 8999.0800 ####[facility] [address] [place], [address] Mode Not entered Normal [facility] Comment on above: Performed By: #### L 8999.0800 ####[facility] [address] [place], [address] O2 Delivery Dev Room Air [facility] Comment on above: Performed By: #### L 8999.0800 ####[facility] [address] [place], [address] pCO2 20.7 mmHg Low 35-45 [facility] Comment on above: Performed By: #### L 8999.0800 ####[facility] [address] [place], [address] pH (Bld) 7.13 [pH] Invalid Interpretation Code 7.35-7.45 [facility] Comment on above: Performed By: #### L 8999.0800 ####[facility] [address] [place], [address] PO2 95 mmHG Normal 75-100 [facility] Comment on above: Performed By: #### L 0.0800 ####[facility] [address] [place], [address] Read Back By Yes Normal [facility] Comment on above: Performed By: #### L 8999.0800 ####[facility] [address] [place], [address] Fernández [facility] Comment on above: Performed By: #### L 0.0800 ####[facility] [address] [place], [address] SITE L Radial Normal [facility] Comment on above: Performed By: #### L 8999.0800 ####[facility] [address] [place], [address] SO2 95 Normal 95-99 [facility] Comment on above: Performed By: #### L 8999.0800 ####[facility] [address] [place], [address] Time Given 00:38:43 [facility] Comment on above: Performed By: #### L 8999.0800 ####[facility] [address] [place], [address] CBC W/Diff, Automatedon 10-2 Absolute Lymph 2.67 X10 3/uL Normal 0.83-4.51 [facility] Comment on above: Performed By: #### L 501.2300, L100.0100, L500.2500, L501.4020, L501.9520 ####[facility] [address] [place], [address] Absolute Neut 5.5 X10 3/uL Normal 2.0-7.7 [facility] Comment on above: Performed By: #### L 501.2300, L100.0100, L500.2500, L501.4020, L501.9520 ####[facility] [address] [place], [address] Basophils/100 WBC (Bld) 0.4 % Normal 0-1 [facility] Comment on above: Performed By: #### L 501.2300, L100.0100, L500.2500, L501.4020, L501.9520 ####[facility] [address] [place], [address] Eosinophils/100 WBC (Bld) 0.2 % Normal 0-5 [facility] Comment on above: Performed By: #### L 501.2300, L100.0100, L500.2500, L501.4020, L501.9520 ####[facility] [address] [place], [address] Erythrocyte distribution width (RBC) [Ratio] 13.0 % Normal 11.6-14.6 [facility] Comment on above: Performed By: #### L 501.2300, L100.0100, L500.2500, L501.4020, L501.9520 ####[facility] [address] [place], [address] Hematocrit (Bld) [Volume fraction] 30.3 % Low 37-47 [facility] Comment on above: Performed By: #### L 501.2300, L100.0100, L500.2500, L501.4020, L501.9520 ####[facility] [address] [place], [address] Hemoglobin (Bld) [Mass/Vol] 10.0 g/dL Low 12.0-15.0 [facility] Comment on above: Performed By: #### L 501.2300, L100.0100, L500.2500, L501.4020, L501.9520 ####[facility] [address] [place], [address] IG% 0.600 Normal 0.0-0.9 [facility] Comment on above: Result Comment: IG% - Immature Granulocytes (promyelocytes, myelocytes andmetamyelocytes) > 1% indicates that a LEFT SHIFT is Present. Performed By: #### L 501.2300, L100.0100, L500.2500, L501.4020, L501.9520 ####[facility] [address] [place], [address] Lymphocytes/100 WBC (Bld) 29.5 % Normal 19-41 [facility] Comment on above: Performed By: #### L 501.2300, L100.0100, L500.2500, L501.4020, L501.9520 ####[facility] [address] [place], [address] MCH (RBC) [Entitic mass] 29.9 pg Normal 27.0-32.0 [facility] Comment on above: Performed By: #### L 501.2300, L100.0100, L500.2500, L501.4020, L501.9520 ####[facility] [address] [place], [address] MCHC (RBC) [Mass/Vol] 33.0 g/dL Normal 32-36 [facility] Comment on above: Performed By: #### L 501.2300, L100.0100, L500.2500, L501.4020, L501.9520 ####[facility] [address] [place], [address] MCV (RBC) [Entitic vol] 90.7 fL Normal 81-99 [facility] Comment on above: Performed By: #### L 501.2300, L100.0100, L500.2500, L501.4020, L501.9520 ####[facility] [address] [place], [address] Monocytes/100 WBC (Bld) 8.6 % Normal 0-10 [facility] Comment on above: Performed By: #### L 501.2300, L100.0100, L500.2500, L501.4020, L501.9520 ####[facility] [address] [place], [address] Neutrophils/100 WBC (Bld) 60.7 % Normal 47-70 [facility] Comment on above: Performed By: #### L 501.2300, L100.0100, L500.2500, L501.4020, L501.9520 ####[facility] [address] [place], [address] Nucleated RBC (Bld) [#/Vol] 0 10*3/uL Normal 0-5 [facility] Comment on above: Performed By: #### L 501.2300, L100.0100, L500.2500, L501.4020, L501.9520 ####[facility] [address] [place], [address] Platelet mean volume (Bld) [Entitic vol] 11.9 fL Normal 6.2-12.0 [facility] Comment on above: Performed By: #### L 501.2300, L100.0100, L500.2500, L501.4020, L501.9520 ####[facility] [address] [place], [address] Platelets (Bld) [#/Vol] 224 10*3/uL Normal 150-450 [facility] Comment on above: Performed By: #### L 501.2300, L100.0100, L500.2500, L501.4020, L501.9520 ####[facility] [address] [place], [address] RBC (Bld) [#/Vol] 3.34 10*6/uL Low 4.2-5.4 [facility] Comment on above: Performed By: #### L 501.2300, L100.0100, L500.2500, L501.4020, L501.9520 ####[facility] [address] [place], [address] RDW SD 42.6 fl Normal 35.1-43.9 [facility] Comment on above: Performed By: #### L 501.2300, L100.0100, L500.2500, L501.4020, L501.9520 ####[facility] [address] [place], [address] WBC (Bld) [#/Vol] 9.1 10*3/uL Normal 4.4-11.0 [facility] Comment on above: Performed By: #### L 501.2300, L100.0100, L500.2500, L501.4020, L501.9520 ####[facility] [address] [place], [address] Hemoglobin A1con 05-03-2024 HbA1c (Bld) [Mass fraction] 13.7 % High 3.8-5.6 [facility] Comment on above: Result Comment: Norm al < 5.7 % Prediabetic 5.7 - 6.4 % Diabetic >or= 6.5 % Please note range changes. Performed By: #### L 505.5000, L500.2500, L501.9985 ####[facility] [address] [place], [address] L501.4020on 05-03-2024 TROPONIN-I HS 9 pg/mL Normal 3.0-54.0 [facility] Comment on above: Order Comment: Comme nts: SPECIMEN #3'TROP' Serial specimen #1, #2 or #3: Alex RICH with results STAT Result Comment: Plea se Note: New Test Units and Gender Specific Reference Ranges. For more information see Policy Stat Procedure [place] High Sensitivity Troponin (TNIH) and attachments. Performed By: #### L 501.2300, L100.0100, L500.2500, L501.4020, L501.9520 ####[facility] [address] [place], [address] TROPONIN-I HS 8 pg/mL Normal 3.0-54.0 [facility] Comment on above: Order Comment: Comme nts: SPECIMEN #2'TROP' Serial specimen #1, #2 or #3: Mejia RICH with results STAT Result Comment: Plea se Note: New Test Units and Gender Specific Reference Ranges. For more information see Policy Stat Procedure [place] High Sensitivity Troponin (TNIH) and attachments. Performed By: #### L 500.2500, L501.4020 ####[facility] [address] [place], [address] Phosphoruson 05-03-2024 Phosphate [Mass/Vol] 2.1 mg/dL Low 2.5-4.9 [facility] Comment on above: Order Comment: Comme nts: SPECIMEN #3'TROP' Serial specimen #1, #2 or #3: Alex RICH with results STAT Performed By: #### L 501.2300, L100.0100, L500.2500, L501.4020, L501.9520 ####[facility] [address] [place], [address] Thyroid Stim Hormone (TSH)on 05-03-2024 TSH 0.332 uIU/mL Low 0.358-3.740 [facility] Comment on above: Order Comment: Comme nts: SPECIMEN #3'TROP' Serial specimen #1, #2 or #3: Alex RICH with results STAT Performed By: #### L 501.2300, L100.0100, L500.2500, L501.4020, L501.9520 ####[facility] [address] [place] [id number] Urine Drug Screen (VISTA)on 05-03-2024 AMPHETAMINES Negative Normal <1000 ng/mL [facility] Comment on above: Order Comment: U Performed By: #### L 505.5000 ####[facility] [address] [place] [phone] BARBITIURATES Negative Normal < 200 ng/mL [facility] Comment on above: Order Comment: U Performed By: #### L 505.5000 ####[facility] [address] [place] [address] BENZODIAZIPINE Negative Normal < 200 ng/mL [facility] Comment on above: Order Comment: U Performed By: #### L 505.5000 ####[facility] [address] [place] [address] COCAINE Negative Normal < 300 ng/mL [facility] Comment on above: Order Comment: U Performed By: #### L 505.5000 ####[facility] [address] [place], [address] ECSTACY Negative Normal < 500 ng/mL [facility] Comment on above: Order Comment: U Performed By: #### L 505.5000 ####[facility] [address] [place] [phone] METHADONE Negative Normal < 300 ng/mL [facility] Comment on above: Order Comment: U Performed By: #### L 505.5000 ####[facility] [address] [place] [phone] OPIATES Positive Abnormal < 300 ng/mL [facility] Comment on above: Order Comment: U Performed By: #### L 505.5000 ####[facility] [address] [place], [address] PCP Negative Normal < 25 ng/mL [facility] Comment on above: Order Comment: U Performed By: #### L 505.5000 ####[facility] [address] [place], [address] THC Negative Normal < 50 ng/mL [facility] Comment on above: Order Comment: U Performed By: #### L 505.5000 ####[facility] [address] [place], [address] VISTA UDS PH 5 Normal [facility] Comment on above: Order Comment: U Performed By: #### L 505.5000 ####[facility] [address] [place], [address] Venous Blood Gason 4 Blood Gas Type LIZY Normal [facility] Comment on above: Performed By: #### L 9000.0810 ####[facility] [address] [place], [address] CO2 [Moles/Vol] 17 mmol/L Low 23-33 [facility] Comment on above: Performed By: #### L 9000.0810 ####[facility] [address] [place], [address] FI02 21.0 Normal [facility] Comment on above: Performed By: #### L 9000.0810 ####[facility] [address] [place], [address] HCO3 (Bld) [Moles/Vol] 15 mmol/L Low 22-26 [facility] Comment on above: Performed By: #### L 9000.0810 ####[facility] [address] [place], [address] O2 Delivery Dev Not entered Normal [facility] Comment on above: Performed By: #### L 9000.0810 ####[facility] [address] [place], [address] SITE Not entered Normal [facility] Comment on above: Performed By: #### L 9000.0810 ####[facility] [address] [place], [address] VBG BE -12 mmol/L Low -1.0-3.5 [facility] Comment on above: Performed By: #### L 9000.0810 ####[facility] [address] [place], [address] VBG pCO2 38.2 mmHg Low 41-51 [facility] Comment on above: Performed By: #### L 9000.0810 ####[facility] [address] [place], [address] VBG pH 7.21 Low 7.32-7.42 [facility] Comment on above: Performed By: #### L 9000.0810 ####[facility] [address] [place], [address] VBG PO2 71 mmHg High 25-40 [facility] Comment on above: Performed By: #### L 9000.0810 ####[facility] [address] [place], [address] VBG SO2 90 High 50-70 [facility] Comment on above: Performed By: #### L 9000.0810 ####[facility] [address] [place], [address] 12 Lead EKGon 05-02-2024 12 Lead EKG Normal [facility] Acetone Serumon 05-02-2024 ACETONE SERUM LARGE Abnormal NEG [facility] Comment on above: Performed By: #### L 501.6900 ####[facility] [address] [place], [address] Alcohol, Blood (Medical)-Ser umon 05-02-2024 SERUM ETOH < 3.0 Normal [facility] Comment on above: Result Comment: The serum:whole blood ethanol ratio is approximately 1.14and varies slightly with hematocrit.Medical Alcohol reference interval and critical value innon-tolerant individuals; 50 - 100 Impairment 100 Intoxication 100 - 250 Severe Poisoning 250 - 400 Deep/possible fatal coma Performed By: #### L 501.9100 ####[facility] [address] [place], [address] Basic Metabolic Profile (BMP )on 05-02-2024 BUN Normal 7-18 [facility] Comment on above: Order Comment: Call MD with results STAT Result Comment: YANICK LAUGHLIN TO CANCEL BY JUNE CENTER [employer]IER Performed By: #### L 505.5000, L500.2500, L501.9985 ####[facility] [address] [place], [address] BUN/CRE Normal 10-20 [facility] Comment on above: Order Comment: Call with results STAT Result Comment: YANICK LAUGHLIN TO CANCEL BY J[employer]E CENTER [employer]IER Performed By: #### L 505.5000, L500.2500, L501.9985 ####[facility] [address] [place], [address] CA,Total Normal 8.5-10.1 [facility] Comment on above: Order Comment: Call with results STAT Result Comment: YANICK LAUGHLIN TO CANCEL BY J[employer]E CENTER [employer] Performed By: #### L 505.5000, L500.2500, L501.9985 ####[facility] [address] [place], [address] CL Normal 98-107 [facility] Comment on above: Order Comment: Call with results STAT Result Comment: YANICK LAUGHLIN TO CANCEL BY J[employer]E CENTER [employer]IER Performed By: #### L 505.5000, L500.2500, L501.9985 ####[facility] [address] [facility] [address] CO2 Normal 21.0-32.0 [facility] Comment on above: Order Comment: Call with results STAT Result Comment: [employer]SE, [place] TO CANCEL BY J[employer]E CENTER [employer]IER Performed By: #### L 505.5000, L500.2500, L501.9985 ####[facility] [address] [place], [address] CREAT,SERUM Normal 0.55-1.02 [facility] Comment on above: Order Comment: Call with results STAT Result Comment: DUPL VIRALTE, [place] TO CANCEL BY JUNE CENTER [employer] CASHIER Performed By: #### L 505.5000, L500.2500, L501.9985 ####[facility] [address] [place], [address] EST GFR Normal >60 [facility] Comment on above: Order Comment: Call with results STAT Result Comment: [employer], [place] TO CANCEL BY J[employer] CENTER [employer]IER Performed By: #### L 505.5000, L500.2500, L501.9985 ####[facility] [address] [place], [address] EST GFR - AA Normal >60 [facility] Comment on above: Order Comment: Call with results STAT Result Comment: [employer] [place] [place] TO CANCEL BY J[employer]E CENTER [employer]IER Performed By: #### L 505.5000, L500.2500, L501.9985 ####[facility] [address] [place], [address] GAP Normal 5-15 [facility] Comment on above: Order Comment: Call with results STAT Result Comment: IFTIKHARL LACY, [place] TO CANCEL BY J[employer]ENTER [employer] Performed By: #### L 505.5000, L500.2500, L501.9985 ####[facility] [address] [place], [address] GLU Normal 74-106 [facility] Comment on above: Order Comment: Call with results STAT Result Comment: IFTIKHARL LACY, [place] TO CANCEL BY J[employer]E CENTER [employer] C[employer]IER Performed By: #### L 505.5000, L500.2500, L501.9985 ####[facility] [address] [place], [address] Potassium Normal 3.5-5.1 [facility] Comment on above: Order Comment: Call MD with results STAT Result Comment: ARPIT STRATTONTE, [place] TO CANCEL BY JUNE CENTER [employer]IS[employer] CASHIER Performed By: #### L 505.5000, L500.2500, L501.9985 ####[facility] [address] [place], [address] Basic Metabolic Profile (BMP) Normal 136-145 [facility] Comment on above: Order Comment: Call MD with results STAT Result Comment: DUPL ICATE, [place] TO CANCEL BY JUNE CENTER AISLE CASHIER Performed By: #### L 505.5000, L500.2500, L501.9985 ####[facility] [address] [place], [address] BUN Normal 7-18 [facility] Comment on above: Result Comment: Canc elled via OM: Duplicate Order Performed By: #### L 500.2500 ####[facility] [address] [place], [address] BUN/CRE Normal 10-20 [facility] Comment on above: Result Comment: Canc elled via OM: Duplicate Order Performed By: #### L 500.2500 ####[facility] [address] [place], [address] CA,Total Normal 8.5-10.1 [facility] Comment on above: Result Comment: Canc elled via OM: Duplicate Order Performed By: #### L 500.2500 ####[facility] [address] [place], [address] CL Normal 98-107 [facility] Comment on above: Result Comment: Canc elled via OM: Duplicate Order Performed By: #### L 500.2500 ####[facility] [address] [place], [address] CO2 Normal 21.0-32.0 [facility] Comment on above: Result Comment: Canc elled via OM: Duplicate Order Performed By: #### L 500.2500 ####[facility] [address] [place], [address] CREAT,SERUM Normal 0.55-1.02 [facility] Comment on above: Result Comment: Canc elled via OM: Duplicate Order Performed By: #### L 500.2500 ####[facility] [address] [place], [address] EST GFR Normal >60 [facility] Comment on above: Result Comment: Canc elled via OM: Duplicate Order Performed By: #### L 500.2500 ####[facility] [address] [place], [address] EST GFR - AA Normal >60 [facility] Comment on above: Result Comment: Canc elled via OM: Duplicate Order Performed By: #### L 500.2500 ####[facility] [address] [place], [address] GAP Normal 5-15 [facility] Comment on above: Result Comment: Canc elled via OM: Duplicate Order Performed By: #### L 500.2500 ####[facility] [address] [place], [address] GLU Normal 74-106 [facility] Comment on above: Result Comment: Canc elled via OM: Duplicate Order Performed By: #### L 500.2500 ####[facility] [address] [place], [address] Potassium Normal 3.5-5.1 [facility] Comment on above: Result Comment: Canc elled via OM: Duplicate Order Performed By: #### L 500.2500 ####[facility] [address] [place], [address] Basic Metabolic Profile (BMP) Normal 136-145 [facility] Comment on above: Result Comment: Canc elled via OM: Duplicate Order Performed By: #### L 500.2500 ####[facility] [address] [place], [address] Bedside Glucoseon 05-02-2024 FINGERSTICK GLU 392 mg/dL High 74-106 [facility] Comment on above: Result Comment: MARIA D SERRANO OF PATIENT CARE PER NURSING PROTOCOL Performed By: #### L 501.080 ####[facility] [address] [place], [address] Blood Gases by CPSon 024 BE Normal -2 to +2 [facility] Comment on above: Result Comment: resu lts in already Performed By: #### L 9000.0800 ####[facility] [address] [place], [address] HCO3 Normal 22-26 [facility] Comment on above: Result Comment: resu lts in already Performed By: #### L 9000.0800 ####[facility] [address] [place], [address] pCO2 Normal 35-45 [facility] Comment on above: Result Comment: resu lts in already Performed By: #### L 9000.0800 ####[facility] [address] [place], [address] pH Normal 7.35-7.45 [facility] Comment on above: Result Comment: resu lts in already Performed By: #### L 9000.0800 ####[facility] [address] [place], [address] PO2 Normal 75-100 [facility] Comment on above: Result Comment: resu lts in already Performed By: #### L 9000.0800 ####[facility] [address] [place], [address] SO2 Normal 95-99 [facility] Comment on above: Result Comment: resu lts in already Performed By: #### L 9000.0800 ####[facility] [address] [place], [address] TOTAL CO2 Normal [facility] Comment on above: Result Comment: resu lts in already Performed By: #### L 9000.0800 ####[facility] [address] [place], [address] CBC W/Diff, Automatedon 10-2 Absolute Lymph 1.55 X10 3/uL Normal 0.83-4.51 [facility] Comment on above: Performed By: #### L 501.4020, L500.4050, L501.2450, L300.8000, L100.0100 ####[facility] [address] [place], [address] Absolute Neut 6.1 X10 3/uL Normal 2.0-7.7 [facility] Comment on above: Performed By: #### L 501.4020, L500.4050, L501.2450, L300.8000, L100.0100 ####[facility] [address] [place], [address] Basophils/100 WBC (Bld) 0.5 % Normal 0-1 [facility] Comment on above: Performed By: #### L 501.4020, L500.4050, L501.2450, L300.8000, L100.0100 ####[facility] [address] [place], [address] Eosinophils/100 WBC (Bld) 0.5 % Normal 0-5 [facility] Comment on above: Performed By: #### L 501.4020, L500.4050, L501.2450, L300.8000, L100.0100 ####[facility] [address] [place], [address] Erythrocyte distribution width (RBC) [Ratio] 12.8 % Normal 11.6-14.6 [facility] Comment on above: Performed By: #### L 501.4020, L500.4050, L501.2450, L300.8000, L100.0100 ####[facility] [address] [place], [address] Hematocrit (Bld) [Volume fraction] 38.0 % Normal 37-47 [facility] Comment on above: Performed By: #### L 501.4020, L500.4050, L501.2450, L300.8000, L100.0100 ####[facility] [address] [place], [address] Hemoglobin (Bld) [Mass/Vol] 12.4 g/dL Normal 12.0-15.0 [facility] Comment on above: Performed By: #### L 501.4020, L500.4050, L501.2450, L300.8000, L100.0100 ####[facility] [address] [place], [address] IG% 0.500 Normal 0.0-0.9 [facility] Comment on above: Result Comment: IG% - Immature Granulocytes (promyelocytes, myelocytes andmetamyelocytes) > 1% indicates that a LEFT SHIFT is Present. Performed By: #### L 501.4020, L500.4050, L501.2450, L300.8000, L100.0100 ####[facility] [address] [place], [address] Lymphocytes/100 WBC (Bld) 18.9 % Low 19-41 [facility] Comment on above: Performed By: #### L 501.4020, L500.4050, L501.2450, L300.8000, L100.0100 ####[facility] [address] [place], [address] MCH (RBC) [Entitic mass] 29.6 pg Normal 27.0-32.0 [facility] Comment on above: Performed By: #### L 501.4020, L500.4050, L501.2450, L300.8000, L100.0100 ####[facility] [address] [place], [address] MCHC (RBC) [Mass/Vol] 32.6 g/dL Normal 32-36 [facility] Comment on above: Performed By: #### L 501.4020, L500.4050, L501.2450, L300.8000, L100.0100 ####[facility] [address] [place], [address] MCV (RBC) [Entitic vol] 90.7 fL Normal 81-99 [facility] Comment on above: Performed By: #### L 501.4020, L500.4050, L501.2450, L300.8000, L100.0100 ####[facility] [address] [place], [address] Monocytes/100 WBC (Bld) 5.5 % Normal 0-10 [facility] Comment on above: Performed By: #### L 501.4020, L500.4050, L501.2450, L300.8000, L100.0100 ####[facility] [address] [place], [address] Neutrophils/100 WBC (Bld) 74.1 % High 47-70 [facility] Comment on above: Performed By: #### L 501.4020, L500.4050, L501.2450, L300.8000, L100.0100 ####[facility] [address] [place], [address] Nucleated RBC (Bld) [#/Vol] 0 10*3/uL Normal 0-5 [facility] Comment on above: Performed By: #### L 501.4020, L500.4050, L501.2450, L300.8000, L100.0100 ####[facility] [address] [place], [address] Platelet mean volume (Bld) [Entitic vol] 11.7 fL Normal 6.2-12.0 [facility] Comment on above: Performed By: #### L 501.4020, L500.4050, L501.2450, L300.8000, L100.0100 ####[facility] [address] [place], [address] Platelets (Bld) [#/Vol] 288 10*3/uL Normal 150-450 [facility] Comment on above: Performed By: #### L 501.4020, L500.4050, L501.2450, L300.8000, L100.0100 ####[facility] [address] [place], [address] RBC (Bld) [#/Vol] 4.19 10*6/uL Low 4.2-5.4 [facility] Comment on above: Performed By: #### L 501.4020, L500.4050, L501.2450, L300.8000, L100.0100 ####[facility] [address] [place], [address] RDW SD 42.3 fl Normal 35.1-43.9 [facility] Comment on above: Performed By: #### L 501.4020, L500.4050, L501.2450, L300.8000, L100.0100 ####[facility] [address] [place], [address] WBC (Bld) [#/Vol] 8.2 10*3/uL Normal 4.4-11.0 [facility] Comment on above: Performed By: #### L 501.4020, L500.4050, L501.2450, L300.8000, L100.0100 ####[facility] [address] [place], [address] Chest PA and Lateralon 05-02 Chest PA and Lateral Normal [facility] Comprehensive Metabolic Prof ilon 05-02-2024 Albumin [Mass/Vol] 4.3 g/dL Normal 3.2-5.0 [facility] Comment on above: Order Comment: 'TROP ' Serial specimen #1, #2 or #3: 1 Performed By: #### L 501.4020, L500.4050, L501.2450, L300.8000, L100.0100 ####[facility] [address] [place], [address] Albumin/Globulin [Mass ratio] 1.1 {ratio} Normal 0.9-2.4 [facility] Comment on above: Order Comment: 'TROP ' Serial specimen #1, #2 or #3: 1 Performed By: #### L 501.4020, L500.4050, L501.2450, L300.8000, L100.0100 ####[facility] [address] [place], [address] ALK P 112 U/L Normal 45-117 [facility] Comment on above: Order Comment: 'TROP ' Serial specimen #1, #2 or #3: 1 Performed By: #### L 501.4020, L500.4050, L501.2450, L300.8000, L100.0100 ####[facility] [address] [place], [address] ALT [Catalytic activity/Vol] 15 U/L Normal 13-56 [facility] Comment on above: Order Comment: 'TROP ' Serial specimen #1, #2 or #3: 1 Performed By: #### L 501.4020, L500.4050, L501.2450, L300.8000, L100.0100 ####[facility] [address] [place], [address] AST [Catalytic activity/Vol] 7 U/L Low 15-37 [facility] Comment on above: Order Comment: 'TROP ' Serial specimen #1, #2 or #3: 1 Performed By: #### L 501.4020, L500.4050, L501.2450, L300.8000, L100.0100 ####[facility] [address] [place], [address] Bilirubin [Mass/Vol] 0.50 mg/dL Normal 0.20-1.00 [facility] Comment on above: Order Comment: 'TROP ' Serial specimen #1, #2 or #3: 1 Result Comment: For patients on eltrombopag therapy, use of Dimension [place] TBIL is not recommended. Performed By: #### L 501.4020, L500.4050, L501.2450, L300.8000, L100.0100 ####[facility] [address] [place], [address] BUN/CRE 16.5 RATIO Normal 10-20 [facility] Comment on above: Order Comment: 'TROP ' Serial specimen #1, #2 or #3: 1 Performed By: #### L 501.4020, L500.4050, L501.2450, L300.8000, L100.0100 ####[facility] [address] [place], [address] CA,Total 10.1 mg/dL Normal 8.5-10.1 [facility] Comment on above: Order Comment: 'TROP ' Serial specimen #1, #2 or #3: 1 Performed By: #### L 501.4020, L500.4050, L501.2450, L300.8000, L100.0100 ####[facility] [address] [place], [address] Chloride [Moles/Vol] 101 mmol/L Normal 98-107 [facility] Comment on above: Order Comment: 'TROP ' Serial specimen #1, #2 or #3: 1 Performed By: #### L 501.4020, L500.4050, L501.2450, L300.8000, L100.0100 ####[facility] [address] [place], [address] CO2 [Moles/Vol] 10.0 mmol/L Low 21.0-32.0 [facility] Comment on above: Order Comment: 'TROP ' Serial specimen #1, #2 or #3: 1 Performed By: #### L 501.4020, L500.4050, L501.2450, L300.8000, L100.0100 ####[facility] [address] [place], [address] Creatinine [Mass/Vol] 1.33 mg/dL High 0.55-1.02 [facility] Comment on above: Order Comment: 'TROP ' Serial specimen #1, #2 or #3: 1 Result Comment: The validity of the calculated GFR GFRAA in patients over70 years has not been determined. Clinical correlation isessential. Performed By: #### L 501.4020, L500.4050, L501.2450, L300.8000, L100.0100 ####[facility] [address] [place], [address] ECRCL 36.00 ml/min Normal [facility] Comment on above: Order Comment: 'TROP ' Serial specimen #1, #2 or #3: 1 Performed By: #### L 501.4020, L500.4050, L501.2450, L300.8000, L100.0100 ####[facility] [address] [place], [address] EST GFR - AA 52 mL/min Low >60 [facility] Comment on above: Order Comment: 'TROP ' Serial specimen #1, #2 or #3: 1 Result Comment: Afri can Cymraes GFR Calc Performed By: #### L 501.4020, L500.4050, L501.2450, L300.8000, L100.0100 ####[facility] [address] [place], [address] GAP 21 High 5-15 [facility] Comment on above: Order Comment: 'TROP ' Serial specimen #1, #2 or #3: 1 Performed By: #### L 501.4020, L500.4050, L501.2450, L300.8000, L100.0100 ####[facility] [address] [place], [address] GFR/1.73 sq M.predicted among non-blacks MDRD (S/P/Bld) [Vol rate/Area] 43 mL/min/{1.73_m2} Low >60 [facility] Comment on above: Order Comment: 'TROP ' Serial specimen #1, #2 or #3: 1 Result Comment: Non- GFR Calc Performed By: #### L 501.4020, L500.4050, L501.2450, L300.8000, L100.0100 ####[facility] [address] [place], [address] Globulin (S) [Mass/Vol] 4.0 g/dL Normal 2.2-4.2 [facility] Comment on above: Order Comment: 'TROP ' Serial specimen #1, #2 or #3: 1 Performed By: #### L 501.4020, L500.4050, L501.2450, L300.8000, L100.0100 ####[facility] [address] [place], [address] Glucose [Mass/Vol] 437 mg/dL High 74-106 [facility] Comment on above: Order Comment: 'TROP ' Serial specimen #1, #2 or #3: 1 Result Comment: Gluc ose result greater than or equal to 200 mg/dLsuggests DIABETES MELLITUS per A.D.A. criteria. Performed By: #### L 501.4020, L500.4050, L501.2450, L300.8000, L100.0100 ####[facility] [address] [place], [address] Potassium [Moles/Vol] 3.8 mmol/L Normal 3.5-5.1 [facility] Comment on above: Order Comment: 'TROP ' Serial specimen #1, #2 or #3: 1 Performed By: #### L 501.4020, L500.4050, L501.2450, L300.8000, L100.0100 ####[facility] [address] [place], [address] Sodium [Moles/Vol] 132 mmol/L Low 136-145 [facility] Comment on above: Order Comment: 'TROP ' Serial specimen #1, #2 or #3: 1 Performed By: #### L 501.4020, L500.4050, L501.2450, L300.8000, L100.0100 ####[facility] [address] [place], [address] T PROT 8.3 g/dL High 6.4-8.2 [facility] Comment on above: Order Comment: 'TROP ' Serial specimen #1, #2 or #3: 1 Performed By: #### L 501.4020, L500.4050, L501.2450, L300.8000, L100.0100 ####[facility] [address] [place], [address] Urea nitrogen [Mass/Vol] 22 mg/dL High 7-18 [facility] Comment on above: Order Comment: 'TROP ' Serial specimen #1, #2 or #3: 1 Performed By: #### L 501.4020, L500.4050, L501.2450, L300.8000, L100.0100 ####[facility] [address] [place], [address] D-Dimer Quantitative (DVT/PE )on 05-02-2024 D-DIMER QUANT 0.37 FEU/ug/m Normal 0.27-0.49 [facility] Comment on above: Result Comment: NORM AL D-Dimer level (<0.50) indicates no DVT or PE. Performed By: #### L 501.4020, L500.4050, L501.2450, L300.8000, L100.0100 ####[facility] [address] [place], [address] Emergency Department Summary on 05-02-2024 Emergency Department Summary Normal [facility] H AND P Exam - Hospitaliston 05-02-2024 H&P Exam - Hospitalist Normal [facility] L501.4020on 05-02-2024 TROPONIN-I HS 5 pg/mL Normal 3.0-54.0 [facility] Comment on above: Order Comment: 'TROP ' Serial specimen #1, #2 or #3: 1 Result Comment: Plea se Note: New Test Units and Gender Specific Reference Ranges. For more information see Policy Stat Procedure [place] High Sensitivity Troponin (TNIH) and attachments. Performed By: #### L 501.4020, L500.4050, L501.2450, L300.8000, L100.0100 ####[facility] [address] [place], [address] Lactic Acidon 05-02-2024 Lactate [Moles/Vol] 0.9 mmol/L Normal 0.4-1.9 [facility] Comment on above: Order Comment: Y Performed By: #### L 503.6005 ####[facility] [address] [place], [address] Lipaseon 05-02-2024 Lipase [Catalytic activity/Vol] 41 U/L Normal 13-75 [facility] Comment on above: Order Comment: 'TROP ' Serial specimen #1, #2 or #3: 1 Result Comment: Plea se note:LIPASE revised reference range effective 22.New Lipase methodology. Expected to produce lower valuesthan the previous assay method.NEW Reference Range: 13 - 75 U/L Performed By: #### L 501.4020, L500.4050, L501.2450, L300.8000, L100.0100 ####[facility] [address] [place], [address] Magnesiumon 05-02-2024 Magnesium [Mass/Vol] 2.2 mg/dL Normal 1.6-2.6 [facility] Comment on above: Performed By: #### L 501.5200 ####[facility] [address] [place], [address] Osmolality, Serumon 05-02-20 24 OSMOLALITY,SER 334 mOsm/KG High 280-301 [facility] Comment on above: Order Comment: Comme nts: Add to ER Lab draw Performed By: #### L 501.7300 ####[facility] [address] [place], [address] Urinalysis, Completeon 05-02 BACTERIA 1+ /hpf Normal None Seen [facility] Comment on above: Order Comment: CLEAN CATCH Performed By: #### L 400.0001 ####[facility] [address] [place], [address] CAST,FINE GRAN 0-5 SEEN Normal 0-5 [facility] Comment on above: Order Comment: CLEAN CATCH Performed By: #### L 400.0001 ####[facility] [address] [place], [address] CAST,HYALINE 0-5 SEEN Normal 0-5 [facility] Comment on above: Order Comment: CLEAN CATCH Performed By: #### L 400.0001 ####[facility] [address] [place], [address] EPI,SQUAMOUS 5-10 SEEN Normal 5-10 [facility] Comment on above: Order Comment: CLEAN CATCH Performed By: #### L 400.0001 ####[facility] [address] [place], [address] WBC 25-50 SEEN Normal 0-5 [facility] Comment on above: Order Comment: CLEAN CATCH Performed By: #### L 400.0001 ####[facility] [address] [place], [address] KETONE UR 150 mg/dl Abnormal Negative [facility] Comment on above: Order Comment: CLEAN CATCH Result Comment: CRIT ICAL VALUE *HCRITICAL VALUE CALLED TO APOLONIA [id number] Bruce Alexandra.RESULTS READ BACK BY SAME. Performed By: #### L 400.0001 ####[facility] [address] [place], [address] BILIRUBIN URINE Negative Normal Negative [facility] Comment on above: Order Comment: CLEAN CATCH Performed By: #### L 400.0001 ####[facility] [address] [place], [address] Clarity (U) Clear Normal Clear [facility] Comment on above: Order Comment: CLEAN CATCH Performed By: #### L 400.0001 ####[facility] [address] [place], [address] Color (U) Straw Normal Yellow [facility] Comment on above: Order Comment: CLEAN CATCH Performed By: #### L 400.0001 ####[facility] [address] [place], [address] GLUCOSE, UR 1000 mg/dl Abnormal Normal [facility] Comment on above: Order Comment: CLEAN CATCH Performed By: #### L 400.0001 ####[facility] [address] [place], [address] LEUK ESTERASE 100 /ul Abnormal Negative [facility] Comment on above: Order Comment: CLEAN CATCH Performed By: #### L 400.0001 ####[facility] [address] [place], [address] Nitrite Ql (U) Negative Normal Negative [facility] Comment on above: Order Comment: CLEAN CATCH Performed By: #### L 400.0001 ####[facility] [address] [place], [address] OCCULT BLOOD-UR 10 /ul Abnormal Negative [facility] Comment on above: Order Comment: CLEAN CATCH Performed By: #### L 400.0001 ####[facility] [address] [place], [address] pH UR 5.0 Normal 5.0 - 8.0 [facility] Comment on above: Order Comment: CLEAN CATCH Performed By: #### L 400.0001 ####[facility] [address] [place], [address] PROT DIPSTX 100 mg/dl Abnormal Negative [facility] Comment on above: Order Comment: CLEAN CATCH Performed By: #### L 400.0001 ####[facility] [address] [place] [id number] SP.GR. DIPSTX 1.025 Normal 1.002-1.030 [facility] Comment on above: Order Comment: CLEAN CATCH Performed By: #### L 400.0001 ####[facility] [address] [facility] [address] UROBILI Normal Normal Normal [facility] Comment on above: Order Comment: CLEAN CATCH Performed By: #### L 400.0001 ####[facility] [address] [place], [address] Mucus Ql (Urine sed) 0 SEEN Normal [facility] Comment on above: Order Comment: CLEAN CATCH Performed By: #### L 400.0001 ####[facility] [address] [facility] [address] RBC 0 SEEN Normal 0-5 [facility] Comment on above: Order Comment: CLEAN CATCH Performed By: #### L 400.0001 ####[facility] [address] [place], [address] Urine Drug Screen (VISTA)on 05-02-2024 DRUG CONFIRM Normal [facility] Comment on above: Result Comment: NOT ENOUGH [...] USE TESTMNEMONIC: UTCA Performed By: #### L 505.5000, L500.2500, L501.9985 ####[facility] [address] [facility] [address] AMPHETAMINES Normal <1000 ng/mL [facility] Comment on above: Result Comment: NOT ENOUGH URINE Performed By: #### L 505.5000, L500.2500, L501.9985 ####[facility] [address] [facility] [address] BARBITIURATES Normal < 200 ng/mL [facility] Comment on above: Result Comment: NOT ENOUGH URINE Performed By: #### L 505.5000, L500.2500, L501.9985 ####[facility] [address] [facility] [address] BENZODIAZIPINE Normal < 200 ng/mL [facility] Comment on above: Result Comment: NOT ENOUGH URINE Performed By: #### L 505.5000, L500.2500, L501.9985 ####[facility] [address] [facility] [address] COCAINE Normal < 300 ng/mL [facility] Comment on above: Result Comment: NOT ENOUGH URINE Performed By: #### L 505.5000, L500.2500, L501.9985 ####[facility] [address] [place], [address] ECSTACY Normal < 500 ng/mL [facility] Comment on above: Result Comment: NOT ENOUGH URINE Performed By: #### L 505.5000, L500.2500, L501.9985 ####[facility] [address] [place], [address] METHADONE Normal < 300 ng/mL [facility] Comment on above: Result Comment: NOT ENOUGH URINE Performed By: #### L 505.5000, L500.2500, L501.9985 ####[facility] [address] [place], [address] OPIATES Normal < 300 ng/mL [facility] Comment on above: Result Comment: NOT ENOUGH URINE Performed By: #### L 505.5000, L500.2500, L501.9985 ####[facility] [address] [place], [address] PCP Normal < 25 ng/mL [facility] Comment on above: Result Comment: NOT ENOUGH URINE Performed By: #### L 505.5000, L500.2500, L501.9985 ####[facility] [address] [place], [address] THC Normal < 50 ng/mL [facility] Comment on above: Result Comment: NOT ENOUGH URINE Performed By: #### L 505.5000, L500.2500, L501.9985 ####[facility] [address] [place], [address] VISTA UDS PH Normal [facility] Comment on above: Result Comment: NOT ENOUGH URINE Performed By: #### L 505.5000, L500.2500, L501.9985 ####[facility] [address] [place], [address] Bedside Glucoseon 03-09-2024 FINGERSTICK GLU 379 mg/dL High 74-106 [facility] Comment on above: Result Comment: MARIA D MAGGIE OF PATIENT CARE PER NURSING PROTOCOL Performed By: #### L 501.080 ####[facility] [address] [place], [address] FINGERSTICK GLU 40 mg/dL Invalid Interpretation Code 74-106 [facility] Comment on above: Result Comment: MARIA D GEMENT OF PATIENT CARE PER NURSING PROTOCOL Performed By: #### L 501.080 ####[facility] [address] [place], [address] FINGERSTICK GLU 35 mg/dL Invalid Interpretation Code 74-106 [facility] Comment on above: Result Comment: Repe at TestMANAGEMENT OF PATIENT CARE PER NURSING PROTOCOL Performed By: #### L 501.080 ####[facility] [address] [place], [address] Basic Metabolic Profile (BMP )on 03-05-2024 BUN/CRE 4.9 RATIO Low 10-20 [facility] Comment on above: Performed By: #### L 500.2500, L501.2300 ####[facility] [address] [place], [address] CA,Total 8.9 mg/dL Normal 8.5-10.1 [facility] Comment on above: Performed By: #### L 500.2500, L501.2300 ####[facility] [address] [place], [address] Chloride [Moles/Vol] 106 mmol/L Normal 98-107 [facility] Comment on above: Performed By: #### L 500.2500, L501.2300 ####[facility] [address] [place], [address] CO2 [Moles/Vol] 31.0 mmol/L Normal 21.0-32.0 [facility] Comment on above: Performed By: #### L 500.2500, L501.2300 ####[facility] [address] [place], [address] Creatinine [Mass/Vol] 0.61 mg/dL Normal 0.55-1.02 [facility] Comment on above: Result Comment: The validity of the calculated GFR GFRAA in patients over70 years has not been determined. Clinical correlation isessential. Performed By: #### L 500.2500, L501.2300 ####[facility] [address] [place], [address] ECRCL 80.12 ml/min Normal [facility] Comment on above: Performed By: #### L 500.2500, L501.2300 ####[facility] [address] [place], [address] EST GFR - AA 127 mL/min Normal >60 [facility] Comment on above: Result Comment: Afri can Cymraes GFR Calc Performed By: #### L 500.2500, L501.2300 ####[facility] [address] [place], [address] GAP 4 Low 5-15 [facility] Comment on above: Performed By: #### L 500.2500, L501.2300 ####[facility] [address] [place], [address] GFR/1.73 sq M.predicted among non-blacks MDRD (S/P/Bld) [Vol rate/Area] 105 mL/min/{1.73_m2} Normal >60 [facility] Comment on above: Result Comment: Non- GFR Calc Performed By: #### L 500.2500, L501.2300 ####[facility] [address] [place], [address] Glucose [Mass/Vol] 147 mg/dL High 74-106 [facility] Comment on above: Result Comment: Fast ing Glucose result greater than or equal to 126 mg/dLsuggests DIABETES MELLITUS per A.D.A. criteria. Performed By: #### L 500.2500, L501.2300 ####[facility] [address] [place], [address] Potassium [Moles/Vol] 2.7 mmol/L Invalid Interpretation Code 3.5-5.1 [facility] Comment on above: Result Comment: Crit ical Result(s) Called at: 07:24:22 03/05/2024 by: Marifer Arellano RN ([facility]). Results read back by same. Performed By: #### L 500.2500, L501.2300 ####[facility] [address] [place], [address] Sodium [Moles/Vol] 141 mmol/L Normal 136-145 [facility] Comment on above: Performed By: #### L 500.2500, L501.2300 ####[facility] [address] [place], [address] Urea nitrogen [Mass/Vol] 3 mg/dL Low 7-18 [facility] Comment on above: Performed By: #### L 500.2500, L501.2300 ####[facility] [address] [place], [address] Bedside Glucoseon 03-05-2024 FINGERSTICK GLU 220 mg/dL High 74-106 [facility] Comment on above: Result Comment: MARIA D GEMENT OF PATIENT CARE PER NURSING PROTOCOL Performed By: #### L 501.080 ####[facility] [address] [place], [address] FINGERSTICK GLU 132 mg/dL High 74-106 [facility] Comment on above: Result Comment: MARIA D GEMENT OF PATIENT CARE PER NURSING PROTOCOL Performed By: #### L 501.080 ####[facility] [address] [place], [address] FINGERSTICK GLU 113 mg/dL High 74-106 [facility] Comment on above: Result Comment: MARIA D GEMENT OF PATIENT CARE PER NURSING PROTOCOL Performed By: #### L 501.080 ####[facility] [address] [place], [address] Discharge Instructionon 02-06 Discharge Instruction Normal [facility] Phosphoruson 03-05-2024 Phosphate [Mass/Vol] 2.8 mg/dL Normal 2.5-4.9 [facility] Comment on above: Performed By: #### L 500.2500, L501.2300 ####[facility] [address] [place], [address] Basic Metabolic Profile (BMP )on 03-04-2024 BUN/CRE 5.9 RATIO Low 10-20 [facility] Comment on above: Performed By: #### L 500.2500 ####[facility] [address] [place], [address] CA,Total 8.9 mg/dL Normal 8.5-10.1 [facility] Comment on above: Performed By: #### L 500.2500 ####[facility] [address] [place], [address] Chloride [Moles/Vol] 110 mmol/L High 98-107 [facility] Comment on above: Performed By: #### L 500.2500 ####[facility] [address] [place], [address] CO2 [Moles/Vol] 28.0 mmol/L Normal 21.0-32.0 [facility] Comment on above: Performed By: #### L 500.2500 ####[facility] [address] [place], [address] Creatinine [Mass/Vol] 0.68 mg/dL Normal 0.55-1.02 [facility] Comment on above: Result Comment: The validity of the calculated GFR GFRAA in patients over70 years has not been determined. Clinical correlation isessential. Performed By: #### L 500.2500 ####[facility] [address] [place], [address] ECRCL 71.87 ml/min Normal [facility] Comment on above: Performed By: #### L 500.2500 ####[facility] [address] [place], [address] EST GFR - AA 113 mL/min Normal >60 [facility] Comment on above: Result Comment: Afri can Cymraes GFR Calc Performed By: #### L 500.2500 ####[facility] [address] [place], [address] GAP 3 Low 5-15 [facility] Comment on above: Performed By: #### L 500.2500 ####[facility] [address] [place], [address] GFR/1.73 sq M.predicted among non-blacks MDRD (S/P/Bld) [Vol rate/Area] 93 mL/min/{1.73_m2} Normal >60 [facility] Comment on above: Result Comment: Non- GFR Calc Performed By: #### L 500.2500 ####[facility] [address] [place], [address] Glucose [Mass/Vol] 163 mg/dL High 74-106 [facility] Comment on above: Result Comment: Fast ing Glucose result greater than or equal to 126 mg/dLsuggests DIABETES MELLITUS per A.D.A. criteria. Performed By: #### L 500.2500 ####[facility] [address] [place], [address] Potassium [Moles/Vol] 3.0 mmol/L Low 3.5-5.1 [facility] Comment on above: Performed By: #### L 500.2500 ####[facility] [address] [place], [address] Sodium [Moles/Vol] 141 mmol/L Normal 136-145 [facility] Comment on above: Performed By: #### L 500.2500 ####[facility] [address] [place], [address] Urea nitrogen [Mass/Vol] 4 mg/dL Low 7-18 [facility] Comment on above: Performed By: #### L 500.2500 ####[facility] [address] [place], [address] BUN/CRE 8.7 RATIO Low 10-20 [facility] Comment on above: Performed By: #### L 500.2500 ####[facility] [address] [place], [address] CA,Total 8.9 mg/dL Normal 8.5-10.1 [facility] Comment on above: Performed By: #### L 500.2500 ####[facility] [address] [place], [address] Chloride [Moles/Vol] 110 mmol/L High 98-107 [facility] Comment on above: Performed By: #### L 500.2500 ####[facility] [address] [place], [address] CO2 [Moles/Vol] 27.0 mmol/L Normal 21.0-32.0 [facility] Comment on above: Performed By: #### L 500.2500 ####[facility] [address] [place], [address] Creatinine [Mass/Vol] 0.57 mg/dL Normal 0.55-1.02 [facility] Comment on above: Result Comment: The validity of the calculated GFR GFRAA in patients over70 years has not been determined. Clinical correlation isessential. Performed By: #### L 500.2500 ####[facility] [address] [place], [address] ECRCL 85.74 ml/min Normal [facility] Comment on above: Performed By: #### L 500.2500 ####[facility] [address] [place], [address] EST GFR - AA 137 mL/min Normal >60 [facility] Comment on above: Result Comment: Afri can Cymraes GFR Calc Performed By: #### L 500.2500 ####[facility] [address] [place], [address] GAP 5 Normal 5-15 [facility] Comment on above: Performed By: #### L 500.2500 ####[facility] [address] [place], [address] GFR/1.73 sq M.predicted among non-blacks MDRD (S/P/Bld) [Vol rate/Area] 114 mL/min/{1.73_m2} Normal >60 [facility] Comment on above: Result Comment: Non- GFR Calc Performed By: #### L 500.2500 ####[facility] [address] [place], [place], [phone] Glucose [Mass/Vol] 118 mg/dL High 74-106 [facility] Comment on above: Result Comment: Fast ing Glucose result from 100 to 125 mg/dLsuggests IMPAIRED HOMEOSTASIS per A.D.A. criteria. Performed By: #### L 500.2500 ####[facility] [address] [place], [address] Potassium [Moles/Vol] 2.5 mmol/L Invalid Interpretation Code 3.5-5.1 [facility] Comment on above: Result Comment: Crit ical Result(s) Called at: 06:44:23 03/04/2024 by:Nina Donohue. Results read back by same. Performed By: #### L 500.2500 ####[facility] [address] [place], [address] Sodium [Moles/Vol] 142 mmol/L Normal 136-145 [facility] Comment on above: Performed By: #### L 500.2500 ####[facility] [address] [place], [address] Urea nitrogen [Mass/Vol] 5 mg/dL Low 7-18 [facility] Comment on above: Performed By: #### L 500.2500 ####[facility] [address] [place], [address] Bedside Glucoseon 03-04-2024 FINGERSTICK GLU 217 mg/dL High 74-106 [facility] Comment on above: Result Comment: MARIA D GEMENT OF PATIENT CARE PER NURSING PROTOCOL Performed By: #### L 501.080 ####[facility] [address] [place], [address] FINGERSTICK GLU 82 mg/dL Normal 74-106 [facility] Comment on above: Result Comment: MARIA D GEMENT OF PATIENT CARE PER NURSING PROTOCOL Performed By: #### L 501.080 ####[facility] [address] [place], [address] FINGERSTICK GLU 181 mg/dL High 74-106 [facility] Comment on above: Result Comment: MARIA D GEMENT OF PATIENT CARE PER NURSING PROTOCOL Performed By: #### L 501.080 ####[facility] [address] [place], [address] FINGERSTICK GLU 112 mg/dL High 74-106 [facility] Comment on above: Result Comment: MARIA D GEMENT OF PATIENT CARE PER NURSING PROTOCOL Performed By: #### L 501.080 ####[facility] [address] [place], [address] FINGERSTICK GLU 107 mg/dL High 74-106 [facility] Comment on above: Result Comment: MARIA D GEMENT OF PATIENT CARE PER NURSING PROTOCOL Performed By: #### L 501.080 ####[facility] [address] [place], [address] FINGERSTICK GLU 50 mg/dL Low 74-106 [facility] Comment on above: Result Comment: MARIA D GEMENT OF PATIENT CARE PER NURSING PROTOCOL Performed By: #### L 501.080 ####[facility] [address] [place], [address] Magnesiumon 03-04-2024 Magnesium [Mass/Vol] 2.0 mg/dL Normal 1.6-2.6 [facility] Comment on above: Performed By: #### L 501.2300, L501.5200 ####[facility] [address] [place], [address] Phosphoruson 03-04-2024 Phosphate [Mass/Vol] 1.2 mg/dL Low 2.5-4.9 [facility] Comment on above: Performed By: #### L 501.2300, L501.5200 ####[facility] [address] [place], [address] Basic Metabolic Profile (BMP )on 03-03-2024 BUN/CRE 12.3 RATIO Normal 10-20 [facility] Comment on above: Performed By: #### L 500.2500, L100.0100 ####[facility] [address] [place], [address] CA,Total 9.6 mg/dL Normal 8.5-10.1 [facility] Comment on above: Performed By: #### L 500.2500, L100.0100 ####[facility] [address] [place], [address] Chloride [Moles/Vol] 115 mmol/L High 98-107 [facility] Comment on above: Performed By: #### L 500.2500, L100.0100 ####[facility] [address] [place], [address] CO2 [Moles/Vol] 21.0 mmol/L Normal 21.0-32.0 [facility] Comment on above: Performed By: #### L 500.2500, L100.0100 ####[facility] [address] [place], [address] Creatinine [Mass/Vol] 0.73 mg/dL Normal 0.55-1.02 [facility] Comment on above: Result Comment: The validity of the calculated GFR GFRAA in patients over70 years has not been determined. Clinical correlation isessential. Performed By: #### L 500.2500, L100.0100 ####[facility] [address] [place], [address] ECRCL 66.95 ml/min Normal [facility] Comment on above: Performed By: #### L 500.2500, L100.0100 ####[facility] [address] [place], [address] EST GFR - AA 103 mL/min Normal >60 [facility] Comment on above: Result Comment: Afri can Cymraes GFR Calc Performed By: #### L 500.2500, L100.0100 ####[facility] [address] [place], [address] GAP 5 Normal 5-15 [facility] Comment on above: Performed By: #### L 500.2500, L100.0100 ####[facility] [address] [place], [address] GFR/1.73 sq M.predicted among non-blacks MDRD (S/P/Bld) [Vol rate/Area] 85 mL/min/{1.73_m2} Normal >60 [facility] Comment on above: Result Comment: Non- GFR Calc Performed By: #### L 500.2500, L100.0100 ####[facility] [address] [place], [address] Glucose [Mass/Vol] 67 mg/dL Low 74-106 [facility] Comment on above: Performed By: #### L 500.2500, L100.0100 ####[facility] [address] [place], [address] Potassium [Moles/Vol] 2.6 mmol/L Invalid Interpretation Code 3.5-5.1 [facility] Comment on above: Result Comment: Crit ical Result(s) Called at: 07:53:32 03/03/2024 by: Marifer Frances RN ([facility]). Results read back by same. Performed By: #### L 500.2500, L100.0100 ####[facility] [address] [place], [address] Sodium [Moles/Vol] 141 mmol/L Normal 136-145 [facility] Comment on above: Performed By: #### L 500.2500, L100.0100 ####[facility] [address] [place], [address] Urea nitrogen [Mass/Vol] 9 mg/dL Normal 7-18 [facility] Comment on above: Performed By: #### L 500.2500, L100.0100 ####[facility] [address] [place], [address] Bedside Glucoseon 03-03-2024 FINGERSTICK GLU 185 mg/dL High 74-106 [facility] Comment on above: Result Comment: MARIA D GEMENT OF PATIENT CARE PER NURSING PROTOCOL Performed By: #### L 501.080 ####[facility] [address] [place], [address] FINGERSTICK GLU 146 mg/dL High 74-106 [facility] Comment on above: Result Comment: MARIA D GEMENT OF PATIENT CARE PER NURSING PROTOCOL Performed By: #### L 501.080 ####[facility] [address] [place], [address] FINGERSTICK GLU 184 mg/dL High -106 [facility] Comment on above: Result Comment: MARIA D GEMENT OF PATIENT CARE PER NURSING PROTOCOL Performed By: #### L 501.080 ####[facility] [address] [place], [address] FINGERSTICK GLU 71 mg/dL Low 74-106 [facility] Comment on above: Result Comment: MARIA D GEMENT OF PATIENT CARE PER NURSING PROTOCOL Performed By: #### L 501.080 ####[facility] [address] [place], [address] FINGERSTICK GLU 137 mg/dL High 74-106 [facility] Comment on above: Result Comment: MARIA D GEMENT OF PATIENT CARE PER NURSING PROTOCOL Performed By: #### L 501.080 ####[facility] [address] [place], [address] FINGERSTICK GLU 94 mg/dL Normal 74-106 [facility] Comment on above: Result Comment: MARIA D GEMENT OF PATIENT CARE PER NURSING PROTOCOL Performed By: #### L 501.080 ####[facility] [address] [place], [address] CBC W/Diff, Automatedon 08- Absolute Lymph 1.54 X10 3/uL Normal 0.83-4.51 [facility] Comment on above: Performed By: #### L 500.2500, L100.0100 ####[facility] [address] [place], [address] Absolute Neut 2.3 X10 3/uL Normal 2.0-7.7 [facility] Comment on above: Performed By: #### L 500.2500, L100.0100 ####[facility] [address] [place], [address] Basophils/100 WBC (Bld) 0.5 % Normal 0-1 [facility] Comment on above: Performed By: #### L 500.2500, L100.0100 ####[facility] [address] [place], [address] Eosinophils/100 WBC (Bld) 2.3 % Normal 0-5 [facility] Comment on above: Performed By: #### L 500.2500, L100.0100 ####[facility] [address] [place], [address] Erythrocyte distribution width (RBC) [Ratio] 13.1 % Normal 11.6-14.6 [facility] Comment on above: Performed By: #### L 500.2500, L100.0100 ####[facility] [address] [place], [address] Hematocrit (Bld) [Volume fraction] 29.6 % Low 37-47 [facility] Comment on above: Performed By: #### L 500.2500, L100.0100 ####[facility] [address] [place], [address] Hemoglobin (Bld) [Mass/Vol] 10.2 g/dL Low 12.0-15.0 [facility] Comment on above: Performed By: #### L 500.2500, L100.0100 ####[facility] [address] [place], [address] IG% 0.700 Normal 0.0-0.9 [facility] Comment on above: Result Comment: IG% - Immature Granulocytes (promyelocytes, myelocytes andmetamyelocytes) > 1% indicates that a LEFT SHIFT is Present. Performed By: #### L 500.2500, L100.0100 ####[facility] [address] [place], [address] Lymphocytes/100 WBC (Bld) 34.9 % Normal 19-41 [facility] Comment on above: Performed By: #### L 500.2500, L100.0100 ####[facility] [address] [place], [address] MCH (RBC) [Entitic mass] 29.4 pg Normal 27.0-32.0 [facility] Comment on above: Performed By: #### L 500.2500, L100.0100 ####[facility] [address] [place], [address] MCHC (RBC) [Mass/Vol] 34.5 g/dL Normal 32-36 [facility] Comment on above: Performed By: #### L 500.2500, L100.0100 ####[facility] [address] [place], [address] MCV (RBC) [Entitic vol] 85.3 fL Normal 81-99 [facility] Comment on above: Performed By: #### L 500.2500, L100.0100 ####[facility] [address] [place], [address] Monocytes/100 WBC (Bld) 10.4 % High 0-10 [facility] Comment on above: Performed By: #### L 500.2500, L100.0100 ####[facility] [address] [place], [address] Neutrophils/100 WBC (Bld) 51.2 % Normal 47-70 [facility] Comment on above: Performed By: #### L 500.2500, L100.0100 ####[facility] [address] [place], [address] Nucleated RBC (Bld) [#/Vol] 0 10*3/uL Normal 0-5 [facility] Comment on above: Performed By: #### L 500.2500, L100.0100 ####[facility] [address] [place], [address] Platelet mean volume (Bld) [Entitic vol] 11.3 fL Normal 6.2-12.0 [facility] Comment on above: Performed By: #### L 500.2500, L100.0100 ####[facility] [address] [place], [address] Platelets (Bld) [#/Vol] 162 10*3/uL Normal 150-450 [facility] Comment on above: Performed By: #### L 500.2500, L100.0100 ####[facility] [address] [place], [address] RBC (Bld) [#/Vol] 3.47 10*6/uL Low 4.2-5.4 [facility] Comment on above: Performed By: #### L 500.2500, L100.0100 ####[facility] [address] [place], [address] RDW SD 40.1 fl Normal 35.1-43.9 [facility] Comment on above: Performed By: #### L 500.2500, L100.0100 ####[facility] [address] [place], [address] WBC (Bld) [#/Vol] 4.4 10*3/uL Normal 4.4-11.0 [facility] Comment on above: Performed By: #### L 500.2500, L100.0100 ####[facility] [address] [place], [address] Basic Metabolic Profile (BMP )on 03-02-2024 BUN/CRE 10.4 RATIO Normal 10-20 [facility] Comment on above: Performed By: #### L 500.2500 ####[facility] [address] [place], [address] CA,Total 9.9 mg/dL Normal 8.5-10.1 [facility] Comment on above: Performed By: #### L 500.2500 ####[facility] [address] [place], [address] Chloride [Moles/Vol] 116 mmol/L High 98-107 [facility] Comment on above: Performed By: #### L 500.2500 ####[facility] [address] [place], [address] CO2 [Moles/Vol] 14.0 mmol/L Low 21.0-32.0 [facility] Comment on above: Performed By: #### L 500.2500 ####[facility] [address] [place], [address] Creatinine [Mass/Vol] 0.96 mg/dL Normal 0.55-1.02 [facility] Comment on above: Result Comment: The validity of the calculated GFR GFRAA in patients over70 years has not been determined. Clinical correlation isessential. Performed By: #### L 500.2500 ####[facility] [address] [place], [address] ECRCL 50.91 ml/min Normal [facility] Comment on above: Performed By: #### L 500.2500 ####[facility] [address] [place], [address] EST GFR - AA 76 mL/min Normal >60 [facility] Comment on above: Result Comment: Afri can Cymraes GFR Calc Performed By: #### L 500.2500 ####[facility] [address] [place], [address] GAP 11 Normal 5-15 [facility] Comment on above: Performed By: #### L 500.2500 ####[facility] [address] [place], [address] GFR/1.73 sq M.predicted among non-blacks MDRD (S/P/Bld) [Vol rate/Area] 63 mL/min/{1.73_m2} Normal >60 [facility] Comment on above: Result Comment: Non- GFR Calc Performed By: #### L 500.2500 ####[facility] [address] [place], [address] Glucose [Mass/Vol] 47 mg/dL Low 74-106 [facility] Comment on above: Result Comment: Gluc ose result less than 50 mg/dL suggests HYPOGLYCEMIA. Performed By: #### L 500.2500 ####[facility] [address] [place], [address] Potassium [Moles/Vol] 3.3 mmol/L Low 3.5-5.1 [facility] Comment on above: Performed By: #### L 500.2500 ####[facility] [address] [place], [address] Sodium [Moles/Vol] 141 mmol/L Normal 136-145 [facility] Comment on above: Performed By: #### L 500.2500 ####[facility] [address] [place], [address] Urea nitrogen [Mass/Vol] 10 mg/dL Normal 7-18 [facility] Comment on above: Performed By: #### L 500.2500 ####[facility] [address] [place], [address] BUN/CRE 10.8 RATIO Normal 10-20 [facility] Comment on above: Performed By: #### L 500.2500 ####[facility] [address] [place], [address] CA,Total 9.2 mg/dL Normal 8.5-10.1 [facility] Comment on above: Performed By: #### L 500.2500 ####[facility] [address] [place], [address] Chloride [Moles/Vol] 113 mmol/L High 98-107 [facility] Comment on above: Performed By: #### L 500.2500 ####[facility] [address] [place], [address] CO2 [Moles/Vol] 10.0 mmol/L Low 21.0-32.0 [facility] Comment on above: Performed By: #### L 500.2500 ####[facility] [address] [place], [address] Creatinine [Mass/Vol] 0.83 mg/dL Normal 0.55-1.02 [facility] Comment on above: Result Comment: The validity of the calculated GFR GFRAA in patients over70 years has not been determined. Clinical correlation isessential. Performed By: #### L 500.2500 ####[facility] [address] [place], [address] ECRCL 58.88 ml/min Normal [facility] Comment on above: Performed By: #### L 500.2500 ####[facility] [address] [place], [address] EST GFR - AA 89 mL/min Normal >60 [facility] Comment on above: Result Comment: Afri can Cymraes GFR Calc Performed By: #### L 500.2500 ####[facility] [address] [place], [address] GAP 17 High 5-15 [facility] Comment on above: Performed By: #### L 500.2500 ####[facility] [address] [place], [address] GFR/1.73 sq M.predicted among non-blacks MDRD (S/P/Bld) [Vol rate/Area] 74 mL/min/{1.73_m2} Normal >60 [facility] Comment on above: Result Comment: Non- GFR Calc Performed By: #### L 500.2500 ####[facility] [address] [place], [address] Glucose [Mass/Vol] 140 mg/dL High 74-106 [facility] Comment on above: Result Comment: Fast ing Glucose result greater than or equal to 126 mg/dLsuggests DIABETES MELLITUS per A.D.A. criteria. Performed By: #### L 500.2500 ####[facility] [address] [place], [address] Potassium [Moles/Vol] 3.3 mmol/L Low 3.5-5.1 [facility] Comment on above: Performed By: #### L 500.2500 ####[facility] [address] [place], [address] Sodium [Moles/Vol] 140 mmol/L Normal 136-145 [facility] Comment on above: Performed By: #### L 500.2500 ####[facility] [address] [place], [address] Urea nitrogen [Mass/Vol] 9 mg/dL Normal 7-18 [facility] Comment on above: Performed By: #### L 500.2500 ####[facility] [address] [place], [address] Bedside Glucoseon 03-02-2024 FINGERSTICK GLU 222 mg/dL High [address] [place] [address] Comment on above: Result Comment: MARIA D GEMENT OF PATIENT CARE PER NURSING PROTOCOL Performed By: #### L 501.080 ####[facility] [address] [place], [address] FINGERSTICK GLU 60 mg/dL Low -106 [facility] Comment on above: Result Comment: MARIA D GEMENT OF PATIENT CARE PER NURSING PROTOCOL Performed By: #### L 501.080 ####[facility] [address] [place], [address] FINGERSTICK GLU 32 mg/dL Invalid Interpretation Code [address] [place] [address] Comment on above: Result Comment: Dr Lois cooney FollowedMANAGEMENT OF PATIENT CARE PER NURSING PROTOCOL Performed By: #### L 501.080 ####[facility] [address] [place], [address] FINGERSTICK GLU 295 mg/dL High [address] [place] [address] Comment on above: Result Comment: MARIA D GEMENT OF PATIENT CARE PER NURSING PROTOCOL Performed By: #### L 501.080 ####[facility] [address] [place], [address] FINGERSTICK GLU 145 mg/dL High 74-106 [facility] Comment on above: Result Comment: MARIA D GEMENT OF PATIENT CARE PER NURSING PROTOCOL Performed By: #### L 501.080 ####[facility] [address] [place], [address] FINGERSTICK GLU 240 mg/dL High 74-106 [facility] Comment on above: Result Comment: MARIA D GEMENT OF PATIENT CARE PER NURSING PROTOCOL Performed By: #### L 501.080 ####[facility] [address] [place], [address] FINGERSTICK GLU 191 mg/dL High 74-106 [facility] Comment on above: Result Comment: MARIA D GEMENT OF PATIENT CARE PER NURSING PROTOCOL Performed By: #### L 501.080 ####[facility] [address] [place], [address] 12 Lead EKGon 03-01-2024 12 Lead EKG Normal [facility] Acetone Serumon 03-01-2024 ACETONE SERUM SMALL Abnormal NEG [facility] Comment on above: Performed By: #### L 501.6900 ####[facility] [address] [place], [address] Basic Metabolic Profile (BMP )on 03-01-2024 BUN/CRE 10.1 RATIO Normal 10-20 [facility] Comment on above: Performed By: #### L 500.2500 ####[facility] [address] [place], [address] CA,Total 9.2 mg/dL Normal 8.5-10.1 [facility] Comment on above: Performed By: #### L 500.2500 ####[facility] [address] [place], [address] Chloride [Moles/Vol] 114 mmol/L High 98-107 [facility] Comment on above: Performed By: #### L 500.2500 ####[facility] [address] [place], [address] CO2 [Moles/Vol] 9.0 mmol/L Invalid Interpretation Code 21.0-32.0 [facility] Comment on above: Result Comment: Crit ical Result(s) Called at: 21:37:02 03/01/2024 by:Sue Lal to Evelio. Results read back by same. Performed By: #### L 500.2500 ####[facility] [address] [place], [address] Creatinine [Mass/Vol] 0.89 mg/dL Normal 0.55-1.02 [facility] Comment on above: Result Comment: The validity of the calculated GFR GFRAA in patients over70 years has not been determined. Clinical correlation isessential. Performed By: #### L 500.2500 ####[facility] [address] [place], [address] ECRCL 54.91 ml/min Normal [facility] Comment on above: Performed By: #### L 500.2500 ####[facility] [address] [place], [address] EST GFR - AA 83 mL/min Normal >60 [facility] Comment on above: Result Comment: Afri can Cymraes GFR Calc Performed By: #### L 500.2500 ####[facility] [address] [place], [address] GAP 15 Normal 5-15 [facility] Comment on above: Performed By: #### L 500.2500 ####[facility] [address] [place], [address] GFR/1.73 sq M.predicted among non-blacks MDRD (S/P/Bld) [Vol rate/Area] 68 mL/min/{1.73_m2} Normal >60 [facility] Comment on above: Result Comment: Non- GFR Calc Performed By: #### L 500.2500 ####[facility] [address] [place], [address] Glucose [Mass/Vol] 175 mg/dL High 74-106 [facility] Comment on above: Result Comment: Fast ing Glucose result greater than or equal to 126 mg/dLsuggests DIABETES MELLITUS per A.D.A. criteria. Performed By: #### L 500.2500 ####[facility] [address] [place], [address] Potassium [Moles/Vol] 3.3 mmol/L Low 3.5-5.1 [facility] Comment on above: Performed By: #### L 500.2500 ####[facility] [address] [place], [address] Sodium [Moles/Vol] 138 mmol/L Normal 136-145 [facility] Comment on above: Performed By: #### L 500.2500 ####[facility] [address] [place], [address] Urea nitrogen [Mass/Vol] 9 mg/dL Normal 7-18 [facility] Comment on above: Performed By: #### L 500.2500 ####[facility] [address] [place], [address] BUN/CRE 10.0 RATIO Normal 10-20 [facility] Comment on above: Performed By: #### L 500.2500 ####[facility] [address] [place], [address] CA,Total 9.0 mg/dL Normal 8.5-10.1 [facility] Comment on above: Performed By: #### L 500.2500 ####[facility] [address] [place], [address] Chloride [Moles/Vol] 110 mmol/L High 98-107 [facility] Comment on above: Performed By: #### L 500.2500 ####[facility] [address] [place], [address] CO2 [Moles/Vol] 10.0 mmol/L Low 21.0-32.0 [facility] Comment on above: Performed By: #### L 500.2500 ####[facility] [address] [place], [address] Creatinine [Mass/Vol] 0.90 mg/dL Normal 0.55-1.02 [facility] Comment on above: Result Comment: The validity of the calculated GFR GFRAA in patients over70 years has not been determined. Clinical correlation isessential. Performed By: #### L 500.2500 ####[facility] [address] [place], [address] ECRCL 54.30 ml/min Normal [facility] Comment on above: Performed By: #### L 500.2500 ####[facility] [address] [place], [address] EST GFR - AA 81 mL/min Normal >60 [facility] Comment on above: Result Comment: Afri can Cymraes GFR Calc Performed By: #### L 500.2500 ####[facility] [address] [place], [address] GAP 17 High 5-15 [facility] Comment on above: Performed By: #### L 500.2500 ####[facility] [address] [place], [address] GFR/1.73 sq M.predicted among non-blacks MDRD (S/P/Bld) [Vol rate/Area] 67 mL/min/{1.73_m2} Normal >60 [facility] Comment on above: Result Comment: Non- GFR Calc Performed By: #### L 500.2500 ####[facility] [address] [place], [address] Glucose [Mass/Vol] 231 mg/dL High 74-106 [facility] Comment on above: Result Comment: Gluc ose result greater than or equal to 200 mg/dLsuggests DIABETES MELLITUS per A.D.A. criteria. Performed By: #### L 500.2500 ####[facility] [address] [place], [address] Potassium [Moles/Vol] 3.6 mmol/L Normal 3.5-5.1 [facility] Comment on above: Performed By: #### L 500.2500 ####[facility] [address] [place], [address] Sodium [Moles/Vol] 137 mmol/L Normal 136-145 [facility] Comment on above: Performed By: #### L 500.2500 ####[facility] [address] [place], [address] Urea nitrogen [Mass/Vol] 9 mg/dL Normal 7-18 [facility] Comment on above: Performed By: #### L 500.2500 ####[facility] [address] [place], [address] BUN/CRE 10.0 RATIO Normal 10-20 [facility] Comment on above: Performed By: #### L 500.2500 ####[facility] [address] [place], [address] CA,Total 8.6 mg/dL Normal 8.5-10.1 [facility] Comment on above: Performed By: #### L 500.2500 ####[facility] [address] [place], [address] Chloride [Moles/Vol] 112 mmol/L High 98-107 [facility] Comment on above: Performed By: #### L 500.2500 ####[facility] [address] [place], [address] CO2 [Moles/Vol] 11.0 mmol/L Low 21.0-32.0 [facility] Comment on above: Performed By: #### L 500.2500 ####[facility] [address] [place], [address] Creatinine [Mass/Vol] 0.90 mg/dL Normal 0.55-1.02 [facility] Comment on above: Result Comment: The validity of the calculated GFR GFRAA in patients over70 years has not been determined. Clinical correlation isessential. Performed By: #### L 500.2500 ####[facility] [address] [place], [address] ECRCL 54.30 ml/min Normal [facility] Comment on above: Performed By: #### L 500.2500 ####[facility] [address] [place], [address] EST GFR - AA 82 mL/min Normal >60 [facility] Comment on above: Result Comment: Afri can Cymraes GFR Calc Performed By: #### L 500.2500 ####[facility] [address] [place], [address] GAP 14 Normal 5-15 [facility] Comment on above: Performed By: #### L 500.2500 ####[facility] [address] [place], [address] GFR/1.73 sq M.predicted among non-blacks MDRD (S/P/Bld) [Vol rate/Area] 67 mL/min/{1.73_m2} Normal >60 [facility] Comment on above: Result Comment: Non- GFR Calc Performed By: #### L 500.2500 ####[facility] [address] [place], [address] Glucose [Mass/Vol] 191 mg/dL High 74-106 [facility] Comment on above: Result Comment: Fast ing Glucose result greater than or equal to 126 mg/dLsuggests DIABETES MELLITUS per A.D.A. criteria. Performed By: #### L 500.2500 ####[facility] [address] [place], [address] Potassium [Moles/Vol] 3.5 mmol/L Normal 3.5-5.1 [facility] Comment on above: Performed By: #### L 500.2500 ####[facility] [address] [place], [address] Sodium [Moles/Vol] 137 mmol/L Normal 136-145 [facility] Comment on above: Performed By: #### L 500.2500 ####[facility] [address] [place], [address] Urea nitrogen [Mass/Vol] 9 mg/dL Normal 7-18 [facility] Comment on above: Performed By: #### L 500.2500 ####[facility] [address] [place], [address] BUN/CRE 11.3 RATIO Normal 10-20 [facility] Comment on above: Performed By: #### L 500.2500 ####[facility] [address] [place], [address] CA,Total 8.2 mg/dL Low 8.5-10.1 [facility] Comment on above: Performed By: #### L 500.2500 ####[facility] [address] [place], [address] Chloride [Moles/Vol] 110 mmol/L High 98-107 [facility] Comment on above: Performed By: #### L 500.2500 ####[facility] [address] [place], [address] CO2 [Moles/Vol] 10.0 mmol/L Low 21.0-32.0 [facility] Comment on above: Performed By: #### L 500.2500 ####[facility] [address] [place], [address] Creatinine [Mass/Vol] 0.98 mg/dL Normal 0.55-1.02 [facility] Comment on above: Result Comment: The validity of the calculated GFR GFRAA in patients over70 years has not been determined. Clinical correlation isessential. Performed By: #### L 500.2500 ####[facility] [address] [place], [address] ECRCL 49.87 ml/min Normal [facility] Comment on above: Performed By: #### L 500.2500 ####[facility] [address] [facility] [address] EST GFR - AA 74 mL/min Normal >60 [facility] Comment on above: Result Comment: Afri can Cymraes GFR Calc Performed By: #### L 500.2500 ####[facility] [address] [place], [address] GAP 18 High 5-15 [facility] Comment on above: Performed By: #### L 500.2500 ####[facility] [address] [place], [address] GFR/1.73 sq M.predicted among non-blacks MDRD (S/P/Bld) [Vol rate/Area] 62 mL/min/{1.73_m2} Normal >60 [facility] Comment on above: Result Comment: Non- GFR Calc Performed By: #### L 500.2500 ####[facility] [address] [place], [address] Glucose [Mass/Vol] 328 mg/dL High 74-106 [facility] Comment on above: Result Comment: Gluc ose result greater than or equal to 200 mg/dLsuggests DIABETES MELLITUS per A.D.A. criteria. Performed By: #### L 500.2500 ####[facility] [address] [place], [address] Potassium [Moles/Vol] 3.7 mmol/L Normal 3.5-5.1 [facility] Comment on above: Performed By: #### L 500.2500 ####[facility] [address] [place], [address] Sodium [Moles/Vol] 138 mmol/L Normal 136-145 [facility] Comment on above: Performed By: #### L 500.2500 ####[facility] [address] [place], [address] Urea nitrogen [Mass/Vol] 11 mg/dL Normal 7-18 [facility] Comment on above: Performed By: #### L 500.2500 ####[facility] [address] [place], [address] Bedside Glucoseon 03-01-2024 FINGERSTICK GLU 109 mg/dL High -106 [facility] Comment on above: Result Comment: MARIA D GEMENT OF PATIENT CARE PER NURSING PROTOCOL Performed By: #### L 501.080 ####[facility] [address] [place], [address] FINGERSTICK GLU 247 mg/dL High 74-106 [facility] Comment on above: Result Comment: MARIA D GEMENT OF PATIENT CARE PER NURSING PROTOCOL Performed By: #### L 501.080 ####[facility] [address] [place], [address] FINGERSTICK GLU 256 mg/dL High 74-106 [facility] Comment on above: Result Comment: MARIA D GEMENT OF PATIENT CARE PER NURSING PROTOCOL Performed By: #### L 501.080 ####[facility] [address] [place], [address] FINGERSTICK GLU 148 mg/dL High 74-106 [facility] Comment on above: Result Comment: MARIA D GEMENT OF PATIENT CARE PER NURSING PROTOCOL Performed By: #### L 501.080 ####[facility] [address] [place], [address] FINGERSTICK GLU 210 mg/dL High 74-106 [facility] Comment on above: Result Comment: MARIA D GEMENT OF PATIENT CARE PER NURSING PROTOCOL Performed By: #### L 501.080 ####[facility] [address] [place], [address] FINGERSTICK GLU 241 mg/dL High 74-106 [facility] Comment on above: Result Comment: MARIA D GEMENT OF PATIENT CARE PER NURSING PROTOCOL Performed By: #### L 501.080 ####[facility] [address] [place], [address] FINGERSTICK GLU 243 mg/dL High 74-106 [facility] Comment on above: Result Comment: MARIA D GEMENT OF PATIENT CARE PER NURSING PROTOCOL Performed By: #### L 501.080 ####[facility] [address] [place], [address] FINGERSTICK GLU 343 mg/dL High 74-106 [facility] Comment on above: Result Comment: AMRIA D GEMENT OF PATIENT CARE PER NURSING PROTOCOL Performed By: #### L 501.080 ####[facility] [address] [place], [address] CBC W/Diff, Automatedon 02-05 PLT EST ADEQUATE Normal ADEQ [facility] Comment on above: Performed By: #### L 100.0100, L500.4050, L503.6005 ####[facility] [address] [place], [address] Comprehensive Metabolic Prof ilon 03-01-2024 Albumin [Mass/Vol] 4.1 g/dL Normal 3.2-5.0 [facility] Comment on above: Performed By: #### L 100.0100, L500.4050, L503.6005 ####[facility] [address] [place], [address] Albumin/Globulin [Mass ratio] 1.0 {ratio} Normal 0.9-2.4 [facility] Comment on above: Performed By: #### L 100.0100, L500.4050, L503.6005 ####[facility] [address] [place], [address] ALK P 115 U/L Normal 45-117 [facility] Comment on above: Performed By: #### L 100.0100, L500.4050, L503.6005 ####[facility] [address] [place], [address] ALT [Catalytic activity/Vol] 16 U/L Normal 13-56 [facility] Comment on above: Performed By: #### L 100.0100, L500.4050, L503.6005 ####[facility] [address] [place], [address] AST [Catalytic activity/Vol] 11 U/L Low 15-37 [facility] Comment on above: Performed By: #### L 100.0100, L500.4050, L503.6005 ####[facility] [address] [place], [address] Bilirubin [Mass/Vol] 0.50 mg/dL Normal 0.20-1.00 [facility] Comment on above: Result Comment: For patients on eltrombopag therapy, use of Dimension [place] TBIL is not recommended. Performed By: #### L 100.0100, L500.4050, L503.6005 ####[facility] [address] [place], [address] BUN/CRE 9.6 RATIO Low 10-20 [facility] Comment on above: Performed By: #### L 100.0100, L500.4050, L503.6005 ####[facility] [address] [place], [address] CA,Total 9.3 mg/dL Normal 8.5-10.1 [facility] Comment on above: Performed By: #### L 100.0100, L500.4050, L503.6005 ####[facility] [address] [place], [address] Chloride [Moles/Vol] 104 mmol/L Normal 98-107 [facility] Comment on above: Performed By: #### L 100.0100, L500.4050, L503.6005 ####[facility] [address] [place], [address] CO2 [Moles/Vol] 11.0 mmol/L Low 21.0-32.0 [facility] Comment on above: Performed By: #### L 100.0100, L500.4050, L503.6005 ####[facility] [address] [place], [address] Creatinine [Mass/Vol] 1.14 mg/dL High 0.55-1.02 [facility] Comment on above: Result Comment: The validity of the calculated GFR GFRAA in patients over70 years has not been determined. Clinical correlation isessential. Performed By: #### L 100.0100, L500.4050, L503.6005 ####[facility] [address] [place], [address] ECRCL 42.87 ml/min Normal [facility] Comment on above: Performed By: #### L 100.0100, L500.4050, L503.6005 ####[facility] [address] [place], [address] EST GFR - AA 62 mL/min Normal >60 [facility] Comment on above: Result Comment: Afri can Cymraes GFR Calc Performed By: #### L 100.0100, L500.4050, L503.6005 ####[facility] [address] [place], [address] GAP 20 High 5-15 [facility] Comment on above: Performed By: #### L 100.0100, L500.4050, L503.6005 ####[facility] [address] [place], [address] GFR/1.73 sq M.predicted among non-blacks MDRD (S/P/Bld) [Vol rate/Area] 51 mL/min/{1.73_m2} Low >60 [facility] Comment on above: Result Comment: Non- GFR Calc Performed By: #### L 100.0100, L500.4050, L503.6005 ####[facility] [address] [place], [address] Globulin (S) [Mass/Vol] 4.1 g/dL Normal 2.2-4.2 [facility] Comment on above: Performed By: #### L 100.0100, L500.4050, L503.6005 ####[facility] [address] [place], [address] Glucose [Mass/Vol] 419 mg/dL High 74-106 [facility] Comment on above: Result Comment: Gluc ose result greater than or equal to 200 mg/dLsuggests DIABETES MELLITUS per A.D.A. criteria. Performed By: #### L 100.0100, L500.4050, L503.6005 ####[facility] [address] [place], [address] Potassium [Moles/Vol] 4.0 mmol/L Normal 3.5-5.1 [facility] Comment on above: Performed By: #### L 100.0100, L500.4050, L503.6005 ####[facility] [address] [place], [address] Sodium [Moles/Vol] 135 mmol/L Low 136-145 [facility] Comment on above: Performed By: #### L 100.0100, L500.4050, L503.6005 ####[facility] [address] [place], [address] T PROT 8.2 g/dL Normal 6.4-8.2 [facility] Comment on above: Performed By: #### L 100.0100, L500.4050, L503.6005 ####[facility] [address] [place], [address] Urea nitrogen [Mass/Vol] 11 mg/dL Normal 7-18 [facility] Comment on above: Performed By: #### L 100.0100, L500.4050, L503.6005 ####[facility] [address] [place], [address] Emergency Department Summary on 03-01-2024 Emergency Department Summary Normal [facility] H AND P Exam - Hospitaliston 03-01-2024 H&P Exam - Hospitalist Normal [facility] L501.4020on 03-01-2024 TROPONIN-I HS 6 pg/mL Normal 3.0-54.0 [facility] Comment on above: Order Comment: 'TROP ' Serial specimen #1, #2 or #3: 1 Result Comment: Plea se Note: New Test Units and Gender Specific Reference Ranges. For more information see Policy Stat Procedure [place] High Sensitivity Troponin (TNIH) and attachments. Performed By: #### L 501.4020 ####[facility] [address] [place], [address] Lactic Acidon 03-01-2024 Lactate [Moles/Vol] 0.7 mmol/L Normal 0.4-1.9 [facility] Comment on above: Order Comment: Y Performed By: #### L 100.0100, L500.4050, L503.6005 ####[facility] [address] [place], [address] Urinalysis, Completeon 03-01 BACTERIA 0 SEEN Normal None Seen [facility] Comment on above: Order Comment: CRITI JUDD VALUE VERIFIED. CALLED TO KIMANI KEY03/01/24 0809 [facility] Rodriguez.RESULTS READ BACK BY SAME.HORTICULTURAL SPECIALTY GROWER FIELD TO SPECIFY Performed By: #### L 400.0001 ####[facility] [address] [place], [address] EPI,SQUAMOUS 0 SEEN Normal 5-10 [facility] Comment on above: Order Comment: CRITI JUDD VALUE VERIFIED. CALLED TO [address] [facility] Rodriguez.RESULTS READ BACK BY SAME.HORTICULTURAL SPECIALTY GROWER FIELD TO SPECIFY Performed By: #### L 400.0001 ####[facility] [address] [place], [address] Mucus Ql (Urine sed) 0 SEEN Normal [facility] Comment on above: Order Comment: CRITI JUDD VALUE VERIFIED. CALLED TO [address] [facility] Rodriguez.RESULTS READ BACK BY SAME.HORTICULTURAL SPECIALTY GROWER FIELD TO SPECIFY Performed By: #### L 400.0001 ####[facility] [address] [facility] [address] RBC 0 SEEN Normal 0-5 [facility] Comment on above: Order Comment: CRITI JUDD VALUE VERIFIED. CALLED TO [address] [facility] [place] Rodriguez.RESULTS READ BACK BY SAME.HORTICULTURAL SPECIALTY GROWER FIELD TO SPECIFY Performed By: #### L 400.0001 ####[facility] [address] [place], [address] WBC 0 SEEN Normal 0-5 [facility] Comment on above: Order Comment: CRITI JUDD VALUE VERIFIED. CALLED TO [address] [facility] [place] Rodriguez.RESULTS READ BACK BY SAME.HORTICULTURAL SPECIALTY GROWER FIELD TO SPECIFY Performed By: #### L 400.0001 ####[facility] [address] [place], [address] Absolute lymphocyte countOrd ered By: Reece Smith on 07-29-2023 Lymphocytes Auto (Unsp spec) [#/Vol] 1.19 10*3/uL 0.83-4.51 [facility] Automated lymphocyte count a s percentage of total leukocytesOrdered By: Reece Smith on 07-29-2023 Lymphocytes/100 WBC Auto (Unsp spec) 19.3 % 19-41 [facility] Basophil percentageOrdered B y: Reece Smith on 07-29-2023 Basophil percentage 0-5 SEEN /hpf 0-5 [facility] Basophils/100 WBC (Bld) 0.5 % 0-1 [facility] Chloride [Moles/Vol] 108 mmol/L 98-107 [facility] Eosinophils/100 WBC (Bld) 1.1 % 0-5 [facility] Glucose [Mass/Vol] 127 mg/dL 74-106 [facility] Comment on above: Fasting Glucose resu lt greater than or equal to 126 mg/dL suggests DIABETES MELLITUS per A.D.A. criteria. Hemoglobin (Bld) [Mass/Vol] 11.4 g/dL 12.0-15.0 [facility] Monocytes/100 WBC (Bld) 5.7 % 0-10 [facility] Neutrophils (Bld) [#/Vol] 4.5 10*3/uL 2.0-7.7 [facility] Neutrophils/100 WBC (Bld) 72.9 % 47-70 [facility] Potassium [Moles/Vol] 4.0 mmol/L 3.5-5.1 [facility] Sodium [Moles/Vol] 141 mmol/L 136-145 [facility] WBC (Bld) [#/Vol] 6.2 10*3/uL 4.4-11.0 [facility] Bilirubin Test strip Ql (U)O rdered By: Reece Smith on 07-29-2023 Bilirubin Ql (U) Negative Negative [facility] Determination of erythrocyte mean corpuscular volume (MCV)Ordered By: Reece Smith on 07-29-2023 MCV (RBC) [Entitic vol] 94.8 fL 81-99 [facility] Erythrocyte distribution wid th ratioOrdered By: Reece Smith on 07-29-2023 Erythrocyte distribution width (RBC) [Ratio] 14.5 % 11.6-14.6 [facility] Erythrocyte distribution wid th standard deviationOrdered By: Reece Smith on 07-29-2023 Erythrocyte distribution width (RBC) [Entitic vol] 50.0 fL 35.1-43.9 [facility] Hematocrit Auto (Bld) [Volum e fraction]Ordered By: Reece Smith on 07-29-2023 Hematocrit (Bld) [Volume fraction] 36.1 % 37-47 [facility] Immature granulocytes/100 WB C Auto (Bld)Ordered By: Reece Smith on 07-29-2023 Immature granulocytes/100 WBC (Bld) 0.500 % 0.0-0.9 [facility] Comment on above: IG% - Immature Granu locytes (promyelocytes, myelocytes and metamyelocytes) > 1% indicates that a LEFT SHIFT is Present. Ketones Test strip Ql (U)Ord ered By: Reece Smith on 07-29-2023 Ketones Ql (U) 50 mg/dl Negative [facility] Laboratory - Chemistry and C hemistry - challengeOrdered By: Reece Smith on 07-29-2023 CO2 [Moles/Vol] 27.0 mmol/L 21.0-32.0 [facility] Urea nitrogen/Creatinine [Mass ratio] 28.0 mg/mg 10-20 [facility] Laboratory - Hematology and Cell countsOrdered By: Reece Smith on 07-29-2023 MCH (RBC) [Entitic mass] 29.9 pg 27.0-32.0 [facility] MCHC (RBC) [Mass/Vol] 31.6 g/dL 32-36 [facility] Nucleated RBC/100 WBC (Bld) [Ratio] 0 % 0-5 [facility] Platelets (Bld) [#/Vol] 295 10*3/uL 150-450 [facility] Mucus LM Ql (Urine sed)Order ed By: Reece Smith on 07-29-2023 Mucus Ql (Urine sed) 0 SEEN /hpf [facility] Nitrite Test strip Ql (U)Ord ered By: Reece Smith on 07-29-2023 Nitrite Ql (U) Negative Negative [facility] No Panel InformationOrdered By: Reece Smith on 07-29-2023 Urine RBC 0 SEEN /hpf 0-5 [facility] Estimated Creatinine Clearance Calc 76.36 ml/min [facility] Estimated GFR (MDRD) Amer 121 mL/min >60 [facility] Comment on above: GFR Calc Estimated GFR (MDRD) Non-Af Amer 100 mL/min >60 [facility] Comment on above: Non- GFR Calc Troponin I High Sensitivity 10 pg/mL 3.0-54.0 [facility] Comment on above: Please Note: New Jessica t Units and Gender Specific Reference Ranges. For more information see Policy Stat Procedure [place] High Sensitivity Troponin (TNIH) and attachments. Platelet mean volume Amado-Ec ker (Bld) [Entitic vol]Ordered By: Reece Smith on 07-29-2023 Platelet mean volume (Bld) [Entitic vol] 12.1 fL 6.2-12.0 [facility] Protein Test strip Ql (U)Ord ered By: Reece Smith on 07-29-2023 Protein Ql (U) Negative Negative [facility] RBC Auto (Bld) [#/Vol]Ordere d By: Reece Smith on 07-29-2023 RBC (Bld) [#/Vol] 3.81 10*6/uL 4.2-5.4 [facility] Serum or plasma calcium jn urement (mass/volume)Ordered By: Reece Smith on 07-29-2023 Calcium [Mass/Vol] 9.8 mg/dL 8.5-10.1 [facility] Serum or plasma creatinine m easurement (mass/volume)Ordered By: Reece Smith on 07-29-2023 Creatinine [Mass/Vol] 0.64 mg/dL 0.55-1.02 [facility] Comment on above: The validity of the calculated GFR & GFRAA in patients over 70 years has not been determined. Clinical correlation is essential. Serum or plasma urea nitroge n measurement (mass/volume)Ordered By: Reece Smith on 07-29-2023 Urea nitrogen [Mass/Vol] 18 mg/dL 7-18 [facility] Squamous epithelial cells de tection in urine sediment by light microscopyOrdered By: Reece Smith on 07-29-2023 Epithelial cells.squamous LM Ql (Urine sed) 0 SEEN /hpf 5-10 [facility] Thin prep Papanicolaou smear with manual screeningOrdered By: Reece Smith on 07-29-2023 Thin prep Papanicolaou smear with manual screening 212 mg/dL 74-106 [facility] Comment on above: MANAGEMENT OF PATIEN T CARE PER NURSING PROTOCOL Thin prep Papanicolaou smear with manual screening 6 5-15 [facility] Urine blood detectionOrdered By: Reece Smith on 07-29-2023 RBC Ql (U) Negative Negative [facility] Urine clarityOrdered By: Neil Smith on 07-29-2023 Clarity (U) Clear Clear [facility] Urine color determinationOrd ered By: Reece Smith on 07-29-2023 Color (U) Yellow Yellow [facility] Urine glucose detectionOrder ed By: Reece Smith on 07-29-2023 Glucose Ql (U) Normal mg/dl Normal [facility] Urine leukocyte esterase det ection by dipstickOrdered By: Reece Smith on 07-29-2023 Leukocyte esterase Test strip Ql (U) 25 /ul Negative [facility] Urine pHOrdered By: Reece Smith on 07-29-2023 pH (U) 6.0 [pH] 5.0 - 8.0 [facility] Urine sediment bacteria coun t by microscopy (number/high power field)Ordered By: Reece Smith on 07-29-2023 Bacteria LM.HPF (Urine sed) [#/Area] 0 /[HPF] None Seen [facility] Urine specific gravity measu rementOrdered By: Reece Smith on 07-29-2023 Specific gravity (U) [Rel density] 1.020 1.002-1.030 [facility] Urine urobilinogen measureme ntOrdered By: Reece Smith on 07-29-2023 Urobilinogen Ql (U) Normal mg/dl Normal [facility] Absolute lymphocyte countOrd ered By: Sanjana Quigley on 07-06-2023 Lymphocytes Auto (Unsp spec) [#/Vol] 2.04 10*3/uL 0.83-4.51 [facility] Basophil percentageOrdered B y: Sanjana Quigley on 07-06-2023 Basophils/100 WBC (Bld) 1.0 % 0-1 [facility] Chloride [Moles/Vol] 110 mmol/L 98-107 [facility] Eosinophils/100 WBC (Bld) 1.6 % 0-5 [facility] Glucose [Mass/Vol] 132 mg/dL 74-106 [facility] Comment on above: Fasting Glucose resu lt greater than or equal to 126 mg/dL suggests DIABETES MELLITUS per A.D.A. criteria. Neutrophils (Bld) [#/Vol] 1.3 10*3/uL 2.0-7.7 [facility] Neutrophils/100 WBC (Bld) 34.0 % 47-70 [facility] Potassium [Moles/Vol] 2.7 mmol/L 3.5-5.1 [facility] Comment on above: Critical Result(s) C alled at: 06:51:47 07/06/2023 by: June Fung to [facility]. Results read back by same. Sodium [Moles/Vol] 141 mmol/L 136-145 [facility] WBC (Bld) [#/Vol] 3.9 10*3/uL 4.4-11.0 [facility] Blood erythrocytes count (nu mber/volume)Ordered By: Sanjana Quigley on 07-06-2023 RBC (Bld) [#/Vol] 3.33 10*6/uL 4.2-5.4 [facility] Blood hemoglobin measurement (mass/volume)Ordered By: Sanjana Quigley on 07-06-2023 Hemoglobin (Bld) [Mass/Vol] 9.9 g/dL 12.0-15.0 [facility] Blood lymphocytes/100 leukoc ytesOrdered By: Sanjana Quigley on 07-06-2023 Lymphocytes/100 WBC (Bld) 53.0 % 19-41 [facility] Blood monocytes/100 leukocyt esOrdered By: Sanjana Quigley on 07-06-2023 Monocytes/100 WBC (Bld) 9.9 % 0-10 [facility] Blood platelet mean volumeOr dered By: Sanjana Quigley on 07-06-2023 Platelet mean volume (Bld) [Entitic vol] 11.9 fL 6.2-12.0 [facility] Determination of erythrocyte mean corpuscular volume (MCV)Ordered By: Sanjana Quigley on 07-06-2023 MCV (RBC) [Entitic vol] 86.2 fL 81-99 [facility] Glucose Glucometer (BldC) [M ass/Vol]Ordered By: Sanjana Quigley on 07-06-2023 Glucose [Mass/Vol] 223 mg/dL 74-106 [facility] Comment on above: MANAGEMENT OF PATIEN T CARE PER NURSING PROTOCOL Hematocrit Auto (Bld) [Volum e fraction]Ordered By: Sanjana Quigley on 07-06-2023 Hematocrit (Bld) [Volume fraction] 28.7 % 37-47 [facility] Laboratory - Chemistry and C hemistry - challengeOrdered By: Sanjana Quigley on 07-06-2023 CO2 [Moles/Vol] 27.0 mmol/L 21.0-32.0 [facility] Urea nitrogen/Creatinine [Mass ratio] 24.0 mg/mg 10-20 [facility] Laboratory - Hematology and Cell countsOrdered By: Sanjana Quigley on 07-06-2023 Erythrocyte distribution width (RBC) [Entitic vol] 41.4 fL 35.1-43.9 [facility] Erythrocyte distribution width (RBC) [Ratio] 13.2 % 11.6-14.6 [facility] Immature granulocytes/100 WBC (Bld) 0.500 % 0.0-0.9 [facility] Comment on above: IG% - Immature Granu locytes (promyelocytes, myelocytes and metamyelocytes) > 1% indicates that a LEFT SHIFT is Present. MCH (RBC) [Entitic mass] 29.7 pg 27.0-32.0 [facility] Nucleated RBC/100 WBC (Bld) [Ratio] 0 % 0-5 [facility] MCHC Auto (RBC) [Mass/Vol]Or dered By: Sanjana Quigley on 07-06-2023 MCHC (RBC) [Mass/Vol] 34.5 g/dL 32-36 [facility] No Panel InformationOrdered By: Sanjana Quigley on 07-06-2023 Estimated Creatinine Clearance Calc 97.74 ml/min [facility] Estimated GFR (MDRD) Amer 161 mL/min >60 [facility] Comment on above: GFR Calc Estimated GFR (MDRD) Non-Af Amer 133 mL/min >60 [facility] Comment on above: Non- GFR Calc Platelets bldOrdered By: Freya Quigley on 07-06-2023 Platelets (Bld) [#/Vol] 185 10*3/uL 150-450 [facility] Serum or plasma calcium jn urement (mass/volume)Ordered By: Sanjana Riverajose l on 07-06-2023 Calcium [Mass/Vol] 8.5 mg/dL 8.5-10.1 [facility] Serum or plasma creatinine m easurement (mass/volume)Ordered By: Sanjana Riverajose l on 07-06-2023 Creatinine [Mass/Vol] 0.50 mg/dL 0.55-1.02 [facility] Comment on above: The validity of the calculated GFR & GFRAA in patients over 70 years has not been determined. Clinical correlation is essential. Serum or plasma urea nitroge n measurement (mass/volume)Ordered By: Sanjana Riverajose l on 07-06-2023 Urea nitrogen [Mass/Vol] 12 mg/dL 7-18 [facility] Thin prep Papanicolaou smear with manual screeningOrdered By: Sanjanafifi Quigley on 07-06-2023 Thin prep Papanicolaou smear with manual screening 4 5-15 [facility] Basophil percentageOrdered B y: Sanjana Riverajose l on 07-04-2023 Lactate [Moles/Vol] 0.7 mmol/L 0.4-2.0 [facility] Absolute lymphocyte countOrd ered By: Stevenlois Voss on 07-02-2023 Lymphocytes Auto (Unsp spec) [#/Vol] 1.43 10*3/uL 0.83-4.51 [facility] Basophil percentageOrdered B y: Steven Voss on 07-02-2023 Basophil percentage 25-50 SEEN /hpf 0-5 [facility] Basophils/100 WBC (Bld) 0.6 % 0-1 [facility] Chloride [Moles/Vol] 103 mmol/L 98-107 [facility] Eosinophils/100 WBC (Bld) 0.1 % 0-5 [facility] Glucose [Mass/Vol] 352 mg/dL 74-106 [facility] Comment on above: Glucose result great er than or equal to 200 mg/dLsuggests DIABETES MELLITUS per A.D.A. criteria. Neutrophils (Bld) [#/Vol] 5.3 10*3/uL 2.0-7.7 [facility] Neutrophils/100 WBC (Bld) 74.0 % 47-70 [facility] Potassium [Moles/Vol] 3.8 mmol/L 3.5-5.1 [facility] Sodium [Moles/Vol] 135 mmol/L 136-145 [facility] WBC (Bld) [#/Vol] 7.1 10*3/uL 4.4-11.0 [facility] Bilirubin Test strip Ql (U)O rdered By: Steven Voss on 07-02-2023 Bilirubin Ql (U) Negative Negative [facility] Blood erythrocytes count (nu mber/volume)Ordered By: Steven Voss on 07-02-2023 RBC (Bld) [#/Vol] 4.71 10*6/uL 4.2-5.4 [facility] Blood hemoglobin measurement (mass/volume)Ordered By: Steven Voss on 07-02-2023 Hemoglobin (Bld) [Mass/Vol] 14.0 g/dL 12.0-15.0 [facility] Blood lymphocytes/100 leukoc ytesOrdered By: Steven Voss on 07-02-2023 Lymphocytes/100 WBC (Bld) 20.1 % 19-41 [facility] Blood monocytes/100 leukocyt esOrdered By: Steven Voss on 07-02-2023 Monocytes/100 WBC (Bld) 4.6 % 0-10 [facility] Blood platelet mean volumeOr dered By: Steven Voss on 07-02-2023 Platelet mean volume (Bld) [Entitic vol] 11.8 fL 6.2-12.0 [facility] Culture, urineOrdered By: Sherita Voss on 07-02-2023 Bacteria identified Cx Nom (U) Culture exhibits no growth. [facility] Determination of erythrocyte mean corpuscular volume (MCV)Ordered By: Steven Voss on 07-02-2023 MCV (RBC) [Entitic vol] 92.1 fL 81-99 [facility] Erythrocyte sedimentation ra teOrdered By: Steven Voss on 07-02-2023 ESR (Bld) [Velocity] 24 mm/h 0-30 [facility] Glucose Glucometer (dC) [M ass/Vol]Ordered By: Steven Voss on 07-02-2023 Glucose [Mass/Vol] 308 mg/dL 74-106 [facility] Comment on above: MANAGEMENT OF PATIEN T CARE PER NURSING PROTOCOL Hematocrit Auto (Bld) [Volum e fraction]Ordered By: Steven Voss on 07-02-2023 Hematocrit (Bld) [Volume fraction] 43.4 % 37-47 [facility] Ketones Test strip Ql (U)Ord ered By: Steven Voss on 07-02-2023 Ketones Ql (U) 150 mg/dl Negative [facility] Comment on above: CRITICAL VALUE *HCRI TICAL VALUE VERIFIED. CALLED TO [id number] Nina Guajardo.RESULTS READ BACK BY SAME . Laboratory - Chemistry and C hemistry - challengeOrdered By: Steven Voss on 07-02-2023 CO2 [Moles/Vol] 10.0 mmol/L 21.0-32.0 [facility] Urea nitrogen/Creatinine [Mass ratio] 14.4 mg/mg 10-20 [facility] Laboratory - Drug toxicology Ordered By: Torsten Sutton on 07-02-2023 Amphetamines Ql (U) Negative <1000 ng/mL [facility] Benzodiazepines Ql (U) Positive < 200 ng/mL [facility] Cannabinoids Screen Ql (U) Negative < 50 ng/mL [facility] Cocaine Ql (U) Negative < 300 ng/mL [facility] Opiates Ql (U) Positive < 300 ng/mL [facility] Laboratory - Hematology and Cell countsOrdered By: Steven Voss on 07-02-2023 Erythrocyte distribution width (RBC) [Entitic vol] 43.7 fL 35.1-43.9 [facility] Erythrocyte distribution width (RBC) [Ratio] 12.9 % 11.6-14.6 [facility] Immature granulocytes/100 WBC (Bld) 0.600 % 0.0-0.9 [facility] Comment on above: IG% - Immature Granu locytes (promyelocytes, myelocytes and metamyelocytes) > 1% indicates that a LEFT SHIFT is Present. MCH (RBC) [Entitic mass] 29.7 pg 27.0-32.0 [facility] Nucleated RBC/100 WBC (Bld) [Ratio] 0 % 0-5 [facility] Auto (RBC) [Mass/Vol]Or dered By: Steven Voss on 07-02-2023 MCHC (RBC) [Mass/Vol] 32.3 g/dL 32-36 [facility] Mucus LM Ql (Urine sed)Order ed By: Steven Voss on 07-02-2023 Mucus Ql (Urine sed) 0 SEEN /hpf [facility] Nitrite Test strip Ql (U)Ord ered By: Steven Voss on 07-02-2023 Nitrite Ql (U) Negative Negative [facility] No Panel InformationOrdered By: Torsten Sutton on 07-02-2023 Ethyl Alcohol Level < 3.0 mg/dL [facility] Comment on above: The serum:whole bloo d ethanol ratio is approximately 1.14and varies slightly with hematocrit. Medical Alcohol reference interval and critical value innon-tolerant individuals; 50 - 100 Impairment 100 Intoxication 100 - 250 Severe Poisoning 250 - 400 Deep/possible fatal coma MDMA (Ecstasy) Screen Negative < 500 ng/mL [facility] Urine Barbiturates Screen Negative < 200 ng/mL [facility] Urine Drug Screen Comment [facility] Comment on above: CONFIRMATORY TESTING FOR ALL [...] Methadone Screen Negative < 300 ng/mL [facility] No Panel InformationOrdered By: Steven Voss on 07-02-2023 Estimated GFR (MDRD) Amer 64 mL/min >60 [facility] Comment on above: GFR Calc Estimated GFR (MDRD) Non-Af Amer 53 mL/min >60 [facility] Comment on above: Non- GFR Calc Platelets bldOrdered By: Steven Voss on 07-02-2023 Platelets (Bld) [#/Vol] 261 10*3/uL 150-450 [facility] Protein Test strip Ql (U)Ord ered By: Steven Voss on 07-02-2023 Protein Ql (U) 30 mg/dl Negative [facility] Serum or plasma calcium jn urement (mass/volume)Ordered By: Steven Voss on 07-02-2023 Calcium [Mass/Vol] 10.2 mg/dL 8.5-10.1 [facility] Serum or plasma creatinine m easurement (mass/volume)Ordered By: Steven Voss on 07-02-2023 Creatinine [Mass/Vol] 1.11 mg/dL 0.55-1.02 [facility] Comment on above: The validity of the calculated GFR & GFRAA in patients over 70 years has not been determined. Clinical correlation is essential. Serum or plasma urea nitroge n measurement (mass/volume)Ordered By: Steven Voss on 07-02-2023 Urea nitrogen [Mass/Vol] 16 mg/dL 7-18 [facility] Squamous epithelial cells de tection in urine sediment by light microscopyOrdered By: Steven Voss on 07-02-2023 Epithelial cells.squamous LM Ql (Urine sed) 0-5 SEEN /hpf 5-10 [facility] Thin prep Papanicolaou smear with manual screeningOrdered By: Steven Voss on 07-02-2023 Thin prep Papanicolaou smear with manual screening 22 5-15 [facility] Urine blood detectionOrdered By: Steven Voss on 07-02-2023 RBC Ql (U) 50 /ul Negative [facility] RBC Ql (U) 0 SEEN /hpf 0-5 [facility] Urine clarityOrdered By: Steven Voss on 07-02-2023 Clarity (U) Clear Clear [facility] Urine color determinationOrd ered By: Steven Voss on 07-02-2023 Color (U) Yellow Yellow [facility] Urine glucose detectionOrder ed By: Steven Voss on 07-02-2023 Glucose Ql (U) 1000 mg/dl Normal [facility] Urine leukocyte esterase det ection by dipstickOrdered By: Steven Voss on 07-02-2023 Leukocyte esterase Test strip Ql (U) 100 /ul Negative [facility] Urine pHOrdered By: Steven ng on 07-02-2023 pH (U) 5.0 [pH] 5.0 - 8.0 [facility] Urine phencyclidine (PCP) de tectionOrdered By: Torsten Sutton on 07-02-2023 Phencyclidine Ql (U) Negative < 25 ng/mL [facility] Urine sediment bacteria coun t by microscopy (number/high power field)Ordered By: Stevenlois Voss on 07-02-2023 Bacteria LM.HPF (Urine sed) [#/Area] 0 /[HPF] None Seen [facility] Urine specific gravity measu rementOrdered By: Steven Voss on 07-02-2023 Specific gravity (U) [Rel density] 1.020 1.002-1.030 [facility] Urobilinogen Auto test strip Ql (U)Ordered By: Stevenlois Voss on 07-02-2023 Urobilinogen Ql (U) Normal mg/dl Normal [facility] Whole blood hemoglobin A1c/t otal hemoglobin ratio (mass fraction)Ordered By: Torsten Sutton on 07-02-2023 HbA1c (Bld) [Mass fraction] 13.9 % 3.8-5.6 [facility] Comment on above: Normal < 5.7 % Predi abetic 5.7 - 6.4 % Diabetic >or= 6.5 % Please note range changes. Glucose Glucometer (BldC) [M ass/Vol]Ordered By: Aleksandar Rebolledo on 07-01-2023 Glucose [Mass/Vol] 490 mg/dL 74-106 [facility] Comment on above: Dr Abel RichmondMA NAGEMENT OF PATIENT CARE PER NURSING PROTOCOL Basophil percentageOrdered B y: Milind Lamb on 05-21-2023 Chloride [Moles/Vol] 100 mmol/L 98-107 [facility] Cholesterol [Mass/Vol] 223 mg/dL <200 [facility] Comment on above: <200 mg/dL Desirable 200-240 mg/dL Borderline >240 mg/dL High Risk Glucose [Mass/Vol] 371 mg/dL 74-106 [facility] Comment on above: Glucose result great er than or equal to 200 mg/dLsuggests DIABETES MELLITUS per A.D.A. criteria. Potassium [Moles/Vol] 4.0 mmol/L 3.5-5.1 [facility] Comment on above: Slight Hemolysis, Re sult may be falsely increased. Sodium [Moles/Vol] 134 mmol/L 136-145 [facility] Triglyceride [Mass/Vol] 116 mg/dL <199 [facility] Comment on above: The drugs N-Acetylcy steine and Metamizole may falsely depress this assay.Serum Triglycerides Reference Interval Normal <150 mg/dL Borderline high 150 - 199 mg/dL High 200 - 499 mg/dL Very High > or = 500 mg/dL Laboratory - Chemistry and C hemistry - challengeOrdered By: Milind Lamb on 05-21-2023 CO2 [Moles/Vol] 25.0 mmol/L 21.0-32.0 [facility] Urea nitrogen/Creatinine [Mass ratio] 22.5 mg/mg 10-20 [facility] No Panel InformationOrdered By: Milind Lamb on 05-21-2023 Estimated GFR (MDRD) Amer 83 mL/min >60 [facility] Comment on above: GFR Calc Estimated GFR (MDRD) Non-Af Amer 69 mL/min >60 [facility] Comment on above: Non- GFR Calc Serum or plasma calcium jn urement (mass/volume)Ordered By: Milind Lamb on 05-21-2023 Calcium [Mass/Vol] 9.2 mg/dL 8.5-10.1 [facility] Serum or plasma cholesterol in HDL measurement (mass/volume)Ordered By: Milind Lamb on 05-21-2023 Cholesterol in HDL [Mass/Vol] 107 mg/dL >40 [facility] Comment on above: The drugs N-Acetylcy steine and Metamizole may falsely depress this assay. Reference Range HDL <40 mg/dL Low HDL Cholesterol HDL >or= 60 mg/dL High HDL Cholesterol Serum or plasma cholesterol in VLDL measurement (mass/volume)Ordered By: Milind Lamb on 05-21-2023 Cholesterol in VLDL [Mass/Vol] 23 mg/dL 5-40 [facility] Serum or plasma creatinine m easurement (mass/volume)Ordered By: Milind Lamb on 05-21-2023 Creatinine [Mass/Vol] 0.89 mg/dL 0.55-1.02 [facility] Comment on above: The validity of the calculated GFR & GFRAA in patients over 70 years has not been determined. Clinical correlation is essential. Serum or plasma low density lipoprotein (LDL) cholesterol measurement (mass/volume)Ordered By: Milind Lamb on 05-21-2023 Cholesterol in LDL [Mass/Vol] 93 mg/dL 0-130 [facility] Serum or plasma urea nitroge n measurement (mass/volume)Ordered By: Milind Lamb on 05-21-2023 Urea nitrogen [Mass/Vol] 20 mg/dL 7-18 [facility] Thin prep Papanicolaou smear with manual screeningOrdered By: Milind Lamb on 05-21-2023 Thin prep Papanicolaou smear with manual screening 9 5-15 [facility] Basophil percentageOrdered B y: Dr. Ahumada on 07-28-2022 Chloride [Moles/Vol] 114 mmol/L 98-107 [facility] Glucose [Mass/Vol] 80 mg/dL 74-106 [facility] Potassium [Moles/Vol] 2.5 mmol/L 3.5-5.1 [facility] Comment on above: Critical Result(s) C alled at: 06:56:24 07/28/2022 by: Arvin Anthony to Danielle TERAN (MS3). Results read back by same. Sodium [Moles/Vol] 141 mmol/L 136-145 [facility] Glucose Glucometer (BldC) [M ass/Vol]Ordered By: Dr. Ahumada on 07-28-2022 Glucose [Mass/Vol] 248 mg/dL 74-106 [facility] Comment on above: MANAGEMENT OF PATIEN T CARE PER NURSING PROTOCOL Laboratory - Chemistry and C hemistry - challengeOrdered By: Dr. Ahumada on 07-28-2022 CO2 [Moles/Vol] 20.0 mmol/L 21.0-32.0 [facility] Urea nitrogen/Creatinine [Mass ratio] 13.7 mg/mg 10-20 [facility] No Panel InformationOrdered By: Dr. Ahumada on 07-28-2022 Estimated Creatinine Clearance Calc 79.08 ml/min [facility] Estimated GFR (MDRD) Amer 135 mL/min >60 [facility] Comment on above: GFR Calc Estimated GFR (MDRD) Non-Af Amer 111 mL/min >60 [facility] Comment on above: Non- GFR Calc Serum or plasma calcium jn urement (mass/volume)Ordered By: Dr. Ahumada on 07-28-2022 Calcium [Mass/Vol] 8.8 mg/dL 8.5-10.1 [facility] Serum or plasma creatinine m easurement (mass/volume)Ordered By: Dr. Ahumada on 07-28-2022 Creatinine [Mass/Vol] 0.59 mg/dL 0.55-1.02 [facility] Comment on above: The validity of the calculated GFR & GFRAA in patients over 70 years has not been determined. Clinical correlation is essential. Serum or plasma urea nitroge n measurement (mass/volume)Ordered By: Dr. Ahumada on 07-28-2022 Urea nitrogen [Mass/Vol] 8 mg/dL 7-18 [facility] Thin prep Papanicolaou smear with manual screeningOrdered By: Dr. Ahumada on 07-28-2022 Thin prep Papanicolaou smear with manual screening 7 5-15 [facility] Absolute lymphocyte countOrd ered By: Dr. Ahumada on 07-27-2022 Lymphocytes Auto (Unsp spec) [#/Vol] 1.63 10*3/uL 0.83-4.51 [facility] Basophil percentageOrdered B y: Dr. Ahumada on 07-27-2022 Basophils/100 WBC (Bld) 0.4 % 0-1 [facility] Eosinophils/100 WBC (Bld) 0.9 % 0-5 [facility] Neutrophils (Bld) [#/Vol] 3.2 10*3/uL 2.0-7.7 [facility] Neutrophils/100 WBC (Bld) 58.4 % 47-70 [facility] WBC (Bld) [#/Vol] 5.5 10*3/uL 4.4-11.0 [facility] Blood erythrocytes count (nu mber/volume)Ordered By: Dr. Ahumada on 07-27-2022 RBC (Bld) [#/Vol] 3.37 10*6/uL 4.2-5.4 [facility] Blood hemoglobin measurement (mass/volume)Ordered By: Dr. Ahumada on 07-27-2022 Hemoglobin (Bld) [Mass/Vol] 10.2 g/dL 12.0-15.0 [facility] Blood lymphocytes/100 leukoc ytesOrdered By: Dr. Ahumada on 07-27-2022 Lymphocytes/100 WBC (Bld) 29.5 % 19-41 [facility] Blood monocytes/100 leukocyt esOrdered By: Dr. Ahumada on 07-27-2022 Monocytes/100 WBC (Bld) 10.3 % 0-10 [facility] Blood platelet mean volumeOr dered By: Dr. Ahumada on 07-27-2022 Platelet mean volume (Bld) [Entitic vol] 11.1 fL 6.2-12.0 [facility] Determination of erythrocyte mean corpuscular volume (MCV)Ordered By: Dr. Ahumada on 07-27-2022 MCV (RBC) [Entitic vol] 85.5 fL 81-99 [facility] Hematocrit Auto (Bld) [Volum e fraction]Ordered By: Dr. Ahumada on 07-27-2022 Hematocrit (Bld) [Volume fraction] 28.8 % 37-47 [facility] Laboratory - Hematology and Cell countsOrdered By: Dr. Ahumada on 07-27-2022 Erythrocyte distribution width (RBC) [Entitic vol] 40.8 fL 35.1-43.9 [facility] Erythrocyte distribution width (RBC) [Ratio] 13.2 % 11.6-14.6 [facility] Immature granulocytes/100 WBC (Bld) 0.500 % 0.0-0.9 [facility] Comment on above: IG% - Immature Granu locytes (promyelocytes, myelocytes and metamyelocytes) > 1% indicates that a LEFT SHIFT is Present. MCH (RBC) [Entitic mass] 30.3 pg 27.0-32.0 [facility] Nucleated RBC/100 WBC (Bld) [Ratio] 0 % 0-5 [facility] MCHC Auto (RBC) [Mass/Vol]Or dered By: Dr. Ahumada on 07-27-2022 MCHC (RBC) [Mass/Vol] 35.4 g/dL 32-36 [facility] Comment on above: Delta: 32.8 on 07/26-1135 Platelets bldOrdered By: Dr. Ahumada on 07-27-2022 Platelets (Bld) [#/Vol] 156 10*3/uL 150-450 [facility] Absolute lymphocyte countOrd ered By: Dr. Voss on 07-26-2022 Lymphocytes Auto (Unsp spec) [#/Vol] 1.17 10*3/uL 0.83-4.51 [facility] Basophil percentageOrdered B y: Dr. Voss on 07-26-2022 Basophil percentage 0 SEEN /hpf 0-5 [facility] Basophils/100 WBC (Bld) 0.7 % 0-1 [facility] Chloride [Moles/Vol] 99 mmol/L 98-107 [facility] Eosinophils/100 WBC (Bld) 0.1 % 0-5 [facility] Glucose [Mass/Vol] 686 mg/dL 74-106 [facility] Comment on above: Critical Result(s) C alled at: 12:11:35 07/26/2022 by: June ford [facility]. Results read back by same.Glucose result greater than or equal to 200 mg/dLsuggests DIABETES MELLITUS per A.D.A. criteria. Neutrophils (Bld) [#/Vol] 7.7 10*3/uL 2.0-7.7 [facility] Neutrophils/100 WBC (Bld) 79.8 % 47-70 [facility] Potassium [Moles/Vol] 4.2 mmol/L 3.5-5.1 [facility] Sodium [Moles/Vol] 132 mmol/L 136-145 [facility] WBC (Bld) [#/Vol] 9.7 10*3/uL 4.4-11.0 [facility] Bilirubin Test strip Ql (U)O rdered By: Dr. Voss on 07-26-2022 Bilirubin Ql (U) Negative Negative [facility] Blood erythrocytes count (nu mber/volume)Ordered By: Dr. Voss on 07-26-2022 RBC (Bld) [#/Vol] 4.25 10*6/uL 4.2-5.4 [facility] Blood hemoglobin measurement (mass/volume)Ordered By: Dr. Voss on 07-26-2022 Hemoglobin (Bld) [Mass/Vol] 12.5 g/dL 12.0-15.0 [facility] Blood lymphocytes/100 leukoc ytesOrdered By: Dr. Voss on 07-26-2022 Lymphocytes/100 WBC (Bld) 12.1 % 19-41 [facility] Blood monocytes/100 leukocyt esOrdered By: Dr. Voss on 07-26-2022 Monocytes/100 WBC (Bld) 5.0 % 0-10 [facility] Blood platelet mean volumeOr dered By: Dr. Voss on 07-26-2022 Platelet mean volume (Bld) [Entitic vol] 12.0 fL 6.2-12.0 [facility] Determination of erythrocyte mean corpuscular volume (MCV)Ordered By: Dr. Voss on 07-26-2022 MCV (RBC) [Entitic vol] 89.6 fL 81-99 [facility] Glucose Glucometer (BldC) [M ass/Vol]Ordered By: Dr. Voss on 07-26-2022 Glucose [Mass/Vol] mg/dL 74-106 [facility] Comment on above: Dr Abel RichmondMA NAGEMENT OF PATIENT CARE PER NURSING PROTOCOL Hematocrit Auto (Bld) [Volum e fraction]Ordered By: Dr. Voss on 07-26-2022 Hematocrit (Bld) [Volume fraction] 38.1 % 37-47 [facility] Ketones Test strip Ql (U)Ord ered By: Dr. Voss on 07-26-2022 Ketones Ql (U) 150 mg/dl Negative [facility] Comment on above: CRITICAL VALUE *HCRI TICAL VALUE VERIFIED. CALLED TO JAMILAH TERAN (ICU)07/26/22 1515 Eric Anthony.RESULTS READ BACK BY SAME. Laboratory - Chemistry and C hemistry - challengeOrdered By: Dr. Voss on 07-26-2022 CO2 [Moles/Vol] 6.0 mmol/L 21.0-32.0 [facility] Comment on above: Critical Result(s) C alled at: 12:11:35 07/26/2022 by: June Donnelly. Results read back by same. Magnesium [Mass/Vol] 2.3 mg/dL 1.6-2.6 [facility] Urea nitrogen/Creatinine [Mass ratio] 10.6 mg/mg 10-20 [facility] Laboratory - Hematology and Cell countsOrdered By: Dr. Voss on 07-26-2022 Erythrocyte distribution width (RBC) [Entitic vol] 43.4 fL 35.1-43.9 [facility] Erythrocyte distribution width (RBC) [Ratio] 13.2 % 11.6-14.6 [facility] Immature granulocytes/100 WBC (Bld) 2.300 % 0.0-0.9 [facility] Comment on above: IG% - Immature Granu locytes (promyelocytes, myelocytes and metamyelocytes) > 1% indicates that a LEFT SHIFT is Present. MCH (RBC) [Entitic mass] 29.4 pg 27.0-32.0 [facility] Nucleated RBC/100 WBC (Bld) [Ratio] 0 % 0-5 [facility] MCHC Auto (RBC) [Mass/Vol]Or dered By: Dr. Voss on 07-26-2022 MCHC (RBC) [Mass/Vol] 32.8 g/dL 32-36 [facility] Mucus LM Ql (Urine sed)Order ed By: Dr. Voss on 07-26-2022 Mucus Ql (Urine sed) 0 SEEN /hpf [facility] Nitrite Test strip Ql (U)Ord ered By: Dr. Voss on 07-26-2022 Nitrite Ql (U) Negative Negative [facility] No Panel InformationOrdered By: Dr. Voss on 07-26-2022 Estimated Creatinine Clearance Calc 37.49 ml/min [facility] Estimated GFR (MDRD) Amer 53 mL/min >60 [facility] Comment on above: GFR Calc Estimated GFR (MDRD) Non-Af Amer 44 mL/min >60 [facility] Comment on above: Non- GFR Calc Platelets bldOrdered By: Dr. Voss on 07-26-2022 Platelets (Bld) [#/Vol] 234 10*3/uL 150-450 [facility] Protein Test strip Ql (U)Ord ered By: Dr. Voss on 07-26-2022 Protein Ql (U) 30 mg/dl Negative [facility] Serum or plasma calcium jn urement (mass/volume)Ordered By: Dr. Voss on 07-26-2022 Calcium [Mass/Vol] 9.7 mg/dL 8.5-10.1 [facility] Serum or plasma creatinine m easurement (mass/volume)Ordered By: Dr. Voss on 07-26-2022 Creatinine [Mass/Vol] 1.32 mg/dL 0.55-1.02 [facility] Comment on above: The validity of the calculated GFR & GFRAA in patients over 70 years has not been determined. Clinical correlation is essential. Serum or plasma urea nitroge n measurement (mass/volume)Ordered By: Dr. Voss on 07-26-2022 Urea nitrogen [Mass/Vol] 14 mg/dL 7-18 [facility] Squamous epithelial cells de tection in urine sediment by light microscopyOrdered By: Dr. Voss on 07-26-2022 Epithelial cells.squamous LM Ql (Urine sed) 0 SEEN /hpf 5-10 [facility] Thin prep Papanicolaou smear with manual screeningOrdered By: Dr. Voss on 07-26-2022 Thin prep Papanicolaou smear with manual screening 27 5-15 [facility] Urine blood detectionOrdered By: Dr. Voss on 07-26-2022 RBC Ql (U) 10 /ul Negative [facility] RBC Ql (U) 0-5 SEEN /hpf 0-5 [facility] Urine clarityOrdered By: Dr. Voss on 07-26-2022 Clarity (U) Clear Clear [facility] Urine color determinationOrd ered By: Dr. Voss on 07-26-2022 Color (U) Straw Yellow [facility] Urine glucose detectionOrder ed By: Dr. Voss on 07-26-2022 Glucose Ql (U) 1000 mg/dl Normal [facility] Urine leukocyte esterase det ection by dipstickOrdered By: Dr. Voss on 07-26-2022 Leukocyte esterase Test strip Ql (U) Negative Negative [facility] Urine pHOrdered By: Dr. Melissa ng on 07-26-2022 pH (U) 6.5 [pH] 5.0 - 8.0 [facility] Urine sediment bacteria coun t by microscopy (number/high power field)Ordered By: Dr. Voss on 07-26-2022 Bacteria LM.HPF (Urine sed) [#/Area] 0 /[HPF] None Seen [facility] Urine specific gravity measu rementOrdered By: Dr. Voss on 07-26-2022 Specific gravity (U) [Rel density] 1.015 1.002-1.030 [facility] Urobilinogen Auto test strip Ql (U)Ordered By: Dr. Voss on 07-26-2022 Urobilinogen Ql (U) Normal mg/dl Normal [facility] Whole blood hemoglobin A1c/t otal hemoglobin ratio (mass fraction)Ordered By: Dr. Ahumada on 07-26-2022 HbA1c (Bld) [Mass fraction] % 3.8-5.6 [facility] Comment on above: Normal < 5.7 % Predi abetic 5.7 - 6.4 % Diabetic >or= 6.5 % Please note range changes. RSV Ag EIAOrdered By: Dr. Malcom jackson on 05-03-2022 RSV Ag Immune stain Ql (Tiss) [facility] SARS-CoV-2 (COVID-19) Ag IA. rapid Ql (Resp)Ordered By: Dr. Gleason on 05-03-2022 SARS-CoV-2 Antigen (Rapid) SARS-CoV-2 (COVID 19) [facility] Basophil percentageOrdered B y: Dr. Mcclendon on 04-11-2022 Bilirubin [Mass/Vol] 0.50 mg/dL 0.20-1.00 [facility] Comment on above: For patients on eltr ombopag therapy, use of Dimension [place] TBIL is not recommended. Chloride [Moles/Vol] 103 mmol/L 98-107 [facility] Glucose [Mass/Vol] 139 mg/dL 74-106 [facility] Comment on above: Fasting Glucose resu lt greater than or equal to 126 mg/dL suggests DIABETES MELLITUS per A.D.A. criteria. Potassium [Moles/Vol] 3.8 mmol/L 3.5-5.1 [facility] Protein [Mass/Vol] 7.7 g/dL 6.4-8.2 [facility] Sodium [Moles/Vol] 139 mmol/L 136-145 [facility] Laboratory - Chemistry and C hemistry - challengeOrdered By: Dr. Mcclendon on 04-11-2022 ALP [Catalytic activity/Vol] 88 U/L 45-117 [facility] ALT [Catalytic activity/Vol] 14 U/L 13-56 [facility] CO2 [Moles/Vol] 31.0 mmol/L 21.0-32.0 [facility] Globulin (S) [Mass/Vol] 3.5 g/dL 2.2-4.2 [facility] Urea nitrogen/Creatinine [Mass ratio] 17.6 mg/mg 10-20 [facility] No Panel InformationOrdered By: Dr. Mcclendon on 04-11-2022 Estimated GFR (MDRD) Amer 113 mL/min >60 [facility] Comment on above: GFR Calc Estimated GFR (MDRD) Non-Af Amer 94 mL/min >60 [facility] Comment on above: Non- GFR Calc Serum or plasma albumin jn urement (mass/volume)Ordered By: Dr. Mcclendon on 04-11-2022 Albumin [Mass/Vol] 4.2 g/dL 3.2-5.0 [facility] Serum or plasma albumin/glob ulin mass ratioOrdered By: Dr. Mcclendon on 04-11-2022 Albumin/Globulin [Mass ratio] 1.2 {ratio} 0.9-2.4 [facility] Serum or plasma calcium jn urement (mass/volume)Ordered By: Dr. Mcclendon on 04-11-2022 Calcium [Mass/Vol] 9.7 mg/dL 8.5-10.1 [facility] Serum or plasma creatinine m easurement (mass/volume)Ordered By: Dr. Mcclendon on 04-11-2022 Creatinine [Mass/Vol] 0.68 mg/dL 0.55-1.02 [facility] Comment on above: The validity of the calculated GFR & GFRAA in patients over 70 years has not been determined. Clinical correlation is essential. Serum or plasma urea nitroge n measurement (mass/volume)Ordered By: Dr. Mcclendon on 04-11-2022 Urea nitrogen [Mass/Vol] 12 mg/dL 7-18 [facility] Thin prep Papanicolaou smear with manual screeningOrdered By: Dr. Mcclendon on 04-11-2022 Thin prep Papanicolaou smear with manual screening 8 U/L 15-37 [facility] Thin prep Papanicolaou smear with manual screening 5 5-15 [facility] Absolute lymphocyte counton 03-06-2022 Lymphocytes Auto (Unsp spec) [#/Vol] 1.89 10*3/uL 0.83-4.51 [facility] Work Phone: Basophil percentageon 2021 Basophil percentage 4.0 mg/dL 2.5-4.9 [facility] Work Phone: Chloride [Moles/Vol] 111 mmol/L 98-107 [facility] Work Phone: Glucose [Mass/Vol] 233 mg/dL 74-106 [facility] Work Phone: Comment on above: Glucose result great er than or equal to 200 mg/dLsuggests DIABETES MELLITUS per A.D.A. criteria. Potassium [Moles/Vol] 4.3 mmol/L 3.5-5.1 [facility] Work Phone: Sodium [Moles/Vol] 141 mmol/L 136-145 [facility] Work Phone: Basophils/100 WBC (Bld) 0.5 % 0-1 [facility] Work Phone: Bilirubin [Mass/Vol] 0.30 mg/dL 0.20-1.00 [facility] Work Phone: Comment on above: For patients on eltr ombopag therapy, use of Dimension [place] TBIL is not recommended. Eosinophils/100 WBC (Bld) 1.2 % 0-5 [facility] Work Phone: Neutrophils (Bld) [#/Vol] 1.6 10*3/uL 2.0-7.7 [facility] Work Phone: Neutrophils/100 WBC (Bld) 37.9 % 47-70 [facility] Work Phone: Protein [Mass/Vol] 5.6 g/dL 6.4-8.2 [facility] Work Phone: WBC (Bld) [#/Vol] 4.1 10*3/uL 4.4-11.0 [facility] Work Phone: [phone] Blood erythrocytes count (nu mber/volume)on 03-06-2022 RBC (Bld) [#/Vol] 3.50 10*6/uL 4.2-5.4 [facility] Work Phone: [phone] Blood hemoglobin measurement (mass/volume)on 03-06-2022 Hemoglobin (Bld) [Mass/Vol] 10.8 g/dL 12.0-15.0 [facility] Work Phone: [phone] Blood lymphocytes/100 leukoc yteson 03-06-2022 Lymphocytes/100 WBC (Bld) 46.0 % 19-41 [facility] Work Phone: [phone] Blood monocytes/100 leukocyt eson 03-06-2022 Monocytes/100 WBC (Bld) 13.9 % 0-10 [facility] Work Phone: Blood platelet mean volumeon 03-06-2022 Platelet mean volume (Bld) [Entitic vol] 11.0 fL 6.2-12.0 [facility] Work Phone: Determination of erythrocyte mean corpuscular volume (MCV)on 03-06-2022 MCV (RBC) [Entitic vol] 88.3 fL 81-99 [facility] Work Phone: [phone] Glucose Glucometer (BldC) [M ass/Vol]on 03-06-2022 Glucose [Mass/Vol] 184 mg/dL 74-106 [facility] Work Phone: Comment on above: MANAGEMENT OF PATIEN T CARE PER NURSING PROTOCOL Hematocrit Auto (Bld) [Volum e fraction]on 03-06-2022 Hematocrit (Bld) [Volume fraction] 30.9 % 37-47 [facility] Work Phone: Laboratory - Chemistry and C hemistry - challengeon 03-06-2022 CO2 [Moles/Vol] 25.0 mmol/L 21.0-32.0 [facility] Work Phone: Urea nitrogen/Creatinine [Mass ratio] 6.8 mg/mg 10-20 [facility] Work Phone: [phone] ALP [Catalytic activity/Vol] 71 U/L 45-117 [facility] Work Phone: [phone] ALT [Catalytic activity/Vol] 11 U/L 13-56 [facility] Work Phone: [phone] Globulin (S) [Mass/Vol] 2.9 g/dL 2.2-4.2 [facility] Work Phone: [phone] Magnesium [Mass/Vol] 2.5 mg/dL 1.6-2.6 [facility] Work Phone: [phone] Laboratory - Hematology and Cell countson 03-06-2022 Erythrocyte distribution width (RBC) [Entitic vol] 45.3 fL 35.1-43.9 [facility] Work Phone: [phone] Erythrocyte distribution width (RBC) [Ratio] 14.2 % 11.6-14.6 [facility] Work Phone: [phone] Immature granulocytes/100 WBC (Bld) 0.500 % 0.0-0.9 [facility] Work Phone: [phone] Comment on above: IG% - Immature Granu locytes (promyelocytes, myelocytes and metamyelocytes) > 1% indicates that a LEFT SHIFT is Present. MCH (RBC) [Entitic mass] 30.9 pg 27.0-32.0 [facility] Work Phone: [phone] Nucleated RBC/100 WBC (Bld) [Ratio] 0 % 0-5 [facility] Work Phone: [phone] MCHC Auto (RBC) [Mass/Vol]on 03-06-2022 MCHC (RBC) [Mass/Vol] 35.0 g/dL 32-36 [facility] Work Phone: [phone] Panel Informationon 03-06 Estimated Creatinine Clearance Calc 67.71 ml/min [facility] Work Phone: [phone] Estimated GFR (MDRD) Amer 103 mL/min >60 [facility] Work Phone: Comment on above: GFR Calc Estimated GFR (MDRD) Non-Af Amer 85 mL/min >60 [facility] Work Phone: Comment on above: Non- GFR Calc Platelets bldon 03-06-2022 Platelets (Bld) [#/Vol] 131 10*3/uL 150-450 [facility] Work Phone: Serum or plasma albumin jn urement (mass/volume)on 03-06-2022 Albumin [Mass/Vol] 2.7 g/dL 3.2-5.0 [facility] Work Phone: Serum or plasma albumin/glob ulin mass ratioon 03-06-2022 Albumin/Globulin [Mass ratio] 0.9 {ratio} 0.9-2.4 [facility] Work Phone: Serum or plasma calcium jn urement (mass/volume)on 03-06-2022 Calcium [Mass/Vol] 8.7 mg/dL 8.5-10.1 [facility] Work Phone: Serum or plasma creatinine m easurement (mass/volume)on 03-06-2022 Creatinine [Mass/Vol] 0.74 mg/dL 0.55-1.02 [facility] Work Phone: Comment on above: The validity of the calculated GFR & GFRAA in patients over 70 years has not been determined. Clinical correlation is essential. Serum or plasma urea nitroge n measurement (mass/volume)on 03-06-2022 Urea nitrogen [Mass/Vol] 5 mg/dL 7-18 [facility] Work Phone: Thin prep Papanicolaou smear with manual screeningon 03-06-2022 Thin prep Papanicolaou smear with manual screening 5 5-15 [facility] Work Phone: Thin prep Papanicolaou smear with manual screening 11 U/L 15-37 [facility] Work Phone: Assessment of wrist artery p atency prior to arterial punctureon 03-04-2022 Arterial patency Wrist artery --pre arterial puncture Positive [facility] Work Phone: Base excesson 03-04-2022 Base excess Calc (BldV) [Moles/Vol] -17 mmol/L -2-2 [facility] Work Phone: Basophil percentageon 2021 Basophil percentage 10.7 mmol/L 22-26 [facility] Work Phone: Basophils/100 WBC (Bld) 96 % 95-99 [facility] Work Phone: Blood platelet morphology de termination (nominal result)on 03-04-2022 Platelet morphology finding Nom (Bld) CLUMPED [facility] Work Phone: CO2 (BldA) [Partial pressure ]on 03-04-2022 CO2 (Bld) [Partial pressure] 24.5 mm[Hg] 35-45 [facility] Work Phone: Laboratory - Chemistry and C hemistry - challengeon 03-04-2022 Lipase [Catalytic activity/Vol] 497 U/L 73-393 [facility] Work Phone: No Panel Informationon 03-04 Blood Gas Oxygen Percent 21 [facility] Work Phone: Blood Gas Sample Site L Radial [facility] Work Phone: Blood Gas Specimen Type ART [facility] Work Phone: Blood Gas Total CO2 12 mmol/L [facility] Work Phone: Oxygen (BldA) [Partial press ure]on 03-04-2022 Oxygen (Bld) [Partial pressure] 89 mmHG 75-100 [facility] Work Phone: Whole blood hemoglobin A1c/t otal hemoglobin ratio (mass fraction)on 03-04-2022 HbA1c (Bld) [Mass fraction] 13.4 % 3.8-5.6 [facility] Work Phone: Comment on above: Normal < 5.7 % Predi abetic 5.7 - 6.4 % Diabetic >or= 6.5 % Please note range changes. pH measurementon 03-04-2022 pH (Unsp spec) 7.25 [pH] 7.35-7.45 [facility] Work Phone: Basophil percentageon 2021 Basophil percentage 0-5 SEEN /hpf 0-5 [facility] Work Phone: [phone] Lactate [Moles/Vol] 1.2 mmol/L 0.4-2.0 [facility] Work Phone: [phone] Bilirubin Test strip Ql (U)o n 03-03-2022 Bilirubin Ql (U) Negative Negative [facility] Work Phone: [phone] INR in Blood by Coagulation assayon 03-03-2022 INR Coag (Bld) [Relative time] 1.1 {INR} [facility] Work Phone: Ketones Test strip Ql (U)on 03-03-2022 Ketones Ql (U) 150 mg/dl Negative [facility] Work Phone: [phone] Comment on above: CRITICAL VALUE VERIF IED. CALLED TO BIJU RIOS RN (ER)03/03/222004 Blaine Villanueva.RESULTS READ BACK BY SAME . CRITICAL VALUE *H Laboratory - Coagulationon 0 03-03-2022 PT Coag (PPP) [Time] 13.4 s 11.7-14.9 [facility] Work Phone: Mucus LM Ql (Urine sed)on Mucus Ql (Urine sed) 0 SEEN /hpf [facility] Work Phone: Nitrite Test strip Ql (U)on 03-03-2022 Nitrite Ql (U) Negative Negative [facility] Work Phone: No Panel Informationon 03-03 Bld Gas Crit Called To/Read Back By Yes [facility] Work Phone: Blood Gas Notified Whom white [facility] Work Phone: [phone] Ethyl Alcohol Level < 3.0 mg/dL [facility] Work Phone: [phone] Comment on above: The serum:whole bloo d ethanol ratio is approximately 1.14and varies slightly with hematocrit. Medical Alcohol reference interval and critical value innon-tolerant individuals; 50 - 100 Impairment 100 Intoxication 100 - 250 Severe Poisoning 250 - 400 Deep/possible fatal coma Troponin I High Sensitivity 11 pg/mL 3.0-54.0 [facility] Work Phone: Comment on above: Please Note: New Jessica t Units and Gender Specific Reference Ranges. For more information see Policy Stat Procedure [place] High Sensitivity Troponin (TNIH) and attachments. Protein Test strip Ql (U)on 03-03-2022 Protein Ql (U) 30 mg/dl Negative [facility] Work Phone: [phone] Serum or plasma acetone jn urement (mass/volume)on 03-03-2022 Acetone [Mass/Vol] LARGE NEG [facility] Work Phone: [phone] Squamous epithelial cells de tection in urine sediment by light microscopyon 03-03-2022 Epithelial cells.squamous LM Ql (Urine sed) 0-5 SEEN /hpf 5-10 [facility] Work Phone: Urine blood detectionon 02-05 RBC Ql (U) 25 /ul Negative [facility] Work Phone: [phone] RBC Ql (U) 0-5 SEEN /hpf 0-5 [facility] Work Phone: Urine clarityon 03-03-2022 Clarity (U) Clear Clear [facility] Work Phone: Urine coarse granular cast d etectionon 03-03-2022 Coarse Granular Casts LM Ql (Urine sed) 5-10 SEEN /lpf 0-5 /lpf [facility] Work Phone: Urine color determinationon 03-03-2022 Color (U) Straw Yellow [facility] Work Phone: [phone] Urine glucose detectionon Glucose Ql (U) 1000 mg/dl Normal [facility] Work Phone: [phone] Urine leukocyte esterase det ection by dipstickon 03-03-2022 Leukocyte esterase Test strip Ql (U) 100 /ul Negative [facility] Work Phone: [phone] Urine pHon 03-03-2022 pH (U) 5.0 [pH] 5.0 - 8.0 [facility] Work Phone: Urine sediment bacteria coun t by microscopy (number/high power field)on 03-03-2022 Bacteria LM.HPF (Urine sed) [#/Area] 1 /[HPF] None Seen [facility] Work Phone: Urine sediment yeast count b y microscopy (number/high powered field)on 03-03-2022 Yeast LM.HPF (Urine sed) [#/Area] RARE /hpf None Seen [facility] Work Phone: Urine specific gravity measu rementon 03-03-2022 Specific gravity (U) [Rel density] 1.020 1.002-1.030 [facility] Work Phone: Urobilinogen Auto test strip Ql (U)on 03-03-2022 Urobilinogen Ql (U) Normal mg/dl Normal [facility] Work Phone: XR ELBOW MINIMUM 3 VIEWS [...] AM Sign Date: 07/22/2018 9:20:04 AM Normal [facility] ([place]) No Panel Information SARS-CoV-2 & FLU Antigen (Rapid) [facility] Work Phone: SARS-CoV-2 (COVID-19) Ag IA. rapid Ql (Resp) SARS-CoV-2 Antigen (Rapid) SARS-CoV-2 (COVID 19) [facility] Work Phone: Vital Signs Date Time Vital Sign Value Performing Clinician Faci lity 12-10-2024 04:29-0400 Body temperature 98.7 [degF] Dr. Milind Lamb MD Work Phone: [facility] 12-10-2024 04:29-0400 Diastolic blood pressure 65 mm[Hg] Dr. Milind Lamb MD Work Phone: [facility] 12-10-2024 04:29-0400 Heart rate 87 /min Dr. Milind Lamb MD Work Phone: [facility] 12-10-2024 04:29-0400 Respiratory rate 16 /min Dr. Milind Lamb MD Work Phone: [phone] [place] [address] 12-10-2024 04:29-0400 SaO2% (BldA) [Mass fraction] 100 % Dr. Milind Lamb MD Work Phone: [phone] [place] [address] 12-10-2024 04:29-0400 Systolic blood pressure 142 mm[Hg] Dr. Milind Lamb MD Work Phone: [phone])761-475540 [place] [address] 12-10-2024 03:32-0400 Body mass index (BMI) [Ratio] 22.6 kg/m2 Dr. Milind Lamb MD Work Phone: [phone] [place] [address] 12-10-2024 03:32-0400 Body weight [address] Milind Lamb MD Work Phone: [phone])661-842340 [place] [address] 12-09-2024 15:49-0400 Body height 160.[address] Milind Lamb MD Work Phone: [phone] [place] [address] 12-09-2024 00:00-0400 Body temperature 98.9 [degF] Dr. Milind Lamb MD Work Phone: [facility] 12-09-2024 00:00-0400 Diastolic blood pressure 52 mm[Hg] Dr. Milind Lamb MD Work Phone: [phone])966-117340 [place] [address] 12-09-2024 00:00-0400 Heart rate 92 /min Dr. Milind Lamb MD Work Phone: [phone] [place] [address] 12-09-2024 00:00-0400 Respiratory rate 21 /min Dr. Milind Lamb MD Work Phone: [phone] [place] [address] 12-09-2024 00:00-0400 SaO2% (BldA) [Mass fraction] 99 % Dr. Milind Lamb MD Work Phone: [phone] [place] [address] 12-09-2024 00:00-0400 Systolic blood pressure 109 mm[Hg] Dr. Milind Lamb MD Work Phone: [phone])472-253940 [place] [address] 12-08-2024 19:55-0400 Body height 160.[address] Milind Lamb MD Work Phone: [phone])094-170640 [place] [address] 12-08-2024 19:55-0400 Body mass index (BMI) [Ratio] 23.6 kg/m2 Dr. Milind Lamb MD Work Phone: [phone])570-128940 [place] [address] 12-08-2024 19:55-0400 Body weight 60.[address] Milind Lamb MD Work Phone: [phone])138-976240 [place] [address] 07-29-2023 16:28-0500 Diastolic blood pressure 80 mm[Hg] Dr. Milind Lamb Work Phone: [phone])534-298840 [place] [address] 07-29-2023 16:28-0500 Heart rate 99 /min Dr. Milind Lamb Work Phone: [phone] [place] [address] 07-29-2023 16:28-0500 Respiratory rate 23 /min Dr. Milind Lamb Work Phone: [phone])357-504440 [place] [address] 07-29-2023 16:28-0500 SaO2% (BldA) [Mass fraction] 98 % Dr. Milind Lamb Work Phone: [phone] [place] [address] 07-29-2023 16:28-0500 Systolic blood pressure 150 mm[Hg] Dr. Milind Lamb Work Phone: [phone])168-195440 [place] [address] 07-29-2023 12:34-0500 Body height 160.[address] Milind Lamb Work Phone: [phone] [place] [address] 07-29-2023 12:34-0500 Body mass index (BMI) [Ratio] 23.7 kg/m2 Dr. Milind Lamb Work Phone: [phone] [place] [address] 07-29-2023 12:34-0500 Body temperature 95.9 [degF] Dr. Milind Lamb Work Phone: [facility] 07-29-2023 12:34-0500 Body weight 60.[address] Milind Lamb Work Phone: [facility] 07-06-2023 12:39-0500 Body temperature 98.2 [degF] Dr. Milind Lamb Work Phone: [facility] 07-06-2023 12:39-0500 Diastolic blood pressure 71 mm[Hg] Dr. Milind Lamb Work Phone: [facility] 07-06-2023 12:39-0500 Heart rate 98 /min Dr. Milind Lamb Work Phone: [facility] 07-06-2023 12:39-0500 Respiratory rate 18 /min Dr. Milind Lamb Work Phone: [facility] 07-06-2023 12:39-0500 SaO2% (BldA) [Mass fraction] 100 % Dr. Milind Lamb Work Phone: [facility] 07-06-2023 12:39-0500 Systolic blood pressure 141 mm[Hg] Dr. Milind Lamb Work Phone: [facility] 07-05-2023 12:30-0500 Body weight 56.[address] Milind Lamb Work Phone: [facility] 07-05-2023 06:00-0500 Body mass index (BMI) [Ratio] 21.9 kg/m2 Dr. Milind Lamb Work Phone: [facility] 07-02-2023 21:27-0500 Body temperature 98.3 [degF] [facility] 07-02-2023 21:27-0500 Diastolic blood pressure 81 mm[Hg] [facility] 07-02-2023 21:27-0500 Heart rate 124 /min [facility] 07-02-2023 21:27-0500 Respiratory rate 26 /min [facility] 07-02-2023 21:27-0500 SaO2% (BldA) [Mass fraction] 100 % [facility] 07-02-2023 21:27-0500 Systolic blood pressure 176 mm[Hg] [facility] 07-02-2023 20:50-0500 Body mass index (BMI) [Ratio] 21.4 kg/m2 [facility] 07-02-2023 20:50-0500 Body weight 54.88 kg [facility] 07-02-2023 18:19-0500 Body height 160.02 cm [facility] 07-02-2023 09:02-0500 Diastolic blood pressure 87 mm[Hg] [facility] 07-02-2023 09:02-0500 Heart rate 110 /min [facility] 07-02-2023 09:02-0500 Respiratory rate 16 /min [facility] 07-02-2023 09:02-0500 SaO2% (BldA) [Mass fraction] 98 % [facility] 07-02-2023 09:02-0500 Systolic blood pressure 149 mm[Hg] [facility] 07-02-2023 07:39-0500 Body height 160.02 cm [facility] 07-02-2023 07:39-0500 Body mass index (BMI) [Ratio] 21.4 kg/m2 [facility] 07-02-2023 07:39-0500 Body temperature 96.8 [degF] [facility] 07-02-2023 07:39-0500 Body weight 55.06 kg [facility] 06-30-2023 23:17-0500 Body height 160.02 cm [facility] 06-30-2023 23:17-0500 Body mass index (BMI) [Ratio] 21.9 kg/m2 [facility] 06-30-2023 23:17-0500 Body temperature 97.2 [degF] [facility] 06-30-2023 23:17-0500 Body weight 56.01 kg [facility] 06-30-2023 23:17-0500 Diastolic blood pressure 87 mm[Hg] [facility] 06-30-2023 23:17-0500 Heart rate 105 /min [facility] 06-30-2023 23:17-0500 Respiratory rate 18 /min [facility] 06-30-2023 23:17-0500 SaO2% (BldA) [Mass fraction] 100 % [facility] 06-30-2023 23:17-0500 Systolic blood pressure 169 mm[Hg] [facility] 07-28-2022 14:10-0500 Body temperature 98 [degF] Dr. Milind Lamb Work Phone: [facility] 07-28-2022 14:10-0500 Diastolic blood pressure 72 mm[Hg] Dr. Milind Lamb Work Phone: [phone] [place] [address] 07-28-2022 14:10-0500 Heart rate 86 /min Dr. Milind Lamb Work Phone: [phone])[phone] [place] [address] 07-28-2022 14:10-0500 Respiratory rate 18 /min Dr. Milind Lamb Work Phone: [facility] 07-28-2022 14:10-0500 SaO2% (BldA) [Mass fraction] 98 % Dr. Milind Lamb Work Phone: [facility] 07-28-2022 14:10-0500 Systolic blood pressure 124 mm[Hg] Dr. Milind Lamb Work Phone: [facility] 07-28-2022 05:51-0500 Body weight 49.[address] Milind Lamb Work Phone: [facility] 07-26-2022 15:25-0500 Body height 160.[address] Milind Lamb Work Phone: [facility] 07-26-2022 13:53-0500 Body mass index (BMI) [Ratio] 19.3 kg/m2 Dr. Milind Lamb Work Phone: [facility] 07-26-2022 13:00-0500 Body temperature 97.4 [degF] Dr. Milind Lamb Work Phone: [facility] 07-26-2022 13:00-0500 Diastolic blood pressure 73 mm[Hg] Dr. Milind Lamb Work Phone: [facility] 07-26-2022 13:00-0500 Heart rate 107 /min Dr. Milind Lamb Work Phone: [facility] 07-26-2022 13:00-0500 Respiratory rate 27 /min Dr. Milind Lamb Work Phone: [facility] 07-26-2022 13:00-0500 SaO2% (BldA) [Mass fraction] 99 % Dr. Milind Lamb Work Phone: [facility] 07-26-2022 13:00-0500 Systolic blood pressure 138 mm[Hg] Dr. Milind Lamb Work Phone: [facility] 07-26-2022 11:12-0500 Body height 160.[address] Milind Lamb Work Phone: [phone] [place] [address] 07-26-2022 11:12-0500 Body mass index (BMI) [Ratio] 21.2 kg/m2 Dr. Milind Lamb Work Phone: [facility] 07-26-2022 11:12-0500 Body weight 54.[address] Milind Lamb Work Phone: [facility] 05-03-2022 06:11-0400 Body height 160.[address] Milind Lamb Work Phone: [facility] Work Phone: 05-03-2022 06:11-0400 Body mass index (BMI) [Ratio] 21.4 kg/m2 Dr. Milind Lamb Work Phone: [facility] 05-03-2022 06:11-0400 Body temperature 98 [degF] Dr. Milind Lamb Work Phone: [facility] 05-03-2022 06:11-0400 Body weight 54.[address] Milind Lamb Work Phone: [facility] 05-03-2022 06:11-0400 Diastolic blood pressure 84 mm[Hg] Dr. Milind Lamb Work Phone: [facility] 05-03-2022 06:11-0400 Heart rate 102 /min Dr. Milind Lamb Work Phone: [facility] 05-03-2022 06:11-0400 Respiratory rate 16 /min Dr. Milind Lamb Work Phone: [facility] 05-03-2022 06:11-0400 SaO2% (BldA) [Mass fraction] 100 % Dr. Milind Lamb Work Phone: [facility] 05-03-2022 06:11-0400 Systolic blood pressure 157 mm[Hg] Dr. Milind Lamb Work Phone: [facility] 04-11-2022 08:16-0400 Body height 160.[address] Milind Lamb Work Phone: [facility] Work Phone: 04-11-2022 08:16-0400 Body mass index (BMI) [Ratio] 20.9 kg/m2 Dr. Milind Lamb Work Phone: [facility] 04-11-2022 08:16-0400 Body temperature 96.5 [degF] Dr. Milind Lamb Work Phone: [facility] 04-11-2022 08:16-0400 Body weight 53.[address] Milind Lamb Work Phone: [facility] 04-11-2022 08:16-0400 Diastolic blood pressure 81 mm[Hg] Dr. Milind Lamb Work Phone: [facility] 04-11-2022 08:16-0400 Heart rate 80 /min Dr. Milind Lamb Work Phone: [facility] 04-11-2022 08:16-0400 Respiratory rate 18 /min Dr. Milind Lamb Work Phone: [facility] 04-11-2022 08:16-0400 SaO2% (BldA) [Mass fraction] 97 % Dr. Milind Lamb Work Phone: [facility] 04-11-2022 08:16-0400 Systolic blood pressure 140 mm[Hg] Dr. Milind Lamb Work Phone: [facility] 03-06-2022 14:50-0400 Body temperature 97.9 [degF] Dr. Milind Lamb Work Phone: [facility] Work Phone: 03-06-2022 14:50-0400 Diastolic blood pressure 88 mm[Hg] Dr. Milind Lamb Work Phone: [facility] Work Phone: 03-06-2022 14:50-0400 Heart rate 91 /min Dr. Milind Lamb Work Phone: [facility] Work Phone: 03-06-2022 14:50-0400 Respiratory rate 16 /min Dr. Milind Lamb Work Phone: [facility] Work Phone: 03-06-2022 14:50-0400 SaO2% (BldA) [Mass fraction] 98 % Dr. Milind Lamb Work Phone: [facility] Work Phone: 03-06-2022 14:50-0400 Systolic blood pressure 131 mm[Hg] Dr. Milind Lamb Work Phone: [facility] Work Phone: 03-06-2022 09:27-0400 Body height 160.[address] Milind Lamb Work Phone: [facility] Work Phone: 03-06-2022 09:27-0400 Body weight 57.[address] Milind Lamb Work Phone: [facility] Work Phone: 03-03-2022 20:17-0400 Body mass index (BMI) [Ratio] 20.8 kg/m2 Dr. 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 Milind Lamb MD Work Phone: -Laboratory Phy Office 3rd Flr Start: 01-19-2025 End: 01-19-[address] Angella Boggs DO -Laboratory Phy Office 3rd Flr Start: 01-18-2025 End: 01-22-2025 ambulatory YOLI MAST SALES AND SERVICE OFFICER-HYDROGEN CELL TENDER Facility:[facility] Start: 01-18-2025 End: 01-22-2025 Outreach Lab YOLI MAST SALES AND SERVICE OFFICER-HYDROGEN CELL TENDER [facility] Start: 12-10-2024 Non-patient / Non-visit Dr. Ciro perrin MD -[facility] Work Phone: Start: 12-09-2024 Non-patient / Non-visit Dr. Shira Ibarra MD -[facility] Work Phone: Start: 12-09-2024 ambulatory Zelda Ibarra Facility :[facility] Start: 12-09-2024 End: 12-10-2024 Evaluation and management of inpatient Dr. Zelda Ibarra MD -Intensive Care Unit Work Phone: Start: 10-18-2024 End: 10-18-[address] Milind Lamb MD Work Phone: [facility] Work Phone: Start: 10-18-2024 End: 10-18-[address] Milind Lamb MD -Laboratory, [facility] Start: 10-18-2024 End: 10-18-2024 ambulatory Milind Lamb Facility:[facility] Start: 07-20-2024 End: 07-20-[address] Milind Lamb MD -Laboratory, [facility] Start: 07-20-2024 End: 07-20-2024 ambulatory Milind Lamb Facility:[facility] Start: 07-16-2024 End: 07-16-2024 Patient encounter procedure Nasir LIRA [facility] Work Phone: Start: 07-16-2024 End: 07-16-2024 ambulatory Nasir LIRA Facility:[facility] Start: 05-02-2024 ambulatory Ciro Simmons ty:[facility] Start: 05-02-2024 End: 05-04-2024 Evaluation and management of inpatient Sanjana Quigley Facility:[facility] Start: 03-01-2024 ambulatory Harry Blevins ility:[facility] Start: 03-01-2024 End: 03-05-2024 Evaluation and management of inpatient Milind Lamb Facility:[facility] Start: 07-29-2023 End: 07-29-2023 Emergency department patient visit Dr. Milind Lamb Work Phone: [facility]Emergency Department Work Phone: Start: 07-18-2023 End: 08-11-[address] Milind Lamb Work Phone: [facility] Work Phone: Start: 07-18-2023 End: 08-11-[address] Milind Lamb Work Phone: [facility] Work Phone: Start: 07-18-[address] Milind Lamb Work Phone: [facility] Work Phone: Start: 07-06-2023 Non-patient / Non-visit Dr. Pankaj Lamb Work Phone: [facility] Work Phone: Start: 07-05-2023 Non-patient / Non-visit Dr. Pankaj Lamb Work Phone: [facility] Work Phone: Start: 07-04-2023 Non-patient / Non-visit Dr. Pankaj Lamb Work Phone: [facility] Work Phone: Start: 07-03-2023 Non-patient / Non-visit Dr. Pankaj Lamb Work Phone: [facility] Work Phone: Start: 07-02-2023 End: 07-06-2023 Evaluation and management of inpatient [facility]Int[facility] Work Phone: Start: 07-02-2023 Non-patient / Non-visit Dr. Pankaj Lamb Work Phone: [facility] Work Phone: Start: 07-02-2023 End: 07-02-2023 Emergency department patient visit [facility] Work Phone: Start: 06-30-2023 End: 07-01-2023 Emergency department patient visit [facility] Work Phone: Start: 05-21-2023 End: 05-21-2023 ambulatory [facility] Work Phone: Start: 05-21-2023 End: 05-21-2023 Patient encounter procedure [facility] Start: 07-28-2022 Non-patient / Non-visit Dr. Pankaj Lamb Work Phone: [facility] Start: 07-27-2022 Non-patient / Non-visit Dr. Pankaj Lamb Work Phone: [facility] Start: 07-26-2022 Non-patient / Non-visit Dr. Pankaj Lamb Work Phone: [facility] Start: 07-26-2022 End: 07-28-2022 Evaluation and management of inpatient Dr. Milind Lamb Work Phone: [facility]Intensive Care Unit Start: 05-03-2022 End: 05-03-2022 Emergency department patient visit Dr. Milind Lamb Work Phone: [facility]Emergency [facility] Start: 04-11-2022 End: 04-11-[address] Milind Lamb Work Phone: [facility] Work Phone: Start: 04-11-2022 End: 04-11-[address] Milind Lamb Work Phone: [facility] Start: 03-08-2022 End: 03-08-[address] Milind Lamb Work Phone: [facility] Work Phone: Start: 03-08-2022 End: 03-08-[address] Milind Lamb Work Phone: [facility] Start: 03-08-[address] Milind Lamb Work Phone: [facility] Start: 03-06-2022 Non-patient / Non-visit Dr. Pankaj Lamb Work Phone: [facility] Start: 03-06-2022 Non-patient / Non-visit Dr. Pankaj Lamb Work Phone: [facility] Start: 03-05-2022 Non-patient / Non-visit Dr. Pankaj Lamb Work Phone: [facility] Start: 03-05-2022 Non-patient / Non-visit Dr. Pankaj Lamb Work Phone: [facility] Start: 03-04-2022 Non-patient / Non-visit Dr. Pankaj Lamb Work Phone: [facility] Start: 03-03-2022 End: 03-06-2022 Evaluation and management of inpatient Dr. Milind Lamb Work Phone: [facility]Intensive Care [facility] Start: 07-22-2018 End: 07-23-2018 Patient encounter procedure [facility] ALVES Facility:[facility] Procedures Date Procedure Procedure Detail Performing Clinician Start: 01-19-2025 Urine microalbumin/creatinine ratio measurement Dr. Milind Lamb MD Work Phone: Start: 12-10-[address] Milind Lamb MD Work Phone: Start: 12-10-2024 Serum inorganic phos phate measurement Dr. Milind Lamb MD Work Phone: Start: 12-08-2024 Urnls dip stick/tabl et reagent auto microscopy Dr. Milind Lamb MD Work Phone: Start: 12-08-2024 Computed tomography of abdomen and pelvis with intravenous contrast Dr. Milind Lamb MD Work Phone: Start: 12-08-[address] Milind Lamb MD Work Phone: Start: 12-08-2024 Serum inorganic phos phate measurement Dr. Milind Lamb MD Work Phone: Start: 10-18-2024 Urine microalbumin/creatinine ratio measurement Dr. Milind Lamb MD Work Phone: Comment on above: Previous reported re sult: 203.0 mg/g CREEdited by: BRYCE on 12/23/24:1237 AMENDED REPORT 12/23/24 1237 MALB:CREAT previously reported as: 203.0 mg/g CRE Start: 07-02-[address] Milind Lamb [...] Treatment Date Care Activity Detail Author Start: 2037 RSV Vaccine (1 - 1-d ose 75+ series) RSV Vaccine (1 - 1-dose 75+ series) [facility] Start: 03-24-2025 End: 03-24-2025 Patient encounter procedure 03/24/2025 8:15 AM EDT Office Visit Urology [address] [id number] Meredith Felipe MD [address] [place] [address] kidney mass- found at [facility] 12/10 Urology Comment on above: kidney mass- found a t [facility] 12/10 Start: 03-07-2025 Influenza vaccination Influenza Vacc ine (#1) [facility] Start: 02-24-2025 End: 05-26-2025 Alkaline phosphatase [Enzymatic activity/volume] in Serum or Plasma ALKALINE PHOSPHATASE Lab Routine Neoplasm of uncertain behavior of left kidney Expected: 02/24/2025, Expires: 05/26/2025 [facility] Work Phone: Comment on above: Expected: 02/24/2025 , Expires: 05/26/2025 Start: 02-24-2025 End: 05-26-2025 Basic metabolic 2000 panel - Serum or Plasma BASIC METABOLIC PANEL Lab Routine Neoplasm of uncertain behavior of left kidney Expected: 02/24/2025, Expires: 05/26/2025 [facility] Comment on above: Expected: 02/24/2025 , Expires: 05/26/2025 Start: 02-24-2025 End: 05-26-2025 Gamma glutamyl transferase [Enzymatic activity/volume] in Serum or Plasma GGT Lab Routine Neoplasm of uncertain behavior of left kidney Expected: 02/24/2025, Expires: 05/26/2025 [facility] Comment on above: Expected: 02/24/2025 , Expires: 05/26/2025 Start: 12-10-2024 [facility] Start: 12-10-2024 Patient discharge [facility] Start: 12-09-2024 End: 12-09-2024 [facility] Start: 12-09-2024 Care regimes management [facility] Start: 12-09-2024 Notification of physician [facility] Start: 12-09-2024 Assessment of risk o f venous thromboembolism [facility] Start: 12-09-2024 End: 12-09-2024 Following clinical pathway protocol [facility] Start: 12-09-2024 Incentive spirometry [facility] Start: 12-09-2024 Inhalation therapy procedure [facility] Start: 12-09-2024 Insertion of cathete r into peripheral vein [facility] Start: 12-09-2024 Introduction of urin cristy catheter [facility] Start: 12-09-2024 Lab findings surveillance [facility] Start: 12-09-2024 Measuring intake and output [facility] Start: 12-09-2024 Notification of physician [facility] Start: 12-09-2024 Oxygen therapy [facility] Start: 12-09-2024 Patient education [facility] Start: 12-09-2024 Patient referral to dietitian [facility] Start: 12-09-2024 Providing care accor ding to standard [facility] Start: 12-09-2024 Provision of activit y privileges [facility] Start: 12-09-2024 Referral to service [facility] Start: 12-09-2024 Vital signs measurements [facility] Start: 12-09-2024 [facility] Start: 12-09-2024 Verification routine [facility] Start: 12-09-2024 Admission procedure [facility] Start: 12-09-2024 Hospital admission, emergency, from emergency room, medical nature [facility] Start: 12-09-2024 Consultation [facility] Start: 12-08-2024 [facility] Start: 07-29-2023 [facility] Start: 07-06-2023 Patient discharge [facility] Start: 07-03-2023 Care regimes management [facility] Start: 07-03-2023 Notification of physician [facility] Start: 07-03-2023 [facility] Start: 07-03-2023 [facility] Start: 07-03-2023 End: 07-03-2023 Blood chemistry [facility] Start: 07-03-2023 Complete blood count [facility] Start: 07-02-2023 Blood chemistry [facility] Start: 07-02-2023 Ambulation without limitation [facility] Start: 07-02-2023 Assessment of risk o f venous thromboembolism [facility] Start: 07-02-2023 Continuous pulse oximetry [facility] Start: 07-02-2023 End: 07-02-2023 Following clinical pathway protocol [facility] Start: 07-02-2023 Incentive spirometry [facility] Start: 07-02-2023 Insertion of cathete r into peripheral vein [facility] Start: 07-02-2023 Lab findings surveillance [facility] Start: 07-02-2023 Measuring intake and output [facility] Start: 07-02-2023 Notification of physician [facility] Start: 07-02-2023 Oxygen therapy [facility] Start: 07-02-2023 Patient education [facility] Start: 07-02-2023 Patient referral to dietitian [facility] Start: 07-02-2023 Providing care accor ding to standard [facility] Start: 07-02-2023 Referral to occupati onal therapist [facility] Start: 07-02-2023 Referral to service [facility] Start: 07-02-2023 Vital signs measurements [facility] Start: 07-02-2023 [facility] Start: 07-02-2023 Verification routine [facility] Start: 07-02-2023 Admission procedure [facility] Start: 07-02-2023 End: 07-02-2023 Blood chemistry [facility] Start: 07-02-2023 [facility] Start: 07-02-2023 Bacteria identified in Urine by Culture Urine Culture [facility] Start: 07-02-2023 [facility] Start: 07-01-2023 [facility] Start: 07-28-2022 Patient discharge [facility] Start: 07-27-2022 Care regimes management [facility] Start: 07-27-2022 Notification of physician [facility] Start: 07-27-2022 [facility] Start: 07-26-2022 Assessment of risk o f venous thromboembolism [facility] Start: 07-26-2022 End: 07-26-2022 Following clinical pathway protocol [facility] Start: 07-26-2022 Insertion of cathete r into peripheral vein [facility] Start: 07-26-2022 Lab findings surveillance [facility] Start: 07-26-2022 Measuring intake and output [facility] Start: 07-26-2022 Notification of physician [facility] Start: 07-26-2022 Patient education [facility] Start: 07-26-2022 Patient referral to dietitian [facility] Start: 07-26-2022 Providing care accor ding to standard [facility] Start: 07-26-2022 Vital signs measurements [facility] Start: 07-26-2022 End: 07-26-2022 [facility] Start: 07-26-2022 Verification [facility] Start: 07-26-2022 Admission procedure [facility] Start: 07-26-2022 Blood chemistry [facility] Start: 07-26-2022 [facility] Start: 07-26-2022 Patient referral to dietitian [facility] Start: 05-03-2022 [facility] Start: 03-06-2022 Patient discharge [facility] Work Phone: Start: 03-05-2022 Referral to occupati onal therapist [facility] Work Phone: Start: 03-05-2022 Referral to service [facility] Work Phone: Start: 03-04-2022 Care regimes management [facility] Work Phone: Start: 03-04-2022 Notification of physician [facility] Work Phone: Start: 03-04-2022 [facility] Work Phone: Start: 03-04-2022 Consultation [facility] Work Phone: Start: 03-03-2022 End: 03-04-2022 [facility] Work Phone: Start: 03-03-2022 Application of intermittent pneumatic compression device [facility] Work Phone: Start: 03-03-2022 Aspiration precautions [facility] Work Phone: Start: 03-03-2022 Assessment of risk o f venous thromboembolism [facility] Work Phone: Start: 03-03-2022 Continuous pulse oximetry [facility] Work Phone: Start: 03-03-2022 Elevation of head of bed [facility] Work Phone: Start: 03-03-2022 Fall prevention [facility] Work Phone: Start: 03-03-2022 End: 03-03-2022 Following clinical pathway protocol [facility] Work Phone: Start: 03-03-2022 Incentive spirometry [facility] Work Phone: Start: 03-03-2022 Inhalation therapy procedure [facility] Work Phone: Start: 03-03-2022 Insertion of cathete r into peripheral vein [facility] Work Phone: Start: 03-03-2022 Introduction of urin cristy catheter [facility] Work Phone: Start: 03-03-2022 Lab findings surveillance [facility] Work Phone: Start: 03-03-2022 Measuring intake and output [facility] Work Phone: Start: 03-03-2022 Notification of physician [facility] Work Phone: Start: 03-03-2022 Oxygen therapy [facility] Work Phone: Start: 03-03-2022 Patient education [facility] Work Phone: Start: 03-03-2022 Patient referral to dietitian [facility] Work Phone: Start: 03-03-2022 Providing care accor ding to standard [facility] Work Phone: Start: 03-03-2022 Provision of activit y privileges [facility] Work Phone: Start: 03-03-2022 Referral to service [facility] Work Phone: Start: 03-03-2022 Vital signs measurements [facility] Work Phone: Start: 03-03-2022 Admission procedure [facility] Work Phone: Start: 03-03-2022 [facility] Work Phone: Start: 2012 Pneumococcal Vaccine : 50+ (1 of 1 - PCV) Pneumococcal Vaccine: 50+ (1 of 1 - PCV) [facility] Start: 2012 Shingrix Vaccine (1 of 2) Henry grix Vaccine (1 of 2) [facility] Start: 2007 Diabetes Screening Diabetes Screenin g [facility] Start: 2007 Lipid panel Lipid Screening [facility] Start: 2007 Screening for malign ant neoplasm of colon [facility] Start: 2002 Screening for malign ant neoplasm of breast Mammogram Screening [facility] Start: 1983 Screening for malign ant neoplasm of cervix Cervical Cancer Screening [facility] Start: 1981 Urine microalbumin profile DTaP,Tdap,Td Vaccine (1 - Tdap) [facility] Start: 1980 Anxiety Screening Anxiety Screening [facility] Start: 1980 Depression Screening Depression Scre ening [facility] Start: 1980 Hepatitis C screening Hepatitis C Co ankur [facility] Start: 1980 HIV screening HIV Screening [facility] Anion gap measurement [facility] Anion gap measurement [facility] Anion gap measurement [facility] Anion gap measurement [facility] Bilirubin measuremen t, urine [facility] BUN/Creatinine ratio [facility] BUN/Creatinine ratio [facility] BUN/Creatinine ratio [facility] BUN/Creatinine ratio [facility] Calcium [Mass/volume ] in Serum or Plasma [facility] Calcium [Mass/volume ] in Serum or Plasma [facility] Calcium [Mass/volume ] in Serum or Plasma [facility] Calcium [Mass/volume ] in Serum or Plasma [facility] Carbon dioxide, tota l [Moles/volume] in Serum or Plasma [facility] Carbon dioxide, tota l [Moles/volume] in Serum or Plasma [facility] Carbon dioxide, tota l [Moles/volume] in Serum or Plasma [facility] Carbon dioxide, tota l [Moles/volume] in Serum or Plasma [facility] Chloride [Moles/volu me] in Serum or Plasma [facility] Chloride [Moles/volu me] in Serum or Plasma [facility] Chloride [Moles/volu me] in Serum or Plasma [facility] Chloride [Moles/volu me] in Serum or Plasma [facility] Creatinine [Moles/vo lume] in Serum or Plasma [facility] Creatinine [Moles/vo lume] in Serum or Plasma [facility] Creatinine [Moles/vo lume] in Serum or Plasma [facility] Creatinine [Moles/vo lume] in Serum or Plasma [facility] Glucose [Mass/volume ] in Serum or Plasma [facility] Glucose [Mass/volume ] in Serum or Plasma [facility] [facility] Glucose [Mass/volume ] in Serum or Plasma [facility] Glucose [Mass/volume ] in Serum or Plasma [facility] Hematocrit [Volume Fraction] of Blood [facility] Hemoglobin [Mass/vol ume] in Blood [facility] Hemoglobin [Presence ] in Urine [facility] Hemoglobin A1c/Hemoglobin.total in Blood [facility] Leukocytes [#/volume ] in Blood [facility] Mean corpuscular hemoglobin concentration determination [facility] Mean corpuscular hemoglobin determination [facility] Measurement of keton es in urine using dipstick [facility] Measurement of renal function [facility] Measurement of renal function [facility] Measurement of renal function [facility] Measurement of renal function [facility] Microscopic urinalysis [facility] Patient Education [facility] Work Phone: Patient referral [facility] Work Phone: pH of Urine [facility] Platelets [#/volume] in Blood [facility] Potassium [Moles/vol ume] in Serum or Plasma [facility] Potassium [Moles/vol ume] in Serum or Plasma [facility] Potassium [Moles/vol ume] in Serum or Plasma [facility] Potassium [Moles/vol ume] in Serum or Plasma [facility] Red blood cell count [facility] Red cell distributio n width determination [facility] Sodium [Moles/volume ] in Serum or Plasma [facility] Sodium [Moles/volume ] in Serum or Plasma [facility] Sodium [Moles/volume ] in Serum or Plasma [facility] Sodium [Moles/volume ] in Serum or Plasma [facility] Specific gravity of Urine [facility] Urea nitrogen [Mass/volume] in Serum or Plasma [facility] Urea nitrogen [Mass/volume] in Serum or Plasma [facility] Urea nitrogen [Mass/volume] in Serum or Plasma [facility] Urea nitrogen [Mass/volume] in Serum or Plasma [facility] Urinalysis, blood, qualitative [facility] Urine dipstick for glucose [facility] Urine dipstick for leukocyte esterase [facility] Urine dipstick for nitrite [facility] Urine dipstick for protein [facility] Urine examination [facility] Urine microscopy: epithelial cells [facility] Urine Microscopy: wh ite cells [facility] Urobilinogen [Presen ce] in Urine [facility] End: 03-26-2026 XR Chest PA and Lateral XR CHEST 2V FRONTAL/LAT Radiology Routine Neoplasm of uncertain behavior of left kidney 1 Occurrences starting 02/24/2025 until 03/26/2026 [facility] Comment on above: 1 Occurrences starti ng 02/24/2025 until 03/26/2026 Payers Date Payer Category Payer Medicaid [id number] 2024 Unknown [id number] 2024 Self-pay [id number] 2018 Unknown [id number] 1960 Unknown [id number] 2.16.8 [id number] 1960 Unknown [id number] 2.16. [id number] Unknown [id number] Unknown [facility] [id number] Unknown [id number] 2.16.8 [id number] Unknown [id number] 2.16.8 40.1.912985.3.579.2.462 Unknown [id number] 2.16.8 40.1.688834.3.579.2.462 Unknown [id number] 2.16.8 40.1.057619.3.579.2.462 Unknown [id number] 2.16.8 40.1.224669.3.579.2.462 Unknown [id number] 2.16.8 40.1.215784.3.579.2.462 Unknown [id number] 2.16.8 40.1.304093.3.579.2.462 Unknown [id number] 2.16.8 40.1.200022.3.579.2.462 Unknown [id number] 2.16.8 40.1.179184.3.579.2.462 Unknown [id number] 2.16.8 40.1.032939.3.579.2.462 Unknown [id number] 2.16.8 40.1.874499.3.579.2.462 Unknown [id number] 2.16.8 40.1.915466.3.579.2.462 Unknown [id number] 2.16.8 40.1.007057.3.579.2.462 Unknown [id number] 2.16.8 40.1.795338.3.579.2.462 Unknown [id number] 2.16.8 40.1.674600.3.579.2.462 Unknown [id number] 2.16.8 40.1.700964.3.579.2.462 Unknown [id number] 2.16.8 [id number] Social History Date Type Detail Facility Start: 03-03-2022 End: 07-29-2023 Tobacco smoking status [facility] Unknown if ever smoked [facility] Start: 1960 Sex Assigned At Female [facility] Start: 05-03-2024 End: 12-09-2024 Tobacco smoking status [facility] Ex-smoker (finding) [facility] Start: 08-15-2005 End: 10-22-2024 Sex Female (finding) [facility] Start: 02-10-2025 History of Social function [facility] Start: 02-10-2025 Area Deprivation Index [facility] Start: 06-07-2012 National Score (1-10 0), lower number is lower risk 64 [facility] Start: 1960 Sex assigned at Not on file [facility] Medical Equipment Procedure Code Equipment Code Equipment Origin al Text Equipment Identifier Dates Pen Needle, Diab etic (Bd Ultra-Fine Josefian Pen Needle) 32 gauge x 5/32 needle [...] x 5/32 needle Start: 04-11-2022 End: 07-28-2022 ACCU-CHEK GUIDE TEST STRIP STRIP, 0 Refill(s) Start: 01-18-2025 ACCU-CHEK SOFTCL IX LANCETS, 0 Refill(s) Start: 01-18-2025 See Instructions , 1 bottle of 100, # 1 EA, 11 Refill(s), Pharmacy: [facility]/pharmacy #[id number], 161, cm, 01/18/25 9:58:00 EDT, Height, 60, kg, 01/18/25 9:58:00 EDT, Dosing Weight Start: 01-18-2025 See Instructions , qs 1 month supply, # 60 EA, 0 Refill(s), Pharmacy: [facility]/pharmacy #[id number], 161, cm, 01/18/25 9:58:00 EDT, Height, 60, kg, 01/18/25 9:58:00 EDT, Dosing Weight Start: 01-18-2025 Blood Sugar Diagnostic (Freestyle Lite Strips) strip [...] /State Functional Status Date Assessment Result Facility 12-10-2024 Functional status Activity Ability Indepe ndent [facility] Work Phone: 12-10-2024 Functional status Patient Activi ty Ambulates;Bathroom Privilege [facility] Work Phone: 07-06-2023 Functional status Ambulates [facility] Work Phone: 07-28-2022 Functional status Ambulates [facility] Work Phone: 03-06-2022 Functional status Chair [facility] Work Phone: Mental Status Date Assessment Result Facility 12-10-2024 Cognitive function Voice/Name [facility] Work Phone: 12-08-2024 Cognitive function Level Of Cons ciousness Awake;Alert;Appropriate;Follow s Commands [facility] Work Phone: 07-29-2023 Cognitive function Level Of Cons ciousness Awake;Alert;Appropriate;Follow s Commands [facility] Work Phone: 07-06-2023 Cognitive function Voice/Name [facility] Work Phone: 07-28-2022 Cognitive function Voice/Name [facility] Work Phone: 05-03-2022 Cognitive function Level Of Cons ciousness Awake;Alert;Appropriate;Follow s Commands [facility] Work Phone: 03-06-2022 Cognitive function Voice/Name [facility] Work Phone: Clinical Notes 05-03-2022 to 02-25-2025 Telephone Encounter - Jayla Joseph RN - 02/25/2025 2:55 PM EDTTelephone Encounter - Jayla Joseph RN - 02/25/2025 2:55 PM EDTTelephone Encounter - Chris Forrester - 02/25/2025 2:25 PM EDT Note Date & Type Note Facility 02-25-2025 Telephone encount er Note Spoke with patient about the importance of getting it done and Dr. Felipe reviewing the labs and last CXR and needing these 2 moving forward. I made her aware that she can even do both as a Walk in Basis in [place] when she figures out living situation. She verbalizes understanding of importance. [facility] 02-25-2025 Miscellaneous Notes Formattin g of this note might be different from the original. Spoke with patient about the importance of getting it done and Dr. Felipe reviewing the labs and last CXR and needing these 2 moving forward. I made her aware that she can even do both as a Walk in Basis in [place] when she figures out living situation. She verbalizes understanding of importance. I spoke with the patient to assist in scheduling lab work and an XR but was unable to get these scheduled. The patient stated since she does not have transportation and no place to stay it is really hard for her to schedule anything at this time. Patient stated she would give our office a call pack to schedule these when she was able to work out her ride situation. Attempted to speak with patient to schedule, I left a voicemail for her to return our call to schedule. Unable to send a [employer] message. Spoke with patient and she states that she had labs when she was overnight in [place] 12-08-2024 through the 12-10-2024. She has the CD with the imaging on it and will get ride to drop off. Spoke with [facility] and she will fax labs, and the CXR was from . Received the records. Dr. Small reviewed the labs and CXR received and he has ordered what he needs done. Please assist with scheduling CXR and labs in [place] for patient. She has transportation issues right now. Patient called to cancel her 02/24 appointment because she was recently evicted and had to cancel her Provide A Ride due to not having a pick-up address. Patient was already scheduled for 03/24 and she is hoping she can get everything straightened out by then. Thank you, Angella documented in this encounter [facility] 02-25-2025 Telephone encount er Note I spoke with the patient to assist in scheduling lab work and an XR but was unable to get these scheduled. The patient stated since she does not have transportation and no place to stay it is really hard for her to schedule anything at this time. Patient stated she would give our office a call pack to schedule these when she was able to work out her ride situation. [facility] 02-25-2025 Telephone encount er Note Attempted to speak with patient to schedule, I left a voicemail for her to return our call to schedule. Unable to send a [employer] message. [facility] 02-24-2025 Note Addended by: MEREDITH FELIPE on: 02/24/2025 01:34 PM Modules accepted: Orders [facility] 02-24-2025 Miscellaneous Notes Addended by: MEREDITH FELIPE on: 02/24/2025 01:34 PM Modules accepted: Orders documented in this encounter [facility] 02-24-2025 Telephone encount er Note Spoke with patient and she states that she had labs when she was overnight in [place] 12-08-2024 through the 12-10-2024. She has the CD with the imaging on it and will get ride to drop off. Spoke with [facility] and she will fax labs, and the CXR was from . Received the records. Dr. Small reviewed the labs and CXR received and he has ordered what he needs done. Please assist with scheduling CXR and labs in [place] for patient. She has transportation issues right now. [facility] 02-24-2025 History of Presen t illness Narrative Images from the original note were not included. Consultation requested by Dr. Salcedo primary care provider on file. for an opinion regarding No chief complaint on file. . My final recommendations will be communicated back to the requesting physician by way of shared Medical record or letter to requesting physician via [place] mail. VIRTUAL VISIT PROGRESS NOTE This is a virtual visit. It required patient-provider interaction for the medical decision making as documented below. I have communicated my name and active licensure. The patient's identity and physical location were verified at the time of this visit. Either the patient or their legal key account representative has been informed of the risks and benefits of -- and alternatives to -- treatment through a remote evaluation and consents to proceed with the evaluation remotely. Lina Meadows is a 64 year old female seen for left renal mass She was hospitalized due to complications of diabetes and an incidental mass was found HISTORY REVIEWED (electronic chart updated): No results found for: PSA No results found for: CREAT PAST MEDICAL HISTORY Diagnosis Date Healthy adult on routine physical examination No past surgical history on file. No family history on file. SOCIAL HISTORY[1] No current outpatient medications on file. No current facility-administered medications for this visit. ALLERGIES Allergen Reactions Latex Rash REVIEW OF SYSTEMS: PHYSICAL EXAMINATION: VIDEO EXAM: (if completed, performed via video enabled technology) No exam performed I personally reviewed the patient's radiology images and dictation and I agree with the radiologist's opinion. I personally reviewed the patient's laboratory studies. I had an extended discussion with the patient regarding renal lesion and further evaluation modalities including serial ultrasound, CT, MRI and (RMB) Renal Mass Biopsy. I had an extended discussion with the patient regarding renal lesion and treatment options: observation, cryotherapy, RFA (radio frequency ablation), partial and radical nephrectomy with open and laparoscopic and robotic techniques. I explained that solid masses have approximately 80% chance malignancy. 20-30% of renal malignancies are aggressive. Small lesions (<3cm) have <3% chance spread annually with growth likely <3mm annually. I explained the various possible complications of this surgical procedure. These included perforation of the colon, a possible temporary or permanent colostomy, sudden and chronic blood loss during surgery, possible ureteral injury, swelling of the abdomen post-operatively, post-operative ileus, post-operative infection of the wound, thrombophlebitis, incisional hernia, rhabdomyolysis, and wound separation. I explained the possibility of lung injury, liver/spleen injury, large and small bowel injury, treatment failure, heart attack, stroke and . For Partial Nephrectomy we specifically discussed the increased risk of: Bleeding, possible need for radical nephrectomy, urine leak, renal arteriovenous fistula and renal artery pseudoaneurysm and the potential need for additional procedures , Decreased kidney function (ATN), Positive surgical margins Explained risks of surgery, including but not limited to bleeding, infection, bowel injury, liver, pancreatic or spleen injury. Explained risks of needing to convert to open procedure. Discussed risk of needing blood transfusion. Discussed anesthetic risks and post operative risks such as but not limited to MD, DVT, PE, CVA, Pneumonia, C. Diff, ileus, and even . Explained that I often do these procedures with a partner and that residents will also be present and participate in their surgery and post operative care. I will be present for all major portions of the case. ASSESSMENT: 6.6 cm left solid renal mass PLAN: Robot-assisted laparoscopic left radical nephrectomy Consideration for partial nephrectomy if imaging demonstrates this tumor is amenable. There are no Patient Instructions on file for this visit. Encounter started as a virtual visit (audio-visual) but was converted to a telephone visit (audio only) due to insurmountable technological challenges. Meredith Felipe MD HISTORY OF PRESENT ILLNESS: The patient has a 6.6 cm solid enhancing mass in the left kidney, identified on imaging performed on 12/08/2024. The mass is considered malignant until proven otherwise. She has undergone some testing at an outside hospital and will provide the physical images soon. No results found for this basename: uglucpoc,ubilipoc,uketonpoc,usgpoc, uhbpoc,uphpoc,upropoc,uuropoc,unitp oc,uwbcpoc,ucolpoc,uclarpoc No results found for: CREAT Medications/allergies reviewed and updated. PAST MEDICAL HISTORY Diagnosis Date Healthy adult on routine physical examination No past surgical history on file. No family history on file. SOCIAL HISTORY[2] ALLERGIES: ALLERGIES Allergen Reactions Latex Rash CURRENT OUTPATIENT MEDICATIONS: No prescriptions on file. REVIEW OF SYSTEMS: Const: Well appearing, in no acute distress, well-hydrated, well-nourished, alert, awake, oriented to time, place and person. HEENT: Negative for frequent or significant headaches. No changes in hearing or vision, no nose bleeds or other nasal problems. Neck: Negative for lumps, goiter, pain and significant neck swelling. Resp: Negative for cough, wheezing or shortness of breath. CV: Negative for chest pain, leg swelling or palpitations. GI: Negative for abdominal discomfort, blood in stools or black stools and change in bowel habits. : See HPI Musculoskelatal: Negative for joint pain or swelling, back pain or muscle pain. Skin: No skin lesions. Psych: Negative for sleep disturbance, mood disorder and recent psychosocial stressors. Desmnod/Lymph: Negative for prolonged bleeding, bruising easily or swollen nodes. Endocrine: Negative for cold or heat intolerance, polyuria, polydipsia and goiter. Neuro: No history of headaches, syncope, paralysis, seizures or tremors. PHYSICAL EXAMINATION: VITAL SIGNS: There were no vitals taken for this visit. General: Alert & oriented, no acute distress Skin: Normal HEENT: Pupils equal, round. Oral cavity, oropharynx clear Neck: Supple, no mass Breast: Deferred Respiratory: Clear to auscultation, bilaterally Cardiovascular: Regular rate and rhythm, no murmurs, rubs, or gallops Abdomen: Soft, non-tender, non-distended, no masses palpable, no hepatosplenomegaly, normal bowel sounds Genitourinary: Deferred MSK: Back is non-tender Extremities: No clubbing, cyanosis, or edema LAST LAB RESULTS: No results found for this basename: inr:1,ptsec:1 No results found for: GLUC, K, NA, CHLOR, CO2, CREAT, BUN, ANION, CA, TPROT, ALB, TBILI, ALKPHOS, AST, ALT No results found for: GLUC I personally reviewed the patient's radiology images and dictation and I agree with the radiologist's opinion. I personally reviewed the patient's laboratory studies. Assessment and Plan: 1. 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 - Discussed management options, including radical and partial nephrectomy. - Tentatively scheduled for robot-assisted laparoscopic left radical nephrectomy. - Discussed surgical risks, including but not limited to bleeding, infection, myocardial infarction, cerebrovascular accident, , bowel injury, nerve injury, and urinary tract injury; verbal consent obtained over the phone. - Additional blood work and imaging may be required per NCCN guidelines, which were reviewed. - Will review prior testing from outside hospital and complete any outstanding workup as needed. Abbreviated A&P: Telephone encounter only. The patient was recently evicted and had to cancel another appointment. Due to the significance of her renal mass we elected to have a phone encounter alone. She did not have the technology to support a virtual visit. Discussion of the left renal mass as above Consent for robot-assisted laparoscopic left radical nephrectomy Metastatic workup based on NCCN guidelines and may need to be added based on any outside testing. Written and verbal health teaching given to patient, patient verbalizes understanding and agrees with treatment plan. Recording using [employer] software for draft documentation of the visit was discussed with the patient/authorized key account representative; all questions welcomed and answered. Patient/authorized key account representative agreed to proceed Patient will call if worsening symptoms, no improvement, or any other concerns. Plan discussed. Meredith Felipe MD Electronically Signed: Meredith Felipe MD February 24, 2025 10:01 AM This note was partially created using voice recognition software and is inherently subject to errors including those of syntax and sound-alike substitutions which may escape proofreading. In such instances, original meaning may be extrapolated by contextual derivation. Patient Instructions: We discussed your left renal mass: - Your imaging from December 08, 2024, shows a 6.6 cm solid enhancing mass in your left kidney, which is considered malignant until proven otherwise. - We reviewed treatment options, including radical and partial nephrectomy, and decided to tentatively schedule you for a robot-assisted laparoscopic left radical nephrectomy. - The risks of the procedure, including bleeding, infection, heart attack, stroke, , bowel injury, nerve injury, and urinary injury, were discussed, and you provided verbal consent over the phone. - You will need to provide the physical imaging from December 08, 2024, as we do not currently have it. - Additional blood work and imaging may be required based on NCCN guidelines. We will review any testing you had done at an outside hospital and complete any remaining necessary evaluations. [1] [2] documented in this encounter [facility] 02-23-2025 Telephone encount er Note Patient called to cancel her 02/24 appointment because she was recently evicted and had to cancel her Provide A Ride due to not having a pick-up address. Patient was already scheduled for 03/24 and she is hoping she can get everything straightened out by then. Thank you, Angella [facility] 12-10-2024 Discharge summary Note Date/Time December 10, 2024 9:03am [facility] Medical Records Department [address] [place] [id number] Discharge Summary 12/10/24 0858 MR#: [id number] Acct: [id number] Name: JANISLINA E Rep #:[id number] : 1960 64 From: Ciro Mendosa MD PCP: Dr. Milind Lamb MD Status:ADM I N Location: [facility] [id number] Providers Date of Admission: 12/09/24 Date of Discharge: 12/10/24 Primary Care Physician: Dr. Milind Lamb MD Reason For Visit: DKA Diagnosis Discharge Diagnosis (1) Diabetic ketoacidosis: Status: Acute Code(s): E11.10 - Type 2 diabetes mellitus with ketoacidosis without coma Plan Patient is a 64-year-old lady with history of diabetes mellitus type 2 currentlyon insulin who presented with nausea vomiting and diarrhea and progressive generalized weakness. Her assessment on admission was consistent with diabetic ketoacidosis admitted to the intensive care unit for further management 1. Diabetic ketoacidosis ? Patient was admitted to the intensive care unit treatment initiated with IV fluid resuscitation per protocol systemic insulin (insulin drip) and monitoring of electrolyte with correction of electrolyte abnormalities. Patient response to therapy being monitored with serial BMP?every 4, and close monitoring of patient anion gap ? 12/10/2024; patient DKA did resolve started on her home insulin regimen which she tolerated well. Adjusted patient Premeal insulin regimen from 16 before meals to 10 units before meals. Maintained patient long-acting insulin dose 2. Acute gastroenteritis ? Suspected to be viral gastroenteritis. Patient treated symptomatically 3. Diabetes mellitus type 2 ? Uncontrolled with hemoglobin A1c of 12 patient presented with DKA management as discussed above. Plan is to resume patient home insulin regimen once DKA resolves 4. Acute renal insufficiency ? Secondary to severe volume depletion from DKA patient managed with IV fluids 5. Dyslipidemia ?Patient is on statin therapy?rosuvastatin, continued at home dose 6. Depression ? Patient is on sertraline continue 7. Essential hypertension ? Patient is on lisinopril with continue 8. Anemia ? Secondary to chronic disorder monitoring H&H and transfuse if patient becomes symptomatic or hemoglobin falls below 7 9 DVT prophylaxis ? Subcu Lovenox 10. Kidney mass ? CT of the abdomen and pelvis obtained on admission did showHeterogeneous mass at the lower pole of the left kidney measuring up to 6.6 cm, featuring a segmental region of hypodensity and a possible punctate calcification. Findingsare highly worrisome for renal cell carcinoma, though other benign and malignantetiologies such as oncocytoma are also possible. Follow-up appointment was set up with urology as outpatient Time spent in the patient's overall evaluation,decision-making process, review of diagnostic data, adjustment of management, discussion with other providers, nursing nursing and ancillary staff involved in patient's care documentation, 35 Minutes Medications at Discharge Home Medications flash glucose sensor (FreeStyle Moncho 2 Sensor kit) #2 ea 04/11/22 blood-glucose meter (FreeStyle Lite Meter kit) #1 ea 01/22/23 lancets 28 gauge (FreeStyle Lancets) #100 ea 07/28/22 pen needle, diabetic 32 gauge x 5/32 (BD Ultra-Fine Josefina Pen Needle) #50 ea 07/28/22 lancets 28 gauge (FreeStyle Lancets) #100 ea 07/06/23 sertraline 50 mg tablet 50 mg PO DAILY depression 05/02/24 blood sugar diagnostic (FreeStyle Lite Strips) #100 ea 05/04/24 lisinopril 5 mg tablet 5 mg PO DAILY #30 tabs 05/04/24 metformin 1,000 mg tablet 1,000 mg PO DAILY #30 tabs 05/04/24 insulin glargine U-300 conc 300 unit/mL (1.5 mL) subcutaneous pen (Toujeo SoloStar U-300 Insulin) 40 unit subcut QHS 12/08/24 rosuvastatin 5 mg tablet 5 mg PO DAILY 12/08/24 insulin lispro 100 unit/mL subcutaneous pen (Humalog KwikPen (U-100) Insulin) 10unit (0.1 mL) subcut TIDAC diabetes #15 mL 12/10/24 Physical Exam Narrative GENERAL: cooperative HEENT: Atraumatic; normocephalic EYES; Anicteric, Normal Conjunctiva NECK; supple, normal thyroid, RESPIRATORY: Diminished to auscultation CARDIOVASCULAR: Regular S1 S2, GI: soft, normoactive bowel sounds, : No Renal angle tenderness; EXTREMITIES: No edema, no clubbing, MUSCULOSKELETAL: no muscle wasting NEURO: Awake; no lateralizing signs. SKIN: No Rash PSYCH; Flat affect Weight / BMI Weight Weight: 58 kg Body Mass Index (BMI) 22.6 ABG / Lab / Microbiology Data 12/10/24 05:26 12/10/24 05:26 Laboratory: Laboratory Results - last 24 hr 12/09/24 08:20: Sodium 135, Potassium 3.8, Chloride 104, Carbon Dioxide 17.2 L, Anion Gap 14, BUN 17, Creatinine 0.94, Estim Creat Clear Calc 51.33, Est GFR (MDRD) Non-Af 69, BUN/Creatinine Ratio 18.1, Glucose 123 H, Calcium 9.1 12/09/24 08:24: POC Glucose 116 H 12/09/24 11:19: POC Glucose 140 H 12/09/24 16:30: POC Glucose 253 H 12/09/24 22:29: POC Glucose 207 H 12/10/24 05:26: WBC 4.1 L, RBC 3.49 L, Hgb 10.5 L, Hct 29.9 L, MCV 85.7, MCH 30.1, MCHC 35.1, RDW Std Deviation 39.3, RDW Coeff of Nellie 12.7, Plt Count 175, MPV 12.0, Sodium 137, Potassium 3.6, Chloride 106, Carbon Dioxide 21.1, Anion Gap 10, BUN 11, Creatinine 0.76, Estim Creat Clear Calc 63.49, Est GFR (MDRD) Non-Af 89, BUN/Creatinine Ratio 14.1, Glucose 118 H, Calcium 9.5, Phosphorus 3.1, Magnesium 1.9 12/10/24 06:20: POC Glucose 115 H D/C Instructions Discharge Diet: 1800 Calorie Control Diet Discharge Activity: Return to Normal Activity Call your doctor if you observe: Fever of 101 or Higher, Shortness of breath, Fainting spells and Chest pain DC O2, CPAP, BIPAP Needs Home O2 Discharge instructions: No Meaningful Use Info Meaningful Use Meaningful Use Diagnoses (Choose all that apply): None applicable Ischemic Stroke Statin Dosing Therapy Reference: STATIN DOSE THERAPY REFERENCE: * Patients > 75 years receive moderate or high dose statin therapy. * Patients 75 years or YOUNGER should receive HIGH intensity statin dose unless contraindicated. You will be required to document reason for non-treatment if statin daily dose does not meet guidelines. HIGH DOSE STATIN THERAPY DAILY Atorvastatin > than or = to 40 mg Rosuvastatin > than or = to 20 mg Amlodipine + Atorvastatin > than or = to 2.5/40 mg Ezetimibe + Simvastatin 10/80 mg Simvastatin 80mg Discharge Plan Admission Admit Date/Time: 12/09/24 00:10 Attending Provider: Ciro Mendosa Primary Care Provider: Milind Lamb Consulting Providers: Zelda Ibarra Discharge Orders/Prescriptions Prescriptions: Continued (DME) FreeStyle Moncho 2 Sensor Kit See Rx Instructions .Route Qty: 2 5RF Rx Instructions: As directed (DME) lancets [FreeStyle Lancets] 28 gauge misc See Rx Instructions .Route Qty: 100 0RF Rx Instructions: As directed (DME) pen needle, diabetic [BD Ultra-Fine Josefina Pen Needle] 32 gauge x 5/32 needle See Rx Instructions .ROUTE .MEDSUPPLY Qty: 50 5RF Rx Instructions: daily (DME) blood-glucose meter [FreeStyle Lite Meter] Kit See Rx Instructions .Route Qty: 1 0RF Rx Instructions: As directed (DME) lancets [FreeStyle Lancets] 28 gauge misc See Rx Instructions .Route Qty: 100 0RF Rx Instructions: As directed sertraline 50 mg tablet 50 mg PO DAILY lisinopril 5 mg Tablet 5 mg PO DAILY Qty: 30 2RF metformin 1,000 mg tablet 1,000 mg PO DAILY Qty: 30 2RF (DME) FreeStyle Lite Strips Strip See Rx Instructions .Route Qty: 100 2RF Rx Instructions: As directed insulin glargine U-300 conc [Toujeo SoloStar U-300 Insulin] 300 unit/mL (1.5 mL) insulin pen 40 unit subcut QHS rosuvastatin 5 mg tablet 5 mg PO DAILY Changed insulin lispro [Humalog KwikPen Insulin] 100 unit/mL Insulin Pen 10 unit subcut TIDAC Qty: 15 3RF Referrals / Follow Up: Analia Doe MD [Med Staff - Active Staff] - Within 1 Week (Renal mass) Milind Lamb MD [Primary Care Provider] - Within 1 Week Disposition Disposition (needs filled in before D/C Order can be placed): Home, Self Care Charges/Coding Visit Charges Inpatient E&M: 64168 Disch Hosp >30min 12/10/24 0903 <Electronically signed by Ciro Mendosa MD> Cosigner Signature (if applicable): CC: Dr. Ciro Mendosa MD; Dr. Milind Lamb MD~ Signed [facility] Work Phone: [phone]) 198-957106-06-2025 Discharge summary Author Miki Sen [facility] Note Date/Time December 10, 2024 8:29a m [facility] Medical Records Department [address] [place] [address] Emergency Department Summary 12/08/24 MR#: [id number] Acct: [id number] Name: LINA MEADOWS Rep #:[id number] : 1960 64 From: Miki Sen DO PCP: Dr. Milind Lamb MD Status:ADM I N Location: [address] Dr[address] Miki Sen DO on 12/10/24 at 0829 Critical care time 39 minutes 12/10/24 0829<Electronically signed by Miki Sen DO> Cosigner Signature (if applicable): cc: Dr. Milind Lamb MD ~* Signed HPI History of Present Illness Chief Complaint: Hyperglycemia Narrative Narrative: Patient is a 64-year-old female with past medical history of diabetes, hypertension, GERD, alcohol abuse, anxiety, depression who presents to the emergency department chief complaint of nausea vomiting diarrhea. Patient states that she woke up this morning not feeling well overall and notes that shetook some insulin this morning but notes that she did not eat much all day as she has had nausea vomiting diarrhea and not feeling well. She states that she was unable to check her glucose secondary to being out of her testing strips. [facility] Medical History Accelerated hypertension DKA (diabetic ketoacidosis) Sinus tachycardia seen on registered nurse cardiac Diabetic ketoacidosis associated with type 1 diabetes mellitus Pyuria Back pain Diabetes Hypokalemia Tobacco use Anxiety and depression ETOH abuse GERD (gastroesophageal reflux disease) HTN (hypertension) Diabetes mellitus, type 2 History of alcoholism COVID-19 Home Medications ?Medication ?Instructions ?Recorded ?Last Taken ?Type flash glucose sensor (FreeStyle #2 ea 04/11/22 Unknown Rx Moncho 2 Sensor kit) blood-glucose meter (FreeStyle #1 ea 07/28/22 Unknown Rx Lite Meter kit) lancets 28 gauge (FreeStyle #100 ea 07/28/22 Unknown R x Lancets) pen needle, diabetic 32 gauge x #50 ea 07/28/22 Unknow n Rx (BD Ultra-Fine Josefina Pen Needle) lancets 28 gauge (FreeStyle #100 ea 07/06/23 Unknown R x Lancets) sertraline 50 mg tablet 50 mg PO DAILY depression Unknown History blood sugar diagnostic (FreeStyle #100 ea 05/04/24 Unk nown Rx Lite Strips) insulin lispro 100 unit/mL 6 unit (0.06 mL) subcut TID AC 05/04/24 02/29/24 Rx subcutaneous pen (Humalog KwikPen diabetes #15 mL (U-100) Insulin) lisinopril 5 mg tablet 5 mg PO DAILY #30 tabs 05/04 Unknown Rx metformin 1,000 mg tablet 1,000 mg PO DAILY #30 tabs 1 Unknown Rx insulin glargine U-300 conc 300 40 unit subcut QHS 10/29 Unknown History unit/mL (1.5 mL) subcutaneous pen (Toujeo SoloStar U-300 Insulin) rosuvastatin 5 mg tablet 5 mg PO DAILY 12/08/24 Unkno wn History Allergy/AdvReac Type Severity Reaction Status Date / Time No Known Allergies Allergy Verified 12/08/24 19:54 Family History Mother Diabetes Father Diabetes Cancer Hx mesothelioma. Surgical History Status post tubal ligation Social History household members: other details: Lives with her son. Her son is also an alcoholic. Smoking Status: Former smoker alcohol intake: former details: maybe drinks a glass of wine a day, but does not drink alcohol anymore substance use type: does not use ROS ROS ED ROS Narrative Constitutional: Complains of chills denies fevers, headaches Eyes: Denies change in vision double vision blurry vision Cardiovascular: Denies chest pain Respiratory: Denies coughing wheezing shortness of breath Abdomen: Complains of nausea vomiting diarrhea as noted above : Denies any urinary symptoms Neurological: Denies numbness, wheeze, tingling Musculoskeletal: Denies back pain Skin: Denies any rashes or lesions EXAM Physical Exam Narrative Exam Narrative: General: Patient lying in bed appeared to be uncomfortable not feeling well overall Head: Atraumatic, normocephalic Eyes: PERRL bilaterally, EOMI bilateral, no conjunctival injection noted Neck: Soft, supple, trachea midline Cardiovascular: Regular rate and rhythm Respiratory: Clear to auscultation bilaterally Abdomen: Soft, nondistended, diffuse tenderness to palpation no rebound or guarding on exam Extremities: +5/5 strength noted in the bilateral upper and lower extremities Neurological: Patient follow commands and that she was at [facility] year is 2024 Skin: Warm, dry, tact no rashes or lesions noted Const Vital Signs: 12/08/24 19:54 12/08/24 19:55 12/08/24 19:55 Temperature 98.8 F Temperature Source Oral Oral Pulse Rate 102 H Respiratory Rate 16 Respiratory Effort Normal Non-Labored Respiratory Pattern Normal Blood Pressure 161/71 H Blood Pressure Mean 101 Pulse Ox 100 Oxygen Delivery Method Room Air 12/08/24 21:00 12/08/24 22:00 12/08/24 23:00 Temperature Temperature Source Pulse Rate 92 100 100 Respiratory Rate 20 H 19 H 24 H Respiratory Effort Respiratory Pattern Blood Pressure 148/66 H 120/58 L 116/68 Blood Pressure Mean 93 78 84 Pulse Ox 100 99 100 Oxygen Delivery Method Room Air Room Air Room Air MDM MDM MDM Narrative Medical decision making narrative: Patient is a 64-year-old female who presented to the emergency department chief complaint of nausea vomiting diarrhea and not feeling well. On the differentialdiagnosis includes but not limited to viral gastroenteritis, upper respiratory infection second viral etiology, viral gastroenteritis, DKA. Once workup is obtained reviewed she will be reevaluated. Patient to get IV fluids for hydration. Patient's blood glucose was noted to be in the 500s she will be given 15 units of subcutaneous insulin. Patient's CBC reviewed showed no evidence leukocytosis white blood count normal at 7.9, hemoglobin stable at 11, platelet count normal at 230. Patient's VBG reviewed and showed a pH 7.21, sodium was low although this is likely secondary to her hyperglycemia indicating pseudohyponatremia, CO2 level low at 12.2 anion gap high at 26. Patient's glucose was 592 creatinine was elevated 1.36. Patient's AST and ALT were 13 and 14 respectively. Patient lipase normal at 49,beta hydroxybutyrate elevated to 7.9. Patient's urinalysis showed 150 ketones no evidence of infection patient will be placed on insulin drip. Patient's CBC reviewed showed no evidence of leukocytosis white blood patient's CT abdomen pelvis IV contrast showed no acute intra-abdominal abnormality. Appendix is unremarkable. Heterogeneous mass at the lower pole of the left kidney measuring up to 6.6 cm featuring a segmental region of hypodensity and possible punctate calcification. Findings highly worrisome for renal cell carcinoma though other benign and malignant etiologies are also possible cholelithiasis. At this point in time we will discuss case with hospitalist for admission for DKA. Nursing notified me that the patient's blood glucose was noted to be 231 therefore she will be started on D5 NS with 40 mill equivalents of potassium at 125 mL with an hour Spoke with hospitalist Dr. Ibarra who accept patient for admission. I discussed the incidental findings with the patient of the renal mass. All question concerns answered. Lab Data Labs: Laboratory Results - last 24 hr 12/08/24 12/08/24 12/08/24 20:00 20:49 22:11 WBC 7.9 RBC 3.72 L Hgb 11.0 L Hct 32.5 L MCV 87.4 MCH 29.6 MCHC 33.8 RDW Std Deviation 39.8 RDW Coeff of Nellie 12.5 Plt Count 230 MPV 12.8 H Immature Gran % (Auto) 0.300 Neut % (Auto) 67.7 Lymph % (Auto) 22.8 [place] % (Auto) 7.7 Eos % (Auto) 0.9 Baso % (Auto) 0.6 Absolute Neuts (auto) 5.4 Absolute Lymphs (auto) 1.80 Nucleated RBC % 0 Sodium 128 L Potassium 4.9 Chloride 90 L Carbon Dioxide 12.2 L Anion Gap 26 H BUN 27 H Creatinine 1.36 H Estim Creat Clear Calc 35.48 L Est GFR (MDRD) Non-Af 44 L BUN/Creatinine Ratio 19.5 Glucose 592 H* Calcium 9.7 Total Bilirubin 0.25 AST 13 ALT 14 Alkaline Phosphatase 108 H Total Protein 7.5 Albumin 4.3 Globulin 3.2 Albumin/Globulin Ratio 1.4 Lipase 49 b-Hydroxybutyric mmol/L 7.9 H Urine Color Urine Clarity Urine pH Ur Specific [place] Urine Protein Urine Glucose (UA) Urine Ketones Urine Occult Blood Urine Nitrite Urine Bilirubin Urine Urobilinogen Ur Leukocyte Esterase Urine RBC Urine WBC Ur Squamous Epith Cells Urine Bacteria Urine Mucus POC Glucose > 500 H* 491 H* 380 H 12/08/24 12/08/24 22:25 23:30 WBC RBC Hgb Hct MCV MCH MCHC RDW Std Deviation RDW Coeff of Nellie Plt Count MPV Immature Gran % (Auto) Neut % (Auto) Lymph % (Auto) [place] % (Auto) Eos % (Auto) Baso % (Auto) Absolute Neuts (auto) Absolute Lymphs (auto) Nucleated RBC % Sodium Potassium Chloride Carbon Dioxide Anion Gap BUN Creatinine Estim Creat Clear Calc Est GFR (MDRD) Non-Af BUN/Creatinine Ratio Glucose Calcium Total Bilirubin AST ALT Alkaline Phosphatase Total Protein Albumin Globulin Albumin/Globulin Ratio Lipase b-Hydroxybutyric mmol/L Urine Color Yellow Urine Clarity Clear Urine pH 6.0 Ur Specific [place] 1.015 Urine Protein 30 H Urine Glucose (UA) 1000 H Urine Ketones 150 A* Urine Occult Blood Negative Urine Nitrite Negative Urine Bilirubin Negative Urine Urobilinogen Normal Ur Leukocyte Esterase Negative Urine RBC 0 SEEN Urine WBC 0 SEEN Ur Squamous Epith Cells 0 SEEN Urine Bacteria 0 SEEN Urine Mucus 0 SEEN POC Glucose 231 H ABG Data ABG results: ABG 12/08/24 20:44 Specimen Type LIZY Sample Site Not entered VBG pH 7.21 L VBG pO2 31 VBG HCO3 13 L VBG Total CO2 14 L VBG O2 Sat (Calc) 47 L VBG Base Excess -15 L POC Mix VBG pCO2 Pt Tmp 31.1 L O2 Delivery Device Not entered Radiography Diagnostic Testing: Clinical Impression(s) from Imaging Studies Abdomen/Pelvis CT 12/08/24 20:31 IMPRESSION: 1. No acute intra-abdominal abnormality. The appendix is unremarkable. 2. Heterogeneous mass at the lower pole of the left kidney measuring up to 6.6 cm, featuring a segmental region of hypodensity and a possible punctate calcification. Findings are highly worrisome for renal cell carcinoma, though other benign and malignant etiologies such as oncocytoma are also possible. Recommend Urology referral. 3. Cholelithiasis. Yellow Alert: Left kidney mass The critical information above was relayed directly by me by telephone to Miki Sen on 12/08/2024 at 11:16 pm with readback verification. Reading Location: [id number] Discharge Plan Triage Chief Complaint: Hyperglycemia ED Provider: Miki Sen Dx/Rx/DC Orders Clinical Impression: Diabetic ketoacidosis, Abnormal computed tomography of abdomen and pelvis Prescriptions: No Action (DME) FreeStyle Moncho 2 Sensor Kit See Rx Instructions .Route Qty: 2 5RF Rx Instructions: As directed (DME) lancets [FreeStyle Lancets] 28 gauge misc See Rx Instructions .Route Qty: 100 0RF Rx Instructions: As directed (DME) pen needle, diabetic [BD Ultra-Fine Josefina Pen Needle] 32 gauge x 5/32 needle See Rx Instructions .ROUTE .MEDSUPPLY Qty: 50 5RF Rx Instructions: daily (DME) blood-glucose meter [FreeStyle Lite Meter] Kit See Rx Instructions .Route Qty: 1 0RF Rx Instructions: As directed (DME) lancets [FreeStyle Lancets] 28 gauge misc See Rx Instructions .Route Qty: 100 0RF Rx Instructions: As directed sertraline 50 mg tablet 50 mg PO DAILY lisinopril 5 mg Tablet 5 mg PO DAILY Qty: 30 2RF metformin 1,000 mg tablet 1,000 mg PO DAILY Qty: 30 2RF (DME) FreeStyle Lite Strips Strip See Rx Instructions .Route Qty: 100 2RF Rx Instructions: As directed insulin lispro [Humalog KwikPen Insulin] 100 unit/mL Insulin Pen 6 unit subcut TIDAC Qty: 15 3RF insulin glargine U-300 conc [Toujeo SoloStar U-300 Insulin] 300 unit/mL (1.5 mL) insulin pen 40 unit subcut QHS rosuvastatin 5 mg tablet 5 mg PO DAILY Primary Care Provider: Milind Lamb Referrals: Milind Lamb MD [Primary Care Provider] - Print Language: Ecuadorean Disposition Disposition: Acute Care Hospital [facility] What to do if you have Problems For any increased pain, shortness of breath, bleeding, nausea or vomiting, chestpain, or any unexpected problems, contact your Primary Care Provider. Call [facility] ([phone]) or report to the closest Emergency Room. Call 911 if necessary. 12/09/24 0019 <Electronically signed by Miki Sen DO> Cosigner Signature (if applicable): CC: Dr. Milind Lamb MD ~ Signed [facility] Work Phone: [phone] [facility] Medical Records Department [address] [place] [address] Discharge Summary 12/10/24 0858 MR#: [id number] Acct: [id number] Name: LINA MEADOWS Rep #:[id number] : 1960 64 From: Ciro Mendosa MD PCP: Dr. Milind Lamb MD Status:ADM I N Location: [facility] [id number] Providers Date of Admission: 12/09/24 Date of Discharge: 12/10/24 Primary Care Physician: Dr. Milind Lamb MD Reason For Visit: DKA Diagnosis Discharge Diagnosis (1) Diabetic ketoacidosis: Status: Acute Code(s): E11.10 - Type 2 diabetes mellitus with ketoacidosis without coma Plan Patient is a 64-year-old lady with history of diabetes mellitus type 2 currentlyon insulin who presented with nausea vomiting and diarrhea and progressive generalized weakness. Her assessment on admission was consistent with diabetic ketoacidosis admitted to the intensive care unit for further manag ement 1. Diabetic ketoacidosis ? Patient was admitted to the intensive care unit treatment initiated with IV fluid resuscitation per protocol systemic insulin (insulin drip) and monitoring of electrolyte with correction of electrolyte abnormalities. Patient response to therapy being monitored with serial BMP?every 4, and close monitoring of patient anion gap ? 12/10/2024; patient DKA did resolve started on her home insulin regimen which she tolerated well. Adjusted patient Premeal insulin regimen from 16 before meals to 10 units before meals. Maintained patient long-acting insulin dose 2. Acute gastroenteritis ? Suspected to be viral gastroenteritis. Patient treated symptomatically 3. Diabetes mellitus type 2 ? Uncontrolled with hemoglobin A1c of 12 patient presented with DKA management as discussed above. Plan is to resume patient home insulin regimen once DKA resolves 4. Acute renal insufficiency ? Secondary to severe volume depletion from DKA patient managed with IV fluids 5. Dyslipidemia ?Patient is on statin therapy?rosuvastatin, continued at home dose 6. Depression ? Patient is on sertraline continue 7. Essential hypertension ? Patient is on lisinopril with continue 8. Anemia ? Secondary to chronic disorder monitoring H&H and transfuse if patient becomes symptomatic or hemoglobin falls below 7 9 DVT prophylaxis ? Subcu Lovenox 10. Kidney mass ? CT of the abdomen and pelvis obtained on admission did showHeterogeneous mass at the lower pole of the left kidney measuring up to 6.6 cm, featuring a segmental region of hypodensity and a possiblepunctate calcification. Findingsare highly worrisome for renal cell carcinoma, though other benign and malignantetiologies such as oncocytoma are also possible. Follow-up appointment was set up with urology as outpatient Time spent in the patient's overall evaluation,decision-making process, review of diagnostic data, adjustment of management, discussion with other providers, nursing nursing and ancillary staff involved in patient's care documentation, 35 Minutes Medications at Discharge Home Medications flash glucose sensor (FreeStyle Moncho 2 Sensor kit) #2 ea 04/11/22 blood-glucose meter (FreeStyle Lite Meter kit) #1 ea 07/28/22 lancets 28 gauge (FreeStyle Lancets) #100 ea 07/28/22 pen needle, diabetic 32 gauge x 5/32 (BD Ultra-Fine Josefina Pen Needle) #50 ea 07/28/22 lancets 28 gauge (FreeStyle Lancets) #100 ea 07/06/23 sertraline 50 mg tablet 50 mg PO DAILY depression 05/02/24 blood sugar diagnostic (FreeStyle Lite Strips) #100 ea 05/04/24 lisinopril 5 mg tablet 5 mg PO DAILY #30 tabs 05/04/24 metformin 1,000 mg tablet 1,000 mg PO DAILY #30 tabs 05/04/24 insulin glargine U-300 conc 300 unit/mL (1.5 mL) subcutaneous pen (Toujeo SoloStar U-300 Insulin) 40 unit subcut QHS 12/08/24 rosuvastatin 5 mg tablet 5 mg PO DAILY 12/08/24 insulin lispro 100 unit/mL subcutaneous pen (Humalog KwikPen (U-100) Insulin) 10unit (0.1 mL) subcut TIDAC diabetes #15 mL 12/10/24 Physical Exam Narrative GENERAL: cooperative HEENT: Atraumatic; normocephalic EYES; Anicteric, Normal Conjunctiva NECK; supple, normal thyroid, RESPIRATORY: Diminished to auscultation CARDIOVASCULAR: Regular S1 S2, GI: soft, normoactive bowel sounds, : No Renal angle tenderness; EXTREMITIES: No edema, no clubbing, MUSCULOSKELETAL: no muscle wasting NEURO: Awake; no lateralizing signs. SKIN: No Rash PSYCH; Flat affect Weight / BMI Weight Weight: 58 kg Body Mass Index (BMI) 22.6 ABG / Lab / Microbiology Data 12/10/24 05:26 12/10/24 05:26 Laboratory: Laboratory Results - last 24 hr 12/09/24 08:20: Sodium 135, Potassium 3.8, Chloride 104, Carbon Dioxide 17.2 L, Anion Gap 14, BUN 17, Creatinine 0.94, Estim Creat Clear Calc 51.33, Est GFR (MDRD) Non-Af 69, BUN/Creatinine Ratio 18.1, Glucose 123 H, Calcium 9.1 12/09/24 08:24: POC Glucose 116 H 12/09/24 11:19: POC Glucose 140 H 12/09/24 16:30: POC Glucose 253 H 12/09/24 22:29: POC Glucose 207 H 12/10/24 05:26: WBC 4.1 L, RBC 3.49 L, Hgb 10.5 L, Hct 29.9 L, MCV 85.7, MCH 30.1, MCHC 35.1, RDW Std Deviation 39.3, RDW Coeff of Nellie 12.7, Plt Count 175, MPV 12.0, Sodium 137, Potassium 3.6, Chloride 106, Carbon Dioxide 21.1, Anion Gap 10, BUN 11, Creatinine 0.76, Estim Creat Clear Calc 63.49, Est GFR (MDRD) Non-Af 89, BUN/Creatinine Ratio 14.1, Glucose 118 H, Calcium 9.5, Phosphorus 3.1, Magnesium 1.9 12/10/24 06:20: POC Glucose 115 H D/C Instructions Discharge Diet: 1800 Calorie Control Diet Discharge Activity: Return to Normal Activity Call your doctor if you observe: Fever of 101 or Higher, Shortness of breath, Fainting spells and Chest pain DC O2, CPAP, BIPAP Needs Home O2 Discharge instructions: No Meaningful Use Info Meaningful Use Meaningful Use Diagnoses (Choose all that apply): None applicable Ischemic Stroke Statin Dosing Therapy Reference: STATIN DOSE THERAPY REFERENCE: * Patients > 75 years receive moderate or high dose statin therapy. * Patients 75 years or YOUNGER should receive HIGH intensity statin dose unless contraindicated. You will be required to document reason for non-treatment if statin daily dose does not meet guidelines. HIGH DOSE STATIN THERAPY DAILY Atorvastatin > than or = to 40 mg Rosuvastatin > than or = to 20 mg Amlodipine + Atorvastatin > than or = to 2.5/40 mg Ezetimibe + Simvastatin 10/80 mg Simvastatin 80mg Discharge Plan Admission Admit Date/Time: 12/09/24 00:10 Attending Provider: Ciro Mendosa Primary Care Provider: Milind Lamb Consulting Providers: Zelda Ibarra Discharge Orders/Prescriptions Prescriptions: Continued (DME) FreeStyle Moncho 2 Sensor Kit See Rx Instructions .Route Qty: 2 5RF Rx Instructions: As directed (DME) lancets [FreeStyle Lancets] 28 gauge misc See Rx Instructions .Route Qty: 100 0RF Rx Instructions: As directed (DME) pen needle, diabetic [BD Ultra-Fine Josefina Pen Needle] 32 gauge x 5/32 needle See Rx Instructions .ROUTE .MEDSUPPLY Qty: 50 5RF Rx Instructions: daily (DME) blood-glucose meter [FreeStyle Lite Meter] Kit See Rx Instructions .Route Qty: 1 0RF Rx Instructions: As directed (DME) lancets [FreeStyle Lancets] 28 gauge misc See Rx Instructions .Route Qty: 100 0RF Rx Instructions: As directed sertraline 50 mg tablet 50 mg PO DAILY lisinopril 5 mg Tablet 5 mg PO DAILY Qty: 30 2RF metformin 1,000 mg tablet 1,000 mg PO DAILY Qty: 30 2RF (DME) FreeStyle Lite Strips Strip See Rx Instructions .Route Qty: 100 2RF Rx Instructions: As directed insulin glargine U-300 conc [Toujeo SoloStar U-300 Insulin] 300 unit/mL (1.5 mL) insulin pen 40 unit subcut QHS rosuvastatin 5 mg tablet 5 mg PO DAILY Changed insulin lispro [Humalog KwikPen Insulin] 100 unit/mL Insulin Pen 10 unit subcut TIDAC Qty: 15 3RF Referrals / Follow Up: Analia Doe MD [Med Staff - Active Staff] - Within 1 Week (Renal mass) Milind Lamb MD [Primary Care Provider] - Within 1 Week Disposition Disposition (needs filled in before D/C Order can be placed): Home, Self Care Charges/Coding Visit Charges Inpatient E&M: 85465 Disch Hosp >30min 12/10/24 0903 Cosigner Signature (if applicable): CC: Dr. Ciro Mendosa MD; Dr. Milind Lamb MD~ Signed [facility]06-06-2025 [facility]06-06-[address] [facility] Medical Records Department [address] [place] [address] Emergency Department Summary 12/08/24 MR#: [id number] Acct: [id number] Name: LINA MEADOWS Rep #:[id number] : 1960 64 From: Miki Sen DO PCP: Dr. Milind Lamb MD Status:ADM I N Location: MT3 [id number] Miki Sen DO on 12/10/24 at 0829 Critical care time 39 minutes 12/10/24 0829 Cosigner Signature (if applicable): cc: Dr. Milind Lamb MD ~* Signed HPI History of Present Illness Chief Complaint: Hyperglycemia Narrative Narrative: Patient is a 64-year-old female with past medical history of diabetes, hypertension, GERD, alcohol abuse, anxiety, depression who presents to the emergency department chief complaint of nausea vomiting diarrhea. Patient states that she woke up this morning not feeling well overall and notes that shetook some insulin this morning but notes that she did not eat much all day as she has had nausea vomiting diarrhea and not feeling well. She states that she was unable to check her glucose secondary to being out of her testing strips. [facility] Medical History Accelerated hypertension DKA (diabetic ketoacidosis) Sinus tachycardia seen on registered nurse cardiac Diabetic ketoacidosis associated with type 1 diabetes mellitus Pyuria Back pain Diabetes Hypokalemia Tobacco use Anxiety and depression ETOH abuse GERD (gastroesophageal reflux disease) HTN (hypertension) Diabetes mellitus, type 2 History of alcoholism COVID-19 Home Medications ?Medication ?Instructions ?Recorded ?Last Taken ?Type flash glucose sensor (FreeStyle #2 ea 04/11/22 Unknown Rx Moncho 2 Sensor kit) blood-glucose meter (FreeStyle #1 ea 07/28/22 Unknown Rx Lite Meter kit) lancets 28 gauge (FreeStyle #100 ea 07/28/22 Unknown R x Lancets) pen needle, diabetic 32 gauge x #50 ea 07/28/22 Unknow n Rx (BD Ultra-Fine Josefina Pen Needle) lancets 28 gauge (FreeStyle #100 ea 07/06/23 Unknown R x Lancets) sertraline 50 mg tablet 50 mg PO DAILY depression Unknown History blood sugar diagnostic (FreeStyle #100 ea 05/04/24 Unk nown Rx Lite Strips) insulin lispro 100 unit/mL 6 unit (0.06 mL) subcut TID AC 05/04/24 02/29/24 Rx subcutaneous pen (Humalog KwmatthewPen diabetes #15 mL (U-100) Insulin) lisinopril 5 mg tablet 5 mg PO DAILY #30 tabs 05/04 Unknown Rx metformin 1,000 mg tablet 1,000 mg PO DAILY #30 tabs 1 Unknown Rx insulin glargine U-300 conc 300 40 unit subcut QHS 10/29 Unknown History unit/mL (1.5 mL) subcutaneous pen (Toujeo SoloStar U-300 Insulin) rosuvastatin 5 mg tablet 5 mg PO DAILY 12/08/24 Unkno wn History Allergy/AdvReac Type Severity Reaction Status Date / Time No Known Allergies Allergy Verified 12/08/24 19:54 Family History Mother Diabetes Father Diabetes Cancer Hx mesothelioma. Surgical History Status post tubal ligation Social History household members: other details: Lives with her son. Her son is also an alcoholic. Smoking Status: Former smoker alcohol intake: former details: maybe drinks a glass of wine a day, but does not drink alcohol anymore substance use type: does not use ROS ROS ED ROS Narrative Constitutional: Complains of chills denies fevers, headaches Eyes: Denies change in vision double vision blurry vision Cardiovascular: Denies chest pain Respiratory: Denies coughing wheezing shortness of breath Abdomen: Complains of nausea vomiting diarrhea as noted above : Denies any urinary symptoms Neurological: Denies numbness, wheeze, tingling Musculoskeletal: Denies back pain Skin: Denies any rashes or lesions EXAM Physical Exam Narrative Exam Narrative: General: Patient lying in bed appeared to be uncomfortable not feeling well overall Head: Atraumatic, normocephalic Eyes: PERRL bilaterally, EOMI bilateral, no conjunctival injection noted Neck: Soft, supple, trachea midline Cardiovascular: Regular rate and rhythm Respiratory: Clear to auscultation bilaterally Abdomen: Soft, nondistended, diffuse tenderness to palpation no rebound or guarding on exam Extremities: +5/5 strength noted in the bilateral upper and lower extremities Neurological: Patient follow commands and that she was at [facility] year is 2024 Skin: Warm, dry, tact no rashes or lesions noted Const Vital Signs: 12/08/24 19:54 12/08/24 19:55 12/08/24 19:55 Temperature 98.8 F Temperature Source Oral Oral Pulse Rate 102 H Respiratory Rate 16 Respiratory Effort Normal Non-Labored Respiratory Pattern Normal Blood Pressure 161/71 H Blood Pressure Mean 101 Pulse Ox 100 Oxygen Delivery Method Room Air 12/08/24 21:00 12/08/24 22:00 12/08/24 23:00 Temperature Temperature Source Pulse Rate 92 100 100 Respiratory Rate 20 H 19 H 24 H Respiratory Effort Respiratory Pattern Blood Pressure 148/66 H 120/58 L 116/68 Blood Pressure Mean 93 78 84 Pulse Ox 100 99 100 Oxygen Delivery Method Room Air Room Air Room Air MDM MDM MDM Narrative Medical decision making narrative: Patient is a 64-year-old female who presented to the emergency department chief complaint of nauseavomiting diarrhea and not feeling well. On the differentialdiagnosis includes but not limited to viral gastroenteritis, upper respiratory infection second viral etiology, viral gastroenteritis, DKA. Once workup is obtained reviewed she will be reevaluated. Patient to get IV fluids for hydration. Patient's blood glucose was noted to be in the 500s she will be given 15 units of subcutaneous insulin. Patient's CBC reviewed showed no evidence leukocytosis white blood count normal at 7.9, hemoglobin stable at 11, platelet count normal at 230. Patient's VBG reviewed and showed a pH 7.21, sodium was low although this is likely secondary to her hyperglycemia indicating pseudohyponatremia, CO2 level low at 12.2 anion gap high at 26. Patient's glucose was 592 creatinine was elevated 1.36. Patient's AST and ALT were 13 and 14 respectively. Patient lipase normal at 49,beta hydroxybutyrate elevated to 7.9. Patient's urinalysis showed 150 ketones no evidence of infection patient will be placed on insulin drip. Patient's CBC reviewed showed no evidence of leukocytosis white blood patient's CT abdomen pelvis IV contrast showed no acute intra-abdominal abnormality. Appendix is unremarkable. Heterogeneous massat the lower pole of the left kidney measuring up to 6.6 cm featuring a segmental region of hypodensity and possible punctate calcification. Findings highly worrisome for renal cell carcinoma though other benign and malignant etiologies are also possible cholelithiasis. At this point in time we will discuss case with hospitalist for admission for DKA. Nursing notified me that the patient's blood glucose was noted to be 231 therefore she will be started on D5 NS with 40 mill equivalents of potassium at 125 mL with an hour Spoke with hospitalist Dr. Ibarra who accept patient for admission. I discussed the incidental findings with the patient of the renal mass. All question concerns answered. Lab Data Labs: Laboratory Results - last 24 hr 12/08/24 12/08/24 12/08/24 20:00 20:49 22:11 WBC 7.9 RBC 3.72 L Hgb 11.0 L Hct 32.5 L MCV 87.4 MCH 29.6 MCHC 33.8 RDW Std Deviation 39.8 RDW Coeff of Nellie 12.5 Plt Count 230 MPV 12.8 H Immature Gran % (Auto) 0.300 Neut % (Auto) 67.7 Lymph % (Auto) 22.8 [place] % (Auto) 7.7 Eos % (Auto) 0.9 Baso % (Auto) 0.6 Absolute Neuts (auto) 5.4 Absolute Lymphs (auto) 1.80 Nucleated RBC % 0 Sodium 128 L Potassium 4.9 Chloride 90 L Carbon Dioxide 12.2 L Anion Gap 26 H BUN 27 H Creatinine 1.36 H Estim Creat Clear Calc 35.48 L Est GFR (MDRD) Non-Af 44 L BUN/Creatinine Ratio 19.5 Glucose 592 H* Calcium 9.7 Total Bilirubin 0.25 AST 13 ALT 14 Alkaline Phosphatase 108 H Total Protein 7.5 Albumin 4.3 Globulin 3.2 Albumin/Globulin Ratio 1.4 Lipase 49 b-Hydroxybutyric mmol/L 7.9 H Urine Color Urine Clarity Urine pH Ur Specific [place] Urine Protein Urine Glucose (UA) Urine Ketones Urine Occult Blood Urine Nitrite Urine Bilirubin Urine Urobilinogen Ur Leukocyte Esterase Urine RBC Urine WBC Ur Squamous Epith Cells Urine Bacteria Urine Mucus POC Glucose > 500 H* 491 H* 380 H 12/08/24 12/08/24 22:25 23:30 WBC RBC Hgb Hct MCV MCH MCHC RDW Std Deviation RDW Coeff of Nellie Plt Count MPV Immature Gran % (Auto) Neut % (Auto) Lymph % (Auto) [place] % (Auto) Eos % (Auto) Baso % (Auto) Absolute Neuts (auto) Absolute Lymphs (auto) Nucleated RBC % Sodium Potassium Chloride Carbon Dioxide Anion Gap BUN Creatinine Estim Creat Clear Calc Est GFR (MDRD) Non-Af BUN/Creatinine Ratio Glucose Calcium Total Bilirubin AST ALT Alkaline Phosphatase Total Protein Albumin Globulin Albumin/Globulin Ratio Lipase b-Hydroxybutyric mmol/L Urine Color Yellow Urine Clarity Clear Urine pH 6.0 Ur Specific [place] 1.015 Urine Protein 30 H Urine Glucose (UA) 1000 H Urine Ketones 150 A* Urine Occult Blood Negative Urine Nitrite Negative Urine Bilirubin Negative Urine Urobilinogen Normal Ur Leukocyte Esterase Negative Urine RBC 0 SEEN Urine WBC 0 SEEN Ur Squamous Epith Cells 0 SEEN Urine Bacteria 0 SEEN Urine Mucus 0 SEEN POC Glucose 231 H ABG Data ABG results: ABG 12/08/24 20:44 Specimen Type LIYZ Sample Site Not entered VBG pH 7.21 L VBG pO2 31 VBG HCO3 13 L VBG Total CO2 14 L VBG O2 Sat (Calc) 47 L VBG Base Excess -15 L POC Mix VBG pCO2 Pt Tmp 31.1 L O2 Delivery Device Not entered Radiography Diagnostic Testing: Clinical Impression(s) from Imaging Studies Abdomen/Pelvis CT 12/08/24 20:31 IMPRESSION: 1. No acute intra-abdominal abnormality. The appendix is unremarkable. 2. Heterogeneous mass at the lower pole of the left kidney measuring up to 6.6 cm, featuring a segmental region of hypodensity and a possible punctate calcification. Findings are highly worrisome for renal cell carcinoma, though other benign and malignant etiologies such as oncocytoma are also possible. Recommend Urology referral. 3. Cholelithiasis. Yellow Alert: Left kidney mass The critical information above was relayed directly by me by telephone to Miki Sen on 12/08/2024t 11:16 pm with readback verification. Reading Location: [id number] Discharge Plan Triage Chief Complaint: Hyperglycemia ED Provider: Miki Sen Dx/Rx/DC Orders Clinical Impression: Diabetic ketoacidosis, Abnormal computed tomography of abdomen and pelvis Prescriptions: No Action (DME) FreeStyle Moncho 2 Sensor Kit See Rx Instructions .Route Qty: 2 5RF Rx Instructions: As directed (DME) lancets [FreeStyle Lancets] 28 gauge misc See Rx Instructions .Route Qty: 100 0RF Rx Instructions: As directed (DME) pen needle, diabetic [BD Ultra-Fine Josefina Pen Needle] 32 gauge x 5/32 needle See Rx Instructions .ROUTE .MEDSUPPLY Qty: 50 5RF Rx Instructions: daily (DME) blood-glucose meter [FreeStyle Lite Meter] Kit See Rx Instructions .Route Qty: 1 0RF Rx Instructions: As directed (DME) lancets [FreeStyle Lancets] 28 gauge misc See Rx Instructions .Route Qty: 100 0RF Rx Instructions: As directed sertraline 50 mg tablet 50 mg PO DAILY lisinopril 5 mg Tablet 5 mg PO DAILY Qty: 30 2RF metformin 1,000 mg tablet 1,000 mg PO DAILY Qty: 30 2RF (DME) FreeStyle Lite Strips Strip See Rx Instructions .Route Qty: 100 2RF Rx Instructions: As directed insulin lispro [Humalog KwikPen Insulin] 100 unit/mL Insulin Pen 6 unit subcut TIDAC Qty: 15 3RF insulin glargine U-300 conc [Toujeo SoloStar U-300 Insulin] 300 unit/mL (1.5 mL) insulin pen 40 unit subcut QHS rosuvastatin 5 mg tablet 5 mg PO DAILY Primary Care Provider: Milind Lamb Referrals: Milind Lamb MD [Primary Care Provider] - Print Language: Ecuadorean Disposition Disposition: Acute Care Hospital [facility] What to do if you have Problems For any increased pain, shortness of breath, bleeding, nausea or vomiting, chestpain, or any unexpected problems, contact your Primary Care Provider. Call [facility] ([phone]) or report tothe closest Emergency Room. Call 911 if necessary. 12/09/24 001 Cosigner Signature (if applicable): CC: Dr. Milind Lamb MD ~ Signed [facility]06-05-2025 Progress note Author Ciro Mendosa [facility] Note Date/Time December 09, 2024 9:33a m [facility] Medical Records Department [address] [place] [address] Progress Note - Hospitalist 12/09/24 0906 MR#: [id number] Acct: [id number] Name: LINA MEADOWS Rep #:[id number] : 1960 64 From: Ciro Mendosa MD PCP: Dr. Milind Lamb MD Status:ADM I N Location: ICU ICU05-1 Reason for Visit Reason for Visit: Diagnoses Type 2 diabetes mellitus with ketoacidosis without coma (12/09/24) Subjective Subjective Patient is a 64-year-old lady with history of diabetes mellitus type 2 currentlyon insulin who presented with nausea vomiting and diarrhea and progressive generalized weakness. Her assessment on admission was consistent with diabetic ketoacidosis admitted to the intensive care unit for further management Objective Data Objective Data Vital Signs: Vital Signs Temp Pulse Resp BP Pulse Ox O2 Del Method 98.1 F 86 17 116/58 L 98 Room Air 12/09/24 04:00 12/09/24 06:00 12/09/24 06:00 12/09/24 06:00 12/09/24 06:00 12/09/24 06:00 Oxygen Delivery Method Room Air Weight: 58 kg Body Mass Index (BMI) 22.6 Intake & Output: Intake and Output for Last 24 Hours 12/07/24 12/08/24 12/09/24 23:59 23:59 23:59 Intake Total 1307 / 1307 1338.54 / 1338.54 Output Total 0 / 0 Balance 1307 / 1307 1338.54 / 1338.54 Lab / Micro Data 12/09/24 05:00 12/09/24 08:20 Labs: Laboratory Results - last 24 hr 12/08/24 20:00: WBC 7.9, RBC 3.72 L, Hgb 11.0 L, Hct 32.5 L, MCV 87.4, MCH 29.6,MCHC 33.8, RDW Std Deviation 39.8, RDW Coeff of Nellie 12.5, Plt Count 230, MPV 12.8 H, Immature Gran % (Auto) 0.300, Neut % (Auto) 67.7, Lymph % (Auto) 22.8, [place] % (Auto) 7.7, Eos % (Auto) 0.9, Baso % (Auto) 0.6, Absolute Neuts (auto) 5.4, Absolute Lymphs (auto) 1.80, Nucleated RBC % 0, Sodium 128 L, Potassium 4.9, Chloride 90 L, Carbon Dioxide 12.2 L, Anion Gap 26 H, BUN 27 H, Creatinine 1.36 H, Estim Creat Clear Calc 35.48 L, Est GFR (MDRD) Non-Af 44 L, BUN/Creatinine Ratio 19.5, Glucose 592 H*, Calcium 9.7, Phosphorus 4.7 H, Magnesium 2.2, Total Bilirubin 0.25, AST 13, ALT 14, Alkaline Phosphatase 108 H,Total Protein 7.5, Albumin 4.3, Globulin 3.2, Albumin/Globulin Ratio 1.4, [id number], b-Hydroxybutyric mmol/L 7.9 H, POC Glucose > 500 H* 12/08/24 20:49: POC Glucose 491 H* 12/08/24 22:11: POC Glucose 380 H 12/08/24 22:25: Urine Color Yellow, Urine Clarity Clear, Urine pH 6.0, Ur Specific [place] 1.015, Urine Protein 30 H, Urine Glucose (UA) 1000 H, Urine Ketones 150 A*, Urine Occult Blood Negative, Urine Nitrite Negative, Urine Bilirubin Negative, Urine Urobilinogen Normal, Ur Leukocyte Esterase Negative, Urine RBC 0 SEEN, Urine WBC 0 SEEN, Ur Squamous Epith Cells 0 SEEN, Urine Bacteria 0 SEEN, Urine Mucus 0 SEEN 12/08/24 23:30: POC Glucose 231 H 12/09/24 00:35: POC Glucose 156 H 12/09/24 01:18: POC Glucose 125 H 12/09/24 01:25: Sodium 134, Potassium 3.8, Chloride 101, Carbon Dioxide 16.8 L, Anion Gap 17 H, BUN 21 H, Creatinine 1.04, Estim Creat Clear Calc 46.40 L, Est GFR (MDRD) Non-Af 61, BUN/Creatinine Ratio 20.6 H, Glucose 139 H, Calcium 9.5, Procalcitonin 0.08 12/09/24 02:01: POC Glucose 104 12/09/24 03:01: POC Glucose 98 12/09/24 03:56: POC Glucose 88 12/09/24 04:59: POC Glucose 103 12/09/24 05:00: WBC 7.5, RBC 3.33 L, Hgb 9.9 L, Hct 28.5 L, MCV 85.6, MCH 29.7, MCHC 34.7, RDW Std Deviation 38.5, RDW Coeff of Nellie 12.5, Plt Count 198, MPV 12.0, Immature Gran % (Auto) 0.300, Neut % (Auto) 52.3, Lymph % (Auto) 34.5, [place] % (Auto) 9.7, Eos % (Auto) 2.7, Baso % (Auto) 0.5, Absolute Neuts (auto) 3.9, Absolute Lymphs (auto) 2.57, Nucleated RBC % 0, Sodium 134, Potassium 4.6, Chloride 103, Carbon Dioxide 17.1 L, Anion Gap 14, BUN 19, Creatinine 1.01, Estim Creat Clear Calc 47.77 L, Est GFR (MDRD) Non-Af 63, BUN/Creatinine Ratio 18.6, Glucose 93, Hemoglobin A1c 12.8 H, Calcium 9.2, Total Bilirubin 0.22, AST 23, ALT 12, Alkaline Phosphatase 87, Total Protein 6.6, Albumin 3.8, Globulin 2.8, Albumin/Globulin Ratio 1.4 12/09/24 06:16: POC Glucose 102 12/09/24 07:05: POC Glucose 113 H 12/09/24 08:20: Sodium 135, Potassium 3.8, Chloride 104, Carbon Dioxide 17.2 L, Anion Gap 14, BUN 17, Creatinine 0.94, Estim Creat Clear Calc 51.33, Est GFR (MDRD) Non-Af 69, BUN/Creatinine Ratio 18.1, Glucose 123 H, Calcium 9.1 ABG Data ABG results: ABG 12/08/24 20:44 Specimen Type LIZY Sample Site Not entered VBG pH 7.21 L VBG pO2 31 VBG HCO3 13 L VBG Total CO2 14 L VBG O2 Sat (Calc) 47 L VBG Base Excess -15 L POC Mix VBG pCO2 Pt Tmp 31.1 L O2 Delivery Device Not entered Radiography Diagnostic Testing: Radiology Impression Abdomen/Pelvis CT 12/08/24 20:31 IMPRESSION: 1. No acute intra-abdominal abnormality. The appendix is unremarkable. 2. Heterogeneous mass at the lower pole of the left kidney measuring up to 6.6 cm, featuring a segmental region of hypodensity and a possible punctate calcification. Findings are highly worrisome for renal cell carcinoma, though other benign and malignant etiologies such as oncocytoma are also possible. Recommend Urology referral. 3. Cholelithiasis. Yellow Alert: Left kidney mass The critical information above was relayed directly by me by telephone to Miki Sen on 12/08/2024 at 11:16 pm with readback verification. Reading Location: [facility] Physical Exam Narrative GENERAL: cooperative but appears tired HEENT: Atraumatic; normocephalic EYES; Anicteric, Normal Conjunctiva NECK; supple, normal thyroid, RESPIRATORY: Diminished to auscultation CARDIOVASCULAR: Regular S1 S2, GI: soft, normoactive bowel sounds, : No Renal angle tenderness; EXTREMITIES: No edema, no clubbing, MUSCULOSKELETAL: no muscle wasting NEURO: Awake; no lateralizing signs. SKIN: No Rash PSYCH; Flat affect Assessment & Plan Assessment/Plan (1) Diabetic ketoacidosis: PLAN: Plan Patient is a 64-year-old lady with history of diabetes mellitus type 2 currentlyon insulin who presented with nausea vomiting and diarrhea and progressive generalized weakness. Her assessment on admission was consistent with diabetic ketoacidosis admitted to the intensive care unit for further management 1. Diabetic ketoacidosis ? Patient was admitted to the intensive care unit treatment initiated with IV fluid resuscitation per protocol systemic insulin (insulin drip) and monitoring of electrolyte with correction of electrolyte abnormalities. Patient response to therapy being monitored with serial BMP?every 4, and close monitoring of patient anion gap 2. Acute gastroenteritis ? Suspected to be viral gastroenteritis. Patient treated symptomatically 3. Diabetes mellitus type 2 ? Uncontrolled with hemoglobin A1c of 12 patient presented with DKA management as discussed above. Plan is to resume patient home insulin regimen once DKA resolves 4. Acute renal insufficiency ? Secondary to severe volume depletion from DKA patient managed with IV fluids 5. Dyslipidemia ?Patient is on statin therapy?rosuvastatin, continued at home dose 6. Depression ? Patient is on sertraline continue 7. Essential hypertension ? Patient is on lisinopril with continue 8. Anemia ? Secondary to chronic disorder monitoring H&H and transfuse if patient becomes symptomatic or hemoglobin falls below 7 9 DVT prophylaxis ? Subcu Lovenox Time spent in the patient's overall evaluation,decision-making process, review of diagnostic data, adjustment of management, discussion with other providers, nursing nursing and ancillary staff involved in patient's care documentation, 52 Minutes Charges/Coding Visit Charges Inpatient E&M: 08476 Subs Hosp 12/09/24 0998 <Electronically signed by Ciro Mendosa MD> Cosigner Signature (if applicable): CC: ~ Signed [facility] Work Phone: [phone] Progress note [facility] Medical Records Department [address] [place] [address] Progress Note - Hospitalist 12/09/24905 MR#: [id number] Acct: [id number] Name: LINA MEADOWS Rep #:[id number] : 1960 64 From: Ciro Mendosa MD PCP: Dr. Milind Lamb MD Status:ADM I N Location: ICU ICU05- Reason for Visit Reason for Visit: Diagnoses Type 2 diabetes mellitus with ketoacidosis without coma (12/09/24) Subjective Subjective Patient is a 64-year-old lady with history of diabetes mellitus type 2 currentlyon insulin who presented with nausea vomiting and diarrhea and progressive generalized weakness. Her assessment on admission was consistent with diabetic ketoacidosis admitted to the intensive care unit for further manag ement Objective Data Objective Data Vital Signs: Vital Signs Temp Pulse Resp BP Pulse Ox O2 Del Method 98.1 F 86 17 116/58 L 98 Room Air 12/09/24 04:00 12/09/24 06:00 12/09/24 06:00 12/09/24 06:00 12/09/24 06:00 12/09/24 06:00 Oxygen Delivery Method Room Air Weight: 58 kg Body Mass Index (BMI) 22.6 Intake & Output: Intake and Output for Last 24 Hours 12/07/24 12/08/24 12/09/24 23:59 23:59 23:59 Intake Total 1307 / 1307 1338.54 / 1338.54 Output Total 0 / 0 Balance 1307 / 1307 1338.54 / 1338.54 Lab / Micro Data 12/09/24 05:00 12/09/24 08:20 Labs: Laboratory Results - last 24 hr 12/08/24 20:00: WBC 7.9, RBC 3.72 L, Hgb 11.0 L, Hct 32.5 L, MCV 87.4, MCH 29.6,MCHC 33.8, RDW Std Deviation 39.8, RDW Coeff of Nellie 12.5, Plt Count 230, MPV 12.8 H, Immature Gran % (Auto) 0.300, Neut% (Auto) 67.7, Lymph % (Auto) 22.8, [place] % (Auto) 7.7, Eos % (Auto) 0.9, Baso % (Auto) 0.6, Absolute Neuts (auto) 5.4, Absolute Lymphs (auto) 1.80, Nucleated RBC % 0, Sodium 128 L, Potassium 4.9, Chloride 90 L, Carbon Dioxide 12.2 L, Anion Gap 26 H, BUN 27 H, Creatinine 1.36 H, Estim Creat Clear Calc 35.48 L, Est GFR (MDRD) Non-Af 44 L, BUN/Creatinine Ratio 19.5, Glucose 592 H*, Calcium 9.7, Phosphorus 4.7 H, Magnesium 2.2, Total Bilirubin 0.25, AST 13, ALT 14, Alkaline Phosphatase 108 H,Total Protein 7.5, Albumin 4.3, Globulin 3.2, Albumin/Globulin Ratio 1.4, [id number], b-Hydroxybutyric mmol/L 7.9 H, POC Glucose > 500 H* 12/08/24 20:49: POC Glucose 491 H* 12/08/24 22:11: POC Glucose 380 H 12/08/24 22:25: Urine Color Yellow, Urine Clarity Clear, Urine pH 6.0, Ur Specific [place] 1.015, Urine Protein 30 H, Urine Glucose (UA) 1000 H, Urine Ketones 150 A*, Urine Occult Blood Negative, Urine Nitrite Negative, Urine Bilirubin Negative, Urine Urobilinogen Normal, Ur Leukocyte Esterase Negative, Urine RBC 0 SEEN, Urine WBC 0 SEEN, Ur Squamous Epith Cells 0 SEEN, Urine Bacteria 0 SEEN, Urine Mucus 0 SEEN 12/08/24 23:30: POC Glucose 231 H 12/09/24 00:35: POC Glucose 156 H 12/09/24 01:18: POC Glucose 125 H 12/09/24 01:25: Sodium 134, Potassium 3.8, Chloride 101, Carbon Dioxide 16.8 L, Anion Gap 17 H, BUN21 H, Creatinine 1.04, Estim Creat Clear Calc 46.40 L, Est GFR (MDRD) Non-Af 61, BUN/Creatinine Ratio 20.6 H, Glucose 139 H, Calcium 9.5, Procalcitonin 0.08 12/09/24 02:01: POC Glucose 104 12/09/24 03:01: POC Glucose 98 06/05/25 03:56: POC Glucose 88 12/09/24 04:59: POC Glucose 103 12/09/24 05:00: WBC 7.5, RBC 3.33 L, Hgb 9.9 L, Hct 28.5 L, MCV 85.6, MCH 29.7, MCHC 34.7, RDW Std Deviation 38.5, RDW Coeff of Nellie 12.5, Plt Count 198, MPV 12.0, Immature Gran % (Auto) 0.300, Neut %(Auto) 52.3, Lymph % (Auto) 34.5, [place] % (Auto) 9.7, Eos % (Auto) 2.7, Baso % (Auto) 0.5, Absolute Neuts (auto) 3.9, Absolute Lymphs (auto) 2.57, Nucleated RBC % 0, Sodium 134, Potassium 4.6, Chloride 103, Carbon Dioxide 17.1 L, Anion Gap 14, BUN 19, Creatinine 1.01, Estim Creat Clear Calc 47.77 L,Est GFR (MDRD) Non-Af 63, BUN/Creatinine Ratio 18.6, Glucose 93, Hemoglobin A1c 12.8 H, Calcium 9.2, Total Bilirubin 0.22, AST 23, ALT 12, Alkaline Phosphatase 87, Total Protein 6.6, Albumin 3.8, Globulin 2.8, Albumin/Globulin Ratio 1.4 12/09/24 06:16: POC Glucose 102 12/09/24 07:05: POC Glucose 113 H 12/09/24 08:20: Sodium 135, Potassium 3.8, Chloride 104, Carbon Dioxide 17.2 L, Anion Gap 14, BUN 17, Creatinine 0.94, Estim Creat Clear Calc 51.33, Est GFR (MDRD) Non-Af 69, BUN/Creatinine Ratio 18.1, Glucose 123 H, Calcium 9.1 ABG Data ABG results: ABG 12/08/24 20:44 Specimen Type LIZY Sample Site Not entered VBG pH 7.21 L VBG pO2 31 VBG HCO3 13 L VBG Total CO2 14 L VBG O2 Sat (Calc) 47 L VBG Base Excess -15 L POC Mix VBG pCO2 Pt Tmp 31.1 L O2 Delivery Device Not entered Radiography Diagnostic Testing: Radiology Impression Abdomen/Pelvis CT 12/08/24 20:31 IMPRESSION: 1. No acute intra-abdominal abnormality. The appendix is unremarkable. 2. Heterogeneous mass at the lower pole of the left kidney measuring up to 6.6 cm, featuring a segmental region of hypodensity and a possible punctate calcification. Findings are highly worrisome for renal cell carcinoma, though other benign and malignant etiologies such as oncocytoma are also possible. Recommend Urology referral. 3. Cholelithiasis. Yellow Alert: Left kidney mass The critical information above was relayed directly by me by telephone to Miki Sen on 12/08/2024t 11:16 pm with readback verification. Reading Location: [facility] Physical Exam Narrative GENERAL: cooperative but appears tired HEENT: Atraumatic; normocephalic EYES; Anicteric, Normal Conjunctiva NECK; supple, normal thyroid, RESPIRATORY: Diminished to auscultation CARDIOVASCULAR: Regular S1 S2, GI: soft, normoactive bowel sounds, : No Renal angle tenderness; EXTREMITIES: No edema, no clubbing, MUSCULOSKELETAL: no muscle wasting NEURO: Awake; no lateralizing signs. SKIN: No Rash PSYCH; Flat affect Assessment & Plan Assessment/Plan (1) Diabetic ketoacidosis: PLAN: Plan Patient is a 64-year-old lady with history of diabetes mellitus type 2 currentlyon insulin who presented with nausea vomiting and diarrhea and progressive generalized weakness. Her assessment on admission was consistent with diabetic ketoacidosis admitted to the intensive care unit for further manag ement 1. Diabetic ketoacidosis ? Patient was admitted to the intensive care unit treatment initiated with IV fluid resuscitation per protocol systemic insulin (insulin drip) and monitoring of electrolyte with correction of electrolyte abnormalities. Patient response to therapy being monitored with serial BMP?every 4, and close monitoring of patient anion gap 2. Acute gastroenteritis ? Suspected to be viral gastroenteritis. Patient treated symptomatically 3. Diabetes mellitus type 2 ? Uncontrolled with hemoglobin A1c of 12 patient presented with DKA management as discussed above. Plan is to resume patient home insulin regimen once DKA resolves 4. Acute renal insufficiency ? Secondary to severe volume depletion from DKA patient managed with IV fluids 5. Dyslipidemia ?Patient is on statin therapy?rosuvastatin, continued at home dose 6. Depression ? Patient is on sertraline continue 7. Essential hypertension ? Patient is on lisinopril with continue 8. Anemia ? Secondary to chronic disorder monitoring H&H and transfuse if patient becomes symptomatic or hemoglobin falls below 7 9 DVT prophylaxis ? Subcu Lovenox Time spent in the patient's overall evaluation,decision-making process, review of diagnostic data, adjustment of management, discussion with other providers, nursing nursing and ancillary staff involved in patient's care documentation, 52 Minutes Charges/Coding Visit Charges Inpatient E&M: 16733 Subs Hosp L3 12/09/24 0933 Cosigner Signature (if applicable): CC: ~ Signed [facility]06-05-2025 History and physical note Author Zelda Ibarra [facility] Note Date/Time December 09, 2024 1:00a m [facility] Medical Records Department [address] [facility] [place] [address] H&P Exam - Hospitalist 12/09/24 0010 MR#: [id number] Acct: [id number] Name: LINA MEADOWS Rep #:[id number] : 1960 64 From: Zelda Ibarra MD PCP: Dr. Milind Lamb MD Status:ADM I N Location: ICU ICU05-1 HPI - General General Date of Admission: 12/09/24 Date of Service: 12/09/24 Chief Complaint: N/V/D HPI Narrative The patient is a 64 y/o F w/ PMHx: IDDM, Anxiety and Depression, Former tobacco use, Chart reported history of EtOH abuse, HTN, HLD, GERD who presents to the [facility] ED on 12/09/2024 with history of 24 hours of persistent nausea, emesis and loose stools noting that she woke the morning previous feeling poorly and did take insulin in the morning but did not eat much all day and had persistent symptoms unfortunately she did not check her blood sugars as she said she was unable to find any strips and given how she continued to feel unwell prompted eventual ED evaluation to be cautious. She notes she had at least 6 loose stools. She notes an emesis occurred only once but she has had persistent nausea. She denies any recent ill contacts. She notes she has not recently eaten out or had any food that she thought was bad. Workup in the ED included T98.8, heart 102, BP 161/71, respiratory rate 16, height percent on room air with most recent repeat vitals heart rate 100, BP 160/68, respiratory rate 24, 100% on room air, CBC with WBC 7.9, hemoglobin, MCV 87.4, platelet 230 without marked shift, VBG with pH 7.21, bicarb 13, total CO2 14, CMP with sodium 120, chloride 90, carbon oxide 12.2, anion gap 26, BUN/creatinine 27/1.36, GFR 44, glucose 592, alk phos 108, beta hydroxybutyrate 7.9, urinalysis with protein 30,glucose of thousand, ketone 150, CT abdomen and pelvis with no acute intra-abdominal findings however there is a heterogeneous mass at the lower pole of the left kidney measuring 6.6 cm featuring a segmental region of hypodensity possibly punctate calcification worrisome for renal cell carcinoma. In the ED patient ministered 1 L normal saline, insulin 15 units subcu x 1 and eventually placed on insulin drip. [facility] Medical History Sinus tachycardia seen on registered nurse cardiac Back pain Tobacco use Anxiety and depression GERD (gastroesophageal reflux disease) HTN (hypertension) Diabetes mellitus, type 2 History of alcoholism COVID-19 Home Medications ?Medication ?Instructions ?Recorded ?Last Taken ?Type flash glucose sensor (FreeStyle #2 ea 04/11/22 Unknown Rx Moncho 2 Sensor kit) blood-glucose meter (FreeStyle #1 ea 07/28/22 Unknown Rx Lite Meter kit) lancets 28 gauge (FreeStyle #100 ea 07/28/22 Unknown R x Lancets) pen needle, diabetic 32 gauge x #50 ea 07/28/22 Unknow n Rx (BD Ultra-Fine Josefina Pen Needle) lancets 28 gauge (FreeStyle #100 ea 07/06/23 Unknown R x Lancets) sertraline 50 mg tablet 50 mg PO DAILY depression Unknown History blood sugar diagnostic (FreeStyle #100 ea 05/04/24 Unk nown Rx Lite Strips) insulin lispro 100 unit/mL 6 unit (0.06 mL) subcut TID AC 05/04/24 02/29/24 Rx subcutaneous pen (Humalog KwikPen diabetes #15 mL (U-100) Insulin) lisinopril 5 mg tablet 5 mg PO DAILY #30 tabs 10/29 /24 Unknown Rx metformin 1,000 mg tablet 1,000 mg PO DAILY #30 tabs 1 Unknown Rx insulin glargine U-300 conc 300 40 unit subcut QHS 10/29 Unknown History unit/mL (1.5 mL) subcutaneous pen (Toujeo SoloStar U-300 Insulin) rosuvastatin 5 mg tablet 5 mg PO DAILY 12/08/24 Unkno wn History Allergy/AdvReac Type Severity Reaction Status Date / Time No Known Allergies Allergy Verified 12/08/24 19:54 Family History Mother Diabetes Father Diabetes Cancer Hx mesothelioma. Surgical History Status post tubal ligation Social History household members: other details: Lives with her son. Her son is also an alcoholic. Smoking Status: Former smoker alcohol intake: current alcohol intake frequency: 0-2 drinks per day Alcohol type: wine details: Prior heavy EtOH abuse, now max 1 glass wine, last 2 wks prior (12/09/24) substance use type: does not use ROS ROS Narrative Admission Review of Systems: CONSTITUTIONAL: No weight loss, fever, chills, + weakness or fatigue. HEENT: Eyes: No visual loss, blurred vision, double vision or yellow sclerae. Ears, Nose, Throat: No hearing loss, sneezing, congestion, runny nose or sore throat. SKIN: No rash or itching, lesions, wounds. CARDIOVASCULAR: No chest pain, chest pressure or chest discomfort, palpitations,edema, orthopnea, syncopal events. RESPIRATORY: No shortness of breath, cough or sputum, wheezing, hemoptysis. GASTROINTESTINAL: + anorexia, nausea, vomiting, diarrhea. No abdominal pain, melena, BRBPR. GENITOURINARY: No dysuria, frequency, urgency or retention. NEUROLOGICAL: No headache, dizziness, syncope, paralysis, ataxia, numbness or tingling in the extremities, focal weakness, change in bowel or bladder control,seizure. MUSCULOSKELETAL: + muscle, back pain, joint pain or stiffness. HEMATOLOGIC: + Chronic anemia. No marked easy history of bleeding or bruising. LYMPHATICS: No enlarged nodes. No history of splenectomy. PSYCHIATRIC: + History of anxiety and depression. ENDOCRINOLOGIC: No reports of sweating, cold or heat intolerance. No polyuria orpolydipsia. ALLERGIES: No history of asthma, hives, eczema or rhinitis. Vital Signs Vital Signs Vital Signs: 12/08/24 19:54 12/08/24 19:55 12/08/24 19:55 Temperature 98.8 F Temperature Source Oral Oral Pulse Rate 102 H Respiratory Rate 16 Respiratory Effort Normal Non-Labored Respiratory Pattern Normal Blood Pressure 161/71 H Blood Pressure Mean 101 Pulse Ox 100 Oxygen Delivery Method Room Air 12/08/24 21:00 12/08/24 22:00 12/08/24 23:00 Temperature Temperature Source Pulse Rate 92 100 100 Respiratory Rate 20 H 19 H 24 H Respiratory Effort Respiratory Pattern Blood Pressure 148/66 H 120/58 L 116/68 Blood Pressure Mean 93 78 84 Pulse Ox 100 99 100 Oxygen Delivery Method Room Air Room Air Room Air Weight Weight: 133 lb 2.547 oz Body Mass Index (BMI) 23.6 Physical Exam Narrative Physical Examination: General: Awake, alert, oriented x 3 and cooperative, laying in the ED bed, fatigued and ill-appearing. Skin: Normal color, normal turgor, no icterus, no cyanosis except occasional abrasion. HEENT: AT/NC, EOMI, PERRLA, dry MM, no carotid bruits or JVD noted. Lungs: Mildly diminished, greater bases, appropriate effort, ible. Abdomen: Soft, NTTP, ND, hyperactive BS, no HSM. Extremities: No cyanosis, clubbing, or edema. Neurological: Patient awake, alert, oriented as noted, cognitive function intact; pupils equally reactive to light and accommodation, cranial nerves grossly normal, moving all 4 extremities, no focal deficits, strength moderatelyto severely globally decreased secondary to acute presentation complaints Psychiatric: Affect appears flat, fatigued, ill-appearing, no acute evidence of depressive or anxiety feelings but does have underlying history. Results Lab / Micro Data 12/08/24 20:00 12/08/24 20:00 Labs: Laboratory Results - last 24 hr 12/08/24 20:00: WBC 7.9, RBC 3.72 L, Hgb 11.0 L, Hct 32.5 L, MCV 87.4, MCH 29.6,MCHC 33.8, RDW Std Deviation 39.8, RDW Coeff of Nellie 12.5, Plt Count 230, MPV 12.8 H, Immature Gran % (Auto) 0.300, Neut % (Auto) 67.7, Lymph % (Auto) 22.8, [place] % (Auto) 7.7, Eos % (Auto) 0.9, Baso % (Auto) 0.6, Absolute Neuts (auto) 5.4, Absolute Lymphs (auto) 1.80, Nucleated RBC % 0, Sodium 128 L, Potassium 4.9, Chloride 90 L, Carbon Dioxide 12.2 L, Anion Gap 26 H, BUN 27 H, Creatinine 1.36 H, Estim Creat Clear Calc 35.48 L, Est GFR (MDRD) Non-Af 44 L, BUN/Creatinine Ratio 19.5, Glucose 592 H*, Calcium 9.7, Total Bilirubin 0.25, AST 13, ALT 14, Alkaline Phosphatase 108 H, Total Protein 7.5, Albumin 4.3, Globulin 3.2, Albumin/Globulin Ratio 1.4, Lipase 49, b-Hydroxybutyric mmol/L 7.9H, POC Glucose > 500 H* 12/08/24 20:49: POC Glucose 491 H* 12/08/24 22:11: POC Glucose 380 H 12/08/24 22:25: Urine Color Yellow, Urine Clarity Clear, Urine pH 6.0, Ur Specific [place] 1.015, Urine Protein 30 H, Urine Glucose (UA) 1000 H, Urine Ketones 150 A*, Urine Occult Blood Negative, Urine Nitrite Negative, Urine Bilirubin Negative, Urine Urobilinogen Normal, Ur Leukocyte Esterase Negative, Urine RBC 0 SEEN, Urine WBC 0 SEEN, Ur Squamous Epith Cells 0 SEEN, Urine Bacteria 0 SEEN, Urine Mucus 0 SEEN 12/08/24 23:30: POC Glucose 231 H ABG Data ABG results: ABG 12/08/24 20:44 Specimen Type LIZY Sample Site Not entered VBG pH 7.21 L VBG pO2 31 VBG HCO3 13 L VBG Total CO2 14 L VBG O2 Sat (Calc) 47 L VBG Base Excess -15 L POC Mix VBG pCO2 Pt Tmp 31.1 L O2 Delivery Device Not entered Imaging Radiology Impression Abdomen/Pelvis CT 12/08/24 20:31 IMPRESSION: 1. No acute intra-abdominal abnormality. The appendix is unremarkable. 2. Heterogeneous mass at the lower pole of the left kidney measuring up to 6.6 cm, featuring a segmental region of hypodensity and a possible punctate calcification. Findings are highly worrisome for renal cell carcinoma, though other benign and malignant etiologies such as oncocytoma are also possible. Recommend Urology referral. 3. Cholelithiasis. Yellow Alert: Left kidney mass The critical information above was relayed directly by me by telephone to Miki Sen on 12/08/2024 at 11:16 pm with readback verification. Reading Location: [id number] Assessment & Plan Assessment/Plan (1) Diabetic ketoacidosis: PLAN: Plan The patient is a 64 y/o F w/ PMHx: IDDM, Anxiety and Depression, Former tobacco use, Chart reported history of EtOH abuse, HTN, HLD, GERD who presents to the [facility] ED on 12/09/2024 with history of persistent nausea, emesis and loose stools noting that she woke the morning previous feeling poorly and did take insulin inthe morning but did not eat much all day and had persistent symptoms unfortunately she did not check her blood sugars as she said she was unable to find any strips and given how she continued to feel unwell prompted eventual ED evaluation to be cautious. #1. IDDM with DKA: Will admit to the ICU, continue on insulin drip, check serial K+, glucose w/ IVF changes pending these levels, serial chemistry, obtainmag, phos daily w/ repletion as needed, transition to home SC regimen when gap closed w/ overlap on drip, nutrition consultation. Encouraged diet and insulin regimen compliance. Hemoglobin A1c requested. #2. N/V/D, possible acute gastroenteritis: Will continue hydration, will obtainc diff, stool cx, O+P with repeat AM CBC, will have anti-emetics and if all studies are unremarkable will initiate loperamide regimen if needed. #3. Acute renal insufficiency/elevated creatinine on CKD stage II per previous GFR trending: Likely secondary to #1 and GI losses as noted, admission BUN/creatinine 27/1.36, GFR 44, normally previously more consistent with stage II, baseline creatinine previously noted 0.8-1.0, will continue evaluation and treatment as noted above, repeat BMP serially given #1 and CMP in AM. #4. Incidentally noted heterogeneous mass in the left kidney: CT scan of the abdomen and pelvis with heterogeneous mass of the lower pole of the left kidney measuring 6.6 cm featuring a segmental region of hypodensity with possible punctate calcifications worrisome for renal cell carcinoma. Will need follow-upwith urology. #5. Chronic normocytic anemia: Admission 11.0, MCV 87.4, baseline hemoglobin most recent noted 10-11, stable, continue to trend. #6. Anxiety and depression: Will continue patient on sertraline regimen. #7. Hypertension: Given renal insufficiency will temporally hold lisinopril, add back once appropriate, PRN IV hydralazine. #8. Hyperlipidemia: Will continue patient on statin therapy. #9. Former tobacco use: Encourage continued tobacco cessation. #10. Former heavy alcohol abuse: Patient reports occasional glass of wine, lastnoted 2 weeks previous, given her history would benefit from complete sobriety. #11. GERD: Will maintain on IV PPI given #1. #12. DVT prophylaxis: Lovenox. Charges/Coding Visit Charges Inpatient E&M: 05334 Init Hosp L3 12/09/24 0100 <Electronically signed by Zelda Ibarra MD> Cosigner Signature (if applicable): CC: Dr. Zelda Ibarra MD; Dr. Milind Lamb MD~ Signed [facility] Work Phone: 1(474) 394-579106-05-2025 Evaluation note* Diagnosis Onset Date Resolution Status Admit Date Abnormal computed tomography of abdomen and pelvis acute December 09 12:10am Diabetic ketoacidosis acute Dec 12:10am [facility] Work Phone: [phone]) 745-801506-05-2025 Evaluation note* Diagnosis Onset Date Resolution Status Admit Date Abnormal computed tomography of abdomen and pelvis acute December 09 12:10am Diabetic ketoacidosis resolved Dec 12:10am [facility] Work Phone: [phone]) 760-584406-05-2025 History and physical note [facility] Medical Records Department [address] [address] H&P Exam - Hospitalist 12/09/24 0010 MR#: [id number] Acct: [id number] Name: LINA MEADOWS Rep #:[id number] : 1960 64 From: Zelda Ibarra MD PCP: Dr. Milind Lamb MD Status:ADM I N Location: ICU ICU-1 HPI - General General Date of Admission: 12/09/24 Date of Service: 12/09/24 Chief Complaint: N/V/D HPI Narrative The patient is a 64 y/o F w/ PMHx: IDDM, Anxiety and Depression, Former tobacco use, Chart reportedhistory of EtOH abuse, HTN, HLD, GERD who presents to the [facility] ED on 12/09/2024 with history of 24 hours of persistent nausea, emesis and loose stools noting that she woke the morning previous feeling poorly and did take insulin in the morning but did not eat much all day and had persistent symptoms unfortunately she did not check her blood sugars as she said she was unable to find any strips and given how she continued to feel unwell prompted eventual ED evaluation to be cautious. She notes she had at least 6 loose stools. She notes an emesis occurred only once but she has had persistent nausea. She denies any recent ill contacts. She notes she has not recently eaten out or had any food that she thought was bad. Workup in the ED included T98.8, heart 102, BP 161/71, respiratory rate 16, height percent on room air with most recent repeat vitals heart rate 100, BP 160/68, respiratory rate 24, 100% on room air, CBC with WBC 7.9, hemoglobin, MCV 87.4, platelet 230 without marked shift, VBG with pH 7.21, bicarb 13, total CO2 14, CMP with sodium 120, chloride 90, carbon oxide 12.2, anion gap 26, BUN/creatinine 27/1.36, GFR 44, glucose 592, alk phos 108, beta hydroxybutyrate 7.9, urinalysis with protein 30,glucose of thousand, ketone 150, CT abdomen and pelvis with no acute intra-abdominal findings however there is a heterogeneous mass at the lower pole of the left kidney measuring 6.6cm featuring a segmental region of hypodensity possibly punctate calcification worrisome for renal cell carcinoma. In the ED patient ministered 1 L normal saline, insulin 15 units subcu x 1 and eventually placed on insulin drip. [facility] Medical History Sinus tachycardia seen on registered nurse cardiac Back pain Tobacco use Anxiety and depression GERD (gastroesophageal reflux disease) HTN (hypertension) Diabetes mellitus, type 2 History of alcoholism COVID-19 Home Medications ?Medication ?Instructions ?Recorded ?Last Taken ?Type flash glucose sensor (FreeStyle #2 ea 04/11/22 Unknown Rx Moncho 2 Sensor kit) blood-glucose meter (FreeStyle #1 ea 07/28/22 Unknown Rx Lite Meter kit) lancets 28 gauge (FreeStyle #100 ea 07/28/22 Unknown R x Lancets) pen needle, diabetic 32 gauge x #50 ea 07/28/22 Unknow n Rx /32 (BD Ultra-Fine Josefina Pen Needle) lancets 28 gauge (FreeStyle #100 ea 07/06/23 Unknown R x Lancets) sertraline 50 mg tablet 50 mg PO DAILY depression Unknown History blood sugar diagnostic (FreeStyle #100 ea 05/04/24 Unk nown Rx Lite Strips) insulin lispro 100 unit/mL 6 unit (0.06 mL) subcut TID AC 05/04/24 02/29/24 Rx subcutaneous pen (Humalog KwikPen diabetes #15 mL (U-100) Insulin) lisinopril 5 mg tablet 5 mg PO DAILY #30 tabs 05/04 Unknown Rx metformin 1,000 mg tablet 1,000 mg PO DAILY #30 tabs 1 Unknown Rx insulin glargine U-300 conc 300 40 unit subcut QHS 10/29 Unknown History unit/mL (1.5 mL) subcutaneous pen (Toujeo SoloStar U-300 Insulin) rosuvastatin 5 mg tablet 5 mg PO DAILY 12/08/24 Unkno wn History Allergy/AdvReac Type Severity Reaction Status Date / Time No Known Allergies Allergy Verified 12/08/24 19:54 Family History Mother Diabetes Father Diabetes Cancer Hx mesothelioma. Surgical History Status post tubal ligation Social History household members: other details: Lives with her son. Her son is also an alcoholic. Smoking Status: Former smoker alcohol intake: current alcohol intake frequency: 0-2 drinks per day Alcohol type: wine details: Prior heavy EtOH abuse, now max 1 glass wine, last 2 wks prior (12/09/24) substance use type: does not use ROS ROS Narrative Admission Review of Systems: CONSTITUTIONAL: No weight loss, fever, chills, + weakness or fatigue. HEENT: Eyes: No visual loss, blurred vision, double vision or yellow sclerae. Ears, Nose, Throat: No hearing loss, sneezing, congestion, runny nose or sore throat. SKIN: No rash or itching, lesions, wounds. CARDIOVASCULAR: No chest pain, chest pressure or chest discomfort, palpitations,edema, orthopnea, syncopal events. RESPIRATORY: No shortness of breath, cough or sputum, wheezing, hemoptysis. GASTROINTESTINAL: + anorexia, nausea, vomiting, diarrhea. No abdominal pain, melena, BRBPR. GENITOURINARY: No dysuria, frequency, urgency or retention. NEUROLOGICAL: No headache, dizziness, syncope, paralysis, ataxia, numbness or tingling in the extremities, focal weakness, change in bowel or bladder control,seizure. MUSCULOSKELETAL: + muscle, back pain, joint pain or stiffness. HEMATOLOGIC: + Chronic anemia. No marked easy history of bleeding or bruising. LYMPHATICS: No enlarged nodes. No history of splenectomy. PSYCHIATRIC: + History of anxiety and depression. ENDOCRINOLOGIC: No reports of sweating, cold or heat intolerance. No polyuria orpolydipsia. ALLERGIES: No history of asthma, hives, eczema or rhinitis. Vital Signs Vital Signs Vital Signs: 12/08/24 19:54 12/08/24 19:55 12/08/24 19:55 Temperature 98.8 F Temperature Source Oral Oral Pulse Rate 102 H Respiratory Rate 16 Respiratory Effort Normal Non-Labored Respiratory Pattern Normal Blood Pressure 161/71 H Blood Pressure Mean 101 Pulse Ox 100 Oxygen Delivery Method Room Air 12/08/24 21:00 12/08/24 22:00 12/08/24 23:00 Temperature Temperature Source Pulse Rate 92 100 100 Respiratory Rate 20 H 19 H 24 H Respiratory Effort Respiratory Pattern Blood Pressure 148/66 H 120/58 L 116/68 Blood Pressure Mean 93 78 84 Pulse Ox 100 99 100 Oxygen Delivery Method Room Air Room Air Room Air Weight Weight: 133 lb 2.547 oz Body Mass Index (BMI) 23.6 Physical Exam Narrative Physical Examination: General: Awake, alert, oriented x 3 and cooperative, laying in the ED bed, fatigued and ill-appearing. Skin: Normal color, normal turgor, no icterus, no cyanosis except occasional abrasion. HEENT: AT/NC, EOMI, PERRLA, dry MM, no carotid bruits or JVD noted. Lungs: Mildly diminished, greater bases, appropriate effort, ible. Abdomen: Soft, NTTP, ND, hyperactive BS, no HSM. Extremities: No cyanosis, clubbing, or edema. Neurological: Patient awake, alert, oriented as noted, cognitive function intact; pupils equally reactive to light and accommodation, cranial nerves grossly normal, moving all 4 extremities, no focaldeficits, strength moderatelyto severely globally decreased secondary to acute presentation complaints Psychiatric: Affect appears flat, fatigued, ill-appearing, no acute evidence of depressive or anxiety feelings but does have underlying history. Results Lab / Micro Data 12/08/24 20:00 12/08/24 20:00 Labs: Laboratory Results - last 24 hr 12/08/24 20:00: WBC 7.9, RBC 3.72 L, Hgb 11.0 L, Hct 32.5 L, MCV 87.4, MCH 29.6,MCHC 33.8, RDW Std Deviation 39.8, RDW Coeff of Nellie 12.5, Plt Count 230, MPV 12.8 H, Immature Gran % (Auto) 0.300, Neut% (Auto) 67.7, Lymph % (Auto) 22.8, [place] % (Auto) 7.7, Eos % (Auto) 0.9, Baso % (Auto) 0.6, Absolute Neuts (auto) 5.4, Absolute Lymphs (auto) 1.80, Nucleated RBC % 0, Sodium 128 L, Potassium 4.9, Chloride 90 L, Carbon Dioxide 12.2 L, Anion Gap 26 H, BUN 27 H, Creatinine 1.36 H, Estim Creat Clear Calc 35.48 L, Est GFR (MDRD) Non-Af 44 L, BUN/Creatinine Ratio 19.5, Glucose 592 H*, Calcium 9.7, Total Bilirubin 0.25, AST 13, ALT 14, Alkaline Phosphatase 108 H, Total Protein 7.5, Albumin 4.3, Globulin 3.2, Albumin/Globulin Ratio 1.4, Lipase 49, b-Hydroxybutyric mmol/L 7.9H, POC Glucose > 500 H* 12/08/24 20:49: POC Glucose 491 H* 12/08/24 22:11: POC Glucose 380 H 12/08/24 22:25: Urine Color Yellow, Urine Clarity Clear, Urine pH 6.0, Ur Specific [place] 1.015, Urine Protein 30 H, Urine Glucose (UA) 1000 H, Urine Ketones 150 A*, Urine Occult Blood Negative, Urine Nitrite Negative, Urine Bilirubin Negative, Urine Urobilinogen Normal, Ur Leukocyte Esterase Negative, Urine RBC 0 SEEN, Urine WBC 0 SEEN, Ur Squamous Epith Cells 0 SEEN, Urine Bacteria 0 SEEN, Urine Mucus 0 SEEN 12/08/24 23:30: POC Glucose 231 H ABG Data ABG results: ABG 12/08/24 20:44 Specimen Type LIZY Sample Site Not entered VBG pH 7.21 L VBG pO2 31 VBG HCO3 13 L VBG Total CO2 14 L VBG O2 Sat (Calc) 47 L VBG Base Excess -15 L POC Mix VBG pCO2 Pt Tmp 31.1 L O2 Delivery Device Not entered Imaging Radiology Impression Abdomen/Pelvis CT 12/08/24 20:31 IMPRESSION: 1. No acute intra-abdominal abnormality. The appendix is unremarkable. 2. Heterogeneous mass at the lower pole of the left kidney measuring up to 6.6 cm, featuring a segmental region of hypodensity and a possible punctate calcification. Findings are highly worrisome for renal cell carcinoma, though other benign and malignant etiologies such as oncocytoma are also possible. Recommend Urology referral. 3. Cholelithiasis. Yellow Alert: Left kidney mass The critical information above was relayed directly by me by telephone to Miki Sen on 12/08/2024t 11:16 pm with readback verification. Reading Location: [id number] Assessment & Plan Assessment/Plan (1) Diabetic ketoacidosis: PLAN: Plan The patient is a 64 y/o F w/ PMHx: IDDM, Anxiety and Depression, Former tobacco use, Chart reportedhistory of EtOH abuse, HTN, HLD, GERD who presents to the [facility] ED on 12/09/2024 with history of persistent nausea, emesis and loose stools noting that she woke the morning previous feeling poorly and did take insulin inthe morning but did not eat much all day and had persistent symptoms unfortunately s he did not check her blood sugars as she said she was unable to find any strips and given how she continued to feel unwell prompted eventual ED evaluation to be cautious. #1. IDDM with DKA: Will admit to the ICU, continue on insulin drip, check serial K+, glucose w/ IVFchanges pending these levels, serial chemistry, obtainmag, phos daily w/ repletion as needed, transition to home SC regimen when gap closed w/ overlap on drip, nutrition consultation. Encouraged dietand insulin regimen compliance. Hemoglobin A1c requested. #2. N/V/D, possible acute gastroenteritis: Will continue hydration, will obtainc diff, stool cx, O+P with repeat AM CBC, will have anti-emetics and if all studies are unremarkable will initiate loperamide regimen if needed. #3. Acute renal insufficiency/elevated creatinine on CKD stage II per previous GFR trending: Likelysecondary to #1 and GI losses as noted, admission BUN/creatinine 27/1.36, GFR 44, normally previously more consistent with stage II, baseline creatinine previously noted 0.8-1.0, will continue evaluation and treatment as noted above, repeat BMP serially given #1 and CMP in AM. #4. Incidentally noted heterogeneous mass in the left kidney: CT scan of the abdomen and pelvis with heterogeneous mass of the lower pole of the left kidney measuring 6.6 cm featuring a segmental region of hypodensity with possible punctate calcifications worrisome for renal cell carcinoma. Will need follow- upwith urology. #5. Chronic normocytic anemia: Admission 11.0, MCV 87.4, baseline hemoglobin most recent noted 10-11, stable, continue to trend. #6. Anxiety and depression: Will continue patient on sertraline regimen. #7. Hypertension: Given renal insufficiency will temporally hold lisinopril, add back once appropriate, PRN IV hydralazine. #8. Hyperlipidemia: Will continue patient on statin therapy. #9. Former tobacco use: Encourage continued tobacco cessation. #10. Former heavy alcohol abuse: Patient reports occasional glass of wine, lastnoted 2 weeks previous, given her history would benefit from complete sobriety. #11. GERD: Will maintain on IV PPI given #1. #12. DVT prophylaxis: Lovenox. Charges/Coding Visit Charges Inpatient E&M: 18952 Init Hosp L3 12/09/24 0100 Cosigner Signature (if applicable): CC: Dr. Zelda Ibarra MD; Dr. Milind Lamb MD~ Signed [facility]06-05-[address] [facility] Medical Records Department [address] [place] [address] Emergency Department Summary 12/08/24 MR#: [id number] Acct: [id number] Name: LINA MEADOWS Rep #:[id number] : 1960 64 From: Miki Sen DO PCP: Dr. Milind Lamb MD Status:REG E R Location: ED HPI History of Present Illness Chief Complaint: Hyperglycemia Narrative Narrative: Patient is a 64-year-old female with past medical history of diabetes, hypertension, GERD, alcohol abuse, anxiety, depression who presents to the emergency department chief complaint of nausea vomiting diarrhea. Patient states that she woke up this morning not feeling well overall and notes that shetook some insulin this morning but notes that she did not eat much all day as she has had nausea vomiting diarrhea and not feeling well. She states that she was unable to check her glucose secondary to being out of her testing strips. [facility] Medical History Accelerated hypertension DKA (diabetic ketoacidosis) Sinus tachycardia seen on registered nurse cardiac Diabetic ketoacidosis associated with type 1 diabetes mellitus Pyuria Back pain Diabetes Hypokalemia Tobacco use Anxiety and depression ETOH abuse GERD (gastroesophageal reflux disease) HTN (hypertension) Diabetes mellitus, type 2 History of alcoholism COVID-19 Home Medications ?Medication ?Instructions ?Recorded ?Last Taken ?Type flash glucose sensor (FreeStyle #2 ea 04/11/22 Unknown Rx Moncho 2 Sensor kit) blood-glucose meter (FreeStyle #1 ea 07/28/22 Unknown Rx Lite Meter kit) lancets 28 gauge (FreeStyle #100 ea 07/28/22 Unknown R x Lancets) pen needle, diabetic 32 gauge x #50 ea 07/28/22 Unknow n Rx (BD Ultra-Fine Josefina Pen Needle) lancets 28 gauge (FreeStyle #100 ea 07/06/23 Unknown R x Lancets) sertraline 50 mg tablet 50 mg PO DAILY depression Unknown History blood sugar diagnostic (FreeStyle #100 ea 05/04/24 Unk nown Rx Lite Strips) insulin lispro 100 unit/mL 6 unit (0.06 mL) subcut TID AC 05/04/24 02/29/24 Rx subcutaneous pen (Humalog KwikPen diabetes #15 mL (U-100) Insulin) lisinopril 5 mg tablet 5 mg PO DAILY #30 tabs 05/04 Unknown Rx metformin 1,000 mg tablet 1,000 mg PO DAILY #30 tabs 1 Unknown Rx insulin glargine U-300 conc 300 40 unit subcut QHS 10/29 Unknown History unit/mL (1.5 mL) subcutaneous pen (Toujeo SoloStar U-300 Insulin) rosuvastatin 5 mg tablet 5 mg PO DAILY 12/08/24 Unkno wn History Allergy/AdvReac Type Severity Reaction Status Date / Time No Known Allergies Allergy Verified 12/08/24 19:54 Family History Mother Diabetes Father Diabetes Cancer Hx mesothelioma. Surgical History Status post tubal ligation Social History household members: other details: Lives with her son. Her son is also an alcoholic. Smoking Status: Former smoker alcohol intake: former details: maybe drinks a glass of wine a day, but does not drink alcohol anymore substance use type: does not use ROS ROS ED ROS Narrative Constitutional: Complains of chills denies fevers, headaches Eyes: Denies change in vision double vision blurry vision Cardiovascular: Denies chest pain Respiratory: Denies coughing wheezing shortness of breath Abdomen: Complains of nausea vomiting diarrhea as noted above : Denies any urinary symptoms Neurological: Denies numbness, wheeze, tingling Musculoskeletal: Denies back pain Skin: Denies any rashes or lesions EXAM Physical Exam Narrative Exam Narrative: General: Patient lying in bed appeared to be uncomfortable not feeling well overall Head: Atraumatic, normocephalic Eyes: PERRL bilaterally, EOMI bilateral, no conjunctival injection noted Neck: Soft, supple, trachea midline Cardiovascular: Regular rate and rhythm Respiratory: Clear to auscultation bilaterally Abdomen: Soft, nondistended, diffuse tenderness to palpation no rebound or guarding on exam Extremities: +5/5 strength noted in the bilateral upper and lower extremities Neurological: Patient follow commands and that she was at [facility] year is 2024 Skin: Warm, dry, tact no rashes or lesions noted Const Vital Signs: 12/08/24 19:54 12/08/24 19:55 12/08/24 19:55 Temperature 98.8 F Temperature Source Oral Oral Pulse Rate 102 H Respiratory Rate 16 Respiratory Effort Normal Non-Labored Respiratory Pattern Normal Blood Pressure 161/71 H Blood Pressure Mean 101 Pulse Ox 100 Oxygen Delivery Method Room Air 12/08/24 21:00 12/08/24 22:00 12/08/24 23:00 Temperature Temperature Source Pulse Rate 92 100 100 Respiratory Rate 20 H 19 H 24 H Respiratory Effort Respiratory Pattern Blood Pressure 148/66 H 120/58 L 116/68 Blood Pressure Mean 93 78 84 Pulse Ox 100 99 100 Oxygen Delivery Method Room Air Room Air Room Air MDM MDM MDM Narrative Medical decision making narrative: Patient is a 64-year-old female who presented to the emergency department chief complaint of nauseavomiting diarrhea and not feeling well. On the differentialdiagnosis includes but not limited to viral gastroenteritis, upper respiratory infection second viral etiology, viral gastroenteritis, DKA. Once workup is obtained reviewed she will be reevaluated. Patient to get IV fluids for hydration. Patient's blood glucose was noted to be in the 500s she will be given 15 units of subcutaneous insulin. Patient's CBC reviewed showed no evidence leukocytosis white blood count normal at 7.9, hemoglobin stable at 11, platelet count normal at 230. Patient's VBG reviewed and showed a pH 7.21, sodium was low although this is likely secondary to her hyperglycemia indicating pseudohyponatremia, CO2 level low at 12.2 anion gap high at 26. Patient's glucose was 592 creatinine was elevated 1.36. Patient's AST and ALT were 13 and 14 respectively. Patient lipase normal at 49,beta hydroxybutyrate elevated to 7.9. Patient's urinalysis showed 150 ketones no evidence of infection patient will be placed on insulin drip. Patient's CBC reviewed showed no evidence of leukocytosis white blood patient's CT abdomen pelvis IV contrast showed no acute intra-abdominal abnormality. Appendix is unremarkable. Heterogeneous massat the lower pole of the left kidney measuring up to 6.6 cm featuring a segmental region of hypodensity and possible punctate calcification. Findings highly worrisome for renal cell carcinoma though other benign and malignant etiologies are also possible cholelithiasis. At this point in time we will discuss case with hospitalist for admission for DKA. Nursing notified me that the patient's blood glucose was noted to be 231 therefore she will be started on D5 NS with 40 mill equivalents of potassium at 125 mL with an hour Spoke with hospitalist Dr. Ibarra who accept patient for admission. I discussed the incidental findings with the patient of the renal mass. All question concerns answered. Lab Data Labs: Laboratory Results - last 24 hr 12/08/24 12/08/24 12/08/24 20:00 20:49 22:11 WBC 7.9 RBC 3.72 L Hgb 11.0 L Hct 32.5 L MCV 87.4 MCH 29.6 MCHC 33.8 RDW Std Deviation 39.8 RDW Coeff of Nellie 12.5 Plt Count 230 MPV 12.8 H Immature Gran % (Auto) 0.300 Neut % (Auto) 67.7 Lymph % (Auto) 22.8 [place] % (Auto) 7.7 Eos % (Auto) 0.9 Baso % (Auto) 0.6 Absolute Neuts (auto) 5.4 Absolute Lymphs (auto) 1.80 Nucleated RBC % 0 Sodium 128 L Potassium 4.9 Chloride 90 L Carbon Dioxide 12.2 L Anion Gap 26 H BUN 27 H Creatinine 1.36 H Estim Creat Clear Calc 35.48 L Est GFR (MDRD) Non-Af 44 L BUN/Creatinine Ratio 19.5 Glucose 592 H* Calcium 9.7 Total Bilirubin 0.25 AST 13 ALT 14 Alkaline Phosphatase 108 H Total Protein 7.5 Albumin 4.3 Globulin 3.2 Albumin/Globulin Ratio 1.4 Lipase 49 b-Hydroxybutyric mmol/L 7.9 H Urine Color Urine Clarity Urine pH Ur Specific [place] Urine Protein Urine Glucose (UA) Urine Ketones Urine Occult Blood Urine Nitrite Urine Bilirubin Urine Urobilinogen Ur Leukocyte Esterase Urine RBC Urine WBC Ur Squamous Epith Cells Urine Bacteria Urine Mucus POC Glucose > 500 H* 491 H* 380 H 12/08/24 12/08/24 22:25 23:30 WBC RBC Hgb Hct MCV MCH MCHC RDW Std Deviation RDW Coeff of Nellie Plt Count MPV Immature Gran % (Auto) Neut % (Auto) Lymph % (Auto) [place] % (Auto) Eos % (Auto) Baso % (Auto) Absolute Neuts (auto) Absolute Lymphs (auto) Nucleated RBC % Sodium Potassium Chloride Carbon Dioxide Anion Gap BUN Creatinine Estim Creat Clear Calc Est GFR (MDRD) Non-Af BUN/Creatinine Ratio Glucose Calcium Total Bilirubin AST ALT Alkaline Phosphatase Total Protein Albumin Globulin Albumin/Globulin Ratio Lipase b-Hydroxybutyric mmol/L Urine Color Yellow Urine Clarity Clear Urine pH 6.0 Ur Specific [place] 1.015 Urine Protein 30 H Urine Glucose (UA) 1000 H Urine Ketones 150 A* Urine Occult Blood Negative Urine Nitrite Negative Urine Bilirubin Negative Urine Urobilinogen Normal Ur Leukocyte Esterase Negative Urine RBC 0 SEEN Urine WBC 0 SEEN Ur Squamous Epith Cells 0 SEEN Urine Bacteria 0 SEEN Urine Mucus 0 SEEN POC Glucose 231 H ABG Data ABG results: ABG 12/08/24 20:44 Specimen Type LIZY Sample Site Not entered VBG pH 7.21 L VBG pO2 31 VBG HCO3 13 L VBG Total CO2 14 L VBG O2 Sat (Calc) 47 L VBG Base Excess -15 L POC Mix VBG pCO2 Pt Tmp 31.1 L O2 Delivery Device Not entered Radiography Diagnostic Testing: Clinical Impression(s) from Imaging Studies Abdomen/Pelvis CT 12/08/24 20:31 IMPRESSION: 1. No acute intra-abdominal abnormality. The appendix is unremarkable. 2. Heterogeneous mass at the lower pole of the left kidney measuring up to 6.6 cm, featuring a segmental region of hypodensity and a possible punctate calcification. Findings are highly worrisome for renal cell carcinoma, though other benign and malignant etiologies such as oncocytoma are also possible. Recommend Urology referral. 3. Cholelithiasis. Yellow Alert: Left kidney mass The critical information above was relayed directly by me by telephone to Miki Sen on 12/08/2024t 11:16 pm with readback verification. Reading Location: [id number] Discharge Plan Triage Chief Complaint: Hyperglycemia ED Provider: Miki Sen Dx/Rx/DC Orders Clinical Impression: Diabetic ketoacidosis, Abnormal computed tomography of abdomen and pelvis Prescriptions: No Action (DME) FreeStyle Moncho 2 Sensor Kit See Rx Instructions .Route Qty: 2 5RF Rx Instructions: As directed (DME) lancets [FreeStyle Lancets] 28 gauge misc See Rx Instructions .Route Qty: 100 0RF Rx Instructions: As directed (DME) pen needle, diabetic [BD Ultra-Fine Josefina Pen Needle] 32 gauge x 5/32 needle See Rx Instructions .ROUTE .MEDSUPPLY Qty: 50 5RF Rx Instructions: daily (DME) blood-glucose meter [FreeStyle Lite Meter] Kit See Rx Instructions .Route Qty: 1 0RF Rx Instructions: As directed (DME) lancets [FreeStyle Lancets] 28 gauge misc See Rx Instructions .Route Qty: 100 0RF Rx Instructions: As directed sertraline 50 mg tablet 50 mg PO DAILY lisinopril 5 mg Tablet 5 mg PO DAILY Qty: 30 2RF metformin 1,000 mg tablet 1,000 mg PO DAILY Qty: 30 2RF (DME) FreeStyle Lite Strips Strip See Rx Instructions .Route Qty: 100 2RF Rx Instructions: As directed insulin lispro [Humalog KwikPen Insulin] 100 unit/mL Insulin Pen 6 unit subcut TIDAC Qty: 15 3RF insulin glargine U-300 conc [Toujeo SoloStar U-300 Insulin] 300 unit/mL (1.5 mL) insulin pen 40 unit subcut QHS rosuvastatin 5 mg tablet 5 mg PO DAILY Primary Care Provider: Milind Lamb Referrals: Milind Lamb MD [Primary Care Provider] - Print Language: Ecuadorean Disposition Disposition: Acute Care Hospital [facility] What to do if you have Problems For any increased pain, shortness of breath, bleeding, nausea or vomiting, chestpain, or any unexpected problems, contact your Primary Care Provider. Call [facility] ([phone]) or report tothe closest Emergency Room. Call 911 if necessary. 12/09/24 0019 Cosigner Signature (if applicable): CC: Dr. Milind Lamb MD ~ Signed [facility]06-04-2025 Radiology Diagnostic study note [facility] Imaging Services [address] [place] [address] Abdomen/Pelvis W IV Cont ONLY MR#: [id number] Acct: [id number] Name: LINA MEADOWS Rep #: [id number] : 1960 F 64 From: Leigha Gaviria MD PCP: Dr. Milind Lamb MD Status: REG E R Study:Abdomen/Pelvis W IV Cont ONLY Date of E xam: 12/08/24 Exam# [id number] Ordering Dr: Marvin Sen DO PROCEDURE: ABDOMEN/PELVIS W IV CONT ONLY 12/08/2024 REASON FOR EXAM: RUQ PAIN TECHNIQUE: Abdomen and pelvis CT with intravenous contrast. Coronal and Sagittal reconstruction series were provided. PATIENT PREPARATION: Per protocol CONTRAST: 98 mL Isovue-300 One or more dose reduction techniques were used (e.g., Automated exposure control, adjustment of the mA and/or kV according to patient size, use of iterative reconstruction technique. RADIATION DOSE SUMMARY: CTDlvol: 7.2 mGy DLP: 619 mGycm COMPARISON: None FINDINGS: Lung bases: Unremarkable Liver: Normal size. No mass. Punctate calcification suggestive of prior granulomatous disease. Gallbladder: Cholelithiasis without pericholecystic fluid or wall thickening. Spleen: Normal size. Punctate calcifications. Pancreas: Normal size without evidence of mass surrounding inflammation or ductal dilation. Adrenals: Unremarkable Kidneys: There is a heterogeneous mass at the lower pole of the left kidney measuring 6.3 x 6.6 x 6.3 cm (AP x TR x CC), which contains hypodensity anteriorly and a punctate hyperdensity inferiorly, possiblya calcification. Nohydronephrosis on either side. Bladder: Unremarkable Reproductive Organs: Unremarkable Bowel: No obstruction or inflammation. Normal caliber appendix. Lymph nodes: No significant lymphadenopathy. Vasculature: Unremarkable Bones: Unremarkable Abdominal wall: Tiny fat containing umbilical hernia. CT/Abdomen/Pelvis W IV Cont ONLY IMPRESSION: 1. No acute intra-abdominal abnormality. The appendix is unremarkable. 2. Heterogeneous mass at the lower pole of the left kidney measuring up to 6.6 cm, featuring a segmental region of hypodensity and a possible punctate calcification. Findings are highly worrisome for renal cell carcinoma, though other benign and malignant etiologies such as oncocytoma are also possible. Recommend Urology referral. 3. Cholelithiasis. Yellow Alert: Left kidney mass The critical information above was relayed directly by me by telephone to Miki Sen on 12/08/2024t 11:16 pm with readback verification. Reading Location: [id number] CC: Dr. Milind Lamb MD; Dr. Miki Sen DO ~ Line Operator: Signed [facility]06-04-2025 Discharge summary Author Miki Sen [facility] Note Date/Time December 09, 2024 12:[address] [facility] Medical Records Department [address] [place] [address] Emergency Department Summary 12/08/24 MR#: [id number] Acct: [id number] Name: LINA MEADOWS Rep #:[id number] : 1960 64 From: Miki Sen DO PCP: Dr. Milind Lamb MD Status:REG E R Location: ED HPI History of Present Illness Chief Complaint: Hyperglycemia Narrative Narrative: Patient is a 64-year-old female with past medical history of diabetes, hypertension, GERD, alcohol abuse, anxiety, depression who presents to the emergency department chief complaint of nausea vomiting diarrhea. Patient states that she woke up this morning not feeling well overall and notes that shetook some insulin this morning but notes that she did not eat much all day as she has had nausea vomiting diarrhea and not feeling well. She states that she was unable to check her glucose secondary to being out of her testing strips. [facility] Medical History Accelerated hypertension DKA (diabetic ketoacidosis) Sinus tachycardia seen on registered nurse cardiac Diabetic ketoacidosis associated with type 1 diabetes mellitus Pyuria Back pain Diabetes Hypokalemia Tobacco use Anxiety and depression ETOH abuse GERD (gastroesophageal reflux disease) HTN (hypertension) Diabetes mellitus, type 2 History of alcoholism COVID-19 Home Medications ?Medication ?Instructions ?Recorded ?Last Taken ?Type flash glucose sensor (FreeStyle #2 ea 04/11/22 Unknown Rx Moncho 2 Sensor kit) blood-glucose meter (FreeStyle #1 ea 07/28/22 Unknown Rx Lite Meter kit) lancets 28 gauge (FreeStyle #100 ea 07/28/22 Unknown R x Lancets) pen needle, diabetic 32 gauge x #50 ea 07/28/22 Unknow n Rx (BD Ultra-Fine Josefina Pen Needle) lancets 28 gauge (FreeStyle #100 ea 07/06/23 Unknown R x Lancets) sertraline 50 mg tablet 50 mg PO DAILY depression Unknown History blood sugar diagnostic (FreeStyle #100 ea 05/04/24 Unk nown Rx Lite Strips) insulin lispro 100 unit/mL 6 unit (0.06 mL) subcut TID AC 05/04/24 02/29/24 Rx subcutaneous pen (Humalog KwikPen diabetes #15 mL (U-100) Insulin) lisinopril 5 mg tablet 5 mg PO DAILY #30 tabs 05/04 Unknown Rx metformin 1,000 mg tablet 1,000 mg PO DAILY #30 tabs 1 Unknown Rx insulin glargine U-300 conc 300 40 unit subcut QHS 10/29 Unknown History unit/mL (1.5 mL) subcutaneous pen (Toujeo SoloStar U-300 Insulin) rosuvastatin 5 mg tablet 5 mg PO DAILY 12/08/24 Unkno wn History Allergy/AdvReac Type Severity Reaction Status Date / Time No Known Allergies Allergy Verified 12/08/24 19:54 Family History Mother Diabetes Father Diabetes Cancer Hx mesothelioma. Surgical History Status post tubal ligation Social History household members: other details: Lives with her son. Her son is also an alcoholic. Smoking Status: Former smoker alcohol intake: former details: maybe drinks a glass of wine a day, but does not drink alcohol anymore substance use type: does not use ROS ROS ED ROS Narrative Constitutional: Complains of chills denies fevers, headaches Eyes: Denies change in vision double vision blurry vision Cardiovascular: Denies chest pain Respiratory: Denies coughing wheezing shortness of breath Abdomen: Complains of nausea vomiting diarrhea as noted above : Denies any urinary symptoms Neurological: Denies numbness, wheeze, tingling Musculoskeletal: Denies back pain Skin: Denies any rashes or lesions EXAM Physical Exam Narrative Exam Narrative: General: Patient lying in bed appeared to be uncomfortable not feeling well overall Head: Atraumatic, normocephalic Eyes: PERRL bilaterally, EOMI bilateral, no conjunctival injection noted Neck: Soft, supple, trachea midline Cardiovascular: Regular rate and rhythm Respiratory: Clear to auscultation bilaterally Abdomen: Soft, nondistended, diffuse tenderness to palpation no rebound or guarding on exam Extremities: +5/5 strength noted in the bilateral upper and lower extremities Neurological: Patient follow commands and that she was at [facility] year is 2024 Skin: Warm, dry, tact no rashes or lesions noted Const Vital Signs: 12/08/24 19:54 12/08/24 19:55 12/08/24 19:55 Temperature 98.8 F Temperature Source Oral Oral Pulse Rate 102 H Respiratory Rate 16 Respiratory Effort Normal Non-Labored Respiratory Pattern Normal Blood Pressure 161/71 H Blood Pressure Mean 101 Pulse Ox 100 Oxygen Delivery Method Room Air 12/08/24 21:00 12/08/24 22:00 12/08/24 23:00 Temperature Temperature Source Pulse Rate 92 100 100 Respiratory Rate 20 H 19 H 24 H Respiratory Effort Respiratory Pattern Blood Pressure 148/66 H 120/58 L 116/68 Blood Pressure Mean 93 78 84 Pulse Ox 100 99 100 Oxygen Delivery Method Room Air Room Air Room Air MDM MDM MDM Narrative Medical decision making narrative: Patient is a 64-year-old female who presented to the emergency department chief complaint of nausea vomiting diarrhea and not feeling well. On the differentialdiagnosis includes but not limited to viral gastroenteritis, upper respiratory infection second viral etiology, viral gastroenteritis, DKA. Once workup is obtained reviewed she will be reevaluated. Patient to get IV fluids for hydration. Patient's blood glucose was noted to be in the 500s she will be given 15 units of subcutaneous insulin. Patient's CBC reviewed showed no evidence leukocytosis white blood count normal at 7.9, hemoglobin stable at 11, platelet count normal at 230. Patient's VBG reviewed and showed a pH 7.21, sodium was low although this is likely secondary to her hyperglycemia indicating pseudohyponatremia, CO2 level low at 12.2 anion gap high at 26. Patient's glucose was 592 creatinine was elevated 1.36. Patient's AST and ALT were 13 and 14 respectively. Patient lipase normal at 49,beta hydroxybutyrate elevated to 7.9. Patient's urinalysis showed 150 ketones no evidence of infection patient will be placed on insulin drip. Patient's CBC reviewed showed no evidence of leukocytosis white blood patient's CT abdomen pelvis IV contrast showed no acute intra-abdominal abnormality. Appendix is unremarkable. Heterogeneous mass at the lower pole of the left kidney measuring up to 6.6 cm featuring a segmental region of hypodensity and possible punctate calcification. Findings highly worrisome for renal cell carcinoma though other benign and malignant etiologies are also possible cholelithiasis. At this point in time we will discuss case with hospitalist for admission for DKA. Nursing notified me that the patient's blood glucose was noted to be 231 therefore she will be started on D5 NS with 40 mill equivalents of potassium at 125 mL with an hour Spoke with hospitalist Dr. Ibarra who accept patient for admission. I discussed the incidental findings with the patient of the renal mass. All question concerns answered. Lab Data Labs: Laboratory Results - last 24 hr 12/08/24 12/08/24 12/08/24 20:00 20:49 22:11 WBC 7.9 RBC 3.72 L Hgb 11.0 L Hct 32.5 L MCV 87.4 MCH 29.6 MCHC 33.8 RDW Std Deviation 39.8 RDW Coeff of Nellie 12.5 Plt Count 230 MPV 12.8 H Immature Gran % (Auto) 0.300 Neut % (Auto) 67.7 Lymph % (Auto) 22.8 [place] % (Auto) 7.7 Eos % (Auto) 0.9 Baso % (Auto) 0.6 Absolute Neuts (auto) 5.4 Absolute Lymphs (auto) 1.80 Nucleated RBC % 0 Sodium 128 L Potassium 4.9 Chloride 90 L Carbon Dioxide 12.2 L Anion Gap 26 H BUN 27 H Creatinine 1.36 H Estim Creat Clear Calc 35.48 L Est GFR (MDRD) Non-Af 44 L BUN/Creatinine Ratio 19.5 Glucose 592 H* Calcium 9.7 Total Bilirubin 0.25 AST 13 ALT 14 Alkaline Phosphatase 108 H Total Protein 7.5 Albumin 4.3 Globulin 3.2 Albumin/Globulin Ratio 1.4 Lipase 49 b-Hydroxybutyric mmol/L 7.9 H Urine Color Urine Clarity Urine pH Ur Specific [place] Urine Protein Urine Glucose (UA) Urine Ketones Urine Occult Blood Urine Nitrite Urine Bilirubin Urine Urobilinogen Ur Leukocyte Esterase Urine RBC Urine WBC Ur Squamous Epith Cells Urine Bacteria Urine Mucus POC Glucose > 500 H* 491 H* 380 H 12/08/24 12/08/24 22:25 23:30 WBC RBC Hgb Hct MCV MCH MCHC RDW Std Deviation RDW Coeff of Nellie Plt Count MPV Immature Gran % (Auto) Neut % (Auto) Lymph % (Auto) [place] % (Auto) Eos % (Auto) Baso % (Auto) Absolute Neuts (auto) Absolute Lymphs (auto) Nucleated RBC % Sodium Potassium Chloride Carbon Dioxide Anion Gap BUN Creatinine Estim Creat Clear Calc Est GFR (MDRD) Non-Af BUN/Creatinine Ratio Glucose Calcium Total Bilirubin AST ALT Alkaline Phosphatase Total Protein Albumin Globulin Albumin/Globulin Ratio Lipase b-Hydroxybutyric mmol/L Urine Color Yellow Urine Clarity Clear Urine pH 6.0 Ur Specific [place] 1.015 Urine Protein 30 H Urine Glucose (UA) 1000 H Urine Ketones 150 A* Urine Occult Blood Negative Urine Nitrite Negative Urine Bilirubin Negative Urine Urobilinogen Normal Ur Leukocyte Esterase Negative Urine RBC 0 SEEN Urine WBC 0 SEEN Ur Squamous Epith Cells 0 SEEN Urine Bacteria 0 SEEN Urine Mucus 0 SEEN POC Glucose 231 H ABG Data ABG results: ABG 12/08/24 20:44 Specimen Type LIZY Sample Site Not entered VBG pH 7.21 L VBG pO2 31 VBG HCO3 13 L VBG Total CO2 14 L VBG O2 Sat (Calc) 47 L VBG Base Excess -15 L POC Mix VBG pCO2 Pt Tmp 31.1 L O2 Delivery Device Not entered Radiography Diagnostic Testing: Clinical Impression(s) from Imaging Studies Abdomen/Pelvis CT 12/08/24 20:31 IMPRESSION: 1. No acute intra-abdominal abnormality. The appendix is unremarkable. 2. Heterogeneous mass at the lower pole of the left kidney measuring up to 6.6 cm, featuring a segmental region of hypodensity and a possible punctate calcification. Findings are highly worrisome for renal cell carcinoma, though other benign and malignant etiologies such as oncocytoma are also possible. Recommend Urology referral. 3. Cholelithiasis. Yellow Alert: Left kidney mass The critical information above was relayed directly by me by telephone to Miki Sen on 12/08/2024 at 11:16 pm with readback verification. Reading Location: [facility] Discharge Plan Triage Chief Complaint: Hyperglycemia ED Provider: Miki Sen Dx/Rx/DC Orders Clinical Impression: Diabetic ketoacidosis, Abnormal computed tomography of abdomen and pelvis Prescriptions: No Action (DME) FreeStyle Moncho 2 Sensor Kit See Rx Instructions .Route Qty: 2 5RF Rx Instructions: As directed (DME) lancets [FreeStyle Lancets] 28 gauge misc See Rx Instructions .Route Qty: 100 0RF Rx Instructions: As directed (DME) pen needle, diabetic [BD Ultra-Fine Josefina Pen Needle] 32 gauge x 5/32 needle See Rx Instructions .ROUTE .MEDSUPPLY Qty: 50 5RF Rx Instructions: daily (DME) blood-glucose meter [FreeStyle Lite Meter] Kit See Rx Instructions .Route Qty: 1 0RF Rx Instructions: As directed (DME) lancets [FreeStyle Lancets] 28 gauge misc See Rx Instructions .Route Qty: 100 0RF Rx Instructions: As directed sertraline 50 mg tablet 50 mg PO DAILY lisinopril 5 mg Tablet 5 mg PO DAILY Qty: 30 2RF metformin 1,000 mg tablet 1,000 mg PO DAILY Qty: 30 2RF (DME) FreeStyle Lite Strips Strip See Rx Instructions .Route Qty: 100 2RF Rx Instructions: As directed insulin lispro [Humalog KwikPen Insulin] 100 unit/mL Insulin Pen 6 unit subcut TIDAC Qty: 15 3RF insulin glargine U-300 conc [Toujeo SoloStar U-300 Insulin] 300 unit/mL (1.5 mL) insulin pen 40 unit subcut QHS rosuvastatin 5 mg tablet 5 mg PO DAILY Primary Care Provider: Milind Lamb Referrals: Milind Lamb MD [Primary Care Provider] - Print Language: Ecuadorean Disposition Disposition: Acute Care [facility] What to do if you have Problems For any increased pain, shortness of breath, bleeding, nausea or vomiting, chestpain, or any unexpected problems, contact your Primary Care Provider. Call [facility] [employer] [facility] ([phone]) or report to the closest Emergency Room. Call 911 if necessary. 12/09/24 0019 <Electronically signed by Miki Sen DO> Cosigner Signature (if applicable): CC: Dr. Milind Lamb MD ~ Signed [facility] Work Phone: 1(828) 825-165610-29-2024 [facility]08-30-2024 [facility]01-23-2024 Discharge summary Author Reece Smith [facility] July 29, 2023 4:22pm Note Date/Time July 29, 2023 2 :09pm [facility] Medical Records Department [address] [address] Emergency Department Summary 07/29/23 MR#: [id number] Acct: [id number] Name: LINA MEADOWS Rep #:[id number] : 1960 63 From: Reece Smith MD [...] tried to get her some oral juice, butshe was too lethargic to drink and so [...] subcutaneous pen (Toujeo Max U- 300 SoloStar) 30 unit (0.1 mL) subcut DAILY [...] (Auto) 72.9 H Lymph % (Auto) 19.3 [place] % (Auto) 5.7 Eos % (Auto) 1.1 [...] Clarity Clear Urine pH 6.0 Ur Specific [place] 1.020 Urine Protein Negative Urine Glucose (UA) [...] (Auto) Neut % (Auto) Lymph % (Auto) [place] % (Auto) Eos % (Auto) Baso % (Auto) Absolute Neuts (auto) Absolute Lymphs (auto) Nucleated RBC % Sodium Potassium Chloride Carbon Dioxide Anion Gap BUN Creatinine Estim Creat Clear Calc Est GFR (MDRD) Af Amer Est GFR (MDRD) Non-Af BUN/Creatinine Ratio Glucose Calcium Troponin I High Sens Urine Color Urine Clarity Urine pH Ur Specific [place] Urine Protein Urine Glucose (UA) Urine Ketones [...] your Primary Care Provider. Call [facility] ([phone]) or report to the closest Emergency Room. Call 911 if necessary. 07/29/23 1622 <Electronically signed by Reece Smith MD> Cosigner Signature (if applicable): CC: Dr. Milind Lamb MD ~ Signed [facility] Work Phone: 1([phone]) 503-137912-27-2023 Discharge summary Author Steven Voss [facility] July 02, 2023 8:59pm Note Date/Time July 02, 2023 7:16pm [facility] Medical Records Department [address] [place] [address] Emergency Department Summary 07/02/23 MR#: [id number] Acct: [id number] Name: LINA MEADOWS Rep #:[id number] : 1960 63 From: Steven Voss MD [...] denies cough or sputum production. Denies dyspnea [place] exertion. She denies abdominal pain, nausea, vomiting or diarrhea. Denies constipation. She denies dysuria, frequency, urgency or hematuria. She denies weakness in herlegs. She states it hurts. She reports pain anterior right and left thigh. She does not have symptoms of claudication. She does endorse history of type 1 diabetes. Prior similar symptoms: Yes Recent Illness/Hospitalization: Yes PFSH PFS Medical History Anxiety and depression COVID-19 Diabetes [...] Unknown] pen needle, diabetic 32 gauge x /32 (BD Ultra-Fine Josefina Pen Needle) #50 ea [...] (Auto) 74.0 H Lymph % (Auto) 20.1 [place] % (Auto) 4.6 Eos % (Auto) 0.1 [...] Clarity Clear Urine pH 5.0 Ur Specific [place] 1.020 Urine Protein 30 H Urine Glucose [...] follows: Interpretation: Sinus Tachycardia (Rate is 113. MA interval is 138 ms. QRS durations 88 ms. QT duration 344 ms. [place] is normal. There is nonseptic changes which [...] insulin to treat DKA), Discussing w/Patient &/or Family/Water Resource Manager, Discussing w/Consultants and Arranging Admission or Transfer Discharge Plan Dx/Rx/DC Orders Clinical Impression: Pyuria, Back pain, Diabetic ketoacidosis associated with type 1 diabetes mellitus, Elevated serum creatinine, Sinus tachycardia by electrocardiogram Disposition Disposition: Acute Care Hospital [facility] What to do if you have Problems For any increased pain, shortness of breath, bleeding, nausea or vomiting, chestpain, or any unexpected problems, contact your Primary Care Provider. Call [facility] ([phone]) or report to the closest Emergency Room. Call 911 if necessary. 07/02/232058 <Electronically signed by Steven Voss MD> Cosigner Signature (if applicable): CC: Dr. Milind Lamb MD ~ Signed [facility] Work Phone: 1(214) 641-813912-27-2023 Hospital Discharge instructions Additional Instructions Ice 20 minutes on, 20 minutes off. Do not do heat. Perform lumbar stretching exercises as shown at bedside and on discharge paperwork. If nosebleed starts again, hold 20 minutes on continuous pressure, if bleeding does not stop, return to the ER for reevaluation. Use nzmq-vny-ppwkxaw MiraLAX twice a day for the next 3 to 4 days for good bowel relief. Use fzwk-tqd-auijpdo magnesium citrate or mineral oil 1-2 bottles a day for the next 2 days to help with the bowels as well. Use either hjqa-wdm-dorywjx Motrin, Advil, ibuprofen or Naprosyn daily to help with pain and inflammation. Follow-up and [facility]: 1([phone]) 804-855201-22-[address] Ahumada [facility] July 28, 2022 2:11pm Note Date/Time July 28, 2022 2 :11pm [facility] Medical Records Department [address] [place] [address] Discharge Summary 07/28/22 1409 MR#: [id number] Acct: [id number] Name: LINA MEADOWS Rep #:[id number] : 1960 62 From: Sanjiv Ahumada DO PCP: Dr. Milind Lamb MD Status:ADM I N Location: [place] [address] Providers Date of Admission: 07/26/22 Date of [...] Freq: Status: Active Protocol: Document 07/26/22 15:35 YAZ (Rec: 07/26/22 15:35 [facility] [id number]) Nutrition Malnutrition Evidence of Malnutrition Exists Yes [...] Glucose 248 H D/C Instructions Discharge Diet: 2000 Calorie Control Diet Meaningful Use Info Meaningful [...] mg PO BID Referrals / Follow Up: [facility] [Provider Group] - Within 1 Month Milind Lamb MD [Primary Care Provider] - Within 2 Weeks Disposition Disposition (needs filled in before D/C Order can be placed): Home, Self Care Charges/Coding Visit Charges Inpatient E&M: 24313 Disch Hosp >30min 07/28/22 1411 <Electronically signed by Sanjiv Ahumada DO> Cosigner Signature (if applicable): CC: Dr. Sanjiv Ahumada DO; Dr. Milind Lamb MD~ Signed [facility] Work Phone: [phone]) 827-385901-22-[address] Ahumada [facility] July 28, 2022 2:09pm Note Date/Time July 28, 2022 2 :02pm [facility] Medical Records Department [address] [place] [address] Instructions for Home/Discharge Instructions 07/28/22 1402 MR#: [id number] Acct: [id number] Name: LINA MEADOWS Rep #:[id number] : 1960 62 From: Sanjiv Ahumada DO [...] mg PO BID Referrals / Follow Up: [facility] [Provider Group] - Within 1 Month Milind Lamb MD [Primary Care Provider] - Within 2 Weeks Disposition Disposition (needs filled in before D/C Order can be placed): Home, Self Care 07/28/22 1949<Electronically signed by Sanjiv Ahumada DO>Sanjiv Ahumada DO CC: Dr. Milind Lamb MD ~ Signed [facility] Work Phone: 1([phone]) 580-343301-21-[address] Ahumada [facility] July 27, 2022 2:19pm Note Date/Time July 27, 2022 7 :43am [facility] Medical Records Department [address] [place] [address] Progress Note - Hospitalist 07/27/22 0739 MR#: [id number] Acct: [id number] Name: LNIA MEADOWS Rep #:[id number] : 1960 62 From: Sanjiv Ahumada DO PCP: Dr. Milind Lamb MD Status:ADM I N Location: [place] [address] Subjective Subjective Feels well. Objective Data Objective [...] 07/26/22 15:35 SLA (Rec: 07/26/22 15:35 SLA [id number]) Nutrition Malnutrition Evidence of Malnutrition Exists Yes [...] 79.8 H, Lymph % (Auto) 12.1 L, [place] % (Auto) 5.0, Eos % (Auto) 0.1, [...] Clarity Clear, Urine pH 6.5, Ur Specific [place] 1.015, Urine Protein 30 H, Urine Glucose [...] % (Auto) 58.4, Lymph % (Auto) 29.5, [place] % (Auto) 10.3 H, Eos % (Auto) [...] oral agents. Charges/Coding Visit Charges Inpatient E&M: 62244 Subs Hosp L2 07/27/22 1419 <Electronically signed by Sanjiv Ahumada DO> Cosigner Signature (if applicable): CC: ~ Signed [facility] Work Phone: 1([phone]) 217-686901-20-2023 History and physical note Author Dr. Ahumada [facility] July 26, 2022 1:45pm Note Date/Time July 26, 2022 1 :45pm [facility] Medical Records Department [address] [place] [address] H&P Exam - Hospitalist 07/26/22 1340 MR#: [id number] Acct: [id number] Name: LINA MEADOWS Rep #:[id number] : 1960 62 From: Sanjiv Ahumada DO PCP: Dr. Milind Lamb MD Status:ADM I N Location: ICU ICU06-1 HPI - General General Date of Admission: 07/26/22 Date of Service: 07/26/22 Chief Complaint: weak HPI Narrative LINA MEADOWS, is a 62 F who presents presents [...] The hospitalist service was contacted for admission. [facility] Medical History Anxiety and depression COVID-19 Diabetes [...] 79.8 H, Lymph % (Auto) 12.1 L, [place] % (Auto) 5.0, Eos % (Auto) 0.1, [...] PLAN: Plan VTE prophylaxis with enoxaparin. 07/26/22 1345 <Electronically signed by Sanjiv Ahumada DO> Cosigner Signature (if applicable): CC: Dr. Sanjiv Ahumada DO; Dr. Milind Lamb MD~ Signed [facility] Work Phone: 1([phone]) 445-395201-20-[address] Voss [facility] July 26, 2022 12:19pm Note Date/Time July 26, 2022 1 1:41am [facility] Medical Records Department [address] [place] [address] Emergency Department Summary 07/26/22 MR#: [id number] Acct: [id number] Name: LINA MEADOWS Rep #:[id number] : 1960 62 From: Steven Voss MD [...] 79.8 H Lymph % (Auto) 12.1 L [place] % (Auto) 5.0 Eos % (Auto) 0.1 [...] Interpretation: Sinus Tachycardia (Heart rate is 111. MA interval is 188 ms. Cures duration 92 ms. QT duration during 26 ms. [place] is normal. There isartifact noted. There may [...] creatinine, Tachypnea Disposition Disposition: Acute Care [facility] What to do if you have Problems For any increased pain, shortness of breath, bleeding, nausea or vomiting, chestpain, or any unexpected problems, contact your Primary Care Provider. Call [facility] ([phone]) or report to the closest Emergency Room. Call 911 if necessary. 07/26/22 1219 <Electronically signed by Steven Voss MD> Cosigner Signature (if applicable): CC: Dr. Milind Lamb MD ~ Signed [facility] Work Phone: 1([phone]) 870-731801-20-[address] Voss [facility] July 26, 2022 12:19pm Note Date/Time July 26, 2022 1 1:41am [facility] Medical Records Department [address] [place] [address] Emergency Department Summary 07/26/22 MR#: [id number] Acct: [id number] Name: LINA MEADOWS Rep #:[id number] : 1960 62 From: Steven Voss MD [...] 79.8 H Lymph % (Auto) 12.1 L [place] % (Auto) 5.0 Eos % (Auto) 0.1 [...] Interpretation: Sinus Tachycardia (Heart rate is 111. MA interval is 188 ms. Cures duration 92 ms. QT duration during 26 ms. [place] is normal. There isartifact noted. There may [...] creatinine, Tachypnea Disposition Disposition: Acute Care [facility] What to do if you have Problems For any increased pain, shortness of breath, bleeding, nausea or vomiting, chestpain, or any unexpected problems, contact your Primary Care Provider. Call [facility] ([phone]) or report to the closest Emergency Room. Call 911 if necessary. 07/26/22 1219 <Electronically signed by Steven Voss MD> Cosigner Signature (if applicable): CC: Dr. Milind Lamb MD ~ Signed [facility] Work Phone: 1([phone]) 609-725911-01-2022 Hospital Discharge instructions Additional Instructions Use bokn-gll-wqylowq cold and flu medicine to help with your symptoms. You can use sugar-free cough drops. Use the inhaler given to you 1 to 2 puffs every 4-6 hours as needed for shortness of breath or cough. Drink lots of fluids.[facility] Work Phone: [phone]) 423-213410-28-2022 Hospital Discharge instructions Additional Instructions Use ptip-iqv-quhypmx cold and flu medicine to help with your symptoms. You can use sugar-free cough drops. Use the inhaler given to you 1 to 2 puffs every 4-6 hours as needed for shortness of breath or cough. Drink lots of fluids.[facility] Work Phone: Discharge summary Author Dr. Ahumada [facility] July 28, 2022 2:09pm Note Date/Time July 28, 2022 2 :02pm [facility] Medical Records Department [address] [place] [address] Instructions for Home/Discharge Instructions 07/28/22 1402 MR#: [id number] Acct: [id number] Name: LINA MEADOWS Rep #:[id number] : 1960 62 From: Sanjiv Ahumada DO PCP: Dr. Milind Lamb MD Status:ADM I N Discharge Instructions Diet Discharge Diet: 1999 Calorie Control Diet Follow Up Care Test [...] mg PO BID Referrals / Follow Up: [facility] [Provider Group] - Within 1 Month Milind Lamb MD [Primary Care Provider] - Within 2 Weeks Disposition Disposition (needs filled in before D/C Order can be placed): Home, Self Care 07/28/229<Electronically signed by Sanjiv Ahumada DO>Sanjiv Ahumada DO CC: Dr. Milind Lamb MD ~ Signed [facility] Work Phone: Discharge summary Author Dr. Ahumada [facility] July 28, 2022 2:11pm Note Date/Time July 28, 2022 2 :11pm [facility] Medical Records Department [address] [place] [address] Discharge Summary 07/28/221408 MR#: [id number] Acct: [id number] Name: LIAN MEADOWS Rep #:[id number] : 1960 62 From: Sanjiv Ahumada DO PCP: Dr. Milind Lamb MD Status:ADM I N Location: [place] [address] Providers Date of Admission: 07/26/22 Date of [...] Freq: Status: Active Protocol: Document 07/26/22 15:35 [facility] (Rec: 07/26/22 15:35 [facility] [id number]) Nutrition Malnutrition Evidence of Malnutrition Exists Yes [...] Glucose 248 H D/C Instructions Discharge Diet: 2000 Calorie Control Diet Meaningful Use Info Meaningful [...] mg PO BID Referrals / Follow Up: [facility] [Provider Group] - Within 1 Month Milind Lamb MD [Primary Care Provider] - Within 2 Weeks Disposition Disposition (needs filled in before D/C Order can be placed): Home, Self Care Charges/Coding Visit Charges Inpatient E&M: 50844 Disch Hosp >30min 07/28/22 1411 <Electronically signed by Sanjiv Ahumada DO> Cosigner Signature (if applicable): CC: Dr. Sanijv Ahumada DO; Dr. Milind Lamb MD~ Signed [facility] Work Phone: Evaluation + Plan note Future Appointments Appointment Date:04/20/2025 10:00:00 AM Scheduled Provider:YOLI CLARK Location:[facility] Appointment Type:PC OV Follow Up [facility] Evaluation note* Diagnosis Onset Date Resolution Status Acute dehydration acute Acute kidney injury acute DKA (diabetic ketoacidosis) acute History of alcoholism acute Pancreatitis [facility] Work Phone: Evaluation note* Diagnosis Onset Date Resolution Status DKA (diabetic ketoacidosis) acute History of alcoholism acute Acute dehydration resolved Acute kidney injury resolved Pancreatitis resolved Diabetes acute Hypokalemia [facility] Work Phone: Evaluation note* Diagnosis Onset Date Resolution Status Diabetes acute Hypokalemia acute Diabetic keto-acidosis acute Elevated serum creatinine ac [place] Sinus tachycardia acute Tachypnea acute [facility] Work Phone: Evaluation note* Diagnosis Onset Date Resolution Status Diabetes acute Hypokalemia acute Diabetic keto-acidosis acute Elevated serum creatinine ac [place] Hypokalemia acute Sinus tachycardia acute Tachypnea acute BRITTNI (acute kidney injury) re solved [facility] Work Phone: Evaluation noteNo assessment information available [facility] Work Phone: Evaluation note* Diagnosis Onset Date Resolution Status Back pain acute Diabetic ketoacidosis associ ated with type 1 diabetes mellitus acute Elevated serum creatinine ac [place] Pyuria acute Sinus tachycardia by electrocardiogram acute [facility] Work Phone: Evaluation note* Diagnosis Onset Date Resolution Status Diabetic keto-acidosis resol yin Elevated serum creatinine re solved Sinus tachycardia by electrocardiogram resolved [facility] Work Phone: Evaluation note* Diagnosis Onset Date Resolution Status Admit Date Abnormal computed tomography of abdomen and pelvis acute December 09 12:32am Diabetic ketoacidosis acute Dec 12:32am [facility] Work Phone: Evaluation note* Diagnosis 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 Hospital Discharge instructions Additional Instructions Is obviously [...] Please return to emergency room for repeat examination.[facility] Work Phone: Hospital Discharge instructions No data available for this section [facility] Progress note No data available for this section [facility] Reason for referral (narrative)No reason for referral information [facility] Work Phone: Summary Purpose Family History Relationship Condition Age at Onset Recorded Date/T afia mother Diabetes mellitus Unknown father Diabetes mellitus Unknown Malignant neoplasm Unknown Advance Directives Advance Directive Response Recorded Date/ Time Living Will No March 03 8:17pm Power of Brim Plater No March 03 022 8:17pm Advance Directive Response Recorded Date/ Time Living Will No May 03 6:14am Power of Brim Plater No May 03, 2022 6:14am Advance Directive Response Recorded Date/ Time Living Will No July 26 11:33am Power of Brim Plater No July 26, 2022 11:33am Advance Directive Response Recorded Date/ Time Living Will No July 26 2:20pm Power of Brim Plater No July 26, 2022 2:20pm Advance Directive Response Recorded Date/ Time Living Will No July 01, 2 023 12:05am Power of Brim Plater No July 01, 2023 12:05am Advance Directive Response Recorded Date/ Time Living Will No July 02, 2 023 8:26am Power of Brim Plater No July 02, 2023 8:26am Advance Directive Response Recorded Date/ Time Living Will No July 02, 2 023 7:15pm Power of Brim Plater No July 02, 2023 7:15pm Advance Directive Response Recorded Date/ Time Living Will No July 29 1:01pm Power of Brim Plater No July 29, 2023 1:01pm Advance Directive Response Recorded Date/ Time Do you have a Healthcare Power of Brim Plater? No December 08, 2024 7:55pm Advance Directive Response Recorded Date/ Time Do you have a Healthcare Power of Brim Plater? No December 09, 2024 1:00am Chief Complaint and Reason for Visit Chief [...] Admit Date PE NON DOT DRUG SCREEN/ [facility] July 16, 2024 11:46am Chief Complaint Admit Date DKA December 09, 2024 12:32 am Reason for Visit Admit Date Abnormal computed tomography of abdomen and pelvis December 09, 2024 12:32am Diabetic ketoacidosis December 09, 2024 12: 32am Chief Complaint Admit Date DKA December 09, 2024 12:10 am DKA December 09, 2024 12:32 am DKA December 10, 2024 8:58a m Reason for Visit Admit Date Abnormal computed tomography of abdomen and pelvis December 09, 2024 12:10am Diabetic ketoacidosis December 09, 2024 12: 10am Additional Source Comments INFORMATION SOURCE (unrecogn ized section and content) DATE CREATED AUTHOR 07/29/2018 [facility] ([place]) DATE CREATED AUTHOR AUTHOR'S ORGANIZ ATION 01/25/2025 [facility] DATE CREATED AUTHOR AUTHOR'S ORGANIZ ATION 01/26/2025 [facility] DATE CREATED AUTHOR AUTHOR'S ORGANIZ ATION 02/12/2025 [facility] Care Teams (unrecognized sec tion and content) [...] October 18, 2024 End: October 18, 2024 Team Status: Active Member Role Status Dates Dr. Milind Lamb MD Primary Care Provider Active Start: December 09, 2024 Dr. Miki Sen DO Emergency Provider Active Start: December 09, 2024 Dr. Zelda Ibarra MD Admit Provider Active St art: December 09, 2024 Dr. Zelda Ibarra MD Attending Provider Active Start: December 09, 2024 Team Status: Active Member Role Status Dates [...] Lamb MD Primary Care Provider Active Start: December 09, 2024 End: December 10, 2024 Dr. Miki Sen DO Emergency Provider Active Start: December 09, 2024 End: December 10, 2024 Dr. Zelda Ibarra MD Admit Provider Active St art: December 09, 2024 End: December 10, 2024 Dr. Zelda Ibarra MD Other Provider Active St art: December 09, 2024 End: December 10, 2024 Dr. Ciro Mendosa MD Attending Provider Active Start: December 09, 2024 End: December 10, 2024 Team Status: Active Member Role Status Dates Dr. Milind Lamb MD Primary Care Provider Active Start: December 09, 2024 Dr. Miki Sen DO Emergency Provider Active Start: December 09, 2024 Dr. Zelda Ibarra MD Admit Provider Active St art: December 09, 2024 Dr. Zelda Ibarra MD Attending Provider Active Start: December 09, 2024 Dr. Zelda Ibarra MD Other Provider Active St art: December 09, 2024 Team Status: Active Member Role Status Dates Dr. Milind Lamb MD Primary Care Provider Active Start: December 10, 2024 Dr. Miki Sen DO Emergency Provider Active Start: December 10, 2024 Dr. Zelda Ibarra MD Admit Provider Active St art: December 10, 2024 Dr. Zelda Ibarra MD Other Provider Active St art: December 10, 2024 Dr. Ciro Mendosa MD Attending Provider Active Start: December 10, 2024 Dr. Ciro Mendosa MD Other Provider Active Star t: December 10, 2024 Team Status: Active Member Role/Relationship Status Dates Dr. Milind Lamb MD Primary Care Provider Active Team Status: Inactive Member Role/Relationship Status Dates Dr. Milind Lamb MD Primary Care Provider Active Start: October 18, 2024 End: October 18, 2024 Dr. Milind Lamb MD Attending Provider Active Start: October 18, 2024 End: October 18, 2024 Dr. Milind Lamb MD Referring Provider Active Start: October 18, 2024 End: October 18, 2024 Team Status: Inactive Member Role/Relationship Status Dates Dr. Milind Lamb MD Primary Care Provider Active Start: December 09, 2024 End: December 10, 2024 Dr. Miki Sen DO Emergency Provider Active Start: December 09, 2024 End: December 10, 2024 Dr. Zelda Ibarra MD Admit Provider Active St art: December 09, 2024 End: December 10, 2024 Dr. Zelda Ibarra MD Other Provider Active St art: December 09, 2024 End: December 10, 2024 Dr. Ciro Mendosa MD Attending Provider Active Start: December 09, 2024 End: December 10, 2024 Team Status: Active Member Role/Relationship Status Dates Dr. Milind Lamb MD Primary Care Provider Active Start: December 09, 2024 Dr. Miki Sen DO Emergency Provider Active Start: December 09, 2024 Dr. Zelda Ibarra MD Admit Provider Active St art: December 09, 2024 Dr. Zelda Ibarra MD Attending Provider Active Start: December 09, 2024 Dr. Zelda Ibarra MD Other Provider Active St art: December 09, 2024 Team Status: Active Member Role/Relationship Status Dates Dr. Milind Lamb MD Primary Care Provider Active Start: December 10, 2024 Dr. Miki Sen DO Emergency Provider Active Start: December 10, 2024 Dr. Zelda Ibarra MD Admit Provider Active St art: December 10, 2024 Dr. Zelda Ibarra MD Other Provider Active St art: December 10, 2024 Dr. Ciro Mendosa MD Attending Provider Active Start: December 10, 2024 Dr. Ciro Mendosa MD Other Provider Active Star t: December 10, 2024 Team Status: Inactive Member Role/Relationship Status Dates Dr. Milind Lamb MD Primary Care Provider Active Start: January 19, 2025 End: January 19, 2025 Dr. Angella Boggs , DO Attending Provider Active Start: January 19, 2025 End: January 19, 2025 Goals (unrecognized section and content) Goals may be documented in a n alternate sectionGoals may be documented in an alternate sectionGoals may be documented in an alternate sectionGoals may be documented in an alternate sectionGoals may be documented in an alternate sectionGoals may be documented in an alternate sectionGoals may be documented in an alternate section No data available for this section Source Comments (unrecognize d section and content) In the event this informatio n is protected by the Federal Confidentiality of Alcohol and Drug Abuse Patient Records regulations: The Federal rules restrict any use of the information to criminally investigate or prosecute any alcohol or drug abuse patient.[facility] the event this information is protected by the Federal Confidentiality of Alcohol and Drug Abuse Patient Records regulations: The Federal rules restrict any use of the information to criminally investigate or prosecute any alcohol or drug abuse patient.[facility] Reason for Visit (unrecogniz ed section and content) Reason Comments Kidney Problem Reason Comments Appointment Patient Update FOR RECORDS PERTAINING TO PATIENTS WHO ARE [...] BE BASED ON THE PRIMARY CLINICAL RECORDS. [facility] provides no warranty or guarantee of the accuracy or completeness of information in this document.
--- NOTE | 2025-02-25 22:36 | EX.ED.DYSGE1 ---
HPI History of Present Illness Chief Complaint: Flank Pain Informant: patient and family Narrative Narrative: Patient here with son for evaluation of worsening left side pain over the past week. Reports in December seen in the ED diagnosed with a renal mass of 6 to 7 cm. She had remote tobacco history. She denies any hematuria. She could not see urology here due to insurance issues. She had an appointment with urology in [place] with Dr. Quentin Felipe. She states with her insurance somehow her ride got canceled she missed appointment yesterday. Initially appointment was in March however she was contacted to get seen sooner. She states there was plans for imaging of her chest. Increasing pain therefore came here. No dysuria no frequency or hematuria. No fever chills or sweats. Hypertension, diabetes, hyperlipidemia. No weight loss however states decreased appetite. Prior similar symptoms: Yes PFSH PFSH Medical History Sinus tachycardia seen on cardiac catheterization technologist Back pain Tobacco use Anxiety and depression GERD (gastroesophageal reflux disease) HTN (hypertension) Diabetes mellitus, type 2 History of alcoholism COVID-19 Home Medications ?Medication ?Instructions ?Recorded ?Last Taken ?Type flash glucose sensor (FreeStyle #2 ea 04/11/22 Unknown Rx Moncho 2 Sensor kit) blood-glucose meter (FreeStyle #1 ea 07/28/22 Unknown Rx Lite Meter kit) lancets 28 gauge (FreeStyle #100 ea 07/28/22 Unknown Rx Lancets) pen needle, diabetic 32 gauge x #50 ea 07/28/22 Unknown Rx 5/32 (BD Ultra-Fine Josefina Pen Needle) lancets 28 gauge (FreeStyle #100 ea 07/06/23 Unknown Rx Lancets) sertraline 50 mg tablet 50 mg PO DAILY depression 05/02/24 Unknown History blood sugar diagnostic (FreeStyle #100 ea 05/04/24 Unknown Rx Lite Strips) lisinopril 5 mg tablet 5 mg PO DAILY #30 tabs 05/04/24 Unknown Rx metformin 1,000 mg tablet 1,000 mg PO DAILY #30 tabs 05/04/24 Unknown Rx insulin glargine U-300 conc 300 40 unit subcut QHS 12/08/24 Unknown History unit/mL (1.5 mL) subcutaneous pen (Toujeo SoloStar U-300 Insulin) rosuvastatin 5 mg tablet 10 mg PO DAILY 12/08/24 Unknown History insulin lispro 100 unit/mL 10 unit (0.1 mL) subcut TIDAC 12/10/24 02/29/24 Rx subcutaneous pen (Humalog Grover diabetes #15 mL (U-100) Insulin) cefdinir 300 mg capsule 300 mg PO Q12H #14 caps 02/26/25 Unknown Rx Allergy/AdvReac Type Severity Reaction Status Date / Time No Known Allergies Allergy Verified 02/25/25 21:03 Family History Mother Diabetes Father Diabetes Cancer Hx mesothelioma. Surgical History Status post tubal ligation Social History household members: other details: Lives with her son. Her son is also an alcoholic. Smoking Status: Former smoker alcohol intake: current alcohol intake frequency: 0-2 drinks per day Alcohol type: wine details: Prior heavy EtOH abuse, now max 1 glass wine, last 2 wks prior (12/09/24) substance use type: does not use ROS ROS ED Constitutional Constitutional ED: Denies chills, fever(s) or sweats ENT ENT ED: Denies sore throat Cardiovascular Cardiovascular: Denies chest pain, leg edema, palpitations or racing heartbeat Respiratory/Chest Respiratory/Chest: Denies cough, dyspnea or dyspnea on exertion Gastrointestinal Gastrointestinal: Reports abdominal pain; Denies diarrhea, nausea or vomiting Genitourinary Genitourinary ED: Denies dysuria, hematuria or urinary frequency Musculoskeletal Musculoskeletal: Denies back pain, extremity pain or neck pain Integumentary Denies rash or wounds Neurologic Neurologic: Denies headache(s), paresthesias or weakness EXAM Physical Exam Const Vital Signs: 02/25/25 21:04 02/25/25 23:00 02/26/25 00:29 Temperature 97 F L 97.9 F Temperature Source Temporal Pulse Rate 96 70 72 Respiratory Rate 18 18 Blood Pressure 106/74 128/70 H 122/65 H Blood Pressure Mean 84 89 84 Pulse Ox 100 96 97 Oxygen Delivery Method Room Air Positive well nourished and well developed Constitutional Narrative: Nontoxic General Appearance ED: well developed and NAD HEENT Reports moist mucous membranes normocephalic and atraumatic Eyes General Eye ED: Yes normal appearance of both eyes Neck full ROM Chest Wall Chest: Negative for tenderness Resp normal respiratory effort and normal air movement Effort and Inspection: symmetric chest movement; Negative for respiratory distress Cardio regular rate, regular rhythm and no murmurs Peripheral Pulses: pulses 2+ throughout GI normal to inspection, nondistended, normoactive bowel sounds and non-tender Palpation: Negative for guarding or rebound tenderness present Extremity normal to inspection General Extremety ED: Negative for edema or tenderness General Extremity: Negative for edema Neuro oriented x3 and no sensory deficits noted Sensorium / Orientation: awake and alert Skin no rashes or lesions noted and no wounds MDM MDM MDM Narrative Medical decision making narrative: Interventions / MDM: Differential diagnosis: Renal mass, UTI Diagnosis considered but do not suspect: Metastatic cancer however CT notes mass remains localized to the left kidney My EKG interpretation: N/A Imaging independently reviewed and interpreted by myself: CT chest abdomen pelvis with IV contrast: Left renal mass 7.6 cm previously 6.6. No other masses noted. External documents reviewed: N/A Test considered but not ordered:N/A ED course: Nontoxic vital signs stable. Known renal mass increasing pain on same side. IV established and nursing with labs and urine sent. I will order CT chest abdomen pelvis IV contrast for evaluation of this mass. CT with mild enlargement left renal mass 7.1 cm. Labs stable. Urine positive for infection culture sent. She started on cefdinir. She declines any stronger pain medicines for her pain. She states she will use Tylenol. She will follow-up with her urologist. Images were placed on a disk for the patient. Re-evaluation: stable Disposition discussed with patient/family/significant other: Patient and son Case discussed with consulting clinician: N/A This note was generated with [employer] dictation software. It may contain incorrect words, spelling, and punctuation that were not noted in checking the note before signing. Lab Data Attestation: I reviewed the patient's lab results. Labs: Laboratory Results - last 24 hr 02/25/25 02/25/25 21:37 22:01 WBC 6.9 RBC 3.17 L Hgb 9.5 L Hct 28.0 L MCV 88.3 MCH 30.0 MCHC 33.9 RDW Std Deviation 44.0 H RDW Coeff of Nellie 13.6 Plt Count 234 MPV 11.9 Immature Gran % (Auto) 0.300 Neut % (Auto) 50.1 Lymph % (Auto) 38.9 Cecil % (Auto) 7.4 Eos % (Auto) 2.9 Baso % (Auto) 0.4 Absolute Neuts (auto) 3.4 Absolute Lymphs (auto) 2.67 Nucleated RBC % 0 Sodium 139 Potassium 3.8 Chloride 102 Carbon Dioxide 23.6 Anion Gap 14 BUN 15 Creatinine 0.81 Estim Creat Clear Calc 59.57 Est GFR (MDRD) Non-Af 82 BUN/Creatinine Ratio 18.4 Glucose 142 H Calcium 9.8 Total Bilirubin 0.27 AST 19 ALT 18 Alkaline Phosphatase 78 Total Protein 7.1 Albumin 4.4 Globulin 2.8 Albumin/Globulin Ratio 1.6 Urine Color Yellow Urine Clarity Sl Cldy Urine pH 8.0 Ur Specific [place] 1.010 Urine Protein 30 H Urine Glucose (UA) Normal Urine Ketones 5 H Urine Occult Blood Negative Urine Nitrite Negative Urine Bilirubin Negative Urine Urobilinogen Normal Ur Leukocyte Esterase 100 H Urine RBC 0-5 SEEN Urine WBC 10-25 SEEN Ur Squamous Epith Cells 0-5 SEEN Urine Bacteria 1+ Urine Mucus 0 SEEN Radiography Diagnostic Testing: Clinical Impression(s) from Imaging Studies Chest/Abdomen/Pelvis CT 02/25/25 22:17 IMPRESSION: 1. Redemonstrated 6.5 x 7.1 x 6.9 cm left renal mass highly concerning for renal cell carcinoma. 2. No evidence of metastatic disease in the chest, abdomen or pelvis. 3. Moderate colonic stool burden suggesting constipation. 4. No acute findings as imaged. Reading Location: [facility] Discharge Plan Triage Chief Complaint: Flank Pain ED Provider: Zane Gallardo Dx/Rx/DC Orders Clinical Impression: Mass of left kidney, UTI (urinary tract infection) Instructions: Urinary Tract Infections in Women, ED Tumor, Uncertain Cause Prescriptions: New cefdinir 300 mg capsule 300 mg PO Q12H Qty: 14 0RF No Action (DME) FreeStyle Moncho 2 Sensor Kit See Rx Instructions .Route Qty: 2 5RF Rx Instructions: As directed (DME) lancets [FreeStyle Lancets] 28 gauge misc See Rx Instructions .Route Qty: 100 0RF Rx Instructions: As directed (DME) pen needle, diabetic [BD Ultra-Fine Josefina Pen Needle] 32 gauge x 5/32 needle See Rx Instructions .ROUTE .MEDSUPPLY Qty: 50 5RF Rx Instructions: daily (DME) blood-glucose meter [FreeStyle Lite Meter] Kit See Rx Instructions .Route Qty: 1 0RF Rx Instructions: As directed (DME) lancets [FreeStyle Lancets] 28 gauge misc See Rx Instructions .Route Qty: 100 0RF Rx Instructions: As directed sertraline 50 mg tablet 50 mg PO DAILY lisinopril 5 mg Tablet 5 mg PO DAILY Qty: 30 2RF metformin 1,000 mg tablet 1,000 mg PO DAILY Qty: 30 2RF (DME) FreeStyle Lite Strips Strip See Rx Instructions .Route Qty: 100 2RF Rx Instructions: As directed insulin glargine U-300 conc [Toujeo SoloStar U-300 Insulin] 300 unit/mL (1.5 mL) insulin pen 40 unit subcut QHS rosuvastatin 5 mg tablet 10 mg PO DAILY insulin lispro [Humalog KwikPen Insulin] 100 unit/mL Insulin Pen 10 unit subcut TIDAC Qty: 15 3RF Primary Care Provider: YLOI CLARK Referrals: YOLI CLARK CRNP [Primary Care Provider] - Activity Restrictions/Additional Instructions: Images placed on a disk for you. Chest abdomen pelvis performed. No chest mass. Left renal mass 7.1 cm previously 6.6 cm. UA and urine with signs of infection. Culture sent. Take antibiotic prescribed. Follow-up with Dr. Felipe urology as scheduled for discussion of intervention. Print Language: British Disposition Disposition: Home, Self Care Discharge Date/Time: 02/26/25 01:04
[2025-02-25 22:38] LABS: Red Blood Cells-Urine 0-5 SEEN /hpf (0-5); Squamous Epithelial Cells - UA 0-5 SEEN /hpf (5-10)
[2025-02-25] MEDS: 0.9% Normal Saline (1000mL) 1,000 ML 999 ML IV (22:54)
[2025-02-25 23:00] VITALS: BP 128/70; PULSE 70; O2SAT 96
[2025-02-26 00:29] VITALS: BP 122/65; PULSE 72; RESP 18; TEMP 36.6; O2SAT 97
== END 2025-02-26 01:04 | disposition home or self-care (01) ==
PROVIDERS: Emergency Provider Emergency Medicine; PCP Nurse Practitioner Adult Health; Visit Provider Emergency Medicine
DX: N28.89 Other specified disorders of kidney and ureter (principal); F10.21 Alcohol dependence, in remission; E11.9 Type 2 diabetes mellitus without complications; Z79.4 Long term (current) use of insulin; N39.0 Urinary tract infection, site not specified; I10 Essential (primary) hypertension; E78.5 Hyperlipidemia, unspecified; K21.9 Gastro-esophageal reflux disease without esophagitis; Z79.84 Long term (current) use of oral hypoglycemic drugs; Z79.899 Other long term (current) drug therapy; Z87.891 Personal history of nicotine dependence
CPT/HCPCS: 71260; 74177; 80053; 81001; 85025; 87086; 87088; 96360; 96361; 99282; Q9967; A4216

== ENCOUNTER 2025-03-04 18:04 | Emergency (ER) | payer MEDICAID, SELFPAY ==
[2025-03-04 18:06] VITALS: BP 147/72; PULSE 83; RESP 16; TEMP 36.3; O2SAT 100; BMI 23.7
[2025-03-04 18:10] VITALS: BP 163/83; PULSE 83; RESP 18; TEMP 37.1; O2SAT 100
--- NOTE | 2025-03-04 18:38 | EX.ED.DYSGE1 ---
HPI History of Present Illness Chief Complaint: Diarrhea Informant: patient Onset/Context/Timing Onset: Yesterday Context: Gradual Onset Timing: Continuous Quality: Fatigued, tired Location: Generalized Worsened by: Nothing Relieved by: Nothing Narrative Narrative: Patient presents with diarrhea and fatigue that has been getting worse since yesterday. Patient states her diarrhea is watery. Patient states she feels dehydrated. Patient states her blood sugar has been elevated. Patient states she did not take her insulin today because she did not eat. Patient states nothing makes her symptoms better and nothing makes them worse. Patient admits to some nausea but denies any vomiting. Patient denies any melena or hematochezia. Patient denies any dysuria or hematuria but admits to some urinary frequency. Patient states she is thirsty all the time but has not been drinking much. [facility] Medical History (Updated 03/04/25 @ 21:[address] Sanjiv Marcial, DO) Mass of left kidney Sinus tachycardia seen on case monitor Back pain Tobacco use Anxiety and depression GERD (gastroesophageal reflux disease) HTN (hypertension) Diabetes mellitus, type 2 History of alcoholism COVID-19 Home Medications ?Medication ?Instructions ?Recorded ?Last Taken ?Type flash glucose sensor (FreeStyle #2 ea 04/11/22 Unknown Rx Moncho 2 Sensor kit) blood-glucose meter (FreeStyle #1 ea 07/28/22 Unknown Rx Lite Meter kit) lancets 28 gauge (FreeStyle #100 ea 07/28/22 Unknown Rx Lancets) pen needle, diabetic 32 gauge x #50 ea 07/28/22 Unknown Rx 5/32 (BD Ultra-Fine Josefina Pen Needle) lancets 28 gauge (FreeStyle #100 ea 07/06/23 Unknown Rx Lancets) sertraline 50 mg tablet 50 mg PO DAILY depression 05/02/24 Unknown History blood sugar diagnostic (FreeStyle #100 ea 05/04/24 Unknown Rx Lite Strips) lisinopril 5 mg tablet 5 mg PO DAILY #30 tabs 05/04/24 Unknown Rx metformin 1,000 mg tablet 1,000 mg PO DAILY #30 tabs 05/04/24 Unknown Rx insulin glargine U-300 conc 300 40 unit subcut QHS 12/08/24 Unknown History unit/mL (1.5 mL) subcutaneous pen (Tourobyn SoloStar U-300 Insulin) rosuvastatin 5 mg tablet 10 mg PO DAILY 12/08/24 Unknown History insulin lispro 100 unit/mL 10 unit (0.1 mL) subcut TIDAC 12/10/24 02/29/24 Rx subcutaneous pen (Humalog ElíasPen diabetes #15 mL (U-100) Insulin) cefdinir 300 mg capsule 300 mg PO Q12H #14 caps 02/26/25 Unknown Rx Allergy/AdvReac Type Severity Reaction Status Date / Time No Known Allergies Allergy Verified 03/04/25 18:06 Family History Mother Diabetes Father Diabetes Cancer Hx mesothelioma. Surgical History Status post tubal ligation Social History household members: other details: Lives with her son. Her son is also an alcoholic. Smoking Status: Former smoker alcohol intake: current alcohol intake frequency: 0-2 drinks per day Alcohol type: wine details: Prior heavy EtOH abuse, now max 1 glass wine, last 2 wks prior (12/09/24) substance use type: does not use ROS ROS ED Constitutional Constitutional ED: Denies chills or fever(s) Eyes Eyes: Reports blurry vision; Denies change in vision ENT ENT ED: Reports rhinorrhea; Denies sore throat Cardiovascular Cardiovascular: Denies chest pain or palpitations Respiratory/Chest Respiratory/Chest: Denies cough or dyspnea Gastrointestinal Gastrointestinal: Reports diarrhea and nausea; Denies abdominal pain or vomiting Genitourinary Genitourinary ED: Reports urinary frequency; Denies dysuria or hematuria Musculoskeletal Musculoskeletal: Reports back pain; Denies neck pain Integumentary Denies abscess or rash Neurologic Neurologic: Denies headache(s) or weakness Endocrine Endocrinology: Reports polydipsia and polyuria Allergic/Immunologic Allergic/Immunologic ED: Denies mouth swelling or urticaria EXAM Physical Exam Const Vital Signs: 03/04/25 18:06 03/04/25 18:10 03/04/25 19:10 Temperature 97.3 F L 98.7 F 98.7 F Temperature Source Oral Oral Oral Pulse Rate 83 83 76 Respiratory Rate 16 18 18 Blood Pressure 147/72 H 163/83 H 155/76 H Blood Pressure Mean 97 109 102 Pulse Ox 100 100 99 Oxygen Delivery Method Room Air Room Air Room Air 03/04/25 20:25 Temperature 98.5 F Temperature Source Oral Pulse Rate 80 Respiratory Rate 22 H Blood Pressure 164/77 H Blood Pressure Mean 106 Pulse Ox 97 Oxygen Delivery Method Room Air Positive well nourished and well developed General Appearance ED: well developed and NAD HEENT Reports moist mucous membranes Neck supple and no JVD Resp normal respiratory effort and clear to auscultation bilaterally Cardio regular rate and regular rhythm GI non-tender and non-distended Palpation: soft Neuro oriented x3, CN's II-XII intact bilaterally and no sensory deficits noted Sensorium / Orientation: alert Motor Exam: strength 5/5 throughout Psych mental status grossly normal MDM MDM MDM Narrative Medical decision making narrative: Differential diagnoses includes diabetic ketoacidosis, dehydration, electrolyte abnormality, viral illness, and urinary tract infection. CBC will be obtained to assess for leukocytosis and anemia. Basic metabolic profile will be obtained to assess for electrolyte abnormality and renal function. Urinalysis will be obtained to assess for urinary tract infection and hematuria. Beta hydroxybutyrate will be obtained to assess for diabetic ketoacidosis. Serum lactate will be obtained to assess for lactic acidosis. Venous blood gas will be obtained to assess for acidosis. History & Record Review Additional record(s) reviewed:: Prior ED visit and Prior labs Lab Data Attestation: I reviewed the patient's lab results. Lab results narrative: CBC was reviewed. There is a mild anemia with a hemoglobin of 9.7 and hematocrit 29.9. Basic metabolic profile was reviewed. His glucose was elevated at 572. The remainder is within normal limits. Anion gap was normal. CO2 was normal. Serum lactate was reviewed and was normal at 1.0. Beta hydroxybutyrate was reviewed and was slightly elevated at 0.5. Labs: Laboratory Results - last 24 hr 03/04/25 03/04/25 18:09 18:41 WBC 4.6 RBC 3.30 L Hgb 9.7 L Hct 29.9 L MCV 90.6 MCH 29.4 MCHC 32.4 RDW Std Deviation 43.4 RDW Coeff of Nellie 13.1 Plt Count TNP MPV TNP Immature Gran % (Auto) 0.000 Neut % (Auto) 51.8 Lymph % (Auto) 36.6 [place] % (Auto) 9.7 Eos % (Auto) 1.5 Baso % (Auto) 0.4 Absolute Neuts (auto) 2.4 Absolute Lymphs (auto) 1.70 Nucleated RBC % 0 Differential Comment SCANNED Platelet Estimate ADEQUATE Sodium 133 Potassium 3.9 Chloride 98 Carbon Dioxide 20.5 L Anion Gap 14 BUN 13 Creatinine 0.94 Estim Creat Clear Calc 51.33 Est GFR (MDRD) Non-Af 68 BUN/Creatinine Ratio 13.9 Glucose 572 H* Lactic Acid 1.0 Calcium 9.3 b-Hydroxybutyric mmol/L 0.5 H POC Glucose > 500 H* ABG Data ABG results: ABG 03/04/25 19:08 Specimen Type LIZY Sample Site Not entered VBG pH 7.44 H VBG pO2 28 VBG HCO3 24 VBG Total CO2 25 VBG O2 Sat (Calc) 55 VBG Base Excess 0 POC Mix VBG pCO2 Pt Tmp 35.7 L O2 Delivery Device Room Air Treatment and Re-Evaluation :: Patient was given IV fluids and Zofran. Patient was advised of her findings. Patient was given a dose of Humalog here. Patient was instructed to drink plenty of fluids. Patient was instructed to continue her insulin as prescribed. Patient was instructed to follow-up with her primary care physician in 3 to 5 days. Patient was instructed to return if worse in any way. Patient understood and was agreeable with the plan. All questions were answered. Discharge Plan Triage Chief Complaint: Diarrhea ED Provider: Sanjiv Marcial Dx/Rx/DC Orders Clinical Impression: Hyperglycemia, Diarrhea, Diabetes mellitus Instructions: ED Diabetic Hyperglycemia, ED Diarrhea, Unknown Cause Prescriptions: No Action (DME) FreeStyle Moncho 2 Sensor Kit See Rx Instructions .Route Qty: 2 5RF Rx Instructions: As directed (DME) lancets [FreeStyle Lancets] 28 gauge misc See Rx Instructions .Route Qty: 100 0RF Rx Instructions: As directed (DME) pen needle, diabetic [BD Ultra-Fine Josefina Pen Needle] 32 gauge x 5/32 needle See Rx Instructions .ROUTE .MEDSUPPLY Qty: 50 5RF Rx Instructions: daily (DME) blood-glucose meter [FreeStyle Lite Meter] Kit See Rx Instructions .Route Qty: 1 0RF Rx Instructions: As directed (DME) lancets [FreeStyle Lancets] 28 gauge misc See Rx Instructions .Route Qty: 100 0RF Rx Instructions: As directed sertraline 50 mg tablet 50 mg PO DAILY lisinopril 5 mg Tablet 5 mg PO DAILY Qty: 30 2RF metformin 1,000 mg tablet 1,000 mg PO DAILY Qty: 30 2RF (DME) FreeStyle Lite Strips Strip See Rx Instructions .Route Qty: 100 2RF Rx Instructions: As directed insulin glargine U-300 conc [Toujeo SoloStar U-300 Insulin] 300 unit/mL (1.5 mL) insulin pen 40 unit subcut QHS rosuvastatin 5 mg tablet 10 mg PO DAILY insulin lispro [Humalog KwikPen Insulin] 100 unit/mL Insulin Pen 10 unit subcut TIDAC Qty: 15 3RF cefdinir 300 mg capsule 300 mg PO Q12H Qty: 14 0RF Primary Care Provider: YOLI CLARK Referrals: YOLI CLARK CRNP [Primary Care Provider] - 3-5 Days Print Language: Austrian Disposition Disposition: Home, Self Care
--- OUTSIDE RECORDS SUMMARY | 2025-03-04 19:05 | XMS RPT_ITS | CCD ---
Author Organization [facility] Care Team Providers Care Supervising Nurse Name Role Phone SUMMER ALVES Attending Unavailable [...] Admit Provider Herman, Dr. Sarmiento Attending Provider Herman, Dr. Sarmiento Other Provider Soraida, Dr. Sanjana Beltran Attending Provider Soraida, Dr. Sanjana Beltran Other [...] Fred RICH, Dr. Zelda Cameron Admit Provider Fred RICH, Dr. Zelda Cameron Attending Provider Mckinley CARY, Dr. Livingston Emergency Provider Fred RICH, Dr. Zelda Cameron Admit Provider Fred RICH, Dr. Zelda Cameron Other Provider Navya RICH, Dr. Tanner Attending Provider Unavaila ble Nayva RICH, Dr. Tanner Other Provider Unavailable MAST POWER REGULATOR-LINE ASSEMBLER AIRCRAFT, YOLI Primary Care Physician [phone] Dr. Angella Boggs DO Attending Provider MAST POWER REGULATOR-LINE ASSEMBLER AIRCRAFT, YOLI Attending Unavailabl e MAST POWER REGULATOR-LINE ASSEMBLER AIRCRAFT, YOLI Primary Care Unavailabl e Unavailable Primary Care Provider Unavaildo Lamb MD, Dr. Vaz Primary Care Provider [phone] Dr. Zane Gallardo DO Emergency Provider [phone] MAST REVENUE TAX SPECIALIST, YOLI Primary Care Provider MEREDITH FELIPE Attending Unavailable Angella Boggs Attending Unavailable Milind Lamb Primary Care Unavailable Milind Lamb Referring Unavailable Milind Lamb Attending Unavailable Milind Lamb Primary Care Unavailable MAST, YOLI Primary Care Unavailable Zane Gallardo Attending Unavailable KittoCiro winkler Attending Unavailable White, Zelda L Consulting Unavailable White, Zelda L Admitting Unavailable Lamb, Milind Primary Care Unavailable joe DarrellCiro ng Admitting Unavailable KorSanjana domingo Attending Unavailable Lamb, Milind Primary Care Unavailable Ciro Fernández Consulting Unavailable Adonis, Milind Referring Unavailable Lamb, Milind Attending Unavailable Lamb, Milind Primary Care Unavailable Nasir Norris Attending Unavailable Lamb, Milind Referring Unavailable Lamb, Milind Primary Care Unavailable White, Zelda L Attending Unavailable White, Zelda L Consulting Unavailable White, Zelda L Admitting Unavailable Lamb, Milind Primary Care Unavailable Kittoe, Ciro Attending Unavailable White, Zelda L Consulting Unavailable White, Zelda L Admitting Unavailable Lamb, Milind Primary Care Unavailable Ciro Mendosa Consulting Unavailable de Darrell, Ciro Admitting Unavailable Lamb, Milind Primary Care Unavailable Fernández, Ciro Attending Unavailable de DarrellCiro ng Consulting Unavailable Koram, Sanjana Beltran Attending Unavailable Koram, Sanjana Beltran Consulting Unavailable Allergies Allergy Classification Reported Allergen(s) Allergy Type Date of Onset Reaction(s) Facility (5 sources) Latex; Translations: [LATEX] Drug Allergy 07-09-[address] [facility] Medications Current Medications Medication Drug Class(es) Dates Sig (Normalized) Sig (Original) Blood-Glucose Meter (Freestyle Lite Meter) kit (12 sources) Start: 07-28-2022 Blood-Glucose Meter (Freestyle Lite [...] As directed cefdinir 300 mg oral capsule (6 sources) Cephalosporin Antibacterial Start: 02-26-2025 take 1 capsule by mouth every twelve hours Cefdinir 300 mg capsule Active 300 mg PO Q12H 14 0 February 26, 2025 12:00am Start: 05-04-2024 End: 12-08-2024 take 1 capsule by mouth twice daily Cefdinir 300 mg capsule Discontinued 300 mg PO TWICE A DAY 10 May 04, 2024 12:00am December 08, 2024 8:03pm Dexcom G7 Sensor (1 source) Start: 01-18-2025 Dexcom G7 Sens or See Instructions, Place once sensor to the back of the upper arm every 10 days. Use reader or phone jason for daily blood sugar checks. 1 month supply., # 3 EA, 11 Refill(s), Pharmacy: [facility]/pharmacy #[id number], Type 2 diabetes mellitus with hyperlipidemia, 161, cm, 01/18/25 9:58:00 EDT, Height, 60, kg, 01/18/25 9:58:00 EDT, Dosing Weight Start Date: 01/18/25 Status: Ordered Quantity: 3.0 Unit: EA Repeat number: 12 Indications: Type 2 diabetes mellitus with other specified complication; Flash Glucose Sensor (Freestyle Moncho 2 Sensor) kit (17 sources) Start: 04-11-2022 Flash Glucose Sensor (Freestyle [...] injector (20 sources) Insulin Analog Start: 01-18-2025 Magnus zapata Prefilled Pen 300 units/mL subcutaneous solution Dose : 40 unit(s) =, 0 Refill(s) Start Date: 01/18/25 Status: Ordered Repeat number: 1 Start: 05-04-2024 End: 12-08-2024 Insulin Glargine (Basaglar Kwikpen U-100 Insulin) 100 unit/mL (3 mL) insulin pen Discontinued 30 U SC DAILY 15 May 04, 2024 12:00am December 08, 2024 8:02pm [...] 20 U SC TWICE A DAY 6 July 28, 2022 3:06pm July 05, 2023 [...] Insulin) 300 unit/mL (1.5 mL) insulin pen (4 sources) Start: 12-08-2024 Insulin Glargi ne U-300 Conc (Toujeo Solostar U-300 Insulin) 300 [...] TID, # 9 mL, 1 Refill(s), Pharmacy: [facility]/pharmacy #[id number], 161, cm, 01/18/25 9:58:00 EDT, Height, [...] Converting Enzyme Inhibitor Start: 05-04-2024 End: 07-17-2025 take 1 tablet by mouth once daily Lisinopril 5 mg Tablet Active 5 mg PO DAILY 30 May 04, 2024 12:00am Start: 03-01-2024 End: 12-08-2024 take 2 tablets [...] (20 sources) Biguanide Start: 05-03-2024 End: 12-08-2024 take 1 tablet by mouth once daily Metformin 1,000 mg tablet Active 1000 mg PO DAILY 30 May 04, 2024 12:00am Start: 07-05-2023 End: [...] 12:00am rosuvastatin calcium 10 mg oral tablet (5 sources) HMG-CoA Reductase Inhibitor Start: 01-19-2025 rosuvastatin 10 mg oral tablet Dose : 10 mg = 1 tab(s), Oral, qDay, # 90 tab(s), 3 Refill(s), Pharmacy: [facility]/pharmacy #[id number], 161, cm, 01/18/25 9:58:00 EDT, Height, kg, 01/18/25 9:58:00 EDT, Dosing Weight Start Date: 01/19/25 Status: Ordered Quantity: 90.0 Unit: tab(s) Repeat number: 4 Start: 12-08-2024 take 2 tablets by mo uth once daily Rosuvastatin 5 mg tablet Active 10 mg PO DAILY December 08, 2024 12:00am Start: 12-08-2024 take 1 tablet by mi once daily Rosuvastatin 5 mg tablet Active 5 mg PO DAILY December 08, 2024 12:00am sertraline 50 mg oral tablet (20 sources) Serotonin Reuptake Inhibitor Start: 05-02-2024 End: 07-17-2025 take 1 tablet by mouth once daily Sertraline 50 mg tablet Active 50 mg PO DAILY May 02, 2024 12:00am depression Start: 07-26-2022 End: 03-01-2024 take 1 tablet [...] / HYDROcodone bitartrate 5 mg oral tablet (10 sources) Opioid Agonist Start: 07-01-2023 End: 07-02-2023 Hydrocodone-Acetami nophen 5-325 mg tablet Discontinued 1 {tbl} PO EVERY 6 HOURS NEEDED as needed for Pain 12 3 0 July 01, 2023 July 02, 2023 10:26pm Low back pain Low back pain, unspecified Start: 07-01-2023 End: 07-02-2023 take 1 tablet by mouth every six hours as needed Hydrocodone-Acetaminophen Discontinued 1 TABLET PO EVERY 6 HOURS NEEDED 12 3 July 01, 2023 July 02, 2023 9:26pm diazePAM 2 mg oral tablet (10 sources) Benzodiazepine Start: 07-01-2023 End: 03-01-2024 take 1 tablet by mouth three times daily as needed for pain Diazepam 2 mg tablet Discontinued 2 mg PO 3 TIMES DAILY NEEDED as needed for back pain 10 0 July 01, 2023 1:00am March 01, 2024 6:09am dicyclomine hydrochloride 10 mg oral capsule (9 sources) Anticholinergic Start: 07-02-2023 End: 07-02-2023 take [...] Solostar) 300 unit/mL (3 mL) insulin pen (10 sources) Start: 03-01-2024 End: 05-04-2024 Insulin Glargine [...] insulin pen Discontinued 30 U SC DAILY 6 July 06, 2023 1:00am March 01, 2024 6:09am Start: 07-06-2023 End: 03-01-2024 Insulin Glargine U-300 Conc (Toujeo Max U-300 Solostar) 300 unit/mL (3 mL) insulin pen Discontinued 30 U SC DAILY July 06, 2023 1:00am March 01, 2024 6:09am Insulin Glargine-Yfgn (18 sources) Start: 03-06-2022 End: 04-11-2022 Insulin Glargine-Yfgn 100 un it/mL (3 mL) Insulin Pen Discontinued 15 U SC AT BEDTIME 0 0 March 06, 2022 12:00am April 11, [...] 2022 12:00am naproxen 500 mg oral tablet (14 sources) Nonsteroidal Anti-inflammatory Drug Start: 07-26-2022 End: 03-01-2024 take 1 tablet by mouth once daily as needed for pain Naproxen 500 mg tablet Discontinued 500 mg PO DAILY as needed for Pain July 26, 2022 1:00am March 01, 2024 6:08am ondansetron 4 mg disintegrating oral tablet (9 sources) Serotonin-3 Receptor Antagonist Start: 07-02-2023 End: 07-02-2023 take 1 tablet by mouth every eight hours as needed for nausea Ondansetron 4 mg tablet,disintegra ting Discontinued 4 mg PO EVERY 8 HOURS NEEDED as needed for Nausea 10 0 July 02, 2023 1:00am July 02, 2023 10:26pm potassium chloride 20 meq extended release oral tablet (20 sources) Start: 03-05-2024 End: 05-02-2024 take 1 tablet by mouth twice daily Potassium Chloride 20 mEq tablet extended release Discontinued 20 meq PO TWICE A DAY 20 0 March 05, 2024 12:00am May 02, 2024 [...] 2022 9:11am predniSONE 20 mg oral tablet (18 sources) Start: 06-19-2020 End: 06-24-2020 take 2 [...] Classification Problem Date Documented Da te Episodic/Chronic Abdominal pain (1 source) Unspecified abdominal pain; Translations: [Unspecified abdominal pain] Onset: 03-03-2025 Episodic Acute and unspecified renal failure (20 sources) [...] unspecified] Onset: 01-18-2025 01-18-2025 Chronic Essential hypertension (14 sources) Malignant hypertension; Translations: [Essential (primary) hypertension] Onset: 05-04-2024 05-12-2024 Chronic Fluid and electrolyte disorders (20 sources) Dehydration; Translations: [Dehydration] Episodic Genitourinary symptoms and ill-defined conditions (9 sources) Pyuria; Translations: [Pyuria] 07-02-2023 Episodic Neoplasms of unspecified nature or uncertain behavior (3 sources) Neoplasm of uncertain behavior of left kidney; Translations: [Neoplasm of uncertain behavior of left kidney] Onset: 02-24-2025 02-24-2025 Episodic Other aftercare (2 sources) alf (current) use of insulin; Translations: [alf (current) use of insulin] Onset: 01-18-2025 Episodic Other diseases of kidney and ureters (5 sources) Renal mass; Translations: [Other specified disorders of kidney and ureter] Chronic Other gastrointestinal disorders (9 sources) Constipation; Translations: [Constipation, unspecified] 07-02-2023 Episodic Other lower respiratory disease (16 sources) Cough; Translations: [Cough] 05-11-2022 Episodic Other lower respiratory disease (14 sources) Tachypnea; Translations: [Tachypnea, not elsewhere classified] 07-26-2022 Episodic Other lower respiratory disease (3 sources) Tachypnea, not elsewhere classified; Translations: [Tachypnea] 07-26-2022 Episodic Other screening for suspected conditions (not mental disorders or infectious disease) (20 sources) Serum creatinine raised; Translations: [Other specified abnormal findings of blood chemistry] 07-26-2022 Episodic Other upper respiratory disease (9 sources) Bleeding from nose; Translations: [Epistaxis] 07-02-2023 Episodic Other upper respiratory infections (16 sources) Acute upper respiratory infection; Translations: [Acute upper respiratory infection, unspecified] 05-11-2022 Episodic Pancreatic disorders (not diabetes) (20 sources) Pancreatitis; Translations: [Acute pancreatitis without necrosis or infection, unspecified] Episodic Residual codes; unclassified (5 sources) Noncompliance with medication regimen; Translations: [Noncompliance with medication regimen] 05-12-2024 Episodic Spondylosis; intervertebral disc disorders; other back problems (20 sources) Low back pain; Translations: [Low back pain] 07-01-2023 Episodic Unclassified (1 source) First encounter by subject 01-18-2025 Unclassified (1 source) Long-term current use of insulin 01-18-2025 Unclassified (2 sources) Autogenerated Problem Onset: 03-02-2025 03-02-2025 Unclassified (1 source) Patient's other noncompliance with medication regimen for other reason; Translations: [Patient's other noncompliance with medication regimen for other reason] Onset: 05-04-2024 Viral infection (20 sources) Disease caused by 2019-nCoV; Translations: [COVID-19] 05-03-2022 Episodic Past or Other Problems Problem Classification Problem Date Documented Da te Episodic/Chronic Cardiac dysrhythmias (20 sources) Sinus tachycardia; Translations: [Tachycardia, unspecified] Onset: 05-04-2024 07-26-2022 Episodic Malaise and fatigue (12 sources) Malaise; Translations: [Other malaise] Onset: 05-04-2024 05-12-2024 Episodic Urinary tract infections (7 sources) Urinary tract infectious disease; Translations: [Urinary tract infection, site not specified] Onset: 05-04-2024 05-03-2024 Episodic Results Test Name Value Interpretation Reference Range Facility Urine Cultureon 03-03-2025 [facility] Identification and sensitivity to follow. Urine Culture Urine Culture Gram positive pk [place] Count 50,000-80,000 Normal [facility] Comment on above: Performed By: #### M 100.2200 ####[facility] [address] [place], [address] [facility] 03-02-2025 [facility] Telephone (UROLAE) LINA MEADOWS ([id number]) 1960 F Date Time Provider Department 03/02/25 MEREDITH FELIPE During your visit today, we recorded the following information about you: Daysi Giron 03/02/2025 9:05 AM Signed RAL Left Radical Nephrectomy Neoplasm of uncertain behavior of left kidney UCx expected by 03/11/25 Surgery: 03/21/25 12:30 PM [facility] Arrive at 10:30 AM HANDP same day I will contact patient to confirm surgery details. Note: Pt is to drop off disk with imaging from 12/08/24. CXR AND labs may be required after Dr. Wekaila gustafson. Daysi Giron 03/02/2025 2:25 PM Signed Left message for patient to call mark. Allergies As of Date: 03/02/2025 Noted Allergy Reaction LATEX 07/09/2012 2 - Rash Date Reviewed: 07/09/2012 Reviewed by: Corwin Mojica - Fully Assessed Reason for Visit: Surgery Scheduled [Other] Meds Comments as of 07/09/2012: No daily medications Problem List As Of Date: 03/02/2025 (None) Encounter Status:Closed by DAYSI GIRON on 03/02/25 Normal [facility] Absolute lymphocyte countOrd ered By: ED PROVIDER on 02-25-2025 Lymphocytes Auto (Unsp spec) [#/Vol] 2.67 10*3/uL 0.83-4.51 [facility] Absolute neutrophil countOrd ered By: ED PROVIDER on 02-25-2025 Neutrophils (Bld) [#/Vol] 3.4 10*3/uL 2.0-7.7 [facility] Anion gap in Serum or Plasma Ordered By: Zane Gallardo on 02-25-2025 Anion gap [Moles/Vol] 14 mmol/L 5-15 [facility] Automated lymphocyte count a s percentage of total leukocytesOrdered By: ED PROVIDER on 02-25-2025 Lymphocytes/100 WBC Auto (Unsp spec) 38.9 % 19-41 [facility] BUN/creatinine ratioOrdered By: Zane Gallardo on 02-25-2025 Urea nitrogen/Creatinine [Mass ratio] 18.4 mg/mg 10-20 [facility] Basophil percentageOrdered B y: ED PROVIDER on 02-25-2025 Basophils/100 WBC (Bld) 0.4 % 0-1 [facility] Bilirubin Test strip Ql (U)O rdered By: Zane Gallardo on 02-25-2025 Bilirubin Ql (U) Negative Negative [facility] Bilirubin, totalOrdered By: Zane Gallardo on 02-25-2025 Bilirubin [Mass/Vol] 0.27 mg/dL 0.00-1.30 [facility] CBC W/Diff, Automatedon 02-05 Absolute Lymph 2.67 X10 3/uL Normal 0.83-4.51 [facility] Comment on above: Performed By: #### L 500.4050, L100.0100 ####[facility] [address] [place], [address] Absolute Neut 3.4 X10 3/uL Normal 2.0-7.7 [facility] Comment on above: Performed By: #### L 500.4050, L100.0100 ####[facility] [address] [place], [address] Basophils/100 WBC (Bld) 0.4 % Normal 0-1 [facility] Comment on above: Performed By: #### L 500.4050, L100.0100 ####[facility] [address] [place], [address] Eosinophils/100 WBC (Bld) 2.9 % Normal 0-5 [facility] Comment on above: Performed By: #### L 500.4050, L100.0100 ####[facility] [address] [place], [address] Erythrocyte distribution width (RBC) [Ratio] 13.6 % Normal 11.6-14.6 [facility] Comment on above: Performed By: #### L 500.4050, L100.0100 ####[facility] [address] [place], [address] Hematocrit (Bld) [Volume fraction] 28.0 % Low 37-47 [facility] Comment on above: Performed By: #### L 500.4050, L100.0100 ####[facility] [address] [place], [address] Hemoglobin (Bld) [Mass/Vol] 9.5 g/dL Low 12.0-15.0 [facility] Comment on above: Performed By: #### L 500.4050, L100.0100 ####[facility] [address] [place], [address] IG% 0.300 Normal 0.0-0.9 [facility] Comment on above: Result Comment: IG% - Immature Granulocytes (promyelocytes, myelocytes andmetamyelocytes) > 1% indicates that a LEFT SHIFT is Present. Performed By: #### L 500.4050, L100.0100 ####[facility] [address] [place], [address] Lymphocytes/100 WBC (Bld) 38.9 % Normal 19-41 [facility] Comment on above: Performed By: #### L 500.4050, L100.0100 ####[facility] [address] [place], [address] MCH (RBC) [Entitic mass] 30.0 pg Normal 27.0-32.0 [facility] Comment on above: Performed By: #### L 500.4050, L100.0100 ####[facility] [address] [place], [address] MCHC (RBC) [Mass/Vol] 33.9 g/dL Normal 32-36 [facility] Comment on above: Performed By: #### L 500.4050, L100.0100 ####[facility] [address] [place], [address] MCV (RBC) [Entitic vol] 88.3 fL Normal 81-99 [facility] Comment on above: Performed By: #### L 500.4050, L100.0100 ####[facility] [address] [place], [address] Monocytes/100 WBC (Bld) 7.4 % Normal 0-10 [facility] Comment on above: Performed By: #### L 500.4050, L100.0100 ####[facility] [address] [place], [address] Neutrophils/100 WBC (Bld) 50.1 % Normal 47-70 [facility] Comment on above: Performed By: #### L 500.4050, L100.0100 ####[facility] [address] [place], [address] Nucleated RBC (Bld) [#/Vol] 0 10*3/uL Normal 0-5 [facility] Comment on above: Performed By: #### L 500.4050, L100.0100 ####[facility] [address] [place], [address] Platelet mean volume (Bld) [Entitic vol] 11.9 fL Normal 6.2-12.0 [facility] Comment on above: Performed By: #### L 500.4050, L100.0100 ####[facility] [address] [place], [address] Platelets (Bld) [#/Vol] 234 10*3/uL Normal 150-450 [facility] Comment on above: Performed By: #### L 500.4050, L100.0100 ####[facility] [address] [place], [address] RBC (Bld) [#/Vol] 3.17 10*6/uL Low 4.2-5.4 [facility] Comment on above: Performed By: #### L 500.4050, L100.0100 ####[facility] [address] [place], [address] RDW SD 44.0 fl High 35.1-43.9 [facility] Comment on above: Performed By: #### L 500.4050, L100.0100 ####[facility] [address] [place], [address] WBC (Bld) [#/Vol] 6.9 10*3/uL Normal 4.4-11.0 [facility] Comment on above: Performed By: #### L 500.4050, L100.0100 ####[facility] [address] [place], [address] CT Chest, Abd, Pel w/Contras ton 02-25-2025 CT Chest, Abd, Pel w/Contrast Normal [facility] Carbon dioxide, total [Moles /volume] in Central venous bloodOrdered By: Zane Gallardo on 02-25-2025 CO2 [Moles/Vol] 23.6 mmol/L 21.0-32.0 [facility] Chloride assayOrdered By: Harish Gallardo on 02-25-2025 Chloride [Moles/Vol] 102 mmol/L 98-108 [facility] Comprehensive Metabolic Prof ilon 02-25-2025 Albumin [Mass/Vol] 4.4 g/dL Normal 3.4-4.8 [facility] Comment on above: Performed By: #### L 500.4050, L100.0100 ####[facility] [address] [place], [address] Albumin/Globulin [Mass ratio] 1.6 {ratio} Normal 0.9-2.4 [facility] Comment on above: Performed By: #### L 500.4050, L100.0100 ####[facility] [address] [place], [address] ALK PHOS 78 U/L Normal 35-104 [facility] Comment on above: Performed By: #### L 500.4050, L100.0100 ####[facility] [address] [place], [address] ALT [Catalytic activity/Vol] 18 U/L Normal <=34 [facility] Comment on above: Performed By: #### L 500.4050, L100.0100 ####[facility] [address] [place], [address] AST [Catalytic activity/Vol] 19 U/L Normal <=31 [facility] Comment on above: Performed By: #### L 500.4050, L100.0100 ####[facility] [address] [place], [address] Bilirubin [Mass/Vol] 0.27 mg/dL Normal 0.00-1.30 [facility] Comment on above: Performed By: #### L 500.4050, L100.0100 ####[facility] [address] [place], [address] BUN/CRE 18.4 RATIO Normal 10-20 [facility] Comment on above: Performed By: #### L 500.4050, L100.0100 ####[facility] [address] [place], [address] Calcium [Mass/Vol] 9.8 mg/dL Normal 7.6-11.0 [facility] Comment on above: Performed By: #### L 500.4050, L100.0100 ####[facility] [address] [place], [address] Chloride [Moles/Vol] 102 mmol/L Normal 98-108 [facility] Comment on above: Performed By: #### L 500.4050, L100.0100 ####[facility] [address] [place], [address] CO2 [Moles/Vol] 23.6 mmol/L Normal 21.0-32.0 [facility] Comment on above: Performed By: #### L 500.4050, L100.0100 ####[facility] [address] [place], [address] Creatinine [Mass/Vol] 0.81 mg/dL Normal 0.70-1.20 [facility] Comment on above: Performed By: #### L 500.4050, L100.0100 ####[facility] [address] [place], [address] ECRCL 59.57 ml/min Normal 50-250 [facility] Comment on above: Performed By: #### L 500.4050, L100.0100 ####[facility] [address] [place], [address] GAP 14 Normal 5-15 [facility] Comment on above: Performed By: #### L 500.4050, L100.0100 ####[facility] [address] [place], [address] GFR/1.73 sq M.predicted among non-blacks MDRD (S/P/Bld) [Vol rate/Area] 82 mL/min/{1.73_m2} Normal >60 [facility] Comment on above: Result Comment: mL/m in/1.73m2 CKD-EPI Creatinine Equation (2020) Performed By: #### L 500.4050, L100.0100 ####[facility] [address] [place], [address] Globulin (S) [Mass/Vol] 2.8 g/dL Normal 2.2-4.2 [facility] Comment on above: Performed By: #### L 500.4050, L100.0100 ####[facility] [address] [place], [address] Glucose [Mass/Vol] 142 mg/dL High 70-99 [facility] Comment on above: Performed By: #### L 500.4050, L100.0100 ####[facility] [address] [place], [address] Potassium [Moles/Vol] 3.8 mmol/L Normal 3.3-5.1 [facility] Comment on above: Performed By: #### L 500.4050, L100.0100 ####[facility] [address] [place], [address] Sodium [Moles/Vol] 139 mmol/L Normal 133-145 [facility] Comment on above: Performed By: #### L 500.4050, L100.0100 ####[facility] [address] [place], [place], [id number] T PROT 7.1 g/dL Normal 5.9-8.4 [facility] Comment on above: Performed By: #### L 500.4050, L100.0100 ####[facility] [address] [place], [address] Urea nitrogen [Mass/Vol] 15 mg/dL Normal 4-19 [facility] Comment on above: Performed By: #### L 500.4050, L100.0100 ####[facility] [address] [place], [place], [address] Emergency Department Summary on 02-25-2025 Emergency Department Summary Normal [facility] Eosinophil percentageOrdered By: ED PROVIDER on 02-25-2025 Eosinophils/100 WBC (Bld) 2.9 % 0-5 [facility] Erythrocyte distribution wid th ratioOrdered By: ED PROVIDER on 02-25-2025 Erythrocyte distribution width (RBC) [Ratio] 13.6 % 11.6-14.6 [facility] Erythrocyte distribution wid th standard deviationOrdered By: ED PROVIDER on 02-25-2025 Erythrocyte distribution width (RBC) [Ratio] 44.0 fl High 35.1-43.9 [facility] Glomerular filtration rate ( GFR) estimation/1.73 sq m using serum, plasma, or whole bOrdered By: Zane Gallardo on 02-25-2025 GFR/1.73 sq M.predicted among non-blacks MDRD (S/P/Bld) [Vol rate/Area] 82 mL/min/{1.73_m2} >60 [facility] Comment on above: mL/min/1.73m2 CKD-EP I Creatinine Equation (2020) Hematocrit Auto (Bld) [Volum e fraction]Ordered By: ED PROVIDER on 02-25-2025 Hematocrit (Bld) [Volume fraction] 28.0 % Low 37-47 [facility] Hemoglobin measurementOrdere d By: ED PROVIDER on 02-25-2025 Hemoglobin (Bld) [Mass/Vol] 9.5 g/dL Low 12.0-15.0 [facility] Immature granulocytes/100 WB C Auto (Bld)Ordered By: ED PROVIDER on 02-25-2025 Immature granulocytes/100 WBC (Bld) 0.300 % 0.0-0.9 [facility] Comment on above: IG% - Immature Granu locytes (promyelocytes, myelocytes and metamyelocytes) > 1% indicates that a LEFT SHIFT is Present. Ketones Test strip Ql (U)Ord ered By: Zane Gallardo on 02-25-2025 Ketones Ql (U) 5 mg/dl High Negative [facility] Laboratory - Chemistry and C hemistry - challengeOrdered By: Zane Gallardo on 02-25-2025 AST [Catalytic activity/Vol] 19 U/L <32 [facility] MCV (mean corpuscular volume ) determinationOrdered By: ED PROVIDER on 02-25-2025 MCV (RBC) [Entitic vol] 88.3 fL 81-99 [facility] Mean corpuscular hemoglobin (MCH) determinationOrdered By: ED PROVIDER on 02-25-2025 MCH (RBC) [Entitic mass] 30.0 pg 27.0-32.0 [facility] Mean corpuscular hemoglobin concentration (MCHC) determinationOrdered By: ED PROVIDER on 02-25-2025 MCHC (RBC) [Mass/Vol] 33.9 g/dL 32-36 [facility] Mean platelet volume determi nationOrdered By: ED PROVIDER on 02-25-2025 Platelet mean volume (Bld) [Entitic vol] 11.9 fL 6.2-12.0 [facility] Microscopic analysis of urin e for red blood cells (RBC)Ordered By: Zane Gallardo on 02-25-2025 Microscopic analysis of urine for red blood cells (RBC) 0-5 SEEN /hpf 0-5 [facility] Monocyte percentageOrdered B y: ED PROVIDER on 02-25-2025 Monocytes/100 WBC (Bld) 7.4 % 0-10 [facility] Mucus LM Ql (Urine sed)Order ed By: Zane Gallardo on 02-25-2025 Mucus Ql (Urine sed) 0 SEEN /hpf [facility] Neutrophil percentageOrdered By: ED PROVIDER on 02-25-2025 Neutrophils/100 WBC (Bld) 50.1 % 47-70 [facility] Nitrite Test strip Ql (U)Ord ered By: Zane Gallardo on 02-25-2025 Nitrite Ql (U) Negative Negative [facility] Nucleated red blood cell per centageOrdered By: ED PROVIDER on 02-25-2025 Nucleated RBC/100 WBC (Bld) [Ratio] 0 % 0-5 [facility] Platelet countOrdered By: ED PROVIDER on 02-25-2025 Platelets (Bld) [#/Vol] 234 10*3/uL 150-450 [facility] Potassium measurement (mass/ volume)Ordered By: Zane Gallardo on 02-25-2025 Potassium (Unsp spec) [Mass/Vol] 3.8 mmol/L 3.3-5.1 [facility] Protein Test strip Ql (U)Ord ered By: Zane Gallardo on 02-25-2025 Protein Ql (U) 30 mg/dl High Negative [facility] RBC Auto (Bld) [#/Vol]Ordere d By: ED PROVIDER on 02-25-2025 RBC (Bld) [#/Vol] 3.17 10*6/uL Low 4.2-5.4 [facility] Serum creatinine measurement (mass/volume)Ordered By: Zane Gallardo on 02-25-2025 Creatinine [Mass/Vol] 0.81 mg/dL 0.70-1.20 [facility] Serum globulin measurementOr dered By: Zane Gallardo on 02-25-2025 Globulin (S) [Mass/Vol] 2.8 g/dL 2.2-4.2 [facility] Serum glucose measurement (m ass/volume)Ordered By: Zane Gallardo on 02-25-2025 Glucose [Mass/Vol] 142 mg/dL High 70-99 [facility] Serum or plasma alanine hargrove otransferase (ALT) measurementOrdered By: Zane Gallardo on 02-25-2025 ALT [Catalytic activity/Vol] 18 U/L <35 [facility] Serum or plasma albumin jn urement (mass/volume)Ordered By: Zane Gallardo on 02-25-2025 Albumin [Mass/Vol] 4.4 g/dL 3.4-4.8 [facility] Serum or plasma albumin/glob ulin mass ratioOrdered By: Zane Gallardo on 02-25-2025 Albumin/Globulin [Mass ratio] 1.6 {ratio} 0.9-2.4 [facility] Serum or plasma alkaline regis sphatase measurementOrdered By: Zane Gallardo on 02-25-2025 ALP [Catalytic activity/Vol] 78 U/L 35-104 [facility] Serum or plasma calcium jn urement (mass/volume)Ordered By: Zane Gallardo on 02-25-2025 Calcium [Mass/Vol] 9.8 mg/dL 7.6-11.0 [facility] Serum or plasma urea nitroge n measurement (mass/volume)Ordered By: Zane Gallardo on 02-25-2025 Urea nitrogen [Mass/Vol] 15 mg/dL 4-19 [facility] Sodium levelOrdered By: Zane Gallardo on 02-25-2025 Sodium [Moles/Vol] 139 mmol/L 133-145 [facility] Squamous epithelial cells de tection in urine sediment by light microscopyOrdered By: Zane Gallardo on 02-25-2025 Epithelial cells.squamous LM Ql (Urine sed) 0-5 SEEN /hpf 5-10 [facility] Total proteinOrdered By: Jose Cruz Gallardo on 02-25-2025 Protein [Mass/Vol] 7.1 g/dL 5.9-8.4 [facility] Urinalysis, Completeon 02-25 EPI,SQUAMOUS 0-5 SEEN Normal 5-10 [facility] Comment on above: Order Comment: CLEAN CATCH Performed By: #### L 400.0001 ####[facility] [address] [facility] [id number] RBC 0-5 SEEN Normal 0-5 [facility] Comment on above: Order Comment: CLEAN CATCH Performed By: #### L 400.0001 ####[facility] [address] [facility] [phone] WBC 10-25 SEEN Normal 0-5 [facility] Comment on above: Order Comment: CLEAN CATCH Performed By: #### L 400.0001 ####[facility] [address] [facility] [phone] BACTERIA 1+ /hpf Normal None Seen [facility] Comment on above: Order Comment: CLEAN CATCH Performed By: #### L 400.0001 ####[facility] [address] [place], [address] Mucus Ql (Urine sed) 0 SEEN Normal [facility] Comment on above: Order Comment: CLEAN CATCH Performed By: #### L 400.0001 ####[facility] [address] [place], [place], [phone] Urine clarityOrdered By: Jose Cruz Gallardo on 02-25-2025 Clarity (U) Sl Cldy Clear [facility] Urine color determinationOrd ered By: Zane Gallardo on 02-25-2025 Color (U) Yellow Yellow [facility] Urine glucose detectionOrder ed By: Zane Gallardo on 02-25-2025 Glucose Ql (U) Normal mg/dl Normal [facility] Urine leukocyte esterase det ection by dipstickOrdered By: Zane Gallardo on 02-25-2025 Leukocyte esterase Test strip Ql (U) 100 /ul High Negative [facility] Urine pHOrdered By: Zane Gallardo on 02-25-2025 pH (U) 8.0 [pH] 5.0 - 8.0 [facility] Urine sediment bacteria coun t by microscopy (number/high power field)Ordered By: Zane Gallardo on 02-25-2025 Bacteria LM.HPF (Urine sed) [#/Area] 1 /[HPF] None Seen [facility] Urine specific gravity measu rementOrdered By: Zane Gallardo on 02-25-2025 Specific gravity (U) [Rel density] 1.010 1.002-1.030 [facility] Urine urobilinogen measureme ntOrdered By: Zane Gallardo on 02-25-2025 Urobilinogen Ql (U) Normal mg/dl Normal [facility] White blood cell (WBC) count Ordered By: ED PROVIDER on 02-25-2025 WBC (Bld) [#/Vol] 6.9 10*3/uL 4.4-11.0 [facility] White blood cell countOrdere d By: Zane Gallardo on 02-25-2025 White blood cell count 10-25 SEEN /hpf 0-5 [facility] Tosha 02-23-2025 DAYANA Telephone (UROVIVIANA) LINA MEADOWS ([id number]) 1960 F Date Time Provider Department 02/23/25 MEREDITH FELIPE During your visit today, we recorded the following information about you: Angella Seo 02/23/2025 1:55 PM Signed Patient called to cancel her 02/24 appointment because she was recently evicted and had to cancel her Provide A Ride due to not having a pick-up address. Patient was already scheduled for 03/24 and she is hoping she can get everything straightened out by then. Thank you, Jayla Kelly, RN 02/24/2025 1:49 PM Signed Spoke with patient and she states that she had labs when she was overnight in [place] 12-08-2024 through the 12-10-2024. She has the CD with the imaging on it and will get ride to drop off. Spoke with [facility] and she will fax labs, and the CXR was from . Received the records. Dr. Small reviewed the labs and CXR received and he has ordered what he needs done. Please assist with scheduling CXR and labs in [place] for patient. She has transportation issues right now. [facility] 02/25/2025 8:34 AM Signed Attempted to speak with patient to schedule, I left a voicemail for her to return our call to schedule. Unable to send a Twitter message. [facility] 02/25/2025 2:30 PM Signed I spoke with the patient to assist [...] able to work out her ride situation. Jayla Joseph RN 02/25/2025 2:58 PM Signed Spoke with patient about the importance of getting it done and Dr. Felipe reviewing the labs and last CXR and needing these 2 moving forward. I made her aware that she can even do both as a Walk in Basis in [place] when she figures out living situation. She verbalizes understanding of importance. Allergies As of Date: 02/23/2025 Noted Allergy Reaction LATEX 07/09/2012 2 - Rash Date Reviewed: 07/09/2012 Reviewed by: Corwin Mojica - Fully Assessed Reason for Visit: Appointment [186] Patient Update [1234] Meds Comments as of 07/09/2012: No daily medications Problem List As Of Date: 02/23/2025 (None) Encounter Status:Closed by JAYLA JOSEPH [facility]/[address] [facility] DAYANA Telephone (UROVIVIANA) LINA MEADOWS ([id number]) 1960 F Date Time Provider Department 02/09/25 MEREDITH FELIPE During your visit today, we recorded the following information about you: Aurelia Forrestertah 02/09/2025 12:30 PM Signed Patient called in regarding her appointment with Dr. Felipe on 02/10. She stated she uses her insurance company to arrange ride services. Patient stated she gave her insurance company the address for [facility], not the [facility] and when she called to [...] CHRIS FORRESTER on 02/09/25 Normal [facility] Microalb:Creat Ratio,Random URon 01-19-2025 Creatinine [Mass/Vol] 151.00 mg/dL Normal 28.00- 217.0 0 [facility] Comment on above: Performed By: #### L 502.0250 ####[facility] [address] [place], [place], [id number] MALB:CREAT 12.6 mg/g CRE Normal <30 mg/g CRE [facility] Comment on above: Performed By: #### L 502.0250 ####[facility] [address] [place], [place], [phone] MICROALBUMIN,UR 19.0 mg/L Normal <20 mg/L [facility] Comment on above: Performed By: #### L 502.0250 ####[facility] [address] [place], [place], [id number] Random urine creatinine jn urement (mass/volume)Ordered By: Angella Boggs on 01-19-2025 Creatinine Unsp time (U) [Mass/Vol] 151.00 mg/dL 28.00-217.0 0 [facility] Urine albumin measurement wi detection limit of 20 mg/L or less (mass/volume)Ordered By: Angella Boggs on 01-19-2025 Albumin DL <= 20 mg/L (U) [Mass/Vol] 19.0 mg/L <20 mg/L [facility] .GFRon 01-18-2025 Estimated Glomerular Filtration Rate 99 ml/min/1.73sqm Normal [facility] Comment on above: Result Comment: Stages of [...] #### C MP, LIPID, A1C, GFR #### [address] [place], [place] [address] A1Con 01-18-2025 Glucose [Mass/Vol] 263 mg/dL Normal [facility] Comment on above: Result Comment: Rosi mated Average Glucose calculated by equation ((28.7xA1C)-46.7) Estimated average glucose (eAG) is a calculated value from Hemoglobin A1C and is guest service representative of the average blood glucose level in the last 2-3 month period. Normal range: less than 114 mg/dL Performed By: #### C MP, LIPID, A1C, GFR #### [address] [address] HbA1c (Bld) [Mass fraction] 10.8 % High 4.3-6.[address] [facility] Comment on above: Performed By: #### C MP, LIPID, A1C, GFR #### [address] [place], [place] [address] CMPon 01-18-2025 Albumin Level 4.0 G/dL Normal 3.4-4.[address] [facility] Comment on above: Performed By: #### C MP, LIPID, A1C, GFR #### [address] [address] Albumin/Globulin [Mass ratio] 1.1 {ratio} Normal 1.1-2.[address] [facility] Comment on above: Performed By: #### C MP, LIPID, A1C, GFR #### [address] [address] ALP [Catalytic activity/Vol] 90 U/L Normal 40-[address] [facility] Comment on above: Performed By: #### C MP, LIPID, A1C, GFR #### [address] [address] ALT [Catalytic activity/Vol] 23 U/L Normal 14-[address] [facility] Comment on above: Performed By: #### C MP, LIPID, A1C, GFR #### [address] [address] AST [Catalytic activity/Vol] 16 U/L Normal 10-[address] [facility] Comment on above: Performed By: #### C MP, LIPID, A1C, GFR #### [address] [address] Bili Total 0.4 mg/dL Normal 0.2-1.[address] [facility] Comment on above: Result Comment: Use of this assay is not recommended for patients undergoing treatment with eltrombopag due to the potential for falsely elevated results. Performed By: #### C MP, LIPID, A1C, GFR #### [address] [address] BUN/Creatinine Ratio 18 ratio Normal 7-27 [facility] Comment on above: Performed By: #### C MP, LIPID, A1C, GFR #### [address] [address] Calcium [Mass/Vol] 9.7 mg/dL Normal 8.4-10.2 [facility] Comment on above: Performed By: #### C MP, LIPID, A1C, GFR #### [address] [address] Chloride [Moles/Vol] 102 mmol/L Normal 98-107 [facility] Comment on above: Performed By: #### C MP, LIPID, A1C, GFR #### [address] [address] CO2 [Moles/Vol] 28 mmol/L Normal 23-[address] [facility] Comment on above: Performed By: #### C MP, LIPID, A1C, GFR #### [address] [address] Creatinine [Mass/Vol] 0.66 mg/dL Normal 0.51-0.95 [facility] Comment on above: Performed By: #### C MP, LIPID, A1C, GFR #### [address] [address] Electrolyte Balance 10.0 mEq/L Normal 4.0-15.0 [facility] Comment on above: Performed By: #### C MP, LIPID, A1C, GFR #### [address] [address] Globulin 3.8 G/dL Normal 2.7-4.[address] [facility] Comment on above: Performed By: #### C MP, LIPID, A1C, GFR #### [address] [address] Glucose [Mass/Vol] 84 mg/dL Normal 80-115 [facility] Comment on above: Performed By: #### C MP, LIPID, A1C, GFR #### [address] [address] Potassium [Moles/Vol] 3.4 mmol/L Low 3.5-5.1 [facility] Comment on above: Performed By: #### C MP, LIPID, A1C, GFR #### [address] [address] Sodium [Moles/Vol] 140 mmol/L Normal 136-145 [facility] Comment on above: Performed By: #### C MP, LIPID, A1C, GFR #### [address] [address] Total Protein 7.8 G/dL Normal 6.4-8.[address] [facility] Comment on above: Performed By: #### C MP, LIPID, A1C, GFR #### [address] [place], [place] [address] Urea nitrogen [Mass/Vol] 12 mg/dL Normal 7-[address] [facility] Comment on above: Performed By: #### C MP, LIPID, A1C, GFR #### [address] [place], [place] [address] LABORATORYOrdered By: Evelin Hernandes on 01-18-2025 Albumin [...] calculated value from Hemoglobin A1C and is guest service representative of the average blood glucose level [...] 01-18-2025 Cholesterol [Mass/Vol] 197 mg/dL Normal 0-200 [facility] Comment on above: Result Comment: Chol esterol Reference Interval: Less than 200 Desirable 200-239 Borderline high risk 240 and above High risk Performed By: #### C MP, LIPID, A1C, GFR #### [address] [address] Cholesterol in HDL [Mass/Vol] 69 mg/dL High 40-[address] [facility] Comment on above: Performed By: #### C MP, LIPID, A1C, GFR #### [address] [address] Cholesterol in LDL [Mass/Vol] 114 mg/dL Normal 0-[address] [facility] Comment on above: Performed By: #### C MP, LIPID, A1C, GFR #### [address] [address] Triglyceride [Mass/Vol] 72 mg/dL Normal 0-150 [facility] Comment on above: Result Comment: Trig lyceride Reference Interval: Less than 150 Normal 150-199 Borderline high risk 200-499 High risk 500 or higher Very high risk Performed By: #### C MP, LIPID, A1C, GFR #### [address] [address] MALBRon 01-18-2025 U Creatinine 48.4 mg/dL Normal [facility] Comment on above: Performed By: #### M ALBR #### [address] [address] U Microalb 24.4 mg/L Normal [facility] Comment on above: Performed By: #### M ALBR #### [address] [address] U Ratio Alb/Cre 50 mg/G High 0-[address] [facility] Comment on above: Performed By: #### M ALBR #### [facility] [address] [place], [place] [address] Microalb:Creat Ratio,Random URon 12-23-2024 MALB:CREAT 20.3 mg/g CRE Normal [facility] Comment on above: Result Comment: AMENDED REPORT 12/23/24 1237 MALB:CREAT previously reported as: 203.0 mg/g CRE Performed By: #### L 502.0250, L500.4100, L500.4050 ####[facility] [address] [place], [address] Basic Metabolic Profile (BMP )on 12-12-2024 BUN Normal 4-19 [facility] Comment on above: Result Comment: Canc elled via OM: Order cancelled - Patient discharged Performed By: #### L 100.0500, L500.2500 ####[facility] [address] [place], [address] BUN/CRE Normal 10-20 [facility] Comment on above: Result Comment: Canc elled via OM: Order cancelled - Patient discharged Performed By: #### L 100.0500, L500.2500 ####[facility] [address] [place], [address] Calcium Normal 7.6-11.0 [facility] Comment on above: Result Comment: Canc elled via OM: Order cancelled - Patient discharged Performed By: #### L 100.0500, L500.2500 ####[facility] [address] [place], [address] CL Normal 98-108 [facility] Comment on above: Result Comment: Canc elled via OM: Order cancelled - Patient discharged Performed By: #### L 100.0500, L500.2500 ####[facility] [address] [place], [address] CO2 Normal 21.0-32.0 [facility] Comment on above: Result Comment: Canc elled via OM: Order cancelled - Patient discharged Performed By: #### L 100.0500, L500.2500 ####[facility] [address] [place], [address] CREAT,SERUM Normal 0.70-1.20 [facility] Comment on above: Result Comment: Canc elled via OM: Order cancelled - Patient discharged Performed By: #### L 100.0500, L500.2500 ####[facility] [address] [place], [address] eGFR Normal >60 [facility] Comment on above: Result Comment: Canc elled via OM: Order cancelled - Patient discharged Performed By: #### L 100.0500, L500.2500 ####[facility] [address] [place], [address] GAP Normal 5-15 [facility] Comment on above: Result Comment: Canc elled via OM: Order cancelled - Patient discharged Performed By: #### L 100.0500, L500.2500 ####[facility] [address] [place], [address] GLU Normal 70-99 [facility] Comment on above: Result Comment: Canc elled via OM: Order cancelled - Patient discharged Performed By: #### L 100.0500, L500.2500 ####[facility] [address] [place], [address] Potassium Normal 3.3-5.1 [facility] Comment on above: Result Comment: Canc elled via OM: Order cancelled - Patient discharged Performed By: #### L 100.0500, L500.2500 ####[facility] [address] [place], [address] Basic Metabolic Profile (BMP) Normal 133-145 [facility] Comment on above: Result Comment: Canc elled via OM: Order cancelled - Patient discharged Performed By: #### L 100.0500, L500.2500 ####[facility] [address] [place], [address] CBC-Complete Blood Cnt No Di ffon 12-12-2024 HCT Normal 37-47 [facility] Comment on above: Result Comment: Canc elled via OM: Order cancelled - Patient discharged Performed By: #### L 100.0500, L500.2500 ####[facility] [address] [place], [address] HGB Normal 12.0-15.0 [facility] Comment on above: Result Comment: Canc elled via OM: Order cancelled - Patient discharged Performed By: #### L 100.0500, L500.2500 ####[facility] [address] [place], [address] MCH Normal 27.0-32.0 [facility] Comment on above: Result Comment: Canc elled via OM: Order cancelled - Patient discharged Performed By: #### L 100.0500, L500.2500 ####[facility] [address] [place], [address] MCHC Normal 32-36 [facility] Comment on above: Result Comment: Canc elled via OM: Order cancelled - Patient discharged Performed By: #### L 100.0500, L500.2500 ####[facility] [address] [place], [address] MCV Normal 81-99 [facility] Comment on above: Result Comment: Canc elled via OM: Order cancelled - Patient discharged Performed By: #### L 100.0500, L500.2500 ####[facility] [address] [place], [address] PLT Normal 150-450 [facility] Comment on above: Result Comment: Canc elled via OM: Order cancelled - Patient discharged Performed By: #### L 100.0500, L500.2500 ####[facility] [address] [place], [address] RBC Normal 4.2-5.4 [facility] Comment on above: Result Comment: Canc elled via OM: Order cancelled - Patient discharged Performed By: #### L 100.0500, L500.2500 ####[facility] [address] [place], [address] RDW CV Normal 11.6-14.6 [facility] Comment on above: Result Comment: Canc elled via OM: Order cancelled - Patient discharged Performed By: #### L 100.0500, L500.2500 ####[facility] [address] [place], [address] RDW SD Normal 35.1-43.9 [facility] Comment on above: Result Comment: Canc elled via OM: Order cancelled - Patient discharged Performed By: #### L 100.0500, L500.2500 ####[facility] [address] [place], [address] WBC Normal 4.4-11.0 [facility] Comment on above: Result Comment: Canc elled via OM: Order cancelled - Patient discharged Performed By: #### L 100.0500, L500.2500 ####[facility] [address] [place], [address] Basic Metabolic Profile (BMP )on 12-11-2024 BUN Normal 4-19 [facility] Comment on above: Result Comment: Canc elled via OM: Order cancelled - Patient discharged Performed By: #### L 100.0500, L500.2500 ####[facility] [address] [place], [address] BUN/CRE Normal 10-20 [facility] Comment on above: Result Comment: Canc elled via OM: Order cancelled - Patient discharged Performed By: #### L 100.0500, L500.2500 ####[facility] [address] [place], [address] Calcium Normal 7.6-11.0 [facility] Comment on above: Result Comment: Canc elled via OM: Order cancelled - Patient discharged Performed By: #### L 100.0500, L500.2500 ####[facility] [address] [place], [address] CL Normal 98-108 [facility] Comment on above: Result Comment: Canc elled via OM: Order cancelled - Patient discharged Performed By: #### L 100.0500, L500.2500 ####[facility] [address] [place], [address] CO2 Normal 21.0-32.0 [facility] Comment on above: Result Comment: Canc elled via OM: Order cancelled - Patient discharged Performed By: #### L 100.0500, L500.2500 ####[facility] [address] [place], [address] CREAT,SERUM Normal 0.70-1.20 [facility] Comment on above: Result Comment: Canc elled via OM: Order cancelled - Patient discharged Performed By: #### L 100.0500, L500.2500 ####[facility] [address] [place], [address] eGFR Normal >60 [facility] Comment on above: Result Comment: Canc elled via OM: Order cancelled - Patient discharged Performed By: #### L 100.0500, L500.2500 ####[facility] [address] [place], [address] GAP Normal 5-15 [facility] Comment on above: Result Comment: Canc elled via OM: Order cancelled - Patient discharged Performed By: #### L 100.0500, L500.2500 ####[facility] [address] [place], [address] GLU Normal 70-99 [facility] Comment on above: Result Comment: Canc elled via OM: Order cancelled - Patient discharged Performed By: #### L 100.0500, L500.2500 ####[facility] [address] [place], [address] Potassium Normal 3.3-5.1 [facility] Comment on above: Result Comment: Canc elled via OM: Order cancelled - Patient discharged Performed By: #### L 100.0500, L500.2500 ####[facility] [address] [place], [address] Basic Metabolic Profile (BMP) Normal 133-145 [facility] Comment on above: Result Comment: Canc elled via OM: Order cancelled - Patient discharged Performed By: #### L 100.0500, L500.2500 ####[facility] [address] [place], [address] CBC-Complete Blood Cnt No Di ffon 12-11-2024 HCT Normal 37-47 [facility] Comment on above: Result Comment: Canc elled via OM: Order cancelled - Patient discharged Performed By: #### L 100.0500, L500.2500 ####[facility] [address] [place], [address] HGB Normal 12.0-15.0 [facility] Comment on above: Result Comment: Canc elled via OM: Order cancelled - Patient discharged Performed By: #### L 100.0500, L500.2500 ####[facility] [address] [place], [address] MCH Normal 27.0-32.0 [facility] Comment on above: Result Comment: Canc elled via OM: Order cancelled - Patient discharged Performed By: #### L 100.0500, L500.2500 ####[facility] [address] [place], [address] MCHC Normal 32-36 [facility] Comment on above: Result Comment: Canc elled via OM: Order cancelled - Patient discharged Performed By: #### L 100.0500, L500.2500 ####[facility] [address] [place], [address] MCV Normal 81-99 [facility] Comment on above: Result Comment: Canc elled via OM: Order cancelled - Patient discharged Performed By: #### L 100.0500, L500.2500 ####[facility] [address] [place], [address] PLT Normal 150-450 [facility] Comment on above: Result Comment: Canc elled via OM: Order cancelled - Patient discharged Performed By: #### L 100.0500, L500.2500 ####[facility] [address] [place], [address] RBC Normal 4.2-5.4 [facility] Comment on above: Result Comment: Canc elled via OM: Order cancelled - Patient discharged Performed By: #### L 100.0500, L500.2500 ####[facility] [address] [place], [address] RDW CV Normal 11.6-14.6 [facility] Comment on above: Result Comment: Canc elled via OM: Order cancelled - Patient discharged Performed By: #### L 100.0500, L500.2500 ####[facility] [address] [place], [address] RDW SD Normal 35.1-43.9 [facility] Comment on above: Result Comment: Canc elled via OM: Order cancelled - Patient discharged Performed By: #### L 100.0500, L500.2500 ####[facility] [address] [place], [address] WBC Normal 4.4-11.0 [facility] Comment on above: Result Comment: Canc elled via OM: Order cancelled - Patient discharged Performed By: #### L 100.0500, L500.2500 ####[facility] [address] [place], [address] Anion gap in Serum or Plasma Ordered By: Ciro Mendosa on 12-10-2024 Anion gap [Moles/Vol] 10 mmol/L 11-18 [facility] BUN/creatinine ratioOrdered By: Ciro Mendosa on 12-10-2024 Urea nitrogen/Creatinine [Mass ratio] 14.1 mg/mg 04-25 [facility] Basic Metabolic Profile (BMP )on 12-10-2024 BUN/CRE 14.1 RATIO Normal 04-25 [facility] Comment on above: Performed By: #### L 501.5200, L100.0500, L500.2500, L501.2300 ####[facility] [address] [place], [address] Calcium [Mass/Vol] 9.5 mg/dL Normal 7.6-11.0 [facility] Comment on above: Performed By: #### L 501.5200, L100.0500, L500.2500, L501.2300 ####[facility] [address] [place], [address] Chloride [Moles/Vol] 106 mmol/L Normal 98-108 [facility] Comment on above: Performed By: #### L 501.5200, L100.0500, L500.2500, L501.2300 ####[facility] [address] [place], [address] CO2 [Moles/Vol] 21.1 mmol/L Normal 21.0-32.0 [facility] Comment on above: Performed By: #### L 501.5200, L100.0500, L500.2500, L501.2300 ####[facility] [address] [place], [address] Creatinine [Mass/Vol] 0.76 mg/dL Normal 0.70-1.20 [facility] Comment on above: Performed By: #### L 501.5200, L100.0500, L500.2500, L501.2300 ####[facility] [address] [place], [address] ECRCL 63.49 ml/min Normal 50-250 [facility] Comment on above: Performed By: #### L 501.5200, L100.0500, L500.2500, L501.2300 ####[facility] [address] [place], [address] GAP 10 Normal 5-15 [facility] Comment on above: Performed By: #### L 501.5200, L100.0500, L500.2500, L501.2300 ####[facility] [address] [place], [address] GFR/1.73 sq M.predicted among non-blacks MDRD (S/P/Bld) [Vol rate/Area] 89 mL/min/{1.73_m2} Normal >60 [facility] Comment on above: Result Comment: mL/m in/1.73m2 CKD-EPI Creatinine Equation (2020) Performed By: #### L 501.5200, L100.0500, L500.2500, L501.2300 ####[facility] [address] [place], [address] Glucose [Mass/Vol] 118 mg/dL High 70-99 [facility] Comment on above: Performed By: #### L 501.5200, L100.0500, L500.2500, L501.2300 ####[facility] [address] [place], [address] Potassium [Moles/Vol] 3.6 mmol/L Normal 3.3-5.1 [facility] Comment on above: Performed By: #### L 501.5200, L100.0500, L500.2500, L501.2300 ####[facility] [address] [place], [address] Sodium [Moles/Vol] 137 mmol/L Normal 133-145 [facility] Comment on above: Performed By: #### L 501.5200, L100.0500, L500.2500, L501.2300 ####[facility] [address] [place], [address] Urea nitrogen [Mass/Vol] 11 mg/dL Normal 4-19 [facility] Comment on above: Performed By: #### L 501.5200, L100.0500, L500.2500, L501.2300 ####[facility] [address] [place], [address] Bedside Glucoseon 12-10-2024 FINGERSTICK GLU 93 mg/dL Normal 74-106 [facility] Comment on above: Result Comment: MARIA D GEMENT OF PATIENT CARE PER NURSING PROTOCOL Performed By: #### L 501.080 ####[facility] [address] [place], [address] FINGERSTICK GLU 115 mg/dL High 74-106 [facility] Comment on above: Result Comment: MARIA D GEMENT OF PATIENT CARE PER NURSING PROTOCOL Performed By: #### L 501.080 ####[facility] [address] [place], [address] CBC-Complete Blood Cnt No Di ffon 12-10-2024 Erythrocyte distribution width (RBC) [Ratio] 12.7 % Normal 11.6-14.6 [facility] Comment on above: Performed By: #### L 501.5200, L100.0500, L500.2500, L501.2300 ####[facility] [address] [place], [address] Hematocrit (Bld) [Volume fraction] 29.9 % Low 37-47 [facility] Comment on above: Performed By: #### L 501.5200, L100.0500, L500.2500, L501.2300 ####[facility] [address] [place], [address] Hemoglobin (Bld) [Mass/Vol] 10.5 g/dL Low 12.0-15.0 [facility] Comment on above: Performed By: #### L 501.5200, L100.0500, L500.2500, L501.2300 ####[facility] [address] [place], [address] MCH (RBC) [Entitic mass] 30.1 pg Normal 27.0-32.0 [facility] Comment on above: Performed By: #### L 501.5200, L100.0500, L500.2500, L501.2300 ####[facility] [address] [place], [address] MCHC (RBC) [Mass/Vol] 35.1 g/dL Normal 32-36 [facility] Comment on above: Performed By: #### L 501.5200, L100.0500, L500.2500, L501.2300 ####[facility] [address] [place], [address] MCV (RBC) [Entitic vol] 85.7 fL Normal 81-99 [facility] Comment on above: Performed By: #### L 501.5200, L100.0500, L500.2500, L501.2300 ####[facility] [address] [place], [address] Platelet mean volume (Bld) [Entitic vol] 12.0 fL Normal 6.2-12.0 [facility] Comment on above: Performed By: #### L 501.5200, L100.0500, L500.2500, L501.2300 ####[facility] [address] [place], [address] Platelets (Bld) [#/Vol] 175 10*3/uL Normal 150-450 [facility] Comment on above: Performed By: #### L 501.5200, L100.0500, L500.2500, L501.2300 ####[facility] [address] [place], [address] RBC (Bld) [#/Vol] 3.49 10*6/uL Low 4.2-5.4 [facility] Comment on above: Performed By: #### L 501.5200, L100.0500, L500.2500, L501.2300 ####[facility] [address] [place], [address] RDW SD 39.3 fl Normal 35.1-43.9 [facility] Comment on above: Performed By: #### L 501.5200, L100.0500, L500.2500, L501.2300 ####[facility] [address] [place], [address] WBC (Bld) [#/Vol] 4.1 10*3/uL Low 4.4-11.0 [facility] Comment on above: Performed By: #### L 501.5200, L100.0500, L500.2500, L501.2300 ####[facility] [address] [place], [address] Carbon dioxide, total [Moles /volume] in Central venous bloodOrdered By: Ciro Mendosa on 12-10-2024 CO2 [Moles/Vol] 21.1 mmol/L 21.0-32.0 [facility] Chloride assayOrdered By: Micky Mendosa on 12-10-2024 Chloride [Moles/Vol] 106 mmol/L 98-108 [facility] Erythrocyte distribution wid th ratioOrdered By: Ciro Mendosa on 12-10-2024 Erythrocyte distribution width (RBC) [Ratio] 12.7 % 11.6-14.6 [facility] Erythrocyte distribution wid th standard deviationOrdered By: Ciro Mendosa on 12-10-2024 Erythrocyte distribution width (RBC) [Ratio] 39.3 fl 35.1-43.9 [facility] Glomerular filtration rate ( GFR) estimation/1.73 sq m using serum, plasma, or whole bOrdered By: Ciro Mendosa on 12-10-2024 GFR/1.73 sq M.predicted among non-blacks MDRD (S/P/Bld) [Vol rate/Area] 89 mL/min/{1.73_m2} >60 [facility] Comment on above: mL/min/1.73m2 CKD-EP I Creatinine Equation (2020) [facility] deOrdered By: Ciro Mendosa on 12-10-2024 Glucose [Mass/Vol] 93 mg/dL 74-106 [facility] Comment on above: MANAGEMENT OF PATIEN T CARE PER NURSING PROTOCOL Hematocrit Auto (Bld) [Volum e fraction]Ordered By: Ciro Mendosa on 12-10-2024 Hematocrit (Bld) [Volume fraction] 29.9 % Low 37-47 [facility] Hemoglobin measurementOrdere d By: Ciro Mendosa on 12-10-2024 Hemoglobin (Bld) [Mass/Vol] 10.5 g/dL Low 12.0-15.0 [facility] MCV (mean corpuscular volume ) determinationOrdered By: Ciro Mendosa on 12-10-2024 MCV (RBC) [Entitic vol] 85.7 fL 81-99 [facility] Magnesiumon 12-10-2024 Magnesium [Mass/Vol] 1.9 mg/dL Normal 1.5-2.2 [facility] Comment on above: Performed By: #### L 501.5200, L100.0500, L500.2500, L501.2300 ####[facility] [address] [place], [address] Magnesium measurement (mass/ volume)Ordered By: Ciro Mendosa on 12-10-2024 Magnesium (Unsp spec) [Mass/Vol] 1.9 mg/dL 1.5-2.2 [facility] Mean corpuscular hemoglobin (MCH) determinationOrdered By: Ciro Mendosa on 12-10-2024 MCH (RBC) [Entitic mass] 30.1 pg 27.0-32.0 [facility] Mean corpuscular hemoglobin concentration (MCHC) determinationOrdered By: Ciro Mendosa on 12-10-2024 MCHC (RBC) [Mass/Vol] 35.1 g/dL 32-36 [facility] Mean platelet volume determi nationOrdered By: Ciro Mendosa on 12-10-2024 Platelet mean volume (Bld) [Entitic vol] 12.0 fL 6.2-12.0 [facility] Phosphoruson 12-10-2024 Phosphate [Mass/Vol] 3.1 mg/dL Normal 2.7-4.5 [facility] Comment on above: Performed By: #### L 501.5200, L100.0500, L500.2500, L501.2300 ####[facility] [address] [place], [address] Platelet countOrdered By: Micky Mendosa on 12-10-2024 Platelets (Bld) [#/Vol] 175 10*3/uL 150-450 [facility] Potassium measurement (mass/ volume)Ordered By: Ciro Mendosa on 12-10-2024 Potassium (Unsp spec) [Mass/Vol] 3.6 mmol/L 3.3-5.1 [facility] RBC Auto (Bld) [#/Vol]Ordere d By: Ciro Mendosa on 12-10-2024 RBC (Bld) [#/Vol] 3.49 10*6/uL Low 4.2-5.4 [facility] Serum creatinine measurement (mass/volume)Ordered By: Ciro Mendosa on 12-10-2024 Creatinine [Mass/Vol] 0.76 mg/dL 0.70-1.20 [facility] Serum glucose measurement (m ass/volume)Ordered By: Ciro Mendosa on 12-10-2024 Glucose [Mass/Vol] 118 mg/dL High 70-99 [facility] Serum or plasma calcium jn urement (mass/volume)Ordered By: Ciro Mendosa on 12-10-2024 Calcium [Mass/Vol] 9.5 mg/dL 7.6-11.0 [facility] Serum or plasma urea nitroge n measurement (mass/volume)Ordered By: Ciro Mendosa on 12-10-2024 Urea nitrogen [Mass/Vol] 11 mg/dL 4-19 [facility] Sodium levelOrdered By: Helio Mendosa on 12-10-2024 Sodium [Moles/Vol] 137 mmol/L 133-145 [facility] White blood cell (WBC) count Ordered By: Ciro Mendosa on 12-10-2024 WBC (Bld) [#/Vol] 4.1 10*3/uL Low 4.4-11.0 [facility] Absolute lymphocyte countOrd ered By: Zelda Ibarra on 12-09-2024 Lymphocytes Auto (Unsp spec) [#/Vol] 2.57 10*3/uL 0.83-4.51 [facility] Absolute neutrophil countOrd ered By: Zelda Ibarra on 12-09-2024 Neutrophils (Bld) [#/Vol] 3.9 10*3/uL 2.0-7.7 [facility] Automated lymphocyte count a s percentage of total leukocytesOrdered By: Zelda Ibarra on 12-09-2024 Lymphocytes/100 WBC Auto (Unsp spec) 34.5 % 19-41 [facility] Basic Metabolic Profile (BMP )on 12-09-2024 BUN/CRE 18.1 RATIO Normal 10-20 [facility] Comment on above: Performed By: #### L 500.2500 ####[facility] [address] [facility] [address] Calcium [Mass/Vol] 9.1 mg/dL Normal 7.6-11.0 [facility] Comment on above: Performed By: #### L 500.2500 ####[facility] [address] [place], [address] Chloride [Moles/Vol] 104 mmol/L Normal 98-108 [facility] Comment on above: Performed By: #### L 500.2500 ####[facility] [address] [place], [address] CO2 [Moles/Vol] 17.2 mmol/L Low 21.0-32.0 [facility] Comment on above: Performed By: #### L 500.2500 ####[facility] [address] [place], [address] Creatinine [Mass/Vol] 0.94 mg/dL Normal 0.70-1.20 [facility] Comment on above: Performed By: #### L 500.2500 ####[facility] [address] [place], [address] ECRCL 51.33 ml/min Normal 50-250 [facility] Comment on above: Performed By: #### L 500.2500 ####[facility] [address] [place], [address] GAP 14 Normal 5-15 [facility] Comment on above: Performed By: #### L 500.2500 ####[facility] [address] [place], [address] GFR/1.73 sq M.predicted among non-blacks MDRD (S/P/Bld) [Vol rate/Area] 69 mL/min/{1.73_m2} Normal >60 [facility] Comment on above: Result Comment: mL/m in/1.73m2 CKD-EPI Creatinine Equation (2020) Performed By: #### L 500.2500 ####[facility] [address] [place], [address] Glucose [Mass/Vol] 123 mg/dL High 70-99 [facility] Comment on above: Performed By: #### L 500.2500 ####[facility] [address] [place], [address] Potassium [Moles/Vol] 3.8 mmol/L Normal 3.3-5.1 [facility] Comment on above: Performed By: #### L 500.2500 ####[facility] [address] [place], [address] Sodium [Moles/Vol] 135 mmol/L Normal 133-145 [facility] Comment on above: Performed By: #### L 500.2500 ####[facility] [address], [address] Urea nitrogen [Mass/Vol] 17 mg/dL Normal 4-19 [facility] Comment on above: Performed By: #### L 500.2500 ####[facility] [address] [place], [address] BUN/CRE 18.6 RATIO Normal 10-20 [facility] Comment on above: Order Comment: Call MD with results STAT Performed By: #### L 500.4050, L500.2500 ####[facility] [address] [place], [address] Calcium [Mass/Vol] 9.2 mg/dL Normal 7.6-11.0 [facility] Comment on above: Order Comment: Call MD with results STAT Performed By: #### L 500.4050, L500.2500 ####[facility] [address] [place], [address] Chloride [Moles/Vol] 103 mmol/L Normal 98-108 [facility] Comment on above: Order Comment: Call MD with results STAT Performed By: #### L 500.4050, L500.2500 ####[facility] [address] [place], [address] CO2 [Moles/Vol] 17.1 mmol/L Low 21.0-32.0 [facility] Comment on above: Order Comment: Call MD with results STAT Performed By: #### L 500.4050, L500.2500 ####[facility] [address] [place], [address] Creatinine [Mass/Vol] 1.01 mg/dL Normal 0.70-1.20 [facility] Comment on above: Order Comment: Call MD with results STAT Performed By: #### L 500.4050, L500.2500 ####[facility] [address] [place], [address] ECRCL 47.77 ml/min Low 50-250 [facility] Comment on above: Order Comment: Call MD with results STAT Performed By: #### L 500.4050, L500.2500 ####[facility] [address] [place], [address] GAP 14 Normal 5-15 [facility] Comment on above: Order Comment: Call MD with results STAT Performed By: #### L 500.4050, L500.2500 ####[facility] [address] [place], [address] GFR/1.73 sq M.predicted among non-blacks MDRD (S/P/Bld) [Vol rate/Area] 63 mL/min/{1.73_m2} Normal >60 [facility] Comment on above: Order Comment: Call MD with results STAT Result Comment: mL/m in/1.73m2 CKD-EPI Creatinine Equation (2020) Performed By: #### L 500.4050, L500.2500 ####[facility] [address] [place], [address] Glucose [Mass/Vol] 93 mg/dL Normal 70-99 [facility] Comment on above: Order Comment: Call MD with results STAT Performed By: #### L 500.4050, L500.2500 ####[facility] [address] [place], [address] Potassium [Moles/Vol] 4.6 mmol/L Normal 3.3-5.1 [facility] Comment on above: Order Comment: Call MD with results STAT Result Comment: Hemo lysis present, Results??could be affected.?? Performed By: #### L 500.4050, L500.2500 ####[facility] [address] [place], [address] Sodium [Moles/Vol] 134 mmol/L Normal 133-145 [facility] Comment on above: Order Comment: Call MD with results STAT Performed By: #### L 500.4050, L500.2500 ####[facility] [address] [place], [address] Urea nitrogen [Mass/Vol] 19 mg/dL Normal 4-19 [facility] Comment on above: Order Comment: Call MD with results STAT Performed By: #### L 500.4050, L500.2500 ####[facility] [address] [place], [address] BUN/CRE 20.6 RATIO High 10-20 [facility] Comment on above: Order Comment: Call MD with results STAT Performed By: #### L 509.7001, L500.2500 ####[facility] [address], [address] Calcium [Mass/Vol] 9.5 mg/dL Normal 7.6-11.0 [facility] Comment on above: Order Comment: Call MD with results STAT Performed By: #### L 509.7001, L500.2500 ####[facility] [address] [place], [address] Chloride [Moles/Vol] 101 mmol/L Normal 98-108 [facility] Comment on above: Order Comment: Call MD with results STAT Performed By: #### L 509.7001, L500.2500 ####[facility] [address] [place], [address] CO2 [Moles/Vol] 16.8 mmol/L Low 21.0-32.0 [facility] Comment on above: Order Comment: Call MD with results STAT Performed By: #### L 509.7001, L500.2500 ####[facility] [address] [place], [address] Creatinine [Mass/Vol] 1.04 mg/dL Normal 0.70-1.20 [facility] Comment on above: Order Comment: Call MD with results STAT Performed By: #### L 509.7001, L500.2500 ####[facility] [address] [place], [address] ECRCL 46.40 ml/min Low 50-250 [facility] Comment on above: Order Comment: Call MD with results STAT Performed By: #### L 509.7001, L500.2500 ####[facility] [address] [place], [address] GAP 17 High 5-15 [facility] Comment on above: Order Comment: Call MD with results STAT Performed By: #### L 509.7001, L500.2500 ####[facility] [address] [place], [address] GFR/1.73 sq M.predicted among non-blacks MDRD (S/P/Bld) [Vol rate/Area] 61 mL/min/{1.73_m2} Normal >60 [facility] Comment on above: Order Comment: Call MD with results STAT Result Comment: mL/m in/1.73m2 CKD-EPI Creatinine Equation (2020) Performed By: #### L 509.7001, L500.2500 ####[facility] [address] [place], [address] Glucose [Mass/Vol] 139 mg/dL High 70-99 [facility] Comment on above: Order Comment: Call MD with results STAT Performed By: #### L 509.7001, L500.2500 ####[facility] [address] [place], [address] Potassium [Moles/Vol] 3.8 mmol/L Normal 3.3-5.1 [facility] Comment on above: Order Comment: Call MD with results STAT Performed By: #### L 509.7001, L500.2500 ####[facility] [address] [place], [address] Sodium [Moles/Vol] 134 mmol/L Normal 133-145 [facility] Comment on above: Order Comment: Call MD with results STAT Performed By: #### L 509.7001, L500.2500 ####[facility] [address] [place], [address] Urea nitrogen [Mass/Vol] 21 mg/dL High 4-19 [facility] Comment on above: Order Comment: Call MD with results STAT Performed By: #### L 509.7001, L500.2500 ####[facility] [address] [place], [address] Basophil percentageOrdered B y: Zelda White on 12-09-2024 Basophils/100 WBC (Bld) 0.5 % Normal 0-1 [facility] Comment on above: Performed By: #### L 100.0100, L501.9985 ####[facility] [address] [place], [address] Bedside Glucoseon 12-09-2024 FINGERSTICK GLU 207 mg/dL High 74-106 [facility] Comment on above: Result Comment: MARIA D GEMENT OF PATIENT CARE PER NURSING PROTOCOL Performed By: #### L 501.080 ####[facility] [address] [place], [address] FINGERSTICK GLU 253 mg/dL High 74-106 [facility] Comment on above: Result Comment: MARIA D GEMENT OF PATIENT CARE PER NURSING PROTOCOL Performed By: #### L 501.080 ####[facility] [address] [place], [address] FINGERSTICK GLU 140 mg/dL High 74-106 [facility] Comment on above: Result Comment: MARIA D GEMENT OF PATIENT CARE PER NURSING PROTOCOL Performed By: #### L 501.080 ####[facility] [address] [place], [address] FINGERSTICK GLU 116 mg/dL High 74-106 [facility] Comment on above: Result Comment: MARIA D GEMENT OF PATIENT CARE PER NURSING PROTOCOL Performed By: #### L 501.080 ####[facility] [address] [place], [address] FINGERSTICK GLU 103 mg/dL Normal 74-106 [facility] Comment on above: Result Comment: MARIA D GEMENT OF PATIENT CARE PER NURSING PROTOCOL Performed By: #### L 501.080 ####[facility] [address] [place], [address] FINGERSTICK GLU 102 mg/dL Normal 74-106 [facility] Comment on above: Result Comment: MARIA D GEMENT OF PATIENT CARE PER NURSING PROTOCOL Performed By: #### L 501.080 ####[facility] [address] [place], [address] FINGERSTICK GLU 98 mg/dL Normal 74-106 [facility] Comment on above: Result Comment: MARIA D GEMENT OF PATIENT CARE PER NURSING PROTOCOL Performed By: #### L 501.080 ####[facility] [address] [place], [address] FINGERSTICK GLU 113 mg/dL High 74-106 [facility] Comment on above: Result Comment: MARIA D GEMENT OF PATIENT CARE PER NURSING PROTOCOL Performed By: #### L 501.080 ####[facility] [address] [place], [address] FINGERSTICK GLU 104 mg/dL Normal 74-106 [facility] Comment on above: Result Comment: MARIA D GEMENT OF PATIENT CARE PER NURSING PROTOCOL Performed By: #### L 501.080 ####[facility] [address] [place], [address] FINGERSTICK GLU 125 mg/dL High 74-106 [facility] Comment on above: Result Comment: MARIA D GEMENT OF PATIENT CARE PER NURSING PROTOCOL Performed By: #### L 501.080 ####[facility] [address] [place], [address] FINGERSTICK GLU 88 mg/dL Normal 74-106 [facility] Comment on above: Result Comment: MARIA D GEMENT OF PATIENT CARE PER NURSING PROTOCOL Performed By: #### L 501.080 ####[facility] [address] [place], [address] FINGERSTICK GLU 156 mg/dL High 74-106 [facility] Comment on above: Result Comment: MARIA D GEMENT OF PATIENT CARE PER NURSING PROTOCOL Performed By: #### L 501.080 ####[facility] [address] [place], [address] Bilirubin, totalOrdered By: Zelda Ibarra on 12-09-2024 Bilirubin [Mass/Vol] 0.22 mg/dL Normal 0.00-1.30 [facility] Comment on above: Order Comment: Call MD with results STAT Performed By: #### L 500.4050, L500.2500 ####[facility] [address] [place], [address] CBC W/Diff, Automatedon Absolute Lymph 2.57 X10 3/uL Normal 0.83-4.51 [facility] Comment on above: Performed By: #### L 100.0100, L501.9985 ####[facility] [address] [place], [address] Absolute Neut 3.9 X10 3/uL Normal 2.0-7.7 [facility] Comment on above: Performed By: #### L 100.0100, L501.9985 ####[facility] [address] [place], [address] Erythrocyte distribution width (RBC) [Ratio] 12.5 % Normal 11.6-14.6 [facility] Comment on above: Performed By: #### L 100.0100, L501.9985 ####[facility] [address] [place], [address] Hematocrit (Bld) [Volume fraction] 28.5 % Low 37-47 [facility] Comment on above: Performed By: #### L 100.0100, L5.85 ####[facility] [address] [place], [address] Hemoglobin (Bld) [Mass/Vol] 9.9 g/dL Low 12.0-15.0 [facility] Comment on above: Performed By: #### L 100.0100, L5.85 ####[facility] [address] [place], [address] IG% 0.300 Normal 0.0-0.9 [facility] Comment on above: Result Comment: IG% - Immature Granulocytes (promyelocytes, myelocytes andmetamyelocytes) > 1% indicates that a LEFT SHIFT is Present. Performed By: #### L 100.0100, L5.9985 ####[facility] [address] [place], [address] Lymphocytes/100 WBC (Bld) 34.5 % Normal 19-41 [facility] Comment on above: Performed By: #### L 100.0100, L5.85 ####[facility] [address] [place], [address] MCH (RBC) [Entitic mass] 29.7 pg Normal 27.0-32.0 [facility] Comment on above: Performed By: #### L 100.0100, L5.9985 ####[facility] [address] [place], [address] MCHC (RBC) [Mass/Vol] 34.7 g/dL Normal 32-36 [facility] Comment on above: Performed By: #### L 100.0100, L501.9985 ####[facility] [address] [place], [address] MCV (RBC) [Entitic vol] 85.6 fL Normal 81-99 [facility] Comment on above: Performed By: #### L 100.0100, L501.9985 ####[facility] [address] [place], [address] Nucleated RBC (Bld) [#/Vol] 0 10*3/uL Normal 0-5 [facility] Comment on above: Performed By: #### L 100.0100, L501.9985 ####[facility] [address] [place], [address] Platelet mean volume (Bld) [Entitic vol] 12.0 fL Normal 6.2-12.0 [facility] Comment on above: Performed By: #### L 100.0100, L501.9985 ####[facility] [address] [place], [address] Platelets (Bld) [#/Vol] 198 10*3/uL Normal 150-450 [facility] Comment on above: Performed By: #### L 100.0100, L501.9985 ####[facility] [address] [place], [address] RBC (Bld) [#/Vol] 3.33 10*6/uL Low 4.2-5.4 [facility] Comment on above: Performed By: #### L 100.0100, L501.9985 ####[facility] [address] [place], [address] RDW SD 38.5 fl Normal 35.1-43.9 [facility] Comment on above: Performed By: #### L 100.0100, L501.9985 ####[facility] [address] [place], [address] WBC (Bld) [#/Vol] 7.5 10*3/uL Normal 4.4-11.0 [facility] Comment on above: Performed By: #### L 100.0100, L501.9985 ####[facility] [address] [place], [address] Comprehensive Metabolic Prof ilon 12-09-2024 ALK PHOS 87 U/L Normal 35-104 [facility] Comment on above: Order Comment: Call MD with results STAT Performed By: #### L 500.4050, L500.2500 ####[facility] [address] [place], [address] T PROT 6.6 g/dL Normal 5.9-8.4 [facility] Comment on above: Order Comment: Call MD with results STAT Performed By: #### L 500.4050, L500.2500 ####[facility] [address] [place], [address] Comprehensive Metabolic Prof ilOrdered By: Zelda Ibarra on 12-09-2024 AST [Catalytic activity/Vol] 23 U/L Normal <=31 [facility] Comment on above: Hemolysis present, R esults could be affected. Order Comment: Call MD with results STAT Result Comment: Hemo lysis present, Results??could be affected.?? Performed By: #### L 500.4050, L500.2500 ####[facility] [address] [place], [address] Eosinophil percentageOrdered By: Zelda Ibarra on 12-09-2024 Eosinophils/100 WBC (Bld) 2.7 % Normal 0-5 [facility] Comment on above: Performed By: #### L 100.0100, L501.9985 ####[facility] [address] [place], [address] H AND P Exam - Hospitaliston 12-09-2024 H&P Exam - Hospitalist Normal [facility] Hemoglobin A1c percentageOrd ered By: Zelda Ibarra on 12-09-2024 HbA1c (Bld) [Mass fraction] 12.8 % High <=5.6 [facility] Comment on above: Normal < 5.7 % Predi abetic 5.7 - 6.4 % Diabetic >or= 6.5 % Please note range changes. Result Comment: Norm al < 5.7 % Prediabetic 5.7 - 6.4 % Diabetic >or= 6.5 % Please note range changes. Performed By: #### L 100.0100, L501.9985 ####[facility] [address] [place], [address] Immature granulocytes/100 WB C Auto (Bld)Ordered By: Zelda Ibarra on 12-09-2024 Immature granulocytes/100 WBC (Bld) 0.300 % 0.0-0.9 [facility] Comment on above: IG% - Immature Granu locytes (promyelocytes, myelocytes and metamyelocytes) > 1% indicates that a LEFT SHIFT is Present. L509.7001on 12-09-2024 Procalcitonin 0.08 ng/mL Normal <=0.10 [facility] Comment on above: Result Comment: Inte rpretation:<0.10-0.25 ng/mL: Antibiotic therapy discouraged. Bacterialinfection unlikely.0.25-0.50 ng/mL: Antibiotic therapy encouraged. Bacterialinfection possible.>0.50 ng/mL: Antibiotic therapy strongly encouraged.Suggestive of presence of bacterial infection.PCT should always be interpreted in the clinical context ofthe patient. Therefore, clinicians should use the PCTresults in conjunction with other laboratory findings andclinical signs of the patient. Performed By: #### L 509.7001, L500.2500 ####[facility] [address] [place], [place], [address] Magnesiumon 12-09-2024 Magnesium [Mass/Vol] 2.2 mg/dL Normal 1.5-2.2 [facility] Comment on above: Order Comment: Comme nts: May add to ED labsComments: may add to ED labs Performed By: #### L 501.2300, L501.5200 ####[facility] [address] [place], [address] Monocyte percentageOrdered B y: Zelda Ibarra on 12-09-2024 Monocytes/100 WBC (Bld) 9.7 % Normal 0-10 [facility] Comment on above: Performed By: #### L 100.0100, L501.9985 ####[facility] [address] [place], [address] Neutrophil percentageOrdered By: Zelda Ibarra on 12-09-2024 Neutrophils/100 WBC (Bld) 52.3 % Normal 47-70 [facility] Comment on above: Performed By: #### L 100.0100, L501.9985 ####[facility] [address] [place], [address] Nucleated red blood cell per centageOrdered By: Zelda Ibarra on 12-09-2024 Nucleated RBC/100 WBC (Bld) [Ratio] 0 % 0-5 [facility] Phosphoruson 12-09-2024 Phosphate [Mass/Vol] 4.7 mg/dL High 2.7-4.5 [facility] Comment on above: Order Comment: Comme nts: May add to ED labsComments: may add to ED labs Performed By: #### L 501.2300, L501.5200 ####[facility] [address] [place], [address] Procalcitonin [Mass/volume] in Serum or Plasma by ImmunoassayOrdered By: Zelda Ibarra on 12-09-2024 Procalcitonin IA [Mass/Vol] 0.08 ng/mL <0.11 [facility] Comment on above: Interpretation:<0.10 -0.25 ng/mL: Antibiotic [...] patient. Serum globulin measurementOr dered By: Zelda Ibarra on 12-09-2024 Globulin (S) [Mass/Vol] 2.8 g/dL Normal 2.2-4.2 [facility] Comment on above: Order Comment: Call MD with results STAT Performed By: #### L 500.4050, L500.2500 ####[facility] [address] [place], [address] Serum or plasma alanine hargrove otransferase (ALT) measurementOrdered By: Zelda Ibarra on 12-09-2024 ALT [Catalytic activity/Vol] 12 U/L Normal <=34 [facility] Comment on above: Hemolysis present, R esults could be affected. Order Comment: Call MD with results STAT Result Comment: Hemo lysis present, Results??could be affected.?? Performed By: #### L 500.4050, L500.2500 ####[facility] [address] [place], [address] Serum or plasma albumin jn urement (mass/volume)Ordered By: Zelda Ibarra on 12-09-2024 Albumin [Mass/Vol] 3.8 g/dL Normal 3.4-4.8 [facility] Comment on above: Order Comment: Call with results STAT Performed By: #### L 500.4050, L500.2500 ####[facility] [address] [place], [address] Serum or plasma albumin/glob ulin mass ratioOrdered By: Zelda Ibarra on 12-09-2024 Albumin/Globulin [Mass ratio] 1.4 {ratio} Normal 0.9-2.4 [facility] Comment on above: Order Comment: Call with results STAT Performed By: #### L 500.4050, L500.2500 ####[facility] [address] [place], [address] Serum or plasma alkaline regis sphatase measurementOrdered By: Zelda Ibarra on 12-09-2024 ALP [Catalytic activity/Vol] 87 U/L 35-104 [facility] Total proteinOrdered By: Aut umn White on 12-09-2024 Protein [Mass/Vol] 6.6 g/dL 5.9-8.4 [facility] Abdomen/Pelvis W IV Cont ONL Yon 12-08-2024 Abdomen/Pelvis W IV Cont ONLY Normal [facility] Absolute lymphocyte countOrd ered By: Miki Sen on 12-08-2024 Lymphocytes Auto (Unsp spec) [#/Vol] 1.80 10*3/uL 0.83-4.51 [facility] Absolute neutrophil countOrd ered By: Miki Sen on 12-08-2024 Neutrophils (Bld) [#/Vol] 5.4 10*3/uL 2.0-7.7 [facility] Anion gap in Serum or Plasma Ordered By: Miki Sen on 12-08-2024 Anion gap [Moles/Vol] 26 mmol/L High 5-15 [facility] Automated blood erythrocyte countOrdered By: Miki Sen on 12-08-2024 RBC (Bld) [#/Vol] 3.72 10*6/uL Low 4.2-5.4 [facility] Comment on above: Performed By: #### L 501.2450, L500.4050, L501.6901, L100.0100 ####[facility] [address] [place], [place], [address] Automated blood hematocrit ( percentage)Ordered By: Miki Sen on 12-08-2024 Hematocrit (Bld) [Volume fraction] 32.5 % Low 37-47 [facility] Comment on above: Performed By: #### L 501.2450, L500.4050, L501.6901, L100.0100 ####[facility] [address] [place], [place], [address] Automated lymphocyte count a s percentage of total leukocytesOrdered By: Miki Sen on 12-08-2024 Lymphocytes/100 WBC Auto (Unsp spec) 22.8 % 19-41 [facility] BUN/creatinine ratioOrdered By: Miki Sen on 12-08-2024 Urea nitrogen/Creatinine [Mass ratio] 19.5 mg/mg 10-20 [facility] Basophil percentageOrdered B y: Miki Sen on 12-08-2024 Basophils/100 WBC (Bld) 0.6 % Normal 0-1 [facility] Comment on above: Performed By: #### L 501.2450, L500.4050, L501.6901, L100.0100 ####[facility] [address] [place], [address] Bedside Glucoseon 12-08-2024 FINGERSTICK GLU 231 mg/dL High [address] [place] [address] Comment on above: Result Comment: MARIA D GEMENT OF PATIENT CARE PER NURSING PROTOCOL Performed By: #### L 501.080 ####[facility] [address] [place], [address] FINGERSTICK GLU 380 mg/dL High [address] [place] [address] Comment on above: Result Comment: MARIA D GEMENT OF PATIENT CARE PER NURSING PROTOCOL Performed By: #### L 501.080 ####[facility] [address] [place], [address] FINGERSTICK GLU 491 mg/dL Invalid Interpretation Code [address] [place] [address] Comment on above: Result Comment: Dr Lois HuitronAGEMENT OF PATIENT CARE PER NURSING PROTOCOL Performed By: #### L 501.080 ####[facility] [address] [place], [address] FINGERSTICK GLU > 500 Invalid Interpretation Code [address] [place] [address] Comment on above: Result Comment: MARIA D GEMENT OF PATIENT CARE PER NURSING PROTOCOL Performed By: #### L 501.080 ####[facility] [address] [place], [address] Beta-Hydroxbytyrateon 2024 BETA-HYDROXYBUT 7.9 mmol/L High 0.0-0.3 [facility] Comment on above: Performed By: #### L 501.2450, L500.4050, L501.6901, L100.0100 ####[facility] [address] [place], [address] Beta-hydroxybutyrateOrdered By: Miki Sen on 12-08-2024 Beta hydroxybutyrate [Mass/Vol] 7.9 mmol/L High 0.0-0.3 [facility] Bilirubin Test strip Ql (U)O rdered By: Miki Sen on 12-08-2024 Bilirubin Ql (U) Negative Negative [facility] Bilirubin, totalOrdered By: Miki Sen on 12-08-2024 Bilirubin [Mass/Vol] 0.25 mg/dL Normal 0.00-1.30 [facility] Comment on above: Performed By: #### L 501.2450, L500.4050, L501.6901, L100.0100 ####[facility] [address] [place], [address] CBC W/Diff, Automatedon 06 Absolute Lymph 1.80 X10 3/uL Normal 0.83-4.51 [facility] Comment on above: Performed By: #### L 501.2450, L500.4050, L501.6901, L100.0100 ####[facility] [address] [place], [address] Absolute Neut 5.4 X10 3/uL Normal 2.0-7.7 [facility] Comment on above: Performed By: #### L 501.2450, L500.4050, L501.6901, L100.0100 ####[facility] [address] [place], [address] IG% 0.300 Normal 0.0-0.9 [facility] Comment on above: Result Comment: IG% - Immature Granulocytes (promyelocytes, myelocytes andmetamyelocytes) > 1% indicates that a LEFT SHIFT is Present. Performed By: #### L 501.2450, L500.4050, L501.6901, L100.0100 ####[facility] [address] [place], [address] Lymphocytes/100 WBC (Bld) 22.8 % Normal 19-41 [facility] Comment on above: Performed By: #### L 501.2450, L500.4050, L501.6901, L100.0100 ####[facility] [address] [place], [address] Nucleated RBC (Bld) [#/Vol] 0 10*3/uL Normal 0-5 [facility] Comment on above: Performed By: #### L 501.2450, L500.4050, L501.6901, L100.0100 ####[facility] [address] [place], [address] RDW SD 39.8 fl Normal 35.1-43.9 [facility] Comment on above: Performed By: #### L 501.2450, L500.4050, L501.6901, L100.0100 ####[facility] [address] [place], [address] CO2 (BldV) [Moles/Vol]Ordere d By: Miki Sen on 12-08-2024 CO2 [Moles/Vol] 14 mmol/L Low 23-33 [facility] Carbon dioxide, total [Moles /volume] in Central venous bloodOrdered By: Miki Sne on 12-08-2024 CO2 [Moles/Vol] 12.2 mmol/L Low 21.0-32.0 [facility] Comment on above: Performed By: #### L 501.2450, L500.4050, L501.6901, L100.0100 ####[facility] [address] [place], [address] Chloride assayOrdered By: Seng Sen on 12-08-2024 Chloride [Moles/Vol] 90 mmol/L Low 98-108 [facility] Comment on above: Performed By: #### L 501.2450, L500.4050, L501.6901, L100.0100 ####[facility] [address] [place], [address] Comprehensive Metabolic Prof aris 12-08-2024 ALK PHOS 108 U/L High 35-104 [facility] Comment on above: Performed By: #### L 501.2450, L500.4050, L501.6901, L100.0100 ####[facility] [address] [place], [address] BUN/CRE 19.5 RATIO Normal 10-20 [facility] Comment on above: Performed By: #### L 501.2450, L500.4050, L501.6901, L100.0100 ####[facility] [address] [place], [address] ECRCL 35.48 ml/min Low 50-250 [facility] Comment on above: Performed By: #### L 501.2450, L500.4050, L501.6901, L100.0100 ####[facility] [address] [place], [address] GAP 26 High 5-15 [facility] Comment on above: Performed By: #### L 501.2450, L500.4050, L501.6901, L100.0100 ####[facility] [address] [place], [address] Potassium [Moles/Vol] 4.9 mmol/L Normal 3.3-5.1 [facility] Comment on above: Performed By: #### L 501.2450, L500.4050, L501.6901, L100.0100 ####[facility] [address] [place], [address] T PROT 7.5 g/dL Normal 5.9-8.4 [facility] Comment on above: Performed By: #### L 501.2450, L500.4050, L501.6901, L100.0100 ####[facility] [address] [place], [address] Comprehensive Metabolic Prof ilOrdered By: Miki Sen on 12-08-2024 AST [Catalytic activity/Vol] 13 U/L Normal <=31 [facility] Comment on above: Performed By: #### L 501.2450, L500.4050, L501.6901, L100.0100 ####[facility] [address] [place], [address] Emergency Department Summary on 12-08-2024 Emergency Department Summary Normal [facility] Eosinophil percentageOrdered By: Miki Sen on 12-08-2024 Eosinophils/100 WBC (Bld) 0.9 % Normal 0-5 [facility] Comment on above: Performed By: #### L 501.2450, L500.4050, L501.6901, L100.0100 ####[facility] [address] [place], [address] Erythrocyte distribution wid th ratioOrdered By: Miki Sen on 12-08-2024 Erythrocyte distribution width (RBC) [Ratio] 12.5 % Normal 11.6-14.6 [facility] Comment on above: Performed By: #### L 501.2450, L500.4050, L501.6901, L100.0100 ####[facility] [address] [place], [address] Erythrocyte distribution wid th standard deviationOrdered By: Miki Sen on 12-08-2024 Erythrocyte distribution width (RBC) [Ratio] 39.8 fl 35.1-43.9 [facility] Glomerular filtration rate ( GFR) estimation/1.73 sq m using serum, plasma, or whole bOrdered By: Miki Sen on 12-08-2024 GFR/1.73 sq M.predicted among non-blacks MDRD (S/P/Bld) [Vol rate/Area] 44 mL/min/{1.73_m2} Low >60 [facility] Comment on above: mL/min/1.73m2 CKD-EP I Creatinine Equation (2020) Result Comment: mL/m in/1.73m2 CKD-EPI Creatinine Equation (2020) Performed By: #### L 501.2450, L500.4050, L501.6901, L100.0100 ####[facility] [address] [place], [address] [facility] deOrdered By: Miki Sen on 12-08-2024 Glucose [Mass/Vol] 231 mg/dL High 74-106 [facility] Comment on above: MANAGEMENT OF PATIEN T CARE PER NURSING PROTOCOL Hemoglobin measurementOrdere d By: Miki Sen on 12-08-2024 Hemoglobin (Bld) [Mass/Vol] 11.0 g/dL Low 12.0-15.0 [facility] Comment on above: Performed By: #### L 501.2450, L500.4050, L501.6901, L100.0100 ####[facility] [address] [place], [address] Immature granulocytes/100 WB C Auto (Bld)Ordered By: Miki Sen on 12-08-2024 Immature granulocytes/100 WBC (Bld) 0.300 % 0.0-0.9 [facility] Comment on above: IG% - Immature Granu locytes (promyelocytes, myelocytes and metamyelocytes) > 1% indicates that a LEFT SHIFT is Present. Ketones Test strip Ql (U)Ord ered By: Miki Sen on 12-08-2024 Ketones Ql (U) 150 mg/dl Abnormal Negative [facility] Comment on above: CRITICAL VALUE *HRES ULTS CALLED TO LSPARR 12/08/24 2245 Daniela Seth.REPORT READ BACK BY SAME. Lipase measurementOrdered By : Miki Sen on 12-08-2024 Lipase [Catalytic activity/Vol] 49 U/L Normal 13-75 [facility] Comment on above: Please note:LIPASE r evised reference range effective 22. New Lipase methodology. Expected to produce lower values than the previous assay method. NEW Reference Range: 13 - 75 U/L Result Comment: Lindy gabriel note:LIPASE revised reference range effective 22.New Lipase methodology. Expected to produce lower valuesthan the previous assay method.NEW Reference Range: 13 - 75 U/L Performed By: #### L 501.2450, L500.4050, L501.6901, L100.0100 ####[facility] [address] [place], [address] MCV (mean corpuscular volume ) determinationOrdered By: Miki Sen on 12-08-2024 MCV (RBC) [Entitic vol] 87.4 fL Normal 81-99 [facility] Comment on above: Performed By: #### L 501.2450, L500.4050, L501.6901, L100.0100 ####[facility] [address] [place], [address] Magnesium measurement (mass/ volume)Ordered By: Zelda Ibarra on 12-08-2024 Magnesium (Unsp spec) [Mass/Vol] 2.2 mg/dL 1.5-2.2 [facility] Mean corpuscular hemoglobin (MCH) determinationOrdered By: Miki Sen on 12-08-2024 MCH (RBC) [Entitic mass] 29.6 pg Normal 27.0-32.0 [facility] Comment on above: Performed By: #### L 501.2450, L500.4050, L501.6901, L100.0100 ####[facility] [address] [place], [address] Mean corpuscular hemoglobin concentration (MCHC) determinationOrdered By: Miki Sen on 12-08-2024 MCHC (RBC) [Mass/Vol] 33.8 g/dL Normal 32-36 [facility] Comment on above: Performed By: #### L 501.2450, L500.4050, L501.6901, L100.0100 ####[facility] [address] [place], [place], [address] Mean platelet volume determi nationOrdered By: Miki Sen on 12-08-2024 Platelet mean volume (Bld) [Entitic vol] 12.8 fL High 6.2-12.0 [facility] Comment on above: Performed By: #### L 501.2450, L500.4050, L501.6901, L100.0100 ####[facility] [address] [place], [address] Microscopic analysis of urin e for red blood cells (RBC)Ordered By: Miki Sen on 12-08-2024 Microscopic analysis of urine for red blood cells (RBC) 0 SEEN /hpf 0-5 [facility] Monocyte percentageOrdered B y: Miki Sen on 12-08-2024 Monocytes/100 WBC (Bld) 7.7 % Normal 0-10 [facility] Comment on above: Performed By: #### L 501.2450, L500.4050, L501.6901, L100.0100 ####[facility] [address] [place], [address] Mucus LM Ql (Urine sed)Order ed By: Miki Sen on 12-08-2024 Mucus Ql (Urine sed) 0 SEEN /hpf [facility] Neutrophil percentageOrdered By: Miki Sen on 12-08-2024 Neutrophils/100 WBC (Bld) 67.7 % Normal 47-70 [facility] Comment on above: Performed By: #### L 501.2450, L500.4050, L501.6901, L100.0100 ####[facility] [address] [place], [address] Nitrite Test strip Ql (U)Ord ered By: Miki Sen on 12-08-2024 Nitrite Ql (U) Negative Negative [facility] No Panel InformationOrdered By: Miki Sen on 12-08-2024 Blood Gas Sample Site Not entered [facility] Blood Gas Specimen Type LIZY [facility] Oxygen Delivery Device Not entered [facility] Nucleated red blood cell per centageOrdered By: Miki Sen on 12-08-2024 Nucleated RBC/100 WBC (Bld) [Ratio] 0 % 0-5 [facility] Platelet countOrdered By: Seng Sen on 12-08-2024 Platelets (Bld) [#/Vol] 230 10*3/uL Normal 150-450 [facility] Comment on above: Performed By: #### L 501.2450, L500.4050, L501.6901, L100.0100 ####[facility] [address] [place], [address] Potassium measurement (mass/ volume)Ordered By: Miki Sen on 12-08-2024 Potassium (Unsp spec) [Mass/Vol] 4.9 mmol/L 3.3-5.1 [facility] Protein Test strip Ql (U)Ord ered By: Miki Sen on 12-08-2024 Protein Ql (U) 30 mg/dl High Negative [facility] Serum creatinine measurement (mass/volume)Ordered By: Miki Sen on 12-08-2024 Creatinine [Mass/Vol] 1.36 mg/dL High 0.70-1.20 [facility] Comment on above: Performed By: #### L 501.2450, L500.4050, L501.6901, L100.0100 ####[facility] [address] [place], [address] Serum globulin measurementOr dered By: Miki Sen on 12-08-2024 Globulin (S) [Mass/Vol] 3.2 g/dL Normal 2.2-4.2 [facility] Comment on above: Performed By: #### L 501.2450, L500.4050, L501.6901, L100.0100 ####[facility] [address] [place], [address] Serum glucose measurement (m ass/volume)Ordered By: Miki Sen on 12-08-2024 Glucose [Mass/Vol] 592 mg/dL Invalid Interpretation Code 70-99 [facility] Comment on above: Critical Result(s) C alled at: 2145 by: RANI MELISSA TO APOLONIA SPARR Results read back by same. Result Comment: Crit ical Result(s) Called at: 2145 by: RANI MELISSA TO NOLANR??Results read back by same. Performed By: #### L 501.2450, L500.4050, L501.6901, L100.0100 ####[facility] [address] [place], [address] Serum or plasma alanine hargrove otransferase (ALT) measurementOrdered By: Miki Sen on 12-08-2024 ALT [Catalytic activity/Vol] 14 U/L Normal <=34 [facility] Comment on above: Performed By: #### L 501.2450, L500.4050, L501.6901, L100.0100 ####[facility] [address] [place], [address] Serum or plasma albumin jn urement (mass/volume)Ordered By: Miki Sen on 12-08-2024 Albumin [Mass/Vol] 4.3 g/dL Normal 3.4-4.8 [facility] Comment on above: Performed By: #### L 501.2450, L500.4050, L501.6901, L100.0100 ####[facility] [address] [place], [address] Serum or plasma albumin/glob ulin mass ratioOrdered By: Miki Sen on 12-08-2024 Albumin/Globulin [Mass ratio] 1.4 {ratio} Normal 0.9-2.4 [facility] Comment on above: Performed By: #### L 501.2450, L500.4050, L501.6901, L100.0100 ####[facility] [address] [place], [address] Serum or plasma alkaline regis sphatase measurementOrdered By: Miki Sen on 12-08-2024 ALP [Catalytic activity/Vol] 108 U/L High 35-104 [facility] Serum or plasma calcium jn urement (mass/volume)Ordered By: Miki Sen on 12-08-2024 Calcium [Mass/Vol] 9.7 mg/dL Normal 7.6-11.0 [facility] Comment on above: Performed By: #### L 501.2450, L500.4050, L501.6901, L100.0100 ####[facility] [address] [place], [address] Serum or plasma urea nitroge n measurement (mass/volume)Ordered By: Miki Sen on 12-08-2024 Urea nitrogen [Mass/Vol] 27 mg/dL High 4-19 [facility] Comment on above: Performed By: #### L 501.2450, L500.4050, L501.6901, L100.0100 ####[facility] [address] [place], [address] Sodium levelOrdered By: Sharita Sen on 12-08-2024 Sodium [Moles/Vol] 128 mmol/L Low 133-145 [facility] Comment on above: Performed By: #### L 501.2450, L500.4050, L501.6901, L100.0100 ####[facility] [address] [place], [address] Squamous epithelial cells de tection in urine sediment by light microscopyOrdered By: Miki Sen on 12-08-2024 Epithelial cells.squamous LM Ql (Urine sed) 0 SEEN /hpf 5-10 [facility] Total proteinOrdered By: King Sen on 12-08-2024 Protein [Mass/Vol] 7.5 g/dL 5.9-8.4 [facility] Urinalysis, Completeon 12-08 BACTERIA 0 SEEN Normal None Seen [facility] Comment on above: Order Comment: CLEAN CATCH Performed By: #### L 400.0001 ####[facility] [address] [place], [address] EPI,SQUAMOUS 0 SEEN Normal 5-10 [facility] Comment on above: Order Comment: CLEAN CATCH Performed By: #### L 400.0001 ####[facility] [address] [place], [address] Mucus Ql (Urine sed) 0 SEEN Normal [facility] Comment on above: Order Comment: CLEAN CATCH Performed By: #### L 400.0001 ####[facility] [address] [place], [address] RBC 0 SEEN Normal 0-5 [facility] Comment on above: Order Comment: CLEAN CATCH Performed By: #### L 400.0001 ####[facility] [address] [place], [address] WBC 0 SEEN Normal 0-5 [facility] Comment on above: Order Comment: CLEAN CATCH Performed By: #### L 400.0001 ####[facility] [address] [place], [address] Urine clarityOrdered By: King Sen on 12-08-2024 Clarity (U) Clear Clear [facility] Urine color determinationOrd ered By: Miki Sen on 12-08-2024 Color (U) Yellow Yellow [facility] Urine glucose detectionOrder ed By: Miki Sen on 12-08-2024 Glucose Ql (U) 1000 mg/dl High Normal [facility] Urine leukocyte esterase det ection by dipstickOrdered By: Miki Sen on 12-08-2024 Leukocyte esterase Test strip Ql (U) Negative Negative [facility] Urine pHOrdered By: Miki lieberman on 12-08-2024 pH (U) 6.0 [pH] 5.0 - 8.0 [facility] Urine sediment bacteria coun t by microscopy (number/high power field)Ordered By: Miki Sen on 12-08-2024 Bacteria LM.HPF (Urine sed) [#/Area] 0 /[HPF] None Seen [facility] Urine specific gravity measu rementOrdered By: Miki Sen on 12-08-2024 Specific gravity (U) [Rel density] 1.015 1.002-1.030 [facility] Urine urobilinogen measureme ntOrdered By: Miki Sen on 12-08-2024 Urobilinogen Ql (U) Normal mg/dl Normal [facility] Venous Blood Gason Blood Gas Type LIZY Normal [facility] Comment on above: Performed By: #### L 9000.0810 ####[facility] [address] [place], [address] CO2 [Moles/Vol] 14 mmol/L Low 23-33 [facility] Comment on above: Performed By: #### L 9000.0810 ####[facility] [address] [place], [address] HCO3 (Bld) [Moles/Vol] 13 mmol/L Low 22-26 [facility] Comment on above: Performed By: #### L 9000.0810 ####[facility] [address] [place], [address] O2 Delivery Dev Not entered [facility] Comment on above: Performed By: #### L 9000.0810 ####[facility] [address], [address] SITE Not entered [facility] Comment on above: Performed By: #### L 9000.0810 ####[facility] [address] [place], [address] VBG BE -15 mmol/L Low -1.0-3.5 [facility] Comment on above: Performed By: #### L 9000.0810 ####[facility] [address] [place], [address] VBG pCO2 31.1 mmHg Low 41-51 [facility] Comment on above: Performed By: #### L 9000.0810 ####[facility] [address] [place], [address] VBG pH 7.21 Low 7.32-7.42 [facility] Comment on above: Performed By: #### L 9000.0810 ####[facility] [address] [place], [address] VBG PO2 31 mmHg Normal 25-40 [facility] Comment on above: Performed By: #### L 9000.0810 ####[facility] [address] [place], [address] VBG SO2 47 Low 50-70 [facility] Comment on above: Performed By: #### L 9000.0810 ####[facility] [address] [place], [place], [address] Venous blood base excess tristan surementOrdered By: Miki Sen on 12-08-2024 Base excess Calc (BldV) [Moles/Vol] -15 mmol/L Low -1.0-3.5 [facility] Venous blood bicarbonate trsitan surementOrdered By: Miki Sen on 12-08-2024 HCO3 (Bld) [Moles/Vol] 13 mmol/L Low 22-26 [facility] Venous blood oxygen saturati on measurementOrdered By: Miki Sen on 12-08-2024 Oxygen saturation in Blood 47 % Low 50-70 [facility] Venous blood pH measurementO rdered By: Miki Sen on 12-08-2024 pH (BldV) 7.21 [pH] Low 7.32-7.42 [facility] Venous blood partial pressur e of carbon dioxide measurementOrdered By: Miki Sen on 12-08-2024 CO2 (BldV) [Partial pressure] 31.1 mm[Hg] Low 41-51 [facility] Venous blood partial pressur e of oxygen measurementOrdered By: Miki Sen on 12-08-2024 Oxygen (BldV) [Partial pressure] 31 mm[Hg] 25-40 [facility] White blood cell (WBC) count Ordered By: Miki Sen on 12-08-2024 WBC (Bld) [#/Vol] 7.9 10*3/uL Normal 4.4-11.0 [facility] Comment on above: Performed By: #### L 501.2450, L500.4050, L501.6901, L100.0100 ####[facility] [address] [place], [place], [id number] White blood cell countOrdere d By: Miki Sen on 12-08-2024 White blood cell count 0 SEEN /hpf 0-5 [facility] Albumin DL <= 20 mg/L (U) [M ass/Vol]Ordered By: Milind Lamb on 10-18-2024 Urine Random Microalbumin 34.1 mg/L NO RANGE EST. [facility] Anion gap in Serum or Plasma Ordered By: Milind Lamb on 10-18-2024 Anion gap [Moles/Vol] 14 mmol/L 5-15 [facility] BUN/creatinine ratioOrdered By: Milind Lamb on 10-18-2024 Urea nitrogen/Creatinine [Mass ratio] 12.4 mg/mg 10-20 [facility] Bilirubin, totalOrdered By: Milind Lamb on 10-18-2024 Bilirubin [Mass/Vol] 0.28 mg/dL 0.00-1.30 [facility] Calculated very low density lipoprotein (VLDL) cholesterol measurementOrdered By: Milind Lamb on 10-18-2024 Calculated very low density lipoprotein (VLDL) cholesterol measurement 23 mg/dL - [facility] VLDL Cholesterol 23 mg/dL [facility] Carbon dioxide, total [Moles /volume] in Central venous bloodOrdered By: Milind Lamb on 10-18-2024 CO2 [Moles/Vol] 23.5 mmol/L 21.0-32.0 [facility] Chloride assayOrdered By: Darek Lamb on 10-18-2024 Chloride [Moles/Vol] 100 mmol/L 98-108 [facility] Comprehensive Metabolic Prof ilon 10-18-2024 Albumin [Mass/Vol] 4.7 g/dL Normal 3.4-4.8 [facility] Comment on above: Performed By: #### L 502.0250, L500.4100, L500.4050 ####[facility] [address] [place], [address] Albumin/Globulin [Mass ratio] 1.4 {ratio} Normal 0.9-2.4 [facility] Comment on above: Performed By: #### L 502.0250, L500.4100, L500.4050 ####[facility] [address] [place], [address] ALK PHOS 94 U/L Normal 35-104 [facility] Comment on above: Performed By: #### L 502.0250, L500.4100, L500.4050 ####[facility] [address] [place], [address] ALT [Catalytic activity/Vol] 10 U/L Normal <=34 [facility] Comment on above: Performed By: #### L 502.0250, L500.4100, L500.4050 ####[facility] [address] [place], [address] AST [Catalytic activity/Vol] 13 U/L Normal <=31 [facility] Comment on above: Performed By: #### L 502.0250, L500.4100, L500.4050 ####[facility] [address] [place], [address] Bilirubin [Mass/Vol] 0.28 mg/dL Normal 0.00-1.30 [facility] Comment on above: Performed By: #### L 502.0250, L500.4100, L500.4050 ####[facility] [address] [place], [address] BUN/CRE 12.4 RATIO Normal 10-20 [facility] Comment on above: Performed By: #### L 502.0250, L500.4100, L500.4050 ####[facility] [address] [place], [address] Calcium [Mass/Vol] 10.3 mg/dL Normal 7.6-11.0 [facility] Comment on above: Performed By: #### L 502.0250, L500.4100, L500.4050 ####[facility] [address] [place], [address] Chloride [Moles/Vol] 100 mmol/L Normal 98-108 [facility] Comment on above: Performed By: #### L 502.0250, L500.4100, L500.4050 ####[facility] [address] [place], [address] CO2 [Moles/Vol] 23.5 mmol/L Normal 21.0-32.0 [facility] Comment on above: Performed By: #### L 502.0250, L500.4100, L500.4050 ####[facility] [address] [place], [address] Creatinine [Mass/Vol] 0.94 mg/dL Normal 0.70-1.20 [facility] Comment on above: Performed By: #### L 502.0250, L500.4100, L500.4050 ####[facility] [address] [place], [address] GAP 14 Normal 5-15 [facility] Comment on above: Performed By: #### L 502.0250, L500.4100, L500.4050 ####[facility] [address] [place], [address] GFR/1.73 sq M.predicted among non-blacks MDRD (S/P/Bld) [Vol rate/Area] 68 mL/min/{1.73_m2} Normal >60 [facility] Comment on above: Result Comment: mL/m in/1.73m2 CKD-EPI Creatinine Equation (2020) Performed By: #### L 502.0250, L500.4100, L500.4050 ####[facility] [address] [place], [address] Globulin (S) [Mass/Vol] 3.3 g/dL Normal 2.2-4.2 [facility] Comment on above: Performed By: #### L 502.0250, L500.4100, L500.4050 ####[facility] [address] [place], [address] Glucose [Mass/Vol] 213 mg/dL High 70-99 [facility] Comment on above: Performed By: #### L 502.0250, L500.4100, L500.4050 ####[facility] [address] [place], [address] Potassium [Moles/Vol] 4.1 mmol/L Normal 3.3-5.1 [facility] Comment on above: Performed By: #### L 502.0250, L500.4100, L500.4050 ####[facility] [address] [place], [address] Sodium [Moles/Vol] 137 mmol/L Normal 133-145 [facility] Comment on above: Performed By: #### L 502.0250, L500.4100, L500.4050 ####[facility] [address] [place], [address] T PROT 8.1 g/dL Normal 5.9-8.4 [facility] Comment on above: Performed By: #### L 502.0250, L500.4100, L500.4050 ####[facility] [address] [place], [address] Urea nitrogen [Mass/Vol] 12 mg/dL Normal 4-19 [facility] Comment on above: Performed By: #### L 502.0250, L500.4100, L500.4050 ####[facility] [address] [place], [place], [address] Creatinine Unsp time (U) [Ma ss/Vol]Ordered By: Milind Lamb on 10-18-2024 Creatinine (U) [Mass/Vol] 168.00 mg/dL 28.00-217.0 0 [facility] GFR/1.73 sq M.predicted raoul g non-blacks MDRD (S/P/Bld) [Vol rate/Area]Ordered By: Milind Lamb on 10-18-2024 Estimated GFR (MDRD) Non-Af Amer 68 >60 [facility] Comment on above: mL/min/1.73m2 CKD-EP I Creatinine Equation (2020) Glomerular filtration rate ( GFR) estimation/1.73 sq m using serum, plasma, or whole bOrdered By: Milind Lamb on 10-18-2024 GFR/1.73 sq M.predicted among non-blacks MDRD (S/P/Bld) [Vol rate/Area] 68 mL/min/{1.73_m2} >60 [facility] Comment on above: mL/min/1.73m2 CKD-EP I Creatinine Equation (2020) LDL calc ser/plasOrdered By: Milind Lamb on 10-18-2024 Cholesterol in LDL [Mass/Vol] 136 mg/dL [facility] Comment on above: Tudijmzrtg=318-210 m g/dL & Higher Mpnq=807 mg/dL or greater LDL Cholesterol, Calculated 136 mg/dL [facility] Comment on above: Wyunrnuxob=192-070 m g/dL & Higher Pedg=144 mg/dL or greater Laboratory - Chemistry and C hemistry - challengeOrdered By: Milind Lamb on 10-18-2024 AST [Catalytic activity/Vol] 13 U/L <32 [facility] Lipid Profileon 10-18-2024 CHOL:HDL 3.13 Normal [facility] Comment on above: Performed By: #### L 502.0250, L500.4100, L500.4050 ####[facility] [address] [place], [place], [address] Cholesterol [Mass/Vol] 233 mg/dL High <=200 [facility] Comment on above: Result Comment: Chol esterol level, Desirable <200 mg/dLBorderline high cholesterol 200-239 mg/dLHigh cholesterol >=240 mg/dLRecommendations of the NCEP Adult Treatment Panel for thefollowing risk-cutoff thresholds for the [place] American[place]. Performed By: #### L 502.0250, L500.4100, L500.4050 ####[facility] [address] [place], [address] Cholesterol in HDL [Mass/Vol] 74 mg/dL Normal [facility] Comment on above: Result Comment: Kamila onal Cholesterol Education Program (NCEP) guidelines:<40 mg/dL: Low HDL-cholesterol (major risk factor for CHD)>= 60 mg/dL: High HDL-cholesterol (negative risk factor forCHD)HDL-cholesterol is affected by a number of factors, e.g.smoking, exercise, hormones, sex and age. Performed By: #### L 502.0250, L500.4100, L500.4050 ####[facility] [address] [place], [address] Cholesterol in LDL [Mass/Vol] 136 mg/dL Normal [facility] Comment on above: Result Comment: Bord dpksbc=451-767 mg/dL Higher Bvmv=636 mg/dL or greater Performed By: #### L 502.0250, L500.4100, L500.4050 ####[facility] [address] [place], [address] Cholesterol in VLDL [Mass/Vol] 23 mg/dL Normal 5-40 [facility] Comment on above: Performed By: #### L 502.0250, L500.4100, L500.4050 ####[facility] [address] [place], [address] Triglyceride [Mass/Vol] 115 mg/dL Normal [facility] Comment on above: Result Comment: The drugs N-Acetylcysteine and Metamizole may falselydepress this assay.Normal range: <150 mg/dLBorderline High: 150-199 mg/dLHigh: 200-499 mg/dLVery High: >500 mg/dL Performed By: #### L 502.0250, L500.4100, L500.4050 ####[facility] [address] [place], [address] Microalbumin/creat ratio urO rdered By: Milind Lamb on 10-18-2024 Urine Microalbumin/Creatinine Ratio 203.0 mg/g CRE [facility] Potassium (Unsp spec) [Mass/ Vol]Ordered By: Milind Lamb on 10-18-2024 Potassium [Moles/Vol] 4.1 mmol/L 3.3-5.1 [facility] Potassium measurement (mass/ volume)Ordered By: Milind Lamb on 10-18-2024 Potassium (Unsp spec) [Mass/Vol] 4.1 mmol/L 3.3-5.1 [facility] Random urine creatinine jn urement (mass/volume)Ordered By: Milind Lamb on 10-18-2024 Creatinine Unsp time (U) [Mass/Vol] 168.00 mg/dL 28.00-217.0 0 [facility] Screening total cholesterol/ high density lipoprotein (HDL) cholesterol ratioOrdered By: Milind Lamb on 10-18-2024 Cholesterol.total/Misa sterol in HDL [Mass ratio] 3.13 {ratio} [facility] Serum creatinine measurement (mass/volume)Ordered By: Milind Lamb on 10-18-2024 Creatinine [Mass/Vol] 0.94 mg/dL 0.70-1.20 [facility] Serum globulin measurementOr dered By: Milind Lamb on 10-18-2024 Globulin (S) [Mass/Vol] 3.3 g/dL 2.2-4.2 [facility] Serum glucose measurement (m ass/volume)Ordered By: Milind Lamb on 10-18-2024 Glucose [Mass/Vol] 213 mg/dL High 70-99 [facility] Serum or plasma alanine hargrove otransferase (ALT) measurementOrdered By: Milind Lamb on 10-18-2024 ALT [Catalytic activity/Vol] 10 U/L <35 [facility] Serum or plasma albumin jn urement (mass/volume)Ordered By: Milind Lamb on 10-18-2024 Albumin [Mass/Vol] 4.7 g/dL 3.4-4.8 [facility] Serum or plasma albumin/glob ulin mass ratioOrdered By: Milind Lamb on 10-18-2024 Albumin/Globulin [Mass ratio] 1.4 {ratio} 0.9-2.4 [facility] Serum or plasma alkaline regis sphatase measurementOrdered By: Milind Lamb on 10-18-2024 ALP [Catalytic activity/Vol] 94 U/L 35-104 [facility] Serum or plasma calcium jn urement (mass/volume)Ordered By: Milind Lamb on 10-18-2024 Calcium [Mass/Vol] 10.3 mg/dL 7.6-11.0 [facility] Serum or plasma cholesterol in HDL measurement (mass/volume)Ordered By: Milind Lamb on 10-18-2024 Cholesterol in HDL [Mass/Vol] 74 mg/dL >40 [facility] Comment on above: National Cholesterol Education Program (NCEP) guidelines:<40 mg/dL: Low HDL-cholesterol (major risk factor for CHD)>= 60 mg/dL: High HDL-cholesterol (negative risk factor for CHD)HDL-cholesterol is affected by a number of factors, e.g. smoking, exercise, hormones, sex and age. Serum or plasma cholesterol measurement (mass/volume)Ordered By: Milind Lamb on 10-18-2024 Cholesterol [Mass/Vol] 233 mg/dL High <201 [facility] Comment on above: Cholesterol level, D esirable <200 mg/dLBorderline high cholesterol 200-239 mg/dLHigh cholesterol >=240 mg/dLRecommendations of the NCEP Adult Treatment Panel for the following risk-cutoff thresholds for the [place] population. Serum or plasma urea nitroge n measurement (mass/volume)Ordered By: Milind Lamb on 10-18-2024 Urea nitrogen [Mass/Vol] 12 mg/dL 4-19 [facility] Sodium levelOrdered By: Milind Lamb on 10-18-2024 Sodium [Moles/Vol] 137 mmol/L 133-145 [facility] Total proteinOrdered By: Bri Lamb on 10-18-2024 Protein [Mass/Vol] 8.1 g/dL 5.9-8.4 [facility] Triglycerides measurementOrd ered By: Milind Lamb on 10-18-2024 Triglyceride [Mass/Vol] 115 mg/dL <199 [facility] Comment on above: The drugs N-Acetylcy steine and Metamizole may falsely depress this assay. Normal range: <150 mg/dLBorderline High: 150-199 mg/dLHigh: 200-499 mg/dLVery High: >500 mg/dL Urine albumin measurement wi th detection limit of 20 mg/L or less (mass/volume)Ordered By: Milind Lamb on 10-18-2024 Albumin DL <= 20 mg/L (U) [Mass/Vol] 34.1 mg/L NO RANGE EST. [facility] Office Visit Reporton 2024 Office Visit Report Normal [facility] Albumin to globulin ratioOrd ered By: Milind Lamb on 07-20-2024 Albumin/Globulin [Mass ratio] 1.0 {ratio} 0.9-2.4 [facility] Bilirubin, totalOrdered By: Milind Lamb on 07-20-2024 Bilirubin [Mass/Vol] 0.50 mg/dL 0.20-1.00 [facility] Comment on above: For patients on eltr ombopag therapy, use of Dimension [place] TBIL is not recommended. Blood urea nitrogen (BUN)/cr eatinine ratioOrdered By: Milind Lamb on 07-20-2024 Urea nitrogen/Creatinine [Mass ratio] 23.7 mg/mg High 10-20 [facility] Carbon dioxide measurementOr dered By: Milind Lamb on 07-20-2024 CO2 [Moles/Vol] 29.0 mmol/L 21.0-32.0 [facility] Chloride measurementOrdered By: Milind Lamb on 07-20-2024 Chloride [Moles/Vol] 104 mmol/L 98-107 [facility] Comprehensive Metabolic Prof ilon 07-20-2024 Albumin [Mass/Vol] 3.7 g/dL Normal 3.2-5.0 [facility] Comment on above: Performed By: #### L 500.4100, L500.4050, L501.0900, L501.9985 ####[facility] [address] [place], [address] Albumin/Globulin [Mass ratio] 1.0 {ratio} Normal 0.9-2.4 [facility] Comment on above: Performed By: #### L 500.4100, L500.4050, L501.0900, L501.9985 ####[facility] [address] [place], [address] ALK P 91 U/L Normal 45-117 [facility] Comment on above: Performed By: #### L 500.4100, L500.4050, L501.0900, L501.9985 ####[facility] [address] [place], [address] ALT [Catalytic activity/Vol] 11 U/L Low 13-56 [facility] Comment on above: Performed By: #### L 500.4100, L500.4050, L501.0900, L501.9985 ####[facility] [address] [place], [address] AST [Catalytic activity/Vol] 4 U/L Low 15-37 [facility] Comment on above: Performed By: #### L 500.4100, L500.4050, L501.0900, L501.9985 ####[facility] [address] [place], [address] Bilirubin [Mass/Vol] 0.50 mg/dL Normal 0.20-1.00 [facility] Comment on above: Result Comment: For patients on eltrombopag therapy, use of [employer] [place] TBIL is not recommended. Performed By: #### L 500.4100, L500.4050, L501.0900, L501.9985 ####[facility] [address] [place], [address] BUN/CRE 23.7 RATIO High 10-20 [facility] Comment on above: Performed By: #### L 500.4100, L500.4050, L501.0900, L501.9985 ####[facility] [address] [place], [address] CA,Total 10.2 mg/dL High 8.5-10.1 [facility] Comment on above: Performed By: #### L 500.4100, L500.4050, L501.0900, L501.9985 ####[facility] [address] [place], [place], [address] Chloride [Moles/Vol] 104 mmol/L Normal 98-107 [facility] Comment on above: Performed By: #### L 500.4100, L500.4050, L501.0900, L501.9985 ####[facility] [address] [place], [address] CO2 [Moles/Vol] 29.0 mmol/L Normal 21.0-32.0 [facility] Comment on above: Performed By: #### L 500.4100, L500.4050, L501.0900, L501.9985 ####[facility] [address] [place], [address] Creatinine [Mass/Vol] 0.76 mg/dL Normal 0.55-1.02 [facility] Comment on above: Result Comment: The validity of the calculated GFR GFRAA in patients over70 years has not been determined. Clinical correlation isessential. Performed By: #### L 500.4100, L500.4050, L501.0900, L501.9985 ####[facility] [address] [place], [address] EST GFR - AA 99 mL/min Normal >60 [facility] Comment on above: Result Comment: Afri can Dominican GFR Calc Performed By: #### L 500.4100, L500.4050, L501.0900, L501.9985 ####[facility] [address] [place], [address] GAP 5 Normal 5-15 [facility] Comment on above: Performed By: #### L 500.4100, L500.4050, L501.0900, L501.9985 ####[facility] [address] [place], [address] GFR/1.73 sq M.predicted among non-blacks MDRD (S/P/Bld) [Vol rate/Area] 82 mL/min/{1.73_m2} Normal >60 [facility] Comment on above: Result Comment: Non- GFR Calc Performed By: #### L 500.4100, L500.4050, L501.0900, L501.9985 ####[facility] [address] [place], [address] Globulin (S) [Mass/Vol] 3.8 g/dL Normal 2.2-4.2 [facility] Comment on above: Performed By: #### L 500.4100, L500.4050, L501.0900, L501.9985 ####[facility] [address] [place], [address] Glucose [Mass/Vol] 101 mg/dL Normal 74-106 [facility] Comment on above: Result Comment: Fast ing Glucose result from 100 to 125 mg/dLsuggests IMPAIRED HOMEOSTASIS per A.D.A. criteria. Performed By: #### L 500.4100, L500.4050, L501.0900, L501.9985 ####[facility] [address] [place], [address] Potassium [Moles/Vol] 4.0 mmol/L Normal 3.5-5.1 [facility] Comment on above: Performed By: #### L 500.4100, L500.4050, L501.0900, L501.9985 ####[facility] [address] [place], [address] Sodium [Moles/Vol] 138 mmol/L Normal 136-145 [facility] Comment on above: Performed By: #### L 500.4100, L500.4050, L501.0900, L501.9985 ####[facility] [address] [place], [address] T PROT 7.5 g/dL Normal 6.4-8.2 [facility] Comment on above: Performed By: #### L 500.4100, L500.4050, L501.0900, L501.9985 ####[facility] [address] [place], [address] Urea nitrogen [Mass/Vol] 18 mg/dL Normal 7-18 [facility] Comment on above: Performed By: #### L 500.4100, L500.4050, L501.0900, L501.9985 ####[facility] [address] [place], [address] Estimated glomerular filtrat ion rate (GFR) AmericanOrdered By: Milind Lamb on 07-20-2024 Estimated GFR (MDRD) Amer 99 mL/min >60 [facility] Comment on above: GFR Calc Glomerular filtration rate ( GFR) estimationOrdered By: Milind Lamb on 07-20-2024 Estimated GFR (MDRD) Non-Af Amer 82 mL/min >60 [facility] Comment on above: Non- GFR Calc Glucose measurementOrdered B y: Milind Lamb on 07-20-2024 Glucose [Mass/Vol] 101 mg/dL 74-106 [facility] Comment on above: Fasting Glucose resu lt from 100 to 125 mg/dL suggests IMPAIRED HOMEOSTASIS per A.D.A. criteria. Hemoglobin A1con 07-20-2024 HbA1c (Bld) [Mass fraction] 12.6 % High 3.8-5.6 [facility] Comment on above: Result Comment: Norm al < 5.7 % Prediabetic 5.7 - 6.4 % Diabetic >or= 6.5 % Please note range changes. Performed By: #### L 500.4100, L500.4050, L501.0900, L501.9985 ####[facility] [address] [place], [place], [address] Hemoglobin A1c percentageOrd ered By: Milind Lamb on 07-20-2024 HbA1c (Bld) [Mass fraction] 12.6 % High 3.8-5.6 [facility] Comment on above: Normal < 5.7 % Predi abetic 5.7 - 6.4 % Diabetic >or= 6.5 % Please note range changes. High density lipoprotein (HD L) measurementOrdered By: Milind Lamb on 07-20-2024 Cholesterol in HDL [Mass/Vol] 102 mg/dL >40 [facility] Comment on above: The drugs N-Acetylcy steine and Metamizole may falsely depress this assay. Reference Range HDL <40 mg/dL Low HDL Cholesterol HDL >or= 60 mg/dL High HDL Cholesterol Laboratory - Chemistry and C hemistry - challengeOrdered By: Milind Lamb on 07-20-2024 AST [Catalytic activity/Vol] 4 U/L Low 15-37 [facility] Lipid Profileon 07-20-2024 Cholesterol [Mass/Vol] 234 mg/dL High 200 [facility] Comment on above: Result Comment: <200 mg/dL Desirable 200-240 mg/dL Borderline >240 mg/dL High Risk Performed By: #### L 500.4100, L500.4050, L501.0900, L501.9985 ####[facility] [address] [place], [address] Cholesterol in HDL [Mass/Vol] 102 mg/dL Normal [facility] Comment on above: Result Comment: The drugs N-Acetylcysteine and Metamizole may falselydepress this assay. Reference Range HDL <40 mg/dL Low HDL Cholesterol HDL >or= 60 mg/dL High HDL Cholesterol Performed By: #### L 500.4100, L500.4050, L501.0900, L501.9985 ####[facility] [address] [place], [address] Cholesterol in LDL [Mass/Vol] 119 mg/dL Normal 0-130 [facility] Comment on above: Performed By: #### L 500.4100, L500.4050, L501.0900, L501.9985 ####[facility] [address] [place], [address] Cholesterol in VLDL [Mass/Vol] 13 mg/dL Normal 5-40 [facility] Comment on above: Performed By: #### L 500.4100, L500.4050, L501.0900, L501.9985 ####[facility] [address] [place], [address] Triglyceride [Mass/Vol] 63 mg/dL Normal [facility] Comment on above: Result Comment: The drugs N-Acetylcysteine and Metamizole may falselydepress this assay.Serum Triglycerides Reference Interval Normal <150 mg/dL Borderline high 150 - 199 mg/dL High 200 - 499 mg/dL Very High > or = 500 mg/dL Performed By: #### L 500.4100, L500.4050, L501.0900, L501.9985 ####[facility] [address] [place], [address] Low density lipoprotein (LDL ) cholesterol measurementOrdered By: Milind Lamb on 07-20-2024 Cholesterol in LDL [Mass/Vol] 119 mg/dL 0-130 [facility] Potassium measurementOrdered By: Milind Lamb on 07-20-2024 Potassium [Moles/Vol] 4.0 mmol/L 3.5-5.1 [facility] Protein+Creatinine Ratio,Uri neon 07-20-2024 PROT:CRE RATIO 218 mg/g CRE High 0-200 [facility] Comment on above: Performed By: #### L 500.4100, L500.4050, L501.0900, L501.9985 ####[facility] [address] [place], [address] Protein (U) [Mass/Vol] 11.8 mg/dL Normal <11.9 [facility] Comment on above: Performed By: #### L 500.4100, L500.4050, L501.0900, L501.9985 ####[facility] [address] [place], [address] UR CREAT 54.20 mg/dL Normal NO RANGE EST. [facility] Comment on above: Performed By: #### L 500.4100, L500.4050, L501.0900, L501.9985 ####[facility] [address] [place], [address] Protein/Creatinine (U) [Mass ratio]Ordered By: Milind Lamb on 07-20-2024 Urine Protein/Creatinine Ratio 218 mg/g CRE High 0-200 [facility] Random urine protein measure mentOrdered By: Milind Lamb on 07-20-2024 Protein (U) [Mass/Vol] 11.8 mg/dL 0.0-11.8 [facility] Serum anion gap measurementO rdered By: Milind Lamb on 07-20-2024 Anion gap [Moles/Vol] 5 mmol/L 5-15 [facility] Serum globulin measurementOr dered By: Milind Lamb on 07-20-2024 Globulin (S) [Mass/Vol] 3.8 g/dL 2.2-4.2 [facility] Serum or plasma alanine hargrove otransferase (ALT) measurementOrdered By: Milind Lamb on 07-20-2024 ALT [Catalytic activity/Vol] 11 U/L Low 13-56 [facility] Serum or plasma albumin jn urement (mass/volume)Ordered By: Milind Lamb on 07-20-2024 Albumin [Mass/Vol] 3.7 g/dL 3.2-5.0 [facility] Serum or plasma alkaline regis sphatase measurementOrdered By: Milind Lamb on 07-20-2024 ALP [Catalytic activity/Vol] 91 U/L 45-117 [facility] Serum or plasma calcium jn urement (mass/volume)Ordered By: Milind Lamb on 07-20-2024 Calcium [Mass/Vol] 10.2 mg/dL High 8.5-10.1 [facility] Serum or plasma cholesterol measurement (mass/volume)Ordered By: Milind Lamb on 07-20-2024 Cholesterol [Mass/Vol] 234 mg/dL High <200 [facility] Comment on above: <200 mg/dL Desirable 200-240 mg/dL Borderline >240 mg/dL High Risk Serum or plasma creatinine m easurement (mass/volume)Ordered By: Milind Lamb on 07-20-2024 Creatinine [Mass/Vol] 0.76 mg/dL 0.55-1.02 [facility] Comment on above: The validity of the calculated GFR & GFRAA in patients over 70 years has not been determined. Clinical correlation is essential. Serum or plasma urea nitroge n measurement (mass/volume)Ordered By: Milind Lamb on 07-20-2024 Urea nitrogen [Mass/Vol] 18 mg/dL 7-18 [facility] Sodium levelOrdered By: Milind Lamb on 07-20-2024 Sodium [Moles/Vol] 138 mmol/L 136-145 [facility] Total proteinOrdered By: Bri Lamb on 07-20-2024 Protein [Mass/Vol] 7.5 g/dL 6.4-8.2 [facility] Triglycerides measurementOrd ered By: Milind Lamb on 07-20-2024 Triglyceride [Mass/Vol] 63 mg/dL <199 [facility] Comment on above: The drugs N-Acetylcy steine and Metamizole may falsely depress this assay.Serum Triglycerides Reference Interval Normal <150 mg/dL Borderline high 150 - 199 mg/dL High 200 - 499 mg/dL Very High > or = 500 mg/dL Urine creatinine measurement (mass/volume)Ordered By: Milind Lamb on 07-20-2024 Creatinine (U) [Mass/Vol] 54.20 mg/dL NO RANGE EST. [facility] Very low density lipoprotein (VLDL) cholesterol measurementOrdered By: Milind Lamb on 07-20-2024 VLDL Cholesterol 13 mg/dL 5-40 [facility] Venous Blood Gason 4 Blood Gas Type LIZY Normal [facility] Comment on above: Performed By: #### L 9000.0810 ####[facility] [address], [address] CO2 [Moles/Vol] 17 mmol/L Low 23-33 [facility] Comment on above: Performed By: #### L 9000.0810 ####[facility] [address], [address] FI02 21.0 Normal [facility] Comment on above: Performed By: #### L 9000.0810 ####[facility] [address] [place], [address] HCO3 (Bld) [Moles/Vol] 15 mmol/L Low 22-26 [facility] Comment on above: Performed By: #### L 9000.0810 ####[facility] [address] [place], [address] O2 Delivery Dev Not entered [facility] Comment on above: Performed By: #### L 9000.0810 ####[facility] [address] [place], [address] SITE Not entered [facility] Comment on above: Performed By: #### L 9000.0810 ####[facility] [address] [place], [address] VBG BE -12 mmol/L Low -1.0-3.5 [facility] Comment on above: Performed By: #### L 9000.0810 ####[facility] [address] [place], [address] VBG pCO2 38.2 mmHg Low 41-51 [facility] Comment on above: Performed By: #### L 9000.0810 ####[facility] [address], [address] VBG pH 7.21 Low 7.32-7.42 [facility] Comment on above: Performed By: #### L 9000.0810 ####[facility] [address] [place], [address] VBG PO2 71 mmHg High 25-40 [facility] Comment on above: Performed By: #### L 9000.0810 ####[facility] [address] [place], [address] VBG SO2 90 High 50-70 [facility] Comment on above: Performed By: #### L 9000.0810 ####[facility] [address] [place], [address] Basic Metabolic Profile (BMP )on 05-11-2024 BUN Normal 7-18 [facility] Comment on above: Result Comment: Canc elled via OM: Order cancelled - Patient discharged Performed By: #### L 100.0100, L500.2500 ####[facility] [address] [place], [address] BUN/CRE Normal 10-20 [facility] Comment on above: Result Comment: Canc elled via OM: Order cancelled - Patient discharged Performed By: #### L 100.0100, L500.2500 ####[facility] [address] [place], [address] CA,Total Normal 8.5-10.1 [facility] Comment on above: Result Comment: Canc elled via OM: Order cancelled - Patient discharged Performed By: #### L 100.0100, L500.2500 ####[facility] [address] [place], [address] CL Normal 98-107 [facility] Comment on above: Result Comment: Canc elled via OM: Order cancelled - Patient discharged Performed By: #### L 100.0100, L500.2500 ####[facility] [address] [place], [address] CO2 Normal 21.0-32.0 [facility] Comment on above: Result Comment: Canc elled via OM: Order cancelled - Patient discharged Performed By: #### L 100.0100, L500.2500 ####[facility] [address] [place], [address] CREAT,SERUM Normal 0.55-1.02 [facility] Comment on above: Result Comment: Canc elled via OM: Order cancelled - Patient discharged Performed By: #### L 100.0100, L500.2500 ####[facility] [address] [place], [address] EST GFR Normal >60 [facility] Comment on above: Result Comment: Canc elled via OM: Order cancelled - Patient discharged Performed By: #### L 100.0100, L500.2500 ####[facility] [address] [place], [address] EST GFR - AA Normal >60 [facility] Comment on above: Result Comment: Canc elled via OM: Order cancelled - Patient discharged Performed By: #### L 100.0100, L500.2500 ####[facility] [address] [place], [address] GAP Normal 5-15 [facility] Comment on above: Result Comment: Canc elled via OM: Order cancelled - Patient discharged Performed By: #### L 100.0100, L500.2500 ####[facility] [address] [place], [address] GLU Normal 74-106 [facility] Comment on above: Result Comment: Canc elled via OM: Order cancelled - Patient discharged Performed By: #### L 100.0100, L500.2500 ####[facility] [address] [place], [address] Potassium Normal 3.5-5.1 [facility] Comment on above: Result Comment: Canc elled via OM: Order cancelled - Patient discharged Performed By: #### L 100.0100, L500.2500 ####[facility] [address] [place], [address] Basic Metabolic Profile (BMP) Normal 136-145 [facility] Comment on above: Result Comment: Canc elled via OM: Order cancelled - Patient discharged Performed By: #### L 100.0100, L500.2500 ####[facility] [address] [place], [address] CBC W/Diff, Automatedon 11-0 -2023 Absolute Neut Normal 2.0-7.7 [facility] Comment on above: Result Comment: Canc elled via OM: Order cancelled - Patient discharged Performed By: #### L 100.0100, L500.2500 ####[facility] [address] [place], [address] HCT Normal 37-47 [facility] Comment on above: Result Comment: Canc elled via OM: Order cancelled - Patient discharged Performed By: #### L 100.0100, L500.2500 ####[facility] [address] [place], [address] HGB Normal 12.0-15.0 [facility] Comment on above: Result Comment: Canc elled via OM: Order cancelled - Patient discharged Performed By: #### L 100.0100, L500.2500 ####[facility] [address] [place], [address] MCH Normal 27.0-32.0 [facility] Comment on above: Result Comment: Canc elled via OM: Order cancelled - Patient discharged Performed By: #### L 100.0100, L500.2500 ####[facility] [address] [place], [address] MCHC Normal 32-36 [facility] Comment on above: Result Comment: Canc elled via OM: Order cancelled - Patient discharged Performed By: #### L 100.0100, L500.2500 ####[facility] [address] [place], [address] MCV Normal 81-99 [facility] Comment on above: Result Comment: Canc elled via OM: Order cancelled - Patient discharged Performed By: #### L 100.0100, L500.2500 ####[facility] [address] [place], [address] NEUT% Normal 47-70 [facility] Comment on above: Result Comment: Canc elled via OM: Order cancelled - Patient discharged Performed By: #### L 100.0100, L500.2500 ####[facility] [address] [place], [address] PLT Normal 150-450 [facility] Comment on above: Result Comment: Canc elled via OM: Order cancelled - Patient discharged Performed By: #### L 100.0100, L500.2500 ####[facility] [address] [place], [address] RBC Normal 4.2-5.4 [facility] Comment on above: Result Comment: Canc elled via OM: Order cancelled - Patient discharged Performed By: #### L 100.0100, L500.2500 ####[facility] [address] [place], [address] RDW CV Normal 11.6-14.6 [facility] Comment on above: Result Comment: Canc elled via OM: Order cancelled - Patient discharged Performed By: #### L 100.0100, L500.2500 ####[facility] [address] [place], [address] RDW SD Normal 35.1-43.9 [facility] Comment on above: Result Comment: Canc elled via OM: Order cancelled - Patient discharged Performed By: #### L 100.0100, L500.2500 ####[facility] [address] [place], [address] WBC Normal 4.4-11.0 [facility] Comment on above: Result Comment: Canc elled via OM: Order cancelled - Patient discharged Performed By: #### L 100.0100, L500.2500 ####[facility] [address] [place], [address] Basic Metabolic Profile (BMP )on 05-10-2024 BUN Normal 7-18 [facility] Comment on above: Result Comment: Canc elled via OM: Order cancelled - Patient discharged Performed By: #### L 100.0100, L500.2500 ####[facility] [address] [place], [address] BUN/CRE Normal 10-20 [facility] Comment on above: Result Comment: Canc elled via OM: Order cancelled - Patient discharged Performed By: #### L 100.0100, L500.2500 ####[facility] [address] [place], [address] CA,Total Normal 8.5-10.1 [facility] Comment on above: Result Comment: Canc elled via OM: Order cancelled - Patient discharged Performed By: #### L 100.0100, L500.2500 ####[facility] [address] [place], [address] CL Normal 98-107 [facility] Comment on above: Result Comment: Canc elled via OM: Order cancelled - Patient discharged Performed By: #### L 100.0100, L500.2500 ####[facility] [address] [place], [address] CO2 Normal 21.0-32.0 [facility] Comment on above: Result Comment: Canc elled via OM: Order cancelled - Patient discharged Performed By: #### L 100.0100, L500.2500 ####[facility] [address] [place], [address] CREAT,SERUM Normal 0.55-1.02 [facility] Comment on above: Result Comment: Canc elled via OM: Order cancelled - Patient discharged Performed By: #### L 100.0100, L500.2500 ####[facility] [address] [place], [address] EST GFR Normal >60 [facility] Comment on above: Result Comment: Canc elled via OM: Order cancelled - Patient discharged Performed By: #### L 100.0100, L500.2500 ####[facility] [address] [place], [address] EST GFR - AA Normal >60 [facility] Comment on above: Result Comment: Canc elled via OM: Order cancelled - Patient discharged Performed By: #### L 100.0100, L500.2500 ####[facility] [address] [place], [address] GAP Normal 5-15 [facility] Comment on above: Result Comment: Canc elled via OM: Order cancelled - Patient discharged Performed By: #### L 100.0100, L500.2500 ####[facility] [address] [place], [address] GLU Normal 74-106 [facility] Comment on above: Result Comment: Canc elled via OM: Order cancelled - Patient discharged Performed By: #### L 100.0100, L500.2500 ####[facility] [address] [place], [address] Potassium Normal 3.5-5.1 [facility] Comment on above: Result Comment: Canc elled via OM: Order cancelled - Patient discharged Performed By: #### L 100.0100, L500.2500 ####[facility] [address] [place], [address] Basic Metabolic Profile (BMP) Normal 136-145 [facility] Comment on above: Result Comment: Canc elled via OM: Order cancelled - Patient discharged Performed By: #### L 100.0100, L500.2500 ####[facility] [address] [place], [address] CBC W/Diff, Automatedon 11-0 Absolute Neut Normal 2.0-7.7 [facility] Comment on above: Result Comment: Canc elled via OM: Order cancelled - Patient discharged Performed By: #### L 100.0100, L500.2500 ####[facility] [address] [place], [address] HCT Normal 37-47 [facility] Comment on above: Result Comment: Canc elled via OM: Order cancelled - Patient discharged Performed By: #### L 100.0100, L500.2500 ####[facility] [address] [place], [address] HGB Normal 12.0-15.0 [facility] Comment on above: Result Comment: Canc elled via OM: Order cancelled - Patient discharged Performed By: #### L 100.0100, L500.2500 ####[facility] [address] [place], [address] MCH Normal 27.0-32.0 [facility] Comment on above: Result Comment: Canc elled via OM: Order cancelled - Patient discharged Performed By: #### L 100.0100, L500.2500 ####[facility] [address] [place], [address] MCHC Normal 32-36 [facility] Comment on above: Result Comment: Canc elled via OM: Order cancelled - Patient discharged Performed By: #### L 100.0100, L500.2500 ####[facility] [address] [place], [address] MCV Normal 81-99 [facility] Comment on above: Result Comment: Canc elled via OM: Order cancelled - Patient discharged Performed By: #### L 100.0100, L500.2500 ####[facility] [address] [place], [address] NEUT% Normal 47-70 [facility] Comment on above: Result Comment: Canc elled via OM: Order cancelled - Patient discharged Performed By: #### L 100.0100, L500.2500 ####[facility] [address] [place], [address] PLT Normal 150-450 [facility] Comment on above: Result Comment: Canc elled via OM: Order cancelled - Patient discharged Performed By: #### L 100.0100, L500.2500 ####[facility] [address] [place], [address] RBC Normal 4.2-5.4 [facility] Comment on above: Result Comment: Canc elled via OM: Order cancelled - Patient discharged Performed By: #### L 100.0100, L500.2500 ####[facility] [address] [place], [address] RDW CV Normal 11.6-14.6 [facility] Comment on above: Result Comment: Canc elled via OM: Order cancelled - Patient discharged Performed By: #### L 100.0100, L500.2500 ####[facility] [address] [place], [address] RDW SD Normal 35.1-43.9 [facility] Comment on above: Result Comment: Canc elled via OM: Order cancelled - Patient discharged Performed By: #### L 100.0100, L500.2500 ####[facility] [address] [place], [address] WBC Normal 4.4-11.0 [facility] Comment on above: Result Comment: Canc elled via OM: Order cancelled - Patient discharged Performed By: #### L 100.0100, L500.2500 ####[facility] [address] [place], [address] Basic Metabolic Profile (BMP )on 05-09-2024 BUN Normal 7-18 [facility] Comment on above: Result Comment: Canc elled via OM: Order cancelled - Patient discharged Performed By: #### L 500.2500, L100.0100 ####[facility] [address] [place], [address] BUN/CRE Normal 10-20 [facility] Comment on above: Result Comment: Canc elled via OM: Order cancelled - Patient discharged Performed By: #### L 500.2500, L100.0100 ####[facility] [address] [place], [address] CA,Total Normal 8.5-10.1 [facility] Comment on above: Result Comment: Canc elled via OM: Order cancelled - Patient discharged Performed By: #### L 500.2500, L100.0100 ####[facility] [address] [place], [address] CL Normal 98-107 [facility] Comment on above: Result Comment: Canc elled via OM: Order cancelled - Patient discharged Performed By: #### L 500.2500, L100.0100 ####[facility] [address] [place], [address] CO2 Normal 21.0-32.0 [facility] Comment on above: Result Comment: Canc elled via OM: Order cancelled - Patient discharged Performed By: #### L 500.2500, L100.0100 ####[facility] [address], [address] CREAT,SERUM Normal 0.55-1.02 [facility] Comment on above: Result Comment: Canc elled via OM: Order cancelled - Patient discharged Performed By: #### L 500.2500, L100.0100 ####[facility] [address] [place], [address] EST GFR Normal >60 [facility] Comment on above: Result Comment: Canc elled via OM: Order cancelled - Patient discharged Performed By: #### L 500.2500, L100.0100 ####[facility] [address] [place], [address] EST GFR - AA Normal >60 [facility] Comment on above: Result Comment: Canc elled via OM: Order cancelled - Patient discharged Performed By: #### L 500.2500, L100.0100 ####[facility] [address] [place], [address] GAP Normal 5-15 [facility] Comment on above: Result Comment: Canc elled via OM: Order cancelled - Patient discharged Performed By: #### L 500.2500, L100.0100 ####[facility] [address] [place], [address] GLU Normal 74-106 [facility] Comment on above: Result Comment: Canc elled via OM: Order cancelled - Patient discharged Performed By: #### L 500.2500, L100.0100 ####[facility] [address] [place], [address] Potassium Normal 3.5-5.1 [facility] Comment on above: Result Comment: Canc elled via OM: Order cancelled - Patient discharged Performed By: #### L 500.2500, L100.0100 ####[facility] [address] [place], [address] Basic Metabolic Profile (BMP) Normal 136-145 [facility] Comment on above: Result Comment: Canc elled via OM: Order cancelled - Patient discharged Performed By: #### L 500.2500, L100.0100 ####[facility] [address] [place], [address] CBC W/Diff, Automatedon 11-0 -2023 Absolute Neut Normal 2.0-7.7 [facility] Comment on above: Result Comment: Canc elled via OM: Order cancelled - Patient discharged Performed By: #### L 500.2500, L100.0100 ####[facility] [address] [place], [address] HCT Normal 37-47 [facility] Comment on above: Result Comment: Canc elled via OM: Order cancelled - Patient discharged Performed By: #### L 500.2500, L100.0100 ####[facility] [address] [place], [address] HGB Normal 12.0-15.0 [facility] Comment on above: Result Comment: Canc elled via OM: Order cancelled - Patient discharged Performed By: #### L 500.2500, L100.0100 ####[facility] [address] [place], [address] MCH Normal 27.0-32.0 [facility] Comment on above: Result Comment: Canc elled via OM: Order cancelled - Patient discharged Performed By: #### L 500.2500, L100.0100 ####[facility] [address] [place], [address] MCHC Normal 32-36 [facility] Comment on above: Result Comment: Canc elled via OM: Order cancelled - Patient discharged Performed By: #### L 500.2500, L100.0100 ####[facility] [address] [place], [address] MCV Normal 81-99 [facility] Comment on above: Result Comment: Canc elled via OM: Order cancelled - Patient discharged Performed By: #### L 500.2500, L100.0100 ####[facility] [address] [place], [address] NEUT% Normal 47-70 [facility] Comment on above: Result Comment: Canc elled via OM: Order cancelled - Patient discharged Performed By: #### L 500.2500, L100.0100 ####[facility] [address] [place], [address] PLT Normal 150-450 [facility] Comment on above: Result Comment: Canc elled via OM: Order cancelled - Patient discharged Performed By: #### L 500.2500, L100.0100 ####[facility] [address] [place], [address] RBC Normal 4.2-5.4 [facility] Comment on above: Result Comment: Canc elled via OM: Order cancelled - Patient discharged Performed By: #### L 500.2500, L100.0100 ####[facility] [address] [place], [address] RDW CV Normal 11.6-14.6 [facility] Comment on above: Result Comment: Canc elled via OM: Order cancelled - Patient discharged Performed By: #### L 500.2500, L100.0100 ####[facility] [address] [place], [address] RDW SD Normal 35.1-43.9 [facility] Comment on above: Result Comment: Canc elled via OM: Order cancelled - Patient discharged Performed By: #### L 500.2500, L100.0100 ####[facility] [address] [place], [address] WBC Normal 4.4-11.0 [facility] Comment on above: Result Comment: Canc elled via OM: Order cancelled - Patient discharged Performed By: #### L 500.2500, L100.0100 ####[facility] [address] [place], [address] Basic Metabolic Profile (BMP )on 05-08-2024 BUN Normal 7-18 [facility] Comment on above: Result Comment: Canc elled via OM: Order cancelled - Patient discharged Performed By: #### L 500.2500, L100.0100 ####[facility] [address] [place], [address] BUN/CRE Normal 10-20 [facility] Comment on above: Result Comment: Canc elled via OM: Order cancelled - Patient discharged Performed By: #### L 500.2500, L100.0100 ####[facility] [address] [place], [address] CA,Total Normal 8.5-10.1 [facility] Comment on above: Result Comment: Canc elled via OM: Order cancelled - Patient discharged Performed By: #### L 500.2500, L100.0100 ####[facility] [address] [place], [address] CL Normal 98-107 [facility] Comment on above: Result Comment: Canc elled via OM: Order cancelled - Patient discharged Performed By: #### L 500.2500, L100.0100 ####[facility] [address] [place], [address] CO2 Normal 21.0-32.0 [facility] Comment on above: Result Comment: Canc elled via OM: Order cancelled - Patient discharged Performed By: #### L 500.2500, L100.0100 ####[facility] [address] [place], [address] CREAT,SERUM Normal 0.55-1.02 [facility] Comment on above: Result Comment: Canc elled via OM: Order cancelled - Patient discharged Performed By: #### L 500.2500, L100.0100 ####[facility] [address] [place], [address] EST GFR Normal >60 [facility] Comment on above: Result Comment: Canc elled via OM: Order cancelled - Patient discharged Performed By: #### L 500.2500, L100.0100 ####[facility] [address] [place], [address] EST GFR - AA Normal >60 [facility] Comment on above: Result Comment: Canc elled via OM: Order cancelled - Patient discharged Performed By: #### L 500.2500, L100.0100 ####[facility] [address] [place], [address] GAP Normal 5-15 [facility] Comment on above: Result Comment: Canc elled via OM: Order cancelled - Patient discharged Performed By: #### L 500.2500, L100.0100 ####[facility] [address] [place], [address] GLU Normal 74-106 [facility] Comment on above: Result Comment: Canc elled via OM: Order cancelled - Patient discharged Performed By: #### L 500.2500, L100.0100 ####[facility] [address] [place], [address] Potassium Normal 3.5-5.1 [facility] Comment on above: Result Comment: Canc elled via OM: Order cancelled - Patient discharged Performed By: #### L 500.2500, L100.0100 ####[facility] [address] [place], [address] Basic Metabolic Profile (BMP) Normal 136-145 [facility] Comment on above: Result Comment: Canc elled via OM: Order cancelled - Patient discharged Performed By: #### L 500.2500, L100.0100 ####[facility] [address] [place], [address] CBC W/Diff, Automatedon 11-0 -2023 Absolute Neut Normal 2.0-7.7 [facility] Comment on above: Result Comment: Canc elled via OM: Order cancelled - Patient discharged Performed By: #### L 500.2500, L100.0100 ####[facility] [address] [place], [address] HCT Normal 37-47 [facility] Comment on above: Result Comment: Canc elled via OM: Order cancelled - Patient discharged Performed By: #### L 500.2500, L100.0100 ####[facility] [address] [place], [address] HGB Normal 12.0-15.0 [facility] Comment on above: Result Comment: Canc elled via OM: Order cancelled - Patient discharged Performed By: #### L 500.2500, L100.0100 ####[facility] [address] [place], [address] MCH Normal 27.0-32.0 [facility] Comment on above: Result Comment: Canc elled via OM: Order cancelled - Patient discharged Performed By: #### L 500.2500, L100.0100 ####[facility] [address] [place], [address] MCHC Normal 32-36 [facility] Comment on above: Result Comment: Canc elled via OM: Order cancelled - Patient discharged Performed By: #### L 500.2500, L100.0100 ####[facility] [address] [place], [address] MCV Normal 81-99 [facility] Comment on above: Result Comment: Canc elled via OM: Order cancelled - Patient discharged Performed By: #### L 500.2500, L100.0100 ####[facility] [address] [place], [address] NEUT% Normal 47-70 [facility] Comment on above: Result Comment: Canc elled via OM: Order cancelled - Patient discharged Performed By: #### L 500.2500, L100.0100 ####[facility] [address] [place], [address] PLT Normal 150-450 [facility] Comment on above: Result Comment: Canc elled via OM: Order cancelled - Patient discharged Performed By: #### L 500.2500, L100.0100 ####[facility] [address] [place], [address] RBC Normal 4.2-5.4 [facility] Comment on above: Result Comment: Canc elled via OM: Order cancelled - Patient discharged Performed By: #### L 500.2500, L100.0100 ####[facility] [address] [place], [address] RDW CV Normal 11.6-14.6 [facility] Comment on above: Result Comment: Canc elled via OM: Order cancelled - Patient discharged Performed By: #### L 500.2500, L100.0100 ####[facility] [address] [place], [address] RDW SD Normal 35.1-43.9 [facility] Comment on above: Result Comment: Canc elled via OM: Order cancelled - Patient discharged Performed By: #### L 500.2500, L100.0100 ####[facility] [address] [place], [address] WBC Normal 4.4-11.0 [facility] Comment on above: Result Comment: Canc elled via OM: Order cancelled - Patient discharged Performed By: #### L 500.2500, L100.0100 ####[facility] [address] [place], [address] Culture, Blood (WB)on 2023 CUB Blood cultures x2 fr om two different sites No growth in 5 days. Normal [facility] Comment on above: Performed By: #### M 200.1000 ####[facility] [address] [place], [address] Basic Metabolic Profile (BMP )on 05-07-2024 BUN Normal 7-18 [facility] Comment on above: Result Comment: Canc elled via OM: Order cancelled - Patient discharged Performed By: #### L 500.2500, L100.0100 ####[facility] [address] [place], [address] BUN/CRE Normal 10-20 [facility] Comment on above: Result Comment: Canc elled via OM: Order cancelled - Patient discharged Performed By: #### L 500.2500, L100.0100 ####[facility] [address] [place], [address] CA,Total Normal 8.5-10.1 [facility] Comment on above: Result Comment: Canc elled via OM: Order cancelled - Patient discharged Performed By: #### L 500.2500, L100.0100 ####[facility] [address] [place], [address] CL Normal 98-107 [facility] Comment on above: Result Comment: Canc elled via OM: Order cancelled - Patient discharged Performed By: #### L 500.2500, L100.0100 ####[facility] [address] [place], [address] CO2 Normal 21.0-32.0 [facility] Comment on above: Result Comment: Canc elled via OM: Order cancelled - Patient discharged Performed By: #### L 500.2500, L100.0100 ####[facility] [address] [place], [address] CREAT,SERUM Normal 0.55-1.02 [facility] Comment on above: Result Comment: Canc elled via OM: Order cancelled - Patient discharged Performed By: #### L 500.2500, L100.0100 ####[facility] [address] [place], [address] EST GFR Normal >60 [facility] Comment on above: Result Comment: Canc elled via OM: Order cancelled - Patient discharged Performed By: #### L 500.2500, L100.0100 ####[facility] [address] [place], [address] EST GFR - AA Normal >60 [facility] Comment on above: Result Comment: Canc elled via OM: Order cancelled - Patient discharged Performed By: #### L 500.2500, L100.0100 ####[facility] [address] [place], [address] GAP Normal 5-15 [facility] Comment on above: Result Comment: Canc elled via OM: Order cancelled - Patient discharged Performed By: #### L 500.2500, L100.0100 ####[facility] [address] [place], [address] GLU Normal 74-106 [facility] Comment on above: Result Comment: Canc elled via OM: Order cancelled - Patient discharged Performed By: #### L 500.2500, L100.0100 ####[facility] [address] [place], [address] Potassium Normal 3.5-5.1 [facility] Comment on above: Result Comment: Canc elled via OM: Order cancelled - Patient discharged Performed By: #### L 500.2500, L100.0100 ####[facility] [address] [place], [address] Basic Metabolic Profile (BMP) Normal 136-145 [facility] Comment on above: Result Comment: Canc elled via OM: Order cancelled - Patient discharged Performed By: #### L 500.2500, L100.0100 ####[facility] [address] [place], [address] CBC W/Diff, Automatedon 11-0 Absolute Neut Normal 2.0-7.7 [facility] Comment on above: Result Comment: Canc elled via OM: Order cancelled - Patient discharged Performed By: #### L 500.2500, L100.0100 ####[facility] [address] [place], [address] HCT Normal 37-47 [facility] Comment on above: Result Comment: Canc elled via OM: Order cancelled - Patient discharged Performed By: #### L 500.2500, L100.0100 ####[facility] [address] [place], [address] HGB Normal 12.0-15.0 [facility] Comment on above: Result Comment: Canc elled via OM: Order cancelled - Patient discharged Performed By: #### L 500.2500, L100.0100 ####[facility] [address] [place], [address] MCH Normal 27.0-32.0 [facility] Comment on above: Result Comment: Canc elled via OM: Order cancelled - Patient discharged Performed By: #### L 500.2500, L100.0100 ####[facility] [address] [place], [address] MCHC Normal 32-36 [facility] Comment on above: Result Comment: Canc elled via OM: Order cancelled - Patient discharged Performed By: #### L 500.2500, L100.0100 ####[facility] [address] [place], [address] MCV Normal 81-99 [facility] Comment on above: Result Comment: Canc elled via OM: Order cancelled - Patient discharged Performed By: #### L 500.2500, L100.0100 ####[facility] [address] [place], [address] NEUT% Normal 47-70 [facility] Comment on above: Result Comment: Canc elled via OM: Order cancelled - Patient discharged Performed By: #### L 500.2500, L100.0100 ####[facility] [address] [place], [address] PLT Normal 150-450 [facility] Comment on above: Result Comment: Canc elled via OM: Order cancelled - Patient discharged Performed By: #### L 500.2500, L100.0100 ####[facility] [address] [place], [address] RBC Normal 4.2-5.4 [facility] Comment on above: Result Comment: Canc elled via OM: Order cancelled - Patient discharged Performed By: #### L 500.2500, L100.0100 ####[facility] [address] [place], [address] RDW CV Normal 11.6-14.6 [facility] Comment on above: Result Comment: Canc elled via OM: Order cancelled - Patient discharged Performed By: #### L 500.2500, L100.0100 ####[facility] [address] [place], [address] RDW SD Normal 35.1-43.9 [facility] Comment on above: Result Comment: Canc elled via OM: Order cancelled - Patient discharged Performed By: #### L 500.2500, L100.0100 ####[facility] [address] [place], [address] WBC Normal 4.4-11.0 [facility] Comment on above: Result Comment: Canc elled via OM: Order cancelled - Patient discharged Performed By: #### L 500.2500, L100.0100 ####[facility] [address] [place], [address] Basic Metabolic Profile (BMP )on 05-06-2024 BUN Normal 7-18 [facility] Comment on above: Result Comment: Canc elled via OM: Order cancelled - Patient discharged Performed By: #### L 500.2500, L100.0100 ####[facility] [address] [place], [address] BUN/CRE Normal 10-20 [facility] Comment on above: Result Comment: Canc elled via OM: Order cancelled - Patient discharged Performed By: #### L 500.2500, L100.0100 ####[facility] [address] [place], [address] CA,Total Normal 8.5-10.1 [facility] Comment on above: Result Comment: Canc elled via OM: Order cancelled - Patient discharged Performed By: #### L 500.2500, L100.0100 ####[facility] [address] [place], [address] CL Normal 98-107 [facility] Comment on above: Result Comment: Canc elled via OM: Order cancelled - Patient discharged Performed By: #### L 500.2500, L100.0100 ####[facility] [address] [place], [address] CO2 Normal 21.0-32.0 [facility] Comment on above: Result Comment: Canc elled via OM: Order cancelled - Patient discharged Performed By: #### L 500.2500, L100.0100 ####[facility] [address] [place], [address] CREAT,SERUM Normal 0.55-1.02 [facility] Comment on above: Result Comment: Canc elled via OM: Order cancelled - Patient discharged Performed By: #### L 500.2500, L100.0100 ####[facility] [address] [place], [address] EST GFR Normal >60 [facility] Comment on above: Result Comment: Canc elled via OM: Order cancelled - Patient discharged Performed By: #### L 500.2500, L100.0100 ####[facility] [address] [place], [address] EST GFR - AA Normal >60 [facility] Comment on above: Result Comment: Canc elled via OM: Order cancelled - Patient discharged Performed By: #### L 500.2500, L100.0100 ####[facility] [address] [place], [address] GAP Normal 5-15 [facility] Comment on above: Result Comment: Canc elled via OM: Order cancelled - Patient discharged Performed By: #### L 500.2500, L100.0100 ####[facility] [address] [place], [address] GLU Normal 74-106 [facility] Comment on above: Result Comment: Canc elled via OM: Order cancelled - Patient discharged Performed By: #### L 500.2500, L100.0100 ####[facility] [address] [place], [address] Potassium Normal 3.5-5.1 [facility] Comment on above: Result Comment: Canc elled via OM: Order cancelled - Patient discharged Performed By: #### L 500.2500, L100.0100 ####[facility] [address] [place], [address] Basic Metabolic Profile (BMP) Normal 136-145 [facility] Comment on above: Result Comment: Canc elled via OM: Order cancelled - Patient discharged Performed By: #### L 500.2500, L100.0100 ####[facility] [address] [place], [address] CBC W/Diff, Automatedon 10-3 Absolute Neut Normal 2.0-7.7 [facility] Comment on above: Result Comment: Canc elled via OM: Order cancelled - Patient discharged Performed By: #### L 500.2500, L100.0100 ####[facility] [address] [place], [address] HCT Normal 37-47 [facility] Comment on above: Result Comment: Canc elled via OM: Order cancelled - Patient discharged Performed By: #### L 500.2500, L100.0100 ####[facility] [address] [place], [address] HGB Normal 12.0-15.0 [facility] Comment on above: Result Comment: Canc elled via OM: Order cancelled - Patient discharged Performed By: #### L 500.2500, L100.0100 ####[facility] [address] [place], [address] MCH Normal 27.0-32.0 [facility] Comment on above: Result Comment: Canc elled via OM: Order cancelled - Patient discharged Performed By: #### L 500.2500, L100.0100 ####[facility] [address] [place], [address] MCHC Normal 32-36 [facility] Comment on above: Result Comment: Canc elled via OM: Order cancelled - Patient discharged Performed By: #### L 500.2500, L100.0100 ####[facility] [address] [place], [address] MCV Normal 81-99 [facility] Comment on above: Result Comment: Canc elled via OM: Order cancelled - Patient discharged Performed By: #### L 500.2500, L100.0100 ####[facility] [address] [place], [address] NEUT% Normal 47-70 [facility] Comment on above: Result Comment: Canc elled via OM: Order cancelled - Patient discharged Performed By: #### L 500.2500, L100.0100 ####[facility] [address] [place], [address] PLT Normal 150-450 [facility] Comment on above: Result Comment: Canc elled via OM: Order cancelled - Patient discharged Performed By: #### L 500.2500, L100.0100 ####[facility] [address] [place], [address] RBC Normal 4.2-5.4 [facility] Comment on above: Result Comment: Canc elled via OM: Order cancelled - Patient discharged Performed By: #### L 500.2500, L100.0100 ####[facility] [address] [place], [address] RDW CV Normal 11.6-14.6 [facility] Comment on above: Result Comment: Canc elled via OM: Order cancelled - Patient discharged Performed By: #### L 500.2500, L100.0100 ####[facility] [address] [place], [address] RDW SD Normal 35.1-43.9 [facility] Comment on above: Result Comment: Canc elled via OM: Order cancelled - Patient discharged Performed By: #### L 500.2500, L100.0100 ####[facility] [address] [place], [address] WBC Normal 4.4-11.0 [facility] Comment on above: Result Comment: Canc elled via OM: Order cancelled - Patient discharged Performed By: #### L 500.2500, L100.0100 ####[facility] [address] [place], [address] Basic Metabolic Profile (BMP )on 05-05-2024 BUN Normal 7-18 [facility] Comment on above: Result Comment: Canc elled via OM: Order cancelled - Patient discharged Performed By: #### L 100.0100, L500.2500 ####[facility] [address] [place], [address] BUN/CRE Normal 10-20 [facility] Comment on above: Result Comment: Canc elled via OM: Order cancelled - Patient discharged Performed By: #### L 100.0100, L500.2500 ####[facility] [address] [place], [address] CA,Total Normal 8.5-10.1 [facility] Comment on above: Result Comment: Canc elled via OM: Order cancelled - Patient discharged Performed By: #### L 100.0100, L500.2500 ####[facility] [address], [address] CL Normal 98-107 [facility] Comment on above: Result Comment: Canc elled via OM: Order cancelled - Patient discharged Performed By: #### L 100.0100, L500.2500 ####[facility] [address] [place], [address] CO2 Normal 21.0-32.0 [facility] Comment on above: Result Comment: Canc elled via OM: Order cancelled - Patient discharged Performed By: #### L 100.0100, L500.2500 ####[facility] [address] [place], [address] CREAT,SERUM Normal 0.55-1.02 [facility] Comment on above: Result Comment: Canc elled via OM: Order cancelled - Patient discharged Performed By: #### L 100.0100, L500.2500 ####[facility] [address] [place], [address] EST GFR Normal >60 [facility] Comment on above: Result Comment: Canc elled via OM: Order cancelled - Patient discharged Performed By: #### L 100.0100, L500.2500 ####[facility] [address] [place], [address] EST GFR - AA Normal >60 [facility] Comment on above: Result Comment: Canc elled via OM: Order cancelled - Patient discharged Performed By: #### L 100.0100, L500.2500 ####[facility] [address] [place], [address] GAP Normal 5-15 [facility] Comment on above: Result Comment: Canc elled via OM: Order cancelled - Patient discharged Performed By: #### L 100.0100, L500.2500 ####[facility] [address] [place], [address] GLU Normal 74-106 [facility] Comment on above: Result Comment: Canc elled via OM: Order cancelled - Patient discharged Performed By: #### L 100.0100, L500.2500 ####[facility] [address] [place], [address] Potassium Normal 3.5-5.1 [facility] Comment on above: Result Comment: Canc elled via OM: Order cancelled - Patient discharged Performed By: #### L 100.0100, L500.2500 ####[facility] [address] [place], [address] Basic Metabolic Profile (BMP) Normal 136-145 [facility] Comment on above: Result Comment: Canc elled via OM: Order cancelled - Patient discharged Performed By: #### L 100.0100, L500.2500 ####[facility] [address] [place], [address] CBC W/Diff, Automatedon 10-3 0-2023 Absolute Neut Normal 2.0-7.7 [facility] Comment on above: Result Comment: Canc elled via OM: Order cancelled - Patient discharged Performed By: #### L 100.0100, L500.2500 ####[facility] [address] [place], [address] HCT Normal 37-47 [facility] Comment on above: Result Comment: Canc elled via OM: Order cancelled - Patient discharged Performed By: #### L 100.0100, L500.2500 ####[facility] [address] [place], [address] HGB Normal 12.0-15.0 [facility] Comment on above: Result Comment: Canc elled via OM: Order cancelled - Patient discharged Performed By: #### L 100.0100, L500.2500 ####[facility] [address] [place], [address] MCH Normal 27.0-32.0 [facility] Comment on above: Result Comment: Canc elled via OM: Order cancelled - Patient discharged Performed By: #### L 100.0100, L500.2500 ####[facility] [address] [place], [address] MCHC Normal 32-36 [facility] Comment on above: Result Comment: Canc elled via OM: Order cancelled - Patient discharged Performed By: #### L 100.0100, L500.2500 ####[facility] [address] [place], [address] MCV Normal 81-99 [facility] Comment on above: Result Comment: Canc elled via OM: Order cancelled - Patient discharged Performed By: #### L 100.0100, L500.2500 ####[facility] [address] [place], [address] NEUT% Normal 47-70 [facility] Comment on above: Result Comment: Canc elled via OM: Order cancelled - Patient discharged Performed By: #### L 100.0100, L500.2500 ####[facility] [address] [place], [address] PLT Normal 150-450 [facility] Comment on above: Result Comment: Canc elled via OM: Order cancelled - Patient discharged Performed By: #### L 100.0100, L500.2500 ####[facility] [address] [place], [address] RBC Normal 4.2-5.4 [facility] Comment on above: Result Comment: Canc elled via OM: Order cancelled - Patient discharged Performed By: #### L 100.0100, L500.2500 ####[facility] [address] [place], [address] RDW CV Normal 11.6-14.6 [facility] Comment on above: Result Comment: Canc elled via OM: Order cancelled - Patient discharged Performed By: #### L 100.0100, L500.2500 ####[facility] [address] [place], [address] RDW SD Normal 35.1-43.9 [facility] Comment on above: Result Comment: Canc elled via OM: Order cancelled - Patient discharged Performed By: #### L 100.0100, L500.2500 ####[facility] [address] [place], [address] WBC Normal 4.4-11.0 [facility] Comment on above: Result Comment: Canc elled via OM: Order cancelled - Patient discharged Performed By: #### L 100.0100, L500.2500 ####[facility] [address] [place], [address] Basic Metabolic Profile (BMP )on 05-04-2024 BUN/CRE 11.6 RATIO Normal -20 [facility] Comment on above: Performed By: #### L 100.0100, L500.2500 ####[facility] [address] [place], [address] CA,Total 8.6 mg/dL Normal 8.5-10.1 [facility] Comment on above: Performed By: #### L 100.0100, L500.2500 ####[facility] [address] [place], [address] Chloride [Moles/Vol] 115 mmol/L High 98-107 [facility] Comment on above: Performed By: #### L 100.0100, L500.2500 ####[facility] [address] [place], [address] CO2 [Moles/Vol] 20.0 mmol/L Low 21.0-32.0 [facility] Comment on above: Performed By: #### L 100.0100, L500.2500 ####[facility] [address] [place], [address] Creatinine [Mass/Vol] 0.86 mg/dL Normal 0.55-1.02 [facility] Comment on above: Result Comment: The validity of the calculated GFR GFRAA in patients over70 years has not been determined. Clinical correlation isessential. Performed By: #### L 100.0100, L500.2500 ####[facility] [address] [place], [address] ECRCL 56.11 ml/min Normal [facility] Comment on above: Performed By: #### L 100.0100, L500.2500 ####[facility] [address] [place], [address] EST GFR - AA 86 mL/min Normal >60 [facility] Comment on above: Result Comment: Afri can Dominican GFR Calc Performed By: #### L 100.0100, L500.2500 ####[facility] [address] [place], [address] GAP 4 Low 5-15 [facility] Comment on above: Performed By: #### L 100.0100, L500.2500 ####[facility] [address] [place], [address] GFR/1.73 sq M.predicted among non-blacks MDRD (S/P/Bld) [Vol rate/Area] 71 mL/min/{1.73_m2} Normal >60 [facility] Comment on above: Result Comment: Non- GFR Calc Performed By: #### L 100.0100, L500.2500 ####[facility] [address] [place], [address] Glucose [Mass/Vol] 220 mg/dL High 74-106 [facility] Comment on above: Result Comment: Gluc ose result greater than or equal to 200 mg/dLsuggests DIABETES MELLITUS per A.D.A. criteria. Performed By: #### L 100.0100, L500.2500 ####[facility] [address] [place], [address] Potassium [Moles/Vol] 3.7 mmol/L Normal 3.5-5.1 [facility] Comment on above: Performed By: #### L 100.0100, L500.2500 ####[facility] [address] [place], [address] Sodium [Moles/Vol] 139 mmol/L Normal 136-145 [facility] Comment on above: Performed By: #### L 100.0100, L500.2500 ####[facility] [address] [place], [address] Urea nitrogen [Mass/Vol] 10 mg/dL Normal 7-18 [facility] Comment on above: Performed By: #### L 100.0100, L500.2500 ####[facility] [address] [place], [address] Bedside Glucoseon 05-04-2024 FINGERSTICK GLU 176 mg/dL High 74-106 [facility] Comment on above: Result Comment: MARIA D GEMENT OF PATIENT CARE PER NURSING PROTOCOL Performed By: #### L 501.080 ####[facility] [address] [place], [address] FINGERSTICK GLU 225 mg/dL High 74-106 [facility] Comment on above: Result Comment: MARIA D GEMENT OF PATIENT CARE PER NURSING PROTOCOL Performed By: #### L 501.080 ####[facility] [address] [place], [address] CBC W/Diff, Automatedon 10-2 Absolute Lymph 1.94 X10 3/uL Normal 0.83-4.51 [facility] Comment on above: Performed By: #### L 100.0100, L500.2500 ####[facility] [address] [place], [address] Absolute Neut 2.5 X10 3/uL Normal 2.0-7.7 [facility] Comment on above: Performed By: #### L 100.0100, L500.2500 ####[facility] [address] [place], [address] Basophils/100 WBC (Bld) 0.4 % Normal 0-1 [facility] Comment on above: Performed By: #### L 100.0100, L500.2500 ####[facility] [address] [place], [address] Eosinophils/100 WBC (Bld) 1.2 % Normal 0-5 [facility] Comment on above: Performed By: #### L 100.0100, L500.2500 ####[facility] [address] [place], [address] Erythrocyte distribution width (RBC) [Ratio] 13.3 % Normal 11.6-14.6 [facility] Comment on above: Performed By: #### L 100.0100, L500.2500 ####[facility] [address] [place], [address] Hematocrit (Bld) [Volume fraction] 29.8 % Low 37-47 [facility] Comment on above: Performed By: #### L 100.0100, L500.2500 ####[facility] [address] [place], [address] Hemoglobin (Bld) [Mass/Vol] 10.1 g/dL Low 12.0-15.0 [facility] Comment on above: Performed By: #### L 100.0100, L500.2500 ####[facility] [address] [place], [address] IG% 0.200 Normal 0.0-0.9 [facility] Comment on above: Result Comment: IG% - Immature Granulocytes (promyelocytes, myelocytes andmetamyelocytes) > 1% indicates that a LEFT SHIFT is Present. Performed By: #### L 100.0100, L500.2500 ####[facility] [address] [place], [address] Lymphocytes/100 WBC (Bld) 38.9 % Normal 19-41 [facility] Comment on above: Performed By: #### L 100.0100, L500.2500 ####[facility] [address] [place], [address] MCH (RBC) [Entitic mass] 30.1 pg Normal 27.0-32.0 [facility] Comment on above: Performed By: #### L 100.0100, L500.2500 ####[facility] [address] [place], [address] MCHC (RBC) [Mass/Vol] 33.9 g/dL Normal 32-36 [facility] Comment on above: Performed By: #### L 100.0100, L500.2500 ####[facility] [address] [place], [address] MCV (RBC) [Entitic vol] 89.0 fL Normal 81-99 [facility] Comment on above: Performed By: #### L 100.0100, L500.2500 ####[facility] [address] [place], [address] Monocytes/100 WBC (Bld) 8.8 % Normal 0-10 [facility] Comment on above: Performed By: #### L 100.0100, L500.2500 ####[facility] [address] [place], [address] Neutrophils/100 WBC (Bld) 50.5 % Normal 47-70 [facility] Comment on above: Performed By: #### L 100.0100, L500.2500 ####[facility] [address] [place], [address] Nucleated RBC (Bld) [#/Vol] 0 10*3/uL Normal 0-5 [facility] Comment on above: Performed By: #### L 100.0100, L500.2500 ####[facility] [address] [place], [address] Platelet mean volume (Bld) [Entitic vol] 11.1 fL Normal 6.2-12.0 [facility] Comment on above: Performed By: #### L 100.0100, L500.2500 ####[facility] [address] [place], [address] Platelets (Bld) [#/Vol] 187 10*3/uL Normal 150-450 [facility] Comment on above: Performed By: #### L 100.0100, L500.2500 ####[facility] [address] [place], [address] RBC (Bld) [#/Vol] 3.35 10*6/uL Low 4.2-5.4 [facility] Comment on above: Performed By: #### L 100.0100, L500.2500 ####[facility] [address] [place], [address] RDW SD 43.4 fl Normal 35.1-43.9 [facility] Comment on above: Performed By: #### L 100.0100, L500.2500 ####[facility] [address] [place], [address] WBC (Bld) [#/Vol] 5.0 10*3/uL Normal 4.4-11.0 [facility] Comment on above: Performed By: #### L 100.0100, L500.2500 ####[facility] [address] [place], [address] Discharge Instructionon 04-07 Discharge Instruction Normal [facility] Urine Cultureon 05-04-2024 URC Mixed Gram Positive Organisms [place] Count 11,000-25,000 MIXC Mixed contaminants. Submit a new specimen if indicated. Normal [facility] Comment on above: Performed By: #### M 100.2200 ####[facility] [address] [place], [address] Acetone Serumon 05-03-2024 ACETONE SERUM LARGE Abnormal NEG [facility] Comment on above: Order Comment: Comme nts: If not done in the ED Result Comment: CRIT ICAL VALUE CALLED TO [id number]/28/24 0456 Mayito Chao.RESULTS READ BACK BY SAME. Performed By: #### L 501.6900 ####[facility] [address] [place], [address] Basic Metabolic Profile (BMP )on 05-03-2024 BUN Normal 7-18 [facility] Comment on above: Order Comment: Call with results STAT Result Comment: Guille carey via OM: Ordered Performed By: #### L 500.2500 ####[facility] [address] [place], [address] BUN/CRE Normal 10-20 [facility] Comment on above: Order Comment: Call with results STAT Result Comment: Guille carey via OM: Ordered Performed By: #### L 500.2500 ####[facility] [address] [place], [address] CA,Total Normal 8.5-10.1 [facility] Comment on above: Order Comment: Call MD with results STAT Result Comment: Canc elled via OM: MD Ordered Performed By: #### L 500.2500 ####[facility] [address] [place], [address] CL Normal 98-107 [facility] Comment on above: Order Comment: Call MD with results STAT Result Comment: Canc elled via OM: MD Ordered Performed By: #### L 500.2500 ####[facility] [address] [place], [address] CO2 Normal 21.0-32.0 [facility] Comment on above: Order Comment: Call MD with results STAT Result Comment: Canc elled via OM: MD Ordered Performed By: #### L 500.2500 ####[facility] [address] [place], [address] CREAT,SERUM Normal 0.55-1.02 [facility] Comment on above: Order Comment: Call MD with results STAT Result Comment: Canc elled via OM: MD Ordered Performed By: #### L 500.2500 ####[facility] [address] [place], [address] EST GFR Normal >60 [facility] Comment on above: Order Comment: Call MD with results STAT Result Comment: Canc elled via OM: MD Ordered Performed By: #### L 500.2500 ####[facility] [address] [place], [address] EST GFR - AA Normal >60 [facility] Comment on above: Order Comment: Call MD with results STAT Result Comment: Canc elled via OM: MD Ordered Performed By: #### L 500.2500 ####[facility] [address] [place], [address] GAP Normal 5-15 [facility] Comment on above: Order Comment: Call MD with results STAT Result Comment: Canc elled via OM: MD Ordered Performed By: #### L 500.2500 ####[facility] [address] [place], [address] GLU Normal 74-106 [facility] Comment on above: Order Comment: Call MD with results STAT Result Comment: Canc elled via OM: MD Ordered Performed By: #### L 500.2500 ####[facility] [address] [place], [address] Potassium Normal 3.5-5.1 [facility] Comment on above: Order Comment: Call MD with results STAT Result Comment: Canc elled via OM: MD Ordered Performed By: #### L 500.2500 ####[facility] [address] [place], [address] Basic Metabolic Profile (BMP) Normal 136-145 [facility] Comment on above: Order Comment: Call MD with results STAT Result Comment: Canc elled via OM: MD Ordered Performed By: #### L 500.2500 ####[facility] [address] [place], [address] BUN Normal 7-18 [facility] Comment on above: Order Comment: Call MD with results STAT Result Comment: Canc elled via OM: MD Ordered Performed By: #### L 500.2500 ####[facility] [address] [place], [address] BUN/CRE Normal 10-20 [facility] Comment on above: Order Comment: Call MD with results STAT Result Comment: Canc elled via OM: MD Ordered Performed By: #### L 500.2500 ####[facility] [address] [place], [address] CA,Total Normal 8.5-10.1 [facility] Comment on above: Order Comment: Call MD with results STAT Result Comment: Canc elled via OM: MD Ordered Performed By: #### L 500.2500 ####[facility] [address] [place], [address] CL Normal 98-107 [facility] Comment on above: Order Comment: Call MD with results STAT Result Comment: Canc elled via OM: MD Ordered Performed By: #### L 500.2500 ####[facility] [address] [place], [address] CO2 Normal 21.0-32.0 [facility] Comment on above: Order Comment: Call MD with results STAT Result Comment: Canc elled via OM: MD Ordered Performed By: #### L 500.2500 ####[facility] [address] [place], [address] CREAT,SERUM Normal 0.55-1.02 [facility] Comment on above: Order Comment: Call MD with results STAT Result Comment: Canc elled via OM: MD Ordered Performed By: #### L 500.2500 ####[facility] [address] [place], [address] EST GFR Normal >60 [facility] Comment on above: Order Comment: Call MD with results STAT Result Comment: Canc elled via OM: MD Ordered Performed By: #### L 500.2500 ####[facility] [address] [place], [address] EST GFR - AA Normal >60 [facility] Comment on above: Order Comment: Call MD with results STAT Result Comment: Canc elled via OM: MD Ordered Performed By: #### L 500.2500 ####[facility] [address] [place], [address] GAP Normal 5-15 [facility] Comment on above: Order Comment: Call MD with results STAT Result Comment: Canc elled via OM: MD Ordered Performed By: #### L 500.2500 ####[facility] [address] [place], [address] GLU Normal 74-106 [facility] Comment on above: Order Comment: Call MD with results STAT Result Comment: Canc elled via OM: MD Ordered Performed By: #### L 500.2500 ####[facility] [address] [place], [address] Potassium Normal 3.5-5.1 [facility] Comment on above: Order Comment: Call MD with results STAT Result Comment: Canc elled via OM: MD Ordered Performed By: #### L 500.2500 ####[facility] [address] [place], [address] Basic Metabolic Profile (BMP) Normal 136-145 [facility] Comment on above: Order Comment: Call MD with results STAT Result Comment: Canc elled via OM: MD Ordered Performed By: #### L 500.2500 ####[facility] [address] [place], [address] BUN Normal 7-18 [facility] Comment on above: Order Comment: Call MD with results STAT Result Comment: Canc elled via OM: MD Ordered Performed By: #### L 500.2500 ####[facility] [address] [place], [address] BUN/CRE Normal 10-20 [facility] Comment on above: Order Comment: Call MD with results STAT Result Comment: Canc elled via OM: MD Ordered Performed By: #### L 500.2500 ####[facility] [address] [place], [address] CA,Total Normal 8.5-10.1 [facility] Comment on above: Order Comment: Call MD with results STAT Result Comment: Canc elled via OM: MD Ordered Performed By: #### L 500.2500 ####[facility] [address] [place], [address] CL Normal 98-107 [facility] Comment on above: Order Comment: Call MD with results STAT Result Comment: Canc elled via OM: MD Ordered Performed By: #### L 500.2500 ####[facility] [address] [place], [address] CO2 Normal 21.0-32.0 [facility] Comment on above: Order Comment: Call MD with results STAT Result Comment: Canc elled via OM: MD Ordered Performed By: #### L 500.2500 ####[facility] [address] [place], [address] CREAT,SERUM Normal 0.55-1.02 [facility] Comment on above: Order Comment: Call MD with results STAT Result Comment: Canc elled via OM: MD Ordered Performed By: #### L 500.2500 ####[facility] [address] [place], [address] EST GFR Normal >60 [facility] Comment on above: Order Comment: Call MD with results STAT Result Comment: Canc elled via OM: MD Ordered Performed By: #### L 500.2500 ####[facility] [address] [place], [address] EST GFR - AA Normal >60 [facility] Comment on above: Order Comment: Call MD with results STAT Result Comment: Canc elled via OM: MD Ordered Performed By: #### L 500.2500 ####[facility] [address] [place], [address] GAP Normal 5-15 [facility] Comment on above: Order Comment: Call MD with results STAT Result Comment: Canc elled via OM: MD Ordered Performed By: #### L 500.2500 ####[facility] [address] [place], [address] GLU Normal 74-106 [facility] Comment on above: Order Comment: Call MD with results STAT Result Comment: Canc elled via OM: MD Ordered Performed By: #### L 500.2500 ####[facility] [address] [place], [address] Potassium Normal 3.5-5.1 [facility] Comment on above: Order Comment: Call MD with results STAT Result Comment: Canc elled via OM: MD Ordered Performed By: #### L 500.2500 ####[facility] [address], [address] Basic Metabolic Profile (BMP) Normal 136-145 [facility] Comment on above: Order Comment: Call MD with results STAT Result Comment: Canenedina elled via OM: MD Ordered Performed By: #### L 500.2500 ####[facility] [address] [place], [address] BUN/CRE 16.6 RATIO Normal 10-20 [facility] Comment on above: Order Comment: Call MD with results STAT Performed By: #### L 500.2500 ####[facility] [address] [place], [address] CA,Total 8.6 mg/dL Normal 8.5-10.1 [facility] Comment on above: Order Comment: Call MD with results STAT Performed By: #### L 500.2500 ####[facility] [address] [place], [address] Chloride [Moles/Vol] 117 mmol/L High 98-107 [facility] Comment on above: Order Comment: Call MD with results STAT Performed By: #### L 500.2500 ####[facility] [address] [place], [address] CO2 [Moles/Vol] 18.0 mmol/L Low 21.0-32.0 [facility] Comment on above: Order Comment: Call MD with results STAT Performed By: #### L 500.2500 ####[facility] [address] [place], [address] Creatinine [Mass/Vol] 0.90 mg/dL Normal 0.55-1.02 [facility] Comment on above: Order Comment: Call MD with results STAT Result Comment: The validity of the calculated GFR GFRAA in patients over70 years has not been determined. Clinical correlation isessential. Performed By: #### L 500.2500 ####[facility] [address] [place], [address] ECRCL 53.41 ml/min Normal [facility] Comment on above: Order Comment: Call MD with results STAT Performed By: #### L 500.2500 ####[facility] [address] [place], [address] EST GFR - AA 82 mL/min Normal >60 [facility] Comment on above: Order Comment: Call MD with results STAT Result Comment: Afri can Dominican GFR Calc Performed By: #### L 500.2500 ####[facility] [address] [place], [address] GAP 4 Low 5-15 [facility] Comment on above: Order Comment: Call MD with results STAT Performed By: #### L 500.2500 ####[facility] [address] [place], [address] GFR/1.73 sq M.predicted among non-blacks MDRD (S/P/Bld) [Vol rate/Area] 67 mL/min/{1.73_m2} Normal >60 [facility] Comment on above: Order Comment: Call MD with results STAT Result Comment: Non- GFR Calc Performed By: #### L 500.2500 ####[facility] [address] [place], [address] Glucose [Mass/Vol] 119 mg/dL High 74-106 [facility] Comment on above: Order Comment: Call MD with results STAT Result Comment: Fast ing Glucose result from 100 to 125 mg/dLsuggests IMPAIRED HOMEOSTASIS per A.D.A. criteria. Performed By: #### L 500.2500 ####[facility] [address] [place], [address] Potassium [Moles/Vol] 3.3 mmol/L Low 3.5-5.1 [facility] Comment on above: Order Comment: Call MD with results STAT Performed By: #### L 500.2500 ####[facility] [address] [place], [address] Sodium [Moles/Vol] 138 mmol/L Normal 136-145 [facility] Comment on above: Order Comment: Call MD with results STAT Performed By: #### L 500.2500 ####[facility] [address] [place], [address] Urea nitrogen [Mass/Vol] 15 mg/dL Normal 7-18 [facility] Comment on above: Order Comment: Call MD with results STAT Performed By: #### L 500.2500 ####[facility] [address] [place], [address] BUN/CRE 16.1 RATIO Normal 10-20 [facility] Comment on above: Performed By: #### L 500.2500 ####[facility] [address] [place], [address] CA,Total 8.4 mg/dL Low 8.5-10.1 [facility] Comment on above: Performed By: #### L 500.2500 ####[facility] [address] [place], [address] Chloride [Moles/Vol] 114 mmol/L High 98-107 [facility] Comment on above: Performed By: #### L 500.2500 ####[facility] [address] [place], [address] CO2 [Moles/Vol] 17.0 mmol/L Low 21.0-32.0 [facility] Comment on above: Performed By: #### L 500.2500 ####[facility] [address] [place], [address] Creatinine [Mass/Vol] 0.99 mg/dL Normal 0.55-1.02 [facility] Comment on above: Result Comment: The validity of the calculated GFR GFRAA in patients over70 years has not been determined. Clinical correlation isessential. Performed By: #### L 500.2500 ####[facility] [address] [place], [address] ECRCL 48.55 ml/min Normal [facility] Comment on above: Performed By: #### L 500.2500 ####[facility] [address] [place], [address] EST GFR - AA 73 mL/min Normal >60 [facility] Comment on above: Result Comment: Afri can Dominican GFR Calc Performed By: #### L 500.2500 ####[facility] [address] [place], [address] GAP 9 Normal 5-15 [facility] Comment on above: Performed By: #### L 500.2500 ####[facility] [address] [place], [address] GFR/1.73 sq M.predicted among non-blacks MDRD (S/P/Bld) [Vol rate/Area] 60 mL/min/{1.73_m2} Normal >60 [facility] Comment on above: Result Comment: Non- GFR Calc Performed By: #### L 500.2500 ####[facility] [address] [place], [address] Glucose [Mass/Vol] 190 mg/dL High 74-106 [facility] Comment on above: Result Comment: Fast ing Glucose result greater than or equal to 126 mg/dLsuggests DIABETES MELLITUS per A.D.A. criteria. Performed By: #### L 500.2500 ####[facility] [address] [place], [address] Potassium [Moles/Vol] 3.5 mmol/L Normal 3.5-5.1 [facility] Comment on above: Performed By: #### L 500.2500 ####[facility] [address] [place], [address] Sodium [Moles/Vol] 140 mmol/L Normal 136-145 [facility] Comment on above: Performed By: #### L 500.2500 ####[facility] [address] [place], [address] Urea nitrogen [Mass/Vol] 16 mg/dL Normal 7-18 [facility] Comment on above: Performed By: #### L 500.2500 ####[facility] [address] [place], [address] BUN/CRE 18.8 RATIO Normal 10-20 [facility] Comment on above: Order Comment: Comme nts: SPECIMEN #3'TROP' Serial specimen #1, #2 or #3: Alex RICH with results STAT Performed By: #### L 501.2300, L100.0100, L500.2500, L501.4020, L501.9520 ####[facility] [address] [place], [address] CA,Total 8.5 mg/dL Normal 8.5-10.1 [facility] Comment on above: Order Comment: Comme nts: SPECIMEN #3'TROP' Serial specimen #1, #2 or #3: Alex RICH with results STAT Performed By: #### L 501.2300, L100.0100, L500.2500, L501.4020, L501.9520 ####[facility] [address] [place], [address] Chloride [Moles/Vol] 114 mmol/L High 98-107 [facility] Comment on above: Order Comment: Comme nts: SPECIMEN #3'TROP' Serial specimen #1, #2 or #3: Alex RICH with results STAT Performed By: #### L 501.2300, L100.0100, L500.2500, L501.4020, L501.9520 ####[facility] [address] [place], [address] CO2 [Moles/Vol] 12.0 mmol/L Low 21.0-32.0 [facility] Comment on above: Order Comment: Comme nts: SPECIMEN #3'TROP' Serial specimen #1, #2 or #3: Alex RICH with results STAT Performed By: #### L 501.2300, L100.0100, L500.2500, L501.4020, L501.9520 ####[facility] [address] [place], [address] Creatinine [Mass/Vol] 1.01 mg/dL Normal 0.55-1.02 [facility] Comment on above: Order Comment: Comme nts: SPECIMEN #3'TROP' Serial specimen #1, #2 or #3: Alex RICH with results STAT Result Comment: The validity of the calculated GFR GFRAA in patients over70 years has not been determined. Clinical correlation isessential. Performed By: #### L 501.2300, L100.0100, L500.2500, L501.4020, L501.9520 ####[facility] [address] [place], [address] ECRCL 47.59 ml/min Normal [facility] Comment on above: Order Comment: Comme nts: SPECIMEN #3'TROP' Serial specimen #1, #2 or #3: Alex RICH with results STAT Performed By: #### L 501.2300, L100.0100, L500.2500, L501.4020, L501.9520 ####[facility] [address] [place], [address] EST GFR - AA 71 mL/min Normal >60 [facility] Comment on above: Order Comment: Comme nts: SPECIMEN #3'TROP' Serial specimen #1, #2 or #3: Alex RICH with results STAT Result Comment: Afri can Dominican GFR Calc Performed By: #### L 501.2300, L100.0100, L500.2500, L501.4020, L501.9520 ####[facility] [address] [place], [address] GAP 12 Normal 5-15 [facility] Comment on above: Order Comment: Comme nts: SPECIMEN #3'TROP' Serial specimen #1, #2 or #3: Alex RICH with results STAT Performed By: #### L 501.2300, L100.0100, L500.2500, L501.4020, L501.9520 ####[facility] [address] [place], [address] GFR/1.73 sq M.predicted among non-blacks MDRD (S/P/Bld) [Vol rate/Area] 59 mL/min/{1.73_m2} Low >60 [facility] Comment on above: Order Comment: Comme nts: SPECIMEN #3'TROP' Serial specimen #1, #2 or #3: Alex RICH with results STAT Result Comment: Non- GFR Calc Performed By: #### L 501.2300, L100.0100, L500.2500, L501.4020, L501.9520 ####[facility] [address] [place], [address] Glucose [Mass/Vol] 241 mg/dL High 74-106 [facility] Comment on above: Order Comment: Comme nts: SPECIMEN #3'TROP' Serial specimen #1, #2 or #3: Alex RICH with results STAT Result Comment: Gluc ose result greater than or equal to 200 mg/dLsuggests DIABETES MELLITUS per A.D.A. criteria. Performed By: #### L 501.2300, L100.0100, L500.2500, L501.4020, L501.9520 ####[facility] [address] [place], [address] Potassium [Moles/Vol] 3.8 mmol/L Normal 3.5-5.1 [facility] Comment on above: Order Comment: Comme nts: SPECIMEN #3'TROP' Serial specimen #1, #2 or #3: Alex RICH with results STAT Performed By: #### L 501.2300, L100.0100, L500.2500, L501.4020, L501.9520 ####[facility] [address] [place], [address] Sodium [Moles/Vol] 137 mmol/L Normal 136-145 [facility] Comment on above: Order Comment: Comme nts: SPECIMEN #3'TROP' Serial specimen #1, #2 or #3: Alex RICH with results STAT Performed By: #### L 501.2300, L100.0100, L500.2500, L501.4020, L501.9520 ####[facility] [address] [place], [address] Urea nitrogen [Mass/Vol] 19 mg/dL High 7-18 [facility] Comment on above: Order Comment: Comme nts: SPECIMEN #3'TROP' Serial specimen #1, #2 or #3: Alex RICH with results STAT Performed By: #### L 501.2300, L100.0100, L500.2500, L501.4020, L501.9520 ####[facility] [address] [place], [address] BUN Normal 7-18 [facility] Comment on above: Result Comment: Canc elled via OM: Duplicate Order Performed By: #### L 500.2500 ####[facility] [address] [place], [address] BUN/CRE Normal 10-20 [facility] Comment on above: Result Comment: Canc elled via OM: Duplicate Order Performed By: #### L 500.2500 ####[facility] [address] [place], [address] CA,Total Normal 8.5-10.1 [facility] Comment on above: Result Comment: Canc elled via OM: Duplicate Order Performed By: #### L 500.2500 ####[facility] [address] [place], [address] CL Normal 98-107 [facility] Comment on above: Result Comment: Canc elled via OM: Duplicate Order Performed By: #### L 500.2500 ####[facility] [address] [place], [address] CO2 Normal 21.0-32.0 [facility] Comment on above: Result Comment: Canc elled via OM: Duplicate Order Performed By: #### L 500.2500 ####[facility] [address] [place], [address] CREAT,SERUM Normal 0.55-1.02 [facility] Comment on above: Result Comment: Canc elled via OM: Duplicate Order Performed By: #### L 500.2500 ####[facility] [address] [place], [address] EST GFR Normal >60 [facility] Comment on above: Result Comment: Canc elled via OM: Duplicate Order Performed By: #### L 500.2500 ####[facility] [address] [place], [address] EST GFR - AA Normal >60 [facility] Comment on above: Result Comment: Canc elled via OM: Duplicate Order Performed By: #### L 500.2500 ####[facility] [address] [place], [address] GAP Normal 5-15 [facility] Comment on above: Result Comment: Canc elled via OM: Duplicate Order Performed By: #### L 500.2500 ####[facility] [address] [place], [address] GLU Normal 74-106 [facility] Comment on above: Result Comment: Canc elled via OM: Duplicate Order Performed By: #### L 500.2500 ####[facility] [address] [place], [address] Potassium Normal 3.5-5.1 [facility] Comment on above: Result Comment: Canc elled via OM: Duplicate Order Performed By: #### L 500.2500 ####[facility] [address] [place], [address] Basic Metabolic Profile (BMP) Normal 136-145 [facility] Comment on above: Result Comment: Canc elled via OM: Duplicate Order Performed By: #### L 500.2500 ####[facility] [address] [place], [address] BUN/CRE 18.8 RATIO Normal 10-20 [facility] Comment on above: Order Comment: Comme nts: SPECIMEN #2'TROP' Serial specimen #1, #2 or #3: 2Cmeir RICH with results STAT Performed By: #### L 500.2500, L501.4020 ####[facility] [address] [place], [address] CA,Total 9.2 mg/dL Normal 8.5-10.1 [facility] Comment on above: Order Comment: Comme nts: SPECIMEN #2'TROP' Serial specimen #1, #2 or #3: Mejia RICH with results STAT Performed By: #### L 500.2500, L501.4020 ####[facility] [address] [place], [address] Chloride [Moles/Vol] 106 mmol/L Normal 98-107 [facility] Comment on above: Order Comment: Comme nts: SPECIMEN #2'TROP' Serial specimen #1, #2 or #3: Mejia RICH with results STAT Performed By: #### L 500.2500, L501.4020 ####[facility] [address] [place], [address] CO2 [Moles/Vol] 9.0 mmol/L Invalid Interpretation Code 21.0-32.0 [facility] Comment on above: Order Comment: Comme nts: SPECIMEN #2'TROP' Serial specimen #1, #2 or #3: Mejia RICH with results STAT Result Comment: Crit ical Result(s) Called at: 00:31:10 05/03/2024 by: Elena. HARISH Dennis RN ICU. Results read back by same. Performed By: #### L 500.2500, L501.4020 ####[facility] [address] [place], [address] Creatinine [Mass/Vol] 1.17 mg/dL High 0.55-1.02 [facility] Comment on above: Order Comment: Comme nts: SPECIMEN #2'TROP' Serial specimen #1, #2 or #3: Mejia RICH with results STAT Result Comment: The validity of the calculated GFR GFRAA in patients over70 years has not been determined. Clinical correlation isessential. Performed By: #### L 500.2500, L501.4020 ####[facility] [address] [place], [address] ECRCL 41.08 ml/min Normal [facility] Comment on above: Order Comment: Comme nts: SPECIMEN #2'TROP' Serial specimen #1, #2 or #3: Mejia RICH with results STAT Performed By: #### L 500.2500, L501.4020 ####[facility] [address] [place], [address] EST GFR - AA 60 mL/min Normal >60 [facility] Comment on above: Order Comment: Comme nts: SPECIMEN #2'TROP' Serial specimen #1, #2 or #3: Mejia RICH with results STAT Result Comment: Afri can Dominican GFR Calc Performed By: #### L 500.2500, L501.4020 ####[facility] [address] [place], [address] GAP 21 High 5-15 [facility] Comment on above: Order Comment: Comme nts: SPECIMEN #2'TROP' Serial specimen #1, #2 or #3: Mejia RICH with results STAT Performed By: #### L 500.2500, L501.4020 ####[facility] [address] [place], [address] GFR/1.73 sq M.predicted among non-blacks MDRD (S/P/Bld) [Vol rate/Area] 50 mL/min/{1.73_m2} Low >60 [facility] Comment on above: Order Comment: Comme nts: SPECIMEN #2'TROP' Serial specimen #1, #2 or #3: Mejia RICH with results STAT Result Comment: Non- GFR Calc Performed By: #### L 500.2500, L501.4020 ####[facility] [address] [place], [address] Glucose [Mass/Vol] 419 mg/dL High 74-106 [facility] Comment on above: Order Comment: Comme nts: SPECIMEN #2'TROP' Serial specimen #1, #2 or #3: Mejia RICH with results STAT Result Comment: Gluc ose result greater than or equal to 200 mg/dLsuggests DIABETES MELLITUS per A.D.A. criteria. Performed By: #### L 500.2500, L501.4020 ####[facility] [address] [place], [address] Potassium [Moles/Vol] 4.2 mmol/L Normal 3.5-5.1 [facility] Comment on above: Order Comment: Comme nts: SPECIMEN #2'TROP' Serial specimen #1, #2 or #3: Mejia RICH with results STAT Performed By: #### L 500.2500, L501.4020 ####[facility] [address] [place], [address] Sodium [Moles/Vol] 136 mmol/L Normal 136-145 [facility] Comment on above: Order Comment: Comme nts: SPECIMEN #2'TROP' Serial specimen #1, #2 or #3: Mejia RICH with results STAT Performed By: #### L 500.2500, L501.4020 ####[facility] [address] [place], [address] Urea nitrogen [Mass/Vol] 22 mg/dL High 7-18 [facility] Comment on above: Order Comment: Comme nts: SPECIMEN #2'TROP' Serial specimen #1, #2 or #3: 2Call MD with results STAT Performed By: #### L 500.2500, L501.4020 ####[facility] [address] [place], [address] Bedside Glucoseon 05-03-2024 FINGERSTICK GLU 293 mg/dL High 74-106 [facility] Comment on above: Result Comment: MARIA D GEMENT OF PATIENT CARE PER NURSING PROTOCOL Performed By: #### L 501.080 ####[facility] [address], [address] FINGERSTICK GLU 154 mg/dL High 74-106 [facility] Comment on above: Result Comment: MARIA D GEMENT OF PATIENT CARE PER NURSING PROTOCOL Performed By: #### L 501.080 ####[facility] [address], [address] FINGERSTICK GLU 114 mg/dL High 74-106 [facility] Comment on above: Result Comment: MARIA D GEMENT OF PATIENT CARE PER NURSING PROTOCOL Performed By: #### L 501.080 ####[facility] [address] [place], [address] FINGERSTICK GLU 114 mg/dL High 74-106 [facility] Comment on above: Result Comment: MARIA D GEMENT OF PATIENT CARE PER NURSING PROTOCOL Performed By: #### L 501.080 ####[facility] [address], [address] FINGERSTICK GLU 108 mg/dL High 74-106 [facility] Comment on above: Result Comment: MARIA D GEMENT OF PATIENT CARE PER NURSING PROTOCOL Performed By: #### L 501.080 ####[facility] [address] [place], [address] FINGERSTICK GLU 121 mg/dL High 74-106 [facility] Comment on above: Result Comment: MARIA D GEMENT OF PATIENT CARE PER NURSING PROTOCOL Performed By: #### L 501.080 ####[facility] [address] [place], [address] FINGERSTICK GLU 183 mg/dL High 74-106 [facility] Comment on above: Result Comment: MARIA D GEMENT OF PATIENT CARE PER NURSING PROTOCOL Performed By: #### L 501.080 ####[facility] [address] [place], [address] FINGERSTICK GLU 196 mg/dL High 74-106 [facility] Comment on above: Result Comment: MARIA D GEMENT OF PATIENT CARE PER NURSING PROTOCOL Performed By: #### L 501.080 ####[facility] [address] [place], [address] FINGERSTICK GLU 212 mg/dL High -106 [facility] Comment on above: Result Comment: MARIA D GEMENT OF PATIENT CARE PER NURSING PROTOCOL Performed By: #### L 501.080 ####[facility] [address] [place], [address] FINGERSTICK GLU 211 mg/dL High -106 [facility] Comment on above: Result Comment: MARIA D GEMENT OF PATIENT CARE PER NURSING PROTOCOL Performed By: #### L 501.080 ####[facility] [address] [place], [address] FINGERSTICK GLU 244 mg/dL High 74-106 [facility] Comment on above: Result Comment: MARIA D GEMENT OF PATIENT CARE PER NURSING PROTOCOL Performed By: #### L 501.080 ####[facility] [address] [place], [address] FINGERSTICK GLU 218 mg/dL High 74-106 [facility] Comment on above: Result Comment: MARIA D GEMENT OF PATIENT CARE PER NURSING PROTOCOL Performed By: #### L 501.080 ####[facility] [address] [place], [address] FINGERSTICK GLU 277 mg/dL High 74-106 [facility] Comment on above: Result Comment: MARIA D GEMENT OF PATIENT CARE PER NURSING PROTOCOL Performed By: #### L 501.080 ####[facility] [address] [place], [address] FINGERSTICK GLU 333 mg/dL High 74-106 [facility] Comment on above: Result Comment: MARIA D GEMENT OF PATIENT CARE PER NURSING PROTOCOL Performed By: #### L 501.080 ####[facility] [address] [place], [address] Blood Gases by [facility] 10-28-2 024 SHAWNA TEST Positive Normal [facility] Comment on above: Performed By: #### L 9000.0800 ####[facility] [address] [place], [address] Base excess Calc (Bld) [Moles/Vol] -19 mmol/L Low -2 to +2 [facility] Comment on above: Performed By: #### L 9000.0800 ####[facility] [address] [place], [address] Blood Gas Type ART Normal [facility] Comment on above: Performed By: #### L 9000.0800 ####[facility] [address] [place], [address] CO2 [Moles/Vol] 10 mmol/L Normal [facility] Comment on above: Performed By: #### L 9000.0800 ####[facility] [address] [place], [address] HCO3 (Bld) [Moles/Vol] 8.9 mmol/L Low 22-26 [facility] Comment on above: Performed By: #### L 9000.0800 ####[facility] [address] [place], [address] Mode Not entered Normal [facility] Comment on above: Performed By: #### L 9000.0800 ####[facility] [address] [place], [address] O2 Delivery Dev Room Air Normal [facility] Comment on above: Performed By: #### L 9000.0800 ####[facility] [address] [place], [address] pCO2 22.5 mmHg Low 35-45 [facility] Comment on above: Performed By: #### L 9000.0800 ####[facility] [address] [place], [address] pH (Bld) 7.20 [pH] Low 7.35-7.45 [facility] Comment on above: Performed By: #### L 9000.0800 ####[facility] [address] [place], [address] PO2 103 mmHG High 75-100 [facility] Comment on above: Performed By: #### L 9000.0800 ####[facility] [address] [place], [address] Read Back By Yes Normal [facility] Comment on above: Performed By: #### L 9000.0800 ####[facility] [address] [place], [address] smith [facility] Comment on above: Performed By: #### L 9000.0800 ####[facility] [address] [place], [address] SITE R Radial Normal [facility] Comment on above: Performed By: #### L 9000.0800 ####[facility] [address] [place], [address] SO2 97 Normal 95-99 [facility] Comment on above: Performed By: #### L 9000.0800 ####[facility] [address] [place], [address] Time Given 21:30:27 Normal [facility] Comment on above: Performed By: #### L 9000.0800 ####[facility] [address] [place], [address] SHAWNA TEST Positive Normal [facility] Comment on above: Performed By: #### L 9000.0800 ####[facility] [address] [place], [address] Base excess Calc (Bld) [Moles/Vol] -22 mmol/L Low -2 to +2 [facility] Comment on above: Performed By: #### L 9000.0800 ####[facility] [address] [place], [address] Blood Gas Type ART Normal [facility] Comment on above: Performed By: #### L 9000.0800 ####[facility] [address] [place], [address] CO2 [Moles/Vol] 8 mmol/L [facility] Comment on above: Performed By: #### L 9000.0800 ####[facility] [address] [place], [address] HCO3 (Bld) [Moles/Vol] 6.9 mmol/L Low 22-26 [facility] Comment on above: Performed By: #### L 9000.0800 ####[facility] [address] [place], [address] Mode Not entered [facility] Comment on above: Performed By: #### L 9000.0800 ####[facility] [address] [place], [address] O2 Delivery Dev Room Air [facility] Comment on above: Performed By: #### L 9000.0800 ####[facility] [address] [place], [address] pCO2 20.7 mmHg Low 35-45 [facility] Comment on above: Performed By: #### L 9000.0800 ####[facility] [address] [place], [address] pH (Bld) 7.13 [pH] Invalid Interpretation Code 7.35-7.45 [facility] Comment on above: Performed By: #### L 9000.0800 ####[facility] [address] [place], [address] PO2 95 mmHG Normal 75-100 [facility] Comment on above: Performed By: #### L 9000.0800 ####[facility] [address] [place], [address] Read Back By Yes [facility] Comment on above: Performed By: #### L 9000.0800 ####[facility] [address] [place], [address] Fernández [facility] Comment on above: Performed By: #### L 9000.0800 ####[facility] [address] [place], [address] SITE L Radial Normal [facility] Comment on above: Performed By: #### L 9000.0800 ####[facility] [address] [place], [address] SO2 95 Normal 95-99 [facility] Comment on above: Performed By: #### L 9000.0800 ####[facility] [address] [place], [address] Time Given 00:38:43 [facility] Comment on above: Performed By: #### L 9000.0800 ####[facility] [address] [place], [address] CBC W/Diff, Automatedon 10-2 Absolute Lymph 2.67 X10 3/uL Normal 0.83-4.51 [facility] Comment on above: Performed By: #### L 501.2300, L100.0100, L500.2500, L501.4020, L501.9520 ####[facility] [address] [place], [address] Absolute Neut 5.5 X10 3/uL Normal 2.0-7.7 [facility] Comment on above: Performed By: #### L 501.2300, L100.0100, L500.2500, L501.4020, L501.9520 ####[facility] [address] [place], [address] Basophils/100 WBC (Bld) 0.4 % Normal 0-1 [facility] Comment on above: Performed By: #### L 501.2300, L100.0100, L500.2500, L501.4020, L501.9520 ####[facility] [address] [place], [address] Eosinophils/100 WBC (Bld) 0.2 % Normal 0-5 [facility] Comment on above: Performed By: #### L 501.2300, L100.0100, L500.2500, L501.4020, L501.9520 ####[facility] [address] [place], [address] Erythrocyte distribution width (RBC) [Ratio] 13.0 % Normal 11.6-14.6 [facility] Comment on above: Performed By: #### L 501.2300, L100.0100, L500.2500, L501.4020, L501.9520 ####[facility] [address] [place], [address] Hematocrit (Bld) [Volume fraction] 30.3 % Low 37-47 [facility] Comment on above: Performed By: #### L 501.2300, L100.0100, L500.2500, L501.4020, L501.9520 ####[facility] [address] [place], [address] Hemoglobin (Bld) [Mass/Vol] 10.0 g/dL Low 12.0-15.0 [facility] Comment on above: Performed By: #### L 501.2300, L100.0100, L500.2500, L501.4020, L501.9520 ####[facility] [address] [place], [address] IG% 0.600 Normal 0.0-0.9 [facility] Comment on above: Result Comment: IG% - Immature Granulocytes (promyelocytes, myelocytes andmetamyelocytes) > 1% indicates that a LEFT SHIFT is Present. Performed By: #### L 501.2300, L100.0100, L500.2500, L501.4020, L501.9520 ####[facility] [address] [place], [address] Lymphocytes/100 WBC (Bld) 29.5 % Normal 19-41 [facility] Comment on above: Performed By: #### L 501.2300, L100.0100, L500.2500, L501.4020, L501.9520 ####[facility] [address] [place], [address] MCH (RBC) [Entitic mass] 29.9 pg Normal 27.0-32.0 [facility] Comment on above: Performed By: #### L 501.2300, L100.0100, L500.2500, L501.4020, L501.9520 ####[facility] [address] [place], [address] MCHC (RBC) [Mass/Vol] 33.0 g/dL Normal 32-36 [facility] Comment on above: Performed By: #### L 501.2300, L100.0100, L500.2500, L501.4020, L501.9520 ####[facility] [address] [place], [address] MCV (RBC) [Entitic vol] 90.7 fL Normal 81-99 [facility] Comment on above: Performed By: #### L 501.2300, L100.0100, L500.2500, L501.4020, L501.9520 ####[facility] [address] [place], [address] Monocytes/100 WBC (Bld) 8.6 % Normal 0-10 [facility] Comment on above: Performed By: #### L 501.2300, L100.0100, L500.2500, L501.4020, L501.9520 ####[facility] [address] [place], [address] Neutrophils/100 WBC (Bld) 60.7 % Normal 47-70 [facility] Comment on above: Performed By: #### L 501.2300, L100.0100, L500.2500, L501.4020, L501.9520 ####[facility] [address] [place], [address] Nucleated RBC (Bld) [#/Vol] 0 10*3/uL Normal 0-5 [facility] Comment on above: Performed By: #### L 501.2300, L100.0100, L500.2500, L501.4020, L501.9520 ####[facility] [address] [place], [address] Platelet mean volume (Bld) [Entitic vol] 11.9 fL Normal 6.2-12.0 [facility] Comment on above: Performed By: #### L 501.2300, L100.0100, L500.2500, L501.4020, L501.9520 ####[facility] [address] [place], [address] Platelets (Bld) [#/Vol] 224 10*3/uL Normal 150-450 [facility] Comment on above: Performed By: #### L 501.2300, L100.0100, L500.2500, L501.4020, L501.9520 ####[facility] [address] [place], [address] RBC (Bld) [#/Vol] 3.34 10*6/uL Low 4.2-5.4 [facility] Comment on above: Performed By: #### L 501.2300, L100.0100, L500.2500, L501.4020, L501.9520 ####[facility] [address] [place], [address] RDW SD 42.6 fl Normal 35.1-43.9 [facility] Comment on above: Performed By: #### L 501.2300, L100.0100, L500.2500, L501.4020, L501.9520 ####[facility] [address] [place], [address] WBC (Bld) [#/Vol] 9.1 10*3/uL Normal 4.4-11.0 [facility] Comment on above: Performed By: #### L 501.2300, L100.0100, L500.2500, L501.4020, L501.9520 ####[facility] [address] [place], [address] Hemoglobin A1con 05-03-2024 HbA1c (Bld) [Mass fraction] 13.7 % High 3.8-5.6 [facility] Comment on above: Result Comment: Norm al < 5.7 % Prediabetic 5.7 - 6.4 % Diabetic >or= 6.5 % Please note range changes. Performed By: #### L 500.2500, L505.5000, L501.9985 ####[facility] [address] [place], [address] L501.4020on 05-03-2024 TROPONIN-I HS 9 pg/mL Normal 3.0-54.0 [facility] Comment on above: Order Comment: Comme nts: SPECIMEN #3'TROP' Serial specimen #1, #2 or #3: 3Cmeir RICH with results STAT Result Comment: Plea se Note: New Test Units and Gender Specific Reference Ranges. For more information see Policy Stat Procedure [place] High Sensitivity Troponin (TNIH) and attachments. Performed By: #### L 501.2300, L100.0100, L500.2500, L501.4020, L501.9520 ####[facility] [address] [place], [address] TROPONIN-I HS 8 pg/mL Normal 3.0-54.0 [facility] Comment on above: Order Comment: Comme nts: SPECIMEN #2'TROP' Serial specimen #1, #2 or #3: Mejia RICH with results STAT Result Comment: Plea se Note: New Test Units and Gender Specific Reference Ranges. For more information see Policy Stat Procedure [place] High Sensitivity Troponin (TNIH) and attachments. Performed By: #### L 500.2500, L501.4020 ####[facility] [address] [place], [address] Phosphoruson 05-03-2024 Phosphate [Mass/Vol] 2.1 mg/dL Low 2.5-4.9 [facility] Comment on above: Order Comment: Comme nts: SPECIMEN #3'TROP' Serial specimen #1, #2 or #3: Alex RICH with results STAT Performed By: #### L 501.2300, L100.0100, L500.2500, L501.4020, L501.9520 ####[facility] [address] [place], [address] Thyroid Stim Hormone (TSH)on 05-03-2024 TSH 0.332 uIU/mL Low 0.358-3.740 [facility] Comment on above: Order Comment: Comme nts: SPECIMEN #3'TROP' Serial specimen #1, #2 or #3: Alex RICH with results STAT Performed By: #### L 501.2300, L100.0100, L500.2500, L501.4020, L501.9520 ####[facility] [address] [facility] [address] Urine Drug Screen (VISTA)on 05-03-2024 AMPHETAMINES Negative Normal <1000 ng/mL [facility] Comment on above: Order Comment: U Performed By: #### L 505.5000 ####[facility] [address] [place] [address] BARBITIURATES Negative Normal < 200 ng/mL [facility] Comment on above: Order Comment: U Performed By: #### L 505.5000 ####[facility] [address] [place] [address] BENZODIAZIPINE Negative Normal < 200 ng/mL [facility] Comment on above: Order Comment: U Performed By: #### L 505.5000 ####[facility] [address] [place] [address] COCAINE Negative Normal < 300 ng/mL [facility] Comment on above: Order Comment: U Performed By: #### L 505.5000 ####[facility] [address] [place] [address] ECSTACY Negative Normal < 500 ng/mL [facility] Comment on above: Order Comment: U Performed By: #### L 505.5000 ####[facility] [address] [place] [address] METHADONE Negative Normal < 300 ng/mL [facility] Comment on above: Order Comment: U Performed By: #### L 505.5000 ####[facility] [address] [place] [id number] OPIATES Positive Abnormal < 300 ng/mL [facility] Comment on above: Order Comment: U Performed By: #### L 505.5000 ####[facility] [address] [place], [place], [address] PCP Negative Normal < 25 ng/mL [facility] Comment on above: Order Comment: U Performed By: #### L 505.5000 ####[facility] [address] [place], [address] THC Negative Normal < 50 ng/mL [facility] Comment on above: Order Comment: U Performed By: #### L 505.5000 ####[facility] [address] [place], [address] VISTA UDS PH 5 Normal [facility] Comment on above: Order Comment: U Performed By: #### L 505.5000 ####[facility] [address] [place] [address] Venous Blood Gason 4 Blood Gas Type LIZY Normal [facility] Comment on above: Performed By: #### L 9000.0810 ####[facility] [address] [place], [address] CO2 [Moles/Vol] 17 mmol/L Low 23-33 [facility] Comment on above: Performed By: #### L 9000.0810 ####[facility] [address] [place], [address] FI02 21.0 Normal [facility] Comment on above: Performed By: #### L 9000.0810 ####[facility] [address] [place], [address] HCO3 (Bld) [Moles/Vol] 15 mmol/L Low 22-26 [facility] Comment on above: Performed By: #### L 9000.0810 ####[facility] [address] [place], [address] O2 Delivery Dev Not entered Normal [facility] Comment on above: Performed By: #### L 9000.0810 ####[facility] [address] [place], [address] SITE Not entered Normal [facility] Comment on above: Performed By: #### L 9000.0810 ####[facility] [address] [place], [address] VBG BE -12 mmol/L Low -1.0-3.5 [facility] Comment on above: Performed By: #### L 9000.0810 ####[facility] [address] [place], [address] VBG pCO2 38.2 mmHg Low 41-51 [facility] Comment on above: Performed By: #### L 9000.0810 ####[facility] [address] [place], [address] VBG pH 7.21 Low 7.32-7.42 [facility] Comment on above: Performed By: #### L 9000.0810 ####[facility] [address] [place], [address] VBG PO2 71 mmHg High 25-40 [facility] Comment on above: Performed By: #### L 9000.0810 ####[facility] [address] [place], [address] VBG SO2 90 High 50-70 [facility] Comment on above: Performed By: #### L 9000.0810 ####[facility] [address] [place], [address] 12 Lead EKGon 05-02-2024 12 Lead EKG Normal [facility] Acetone Serumon 05-02-2024 ACETONE SERUM LARGE Abnormal NEG [facility] Comment on above: Performed By: #### L 501.6900 ####[facility] [address] [place], [address] Alcohol, Blood (Medical)-Ser umon 05-02-2024 SERUM ETOH < 3.0 Normal [facility] Comment on above: Result Comment: The serum:whole blood ethanol ratio is approximately 1.14and varies slightly with hematocrit.Medical Alcohol reference interval and critical value innon-tolerant individuals; 50 - 100 Impairment 100 Intoxication 100 - 250 Severe Poisoning 250 - 400 Deep/possible fatal coma Performed By: #### L 501.9100 ####[facility] [address] [place], [address] Basic Metabolic Profile (BMP )on 05-02-2024 BUN Normal 7-18 [facility] Comment on above: Order Comment: Call MD with results STAT Result Comment: [employer], [place] TO CANCEL BY [employer] Performed By: #### L 500.2500, L505.5000, L501.9985 ####[facility] [address] [place], [address] BUN/CRE Normal 10-20 [facility] Comment on above: Order Comment: Call MD with results STAT Result Comment: [employer] OK TO CANCEL BY [employer] Performed By: #### L 500.2500, L505.5000, L501.9985 ####[facility] [address] [place], [address] CA,Total Normal 8.5-10.1 [facility] Comment on above: Order Comment: Call with results STAT Result Comment: IFTIKHARL VIRALTE OK TO CANCEL BY [employer]UNE [employer]ER Performed By: #### L 500.2500, L505.5000, L501.9985 ####[facility] [address] [place], [address] CL Normal 98-107 [facility] Comment on above: Order Comment: Call with results STAT Result Comment: [employer] OK TO CANCEL BY [employer]E [employer]ER Performed By: #### L 500.2500, L505.5000, L501.9985 ####[facility] [address] [place], [address] CO2 Normal 21.0-32.0 [facility] Comment on above: Order Comment: Call MD with results STAT Result Comment: IFTIKHARL VIRALTE, OK TO CANCEL BY JUNE [employer]ER Performed By: #### L 500.2500, L505.5000, L501.9985 ####[facility] [address] [place], [address] CREAT,SERUM Normal 0.55-1.02 [facility] Comment on above: Order Comment: Call MD with results STAT Result Comment: IFTIKHARL VIRALTE, OK TO CANCEL BY [employer]E [employer]ER Performed By: #### L 500.2500, L505.5000, L501.9985 ####[facility] [address] [place], [address] EST GFR Normal >60 [facility] Comment on above: Order Comment: Call MD with results STAT Result Comment: IFTIKHARL VIRALTE, OK TO CANCEL BY [employer]E [employer] Performed By: #### L 500.2500, L505.5000, L501.9985 ####[facility] [address] [place], [address] EST GFR - AA Normal >60 [facility] Comment on above: Order Comment: Call with results STAT Result Comment: IFTIKHARL VIRALTE, OK TO CANCEL BY JUNE [employer]ER Performed By: #### L 500.2500, L505.5000, L501.9985 ####[facility] [address] [place], [address] GAP Normal 5-15 [facility] Comment on above: Order Comment: Call MD with results STAT Result Comment: DUPL VIRALTE, OK TO CANCEL BY JUNE [employer]ER Performed By: #### L 500.2500, L505.5000, L501.9985 ####[facility] [address] [place], [address] GLU Normal 74-106 [facility] Comment on above: Order Comment: Call MD with results STAT Result Comment: YANICK LAUGHLIN TO CANCEL BY [employer]E [employer] Performed By: #### L 500.2500, L505.5000, L501.9985 ####[facility] [address] [place], [address] Potassium Normal 3.5-5.1 [facility] Comment on above: Order Comment: Call MD with results STAT Result Comment: YANICK LAUGHLIN TO CANCEL BY [employer]UNE [employer] Performed By: #### L 500.2500, L505.5000, L501.9985 ####[facility] [address] [place], [address] Basic Metabolic Profile (BMP) Normal 136-145 [facility] Comment on above: Order Comment: Call with results STAT Result Comment: YANICK LAUGHLIN TO CANCEL BY [employer]E [employer] Performed By: #### L 500.2500, L505.5000, L501.9985 ####[facility] [address] [place], [address] BUN Normal 7-18 [facility] Comment on above: Result Comment: Canc elled via OM: Duplicate Order Performed By: #### L 500.2500 ####[facility] [address] [place], [address] BUN/CRE Normal 10-20 [facility] Comment on above: Result Comment: Canc elled via OM: Duplicate Order Performed By: #### L 500.2500 ####[facility] [address] [place], [address] CA,Total Normal 8.5-10.1 [facility] Comment on above: Result Comment: Canc elled via OM: Duplicate Order Performed By: #### L 500.2500 ####[facility] [address] [place], [address] CL Normal 98-107 [facility] Comment on above: Result Comment: Canc elled via OM: Duplicate Order Performed By: #### L 500.2500 ####[facility] [address] [place], [address] CO2 Normal 21.0-32.0 [facility] Comment on above: Result Comment: Canc elled via OM: Duplicate Order Performed By: #### L 500.2500 ####[facility] [address] [place], [address] CREAT,SERUM Normal 0.55-1.02 [facility] Comment on above: Result Comment: Canc elled via OM: Duplicate Order Performed By: #### L 500.2500 ####[facility] [address] [place], [address] EST GFR Normal >60 [facility] Comment on above: Result Comment: Canc elled via OM: Duplicate Order Performed By: #### L 500.2500 ####[facility] [address] [place], [address] EST GFR - AA Normal >60 [facility] Comment on above: Result Comment: Canc elled via OM: Duplicate Order Performed By: #### L 500.2500 ####[facility] [address] [place], [address] GAP Normal 5-15 [facility] Comment on above: Result Comment: Canc elled via OM: Duplicate Order Performed By: #### L 500.2500 ####[facility] [address] [place], [address] GLU Normal 74-106 [facility] Comment on above: Result Comment: Canc elled via OM: Duplicate Order Performed By: #### L 500.2500 ####[facility] [address] [place], [address] Potassium Normal 3.5-5.1 [facility] Comment on above: Result Comment: Canc elled via OM: Duplicate Order Performed By: #### L 500.2500 ####[facility] [address] [place], [address] Basic Metabolic Profile (BMP) Normal 136-145 [facility] Comment on above: Result Comment: Canc elled via OM: Duplicate Order Performed By: #### L 500.2500 ####[facility] [address] [place], [address] Bedside Glucoseon 05-02-2024 FINGERSTICK GLU 392 mg/dL High 74-106 [facility] Comment on above: Result Comment: MARIA D SERRANO OF PATIENT CARE PER NURSING PROTOCOL Performed By: #### L 501.080 ####[facility] [address] [place], [address] Blood Gases by CPSon 024 BE Normal -2 to +2 [facility] Comment on above: Result Comment: resu lts in already Performed By: #### L 9000.0800 ####[facility] [address] [place], [address] HCO3 Normal 22-26 [facility] Comment on above: Result Comment: resu lts in already Performed By: #### L 9000.0800 ####[facility] [address] [place], [address] pCO2 Normal 35-45 [facility] Comment on above: Result Comment: resu lts in already Performed By: #### L 9000.0800 ####[facility] [address] [place], [address] pH Normal 7.35-7.45 [facility] Comment on above: Result Comment: resu lts in already Performed By: #### L 9000.0800 ####[facility] [address] [place], [address] PO2 Normal 75-100 [facility] Comment on above: Result Comment: resu lts in already Performed By: #### L 9000.0800 ####[facility] [address] [place], [address] SO2 Normal 95-99 [facility] Comment on above: Result Comment: resu lts in already Performed By: #### L 9000.0800 ####[facility] [address] [place], [address] TOTAL CO2 Normal [facility] Comment on above: Result Comment: resu lts in already Performed By: #### L 9000.0800 ####[facility] [address] [place], [address] CBC W/Diff, Automatedon 10-2 Absolute Lymph 1.55 X10 3/uL Normal 0.83-4.51 [facility] Comment on above: Performed By: #### L 501.2450, L300.8000, L100.0100, L501.4020, L500.4050 ####[facility] [address] [place], [address] Absolute Neut 6.1 X10 3/uL Normal 2.0-7.7 [facility] Comment on above: Performed By: #### L 501.2450, L300.8000, L100.0100, L501.4020, L500.4050 ####[facility] [address] [place], [address] Basophils/100 WBC (Bld) 0.5 % Normal 0-1 [facility] Comment on above: Performed By: #### L 501.2450, L300.8000, L100.0100, L501.4020, L500.4050 ####[facility] [address] [place], [address] Eosinophils/100 WBC (Bld) 0.5 % Normal 0-5 [facility] Comment on above: Performed By: #### L 501.2450, L300.8000, L100.0100, L501.4020, L500.4050 ####[facility] [address] [place], [address] Erythrocyte distribution width (RBC) [Ratio] 12.8 % Normal 11.6-14.6 [facility] Comment on above: Performed By: #### L 501.2450, L300.8000, L100.0100, L501.4020, L500.4050 ####[facility] [address] [place], [address] Hematocrit (Bld) [Volume fraction] 38.0 % Normal 37-47 [facility] Comment on above: Performed By: #### L 501.2450, L300.8000, L100.0100, L501.4020, L500.4050 ####[facility] [address] [place], [address] Hemoglobin (Bld) [Mass/Vol] 12.4 g/dL Normal 12.0-15.0 [facility] Comment on above: Performed By: #### L 501.2450, L300.8000, L100.0100, L501.4020, L500.4050 ####[facility] [address] [place], [address] IG% 0.500 Normal 0.0-0.9 [facility] Comment on above: Result Comment: IG% - Immature Granulocytes (promyelocytes, myelocytes andmetamyelocytes) > 1% indicates that a LEFT SHIFT is Present. Performed By: #### L 501.2450, L300.8000, L100.0100, L501.4020, L500.4050 ####[facility] [address] [place], [address] Lymphocytes/100 WBC (Bld) 18.9 % Low 19-41 [facility] Comment on above: Performed By: #### L 501.2450, L300.8000, L100.0100, L501.4020, L500.4050 ####[facility] [address] [place], [address] MCH (RBC) [Entitic mass] 29.6 pg Normal 27.0-32.0 [facility] Comment on above: Performed By: #### L 501.2450, L300.8000, L100.0100, L501.4020, L500.4050 ####[facility] [address] [place], [address] MCHC (RBC) [Mass/Vol] 32.6 g/dL Normal 32-36 [facility] Comment on above: Performed By: #### L 501.2450, L300.8000, L100.0100, L501.4020, L500.4050 ####[facility] [address] [place], [address] MCV (RBC) [Entitic vol] 90.7 fL Normal 81-99 [facility] Comment on above: Performed By: #### L 501.2450, L300.8000, L100.0100, L501.4020, L500.4050 ####[facility] [address] [place], [address] Monocytes/100 WBC (Bld) 5.5 % Normal 0-10 [facility] Comment on above: Performed By: #### L 501.2450, L300.8000, L100.0100, L501.4020, L500.4050 ####[facility] [address] [place], [address] Neutrophils/100 WBC (Bld) 74.1 % High 47-70 [facility] Comment on above: Performed By: #### L 501.2450, L300.8000, L100.0100, L501.4020, L500.4050 ####[facility] [address] [place], [address] Nucleated RBC (Bld) [#/Vol] 0 10*3/uL Normal 0-5 [facility] Comment on above: Performed By: #### L 501.2450, L300.8000, L100.0100, L501.4020, L500.4050 ####[facility] [address] [place], [address] Platelet mean volume (Bld) [Entitic vol] 11.7 fL Normal 6.2-12.0 [facility] Comment on above: Performed By: #### L 501.2450, L300.8000, L100.0100, L501.4020, L500.4050 ####[facility] [address] [place], [address] Platelets (Bld) [#/Vol] 288 10*3/uL Normal 150-450 [facility] Comment on above: Performed By: #### L 501.2450, L300.8000, L100.0100, L501.4020, L500.4050 ####[facility] [address] [place], [address] RBC (Bld) [#/Vol] 4.19 10*6/uL Low 4.2-5.4 [facility] Comment on above: Performed By: #### L 501.2450, L300.8000, L100.0100, L501.4020, L500.4050 ####[facility] [address] [place], [address] RDW SD 42.3 fl Normal 35.1-43.9 [facility] Comment on above: Performed By: #### L 501.2450, L300.8000, L100.0100, L501.4020, L500.4050 ####[facility] [address] [place], [address] WBC (Bld) [#/Vol] 8.2 10*3/uL Normal 4.4-11.0 [facility] Comment on above: Performed By: #### L 501.2450, L300.8000, L100.0100, L501.4020, L500.4050 ####[facility] [address] [place], [address] Chest PA and Lateralon 05-02 Chest PA and Lateral Normal [facility] Comprehensive Metabolic Prof ilon 05-02-2024 Albumin [Mass/Vol] 4.3 g/dL Normal 3.2-5.0 [facility] Comment on above: Order Comment: 'TROP ' Serial specimen #1, #2 or #3: 1 Performed By: #### L 501.2450, L300.8000, L100.0100, L501.4020, L500.4050 ####[facility] [address] [place], [address] Albumin/Globulin [Mass ratio] 1.1 {ratio} Normal 0.9-2.4 [facility] Comment on above: Order Comment: 'TROP ' Serial specimen #1, #2 or #3: 1 Performed By: #### L 501.2450, L300.8000, L100.0100, L501.4020, L500.4050 ####[facility] [address] [place], [address] ALK P 112 U/L Normal 45-117 [facility] Comment on above: Order Comment: 'TROP ' Serial specimen #1, #2 or #3: 1 Performed By: #### L 501.2450, L300.8000, L100.0100, L501.4020, L500.4050 ####[facility] [address] [place], [address] ALT [Catalytic activity/Vol] 15 U/L Normal 13-56 [facility] Comment on above: Order Comment: 'TROP ' Serial specimen #1, #2 or #3: 1 Performed By: #### L 501.2450, L300.8000, L100.0100, L501.4020, L500.4050 ####[facility] [address] [place], [address] AST [Catalytic activity/Vol] 7 U/L Low 15-37 [facility] Comment on above: Order Comment: 'TROP ' Serial specimen #1, #2 or #3: 1 Performed By: #### L 501.2450, L300.8000, L100.0100, L501.4020, L500.4050 ####[facility] [address] [place], [address] Bilirubin [Mass/Vol] 0.50 mg/dL Normal 0.20-1.00 [facility] Comment on above: Order Comment: 'TROP ' Serial specimen #1, #2 or #3: 1 Result Comment: For patients on eltrombopag therapy, use of Dimension [place] TBIL is not recommended. Performed By: #### L 501.2450, L300.8000, L100.0100, L501.4020, L500.4050 ####[facility] [address] [place], [address] BUN/CRE 16.5 RATIO Normal 10-20 [facility] Comment on above: Order Comment: 'TROP ' Serial specimen #1, #2 or #3: 1 Performed By: #### L 501.2450, L300.8000, L100.0100, L501.4020, L500.4050 ####[facility] [address] [place], [address] CA,Total 10.1 mg/dL Normal 8.5-10.1 [facility] Comment on above: Order Comment: 'TROP ' Serial specimen #1, #2 or #3: 1 Performed By: #### L 501.2450, L300.8000, L100.0100, L501.4020, L500.4050 ####[facility] [address] [place], [address] Chloride [Moles/Vol] 101 mmol/L Normal 98-107 [facility] Comment on above: Order Comment: 'TROP ' Serial specimen #1, #2 or #3: 1 Performed By: #### L 501.2450, L300.8000, L100.0100, L501.4020, L500.4050 ####[facility] [address] [place], [address] CO2 [Moles/Vol] 10.0 mmol/L Low 21.0-32.0 [facility] Comment on above: Order Comment: 'TROP ' Serial specimen #1, #2 or #3: 1 Performed By: #### L 501.2450, L300.8000, L100.0100, L501.4020, L500.4050 ####[facility] [address] [place], [address] Creatinine [Mass/Vol] 1.33 mg/dL High 0.55-1.02 [facility] Comment on above: Order Comment: 'TROP ' Serial specimen #1, #2 or #3: 1 Result Comment: The validity of the calculated GFR GFRAA in patients over70 years has not been determined. Clinical correlation isessential. Performed By: #### L 501.2450, L300.8000, L100.0100, L501.4020, L500.4050 ####[facility] [address] [place], [address] ECRCL 36.00 ml/min Normal [facility] Comment on above: Order Comment: 'TROP ' Serial specimen #1, #2 or #3: 1 Performed By: #### L 501.2450, L300.8000, L100.0100, L501.4020, L500.4050 ####[facility] [address] [place], [address] EST GFR - AA 52 mL/min Low >60 [facility] Comment on above: Order Comment: 'TROP ' Serial specimen #1, #2 or #3: 1 Result Comment: Afri can Dominican GFR Calc Performed By: #### L 501.2450, L300.8000, L100.0100, L501.4020, L500.4050 ####[facility] [address] [place], [address] GAP 21 High 5-15 [facility] Comment on above: Order Comment: 'TROP ' Serial specimen #1, #2 or #3: 1 Performed By: #### L 501.2450, L300.8000, L100.0100, L501.4020, L500.4050 ####[facility] [address] [place], [address] GFR/1.73 sq M.predicted among non-blacks MDRD (S/P/Bld) [Vol rate/Area] 43 mL/min/{1.73_m2} Low >60 [facility] Comment on above: Order Comment: 'TROP ' Serial specimen #1, #2 or #3: 1 Result Comment: Non- GFR Calc Performed By: #### L 501.2450, L300.8000, L100.0100, L501.4020, L500.4050 ####[facility] [address] [place], [address] Globulin (S) [Mass/Vol] 4.0 g/dL Normal 2.2-4.2 [facility] Comment on above: Order Comment: 'TROP ' Serial specimen #1, #2 or #3: 1 Performed By: #### L 501.2450, L300.8000, L100.0100, L501.4020, L500.4050 ####[facility] [address] [place], [address] Glucose [Mass/Vol] 437 mg/dL High 74-106 [facility] Comment on above: Order Comment: 'TROP ' Serial specimen #1, #2 or #3: 1 Result Comment: Gluc ose result greater than or equal to 200 mg/dLsuggests DIABETES MELLITUS per A.D.A. criteria. Performed By: #### L 501.2450, L300.8000, L100.0100, L501.4020, L500.4050 ####[facility] [address] [place], [address] Potassium [Moles/Vol] 3.8 mmol/L Normal 3.5-5.1 [facility] Comment on above: Order Comment: 'TROP ' Serial specimen #1, #2 or #3: 1 Performed By: #### L 501.2450, L300.8000, L100.0100, L501.4020, L500.4050 ####[facility] [address] [place], [address] Sodium [Moles/Vol] 132 mmol/L Low 136-145 [facility] Comment on above: Order Comment: 'TROP ' Serial specimen #1, #2 or #3: 1 Performed By: #### L 501.2450, L300.8000, L100.0100, L501.4020, L500.4050 ####[facility] [address] [place], [address] T PROT 8.3 g/dL High 6.4-8.2 [facility] Comment on above: Order Comment: 'TROP ' Serial specimen #1, #2 or #3: 1 Performed By: #### L 501.2450, L300.8000, L100.0100, L501.4020, L500.4050 ####[facility] [address] [place], [address] Urea nitrogen [Mass/Vol] 22 mg/dL High 7-18 [facility] Comment on above: Order Comment: 'TROP ' Serial specimen #1, #2 or #3: 1 Performed By: #### L 501.2450, L300.8000, L100.0100, L501.4020, L500.4050 ####[facility] [address] [place], [address] D-Dimer Quantitative (DVT/PE )on 05-02-2024 D-DIMER QUANT 0.37 FEU/ug/m Normal 0.27-0.49 [facility] Comment on above: Result Comment: NORM AL D-Dimer level (<0.50) indicates no DVT or PE. Performed By: #### L 501.2450, L300.8000, L100.0100, L501.4020, L500.4050 ####[facility] [address] [place], [address] Emergency Department Summary on 05-02-2024 Emergency Department Summary Normal [facility] H AND P Exam - Hospitaliston 05-02-2024 H&P Exam - Hospitalist Normal [facility] L501.4020on 05-02-2024 TROPONIN-I HS 5 pg/mL Normal 3.0-54.0 [facility] Comment on above: Order Comment: 'TROP ' Serial specimen #1, #2 or #3: 1 Result Comment: Plea se Note: New Test Units and Gender Specific Reference Ranges. For more information see Policy Stat Procedure [place] High Sensitivity Troponin (TNIH) and attachments. Performed By: #### L 501.2450, L300.8000, L100.0100, L501.4020, L500.4050 ####[facility] [address] [place], [address] Lactic Acidon 05-02-2024 Lactate [Moles/Vol] 0.9 mmol/L Normal 0.4-1.9 [facility] Comment on above: Order Comment: Y Performed By: #### L 503.6005 ####[facility] [address] [place], [address] Lipaseon 05-02-2024 Lipase [Catalytic activity/Vol] 41 U/L Normal 13-75 [facility] Comment on above: Order Comment: 'TROP ' Serial specimen #1, #2 or #3: 1 Result Comment: Plea se note:LIPASE revised reference range effective 22.New Lipase methodology. Expected to produce lower valuesthan the previous assay method.NEW Reference Range: 13 - 75 U/L Performed By: #### L 501.2450, L300.8000, L100.0100, L501.4020, L500.4050 ####[facility] [address] [place], [address] Magnesiumon 05-02-2024 Magnesium [Mass/Vol] 2.2 mg/dL Normal 1.6-2.6 [facility] Comment on above: Performed By: #### L 501.5200 ####[facility] [address] [place], [address] Osmolality, Serumon 05-02-20 24 OSMOLALITY,SER 334 mOsm/KG High 280-301 [facility] Comment on above: Order Comment: Comme nts: Add to ER Lab draw Performed By: #### L 501.7300 ####[facility] [address] [place], [address] Urinalysis, Completeon 05-02 BACTERIA 1+ /hpf Normal None Seen [facility] Comment on above: Order Comment: CLEAN CATCH Performed By: #### L 400.0001 ####[facility] [address] [place], [address] CAST,FINE GRAN 0-5 SEEN Normal 0-5 [facility] Comment on above: Order Comment: CLEAN CATCH Performed By: #### L 400.0001 ####[facility] [address] [place], [address] CAST,HYALINE 0-5 SEEN Normal 0-5 [facility] Comment on above: Order Comment: CLEAN CATCH Performed By: #### L 400.0001 ####[facility] [address] [place], [address] EPI,SQUAMOUS 5-10 SEEN Normal 5-10 [facility] Comment on above: Order Comment: CLEAN CATCH Performed By: #### L 400.0001 ####[facility] [address] [facility] [address] WBC 25-50 SEEN Normal 0-5 [facility] Comment on above: Order Comment: CLEAN CATCH Performed By: #### L 400.0001 ####[facility] [address] [facility] [address] KETONE UR 150 mg/dl Abnormal Negative [facility] Comment on above: Order Comment: CLEAN CATCH Result Comment: CRIT ICAL VALUE *HCRITICAL VALUE CALLED TO APOLONIA [id number] Bruce Alexandra.RESULTS READ BACK BY SAME. Performed By: #### L 400.0001 ####[facility] [address] [place] [address] BILIRUBIN URINE Negative Normal Negative [facility] Comment on above: Order Comment: CLEAN CATCH Performed By: #### L 400.0001 ####[facility] [address] [place] [address] Clarity (U) Clear Normal Clear [facility] Comment on above: Order Comment: CLEAN CATCH Performed By: #### L 400.0001 ####[facility] [address] [place] [address] Color (U) Straw Normal Yellow [facility] Comment on above: Order Comment: CLEAN CATCH Performed By: #### L 400.0001 ####[facility] [address] [place] [id number] GLUCOSE, UR 1000 mg/dl Abnormal Normal [facility] Comment on above: Order Comment: CLEAN CATCH Performed By: #### L 400.0001 ####[facility] [address] [facility] [address] LEUK ESTERASE 100 /ul Abnormal Negative [facility] Comment on above: Order Comment: CLEAN CATCH Performed By: #### L 400.0001 ####[facility] [address] [place], [address] Nitrite Ql (U) Negative Normal Negative [facility] Comment on above: Order Comment: CLEAN CATCH Performed By: #### L 400.0001 ####[facility] [address] [place], [address] OCCULT BLOOD-UR 10 /ul Abnormal Negative [facility] Comment on above: Order Comment: CLEAN CATCH Performed By: #### L 400.0001 ####[facility] [address] [place], [address] pH UR 5.0 Normal 5.0 - 8.0 [facility] Comment on above: Order Comment: CLEAN CATCH Performed By: #### L 400.0001 ####[facility] [address] [place], [address] PROT DIPSTX 100 mg/dl Abnormal Negative [facility] Comment on above: Order Comment: CLEAN CATCH Performed By: #### L 400.0001 ####[facility] [address] [place], [address] SP.GR. DIPSTX 1.025 Normal 1.002-1.030 [facility] Comment on above: Order Comment: CLEAN CATCH Performed By: #### L 400.0001 ####[facility] [address] [place], [address] UROBILI Normal Normal Normal [facility] Comment on above: Order Comment: CLEAN CATCH Performed By: #### L 400.0001 ####[facility] [address] [place], [address] Mucus Ql (Urine sed) 0 SEEN Normal [facility] Comment on above: Order Comment: CLEAN CATCH Performed By: #### L 400.0001 ####[facility] [address] [place], [address] RBC 0 SEEN Normal 0-5 [facility] Comment on above: Order Comment: CLEAN CATCH Performed By: #### L 400.0001 ####[facility] [address] [place] [address] Urine Drug Screen (VISTA)on 05-02-2024 DRUG CONFIRM Normal [facility] Comment on above: Result Comment: NOT [...] Performed By: #### L 500.2500, L505.5000, L501.9985 ####[facility] [address] [place] [address] AMPHETAMINES Normal <1000 ng/mL [facility] Comment on above: Result Comment: NOT ENOUGH URINE Performed By: #### L 500.2500, L505.5000, L501.9985 ####[facility] [address] [place] [address] BARBITIURATES Normal < 200 ng/mL [facility] Comment on above: Result Comment: NOT ENOUGH URINE Performed By: #### L 500.2500, L505.5000, L501.9985 ####[facility] [address] [place] [address] BENZODIAZIPINE Normal < 200 ng/mL [facility] Comment on above: Result Comment: NOT ENOUGH URINE Performed By: #### L 500.2500, L505.5000, L501.9985 ####[facility] [address] [place] [id number] COCAINE Normal < 300 ng/mL [facility] Comment on above: Result Comment: NOT ENOUGH URINE Performed By: #### L 500.2500, L505.5000, L501.9985 ####[facility] [address] [place], [address] ECSTACY Normal < 500 ng/mL [facility] Comment on above: Result Comment: NOT ENOUGH URINE Performed By: #### L 500.2500, L505.5000, L501.9985 ####[facility] [address] [place], [address] METHADONE Normal < 300 ng/mL [facility] Comment on above: Result Comment: NOT ENOUGH URINE Performed By: #### L 500.2500, L505.5000, L501.9985 ####[facility] [address] [place], [address] OPIATES Normal < 300 ng/mL [facility] Comment on above: Result Comment: NOT ENOUGH URINE Performed By: #### L 500.2500, L505.5000, L501.9985 ####[facility] [address] [place], [address] PCP Normal < 25 ng/mL [facility] Comment on above: Result Comment: NOT ENOUGH URINE Performed By: #### L 500.2500, L505.5000, L501.9985 ####[facility] [address] [place], [address] THC Normal < 50 ng/mL [facility] Comment on above: Result Comment: NOT ENOUGH URINE Performed By: #### L 500.2500, L505.5000, L501.9985 ####[facility] [address] [place], [address] VISTA UDS PH Normal [facility] Comment on above: Result Comment: NOT ENOUGH URINE Performed By: #### L 500.2500, L505.5000, L501.9985 ####[facility] [address] [place], [address] Basic Metabolic Profile (BMP )on 03-05-2024 BUN/CRE 4.9 RATIO Low 10-20 [facility] Comment on above: Performed By: #### L 500.2500, L501.2300 ####[facility] [address] [place], [address] CA,Total 8.9 mg/dL Normal 8.5-10.1 [facility] Comment on above: Performed By: #### L 500.2500, L501.2300 ####[facility] [address] [place], [address] Chloride [Moles/Vol] 106 mmol/L Normal 98-107 [facility] Comment on above: Performed By: #### L 500.2500, L501.2300 ####[facility] [address] [place], [address] CO2 [Moles/Vol] 31.0 mmol/L Normal 21.0-32.0 [facility] Comment on above: Performed By: #### L 500.2500, L501.2300 ####[facility] [address] [place], [address] Creatinine [Mass/Vol] 0.61 mg/dL Normal 0.55-1.02 [facility] Comment on above: Result Comment: The validity of the calculated GFR GFRAA in patients over70 years has not been determined. Clinical correlation isessential. Performed By: #### L 500.2500, L501.2300 ####[facility] [address] [place], [address] ECRCL 80.12 ml/min Normal [facility] Comment on above: Performed By: #### L 500.2500, L501.2300 ####[facility] [address] [place], [address] EST GFR - AA 127 mL/min Normal >60 [facility] Comment on above: Result Comment: Afri can Dominican GFR Calc Performed By: #### L 500.2500, L501.2300 ####[facility] [address] [place], [address] GAP 4 Low 5-15 [facility] Comment on above: Performed By: #### L 500.2500, L501.2300 ####[facility] [address] [place], [address] GFR/1.73 sq M.predicted among non-blacks MDRD (S/P/Bld) [Vol rate/Area] 105 mL/min/{1.73_m2} Normal >60 [facility] Comment on above: Result Comment: Non- GFR Calc Performed By: #### L 500.2500, L501.2300 ####[facility] [address] [place], [address] Glucose [Mass/Vol] 147 mg/dL High 74-106 [facility] Comment on above: Result Comment: Fast ing Glucose result greater than or equal to 126 mg/dLsuggests DIABETES MELLITUS per A.D.A. criteria. Performed By: #### L 500.2500, L501.2300 ####[facility] [address] [place], [address] Potassium [Moles/Vol] 2.7 mmol/L Invalid Interpretation Code 3.5-5.1 [facility] Comment on above: Result Comment: Crit ical Result(s) Called at: 07:24:22 03/05/2024 by: Marifer Arellano RN ([facility]). Results read back by same. Performed By: #### L 500.2500, L501.2300 ####[facility] [address] [place], [address] Sodium [Moles/Vol] 141 mmol/L Normal 136-145 [facility] Comment on above: Performed By: #### L 500.2500, L501.2300 ####[facility] [address] [place], [address] Urea nitrogen [Mass/Vol] 3 mg/dL Low 7-18 [facility] Comment on above: Performed By: #### L 500.2500, L501.2300 ####[facility] [address] [place], [address] Bedside Glucoseon 03-05-2024 FINGERSTICK GLU 220 mg/dL High 74-106 [facility] Comment on above: Result Comment: MARIA D GEMENT OF PATIENT CARE PER NURSING PROTOCOL Performed By: #### L 501.080 ####[facility] [address] [place], [address] FINGERSTICK GLU 132 mg/dL High 74-106 [facility] Comment on above: Result Comment: MARIA D GEMENT OF PATIENT CARE PER NURSING PROTOCOL Performed By: #### L 501.080 ####[facility] [address] [place], [address] FINGERSTICK GLU 113 mg/dL High 74-106 [facility] Comment on above: Result Comment: MARIA D GEMENT OF PATIENT CARE PER NURSING PROTOCOL Performed By: #### L 501.080 ####[facility] [address] [place], [address] Discharge Instructionon 08-3 Discharge Instruction Normal [facility] Phosphoruson 03-05-2024 Phosphate [Mass/Vol] 2.8 mg/dL Normal 2.5-4.9 [facility] Comment on above: Performed By: #### L 500.2500, L501.2300 ####[facility] [address] [place], [address] Basic Metabolic Profile (BMP )on 03-04-2024 BUN/CRE 5.9 RATIO Low 10-20 [facility] Comment on above: Performed By: #### L 500.2500 ####[facility] [address] [place], [address] CA,Total 8.9 mg/dL Normal 8.5-10.1 [facility] Comment on above: Performed By: #### L 500.2500 ####[facility] [address] [place], [address] Chloride [Moles/Vol] 110 mmol/L High 98-107 [facility] Comment on above: Performed By: #### L 500.2500 ####[facility] [address] [place], [address] CO2 [Moles/Vol] 28.0 mmol/L Normal 21.0-32.0 [facility] Comment on above: Performed By: #### L 500.2500 ####[facility] [address] [place], [address] Creatinine [Mass/Vol] 0.68 mg/dL Normal 0.55-1.02 [facility] Comment on above: Result Comment: The validity of the calculated GFR GFRAA in patients over70 years has not been determined. Clinical correlation isessential. Performed By: #### L 500.2500 ####[facility] [address] [place], [address] ECRCL 71.87 ml/min Normal [facility] Comment on above: Performed By: #### L 500.2500 ####[facility] [address] [place], [address] EST GFR - AA 113 mL/min Normal >60 [facility] Comment on above: Result Comment: Afri can Dominican GFR Calc Performed By: #### L 500.2500 ####[facility] [address] [place], [address] GAP 3 Low 5-15 [facility] Comment on above: Performed By: #### L 500.2500 ####[facility] [address] [place], [address] GFR/1.73 sq M.predicted among non-blacks MDRD (S/P/Bld) [Vol rate/Area] 93 mL/min/{1.73_m2} Normal >60 [facility] Comment on above: Result Comment: Non- GFR Calc Performed By: #### L 500.2500 ####[facility] [address] [place], [address] Glucose [Mass/Vol] 163 mg/dL High 74-106 [facility] Comment on above: Result Comment: Fast ing Glucose result greater than or equal to 126 mg/dLsuggests DIABETES MELLITUS per A.D.A. criteria. Performed By: #### L 500.2500 ####[facility] [address] [place], [address] Potassium [Moles/Vol] 3.0 mmol/L Low 3.5-5.1 [facility] Comment on above: Performed By: #### L 500.2500 ####[facility] [address] [place], [address] Sodium [Moles/Vol] 141 mmol/L Normal 136-145 [facility] Comment on above: Performed By: #### L 500.2500 ####[facility] [address] [place], [address] Urea nitrogen [Mass/Vol] 4 mg/dL Low 7-18 [facility] Comment on above: Performed By: #### L 500.2500 ####[facility] [address] [place], [address] BUN/CRE 8.7 RATIO Low 10-20 [facility] Comment on above: Performed By: #### L 500.2500 ####[facility] [address] [place], [address] CA,Total 8.9 mg/dL Normal 8.5-10.1 [facility] Comment on above: Performed By: #### L 500.2500 ####[facility] [address] [place], [address] Chloride [Moles/Vol] 110 mmol/L High 98-107 [facility] Comment on above: Performed By: #### L 500.2500 ####[facility] [address] [place], [address] CO2 [Moles/Vol] 27.0 mmol/L Normal 21.0-32.0 [facility] Comment on above: Performed By: #### L 500.2500 ####[facility] [address] [place], [address] Creatinine [Mass/Vol] 0.57 mg/dL Normal 0.55-1.02 [facility] Comment on above: Result Comment: The validity of the calculated GFR GFRAA in patients over70 years has not been determined. Clinical correlation isessential. Performed By: #### L 500.2500 ####[facility] [address] [place], [address] ECRCL 85.74 ml/min Normal [facility] Comment on above: Performed By: #### L 500.2500 ####[facility] [address] [place], [address] EST GFR - AA 137 mL/min Normal >60 [facility] Comment on above: Result Comment: Afri can Dominican GFR Calc Performed By: #### L 500.2500 ####[facility] [address] [place], [address] GAP 5 Normal 5-15 [facility] Comment on above: Performed By: #### L 500.2500 ####[facility] [address] [place], [address] GFR/1.73 sq M.predicted among non-blacks MDRD (S/P/Bld) [Vol rate/Area] 114 mL/min/{1.73_m2} Normal >60 [facility] Comment on above: Result Comment: Non- GFR Calc Performed By: #### L 500.2500 ####[facility] [address] [place], [address] Glucose [Mass/Vol] 118 mg/dL High 74-106 [facility] Comment on above: Result Comment: Fast ing Glucose result from 100 to 125 mg/dLsuggests IMPAIRED HOMEOSTASIS per A.D.A. criteria. Performed By: #### L 500.2500 ####[facility] [address] [place], [address] Potassium [Moles/Vol] 2.5 mmol/L Invalid Interpretation Code 3.5-5.1 [facility] Comment on above: Result Comment: Crit ical Result(s) Called at: 06:44:23 03/04/2024 by:Nina Guajardo to Jayde. Results read back by same. Performed By: #### L 500.2500 ####[facility] [address] [place], [address] Sodium [Moles/Vol] 142 mmol/L Normal 136-145 [facility] Comment on above: Performed By: #### L 500.2500 ####[facility] [address] [place], [address] Urea nitrogen [Mass/Vol] 5 mg/dL Low 7-18 [facility] Comment on above: Performed By: #### L 500.2500 ####[facility] [address] [place], [address] Bedside Glucoseon 03-04-2024 FINGERSTICK GLU 217 mg/dL High 74-106 [facility] Comment on above: Result Comment: MARIA D GEMENT OF PATIENT CARE PER NURSING PROTOCOL Performed By: #### L 501.080 ####[facility] [address] [place], [address] FINGERSTICK GLU 82 mg/dL Normal 74-106 [facility] Comment on above: Result Comment: MARIA D GEMENT OF PATIENT CARE PER NURSING PROTOCOL Performed By: #### L 501.080 ####[facility] [address] [place], [address] FINGERSTICK GLU 181 mg/dL High 74-106 [facility] Comment on above: Result Comment: MARIA D GEMENT OF PATIENT CARE PER NURSING PROTOCOL Performed By: #### L 501.080 ####[facility] [address] [place], [address] FINGERSTICK GLU 112 mg/dL High 74-106 [facility] Comment on above: Result Comment: MARIA D GEMENT OF PATIENT CARE PER NURSING PROTOCOL Performed By: #### L 501.080 ####[facility] [address] [place], [address] Magnesiumon 03-04-2024 Magnesium [Mass/Vol] 2.0 mg/dL Normal 1.6-2.6 [facility] Comment on above: Performed By: #### L 501.2300, L501.5200 ####[facility] [address] [place], [address] Phosphoruson 03-04-2024 Phosphate [Mass/Vol] 1.2 mg/dL Low 2.5-4.9 [facility] Comment on above: Performed By: #### L 501.2300, L501.5200 ####[facility] [address] [place], [address] Absolute lymphocyte countOrd ered By: Reece Smith on 07-29-2023 Lymphocytes Auto (Unsp spec) [#/Vol] 1.19 10*3/uL 0.83-4.51 [facility] Automated lymphocyte count a s percentage of total leukocytesOrdered By: Reece Smith on 07-29-2023 Lymphocytes/100 WBC Auto (Unsp spec) 19.3 % 19-41 [facility] Basophil percentageOrdered B y: Reece Smith on 07-29-2023 Basophil percentage 0-5 SEEN /hpf 0-5 [facility] Basophils/100 WBC (Bld) 0.5 % 0-1 [facility] Chloride [Moles/Vol] 108 mmol/L 98-107 [facility] Eosinophils/100 WBC (Bld) 1.1 % 0-5 [facility] Glucose [Mass/Vol] 127 mg/dL 74-106 [facility] Comment on above: Fasting Glucose resu lt greater than or equal to 126 mg/dL suggests DIABETES MELLITUS per A.D.A. criteria. Hemoglobin (Bld) [Mass/Vol] 11.4 g/dL 12.0-15.0 [facility] Monocytes/100 WBC (Bld) 5.7 % 0-10 [facility] Neutrophils (Bld) [#/Vol] 4.5 10*3/uL 2.0-7.7 [facility] Neutrophils/100 WBC (Bld) 72.9 % 47-70 [facility] Potassium [Moles/Vol] 4.0 mmol/L 3.5-5.1 [facility] Sodium [Moles/Vol] 141 mmol/L 136-145 [facility] WBC (Bld) [#/Vol] 6.2 10*3/uL 4.4-11.0 [facility] Bilirubin Test strip Ql (U)O rdered By: Reece Smith on 07-29-2023 Bilirubin Ql (U) Negative Negative [facility] Determination of erythrocyte mean corpuscular volume (MCV)Ordered By: Reece Smith on 07-29-2023 MCV (RBC) [Entitic vol] 94.8 fL 81-99 [facility] Erythrocyte distribution wid th ratioOrdered By: Reece Smith on 07-29-2023 Erythrocyte distribution width (RBC) [Ratio] 14.5 % 11.6-14.6 [facility] Erythrocyte distribution wid th standard deviationOrdered By: Reece Smith on 07-29-2023 Erythrocyte distribution width (RBC) [Entitic vol] 50.0 fL 35.1-43.9 [facility] Hematocrit Auto (Bld) [Volum e fraction]Ordered By: Reece Smith on 07-29-2023 Hematocrit (Bld) [Volume fraction] 36.1 % 37-47 [facility] Immature granulocytes/100 WB C Auto (Bld)Ordered By: Reece Smith on 07-29-2023 Immature granulocytes/100 WBC (Bld) 0.500 % 0.0-0.9 [facility] Comment on above: IG% - Immature Granu locytes (promyelocytes, myelocytes and metamyelocytes) > 1% indicates that a LEFT SHIFT is Present. Ketones Test strip Ql (U)Ord ered By: Reece Smith on 07-29-2023 Ketones Ql (U) 50 mg/dl Negative [facility] - Chemistry and C hemistry - challengeOrdered By: Reece Smith on 07-29-2023 CO2 [Moles/Vol] 27.0 mmol/L 21.0-32.0 [facility] Urea nitrogen/Creatinine [Mass ratio] 28.0 mg/mg 10-20 [facility] - Hematology and Cell countsOrdered By: Reece Smith on 07-29-2023 MCH (RBC) [Entitic mass] 29.9 pg 27.0-32.0 [facility] MCHC (RBC) [Mass/Vol] 31.6 g/dL 32-36 [facility] Nucleated RBC/100 WBC (Bld) [Ratio] 0 % 0-5 [facility] Platelets (Bld) [#/Vol] 295 10*3/uL 150-450 [facility] Mucus LM Ql (Urine sed)Order ed By: Reece Smith on 07-29-2023 Mucus Ql (Urine sed) 0 SEEN /hpf [facility] Nitrite Test strip Ql (U)Ord ered By: Reece Smith on 07-29-2023 Nitrite Ql (U) Negative Negative [facility] No Panel InformationOrdered By: Reece Smith on 07-29-2023 Urine RBC 0 SEEN /hpf 0-5 [facility] Estimated Creatinine Clearance Calc 76.36 ml/min [facility] Estimated GFR (MDRD) Amer 121 mL/min >60 [facility] Comment on above: GFR Calc Estimated GFR (MDRD) Non-Af Amer 100 mL/min >60 [facility] Comment on above: Non- GFR Calc Troponin I High Sensitivity 10 pg/mL 3.0-54.0 [facility] Comment on above: Please Note: New Jessica t Units and Gender Specific Reference Ranges. For more information see Policy Stat Procedure [place] High Sensitivity Troponin (TNIH) and attachments. Platelet mean volume Amado-Ec ker (Bld) [Entitic vol]Ordered By: Reece Smith on 07-29-2023 Platelet mean volume (Bld) [Entitic vol] 12.1 fL 6.2-12.0 [facility] Protein Test strip Ql (U)Ord ered By: Reece Smith on 07-29-2023 Protein Ql (U) Negative Negative [facility] RBC Auto (Bld) [#/Vol]Ordere d By: Reece Smith on 07-29-2023 RBC (Bld) [#/Vol] 3.81 10*6/uL 4.2-5.4 [facility] Serum or plasma calcium jn urement (mass/volume)Ordered By: Reece Smith on 07-29-2023 Calcium [Mass/Vol] 9.8 mg/dL 8.5-10.1 [facility] Serum or plasma creatinine m easurement (mass/volume)Ordered By: Reece Smith on 07-29-2023 Creatinine [Mass/Vol] 0.64 mg/dL 0.55-1.02 [facility] Comment on above: The validity of the calculated GFR & GFRAA in patients over 70 years has not been determined. Clinical correlation is essential. Serum or plasma urea nitroge n measurement (mass/volume)Ordered By: Reece Smith on 07-29-2023 Urea nitrogen [Mass/Vol] 18 mg/dL 7-18 [facility] Squamous epithelial cells de tection in urine sediment by light microscopyOrdered By: Reece Smith on 07-29-2023 Epithelial cells.squamous LM Ql (Urine sed) 0 SEEN /hpf 5-10 [facility] Thin prep Papanicolaou smear with manual screeningOrdered By: Reece Smith on 07-29-2023 Thin prep Papanicolaou smear with manual screening 212 mg/dL 74-106 [facility] Comment on above: MANAGEMENT OF PATIEN T CARE PER NURSING PROTOCOL Thin prep Papanicolaou smear with manual screening 6 5-15 [facility] Urine blood detectionOrdered By: Reece Smith on 07-29-2023 RBC Ql (U) Negative Negative [facility] Urine clarityOrdered By: Neil Smith on 07-29-2023 Clarity (U) Clear Clear [facility] Urine color determinationOrd ered By: Reece Smith on 07-29-2023 Color (U) Yellow Yellow [facility] Urine glucose detectionOrder ed By: Reece Smith on 07-29-2023 Glucose Ql (U) Normal mg/dl Normal [facility] Urine leukocyte esterase det ection by dipstickOrdered By: Reece Smith on 07-29-2023 Leukocyte esterase Test strip Ql (U) 25 /ul Negative [facility] Urine pHOrdered By: Reece Smith on 07-29-2023 pH (U) 6.0 [pH] 5.0 - 8.0 [facility] Urine sediment bacteria coun t by microscopy (number/high power field)Ordered By: Reece Smith on 07-29-2023 Bacteria LM.HPF (Urine sed) [#/Area] 0 /[HPF] None Seen [facility] Urine specific gravity measu rementOrdered By: Reece Smith on 07-29-2023 Specific gravity (U) [Rel density] 1.020 1.002-1.030 [facility] Urine urobilinogen measureme ntOrdered By: Reece Smith on 07-29-2023 Urobilinogen Ql (U) Normal mg/dl Normal [facility] Absolute lymphocyte countOrd ered By: Sanjana Quigley on 07-06-2023 Lymphocytes Auto (Unsp spec) [#/Vol] 2.04 10*3/uL 0.83-4.51 [facility] Basophil percentageOrdered B y: Sanjana Quigley on 07-06-2023 Basophils/100 WBC (Bld) 1.0 % 0-1 [facility] Chloride [Moles/Vol] 110 mmol/L 98-107 [facility] Eosinophils/100 WBC (Bld) 1.6 % 0-5 [facility] Glucose [Mass/Vol] 132 mg/dL 74-106 [facility] Comment on above: Fasting Glucose resu lt greater than or equal to 126 mg/dL suggests DIABETES MELLITUS per A.D.A. criteria. Neutrophils (Bld) [#/Vol] 1.3 10*3/uL 2.0-7.7 [facility] Neutrophils/100 WBC (Bld) 34.0 % 47-70 [facility] Potassium [Moles/Vol] 2.7 mmol/L 3.5-5.1 [facility] Comment on above: Critical Result(s) C alled at: 06:51:47 07/06/2023 by: June Fung to [facility]. Results read back by same. Sodium [Moles/Vol] 141 mmol/L 136-145 [facility] WBC (Bld) [#/Vol] 3.9 10*3/uL 4.4-11.0 [facility] Blood erythrocytes count (nu mber/volume)Ordered By: Sanjana Quigley on 07-06-2023 RBC (Bld) [#/Vol] 3.33 10*6/uL 4.2-5.4 [facility] Blood hemoglobin measurement (mass/volume)Ordered By: Sanjana Quigley on 07-06-2023 Hemoglobin (Bld) [Mass/Vol] 9.9 g/dL 12.0-15.0 [facility] Blood lymphocytes/100 leukoc ytesOrdered By: Sanjana Quigley on 07-06-2023 Lymphocytes/100 WBC (Bld) 53.0 % 19-41 [facility] Blood monocytes/100 leukocyt esOrdered By: Sanjana Quigley on 07-06-2023 Monocytes/100 WBC (Bld) 9.9 % 0-10 [facility] Blood platelet mean volumeOr dered By: Sanjana Quigley on 07-06-2023 Platelet mean volume (Bld) [Entitic vol] 11.9 fL 6.2-12.0 [facility] Determination of erythrocyte mean corpuscular volume (MCV)Ordered By: Sanjana Quigley on 07-06-2023 MCV (RBC) [Entitic vol] 86.2 fL 81-99 [facility] Glucose Glucometer (dC) [M ass/Vol]Ordered By: Sanjana Quigley on 07-06-2023 Glucose [Mass/Vol] 223 mg/dL 74-106 [facility] Comment on above: MANAGEMENT OF PATIEN T CARE PER NURSING PROTOCOL Hematocrit Auto (Bld) [Volum e fraction]Ordered By: Sanjana Quigley on 12-31-2023 Hematocrit (Bld) [Volume fraction] 28.7 % 37-47 [facility] - Chemistry and C hemistry - challengeOrdered By: Sanjana Quigley on 07-06-2023 CO2 [Moles/Vol] 27.0 mmol/L 21.0-32.0 [facility] Urea nitrogen/Creatinine [Mass ratio] 24.0 mg/mg 10-20 [facility] - Hematology and Cell countsOrdered By: Sanjana Quigley on 07-06-2023 Erythrocyte distribution width (RBC) [Entitic vol] 41.4 fL 35.1-43.9 [facility] Erythrocyte distribution width (RBC) [Ratio] 13.2 % 11.6-14.6 [facility] Immature granulocytes/100 WBC (Bld) 0.500 % 0.0-0.9 [facility] Comment on above: IG% - Immature Granu locytes (promyelocytes, myelocytes and metamyelocytes) > 1% indicates that a LEFT SHIFT is Present. MCH (RBC) [Entitic mass] 29.7 pg 27.0-32.0 [facility] Nucleated RBC/100 WBC (Bld) [Ratio] 0 % 0-5 [facility] MCHC Auto (RBC) [Mass/Vol]Or dered By: Sanjana Quigley on 07-06-2023 MCHC (RBC) [Mass/Vol] 34.5 g/dL 32-36 [facility] No Panel InformationOrdered By: Sanjana Quigley on 07-06-2023 Estimated Creatinine Clearance Calc 97.74 ml/min [facility] Estimated GFR (MDRD) Amer 161 mL/min >60 [facility] Comment on above: GFR Calc Estimated GFR (MDRD) Non-Af Amer 133 mL/min >60 [facility] Comment on above: Non- GFR Calc Platelets bldOrdered By: Freya Quigley on 07-06-2023 Platelets (Bld) [#/Vol] 185 10*3/uL 150-450 [facility] Serum or plasma calcium jn urement (mass/volume)Ordered By: Sanjana Quigley on 07-06-2023 Calcium [Mass/Vol] 8.5 mg/dL 8.5-10.1 [facility] Serum or plasma creatinine m easurement (mass/volume)Ordered By: Sanjana Riverajose l on 07-06-2023 Creatinine [Mass/Vol] 0.50 mg/dL 0.55-1.02 [facility] Comment on above: The validity of the calculated GFR & GFRAA in patients over 70 years has not been determined. Clinical correlation is essential. Serum or plasma urea nitroge n measurement (mass/volume)Ordered By: Sanjana Soraida on 07-06-2023 Urea nitrogen [Mass/Vol] 12 mg/dL 7-18 [facility] Thin prep Papanicolaou smear with manual screeningOrdered By: [facility] on 07-06-2023 Thin prep Papanicolaou smear with manual screening 4 5-15 [facility] Basophil percentageOrdered B y: Sanjana Riverajose l on 07-04-2023 Lactate [Moles/Vol] 0.7 mmol/L 0.4-2.0 [facility] Absolute lymphocyte countOrd ered By: [facility] on 07-02-2023 Lymphocytes Auto (Unsp spec) [#/Vol] 1.43 10*3/uL 0.83-4.51 [facility] Basophil percentageOrdered B y: [facility] on 07-02-2023 Basophil percentage 25-50 SEEN /hpf 0-5 [facility] Basophils/100 WBC (Bld) 0.6 % 0-1 [facility] Chloride [Moles/Vol] 103 mmol/L 98-107 [facility] Eosinophils/100 WBC (Bld) 0.1 % 0-5 [facility] Glucose [Mass/Vol] 352 mg/dL 74-106 [facility] Comment on above: Glucose result great er than or equal to 200 mg/dLsuggests DIABETES MELLITUS per A.D.A. criteria. Neutrophils (Bld) [#/Vol] 5.3 10*3/uL 2.0-7.7 [facility] Neutrophils/100 WBC (Bld) 74.0 % 47-70 [facility] Potassium [Moles/Vol] 3.8 mmol/L 3.5-5.1 [facility] Sodium [Moles/Vol] 135 mmol/L 136-145 [facility] WBC (Bld) [#/Vol] 7.1 10*3/uL 4.4-11.0 [facility] Bilirubin Test strip Ql (U)O rdered By: Steven Voss on 07-02-2023 Bilirubin Ql (U) Negative Negative [facility] Blood erythrocytes count (nu mber/volume)Ordered By: Steven Voss on 07-02-2023 RBC (Bld) [#/Vol] 4.71 10*6/uL 4.2-5.4 [facility] Blood hemoglobin measurement (mass/volume)Ordered By: Steven Voss on 07-02-2023 Hemoglobin (Bld) [Mass/Vol] 14.0 g/dL 12.0-15.0 [facility] Blood lymphocytes/100 leukoc ytesOrdered By: Steven Voss on 07-02-2023 Lymphocytes/100 WBC (Bld) 20.1 % 19-41 [facility] Blood monocytes/100 leukocyt esOrdered By: Steven Voss on 07-02-2023 Monocytes/100 WBC (Bld) 4.6 % 0-10 [facility] Blood platelet mean volumeOr dered By: Steven Voss on 07-02-2023 Platelet mean volume (Bld) [Entitic vol] 11.8 fL 6.2-12.0 [facility] Culture, urineOrdered By: Sherita Voss on 07-02-2023 Bacteria identified Cx Nom (U) Culture exhibits no growth. [facility] Determination of erythrocyte mean corpuscular volume (MCV)Ordered By: Steven Voss on 07-02-2023 MCV (RBC) [Entitic vol] 92.1 fL 81-99 [facility] Erythrocyte sedimentation ra teOrdered By: Steven Voss on 07-02-2023 ESR (Bld) [Velocity] 24 mm/h 0-30 [facility] Glucose Glucometer (BldC) [M ass/Vol]Ordered By: Steven Voss on 07-02-2023 Glucose [Mass/Vol] 308 mg/dL 74-106 [facility] Comment on above: MANAGEMENT OF PATIEN T CARE PER NURSING PROTOCOL Hematocrit Auto (Bld) [Volum e fraction]Ordered By: Steven Voss on 07-02-2023 Hematocrit (Bld) [Volume fraction] 43.4 % 37-47 [facility] Ketones Test strip Ql (U)Ord ered By: Steven Voss on 07-02-2023 Ketones Ql (U) 150 mg/dl Negative [facility] Comment on above: CRITICAL VALUE *HCRI TICAL VALUE VERIFIED. CALLED TO [id number] Nina Guajardo.RESULTS READ BACK BY SAME . Laboratory - Chemistry and C hemistry - challengeOrdered By: Steven Voss on 07-02-2023 CO2 [Moles/Vol] 10.0 mmol/L 21.0-32.0 [facility] Urea nitrogen/Creatinine [Mass ratio] 14.4 mg/mg 10-20 [facility] - Drug toxicology Ordered By: Torsten Sutton on 07-02-2023 Amphetamines Ql (U) Negative <1000 ng/mL [facility] Benzodiazepines Ql (U) Positive < 200 ng/mL [facility] Cannabinoids Screen Ql (U) Negative < 50 ng/mL [facility] Cocaine Ql (U) Negative < 300 ng/mL [facility] Opiates Ql (U) Positive < 300 ng/mL [facility] - Hematology and Cell countsOrdered By: Stevenlois Voss on 07-02-2023 Erythrocyte distribution width (RBC) [Entitic vol] 43.7 fL 35.1-43.9 [facility] Erythrocyte distribution width (RBC) [Ratio] 12.9 % 11.6-14.6 [facility] Immature granulocytes/100 WBC (Bld) 0.600 % 0.0-0.9 [facility] Comment on above: IG% - Immature Granu locytes (promyelocytes, myelocytes and metamyelocytes) > 1% indicates that a LEFT SHIFT is Present. MCH (RBC) [Entitic mass] 29.7 pg 27.0-32.0 [facility] Nucleated RBC/100 WBC (Bld) [Ratio] 0 % 0-5 [facility] MCHC Auto (RBC) [Mass/Vol]Or dered By: Steven Voss on 07-02-2023 MCHC (RBC) [Mass/Vol] 32.3 g/dL 32-36 [facility] Mucus LM Ql (Urine sed)Order ed By: Steven Voss on 07-02-2023 Mucus Ql (Urine sed) 0 SEEN /hpf [facility] Nitrite Test strip Ql (U)Ord ered By: Steven Voss on 07-02-2023 Nitrite Ql (U) Negative Negative [facility] No Panel InformationOrdered By: Torsten Sutton on 07-02-2023 Ethyl Alcohol Level < 3.0 mg/dL [facility] Comment on above: The serum:whole bloo d ethanol ratio is approximately 1.14and varies slightly with hematocrit. Medical Alcohol reference interval and critical value innon-tolerant individuals; 50 - 100 Impairment 100 Intoxication 100 - 250 Severe Poisoning 250 - 400 Deep/possible fatal coma MDMA (Ecstasy) Screen Negative < 500 ng/mL [facility] Urine Barbiturates Screen Negative < 200 ng/mL [facility] Urine Drug Screen Comment [facility] Comment on above: CONFIRMATORY TESTING FOR [...] Methadone Screen Negative < 300 ng/mL [facility] No Panel InformationOrdered By: Steven Voss on 07-02-2023 Estimated GFR (MDRD) Amer 64 mL/min >60 [facility] Comment on above: GFR Calc Estimated GFR (MDRD) Non-Af Amer 53 mL/min >60 [facility] Comment on above: Non- GFR Calc Platelets bldOrdered By: Steven Voss on 07-02-2023 Platelets (Bld) [#/Vol] 261 10*3/uL 150-450 [facility] Protein Test strip Ql (U)Ord ered By: Steven Voss on 07-02-2023 Protein Ql (U) 30 mg/dl Negative [facility] Serum or plasma calcium jn urement (mass/volume)Ordered By: Steven Voss on 07-02-2023 Calcium [Mass/Vol] 10.2 mg/dL 8.5-10.1 [facility] Serum or plasma creatinine m easurement (mass/volume)Ordered By: Steven Voss on 07-02-2023 Creatinine [Mass/Vol] 1.11 mg/dL 0.55-1.02 [facility] Comment on above: The validity of the calculated GFR & GFRAA in patients over 70 years has not been determined. Clinical correlation is essential. Serum or plasma urea nitroge n measurement (mass/volume)Ordered By: Steven Voss on 07-02-2023 Urea nitrogen [Mass/Vol] 16 mg/dL 7-18 [facility] Squamous epithelial cells de tection in urine sediment by light microscopyOrdered By: Steven Voss on 07-02-2023 Epithelial cells.squamous LM Ql (Urine sed) 0-5 SEEN /hpf 5-10 [facility] Thin prep Papanicolaou smear with manual screeningOrdered By: Steven Voss on 07-02-2023 Thin prep Papanicolaou smear with manual screening 22 5-15 [facility] Urine blood detectionOrdered By: Steven Voss on 07-02-2023 RBC Ql (U) 50 /ul Negative [facility] RBC Ql (U) 0 SEEN /hpf 0-5 [facility] Urine clarityOrdered By: Steven Voss on 07-02-2023 Clarity (U) Clear Clear [facility] Urine color determinationOrd ered By: Steven Voss on 07-02-2023 Color (U) Yellow Yellow [facility] Urine glucose detectionOrder ed By: Steven Voss on 07-02-2023 Glucose Ql (U) 1000 mg/dl Normal [facility] Urine leukocyte esterase det ection by dipstickOrdered By: Steven Voss on 07-02-2023 Leukocyte esterase Test strip Ql (U) 100 /ul Negative [facility] Urine pHOrdered By: Steven ng on 07-02-2023 pH (U) 5.0 [pH] 5.0 - 8.0 [facility] Urine phencyclidine (PCP) de tectionOrdered By: Torsten Sutton on 07-02-2023 Phencyclidine Ql (U) Negative < 25 ng/mL [facility] Urine sediment bacteria coun t by microscopy (number/high power field)Ordered By: Steven Voss on 07-02-2023 Bacteria LM.HPF (Urine sed) [#/Area] 0 /[HPF] None Seen [facility] Urine specific gravity measu rementOrdered By: Steven Voss on 07-02-2023 Specific gravity (U) [Rel density] 1.020 1.002-1.030 [facility] Urobilinogen Auto test strip Ql (U)Ordered By: Steven Voss on 07-02-2023 Urobilinogen Ql (U) Normal mg/dl Normal [facility] Whole blood hemoglobin A1c/t otal hemoglobin ratio (mass fraction)Ordered By: Torsten Sutton on 07-02-2023 HbA1c (Bld) [Mass fraction] 13.9 % 3.8-5.6 [facility] Comment on above: Normal < 5.7 % Predi abetic 5.7 - 6.4 % Diabetic >or= 6.5 % Please note range changes. Glucose Glucometer (BldC) [M ass/Vol]Ordered By: Aleksandar Rebolledo on 07-01-2023 Glucose [Mass/Vol] 490 mg/dL 74-106 [facility] Comment on above: Dr Roman FollowedMA NAGEMENT OF PATIENT CARE PER NURSING PROTOCOL Basophil percentageOrdered B y: Milind Lamb on 05-21-2023 Chloride [Moles/Vol] 100 mmol/L 98-107 [facility] Cholesterol [Mass/Vol] 223 mg/dL <200 [facility] Comment on above: <200 mg/dL Desirable 200-240 mg/dL Borderline >240 mg/dL High Risk Glucose [Mass/Vol] 371 mg/dL 74-106 [facility] Comment on above: Glucose result great er than or equal to 200 mg/dLsuggests DIABETES MELLITUS per A.D.A. criteria. Potassium [Moles/Vol] 4.0 mmol/L 3.5-5.1 [facility] Comment on above: Slight Hemolysis, Re sult may be falsely increased. Sodium [Moles/Vol] 134 mmol/L 136-145 [facility] Triglyceride [Mass/Vol] 116 mg/dL <199 [facility] Comment on above: The drugs N-Acetylcy steine and Metamizole may falsely depress this assay.Serum Triglycerides Reference Interval Normal <150 mg/dL Borderline high 150 - 199 mg/dL High 200 - 499 mg/dL Very High > or = 500 mg/dL Laboratory - Chemistry and C hemistry - challengeOrdered By: Milind Lamb on 05-21-2023 CO2 [Moles/Vol] 25.0 mmol/L 21.0-32.0 [facility] Urea nitrogen/Creatinine [Mass ratio] 22.5 mg/mg 10-20 [facility] No Panel InformationOrdered By: Milind Lamb on 05-21-2023 Estimated GFR (MDRD) Amer 83 mL/min >60 [facility] Comment on above: GFR Calc Estimated GFR (MDRD) Non-Af Amer 69 mL/min >60 [facility] Comment on above: Non- GFR Calc Serum or plasma calcium jn urement (mass/volume)Ordered By: Milind Lamb on 05-21-2023 Calcium [Mass/Vol] 9.2 mg/dL 8.5-10.1 [facility] Serum or plasma cholesterol in HDL measurement (mass/volume)Ordered By: Milind Lamb on 05-21-2023 Cholesterol in HDL [Mass/Vol] 107 mg/dL >40 [facility] Comment on above: The drugs N-Acetylcy steine and Metamizole may falsely depress this assay. Reference Range HDL <40 mg/dL Low HDL Cholesterol HDL >or= 60 mg/dL High HDL Cholesterol Serum or plasma cholesterol in VLDL measurement (mass/volume)Ordered By: Milind Lamb on 05-21-2023 Cholesterol in VLDL [Mass/Vol] 23 mg/dL 5-40 [facility] Serum or plasma creatinine m easurement (mass/volume)Ordered By: Milind Lamb on 05-21-2023 Creatinine [Mass/Vol] 0.89 mg/dL 0.55-1.02 [facility] Comment on above: The validity of the calculated GFR & GFRAA in patients over 70 years has not been determined. Clinical correlation is essential. Serum or plasma low density lipoprotein (LDL) cholesterol measurement (mass/volume)Ordered By: Milind Lamb on 05-21-2023 Cholesterol in LDL [Mass/Vol] 93 mg/dL 0-130 [facility] Serum or plasma urea nitroge n measurement (mass/volume)Ordered By: Milind Lmab on 05-21-2023 Urea nitrogen [Mass/Vol] 20 mg/dL 7-18 [facility] Thin prep Papanicolaou smear with manual screeningOrdered By: Milind Lamb on 05-21-2023 Thin prep Papanicolaou smear with manual screening 9 5-15 [facility] Basophil percentageOrdered B y: Dr. Ahumada on 07-28-2022 Chloride [Moles/Vol] 114 mmol/L 98-107 [facility] Glucose [Mass/Vol] 80 mg/dL 74-106 [facility] Potassium [Moles/Vol] 2.5 mmol/L 3.5-5.1 [facility] Comment on above: Critical Result(s) C alled at: 06:56:24 07/28/2022 by: Arvin Anthony to Danielle TERAN (MS3). Results read back by same. Sodium [Moles/Vol] 141 mmol/L 136-145 [facility] Glucose Glucometer (BldC) [M ass/Vol]Ordered By: Dr. Ahumada on 07-28-2022 Glucose [Mass/Vol] 248 mg/dL 74-106 [facility] Comment on above: MANAGEMENT OF PATIEN T CARE PER NURSING PROTOCOL Laboratory - Chemistry and C hemistry - challengeOrdered By: Dr. Ahumada on 07-28-2022 CO2 [Moles/Vol] 20.0 mmol/L 21.0-32.0 [facility] Urea nitrogen/Creatinine [Mass ratio] 13.7 mg/mg 10-20 [facility] No Panel InformationOrdered By: Dr. Ahumada on 07-28-2022 Estimated Creatinine Clearance Calc 79.08 ml/min [facility] Estimated GFR (MDRD) Amer 135 mL/min >60 [facility] Comment on above: GFR Calc Estimated GFR (MDRD) Non-Af Amer 111 mL/min >60 [facility] Comment on above: Non- GFR Calc Serum or plasma calcium jn urement (mass/volume)Ordered By: Dr. Ahumada on 07-28-2022 Calcium [Mass/Vol] 8.8 mg/dL 8.5-10.1 [facility] Serum or plasma creatinine m easurement (mass/volume)Ordered By: Dr. Ahumada on 07-28-2022 Creatinine [Mass/Vol] 0.59 mg/dL 0.55-1.02 [facility] Comment on above: The validity of the calculated GFR & GFRAA in patients over 70 years has not been determined. Clinical correlation is essential. Serum or plasma urea nitroge n measurement (mass/volume)Ordered By: Dr. Ahumada on 07-28-2022 Urea nitrogen [Mass/Vol] 8 mg/dL 7-18 [facility] Thin prep Papanicolaou smear with manual screeningOrdered By: Dr. Ahumada on 07-28-2022 Thin prep Papanicolaou smear with manual screening 7 5-15 [facility] Absolute lymphocyte countOrd ered By: Dr. Ahumada on 07-27-2022 Lymphocytes Auto (Unsp spec) [#/Vol] 1.63 10*3/uL 0.83-4.51 [facility] Basophil percentageOrdered B y: Dr. Ahumada on 07-27-2022 Basophils/100 WBC (Bld) 0.4 % 0-1 [facility] Eosinophils/100 WBC (Bld) 0.9 % 0-5 [facility] Neutrophils (Bld) [#/Vol] 3.2 10*3/uL 2.0-7.7 [facility] Neutrophils/100 WBC (Bld) 58.4 % 47-70 [facility] WBC (Bld) [#/Vol] 5.5 10*3/uL 4.4-11.0 [facility] Blood erythrocytes count (nu mber/volume)Ordered By: Dr. Ahumada on 07-27-2022 RBC (Bld) [#/Vol] 3.37 10*6/uL 4.2-5.4 [facility] Blood hemoglobin measurement (mass/volume)Ordered By: Dr. Ahumada on 07-27-2022 Hemoglobin (Bld) [Mass/Vol] 10.2 g/dL 12.0-15.0 [facility] Blood lymphocytes/100 leukoc ytesOrdered By: Dr. Ahumada on 07-27-2022 Lymphocytes/100 WBC (Bld) 29.5 % 19-41 [facility] Blood monocytes/100 leukocyt esOrdered By: Dr. Ahumada on 07-27-2022 Monocytes/100 WBC (Bld) 10.3 % 0-10 [facility] Blood platelet mean volumeOr dered By: Dr. Ahumada on 07-27-2022 Platelet mean volume (Bld) [Entitic vol] 11.1 fL 6.2-12.0 [facility] Determination of erythrocyte mean corpuscular volume (MCV)Ordered By: Dr. Ahumada on 07-27-2022 MCV (RBC) [Entitic vol] 85.5 fL 81-99 [facility] Hematocrit Auto (Bld) [Volum e fraction]Ordered By: Dr. Ahumada on 07-27-2022 Hematocrit (Bld) [Volume fraction] 28.8 % 37-47 [facility] Laboratory - Hematology and Cell countsOrdered By: Dr. Ahumada on 07-27-2022 Erythrocyte distribution width (RBC) [Entitic vol] 40.8 fL 35.1-43.9 [facility] Erythrocyte distribution width (RBC) [Ratio] 13.2 % 11.6-14.6 [facility] Immature granulocytes/100 WBC (Bld) 0.500 % 0.0-0.9 [facility] Comment on above: IG% - Immature Granu locytes (promyelocytes, myelocytes and metamyelocytes) > 1% indicates that a LEFT SHIFT is Present. MCH (RBC) [Entitic mass] 30.3 pg 27.0-32.0 [facility] Nucleated RBC/100 WBC (Bld) [Ratio] 0 % 0-5 [facility] MCHC Auto (RBC) [Mass/Vol]Or dered By: Dr. Ahumada on 07-27-2022 MCHC (RBC) [Mass/Vol] 35.4 g/dL 32-36 [facility] Comment on above: Delta: 32.8 on 07/26-1135 Platelets bldOrdered By: Dr. Ahumada on 07-27-2022 Platelets (Bld) [#/Vol] 156 10*3/uL 150-450 [facility] Absolute lymphocyte countOrd ered By: Dr. Voss on 07-26-2022 Lymphocytes Auto (Unsp spec) [#/Vol] 1.17 10*3/uL 0.83-4.51 [facility] Basophil percentageOrdered B y: Dr. Voss on 07-26-2022 Basophil percentage 0 SEEN /hpf 0-5 [facility] Basophils/100 WBC (Bld) 0.7 % 0-1 [facility] Chloride [Moles/Vol] 99 mmol/L 98-107 [facility] Eosinophils/100 WBC (Bld) 0.1 % 0-5 [facility] Glucose [Mass/Vol] 686 mg/dL 74-106 [facility] Comment on above: Critical Result(s) C alled at: 12:11:35 07/26/2022 by: June Donnelly. Results read back by same.Glucose result greater than or equal to 200 mg/dLsuggests DIABETES MELLITUS per A.D.A. criteria. Neutrophils (Bld) [#/Vol] 7.7 10*3/uL 2.0-7.7 [facility] Neutrophils/100 WBC (Bld) 79.8 % 47-70 [facility] Potassium [Moles/Vol] 4.2 mmol/L 3.5-5.1 [facility] Sodium [Moles/Vol] 132 mmol/L 136-145 [facility] WBC (Bld) [#/Vol] 9.7 10*3/uL 4.4-11.0 [facility] Bilirubin Test strip Ql (U)O rdered By: Dr. Voss on 07-26-2022 Bilirubin Ql (U) Negative Negative [facility] Blood erythrocytes count (nu mber/volume)Ordered By: Dr. Voss on 07-26-2022 RBC (Bld) [#/Vol] 4.25 10*6/uL 4.2-5.4 [facility] Blood hemoglobin measurement (mass/volume)Ordered By: Dr. Voss on 07-26-2022 Hemoglobin (Bld) [Mass/Vol] 12.5 g/dL 12.0-15.0 [facility] Blood lymphocytes/100 leukoc ytesOrdered By: Dr. Voss on 07-26-2022 Lymphocytes/100 WBC (Bld) 12.1 % 19-41 [facility] Blood monocytes/100 leukocyt esOrdered By: Dr. Voss on 07-26-2022 Monocytes/100 WBC (Bld) 5.0 % 0-10 [facility] Blood platelet mean volumeOr dered By: Dr. Voss on 07-26-2022 Platelet mean volume (Bld) [Entitic vol] 12.0 fL 6.2-12.0 [facility] Determination of erythrocyte mean corpuscular volume (MCV)Ordered By: Dr. Voss on 07-26-2022 MCV (RBC) [Entitic vol] 89.6 fL 81-99 [facility] Glucose Glucometer (BldC) [M ass/Vol]Ordered By: Dr. Voss on 07-26-2022 Glucose [Mass/Vol] mg/dL 74-106 [facility] Comment on above: Dr Abel HOLLIDAYEMENT OF PATIENT CARE PER NURSING PROTOCOL Hematocrit Auto (Bld) [Volum e fraction]Ordered By: Dr. Voss on 07-26-2022 Hematocrit (Bld) [Volume fraction] 38.1 % 37-47 [facility] Ketones Test strip Ql (U)Ord ered By: Dr. Voss on 07-26-2022 Ketones Ql (U) 150 mg/dl Negative [facility] Comment on above: CRITICAL VALUE *HCRI TICAL VALUE VERIFIED. CALLED TO JAMILAH TERAN (ICU)07/26/22 1515 Eric Anthony.RESULTS READ BACK BY SAME. Laboratory - Chemistry and C hemistry - challengeOrdered By: Dr. Voss on 07-26-2022 CO2 [Moles/Vol] 6.0 mmol/L 21.0-32.0 [facility] Comment on above: Critical Result(s) C alled at: 12:11:35 07/26/2022 by: June Donnelly. Results read back by same. Magnesium [Mass/Vol] 2.3 mg/dL 1.6-2.6 [facility] Urea nitrogen/Creatinine [Mass ratio] 10.6 mg/mg 10- [facility] Laboratory - Hematology and Cell countsOrdered By: Dr. Voss on 07-26-2022 Erythrocyte distribution width (RBC) [Entitic vol] 43.4 fL 35.1-43.9 [facility] Erythrocyte distribution width (RBC) [Ratio] 13.2 % 11.6-14.6 [facility] Immature granulocytes/100 WBC (Bld) 2.300 % 0.0-0.9 [facility] Comment on above: IG% - Immature Granu locytes (promyelocytes, myelocytes and metamyelocytes) > 1% indicates that a LEFT SHIFT is Present. MCH (RBC) [Entitic mass] 29.4 pg 27.0-32.0 [facility] Nucleated RBC/100 WBC (Bld) [Ratio] 0 % 0-5 [facility] MCHC Auto (RBC) [Mass/Vol]Or dered By: Dr. Voss on 07-26-2022 MCHC (RBC) [Mass/Vol] 32.8 g/dL 32-36 [facility] Mucus LM Ql (Urine sed)Order ed By: Dr. Voss on 07-26-2022 Mucus Ql (Urine sed) 0 SEEN /hpf [facility] Nitrite Test strip Ql (U)Ord ered By: Dr. Voss on 07-26-2022 Nitrite Ql (U) Negative Negative [facility] No Panel InformationOrdered By: Dr. Voss on 07-26-2022 Estimated Creatinine Clearance Calc 37.49 ml/min [facility] Estimated GFR (MDRD) Amer 53 mL/min >60 [facility] Comment on above: GFR Calc Estimated GFR (MDRD) Non-Af Amer 44 mL/min >60 [facility] Comment on above: Non- GFR Calc Platelets bldOrdered By: Dr. Voss on 07-26-2022 Platelets (Bld) [#/Vol] 234 10*3/uL 150-450 [facility] Protein Test strip Ql (U)Ord ered By: Dr. Voss on 07-26-2022 Protein Ql (U) 30 mg/dl Negative [facility] Serum or plasma calcium jn urement (mass/volume)Ordered By: Dr. Voss on 07-26-2022 Calcium [Mass/Vol] 9.7 mg/dL 8.5-10.1 [facility] Serum or plasma creatinine m easurement (mass/volume)Ordered By: Dr. Voss on 07-26-2022 Creatinine [Mass/Vol] 1.32 mg/dL 0.55-1.02 [facility] Comment on above: The validity of the calculated GFR & GFRAA in patients over 70 years has not been determined. Clinical correlation is essential. Serum or plasma urea nitroge n measurement (mass/volume)Ordered By: Dr. Voss on 07-26-2022 Urea nitrogen [Mass/Vol] 14 mg/dL 7-18 [facility] Squamous epithelial cells de tection in urine sediment by light microscopyOrdered By: Dr. Voss on 07-26-2022 Epithelial cells.squamous LM Ql (Urine sed) 0 SEEN /hpf 5-10 [facility] Thin prep Papanicolaou smear with manual screeningOrdered By: Dr. Voss on 07-26-2022 Thin prep Papanicolaou smear with manual screening 27 5-15 [facility] Urine blood detectionOrdered By: Dr. Voss on 07-26-2022 RBC Ql (U) 10 /ul Negative [facility] RBC Ql (U) 0-5 SEEN /hpf 0-5 [facility] Urine clarityOrdered By: Dr. Voss on 07-26-2022 Clarity (U) Clear Clear [facility] Urine color determinationOrd ered By: Dr. Voss on 07-26-2022 Color (U) Straw Yellow [facility] Urine glucose detectionOrder ed By: Dr. Voss on 07-26-2022 Glucose Ql (U) 1000 mg/dl Normal [facility] Urine leukocyte esterase det ection by dipstickOrdered By: Dr. Voss on 07-26-2022 Leukocyte esterase Test strip Ql (U) Negative Negative [facility] Urine pHOrdered By: Dr. Melissa ng on 07-26-2022 pH (U) 6.5 [pH] 5.0 - 8.0 [facility] Urine sediment bacteria coun t by microscopy (number/high power field)Ordered By: Dr. Voss on 07-26-2022 Bacteria LM.HPF (Urine sed) [#/Area] 0 /[HPF] None Seen [facility] Urine specific gravity measu rementOrdered By: Dr. Voss on 07-26-2022 Specific gravity (U) [Rel density] 1.015 1.002-1.030 [facility] Urobilinogen Auto test strip Ql (U)Ordered By: Dr. Voss on 07-26-2022 Urobilinogen Ql (U) Normal mg/dl Normal [facility] Whole blood hemoglobin A1c/t otal hemoglobin ratio (mass fraction)Ordered By: Dr. Ahumada on 07-26-2022 HbA1c (Bld) [Mass fraction] % 3.8-5.6 [facility] Comment on above: Normal < 5.7 % Predi abetic 5.7 - 6.4 % Diabetic >or= 6.5 % Please note range changes. RSV Ag EIAOrdered By: Dr. Malcom jackson on 05-03-2022 RSV Ag Immune stain Ql (Tiss) [facility] SARS-CoV-2 (COVID-19) Ag IA. rapid Ql (Resp)Ordered By: Dr. Gleason on 05-03-2022 SARS-CoV-2 Antigen (Rapid) SARS-CoV-2 (COVID 19) [facility] Basophil percentageOrdered B y: Dr. Mcclendon on 04-11-2022 Bilirubin [Mass/Vol] 0.50 mg/dL 0.20-1.00 [facility] Comment on above: For patients on eltr ombopag therapy, use of Dimension [place] TBIL is not recommended. Chloride [Moles/Vol] 103 mmol/L 98-107 [facility] Glucose [Mass/Vol] 139 mg/dL 74-106 [facility] Comment on above: Fasting Glucose resu lt greater than or equal to 126 mg/dL suggests DIABETES MELLITUS per A.D.A. criteria. Potassium [Moles/Vol] 3.8 mmol/L 3.5-5.1 [facility] Protein [Mass/Vol] 7.7 g/dL 6.4-8.2 [facility] Sodium [Moles/Vol] 139 mmol/L 136-145 [facility] Laboratory - Chemistry and C hemistry - challengeOrdered By: Dr. Mcclendon on 04-11-2022 ALP [Catalytic activity/Vol] 88 U/L 45-117 [facility] ALT [Catalytic activity/Vol] 14 U/L 13-56 [facility] CO2 [Moles/Vol] 31.0 mmol/L 21.0-32.0 [facility] Globulin (S) [Mass/Vol] 3.5 g/dL 2.2-4.2 [facility] Urea nitrogen/Creatinine [Mass ratio] 17.6 mg/mg 10- [facility] No Panel InformationOrdered By: Dr. Mcclendon on 04-11-2022 Estimated GFR (MDRD) Amer 113 mL/min >60 [facility] Comment on above: GFR Calc Estimated GFR (MDRD) Non-Af Amer 94 mL/min >60 [facility] Comment on above: Non- GFR Calc Serum or plasma albumin jn urement (mass/volume)Ordered By: Dr. Mcclendon on 04-11-2022 Albumin [Mass/Vol] 4.2 g/dL 3.2-5.0 [facility] Serum or plasma albumin/glob ulin mass ratioOrdered By: Dr. Mcclendon on 04-11-2022 Albumin/Globulin [Mass ratio] 1.2 {ratio} 0.9-2.4 [facility] Serum or plasma calcium jn urement (mass/volume)Ordered By: Dr. Mcclendon on 04-11-2022 Calcium [Mass/Vol] 9.7 mg/dL 8.5-10.1 [facility] Serum or plasma creatinine m easurement (mass/volume)Ordered By: Dr. Mcclendon on 04-11-2022 Creatinine [Mass/Vol] 0.68 mg/dL 0.55-1.02 [facility] Comment on above: The validity of the calculated GFR & GFRAA in patients over 70 years has not been determined. Clinical correlation is essential. Serum or plasma urea nitroge n measurement (mass/volume)Ordered By: Dr. Mcclendon on 04-11-2022 Urea nitrogen [Mass/Vol] 12 mg/dL 7-18 [facility] Thin prep Papanicolaou smear with manual screeningOrdered By: Dr. Mcclendon on 04-11-2022 Thin prep Papanicolaou smear with manual screening 8 U/L 15-37 [facility] Thin prep Papanicolaou smear with manual screening 5 5-15 [facility] Absolute lymphocyte counton 03-06-2022 Lymphocytes Auto (Unsp spec) [#/Vol] 1.89 10*3/uL 0.83-4.51 [facility] Work Phone: Basophil percentageon 2021 Basophil percentage 4.0 mg/dL 2.5-4.9 [facility] Work Phone: Chloride [Moles/Vol] 111 mmol/L 98-107 [facility] Work Phone: [phone] Glucose [Mass/Vol] 233 mg/dL 74-106 [facility] Work Phone: [phone] Comment on above: Glucose result great er than or equal to 200 mg/dLsuggests DIABETES MELLITUS per A.D.A. criteria. Potassium [Moles/Vol] 4.3 mmol/L 3.5-5.1 [facility] Work Phone: Sodium [Moles/Vol] 141 mmol/L 136-145 [facility] Work Phone: Basophils/100 WBC (Bld) 0.5 % 0-1 [facility] Work Phone: [phone] Bilirubin [Mass/Vol] 0.30 mg/dL 0.20-1.00 [facility] Work Phone: [phone] Comment on above: For patients on eltr ombopag therapy, use of [employer] [place] TBIL is not recommended. Eosinophils/100 WBC (Bld) 1.2 % 0-5 [facility] Work Phone: Neutrophils (Bld) [#/Vol] 1.6 10*3/uL 2.0-7.7 [facility] Work Phone: [phone] Neutrophils/100 WBC (Bld) 37.9 % 47-70 [facility] Work Phone: [phone] Protein [Mass/Vol] 5.6 g/dL 6.4-8.2 [facility] Work Phone: WBC (Bld) [#/Vol] 4.1 10*3/uL 4.4-11.0 [facility] Work Phone: Blood erythrocytes count (nu mber/volume)on 03-06-2022 RBC (Bld) [#/Vol] 3.50 10*6/uL 4.2-5.4 [facility] Work Phone: Blood hemoglobin measurement (mass/volume)on 03-06-2022 Hemoglobin (Bld) [Mass/Vol] 10.8 g/dL 12.0-15.0 [facility] Work Phone: [phone] Blood lymphocytes/100 leukoc yteson 03-06-2022 Lymphocytes/100 WBC (Bld) 46.0 % 19-41 [facility] Work Phone: [phone] Blood monocytes/100 leukocyt eson 03-06-2022 Monocytes/100 WBC (Bld) 13.9 % 0-10 [facility] Work Phone: [phone] Blood platelet mean volumeon 03-06-2022 Platelet mean volume (Bld) [Entitic vol] 11.0 fL 6.2-12.0 [facility] Work Phone: [phone] Determination of erythrocyte mean corpuscular volume (MCV)on 03-06-2022 MCV (RBC) [Entitic vol] 88.3 fL 81-99 [facility] Work Phone: [phone] Glucose Glucometer (BldC) [M ass/Vol]on 03-06-2022 Glucose [Mass/Vol] 184 mg/dL 74-106 [facility] Work Phone: Comment on above: MANAGEMENT OF PATIEN T CARE PER NURSING PROTOCOL Hematocrit Auto (Bld) [Volum e fraction]on 03-06-2022 Hematocrit (Bld) [Volume fraction] 30.9 % 37-47 [facility] Work Phone: [phone] Laboratory - Chemistry and C hemistry - challengeon 03-06-2022 CO2 [Moles/Vol] 25.0 mmol/L 21.0-32.0 [facility] Work Phone: [phone] Urea nitrogen/Creatinine [Mass ratio] 6.8 mg/mg 10-20 [facility] Work Phone: [phone] ALP [Catalytic activity/Vol] 71 U/L 45-117 [facility] Work Phone: [phone] ALT [Catalytic activity/Vol] 11 U/L 13-56 [facility] Work Phone: [phone] Globulin (S) [Mass/Vol] 2.9 g/dL 2.2-4.2 [facility] Work Phone: [phone] Magnesium [Mass/Vol] 2.5 mg/dL 1.6-2.6 [facility] Work Phone: [phone] Laboratory - Hematology and Cell countson 03-06-2022 Erythrocyte distribution width (RBC) [Entitic vol] 45.3 fL 35.1-43.9 [facility] Work Phone: [phone] Erythrocyte distribution width (RBC) [Ratio] 14.2 % 11.6-14.6 [facility] Work Phone: [phone] Immature granulocytes/100 WBC (Bld) 0.500 % 0.0-0.9 [facility] Work Phone: [phone] Comment on above: IG% - Immature Granu locytes (promyelocytes, myelocytes and metamyelocytes) > 1% indicates that a LEFT SHIFT is Present. MCH (RBC) [Entitic mass] 30.9 pg 27.0-32.0 [facility] Work Phone: [phone] Nucleated RBC/100 WBC (Bld) [Ratio] 0 % 0-5 [facility] Work Phone: [phone] MCHC Auto (RBC) [Mass/Vol]on 03-06-2022 MCHC (RBC) [Mass/Vol] 35.0 g/dL 32-36 [facility] Work Phone: [phone] No Panel Informationon 03-06 Estimated Creatinine Clearance Calc 67.71 ml/min [facility] Work Phone: [phone] Estimated GFR (MDRD) Amer 103 mL/min >60 [facility] Work Phone: [phone] Comment on above: GFR Calc Estimated GFR (MDRD) Non-Af Amer 85 mL/min >60 [facility] Work Phone: [phone] Comment on above: Non- GFR Calc Platelets bldon 03-06-2022 Platelets (Bld) [#/Vol] 131 10*3/uL 150-450 [facility] Work Phone: Serum or plasma albumin jn urement (mass/volume)on 03-06-2022 Albumin [Mass/Vol] 2.7 g/dL 3.2-5.0 [facility] Work Phone: [phone] Serum or plasma albumin/glob ulin mass ratioon 03-06-2022 Albumin/Globulin [Mass ratio] 0.9 {ratio} 0.9-2.4 [facility] Work Phone: [phone] Serum or plasma calcium jn urement (mass/volume)on 03-06-2022 Calcium [Mass/Vol] 8.7 mg/dL 8.5-10.1 [facility] Work Phone: [phone] Serum or plasma creatinine m easurement (mass/volume)on 03-06-2022 Creatinine [Mass/Vol] 0.74 mg/dL 0.55-1.02 [facility] Work Phone: Comment on above: The validity of the calculated GFR & GFRAA in patients over 70 years has not been determined. Clinical correlation is essential. Serum or plasma urea nitroge n measurement (mass/volume)on 03-06-2022 Urea nitrogen [Mass/Vol] 5 mg/dL 7-18 [facility] Work Phone: [phone] Thin prep Papanicolaou smear with manual screeningon 03-06-2022 Thin prep Papanicolaou smear with manual screening 5 5-15 [facility] Work Phone: [phone] Thin prep Papanicolaou smear with manual screening 11 U/L 15-37 [facility] Work Phone: [phone] Assessment of wrist artery p atency prior to arterial punctureon 03-04-2022 Arterial patency Wrist artery --pre arterial puncture Positive [facility] Work Phone: [phone] Base excesson 03-04-2022 Base excess Calc (BldV) [Moles/Vol] -17 mmol/L -2-2 [facility] Work Phone: [phone] Basophil percentageon 2021 Basophil percentage 10.7 mmol/L 22-26 [facility] Work Phone: Basophils/100 WBC (Bld) 96 % 95-99 [facility] Work Phone: Blood platelet morphology de termination (nominal result)on 03-04-2022 Platelet morphology finding Nom (Bld) CLUMPED [facility] Work Phone: CO2 (BldA) [Partial pressure ]on 03-04-2022 CO2 (Bld) [Partial pressure] 24.5 mm[Hg] 35-45 [facility] Work Phone: Laboratory - Chemistry and C hemistry - challengeon 03-04-2022 Lipase [Catalytic activity/Vol] 497 U/L 73-393 [facility] Work Phone: No Panel Informationon 03-04 Blood Gas Oxygen Percent 21 [facility] Work Phone: [facility]: Blood Gas Specimen Type ART [facility] Work Phone: Blood Gas Total CO2 12 mmol/L [facility] Work Phone: Oxygen (BldA) [Partial press ure]on 03-04-2022 Oxygen (Bld) [Partial pressure] 89 mmHG 75-100 [facility] Work Phone: Whole blood hemoglobin A1c/t otal hemoglobin ratio (mass fraction)on 03-04-2022 HbA1c (Bld) [Mass fraction] 13.4 % 3.8-5.6 [facility] Work Phone: Comment on above: Normal < 5.7 % Predi abetic 5.7 - 6.4 % Diabetic >or= 6.5 % Please note range changes. pH measurementon 03-04-2022 pH (Unsp spec) 7.25 [pH] 7.35-7.45 [facility] Work Phone: Basophil percentageon 2021 Basophil percentage 0-5 SEEN /hpf 0-5 [facility] Work Phone: Lactate [Moles/Vol] 1.2 mmol/L 0.4-2.0 [facility]: [phone] Bilirubin Test strip Ql (U)o n 03-03-2022 Bilirubin Ql (U) Negative Negative [facility] Work Phone: [phone] INR in Blood by Coagulation assayon 03-03-2022 INR Coag (Bld) [Relative time] 1.1 {INR} [facility] Work Phone: [phone] Ketones Test strip Ql (U)on 03-03-2022 Ketones Ql (U) 150 mg/dl Negative [facility] Work Phone: [phone] Comment on above: CRITICAL VALUE VERIF IED. CALLED TO BIJU RIOS RN (ER)03/03/222004 Blaine Villanueva.RESULTS READ BACK BY SAME . CRITICAL VALUE *H Laboratory - Coagulationon 0 03-03-2022 PT Coag (PPP) [Time] 13.4 s 11.7-14.9 [facility] Work Phone: Mucus LM Ql (Urine sed)on Mucus Ql (Urine sed) 0 SEEN /hpf [facility] Work Phone: [phone] Nitrite Test strip Ql (U)on 03-03-2022 Nitrite Ql (U) Negative Negative [facility] Work Phone: No Panel Informationon 03-03 Bld Gas Crit Called To/Read Back By Yes [facility] Work Phone: [phone] Blood Gas Notified Whom white W [facility] Work Phone: [phone] Ethyl Alcohol Level < 3.0 mg/dL [facility] Work Phone: [phone] Comment on above: The serum:whole bloo d ethanol ratio is approximately 1.14and varies slightly with hematocrit. Medical Alcohol reference interval and critical value innon-tolerant individuals; 50 - 100 Impairment 100 Intoxication 100 - 250 Severe Poisoning 250 - 400 Deep/possible fatal coma Troponin I High Sensitivity 11 pg/mL 3.0-54.0 [facility] Work Phone: [phone] Comment on above: Please Note: New Jessica t Units and Gender Specific Reference Ranges. For more information see Policy Stat Procedure [place] High Sensitivity Troponin (TNIH) and attachments. Protein Test strip Ql (U)on 03-03-2022 Protein Ql (U) 30 mg/dl Negative [facility] Work Phone: [phone] Serum or plasma acetone jn urement (mass/volume)on 03-03-2022 Acetone [Mass/Vol] LARGE NEG [facility] Work Phone: [phone] Squamous epithelial cells de tection in urine sediment by light microscopyon 03-03-2022 Epithelial cells.squamous LM Ql (Urine sed) 0-5 SEEN /hpf 5-10 [facility] Work Phone: Urine blood detectionon 02-05 RBC Ql (U) 25 /ul Negative [facility] Work Phone: [phone] RBC Ql (U) 0-5 SEEN /hpf 0-5 [facility] Work Phone: Urine clarityon 03-03-2022 Clarity (U) Clear Clear [facility] Work Phone: Urine coarse granular cast d etectionon 03-03-2022 Coarse Granular Casts LM Ql (Urine sed) 5-10 SEEN /lpf 0-5 /lpf [facility] Work Phone: Urine color determinationon 03-03-2022 Color (U) Straw Yellow [facility] Work Phone: Urine glucose detectionon Glucose Ql (U) 1000 mg/dl Normal [facility] Work Phone: [phone] Urine leukocyte esterase det ection by dipstickon 03-03-2022 Leukocyte esterase Test strip Ql (U) 100 /ul Negative [facility] Work Phone: [phone] Urine pHon 03-03-2022 pH (U) 5.0 [pH] 5.0 - 8.0 [facility] Work Phone: [phone] Urine sediment bacteria coun t by microscopy (number/high power field)on 03-03-2022 Bacteria LM.HPF (Urine sed) [#/Area] 1 /[HPF] None Seen [facility] Work Phone: Urine sediment yeast count b y microscopy (number/high powered field)on 03-03-2022 Yeast LM.HPF (Urine sed) [#/Area] RARE /hpf None Seen [facility] Work Phone: Urine specific gravity measu rementon 03-03-2022 Specific gravity (U) [Rel density] 1.020 1.002-1.030 [facility] Work Phone: Urobilinogen Auto test strip Ql (U)on 03-03-2022 Urobilinogen Ql (U) Normal mg/dl Normal [facility] Work Phone: XR ELBOW MINIMUM 3 [...] AM Sign Date: 07/22/2018 9:20:04 AM Normal [facility] ([place]) No Panel Information SARS-CoV-2 & FLU Antigen (Rapid) [facility] Work Phone: SARS-CoV-2 (COVID-19) Ag IA. rapid Ql (Resp) SARS-CoV-2 Antigen (Rapid) SARS-CoV-2 (COVID 19) [facility] Work Phone: Vital Signs Date Time Vital Sign Value Performing Clinician Faci lity 02-26-2025 00:29-0400 Body temperature 97.9 [degF] Dr. Milind Lamb MD Work Phone: [facility] 02-26-2025 00:29-0400 Diastolic blood pressure 65 mm[Hg] Dr. Milind Lamb MD Work Phone: [facility] 02-26-2025 00:29-0400 Heart rate 72 /min Dr. Milind Lamb MD Work Phone: [facility] 02-26-2025 00:29-0400 Respiratory rate 18 /min Dr. Milind Lamb MD Work Phone: 4(405)541-278750 [place] [address] 02-26-2025 00:29-0400 SaO2% (BldA) [Mass fraction] 97 % Dr. Milind Lamb MD Work Phone: 4(211)902-235450 [place] [address] 02-26-2025 00:29-0400 Systolic blood pressure 122 mm[Hg] Dr. Milind Lamb MD Work Phone: 3(750)196-325250 [place] [address] 02-25-2025 21:04-0400 Body height 160.[address] Milind Lamb MD Work Phone: 3(014)260-671050 [place] [address] 02-25-2025 21:04-0400 Body mass index (BMI) [Ratio] 24.4 kg/m2 Dr. Milind Lamb MD Work Phone: 4(066)246-960750 [place] [address] 02-25-2025 21:04-0400 Body weight 62.[address] Milind Lamb MD Work Phone: 1(071)325-434250 [place] [address] 12-10-2024 04:29-0400 Body temperature 98.7 [degF] Dr. Milind Lamb MD Work Phone: 3(964)475-615750 [place] [address] 12-10-2024 04:29-0400 Diastolic blood pressure 65 mm[Hg] Dr. Milind Lamb MD Work Phone: 4(124)984-430950 [place] [address] 12-10-2024 04:29-0400 Heart rate 87 /min Dr. Milind Lamb MD Work Phone: 7(364)153-622450 [place] [address] 12-10-2024 04:29-0400 Respiratory rate 16 /min Dr. Milind Lamb MD Work Phone: 1(919)514-910750 [place] [address] 12-10-2024 04:29-0400 SaO2% (BldA) [Mass fraction] 100 % Dr. Milind Lamb MD Work Phone: 7(494)744-635250 [place] [address] 12-10-2024 04:29-0400 Systolic blood pressure 142 mm[Hg] Dr. Milind Lamb MD Work Phone: 1(151)674-319350 [place] [address] 12-10-2024 03:32-0400 Body mass index (BMI) [Ratio] 22.6 kg/m2 Dr. Milind Lamb MD Work Phone: 9(455)126-992050 [place] [address] 12-10-2024 03:32-0400 Body weight [address] Milind Lamb MD Work Phone: 7(162)779-289950 [place] [address] 12-09-2024 15:49-0400 Body height 160.[address] Milind Lamb MD Work Phone: 6(749)864-754050 [place] [address] 12-09-2024 00:00-0400 Body temperature 98.9 [degF] Dr. Milind Lamb MD Work Phone: 5(398)318-662350 [place] [address] 12-09-2024 00:00-0400 Diastolic blood pressure 52 mm[Hg] Dr. Milind Lamb MD Work Phone: 1(994)464-511850 [place] [address] 12-09-2024 00:00-0400 Heart rate 92 /min Dr. Milind Lamb MD Work Phone: 5(462)815-387450 [place] [address] 12-09-2024 00:00-0400 Respiratory rate 21 /min Dr. Milind Lamb MD Work Phone: 4(326)276-341750 [place] [address] 12-09-2024 00:00-0400 SaO2% (BldA) [Mass fraction] 99 % Dr. Milind Lamb MD Work Phone: 6(417)362-421450 [place] [address] 12-09-2024 00:00-0400 Systolic blood pressure 109 mm[Hg] Dr. Milind Lamb MD Work Phone: 7(286)364-386350 [place] [address] 12-08-2024 19:55-0400 Body height 160.[address] Milind Lamb MD Work Phone: 4(793)193-949250 [place] [address] 12-08-2024 19:55-0400 Body mass index (BMI) [Ratio] 23.6 kg/m2 Dr. Milind Lamb MD Work Phone: 3(688)483-241150 [place] [address] 12-08-2024 19:55-0400 Body weight 60.[address] Milind Lamb MD Work Phone: 4(533)711-262150 [place] [address] 07-29-2023 16:28-0500 Diastolic blood pressure 80 mm[Hg] Dr. Milind Lamb Work Phone: [facility] 07-29-2023 16:28-0500 Heart rate 99 /min Dr. Milind Lamb Work Phone: [facility] 07-29-2023 16:28-0500 Respiratory rate 23 /min Dr. Milind Lamb Work Phone: [facility] 07-29-2023 16:28-0500 SaO2% (BldA) [Mass fraction] 98 % Dr. Milind Lamb Work Phone: [facility] 07-29-2023 16:28-0500 Systolic blood pressure 150 mm[Hg] Dr. Milind Lamb Work Phone: [facility] 07-29-2023 12:34-0500 Body height 160.[address] Milind Lamb Work Phone: [facility] 07-29-2023 12:34-0500 Body mass index (BMI) [Ratio] 23.7 kg/m2 Dr. Milind Lamb Work Phone: [facility] 07-29-2023 12:34-0500 Body temperature 95.9 [degF] Dr. Milind Lamb Work Phone: [facility] 07-29-2023 12:34-0500 Body weight 60.[address] Milind Lamb Work Phone: [facility] 07-06-2023 12:39-0500 Body temperature 98.2 [degF] Dr. Milind Lamb Work Phone: [facility] 07-06-2023 12:39-0500 Diastolic blood pressure 71 mm[Hg] Dr. Milind Lamb Work Phone: [facility] 07-06-2023 12:39-0500 Heart rate 98 /min Dr. Milind Lamb Work Phone: [facility] 07-06-2023 12:39-0500 Respiratory rate 18 /min Dr. Milind Lamb Work Phone: [facility] 07-06-2023 12:39-0500 SaO2% (BldA) [Mass fraction] 100 % Dr. Milind Lamb Work Phone: [facility] 07-06-2023 12:39-0500 Systolic blood pressure 141 mm[Hg] Dr. Milind Lamb Work Phone: [facility] 07-05-2023 12:30-0500 Body weight 56.[address] Milind Lamb Work Phone: [facility] 07-05-2023 06:00-0500 Body mass index (BMI) [Ratio] 21.9 kg/m2 Dr. Milind Lamb Work Phone: [facility] 07-02-2023 21:27-0500 Body temperature 98.3 [degF] [facility] 07-02-2023 21:27-0500 Diastolic blood pressure 81 mm[Hg] [facility] 07-02-2023 21:27-0500 Heart rate 124 /min [facility] 07-02-2023 21:27-0500 Respiratory rate 26 /min [facility] 07-02-2023 21:27-0500 SaO2% (BldA) [Mass fraction] 100 % [facility] 07-02-2023 21:27-0500 Systolic blood pressure 176 mm[Hg] [facility] 07-02-2023 20:50-0500 Body mass index (BMI) [Ratio] 21.4 kg/m2 [facility] 07-02-2023 20:50-0500 Body weight 54.88 kg [facility] 07-02-2023 18:19-0500 Body height 160.02 cm [facility] 07-02-2023 09:02-0500 Diastolic blood pressure 87 mm[Hg] [facility] 07-02-2023 09:02-0500 Heart rate 110 /min [facility] 07-02-2023 09:02-0500 Respiratory rate 16 /min [facility] 07-02-2023 09:02-0500 SaO2% (BldA) [Mass fraction] 98 % [facility] 07-02-2023 09:02-0500 Systolic blood pressure 149 mm[Hg] [facility] 07-02-2023 07:39-0500 Body height 160.02 cm [facility] 07-02-2023 07:39-0500 Body mass index (BMI) [Ratio] 21.4 kg/m2 [facility] 07-02-2023 07:39-0500 Body temperature 96.8 [degF] [facility] 07-02-2023 07:39-0500 Body weight 55.06 kg [facility] 06-30-2023 23:17-0500 Body height 160.02 cm [facility] 06-30-2023 23:17-0500 Body mass index (BMI) [Ratio] 21.9 kg/m2 [facility] 06-30-2023 23:17-0500 Body temperature 97.2 [degF] [facility] 06-30-2023 23:17-0500 Body weight 56.01 kg [facility] 06-30-2023 23:17-0500 Diastolic blood pressure 87 mm[Hg] [facility] 06-30-2023 23:17-0500 Heart rate 105 /min [facility] 06-30-2023 23:17-0500 Respiratory rate 18 /min [facility] 06-30-2023 23:17-0500 SaO2% (BldA) [Mass fraction] 100 % [facility] 06-30-2023 23:17-0500 Systolic blood pressure 169 mm[Hg] [facility] 07-28-2022 14:10-0500 Body temperature 98 [degF] Dr. Milind Lamb Work Phone: [facility] 07-28-2022 14:10-0500 Diastolic blood pressure 72 mm[Hg] Dr. Milind Lamb Work Phone: [facility] 07-28-2022 14:10-0500 Heart rate 86 /min Dr. Milind Lamb Work Phone: [facility] 01-22-2023 14:10-0500 Respiratory rate 18 /min Dr. Milind Lamb Work Phone: [facility] 07-28-2022 14:10-0500 SaO2% (BldA) [Mass fraction] 98 % Dr. Milind Lamb Work Phone: [facility] 07-28-2022 14:10-0500 Systolic blood pressure 124 mm[Hg] Dr. Milind Lamb Work Phone: 0(081)446-639138 [address] 07-28-2022 05:51-0500 Body weight 49.[address] Milind Lamb Work Phone: 2(662)143-950750 [place] [address] 07-26-2022 15:25-0500 Body height 160.[address] Milind Lamb Work Phone: 7(674)849-442850 [place] [address] 07-26-2022 13:53-0500 Body mass index (BMI) [Ratio] 19.3 kg/m2 Dr. Milind Lamb Work Phone: 6(766)094-275750 [place] [address] 07-26-2022 13:00-0500 Body temperature 97.4 [degF] Dr. Milind Lamb Work Phone: 9(148)548-978838 [address] 07-26-2022 13:00-0500 Diastolic blood pressure 73 mm[Hg] Dr. Milind Lamb Work Phone: 6(862)929-053738 [address] 07-26-2022 13:00-0500 Heart rate 107 /min Dr. Milind Lamb Work Phone: 8(239)571-746873 [place] [address] 07-26-2022 13:00-0500 Respiratory rate 27 /min Dr. Milind Lamb Work Phone: 7(568)768-966438 [address] 07-26-2022 13:00-0500 SaO2% (BldA) [Mass fraction] 99 % Dr. Milind Lamb Work Phone: 8(747)968-805038 [address] 07-26-2022 13:00-0500 Systolic blood pressure 138 mm[Hg] Dr. Milind Lamb Work Phone: 1(779)859-564438 [address] 07-26-2022 11:12-0500 Body height 160.[address] Milind Lamb Work Phone: [facility] 07-26-2022 11:12-0500 Body mass index (BMI) [Ratio] 21.2 kg/m2 Dr. Milind Lamb Work Phone: [facility] 07-26-2022 11:12-0500 Body weight 54.[address] Milind Lamb Work Phone: [facility] 05-03-2022 06:11-0400 Body height 160.[address] Milind Lamb Work Phone: [facility] Work Phone: 05-03-2022 06:11-0400 Body mass index (BMI) [Ratio] 21.4 kg/m2 Dr. Milind Lamb Work Phone: [facility] 05-03-2022 06:11-0400 Body temperature 98 [degF] Dr. Milind Lamb Work Phone: [facility] 05-03-2022 06:11-0400 Body weight 54.[address] Milind Lamb Work Phone: [facility] 05-03-2022 06:11-0400 Diastolic blood pressure 84 mm[Hg] Dr. Milind Lamb Work Phone: [facility] 05-03-2022 06:11-0400 Heart rate 102 /min Dr. Milind Lamb Work Phone: [facility] 05-03-2022 06:11-0400 Respiratory rate 16 /min Dr. Milind Lamb Work Phone: [facility] 05-03-2022 06:11-0400 SaO2% (BldA) [Mass fraction] 100 % Dr. Milind Lamb Work Phone: [facility] 05-03-2022 06:11-0400 Systolic blood pressure 157 mm[Hg] Dr. Milind Lamb Work Phone: [facility] 04-11-2022 08:16-0400 Body height 160.[address] Milind Lamb Work Phone: [facility] Work Phone: 04-11-2022 08:16-0400 Body mass index (BMI) [Ratio] 20.9 kg/m2 Dr. Milind Lamb Work Phone: [facility] 04-11-2022 08:16-0400 Body temperature 96.5 [degF] Dr. Milind Lamb Work Phone: [facility] 04-11-2022 08:16-0400 Body weight 53.[address] Milind Lamb Work Phone: [facility] 04-11-2022 08:16-0400 Diastolic blood pressure 81 mm[Hg] Dr. Milind Lamb Work Phone: [facility] 04-11-2022 08:16-0400 Heart rate 80 /min Dr. Milind Lamb Work Phone: [facility] 04-11-2022 08:16-0400 Respiratory rate 18 /min Dr. Milind Lamb Work Phone: [facility] 04-11-2022 08:16-0400 SaO2% (BldA) [Mass fraction] 97 % Dr. Milind Lamb Work Phone: [facility] 04-11-2022 08:16-0400 Systolic blood pressure 140 mm[Hg] Dr. Milind Lamb Work Phone: [facility] 03-06-2022 14:50-0400 Body temperature 97.9 [degF] Dr. Milind Lamb Work Phone: [facility] Work Phone: 03-06-2022 14:50-0400 Diastolic blood pressure 88 mm[Hg] Dr. Milind Lamb Work Phone: [facility] Work Phone: 03-06-2022 14:50-0400 Heart rate 91 /min Dr. Milind Lamb Work Phone: [facility] Work Phone: 03-06-2022 14:50-0400 Respiratory rate 16 /min Dr. Milind Lamb Work Phone: [facility] Work Phone: 03-06-2022 14:50-0400 SaO2% (BldA) [Mass fraction] 98 % Dr. Milind Lamb Work Phone: [facility] Work Phone: 03-06-2022 14:50-0400 Systolic blood pressure 131 mm[Hg] Dr. Milind Lamb Work Phone: [facility] Work Phone: 03-06-2022 09:27-0400 Body height 160.[address] Milind Lamb Work Phone: [facility] Work Phone: 03-06-2022 09:27-0400 Body weight 57.[address] Milind Lamb Work Phone: [facility] Work Phone: 03-03-2022 20:17-0400 Body mass index (BMI) [Ratio] 20.8 kg/m2 Dr. 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 Milind Lamb MD Work Phone: -Laboratory Phy Office 3rd Flr Start: 01-19-2025 End: 01-19-[address] Angella Boggs DO -Laboratory Phy Office 3rd Flr Start: 01-18-2025 End: 01-22-2025 ambulatory YOLI [employer] Facility:[facility] Start: 01-18-2025 End: 01-22-2025 Outreach Lab YOLI [employer] [facility] Start: 12-10-2024 Non-patient / Non-visit Dr. Ciro perrin MD -[facility] Work Phone: Start: 12-09-2024 Non-patient / Non-visit Dr. Shira Ibarra MD -[facility] Work Phone: Start: 12-09-2024 ambulatory Zelda Ibarra Facility :[facility] Start: 12-09-2024 End: 12-10-2024 Evaluation and management of inpatient Dr. Zelda Ibarra MD -Intensive Care Unit Work Phone: Start: 10-18-2024 End: 10-18-[address] Milind Lamb MD Work Phone: [facility] Work Phone: Start: 10-18-2024 End: 10-18-[address] Milind Lamb MD -Laboratory, [facility] Start: 10-18-2024 End: 10-18-2024 ambulatory Milind Lamb Facility:[facility] Start: 07-20-2024 End: 07-20-[address] Milind Lamb MD -Laboratory, [facility] Start: 07-20-2024 End: 07-20-2024 ambulatory Milind Lamb Facility:[facility] Start: 07-16-2024 End: 07-16-2024 Patient encounter procedure Nasir LIRA [facility] Work Phone: Start: 07-16-2024 End: 07-16-2024 ambulatory Nasir LIRA Facility:[facility] Start: 05-02-2024 ambulatory Ciro Fernández Facili ty:[facility] Start: 05-02-2024 End: 05-04-2024 Evaluation and management of inpatient Ciro Fernández Facility:[facility] Start: 07-29-2023 End: 07-29-2023 Emergency department patient visit Dr. Milind Lamb Work Phone: [facility]Emer[facility] Work Phone: Start: 07-18-2023 End: 08-11-[address] Milind Lamb Work Phone: [facility] Work Phone: Start: 07-18-2023 End: 08-11-[address] Milind Lamb Work Phone: [facility] Work Phone: Start: 07-18-[address] Milind Lamb Work Phone: [facility] Work Phone: Start: 07-06-2023 Non-patient / Non-visit Dr. Darek Lamb Work Phone: [facility] Work Phone: Start: 07-05-2023 Non-patient / Non-visit Dr. Darek Lamb Work Phone: [facility] Work Phone: Start: 07-04-2023 Non-patient / Non-visit Dr. Darek Lamb Work Phone: [facility] Work Phone: Start: 07-03-2023 Non-patient / Non-visit Dr. Darek Lamb Work Phone: [facility] Work Phone: Start: 07-02-2023 End: 07-06-2023 [facility] Start: 07-02-2023 Non-patient / Non-visit Dr. Darek Lamb Work Phone: [facility] Work Phone: Start: 07-02-2023 End: 07-02-2023 Emergency department patient visit [facility] Work Phone: Start: 06-30-2023 End: 07-01-2023 Emergency department patient visit [facility] Work Phone: Start: 05-21-2023 End: 05-21-2023 ambulatory [facility] Work Phone: Start: 05-21-2023 End: 05-21-2023 Patient encounter procedure [facility] Start: 07-28-2022 Non-patient / Non-visit Dr. Darek Lamb Work Phone: [facility] Start: 07-27-2022 Non-patient / Non-visit Dr. Darek Lamb Work Phone: [facility] Start: 07-26-2022 Non-patient / Non-visit Dr. Darek Lamb Work Phone: [facility] Start: 07-26-2022 End: 07-28-2022 Evaluation and management of inpatient Dr. Milind Lamb [facility] Start: 05-03-2022 End: 05-03-2022 Emergency department patient visit Dr. Milind Lamb Work Phone: [facility]Emergency [facility] Start: 04-11-2022 End: 04-11-[address] Milind Lamb Work Phone: [facility] Work Phone: Start: 04-11-2022 End: 04-11-[address] Milind Lamb Work Phone: [facility] Start: 03-08-2022 End: 03-08-[address] Milind Lamb Work Phone: [facility] Work Phone: Start: 03-08-2022 End: 03-08-[address] Milind Lamb Work Phone: [facility] Start: 03-08-[address] Milind Lamb Work Phone: [facility] Start: 03-06-2022 Non-patient / Non-visit Dr. Darek Lamb Work Phone: [facility] Start: 03-06-2022 Non-patient / Non-visit Dr. Darek Lamb Work Phone: [facility] Start: 03-05-2022 Non-patient / Non-visit Dr. Darek Lamb Work Phone: [facility] Start: 03-05-2022 Non-patient / Non-visit Dr. Darek Lamb Work Phone: [facility] Start: 03-04-2022 Non-patient / Non-visit Dr. Darek Lamb Work Phone: [facility] Start: 03-03-2022 End: 03-06-2022 Evaluation and management of inpatient Dr. Milind Lamb Work Phone: [facility] Start: 07-22-2018 End: 07-23-2018 Patient encounter procedure [facility] Facility:[facility] Procedures Date Procedure Procedure Detail Performing Clinician Start: 02-25-2025 CT of thorax, abdome n and pelvis with contrast Dr. Milind Lamb MD Work Phone: Start: 02-25-2025 Urnls dip stick/tabl et reagent auto microscopy Dr. Miilnd Lamb MD Work Phone: Start: 02-25-[address] Milind Lamb MD Work Phone: Start: 01-19-2025 Urine microalbumin/creatinine ratio measurement Dr. [...] Phone: Start: 12-08-[address] Milnid Lamb MD Work Phone: Start: 12-08-2024 Serum [...] RSV Vaccine (1 - 1-dose 75+ series) [facility] Start: 03-24-2025 End: 03-24-2025 Patient encounter procedure 03/24/2025 8:15 AM EDT Office Visit Urology [address] [place] [address] [id number] Meredith Felipe MD [address] [place] [address] kidney mass- found at [facility] 12/10 Urology Comment on above: kidney mass- found a t [facility] 12/10 Start: 03-21-2025 End: 03-21-2025 Admission to same day surgery center 03/21/2025 12:30 PM EDT - 03/21/2025 5:00 PM EDT Surgery [address] [id number] Meredith Felipe MD [address] [place] [address] XI ROBOTIC LAPAROSCOPIC NEPHRECTOMY RADICAL [facility] Comment on above: XI ROBOTIC LAPAROSCO PIC NEPHRECTOMY RADICAL Start: 03-21-2025 End: 03-21-2025 Laparoscopy radical nephrectomy 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 03/21/2025 12:30 PM EDT [place] Start: 03-21-2025 Subsequent hospital visit by physician 03/21/2025 12:30 PM EDT Hospital Encounter [address] [address] Meredith Felipe MD [address] [place] [address] 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 Start: 02-26-2025 End: 02-26-2025 [facility] Start: 02-25-2025 Bacteria identified in Urine by Culture Urine Culture [facility] Start: 02-24-2025 End: 05-26-2025 Alkaline phosphatase [Enzymatic activity/volume] in Serum or Plasma ALKALINE PHOSPHATASE Lab Routine Neoplasm of uncertain behavior of left kidney Expected: 02/24/2025, Expires: 05/26/2025 [facility] Work Phone: Comment on above: Expected: 02/24/2025 , Expires: 05/26/2025 Start: 02-24-2025 End: 05-26-2025 Basic metabolic 2000 panel - Serum or Plasma BASIC METABOLIC PANEL Lab Routine Neoplasm of uncertain behavior of left kidney Expected: 02/24/2025, Expires: 05/26/2025 [facility] Comment on above: Expected: 02/24/2025 , Expires: 05/26/2025 Start: 02-24-2025 End: 05-26-2025 Gamma glutamyl transferase [Enzymatic activity/volume] in Serum or Plasma GGT Lab Routine Neoplasm of uncertain behavior of left kidney Expected: 02/24/2025, Expires: 05/26/2025 [facility] Comment on above: Expected: 02/24/2025 , Expires: 05/26/2025 Start: 12-10-2024 [facility] Start: 12-10-2024 Patient discharge [facility] Start: 12-09-2024 End: 12-09-2024 [facility] Start: 12-09-2024 Care regimes management [facility] Start: 12-09-2024 Notification of physician [facility] Start: 12-09-2024 Assessment of risk o f venous thromboembolism [facility] Start: 12-09-2024 End: 12-09-2024 Following clinical pathway protocol [facility] Start: 12-09-2024 Incentive spirometry [facility] Start: 12-09-2024 Inhalation therapy procedure [facility] Start: 12-09-2024 Insertion of cathete r into peripheral vein [facility] Start: 12-09-2024 Introduction of urin cristy catheter [facility] Start: 12-09-2024 Lab findings surveillance [facility] Start: 12-09-2024 Measuring intake and output [facility] Start: 12-09-2024 Notification of physician [facility] Start: 12-09-2024 Oxygen therapy [facility] Start: 12-09-2024 Patient education [facility] Start: 12-09-2024 Patient referral to dietitian [facility] Start: 12-09-2024 Providing care accor ding to standard [facility] Start: 12-09-2024 Provision of activit y privileges [facility] Start: 12-09-2024 Referral to service [facility] Start: 12-09-2024 Vital signs measurements [facility] Start: 12-09-2024 [facility] Start: 12-09-2024 Verification routine [facility] Start: 12-09-2024 Admission procedure [facility] Start: 12-09-2024 Hospital admission, emergency, from emergency room, medical nature [facility] Start: 12-09-2024 Consultation [facility] Start: 12-08-2024 [facility] Start: 07-29-2023 [facility] Start: 07-06-2023 Patient discharge [facility] Start: 07-03-2023 Care regimes management [facility] Start: 07-03-2023 Notification of physician [facility] Start: 07-03-2023 [facility] Start: 07-03-2023 [facility] Start: 07-03-2023 End: 07-03-2023 Blood chemistry [facility] Start: 07-03-2023 Complete blood count [facility] Start: 07-02-2023 Blood chemistry [facility] Start: 07-02-2023 Ambulation without limitation [facility] Start: 07-02-2023 Assessment of risk o f venous thromboembolism [facility] Start: 07-02-2023 Continuous pulse oximetry [facility] Start: 07-02-2023 End: 07-02-2023 Following clinical pathway protocol [facility] Start: 07-02-2023 Incentive spirometry [facility] Start: 07-02-2023 Insertion of cathete r into peripheral vein [facility] Start: 07-02-2023 Lab findings surveillance [facility] Start: 07-02-2023 Measuring intake and output [facility] Start: 07-02-2023 Notification of physician [facility] Start: 07-02-2023 Oxygen therapy [facility] Start: 07-02-2023 Patient education [facility] Start: 07-02-2023 Patient referral to dietitian [facility] Start: 07-02-2023 Providing care accor ding to standard [facility] Start: 07-02-2023 Referral to occupati onal therapist [facility] Start: 07-02-2023 Referral to service [facility] Start: 07-02-2023 Vital signs measurements [facility] Start: 07-02-2023 [facility] Start: 07-02-2023 Verification routine [facility] Start: 07-02-2023 Admission procedure [facility] Start: 07-02-2023 End: 07-02-2023 Blood chemistry [facility] Start: 07-02-2023 [facility] Start: 07-02-2023 Bacteria identified in Urine by Culture Urine Culture [facility] Start: 07-02-2023 [facility] Start: 07-01-2023 [facility] Start: 07-28-2022 Patient discharge [facility] Start: 07-27-2022 Care regimes management [facility] Start: 07-27-2022 Notification of physician [facility] Start: 07-27-2022 [facility] Start: 07-26-2022 Assessment of risk o f venous thromboembolism [facility] Start: 07-26-2022 End: 07-26-2022 Following clinical pathway protocol [facility] Start: 07-26-2022 Insertion of cathete r into peripheral vein [facility] Start: 07-26-2022 Lab findings surveillance [facility] Start: 07-26-2022 Measuring intake and output [facility] Start: 07-26-2022 Notification of physician [facility] Start: 07-26-2022 Patient education [facility] Start: 07-26-2022 Patient referral to dietitian [facility] Start: 07-26-2022 Providing care accor ding to standard [facility] Start: 07-26-2022 Vital signs measurements [facility] Start: 07-26-2022 End: 07-26-2022 [facility] Start: 07-26-2022 Verification routine [facility] Start: 07-26-2022 Admission procedure [facility] Start: 07-26-2022 Blood chemistry [facility] Start: 07-26-2022 [facility] Start: 07-26-2022 Patient referral to dietitian [facility] Start: 05-03-2022 [facility] Start: 03-06-2022 Patient discharge [facility] Work Phone: Start: 03-05-2022 Referral to occupati onal therapist [facility] Work Phone: Start: 03-05-2022 Referral to service [facility] Work Phone: Start: 03-04-2022 Care regimes management [facility] Work Phone: Start: 03-04-2022 Notification of physician [facility] Work Phone: Start: 03-04-2022 [facility] Work Phone: Start: 03-04-2022 Consultation [facility] Work Phone: Start: 03-03-2022 End: 03-04-2022 [facility] Work Phone: Start: 03-03-2022 Application of intermittent pneumatic compression device [facility] Work Phone: Start: 03-03-2022 Aspiration precautions [facility] Work Phone: Start: 03-03-2022 Assessment of risk o f venous thromboembolism [facility] Work Phone: Start: 03-03-2022 Continuous pulse oximetry [facility] Work Phone: Start: 03-03-2022 Elevation of head of bed [facility] Work Phone: Start: 03-03-2022 Fall prevention [facility] Work Phone: Start: 03-03-2022 End: 03-03-2022 Following clinical pathway protocol [facility] Work Phone: Start: 03-03-2022 Incentive spirometry [facility] Work Phone: Start: 03-03-2022 Inhalation therapy procedure [facility] Work Phone: Start: 03-03-2022 Insertion of cathete r into peripheral vein [facility] Work Phone: Start: 03-03-2022 Introduction of urin cristy catheter [facility] Work Phone: Start: 03-03-2022 Lab findings surveillance [facility] Work Phone: Start: 03-03-2022 Measuring intake and output [facility] Work Phone: Start: 03-03-2022 Notification of physician [facility] Work Phone: Start: 03-03-2022 Oxygen therapy [facility] Work Phone: Start: 03-03-2022 Patient education [facility] Work Phone: Start: 03-03-2022 Patient referral to dietitian [facility] Work Phone: Start: 03-03-2022 Providing care accor ding to standard [facility] Work Phone: Start: 03-03-2022 Provision of activit y privileges [facility] Work Phone: Start: 03-03-2022 Referral to service [facility] Work Phone: Start: 03-03-2022 Vital signs measurements [facility] Work Phone: Start: 03-03-2022 Admission procedure [facility] Work Phone: Start: 03-03-2022 [facility] Work Phone: Start: 2012 Pneumococcal Vaccine : 50+ (1 of 1 - PCV) Pneumococcal Vaccine: 50+ (1 of 1 - PCV) [facility] Start: 2012 Shingrix Vaccine (1 of 2) Henry grix Vaccine (1 of 2) [facility] Start: 2007 Diabetes Screening Diabetes Screenin g [facility] Start: 2007 Lipid panel Lipid Screening [facility] Start: 2007 Screening for malign ant neoplasm of colon [facility] Start: 2002 Screening for malign ant neoplasm of breast Mammogram Screening [facility] Start: 1983 Screening for malign ant neoplasm of cervix Cervical Cancer Screening [facility] Start: 1981 Urine microalbumin profile DTaP,Tdap,Td Vaccine (1 - Tdap) [facility] Start: 1980 Anxiety Screening Anxiety Screening [facility] Start: 1980 Depression Screening Depression Scre ening [facility] Start: 1980 Hepatitis C screening Hepatitis C Sc [facility] Start: 1980 HIV screening HIV Screening [facility] Anion gap [facility] Anion [facility] Bilirubin measuremen t, urine [facility] BUN/Creatinine ratio [facility] BUN/Creatinine ratio [facility] BUN/Creatinine ratio [facility] BUN/Creatinine ratio [facility] Calcium [Mass/volume ] in Serum or Plasma [facility] Calcium [Mass/volume ] in Serum or Plasma [facility] Calcium [Mass/volume ] in Serum or Plasma [facility] Calcium [Mass/volume ] in Serum or Plasma [facility] Carbon dioxide, tota l [Moles/volume] in Serum or Plasma [facility] Carbon dioxide, tota l [Moles/volume] in Serum or Plasma [facility] Carbon dioxide, tota l [Moles/volume] in Serum or Plasma [facility] Carbon dioxide, tota l [Moles/volume] in Serum or Plasma [facility] Chloride [Moles/volu me] in Serum or Plasma [facility] Chloride [Moles/volu me] in Serum or Plasma [facility] Chloride [Moles/volu me] in Serum or Plasma [facility] Chloride [Moles/volu me] in Serum or Plasma [facility] Creatinine [Moles/vo lume] in Serum or Plasma [facility] Creatinine [Moles/vo lume] in Serum or Plasma [facility] Creatinine [Moles/vo lume] in Serum or Plasma [facility] Creatinine [Moles/vo lume] in Serum or Plasma [facility] Glucose [Mass/volume ] in Serum or Plasma [facility] Glucose [Mass/volume ] in Serum or Plasma [facility] Glucose [Mass/volume ] in Serum or Plasma [facility] Glucose [Mass/volume ] in Serum or Plasma [facility] Hematocrit [Volume Fraction] of Blood [facility] Hemoglobin [Mass/vol ume] in Blood [facility] Hemoglobin [Presence ] in Urine [facility] Hemoglobin A1c/Hemoglobin.total in Blood [facility] Leukocytes [#/volume ] in Blood [facility] Mean corpuscular hemoglobin concentration determination [facility] Mean corpuscular hemoglobin determination [facility] Measurement of keton es in urine using dipstick [facility] Measurement of renal function [facility] Measurement of renal function [facility] Measurement of renal function [facility] Measurement of renal function [facility] Microscopic urinalysis [facility] Patient Education [facility] Work Phone: Patient referral [facility] Work Phone: pH of Urine [facility] Platelets [#/volume] in Blood [facility] Potassium [Moles/vol ume] in Serum or Plasma [facility] Potassium [Moles/vol ume] in Serum or Plasma [facility] Potassium [Moles/vol ume] in Serum or Plasma [facility] Potassium [Moles/vol ume] in Serum or Plasma [facility] Red blood cell count [facility] Red cell distributio n width determination [facility] Sodium [Moles/volume ] in Serum or Plasma [facility] Sodium [Moles/volume ] in Serum or Plasma [facility] Sodium [Moles/volume ] in Serum or Plasma [facility] Sodium [Moles/volume ] in Serum or Plasma [facility] Specific gravity of Urine [facility] Urea nitrogen [Mass/volume] in Serum or Plasma [facility] Urea nitrogen [Mass/volume] in Serum or Plasma [facility] Urea nitrogen [Mass/volume] in Serum or Plasma [facility] Urea nitrogen [Mass/volume] in Serum or Plasma [facility] Urinalysis, blood, qualitative [facility] Urine culture [facility] Urine dipstick for glucose [facility] Urine dipstick for leukocyte esterase [facility] Urine dipstick for nitrite [facility] Urine dipstick for protein [facility] Urine examination [facility] Urine microscopy: epithelial cells [facility] Urine Microscopy: wh ite cells [facility] Urobilinogen [Presen ce] in Urine [facility] End: 03-26-2026 XR Chest PA and Lateral XR CHEST 2V FRONTAL/LAT Radiology Routine Neoplasm of uncertain behavior of left kidney 1 Occurrences starting 02/24/2025 until 03/26/2026 [facility] Comment on above: 1 Occurrences starti ng 02/24/2025 until 03/26/2026 Payers Date Payer Category Payer Medicaid [id number] 2024 Self-pay [id number] 2024 Unknown [id number] 2018 Unknown [id number] 1960 Unknown [id number] 2.16.8 [id number] 1960 Unknown [id number] 2.16. [id number] Unknown [id number] Unknown [facility] [id number] 2 [id number] Unknown [id number] 2.16.8 [id number] Unknown [id number] 2.16.8 [id number] Unknown [id number] 2.16.8 [id number] Unknown [id number] 2.16.8 [id number] Unknown [id number] 2.16.8 [id number] Unknown [id number] 2.16.8 [id number] Unknown [id number] 2.16.8 [id number] Unknown [id number] 2.16.8 [id number] Unknown [id number] 2.16.8 [id number] Unknown [id number] 2.16.8 [id number] Unknown [id number] 2.16.8 [id number] Unknown [id number] 2.16.8 [id number] Social History Date Type Detail Facility Start: 03-03-2022 End: 07-29-2023 Tobacco smoking status NHIS Unknown if ever smoked [facility] Start: 1960 Sex Assigned At Female W [facility] Start: 05-03-2024 End: 02-25-2025 Tobacco smoking status NHIS Ex-smoker (finding) [facility] Start: 08-15-2005 End: 10-22-2024 Sex Female (finding) [facility] Start: 02-10-2025 History of Social function [facility] Start: 02-10-[address] [facility] Start: 06-07-2012 National Score (1-10 0), lower number is lower risk 64 [facility] Start: 1960 Sex assigned at Not on file C [facility] Medical Equipment Procedure Code Equipment Code Equipment [...] 100, # 1 EA, 11 Refill(s), Pharmacy: [facility]/pharmacy #[id number], 161, cm, 01/18/25 9:58:00 EDT, Height, 60, kg, 01/18/25 9:58:00 EDT, Dosing Weight Start: 01-18-2025 See Instructions , qs 1 month supply, # 60 EA, 0 Refill(s), Pharmacy: [facility]/pharmacy #[id number], 161, cm, 01/18/25 9:58:00 EDT, Height, [...] Goals Date Patient Goal Desired Activity /State Personal health goal Functional Status Date Assessment Result Facility 12-10-2024 Functional status Activity Ability [facility] [place] Work Phone: 12-10-2024 Functional status Patient Activi ty Ambulates;Bathroom Privilege [facility] Work Phone: 07-06-2023 Functional status Ambulates [facility] Work Phone: 07-28-2022 Functional status Ambulates [facility] Work Phone: 03-06-2022 Functional status Chair [facility] Work Phone: Mental Status Date Assessment Result Facility 12-10-2024 Cognitive function Voice/Name [facility] Work Phone: 12-08-2024 Cognitive function Level Of Cons ciousness Awake;Alert;Appropriate;Follow s Commands [facility] Work Phone: 07-29-2023 Cognitive function Level Of Cons ciousness Awake;Alert;Appropriate;Follow s Commands [facility] Work Phone: 07-06-2023 Cognitive function Voice/Name [facility] Work Phone: 07-28-2022 Cognitive function Voice/Name [facility] Work Phone: 05-03-2022 Cognitive function Level Of Cons ciousness Awake;Alert;Appropriate;Follow s Commands [facility] Work Phone: 03-06-2022 Cognitive function Voice/Name [facility] Work Phone: Clinical Notes 05-03-2022 to 03-02-2025 Telephone Encounter - Daysi Giron - 03/02/2025 2:25 PM EDTTelephone Encounter - Daysi Giron - 03/02/2025 2:25 PM EDTMeredith Felipe MD - 02/24/2025 10:01 AM EDT Note Date & Type Note Facility 03-02-2025 Telephone encounter Note Left message for patient to call mark. [facility] 03-02-2025 Miscellaneous Notes Left message for patient to call mark. RAL Left Radical Nephrectomy Neoplasm of uncertain behavior of left kidney UCx expected by 03/11/25 Surgery: 03/21/25 12:30 PM [facility] Arrive at 10:30 AM H&P same day I will contact patient to confirm surgery details. Note: Pt is to drop off disk with imaging from 12/08/24. CXR & labs may be required after Dr. Felipe reviews. documented in this encounter [facility] 03-02-2025 Telephone encounter Note RAL Left Radical Nephrectomy Neoplasm of uncertain behavior of left kidney UCx expected by 03/11/25 Surgery: 03/21/25 12:30 PM [facility] Arrive at 10:30 AM H&P same day I will contact patient to confirm surgery details. Note: Pt is to drop off disk with imaging from 12/08/24. CXR & labs may be required after Dr. Felipe reviews. [facility] 02-26-2025 Radiology Diagnostic study note [facility] Imaging Services [address], [place] [id number] CT Chest, Abd, Pel w/Contrast MR#: [id number] Acct: [id number] Name: LINA MEADOWS Rep #: [id number] : 1960 F 64 From: Jakob Culver MD PCP: YONATAN MONTANA Status: REG ER Study:CT Chest, Abd, Pel w/Contrast Date of E xam: 02/25/25 Exam# [id number] Ordering Dr: Zane Gallardo DO PROCEDURE: CT CHEST, ABD, PEL W/CONTRAST 02/25/2025 REASON FOR EXAM: RIGHT FLANK PAIN TECHNIQUE: Chest, abdomen and pelvis CT with intravenous contrast. Coronal and Sagittal reconstruction series were provided. One or more dose reduction techniques were used (e.g., Automated exposure control, adjustment of the mA and/or kV according to patient size, use of iterative reconstruction technique. PATIENT PREPARATION: Per protocol CONTRAST: 100 cc of Isovue 370 intravenous contrast. COMPARISON: CT abdomen and pelvis 12/08/2024 FINDINGS: CT CHEST: Hardware: None. Lymph nodes: No enlarged mediastinal, hilar, or axillary lymph nodes. Heart and Vasculature: Not enlarged. No pericardial effusion. Moderate coronary artery atherosclerotic calcifications. Atherosclerotic calcifications of the thoracic aorta. Pulmonary arteries are unremarkable. Lungs and Airways: No consolidation or discrete pulmonary mass. Airways are patent. Pleura: No pleural effusion or pneumothorax. Bones: Degenerative changes of the thoracic spine. CT ABDOMEN/PELVIS: Liver: Normal size. No mass. Gallbladder: Surgically absent. No biliary ductal dilatation. Spleen: Normal size. Pancreas: Normal size without evidence of mass surrounding inflammation or ductal dilation. Adrenals: Unremarkable Kidneys: Redemonstrated large heterogenous enhancing left renal mass with central necrosis measuring 6.5 x 7.1 x 6.9 cm, findings are highly concerning for renal cell carcinoma. Right kidney unremarkable. No calculi or hydronephrosis bilaterally. Bladder: Unremarkable. Reproductive Organs: Retroverted uterus. Adnexal regions are unremarkable. Bowel: Moderate colonic stool burden suggesting constipation. No obstruction. Appendix: Normal. Lymph nodes: Unremarkable. Vasculature: The abdominal aorta and IVC are normal. Peritoneum / Retroperitoneum: No free fluid or air. Bones: No destructive osseous lesions. No acute fractures. CT/CT Chest, Abd, Pel w/Contrast IMPRESSION: 1. Redemonstrated 6.5 x 7.1 x 6.9 cm left renal mass highly concerning for renalcell carcinoma. 2. No evidence of metastatic disease in the chest, abdomen or pelvis. 3. Moderate colonic stool burden suggesting constipation. 4. No acute findings as imaged. Reading [facility] CC: Dr. Zane Gallardo DO; YONATAN MONTANA ~ Linoleum Layer: Signed [facility] 02-25-2025 Telephone encounter Note Spoke with patient about the importance of getting it done and Dr. Felipe reviewing the labs and last CXR and needing these 2 moving forward. I made her aware that she can even do both as a Walk in Basis in [place] when she figures out living situation. She verbalizes understanding of importance. [facility] 02-25-2025 Miscellaneous Notes Spoke with patient about the importance of getting it done and Dr. Felipe reviewing the labs and last CXR and needing these 2 moving forward. I made her aware that she can even do both as a Walk in Basis in [place] when she figures out living situation. She [...] call to schedule. Unable to send a Twitter message. Spoke with patient and she states that she had labs when she was overnight in [place] 12-08-2024 through the 12-10-2024. She has the CD with the imaging on it and will get ride to drop off. Spoke with [facility] and she will fax labs, and the CXR was from . Received the records. Dr. Small reviewed the labs and CXR received and he has ordered what he needs done. Please assist with scheduling CXR and labs in [place] for patient. She has transportation issues right now. Patient called to cancel her 02/24 appointment because she was recently evicted and had to cancel her Provide A Ride due to not having a pick-up address. Patient was already scheduled for 03/24 and she is hoping she can get everything straightened out by then. Thank you, Angella documented in this encounter [facility] 02-25-2025 Telephone encounter Note I spoke with the patient to [...] able to work out her ride situation. [facility] 02-25-2025 Telephone encounter Note Attempted to speak with patient to schedule, I left a voicemail for her to return our call to schedule. Unable to send a Twitter message. [facility] 02-24-2025 Note Addended by: MEREDITH FELIPE on: 02/24/2025 01:34 PM Modules accepted: Orders [facility] 02-24-2025 Miscellaneous Notes Addended by: MEREDITH FELIPE on: 02/24/2025 01:34 PM Modules accepted: Orders documented in this encounter [facility] 02-24-2025 Telephone encounter Note Spoke with patient and she states that she had labs when she was overnight in [place] 12-08-2024 through the 12-10-2024. She has the CD with the imaging on it and will get ride to drop off. Spoke with [facility] and she will fax labs, and the CXR was from . Received the records. Dr. Small reviewed the labs and CXR received and he has ordered what he needs done. Please assist with scheduling CXR and labs in [place] for patient. She has transportation issues right now. [facility] 02-24-2025 Note HNO ID: [id number] Author: MEREDITH FELIPE MD Service: ? Author Type: Physician Type: Progress Notes Filed: 02/24/2025 10:06 Note Text: Consultation requested by Dr. Salcedo primary care [...] visit. Either the patient or their legal guest service representative has been informed of the risks [...] risks such as but not limited to NM, DVT, PE, CVA, Pneumonia, C. Diff, ileus, [...] soon. No results found for this basename: uglucpoc,ubilipoc,uketonpoc,usg poc,uhbpoc,uphpoc,upropoc,uurop oc,unitpoc,uwbcpoc ,ucolpoc,uclarpoc No results found for: CREAT Medications/allergies reviewed and updated. PAST MEDICAL HISTORY Diagnosis Date Healthy adult on routine physical examination No (more content not included)... [facility] 02-24-2025 History of Presen t illness [...] visit. Either the patient or their legal guest service representative has been informed of the risks [...] risks such as but not limited to NM, DVT, PE, CVA, Pneumonia, C. Diff, ileus, [...] soon. No results found for this basename: uglucpoc,ubilipoc,uketonpoc,usg poc,uhbpoc,uphpoc,upropoc,uurop oc,unitpoc,uwbcpoc,ucolpoc,[facility] No results found for: CREAT Medications/allergies reviewed [...] disturbance, mood disorder and recent psychosocial stressors. Desmond/Lymph: Negative for prolonged bleeding, bruising easily or [...] and agrees with treatment plan. Recording using [employer] software for draft documentation of the visit was discussed with the patient/authorized guest service representative; all questions welcomed and answered. Patient/authorized guest service representative agreed to proceed Patient will call [...] evaluations. [1] [2] documented in this encounter [facility] 02-23-2025 Telephone encounter Note Patient called to cancel her 02/24 appointment because she was recently evicted and had to cancel her Provide A Ride due to not having a pick-up address. Patient was already scheduled for 03/24 and she is hoping she can get everything straightened out by then. Thank you, Angella [facility] 12-10-2024 Discharge summary Note Date/Time December 10, 2024 9:03am [facility] Medical Records Department [address] [place] [address] Discharge Summary 12/10/24 0858 MR#: [id number] Acct: [id number] Name: ThomasLINA E Rep #:[id number] : 1960 64 From: Ciro Mendosa MD PCP: Dr. Milind Lamb MD Status:ADM I N Location: [place] [address] Providers Date of Admission: 12/09/24 Date of [...] 07/28/22 pen needle, diabetic 32 gauge x /32 [...] Self Care Charges/Coding Visit Charges Inpatient E&M: 89592 Disch Hosp >30min 12/10/24 0903 <Electronically signed by Ciro Mendosa MD> Cosigner Signature (if applicable): CC: Dr. Ciro Mendosa MD; Dr. Milind Lamb MD~ Signed [facility] Work Phone: 1(506) 934-489406-06-2025 Discharge summary Author Miki Sen [facility] Note Date/Time December 10, 2024 8:29a m [facility] Medical Records Department [address] [place] [address] Emergency Department Summary 12/08/24 MR#: [id number] Acct: [id number] Name: LINA MEADOWS Rep #:[id number] : 1960 64 From: Miki Sen DO PCP: Dr. Milind Lamb MD Status:ADM I N Location: [address] ADDENDUM by Dr. Miki Sen DO on 12/10/24 at 0829 Critical care time 39 minutes 12/10/24 0829<Electronically signed by Miki Sen DO> Cosigner Signature (if applicable): cc: Dr. Milind aLmb MD ~* Signed HPI History of Present [...] to being out of her testing strips. [facility] Medical History Accelerated hypertension DKA (diabetic ketoacidosis) Sinus tachycardia seen on monitor technician Diabetic ketoacidosis associated with type 1 diabetes [...] follow commands and that she was at [facility] year is 2024 Skin: Warm, dry, tact [...] % (Auto) 67.7 Lymph % (Auto) 22.8 Humphreys % (Auto) 7.7 Eos % (Auto) 0.9 [...] Color Urine Clarity Urine pH Ur Specific [place] Urine Protein Urine Glucose (UA) Urine Ketones [...] (Auto) Neut % (Auto) Lymph % (Auto) Humphreys % (Auto) Eos % (Auto) Baso % [...] Clarity Clear Urine pH 6.0 Ur Specific [place] 1.015 Urine Protein 30 H Urine Glucose [...] 11:16 pm with readback verification. Reading Location: [facility] Discharge Plan Triage Chief Complaint: Hyperglycemia ED [...] MD [Primary Care Provider] - Print Language: Nepalese Disposition Disposition: Acute Care Hospital [facility] What to do if you have Problems For any increased pain, shortness of breath, bleeding, nausea or vomiting, chestpain, or any unexpected problems, contact your Primary Care Provider. Call [facility] ([phone]) or report to the closest Emergency Room. Call 911 if necessary. 12/09/24 0019 <Electronically signed by Miki Sen DO> Cosigner Signature (if applicable): CC: Dr. Milind Lamb MD ~ Signed [facility] Work Phone: 1(934) 707-610606-06-2025 Discharge summary [facility] Medical Records Department [address] [place] [address] Discharge Summary 12/10/24 0858 MR#: [id number] Acct: [id number] Name: LINA MEADOWS Rep #:[id number] : 1960 64 From: Ciro Mendosa MD PCP: Dr. Milind Lamb MD Status:ADM I N Location: [place] [address]903-1 Providers Date of Admission: 12/09/24 Date of [...] Self Care Charges/Coding Visit Charges Inpatient E&M: 04827 Disch Hosp >30min 12/10/24 0903 Cosigner Signature (if applicable): CC: Dr. Ciro Mendosa MD; Dr. Milind Lamb MD~ Signed [facility]06-06-2025 [facility]06-06-2025 Discharge summary [facility] Medical Records Department [address] [place] [address] Emergency Department Summary 12/08/24 MR#: [id number] Acct: [id number] Name: LINA MEADOWS Rep #:[id number] : 1960 64 From: Miki Sen DO PCP: Dr. Milind Lamb MD Status:ADM I N Location: [place] [address] Miki Sen DO on [...] to being out of her testing strips. [facility] Medical History Accelerated hypertension DKA (diabetic ketoacidosis) Sinus tachycardia seen on monitor technician Diabetic ketoacidosis associated with type 1 diabetes [...] follow commands and that she was at [facility] year is 2024 Skin: Warm, dry, tact [...] % (Auto) 67.7 Lymph % (Auto) 22.8 Humphreys % (Auto) 7.7 Eos % (Auto) 0.9 [...] Color Urine Clarity Urine pH Ur Specific [place] Urine Protein Urine Glucose (UA) Urine Ketones [...] (Auto) Neut % (Auto) Lymph % (Auto) Humphreys % (Auto) Eos % (Auto) Baso % [...] Clarity Clear Urine pH 6.0 Ur Specific [place] 1.015 Urine Protein 30 H Urine Glucose [...] 11:16 pm with readback verification. Reading Location: [facility] Discharge Plan Triage Chief Complaint: Hyperglycemia ED [...] MD [Primary Care Provider] - Print Language: Nepalese Disposition Disposition: Acute Care [facility] What to do if you have Problems For any increased pain, shortness of breath, bleeding, nausea or vomiting, chestpain, or any unexpected problems, contact your Primary Care Provider. Call [facility] ([phone]) or report tothe closest Emergency Room. Call 911 if necessary. 12/09/24 0019 Cosigner Signature (if applicable): CC: Dr. Milind Lamb MD ~ Signed [facility]06-05-2025 Progress note Author Ciro Cordovareuben [facility] Note Date/Time December 09, 2024 9:33a m [facility] Medical Records Department [address] [place] [address] Progress Note - Hospitalist 12/09/24 09 MR#: [id number] Acct: [id number] Name: LINA MEADOWS Rep #:[id number] : 1960 64 From: Ciro Mendosa MD PCP: Dr. Milind Lamb MD Status:ADM I N Location: ICU ICU-1 Reason for Visit Reason for Visit: Diagnoses [...] % (Auto) 67.7, Lymph % (Auto) 22.8, Humphreys % (Auto) 7.7, Eos % (Auto) 0.9, [...] Albumin 4.3, Globulin 3.2, Albumin/Globulin Ratio 1.4, Zkgdfy48, b-Hydroxybutyric mmol/L 7.9 H, POC Glucose > 500 H* 12/08/24 20:49: POC Glucose 491 H* 12/08/24 22:11: POC Glucose 380 H 12/08/24 22:25: Urine Color Yellow, Urine Clarity Clear, Urine pH 6.0, Ur Specific [place] 1.015, Urine Protein 30 H, Urine Glucose [...] % (Auto) 52.3, Lymph % (Auto) 34.5, Humphreys % (Auto) 9.7, Eos % (Auto) 2.7, [...] 11:16 pm with readback verification. Reading Location: [facility] Physical Exam Narrative GENERAL: cooperative but appears [...] 52 Minutes Charges/Coding Visit Charges Inpatient E&M: 63296 Subs Hosp L3 12/09/24 0933 <Electronically signed by Ciro Mendosa MD> Cosigner Signature (if applicable): CC: ~ Signed [facility] Work Phone: 1(968) 870-295806-05-2025 Progress note [facility] Medical Records Department [address] [place] [address] Progress Note - Hospitalist 12/09/24905 MR#: [id number] Acct: [id number] Name: LINA MEADOWS Rep #:[id number] : 1960 64 From: Ciro Mendosa MD PCP: Dr. Milind Lamb MD Status:ADM I N [facility] Reason for Visit Reason for Visit: Diagnoses [...] Neut% (Auto) 67.7, Lymph % (Auto) 22.8, Humphreys % (Auto) 7.7, Eos % (Auto) 0.9, [...] Albumin 4.3, Globulin 3.2, Albumin/Globulin Ratio 1.4, Znghag47, b-Hydroxybutyric mmol/L 7.9 H, POC Glucose > 500 H* 12/08/24 20:49: POC Glucose 491 H* 12/08/24 22:11: POC Glucose 380 H 12/08/24 22:25: Urine Color Yellow, Urine Clarity Clear, Urine pH 6.0, Ur Specific [place] 1.015, Urine Protein 30 H, Urine Glucose [...] Neut %(Auto) 52.3, Lymph % (Auto) 34.5, Humphreys % (Auto) 9.7, Eos % (Auto) 2.7, [...] 11:16 pm with readback verification. Reading Location: [id number] Physical Exam Narrative GENERAL: cooperative but appears [...] 52 Minutes Charges/Coding Visit Charges Inpatient E&M: 03174 [facility] Hosp 12/09/24 7632 Cosigner Signature (if applicable): CC: ~ Signed [facility]06-05-2025 History and physical note Author Zelda Ibarra [facility] Note Date/Time December 09, 2024 1:00a m [facility] Medical Records Department [address] [place] [address] H&P Exam - Hospitalist 12/09/24 0010 MR#: [id number] Acct: [id number] Name: LINA MEADOWS Rep #:[id number] : 1960 64 From: Zelda Ibarra MD PCP: Dr. Milind Lamb MD Status:ADM I N Location: ICU ICU05- HPI - General General Date of Admission: 12/09/24 Date of Service: 12/09/24 Chief Complaint: N/V/D HPI Narrative The patient is a 64 y/o F w/ PMHx: IDDM, Anxiety and Depression, Former tobacco use, Chart reported history of EtOH abuse, HTN, HLD, GERD who presents to the [facility] ED on 12/09/2024 with history of 24 [...] 1 and eventually placed on insulin drip. [facility] Medical History Sinus tachycardia seen on monitor technician Back pain Tobacco use Anxiety and depression [...] x #50 ea 07/28/22 Unknow n Rx 5/32 (BD Ultra-Fine Josefina Pen Needle) lancets 28 [...] % (Auto) 67.7, Lymph % (Auto) 22.8, Humphreys % (Auto) 7.7, Eos % (Auto) 0.9, [...] Clarity Clear, Urine pH 6.0, Ur Specific [place] 1.015, Urine Protein 30 H, Urine Glucose [...] 11:16 pm with readback verification. Reading Location: [id number] Assessment & Plan Assessment/Plan (1) Diabetic ketoacidosis: PLAN: Plan The patient is a 64 y/o F w/ PMHx: IDDM, Anxiety and Depression, Former tobacco use, Chart reported history of EtOH abuse, HTN, HLD, GERD who presents to the [facility] ED on 12/09/2024 with history of persistent [...] MCV 87.4, baseline hemoglobin most recent noted -, stable, continue to trend. #6. Anxiety and [...] prophylaxis: Lovenox. Charges/Coding Visit Charges Inpatient E&M: 46320 Init Hosp L3 12/09/24 0100 <Electronically signed by Zelda Ibarra MD> Cosigner Signature (if applicable): CC: Dr. Zelda Ibarra MD; Dr. Milind Lamb MD~ Signed [facility] Work Phone: 1(683) 588-247406-05-2025 Evaluation note* Diagnosis Onset Date Resolution Status Admit Date Abnormal computed tomography of abdomen and pelvis acute December 09 12:10am Diabetic ketoacidosis acute Dec 12:10am [facility] Work Phone: 1([phone]) [phone] Evaluation note* Diagnosis Onset Date Resolution Status Admit Date Abnormal computed tomography of abdomen and pelvis acute December 09 12:10am Diabetic ketoacidosis resolved Dec 12:10am [facility] Work Phone: 1(296) 896-331106-05-2025 History and physical note [facility] Medical Records Department [address] [place] [address] H&P Exam - Hospitalist 12/09/24 0010 MR#: [id number] Acct: [id number] Name: LINA MEADOWS Rep #:[id number] : 1960 64 From: Zelda Ibarra MD PCP: Dr. Milind Lamb MD Status:ADM I N Location: ICU ICU05-1 HPI - General General Date of Admission: 12/09/24 Date of Service: 12/09/24 Chief Complaint: N/V/D HPI Narrative The patient is a 64 y/o F w/ PMHx: IDDM, Anxiety and Depression, Former tobacco use, Chart reportedhistory of EtOH abuse, HTN, HLD, GERD who presents to the [facility] ED on 12/09/2024 with history of 24 [...] 1 and eventually placed on insulin drip. [facility] Medical History Sinus tachycardia seen on monitor technician Back pain Tobacco use Anxiety and depression [...] Neut% (Auto) 67.7, Lymph % (Auto) 22.8, Humphreys % (Auto) 7.7, Eos % (Auto) 0.9, [...] Clarity Clear, Urine pH 6.0, Ur Specific [place] 1.015, Urine Protein 30 H, Urine Glucose [...] 11:16 pm with readback verification. Reading Location: [id number] Assessment & Plan Assessment/Plan (1) Diabetic ketoacidosis: PLAN: Plan The patient is a 64 y/o F w/ PMHx: IDDM, Anxiety and Depression, Former tobacco use, Chart reportedhistory of EtOH abuse, HTN, HLD, GERD who presents to the [facility] ED on 12/09/2024 with history of persistent [...] MCV 87.4, baseline hemoglobin most recent noted -, stable, continue to trend. #6. Anxiety and [...] prophylaxis: Lovenox. Charges/Coding Visit Charges Inpatient E&M: 99746 Init Hosp L3 12/09/24 0100 Cosigner Signature (if applicable): CC: Dr. Zelda Ibarra MD; Dr. Milind Lamb MD~ Signed [facility]06-05-2025 Discharge summary [facility] Medical Records Department [address] [place] [address] Emergency Department Summary 12/08/24 MR#: [id number] Acct: [id number] Name: LINA MEADOWS Rep #:[id number] : 1960 64 From: Miki Sen DO [...] to being out of her testing strips. [facility] Medical History Accelerated hypertension DKA (diabetic ketoacidosis) Sinus tachycardia seen on monitor technician Diabetic ketoacidosis associated with type 1 diabetes [...] AC 05/04/24 02/29/24 Rx subcutaneous pen (Humalog Grover diabetes #15 mL (U-100) Insulin) lisinopril 5 [...] follow commands and that she was at [facility] year is 2024 Skin: Warm, dry, tact [...] % (Auto) 67.7 Lymph % (Auto) 22.8 Humphreys % (Auto) 7.7 Eos % (Auto) 0.9 [...] Color Urine Clarity Urine pH Ur Specific [place] Urine Protein Urine Glucose (UA) Urine Ketones [...] (Auto) Neut % (Auto) Lymph % (Auto) Humphreys % (Auto) Eos % (Auto) Baso % [...] Clarity Clear Urine pH 6.0 Ur Specific [place] 1.015 Urine Protein 30 H Urine Glucose [...] 11:16 pm with readback verification. Reading Location: [facility] Discharge Plan Triage Chief Complaint: Hyperglycemia ED [...] MD [Primary Care Provider] - Print Language: Nepalese Disposition Disposition: Acute Care Hospital [facility] What to do if you have Problems For any increased pain, shortness of breath, bleeding, nausea or vomiting, chestpain, or any unexpected problems, contact your Primary Care Provider. Call [facility] ([phone]) or report tothe closest Emergency Room. Call 911 if necessary. 12/09/24 0019 Cosigner Signature (if applicable): CC: Dr. Milind Lamb MD ~ Signed [facility]06-04-2025 Radiology Diagnostic study note [facility] Imaging Services [address] [place], [place] [id number] Abdomen/Pelvis W IV Cont ONLY MR#: [id number] Acct: [id number] Name: LINA MEADOWS Rep #: [id number] : 1960 F 64 From: Leigha Gaviria MD PCP: Dr. Milind Lamb, MD Status: REG E R Study:Abdomen/Pelvis W IV Cont ONLY Date of E xam: 12/08/24 Exam# [id number] Ordering Dr: Marvin Sen DO PROCEDURE: ABDOMEN/PELVIS [...] 11:16 pm with readback verification. Reading Location: [facility] CC: Dr. Milind Lamb MD; Dr. Miki Sen DO ~ Linoleum Layer: Signed [facility]06-04-2025 Discharge summary Author Miki Sen [facility] Note Date/Time December 09, 2024 12:19 am [facility] Medical Records Department [address] [place] [address] Emergency Department Summary 12/08/24 MR#: [id number] Acct: [id number] Name: LINA MEADOWS Rep #:[id number] : 1960 64 From: Miki Sen DO [...] to being out of her testing strips. [facility] Medical History Accelerated hypertension DKA (diabetic ketoacidosis) Sinus tachycardia seen on monitor technician Diabetic ketoacidosis associated with type 1 diabetes [...] follow commands and that she was at [facility] year is 2024 Skin: Warm, dry, tact [...] % (Auto) 67.7 Lymph % (Auto) 22.8 Humphreys % (Auto) 7.7 Eos % (Auto) 0.9 [...] Color Urine Clarity Urine pH Ur Specific [place] Urine Protein Urine Glucose (UA) Urine Ketones [...] (Auto) Neut % (Auto) Lymph % (Auto) Humphreys % (Auto) Eos % (Auto) Baso % [...] Clarity Clear Urine pH 6.0 Ur Specific [place] 1.015 Urine Protein 30 H Urine Glucose [...] 11:16 pm with readback verification. Reading Location: [facility] Discharge Plan Triage Chief Complaint: Hyperglycemia ED [...] MD [Primary Care Provider] - Print Language: Nepalese Disposition Disposition: Acute Care [facility] What to do if you have Problems For any increased pain, shortness of breath, bleeding, nausea or vomiting, chestpain, or any unexpected problems, contact your Primary Care Provider. Call [facility] ([phone]) or report to the closest Emergency Room. Call 911 if necessary. 12/09/24 0019 <Electronically signed by Miki Sen DO> Avinashigner Signature (if applicable): CC: Dr. Milind Lamb MD ~ Signed [facility] Work Phone: 1([phone]) 358-971310-29-2024 [facility]08-30-2024 [facility]01-23-2024 Discharge summary Author Reece Smith [facility] July 29, 2023 4:22pm Note Date/Time July 29, 2023 2 :09pm [facility] Medical Records Department [address] [place] [address] Emergency Department Summary 07/29/23 MR#: [id number] Acct: [id number] Name: LINA MEADOWS Rep #:[id number] : 1960 63 From: Reece Smith MD [...] (Auto) 72.9 H Lymph % (Auto) 19.3 Humphreys % (Auto) 5.7 Eos % (Auto) 1.1 [...] Clarity Clear Urine pH 6.0 Ur Specific [place] 1.020 Urine Protein Negative Urine Glucose (UA) [...] (Auto) Neut % (Auto) Lymph % (Auto) Humphreys % (Auto) Eos % (Auto) Baso % (Auto) Absolute Neuts (auto) Absolute Lymphs (auto) Nucleated RBC % Sodium Potassium Chloride Carbon Dioxide Anion Gap BUN Creatinine Estim Creat Clear Calc Est GFR (MDRD) Af Amer Est GFR (MDRD) Non-Af BUN/Creatinine Ratio Glucose Calcium Troponin I High Sens Urine Color Urine Clarity Urine pH Ur Specific [place] Urine Protein Urine Glucose (UA) Urine Ketones [...] your Primary Care Provider. Call [facility] ([phone]) or report to the closest Emergency Room. Call 911 if necessary. 07/29/231621 <Electronically signed by Reece Smith MD> Cosigner Signature (if applicable): CC: Dr. Milind Lamb MD ~ Signed [facility] Work Phone: 1(250) 164-879712-27-2023 Discharge summary Author Steven Voss [facility] July 02, 2023 8:59pm Note Date/Time July 02, 2023 7:16pm [facility] Medical Records Department [address] [place] [address] Emergency Department Summary 07/02/23 MR#: [id number] Acct: [id number] Name: LINA MEADOWS Rep #:[id number] : 1960 63 From: Steven Voss MD [...] denies cough or sputum production. Denies dyspnea [place] exertion. She denies abdominal pain, nausea, vomiting [...] Last Taken 07/25/22] flash glucose sensor (FreeStyle Monhco 2 Sensor kit) #2 ea 04/11/22 [Rx [...] (Auto) 74.0 H Lymph % (Auto) 20.1 Humphreys % (Auto) 4.6 Eos % (Auto) 0.1 [...] Clarity Clear Urine pH 5.0 Ur Specific [place] 1.020 Urine Protein 30 H Urine Glucose [...] follows: Interpretation: Sinus Tachycardia (Rate is 113. WI interval is 138 ms. QRS durations 88 ms. QT duration 344 ms. [place] is normal. There is nonseptic changes which [...] insulin to treat DKA), Discussing w/Patient &/or Family/Weight Guesser, Discussing w/Consultants and Arranging Admission or Transfer Discharge Plan Dx/Rx/DC Orders Clinical Impression: Pyuria, Back pain, Diabetic ketoacidosis associated with type 1 diabetes mellitus, Elevated serum creatinine, Sinus tachycardia by electrocardiogram Disposition Disposition: [facility] What to do if you have Problems For any increased pain, shortness of breath, bleeding, nausea or vomiting, chestpain, or any unexpected problems, contact your Primary Care Provider. Call [employer] [facility] ([phone]) or report to the closest Emergency Room. Call 911 if necessary. 07/02/232058 <Electronically signed by Steven Voss MD> Cosigner Signature (if applicable): CC: Dr. Milind Lamb MD ~ Signed [facility] Work Phone: 1(777) 668-932912-27-2023 Hospital Discharge instructions Additional Instructions Ice 20 minutes on, 20 minutes off. Do not do heat. Perform lumbar stretching exercises as shown at bedside and on discharge paperwork. If nosebleed starts again, hold 20 minutes on continuous pressure, if bleeding does not stop, return to the ER for reevaluation. Use yjop-hkq-mumxslg MiraLAX twice a day for the next 3 to 4 days for good bowel relief. Use wqky-tgp-dwxlwgf magnesium citrate or mineral oil 1-2 bottles a day for the next 2 days to help with the bowels as well. Use either cjod-pos-mppqsph Motrin, Advil, ibuprofen or Naprosyn daily to help with pain and inflammation. Follow-up and establish PCP for formal physical therapy if neededWCleveland [facility] Luther[facility] Work Phone: [phone]) 863-192801-22-[address] Jopperi [facility] July 28, 2022 2:11pm Note Date/Time July 28, 2022 2 :11pm [facility] Medical Records Department [address] [place] [address] Discharge Summary 07/28/22 1409 MR#: [id number] Acct: [id number] Name: LINA MEADOWS Rep #:[id number] : 1960 62 From: Sanjiv Ahumada DO PCP: Dr. Milind Lamb MD Status:ADM I N [id number] Prov[facility] Date of Admission: 07/26/22 Date of [...] Freq: Status: Active Protocol: Document 07/26/22 15:35 [facility] (Rec: 07/26/22 15:35 [facility] [id number]) Nutrition Malnutrition Evidence of Malnutrition Exists Yes [...] mg PO BID Referrals / Follow Up: [facility] [Provider Group] - Within 1 Month Milind Lamb MD [Primary Care Provider] - Within 2 Weeks Disposition Disposition (needs filled in before D/C Order can be placed): Home, Self Care Charges/Coding Visit Charges Inpatient E&M: 59486 Disch Hosp >30min 07/28/22 1411 <Electronically signed by Sanjiv Ahumada DO> Cosigner Signature (if applicable): CC: Dr. Sanjiv Ahumada DO; Dr. Milind Lamb MD~ Signed [facility] Work Phone: 1(445) 630-548801-22-[address] Ahumada [facility] July 28, 2022 2:09pm Note Date/Time July 28, 2022 2 :02pm [facility] Medical Records Department [address] [place] [address] Instructions for Home/Discharge Instructions 07/28/22 1402 MR#: [id number] Acct: [id number] Name: LINA MEADOWS Rep #:[id number] : 1960 62 From: Sanjiv Ahumada DO [...] mg PO BID Referrals / Follow Up: [facility] [Provider Group] - Within 1 Month Milind Lamb MD [Primary Care Provider] - Within 2 Weeks Disposition Disposition (needs filled in before D/C Order can be placed): Home, Self Care 07/28/22 1409<Electronically signed by Sanjiv Ahumada DO>Sanjiv Ahumada DO CC: Dr. Milind Lamb MD ~ Signed [facility] Work Phone: 1(643) 937-110401-21-[address] Ahumada [facility] July 27, 2022 2:19pm Note Date/Time July 27, 2022 7 :43am [facility] Medical Records Department [address] [place] [address] Progress Note - Hospitalist 07/27/22 0739 MR#: [id number] Acct: [id number] Name: LINA MEADOWS Rep #:[id number] : 1960 62 From: Sanjiv Ahumada DO PCP: Dr. Milind Lamb MD Status:ADM I N Location: [place] [address] Subjective Subjective Feels well. Objective Data Objective [...] 07/26/22 15:35 [facility] (Rec: 07/26/22 15:35 [facility] [id number]) Nutrition Malnutrition Evidence of Malnutrition Exists Yes [...] 79.8 H, Lymph % (Auto) 12.1 L, Humphreys % (Auto) 5.0, Eos % (Auto) 0.1, [...] Clarity Clear, Urine pH 6.5, Ur Specific [place] 1.015, Urine Protein 30 H, Urine Glucose [...] % (Auto) 58.4, Lymph % (Auto) 29.5, [place]re[place] % (Auto) 10.3 H, Eos % (Auto) [...] oral agents. Charges/Coding Visit Charges Inpatient E&M: 24685 Subs Hosp L2 07/27/22 0082 <Electronically signed by Sanjiv Ahumada DO> Cosigner Signature (if applicable): CC: ~ Signed [facility] Work Phone: 1(149) 405-732501-20-2023 History and physical note Author Dr. Ahumada [facility] July 26, 2022 1:45pm Note Date/Time July 26, 2022 1 :45pm [facility] Medical Records Department [address] [place] [address] H&P Exam - Hospitalist 07/26/22 1340 MR#: [id number] Acct: [id number] Name: LINA MEADOWS Rep #:[id number] : 1960 62 From: Sanjiv Ahumada DO [...] The hospitalist service was contacted for admission. [facility] Medical History Anxiety and depression COVID-19 Diabetes [...] 79.8 H, Lymph % (Auto) 12.1 L, [place] % (Auto) 5.0, Eos % (Auto) 0.1, [...] PLAN: Plan VTE prophylaxis with enoxaparin. 07/26/22 9554 <Electronically signed by Sanjiv Ahumada DO> Cosigner Signature (if applicable): CC: Dr. Sanjiv Ahumada DO; Dr. Milind Lamb MD~ Signed [facility] Work Phone: 1([phone]) 943-101301-20-[address] Voss [facility] July 26, 2022 12:19pm Note Date/Time July 26, 2022 1 1:41am [facility] Medical Records Department [address] [place] [address] Emergency Department Summary 07/26/22 MR#: [id number] Acct: [id number] Name: LINA MEADOWS Rep #:[id number] : 1960 62 From: Steven Voss MD [...] 79.8 H Lymph % (Auto) 12.1 L Humphreys % (Auto) 5.0 Eos % (Auto) 0.1 [...] Interpretation: Sinus Tachycardia (Heart rate is 111. WI interval is 188 ms. Cures duration 92 ms. QT duration during 26 ms. [place] is normal. There isartifact noted. There may [...] creatinine, Tachypnea Disposition Disposition: Acute Care [facility] What to do if you have Problems For any increased pain, shortness of breath, bleeding, nausea or vomiting, chestpain, or any unexpected problems, contact your Primary Care Provider. Call [facility] ([phone]) or report to the closest Emergency Room. Call 911 if necessary. 07/26/22 1219 <Electronically signed by Steven Voss MD> Cosigner Signature (if applicable): CC: Dr. Milind Lamb MD ~ Signed [facility] Work Phone: 1(776) 940-805001-20-[address] Voss [facility] July 26, 2022 12:19pm Note Date/Time July 26, 2022 1 1:41am [facility] Medical Records Department [address] [place] [address] Emergency Department Summary 07/26/22 MR#: [id number] Acct: [id number] Name: LINA MEADOWS Rep #:[id number] : 1960 62 From: Steven Voss MD [...] 79.8 H Lymph % (Auto) 12.1 L Humph[place] % (Auto) 5.0 Eos % (Auto) 0.1 [...] Interpretation: Sinus Tachycardia (Heart rate is 111. WI interval is 188 ms. Cures duration 92 ms. QT duration during 26 ms. [place] is normal. There isartifact noted. There may [...] creatinine, Tachypnea Disposition Disposition: Acute Care [facility] What to do if you have Problems For any increased pain, shortness of breath, bleeding, nausea or vomiting, chestpain, or any unexpected problems, contact your Primary Care Provider. Call [facility] ([phone]) or report to the closest Emergency Room. Call 911 if necessary. 07/26/22 1219 <Electronically signed by Steven Voss MD> Cosigner Signature (if applicable): CC: Dr. Milind Lamb MD ~ Signed [facility] Work Phone: [phone]) 103-610811-01-2022 Hospital Discharge instructions Additional Instructions Use lnjj-dje-zvnysvv cold and flu medicine to help with your symptoms. You can use sugar-free cough drops. Use the inhaler given to you 1 to 2 puffs every 4-6 hours as needed for shortness of breath or cough. Drink lots of fluids.[facility] Work Phone: [phone]) 729-958210-28-2022 Hospital Discharge instructions Additional Instructions Use utzs-gow-cyexolc cold and flu medicine to help with your symptoms. You can use sugar-free cough drops. Use the inhaler given to you 1 to 2 puffs every 4-6 hours as needed for shortness of breath or cough. Drink lots of fluids.[facility] Work Phone: Discharge summary Author Dr. Ahumada [facility] July 28, 2022 2:09pm Note Date/Time July 28, 2022 2 :02pm [facility] Medical Records Department [address] [place] [address] Instructions for Home/Discharge Instructions 07/28/22 1402 MR#: [id number] Acct: [id number] Name: LINA MEADOWS Rep #:[id number] : 1960 62 From: Sanjiv Ahumada DO [...] mg PO BID Referrals / Follow Up: [facility] [Provider Group] - Within 1 Month Milind Lamb MD [Primary Care Provider] - Within 2 Weeks Disposition Disposition (needs filled in before D/C Order can be placed): Home, Self Care 07/28/22 1409<Electronically signed by Sanjiv Ahumada DO>Sanjiv Ahumada DO CC: Dr. Milind Lamb MD ~ Signed [facility] Work Phone: [facility] July 28, 2022 2:11pm Note Date/Time July 28, 2022 2 :11pm [facility] Medical Records Department [address] [place] [address] Discharge Summary 07/28/22 1409 MR#: [id number] Acct: [id number] Name: LINA MEADOWS Rep #:[id number] : 1960 62 From: Sanjiv Ahumada DO PCP: Dr. Milind Lamb MD Status:ADM I N [facility] Providers Date of Admission: 07/26/22 Date of [...] Document 07/26/22 15:35 [facility] (Rec: 07/26/22 15:35 [facility] [id number]) Nutrition Malnutrition Evidence of Malnutrition Exists Yes [...] mg PO BID Referrals / Follow Up: [facility] [Provider Group] - Within 1 Month Milind Lamb MD [Primary Care Provider] - Within 2 Weeks Disposition Disposition (needs filled in before D/C Order can be placed): Home, Self Care Charges/Coding Visit Charges Inpatient E&M: 80567 Disch Hosp >30min 07/28/22 1411 <Electronically signed by Sanjiv Ahumada DO> Cosigner Signature (if applicable): CC: Dr. Sanjiv Ahumada DO; Dr. Milind Lamb MD~ Signed [facility] Work Phone: evaluation + Plan note Future Appointments Appointment Date:04/20/2025 10:00:00 AM Scheduled Provider:YOLI CLARK Location:[facility] Appointment Type:PC OV Follow Up [facility] Evaluation note* Diagnosis Onset Date Resolution Status Acute dehydration acute Acute kidney injury acute DKA (diabetic ketoacidosis) acute History of alcoholism acute Pancreatitis [facility] Work Phone: Evaluation note* Diagnosis Onset Date Resolution Status DKA (diabetic ketoacidosis) acute History of alcoholism acute Acute dehydration resolved Acute kidney injury resolved Pancreatitis resolved Diabetes acute Hypokalemia acute [facility] Work Phone: Evaluation note* Diagnosis Onset Date Resolution Status Diabetes acute Hypokalemia acute Diabetic keto-acidosis acute Elevated serum creatinine ac [place] Sinus tachycardia acute Tachypnea acute [facility] Work Phone: Evaluation note* Diagnosis Onset Date Resolution Status Diabetes acute Hypokalemia acute Diabetic keto-acidosis acute Elevated serum creatinine ac [place] Hypokalemia acute Sinus tachycardia acute Tachypnea acute BRITTNI (acute kidney injury) re solved [facility] Work Phone: Evaluation noteNo assessment information available [facility] Work Phone: Evaluation note* Diagnosis Onset Date Resolution Status Back pain acute Diabetic ketoacidosis associ ated with type 1 diabetes mellitus acute Elevated serum creatinine ac [place] Pyuria acute Sinus tachycardia by electrocardiogram acute [facility] Work Phone: Evaluation note* Diagnosis Onset Date Resolution Status Diabetic keto-acidosis resol yin Elevated serum creatinine re solved Sinus tachycardia by electrocardiogram resolved [facility] Work Phone: Evaluation note* Diagnosis Onset Date Resolution Status Admit Date Abnormal computed tomography of abdomen and pelvis acute December 09 12:32am Diabetic ketoacidosis acute Dec 12:32am [facility] Work Phone: Evaluation note* Diagnosis 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 Neoplasm of uncertain behavior of kidney and ureter Neoplasm of uncertain behavior of left kidney Neoplasm of uncertain behavior of kidney and ureter documented in this encounter [facility] course Narrative No data available for this section [facility] Hospital Discharge instructions Additional Instructions Is [...] Please return to emergency room for repeat examination.[facility] Work Phone: Hospital Discharge instructions No data available for this section [facility] Hospital Discharge instructionsAdditional Instructions Images placed on a disk for you. Chest abdomen pelvis performed. No chest mass. Left renal mass 7.1 cm previously 6.6 cm. UA and urine with signs of infection. Culture sent. Take antibiotic prescribed. Follow-up with Dr. Felipe urology as scheduled for discussion of intervention.[facility] Work Phone: Progress note No data available for this section [facility] Reason for referral (narrative)No reason for referral information availableWCleveland Clinic Luther[facility] Hospital Work Phone: Summary Purpose Family History No Family History Records Found Relationship Condition Age at Onset Recorded Date/T afia mother Diabetes mellitus Unknown father Diabetes mellitus Unknown Malignant neoplasm Unknown Advance Directives No Advanced Directives Records Found Advance Directive Response Recorded Date/ Time Living Will No March 03 8:17pm Power of Skein Drier No March 03 022 8:17pm Advance Directive Response Recorded Date/ Time Living Will No May 03 6:14am Power of Skein Drier No May 03, 2022 6:14am Advance Directive Response Recorded Date/ Time Living Will No July 26 11:33am Power of Skein Drier No July 26, 2022 11:33am Advance Directive Response Recorded Date/ Time Living Will No July 26 2:20pm Power of Skein Drier No July 26, 2022 2:20pm Advance Directive Response Recorded Date/ Time Living Will No July 01, 2 023 12:05am Power of Skein Drier No July 01, 2023 12:05am Advance Directive Response Recorded Date/ Time Living Will No July 02, 2 023 8:26am Power of Skein Drier No July 02, 2023 8:26am Advance Directive Response Recorded Date/ Time Living Will No July 02, 2 023 7:15pm Power of Skein Drier No July 02, 2023 7:15pm Advance Directive Response Recorded Date/ Time Living Will No July 29 1:01pm Power of Skein Drier No July 29, 2023 1:01pm Advance Directive Response Recorded Date/ Time Do you have a Healthcare Power of Skein Drier? No December 08, 2024 7:55pm Advance Directive Response Recorded Date/ Time Do you have a Healthcare Power of Skein Drier? No December 09, 2024 1:00am Advance Directive Response Recorded Date/ Time Do you have a Healthcare Power of Skein Drier? No December 09, 2024 1:00am Do you have a Healthcare Power of Skein Drier? No February 25, 2025 10:00pm Chief Complaint and Reason for Visit Chief [...] Admit Date PE NON DOT DRUG SCREEN/ [facility] July 16, 2024 11:46am Chief Complaint Admit [...] Diabetic ketoacidosis December 09, 2024 12: 10am Chief Complaint Admit Date DKA December 09, 2024 12:10 am DKA December 09, 2024 12:32 am DKA December 10, 2024 8:58a m flank pain February 25, 2025 9: 00pm Additional Source Comments INFORMATION SOURCE (unrecogn ized section and content) DATE CREATED AUTHOR 07/29/2018 Formerly [facility] ([place]) DATE CREATED AUTHOR AUTHOR'S ORGANIZ ATION 01/25/[address] [facility] DATE CREATED AUTHOR AUTHOR'S ORGANIZ ATION 02/26/2025 [facility] DATE CREATED AUTHOR AUTHOR'S ORGANIZ ATION 03/03/2025 [facility] DATE CREATED AUTHOR AUTHOR'S ORGANIZ ATION 03/04/2025 [facility] Care Teams (unrecognized sec tion and [...] Dr. Nola Gleason DO Attending Provider, Emergency Hilaria benites Active Team Status: Active Member Role Status [...] Status: Inactive Member Role Status Dates Dr. Milidn Lamb MD Primary Care Provider Active Dr. [...] July 16, 2024 End: July 16, 2024 Nasir LIRA PA Attending Provider Active Sta rt: July 16, [...] Active St art: December 10, 2024 Dr. Cior Mendosa MD Attending Provider Active Start: December 10, 2024 Dr. Ciro Mendosa MD Other Provider Active Star t: December 10, 2024 Team Status: Inactive Member Role/Relationship Status Dates Dr. Milind Lamb MD Primary Care Provider Active Start: January 19, 2025 End: January 19, 2025 Dr. Angella Boggs DO Attending Provider Active Start: January 19, 2025 End: January 19, 2025 Team Status: Active Member Role/Relationship Status Dates YONATAN MONTANA Primary Care Provider Active Team Status: Inactive [...] End: January 19, 2025 Dr. Angella Boggs DO Attending Provider Active Start: January 19, 2025 End: January 19, 2025 Team Status: Inactive Member Role/Relationship Status Dates Dr. Zane Gallardo DO Emergency Provider Active Start : February 25, 2025 End: February 26, 2025 YONATAN MONTANA Primary Care Provider Active Start: February 25, 2025 End: February 26, 2025 Goals (unrecognized section and content) Goals [...] or prosecute any alcohol or drug abuse patient.[facility] the event this information is protected by the Federal Confidentiality of Alcohol and Drug Abuse Patient Records regulations: The Federal rules restrict any use of the information to criminally investigate or prosecute any alcohol or drug abuse patient.[facility] the event this information is protected by the Federal Confidentiality of Alcohol and Drug Abuse Patient Records regulations: The Federal rules restrict any use of the information to criminally investigate or prosecute any alcohol or drug abuse patient.[facility] Hospital[facility] the event this information is protected by the Federal Confidentiality of Alcohol and Drug Abuse Patient Records regulations: The Federal rules restrict any use of the information to criminally investigate or prosecute any alcohol or drug abuse patient.[facility] Reason for Visit (unrecogniz ed section and content) Reason Comments Kidney Problem Reason Comments Appointment Patient Update Reason Comments Surgery Scheduled FOR RECORDS PERTAINING TO PATIENTS WHO ARE [...] BE BASED ON THE PRIMARY CLINICAL RECORDS. [facility] [facility] provides no warranty or guarantee of the accuracy or completeness of information in this document.
[2025-03-04 19:10] VITALS: BP 155/76; PULSE 76; RESP 18; TEMP 37.1; O2SAT 99
[2025-03-04 19:11] LABS: SITE Not entered; VBG BASE EXCESS 0 mmol/L (-1.0-3.5); VBG PO2 28 mmHg (25-40); VBG SO2 55 % (50-70); VBG TCO2 25 mmol/L (23-33)
[2025-03-04 19:24] LABS: Hematocrit 29.9 % (37-47); Hemoglobin 9.7 g/dL (12.0-15.0); Immature Granulocytes Count 0.000 X10^3/uL (0.0-0.0); Mean Corp Hgb Conc 32.4 g/dL (32-36); Mean Corpuscular Volume 90.6 fL (81-99); NRBC Flagged by Analyzer 0 % (0-5); POSITIVE COUNT YES; RBC Distribution Width CV 13.1 % (11.6-14.6); RBC Distribution Width SD 43.4 fl (35.1-43.9); Red Blood Count 3.30 M/mm3 (4.2-5.4); White Blood Count 4.6 K/mm3 (4.4-11.0)
[2025-03-04] MEDS: 0.9% Normal Saline (1000mL) 1,000 ML 1000 ML IV (19:40)
[2025-03-04 19:42] LABS: BETA-HYDROXYBUTYRATE 0.5 mmol/L (0.0-0.3)
[2025-03-04 20:25] VITALS: BP 164/77; PULSE 80; RESP 22; TEMP 36.9; O2SAT 97
[2025-03-04 20:38] LABS: Anion Gap 14 (5-15); BUN 13 mg/dL (4-19); BUN/Creat Ratio 13.9 RATIO (10-20); Calcium,Total 9.3 mg/dL (7.6-11.0); Carbon Dioxide 20.5 mmol/L (21.0-32.0); Chloride 98 mmol/L (98-108); Estimated Creatinine Clearance 51.33 ml/min (50-250); Glucose 572 mg/dL (70-99); Potassium 3.9 mmol/L (3.3-5.1)
[2025-03-04 21:11] LABS: Differential Indicated SCAN CRITERIA MET
[2025-03-04 21:12] LABS: Differential Comment SCANNED
[2025-03-04 22:00] LABS: Mucous, Urine 0 SEEN /hpf (<or=2+); Red Blood Cells-Urine 0 SEEN /hpf (0-5)
[2025-03-04 22:20] LABS: Color, Urine Straw (Yellow); Glucose, Dipstick 1000 mg/dl (Normal); Ketone-Dipstick 5 mg/dl (Negative); Leukocyte Esterase-Dipstick Negative /ul (Negative); Nitrite-Dipstick Negative (Negative); Occult Blood-Urine Negative /ul (Negative); Protein-Dipstick Negative (Negative); Specific Gravity, Urine 1.010 (1.002-1.030); Urine Bilirubin Dipstick Negative (Negative)
[2025-03-04 22:38] VITALS: BP 134/73; PULSE 79; RESP 18
[2025-03-04 23:04] VITALS: BP 134/73; PULSE 79; RESP 18; TEMP 36.9; O2SAT 97
[2025-03-04 23:17] LABS: Squamous Epithelial Cells - UA 0-5 SEEN /hpf (5-10)
== END 2025-03-04 23:05 | disposition home or self-care (01) ==
PROVIDERS: Emergency Provider Emergency Medicine; PCP Nurse Practitioner Adult Health; Visit Provider Emergency Medicine
DX: R19.7 Diarrhea, unspecified (principal); E11.65 Type 2 diabetes mellitus with hyperglycemia; Z79.4 Long term (current) use of insulin; R11.0 Nausea; Z87.891 Personal history of nicotine dependence; F41.8 Other specified anxiety disorders; Z79.899 Other long term (current) drug therapy; Z79.84 Long term (current) use of oral hypoglycemic drugs; I10 Essential (primary) hypertension; Z98.51 Tubal ligation status
CPT/HCPCS: 80048; 81001; 82010; 82803; 82962; 83605; 85025; 96361; 96374; 99283; J2405

== ENCOUNTER 2025-03-17 13:55 | Emergency (ER) | payer MEDICAID, SELFPAY ==
[2025-03-17 13:56] VITALS: BP 156/85; PULSE 107; RESP 18; TEMP 36.6; O2SAT 100; BMI 22.6
--- NOTE | 2025-03-17 14:15 | EX.ED.DYSGE1 ---
HPI History of Present Illness Chief Complaint: Flank Pain Informant: patient Onset/Context/Timing Onset: Today Context: Gradual Onset Timing: Continuous Quality: Stabbing, aching Location: Left flank Worsened by: Standing and ambulating Relieved by: Laying down Narrative Narrative: Patient presents with left flank pain that began today. Patient describes it as stabbing and aching. Patient states it is worse when she is standing and walking. Patient states it is better when she is able to lay down. Patient has a known mass on her left kidney. Patient has not been able to follow-up with urology for this. Patient states she was at a [place] on a [place]. Patient states that when she was climbing down from the bunk 4 days ago, she hit her right lower ribs on the bed frame. Patient states she felt a pop at that time. Patient states this pain is improving. Patient admits to some nausea, vomiting, and diarrhea. Patient admits to some urinary frequency but denies any dysuria or hematuria. [facility] Medical History Mass of left kidney Sinus tachycardia seen on transition coach Back pain Tobacco use Anxiety and depression GERD (gastroesophageal reflux disease) HTN (hypertension) Diabetes mellitus, type 2 History of alcoholism COVID-19 Home Medications ?Medication ?Instructions ?Recorded ?Last Taken ?Type flash glucose sensor (FreeStyle #2 ea 04/11/22 Unknown Rx Moncho 2 Sensor kit) blood-glucose meter (FreeStyle #1 ea 07/28/22 Unknown Rx Lite Meter kit) lancets 28 gauge (FreeStyle #100 ea 07/28/22 Unknown Rx Lancets) pen needle, diabetic 32 gauge x #50 ea 07/28/22 Unknown Rx 5/32 (BD Ultra-Fine Josefina Pen Needle) lancets 28 gauge (FreeStyle #100 ea 07/06/23 Unknown Rx Lancets) sertraline 50 mg tablet 50 mg PO DAILY depression 05/02/24 03/16/25 History blood sugar diagnostic (FreeStyle #100 ea 05/04/24 Unknown Rx Lite Strips) lisinopril 5 mg tablet 5 mg PO DAILY #30 tabs 05/04/24 03/16/25 Rx metformin 1,000 mg tablet 1,000 mg PO DAILY #30 tabs 05/04/24 03/16/25 Rx insulin glargine U-300 conc 300 40 unit subcut QHS 12/08/24 03/16/25 History unit/mL (1.5 mL) subcutaneous pen (Toujeo SoloStar U-300 Insulin) rosuvastatin 5 mg tablet 10 mg PO DAILY 12/08/24 03/16/25 History insulin lispro 100 unit/mL 10 unit (0.1 mL) subcut TIDAC 12/10/24 03/16/25 Rx subcutaneous pen (Humalog ElíasPen diabetes #15 mL (U-100) Insulin) Allergy/AdvReac Type Severity Reaction Status Date / Time No Known Allergies Allergy Verified 03/17/25 13:58 Family History Mother Diabetes Father Diabetes Cancer Hx mesothelioma. Surgical History Status post tubal ligation Social History household members: other details: Lives with her son. Her son is also an alcoholic. Smoking Status: Former smoker alcohol intake: current alcohol intake frequency: 0-2 drinks per day Alcohol type: wine details: Prior heavy EtOH abuse, now max 1 glass wine, last 2 wks prior (12/09/24) substance use type: does not use ROS ROS ED Constitutional Constitutional ED: Denies chills or fever(s) Eyes Eyes: Denies blurry vision or change in vision ENT ENT ED: Reports rhinorrhea; Denies sore throat Cardiovascular Cardiovascular: Denies chest pain or palpitations Respiratory/Chest Respiratory/Chest: Reports cough; Denies dyspnea Gastrointestinal Gastrointestinal: Reports diarrhea, nausea and vomiting Genitourinary Genitourinary ED: Reports urinary frequency; Denies dysuria or hematuria Musculoskeletal Musculoskeletal: Reports back pain; Denies neck pain Integumentary Denies abscess or rash Neurologic Neurologic: Denies headache(s) or weakness Allergic/Immunologic Allergic/Immunologic ED: Denies mouth swelling or urticaria EXAM Physical Exam Const Vital Signs: 03/17/25 13:56 03/17/25 14:56 03/17/25 14:57 Temperature 97.8 F Temperature Source Oral Pulse Rate 107 H 90 90 Respiratory Rate 18 16 16 Blood Pressure 156/85 H 162/76 H 162/76 H Blood Pressure Mean 108 104 104 Pulse Ox 100 100 100 Oxygen Delivery Method Room Air Room Air Room Air 03/17/25 16:00 Temperature Temperature Source Pulse Rate 94 Respiratory Rate 16 Blood Pressure 157/85 H Blood Pressure Mean 109 Pulse Ox 100 Oxygen Delivery Method Room Air Positive well nourished and well developed General Appearance ED: well developed and NAD HEENT Reports moist mucous membranes Neck supple and no JVD Chest Wall Chest Narrative: There is tenderness over the right lower ribs. There is no subcutaneous emphysema palpated. There is no bony crepitance or step-off. Resp normal respiratory effort and clear to auscultation bilaterally Cardio regular rate and regular rhythm GI non-distended Palpation: soft and tender epigastric, LUQ and RUQ; Negative for guarding or rebound tenderness present Back/Spine General Back: CVA tenderness left Extremity normal to inspection Neuro oriented x3, CN's II-XII intact bilaterally and no sensory deficits noted Sensorium / Orientation: alert Motor Exam: strength 5/5 throughout Psych mental status grossly normal MDM MDM MDM Narrative Medical decision making narrative: Differential diagnosis includes diabetic ketoacidosis, urinary tract infection, dehydration, electrolyte abnormality, renal calculus, renal mass, pyelonephritis, pancreatitis, and anxiety. CBC will be obtained to assess for leukocytosis and anemia. Comprehensive metabolic profile will be obtained to assess for electrolyte abnormality, hepatic function, and renal function. Lipase will be obtained to assess for pancreatitis. CT scan of the abdomen and pelvis will be obtained to assess for renal mass, ureteral calculus, and pancreatitis. Urinalysis will be obtained to assess for urinary tract infection and hematuria. Lab Data Attestation: I reviewed the patient's lab results. Lab results narrative: CBC was reviewed. There is a mild anemia with a hemoglobin of 10.3 hematocrit 30.9. The remainder is within normal limits. Comprehensive metabolic profile was reviewed. Glucose was minimally elevated at 305. Alkaline phosphatase was slightly elevated at 105. Lipase was reviewed and was normal at 28. Urinalysis was reviewed. There is no evidence of urinary tract infection or hematuria. Labs: Laboratory Results - last 24 hr 03/17/25 03/17/25 14:30 16:30 WBC 6.5 RBC 3.53 L Hgb 10.3 L Hct 30.9 L MCV 87.5 MCH 29.2 MCHC 33.3 RDW Std Deviation 41.6 RDW Coeff of Nellie 13.1 Plt Count 248 MPV 12.1 H Immature Gran % (Auto) 0.300 Neut % (Auto) 65.4 Lymph % (Auto) 24.5 [place] % (Auto) 7.8 Eos % (Auto) 1.4 Baso % (Auto) 0.6 Absolute Neuts (auto) 4.3 Absolute Lymphs (auto) 1.60 Nucleated RBC % 0 Sodium 135 Potassium 4.2 Chloride 99 Carbon Dioxide 22.0 Anion Gap 13 BUN 16 Creatinine 0.97 Estim Creat Clear Calc 49.74 L Est GFR (MDRD) Non-Af 66 BUN/Creatinine Ratio 16.3 Glucose 305 H Calcium 9.5 Total Bilirubin 0.32 AST 16 ALT 8 Alkaline Phosphatase 105 H Total Protein 7.3 Albumin 4.3 Globulin 3.0 Albumin/Globulin Ratio 1.4 Lipase 28 Urine Color Yellow Urine Clarity Clear Urine pH 6.0 Ur Specific [place] 1.010 Urine Protein 30 H Urine Glucose (UA) 100 H Urine Ketones Negative Urine Occult Blood Negative Urine Nitrite Negative Urine Bilirubin Negative Urine Urobilinogen Normal Ur Leukocyte Esterase 25 H Urine RBC 0 SEEN Urine WBC 0-5 SEEN Ur Squamous Epith Cells 0-5 SEEN Urine Bacteria 0 SEEN Hyaline Casts 0-5 SEEN Urine Mucus 0 SEEN Radiography Diagnostic Testing: Clinical Impression(s) from Imaging Studies Abdomen/Pelvis CT 03/17/25 14:23 IMPRESSION: Once again, there is evidence of a 6.2 cm 6.4 cm heterogeneous mass arising from the mid and lower pole region of the left kidney. This is unchanged. Mild degree of perinephric stranding. Neoplastic process should be ruled out. Multiple small gallstones. Reading Location: [id number] scan of the abdomen and pelvis was obtained. There is a 6.2 cm x 6.4 cm mass in the mid and lower pole region of the left kidney. This is unchanged. There is mild degree of perinephric stranding. This was interpreted by the radiologist was also independently reviewed by myself. Treatment and Re-Evaluation :: Patient was given IV fluids, morphine, and Zofran. Patient feeling better on reevaluation. Patient was advised of the findings. Patient was instructed to follow-up with urology as scheduled. Patient was instructed to return if worse in any way. Patient understood and was agreeable with the plan. All questions were answered. Discharge Plan Triage Chief Complaint: Flank Pain ED Provider: Sanjiv Marcial Dx/Rx/DC Orders Clinical Impression: Acute left flank pain, Left renal mass Instructions: ED Flank Pain with Uncertain Cause Prescriptions: No Action (DME) FreeStyle Moncho 2 Sensor Kit See Rx Instructions .Route Qty: 2 5RF Rx Instructions: As directed (DME) lancets [FreeStyle Lancets] 28 gauge misc See Rx Instructions .Route Qty: 100 0RF Rx Instructions: As directed (DME) pen needle, diabetic [BD Ultra-Fine Josefina Pen Needle] 32 gauge x 5/32 needle See Rx Instructions .ROUTE .MEDSUPPLY Qty: 50 5RF Rx Instructions: daily (DME) blood-glucose meter [FreeStyle Lite Meter] Kit See Rx Instructions .Route Qty: 1 0RF Rx Instructions: As directed (DME) lancets [FreeStyle Lancets] 28 gauge misc See Rx Instructions .Route Qty: 100 0RF Rx Instructions: As directed sertraline 50 mg tablet 50 mg PO DAILY lisinopril 5 mg Tablet 5 mg PO DAILY Qty: 30 2RF metformin 1,000 mg tablet 1,000 mg PO DAILY Qty: 30 2RF (DME) FreeStyle Lite Strips Strip See Rx Instructions .Route Qty: 100 2RF Rx Instructions: As directed insulin glargine U-300 conc [Toujeo SoloStar U-300 Insulin] 300 unit/mL (1.5 mL) insulin pen 40 unit subcut QHS rosuvastatin 5 mg tablet 10 mg PO DAILY insulin lispro [Humalog KwikPen Insulin] 100 unit/mL Insulin Pen 10 unit subcut TIDAC Qty: 15 3RF Primary Care Provider: YOLI CLARK Referrals: YOLI CLARK CRNP [Primary Care Provider] - 5-7 Days Print Language: Amharic Disposition Disposition: Home, Self Care
--- NOTE | 2025-03-17 14:23 | CT_ITS ---
PROCEDURE: ABDOMEN/PELVIS W IV CONT ONLY 03/17/2025 REASON FOR EXAM: FLANK PAIN Left flank pain. History of left renal mass. TECHNIQUE: Procedure Code: [id number] Modality: CT Procedure: ABDOMEN/PELVIS W IV CONT ONLY Coronal and Sagittal reconstruction series were provided. CONTRAST: Isovue-300 VOLUME: 100 mL One or more dose reduction techniques were used (e.g., Automated exposure control, adjustment of the mA and/or kV according to patient size, use of iterative reconstruction technique. RADIATION DOSE SUMMARY: CTDlvol: 7.25 mGy DLP: 235.26 mGycm COMPARISON: Prior study dated February 25, 2025. FINDINGS: Lung bases: Lung bases are clear. Liver: Normal size. No mass. Gallbladder: Multiple small gallstones. Spleen: Normal size. Pancreas: Normal size without evidence of mass surrounding inflammation or ductal dilation. Adrenals: Unremarkable Kidneys: Diffuse enlargement of the left kidney. There is a 6.2 cm by 6.4 cm heterogeneous mass arising from the mid and lower pole region of the left kidney. This is unchanged. Mild degree of left perinephric stranding. Bladder: Unremarkable Reproductive Organs: Unremarkable Bowel: Unremarkable Appendix: Unremarkable Lymph nodes: No significant lymph nodes are seen. Vasculature: The abdominal aorta and IVC are normal. Peritoneum / Retroperitoneum: Unremarkable Bones: Mild degree of disc space narrowing at the L5-S1 level. CT/Abdomen/Pelvis W IV Cont ONLY IMPRESSION: Once again, there is evidence of a 6.2 cm 6.4 cm heterogeneous mass arising fro m the mid and lower pole region of the left kidney. This is unchanged. Mild degree of perinephric stranding. Neoplastic process should be ruled out. Multiple small gallstones. Reading Location: [id number]
[2025-03-17 14:40] LABS: Hematocrit 30.9 % (37-47); Hemoglobin 10.3 g/dL (12.0-15.0); Immature Granulocytes Count 0.020 X10^3/uL (0.0-0.0); Mean Corp Hgb Conc 33.3 g/dL (32-36); Mean Corpuscular Volume 87.5 fL (81-99); Mean Platelet Vol. 12.1 fl (6.2-12.0); NRBC Flagged by Analyzer 0 % (0-5); Platelet Count 248 K/mm3 (150-450); RBC Distribution Width CV 13.1 % (11.6-14.6); RBC Distribution Width SD 41.6 fl (35.1-43.9); Red Blood Count 3.53 M/mm3 (4.2-5.4); White Blood Count 6.5 K/mm3 (4.4-11.0)
[2025-03-17] MEDS: 0.9% Normal Saline (1000mL) 1,000 ML 1000 ML IV ×2 (14:44→16:32)
[2025-03-17 14:56] VITALS: BP 162/76; PULSE 90; RESP 16; O2SAT 100
[2025-03-17 14:57] VITALS: BP 162/76; PULSE 90; RESP 16; O2SAT 100
[2025-03-17 15:04] LABS: AST(SGOT) 16 U/L (<=31); Alanine Aminotransfer ALT/SGPT 8 U/L (<=34); Albumin, Serum 4.3 g/dL (3.4-4.8); Alkaline Phosphatase 105 U/L (35-104); Anion Gap 13 (5-15); BUN 16 mg/dL (4-19); BUN/Creat Ratio 16.3 RATIO (10-20); Calcium,Total 9.5 mg/dL (7.6-11.0); Carbon Dioxide 22.0 mmol/L (21.0-32.0); Chloride 99 mmol/L (98-108); Estimated Creatinine Clearance 49.74 ml/min (50-250); Globulin 3.0 g/dL (2.2-4.2); Glucose 305 mg/dL (70-99); Lipase 28 U/L (13-75); Potassium 4.2 mmol/L (3.3-5.1)
[2025-03-17 16:00] VITALS: BP 157/85; PULSE 94; RESP 16; O2SAT 100
[2025-03-17 16:38] LABS: Mucous, Urine 0 SEEN /hpf (<or=2+); Red Blood Cells-Urine 0 SEEN /hpf (0-5)
[2025-03-17 16:43] LABS: Color, Urine Yellow (Yellow); Glucose, Dipstick 100 mg/dl (Normal); Ketone-Dipstick Negative (Negative); Leukocyte Esterase-Dipstick 25 /ul (Negative); Nitrite-Dipstick Negative (Negative); Occult Blood-Urine Negative /ul (Negative); Protein-Dipstick 30 mg/dl (Negative); Specific Gravity, Urine 1.010 (1.002-1.030); Urine Bilirubin Dipstick Negative (Negative)
[2025-03-17 16:51] LABS: Squamous Epithelial Cells - UA 0-5 SEEN /hpf (5-10)
[2025-03-17 17:00] VITALS: BP 163/85; O2SAT 99
[2025-03-17 17:37] VITALS: BP 163/85; PULSE 94; RESP 16; TEMP 36.6; O2SAT 99
== END 2025-03-17 17:45 | disposition home or self-care (01) ==
PROVIDERS: Emergency Provider Emergency Medicine; PCP Nurse Practitioner Adult Health; Visit Provider Emergency Medicine
DX: R10.9 Unspecified abdominal pain (principal); E11.9 Type 2 diabetes mellitus without complications; Z79.4 Long term (current) use of insulin; R11.2 Nausea with vomiting, unspecified; R19.7 Diarrhea, unspecified; R35.0 Frequency of micturition; D64.9 Anemia, unspecified; N28.89 Other specified disorders of kidney and ureter; I10 Essential (primary) hypertension; K21.9 Gastro-esophageal reflux disease without esophagitis; Z79.84 Long term (current) use of oral hypoglycemic drugs; Z79.899 Other long term (current) drug therapy; Z87.891 Personal history of nicotine dependence
CPT/HCPCS: 74177; 80053; 81001; 83690; 85025; 96361; 96374; 96375; 99283; Q9967; A4216; J2405

== ENCOUNTER → 2025-04-08 | Outpatient (CLI) | payer MEDICAID, SELFPAY ==
[2025-04-08 13:28] LABS: Alkaline Phosphatase 125 U/L (35-104); Anion Gap 27 (5-15); BUN 16 mg/dL (4-19); BUN/Creat Ratio 14.7 RATIO (10-20); Calcium,Total 9.8 mg/dL (7.6-11.0); Carbon Dioxide 12.1 mmol/L (21.0-32.0); Chloride 91 mmol/L (98-108); Glucose 561 mg/dL (70-99); Potassium 4.7 mmol/L (3.3-5.1)
[2025-04-09 03:07] LABS: GGTP 17 IU/L (0-60)
== END | disposition home or self-care (01) ==
LOC: LAB 11:20
PROVIDERS: PCP Nurse Practitioner Adult Health
DX: D41.02 Neoplasm of uncertain behavior of left kidney (principal)
CPT/HCPCS: 36415; 80048; 82977; 84075

== ENCOUNTER 2025-05-01 14:50 | Inpatient (IN) | payer MEDICAID, SELFPAY ==
[2025-05-01] VITALS (12 sets, daily range): BP systolic 105–150; BP diastolic 50–77; PULSE 100–109; RESP 16–21; TEMP 36.4; O2SAT 99–100; BMI 20.9
--- NOTE | 2025-05-01 15:01 | EDS_ITS ---
HPI History of Present Illness Chief Complaint: Hyperglycemia Narrative Narrative: Patient is a 65-year-old female presenting to the emergency department for high blood sugar at home. Patient has a past medical history of type 2 diabetes, hypertension, hyperlipidemia, BRITTNI. Patient had a possible cancerous mass on her left kidney that was removed 3 weeks ago at [facility] By Dr. Parada. Not on current chemo or radiation. States that she was doing well after the surgery. States that over the past few 2 to 3 days she has had nausea, vomiting and no appetite. Reports that her Dexcom has been reading high. She has been using her insulin as prescribed. She reports an episode of chest pain earlier when she got up from the couch. Reports that she felt like her heart was pounding and felt midsternal chest pain that only lasted for a few seconds. Endorses mild shortness of breath. Denies any abdominal pain. Denies dysuria or hematuria. Reports 1 episode of diarrhea yesterday but otherwise has been having normal bowel movements. Denies any known fever or chills. States that her surgical site has been healing well, no drainage, redness or warmth from it. No one sick around her that she knows of. Reports alcohol use in the past but states she hasn't drank in a while. [facility] Medical History Mass of left kidney Sinus tachycardia seen on post hole digger Back pain Tobacco use Anxiety and depression GERD (gastroesophageal reflux disease) HTN (hypertension) Diabetes mellitus, type 2 History of alcoholism COVID-19 Home Medications ?Medication ?Instructions ?Recorded ?Last Taken ?Type flash glucose sensor (FreeStyle #2 ea 04/11/22 Unknown Rx Moncho 2 Sensor kit) blood-glucose meter (FreeStyle #1 ea 07/28/22 Unknown Rx Lite Meter kit) lancets 28 gauge (FreeStyle #100 ea 07/28/22 Unknown R x Lancets) pen needle, diabetic 32 gauge x #50 ea 07/28/22 Unknow n Rx (BD Ultra-Fine Josefina Pen Needle) lancets 28 gauge (FreeStyle #100 ea 07/06/23 Unknown R x Lancets) sertraline 50 mg tablet 50 mg PO DAILY depression 03/16/25 History blood sugar diagnostic (FreeStyle #100 ea 05/04/24 Unk nown Rx Lite Strips) lisinopril 5 mg tablet 5 mg PO DAILY #30 tabs 05/0403/16/25 Rx metformin 1,000 mg tablet 1,000 mg PO DAILY #30 tabs 1 03/16/25 Rx insulin glargine U-300 conc 300 46 unit subcut QHS 10/2903/16/25 History unit/mL (1.5 mL) subcutaneous pen (Toujeo SoloStar U-300 Insulin) rosuvastatin 5 mg tablet 10 mg PO DAILY 12/08/2403/07 History insulin lispro 100 unit/mL 10 unit (0.1 mL) subcut TID AC 12/10/24 03/16/25 Rx subcutaneous pen (Humalog KwikPen diabetes #15 mL (U-100) Insulin) acetaminophen 500 mg tablet 1,000 mg PO Q6H PRN pain 1 Unknown History (Acetaminophen Extra Strength) Allergy/AdvReac Type Severity Reaction Status Date / Time No Known Allergies Allergy Verified 03/17/25 13:58 Family History Mother Diabetes Father Diabetes Cancer Hx mesothelioma. Surgical History Status post tubal ligation Social History household members: other details: Lives with her son. Her son is also an alcoholic. Smoking Status: Former smoker alcohol intake: current alcohol intake frequency: 0-2 drinks per day Alcohol type: wine details: Prior heavy EtOH abuse, now max 1 glass wine, last 2 wks prior (12/09/24) substance use type: does not use ROS ROS ED ROS Narrative see HPI EXAM Physical Exam Narrative Exam Narrative: Vital signs: Reviewed General: Alert and oriented x 3. No acute distress HEENT: Head is normocephalic and atraumatic, sinuses nontender, pupils equal round and reactive. Nares are patent. Oropharynx and throat exams normal. Dry mucous membranes. Neck: Supple without lymphadenopathy nontender Cardiovascular: Tachycardic rate and regular rhythm, no murmurs. No rubs or gallops. Normal S1 and S2 Respiratory: Clear to auscultation bilaterally. No wheezes, rales, rhonchi Abdominal: Soft and nontender. Normal bowel sounds. No guarding or rebound. Nonsurgical abdomen. Healing surgical incision on left sided abdomen. No erythema, warmth, drainage or fluctuance from the wound. Extremities: No lower extremity edema. No tenderness. No bruising. Normal range of motion. Normal sensation. Skin: No rash or redness. Neurological: Cranial nerves II through XII are grossly intact. Normal strength and sensation. Normal cerebellar function The rest of the physical exam is unremarkable Const Vital Signs: 05/01/25 14:51 05/01/25 14:58 05/01/25 15:35 Temperature 97.5 F L Temperature Source Oral Pulse Rate 108 H 106 H Respiratory Rate 16 21 H Respiratory Effort Normal Non-Labored Blood Pressure 150/76 H 145/57 H Blood Pressure Mean 100 86 Pulse Ox 100 100 Oxygen Delivery Method Room Air Room Air 05/01/25 17:00 05/01/25 19:18 05/01/25 20:44 Temperature 97.5 F L 97.6 F L Temperature Source Oral Pulse Rate 100 109 H 102 H Respiratory Rate 20 H 19 H 20 H Respiratory Effort Blood Pressure 139/57 H 136/77 H 129/71 H Blood Pressure Mean 84 96 90 Pulse Ox 100 100 100 Oxygen Delivery Method Room Air 05/01/25 21:00 Temperature Temperature Source Pulse Rate 106 H Respiratory Rate 19 H Respiratory Effort Blood Pressure 110/65 Blood Pressure Mean 78 Pulse Ox 99 Oxygen Delivery Method MDM MDM MDM Narrative Medical decision making narrative: Patient is a 65-year-old female presenting to the emergency department for high blood sugars and feeling unwell for the past 2 to 3 days. Patient was seen and examined. Vitals are stable. Patient resting bed comfortably in no acute distress. Differential includes but is not limited to: DKA, HHS, dehydration, section including viral illness, UTI, pneumonia, ACS, intra-abdominal infection postop CBC with no leukocytosis and chronic anemia of 11.3. VBG with metabolic acidosis with a pH of 7.155 and bicarb of 7.9. Consistent with suspicion for DKA. EKG shows sinus tachycardia and PACs at a rate of 104 with no ischemic changes. No dysrhythmia. No peaked T waves. At 4:32 PM, CMP still not back however received by lab. Unable to start insulin drip until potassium results. Normal saline fluid bolus going at this time. CMP with pseudohyponatremia of 130, adjusted sodium of 142. Bicarb of 8.1, anion gap of 32, beta hydroxybutyrate of 12.4 consistent with DKA. Potassium of 5.5. Magnesium of 2.7. Phosphorus of 5.4. DKA insulin nomogram started. Half- normal saline maintenance fluids started given sodium level. Acute renal failure with BUN of 35 and creatinine of 2.36. GFR of 23, will obtain CT abd without contrast to evaluate for intraabdominal pathology given recent nephrectomy. Lactate within normal limits at 1.4. Initial troponin of 15. Urinalysis with glucose and ketones consistent with DKA. No evidence of infection. Chest x-ray reviewed by myself with no opacities, pneumothorax or wide mediastinum. Radiology read with no acute radiographic abnormality. CT shows postoperative changes of recent left nephrectomy. No unexpected findings. Unenhanced [place] right kidney is grossly unremarkable. No hydronephrosis. Cholelithiasis. No findings to suggest acute cholecystitis. Patient was updated on the lab and imaging findings. Explained need for admission for insulin drip and DKA management. Patient agreeable. Admitted to hospitalist, Dr. Fernández. Clinical impression DKA ARF chronic anemia History & Record Review Discussion w/independent historian: Patient Additional record(s) reviewed:: Prior labs Lab Data Attestation: I reviewed the patient's lab results. Labs: Laboratory Results - last 24 hr 05/01/25 05/01/25 05/01/25 15:09 16:00 17:48 WBC 8.5 RBC 3.89 L Hgb 11.3 L Hct 36.5 L MCV 93.8 MCH 29.0 MCHC 31.0 L RDW Std Deviation 45.1 H RDW Coeff of Nellie 13.2 Plt Count 342 MPV 12.2 H Immature Gran % (Auto) 0.700 Neut % (Auto) 80.1 H Lymph % (Auto) 13.7 L [place] % (Auto) 3.9 Eos % (Auto) 0.5 Baso % (Auto) 1.1 H Absolute Neuts (auto) 6.8 Absolute Lymphs (auto) 1.17 Nucleated RBC % 0 Sodium 130 L Potassium 5.5 H Chloride 90 L Carbon Dioxide 8.1 L* Anion Gap 32 H BUN 35 H Creatinine 2.36 H Estim Creat Clear Calc 20.18 L Est GFR (MDRD) Non-Af 23 L BUN/Creatinine Ratio 14.8 Glucose 852 H* Lactic Acid 1.4 Calcium 10.4 Phosphorus 5.4 H Magnesium 2.7 H Total Bilirubin < 0.15 AST 7 ALT 7 Alkaline Phosphatase 121 H Troponin T High Sens 15 H Troponin T Hi Sens 2 Hr Troponin T Hi Sens 4Hr Total Protein 7.7 Albumin 4.1 Globulin 3.7 Albumin/Globulin Ratio 1.1 b-Hydroxybutyric mmol/L 12.4 H Urine Color Yellow Urine Clarity Clear Urine pH 6.0 Ur Specific [place] 1.015 Urine Protein 30 H Urine Glucose (UA) 1000 H Urine Ketones 150 A* Urine Occult Blood 10 H Urine Nitrite Negative Urine Bilirubin Negative Urine Urobilinogen Normal Ur Leukocyte Esterase 100 H Urine RBC 0-5 SEEN Urine WBC 10-25 SEEN Ur Squamous Epith Cells 0-5 SEEN Urine Bacteria RARE Urine Mucus 0 SEEN POC Glucose > 500 H* 05/01/25 05/01/25 05/01/25 17:58 18:57 19:15 WBC RBC Hgb Hct MCV MCH MCHC RDW Std Deviation RDW Coeff of Nellie Plt Count MPV Immature Gran % (Auto) Neut % (Auto) Lymph % (Auto) [place] % (Auto) Eos % (Auto) Baso % (Auto) Absolute Neuts (auto) Absolute Lymphs (auto) Nucleated RBC % Sodium 133 Potassium 4.5 Chloride 97 L Carbon Dioxide 5.7 L* Anion Gap 31 H BUN Creatinine Estim Creat Clear Calc Est GFR (MDRD) Non-Af BUN/Creatinine Ratio Glucose 708 H* Lactic Acid Calcium Phosphorus Magnesium Total Bilirubin AST ALT Alkaline Phosphatase Troponin T High Sens Troponin T Hi Sens 2 Hr 17 H Troponin T Hi Sens 4Hr Total Protein Albumin Globulin Albumin/Globulin Ratio b-Hydroxybutyric mmol/L Urine Color Urine Clarity Urine pH Ur Specific [place] Urine Protein Urine Glucose (UA) Urine Ketones Urine Occult Blood Urine Nitrite Urine Bilirubin Urine Urobilinogen Ur Leukocyte Esterase Urine RBC Urine WBC Ur Squamous Epith Cells Urine Bacteria Urine Mucus POC Glucose > 500 H* > 500 H* 05/01/25 05/01/25 05/01/25 20:03 20:27 21:22 WBC RBC Hgb Hct MCV MCH MCHC RDW Std Deviation RDW Coeff of Nellie Plt Count MPV Immature Gran % (Auto) Neut % (Auto) Lymph % (Auto) [place] % (Auto) Eos % (Auto) Baso % (Auto) Absolute Neuts (auto) Absolute Lymphs (auto) Nucleated RBC % Sodium Potassium Chloride Carbon Dioxide Anion Gap BUN Creatinine Estim Creat Clear Calc Est GFR (MDRD) Non-Af BUN/Creatinine Ratio Glucose Lactic Acid Calcium Phosphorus Magnesium Total Bilirubin AST ALT Alkaline Phosphatase Troponin T High Sens Troponin T Hi Sens 2 Hr Troponin T Hi Sens 4Hr 20 H Total Protein Albumin Globulin Albumin/Globulin Ratio b-Hydroxybutyric mmol/L Urine Color Urine Clarity Urine pH Ur Specific [place] Urine Protein Urine Glucose (UA) Urine Ketones Urine Occult Blood Urine Nitrite Urine Bilirubin Urine Urobilinogen Ur Leukocyte Esterase Urine RBC Urine WBC Ur Squamous Epith Cells Urine Bacteria Urine Mucus POC Glucose 497 H* 403 H ABG Data ABG results: ABG 05/01/25 15:58 Specimen Type LIZY Sample Site Not entered VBG pH 7.16 L* VBG pO2 40 VBG HCO3 8 L VBG Total CO2 9 L VBG O2 Sat (Calc) 61 VBG Base Excess -21 L POC Mix VBG pCO2 Pt Tmp 22.5 L O2 Delivery Device Not entered Crit Call To/Read Back Yes Blood Gas Notified Whom fritz Blood Gas Notified Time 16:00:35 Radiography Diagnostic Testing: Clinical Impression(s) from Imaging Studies Chest X-Ray 05/01/25 17:03 IMPRESSION: NO ACUTE FINDINGS. Reading Location: [facility] [place] [facility] Abdomen/Pelvis CT 05/01/25 17:24 IMPRESSION: 1. Postoperative changes of recent left nephrectomy. No unexpected findings. 2. Unenhanced [place] right kidney is grossly unremarkable. No hydronephrosis. 3. Cholelithiasis. No findings to suggest acute cholecystitis. Reading Location: [facility] Discharge Plan Disposition Disposition: Acute Care Hospital [facility] Discharge Date/Time: 05/01/25 21:50
--- OUTSIDE RECORDS SUMMARY | 2025-05-01 15:39 | XMS RPT_ITS | CCD ---
Author Organization [facility] Care Team Providers Care Security Analyst Name Role Phone SUMMER ALVES Attending Unavailable [...] Admit Provider Dr. Torsten Sutton Attending Provider Dr. Torsten Sutton Other Provider Dr. Sanjana Quigley Attending Provider [...] RICH, Dr. Tanner Attending Provider Unavaila ble Navya RICH, Dr. 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 Angella Boggs DO Attending Provider MAST BRIDGE IRONWORKER HELPER-NIPPLE MAKER, GLORY Attending Unavailabl e MAST BRIDGE IRONWORKER HELPER-NIPPLE MAKER, GLORY Primary Care Unavailabl e Unavailable Primary Care Provider Unavaildo Lamb MD, Dr. Vaz Primary Care Provider [phone] Dr. Zane Gallardo DO Emergency Provider [phone] MAST SET DESIGNER, GLORY Primary Care Provider Dr. Zane Gallardo DO Attending Provider [phone] Sanjiv Marcial DO Emergency Provider Aniket CARY, Dr. Kincaid Attending Provider Lamb, Milind Referring Unavailable Lamb, Milind Attending Unavailable Lamb, Milind Primary Care Unavailable MAST, GLORY Primary Care Unavailable Zane Gallardo Attending Unavailable MAST, GLORY Primary Care Unavailable Sanjiv Marcial Attending Unavailable Ciro Fernández Attending Unavailable Ciro Fernández Consulting Unavailable Ciro Fernández Admitting Unavailable Lamb, Milind Primary Care Unavailable Koram, Sanjana Ruby Attending Unavailable Koram, Sanjana Ruby Consulting Unavailable White, Zelda L Attending Unavailable White, Zelda L Consulting Unavailable White, Zelda L Admitting Unavailable Lamb, Milind Primary Care Unavailable KitCiro neil Attending Unavailable White, Zelda L Consulting Unavailable White, Zelda L Admitting Unavailable Lamb, Milind Primary Care Unavailable KittoeCiro Consulting Unavailable Nasir Norris Attending Unavailable Lamb, Milind Referring Unavailable Lamb, Milind Primary Care Unavailable SchwigerSanjiv Attending Unavailable MAST, GLORY Primary Care Unavailable Lamb, Milind Referring Unavailable Lamb, Milind Attending Unavailable Lamb, Milind Primary Care Unavailable Angella Boggs Attending Unavailable Lamb, Milind Primary Care Unavailable de Ciro Ramírez Consulting Unavailable Ciro Fernández Admitting Unavailable Koram, Sanjana Beltran Attending Unavailable Lamb, Milind Primary Care Unavailable Ciro Mendosa Attending Unavailable White, Zelda L Consulting Unavailable White, Zelda L Admitting Unavailable Lamb, Milind Primary Care Unavailable MAST, GLORY Primary Care Unavailable SOYENRICO ABDIIN Referring Unavailable NEHA OLIVIER Attending Unavailable MEREDITH FELIPE Attending Unavailable MEREDITH FELIPE Admitting Unavailable MAST, GLORY Primary Care Unavailable MEREDITH FELIPE Referring Unavailable MEREDITH FELIPE Referring Unavailable MAST, GLORY Primary Care Unavailable MEREDITH FELIPE Attending Unavailable MAST, GLORY Referring Unavailable MAST, GLORY Primary Care Unavailable MEREDITH FELIPE Attending Unavailable Allergies Allergy Classification Reported Allergen(s) Allergy Type Date of Onset Reaction(s) Facility (6 sources) Latex; Translations: [LATEX] Drug Allergy 07-09-2012 [facility] Medications Current Medications Medication Drug Class(es) Dates Sig (Normalized) Sig (Original) Blood-Glucose Meter (Freestyle Lite Meter) kit (14 sources) Start: 07-28-2022 Blood-Glucose Meter (Freestyle Lite Meter) kit Active 0 .Route 1 July 28, 2022 1:00am Type 2 diabetes mellitus Type 2 diabetes mellitus without complications blood sugar As directed Start: 07-28-2022 Blood-Glucose Meter (Freestyle Lite Meter) kit Active 0 .Route July 28, 2022 1:00am As directed Start: 07-28-2022 Blood-Glucose Meter (Freestyle Lite Meter) kit Active 0 .Route July 28, 2022 12:00am As directed Urobilinogen Ql (U) Normal mg/dl Normal [facility] Work Phone: XR ELBOW MINIMUM 3 [...] AM Sign Date: 07/22/2018 9:20:04 AM Normal [facility] ([place]) No Panel Information SARS-CoV-2 & FLU Antigen (Rapid) [facility] Work Phone: SARS-CoV-2 (COVID-19) Ag IA. rapid Ql (Resp) SARS-CoV-2 Antigen (Rapid) SARS-CoV-2 (COVID 19) [facility] Work Phone: Vital Signs Date Time Vital Sign Value Performing Clinician Faci lity 03-17-2025 17:37-0400 Body temperature 97.8 [degF] Dr. Milind Lamb MD Work Phone: [facility] 03-17-2025 17:37-0400 Diastolic blood pressure 85 mm[Hg] Dr. Milind Lamb MD Work Phone: [facility] 03-17-2025 17:37-0400 Heart rate 94 /min Dr. Milind Lamb MD Work Phone: [facility] 03-17-2025 17:37-0400 Respiratory rate 16 /min Dr. Milind Lamb MD Work Phone: [facility] 03-17-2025 17:37-0400 SaO2% (BldA) [Mass fraction] 99 % Dr. Milind Lamb MD Work Phone: [facility] 03-17-2025 17:37-0400 Systolic blood pressure 163 mm[Hg] Dr. Milind Lamb MD Work Phone: 6(324)331-166377 [place] [id number] 03-17-2025 13:56-0400 Body height 160.[address] Milind Lamb MD Work Phone: 5(779)094-508875 [place] [address] 03-17-2025 13:56-0400 Body mass index (BMI) [Ratio] 22.6 kg/m2 Dr. Milind Lamb MD Work Phone: 9(845)022-895875 [place] [address] 03-17-2025 13:56-0400 Body weight 58.[address] Milind Lamb MD Work Phone: 0(063)924-820577 [place] [id number] 03-04-2025 23:04-0400 Body temperature 98.5 [degF] Dr. Milind Lmab MD Work Phone: 0(288)305-539777 [address] 03-04-2025 23:04-0400 Diastolic blood pressure 73 mm[Hg] Dr. Milind Lamb MD Work Phone: 0(823)207-150677 [place] [id number] 03-04-2025 23:04-0400 Heart rate 79 /min Dr. Milind Lamb MD Work Phone: [facility] 03-04-2025 23:04-0400 Respiratory rate 18 /min Dr. Milind Lmab MD Work Phone: [facility] 03-04-2025 23:04-0400 SaO2% (BldA) [Mass fraction] 97 % Dr. Milind Lamb MD Work Phone: [facility] 03-04-2025 23:04-0400 Systolic blood pressure 134 mm[Hg] Dr. Milind Lamb MD Work Phone: 9(857)061-209777 [place] [id number] 03-04-2025 18:06-0400 Body height 160.[address] Milind Lamb MD Work Phone: 6(058)107-745077 [place] [id number] 03-04-2025 18:06-0400 Body mass index (BMI) [Ratio] 23.7 kg/m2 Dr. Milind Lamb MD Work Phone: 5(176)192-742275 [place] [address] 03-04-2025 18:06-0400 Body weight 60.[address] Milind Lamb MD Work Phone: 7(764)856-767475 [place] [address] 02-26-2025 00:29-0400 Body temperature 97.9 [degF] Dr. Milind Lamb MD Work Phone: 1(962)089-149375 [place] [address] 02-26-2025 00:29-0400 Diastolic blood pressure 65 mm[Hg] Dr. Milind Lamb MD Work Phone: 5(181)402-031975 [place] [address] 02-26-2025 00:29-0400 Heart rate 72 /min Dr. Milind Lamb MD Work Phone: 5(376)339-434775 [place] [address] 02-26-2025 00:29-0400 Respiratory rate 18 /min Dr. Milind Lamb MD Work Phone: 0(513)449-661575 [place] [address] 02-26-2025 00:29-0400 SaO2% (BldA) [Mass fraction] 97 % Dr. Milind Lamb MD Work Phone: 0(657)174-901875 [place] [address] 02-26-2025 00:29-0400 Systolic blood pressure 122 mm[Hg] Dr. Milind Lamb MD Work Phone: 5(633)405-869075 [place] [address] 02-25-2025 21:04-0400 Body height 160.[address] Milind Lamb MD Work Phone: 0(718)373-096375 [place] [address] 02-25-2025 21:04-0400 Body mass index (BMI) [Ratio] 24.4 kg/m2 Dr. Milind Lamb MD Work Phone: 3(695)002-862775 [place] [address] 02-25-2025 21:04-0400 Body weight 62.[address] Milind Lamb MD Work Phone: 8(270)401-399775 [place] [address] 12-10-2024 04:29-0400 Body temperature 98.7 [degF] Dr. Milind Lamb MD Work Phone: [facility] 12-10-2024 04:29-0400 Diastolic blood pressure 65 mm[Hg] Dr. Milind Lamb MD Work Phone: [facility] 12-10-2024 04:29-0400 Heart rate 87 /min Dr. Milind Lamb MD Work Phone: 5(166)908-541175 [place] [address] 12-10-2024 04:29-0400 Respiratory rate 16 /min Dr. Milind Lamb MD Work Phone: 8(609)005-045877 [address] 12-10-2024 04:29-0400 SaO2% (BldA) [Mass fraction] 100 % Dr. Milind Lamb MD Work Phone: 4(634)535-358875 [place] [address] 12-10-2024 04:29-0400 Systolic blood pressure 142 mm[Hg] Dr. Milind Lamb MD Work Phone: 3(232)856-930775 [place] [address] 12-10-2024 03:32-0400 Body mass index (BMI) [Ratio] 22.6 kg/m2 Dr. Milind Lamb MD Work Phone: 9(979)214-414175 [place] [address] 12-10-2024 03:32-0400 Body weight [address] Milind Lamb MD Work Phone: 5(696)018-736175 [place] [address] 12-09-2024 15:49-0400 Body height 160.[address] Milind Lamb MD Work Phone: 6(489)363-806877 [place] [id number] 12-09-2024 00:00-0400 Body temperature 98.9 [degF] Dr. Milind Lamb MD Work Phone: [facility] 12-09-2024 00:00-0400 Diastolic blood pressure 52 mm[Hg] Dr. Milind Lamb MD Work Phone: 5(348)430-330377 [place] [id number] 12-09-2024 00:00-0400 Heart rate 92 /min Dr. Milind Lamb MD Work Phone: 9(772)875-083177 [place] [id number] 12-09-2024 00:00-0400 Respiratory rate 21 /min Dr. Milind Lamb MD Work Phone: [facility] 12-09-2024 00:00-0400 SaO2% (BldA) [Mass fraction] 99 % Dr. Milind Lamb MD Work Phone: 9(554)939-921177 [place] [address] 12-09-2024 00:00-0400 Systolic blood pressure 109 mm[Hg] Dr. Milind Lamb MD Work Phone: 2(637)637-025075 [place] [address] 12-08-2024 19:55-0400 Body height 160.[address] Milind Lamb MD Work Phone: 3(054)406-351975 [place] [address] 12-08-2024 19:55-0400 Body mass index (BMI) [Ratio] 23.6 kg/m2 Dr. Milind Lamb MD Work Phone: 6(440)047-588275 [place] [address] 12-08-2024 19:55-0400 Body weight 60.[address] Milind Lamb MD Work Phone: 8(835)876-152375 [place] [address] 07-29-2023 16:28-0500 Diastolic blood pressure 80 mm[Hg] Dr. Milind Lamb Work Phone: 9(859)687-603775 [place] [address] 07-29-2023 16:28-0500 Heart rate 99 /min Dr. Milind Lamb Work Phone: 7(365)493-890175 [place] [address] 07-29-2023 16:28-0500 Respiratory rate 23 /min Dr. Milind Lamb Work Phone: 4(566)906-856875 [place] [address] 07-29-2023 16:28-0500 SaO2% (BldA) [Mass fraction] 98 % Dr. Milind Lamb Work Phone: 3(341)224-880875 [place] [address] 07-29-2023 16:28-0500 Systolic blood pressure 150 mm[Hg] Dr. Milind Lamb Work Phone: 9(300)127-110975 [place] [address] 07-29-2023 12:34-0500 Body height 160.[address] Milind Lamb Work Phone: 8(558)100-792675 [place] [address] 07-29-2023 12:34-0500 Body mass index (BMI) [Ratio] 23.7 kg/m2 Dr. Milind Lamb Work Phone: 5(130)104-350475 [place] [address] 07-29-2023 12:34-0500 Body temperature 95.9 [degF] Dr. Milind Lamb Work Phone: [facility] 07-29-2023 12:34-0500 Body weight 60.[address] Milind Lamb Work Phone: [facility] 07-06-2023 12:39-0500 Body temperature 98.2 [degF] Dr. Milind Lamb Work Phone: [facility] 07-06-2023 12:39-0500 Diastolic blood pressure 71 mm[Hg] Dr. Milind Lamb Work Phone: [facility] 07-06-2023 12:39-0500 Heart rate 98 /min Dr. Milind Lamb Work Phone: [facility] 07-06-2023 12:39-0500 Respiratory rate 18 /min Dr. Milind Lamb Work Phone: [facility] 07-06-2023 12:39-0500 SaO2% (BldA) [Mass fraction] 100 % Dr. Milind Lamb Work Phone: [facility] 07-06-2023 12:39-0500 Systolic blood pressure 141 mm[Hg] Dr. Milind Lamb Work Phone: [facility] 07-05-2023 12:30-0500 Body weight 56.[address] Milind Lamb Work Phone: [facility] 07-05-2023 06:00-0500 Body mass index (BMI) [Ratio] 21.9 kg/m2 Dr. Milind Lamb Work Phone: [facility] 07-02-2023 21:27-0500 Body temperature 98.3 [degF] [facility] 07-02-2023 21:27-0500 Diastolic blood pressure 81 mm[Hg] [facility] 07-02-2023 21:27-0500 Heart rate 124 /min [facility] 07-02-2023 21:27-0500 Respiratory rate 26 /min [facility] 07-02-2023 21:27-0500 SaO2% (BldA) [Mass fraction] 100 % [facility] 07-02-2023 21:27-0500 Systolic blood pressure 176 mm[Hg] [facility] 07-02-2023 20:50-0500 Body mass index (BMI) [Ratio] 21.4 kg/m2 [facility] 07-02-2023 20:50-0500 Body weight 54.88 kg [facility] 07-02-2023 18:19-0500 Body height 160.02 cm [facility] 07-02-2023 09:02-0500 Diastolic blood pressure 87 mm[Hg] [facility] 07-02-2023 09:02-0500 Heart rate 110 /min [facility] 07-02-2023 09:02-0500 Respiratory rate 16 /min [facility] 07-02-2023 09:02-0500 SaO2% (BldA) [Mass fraction] 98 % [facility] 07-02-2023 09:02-0500 Systolic blood pressure 149 mm[Hg] [facility] 07-02-2023 07:39-0500 Body height 160.02 cm [facility] 07-02-2023 07:39-0500 Body mass index (BMI) [Ratio] 21.4 kg/m2 [facility] 07-02-2023 07:39-0500 Body temperature 96.8 [degF] [facility] 07-02-2023 07:39-0500 Body weight 55.06 kg [facility] 06-30-2023 23:17-0500 Body height 160.02 cm [facility] 06-30-2023 23:17-0500 Body mass index (BMI) [Ratio] 21.9 kg/m2 [facility] 06-30-2023 23:17-0500 Body temperature 97.2 [degF] [facility] 06-30-2023 23:17-0500 Body weight 56.01 kg [facility] 06-30-2023 23:17-0500 Diastolic blood pressure 87 mm[Hg] [facility] 06-30-2023 23:17-0500 Heart rate 105 /min [facility] 06-30-2023 23:17-0500 Respiratory rate 18 /min [facility] 06-30-2023 23:17-0500 SaO2% (BldA) [Mass fraction] 100 % [facility] 06-30-2023 23:17-0500 Systolic blood pressure 169 mm[Hg] [facility] 07-28-2022 14:10-0500 Body temperature 98 [degF] Dr. Milind Lamb Work Phone: [facility] 07-28-2022 14:10-0500 Diastolic blood pressure 72 mm[Hg] Dr. Milind Lamb Work Phone: [facility] 07-28-2022 14:10-0500 Heart rate 86 /min Dr. Milind Lamb Work Phone: [facility] 07-28-2022 14:10-0500 Respiratory rate 18 /min Dr. Milind Lamb Work Phone: [facility] 07-28-2022 14:10-0500 SaO2% (BldA) [Mass fraction] 98 % Dr. Milind Lamb Work Phone: [facility] 07-28-2022 14:10-0500 Systolic blood pressure 124 mm[Hg] Dr. Milind Lamb Work Phone: [facility] 07-28-2022 05:51-0500 Body weight 49.[address] Milind Lamb Work Phone: [facility] 07-26-2022 15:25-0500 Body height 160.[address] Milind Lamb Work Phone: [facility] 07-26-2022 13:53-0500 Body mass index (BMI) [Ratio] 19.3 kg/m2 Dr. Milind Lamb Work Phone: [facility] 07-26-2022 13:00-0500 Body temperature 97.4 [degF] Dr. Milind Lamb Work Phone: [facility] 07-26-2022 13:00-0500 Diastolic blood pressure 73 mm[Hg] Dr. Milind Lamb Work Phone: [facility] 07-26-2022 13:00-0500 Heart rate 107 /min Dr. Milind Lamb Work Phone: [facility] 07-26-2022 13:00-0500 Respiratory rate 27 /min Dr. Milind Lamb Work Phone: [facility] 07-26-2022 13:00-0500 SaO2% (BldA) [Mass fraction] 99 % Dr. Milind Lamb Work Phone: [facility] 07-26-2022 13:00-0500 Systolic blood pressure 138 mm[Hg] Dr. Milind Lamb Work Phone: [facility] 07-26-2022 11:12-0500 Body height 160.[address] Milind Lamb Work Phone: [facility] 07-26-2022 11:12-0500 Body mass index (BMI) [Ratio] 21.2 kg/m2 Dr. Milind Lamb Work Phone: [facility] 07-26-2022 11:12-0500 Body weight 54.[address] Milind Lamb Work Phone: [facility] 05-03-2022 06:11-0400 Body height 160.[address] Milind Lamb Work Phone: [facility] Work Phone: 05-03-2022 06:11-0400 Body mass index (BMI) [Ratio] 21.4 kg/m2 Dr. Milind Lamb Work Phone: [facility] 05-03-2022 06:11-0400 Body temperature 98 [degF] Dr. Milind Lamb Work Phone: [facility] 05-03-2022 06:11-0400 Body weight 54.[address] Milind Lamb Work Phone: [facility] 05-03-2022 06:11-0400 Diastolic blood pressure 84 mm[Hg] Dr. Milind Lamb Work Phone: [facility] 05-03-2022 06:11-0400 Heart rate 102 /min Dr. Milind Lamb Work Phone: [facility] 05-03-2022 06:11-0400 Respiratory rate 16 /min Dr. Milind Lamb Work Phone: [facility] 05-03-2022 06:11-0400 SaO2% (BldA) [Mass fraction] 100 % Dr. Milind Lamb Work Phone: [facility] 05-03-2022 06:11-0400 Systolic blood pressure 157 mm[Hg] Dr. Milind Lamb Work Phone: [facility] 04-11-2022 08:16-0400 Body height 160.[address] Milind Lamb Work Phone: [facility] Work Phone: 04-11-2022 08:16-0400 Body mass index (BMI) [Ratio] 20.9 kg/m2 Dr. Milind Lamb Work Phone: [facility] 04-11-2022 08:16-0400 Body temperature 96.5 [degF] Dr. Milind Lamb Work Phone: [facility] 04-11-2022 08:16-0400 Body weight 53.[address] Milind Lamb Work Phone: [facility] 04-11-2022 08:16-0400 Diastolic blood pressure 81 mm[Hg] Dr. Milind Lamb Work Phone: [facility] 04-11-2022 08:16-0400 Heart rate 80 /min Dr. Milind Lamb Work Phone: [facility] 04-11-2022 08:16-0400 Respiratory rate 18 /min Dr. Milind Lamb Work Phone: [facility] 04-11-2022 08:16-0400 SaO2% (BldA) [Mass fraction] 97 % Dr. Milind Lamb Work Phone: [facility] 04-11-2022 08:16-0400 Systolic blood pressure 140 mm[Hg] Dr. Milind Lamb Work Phone: [facility] 03-06-2022 14:50-0400 Body temperature 97.9 [degF] Dr. Milind Lamb Work Phone: [facility] Work Phone: 03-06-2022 14:50-0400 Diastolic blood pressure 88 mm[Hg] Dr. Milind Lamb Work Phone: [facility] Work Phone: 03-06-2022 14:50-0400 Heart rate 91 /min Dr. Milind Lamb Work Phone: [facility] Work Phone: 03-06-2022 14:50-0400 Respiratory rate 16 /min Dr. Milind Lamb Work Phone: [facility] Work Phone: 03-06-2022 14:50-0400 SaO2% (BldA) [Mass fraction] 98 % Dr. Milind Lamb Work Phone: [facility] Work Phone: 03-06-2022 14:50-0400 Systolic blood pressure 131 mm[Hg] Dr. Milind Labm Work Phone: [facility] Work Phone: 03-06-2022 09:27-0400 Body height 160.[address] Milind Lamb Work Phone: [facility] Work Phone: 03-06-2022 09:27-0400 Body weight 57.[address] Milind Lamb Work Phone: [facility] Work Phone: 03-03-2022 20:17-0400 Body mass index (BMI) [Ratio] 20.8 kg/m2 Dr. Milind Lamb Work Phone: [facility] Work Phone: Encounters Encounter Date Encounter Type Care Provider Facility Start: 04-18-2025 End: 04-20-2025 Evaluation and management of inpatient MEREDITH FELIPE Facility:[facility] Start: 04-13-2025 ambulatory MEREDITH FELIPE Facil ity:[facility] Start: 04-13-2025 End: 04-13-2025 ambulatory MEREDITH FELIPE Facility:[facility] Start: 04-08-2025 ambulatory GLORY MAST Facility:[facility] Start: 03-17-2025 End: 03-17-2025 Emergency department patient visit Dr. Milind Lamb MD Work Phone: -Emergency Department Work Phone: Start: 03-04-2025 End: 03-04-2025 Emergency department patient visit Dr. Milind Lamb MD Work Phone: -Emergency Department Work Phone: Start: 03-02-2025 End: 03-02-2025 Telephone encounter Meredith [...] 3rd Flr Start: 01-18-2025 End: 01-22-2025 ambulatory GLORY MAST BRIDGE [employer]WORK[employer] MAKER Facility:[facility] Start: 01-18-2025 End: 01-22-2025 Outreach Lab GLORY MAST BRIDGE [employer]WORK[employer] HEL[employer]NIPPLE MAKER [facility] Start: 12-10-2024 Non-patient / Non-visit Dr. Ciro perrin MD -[facility] Work Phone: Start: 12-09-2024 Non-patient / Non-visit Dr. Shira Ibarra MD -[facility] Work Phone: Start: 12-09-2024 ambulatory Zelda Ibarra Facility :[facility] Start: 12-09-2024 End: 12-10-2024 Evaluation and management of inpatient Dr. Zelda Ibarra MD -Intensive Care Unit Work Phone: Start: 10-18-2024 End: 10-18-[address] Milind Lamb MD Work Phone: [facility] Work Phone: Start: 10-18-2024 End: 10-18-[address] Milind Lamb MD -Laboratory, [facility] Start: 10-18-2024 End: 10-18-2024 ambulatory Milind Lamb Facility:[facility] Start: 07-20-2024 End: 07-20-[address] Milind Lamb MD -Laboratory, [facility] Start: 07-20-2024 End: 07-20-2024 ambulatory Milind Lamb Facility:[facility] Start: 07-16-2024 End: 07-16-2024 Patient encounter procedure Nasir LIRA -[facility] Work Phone: Start: 07-16-2024 End: 07-16-2024 ambulatory Nasir LIRA Facility:[facility] Start: 05-02-2024 ambulatory Ciro Fernández Facili ty:[facility] Start: 05-02-2024 End: 05-04-2024 Evaluation and management of inpatient Ciro Fernández Facility:[facility] Start: 07-29-2023 End: 07-29-2023 Emergency department patient visit Dr. Milind Lamb Work Phone: [facility]-Emergency Department Work Phone: Start: 07-18-2023 End: 08-11-[address] Milind Lamb Work Phone: [facility] Work Phone: Start: 07-18-2023 End: 08-11-[address] Milind Lamb Work Phone: [facility] Work Phone: Start: 07-18-[address] Milind Lamb Work Phone: [facility] Work Phone: Start: 07-06-2023 Non-patient / Non-visit Dr. Darek Lamb Work Phone: [facility] Work Phone: Start: 07-05-2023 Non-patient / Non-visit Dr. Darek Lamb Work Phone: [facility] Work Phone: Start: 07-04-2023 Non-patient / Non-visit Dr. Darek Lamb Work Phone: [facility] Work Phone: Start: 07-03-2023 Non-patient / Non-visit Dr. Darek Lamb Work Phone: [facility] Work Phone: Start: 07-02-2023 End: 07-06-2023 Evaluation and management of inpatient [facility]Intensive Care Unit Work Phone: Start: 07-02-2023 Non-patient / Non-visit Dr. Darek Lamb Work Phone: [facility] Work Phone: Start: 07-02-2023 End: 07-02-2023 [facility] Start: 06-30-2023 End: 07-01-2023 [facility] Start: 05-21-2023 End: 05-21-2023 ambulatory [facility] Work Phone: Start: 05-21-2023 End: 05-21-2023 Patient encounter procedure [facility] Start: 07-28-2022 Non-patient / Non-visit Dr. Darek Lamb Work Phone: [facility] Start: 07-27-2022 Non-patient / Non-visit Dr. Darek Lamb Work Phone: [facility] Start: 07-26-2022 Non-patient / Non-visit Dr. Darek Lamb Work Phone: [facility] Inpatient Physicians Start: 07-26-2022 End: 07-28-2022 Evaluation and management of inpatient Dr. Milind Lamb Work Phone: [facility]-Intensive Care Unit Start: 05-03-2022 End: 05-03-2022 Emergency department patient visit Dr. Milind Lamb Work Phone: [facility]-Emergency Department Start: 04-11-2022 End: 04-11-[address] Milind Lamb Work Phone: [facility] Work Phone: Start: 04-11-2022 End: 04-11-[address] Milind Lamb Work Phone: [facility] Endocrinology Start: 03-08-2022 End: 03-08-[address] Milind Lamb Work Phone: [facility] Work Phone: Start: 03-08-2022 End: 03-08-[address] Milind Lamb Work Phone: [facility]-Patient Link Start: 03-08-[address] Milind Lamb Work Phone: [facility] Start: 03-06-2022 Non-patient / Non-visit Dr. Darek Lamb Work Phone: [facility] Inpatient Physicians Start: 03-06-2022 Non-patient / Non-visit Dr. Darek Lamb Work Phone: [facility] Start: 03-05-2022 Non-patient / Non-visit Dr. Darek Lamb Work Phone: [facility] Inpatient Physicians Start: 03-05-2022 Non-patient / Non-visit Dr. Darek Lamb Work Phone: [facility] Start: 03-04-2022 Non-patient / Non-visit Dr. Darek Lamb Work Phone: [facility] Inpatient Physicians Start: 03-03-2022 End: 03-06-2022 Evaluation and management of inpatient Dr. Milind Lamb Work Phone: [facility]-Intensive Care Unit Start: 07-22-2018 End: 07-23-2018 Patient encounter procedure SUM[facility] AL[facility]ES Facility:B Procedures Date Procedure Procedure Detail Performing Clinician Start: 04-18-2025 Antibody screen MEREDITH LABOY Comment on above: Order Comment: Speci men Type: BLOOD SPECIMEN Ordering Facility: [facility] Address: [address] [place] [id number] Performed By: #### T SCR #### [facility] CLIA [id number] [address] [place] Start: 03-17-2025 Urnls dip stick/tabl et reagent auto microscopy Dr. Milind Lamb MD Work Phone: Start: 03-17-[address] Milind Lamb MD Work Phone: Start: 03-17-2025 Computed tomography of abdomen and pelvis with intravenous contrast Dr. Milind Lamb MD Work Phone: Start: 03-04-2025 Urnls dip stick/tabl et reagent auto microscopy Dr. Milind Lamb MD Work Phone: Start: 03-04-[address] Milind Lamb MD Work Phone: Start: 02-25-2025 CT of thorax, abdome n and pelvis with contrast Dr. Milind Lamb MD Work Phone: Start: 02-25-2025 Urnls dip stick/tabl et reagent auto microscopy Dr. Milind Lamb MD Work Phone: Start: 02-25-[address] Milind Lamb MD Work Phone: Start: 02-25-[address] Milind Lamb MD Work Phone: Start: [...] RSV Vaccine (1 - 1-dose 75+ series) [facility] Start: 03-24-2025 End: 03-24-2025 Patient encounter procedure 03/24/2025 8:15 AM EDT Office Visit Urology [address] [address] Meredith Felipe MD [address] [place] [id number] kidney mass- found at [facility] 12/10 Urology Comment on above: kidney mass- found a t [facility] 12/10 Start: 03-21-2025 End: 03-21-2025 Admission to same day surgery center 03/21/2025 12:30 PM EDT - 03/21/2025 5:00 PM EDT Surgery [address] [address] Meredith Felipe MD [address] [place] [address] XI ROBOTIC LAPAROSCOPIC NEPHRECTOMY RADICAL [facility] Comment on above: XI ROBOTIC LAPAROSCO PIC NEPHRECTOMY RADICAL Start: 03-21-2025 End: 03-21-2025 Laparoscopy radical nephrectomy 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 03/21/2025 12:30 PM EDT [place] [facility] Start: 03-21-2025 Subsequent hospital visit by physician 03/21/2025 12:30 PM EDT Hospital Encounter [address] [address] Meredith Felipe MD [address] [place] [address] 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] [facility] Comment on above: Neoplasm of uncertai n behavior of left kidney [D41.02] Start: 03-17-2025 [facility] Start: 03-11-2025 End: 06-10-2025 Bacteria identified in Urine by Culture BACTERIAL CULTURE, URINE Microbiology Routine Neoplasm of uncertain behavior of left kidney Expected: 03/11/2025, Expires: 06/10/2025 [facility] Work Phone: Comment on above: Expected: 03/11/2025 , Expires: 06/10/2025 Start: 03-07-2025 Influenza vaccination Influenza Vacc ine (#1) [facility] Start: 03-04-2025 [facility] Start: 02-26-2025 End: 02-26-2025 [facility] Start: 02-25-2025 Bacteria identified in Urine by Culture Urine Culture [facility] Start: 02-25-2025 Urine culture [facility] Start: 02-24-2025 End: 05-26-2025 Alkaline phosphatase [Enzymatic activity/volume] in Serum or Plasma ALKALINE PHOSPHATASE Lab Routine Neoplasm of uncertain behavior of left kidney Expected: 02/24/2025, Expires: 05/26/2025 [facility] Work Phone: Comment on above: Expected: 02/24/2025 , Expires: 05/26/2025 Start: 02-24-2025 End: 05-26-2025 Basic metabolic 2000 panel - Serum or Plasma BASIC METABOLIC PANEL Lab Routine Neoplasm of uncertain behavior of left kidney Expected: 02/24/2025, Expires: 05/26/2025 [facility] Comment on above: Expected: 02/24/2025 , Expires: 05/26/2025 Start: 02-24-2025 End: 05-26-2025 Gamma glutamyl transferase [Enzymatic activity/volume] in Serum or Plasma GGT Lab Routine Neoplasm of uncertain behavior of left kidney Expected: 02/24/2025, Expires: 05/26/2025 [facility] Comment on above: Expected: 02/24/2025 , Expires: 05/26/2025 Start: 12-10-2024 [facility] Start: 12-10-2024 Patient discharge [facility] Start: 12-09-2024 End: 12-09-2024 [facility] Start: 12-09-2024 Care regimes management [facility] Start: 12-09-2024 Notification of physician [facility] Start: 12-09-2024 Assessment of risk o f venous thromboembolism [facility] Start: 12-09-2024 End: 12-09-2024 Following clinical pathway protocol [facility] Start: 12-09-2024 Incentive spirometry [facility] Start: 12-09-2024 Inhalation therapy procedure [facility] Start: 12-09-2024 Insertion of cathete r into peripheral vein [facility] Start: 12-09-2024 Introduction of urin cristy catheter [facility] Start: 12-09-2024 Lab findings surveillance [facility] Start: 12-09-2024 Measuring intake and output [facility] Start: 12-09-2024 Notification of physician [facility] Start: 12-09-2024 Oxygen therapy [facility] Start: 12-09-2024 Patient education [facility] Start: 12-09-2024 Patient referral to dietitian [facility] Start: 12-09-2024 Providing care accor ding to standard [facility] Start: 12-09-2024 Provision of activit y privileges [facility] Start: 12-09-2024 Referral to service [facility] Start: 12-09-2024 Vital signs measurements [facility] Start: 12-09-2024 [facility] Start: 12-09-2024 Verification routine [facility] Start: 12-09-2024 Admission procedure [facility] Start: 12-09-2024 Hospital admission, emergency, from emergency room, medical nature [facility] Start: 12-09-2024 Consultation [facility] Start: 12-08-2024 [facility] Start: 07-29-2023 [facility] Start: 07-06-2023 Patient discharge [facility] Start: 07-03-2023 Care regimes management [facility] Start: 07-03-2023 Notification of physician [facility] Start: 07-03-2023 [facility] Start: 07-03-2023 [facility] Start: 07-03-2023 End: 07-03-2023 Blood chemistry [facility] Start: 07-03-2023 Complete blood count [facility] Start: 07-02-2023 Blood chemistry [facility] Start: 07-02-2023 Ambulation without limitation [facility] Start: 07-02-2023 Assessment of risk o f venous thromboembolism [facility] Start: 07-02-2023 Continuous pulse oximetry [facility] Start: 07-02-2023 End: 07-02-2023 Following clinical pathway protocol [facility] Start: 07-02-2023 Incentive spirometry [facility] Start: 07-02-2023 Insertion of cathete r into peripheral vein [facility] Start: 07-02-2023 Lab findings surveillance [facility] Start: 07-02-2023 Measuring intake and output [facility] Start: 07-02-2023 Notification of physician [facility] Start: 07-02-2023 Oxygen therapy [facility] Start: 07-02-2023 Patient education [facility] Start: 07-02-2023 Patient referral to dietitian [facility] Start: 07-02-2023 Providing care accor ding to standard [facility] Start: 07-02-2023 Referral to occupati onal therapist [facility] Start: 07-02-2023 Referral to service [facility] Start: 07-02-2023 Vital signs measurements [facility] Start: 07-02-2023 [facility] Start: 07-02-2023 Verification routine [facility] Start: 07-02-2023 Admission procedure [facility] Start: 07-02-2023 End: 07-02-2023 Blood chemistry [facility] Start: 07-02-2023 [facility] Start: 07-02-2023 Bacteria identified in Urine by Culture Urine Culture [facility] Start: 07-02-2023 [facility] Start: 07-01-2023 [facility] Start: 07-28-2022 Patient discharge [facility] Start: 07-27-2022 Care regimes management [facility] Start: 07-27-2022 Notification of physician [facility] Start: 07-27-2022 [facility] Start: 07-26-2022 Assessment of risk o f venous thromboembolism [facility] Start: 07-26-2022 End: 07-26-2022 Following clinical pathway protocol [facility] Start: 07-26-2022 Insertion of cathete r into peripheral vein [facility] Start: 07-26-2022 Lab findings surveillance [facility] Start: 07-26-2022 Measuring intake and output [facility] Start: 07-26-2022 Notification of physician [facility] Start: 07-26-2022 Patient education [facility] Start: 07-26-2022 Patient referral to dietitian [facility] Start: 07-26-2022 Providing care accor ding to [facility] Start: 07-26-2022 Vital signs measurements [facility] Start: 07-26-2022 End: 07-26-2022 [facility] Start: 07-26-2022 Verification routine [facility] Start: 07-26-2022 Admission procedure [facility] Start: 07-26-2022 Blood chemistry [facility] Start: 07-26-2022 [facility] Start: 07-26-2022 Patient referral to dietitian [facility] Start: 05-03-2022 [facility] Start: 03-06-2022 Patient discharge [facility] Work Phone: Start: 03-05-2022 Referral to occupati onal therapist [facility] Work Phone: Start: 03-05-2022 Referral to service [facility] Work Phone: Start: 03-04-2022 Care regimes management [facility] Work Phone: Start: 03-04-2022 Notification of physician [facility] Work Phone: Start: 03-04-2022 [facility] Work Phone: Start: 03-04-2022 Consultation [facility] Work Phone: Start: 03-03-2022 End: 03-04-2022 [facility] Work Phone: Start: 03-03-2022 Application of intermittent pneumatic compression device [facility] Work Phone: Start: 03-03-2022 Aspiration precautions [facility] Work Phone: Start: 03-03-2022 Assessment of risk o f venous thromboembolism [facility] Work Phone: Start: 03-03-2022 Continuous pulse oximetry [facility] Work Phone: Start: 03-03-2022 Elevation of head of bed [facility] Work Phone: Start: 03-03-2022 Fall prevention [facility] Work Phone: Start: 03-03-2022 End: 03-03-2022 Following clinical pathway protocol [facility] Work Phone: Start: 03-03-2022 Incentive spirometry [facility] Work Phone: Start: 03-03-2022 Inhalation therapy procedure [facility] Work Phone: Start: 03-03-2022 Insertion of cathete r into peripheral vein [facility] Work Phone: Start: 03-03-2022 Introduction of urin cristy catheter [facility] Work Phone: Start: 03-03-2022 Lab findings surveillance [facility] Work Phone: Start: 03-03-2022 Measuring intake and output [facility] Work Phone: Start: 03-03-2022 Notification of physician [facility] Work Phone: Start: 03-03-2022 Oxygen therapy [facility] Work Phone: Start: 03-03-2022 Patient education [facility] Work Phone: Start: 03-03-2022 Patient referral to dietitian [facility] Work Phone: Start: 03-03-2022 Providing care accor ding to standard [facility] Work Phone: Start: 03-03-2022 Provision of activit y privileges [facility] Work Phone: Start: 03-03-2022 Referral to service [facility] Work Phone: Start: 03-03-2022 Vital signs measurements [facility] Work Phone: Start: 03-03-2022 Admission procedure [facility] Work Phone: Start: 03-03-2022 [facility] Work Phone: Start: 2012 Pneumococcal Vaccine : 50+ (1 of 1 - PCV) Pneumococcal Vaccine: 50+ (1 of 1 - PCV) [facility] Start: 2012 Shingrix Vaccine (1 of 2) Ehnry grix Vaccine (1 of 2) [facility] Start: 2007 Diabetes Screening Diabetes Screenin g [facility] Start: 2007 Lipid panel Lipid Screening [facility] Start: 2007 Screening for malign ant neoplasm of colon [facility] Start: 2002 Screening for malign ant neoplasm of breast Mammogram Screening [facility] Start: 1983 Screening for malign ant neoplasm of cervix Cervical Cancer Screening [facility] Start: 1981 Urine microalbumin profile DTaP,Tdap,Td Vaccine (1 - Tdap) [facility] Start: 1980 Anxiety Screening Anxiety Screening [facility] Start: 1980 Depression Screening Depression Scre ening [facility] Start: 1980 Hepatitis C screening Hepatitis C Sc reening [facility] Start: 1980 HIV screening HIV Screening [facility] Anion gap measurement [facility] Anion gap measurement [facility] Anion gap measurement [facility] Anion gap measurement [facility] Bilirubin measuremen t, urine [facility] BUN/Creatinine ratio [facility] BUN/Creatinine ratio [facility] BUN/Creatinine ratio [facility] BUN/Creatinine ratio [facility] Calcium [Mass/volume ] in Serum or Plasma [facility] Calcium [Mass/volume ] in Serum or Plasma [facility] Calcium [Mass/volume ] in Serum or Plasma [facility] Calcium [Mass/volume ] in Serum or Plasma [facility] Carbon dioxide, tota l [Moles/volume] in Serum or Plasma [facility] Carbon dioxide, tota l [Moles/volume] in Serum or Plasma [facility] Carbon dioxide, tota l [Moles/volume] in Serum or Plasma [facility] Carbon dioxide, tota l [Moles/volume] in Serum or Plasma [facility] Chloride [Moles/volu me] in Serum or Plasma [facility] Chloride [Moles/volu me] in Serum or Plasma [facility] Chloride [Moles/volu me] in Serum or Plasma [facility] Chloride [Moles/volu me] in Serum or Plasma [facility] Creatinine [Moles/vo lume] in Serum or Plasma [facility] Creatinine [Moles/vo lume] in Serum or Plasma [facility] Creatinine [Moles/vo lume] in Serum or Plasma [facility] Creatinine [Moles/vo lume] in Serum or Plasma [facility] Glucose [Mass/volume ] in Serum or Plasma [facility] Glucose [Mass/volume ] in Serum or Plasma [facility] Glucose [Mass/volume ] in Serum or Plasma [facility] Glucose [Mass/volume ] in Serum or Plasma [facility] Hematocrit [Volume Fraction] of Blood [facility] Hemoglobin [Mass/vol ume] in Blood [facility] Hemoglobin [Presence ] in Urine [facility] Hemoglobin A1c/Hemoglobin.total in Blood [facility] Leukocytes [#/volume ] in Blood [facility] Mean corpuscular hemoglobin concentration determination [facility] Mean corpuscular hemoglobin determination [facility] Measurement of keton es in urine using dipstick [facility] Measurement of renal function [facility] Measurement of renal function [facility] Measurement of renal function [facility] Measurement of renal function [facility] Microscopic urinalysis [facility] Microscopic urinalysis [facility] Organism count, microscopic method [facility] Patient Education [facility] Work Phone: Patient referral [facility] Work Phone: pH of Urine [facility] Platelets [#/volume] in Blood [facility] Potassium [Moles/vol ume] in Serum or Plasma [facility] Potassium [Moles/vol ume] in Serum or Plasma [facility] Potassium [Moles/vol ume] in Serum or Plasma [facility] Potassium [Moles/vol ume] in Serum or Plasma [facility] Red blood cell count [facility] Red cell distributio n width determination [facility] Sodium [Moles/volume ] in Serum or Plasma [facility] Sodium [Moles/volume ] in Serum or Plasma [facility] Sodium [Moles/volume ] in Serum or Plasma [facility] Sodium [Moles/volume ] in Serum or Plasma [facility] Specific gravity of Urine [facility] Urea nitrogen [Mass/volume] in Serum or Plasma [facility] Urea nitrogen [Mass/volume] in Serum or Plasma [facility] Urea nitrogen [Mass/volume] in Serum or Plasma [facility] Urea nitrogen [Mass/volume] in Serum or Plasma [facility] Urinalysis, blood, qualitative [facility] Urine dipstick for glucose [facility] Urine dipstick for leukocyte esterase [facility] Urine dipstick for nitrite [facility] Urine dipstick for protein [facility] Urine examination [facility] Urine microscopy: epithelial cells [facility] Urine microscopy: epithelial cells [facility] Urine microscopy: re d cells [facility] Urine Microscopy: wh ite cells [facility] Urobilinogen [Presen ce] in Urine [facility] White blood cell count [facility] End: 03-26-2026 XR Chest PA and Lateral XR CHEST 2V FRONTAL/LAT Radiology Routine Neoplasm of uncertain behavior of left kidney 1 Occurrences starting 02/24/2025 until 03/26/2026 [facility] Comment on above: 1 Occurrences starti ng 02/24/2025 until 03/26/2026 Payers Date Payer Category Payer Medicaid [id number] 2024 Self-pay [id number] 2024 Unknown [id number] 2018 Unknown [id number] 1960 Unknown [id number] 1960 Unknown [id number] Unknown [id number] Unknown [employer] [id number] Unknown [id number] 2.16.8 [id number] Unknown [id number] 2.16.8 [id number] Unknown [id number] 2.16.8 [id number] Unknown [id number] 2.16.8 [id number] Unknown [id number] 2.16.8 [id number] Unknown [id number] 2.16.8 [id number] Unknown [id number] 2.16.8 [id number] Unknown [id number] 2.16.8 [id number] Unknown [id number] 2.16.8 [id number] Unknown [id number] 2.16.8 [id number] Unknown [id number] 2.16.8 [id number] Unknown [id number] 2.16.8 [id number] Unknown [id number] 2.16.8 [id number] Unknown [id number] 2.16.8 [id number] Unknown [id number] 2.16.8 [id number] Social History Date Type Detail Facility Start: 03-03-2022 End: 07-29-2023 Tobacco smoking status ALIS Unknown if ever smoked [facility] Start: 1960 Sex Assigned At Female W [facility] Start: 05-03-2024 End: 03-17-2025 Tobacco smoking status ALIS Ex-smoker (finding) [facility] Start: 08-15-2005 End: 10-22-2024 Sex Female (finding) [facility] Sexual [facility] Start: 02-10-2025 History of Social function [facility] Start: 02-10-2025 Area Deprivation Index [facility] Start: 06-07-2012 National Score (1-10 0), lower number is lower risk 64 [facility] Start: 1960 Sex assigned at Not on file C [facility] Medical Equipment Procedure Code Equipment Code Equipment [...] 100, # 1 EA, 11 Refill(s), Pharmacy: [facility]/pharmacy #[id number], 161, cm, 01/18/25 9:58:00 EDT, Height, 60, kg, 01/18/25 9:58:00 EDT, Dosing Weight Start: 01-18-2025 See Instructions , qs 1 month supply, # 60 EA, 0 Refill(s), Pharmacy: [facility]/pharmacy #[id number], 161, cm, 01/18/25 9:58:00 EDT, Height, [...] 12-10-2024 Functional status Activity Ability Indepe ndent [facility] Work Phone: 12-10-2024 Functional status Patient Activi ty Ambulates;Bathroom Privilege [facility] Work Phone: 07-06-2023 Functional status Ambulates [facility] Work Phone: 07-28-2022 Functional status Ambulates [facility] Work Phone: 03-06-2022 Functional status Chair [facility] Work Phone: Mental Status Date Assessment Result Facility 12-10-2024 Cognitive function Voice/Name [facility] Work Phone: 12-08-2024 Cognitive function Level Of Cons ciousness Awake;Alert;Appropriate;Follow s Commands [facility] Work Phone: 07-29-2023 Cognitive function Level Of Cons ciousness Awake;Alert;Appropriate;Follow s Commands [facility] Work Phone: 07-06-2023 Cognitive function Voice/Name [facility] Work Phone: 07-28-2022 Cognitive function Voice/Name [facility] Work Phone: 05-03-2022 Cognitive function Level Of Cons ciousness Awake;Alert;Appropriate;Follow s Commands [facility] Work Phone: 03-06-2022 Cognitive function Voice/Name [facility] Work Phone: Clinical Notes 05-03-2022 to 04-20-2025 Note Date & Type Note Facility 04-20-2025 Note HNO ID: [id number] Author: SIMON JAMESON LSW Service: Care Management Author Type: Java Designer Type: Care Mgt Progress Note Filed: 04/20/2025 17:38 Note Text: CARE MANAGEMENT PROGRESS NOTE SERVICE DATE: 04/20/2025 SERVICE TIME: 2:00PM LOS: 2 days SW met with patient at bedside and provided her with resources for [facility] and the [facility]. Patient appreciative of resources. SIGNATURE: RENETTA Emmanuel PATIENT NAME: Lina Winkler s DATE: April 20, 2025 TIME: 5:37 PM [facility] 04-20-2025 Note HNO ID: [id number] Author: NAS WILL RN Service: Care Management Author Type: Registered Nurse Type: Care Mgt Progress Note Filed: 04/20/2025 13:36 Note Text: CARE MANAGEMENT DISCHARGE NOTE SERVICE DATE: April 20, 2025 SERVICE TIME: 1:36 PM Admission Date: 04/18/2025 LOS: 2 days Discharge Arrangement Discharge Arrangement: Home with Self Care Services Arranged Medical Services: Other: See Comment (none indicated) Caregiver Assessment Caregiver is ready, willing and able to meet the patient's needs as recommended by the inter-professional team: No Caregiver needed Transportation Arrangements Transportation Arrangements: Car Handoff Communication: Handoff to: Primary Care Physician Primary Care Physician Name/Phone: summary of care to PCPGloyr Additional Information: Patient is discharging to home with self care. No skilled needs indicated. Patient's friend is transporting. SIGNATURE: Paola Will RN PATIENT NAME: Lina Peterson Masters DATE: April 20, 2025 TIME: 1:36 PM [facility] 04-20-2025 Note HNO ID: [id number] Author: GABY WOLFF MD Service: Urology Author Type: Resident Type: Progress Notes Filed: 04/20/2025 08:58 Note Text: -- Attestation signed by Orestes Carney MD at 04/21/2025 8:17 AM I reviewed the patient's case and plan with the residents. I personally examined the patient and reviewed our assessment and plan. All questions were answered. -- UROLOGY PROGRESS NOTE PATIENT NAME: Lina Meadows DATE OF : 1960 ADMISSION DATE: 04/18/2025 9:52 AM Subjective POD2 robotic left partial nephrectomy Afebrile, HDS Voiding spontaneously Continues to have pain Breathing on room air Denies fevers and chills Has walked to bathroom and was up to chair yesterday Has eaten but not much Objective VS: BP 143/77 Pulse 106 Temp 37.1 ?C (98.7 ?F) (Oral) Resp 16 Ht 160 cm (5' 3) Wt 59.5 kg (131 lb 2.8 oz) SpO2 96% BMI 23.24 kg/m? I AND O - 24hr: Intake/Output Summary (Last 24 hours) at 04/20/2025 0700 Last data filed at 04/20/2025 0505 Gross per 24 hour Intake 240 ml Output 1500 ml Net -1260 ml Physical Exam: General: Resp: Abdomen: No acute distress Normal effort on RA Soft, appropriately TTP, ND, incisions c/d/I with overlying skin glue : Bladder non-palpable Labs and Imaging Studies LABS: BMP: Recent Labs 04/19/25 0714 04/18/25 1040 NA 138 142 K 3.7 3.8 CHLOR 104 104 CO2 26 28 BUN 9 6* CREAT 1.07* 0.65 GLUC 45* 93 CBC: Recent Labs 04/19/25 0713 04/18/25 1040 WBC 7.92 3.98 HB 10.6* 11.3* HCT 33.1* 35.3* PLT 251 252 Urinalysis: No results found for: PH, SPGR, UGLUC, UBILI, UKET, UHB, UPROT, UROBIL, NITRITES, UWBC, SSA Urine Culture: No results found for: URCUL RADIOLOGY: N/a Assessment/Plan ASSESSMENT: 64 year old female with left renal mass s/p robotic left partial nephrectomy 04/18. - 2 Days Post-Op PLAN: - Encouraged her to eat breakfast and monitor pain. Will reassess later this AM for discharge later if pain improved - Continue home meds - Encouraged use of IS and ambulation - Diet: Regular - Periop antibiotics completed - Tylenol and charlie for pain control - Nausea/vomiting control - SQH for DVT ppx Tristian Wolff MD Urology PGY5 04/20/2025 Page instructional technology specialist resident with questions [facility] 04-19-2025 Note HNO ID: [id number] Author: NAS WILL, RN Service: Care Management Author Type: Registered Nurse Type: Care Mgt Initial Assessment Filed: 04/19/2025 15:04 Note Text: CARE MANAGEMENT: ASSESSMENT AND DISCHARGE PLAN SERVICE DATE: April 19, 2025 SERVICE TIME: 3:03 PM PCP: Glory Weems NP, NIPPLE MAKER Primary Contact: Extended Emergency Contact Information Primary Emergency Contact: Joaquim Meadows Mobile Relation: Son Secondary Emergency Contact: RustyAngella Mobile Relation: Friend Admission Status: Inpatient Insurance Provider: [facility] Discharge Planning requested by: Per Department Practice Potential Transition Plans Home Advance Directives Current Living Arrangements and Support Lives with: Children Type of Residence: Private Residence (Apartment or Condo) Does the patient have to climb stairs at home?: Yes, stairs outside the home, stairs within the home Support: Children, Friends/neighbors How do you manage to accomplish the following: Independent: Ambulation, Bathe/Shower, Dress, Meals/Meal Prep, Going to the bathroom, Medication Management, Transportation to appointments/community Current Services/Equipment Current Post-Acute Service(s): None Discharge Planning Patient Goal(s): Be able to go home, General wellness, Less pain [place] of [place] Explained: [place] of [place] Given: No Reason Not Given: No placements necessary Are you interested in bedside delivery of your medications? No Discharge Planning Participant(s): Patient Patient/Family Comments: Caregiver Assessment: Caregiver is ready, willing and able to meet the patient's needs as recommended by the inter-professional team: No Caregiver needed Transport at Discharge: Transportation Arrangements: Car Needs Prior to Discharge: Needs Prior to Discharge: To Be Determined Post-Acute Discharge Plan: Chart reviewed and met with patient at bedside. Introduced self and role of CM. Patient lives at home with Son. Patient reports being Independent with ADLs and IADLs. +PCP, +RX, -DME. Patient is anticipated to DC to Home. Patient's friend will transport. CM will continue to follow for transitional care planning. SIGNATURE: Paola Will RN PATIENT NAME: Lina Meadows DATE: April 19, 2025 TIME: 3:03 PM [facility] 04-19-2025 Note HNO ID: [id number] Author: ANALILIA HALE RPh Service: Pharmacy Author Type: Pharmacist Type: Plan of Care Filed: 04/19/2025 12:54 Note Text: DISCHARGE MEDICATION REVIEW BY PHARMACY Patient Name: Lina Meadows Account #: Data Unavailable Admission Date: 04/18/2025 Date of Contact: April 19, 2025 Time of Contact: 12:54 PM Medication list was reviewed by a Pharmacist for drug interactions or drug related problems:Yes Below is a summary of pharmacist recommendations discussed with LIP: No recommendations at this time from discharge medication list. Analilia Hale RPh Pager: [phone] 04/19/2025 12:54 PM Medication List START taking these medications docusate sodium 100 mg capsule Commonly known as: COLACE Take 1 capsule by mouth two times a day. oxyCODONE IR 5 mg immediate release tablet Commonly known as: ROXICODONE Take 1 tablet by mouth every 6 hours as needed for pain for up to 5 days. CONTINUE taking these medications DEXCOM G7 SENSOR Laisha Generic drug: Blood-Glucose Sensor HumaLOG KwikPen Insulin 100 unit/mL Generic drug: insulin lispro lisinopril 5 mg tablet Commonly known as: ZESTRIL metFORMIN 1,000 mg tablet Commonly known as: GLUCOPHAGE rosuvastatin 10 mg tablet Commonly known as: CRESTOR sertraline 50 mg tablet Commonly known as: ZOLOFT TOUJEO SOLOSTAR U-300 INSULIN 300 unit/mL (1.5 mL) Generic drug: insulin glargine U-300 conc Where to Get Your Medications These medications were sent to [facility] - [place] [address] - [address] - [phone] [address] [place] [address] docusate sodium 100 mg capsule oxyCODONE IR 5 mg immediate release tablet [facility] 04-19-2025 Note HNO ID: [id number] Author: MEREDITH FELIPE MD Service: Urology Author Type: Physician Type: Progress Notes Filed: 04/19/2025 08:19 Note Text: UROLOGY PROGRESS NOTE PATIENT NAME: Lina Meadows DATE OF : 1960 ADMISSION DATE: 04/18/2025 9:52 AM Subjective POD1 robotic left partial nephrectomy Afebrile, HDS Voiding spontaneously Endorsing incisional pain/soreness Breathing on room air Denies fevers and chills Has walked to bathroom Has not yet eaten Objective VS: BP 125/71 Pulse 98 Temp 36.7 ?C (98 ?F) (Oral) Resp 16 Ht 160 cm (5' 3) Wt 59.5 kg (131 lb 2.8 oz) SpO2 99% BMI 23.24 kg/m? I AND O - 24hr: Intake/Output Summary (Last 24 hours) at 04/19/2025 0618 Last data filed at 04/19/2025 0315 Gross per 24 hour Intake 1500 ml Output 710 ml Net 790 ml Physical Exam: General: Resp: Abdomen: No acute distress Normal effort on RA Soft, appropriately TTP, ND, incisions c/d/I with overlying skin glue : No L/R flank TTP, no SP TTP, no SP distension Voiding spontaneously Labs and Imaging Studies LABS: BMP: Recent Labs 04/18/25 1040 NA 142 K 3.8 CHLOR 104 CO2 28 BUN 6* CREAT 0.65 GLUC 93 CBC: Recent Labs 04/18/25 1040 WBC 3.98 HB 11.3* HCT 35.3* PLT 252 Urinalysis: No results found for: PH, SPGR, UGLUC, UBILI, UKET, UHB, UPROT, UROBIL, NITRITES, UWBC, SSA Urine Culture: No results found for: URCUL RADIOLOGY: N/a Assessment/Plan ASSESSMENT: 64 year old female with left renal mass s/p robotic left partial nephrectomy 04/18. - 1 Day Post-Op PLAN: - Continue home meds - Encouraged use of IS and ambulation - Diet: Regular - Periop antibiotics completed - Tylenol and charlie for pain control - Nausea/vomiting control - Hopeful discharge later today Velvet Stephenson, MS4 April 19, 2025 6:21 AM Medical student note reviewed for accuracy and necessary changes made after my independent evaluation of patient Tristian Wolff MD Urology PGY5 04/19/2025 Page instructional technology specialist resident with questions I saw and evaluated the patient. Discussed with the resident and agree with resident's findings and plan as documented in the resident's note. [facility] 04-18-2025 Note HNO ID: [id number] Author: DURGA SANCHEZ APRN.APPLICATION DBA Service: Nursing Author Type: Nurse Dot Net Architect Type: Anesthesia Procedure Notes Filed: 04/18/2025 14:00 Note Text: ANESTHESIOLOGY PROCEDURE NOTE Airway General Information Procedure Start Time/Medication Administration: 04/18/2025 1:47 PM Procedure End Time: 04/18/2025 1:47 PM Patient location during procedure: OR Timeout Performed Pre-procedure: timeout performed Consent Obtained: Yes Patient identity confirmed: arm band and patient Staffing APPLICATION DBA: Durga Sanchez APRN.APPLICATION DBA Performed by: APPLICATION DBA Indications and Patient Condition Indications for airway management: anesthesia Preoxygenated: yes anesthesia circuit Patient position: sniffing Method: asleep Cricoid Pressure: No Manual In-Line Stabilization: No Difficult Mask: No Final Airway Details Final airway type: endotracheal airwayFinal Endotracheal Airway: ETT Cuffed: yes Successful intubation technique: direct laryngoscopy Endotracheal tube insertion site: oral Blade: Margarita Blade size: #4 ETT size (mm): 7.5 Measured from: lips Measurement (cm): 21 Placement verified by: chest auscultation and capnometry Cormack-Lehane Classification: grade I - full view of glottis Number of attempts at approach: 1 Failed airway: no Unrecognized esophageal intubation: no Airway not difficult SIGNATURE: Durga Sanchez APRN.CRNA PATIENT NAME: Lina Tamezs DATE: April 18, 2025 TIME: 1:59 PM CSN: [id number] [facility] 04-13-2025 Note HNO ID: [id number] Author: MEREDITH FELIPE MD Service: ? Author Type: Physician Type: Progress Notes Filed: 04/13/2025 09:49 Note Text: Consultation requested by Dr. Glory Weems, LAWN AND GARDEN TECHNICIAN, NIPPLE MAKER for an opinion regarding No chief complaint on file. . My final recommendations will be communicated back to the requesting physician by way of shared Medical record or letter to requesting physician via US mail. CHIEF COMPLAINT: The patient is a 64-year-old female with insulin-dependent diabetes mellitus, presenting for evaluation of a 6.3 cm left renal mass and preoperative planning for radical nephrectomy. HISTORY OF PRESENT ILLNESS: The patient is a 64-year-old female with insulin-dependent diabetes mellitus presenting for evaluation of a left renal mass. The patient was recently evaluated at [facility] for a glucose-related issue. During that visit, she reported mild abdominal pain on palpation, prompting a CT scan that revealed a 6.3 cm heterogeneous mass in the left kidney. She reports her blood sugar is currently running low. She has experienced delays in follow-up care due to social issues, including recent homelessness and insurance-related transportation barriers. She now has stable housing and an address on file. She has a remote history of tobacco use, having quit approximately 15 years ago. At that time, she smoked about 1 pack every 3-4 days. She denies any prior abdominal surgeries except for a tubal ligation following the of her son. No results found for this basename: uglucpoc,ubilipoc,uketonpoc,usgpoc,uhbp oc,uphpoc,upropoc,uuropoc,unitpoc,uwbcp oc ,ucolpoc,uclarpoc No results found for: CREAT Medications/allergies reviewed and updated. PAST MEDICAL HISTORY Diagnosis Date Healthy adult on routine physical examination History reviewed. No pertinent surgical history. History reviewed. No pertinent family history. SOCIAL HISTORY[1] ALLERGIES: ALLERGIES Allergen Reactions Latex Rash CURRENT OUTPATIENT MEDICATIONS: DEXCOM G7 SENSOR laisha Place once sensor on the back of the upper arm every 10 days. Use reader or phone jason for daily blood sugar checks. 1 month supply. TOUJEO SOLOSTAR U-300 INSULIN 300 unit/mL (1.5 mL) INJECT 40 UNITS UNDER SKIN AT BEDTIME HUMALOG KWIKPEN INSULIN 100 unit/mL 10 Units. lisinopril (ZESTRIL) 5 mg tablet 5 mg. metFORMIN (GLUCOPHAGE) 1,000 mg tablet 0 Refill(s) rosuvastatin (CRESTOR) 10 mg tablet 10 mg. sertraline (ZOLOFT) 50 mg tablet 50 mg. REVIEW OF SYSTEMS: Const: Well appearing, in [...] seizures or tremors. PHYSICAL EXAMINATION: VITAL SIGNS: BP 149/91 Pulse 101 Ht 5' 3 (1.60m) SpO2 99% General: No acute distress. CV: Regular rate and rhythm. Resp: Lungs clear to auscultation. LAST LAB RESULTS: No results found for [...] of uncertain behavior of left kidney (D41.02) CT imaging revealed a 6.3 cm heterogeneous mass in the left kidney, highly suspicious for malignancy. Based on NCCN guidelines, this is classified as a T1B lesion. - Radical nephrectomy scheduled for Friday. - Discussed risks of the procedure, including bleeding, infection, heart attack, stroke, , bowel injury, nerve injury, and injury to other organs. - Explained rationale for radical nephrectomy over partial nephrectomy or ablation/radiation, based on tumor size, location, and inability to reconstruct functional kidney tissue. - Reviewed expected hospital course, including likely overnight stay. - Preoperative labs and chest X-ray to be completed prior to surgery. 2. H/O insulin dependent diabetes mellitus ( (more content not included)... [facility] 03-17-2025 Discharge summary [facility] 03-17-2025 Radiology Diagnostic study note [facility] Imaging Services [address] [place] [address] Abdomen/Pelvis W IV Cont ONLY MR#: [id number] Acct: [id number] Name: LINA MEADOWS Rep #: [id number] : 1960 F 64 From: Eliud Kwok MD PCP: YONATAN MONTANA Status: REG ER Study:Abdomen/Pelvis W IV Cont ONLY Date of E xam: 03/17/25 Exam# [id number] Ordering Dr: Sanjiv Marcial DO PROCEDURE: ABDOMEN/PELVIS W IV CONT ONLY 03/17/2025 REASON FOR EXAM: FLANK PAIN Left flank pain. History of left renal mass. TECHNIQUE: Procedure Code: [id number] Modality: CT Procedure: ABDOMEN/PELVIS W IV CONT ONLY Coronal and Sagittal reconstruction series were provided. CONTRAST: Isovue-300 VOLUME: 100 mL One or more dose reduction techniques were used (e.g., Automated exposure control, adjustment of the mA and/or kV according to patient size, use of iterative reconstruction technique. RADIATION DOSE SUMMARY: CTDlvol: 7.25 mGy DLP: 235.26 mGycm COMPARISON: Prior study dated February 25, 2025. FINDINGS: Lung bases: Lung bases are clear. Liver: Normal size. No mass. Gallbladder: Multiple small gallstones. Spleen: Normal size. Pancreas: Normal size without evidence of mass surrounding inflammation or ductal dilation. Adrenals: Unremarkable Kidneys: Diffuse enlargement of the left kidney. There is a 6.2 cm by 6.4 cm heterogeneous mass arising from the mid and lower pole region of the left kidney. This is unchanged. Mild degree of left perinephric stranding. Bladder: Unremarkable Reproductive Organs: Unremarkable Bowel: Unremarkable Appendix: Unremarkable Lymph nodes: No significant lymph nodes are seen. Vasculature: The abdominal aorta and IVC are normal. Peritoneum / Retroperitoneum: Unremarkable Bones: Mild degree of disc space narrowing at the L5-S1 level. CT/Abdomen/Pelvis W IV Cont ONLY IMPRESSION: Once again, there is evidence of a 6.2 cm 6.4 cm heterogeneous mass arising fromthe mid and lower pole region of the left kidney. This is unchanged. Mild degree of perinephric stranding. Neoplastic process should be ruled out. Multiple small gallstones. Reading Location: [id number] CC: Dr. Sanjiv Marcial DO; YONATAN MONTANA ~ Lithographed Plate Inspector: Signed [facility] 03-17-2025 Discharge summary Note Date/Time March 17, 2025 5:04pm [facility] Medical Records Department [address] [place] [address] Emergency Department Summary 03/17/25 MR#: [id number] Acct: [id number] Name: LINA MEADOWS Rep #:[id number] : 1960 64 From: Sanjiv Abreu PCP: YONATAN MONTANA Status:REG ER Location: ED HPI History of Present Illness Chief Complaint: Flank Pain Informant: patient Onset/Context/Timing Onset: Today Context: Gradual Onset Timing: Continuous Quality: Stabbing, aching Location: Left flank Worsened by: Standing and ambulating Relieved by: Laying down Narrative Narrative: Patient presents with left flank pain that began today. Patient describes it asstabbing and aching. Patient states it is worse when she is standing and walking. Patient states it is better when she is able to lay down. Patient hasa known mass on her left kidney. Patient has not been able to follow-up with urology for this. Patient states she was at a correction on a top bunk. Patient states that when she was climbing down from the bunk 4 days ago, she hit her right lower ribs on the bed frame. Patient states she felt a pop at that time. Patient states this pain is improving. Patient admits to some nausea, vomiting,and diarrhea. Patient admits to some urinary frequency but denies any dysuria or hematuria. [facility] Medical History Mass of left kidney Sinus tachycardia seen on diagnostic cardiac sonographer Back pain Tobacco use Anxiety and depression [...] mg tablet 50 mg PO DAILY depression 03/16/25 History blood sugar diagnostic (FreeStyle #100 ea 05/04/24 Unk nown Rx Lite Strips) lisinopril 5 mg tablet 5 mg PO DAILY #30 tabs 05/0403/16/25 Rx metformin 1,000 mg tablet 1,000 mg PO DAILY #30 tabs 1 03/16/25 Rx insulin glargine U-300 conc 300 40 unit subcut QHS 10/2903/16/25 History unit/mL (1.5 mL) subcutaneous pen (Toujeo SoloStar U-300 Insulin) rosuvastatin 5 mg tablet 10 mg PO DAILY 12/08/2403/07 History insulin lispro 100 unit/mL 10 unit (0.1 mL) subcut TID AC 12/10/24 03/16/25 Rx subcutaneous pen (Humalog KwikPen diabetes #15 mL (U-100) Insulin) Allergy/AdvReac Type Severity Reaction Status Date / Time No Known Allergies Allergy Verified 03/17/25 13:58 Family History Mother Diabetes Father Diabetes Cancer [...] ROS ROS ED Constitutional Constitutional ED: Denies chills or fever(s) Eyes Eyes: Denies blurry vision or change in vision ENT ENT ED: Reports rhinorrhea; Denies sore throat Cardiovascular Cardiovascular: Denies chest pain or palpitations Respiratory/Chest Respiratory/Chest: Reports cough; Denies dyspnea Gastrointestinal Gastrointestinal: Reports diarrhea, nausea and vomiting Genitourinary Genitourinary ED: Reports urinary frequency; Denies dysuria or hematuria Musculoskeletal Musculoskeletal: Reports back pain; Denies neck pain Integumentary Denies abscess or rash Neurologic Neurologic: Denies headache(s) or weakness Allergic/Immunologic Allergic/Immunologic ED: Denies mouth swelling or urticaria EXAM Physical Exam Const Vital Signs: 03/17/25 13:56 03/17/25 14:56 03/17/25 14:57 Temperature 97.8 F Temperature Source Oral Pulse Rate 107 H 90 90 Respiratory Rate 18 16 16 Blood Pressure 156/85 H 162/76 H 162/76 H Blood Pressure Mean 108 104 104 Pulse Ox 100 100 100 Oxygen Delivery Method Room Air Room Air Room Air 03/17/25 16:00 Temperature Temperature Source Pulse Rate 94 Respiratory Rate 16 Blood Pressure 157/85 H Blood Pressure Mean 109 Pulse Ox 100 Oxygen Delivery Method Room Air Positive well nourished and well developed General Appearance ED: well developed and NAD HEENT Reports moist mucous membranes Neck supple and no JVD Chest Wall Chest Narrative: There is tenderness over the right lower ribs. There is no subcutaneous emphysema palpated. There is no bony crepitance or step-off. Resp normal respiratory effort and clear to auscultation bilaterally Cardio regular rate and regular rhythm GI non-distended Palpation: soft and tender epigastric, LUQ and RUQ; Negative for guarding or rebound tenderness present Back/Spine General Back: CVA tenderness left Extremity normal to inspection Neuro oriented x3, CN's II-XII intact bilaterally and no sensory deficits noted Sensorium / Orientation: alert Motor Exam: strength 5/5 throughout Psych mental status grossly normal MDM MDM MDM Narrative Medical decision making narrative: Differential diagnosis includes diabetic ketoacidosis, urinary tract infection, dehydration, electrolyte abnormality, renal calculus, renal mass, pyelonephritis, pancreatitis, and anxiety. CBC will be obtained to assess for leukocytosis and anemia. Comprehensive metabolic profile will be obtained to assess for electrolyte abnormality, hepatic function, and renal function. Lipase will be obtained to assess for pancreatitis. CT scan of the abdomen and pelvis will be obtained to assess for renal mass, ureteral calculus, and pancreatitis. Urinalysis will be obtained to assess for urinary tract infectionand hematuria. Lab Data Attestation: I reviewed the patient's lab results. Lab results narrative: CBC was reviewed. There is a mild anemia with a hemoglobin of 10.3 hematocrit 30.9. The remainder is within normal limits. Comprehensive metabolic profile was reviewed. Glucose was minimally elevated at 305. Alkaline phosphatase was slightly elevated at 105. Lipase was reviewed and was normal at 28. Urinalysiswas reviewed. There is no evidence of urinary tract infection or hematuria. Labs: Laboratory Results - last 24 hr 03/17/25 03/17/25 14:30 16:30 WBC 6.5 RBC 3.53 L Hgb 10.3 L Hct 30.9 L MCV 87.5 MCH 29.2 MCHC 33.3 RDW Std Deviation 41.6 RDW Coeff of Nellie 13.1 Plt Count 248 MPV 12.1 H Immature Gran % (Auto) 0.300 Neut % (Auto) 65.4 Lymph % (Auto) 24.5 Barber % (Auto) 7.8 Eos % (Auto) 1.4 Baso % (Auto) 0.6 Absolute Neuts (auto) 4.3 Absolute Lymphs (auto) 1.60 Nucleated RBC % 0 Sodium 135 Potassium 4.2 Chloride 99 Carbon Dioxide 22.0 Anion Gap 13 BUN 16 Creatinine 0.97 Estim Creat Clear Calc 49.74 L Est GFR (MDRD) Non-Af 66 BUN/Creatinine Ratio 16.3 Glucose 305 H Calcium 9.5 Total Bilirubin 0.32 AST 16 ALT 8 Alkaline Phosphatase 105 H Total Protein 7.3 Albumin 4.3 Globulin 3.0 Albumin/Globulin Ratio 1.4 Lipase 28 Urine Color Yellow Urine Clarity Clear Urine pH 6.0 Ur Specific [place] 1.010 Urine Protein 30 H Urine Glucose (UA) 100 H Urine Ketones Negative Urine Occult Blood Negative Urine Nitrite Negative Urine Bilirubin Negative Urine Urobilinogen Normal Ur Leukocyte Esterase 25 H Urine RBC 0 SEEN Urine WBC 0-5 SEEN Ur Squamous Epith Cells 0-5 SEEN Urine Bacteria 0 SEEN Hyaline Casts 0-5 SEEN Urine Mucus 0 SEEN Radiography Diagnostic Testing: Clinical Impression(s) from Imaging Studies Abdomen/Pelvis CT 03/17/25 14:23 IMPRESSION: Once again, there is evidence of a 6.2 cm 6.4 cm heterogeneous mass arising fromthe mid and lower pole region of the left kidney. This is unchanged. Mild degree of perinephric stranding. Neoplastic process should be ruled out. Multiple small gallstones. Reading Location: [id number] CT scan of the abdomen and pelvis was obtained. There is a 6.2 cm x 6.4 cm massin the mid and lower pole region of the left kidney. This is unchanged. There is mild degree of perinephric stranding. This was interpreted by the radiologist was also independently reviewed by myself. Treatment and Re-Evaluation :: Patient was given IV fluids, morphine, and Zofran. Patient feeling better on reevaluation. Patient was advised of the findings. Patient was instructed to follow-up with urology as scheduled. Patient was instructed to return if worse in any way. Patient understood and was agreeable with the plan. All questions were answered. Discharge Plan Triage Chief Complaint: Flank Pain ED Provider: Sanjiv Marcial Dx/Rx/DC Orders Clinical Impression: Acute left flank pain, Left renal mass Instructions: ED Flank Pain with Uncertain Cause Prescriptions: No Action (DME) FreeStyle Moncho 2 [...] unit subcut QHS rosuvastatin 5 mg tablet 10 mg PO DAILY insulin lispro [Humalog KwikPen Insulin] 100 unit/mL Insulin Pen 10 unit subcut TIDAC Qty: 15 3RF Primary Care Provider: GLORY WEEMS Referrals: GLORY WEEMS CRNP [Primary Care Provider] - 5-7 Days Print Language: Dominican Disposition Disposition: Home, Self Care What to do if you have Problems For any increased pain, shortness of breath, bleeding, nausea or vomiting, chestpain, or any unexpected problems, contact your Primary Care Provider. Call [facility] ([phone]) or report to the closest Emergency Room. Call 911 if necessary. 03/17/25 9537 <Electronically signed by Sanjiv Marcial DO> Cosigner Signature (if applicable): CC: YONATAN MONTANA ~ Signed [facility] Work Phone: [phone]) 120-991608-27-2025 Telephone encounter Note* Telephone Encounter - Daysi Giron - 03/02/2025 2:25 PM EDT Left message for patient to call mark. [facility]08-27-2025 Miscellaneous Notes* Telephone Encounter - Daysi Giron - 03/02/2025 2:25 PM EDT Left message for patient to call mark. * Telephone Encounter - Daysi Giron - 03/02/2025 9:04 AM EDT RAL Left Radical Nephrectomy Neoplasm of uncertain behavior of left kidney UCx expected by 03/11/25 Surgery: 03/21/25 12:30 PM [facility] Arrive at 10:30 AM H&P same day I will contact patient to confirm surgery details. Note: Pt is to drop off disk with imaging from 12/08/24. CXR & labs may be required after Dr. Felipe reviews. documented in this [facility]Children[facility] Telephone encounter Note * Telephone Encounter - Daysi Giron - 03/02/2025 9:04 AM EDT RAL Left Radical Nephrectomy Neoplasm of uncertain behavior of left kidney UCx expected by 03/11/25 Surgery: 03/21/25 12:30 PM [facility] Arrive at 10:30 AM H&P same day I will contact patient to confirm surgery details. Note: Pt is to drop off disk with imaging from 12/08/24. CXR & labs may be required after Dr. Felipe reviews. [facility]08-23-2025 Radiology Diagnostic study note [facility] Imaging Services [address] [place], [place] [address] CT Chest, Abd, Pel w/Contrast MR#: [id number] Acct: [id number] Name: LINA MEADOWS Rep #: [id number] : 1960 F 64 From: Jakob Culver MD PCP: YONATAN MONTANA Status: REG ER Study:CT Chest, Abd, Pel w/Contrast Date of E xam: 02/25/25 Exam# [id number] Ordering Dr: Zane Gallardo DO PROCEDURE: CT [...] No acute findings as imaged. Reading Location: [facility] CC: Dr. Zane Gallardo DO; YONATAN MONTANA ~ Lithographed Plate Inspector: Signed [facility]08-22-2025 Telephone encounter Note* Telephone Encounter - Jayla Joseph RN - 02/25/2025 2:55 PM EDT Spoke with patient about the importance of getting it done and Dr. Felipe reviewing the labs and last CXR and needing these 2 moving forward. I made her aware that she can even do both as a Walk in Basis in [place] when she figures out living situation. She verbalizes understanding of importance. [facility]08-22-2025 Miscellaneous Notes* Telephone Encounter - Jayla Joseph RN - 02/25/2025 2:55 PM EDT Spoke with patient about the importance of getting it done and Dr. Felipe reviewing the labs and last CXR and needing these 2 moving forward. I made her aware that she can even do both as a Walk in Basis in [place] when she figures out living situation. She verbalizes understanding of importance. * Telephone Encounter - Carlos Forrester - 02/25/2025 2:25 PM EDT I spoke with the patient to assist in scheduling lab work and an XR but was unable to get these scheduled. The patient stated since she does not have transportation and no place to stay it is really hard for her to schedule anything at this time. Patient stated she would give our office a call packto schedule these when she was able to work out her ride situation. * Telephone Encounter - Carlos Forrester - 02/25/2025 8:34 AM EDT Attempted to speak with patient to schedule, I left a voicemail for her to return our call to schedule. Unable to send a SayNow message. * Telephone Encounter - Jayla Joseph RN - 02/24/2025 1:10 PM EDT Spoke with patient and she states that she had labs when she was overnight in [place] 12-08-2024 through the 12-10-2024. She has the CD with the imaging on it and will get ride to drop off. Spoke with [facility] and she will fax labs, and the CXR was from . Received the records. Dr. Small reviewed the labs and CXR received and he has ordered what he needs done. Please assist with scheduling CXR and labs in [place] for patient. She has transportation issues right now. * Telephone Encounter - Angella Seo - 02/23/2025 1:38 PM EDT Patient called to cancel her 02/24 appointment because she was recently evicted and had to cancel her Provide A Ride due to not having a pick-up address. Patient was already scheduled for 03/24 and sheis hoping she can get everything straightened out by then. Thank you, Angella documented [facility]Children[facility] Telephone encounter Note * Telephone Encounter - Carlos Forrester - 02/25/2025 2:25 PM EDT I spoke with the patient to assist in scheduling lab work and an XR but was unable to get these scheduled. The patient stated since she does not have transportation and no place to stay it is really hard for her to schedule anything at this time. Patient stated she would give our office a call packto schedule these when she was able to work out her ride situation. [facility]08-22-2025 Telephone encounter Note* Telephone Encounter - Carlos Forrester - 02/25/2025 8:34 AM EDT Attempted to speak with patient to schedule, I left a voicemail for her to return our call to schedule. Unable to send a SayNow message. [facility]08-21-2025 Note* Addendum Note - Meredith Felipe MD - 02/24/2025 1:34 PM EDTAddended by: MEREDITH FELIPE on: 02/24/2025 01:34 PM Modules accepted: Orders [facility]08-21-2025 Miscellaneous Notes* Addendum Note - Meredith Felipe MD - 02/24/2025 1:34 PM EDTAddended by: MEREDITH FELIPE on: 02/24/2025 01:34 PM Modules accepted: Orders documented in this encounterChildren'[facility]08-[facility]-2025 Telephone encounter Note * Telephone Encounter - Jayla Joseph RN - 02/24/2025 1:10 PM EDT Spoke with patient and she states that she had labs when she was overnight in [place] 12-08-2024 through the 12-10-2024. She has the CD with the imaging on it and will get ride to drop off. Spoke with [facility] and she will fax labs, and the CXR was from . Received the records. Dr. Small reviewed the labs and CXR received and he has ordered what he needs done. Please assist with scheduling CXR and labs in [place] for patient. She has transportation issues right now. [facility]08-21-2025 NoteHNO ID: [id number] Author: MEREDITH FELIPE MD Service: ? Author [...] visit. Either the patient or their legal rental representative has been informed of the risks [...] risks such as but not limited to [place], DVT, PE, CVA, Pneumonia, C. Diff, ileus, [...] soon. No results found for this basename: uglucpoc,ubilipoc,uketonpoc,usgpoc,uhbpoc,uphpoc,upropoc,uuropoc,unitpoc,uwbcpoc ,ucolpoc,uclarpoc No results found for: CREAT Medications/allergies reviewed and updated. PAST MEDICAL HISTORY Diagnosis Date Healthy adult on routine physical examination No (more content not included)...[facility]08-21-2025 History of Present illness Narrative* Meredith Felipe MD - 02/24/2025 10:01 AM EDT Images from the original note were not [...] licensure. The patient's identity and physical location wereverified at the time of this visit. Either the patient or their legal rental representative has been informed of the risks and benefits of -- and alternatives to -- treatment through a remote evaluation andconsents to proceed with the evaluation remotely. Lina [...] needing to convert to open procedure. Discussed riskof needing blood transfusion. Discussed anesthetic risks and post operative risks such as but not limited to WA, DVT, PE, CVA, Pneumonia, C. Diff, ileus, [...] soon. No results found for this basename: uglucpoc,ubilipoc,uketonpoc,usgpoc,uhbpoc,uphpoc,upropoc,uuropoc ,unitpoc,uwbcpoc,ucolpoc,uclarpoc No results found for: CREAT Medications/allergies reviewed [...] and agrees with treatment plan. Recording using [employer] software for draft documentation of the visit was discussed with the patient/authorized rental representative; all questions welcomed and answered. Patient/authorized rental representative agreed to proceed Patient will call [...] enhancing mass in your left kidney, which isconsidered malignant until proven otherwise. - We reviewed [...] necessary evaluations. [1] [2] documented in this encounterChildren'S [facility]08-[facility]-2025 Telephone encounter Note * Telephone Encounter - Angella Seo - 02/23/2025 1:38 PM EDT Patient called to cancel her 02/24 appointment because she was recently evicted and had to cancel her Provide A Ride due to not having a pick-up address. Patient was already scheduled for 03/24 and sheis hoping she can get everything straightened out by then. Thank you, Angella [facility]06-06-2025 Discharge summary Author Ciro Mendosa [facility] Note Date/Time December 10, 2024 9:03a [facility] Medical Records Department [address] [place] [address] Discharge Summary 12/10/24 0858 MR#: [id number] Acct: [id number] Name: ThomasLINA E Rep #:[id number] : 1960 64 From: Ciro Mendosa MD PCP: Dr. Milind Lamb MD Status:ADM I N Location: [place] [address] Providers Date of Admission: 12/09/24 Date of [...] Self Care Charges/Coding Visit Charges Inpatient E&M: 46696 Disch Hosp >30min 12/10/24 0903 <Electronically signed by Ciro Mendosa MD> Cosigner Signature (if applicable): CC: Dr. Ciro Mendosa MD; Dr. Milind Lamb MD~ Signed [facility] Work Phone: 1(366) 783-317906-06-2025 Discharge summary Author Miki Sen [facility] Note Date/Time December 10, 2024 8:29a m [facility] Medical Records Department [address] [place] [address] Emergency Department Summary 12/08/24 MR#: [id number] Acct: [id number] Name: LINA MEADOWS Rep #:[id number] : 1960 64 From: Miki Sen DO PCP: Dr. Milind Lamb MD Status:ADM I N [id number] Miki Sen DO on [...] to being out of her testing strips. [facility] Medical History Accelerated hypertension DKA (diabetic ketoacidosis) Sinus tachycardia seen on diagnostic cardiac sonographer Diabetic ketoacidosis associated with type 1 diabetes [...] follow commands and that she was at [facility] year is 2024 Skin: Warm, dry, tact [...] % (Auto) 67.7 Lymph % (Auto) 22.8 Barber % (Auto) 7.7 Eos % (Auto) 0.9 [...] Color Urine Clarity Urine pH Ur Specific [place] Urine Protein Urine Glucose (UA) Urine Ketones [...] (Auto) Neut % (Auto) Lymph % (Auto) Barber % (Auto) Eos % (Auto) Baso % [...] Clarity Clear Urine pH 6.0 Ur Specific [place] 1.015 Urine Protein 30 H Urine Glucose [...] 11:16 pm with readback verification. Reading Location: [id number] Discharge Plan Triage Chief Complaint: Hyperglycemia ED [...] Primary Care Provider: Milind Lamb Referrals: Milind Labm MD [Primary Care Provider] - Print Language: Dominican Disposition Disposition: Acute Care Hospital [facility] What to do if you have Problems For any increased pain, shortness of breath, bleeding, nausea or vomiting, chestpain, or any unexpected problems, contact your Primary Care Provider. Call [facility] ([phone]) or report to the closest Emergency Room. Call 911 if necessary. 12/09/24 0019 <Electronically signed by Miki Sen DO> Cosigner Signature (if applicable): CC: Dr. Milind Lamb MD ~ Signed [facility] Work Phone: 1(294) 443-452806-06-2025 Discharge summary [facility] Medical Records Department [address] [place] [address] Discharge Summary 12/10/24 0858 MR#: [id number] Acct: [id number] Name: LINA MEADOWS Rep #:[id number] : 1960 64 From: Ciro Mendosa MD PCP: Dr. Milind Lamb MD Status:ADM I N Location: [place] [address] Providers Date of Admission: 12/09/24 Date of [...] Self Care Charges/Coding Visit Charges Inpatient E&M: 14971 Disch Hosp >30min 12/10/24 0903 Cosigner Signature (if applicable): CC: Dr. Ciro Mendosa MD; Dr. Milind Lamb MD~ Signed [facility]06-06-2025 [facility] Discharge summary [facility] Medical Records Department [address] [place] [address] Emergency Department Summary 12/08/24 MR#: [id number] Acct: [id number] Name: LINA MEADOWS Rep #:[id number] : 1960 64 From: Miki Sen DO PCP: Dr. Milind Lamb MD Status:ADM I N Location: [place] [address] Miki Sen DO on [...] to being out of her testing strips. [facility] Medical History Accelerated hypertension DKA (diabetic ketoacidosis) Sinus tachycardia seen on diagnostic cardiac sonographer Diabetic ketoacidosis associated with type 1 diabetes [...] glargine U-300 conc 300 40 unit subcut HS 10/29 Unknown History unit/mL (1.5 mL) subcutaneous [...] follow commands and that she was at [facility] year is 2024 Skin: Warm, dry, tact [...] % (Auto) 67.7 Lymph % (Auto) 22.8 Barber % (Auto) 7.7 Eos % (Auto) 0.9 [...] Color Urine Clarity Urine pH Ur Specific [place] Urine Protein Urine Glucose (UA) Urine Ketones [...] (Auto) Neut % (Auto) Lymph % (Auto) Barber % (Auto) Eos % (Auto) Baso % [...] Clarity Clear Urine pH 6.0 Ur Specific [place] 1.015 Urine Protein 30 H Urine Glucose [...] 11:16 pm with readback verification. Reading Location: [facility] Discharge Plan Triage Chief Complaint: Hyperglycemia [...] MD [Primary Care Provider] - Print Language: Dominican Disposition Disposition: Acute Care Hospital [facility] What to do if you have Problems For any increased pain, shortness of breath, bleeding, nausea or vomiting, chestpain, or any unexpected problems, contact your Primary Care Provider. Call [facility] ([phone]) or report tothe closest Emergency Room. Call 911 if necessary. 12/09/24 0019 Cosigner Signature (if applicable): CC: Dr. Milind Lamb MD ~ Signed [facility]06-05-2025 Progress note Author Ciro [facility] Note Date/Time December 09, 2024 9:33a m [facility] Medical Records Department [address] [place] [address] Progress Note - Hospitalist 12/09/24 0906 MR#: [id number] Acct: [id number] Name: LINA MEADOWS Rep #:[id number] : 1960 64 From: Ciro Mendosa MD [...] % (Auto) 67.7, Lymph % (Auto) 22.8, Barber % (Auto) 7.7, Eos % (Auto) 0.9, [...] Albumin 4.3, Globulin 3.2, Albumin/Globulin Ratio 1.4, Iarwfd12, b-Hydroxybutyric mmol/L 7.9 H, POC Glucose > 500 H* 12/08/24 20:49: POC Glucose 491 H* 12/08/24 22:11: POC Glucose 380 H 12/08/24 22:25: Urine Color Yellow, Urine Clarity Clear, Urine pH 6.0, Ur Specific [place] 1.015, Urine Protein 30 H, Urine Glucose [...] % (Auto) 52.3, Lymph % (Auto) 34.5, Barber % (Auto) 9.7, Eos % (Auto) 2.7, [...] 11:16 pm with readback verification. Reading Location: [facility] Physical Exam Narrative GENERAL: cooperative but [...] 52 Minutes Charges/Coding Visit Charges Inpatient E&M: 11027 Subs Hosp L3 12/09/2433 <Electronically signed by Ciro Mendosa MD> Cosigner Signature (if applicable): CC: ~ Signed [facility] Work Phone: 1(249) 797-499306-05-2025 Progress note [facility] Medical Records Department [address] [place] [address] [place] [address] Progress Note - Hospitalist 12/09/24905 MR#: [id number] Acct: [id number] Name: LINA MEADOWS Rep #:[id number] : 1960 64 From: Ciro Mendosa MD [...] Neut% (Auto) 67.7, Lymph % (Auto) 22.8, Barber % (Auto) 7.7, Eos % (Auto) 0.9, [...] Albumin 4.3, Globulin 3.2, Albumin/Globulin Ratio 1.4, Grsdyg21, b-Hydroxybutyric mmol/L 7.9 H, POC Glucose > 500 H* 12/08/24 20:49: POC Glucose 491 H* 12/08/24 22:11: POC Glucose 380 H 12/08/24 22:25: Urine Color Yellow, Urine Clarity Clear, Urine pH 6.0, Ur Specific [place] 1.015, Urine Protein 30 H, Urine Glucose [...] Neut %(Auto) 52.3, Lymph % (Auto) 34.5, Barber % (Auto) 9.7, Eos % (Auto) 2.7, [...] relayed directly by me by telephone to SenMiki on 12/08/2024t 11:16 pm with readback verification. Reading Location: [facility] Physical Exam Narrative GENERAL: cooperative but [...] 52 Minutes Charges/Coding Visit Charges Inpatient E&M: 58186 Subs Hosp L3 12/09/24 0933 Cosigner Signature (if applicable): CC: ~ Signed [facility]06-05-2025 History and physical note Author Zelda Ibarra [facility] Note Date/Time December 09, 2024 1:00a m [facility] Medical Records Department [address] [place] [address] H&P Exam - Hospitalist 12/09/24 0010 MR#: [id number] Acct: [id number] Name: LINA MEADOWS Rep #:[id number] : 1960 64 From: Zelda Ibarra MD PCP: Dr. Milind Lamb MD Status:ADM I N Location: ICU ICU HPI - General General Date of Admission: 12/09/24 Date of Service: 12/09/24 Chief Complaint: N/V/D HPI Narrative The patient is a 64 y/o F w/ PMHx: IDDM, Anxiety and Depression, Former tobacco use, Chart reported history of EtOH abuse, HTN, HLD, GERD who presents to the [facility] ED on 12/09/2024 with history of 24 [...] and eventually placed on insulin drip. [facility] Medical History Sinus tachycardia seen on diagnostic cardiac sonographer Back pain Tobacco use Anxiety and depression [...] % (Auto) 67.7, Lymph % (Auto) 22.8, Barber % (Auto) 7.7, Eos % (Auto) 0.9, [...] Clarity Clear, Urine pH 6.0, Ur Specific [place] 1.015, Urine Protein 30 H, Urine Glucose [...] pm with readback verification. Reading Location: [facility] Assessment & Plan Assessment/Plan (1) Diabetic ketoacidosis: PLAN: Plan The patient is a 64 y/o F w/ PMHx: IDDM, Anxiety and Depression, Former tobacco use, Chart reported history of EtOH abuse, HTN, HLD, GERD who presents to the [facility] ED on 12/09/2024 with history of persistent [...] prophylaxis: Lovenox. Charges/Coding Visit Charges Inpatient E&M: 34086 Init Hosp L3 12/09/24 0100 <Electronically signed by Zelda Ibarra MD> Cosigner Signature (if applicable): CC: Dr. Zelda Ibarra MD; Dr. Milind Lamb MD~ Signed [facility] Work Phone: 1(755) 163-666006-05-2025 Evaluation note* Diagnosis Onset Date Resolution Status Admit Date Abnormal computed tomography of abdomen and pelvis acute December 09 12:10am Diabetic ketoacidosis acute Dec 12:10am [facility] Work Phone: 1(871) 735-535706-05-2025 Evaluation note* Diagnosis Onset Date Resolution Status Admit Date Abnormal computed tomography of abdomen and pelvis acute December 09 12:10am Diabetic ketoacidosis resolved Dec 12:10am [facility] Work Phone: 1(172) 129-883806-05-2025 History and physical note [facility] Medical Records Department [address] [place] [address] H&P Exam - Hospitalist 12/09/24 0010 MR#: [id number] Acct: [id number] Name: LINA MEADOWS Rep #:[id number] : 1960 64 From: Zelda Ibarra MD PCP: Dr. Milind Lamb MD Status:ADM I N [facility] - [facility] General Date of Admission: 12/09/24 Date of Service: 12/09/24 Chief Complaint: N/V/D HPI Narrative The patient is a 64 y/o F w/ PMHx: IDDM, Anxiety and Depression, Former tobacco use, Chart reportedhistory of EtOH abuse, HTN, HLD, GERD who presents to the [facility] ED on 12/09/2024 with history of 24 [...] and eventually placed on insulin drip. [facility] Medical History Sinus tachycardia seen on diagnostic cardiac sonographer Back pain Tobacco use Anxiety and depression [...] Neut% (Auto) 67.7, Lymph % (Auto) 22.8, Barber % (Auto) 7.7, Eos % (Auto) 0.9, [...] Clarity Clear, Urine pH 6.0, Ur Specific [place] 1.015, Urine Protein 30 H, Urine Glucose [...] 11:16 pm with readback verification. Reading Location: [id number] Assessment & Plan Assessment/Plan (1) Diabetic ketoacidosis: PLAN: Plan The patient is a 64 y/o F w/ PMHx: IDDM, Anxiety and Depression, Former tobacco use, Chart reportedhistory of EtOH abuse, HTN, HLD, GERD who presents to the [facility] ED on 12/09/2024 with history of persistent [...] prophylaxis: Lovenox. Charges/Coding Visit Charges Inpatient E&M: 18437 Init Hosp L3 12/09/24 0100 Cosigner Signature (if applicable): CC: Dr. Zelda Ibarra MD; Dr. Milind Lamb MD~ Signed [facility]06-05-2025 Discharge summary [facility] Medical Records Department [address] [place] [address] Emergency Department Summary 12/08/24 MR#: [id number] Acct: [id number] Name: LINA MEADOWS Rep #:[id number] : 1960 64 From: Miki Sen DO [...] to being out of her testing strips. [facility] Medical History Accelerated hypertension DKA (diabetic ketoacidosis) Sinus tachycardia seen on diagnostic cardiac sonographer Diabetic ketoacidosis associated with type 1 diabetes [...] follow commands and that she was at [facility] year is 2024 Skin: Warm, dry, tact [...] % (Auto) 67.7 Lymph % (Auto) 22.8 Barber % (Auto) 7.7 Eos % (Auto) 0.9 [...] Color Urine Clarity Urine pH Ur Specific [place] Urine Protein Urine Glucose (UA) Urine Ketones [...] (Auto) Neut % (Auto) Lymph % (Auto) Barber % (Auto) Eos % (Auto) Baso % [...] Clarity Clear Urine pH 6.0 Ur Specific [place] 1.015 Urine Protein 30 H Urine Glucose [...] 11:16 pm with readback verification. Reading Location: [facility] Discharge Plan Triage Chief Complaint: Hyperglycemia [...] MD [Primary Care Provider] - Print Language: Dominican Disposition Disposition: Acute Care Hospital [facility] What to do if you have Problems For any increased pain, shortness of breath, bleeding, nausea or vomiting, chestpain, or any unexpected problems, contact your Primary Care Provider. Call [facility] ([phone]) or report tothe closest Emergency Room. Call 911 if necessary. 12/09/24 0019 Cosigner Signature (if applicable): CC: Dr. Milind Lamb MD ~ Signed [facility]06-04-2025 Radiology Diagnostic study note [facility] Imaging Services [address] [place] [address] Abdomen/Pelvis W IV Cont ONLY MR#: [id number] Acct: [id number] Name: LINA MEADOWS Rep #: [id number] : 1960 F 64 From: Leigha Gaviria MD PCP: Dr. Milind Lamb MD Status: REG E R Study:Abdomen/Pelvis W IV Cont ONLY Date of E xam: 12/08/24 Exam# [id number] Ordering Dr: Marvin Sen DO PROCEDURE: ABDOMEN/PELVIS [...] 11:16 pm with readback verification. Reading Location: [facility] CC: Dr. Milind Lamb MD; Dr. Miki Sen DO ~ Lithographed Plate Inspector: Signed [facility]06-04-2025 Discharge summary Author Miki Sen [facility] Note Date/Time December 09, 2024 12:19 am [facility] Medical Records Department [address] [place] [address] Emergency Department Summary 12/08/24 MR#: [id number] Acct: [id number] Name: LINA MEADOWS Rep #:[id number] : 1960 64 From: Miki Sen DO [...] to being out of her testing strips. [facility] Medical History Accelerated hypertension DKA (diabetic ketoacidosis) Sinus tachycardia seen on diagnostic cardiac sonographer Diabetic ketoacidosis associated with type 1 diabetes [...] follow commands and that she was at [facility] year is 2024 Skin: Warm, dry, tact [...] % (Auto) 67.7 Lymph % (Auto) 22.8 Barber % (Auto) 7.7 Eos % (Auto) 0.9 [...] Color Urine Clarity Urine pH Ur Specific [place] Urine Protein Urine Glucose (UA) Urine Ketones [...] (Auto) Neut % (Auto) Lymph % (Auto) Barber % (Auto) Eos % (Auto) Baso % [...] Clarity Clear Urine pH 6.0 Ur Specific [place] 1.015 Urine Protein 30 H Urine Glucose [...] 11:16 pm with readback verification. Reading Location: [facility] Discharge Plan Triage Chief Complaint: Hyperglycemia [...] MD [Primary Care Provider] - Print Language: Dominican Disposition Disposition: Acute Care Hospital [facility] What to do if you have Problems For any increased pain, shortness of breath, bleeding, nausea or vomiting, chestpain, or any unexpected problems, contact your Primary Care Provider. Call [facility] ([phone]) or report to the closest Emergency Room. Call 911 if necessary. 12/09/24 0019 <Electronically signed by Miki Sen DO> Cosign Signature (if applicable): CC: Dr. Milind Lamb MD ~ Signed [facility] Work Phone: 1([phone]) 591-403510-29-2024 [facility]01-23-2024 Discharge summary Author Reece Galvan [facility] July 29, 2023 4:22pm Note Date/Time July 29, 2023 2 :09pm [facility] Medical Records Department [address] [place] [address] Emergency Department Summary 07/29/23 MR#: [id number] Acct: [id number] Name: LINA MEADOWS Rep #:[id number] : 1960 63 From: Reece Galvan MD PCP: Dr. Milind Lamb MD Status:REG [...] (Auto) 72.9 H Lymph % (Auto) 19.3 Barber % (Auto) 5.7 Eos % (Auto) 1.1 [...] Clarity Clear Urine pH 6.0 Ur Specific [place] 1.020 Urine Protein Negative Urine Glucose (UA) [...] (Auto) Neut % (Auto) Lymph % (Auto) Barber % (Auto) Eos % (Auto) Baso % (Auto) Absolute Neuts (auto) Absolute Lymphs (auto) Nucleated RBC % Sodium Potassium Chloride Carbon Dioxide Anion Gap BUN Creatinine Estim Creat Clear Calc Est GFR (MDRD) Af Amer Est GFR (MDRD) Non-Af BUN/Creatinine Ratio Glucose Calcium Troponin I High Sens Urine Color Urine Clarity Urine pH Ur Specific [place] Urine Protein Urine Glucose (UA) Urine Ketones [...] Hyperglycemia Other Complaint: Weakness ED Provider: Reece Galvan Dx/Rx/DC Orders Clinical Impression: Hyperglycemia due to [...] your Primary Care Provider. Call [facility] ([phone]) or report to the closest Emergency Room. Call 911 if necessary. 07/29/231621 <Electronically signed by Reece Galvan MD> Cosigner Signature (if applicable): CC: Dr. Milind Lamb MD ~ Signed [facility] Work Phone: [phone]) 400-304312-27-2023 Discharge summary Author Steven Voss [facility] July 02, 2023 8:59pm Note Date/Time July 02, 2023 7:16pm [facility] Medical Records Department [address] [place] [address] Emergency Department Summary 07/02/23 MR#: [id number] Acct: [id number] Name: LINA MEADOWS Rep #:[id number] : 1960 63 From: Steven Voss MD [...] denies cough or sputum production. Denies dyspnea Ackerly exertion. She denies abdominal pain, nausea, vomiting [...] (Auto) 74.0 H Lymph % (Auto) 20.1 Barber % (Auto) 4.6 Eos % (Auto) 0.1 [...] Clarity Clear Urine pH 5.0 Ur Specific [place] 1.020 Urine Protein 30 H Urine Glucose [...] follows: Interpretation: Sinus Tachycardia (Rate is 113. SD interval is 138 ms. QRS durations 88 ms. QT duration 344 ms. Ashley is normal. There is nonseptic changes which [...] insulin to treat DKA), Discussing w/Patient &/or Family/Die Presser, Discussing w/Consultants and Arranging Admission or Transfer Discharge Plan Dx/Rx/DC Orders Clinical Impression: Pyuria, Back pain, Diabetic ketoacidosis associated with type 1 diabetes mellitus, Elevated serum creatinine, Sinus tachycardia by electrocardiogram Disposition Disposition: Acute Care Hospital [facility] What to do if you have Problems For any increased pain, shortness of breath, bleeding, nausea or vomiting, chestpain, or any unexpected problems, contact your Primary Care Provider. Call [facility] ([phone]) or report to the closest Emergency Room. Call 911 if necessary. 07/02/232058 <Electronically signed by Steven Voss MD> Cosigner Signature (if applicable): CC: Dr. Milind Lamb MD ~ Signed [facility] Work Phone: [phone]) 562-908012-27-2023 Hospital Discharge instructions Additional Instructions Ice 20 minutes on, 20 minutes off. Do not do heat. Perform lumbar stretching exercises as shown at bedside and on discharge paperwork. If nosebleed starts again, hold 20 minutes on continuous pressure, if bleeding does not stop, return to the ER for reevaluation. Use kxey-lyc-jzfozxt MiraLAX twice a day for the next 3 to 4 days for good bowel relief. Use jpal-llu-knqaucr magnesium citrate or mineral oil 1-2 bottles a day for the next 2 days to help with the bowels as well. Use either kdbx-eiu-qzcadhp Motrin, Advil, ibuprofen or Naprosyn daily to help with pain and inflammation. Follow-up and establish [facility]CP [facility] Work Phone: [phone]) 753-889101-22-[address] Ahumada [facility] July 28, 2022 2:11pm Note Date/Time July 28, 2022 2 :11pm [facility] Medical Records Department [address] [place] [address] Discharge Summary 07/28/22 1409 MR#: [id number] Acct: [id number] Name: LINA MEADOWS Rep #:[id number] : 1960 62 From: Sanjiv Ahumada DO PCP: Dr. Milind Lamb MD Status:ADM I N Location: [place] [id number] Providers Date of Admission: 07/26/22 Date of [...] Document 07/26/22 15:35 YAZ (Rec: 07/26/22 15:35 [facility] [id number]) Nutrition Malnutrition Evidence of Malnutrition Exists Yes [...] mg PO BID Referrals / Follow Up: [facility] [Provider Group] - Within 1 Month Milind Lamb MD [Primary Care Provider] - Within 2 Weeks Disposition Disposition (needs filled in before D/C Order can be placed): Home, Self Care Charges/Coding Visit Charges Inpatient E&M: 53880 Disch Hosp >30min 07/28/22 1411 <Electronically signed by Sanjiv Ahumada DO> Cosigner Signature (if applicable): CC: Dr. Sanjiv Ahumada DO; Dr. Milind Lamb MD~ Signed [facility] Work Phone: [phone]) 625-569901-22-[address] Ahumada [facility] July 28, 2022 2:09pm Note Date/Time July 28, 2022 2 :02pm [facility] Medical Records Department [address] [place] [address] Instructions for Home/Discharge Instructions 07/28/22 1402 MR#: [id number] Acct: [id number] Name: LINA MEADOWS Rep #:[id number] : 1960 62 From: Sanjiv Ahumada DO [...] mg PO BID Referrals / Follow Up: [facility] [Provider Group] - Within 1 Month Milind Lamb MD [Primary Care Provider] - Within 2 Weeks Disposition Disposition (needs filled in before D/C Order can be placed): Home, Self Care 07/28/22 1409<Electronically signed by Sanjiv Ahumada DO>Sanjiv Ahumada DO CC: Dr. Milind Lamb MD ~ Signed [facility] Work Phone: 1(807) 820-980001-21-[address] Ahumada [facility] July 27, 2022 2:19pm Note Date/Time July 27, 2022 7 :43am [facility] Medical Records Department [address] [place] [address] Progress Note - Hospitalist 07/27/22 0739 MR#: [id number] Acct: [id number] Name: LINA MEADOWS Rep #:[id number] : 1960 62 From: Sanjiv Ahumada DO PCP: Dr. Milind Lamb MD Status:ADM I N Location: [place] [address] Subjective Subjective Feels well. Objective Data Objective [...] 07/26/22 15:35 SLA (Rec: 07/26/22 15:35 SLA [id number]) Nutrition Malnutrition Evidence of Malnutrition Exists Yes [...] 79.8 H, Lymph % (Auto) 12.1 L, Barber % (Auto) 5.0, Eos % (Auto) 0.1, [...] Clarity Clear, Urine pH 6.5, Ur Specific [place] 1.015, Urine Protein 30 H, Urine Glucose [...] % (Auto) 58.4, Lymph % (Auto) 29.5, Barber % (Auto) 10.3 H, Eos % (Auto) [...] oral agents. Charges/Coding Visit Charges Inpatient E&M: 53088 Subs Hosp L2 07/27/22 8774 <Electronically signed by Sanjiv Ahumada DO> Cosigner Signature (if applicable): CC: ~ Signed [facility] Work Phone: 1([phone]) 675-254201-20-2023 History and physical note Author Dr. Ahumada [facility] July 26, 2022 1:45pm Note Date/Time July 26, 2022 1 :45pm [facility] Medical Records Department [address] [place] [address] H&P Exam - Hospitalist 07/26/22 1340 MR#: [id number] Acct: [id number] Name: LINA MEADOWS Rep #:[id number] : 1960 62 From: Sanjiv Ahumada DO PCP: Dr. Milind Lamb MD Status:ADM I N Location: ICU ICU06-1 HPI - General General Date of Admission: 07/26/22 Date of Service: 07/26/22 Chief Complaint: weak HPI Narrative LINA MEADOSW, is a 62 F who presents presents [...] hospitalist service was contacted for admission. [facility] Medical History Anxiety and depression COVID-19 [...] 79.8 H, Lymph % (Auto) 12.1 L, Barber % (Auto) 5.0, Eos % (Auto) 0.1, [...] PLAN: Plan VTE prophylaxis with enoxaparin. 07/26/22 8452 <Electronically signed by Sanjiv Ahumada DO> Cosigner Signature (if applicable): CC: Dr. Sanjiv Ahumada DO; Dr. Milind Lamb MD~ Signed [facility] Work Phone: 1(371) 732-877201-20-[address] Voss [facility] July 26, 2022 12:19pm Note Date/Time July 26, 2022 1 1:41am [facility] Medical Records Department [address] [place] [address] Emergency Department Summary 07/26/22 MR#: [id number] Acct: [id number] Name: LINA MEADOWS Rep #:[id number] : 1960 62 From: Steven Voss MD [...] 79.8 H Lymph % (Auto) 12.1 L Barber % (Auto) 5.0 Eos % (Auto) 0.1 [...] Interpretation: Sinus Tachycardia (Heart rate is 111. SD interval is 188 ms. Cures duration 92 ms. QT duration during 26 ms. Ashley is normal. There isartifact noted. There may [...] creatinine, Tachypnea Disposition Disposition: Acute Care Hospital [facility] What to do if you have Problems For any increased pain, shortness of breath, bleeding, nausea or vomiting, chestpain, or any unexpected problems, contact your Primary Care Provider. Call [facility] ([phone]) or report to the closest Emergency Room. Call 911 if necessary. 07/26/22 1219 <Electronically signed by Steven Voss MD> Cosigner Signature (if applicable): CC: Dr. Milind Lamb MD ~ Signed [facility] Work Phone: [phone]) 184-544401-20-[address] Voss [facility] July 26, 2022 12:19pm Note Date/Time July 26, 2022 1 1:41am [facility] Medical Records Department [address] [place] [address] Emergency Department Summary 07/26/22 MR#: [id number] Acct: [id number] Name: LINA MEADOWS Rep #:[id number] : 1960 62 From: Steven Voss MD [...] 79.8 H Lymph % (Auto) 12.1 L Barber % (Auto) 5.0 Eos % (Auto) 0.1 [...] Interpretation: Sinus Tachycardia (Heart rate is 111. SD interval is 188 ms. Cures duration 92 ms. QT duration during 26 ms. Ashley is normal. There isartifact noted. There may [...] creatinine, Tachypnea Disposition Disposition: Acute Care Hospital [facility] What to do if you have Problems For any increased pain, shortness of breath, bleeding, nausea or vomiting, chestpain, or any unexpected problems, contact your Primary Care Provider. Call [facility] ([phone]) or report to the closest Emergency Room. Call 911 if necessary. 07/26/22 1217 <Electronically signed by Steven Voss MD> Cosigner Signature (if applicable): CC: Dr. Milind Lamb MD ~ Signed [facility] Work Phone: 1([phone]) 598-137111-01-2022 Hospital Discharge instructions Additional Instructions Use oyly-zpx-jtddnsn cold and flu medicine to help with your symptoms. You can use sugar-free cough drops. Use the inhaler given to you 1 to 2 puffs every 4-6 hours as needed for shortness of breath or cough. Drink lots of fluids.[facility] Work Phone: [phone]) 398-315210-28-2022 Hospital Discharge instructions Additional Instructions Use iizx-usi-fjqmrfh cold and flu medicine to help with your symptoms. You can use sugar-free cough drops. Use the inhaler given to you 1 to 2 puffs every 4-6 hours as needed for shortness of breath or cough. Drink lots of fluids.[facility] Work Phone: Discharge summary Author Dr. Ahumada [facility] July 28, 2022 2:09pm Note Date/Time July 28, 2022 2 :02pm [facility] Medical Records Department [address] [place] [address] Instructions for Home/Discharge Instructions 07/28/22 1402 MR#: [id number] Acct: [id number] Name: LINA MEADOWS #:[id number] : 1960 62 From: Sanjiv Ahumada DO [...] mg PO BID Referrals / Follow Up: [facility] [Provider Group] - Within 1 Month Milind Lamb MD [Primary Care Provider] - Within 2 Weeks Disposition Disposition (needs filled in before D/C Order can be placed): Home, Self Care 07/28/22 1409<Electronically signed by Sanjiv Ahumada DO>Sanjiv Ahumada DO CC: Dr. Milind aLmb MD ~ Signed [facility] Work Phone: Discharge summary Author Dr. Ahumada [facility] July 28, 2022 2:11pm Note Date/Time July 28, 2022 2 :11pm [facility] Medical Records Department [address] [place] [address] Discharge Summary 07/28/22 1409 MR#: [id number] Acct: [id number] Name: LINA MEADOWS Rep #:[id number] : 1960 62 From: Sanjiv Ahumada DO PCP: Dr. Milind Lamb MD Status:ADM I N Location: [place] [id number] Providers Date of Admission: 07/26/22 Date of [...] Freq: Status: Active Protocol: Document 07/26/22 15:35 [facility] (Rec: 07/26/22 15:35 [facility] [id number]) Nutrition Malnutrition Evidence of Malnutrition Exists Yes [...] mg PO BID Referrals / Follow Up: [facility] [Provider Group] - Within 1 Month Milind Lamb MD [Primary Care Provider] - Within 2 Weeks Disposition Disposition (needs filled in before D/C Order can be placed): Home, Self Care Charges/Coding Visit Charges Inpatient E&M: 94910 Disch Hosp >30min 07/28/22 1411 <Electronically signed by Sanjiv Ahumada DO> Cosigner Signature (if applicable): CC: Dr. Sanjiv Ahumada DO; Dr. Milind Lamb MD~ Signed [facility] Work Phone: evaluation + Plan note Future Appointments Appointment Date:04/20/2025 10:00:00 AM Scheduled Provider:GLORY WEEMS Location:[facility] Appointment Type:PC OV Follow Up [facility] Evaluation note* Diagnosis Onset Date Resolution Status Acute dehydration acute Acute kidney injury acute DKA (diabetic ketoacidosis) acute History of alcoholism acute Pancreatitis [facility] Work Phone: Evaluation note* Diagnosis Onset Date Resolution Status DKA (diabetic ketoacidosis) acute History of alcoholism acute Acute dehydration resolved Acute kidney injury resolved Pancreatitis resolved Diabetes acute Hypokalemia acute [facility] Work Phone: Evaluation note* Diagnosis Onset Date Resolution Status Diabetes acute Hypokalemia acute Diabetic keto-acidosis acute Elevated serum creatinine ac blackfeet Sinus tachycardia acute Tachypnea acute [facility] Work Phone: Evaluation note* Diagnosis Onset Date Resolution Status Diabetes acute Hypokalemia acute Diabetic keto-acidosis acute Elevated serum creatinine ac black[place] Hypokalemia acute Sinus tachycardia acute Tachypnea acute BRITTNI (acute kidney injury) re solved [facility] Work Phone: Evaluation noteNo assessment information available [facility] Work Phone: Evaluation note* Diagnosis Onset Date Resolution Status Back pain acute Diabetic ketoacidosis associ ated with type 1 diabetes mellitus acute Elevated serum creatinine ac blackfeet Pyuria acute Sinus tachycardia by electrocardiogram acute [facility] Work Phone: Evaluation note* Diagnosis Onset Date Resolution Status Diabetic keto-acidosis resol yin Elevated serum creatinine re solved Sinus tachycardia by electrocardiogram resolved [facility] Work Phone: Evaluation note* Diagnosis Onset Date Resolution Status Admit Date Abnormal computed tomography of abdomen and pelvis acute December 09 12:32am Diabetic ketoacidosis acute Dec 12:32am [facility] Work Phone: Evaluation note* Diagnosis 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 Neoplasm of uncertain behavior of kidney and ureter documented in this encounter [facility] note* Diagnosis 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 Neoplasm of uncertain behavior of kidney and ureter Neoplasm of uncertain behavior of left kidney Neoplasm of uncertain behavior of kidney and ureter documented in this encounter [facility] course Narrative No data available for this section [facility] Hospital Discharge instructions Additional Instructions Is obviously [...] Please return to emergency room for repeat examination.[facility] Work Phone: Hospital Discharge instructions No data available for this section [facility] Hospital Discharge instructionsAdditional Instructions Images placed on a disk for you. Chest abdomen pelvis performed. No chest mass. Left renal mass 7.1 cm previously 6.6 cm. UA and urine with signs of infection. Culture sent. Take antibiotic prescribed. Follow-up with Dr. Felipe urology as scheduled for discussion of intervention.[facility] Work Phone: Progress note No data available for this section [facility] Reason for referral (narrative)No reason for referral information [facility]WK[facility] Work Phone: Summary Purpose Family History No Family History Records Found Relationship Condition Age at Onset Recorded Date/T afia mother Diabetes mellitus Unknown father Diabetes mellitus Unknown Malignant neoplasm Unknown Advance Directives No Advanced Directives Records Found Advance Directive Response Recorded Date/ Time Living Will No March 03 8:17pm Power of Cosmetology Educator No March 03 022 8:17pm Advance Directive Response Recorded Date/ Time Living Will No May 03 6:14am Power of Cosmetology Educator No May 03, 2022 6:14am Advance Directive Response Recorded Date/ Time Living Will No July 26 11:33am Power of Cosmetology Educator No July 26, 2022 11:33am Advance Directive Response Recorded Date/ Time Living Will No July 26 2:20pm Power of Cosmetology Educator No July 26, 2022 2:20pm Advance Directive Response Recorded Date/ Time Living Will No July 01, 2 023 12:05am Power of Cosmetology Educator No July 01, 2023 12:05am Advance Directive Response Recorded Date/ Time Living Will No July 02, 2 023 8:26am Power of Cosmetology Educator No July 02, 2023 8:26am Advance Directive Response Recorded Date/ Time Living Will No July 02, 2 023 7:15pm Power of Cosmetology Educator No July 02, 2023 7:15pm Advance Directive Response Recorded Date/ Time Living Will No July 29 1:01pm Power of Cosmetology Educator No July 29, 2023 1:01pm Advance Directive Response Recorded Date/ Time Do you have a Healthcare Power of Cosmetology Educator? No December 08, 2024 7:55pm Advance Directive Response Recorded Date/ Time Do you have a Healthcare Power of Cosmetology Educator? No December 09, 2024 1:00am Advance Directive Response Recorded Date/ Time Do you have a Healthcare Power of Cosmetology Educator? No December 09, 2024 1:00am Do you have a Healthcare Power of Cosmetology Educator? No February 25, 2025 10:00pm Advance Directive Response Recorded Date/ Time Do you have a Healthcare Power of Cosmetology Educator? No December 09, 2024 1:00am Do you have a Healthcare Power of Cosmetology Educator? No February 25, 2025 10:00pm Do you have a Healthcare Power of Cosmetology Educator? No March 04, 2025 6:10pm Advance Directive Response Recorded Date/ Time Do you have a Healthcare Power of Cosmetology Educator? No December 09, 2024 1:00am Do you have a Healthcare Power of Cosmetology Educator? No March 17, 2025 2:25pm Do you have a Healthcare Power of Cosmetology Educator? No February 25, 2025 10:00pm Do you have a Healthcare Power of Cosmetology Educator? No March 04, 2025 6:10pm Chief Complaint and Reason for Visit Chief [...] Date PE NON DOT DRUG SCREEN/ [facility] July 16, 2024 11:46am Chief Complaint Admit [...] flank pain February 25, 2025 9: 00pm Chief Complaint Admit Date DKA December 09, 2024 12:10 am DKA December 09, 2024 12:32 am DKA December 10, 2024 8:58a m flank pain February 25, 2025 9: 00pm DIARRHE[facility] March 04, 2025 6: 04pm Chief Complaint Admit Date DKA December 09, 2024 12:10 am DKA December 09, 2024 12:32 am DKA December 10, 2024 8:58a m flank pain February 25, 2025 9: 00pm DIARRHEA March 04, 2025 6: 04pm FLANK PAIN March 17, 2025 1:55pm Additional Source Comments INFORMATION SOURCE (unrecogn ized section and content) DATE CREATED AUTHOR 07/29/2018 [facility] ([place]) DATE CREATED AUTHOR AUTHOR'S ORGANIZ ATION 01/25/2025 [facility] DATE CREATED AUTHOR AUTHOR'S ORGANIZ ATION 04/12/2025 [facility] DATE CREATED AUTHOR AUTHOR'S ORGANIZ ATION 04/24/2025 [facility] DATE CREATED AUTHOR AUTHOR'S ORGANIZ ATION 04/24/2025 [facility] Care Teams (unrecognized sec tion and [...] Voss MD Emergency Provider Active Dr. Sanjiv Ahmuada DO Admit Provider, Attending Provid er Active [...] Lamb MD Primary Care Provider Active Dr. Stveen Voss MD Emergency Provider Active Dr. Torsten [...] MD Primary Care Provider Active Dr. Reece Galvan MD Emergency Provider Active Team Status: Inactive Member Role Status Dates Dr. Milind Lamb MD Primary Care Provider Active Dr. Aleksandar Rebolledo DO Attending Provider, Emergency P ropreetider Active Team Status: Active Member Role Status Dates Dr. Milind Lamb MD Primary Care Provider, Attending Provider Active Team Status: Inactive Member Role Status Dates Dr. Milind Lamb MD Primary Care Provider Active Dr. Reece Galvan MD Attending Provider, Emergency Provider Active Team Status: Inactive Member Role Status Dates Dr. Milind Lamb MD Primary Care Provider Active Start: July 16, 2024 End: July 16, 2024 Dr. Milind Lamb MD Referring Provider Active Start: July 16, 2024 End: July 16, 2024 Nasir LIRA, PA Attending Provider Active Sta rt: July [...] Active St art: December 09, 2024 Dr. Zleda Ibarra MD Attending Provider Active Start: December [...] February 25, 2025 End: February 26, 2025 Team Status: Inactive Member Role/Relationship Status Dates Dr. Zane Gallardo , Attending Provider Active Start : February 25, 2025 End: February 26, 2025 Dr. Zane Gallardo , Emergency Provider Active Start : February 25, 2025 End: February 26, 2025 GLORY MAST , SET DESIGNER Primary Care Provider Active Start: February 25, 2025 End: February 26, 2025 Team Status: Inactive Member Role/Relationship Status Dates GLORY MAST , SET DESIGNER Primary Care Provider Active Start: March 04, 2025 End: March 04, 2025 Dr. Sanjiv Marcial , Emergency Provider Active Start: March 04, 2025 End: March 04, 2025 Team Status: Inactive Member Role/Relationship Status Dates GLORY MAST , SET DESIGNER Primary Care Provider Active Start: March 04, 2025 End: March 04, 2025 Dr. Sanjiv Marcial DO Attending Provider Active Start: March 04, 2025 End: March 04, 2025 Dr. Sanjiv Marcial DO Emergency Provider Active Start: March 04, 2025 End: March 04, 2025 Team Status: Inactive Member Role/Relationship Status Dates GLORY MAST , SET DESIGNER Primary Care Provider Active Start: March 17, 2025 End: March 17, 2025 Dr. Sanjiv Marcial , Emergency Provider Active Start: March 17, 2025 End: March 17, 2025 Goals (unrecognized section and content) Goals [...] or prosecute any alcohol or drug abuse patient.[facility] RehabilitationIn the event this information is protected by the Federal Confidentiality of Alcohol and Drug Abuse Patient Records regulations: The Federal rules restrict any use of the information to criminally investigate or prosecute any alcohol or drug abuse patient.[facility] RehabilitationIn the event this information is protected by the Federal Confidentiality of Alcohol and Drug Abuse Patient Records regulations: The Federal rules restrict any use of the information to criminally investigate or prosecute any alcohol or drug abuse patient.[facility] RehabilitationIn the event this information is protected by the Federal Confidentiality of Alcohol and Drug Abuse Patient Records regulations: The Federal rules restrict any use of the information to criminally investigate or prosecute any alcohol or drug abuse patient.[facility] Reason for Visit (unrecogniz ed section and [...] BE BASED ON THE PRIMARY CLINICAL RECORDS. [facility] [employer] [facility]. provides no warranty or guarantee of the accuracy or completeness of information in this document.
[2025-05-01] MEDS: 0.9% Normal Saline (1000mL) 1,000 ML 1000 ML IV (15:58)
[2025-05-01 16:03] LABS: SITE Not entered; Time Given 16:00:35; VBG BASE EXCESS -21 mmol/L (-1.0-3.5); VBG PO2 40 mmHg (25-40); VBG SO2 61 % (50-70); VBG TCO2 9 mmol/L (23-33)
[2025-05-01 16:12] LABS: Hematocrit 36.5 % (37-47); Hemoglobin 11.3 g/dL (12.0-15.0); Immature Granulocytes Count 0.060 X10^3/uL (0.0-0.0); Mean Corp Hgb Conc 31.0 g/dL (32-36); Mean Corpuscular Volume 93.8 fL (81-99); Mean Platelet Vol. 12.2 fl (6.2-12.0); NRBC Flagged by Analyzer 0 % (0-5); Platelet Count 342 K/mm3 (150-450); RBC Distribution Width CV 13.2 % (11.6-14.6); RBC Distribution Width SD 45.1 fl (35.1-43.9); Red Blood Count 3.89 M/mm3 (4.2-5.4); White Blood Count 8.5 K/mm3 (4.4-11.0)
[2025-05-01 16:54] LABS: BETA-HYDROXYBUTYRATE 12.4 mmol/L (0.0-0.3)
[2025-05-01 16:55] LABS: AST(SGOT) 7 U/L (<=31); Alanine Aminotransfer ALT/SGPT 7 U/L (<=34); Albumin, Serum 4.1 g/dL (3.4-4.8); Alkaline Phosphatase 121 U/L (35-104); Anion Gap 32 (5-15); BUN 35 mg/dL (4-19); BUN/Creat Ratio 14.8 RATIO (10-20); Calcium,Total 10.4 mg/dL (7.6-11.0); Carbon Dioxide 8.1 mmol/L (21.0-32.0); Chloride 90 mmol/L (98-108); Estimated Creatinine Clearance 20.18 ml/min (50-250); Globulin 3.7 g/dL (2.2-4.2); Glucose 852 mg/dL (70-99); Potassium 5.5 mmol/L (3.3-5.1)
--- NOTE | 2025-05-01 17:03 | RAD_ITS ---
PROCEDURE: CHEST PA AND LATERAL 05/01/2025 REASON FOR EXAM: WEAKNESS TECHNIQUE: Procedure Code: RADCXR Modality: DX Procedure: CHEST PA AND LATERAL COMPARISON: 05/02/2024 FINDINGS: LUNGS AND PLEURA: The lungs are clear. No pleural effusion or pneumothorax. HEART AND MEDIASTINUM: The heart size and mediastinal contours are normal. BONES: No acute osseous abnormality. Old right posterior 7th and 8th rib fractures. RAD/Chest PA and Lateral IMPRESSION: NO ACUTE FINDINGS. Reading Location: [id number]
[2025-05-01 17:10] LABS: Troponin T High Sensitivity 15 ng/L (<=14)
--- NOTE | 2025-05-01 17:24 | CT_ITS ---
PROCEDURE: CT ABDOMEN/PELVIS WITHOUT CONT 05/01/2025 REASON FOR EXAM: ACUTE RENAL FAILURE, RECENT NEPHRECTOMY TECHNIQUE: Procedure Code: CTABDPEL Modality: CT Procedure: ABDOMEN/PELVIS WITHOUT CONT Noncontrast technique limits evaluation of the abdominal and pelvic viscera. Coronal and Sagittal reconstruction series were provided. One or more dose reduction techniques were used (e.g., Automated exposure control, adjustment of the mA and/or kV according to patient size, use of iterative reconstruction technique). RADIATION DOSE SUMMARY: CTDlvol: 6.04 mGy DLP: 294.46 mGycm COMPARISON: 03/17/2025 FINDINGS: Lung bases: Clear. Liver: Unremarkable. Gallbladder: Cholelithiasis. No findings to suggest acute cholecystitis. Spleen: Normal in size. Few tiny calcified granulomas. Pancreas: Unremarkable. Adrenals: Nonspecific mild thickening of the left adrenal gland, no discrete nodule. Kidneys: Interval postoperative changes of total left nephrectomy due to a previously described left renal mass. No nodularity or abnormal fluid collection within the nephrectomy bed. Postoperative incisional changes to the anterior abdominal wall and trace residual presumed postoperative pneumoperitoneum mainly subdiaphragmatic in the right upper quadrant. Circle right kidney appears grossly normal without urolithiasis or hydronephrosis. Bladder: Unremarkable. Smoothly distended. Reproductive Organs: Unremarkable appearance of the uterus and adnexae. Bowel: No evidence of obstruction or active inflammatory process. Normal appendix. Lymph nodes: No suspicious lymph node enlargement. Vasculature: Normal caliber abdominal aorta. Scant atherosclerotic calcifications. Peritoneum / Retroperitoneum: No ascites. Trace postoperative pneumoperitoneum. Bones: No significant abnormality. No osseous lytic or blastic lesion. CT/Abdomen/Pelvis without Cont IMPRESSION: 1. Postoperative changes of recent left nephrectomy. No unexpected findings. 2. Unenhanced [place] right kidney is grossly unremarkable. No hydronephrosis. 3. Cholelithiasis. No findings to suggest acute cholecystitis. Reading Location: [id number]
[2025-05-01 17:34] LABS: Magnesium 2.7 mg/dL (1.5-2.2)
[2025-05-01 17:52] LABS: Mucous, Urine 0 SEEN /hpf (<or=2+)
[2025-05-01 17:54] LABS: Color, Urine Yellow (Yellow); Glucose, Dipstick 1000 mg/dl (Normal); Leukocyte Esterase-Dipstick 100 /ul (Negative); Nitrite-Dipstick Negative (Negative); Occult Blood-Urine 10 /ul (Negative); Protein-Dipstick 30 mg/dl (Negative); Specific Gravity, Urine 1.015 (1.002-1.030); Urine Bilirubin Dipstick Negative (Negative)
[2025-05-01] MEDS: 0.45% Normal Saline 1,000 ML 250 ML IV (18:03)
[2025-05-01 18:04] LABS: Ketone-Dipstick 150 mg/dl (Negative)
[2025-05-01] MEDS: Insulin Lispro 100 UNIT in 0.9% Normal Saline (100mL Bag) 99 ML 8.6 UNIT CONT INF (18:10)
[2025-05-01 18:16] LABS: Red Blood Cells-Urine 0-5 SEEN /hpf (0-5); Squamous Epithelial Cells - UA 0-5 SEEN /hpf (5-10)
[2025-05-01 19:20] LABS: Troponin T High Sens 2 HR 17 ng/L (<=14)
--- NOTE | 2025-05-01 19:57 | ED.RN ---
Insulin drip titrated late, waiting on blood glucose result due to glucometer reading high
[2025-05-01 20:13] LABS: Chloride 97 mmol/L (98-108); Potassium 4.5 mmol/L (3.3-5.1)
[2025-05-01 20:14] LABS: Glucose 708 mg/dL (70-99)
[2025-05-01 20:31] LABS: Troponin T High Sens 4 HR 20 ng/L (<=14)
--- NOTE | 2025-05-01 20:32 | ED.RN ---
Insulin drip titrated late at 2017 due to waiting on lab result for blood glucose. Finger stick done, insulin titrated again at 2028 due lower reading.
--- NOTE | 2025-05-01 20:49 | PCM.HP.STD ---
[facility] - General General Date of Admission: 05/01/25 Date of Service: 05/01/25 Chief Complaint: Nausea, Vomiting and Hyperglycemia. HPI Narrative ROBERT MEADOWS, is a 65 F with a past medical history of essential hypertension; on lisinopril, hyperlipidemia; on rosuvastatin, former tobacco abuse, DM-1; uncontrolled with hyperglycemia and history of DKA on metformin daily, insulin lispro 10U sq 3 times daily and insulin glargine 46U sq nightly, history of Left renal mass; s/p nephrectomy ~3 weeks ago at [facility] by Dr. Parada with patient not currently on chemo or radiation, history of UTI, former EtOH abuse, depression with anxiety; on sertraline, history of COVID-19, remote history of tubal ligation, chronic constipation, GERD, OA; with low back pain and history of admission here from 05/02/2024 to 05/04/2024 for treatment of DKA complicated by accelerated hypertension in the setting of medical noncompliance with antihypertensive medications causing generalized weakness and malaise who presents to [facility] ER complaining of nausea, vomiting and hyperglycemia. Ms. Meadows reports her symptoms began ~2-3 days prior to admission with a gradual-onset of progressively worsening nausea and vomiting with bilious emesis and decreased appetite in the setting of doing well postoperatively up to that point in time. She reports that her Dexcom has been reading high in spite of taking her insulin as prescribed. She admits to an associated episode of chest pain when she got up from the couch earlier today which caused her to feel like it was pounding with pain that was midsternal and only lasted for a few seconds before resolving spontaneously. She also admits to 1 episode of diarrhea yesterday and mild shortness of breath but she denies fever, chills, abdominal pain, constipation, dysuria, hematuria, headache or rash. In the ER she was diagnosed with DKA; evidenced by Hyperglycemia of 708 mg/dL with elevated beta hydroxybutyrate of 12.4 mmol/L with corresponding VBG that revealed pH 7.16/ pO2 40 mmHg/ total CO2 9 mmol/L/ HCO3 8 mmol/L with base excess of -21 mmol/L and POC mix VBG pCO2 22.5 mmHg complicated by Hyperkalemia of 5.7 mmol/L with additional evidence of BRITTNI; with elevated serum creatinine of 2.36 milligrams per deciliter, BUN of 35 mg/dL and eGFR of 23 mL/min (up from her baseline of 1.06 mg/dL, 16 mg/dL and eGFR of 59 mL/min on April 15, 2025) all present on admission compounded by UA positive for evidence of Acute Cystitis; without hematuria with a CXR that revealed no acute findings and CT scan of the abdomen and pelvis that showed postoperative changes of recent Left nephrectomy with no unexpected findings with unenhanced negative right kidney grossly unremarkable and no hydronephrosis with cholelithiasis but no findings to suggest acute cholecystitis in addition to Nausea and Vomiting. She was then admitted to the ICU for treatment under the DKA protocol for stated is expected to extend beyond 2 midnights. [facility] Medical History Mass of left kidney Sinus tachycardia seen on feeder tender Back pain Tobacco use Anxiety and depression GERD (gastroesophageal reflux disease) HTN (hypertension) Diabetes mellitus, type 2 History of alcoholism COVID-19 Home Medications ?Medication ?Instructions ?Recorded ?Last Taken ?Type flash glucose sensor (FreeStyle #2 ea 04/11/22 Unknown Rx Moncho 2 Sensor kit) blood-glucose meter (FreeStyle #1 ea 07/28/22 Unknown Rx Lite Meter kit) lancets 28 gauge (FreeStyle #100 ea 07/28/22 Unknown Rx Lancets) pen needle, diabetic 32 gauge x #50 ea 07/28/22 Unknown Rx 5/32 (BD Ultra-Fine Josefina Pen Needle) lancets 28 gauge (FreeStyle #100 ea 07/06/23 Unknown Rx Lancets) sertraline 50 mg tablet 50 mg PO DAILY depression 05/02/24 03/16/25 History blood sugar diagnostic (FreeStyle #100 ea 05/04/24 Unknown Rx Lite Strips) lisinopril 5 mg tablet 5 mg PO DAILY #30 tabs 05/04/24 03/16/25 Rx metformin 1,000 mg tablet 1,000 mg PO DAILY #30 tabs 05/04/24 03/16/25 Rx insulin glargine U-300 conc 300 46 unit subcut QHS 12/08/24 03/16/25 History unit/mL (1.5 mL) subcutaneous pen (Toujeo SoloStar U-300 Insulin) rosuvastatin 5 mg tablet 10 mg PO DAILY 12/08/24 03/16/25 History insulin lispro 100 unit/mL 10 unit (0.1 mL) subcut TIDAC 12/10/24 03/16/25 Rx subcutaneous pen (Humalog ElíasPen diabetes #15 mL (U-100) Insulin) acetaminophen 500 mg tablet 1,000 mg PO Q6H PRN pain 05/01/25 Unknown History (Acetaminophen Extra Strength) Allergy/AdvReac Type Severity Reaction Status Date / Time No Known Allergies Allergy Verified 03/17/25 13:58 Family History Mother Diabetes Father Diabetes Cancer Hx mesothelioma. Surgical History Status post tubal ligation Social History household members: other details: Lives with her son. Her son is also an alcoholic. Smoking Status: Former smoker alcohol intake: current alcohol intake frequency: 0-2 drinks per day Alcohol type: wine details: Prior heavy EtOH abuse, now max 1 glass wine, last 2 wks prior (12/09/24) substance use type: does not use ROS ROS Narrative Review of Systems: Constitutional: Patient mitts generalized weakness and malaise but she denies fever or chills. Eyes: Patient denies change in vision or discharge from eyes. ENT: Patient denies runny nose, sore throat or ear pain. Resp: Patient denies shortness of breath or cough. CV: Patient admits to brief episode of midsternal chest pain with sensation of heart pounding as per HPI. She denies heart racing or lower extremity edema. GI: Patient denies abdominal pain, nausea, vomiting, diarrhea or constipation. : Patient denies dysuria or hematuria. MSK: Patient admits to generalized weakness but she denies arthralgias or myalgias. Skin: Patient admits to well-healed Left abdominal surgical wound but she denies rash, abscess or jaundice. Psych: Patient denies symptoms uncontrolled depression or anxiety. Neuro: Patient denies headache, paresthesias or focal neurologic deficits. Allergy: Patient denies lip swelling, tongue swelling or urticaria. Hematology: Patient denies easy bleeding or easy bruisability. Endocrinology: Patient admits to polyuria and polydipsia but she denies polyphagia or heat/cold intolerance. 14 point ROS otherwise negative except for positives noted above in HPI. Vital Signs Vital Signs Vital Signs: 05/01/25 14:51 05/01/25 14:58 05/01/25 15:35 Temperature 97.5 F L Temperature Source Oral Pulse Rate 108 H 106 H Respiratory Rate 16 21 H Respiratory Effort Normal Non-Labored Blood Pressure 150/76 H 145/57 H Blood Pressure Mean 100 86 Pulse Ox 100 100 Oxygen Delivery Method Room Air Room Air 05/01/25 17:00 05/01/25 19:18 05/01/25 20:44 Temperature 97.5 F L 97.6 F L Temperature Source Oral Pulse Rate 100 109 H 102 H Respiratory Rate 20 H 19 H 20 H Respiratory Effort Blood Pressure 139/57 H 136/77 H 129/71 H Blood Pressure Mean 84 96 90 Pulse Ox 100 100 100 Oxygen Delivery Method Room Air Weight Weight: 117 lb 15.157 oz Body Mass Index (BMI) 20.9 Physical Exam Const alert, oriented x3, no apparent distress and average body habitus General Appearance: cooperative HEENT normocephalic, head/scalp atraumatic and hearing grossly normal bilaterally HEENT Narrative: Mucous membranes dry. Eyes PERRL, EOMs intact bilaterally and conjunctivae normal Neck no lymphadenopathy, supple and no JVD Resp normal respiratory effort, no retractions, no use of accessory muscles and clear to auscultation bilaterally Cardio regular rate and regular rhythm Cardio Narrative: Mild tachycardia of ~106 bpm noted. GI normal to inspection, nondistended, normoactive bowel sounds, soft to palpation, non-tender and non-distended GI Narrative: Healing surgical incision on left side of abdomen with no erythema, warmth, drainage or fluctuance from the wound. Extremity normal to inspection, full ROM and no clubbing, cyanosis or edema Skin Skin Narrative: Healing surgical incision on left side of abdomen with no erythema, warmth, drainage or fluctuance from the wound. Patient has no evidence of rash. Neuro oriented x3, CN's II-XII intact bilaterally, moves all extremities and no focal motor deficits Sensorium / Orientation: awake, alert, oriented to person, oriented to place and oriented to time Speech: speech normal Psych affect normal Results Medical Records Data Attestation: I reviewed the patient's medical records Lab / Micro Data Attestation: I reviewed the patient's lab results. 05/01/25 16:00 05/01/25 23:05 Labs: Laboratory Results - last 24 hr 05/01/25 16:00: WBC 8.5, RBC 3.89 L, Hgb 11.3 L, Hct 36.5 L, MCV 93.8, MCH 29.0, MCHC 31.0 L, RDW Std Deviation 45.1 H, RDW Coeff of Nellie 13.2, Plt Count 342, MPV 12.2 H, Immature Gran % (Auto) 0.700, Neut % (Auto) 80.1 H, Lymph % (Auto) 13.7 L, [place] % (Auto) 3.9, Eos % (Auto) 0.5, Baso % (Auto) 1.1 H, Absolute Neuts (auto) 6.8, Absolute Lymphs (auto) 1.17, Nucleated RBC % 0, Sodium 130 L, Potassium 5.5 H, Chloride 90 L, Carbon Dioxide 8.1 L*, Anion Gap 32 H, BUN 35 H, Creatinine 2.36 H, Estim Creat Clear Calc 20.18 L, Est GFR (MDRD) Non-Af 23 L, BUN/Creatinine Ratio 14.8, Glucose 852 H*, Lactic Acid 1.4, Calcium 10.4, Phosphorus 5.4 H, Magnesium 2.7 H, Total Bilirubin < 0.15, AST 7, ALT 7, Alkaline Phosphatase 121 H, Troponin T High Sens 15 H, Total Protein 7.7, Albumin 4.1, Globulin 3.7, Albumin/Globulin Ratio 1.1, b-Hydroxybutyric mmol/L 12.4 H 05/01/25 17:48: Urine Color Yellow, Urine Clarity Clear, Urine pH 6.0, Ur Specific [place] 1.015, Urine Protein 30 H, Urine Glucose (UA) 1000 H, Urine Ketones 150 A*, Urine Occult Blood 10 H, Urine Nitrite Negative, Urine Bilirubin Negative, Urine Urobilinogen Normal, Ur Leukocyte Esterase 100 H, Urine RBC 0-5 SEEN, Urine WBC 10-25 SEEN, Ur Squamous Epith Cells 0-5 SEEN, Urine Bacteria RARE, Urine Mucus 0 SEEN 05/01/25 18:57: Sodium 133, Potassium 4.5, Chloride 97 L, Carbon Dioxide 5.7 L*, Anion Gap 31 H, Glucose 708 H*, Troponin T Hi Sens 2 Hr 17 H 05/01/25 20:03: Troponin T Hi Sens 4Hr 20 H Micro: Microbiology 05/01/25 15:53 Mucosa - Nose SARS-CoV-2, Influenza & RSV (PCR) - Final ABG Data ABG results: ABG 05/01/25 15:58 Specimen Type LIZY Sample Site Not entered VBG pH 7.16 L* VBG pO2 40 VBG HCO3 8 L VBG Total CO2 9 L VBG O2 Sat (Calc) 61 VBG Base Excess -21 L POC Mix VBG pCO2 Pt Tmp 22.5 L O2 Delivery Device Not entered Crit Call To/Read Back Yes Blood Gas Notified Whom fritz Blood Gas Notified Time 16:00:35 Interpretation: RUN DATE: 05/02/25 [facility], DEPARTMENT OF LABORATORIES PAGE 1 RUN TIME: 0020 Specimen Inquiry [address] [place], [address] PATIENT: ROBERT MEADOWS LOC: ICU U #: [id number] : 1960 AGE/SX: 65/F FACILITY: [facility] ROOM: [place] [id number] RE05/01/[address]: Dr. Ciro Fernández, D STATUS:ADM IN ED: 1 DIS: ~ SPEC #: [id number] GORDO: 05/01/25 STATUS: COMP REQ #: [id number] RECD: 05/01/[address]: Dr. Ciro Fernández, DO ENTERED: 05/01/[address]: YONATAN [place] ~ Test Result Flag Reference Range IBG Blood Gas Type ART SITE L Radial SHAWNA TEST Positive Mode Not entered O2 Delivery Dev Not entered pH 7.27 L 7.35-7.45 pCO2 31.9 L 35-45 mmHg PO2 83 75-100 mmHG HCO3 14.6 L 22-26 mmol/L BE -12 L -2 to +2 mmol/L TOTAL CO2 16 mmol/L SO2 95 94-98 % Imaging Radiology Impression Chest X-Ray 05/01/25 17:03 IMPRESSION: NO ACUTE FINDINGS. Reading Location: [facility] Abdomen/Pelvis CT 05/01/25 17:24 IMPRESSION: 1. Postoperative changes of recent left nephrectomy. No unexpected findings. 2. Unenhanced [place] right kidney is grossly unremarkable. No hydronephrosis. 3. Cholelithiasis. No findings to suggest acute cholecystitis. Reading Location: [facility] Assessment & Plan Assessment/Plan (1) DKA, type 1: QUALIFIERS: Diabetes mellitus complication detail: without coma Qualified Code(s): E10.10 - Type 1 diabetes mellitus with ketoacidosis without coma (2) Nausea and vomiting: QUALIFIERS: Vomiting type: bilious vomiting Qualified Code(s): R11.14 - Bilious vomiting (3) Hyperkalemia: (4) BRITTNI (acute kidney injury): (5) Acute cystitis without hematuria: (6) History of nephrectomy, left: PLAN: Plan 1. DKA; evidenced by Hyperglycemia of 708 mg/dL with elevated beta hydroxybutyrate of 12.4 mmol/L with corresponding VBG that revealed pH 7.16/ pO2 40 mmHg/ total CO2 9 mmol/L/ HCO3 8 mmol/L with base excess of -21 mmol/L and POC mix VBG pCO2 22.5 mmHg and elevated Anion-Gap of 31 present on admission in the setting or previously diagnosed DM-1; uncontrolled with hyperglycemia and history of DKA on metformin daily, insulin lispro 10U sq 3 times daily and insulin glargine 46U sq nightly with Nausea and Vomiting - Admit to ICU for treatment under the DKA protocol. Continue IV insulin drip begun in the ER and titrate per protocol with vigorous IVF. Give pantoprazole IV 40 mg IV daily for GI prophylaxis. Give ondansetron IV prn for nausea and vomiting. Give prochlorperazine IV prn for breakthrough nausea. 2. Hyperkalemia of 5.7 mmol/L with BRITTNI; with elevated serum creatinine of 2.36 milligrams per deciliter, BUN of 35 mg/dL and eGFR of 23 mL/min (up from her baseline of 1.06 mg/dL, 16 mg/dL and eGFR of 59 mL/min on April 15, 2025) complicating #1 - Aggressively volume resuscitate and recheck BMP in AM to follow trend for improvement. Check renal indices daily to monitor for correction of BRITTNI. We will avoid potentially nephrotoxic agents. 3. UA positive for evidence of Acute Cystitis; without hematuria thought to be primary cause of #1 - Start empiric IV ceftriaxone and await culture & sensitivity data. Give acetaminophen MA prn for [id number] (level 1-5/10) pain or fever. Give morphine IV prn for severe (level 6-10/10) pain. 4. History of Left renal mass; s/p nephrectomy ~3 weeks ago at [facility] by Dr. Parada with patient not currently on chemo or radiation - Noted with CT this admission showing no acute pathologic findings. 5. History of admission here from 05/02/2024 to 05/04/2024 for treatment of DKA complicated by accelerated hypertension in the setting of medical noncompliance with antihypertensive medications causing generalized weakness and malaise - Noted with similar pattern of illness this admission. 6. Essential hypertension; on lisinopril - Hold oral agents. Give hydralazine IV prn for systolic blood pressure > 160 mmHg. 7. Hyperlipidemia; on rosuvastatin - Restart statin when patient is cleared for oral intake. Check Lipid Profile 8. Former tobacco abuse - Noted. 9. History of UTI - Noted with new recurrence this admission. 10. Former EtOH abuse - Noted. 11. Depression with anxiety; on sertraline - Hold sertraline in favor of low-dose IV lorazepam for breathrough anxiety. 12. History of COVID-19 - Noted. 13. Remote history of tubal ligation - Noted for the sake of completeness. 14. Chronic constipation - Stable. Give suppositories prn if this recurs. 15. GERD - Patient on IV PPI for #1. 16. OA; with low back pain - We will follow pain regimen and scales outlined in #3. 17. DVT prophylaxis - Heparin 5,000U sq TID plus SCD's. Total time: Approximately (but not less than) 75 minutes. Charges/Coding Visit Charges Inpatient E&M: 91563 Init Hosp L3
--- OUTSIDE RECORDS SUMMARY | 2025-05-01 21:42 | XMS RPT_ITS | CCD ---
Author Organization [facility] Care Team Providers Care Art Framing Manager Name Role Phone SUMMER ALVES Attending [...] Provider Dr. Torsten Sutton Admit Provider Dr. Tortsen Sutton Attending Provider Dr. Torsten Sutton Other [...] RICH, Dr. Tanner Other Provider Unavailable MAST HAND STEMMER-OPTICAL EFFECTS LINE UP PERSON, GLORY Primary Care Physician [phone] Dr. Angella Boggs DO Attending Provider MAST HAND STEMMER-OPTICAL EFFECTS LINE UP PERSON, GLORY Attending Unavailabl e MAST HAND STEMMER-OPTICAL EFFECTS LINE UP PERSON, GLORY Primary Care Unavailabl e Unavailable Primary Care Provider Unavaildo Lamb MD, Dr. Vaz Primary Care Provider [phone] Dr. Zane Gallardo DO Emergency Provider [phone] MAST GRAPHICS PRODUCTION SPECIALIST, GLORY Primary Care Provider Dr. Zane Gallardo DO Attending Provider Dr. Sanjiv Marcial DO Emergency Provider Aniket [...] Latex; Translations: [LATEX] Drug Allergy 07-09-2012 Rash [facility] Medications Current Medications Medication Drug Class(es) [...] .Route July 28, 2022 12:00am As directed Dexcom G7 Sensor (1 source) Start: 01-18-2025 Dexcom G7 Sens or See Instructions, Place once sensor to the back of the upper arm every 10 days. Use reader or phone jason for daily blood sugar checks. 1 month supply., # 3 EA, 11 Refill(s), Pharmacy: [facility]/pharmacy #[id number], Type 2 diabetes mellitus with hyperlipidemia, 161, cm, 01/18/25 9:58:00 EDT, Height, 60, kg, 01/18/25 9:58:00 EDT, Dosing Weight Start Date: 01/18/25 Status: Ordered Quantity: 3.0 Unit: EA Repeat number: 12 Indications: Type 2 diabetes mellitus with other specified complication; Flash Glucose Sensor (Freestyle Moncho 2 Sensor) kit (19 sources) Start: 04-11-2022 Flash Glucose Sensor (Freestyle [...] Insulin) 300 unit/mL (1.5 mL) insulin pen (6 sources) Start: 12-08-2024 Insulin Glargi ne U-300 [...] TID, # 9 mL, 1 Refill(s), Pharmacy: [facility]/pharmacy #[id number], 161, cm, 01/18/25 9:58:00 EDT, [...] tablet Discontinued 2.5 mg PO DAILY 30 2 July 05, 2023 1:10pm March 01, 2024 [...] 12:00am rosuvastatin calcium 10 mg oral tablet (7 sources) HMG-CoA Reductase Inhibitor Start: 01-19-2025 rosuvastatin 10 mg oral tablet Dose : 10 mg = 1 tab(s), Oral, qDay, # 90 tab(s), 3 Refill(s), Pharmacy: [facility]/pharmacy #[id number], 161, cm, 01/18/25 9:58:00 EDT, Height, kg, 01/18/25 9:58:00 EDT, Dosing Weight Start Date: 01/19/25 Status: Ordered Quantity: 90.0 Unit: tab(s) Repeat number: 4 Start: 12-08-2024 take 2 tablets by mo [facility] once daily Rosuvastatin 5 mg tablet Active [...] / HYDROcodone bitartrate 5 mg oral tablet (12 sources) Opioid Agonist Start: 07-01-2023 End: 07-02-2023 Hydrocodone-Acetami nophen 5-325 mg tablet Discontinued 1 {tbl} PO EVERY 6 HOURS NEEDED as needed for Pain 12 3 July 01, 2023 July 02, 2023 10:26pm Low back pain Low back pain, unspecified Start: 07-01-2023 End: 07-02-2023 take 1 tablet by mouth every six hours as needed Hydrocodone-Acetaminophen Discontinued 1 TABLET PO EVERY 6 HOURS NEEDED 12 July 01, 2023 July 02, 2023 9:26pm cefdinir 300 mg oral capsule (10 sources) Cephalosporin Antibacterial Start: 02-26-2025 End: 03-17-2025 take 1 capsule by mouth every twelve hours Cefdinir 300 mg capsule Discontinued 300 mg PO Q12H 14 0 February 26, 2025 12:00am March 17, 2025 2:46pm Start: 05-04-2024 End: 12-08-2024 take 1 capsule by mouth twice daily Cefdinir 300 mg capsule Discontinued 300 mg PO TWICE A DAY 10 May 04, 2024 12:00am December 08, 2024 8:03pm diazePAM 2 mg oral tablet (12 sources) Benzodiazepine Start: 07-01-2023 End: 03-01-2024 take 1 tablet by mouth three times daily as needed for pain Diazepam 2 mg tablet Discontinued 2 mg PO 3 TIMES DAILY NEEDED as needed for back pain 10 July 01, 2023 1:00am March 01, 2024 6:09am dicyclomine hydrochloride 10 mg oral capsule (11 sources) Anticholinergic Start: 07-02-2023 End: 07-02-2023 take [...] DAILY BEFORE MEALS July 02, 2023 12:00am Adriano 27th, 2023 9:26pm empagliflozin 25 mg oral tablet [...] Solostar) 300 unit/mL (3 mL) insulin pen (14 sources) Start: 03-01-2024 End: 05-04-2024 Insulin Glargine [...] pen Discontinued 30 U SC DAILY 6 2 July 06, 2023 1:00am March 01, 2024 6:09am Start: 07-06-2023 End: 03-01-2024 Insulin Glargine U-300 Conc (Toujeo Max U-300 Solostar) 300 unit/mL (3 mL) insulin pen Discontinued 30 U SC DAILY July 06, 2023 1:00am March 01, 2024 6:09am Insulin Glargine-Yfgn (20 sources) Start: 03-06-2022 End: 04-11-2022 Insulin Glargine-Yfgn [...] 2022 12:00am naproxen 500 mg oral tablet (16 sources) Nonsteroidal Anti-inflammatory Drug Start: 07-26-2022 End: 03-01-2024 take 1 tablet by mouth once daily as needed for pain Naproxen 500 mg tablet Discontinued 500 mg PO DAILY as needed for Pain July 26, 2022 1:00am March 01, 2024 6:08am ondansetron 4 mg disintegrating oral tablet (11 sources) Serotonin-3 Receptor Antagonist Start: 07-02-2023 End: [...] 2022 9:11am predniSONE 20 mg oral tablet (20 sources) Start: 06-19-2020 End: 06-24-2020 take 2 [...] Date Documented Da te Episodic/Chronic Abdominal pain (2 sources) Left flank pain; Translations: [Unspecified abdominal pain] Onset: 03-21-2025 03-17-2025 Episodic Acute and unspecified renal failure (20 sources) Injury of kidney; Translations: [Acute kidney failure, unspecified] Episodic Administrative/social admission (2 sources) Persons encountering health services in other specified circumstances; Translations: [Persons encountering health services in other specified circumstances] Onset: 01-18-2025 Episodic Alcohol-related disorders (20 sources) H/O: alcoholism; Translations: [Alcohol dependence, in remission] Chronic Biliary tract disease (1 source) Calculus of gallbladder without cholecystitis without obstruction; Translations: [Calculus of gallbladder without cholecystitis without obstruction] Onset: 04-13-2025 Episodic Conditions associated with dizziness or vertigo (1 source) Vertigo 01-18-2025 Episodic Diabetes mellitus with complications (20 sources) Diabetic ketoacidosis; Translations: [Type 2 diabetes mellitus with ketoacidosis without coma] Onset: 05-04-2024 Chronic Diabetes mellitus without complication (20 sources) Diabetes mellitus; Translations: [Type 2 diabetes mellitus without complications] Onset: 05-04-2024 Chronic Diabetes mellitus without complication (2 sources) Hyperglycemia; Translations: [Hyperglycemia, unspecified] 03-04-2025 Episodic Disorders of lipid metabolism (3 sources) Hyperlipidemia; Translations: [Hyperlipidemia, unspecified] Onset: 01-18-2025 01-18-2025 Chronic Essential hypertension (18 sources) Malignant hypertension; Translations: [Essential (primary) hypertension] Onset: 05-04-2024 05-12-2024 Chronic Fluid and electrolyte disorders (20 sources) Dehydration; Translations: [Dehydration] Episodic Genitourinary symptoms and ill-defined conditions (11 sources) Pyuria; Translations: [Pyuria] 07-02-2023 Episodic Neoplasms of unspecified nature or uncertain behavior (4 sources) Neoplasm of uncertain behavior of left kidney; Translations: [Neoplasm of uncertain behavior of left kidney] Onset: 02-24-2025 02-24-2025 Episodic Other aftercare (3 sources) correction (current) use of insulin; Translations: [rat exterminator (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) use of insulin] Onset: 01-18-2025 Episodic Other diseases of kidney and ureters (10 sources) Renal mass; Translations: [Other specified disorders of kidney and ureter] Chronic Other gastrointestinal disorders (11 sources) Constipation; Translations: [Constipation, unspecified] 07-02-2023 Episodic Other gastrointestinal disorders (2 sources) Diarrhea; Translations: [Diarrhea, unspecified] 03-04-2025 Episodic Other gastrointestinal disorders (1 source) Diarrhea, unspecified; Translations: [Diarrhea, unspecified] Onset: 03-10-2025 Episodic Other lower respiratory disease (18 sources) Cough; Translations: [Cough] 05-11-2022 Episodic Other lower respiratory disease (16 sources) Tachypnea; Translations: [Tachypnea, not elsewhere classified] 07-26-2022 Episodic Other lower respiratory disease (3 sources) Tachypnea, not elsewhere classified; Translations: [Tachypnea] 07-26-2022 Episodic Other nutritional; endocrine; and metabolic disorders (1 source) Personal history of other endocrine, nutritional and metabolic disease; Translations: [H/O insulin dependent diabetes mellitus] Onset: 04-13-2025 Episodic Other screening for suspected conditions (not mental disorders or infectious disease) (20 sources) Serum creatinine raised; Translations: [Other specified abnormal findings of blood chemistry] 07-26-2022 Episodic Other upper respiratory disease (11 sources) Bleeding from nose; Translations: [Epistaxis] 07-02-2023 Episodic Other upper respiratory infections (18 sources) Acute upper respiratory infection; Translations: [Acute upper respiratory infection, unspecified] 05-11-2022 Episodic Pancreatic disorders (not diabetes) (20 sources) Pancreatitis; Translations: [Acute pancreatitis without necrosis or infection, unspecified] Episodic Residual codes; unclassified (7 sources) Noncompliance with medication regimen; Translations: [Noncompliance [...] Onset: 05-04-2024 07-26-2022 Episodic Malaise and fatigue (16 sources) Malaise; Translations: [Other malaise] Onset: 05-04-2024 05-12-2024 Episodic Urinary tract infections (11 sources) Urinary tract infectious disease; Translations: [Urinary tract infection, site not specified] Onset: 05-04-2024 05-03-2024 Episodic Results Test Name Value Interpretation Reference Range Facility [facility] 2025 DAYANA Telephone (UROLAE) LINA MEADOWS ([id number]) 1960 F Date Time Provider Department 04/22/25 MEREDITH FELIPE During your visit today, we recorded the following information about you: Michael Story MA 2025 8:53 AM Signed Pt called in asking for referral for Hem/onc Please advise CHIP Boyle Stephanie 2025 10:24 AM Addendum Referral order has been enter for the [place] location (Dr. Milind Carey). I called and notified patient and told her his office will contact her to make the appt (see previous encounter note). She verbalized understanding. Allergies As of Date: 2025 Noted Allergy Reaction LATEX 07/09/2012 2 - Rash Date Reviewed: 04/20/2025 Reviewed by: Michelle Dominguez, RN - Fully Assessed Reason for Visit: Patient Update [1234] Prescriptions as of 2025 - oxyCODONE IR (ROXICODONE) 5 mg immediate release tablet Take 1 tablet by mouth every 6 hours as needed for pain for up to 5 days. - docusate sodium (COLACE) 100 mg capsule Take 1 capsule by mouth two times a day. - DEXCOM G7 SENSOR laisha Place once sensor on the back of the upper arm every 10 days. Use reader or phone jason for daily blood sugar checks. 1 month supply. - TOUJEO SOLOSTAR U-300 INSULIN 300 unit/mL (1.5 mL) INJECT 40 UNITS UNDER SKIN AT BEDTIME - HUMALOG KWIKPEN INSULIN 100 unit/mL 10 Units. - lisinopril (ZESTRIL) 5 mg tablet 5 mg. - metFORMIN (GLUCOPHAGE) 1,000 mg tablet 0 Refill(s) - rosuvastatin (CRESTOR) 10 mg tablet 10 mg. - sertraline (ZOLOFT) 50 mg tablet 50 mg. 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 The surgeon instructed her to follow up with Hem/Onc. PSS notified patient that a referral is required and that the office would contact the patient to schedule after it has been reviewed. Patient is reaching out to surgeon to request a referral. Rylee Guevara LPN 2025 10:17 AM Addendum Please see telephone note with todays date from Dr. Felipe stating referral to Hemoc. PSS please get on schedule with first available New Pt. PASQUALE Siu Melissa 2025 12:02 PM Signed Scheduled with patient Allergies As of Date: 2025 Noted Allergy Reaction LATEX 07/09/2012 2 - Rash Date Reviewed: 04/20/2025 Reviewed by: Michelle Dominguez RN - Fully Assessed Reason for Visit: Internal Referrals/resources [908] Cmt: Hem/Onc Prescriptions as of 2025 - oxyCODONE IR (ROXICODONE) 5 mg immediate release tablet Take 1 tablet by mouth every 6 hours as needed for pain for up to 5 days. - docusate sodium (COLACE) 100 mg capsule Take 1 capsule by mouth two times a day. - DEXCOM G7 SENSOR laisha Place once sensor on the back of the upper arm every 10 days. Use reader or phone jason for daily blood sugar checks. 1 month supply. - TOUJEO SOLOSTAR U-300 INSULIN 300 unit/mL (1.5 mL) INJECT 40 UNITS UNDER SKIN AT BEDTIME - HUMALOG KWIKPEN INSULIN 100 unit/mL 10 Units. - lisinopril (ZESTRIL) 5 mg tablet 5 mg. - metFORMIN (GLUCOPHAGE) 1,000 mg tablet 0 Refill(s) - rosuvastatin (CRESTOR) 10 mg tablet 10 mg. - sertraline (ZOLOFT) 50 mg tablet 50 mg. Meds Comments as of 07/09/2012: No daily medications Problem List As Of Date 2025 Noted Resolved Neoplasm of uncertain behavior of left kidney [*04/13/2025 H/O insulin dependent diabetes mellitus [Z86.39]04/13/2025 Left renal mass [N28.89] 04/18/2025 Encounter Status:Closed by NED HARRINGTON on 04/22/25 Normal [facility] Basic metabolic 2000 panelon 04-20-2025 Anion gap [Moles/Vol] 7 mmol/L Low 8-15 [facility] Comment on above: Order Comment: Speci men Type: BLOOD SPECIMEN Ordering Facility: [facility] Address: [address] [place] [address] Performed By: #### 2 4321-2 #### [facility] CLIA [id number] 1 [place] [address] [place] Calcium [Mass/Vol] 9.1 mg/dL Normal 8.5-10.2 [facility] Comment on above: Order Comment: Speci men Type: BLOOD SPECIMEN Ordering Facility: [facility] Address: [address] [place] [address] Performed By: #### 2 4321-2 #### [facility] CLIA [id number] [address] [place] Chloride [Moles/Vol] 103 mmol/L Normal 98-107 [facility] Comment on above: Order Comment: Speci men Type: BLOOD SPECIMEN Ordering Facility: [facility] Address: [address] [place] [address] Performed By: #### 2 4321-2 #### [facility] CLIA [id number] [address] [place] CO2 [Moles/Vol] 28 mmol/L Normal 22-30 [facility] Comment on above: Order Comment: Speci men Type: BLOOD SPECIMEN Ordering Facility: [facility] Address: [address] [place] [address] Performed By: #### 2 4321-2 #### [facility] CLIA [id number] [address] [place] Creatinine [Mass/Vol] 1.19 mg/dL High 0.58-0.96 [facility] Comment on above: Order Comment: Speci men Type: BLOOD SPECIMEN Ordering Facility: [facility] Address: [address] [place] [address] Performed By: #### 2 4321-2 #### [facility] CLIA [id number] [address] [place] eGFRcr SerPlBld CKD-EPI 2020 52 mL/min/1.73m??? Low >=60 [facility] Comment on above: Order Comment: Speci men Type: BLOOD SPECIMEN Ordering Facility: [facility] Address: [address] [place] [address] Result Comment: Rosi mated Glomerular Filtration Rate (eGFR) is calculated using the 2020 CKD-EPI creatinine equation. This equation utilizes serum creatinine, sex, and age as parameters. The creatinine assay has traceable calibration to isotope dilution-mass spectrometry. Refer to KDIGO guidelines for clinical interpretation. In patients with unstable renal function, e.g. those with acute kidney injury, the eGFR may not accurately reflect actual GFR. Performed By: #### 2 4321-2 #### [facility] CLIA [id number] [address] [place] [address] [place] Glucose [Mass/Vol] 126 mg/dL High 74-99 [facility] Comment on above: Order Comment: Alessandro samaniego Type: BLOOD SPECIMEN Ordering Facility: [facility] Address: [address] [place] [address] Result Comment: The [place] Diabetes Association (ADA) provides guidance for cutoff values for fasting glucose and random glucose. The ADA defines fasting as no caloric intake for at least 8 hours. Fasting plasma glucose results between 100 to 125 mg/dL indicate increased risk for diabetes (prediabetes). Fasting plasma glucose results greater than or equal to 126 mg/dL meet the criteria for diagnosis of diabetes. In the absence of unequivocal hyperglycemia, results should be confirmed by repeat testing. In a patient with classic symptoms of hyperglycemia or hyperglycemic crisis, random plasma glucose results greater than or equal to 200 mg/dL meet the criteria for diagnosis of diabetes. Reference: Standards of Medical Care in Diabetes 2016, [place] Diabetes Association. Diabetes Care. 2016.39(Suppl 1). Performed By: #### 2 4321-2 #### [facility] CLIA [id number] [address] [place] [address] [place] Potassium [Moles/Vol] 4.3 mmol/L Normal 3.7-5.1 [facility] Comment on above: Order Comment: Alessandro samaniego Type: BLOOD SPECIMEN Ordering Facility: [facility] Address: [address] [place] [address] Performed By: #### 2 4321-2 #### [facility] CLIA [id number] [address] [place] [address] [place] Sodium [Moles/Vol] 138 mmol/L Normal 136-144 [facility] Comment on above: Order Comment: Alessandro samaniego Type: BLOOD SPECIMEN Ordering Facility: [facility] Address: [address] [place] [address] Performed By: #### 2 4321-2 #### [facility] CLIA [id number] [address] STATES [facility] Urea nitrogen [Mass/Vol] 9 mg/dL Normal 7-21 [facility] Comment on above: Order Comment: Speci men Type: BLOOD SPECIMEN Ordering Facility: [facility] Address: [address] [place] [address] Performed By: #### 2 4321-2 #### [facility] CLIA [id number] [address] OF [facility] CBC panel Auto (Bld)on 04-20 Erythrocyte distribution width (RBC) [Ratio] 13.7 % Normal 11.5-15.0 [facility] Comment on above: Order Comment: Speci men Type: BLOOD SPECIMEN Ordering Facility: [facility] Address: [address] [place] [address] Performed By: #### 5 8410-2 #### [facility] CLIA [id number] [address] OF [facility] Hematocrit (Bld) [Volume fraction] 32.1 % Low 36.0-46.0 [facility] Comment on above: Order Comment: Speci men Type: BLOOD SPECIMEN Ordering Facility: [facility] Address: [address] [place] [address] Performed By: #### 5 8410-2 #### [facility] CLIA [id number] [address] OF [facility] Hemoglobin (Bld) [Mass/Vol] 10.0 g/dL Low 11.5-15.5 [facility] Comment on above: Order Comment: Speci men Type: BLOOD SPECIMEN Ordering Facility: [facility] Address: [address] [place] [address] Performed By: #### 5 8410-2 #### [facility] CLIA [id number] [address] STATES OF [facility] MCH (RBC) [Entitic mass] 29.2 pg Normal 26.0-34.0 [facility] Comment on above: Order Comment: Speci men Type: BLOOD SPECIMEN Ordering Facility: [facility] Address: [address] [place], [place] [address] Performed By: #### 5 8410-2 #### [facility] CLIA [id number] [address] MCHC (RBC) [Mass/Vol] 31.2 g/dL Normal 30.5-36.0 [facility] Comment on above: Order Comment: Speci men Type: BLOOD SPECIMEN Ordering Facility: [facility] Address: [facility] [place] [address] Performed By: #### 5 8410-2 #### [facility] CLIA [id number] [address] OF [place] MCV (RBC) [Entitic vol] 93.6 fL Normal 80.0-100.0 [facility] Comment on above: Order Comment: Speci men Type: BLOOD SPECIMEN Ordering Facility: [facility] Address: [address] [place] [address] Performed By: #### 5 8410-2 #### [facility] CLIA [id number] [address] OF [place] Nucleated RBC (Bld) [#/Vol] 10*3/uL Normal <0.01 [facility] Comment on above: Order Comment: Speci men Type: BLOOD SPECIMEN Ordering Facility: [facility] Address: [address] [place] [address] Performed By: #### 5 8410-2 #### [facility] CLIA [id number] [address] [place] Platelet mean volume (Bld) [Entitic vol] 11.5 fL Normal 9.0-12.7 [facility] Comment on above: Order Comment: Speci men Type: BLOOD SPECIMEN Ordering Facility: [facility] Address: [address] [place] [address] Performed By: #### 5 8410-2 #### [facility] CLIA [id number] [address] [place] Platelets (Bld) [#/Vol] 263 10*3/uL Normal 150-400 [facility] Comment on above: Order Comment: Speci men Type: BLOOD SPECIMEN Ordering Facility: [facility] Address: [address] [place] [address] Performed By: #### 5 8410-2 #### [facility] CLIA [id number] [address] OF [facility] RBC (Bld) [#/Vol] 3.43 10*6/uL Low 3.90-5.20 [facility] Comment on above: Order Comment: Speci men Type: BLOOD SPECIMEN Ordering Facility: [facility] Address: [address] [place] [address] Performed By: #### 5 8410-2 #### [facility] CLIA [id number] [address] WBC (Bld) [#/Vol] 8.33 10*3/uL Normal 3.70-11.00 [facility] Comment on above: Order Comment: Speci men Type: BLOOD SPECIMEN Ordering Facility: [facility] Address: [address] [place] [address] Performed By: #### 5 8410-2 #### [facility] CLIA [id number] [address] CNDSon 04-20-2025 [facility] HNO ID: [id number] Author: MEREDITH FELIPE MD Service: Urology Author Type: Physician Type: Discharge Summary Filed: 04/20/2025 13:03 Note Text: UROLOGY DISCHARGE SUMMARY PATIENT NAME: Lina Meadows ADMISSION DATE: 04/18/2025 DISCHARGE DATE: 04/20/2025 Attending Physician: Meredith Felipe MD Reason for Hospitalization: Principal Problem: Left renal mass (POA: Yes) Resolved Problems: * No resolved hospital problems. * Operations During Hospitalization: robotic L partial nephrectomy Hospital Course: Patient was admitted for the above surgery. Patient was transferred to the recovery unit and then to the regular nursing floor. Diet was slowly advanced as tolerated. Activity level was gradually increased. Pain was controlled on oral medications. The patient was then deemed fit for discharge. Patient was discharged without bloom in place. Labs and Procedures Pending at Discharge: No pending results. Consulting Teams During Hospitalization: none Patient Condition @ Discharge: Stable Discharge Disposition: Home with Self Care Information Provided to Patient: See discharge instructions Discharge Medications: Medication List START taking these medications docusate [...] Your Medications These medications were sent to [facility] - [place] [address] [address] [facility] - [phone] 629 [facility] [address] docusate sodium 100 mg capsule oxyCODONE IR 5 mg immediate release tablet Future Appointments: Follow Up with Dr. Felipe TIME OF CARE: Discharge Management: I personally spent less than 30 minutes involved in the discharge management of this patient. SIGNATURE: Mimi Mcdermott DO DATE: April 20, 2025 TIME: 12:43 PM I evaluated the patient. Discussed with the resident and agree with resident's findings and plan as documented in the resident's note. Normal [facility] Basic metabolic 2000 panelon 04-19-2025 Anion gap [Moles/Vol] 8 mmol/L Normal 8-15 [facility] Comment on above: Order Comment: Speci men Type: BLOOD SPECIMEN Ordering Facility: [facility] Address: [address] [place] [address] Performed By: #### 2 4321-2 #### [facility] CLIA [id number] [address] [place] Calcium [Mass/Vol] 8.9 mg/dL Normal 8.5-10.2 [facility] Comment on above: Order Comment: Speci men Type: BLOOD SPECIMEN Ordering Facility: [facility] Address: [address] [place] [address] Performed By: #### 2 4321-2 #### [facility] CLIA [id number] [address] [place] Chloride [Moles/Vol] 104 mmol/L Normal 98-107 [facility] Comment on above: Order Comment: Speci men Type: BLOOD SPECIMEN Ordering Facility: [facility] Address: [address] [place] [address] Performed By: #### 2 4321-2 #### [facility] CLIA [id number] [address] [place] CO2 [Moles/Vol] 26 mmol/L Normal 22-30 [facility] Comment on above: Order Comment: Speci men Type: BLOOD SPECIMEN Ordering Facility: [facility] Address: [address] [place] [address] Performed By: #### 2 4321-2 #### [facility] CLIA [id number] [address] [place] Creatinine [Mass/Vol] 1.07 mg/dL High 0.58-0.96 [facility] Comment on above: Order Comment: Speci men Type: BLOOD SPECIMEN Ordering Facility: [facility] Address: [address] [place] [address] Performed By: #### 2 4321-2 #### [facility] CLIA [id number] [address] [place] eGFRcr SerPlBld CKD-EPI 2020 59 mL/min/1.73m??? Low >=60 [facility] Comment on above: Order Comment: Speci men Type: BLOOD SPECIMEN Ordering Facility: [facility] Address: [address] [place] [address] Result Comment: Rosi mated Glomerular Filtration Rate (eGFR) is calculated using the 2020 CKD-EPI creatinine equation. This equation utilizes serum creatinine, sex, and age as parameters. The creatinine assay has traceable calibration to isotope dilution-mass spectrometry. Refer to KDIGO guidelines for clinical interpretation. In patients with unstable renal function, e.g. those with acute kidney injury, the eGFR may not accurately reflect actual GFR. Performed By: #### 2 4321-2 #### [facility] CLIA [id number] 1 [place] [address] [place] Glucose [Mass/Vol] 45 mg/dL Low 74-99 [facility] Comment on above: Order Comment: Speci men Type: BLOOD SPECIMEN Ordering Facility: [facility] Address: [address] [place] [address] Result Comment: The [place] Diabetes Association (ADA) provides guidance for cutoff values for fasting glucose and random glucose. The ADA defines fasting as no caloric intake for at least 8 hours. Fasting plasma glucose results between 100 to 125 mg/dL indicate increased risk for diabetes (prediabetes). Fasting plasma glucose results greater than or equal to 126 mg/dL meet the criteria for diagnosis of diabetes. In the absence of unequivocal hyperglycemia, results should be confirmed by repeat testing. In a patient with classic symptoms of hyperglycemia or hyperglycemic crisis, random plasma glucose results greater than or equal to 200 mg/dL meet the criteria for diagnosis of diabetes. Reference: Standards of Medical Care in Diabetes 2016, [place] Diabetes Association. Diabetes Care. 2016.39(Suppl 1). Performed By: #### 2 4321-2 #### [facility] CLIA [id number] [address] [place] Potassium [Moles/Vol] 3.7 mmol/L Normal 3.7-5.1 [facility] Comment on above: Order Comment: Speci men Type: BLOOD SPECIMEN Ordering Facility: [facility] Address: [address] [id number] Performed By: #### 2 4321-2 #### [facility] CLIA [id number] 1 [place] [address] [place] Sodium [Moles/Vol] 138 mmol/L Normal 136-144 [facility] Comment on above: Order Comment: Speci men Type: BLOOD SPECIMEN Ordering Facility: [facility] Address: [address] [place] [address] Performed By: #### 2 4321-2 #### [facility] CLIA [id number] [address] Urea nitrogen [Mass/Vol] 9 mg/dL Normal 7-21 [facility] Comment on above: Order Comment: Speci men Type: BLOOD SPECIMEN Ordering Facility: [facility] Address: [address] [place] [address] Performed By: #### 2 4321-2 #### [facility] CLIA [id number] [address] CBC panel Auto (Bld)on 04-19 Erythrocyte distribution width (RBC) [Ratio] 14.1 % Normal 11.5-15.0 [facility] Comment on above: Order Comment: Speci men Type: BLOOD SPECIMEN Ordering Facility: [facility] Address: [address] [place] [address] Performed By: #### 5 8410-2 #### [facility] CLIA [id number] [address] Hematocrit (Bld) [Volume fraction] 33.1 % Low 36.0-46.0 [facility] Comment on above: Order Comment: Speci men Type: BLOOD SPECIMEN Ordering Facility: [facility] Address: [address] [place] [address] Performed By: #### 5 8410-2 #### [facility] CLIA [id number] [address] Hemoglobin (Bld) [Mass/Vol] 10.6 g/dL Low 11.5-15.5 [facility] Comment on above: Order Comment: Speci men Type: BLOOD SPECIMEN Ordering Facility: [facility] Address: [address] [place] [address] Performed By: #### 5 8410-2 #### [facility] CLIA [id number] [address] [place] [address] [place] MCH (RBC) [Entitic mass] 29.7 pg Normal 26.0-34.0 [facility] Comment on above: Order Comment: Speci men Type: BLOOD SPECIMEN Ordering Facility: [facility] Address: [address] [place] [address] Performed By: #### 5 8410-2 #### [facility] CLIA [id number] [address] MCHC (RBC) [Mass/Vol] 32.0 g/dL Normal 30.5-36.0 [facility] Comment on above: Order Comment: Speci men Type: BLOOD SPECIMEN Ordering Facility: [facility] Address: [address] [place] [address] Performed By: #### 5 8410-2 #### [facility] CLIA [id number] [address] MCV (RBC) [Entitic vol] 92.7 fL Normal 80.0-100.0 [facility] Comment on above: Order Comment: Speci men Type: BLOOD SPECIMEN Ordering Facility: [facility] Address: [address] [place] [address] Performed By: #### 5 8410-2 #### [facility] CLIA [id number] [address] Nucleated RBC (Bld) [#/Vol] 10*3/uL Normal <0.01 [facility] Comment on above: Order Comment: Speci men Type: BLOOD SPECIMEN Ordering Facility: [facility] Address: [address] [place] [address] Performed By: #### 5 8410-2 #### [facility] CLIA [id number] [address] Platelet mean volume (Bld) [Entitic vol] 12.7 fL Normal 9.0-12.7 [facility] Comment on above: Order Comment: Speci men Type: BLOOD SPECIMEN Ordering Facility: [facility] Address: [address] [place] [address] Performed By: #### 5 8410-2 #### [facility] CLIA [id number] [address] [place] Platelets (Bld) [#/Vol] 251 10*3/uL Normal 150-400 [facility] Comment on above: Order Comment: Speci men Type: BLOOD SPECIMEN Ordering Facility: [facility] Address: [address] [place] [address] Performed By: #### 5 8410-2 #### [facility] CLIA [id number] [address] [place] RBC (Bld) [#/Vol] 3.57 10*6/uL Low 3.90-5.20 [facility] Comment on above: Order Comment: Speci men Type: BLOOD SPECIMEN Ordering Facility: [facility] Address: [address] [place] [address] Performed By: #### 5 8410-2 #### [facility] CLIA [id number] [address] WBC (Bld) [#/Vol] 7.92 10*3/uL Normal 3.70-11.00 [facility] Comment on above: Order Comment: Speci men Type: BLOOD SPECIMEN Ordering Facility: [facility] Address: [address] [place] [address] Performed By: #### 5 8410-2 #### [facility] CLIA [id number] [address] CNDSon 04-19-2025 CNDS HNO ID: [id number] Author: MEREDITH FELIPE MD Service: Urology Author Type: Physician Type: Discharge Summary Filed: 04/19/2025 11:53 Note Text: DISCHARGE NOTE (Patient Admitted Less than 48 Hours) SERVICE DATE: 04/19/2025 SERVICE TIME: 10:21 AM ADMISSION DATE: 04/18/2025 DISCHARGE DISPOSITION: Home with Self Care Mrs. Meadows underwent an uncomplicated robotic left radical nephrectomy on 04/18. On POD1, she was tolerating a diet, breathing on room air, denies fever and chills, pain was controlled on PO meds, she was voiding and felt ready for discharge. DIET: Regular ACTIVITY AFTER DISCHARGE: Lifting is restricted to 15-20 lbs for 4-6 weeks, no driving on narcotics, ok to bathe shower, ok to ambulate May bathe and shower FOLLOW UP CARE REQUIRED: Follow up with Dr. Felipe DISCHARGE MEDICATIONS: Medication List START taking these medications docusate sodium 100 mg capsule Commonly known as: COLACE Take 1 capsule by mouth two times a day. oxyCODONE IR 5 mg immediate release tablet Commonly known as: ROXICODONE Take 1 tablet by mouth every 6 hours as needed for pain for up to 5 days. ASK your doctor about these medications DEXCOM G7 SENSOR Laisha Generic [...] Your Medications These medications were sent to [facility] - [place] [address] [address] [phone] [facility] [place] [address] docusate sodium 100 mg capsule oxyCODONE IR 5 mg immediate release tablet FINAL DIAGNOSIS: Left Renal Mass Active Hospital Problems Diagnosis POA Left renal mass Yes Resolved Hospital Problems No resolved problems to display. SIGNATURE: Blaine Wolff MD PATIENT NAME: Lina Tamezs DATE: April 19, 2025 TIME: 10:21 AM I saw and evaluated the patient. Discussed with the resident and agree with resident's findings and plan as documented in the resident's note. 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 Post Anesthesia Patient Status Anticipated Disposition: inpatient floor planned admission. Neurological Status: sleepy but arousable. Pulmonary Status: breathing comfortably on supplemental oxygen Airway Control: returned to baseline unsupported. Cardiovascular Status: stable. Pain Management: clinically adequate - multimodal analgesia pain management approach Postoperative Hydration: acceptable. Intraoperative Events: no significant anesthesia events Post Operative Nausea/Vomiting Status: no significant post operative nausea or vomiting Recommendation: further care per PACU/ICU/floor team. Anesthesia Observations No Documentation SIGNATURE: Bayron Rios DO PATIENT NAME: Lina Meadows DATE: April 18, 2025 TIME: 5:20 PM CSN: [id number] Normal [facility] ANES PRE-OPon 04-18-2025 ANES PRE-OP HNO ID: [id number] Author: BAYRON RIOS DO Service: Anesthesiology Author Type: Physician Type: Anesthesia Preprocedure Evaluation Filed: 04/18/2025 13:29 Note Text: ANESTHESIOLOGY DAY OF SURGERY NOTE : 1960 Procedure Information Date/Time: 04/18/25 1130 Procedure: XI ROBOTIC LAPAROSCOPIC NEPHRECTOMY RADICAL (Left: Kidney) Location: CT OR OR Surgeons: Meredith Felipe MD Estimated body mass index is 22.99 kg/m? as calculated from the following: Height as of 04/13/25: 160 cm (5' 3). Weight as of this encounter: 58.9 kg (129 lb 12.8 oz). Most recent hematocrit and potassium results: Hematocrit 35.3 04/18/2025 Potassium 3.8 04/18/2025 Relevant Problems -RENAL (+) Neoplasm of uncertain behavior of left kidney Endocrinology (+) H/O insulin dependent diabetes mellitus I - PHYSICAL EVALUATION AIRWAY Patient intubated: No. Tracheostomy tube not present Mallampati: II. TM distance: >3 FB. Neck ROM: full ROM without neurological symptoms. Mouth openin FB. Short neck: no. Thick neck: no DENTAL Dental findings: teeth intact. Additional exam findings: yes. CARDIOVASCULAR Normal cardiovascular observations. PULMONARY Normal pulmonary observations. II - ANESTHESIA PLAN ASA Score: 3 Anesthetic Plan: general Airway type: ETT NPO Status: adequate Monitoring Plan Monitoring plan: standard ASA. Post Procedure Analgesic Plan Postoperative analgesic plan: parenteral or oral opioids and multimodal analgesia. Informed Consent Anesthetic risks, benefits, alternatives, personnel and consent discussed: yes. Patient / Responsible [employer] Party agrees to proceed: yes Patient / Surrogate agrees to blood products: Yes Significant changes in the patient condition since the History and Physical, not otherwise documented in primary service progress note: no. Vitals Value Taken Time BP 166/82 04/18/25 11:42 Pulse 89 04/18/25 11:42 Resp 16 04/18/25 11:42 Temp 36.1 ?C (97 ?F) 04/18/25 11:42 SpO2 100 % 04/18/25 10:29 Vitals shown include unfiled device data. Facility-Administered Medications as of 04/18/2025 Medication Dose Route Frequency lidocaine (PF) 10 mg/mL (1 %) 1-2 mg injection (XYLOCAINE) 0.1-0.2 mL INTRADERMAL PRN lactated ringers iv infusion 5-30 mL/hr INTRAVENOUS CONTINUOUS NaCl 0.9% iv flush bag 20 mL INTRAVENOUS PRN [COMPLETED] acetaminophen 975 mg tab(s) (TYLENOL) 975 mg ORAL Pre-Op Once [COMPLETED] gabapentin 300 mg cap(s) (NEURONTIN) 300 mg ORAL Pre-Op Once [COMPLETED] vancomycin iv piggyback 1 g in D5W 200 mL (VANCOCIN) 1 g INTRAVENOUS ONCE gentamicin 160 mg in D5W 100 mL 160 mg INTRAVENOUS ONCE Outpatient Medications as of 04/18/2025 Medication Sig HUMALOG KWIKPEN INSULIN 100 unit/mL 10 Units. lisinopril (ZESTRIL) 5 mg tablet 5 mg. metFORMIN (GLUCOPHAGE) 1,000 mg tablet 0 Refill(s) rosuvastatin (CRESTOR) 10 mg tablet 10 mg. sertraline (ZOLOFT) 50 mg tablet 50 mg. I have interviewed and examined the patient. I have reviewed the medical record and/or the pre-anesthesia evaluation, pertinent labs, and test results. This contains updated information obtained within 48 hours of Surgery/Procedure. SIGNATURE: Bayron Rios DO PATIENT NAME: Lina Winkler Masters DATE: April 18, 2025 TIME: 1:28 PM CSN: [id number] Normal [facility] Basic metabolic 2000 panelon 04-18-2025 Anion gap [Moles/Vol] 10 mmol/L Normal 8-15 [facility] Comment on above: Order Comment: Speci men Type: BLOOD SPECIMEN Ordering Facility: [facility] Address: [address] [place] [address] Performed By: #### 2 4321-2 #### [facility] CLIA [id number] [address] [place] [address] [place] Calcium [Mass/Vol] 9.6 mg/dL Normal 8.5-10.2 [facility] Comment on above: Order Comment: Speci men Type: BLOOD SPECIMEN Ordering Facility: [facility] Address: [address] [place] [address] Performed By: #### 2 4321-2 #### [facility] CLIA [id number] 1 [place] [address] [place] Chloride [Moles/Vol] 104 mmol/L Normal 98-107 [facility] Comment on above: Order Comment: Speci men Type: BLOOD SPECIMEN Ordering Facility: [facility] Address: [address] [place] [address] Performed By: #### 2 4321-2 #### [facility] CLIA [id number] [address] [place] [address] [place] CO2 [Moles/Vol] 28 mmol/L Normal 22-30 [facility] Comment on above: Order Comment: Speci men Type: BLOOD SPECIMEN Ordering Facility: [facility] Address: [address] [place] [address] Performed By: #### 2 4321-2 #### [facility] CLIA [id number] [address] STATES OF [facility] Creatinine [Mass/Vol] 0.65 mg/dL Normal 0.58-0.96 [facility] Comment on above: Order Comment: Alessandro men Type: BLOOD SPECIMEN Ordering Facility: [facility] Address: [address] [place] [address] Performed By: #### 2 4321-2 #### [facility] CLIA [id number] [address] eGFRcr SerPlBld CKD-EPI 2020 100 mL/min/1.73m??? Normal >=60 [facility] Comment on above: Order Comment: Alessandro danette Type: BLOOD SPECIMEN Ordering Facility: [facility] Address: [address] [place] [address] Result Comment: Rosi mated Glomerular Filtration Rate (eGFR) is calculated using the 2020 CKD-EPI creatinine equation. This equation utilizes serum creatinine, sex, and age as parameters. The creatinine assay has traceable calibration to isotope dilution-mass spectrometry. Refer to KDIGO guidelines for clinical interpretation. In patients with unstable renal function, e.g. those with acute kidney injury, the eGFR may not accurately reflect actual GFR. Performed By: #### 2 4321-2 #### [facility] CLIA [id number] [address] STATES OF [facility] Glucose [Mass/Vol] 93 mg/dL Normal 74-99 [facility] Comment on above: Order Comment: Randeeasad samaniego Type: BLOOD SPECIMEN Ordering Facility: [facility] Address: [address] [place] [address] Result Comment: The [place] Diabetes Association (ADA) provides guidance for cutoff values for fasting glucose and random glucose. The ADA defines fasting as no caloric intake for at least 8 hours. Fasting plasma glucose results between 100 to 125 mg/dL indicate increased risk for diabetes (prediabetes). Fasting plasma glucose results greater than or equal to 126 mg/dL meet the criteria for diagnosis of diabetes. In the absence of unequivocal hyperglycemia, results should be confirmed by repeat testing. In a patient with classic symptoms of hyperglycemia or hyperglycemic crisis, random plasma glucose results greater than or equal to 200 mg/dL meet the criteria for diagnosis of diabetes. Reference: Standards of Medical Care in Diabetes 2016, [place] Diabetes [employer]. Diabetes Care. 2016.39(Suppl 1). Performed By: #### 2 4321-2 #### [facility] CLIA [id number] [address] Potassium [Moles/Vol] 3.8 mmol/L Normal 3.7-5.1 [facility] Comment on above: Order Comment: Alessandro samaniego Type: BLOOD SPECIMEN Ordering Facility: [facility] Address: [address] [place] [address] Performed By: #### 2 4321-2 #### [facility] CLIA [id number] [address] Sodium [Moles/Vol] 142 mmol/L Normal 136-144 [facility] Comment on above: Order Comment: Randeei danetet Type: BLOOD SPECIMEN Ordering Facility: [facility] Address: [address] [place] [address] Performed By: #### 2 4321-2 #### [facility] CLIA [id number] [address] Urea nitrogen [Mass/Vol] 6 mg/dL Low 7-21 [facility] Comment on above: Order Comment: Randeei men Type: BLOOD SPECIMEN Ordering Facility: [facility] Address: [address] [place] [address] Performed By: #### 2 4321-2 #### [facility] CLIA [id number] [address] CBC panel Auto (Bld)on 04-18 Erythrocyte distribution width (RBC) [Ratio] 13.6 % Normal 11.5-15.0 [facility] Comment on above: Order Comment: Randeei men Type: BLOOD SPECIMEN Ordering Facility: [facility] Address: [address] [place] [address] Performed By: #### 5 8410-2 #### [facility] CLIA [id number] [address] Hematocrit (Bld) [Volume fraction] 35.3 % Low 36.0-46.0 [facility] Comment on above: Order Comment: Speci men Type: BLOOD SPECIMEN Ordering Facility: [facility] Address: [address] [place] [address] Performed By: #### 5 8410-2 #### [facility] CLIA [id number] [address] OF [facility] Hemoglobin (Bld) [Mass/Vol] 11.3 g/dL Low 11.5-15.5 [facility] Comment on above: Order Comment: Speci men Type: BLOOD SPECIMEN Ordering Facility: [facility] Address: [address] [place] [address] Performed By: #### 5 8410-2 #### [facility] CLIA [id number] [address] MCH (RBC) [Entitic mass] 29.3 pg Normal 26.0-34.0 [facility] Comment on above: Order Comment: Speci men Type: BLOOD SPECIMEN Ordering Facility: [facility] Address: [address] [place] [address] Performed By: #### 5 8410-2 #### [facility] CLIA [id number] [address] [place] MCHC (RBC) [Mass/Vol] 32.0 g/dL Normal 30.5-36.0 [facility] Comment on above: Order Comment: Speci men Type: BLOOD SPECIMEN Ordering Facility: [facility] Address: [address] [place] [address] Performed By: #### 5 8410-2 #### [facility] CLIA [id number] [address] [place] MCV (RBC) [Entitic vol] 91.5 fL Normal 80.0-100.0 [facility] Comment on above: Order Comment: Speci men Type: BLOOD SPECIMEN Ordering Facility: [facility] Address: [address] [place] [address] Performed By: #### 5 8410-2 #### [facility] CLIA [id number] [address] [place] Nucleated RBC (Bld) [#/Vol] 10*3/uL Normal <0.01 [facility] Comment on above: Order Comment: Speci men Type: BLOOD SPECIMEN Ordering Facility: [facility] Address: [address] [place], [place] [address] Performed By: #### 5 8410-2 #### [facility] CLIA [id number] [address] [place] Platelet mean volume (Bld) [Entitic vol] 11.7 fL Normal 9.0-12.7 [facility] Comment on above: Order Comment: Speci men Type: BLOOD SPECIMEN Ordering Facility: [facility] Address: [address] [place] [address] Performed By: #### 5 8410-2 #### [facility] CLIA [id number] [address] [place] Platelets (Bld) [#/Vol] 252 10*3/uL Normal 150-400 [facility] Comment on above: Order Comment: Speci men Type: BLOOD SPECIMEN Ordering Facility: [facility] Address: [address] [place] [address] Performed By: #### 5 8410-2 #### [facility] CLIA [id number] [address] [place] RBC (Bld) [#/Vol] 3.86 10*6/uL Low 3.90-5.20 [facility] Comment on above: Order Comment: Speci men Type: BLOOD SPECIMEN Ordering Facility: [facility] Address: [address] [place] [address] Performed By: #### 5 8410-2 #### [facility] CLIA [id number] 1 [place] [address] [place] WBC (Bld) [#/Vol] 3.98 10*3/uL Normal 3.70-11.00 [facility] Comment on above: Order Comment: Speci men Type: BLOOD SPECIMEN Ordering Facility: [facility] Address: [address] [place] [address] Performed By: #### 5 8410-2 #### [facility] CLIA [id number] [address] [place] CNPNon 04-18-2025 CNPN Telephone (UROLAE) LINA MEADOWS ([id number]) 1960 F Date Time Provider Department 04/18/25 MEREDITH FELIPE During your visit today, we recorded the following information about you: Meredith Felipe MD 04/18/2025 4:29 PM Signed 04/18/2025: RA RetroLap Left Radical Nephrectomy: F/u 6 weeks Daysi Giron 04/19/2025 9:08 AM Signed Appt made on 06/09/25 2 PM Exchange. Call patient to confirm after she has been discharged from hospital. Daysi Giron 04/21/2025 11:19 AM Signed I called and spoke with patient. She confirmed the appt noted below. Appt reminder mailed per her request. Allergies As of Date: 04/18/2025 Noted Allergy Reaction LATEX 07/09/2012 2 - Rash Date Reviewed: 04/18/2025 Reviewed by: Marjorie Watkins RN - Fully Assessed Reason for Visit: Surgical Followup [104] Prescriptions as of 04/21/2025 - oxyCODONE IR (ROXICODONE) 5 mg immediate release tablet Take 1 tablet by mouth every 6 hours as needed for pain for up to 5 days. - docusate sodium (COLACE) 100 mg capsule Take 1 capsule by mouth two times a day. - DEXCOM G7 SENSOR laisha Place once sensor on the back of the upper arm every 10 days. Use reader or phone jason for daily blood sugar checks. 1 month supply. - TOUJEO SOLOSTAR U-300 INSULIN 300 unit/mL (1.5 mL) INJECT 40 UNITS UNDER SKIN AT BEDTIME - HUMALOG KWIKPEN INSULIN 100 unit/mL 10 Units. - lisinopril (ZESTRIL) 5 mg tablet 5 mg. - metFORMIN (GLUCOPHAGE) 1,000 mg tablet 0 Refill(s) - rosuvastatin (CRESTOR) 10 mg tablet 10 mg. - sertraline (ZOLOFT) 50 mg tablet 50 mg. Meds Comments as of 07/09/2012: No daily medications Problem List As Of Date 04/18/2025 Noted Resolved Neoplasm of uncertain behavior of left kidney [*04/13/2025 H/O insulin dependent diabetes mellitus [Z86.39]04/13/2025 Left renal mass [N28.89] 04/18/2025 Encounter Status:Closed by MEREDITH FELIPE on 04/18/25 Normal [facility] CONFIRM BLOOD TYPEon 025 ABO A Normal [facility] Comment on above: Order Comment: Speci men Type: BLOOD SPECIMEN Ordering Facility: [facility] Address: [address] [place] [address] Performed By: #### C ONABO #### [facility] CLIA [id number] [address] [place] Rh Nom (Bld) Positive Normal [facility] Comment on above: Order Comment: Speci men Type: BLOOD SPECIMEN Ordering Facility: [facility] Address: [address] [place] [address] Performed By: #### C ONABO #### [facility] CLIA [id number] [address] [place] [address] [place] NURSING PROGon 04-18-2025 NURSING PROG HNO ID: [id number] Author: ELIZABETH BLACKMAN APRN.OPTICAL EFFECTS LINE UP PERSON Service: General Surgery Author Type: Nurse Practitioner Type: Nursing Progress Note Filed: 04/18/2025 07:22 Note Text: Summary: PAT HANDP done 04/13/[address] Felipe. [facility] OPERATIVE NOon 04-18-2025 OPERATIVE NO HNO ID: [id number] Author: MEREDITH FELIPE MD Service: Urology Author Type: Physician Type: Operative Report Filed: 04/19/2025 08:18 Note Text: OPERATIVE/PROCEDURE REPORT LOG ID: [id number] SURGERY/PROCEDURE DATE: 04/18/2025 INCISION/PROCEDURE START TIME: 2:09 PM INCISION CLOSE/PROCEDURE END TIME: 4:49 PM SURGEON(S)/PROCEDURALIS T(S) AND CHARACTER ACTRESS(S): Surgeons and Role: * Meredith Felipe MD - Primary * Blaine Wolff MD - Resident - Assisting Toe Pounder: Monty Agosto SA Toe Pounder (Relief): Khang Cheema SA SURGERY/PROCEDURE(S): Robot assisted laparoscopic left Radical Nephrectomy PRE-OP/PRE-PROCEDURE DIAGNOSIS: left renal mass POST-OP/POST-PROCEDURE DIAGNOSIS: same ANESTHESIA: General ESTIMATED BLOOD LOSS: 50 mls SPECIMENS: left renal mass IMPLANTABLE DEVICES: NONE DRAINS: None COMPLICATIONS: None PARTICIPATION IN SURGERY/PROCEDURE: I/primary surgeon/proceduralist performed the procedure with assistance. OPERATIVE INDICATIONS: Lina Meadows is a 64 year old year old patient found to have left renal mass on preoperative imaging. Patient was advised of his options for treatment including all risks, benefits and alternatives to surgery. He ultimately elected to undergo robotic left radical nephrectomy. Patient was explained the risks, benefits, options and expected outcomes of the procedure and possible complications preoperatively. Informed consent was obtained. Patient was given perioperative antibiotics and DVT prophylaxis in preop holding area. General anesthesia was administered. A time out was performed and all present were in agreement. OPERATIVE PROCEDURE: A Bloom catheter was placed. A nasogastrictube was placed by anesthesia. Patient was placed in the left modified flank position. All the pressure points were padded and patient secured to the table with Velcro foam straps. Patient was prepped with Chloroprep and draped in usual sterile fashion. Port Placement A Veress needle was placed lateral to the rectus muscle at the level of the tip of the 11th rib through an incision. Appropriate placement was confirmed by aspiration, drop test and low initial pressures. Pneumoperitoneum of 15 mmHg was established with expected abdominal distention. Using a 8-mm cannula, a robotic port was placed at the site of the veress needle. Initial view of the peritoneum demonstrated no intraabdominal injuries from the Veress needle. There were no adhesions. All other ports were placed under direct vision. One 12 mm AND Two additional 8 mm robotic ports under direct visualization. A 12 mm senior administrative assistant Air Seal port was placed. After placing the ports the pneumoperitoneum pressure was decreased to 12 mmHg. The robot was then docked to the ports. Exposure of kidney The peritoneum was incised lateral to the colon at the white line of Toldt from the kidney to the pelvic brim. The plane was found between the mesentery and Gerota's fascia.The tail of gerota's fascia was identified anterior to the psoas minor tendon. The ureter and gonadal vessels were then identified and used to trace up to the level of the renal hilum. The ureter was elevated and the gonadal vein was dropped. The splenic attachments superiorly were taken down. Hilar Dissection The renal hilum was carefully dissected to isolate the renal vessels. During this, a vessel was clipped and divided. Single renal vein and the renal artery were found and isolated and skeletenized free of hilar fat. The robotic stapler with vascular load was deployed, clamped and fired to control the hilum. There were no complications. Using sharp AND blunt dissection and cautery, the medial, lateral and superior attachments of the kidney were taken down. The ureter was transected with the robotic stapler. The kidney was freed of all attachments. Specimen Retrieval and Closure The specimen was placed in a large laparoscopic specimen bag. Hemostasis was excellent. The robot was undocked. The camera port and inferior arm port were connected by extending the incisions. This was taken down through all layers into the peritoneum. The specimen within the retrieval bag was removed . All ports were removed. The fascial layers of the posterior and anterior sheath were closed individually with 0 PDS. Exparel was injected subcutaneously. Skin was closed by 4-0 monocryl. Skin glue was applied to the incisions. Patient tolerated the procedure well. The patient was awoken from anesthesia and brought to the PACU instable condition. SIGNATURE: Blaine Wolff MD PATIENT NAME: Lina Tamezs DATE: April 18, 2025 TIME: 5:05 PM PAGER/CONTACT #: I was present and participated during the entire procedure, including on gamino portions. Meredith Felipe M.D. [facility] Pathology biopsy report Bc (Tiss)on 04-18-2025 AP DISCLAIMER Normal [facility] Comment on above: Order Comment: Speci men Type: TISSUE SPECIMEN Ordering Facility: [facility] Address: [address] [place] [address] Result Comment: Chino vigil Developed Test (LDT) Disclaimer: Performance characteristics of immunohistochemical, immunofluorescent, and chromogenic in-situ hybridization tests have been determined by the performing laboratory within the [facility] Department of Pathology and Laboratory Medicine ([facility]), [facility], [facility], [facility], [facility], [facility], or [facility]) in a manner consistent with CLIA requirements. One or more of these tests may not have been cleared or approved by the FDA. The [facility] Department of Pathology and Laboratory Medicine is regulated under CLIA as qualified to perform high-complexity testing. These tests are used for clinical purposes. These should not be regarded as investigational or for research. Positive and negative controls stain appropriately. Performed By: #### 6 6121-5 #### [facility] CLIA [id number] [address] [place] [address] [place] BLOCK FOR ADDITIONAL BIOMARKERS/MOLECULAR STUDIES A4 Normal [facility] Comment on above: Order Comment: Speci men Type: TISSUE SPECIMEN Ordering Facility: [facility] Address: [address] [place] [address] Performed By: #### 6 6121-5 #### [facility] CLIA [id number] [address] CASE REPORT Normal [facility] Comment on above: Order Comment: Speci men Type: TISSUE SPECIMEN Ordering Facility: [facility] Address: [address] [place] [address] Result Comment: Surg ical Pathology Report Case: [id number] Authorizing Provider: Meredith Felipe MD Collected: 04/18/2025 04:18 PM Ordering Location: [facility] Received: 04/19/2025 08:09 AM Pathologist: David Hernandez MD Specimen: Kidney, Left, Resection, Left radical nephrectomy Performed By: #### 6 6121-5 #### [facility] CLIA [id number] [address] [place] [address] CLINICAL HISTORY Normal [facility] Comment on above: Order Comment: Speci men Type: TISSUE SPECIMEN Ordering Facility: [facility] Address: [address] [place] [address] Result Comment: Pre- op diagnosis: 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 Jelena Rowe who agrees with the overall interpretation. Normal [facility] Comment on above: Order Comment: Speci men Type: TISSUE SPECIMEN Ordering Facility: [facility] Address: [address] [place] [address] Performed By: #### 6 6121-5 #### [facility] CLIA [id number] [address] [place] [address] FINAL DIAGNOSIS Normal [facility] Comment on above: Order Comment: Speci men Type: TISSUE SPECIMEN Ordering Facility: [facility] Address: [address] [place] [address] Result Comment: A. K idney, Left, Radical Nephrectomy: - Clear cell renal cell carcinoma, WHO/ISUP grade 3 (see comment). - Tumor size: 6.5 cm in greatest dimension. - Tumor invades branch of renal vein. - Margins negative for tumor. - Unremarkable adrenal gland. at 0842 EDT Performed By: #### 6 6121-5 #### [facility] CLIA [id number] [address] FINAL PERFORMING LAB Normal [facility] Comment on above: Order Comment: Speci men Type: TISSUE SPECIMEN Ordering Facility: [facility] Address: [address] [place] [address] Result Comment: Diag nostic interpretation performed at: [facility], [address] [address] CLIA# [id number] Program Coordinator For [employer]idence [employer]: Sanjiv Bhagat MD Performed By: #### 6 6121-5 #### [facility] CLIA [id number] [address] [place] [address] GROSS DESCRIPTION Normal [facility] Comment on above: Order Comment: Speci men Type: TISSUE SPECIMEN Ordering Facility: [facility] Address: [address] [place] [address] Result Comment: Kisha rosas, Left, Resection Received in formalin labeled left radical nephrectomy is a left kidney surrounded by an envelope of fibroadipose tissue measuring 16 x 6.5 x 6 cm. The kidney itself measures 14 x 6 x 6 cm. A 6.5 x 6 x 6 cm mass involves the lower portion of the kidney. The mass is roughly spherical, orange with foci of hemorrhage and necrosis. The mass does not extend into the perirenal fat and is not present at the soft tissue line of the specimen. The mass is located 0.1 cm from the inked soft tissue margin. The mass does not appear to involve the renal sinus grossly. The mass is sharply demarcated from the renal parenchyma which appears essentially unremarkable. Satellite nodules are not present. Dissection of the renal veins does not show intravascular presence of the neoplasm. A definitive adrenal gland is not present. However, a line of heather is removed with possible adrenal tissue attached aggregating to approximately 1 x 0.4 x 0.3 cm. A segment of ureter measuring 5 cm is identified and unremarkable. A gross photograph is taken attached to the case. Tier In sections are submitted as follows: A1: Ureter, shave A2: Vascular, shave A3: Possible minimal adrenal tissue stapled off A4-A5: Mass in relation to perinephric fat and soft tissue margin A6-A9: Mass in relation to renal sinus A10: Mass in relation to uninvolved parenchyma A11: Uninvolved Gross examination performed at 1 [facility] Attn Circuit [employer] [address] April 19, 2025 10:38 AM Performed By: #### 6 6121-5 #### [facility] CLIA [id number] [address] [place] SYNOPTIC REPORT Normal [facility] Comment on above: Order Comment: Speci men Type: TISSUE SPECIMEN Ordering Facility: [facility] Address: [address] [place] [address] Result Comment: [place]: Nephrectomy KIDNEY: RESECTION - All Specimens 8th Edition - Protocol posted: 12/24/2023 SPECIMEN Procedure: Radical nephrectomy Specimen Laterality: Left TUMOR Tumor Focality: Unifocal Tumor Size: Greatest Dimension (Centimeters): 6.5 cm Additional Dimension (Centimeters): 6 cm Additional Dimension (Centimeters): 6 cm Histologic Type: Clear cell renal cell carcinoma Histologic Grade (WHO / ISUP): G3, nucleoli conspicuous at 100x magnification Tumor Extent: Extends into renal vein or its segmental branches Histologic Features: Sarcomatoid or rhabdoid features not identified Tumor Necrosis: Not identified Lymphatic and / or Vascular Invasion: Not identified MARGINS Margin Status: All margins negative for invasive carcinoma REGIONAL LYMPH NODES Regional Lymph Node Status: Not applicable (no regional lymph nodes submitted or found) pTNM CLASSIFICATION (AJCC 8th Edition) Reporting of pT, pN, and (when applicable) pM categories is based on information available to the pathologist at the time the report is issued. As per the AJCC (Chapter 1, 8th Ed.) it is the managing physician's responsibility to establish the final pathologic stage based upon all pertinent information, including but potentially not limited to this pathology report. pT Category: pT3a pN Category: pN not assigned (no nodes submitted or found) ADDITIONAL FINDINGS Additional Findings in Kidney: No significant pathologic change identified Performed By: #### 6 6121-5 #### [facility] CLIA [id number] [address] TYPE + SCREENon 04-18-2025 ABO A Normal [facility] Comment on above: Order Comment: Speci men Type: BLOOD SPECIMEN Ordering Facility: [facility] Address: [address] [place] [address] Performed By: #### T SCR #### [facility] CLIA [id number] [address] Rh Nom (Bld) Positive Normal [facility] Comment on above: Order Comment: Speci men Type: BLOOD SPECIMEN Ordering Facility: [facility] Address: [address] [place] [address] Performed By: #### T SCR #### [facility] CLIA [id number] [address] TYPE AND SCREEN EXPIRATION 04/21/2025 23:59 Normal [facility] Comment on above: Order Comment: Speci men Type: BLOOD SPECIMEN Ordering Facility: [facility] Address: [address] [place] [address] Performed By: #### T SCR #### [facility] CLIA [id number] [address] BACTERIAL CULTURE, UROLOGY P RESURGICAL SCREENING, URINEon 04-13-2025 BACTERIAL CULTURE, UROLOGY PRESURGICAL SCREENING, URINE ORGANISM ID: 1 5,000 - <10,000 CFU/ml Staphylococcus lugdunensis ORGANISM ID: 2 1,000 - <5,000 CFU/ml Staphylococcus epidermidis Normal urogenital libby ORGANISM ID: 1 (STAPHYLOCOCCUS LUGDUNENSIS) ANTIBIOTIC INTERPRETATION KAE STATUS REFERENCE RANGE Oxacillin R 0.5 F Oxacillin resistant Staphylococci are resistant to all beta-lactam antibiotics (except new cephalosporins with anti-MRSA activity i.e. ceftaroline) Vancomycin S 1 F Susceptible <=4 , Intermediate >4 , Resistant >16 Daptomycin S <=1 F Susceptible <=1 , Nonsusceptible >1 Linezolid S 1 F Susceptible <=4 , Intermediate >4 , Resistant >4 Rifampin S <=0.5 F Susceptible <=1 , Intermediate >1 , Resistant >2 Rifampin should not be used alone for antimicrobial therapy. Tetracycline R >8 F Susceptible <=4 , Intermediate >4 , Resistant >8 Nitrofurantoin S <=16 F Susceptible <=32 , Intermediate >32 , Resistant >64 ORGANISM ID: 1 (STAPHYLOCOCCUS LUGDUNENSIS) ANTIBIOTIC INTERPRETATION KAE STATUS REFERENCE RANGE Trimeth sulfameth S F Abnormal [facility] Comment on above: Performed By: #### 2 4321-2 #### [facility] CLIA [id number] [address] OF [facility] CNOVon 04-13-2025 CNOV Office Visit (UROLAE ) LINA MEADOWS ([id number]) 1960 F Date Time Provider Department 04/13/25 9:00 AM MEREDITH FELIPE During your visit today, we recorded the following information about you: Pulse Blood pressure Height 101/minute 149/91 1.6 m Meredith Felipe MD 04/13/2025 9:49 AM Signed Consultation requested by Dr. Glory Weems NP, OPTICAL EFFECTS LINE UP PERSON for an opinion regarding No chief complaint [...] mass. The patient was recently evaluated at [facility] for a glucose-related issue. During that visit, [...] son. No results found for this basename: uglucpoc,ubilipoc,uketo npoc,usgpoc,uhbpoc,uphp oc,upropoc,uuropoc,unit poc,uwbcpo- c,ucolpoc,uclarpoc No results found for: CREAT Medications/allergies reviewed [...] partial nephrectomy or ablation/radiation, based on tumor size (more content not included)... Normal [facility] XR CHEST 2V FRONTAL/LATon XR CHEST 2V FRONTAL/LAT * * *Final Repor t* * * DATE OF EXAM: Apr 13 2025 11:32AM AKX [id number] - XR CHEST 2V FRONTAL/LAT / PROCEDURE REASON: D41.02 * * * * Physician Interpretation * * * * EXAMINATION: CHEST RADIOGRAPH (2 VIEW FRONTAL and LATERAL) CLINICAL HISTORY: Preoperative kidney mass MQ: XC2_6 EXAM DATE/TIME: 04/13/2025 11:32 AM COMPARISON: No relevant prior studies available. RESULT: Lines, tubes, and devices: None. Lungs and pleura: No consolidation. No lung mass. No pleural effusion. No pneumothorax. Cardiomediastinal silhouette: Normal cardiomediastinal silhouette. Bones and soft tissues: Unremarkable. IMPRESSION: No acute radiographic abnormality. Glass Enamel Mixer: PSCB Transcribe Date/Time: Apr 15 2025 10:53P Dictated by : DIALLO EARL MD This examination was interpreted and the report reviewed and electronically signed by: DIALLO EARL MD on Apr 15 2025 10:54PM EST [id number] Normal [facility] L501.5101on 04-09-2025 GGTP 17 IU/L Normal 0-60 [facility] Comment on above: Result Comment: Perf ormed at: CB - [facility] [id number] [place], [place] [id number] Director: Juan Daley PhD, Phone: [phone] Performed By: #### L 500.2500, L501.4305, L501.5101 ####[facility] [address] [place], [address] Alkaline Phosphataseon 04-08 ALK PHOS 125 U/L High 35-104 [facility] Comment on above: Performed By: #### L 500.2500, L501.4305, L501.5101 ####[facility] [address] [place], [address] Basic Metabolic Profile (BMP )on 04-08-2025 BUN/CRE 14.7 RATIO Normal 10-20 [facility] Comment on above: Performed By: #### L 500.2500, L501.4305, L501.5101 ####[facility] [address] [place], [address] Calcium [Mass/Vol] 9.8 mg/dL Normal 7.6-11.[address] [facility] Comment on above: Performed By: #### L 500.2500, L501.4305, L501.5101 ####[facility] [address] [place], [address] Chloride [Moles/Vol] 91 mmol/L Low 98-108 [facility] Comment on above: Performed By: #### L 500.2500, L501.4305, L501.5101 ####[facility] [address] [place], [address] CO2 [Moles/Vol] 12.1 mmol/L Low 21.0-32.0 [facility] Comment on above: Performed By: #### L 500.2500, L501.4305, L501.5101 ####[facility] [address] [place], [address] Creatinine [Mass/Vol] 1.06 mg/dL Normal 0.70-1.20 [facility] Comment on above: Performed By: #### L 500.2500, L501.4305, L501.5101 ####[facility] [address] [place], [address] GAP 27 High 5-15 [facility] Comment on above: Performed By: #### L 500.2500, L501.4305, L501.5101 ####[facility] [address] [place], [address] GFR/1.73 sq M.predicted among non-blacks MDRD (S/P/Bld) [Vol rate/Area] 59 mL/min/{1.73_m2} Low >60 [facility] Comment on above: Result Comment: mL/m in/1.73m2 CKD-EPI Creatinine Equation (2020) Performed By: #### L 500.2500, L501.4305, L501.5101 ####[facility] [address] [place], [address] Glucose [Mass/Vol] 561 mg/dL Invalid Interpretation Code 70-99 [facility] Comment on above: Result Comment: Crit ical Result(s) Called at 1328: by:?? JUNE SMITH.Results read back by same. Performed By: #### L 500.2500, L501.4305, L501.5101 ####[facility] [address] [place], [address] Potassium [Moles/Vol] 4.7 mmol/L Normal 3.3-5.1 [facility] Comment on above: Performed By: #### L 500.2500, L501.4305, L501.5101 ####[facility] [address] [place], [address] Sodium [Moles/Vol] 130 mmol/L Low 133-[address] [facility] Comment on above: Performed By: #### L 500.2500, L501.4305, L501.5101 ####[facility] [address] [place], [address] Urea nitrogen [Mass/Vol] 16 mg/dL Normal 4-19 [facility] Comment on above: Performed By: #### L 500.2500, L501.4305, L501.5101 ####[facility] [address] [place], [address] CNPNon 04-08-2025 CNPN Telephone (UROLAE) LINA MEADOWS ([id number]) 1960 F Date Time Provider Department 04/08/25 MEREDITH FELIPE During your visit today, we recorded the following information about you: Sami Menjivar MA 04/08/2025 1:29 PM Signed Lab called and wanted to inform of her glucose level of 561 Ashley Romero MA 04/11/2025 9:50 AM Signed Left message with patient to contact office for abnormal results. CHIP Robledo Stephanie, RN 04/11/2025 4:28 PM Signed I called [phone] and left a message for patient to return call. I called [phone] which is listed as patients spouse Arnel Meadows. Arnel answer but stated they haven't been for 7 years and he does not have contact with patient. Patient does not have MyChart so unable to reach out to her there. JEFFRY Villagomez Mya, MA 04/12/2025 8:40 AM Signed Called pt again, no answer left a message for her to call our office mark CHIP Gregorio Mya, MA 04/12/2025 10:17 AM Signed Pt called back, said she has a call in to her PCP Has appt with Matteo tomorrow as well Araceli Hill MA Allergies As of Date: 04/08/2025 Noted Allergy Reaction LATEX 07/09/2012 2 - Rash Date Reviewed: 03/08/2025 Reviewed by: Meredith Felipe MD - Fully Assessed Reason for Visit: Results [95] Meds Comments as of 07/09/2012: No daily medications Problem List As Of Date: 04/08/2025 (None) Encounter Status:Closed by SAMI MENJIVAR on 04/08/25 Normal [facility] Abdomen/Pelvis W IV Cont ONL Yon 03-17-2025 Abdomen/Pelvis W IV Cont ONLY Normal [facility] Absolute lymphocyte countOrd ered By: Sanjiv Marcial on 03-17-2025 Lymphocytes Auto (Unsp spec) [#/Vol] 1.60 10*3/uL 0.83-4.51 [facility] Absolute neutrophil countOrd ered By: Sanjiv Marcial on 03-17-2025 Neutrophils (Bld) [#/Vol] 4.3 10*3/uL 2.0-7.7 [facility] Anion gap in Serum or Plasma Ordered By: Sanjiv Marcial on 03-17-2025 Anion gap [Moles/Vol] 13 mmol/L 5-15 [facility] Automated lymphocyte count a s percentage of total leukocytesOrdered By: Sanjiv Marcial on 03-17-2025 Lymphocytes/100 WBC Auto (Unsp spec) 24.5 % 19-41 [facility] BUN/creatinine ratioOrdered By: Sanjiv Marcial on 03-17-2025 Urea nitrogen/Creatinine [Mass ratio] 16.3 mg/mg 10-20 [facility] Basophil percentageOrdered B y: Sanjiv Marcial on 03-17-2025 Basophils/100 WBC (Bld) 0.6 % 0-1 [facility] Bilirubin Test strip Ql (U)O rdered By: Sanjiv Marcial on 03-17-2025 Bilirubin Ql (U) Negative Negative [facility] Bilirubin, totalOrdered By: Sanjiv Marcial on 03-17-2025 Bilirubin [Mass/Vol] 0.32 mg/dL 0.00-1.30 [facility] CBC W/Diff, Automatedon 03-07 Absolute Lymph 1.60 X10 3/uL Normal 0.83-4.51 [facility] Comment on above: Performed By: #### L 501.2450, L500.4050, L100.0100 ####[facility] [address] [place], [address] Absolute Neut 4.3 X10 3/uL Normal 2.0-7.7 [facility] Comment on above: Performed By: #### L 501.2450, L500.4050, L100.0100 ####[facility] [address] [place], [address] Basophils/100 WBC (Bld) 0.6 % Normal 0-1 [facility] Comment on above: Performed By: #### L 501.2450, L500.4050, L100.0100 ####[facility] [address] [place], [address] Eosinophils/100 WBC (Bld) 1.4 % Normal 0-5 [facility] Comment on above: Performed By: #### L 501.2450, L500.4050, L100.0100 ####[facility] [address] [place], [address] Erythrocyte distribution width (RBC) [Ratio] 13.1 % Normal 11.6-14.6 [facility] Comment on above: Performed By: #### L 501.2450, L500.4050, L100.0100 ####[facility] [address] [place], [address] Hematocrit (Bld) [Volume fraction] 30.9 % Low 37-47 [facility] Comment on above: Performed By: #### L 501.2450, L500.4050, L100.0100 ####[facility] [address] [place], [address] Hemoglobin (Bld) [Mass/Vol] 10.3 g/dL Low 12.0-15.0 [facility] Comment on above: Performed By: #### L 501.2450, L500.4050, L100.0100 ####[facility] [address] [place], [address] IG% 0.300 Normal 0.0-0.9 [facility] Comment on above: Result Comment: IG% - Immature Granulocytes (promyelocytes, myelocytes andmetamyelocytes) > 1% indicates that a LEFT SHIFT is Present. Performed By: #### L 501.2450, L500.4050, L100.0100 ####[facility] [address] [place], [address] Lymphocytes/100 WBC (Bld) 24.5 % Normal 19-41 [facility] Comment on above: Performed By: #### L 501.2450, L500.4050, L100.0100 ####[facility] [address] [place], [address] MCH (RBC) [Entitic mass] 29.2 pg Normal 27.0-32.0 [facility] Comment on above: Performed By: #### L 501.2450, L500.4050, L100.0100 ####[facility] [address] [place], [address] MCHC (RBC) [Mass/Vol] 33.3 g/dL Normal 32-36 [facility] Comment on above: Performed By: #### L 501.2450, L500.4050, L100.0100 ####[facility] [address] [place], [address] MCV (RBC) [Entitic vol] 87.5 fL Normal 81-99 [facility] Comment on above: Performed By: #### L 501.2450, L500.4050, L100.0100 ####[facility] [address] [place], [address] Monocytes/100 WBC (Bld) 7.8 % Normal 0-10 [facility] Comment on above: Performed By: #### L 501.2450, L500.4050, L100.0100 ####[facility] [address] [place], [address] Neutrophils/100 WBC (Bld) 65.4 % Normal 47-70 [facility] Comment on above: Performed By: #### L 501.2450, L500.4050, L100.0100 ####[facility] [address] [place], [address] Nucleated RBC (Bld) [#/Vol] 0 10*3/uL Normal 0-5 [facility] Comment on above: Performed By: #### L 501.2450, L500.4050, L100.0100 ####[facility] [address] [place], [address] Platelet mean volume (Bld) [Entitic vol] 12.1 fL High 6.2-12.0 [facility] Comment on above: Performed By: #### L 501.2450, L500.4050, L100.0100 ####[facility] [address] [place], [address] Platelets (Bld) [#/Vol] 248 10*3/uL Normal 150-450 [facility] Comment on above: Performed By: #### L 501.2450, L500.4050, L100.0100 ####[facility] [address] [place], [address] RBC (Bld) [#/Vol] 3.53 10*6/uL Low 4.2-5.4 [facility] Comment on above: Performed By: #### L 501.2450, L500.4050, L100.0100 ####[facility] [address] [place], [address] RDW SD 41.6 fl Normal 35.1-43.9 [facility] Comment on above: Performed By: #### L 501.2450, L500.4050, L100.0100 ####[facility] [address] [place], [address] WBC (Bld) [#/Vol] 6.5 10*3/uL Normal 4.4-11.[address] [facility] Comment on above: Performed By: #### L 501.2450, L500.4050, L100.0100 ####[facility] [address] [place], [address] Carbon dioxide, total [Moles /volume] in Central venous bloodOrdered By: Sanjiv Marcial on 03-17-2025 CO2 [Moles/Vol] 22.0 mmol/L 21.0-32.0 [facility] Chloride assayOrdered By: Jose Marcial on 03-17-2025 Chloride [Moles/Vol] 99 mmol/L 98-108 [facility] Comprehensive Metabolic Prof ilon 03-17-2025 Albumin [Mass/Vol] 4.3 g/dL Normal 3.4-4.[address] [facility] Comment on above: Performed By: #### L 501.2450, L500.4050, L100.0100 ####[facility] [address] [place], [address] Albumin/Globulin [Mass ratio] 1.4 {ratio} Normal 0.9-2.4 [facility] Comment on above: Performed By: #### L 501.2450, L500.4050, L100.0100 ####[facility] [address] [place], [address] ALK PHOS 105 U/L High 35-104 [facility] Comment on above: Performed By: #### L 501.2450, L500.4050, L100.0100 ####[facility] [address] [place], [address] ALT [Catalytic activity/Vol] 8 U/L Normal <=34 [facility] Comment on above: Performed By: #### L 501.2450, L500.4050, L100.0100 ####[facility] [address] [place], [address] AST [Catalytic activity/Vol] 16 U/L Normal <=31 [facility] Comment on above: Performed By: #### L 501.2450, L500.4050, L100.0100 ####[facility] [address] [place], [address] Bilirubin [Mass/Vol] 0.32 mg/dL Normal 0.00-1.30 [facility] Comment on above: Performed By: #### L 501.2450, L500.4050, L100.0100 ####[facility] [address] [place], [address] BUN/CRE 16.3 RATIO Normal 10-20 [facility] Comment on above: Performed By: #### L 501.2450, L500.4050, L100.0100 ####[facility] [address] [place], [address] Calcium [Mass/Vol] 9.5 mg/dL Normal 7.6-11.[address] [facility] Comment on above: Performed By: #### L 501.2450, L500.4050, L100.0100 ####[facility] [address] [place], [address] Chloride [Moles/Vol] 99 mmol/L Normal 98-108 [facility] Comment on above: Performed By: #### L 501.2450, L500.4050, L100.0100 ####[facility] [address] [place], [address] CO2 [Moles/Vol] 22.0 mmol/L Normal 21.0-32.0 [facility] Comment on above: Performed By: #### L 501.2450, L500.4050, L100.0100 ####[facility] [address] [place], [address] Creatinine [Mass/Vol] 0.97 mg/dL Normal 0.70-1.20 [facility] Comment on above: Performed By: #### L 501.2450, L500.4050, L100.0100 ####[facility] [address] [place], [address] ECRCL 49.74 ml/min Low 50-250 [facility] Comment on above: Performed By: #### L 501.2450, L500.4050, L100.0100 ####[facility] [address] [place], [address] GAP 13 Normal 5-15 [facility] Comment on above: Performed By: #### L 501.2450, L500.4050, L100.0100 ####[facility] [address] [place], [address] GFR/1.73 sq M.predicted among non-blacks MDRD (S/P/Bld) [Vol rate/Area] 66 mL/min/{1.73_m2} Normal >60 [facility] Comment on above: Result Comment: mL/m in/1.73m2 CKD-EPI Creatinine Equation (2020) Performed By: #### L 501.2450, L500.4050, L100.0100 ####[facility] [address] [place], [address] Globulin (S) [Mass/Vol] 3.0 g/dL Normal 2.2-4.2 [facility] Comment on above: Performed By: #### L 501.2450, L500.4050, L100.0100 ####[facility] [address] [place], [address] Glucose [Mass/Vol] 305 mg/dL High 70-[address] [facility] Comment on above: Performed By: #### L 501.2450, L500.4050, L100.0100 ####[facility] [address] [place], [address] Potassium [Moles/Vol] 4.2 mmol/L Normal 3.3-5.1 [facility] Comment on above: Performed By: #### L 501.2450, L500.4050, L100.0100 ####[facility] [address] [place], [address] Sodium [Moles/Vol] 135 mmol/L Normal 133-[address] [facility] Comment on above: Performed By: #### L 501.2450, L500.4050, L100.0100 ####[facility] [address] [place], [address] T PROT 7.3 g/dL Normal 5.9-8.4 [facility] Comment on above: Performed By: #### L 501.2450, L500.4050, L100.0100 ####[facility] [address] [place], [address] Urea nitrogen [Mass/Vol] 16 mg/dL Normal 4-19 [facility] Comment on above: Performed By: #### L 501.2450, L500.4050, L100.0100 ####[facility] [address] [place], [address] Emergency Department Summary on 03-17-2025 Emergency Department Summary Normal [facility] Eosinophil percentageOrdered By: Sanjiv Marcial on 03-17-2025 Eosinophils/100 WBC (Bld) 1.4 % 0-5 [facility] Erythrocyte distribution wid th ratioOrdered By: Sanjiv Marcial on 03-17-2025 Erythrocyte distribution width (RBC) [Ratio] 13.1 % 11.6-14.6 [facility] Erythrocyte distribution wid th standard deviationOrdered By: Sanjiv Marcial on 03-17-2025 Erythrocyte distribution width (RBC) [Ratio] 41.6 fl 35.1-43.9 [facility] Glomerular filtration rate ( GFR) estimation/1.73 sq m using serum, plasma, or whole bOrdered By: Sanjiv Marcial on 03-17-2025 GFR/1.73 sq M.predicted among non-blacks MDRD (S/P/Bld) [Vol rate/Area] 66 mL/min/{1.73_m2} >60 [facility] Comment on above: mL/min/1.73m2 CKD-EP I Creatinine Equation (2020) Hematocrit Auto (Bld) [Volum e fraction]Ordered By: Sanjiv Marcial on 03-17-2025 Hematocrit (Bld) [Volume fraction] 30.9 % Low 37-47 [facility] Hemoglobin measurementOrdere d By: Sanjiv Marcial on 03-17-2025 Hemoglobin (Bld) [Mass/Vol] 10.3 g/dL Low 12.0-15.0 [facility] Hyaline casts LM.LPF (Urine sed) [#/Area]Ordered By: Sanjiv Marcial on 03-17-2025 Hyaline casts (Urine sed) [#/Area] 0 /[LPF] 0-5 [facility] Immature granulocytes/100 WB C Auto (Bld)Ordered By: Sanjiv Marcial on 03-17-2025 Immature granulocytes/100 WBC (Bld) 0.300 % 0.0-0.9 [facility] Comment on above: IG% - Immature Granu locytes (promyelocytes, myelocytes and metamyelocytes) > 1% indicates that a LEFT SHIFT is Present. Ketones Test strip Ql (U)Ord ered By: Sanjiv Marcial on 03-17-2025 Ketones Ql (U) Negative Negative [facility] Laboratory - Chemistry and C hemistry - challengeOrdered By: Sanjiv Marcial on 03-17-2025 AST [Catalytic activity/Vol] 16 U/L <32 [facility] Lipaseon 03-17-2025 Lipase [Catalytic activity/Vol] 28 U/L Normal 13-75 [facility] Comment on above: Result Comment: Lindy gabriel note:LIPASE revised reference range effective 22.New Lipase methodology. Expected to produce lower valuesthan the previous assay method.NEW Reference Range: 13 - 75 U/L Performed By: #### L 501.2450, L500.4050, L100.0100 ####[facility] [address] [place], [address] Lipase measurementOrdered By : Sanjiv Marcial on 03-17-2025 Lipase [Catalytic activity/Vol] 28 U/L 13-75 [facility] Comment on above: Please note:LIPASE r evised reference range effective 22. New Lipase methodology. Expected to produce lower values than the previous assay method. NEW Reference Range: 13 - 75 U/L MCV (mean corpuscular volume ) determinationOrdered By: Sanjiv Marcial on 03-17-2025 MCV (RBC) [Entitic vol] 87.5 fL 81-99 [facility] Mean corpuscular hemoglobin (MCH) determinationOrdered By: Sanjiv Marcial on 03-17-2025 MCH (RBC) [Entitic mass] 29.2 pg 27.0-32.0 [facility] Mean corpuscular hemoglobin concentration (MCHC) determinationOrdered By: Sanjiv Marcial on 03-17-2025 MCHC (RBC) [Mass/Vol] 33.3 g/dL 32-36 [facility] Mean platelet volume determi nationOrdered By: Sanjiv Marcial on 03-17-2025 Platelet mean volume (Bld) [Entitic vol] 12.1 fL High 6.2-12.0 [facility] Microscopic analysis of urin e for red blood cells (RBC)Ordered By: Sanjiv Marcial on 03-17-2025 Microscopic analysis of urine for red blood cells (RBC) 0 SEEN /hpf 0-5 [facility] Monocyte percentageOrdered B y: Sanjiv Marcial on 03-17-2025 Monocytes/100 WBC (Bld) 7.8 % 0-10 [facility] Mucus LM Ql (Urine sed)Order ed By: Sanjiv Marcial on 03-17-2025 Mucus Ql (Urine sed) 0 SEEN /hpf [facility] Neutrophil percentageOrdered By: Sanjiv Marcial on 03-17-2025 Neutrophils/100 WBC (Bld) 65.4 % 47-70 [facility] Nitrite Test strip Ql (U)Ord ered By: Sanjiv Marcial on 03-17-2025 Nitrite Ql (U) Negative Negative [facility] Nucleated red blood cell per centageOrdered By: Sanjiv Marcial on 03-17-2025 Nucleated RBC/100 WBC (Bld) [Ratio] 0 % 0-5 [facility] Platelet countOrdered By: Jose Marcial on 03-17-2025 Platelets (Bld) [#/Vol] 248 10*3/uL 150-450 [facility] Potassium measurement (mass/ volume)Ordered By: Sanjiv Marcial on 03-17-2025 Potassium (Unsp spec) [Mass/Vol] 4.2 mmol/L 3.3-5.1 [facility] Protein Test strip Ql (U)Ord ered By: Sanjiv Marcial on 03-17-2025 Protein Ql (U) 30 mg/dl High Negative [facility] RBC Auto (Bld) [#/Vol]Ordere d By: Sanjiv Marcial on 03-17-2025 RBC (Bld) [#/Vol] 3.53 10*6/uL Low 4.2-5.4 [facility] Serum creatinine measurement (mass/volume)Ordered By: Sanjiv Marcial on 03-17-2025 Creatinine [Mass/Vol] 0.97 mg/dL 0.70-1.20 [facility] Serum globulin measurementOr dered By: Sanjiv Marcial on 03-17-2025 Globulin (S) [Mass/Vol] 3.0 g/dL 2.2-4.2 [facility] Serum glucose measurement (m ass/volume)Ordered By: Sanjiv Marcial on 03-17-2025 Glucose [Mass/Vol] 305 mg/dL High 70-[address] [facility] Serum or plasma alanine hargrove otransferase (ALT) measurementOrdered By: Sanjiv Marcial on 03-17-2025 ALT [Catalytic activity/Vol] 8 U/L <35 [facility] Serum or plasma albumin nj urement (mass/volume)Ordered By: Sanjiv Marcial on 03-17-2025 Albumin [Mass/Vol] 4.3 g/dL 3.4-4.[address] [facility] Serum or plasma albumin/glob ulin mass ratioOrdered By: Sanjiv Marcial on 03-17-2025 Albumin/Globulin [Mass ratio] 1.4 {ratio} 0.9-2.4 [facility] Serum or plasma alkaline regis sphatase measurementOrdered By: Sanjiv Marcial on 03-17-2025 ALP [Catalytic activity/Vol] 105 U/L High 35-104 [facility] Serum or plasma calcium jn urement (mass/volume)Ordered By: Sanjiv Marcial on 03-17-2025 Calcium [Mass/Vol] 9.5 mg/dL 7.6-11.[address] [facility] Serum or plasma urea nitroge n measurement (mass/volume)Ordered By: Sanjiv Marcial on 03-17-2025 Urea nitrogen [Mass/Vol] 16 mg/dL 4-19 [facility] Sodium levelOrdered By: Sanjiv Marcial on 03-17-2025 Sodium [Moles/Vol] 135 mmol/L 133-[address] [facility] Squamous epithelial cells de tection in urine sediment by light microscopyOrdered By: Sanjiv Marcial on 03-17-2025 Epithelial cells.squamous LM Ql (Urine sed) 0-5 SEEN /hpf 5-10 [facility] Total proteinOrdered By: Stephie Marcial on 03-17-2025 Protein [Mass/Vol] 7.3 g/dL 5.9-8.[address] [facility] Urinalysis, Completeon 03-17 CAST,HYALINE 0-5 SEEN Normal 0-5 [facility] Comment on above: Order Comment: CLEAN CATCH Performed By: #### L 400.0001 ####[facility] [address] [place], [address] EPI,SQUAMOUS 0-5 SEEN Normal 5-10 [facility] Comment on above: Order Comment: CLEAN CATCH Performed By: #### L 400.0001 ####[facility] [address] [place], [address] WBC 0-5 SEEN Normal 0-5 [facility] Comment on above: Order Comment: CLEAN CATCH Performed By: #### L 400.0001 ####[facility] [address] [place], [address] BACTERIA 0 SEEN Normal None Seen [facility] Comment on above: Order Comment: CLEAN CATCH Performed By: #### L 400.0001 ####[facility] [address] [place], [address] Mucus Ql (Urine sed) 0 SEEN Normal [facility] Comment on above: Order Comment: CLEAN CATCH Performed By: #### L 400.0001 ####[facility] [address] [place], [address] RBC 0 SEEN Normal 0-5 [facility] Comment on above: Order Comment: CLEAN CATCH Performed By: #### L 400.0001 ####[facility] [address] [place], [address] Urine clarityOrdered By: Stephie Marcial on 03-17-2025 Clarity (U) Clear Clear [facility] Urine color determinationOrd ered By: aSnjiv Marcial on 03-17-2025 Color (U) Yellow Yellow [facility] Urine glucose detectionOrder ed By: Sanjiv Marcial on 03-17-2025 Glucose Ql (U) 100 mg/dl High Normal [facility] Urine leukocyte esterase det ection by dipstickOrdered By: Sanjiv Marcial on 03-17-2025 Leukocyte esterase Test strip Ql (U) 25 /ul High Negative [facility] Urine pHOrdered By: Sanjiv aragon on 03-17-2025 pH (U) 6.0 [pH] 5.0 - 8.0 [facility] Urine sediment bacteria coun t by microscopy (number/high power field)Ordered By: Sanjiv Marcial on 03-17-2025 Bacteria LM.HPF (Urine sed) [#/Area] 0 /[HPF] None Seen [facility] Urine specific gravity measu rementOrdered By: Sanjiv Marcial on 03-17-2025 Specific gravity (U) [Rel density] 1.010 1.002-1.030 [facility] Urine urobilinogen measureme ntOrdered By: Sanjiv Marcial on 03-17-2025 Urobilinogen Ql (U) Normal mg/dl Normal [facility] White blood cell (WBC) count Ordered By: Sanjiv Marcial on 03-17-2025 WBC (Bld) [#/Vol] 6.5 10*3/uL 4.4-11.0 [facility] White blood cell countOrdere d By: Sanjiv Marcial on 03-17-2025 White blood cell count 0-5 SEEN /hpf 0-5 [facility] CNCOon 03-15-2025 CNCO Letter Text Normal [facility] Urine Cultureon 03-06-2025 URC Normal [facility] Comment on above: Performed By: #### M 100.2200 ####[facility] [address] [place], [address] Absolute lymphocyte countOrd ered By: Sanjiv Marcial on 03-04-2025 Lymphocytes Auto (Unsp spec) [#/Vol] 1.70 10*3/uL 0.83-4.51 [facility] Absolute neutrophil countOrd ered By: Sanjiv Marcial on 03-04-2025 Neutrophils (Bld) [#/Vol] 2.4 10*3/uL 2.0-7.7 [facility] Anion gap in Serum or Plasma Ordered By: Sanjiv Marcial on 03-04-2025 Anion gap [Moles/Vol] 14 mmol/L 5-15 [facility] Automated lymphocyte count a s percentage of total leukocytesOrdered By: Sanjiv Marcial on 03-04-2025 Lymphocytes/100 WBC Auto (Unsp spec) 36.6 % - [facility] BUN/creatinine ratioOrdered By: Sanjiv Marcial on 03-04-2025 Urea nitrogen/Creatinine [Mass ratio] 13.9 mg/mg 10- [facility] Basic Metabolic Profile (BMP )on 03-04-2025 BUN/CRE 13.9 RATIO Normal - [facility] Comment on above: Performed By: #### L 100.0100, L503.6005, L501.6901, L500.2500 ####[facility] [address] [place], [address] Calcium [Mass/Vol] 9.3 mg/dL Normal 7.6-11.[address] [facility] Comment on above: Performed By: #### L 100.0100, L503.6005, L501.6901, L500.2500 ####[facility] [address] [place], [address] Chloride [Moles/Vol] 98 mmol/L Normal 98-108 [facility] Comment on above: Performed By: #### L 100.0100, L503.6005, L501.6901, L500.2500 ####[facility] [address] [place], [address] CO2 [Moles/Vol] 20.5 mmol/L Low 21.0-32.0 [facility] Comment on above: Performed By: #### L 100.0100, L503.6005, L501.6901, L500.2500 ####[facility] [address] [place], [address] Creatinine [Mass/Vol] 0.94 mg/dL Normal 0.70-1.20 [facility] Comment on above: Performed By: #### L 100.0100, L503.6005, L501.6901, L500.2500 ####[facility] [address] [place], [address] ECRCL 51.33 ml/min Normal 50-250 [facility] Comment on above: Performed By: #### L 100.0100, L503.6005, L501.6901, L500.2500 ####[facility] [address] [place], [address] GAP 14 Normal 5-15 [facility] Comment on above: Performed By: #### L 100.0100, L503.6005, L501.6901, L500.2500 ####[facility] [address] [place], [address] GFR/1.73 sq M.predicted among non-blacks MDRD (S/P/Bld) [Vol rate/Area] 68 mL/min/{1.73_m2} Normal >60 [facility] Comment on above: Result Comment: mL/m in/1.73m2 CKD-EPI Creatinine Equation (2020) Performed By: #### L 100.0100, L503.6005, L501.6901, L500.2500 ####[facility] [address] [place], [address] Glucose [Mass/Vol] 572 mg/dL Invalid Interpretation Code 70-99 [facility] Comment on above: Result Comment: Crit ical Result(s) Called at: by:??[facility]Critical Result(s) Called ETEAL at: 2033 by:REGINALD??Results read back by same. Performed By: #### L 100.0100, L503.6005, L501.6901, L500.2500 ####[facility] [address] [place], [address] Potassium [Moles/Vol] 3.9 mmol/L Normal 3.3-5.1 [facility] Comment on above: Result Comment: Hemo lysis present, Results??could be affected.?? Performed By: #### L 100.0100, L503.6005, L501.6901, L500.2500 ####[facility] [address] [place], [address] Sodium [Moles/Vol] 133 mmol/L Normal 133-[address] [facility] Comment on above: Performed By: #### L 100.0100, L503.6005, L501.6901, L500.2500 ####[facility] [address] [place], [address] Urea nitrogen [Mass/Vol] 13 mg/dL Normal 4-19 [facility] Comment on above: Performed By: #### L 100.0100, L503.6005, L501.6901, L500.2500 ####[facility] [address] [place], [address] Basophil percentageOrdered B y: Sanjiv Marcial on 03-04-2025 Basophils/100 WBC (Bld) 0.4 % 0-1 [facility] Bedside Glucoseon 03-04-2025 FINGERSTICK GLU 142 mg/dL High 74-106 [facility] Comment on above: Result Comment: MARIA D GEMENT OF PATIENT CARE PER NURSING PROTOCOL Performed By: #### L 501.080 ####[facility] [address] [place], [address] FINGERSTICK GLU > 500 Invalid Interpretation Code 74-106 [facility] Comment on above: Result Comment: Dr Lois cooney FollowedMANAGEMENT OF PATIENT CARE PER NURSING PROTOCOL Performed By: #### L 501.080 ####[facility] [address] [place], [address] Beta-Hydroxbytyrateon 2024 BETA-HYDROXYBUT 0.5 mmol/L High 0.0-0.3 [facility] Comment on above: Performed By: #### L 100.0100, L503.6005, L501.6901, L500.2500 ####[facility] [address] [place], [address] Beta-hydroxybutyrateOrdered By: Sanjiv Marcial on 03-04-2025 Beta hydroxybutyrate [Mass/Vol] 0.5 mmol/L High 0.0-0.3 [facility] Bilirubin Test strip Ql (U)O rdered By: Sanjiv Marcial on 03-04-2025 Bilirubin Ql (U) Negative Negative [facility] Blood manual differential co mment interpretation (narrative result)Ordered By: Sanjiv Marcial on 03-04-2025 Manual differential comment Bc (Bld) [Interp] SCANNED [facility] CBC W/Diff, Automatedon 02-05 PLT EST ADEQUATE Normal ADEQ [facility] Comment on above: Performed By: #### L 100.0100, L503.6005, L501.6901, L500.2500 ####[facility] [address] [place], [address] SMEAR COMMENT SCANNED Normal [facility] Comment on above: Performed By: #### L 100.0100, L503.6005, L501.6901, L500.2500 ####[facility] [address] [place], [address] CO2 (BldV) [Moles/Vol]Ordere d By: Sanjiv Marcial on 03-04-2025 CO2 [Moles/Vol] 25 mmol/L 23-33 [facility] Carbon dioxide, total [Moles /volume] in Central venous bloodOrdered By: Sanjiv Marcial on 03-04-2025 CO2 [Moles/Vol] 20.5 mmol/L Low 21.0-32.0 [facility] Chloride assayOrdered By: Jose Marcial on 03-04-2025 Chloride [Moles/Vol] 98 mmol/L 98-108 [facility] Emergency Department Summary on 03-04-2025 Emergency Department Summary Normal [facility] Eosinophil percentageOrdered By: Sanjiv Marcial on 03-04-2025 Eosinophils/100 WBC (Bld) 1.5 % 0-5 [facility] Erythrocyte distribution wid th ratioOrdered By: Sanjiv Marcial on 03-04-2025 Erythrocyte distribution width (RBC) [Ratio] 13.1 % 11.6-14.6 [facility] Erythrocyte distribution wid th standard deviationOrdered By: Sanjiv Marcial on 03-04-2025 Erythrocyte distribution width (RBC) [Ratio] 43.4 fl 35.1-43.9 [facility] Glomerular filtration rate ( GFR) estimation/1.73 sq m using serum, plasma, or whole bOrdered By: Sanjiv Marcial on 03-04-2025 GFR/1.73 sq M.predicted among non-blacks MDRD (S/P/Bld) [Vol rate/Area] 68 mL/min/{1.73_m2} >60 [facility] Comment on above: mL/min/1.73m2 CKD-EP I Creatinine Equation (2020) [facility] deOrdered By: Sanjiv Marcial on 03-04-2025 Glucose [Mass/Vol] 142 mg/dL High 74-[address] [facility] Comment on above: MANAGEMENT OF PATIEN T CARE PER NURSING PROTOCOL Hematocrit Auto (Bld) [Volum e fraction]Ordered By: Sanjiv Marcial on 03-04-2025 Hematocrit (Bld) [Volume fraction] 29.9 % Low 37-47 [facility] Hemoglobin measurementOrdere d By: Sanjiv Marcial on 03-04-2025 Hemoglobin (Bld) [Mass/Vol] 9.7 g/dL Low 12.0-15.0 [facility] Immature granulocytes/100 WB C Auto (Bld)Ordered By: Sanjiv Marcial on 03-04-2025 Immature granulocytes/100 WBC (Bld) 0.000 % 0.0-0.9 [facility] Comment on above: IG% - Immature Granu locytes (promyelocytes, myelocytes and metamyelocytes) > 1% indicates that a LEFT SHIFT is Present. Ketones Test strip Ql (U)Ord ered By: Sanjiv Marcial on 03-04-2025 Ketones Ql (U) 5 mg/dl High Negative [facility] Lactic Acidon 03-04-2025 Lactate [Moles/Vol] 1.0 mmol/L Normal 0.0-2.0 [facility] Comment on above: Order Comment: Y Performed By: #### L 100.0100, L503.6005, L501.6901, L500.2500 ####[facility] [address] [place], [address] Lactic acid measurementOrder ed By: Sanjiv Marcial on 03-04-2025 Lactate [Moles/Vol] 1.0 mmol/L 0.0-2.0 [facility] MCV (mean corpuscular volume ) determinationOrdered By: Sanjiv Marcial on 03-04-2025 MCV (RBC) [Entitic vol] 90.6 fL 81-99 [facility] Mean corpuscular hemoglobin (MCH) determinationOrdered By: Sanjiv Marcial on 03-04-2025 MCH (RBC) [Entitic mass] 29.4 pg 27.0-32.0 [facility] Mean corpuscular hemoglobin concentration (MCHC) determinationOrdered By: Sanjiv Marcial on 03-04-2025 MCHC (RBC) [Mass/Vol] 32.4 g/dL 32-36 [facility] Mean platelet volume determi nationOrdered By: Sanjiv Marcial on 03-04-2025 Mean platelet volume determination [facility] Comment on above: Test not performed Microscopic analysis of urin e for red blood cells (RBC)Ordered By: Sanjiv Marcial on 03-04-2025 Microscopic analysis of urine for red blood cells (RBC) 0 SEEN /hpf 0-5 [facility] Monocyte percentageOrdered B y: Sanjiv Marcial on 03-04-2025 Monocytes/100 WBC (Bld) 9.7 % 0-10 [facility] Mucus LM Ql (Urine sed)Order ed By: Sanjiv Marcial on 03-04-2025 Mucus Ql (Urine sed) 0 SEEN /hpf [facility] Neutrophil percentageOrdered By: Sanjiv Marcial on 03-04-2025 Neutrophils/100 WBC (Bld) 51.8 % 47-70 [facility] Nitrite Test strip Ql (U)Ord ered By: Sanjiv Marcial on 03-04-2025 Nitrite Ql (U) Negative Negative [facility] No Panel InformationOrdered By: Sanjiv Marcial on 03-04-2025 Blood Gas Sample Site Not entered [facility] Blood Gas Specimen Type LIZY [facility] Oxygen Delivery Device Room Air [facility] Nucleated red blood cell per centageOrdered By: Sanjiv Marcial on 03-04-2025 Nucleated RBC/100 WBC (Bld) [Ratio] 0 % 0-5 [facility] Platelet countOrdered By: Jose Marcial on 03-04-2025 Platelet count TNP [facility] Comment on above: Test not performedPl ease note: For this sample, a platelet estimate is provided rather than a platelet count due to platelet clumping. Other parameters associated with this sample are not affected by platelet clumping. If a more accurate platelet count is required, a redraw of the patient will be necessary. Platelet estimateOrdered By: Sanjiv Marcial on 03-04-2025 Platelets LM Ql (Bld) ADEQUATE ADEQ [facility] Potassium measurement (mass/ volume)Ordered By: Sanjiv Marcial on 03-04-2025 Potassium (Unsp spec) [Mass/Vol] 3.9 mmol/L 3.3-5.1 [facility] Comment on above: Hemolysis present, R esults could be affected. Protein Test strip Ql (U)Ord ered By: Sanjiv Marcial on 03-04-2025 Protein Ql (U) Negative Negative [facility] RBC Auto (Bld) [#/Vol]Ordere d By: Sanjiv Marcial on 03-04-2025 RBC (Bld) [#/Vol] 3.30 10*6/uL Low 4.2-5.4 [facility] Serum creatinine measurement (mass/volume)Ordered By: Sanjiv Marcial on 03-04-2025 Creatinine [Mass/Vol] 0.94 mg/dL 0.70-1.20 [facility] Serum glucose measurement (m ass/volume)Ordered By: Sanjiv Marcial on 03-04-2025 Glucose [Mass/Vol] 572 mg/dL High 70-[address] [facility] Comment on above: Critical Result(s) C alled at: by: Results read back by same.Critical Result(s) Called ETEAL at: 2033 by: REGINALD Results read back by same. Serum or plasma calcium jn urement (mass/volume)Ordered By: Sanjiv Marcial on 03-04-2025 Calcium [Mass/Vol] 9.3 mg/dL 7.6-11.[address] [facility] Serum or plasma urea nitroge n measurement (mass/volume)Ordered By: aSnjiv Marcial on 03-04-2025 Urea nitrogen [Mass/Vol] 13 mg/dL 4-19 [facility] Sodium levelOrdered By: Sanjiv Marcial on 03-04-2025 Sodium [Moles/Vol] 133 mmol/L 133-[address] [facility] Squamous epithelial cells de tection in urine sediment by light microscopyOrdered By: Sanjiv Marcial on 03-04-2025 Epithelial cells.squamous LM Ql (Urine sed) 0-5 SEEN /hpf 5-10 [facility] Urinalysis, Completeon 03-04 EPI,SQUAMOUS 0-5 SEEN Normal 5-10 [facility] Comment on above: Order Comment: CLEAN CATCH Performed By: #### L 400.0001 ####[facility] [address] [place], [address] WBC 0-5 SEEN Normal 0-5 [facility] Comment on above: Order Comment: CLEAN CATCH Performed By: #### L 400.0001 ####[facility] [address] [place], [address] BACTERIA 0 SEEN Normal None Seen [facility] Comment on above: Order Comment: CLEAN CATCH Performed By: #### L 400.0001 ####[facility] [address] [place], [address] Mucus Ql (Urine sed) 0 SEEN Normal [facility] Comment on above: Order Comment: CLEAN CATCH Performed By: #### L 400.0001 ####[facility] [address] [place], [address] RBC 0 SEEN Normal 0-5 [facility] Comment on above: Order Comment: CLEAN CATCH Performed By: #### L 400.0001 ####[facility] [address] [place], [address] Urine clarityOrdered By: Stephie Marcial on 03-04-2025 Clarity (U) Clear Clear [facility] Urine color determinationOrd ered By: Sanjiv Marcial on 03-04-2025 Color (U) Straw Yellow [facility] Urine glucose detectionOrder ed By: Sanjiv Marcial on 03-04-2025 Glucose Ql (U) 1000 mg/dl High Normal [facility] Urine leukocyte esterase det ection by dipstickOrdered By: Sanjiv Marcial on 03-04-2025 Leukocyte esterase Test strip Ql (U) Negative Negative [facility] Urine pHOrdered By: Sanjiv aragon on 03-04-2025 pH (U) 6.5 [pH] 5.0 - 8.0 [facility] Urine sediment bacteria coun t by microscopy (number/high power field)Ordered By: Sanjiv Marcial on 03-04-2025 Bacteria LM.HPF (Urine sed) [#/Area] 0 /[HPF] None Seen [facility] Urine specific gravity measu rementOrdered By: Sanjiv Marcial on 03-04-2025 Specific gravity (U) [Rel density] 1.010 1.002-1.030 [facility] Urine urobilinogen measureme ntOrdered By: Sanjiv Marcial on 03-04-2025 Urobilinogen Ql (U) Normal mg/dl Normal [facility] Venous Blood Gason Blood Gas Type LIZY Normal [facility] Comment on above: Performed By: #### L 900.0810 ####[facility] [address] [place], [address] CO2 [Moles/Vol] 25 mmol/L Normal 23-33 [facility] Comment on above: Performed By: #### L 8999.0810 ####[facility] [address] [place], [address] HCO3 (Bld) [Moles/Vol] 24 mmol/L Normal 22-26 [facility] Comment on above: Performed By: #### L 900.0810 ####[facility] [address] [place], [address] O2 Delivery Dev Room Air Normal [facility] Comment on above: Performed By: #### L 8999.0810 ####[facility] [address] [place], [address] SITE Not entered Normal [facility] Comment on above: Performed By: #### L 8999.0810 ####[facility] [address] [place], [address] VBG BE 0 mmol/L Normal -1.0-3.5 [facility] Comment on above: Performed By: #### L 9000.0810 ####[facility] [address] [place], [address] VBG pCO2 35.7 mmHg Low 41-51 [facility] Comment on above: Performed By: #### L 9000.0810 ####[facility] [address] [place], [address] VBG pH 7.44 High 7.32-7.42 [facility] Comment on above: Performed By: #### L 9000.0810 ####[facility] [address] [place], [address] VBG PO2 28 mmHg Normal 25-40 [facility] Comment on above: Performed By: #### L 9000.0810 ####[facility] [address] [place], [address] VBG SO2 55 Normal 50-70 [facility] Comment on above: Performed By: #### L 9000.0810 ####[facility] [address] [place], [address] Venous blood base excess tristan surementOrdered By: Sanjiv Marcial on 03-04-2025 Base excess Calc (BldV) [Moles/Vol] 0 mmol/L -1.0-3.5 [facility] Venous blood bicarbonate tristan surementOrdered By: Sanjiv Marcial on 03-04-2025 HCO3 (Bld) [Moles/Vol] 24 mmol/L 22-26 [facility] Venous blood oxygen saturati on measurementOrdered By: Sanjiv Marcial on 03-04-2025 Oxygen saturation in Blood 55 % 50-70 [facility] Venous blood pH measurementO rdered By: Sanjiv Marcial on 03-04-2025 pH (BldV) 7.44 [pH] High 7.32-7.42 [facility] Venous blood partial pressur e of carbon dioxide measurementOrdered By: Sanjiv Marcial on 03-04-2025 CO2 (BldV) [Partial pressure] 35.7 mm[Hg] Low 41-51 [facility] Venous blood partial pressur e of oxygen measurementOrdered By: Sanjiv Marcial on 03-04-2025 Oxygen (BldV) [Partial pressure] 28 mm[Hg] 25-40 [facility] White blood cell (WBC) count Ordered By: Sanjiv Marcial on 03-04-2025 WBC (Bld) [#/Vol] 4.6 10*3/uL 4.4-11.[address] 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 Note: Pt is to drop off disk with imaging from 12/08/24. CXR AND labs may be required after Dr. Felipe reviews. Daysi Giron 03/02/2025 2:25 PM Signed Left message for patient to call mark. Daysi Giron 03/08/2025 1:29 PM Signed Left message for patient to call mark. I tried her emergency contact Arnel (spouse). He answered stating that he has not been to her in years AND has no updated information on her. Note: I will confirm if she wants him removed after I speak with her. Daysi Giron 03/10/2025 2:32 PM Signed Left message for patient to call. Daysi Giron 03/15/2025 10:08 AM Signed CASE CANCELLED 03/21/25: Unable to reach patient to confirm surgery details. Left message for patient to call (4th attempt). Unable to reach patient letter mailed as she does not have mychart, email, or any reliable emergency contacts. Daysi Giron 03/15/2025 2:01 PM Signed I don't think there is much they can do if she isn't answering or returning phone calls. The next step would be to send a letter which I did. I'll try reaching out again in a week or so. Daysi Giron 03/23/2025 2:45 PM Addendum CASE RESCHEDULED: Pt called back to arranged AND also scheduled appt on 03/24/25 to drop off CD with imaging. 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 Note: Pt called AND rescheduled follow up appt to 04/10/25. I left message offering sooner, she is to call back to confirm it is convenient. Daysi Giron 03/24/2025 2:14 PM Signed Left message for patient to call. Note: Appt w/ Dr. Felipe rescheduled to 04/13/25. I also offered sooner options. Daysi Giron 03/28/2025 3:25 PM Addendum I called and spoke with patient. She confirmed date, times, and location. Prep instructions verbalized - bowel prep. Surgery information packet mailed. Note: Follow up was rescheduled to 04/13/25. I offered sooner options but she declined due to work and says she already has transportation arranged. I stressed the importance of her bringing her CD's with imaging for Dr. Wegryn to review, she verbalized understanding (FYI). Allergies As of Date: 03/02/2025 Noted Allergy Reaction LATEX 07/09/2012 2 - Rash Date Reviewed: 07/09/2012 Reviewed by: Corwin Mojica - Fully Assessed Reason for Visit: Surgery Scheduled [Other] Meds Comments as of 07/09/2012: No daily medications Problem List As Of Date: 03/02/2025 (None) Encounter Status:Closed by DAYSI GIRON on 03/02/25 Normal [facility] Absolute lymphocyte countOrd ered By: ED PROVIDER on 02-25-2025 Lymphocytes Auto (Unsp spec) [#/Vol] 2.67 10*3/uL 0.83-4.51 [facility] Absolute neutrophil countOrd ered By: ED PROVIDER on 02-25-2025 Neutrophils (Bld) [#/Vol] 3.4 10*3/uL 2.0-7.7 [facility] Anion gap in Serum or Plasma Ordered By: Zane Gallardo on 02-25-2025 Anion gap [Moles/Vol] 14 mmol/L 5-15 [facility] Automated lymphocyte count a s percentage of total leukocytesOrdered By: ED PROVIDER on 02-25-2025 Lymphocytes/100 WBC Auto (Unsp spec) 38.9 % -41 [facility] BUN/creatinine ratioOrdered By: Zane Gallardo on 02-25-2025 Urea nitrogen/Creatinine [Mass ratio] 18.4 mg/mg 10-20 [facility] Basophil percentageOrdered B y: ED PROVIDER on 02-25-2025 Basophils/100 WBC (Bld) 0.4 % 0-1 [facility] Bilirubin Test strip Ql (U)O rdered By: Zane Gallardo on 02-25-2025 Bilirubin Ql (U) Negative Negative [facility] Bilirubin, totalOrdered By: Zane Gallardo on 02-25-2025 Bilirubin [Mass/Vol] 0.27 mg/dL 0.00-1.30 [facility] CBC W/Diff, Automatedon 02-05 Absolute Lymph 2.67 X10 3/uL Normal 0.83-4.51 [facility] [facility] Comment on above: Performed By: #### L 500.4050, L100.0100 ####[facility] [address] [place], [address] Absolute Neut 3.4 X10 3/uL Normal 2.0-7.7 [facility] Comment on above: Performed By: #### L 500.4050, L100.0100 ####[facility] [address] [place], [address] Basophils/100 WBC (Bld) 0.4 % Normal 0-1 [facility] Comment on above: Performed By: #### L 500.4050, L100.0100 ####[facility] [address] [place], [address] Eosinophils/100 WBC (Bld) 2.9 % Normal 0-5 [facility] Comment on above: Performed By: #### L 500.4050, L100.0100 ####[facility] [address] [place], [address] Erythrocyte distribution width (RBC) [Ratio] 13.6 % Normal 11.6-14.6 [facility] Comment on above: Performed By: #### L 500.4050, L100.0100 ####[facility] [address] [place], [address] Hematocrit (Bld) [Volume fraction] 28.0 % Low 37-47 [facility] Comment on above: Performed By: #### L 500.4050, L100.0100 ####[facility] [address] [place], [address] Hemoglobin (Bld) [Mass/Vol] 9.5 g/dL Low 12.0-15.0 [facility] Comment on above: Performed By: #### L 500.4050, L100.0100 ####[facility] [address] [place], [address] IG% 0.300 Normal 0.0-0.9 [facility] Comment on above: Result Comment: IG% - Immature Granulocytes (promyelocytes, myelocytes andmetamyelocytes) > 1% indicates that a LEFT SHIFT is Present. Performed By: #### L 500.4050, L100.0100 ####[facility] [address] [place], [address] Lymphocytes/100 WBC (Bld) 38.9 % Normal 19-41 [facility] Comment on above: Performed By: #### L 500.4050, L100.0100 ####[facility] [address] [place], [address] MCH (RBC) [Entitic mass] 30.0 pg Normal 27.0-32.0 [facility] Comment on above: Performed By: #### L 500.4050, L100.0100 ####[facility] [address] [place], [address] MCHC (RBC) [Mass/Vol] 33.9 g/dL Normal 32-36 [facility] Comment on above: Performed By: #### L 500.4050, L100.0100 ####[facility] [address] [place], [address] MCV (RBC) [Entitic vol] 88.3 fL Normal 81-99 [facility] Comment on above: Performed By: #### L 500.4050, L100.0100 ####[facility] [address] [place], [address] Monocytes/100 WBC (Bld) 7.4 % Normal 0-10 [facility] Comment on above: Performed By: #### L 500.4050, L100.0100 ####[facility] [address] [place], [address] Neutrophils/100 WBC (Bld) 50.1 % Normal 47-70 [facility] Comment on above: Performed By: #### L 500.4050, L100.0100 ####[facility] [address] [place], [address] Nucleated RBC (Bld) [#/Vol] 0 10*3/uL Normal 0-5 [facility] Comment on above: Performed By: #### L 500.4050, L100.0100 ####[facility] [address] [place], [address] Platelet mean volume (Bld) [Entitic vol] 11.9 fL Normal 6.2-12.0 [facility] Comment on above: Performed By: #### L 500.4050, L100.0100 ####[facility] [address] [place], [address] Platelets (Bld) [#/Vol] 234 10*3/uL Normal 150-450 [facility] Comment on above: Performed By: #### L 500.4050, L100.0100 ####[facility] [address] [place], [address] RBC (Bld) [#/Vol] 3.17 10*6/uL Low 4.2-5.4 [facility] Comment on above: Performed By: #### L 500.4050, L100.0100 ####[facility] [address] [place], [address] RDW SD 44.0 fl High 35.1-43.9 [facility] Comment on above: Performed By: #### L 500.4050, L100.0100 ####[facility] [address] [place], [address] WBC (Bld) [#/Vol] 6.9 10*3/uL Normal 4.4-11.[address] [facility] Comment on above: Performed By: #### L 500.4050, L100.0100 ####[facility] [address] [place], [address] CT Chest, Abd, Pel w/Contras ton 02-25-2025 CT Chest, Abd, Pel w/Contrast Normal [facility] Carbon dioxide, total [Moles /volume] in Central venous bloodOrdered By: Zane Le on 02-25-2025 CO2 [Moles/Vol] 23.6 mmol/L 21.0-32.0 [facility] Chloride assayOrdered By: Harish Gallardo on 02-25-2025 Chloride [Moles/Vol] 102 mmol/L 98-108 [facility] Comprehensive Metabolic Prof ilon 02-25-2025 Albumin [Mass/Vol] 4.4 g/dL Normal 3.4-4.[address] [facility] Comment on above: Performed By: #### L 500.4050, L100.0100 ####[facility] [address] [place], [address] Albumin/Globulin [Mass ratio] 1.6 {ratio} Normal 0.9-2.4 [facility] Comment on above: Performed By: #### L 500.4050, L100.0100 ####[facility] [address] [place], [address] ALK PHOS 78 U/L Normal 35-104 [facility] Comment on above: Performed By: #### L 500.4050, L100.0100 ####[facility] [address] [place], [address] ALT [Catalytic activity/Vol] 18 U/L Normal <=34 [facility] Comment on above: Performed By: #### L 500.4050, L100.0100 ####[facility] [address] [place], [address] AST [Catalytic activity/Vol] 19 U/L Normal <=31 [facility] Comment on above: Performed By: #### L 500.4050, L100.0100 ####[facility] [address] [place], [address] Bilirubin [Mass/Vol] 0.27 mg/dL Normal 0.00-1.30 [facility] Comment on above: Performed By: #### L 500.4050, L100.0100 ####[facility] [address] [place], [address] BUN/CRE 18.4 RATIO Normal 10-20 [facility] Comment on above: Performed By: #### L 500.4050, L100.0100 ####[facility] [address] [place], [address] Calcium [Mass/Vol] 9.8 mg/dL Normal 7.6-11.[address] [facility] Comment on above: Performed By: #### L 500.4050, L100.0100 ####[facility] [address] [place], [address] Chloride [Moles/Vol] 102 mmol/L Normal 98-108 [facility] Comment on above: Performed By: #### L 500.4050, L100.0100 ####[facility] [address] [place], [address] CO2 [Moles/Vol] 23.6 mmol/L Normal 21.0-32.0 [facility] Comment on above: Performed By: #### L 500.4050, L100.0100 ####[facility] [address] [place], [address] Creatinine [Mass/Vol] 0.81 mg/dL Normal 0.70-1.20 [facility] Comment on above: Performed By: #### L 500.4050, L100.0100 ####[facility] [address] [place], [address] ECRCL 59.57 ml/min Normal 50-250 [facility] Comment on above: Performed By: #### L 500.4050, L100.0100 ####[facility] [address] [place], [address] GAP 14 Normal 5-15 [facility] Comment on above: Performed By: #### L 500.4050, L100.0100 ####[facility] [address] [place], [address] GFR/1.73 sq M.predicted among non-blacks MDRD (S/P/Bld) [Vol rate/Area] 82 mL/min/{1.73_m2} Normal >60 [facility] Comment on above: Result Comment: mL/m in/1.73m2 CKD-EPI Creatinine Equation (2020) Performed By: #### L 500.4050, L100.0100 ####[facility] [address] [place], [address] Globulin (S) [Mass/Vol] 2.8 g/dL Normal 2.2-4.2 [facility] Comment on above: Performed By: #### L 500.4050, L100.0100 ####[facility] [address] [place], [address] Glucose [Mass/Vol] 142 mg/dL High 70-[address] [facility] Comment on above: Performed By: #### L 500.4050, L100.0100 ####[facility] [address] [place], [address] Potassium [Moles/Vol] 3.8 mmol/L Normal 3.3-5.1 [facility] Comment on above: Performed By: #### L 500.4050, L100.0100 ####[facility] [address] [place], [address] Sodium [Moles/Vol] 139 mmol/L Normal 133-[address] [facility] Comment on above: Performed By: #### L 500.4050, L100.0100 ####[facility] [address] [place], [address] T PROT 7.1 g/dL Normal 5.9-8.4 [facility] Comment on above: Performed By: #### L 500.4050, L100.0100 ####[facility] [address] [place], [address] Urea nitrogen [Mass/Vol] 15 mg/dL Normal 4-19 [facility] Comment on above: Performed By: #### L 500.4050, L100.0100 ####[facility] [address] [place], [address] Emergency Department Summary on 02-25-2025 Emergency Department Summary Normal [facility] Eosinophil percentageOrdered By: ED PROVIDER on 02-25-2025 Eosinophils/100 WBC (Bld) 2.9 % 0-5 [facility] Erythrocyte distribution wid th ratioOrdered By: ED PROVIDER on 02-25-2025 Erythrocyte distribution width (RBC) [Ratio] 13.6 % 11.6-14.6 [facility] Erythrocyte distribution wid th standard deviationOrdered By: ED PROVIDER on 02-25-2025 Erythrocyte distribution width (RBC) [Ratio] 44.0 fl High 35.1-43.9 [facility] Glomerular filtration rate ( GFR) estimation/1.73 sq m using serum, plasma, or whole bOrdered By: Zane Gallardo on 02-25-2025 GFR/1.73 sq M.predicted among non-blacks MDRD (S/P/Bld) [Vol rate/Area] 82 mL/min/{1.73_m2} >60 [facility] Comment on above: mL/min/1.73m2 CKD-EP I Creatinine Equation (2020) Hematocrit Auto (Bld) [Volum e fraction]Ordered By: ED PROVIDER on 02-25-2025 Hematocrit (Bld) [Volume fraction] 28.0 % Low 37-47 [facility] Hemoglobin measurementOrdere d By: ED PROVIDER on 02-25-2025 Hemoglobin (Bld) [Mass/Vol] 9.5 g/dL Low 12.0-15.0 [facility] Immature granulocytes/100 WB C Auto (Bld)Ordered By: ED PROVIDER on 02-25-2025 Immature granulocytes/100 WBC (Bld) 0.300 % 0.0-0.9 [facility] Comment on above: IG% - Immature Granu locytes (promyelocytes, myelocytes and metamyelocytes) > 1% indicates that a LEFT SHIFT is Present. Ketones Test strip Ql (U)Ord ered By: Zane Gallardo on 02-25-2025 Ketones Ql (U) 5 mg/dl High Negative [facility] Laboratory - Chemistry and C hemistry - challengeOrdered By: Zane Gallardo on 02-25-2025 AST [Catalytic activity/Vol] 19 U/L <32 [facility] MCV (mean corpuscular volume ) determinationOrdered By: ED PROVIDER on 02-25-2025 MCV (RBC) [Entitic vol] 88.3 fL 81-99 [facility] Mean corpuscular hemoglobin (MCH) determinationOrdered By: ED PROVIDER on 02-25-2025 MCH (RBC) [Entitic mass] 30.0 pg 27.0-32.0 [facility] Mean corpuscular hemoglobin concentration (MCHC) determinationOrdered By: ED PROVIDER on 02-25-2025 MCHC (RBC) [Mass/Vol] 33.9 g/dL 32-36 [facility] Mean platelet volume determi nationOrdered By: ED PROVIDER on 02-25-2025 Platelet mean volume (Bld) [Entitic vol] 11.9 fL 6.2-12.0 [facility] Microscopic analysis of urin e for red blood cells (RBC)Ordered By: Zane Gallardo on 02-25-2025 Microscopic analysis of urine for red blood cells (RBC) 0-5 SEEN /hpf 0-5 [facility] Monocyte percentageOrdered B y: ED PROVIDER on 02-25-2025 Monocytes/100 WBC (Bld) 7.4 % 0-10 [facility] Mucus LM Ql (Urine sed)Order ed By: Zane Gallardo on 02-25-2025 Mucus Ql (Urine sed) 0 SEEN /hpf [facility] Neutrophil percentageOrdered By: ED PROVIDER on 02-25-2025 Neutrophils/100 WBC (Bld) 50.1 % 47-70 [facility] Nitrite Test strip Ql (U)Ord ered By: Zane Gallardo on 02-25-2025 Nitrite Ql (U) Negative Negative [facility] Nucleated red blood cell per centageOrdered By: ED PROVIDER on 02-25-2025 Nucleated RBC/100 WBC (Bld) [Ratio] 0 % 0-5 [facility] Platelet countOrdered By: ED PROVIDER on 02-25-2025 Platelets (Bld) [#/Vol] 234 10*3/uL 150-450 [facility] Potassium measurement (mass/ volume)Ordered By: Zane Gallardo on 02-25-2025 Potassium (Unsp spec) [Mass/Vol] 3.8 mmol/L 3.3-5.1 [facility] Protein Test strip Ql (U)Ord ered By: Zane Gallardo on 02-25-2025 Protein Ql (U) 30 mg/dl High Negative [facility] RBC Auto (Bld) [#/Vol]Ordere d By: ED PROVIDER on 02-25-2025 RBC (Bld) [#/Vol] 3.17 10*6/uL Low 4.2-5.4 [facility] Serum creatinine measurement (mass/volume)Ordered By: Zane Gallardo on 02-25-2025 Creatinine [Mass/Vol] 0.81 mg/dL 0.70-1.20 [facility] Serum globulin measurementOr dered By: Zane Gallardo on 02-25-2025 Globulin (S) [Mass/Vol] 2.8 g/dL 2.2-4.2 [facility] Serum glucose measurement (m ass/volume)Ordered By: Zane Gallardo on 02-25-2025 Glucose [Mass/Vol] 142 mg/dL High 70-[address] [facility] Serum or plasma alanine hargrove otransferase (ALT) measurementOrdered By: Zane Gallardo on 02-25-2025 ALT [Catalytic activity/Vol] 18 U/L <35 [facility] Serum or plasma albumin jn urement (mass/volume)Ordered By: Zane Gallardo on 02-25-2025 Albumin [Mass/Vol] 4.4 g/dL 3.4-4.[address] [facility] Serum or plasma albumin/glob ulin mass ratioOrdered By: Zane Gallardo on 02-25-2025 Albumin/Globulin [Mass ratio] 1.6 {ratio} 0.9-2.4 [facility] Serum or plasma alkaline regis sphatase measurementOrdered By: Zane Gallardo on 02-25-2025 ALP [Catalytic activity/Vol] 78 U/L 35-104 [facility] Serum or plasma calcium jn urement (mass/volume)Ordered By: Zane Gallardo on 02-25-2025 Calcium [Mass/Vol] 9.8 mg/dL 7.6-11.[address] [facility] Serum or plasma urea nitroge n measurement (mass/volume)Ordered By: Zane Gallardo on 02-25-2025 Urea nitrogen [Mass/Vol] 15 mg/dL 4-19 [facility] Sodium levelOrdered By: Zane Gallardo on 02-25-2025 Sodium [Moles/Vol] 139 mmol/L 133-[address] [facility] Squamous epithelial cells de tection in urine sediment by light microscopyOrdered By: Zane Gallardo on 02-25-2025 Epithelial cells.squamous LM Ql (Urine sed) 0-5 SEEN /hpf 5-10 [facility] Total proteinOrdered By: Jose Cruz Gallardo on 02-25-2025 Protein [Mass/Vol] 7.1 g/dL 5.9-8.[address] [facility] Urinalysis, Completeon 02-25 EPI,SQUAMOUS 0-5 SEEN Normal 5-10 [facility] Comment on above: Order Comment: CLEAN CATCH Performed By: #### L 400.0001 ####[facility] [address] [place], [address] RBC 0-5 SEEN Normal 0-5 [facility] Comment on above: Order Comment: CLEAN CATCH Performed By: #### L 400.0001 ####[facility] [address] [place], [address] WBC 10-25 SEEN Normal 0-5 [facility] Comment on above: Order Comment: CLEAN CATCH Performed By: #### L 400.0001 ####[facility] [address] [place], [address] BACTERIA 1+ /hpf Normal None Seen [facility] Comment on above: Order Comment: CLEAN CATCH Performed By: #### L 400.0001 ####[facility] [address] [place], [place], [id number] Mucus Ql (Urine sed) 0 SEEN Normal [facility] Comment on above: Order Comment: CLEAN CATCH Performed By: #### L 400.0001 ####[facility] [address] [place], [place], [id number] Urine clarityOrdered By: Jose Cruz Gallardo on 02-25-2025 Clarity (U) Sl Cldy Clear [facility] Urine color determinationOrd ered By: Zane Gallardo on 02-25-2025 Color (U) Yellow Yellow [facility] Urine cultureOrdered By: Jose Cruz Gallardo on 02-25-2025 Bacteria identified Cx Nom (U) Corynebact. pseudodiphtheritic Abnormal [facility] Bacteria identified Cx Nom (U) Positive Abnormal [facility] Urine glucose detectionOrder ed By: Zane Gallardo on 02-25-2025 Glucose Ql (U) Normal mg/dl Normal [facility] Urine leukocyte esterase det ection by dipstickOrdered By: Zane Gallardo on 02-25-2025 Leukocyte esterase Test strip Ql (U) 100 /ul High Negative [facility] Urine pHOrdered By: Zane Gallardo on 02-25-2025 pH (U) 8.0 [pH] 5.0 - 8.0 [facility] Urine sediment bacteria coun t by microscopy (number/high power field)Ordered By: Zane Gallardo on 02-25-2025 Bacteria LM.HPF (Urine sed) [#/Area] 1 /[HPF] None Seen [facility] Urine specific gravity measu rementOrdered By: Zane Gallardo on 02-25-2025 Specific gravity (U) [Rel density] 1.010 1.002-1.030 [facility] Urine urobilinogen measureme ntOrdered By: Zane Gallardo on 02-25-2025 Urobilinogen Ql (U) Normal mg/dl Normal [facility] White blood cell (WBC) count Ordered By: ED PROVIDER on 02-25-2025 WBC (Bld) [#/Vol] 6.9 10*3/uL 4.4-11.[address] [facility] White blood cell countOrdere d By: Zane Gallardo on 02-25-2025 White blood cell count 10-25 SEEN /hpf 0-5 [facility] CNPNon 02-23-2025 CNPN Telephone (UROLMD) LINA MEADOWS ([id number]) 1960 F Date Time Provider Department 02/23/25 [...] had labs when she was overnight in [place] 12-08-2024 through the 12-10-2024. She has the CD with the imaging on it and will get ride to drop off. Spoke with [facility] and she will fax labs, and the CXR was from . Received the records. Dr. Small reviewed the labs and CXR received and he has ordered what he needs done. Please assist with scheduling CXR and labs in [place] for patient. She has transportation issues right now. Chris Forrester 02/25/2025 8:34 AM Signed Attempted to speak with patient to schedule, I left a voicemail for her to return our call to schedule. Unable to send a VIAP message. Chris Forrester 02/25/2025 2:30 PM Signed I spoke with [...] both as a Walk in Basis in [place] when she figures out living situation. She verbalizes understanding of importance. Allergies As of Date: 02/23/2025 Noted Allergy Reaction LATEX 07/09/2012 2 - Rash Date Reviewed: 07/09/2012 Reviewed by: Corwin Mojica - Fully Assessed Reason for Visit: Appointment [186] Patient Update [2584] Meds Comments as of 07/09/2012: No daily medications Problem List As Of Date: 02/23/2025 (None) Encounter Status:Closed by J[facility] (UROVIVIANA) LINA MEADOWS ([id number]) 1960 F Date Time Provider Department 02/09/25 MEREDITH FELIPE During your visit today, we recorded the following information about you: Chris Forrester 02/09/2025 12:30 PM Signed Patient called in regarding her appointment with Dr. Felipe on 02/10. She stated she uses her insurance company to arrange ride services. Patient stated she gave her insurance company the address for [facility], not the [facility] and when she called to [...] Status:Closed by CHRIS FORRESTER on 02/09/25 Normal [facility] Microalb:Creat Ratio,Random URon 01-19-2025 Creatinine [Mass/Vol] 151.00 mg/dL Normal 28.00- 217.0 0 [facility] Comment on above: Performed By: #### L 502.0250 ####[facility] [address] [place], [address] MALB:CREAT 12.6 mg/g CRE Normal <30 mg/g CRE [facility] Comment on above: Performed By: #### L 502.0250 ####[facility] [address] [place], [address] MICROALBUMIN,UR 19.0 mg/L Normal <20 mg/L [facility] Comment on above: Performed By: #### L 502.0250 ####[facility] [address] [place], [address] Random urine creatinine jn urement (mass/volume)Ordered By: Angella Boggs on 01-19-2025 Creatinine Unsp time (U) [Mass/Vol] 151.00 mg/dL 28.00-217.0 0 [facility] Urine albumin measurement wi th detection limit of 20 mg/L or less (mass/volume)Ordered By: Angella Boggs on 01-19-2025 Albumin DL <= 20 mg/L (U) [Mass/Vol] 19.0 mg/L <20 mg/L [facility] .GFRon 01-18-2025 Estimated Glomerular Filtration Rate 99 ml/min/1.73sqm Normal [facility] Comment on above: Result Comment: Stages [...] #### C MP, LIPID, A1C, GFR #### [id number] [place], [place] [address] A1Con 01-18-2025 Glucose [Mass/Vol] 263 mg/dL Normal [facility] Comment on above: Result Comment: Rosi mated Average Glucose calculated by equation ((28.7xA1C)-46.7) Estimated average glucose (eAG) is a calculated value from Hemoglobin A1C and is automobile rental representative of the average blood glucose level in the last 2-3 month period. Normal range: less than 114 mg/dL Performed By: #### C MP, LIPID, A1C, GFR #### [address] [place], [place] [address] HbA1c (Bld) [Mass fraction] 10.8 % High 4.3-6.4 [facility] Comment on above: Performed By: #### C MP, LIPID, A1C, GFR #### [facility] [address] [place], [place] [address] CMPon 01-18-2025 Albumin Level 4.0 G/dL Normal 3.4-4.8 [facility] Comment on above: Performed By: #### C MP, LIPID, A1C, GFR #### [address] [address] Albumin/Globulin [Mass ratio] 1.1 {ratio} Normal 1.1-2.5 [facility] Comment on above: Performed By: #### C MP, LIPID, A1C, GFR #### [address] [address] ALP [Catalytic activity/Vol] 90 U/L Normal 40-135 [facility] Comment on above: Performed By: #### C MP, LIPID, A1C, GFR #### [place] [id number] ALT [Catalytic activity/Vol] 23 U/L Normal 14-59 [facility] Comment on above: Performed By: #### C MP, LIPID, A1C, GFR #### [place] [address] AST [Catalytic activity/Vol] 16 U/L Normal 10-40 [facility] Comment on above: Performed By: #### C MP, LIPID, A1C, GFR #### [place] [address] Bili Total 0.4 mg/dL Normal 0.2-1.0 [facility] Comment on above: Result Comment: Use of this assay is not recommended for patients undergoing treatment with eltrombopag due to the potential for falsely elevated results. Performed By: #### C MP, LIPID, A1C, GFR #### [address] [address] BUN/Creatinine Ratio 18 ratio Normal 7-27 [facility] Comment on above: Performed By: #### C MP, LIPID, A1C, GFR #### [place] [id number] Calcium [Mass/Vol] 9.7 mg/dL Normal 8.4-10.2 [facility] Comment on above: Performed By: #### C MP, LIPID, A1C, GFR #### [address] [address] Chloride [Moles/Vol] 102 mmol/L Normal 98-107 [facility] Comment on above: Performed By: #### C MP, LIPID, A1C, GFR #### [address] [address] CO2 [Moles/Vol] 28 mmol/L Normal 23-31 [facility] Comment on above: Performed By: #### C MP, LIPID, A1C, GFR #### [address] [address] Creatinine [Mass/Vol] 0.66 mg/dL Normal 0.51-0.95 [facility] Comment on above: Performed By: #### C MP, LIPID, A1C, GFR #### [place] [address]177 Electrolyte Balance 10.0 mEq/L Normal 4.0-15.0 [facility] Comment on above: Performed By: #### C MP, LIPID, A1C, GFR #### [address] [address] Globulin 3.8 G/dL Normal 2.7-4.4 [facility] Comment on above: Performed By: #### C MP, LIPID, A1C, GFR #### [place] [id number] Glucose [Mass/Vol] 84 mg/dL Normal 80-115 [facility] Comment on above: Performed By: #### C MP, LIPID, A1C, GFR #### [address] [address] Potassium [Moles/Vol] 3.4 mmol/L Low 3.5-5.1 [facility] Comment on above: Performed By: #### C MP, LIPID, A1C, GFR #### [place] [id number] Sodium [Moles/Vol] 140 mmol/L Normal 136-145 [facility] Comment on above: Performed By: #### C MP, LIPID, A1C, GFR #### [address] [address] Total Protein 7.8 G/dL Normal 6.4-8.2 [facility] Comment on above: Performed By: #### C MP, LIPID, A1C, GFR #### [place] [id number] [place], [place] [address] Urea nitrogen [Mass/Vol] 12 mg/dL Normal 7-18 [facility] Comment on above: Performed By: #### C MP, LIPID, A1C, GFR #### [place] [id number] [place], [place] [address] LABORATORYOrdered By: Evelin Hernandes on 01-18-2025 Albumin [...] calculated value from Hemoglobin A1C and is automobile rental representative of the average blood glucose level [...] 01-18-2025 Cholesterol [Mass/Vol] 197 mg/dL Normal 0-200 [facility] Comment on above: Result Comment: Chol esterol Reference Interval: Less than 200 Desirable 200-239 Borderline high risk 240 and above High risk Performed By: #### C MP, LIPID, A1C, GFR #### [address] [address] Cholesterol in HDL [Mass/Vol] 69 mg/dL High 40-60 [facility] Comment on above: Performed By: #### C MP, LIPID, A1C, GFR #### [address] [address] Cholesterol in LDL [Mass/Vol] 114 mg/dL Normal 0-130 [facility] Comment on above: Performed By: #### C MP, LIPID, A1C, GFR #### [address] [address] Triglyceride [Mass/Vol] 72 mg/dL Normal 0-150 [facility] Comment on above: Result Comment: Trig lyceride Reference Interval: Less than 150 Normal 150-199 Borderline high risk 200-499 High risk 500 or higher Very high risk Performed By: #### C MP, LIPID, A1C, GFR #### [address] [address] MALBRon 01-18-2025 U Creatinine 48.4 mg/dL Normal [facility] Comment on above: Performed By: #### M ALBR #### [address] [address] U Microalb 24.4 mg/L Normal [facility] Comment on above: Performed By: #### M ALBR #### [facility] [address] [place], [place] [address] U Ratio Alb/Cre 50 mg/G High 0-30 [facility] Comment on above: Performed By: #### M ALBR #### [facility] [address] [place], [place] [address] Microalb:Creat Ratio,Random URon 12-23-2024 MALB:CREAT 20.3 mg/g CRE Normal [facility] Comment on above: Result Comment: AMENDED REPORT 12/23/24 1237 MALB:CREAT previously reported as: 203.0 mg/g CRE Performed By: #### L 500.4050, L502.0250, L500.4100 ####[facility] [address] [place], [address] Basic Metabolic Profile (BMP )on 12-12-2024 BUN Normal 4-19 [facility] Comment on above: Result Comment: Canc elled via OM: Order cancelled - Patient discharged Performed By: #### L 100.0500, L500.2500 ####[facility] [address] [place], [address] BUN/CRE Normal 10-20 [facility] Comment on above: Result Comment: Canc elled via OM: Order cancelled - Patient discharged Performed By: #### L 100.0500, L500.2500 ####[facility] [address] [place], [address] Calcium Normal 7.6-11.0 [facility] Comment on above: Result Comment: Canc elled via OM: Order cancelled - Patient discharged Performed By: #### L 100.0500, L500.2500 ####[facility] [address] [place], [address] CL Normal 98-108 [facility] Comment on above: Result Comment: Canc elled via OM: Order cancelled - Patient discharged Performed By: #### L 100.0500, L500.2500 ####[facility] [address] [place], [address] CO2 Normal 21.0-32.0 [facility] Comment on above: Result Comment: Canc elled via OM: Order cancelled - Patient discharged Performed By: #### L 100.0500, L500.2500 ####[facility] [address] [place], [address] CREAT,SERUM Normal 0.70-1.20 [facility] Comment on above: Result Comment: Canc elled via OM: Order cancelled - Patient discharged Performed By: #### L 100.0500, L500.2500 ####[facility] [address] [place], [address] eGFR Normal >60 [facility] Comment on above: Result Comment: Canc elled via OM: Order cancelled - Patient discharged Performed By: #### L 100.0500, L500.2500 ####[facility] [address] [place], [address] GAP Normal 5-15 [facility] Comment on above: Result Comment: Canc elled via OM: Order cancelled - Patient discharged Performed By: #### L 100.0500, L500.2500 ####[facility] [address] [place], [address] GLU Normal 70-99 [facility] Comment on above: Result Comment: Canc elled via OM: Order cancelled - Patient discharged Performed By: #### L 100.0500, L500.2500 ####[facility] [address] [place], [address] Potassium Normal 3.3-5.1 [facility] Comment on above: Result Comment: Canc elled via OM: Order cancelled - Patient discharged Performed By: #### L 100.0500, L500.2500 ####[facility] [address] [place], [address] Basic Metabolic Profile (BMP) Normal 133-145 [facility] Comment on above: Result Comment: Canc elled via OM: Order cancelled - Patient discharged Performed By: #### L 100.0500, L500.2500 ####[facility] [address] [place], [address] CBC-Complete Blood Cnt No Di ffon 12-12-2024 HCT Normal 37-47 [facility] Comment on above: Result Comment: Canc elled via OM: Order cancelled - Patient discharged Performed By: #### L 100.0500, L500.2500 ####[facility] [address] [place], [address] HGB Normal 12.0-15.0 [facility] Comment on above: Result Comment: Canc elled via OM: Order cancelled - Patient discharged Performed By: #### L 100.0500, L500.2500 ####[facility] [address] [place], [address] MCH Normal 27.0-32.0 [facility] Comment on above: Result Comment: Canc elled via OM: Order cancelled - Patient discharged Performed By: #### L 100.0500, L500.2500 ####[facility] [address] [place], [address] MCHC Normal 32-36 [facility] Comment on above: Result Comment: Canc elled via OM: Order cancelled - Patient discharged Performed By: #### L 100.0500, L500.2500 ####[facility] [address] [place], [address] MCV Normal 81-99 [facility] Comment on above: Result Comment: Canc elled via OM: Order cancelled - Patient discharged Performed By: #### L 100.0500, L500.2500 ####[facility] [address] [place], [address] PLT Normal 150-450 [facility] Comment on above: Result Comment: Canc elled via OM: Order cancelled - Patient discharged Performed By: #### L 100.0500, L500.2500 ####[facility] [address] [place], [address] RBC Normal 4.2-5.4 [facility] Comment on above: Result Comment: Canc elled via OM: Order cancelled - Patient discharged Performed By: #### L 100.0500, L500.2500 ####[facility] [address] [place], [address] RDW CV Normal 11.6-14.6 [facility] Comment on above: Result Comment: Canc elled via OM: Order cancelled - Patient discharged Performed By: #### L 100.0500, L500.2500 ####[facility] [address] [place], [address] RDW SD Normal 35.1-43.9 [facility] Comment on above: Result Comment: Canc elled via OM: Order cancelled - Patient discharged Performed By: #### L 100.0500, L500.2500 ####[facility] [address] [place], [address] WBC Normal 4.4-11.0 [facility] Comment on above: Result Comment: Canc elled via OM: Order cancelled - Patient discharged Performed By: #### L 100.0500, L500.2500 ####[facility] [address] [place], [address] Basic Metabolic Profile (BMP )on 12-11-2024 BUN Normal 4-19 [facility] Comment on above: Result Comment: Canc elled via OM: Order cancelled - Patient discharged Performed By: #### L 100.0500, L500.2500 ####[facility] [address] [place], [address] BUN/CRE Normal 10-20 [facility] Comment on above: Result Comment: Canc elled via OM: Order cancelled - Patient discharged Performed By: #### L 100.0500, L500.2500 ####[facility] [address] [place], [address] Calcium Normal 7.6-11.0 [facility] Comment on above: Result Comment: Canc elled via OM: Order cancelled - Patient discharged Performed By: #### L 100.0500, L500.2500 ####[facility] [address] [place], [address] CL Normal 98-108 [facility] Comment on above: Result Comment: Canc elled via OM: Order cancelled - Patient discharged Performed By: #### L 100.0500, L500.2500 ####[facility] [address] [place], [address] CO2 Normal 21.0-32.0 [facility] Comment on above: Result Comment: Canc elled via OM: Order cancelled - Patient discharged Performed By: #### L 100.0500, L500.2500 ####[facility] [address] [place], [address] CREAT,SERUM Normal 0.70-1.20 [facility] Comment on above: Result Comment: Canc elled via OM: Order cancelled - Patient discharged Performed By: #### L 100.0500, L500.2500 ####[facility] [address] [place], [address] eGFR Normal >60 [facility] Comment on above: Result Comment: Canc elled via OM: Order cancelled - Patient discharged Performed By: #### L 100.0500, L500.2500 ####[facility] [address] [place], [address] GAP Normal 5-15 [facility] Comment on above: Result Comment: Canc elled via OM: Order cancelled - Patient discharged Performed By: #### L 100.0500, L500.2500 ####[facility] [address] [place], [address] GLU Normal 70-99 [facility] Comment on above: Result Comment: Canc elled via OM: Order cancelled - Patient discharged Performed By: #### L 100.0500, L500.2500 ####[facility] [address] [place], [address] Potassium Normal 3.3-5.1 [facility] Comment on above: Result Comment: Canc elled via OM: Order cancelled - Patient discharged Performed By: #### L 100.0500, L500.2500 ####[facility] [address] [place], [address] Basic Metabolic Profile (BMP) Normal 133-145 [facility] Comment on above: Result Comment: Canc elled via OM: Order cancelled - Patient discharged Performed By: #### L 100.0500, L500.2500 ####[facility] [address] [place], [address] CBC-Complete Blood Cnt No Di ffon 12-11-2024 HCT Normal 37-47 [facility] Comment on above: Result Comment: Canc elled via OM: Order cancelled - Patient discharged Performed By: #### L 100.0500, L500.2500 ####[facility] [address] [place], [address] HGB Normal 12.0-15.0 [facility] Comment on above: Result Comment: Canc elled via OM: Order cancelled - Patient discharged Performed By: #### L 100.0500, L500.2500 ####[facility] [address] [place], [address] MCH Normal 27.0-32.0 [facility] Comment on above: Result Comment: Canc elled via OM: Order cancelled - Patient discharged Performed By: #### L 100.0500, L500.2500 ####[facility] [address] [place], [address] MCHC Normal 32-36 [facility] Comment on above: Result Comment: Canc elled via OM: Order cancelled - Patient discharged Performed By: #### L 100.0500, L500.2500 ####[facility] [address] [place], [address] MCV Normal 81-99 [facility] Comment on above: Result Comment: Canc elled via OM: Order cancelled - Patient discharged Performed By: #### L 100.0500, L500.2500 ####[facility] [address] [place], [address] PLT Normal 150-450 [facility] Comment on above: Result Comment: Canc elled via OM: Order cancelled - Patient discharged Performed By: #### L 100.0500, L500.2500 ####[facility] [address] [place], [address] RBC Normal 4.2-5.4 [facility] Comment on above: Result Comment: Canc elled via OM: Order cancelled - Patient discharged Performed By: #### L 100.0500, L500.2500 ####[facility] [address] [place], [address] RDW CV Normal 11.6-14.6 [facility] Comment on above: Result Comment: Canc elled via OM: Order cancelled - Patient discharged Performed By: #### L 100.0500, L500.2500 ####[facility] [address] [place], [address] RDW SD Normal 35.1-43.9 [facility] Comment on above: Result Comment: Canc elled via OM: Order cancelled - Patient discharged Performed By: #### L 100.0500, L500.2500 ####[facility] [address] [place], [address] WBC Normal 4.4-11.0 [facility] Comment on above: Result Comment: Canc elled via OM: Order cancelled - Patient discharged Performed By: #### L 100.0500, L500.2500 ####[facility] [address] [place], [address] Anion gap in Serum or Plasma Ordered By: Ciro Mendosa on 12-10-2024 Anion gap [Moles/Vol] 10 mmol/L 11-18 [facility] BUN/creatinine ratioOrdered By: Ciro Mendosa on 12-10-2024 Urea nitrogen/Creatinine [Mass ratio] 14.1 mg/mg 04-25 [facility] Basic Metabolic Profile (BMP )on 12-10-2024 BUN/CRE 14.1 RATIO Normal 04-25 [facility] Comment on above: Performed By: #### L 501.5200, L100.0500, L500.2500, L501.2300 ####[facility] [address] [place], [address] Calcium [Mass/Vol] 9.5 mg/dL Normal 7.6-11.[address] [facility] Comment on above: Performed By: #### L 501.5200, L100.0500, L500.2500, L501.2300 ####[facility] [address] [place], [address] Chloride [Moles/Vol] 106 mmol/L Normal 98-108 [facility] Comment on above: Performed By: #### L 501.5200, L100.0500, L500.2500, L501.2300 ####[facility] [address] [place], [address] CO2 [Moles/Vol] 21.1 mmol/L Normal 21.0-32.0 [facility] Comment on above: Performed By: #### L 501.5200, L100.0500, L500.2500, L501.2300 ####[facility] [address] [place], [address] Creatinine [Mass/Vol] 0.76 mg/dL Normal 0.70-1.20 [facility] Comment on above: Performed By: #### L 501.5200, L100.0500, L500.2500, L501.2300 ####[facility] [address] [place], [address] ECRCL 63.49 ml/min Normal 50-250 [facility] Comment on above: Performed By: #### L 501.5200, L100.0500, L500.2500, L501.2300 ####[facility] [address] [place], [address] GAP 10 Normal 5-15 [facility] Comment on above: Performed By: #### L 501.5200, L100.0500, L500.2500, L501.2300 ####[facility] [address] [place], [address] GFR/1.73 sq M.predicted among non-blacks MDRD (S/P/Bld) [Vol rate/Area] 89 mL/min/{1.73_m2} Normal >60 [facility] Comment on above: Result Comment: mL/m in/1.73m2 CKD-EPI Creatinine Equation (2020) Performed By: #### L 501.5200, L100.0500, L500.2500, L501.2300 ####[facility] [address] [place], [address] Glucose [Mass/Vol] 118 mg/dL High 70-[address] [facility] Comment on above: Performed By: #### L 501.5200, L100.0500, L500.2500, L501.2300 ####[facility] [address] [place], [address] Potassium [Moles/Vol] 3.6 mmol/L Normal 3.3-5.1 [facility] Comment on above: Performed By: #### L 501.5200, L100.0500, L500.2500, L501.2300 ####[facility] [address] [place], [address] Sodium [Moles/Vol] 137 mmol/L Normal 133-[address] [facility] Comment on above: Performed By: #### L 501.5200, L100.0500, L500.2500, L501.2300 ####[facility] [address] [place], [address] Urea nitrogen [Mass/Vol] 11 mg/dL Normal 4-19 [facility] Comment on above: Performed By: #### L 501.5200, L100.0500, L500.2500, L501.2300 ####[facility] [address] [place], [address] Bedside Glucoseon 12-10-2024 FINGERSTICK GLU 93 mg/dL Normal 74-106 [facility] Comment on above: Result Comment: MARIA D GEMENT OF PATIENT CARE PER NURSING PROTOCOL Performed By: #### L 501.080 ####[facility] [address] [place], [address] FINGERSTICK GLU 115 mg/dL High 74-106 [facility] Comment on above: Result Comment: MARIA D GEMENT OF PATIENT CARE PER NURSING PROTOCOL Performed By: #### L 501.080 ####[facility] [address] [place], [address] CBC-Complete Blood Cnt No Di ffon 12-10-2024 Erythrocyte distribution width (RBC) [Ratio] 12.7 % Normal 11.6-14.6 [facility] Comment on above: Performed By: #### L 501.5200, L100.0500, L500.2500, L501.2300 ####[facility] [address] [place], [address] Hematocrit (Bld) [Volume fraction] 29.9 % Low 37-47 [facility] Comment on above: Performed By: #### L 501.5200, L100.0500, L500.2500, L501.2300 ####[facility] [address] [place], [address] Hemoglobin (Bld) [Mass/Vol] 10.5 g/dL Low 12.0-15.0 [facility] Comment on above: Performed By: #### L 501.5200, L100.0500, L500.2500, L501.2300 ####[facility] [address] [place], [address] MCH (RBC) [Entitic mass] 30.1 pg Normal 27.0-32.0 [facility] Comment on above: Performed By: #### L 501.5200, L100.0500, L500.2500, L501.2300 ####[facility] [address] [place], [address] MCHC (RBC) [Mass/Vol] 35.1 g/dL Normal 32-36 [facility] Comment on above: Performed By: #### L 501.5200, L100.0500, L500.2500, L501.2300 ####[facility] [address] [place], [address] MCV (RBC) [Entitic vol] 85.7 fL Normal 81-99 [facility] Comment on above: Performed By: #### L 501.5200, L100.0500, L500.2500, L501.2300 ####[facility] [address] [place], [address] Platelet mean volume (Bld) [Entitic vol] 12.0 fL Normal 6.2-12.0 [facility] Comment on above: Performed By: #### L 501.5200, L100.0500, L500.2500, L501.2300 ####[facility] [address] [place], [address] Platelets (Bld) [#/Vol] 175 10*3/uL Normal 150-450 [facility] Comment on above: Performed By: #### L 501.5200, L100.0500, L500.2500, L501.2300 ####[facility] [address] [place], [address] RBC (Bld) [#/Vol] 3.49 10*6/uL Low 4.2-5.4 [facility] Comment on above: Performed By: #### L 501.5200, L100.0500, L500.2500, L501.2300 ####[facility] [address] [place], [address] RDW SD 39.3 fl Normal 35.1-43.9 [facility] Comment on above: Performed By: #### L 501.5200, L100.0500, L500.2500, L501.2300 ####[facility] [address] [place], [address] WBC (Bld) [#/Vol] 4.1 10*3/uL Low 4.4-11.[address] [facility] Comment on above: Performed By: #### L 501.5200, L100.0500, L500.2500, L501.2300 ####[facility] [address] [place], [address] Carbon dioxide, total [Moles /volume] in Central venous bloodOrdered By: Ciro Mendosa on 12-10-2024 CO2 [Moles/Vol] 21.1 mmol/L 21.0-32.0 [facility] Chloride assayOrdered By: Micky Mendosa on 12-10-2024 Chloride [Moles/Vol] 106 mmol/L 98-108 [facility] Erythrocyte distribution wid th ratioOrdered By: Ciro Mendosa on 12-10-2024 Erythrocyte distribution width (RBC) [Ratio] 12.7 % 11.6-14.6 [facility] Erythrocyte distribution wid th standard deviationOrdered By: Ciro Mendosa on 12-10-2024 Erythrocyte distribution width (RBC) [Ratio] 39.3 fl 35.1-43.9 [facility] Glomerular filtration rate ( GFR) estimation/1.73 sq m using serum, plasma, or whole bOrdered By: Ciro Mendosa on 12-10-2024 GFR/1.73 sq M.predicted among non-blacks MDRD (S/P/Bld) [Vol rate/Area] 89 mL/min/{1.73_m2} >60 [facility] Comment on above: mL/min/1.73m2 CKD-EP I Creatinine Equation (2020) Glucose measurement at [facility] deOrdered By: Ciro Mendosa on 12-10-2024 Glucose [Mass/Vol] 93 mg/dL 74-[address] [facility] Comment on above: MANAGEMENT OF PATIEN T CARE PER NURSING PROTOCOL Hematocrit Auto (Bld) [Volum e fraction]Ordered By: Ciro Mendosa on 12-10-2024 Hematocrit (Bld) [Volume fraction] 29.9 % Low 37-47 [facility] Hemoglobin measurementOrdere d By: Ciro Mendosa on 12-10-2024 Hemoglobin (Bld) [Mass/Vol] 10.5 g/dL Low 12.0-15.0 [facility] MCV (mean corpuscular volume ) determinationOrdered By: Ciro Mendosa on 12-10-2024 MCV (RBC) [Entitic vol] 85.7 fL 81-99 [facility] Magnesiumon 12-10-2024 Magnesium [Mass/Vol] 1.9 mg/dL Normal 1.5-2.2 [facility] Comment on above: Performed By: #### L 501.5200, L100.0500, L500.2500, L501.2300 ####[facility] [address] [place], [place], [id number] Magnesium measurement (mass/ volume)Ordered By: Ciro Mendosa on 12-10-2024 Magnesium (Unsp spec) [Mass/Vol] 1.9 mg/dL 1.5-2.2 [facility] Mean corpuscular hemoglobin (MCH) determinationOrdered By: Ciro Mendosa on 12-10-2024 MCH (RBC) [Entitic mass] 30.1 pg 27.0-32.0 [facility] Mean corpuscular hemoglobin concentration (MCHC) determinationOrdered By: Ciro Mendosa on 12-10-2024 MCHC (RBC) [Mass/Vol] 35.1 g/dL 32-36 [facility] Mean platelet volume determi nationOrdered By: Ciro Mendosa on 12-10-2024 Platelet mean volume (Bld) [Entitic vol] 12.0 fL 6.2-12.0 [facility] Phosphoruson 12-10-2024 Phosphate [Mass/Vol] 3.1 mg/dL Normal 2.7-4.5 [facility] Comment on above: Performed By: #### L 501.5200, L100.0500, L500.2500, L501.2300 ####[facility] [address] [place], [address] Platelet countOrdered By: Micky Mendosa on 12-10-2024 Platelets (Bld) [#/Vol] 175 10*3/uL 150-450 [facility] Potassium measurement (mass/ volume)Ordered By: Ciro Mendosa on 12-10-2024 Potassium (Unsp spec) [Mass/Vol] 3.6 mmol/L 3.3-5.1 [facility] RBC Auto (Bld) [#/Vol]Ordere d By: Ciro Mendosa on 12-10-2024 RBC (Bld) [#/Vol] 3.49 10*6/uL Low 4.2-5.4 [facility] Serum creatinine measurement (mass/volume)Ordered By: Ciro Mendosa on 12-10-2024 Creatinine [Mass/Vol] 0.76 mg/dL 0.70-1.20 [facility] Serum glucose measurement (m ass/volume)Ordered By: Ciro Mendosa on 12-10-2024 Glucose [Mass/Vol] 118 mg/dL High 70-[address] [facility] Serum or plasma calcium jn urement (mass/volume)Ordered By: Ciro Mendosa on 12-10-2024 Calcium [Mass/Vol] 9.5 mg/dL 7.6-11.[address] [facility] Serum or plasma urea nitroge n measurement (mass/volume)Ordered By: Ciro Mendosa on 12-10-2024 Urea nitrogen [Mass/Vol] 11 mg/dL 4-19 [facility] Sodium levelOrdered By: Helio Mendosa on 12-10-2024 Sodium [Moles/Vol] 137 mmol/L 133-[address] [facility] White blood cell (WBC) count Ordered By: Ciro Mendosa on 12-10-2024 WBC (Bld) [#/Vol] 4.1 10*3/uL Low 4.4-11.[address] [facility] Absolute lymphocyte countOrd ered By: Zelda Ibarra on 12-09-2024 Lymphocytes Auto (Unsp spec) [#/Vol] 2.57 10*3/uL 0.83-4.51 [facility] Absolute neutrophil countOrd ered By: Zelda Ibarra on 12-09-2024 Neutrophils (Bld) [#/Vol] 3.9 10*3/uL 2.0-7.7 [facility] Automated lymphocyte count a s percentage of total leukocytesOrdered By: Zelda Ibarra on 12-09-2024 Lymphocytes/100 WBC Auto (Unsp spec) 34.5 % 19-41 [facility] Basic Metabolic Profile (BMP )on 12-09-2024 BUN/CRE 18.1 RATIO Normal 10-20 [facility] Comment on above: Performed By: #### L 500.2500 ####[facility] [address] [place], [place], [id number] Calcium [Mass/Vol] 9.1 mg/dL Normal 7.6-11.[address] [facility] Comment on above: Performed By: #### L 500.2500 ####[facility] [address] [place], [place], [id number] Chloride [Moles/Vol] 104 mmol/L Normal 98-108 [facility] Comment on above: Performed By: #### L 500.2500 ####[facility] [address] [place], [address] CO2 [Moles/Vol] 17.2 mmol/L Low 21.0-32.0 [facility] Comment on above: Performed By: #### L 500.2500 ####[facility] [address] [place], [address] Creatinine [Mass/Vol] 0.94 mg/dL Normal 0.70-1.20 [facility] Comment on above: Performed By: #### L 500.2500 ####[facility] [address] [place], [address] ECRCL 51.33 ml/min Normal 50-250 [facility] Comment on above: Performed By: #### L 500.2500 ####[facility] [address] [place], [address] GAP 14 Normal 5-15 [facility] Comment on above: Performed By: #### L 500.2500 ####[facility] [address] [place], [address] GFR/1.73 sq M.predicted among non-blacks MDRD (S/P/Bld) [Vol rate/Area] 69 mL/min/{1.73_m2} Normal >60 [facility] Comment on above: Result Comment: mL/m in/1.73m2 CKD-EPI Creatinine Equation (2020) Performed By: #### L 500.2500 ####[facility] [address] [place], [address] Glucose [Mass/Vol] 123 mg/dL High 70-[address] [facility] Comment on above: Performed By: #### L 500.2500 ####[facility] [address] [place], [address] Potassium [Moles/Vol] 3.8 mmol/L Normal 3.3-5.1 [facility] Comment on above: Performed By: #### L 500.2500 ####[facility] [address] [place], [address] Sodium [Moles/Vol] 135 mmol/L Normal 133-[address] [facility] Comment on above: Performed By: #### L 500.2500 ####[facility] [address] [place], [address] Urea nitrogen [Mass/Vol] 17 mg/dL Normal 4-19 [facility] Comment on above: Performed By: #### L 500.2500 ####[facility] [address] [place], [address] BUN/CRE 18.6 RATIO Normal 10-20 [facility] Comment on above: Order Comment: Call MD with results STAT Performed By: #### L 500.4050, L500.2500 ####[facility] [address] [place], [address] Calcium [Mass/Vol] 9.2 mg/dL Normal 7.6-11.[address] [facility] Comment on above: Order Comment: Call MD with results STAT Performed By: #### L 500.4050, L500.2500 ####[facility] [address] [place], [address] Chloride [Moles/Vol] 103 mmol/L Normal 98-108 [facility] Comment on above: Order Comment: Call MD with results STAT Performed By: #### L 500.4050, L500.2500 ####[facility] [address] [place], [address] CO2 [Moles/Vol] 17.1 mmol/L Low 21.0-32.0 [facility] Comment on above: Order Comment: Call MD with results STAT Performed By: #### L 500.4050, L500.2500 ####[facility] [address] [place], [address] Creatinine [Mass/Vol] 1.01 mg/dL Normal 0.70-1.20 [facility] Comment on above: Order Comment: Call MD with results STAT Performed By: #### L 500.4050, L500.2500 ####[facility] [address] [place], [address] ECRCL 47.77 ml/min Low 50-250 [facility] Comment on above: Order Comment: Call MD with results STAT Performed By: #### L 500.4050, L500.2500 ####[facility] [address] [place], [address] GAP 14 Normal 5-15 [facility] Comment on above: Order Comment: Call MD with results STAT Performed By: #### L 500.4050, L500.2500 ####[facility] [address] [place], [address] GFR/1.73 sq M.predicted among non-blacks MDRD (S/P/Bld) [Vol rate/Area] 63 mL/min/{1.73_m2} Normal >60 [facility] Comment on above: Order Comment: Call MD with results STAT Result Comment: mL/m in/1.73m2 CKD-EPI Creatinine Equation (2020) Performed By: #### L 500.4050, L500.2500 ####[facility] [address] [place], [address] Glucose [Mass/Vol] 93 mg/dL Normal 70-[address] [facility] Comment on above: Order Comment: Call MD with results STAT Performed By: #### L 500.4050, L500.2500 ####[facility] [address] [place], [address] Potassium [Moles/Vol] 4.6 mmol/L Normal 3.3-5.1 [facility] Comment on above: Order Comment: Call MD with results STAT Result Comment: Hemo lysis present, Results??could be affected.?? Performed By: #### L 500.4050, L500.2500 ####[facility] [address] [place], [address] Sodium [Moles/Vol] 134 mmol/L Normal 133-[address] [facility] Comment on above: Order Comment: Call MD with results STAT Performed By: #### L 500.4050, L500.2500 ####[facility] [address] [place], [address] Urea nitrogen [Mass/Vol] 19 mg/dL Normal 4-19 [facility] Comment on above: Order Comment: Call MD with results STAT Performed By: #### L 500.4050, L500.2500 ####[facility] [address] [place], [address] BUN/CRE 20.6 RATIO High 10-20 [facility] Comment on above: Order Comment: Call MD with results STAT Performed By: #### L 509.7001, L500.2500 ####[facility] [address] [place], [address] Calcium [Mass/Vol] 9.5 mg/dL Normal 7.6-11.[address] [facility] Comment on above: Order Comment: Call MD with results STAT Performed By: #### L 509.7001, L500.2500 ####[facility] [address] [place], [address] Chloride [Moles/Vol] 101 mmol/L Normal 98-108 [facility] Comment on above: Order Comment: Call MD with results STAT Performed By: #### L 509.7001, L500.2500 ####[facility] [address] [place], [address] CO2 [Moles/Vol] 16.8 mmol/L Low 21.0-32.0 [facility] Comment on above: Order Comment: Call MD with results STAT Performed By: #### L 509.7001, L500.2500 ####[facility] [address] [place], [address] Creatinine [Mass/Vol] 1.04 mg/dL Normal 0.70-1.20 [facility] Comment on above: Order Comment: Call MD with results STAT Performed By: #### L 509.7001, L500.2500 ####[facility] [address] [place], [address] ECRCL 46.40 ml/min Low 50-250 [facility] Comment on above: Order Comment: Call MD with results STAT Performed By: #### L 509.7001, L500.2500 ####[facility] [address] [place], [address] GAP 17 High 5-15 [facility] Comment on above: Order Comment: Call MD with results STAT Performed By: #### L 509.7001, L500.2500 ####[facility] [address] [place], [address] GFR/1.73 sq M.predicted among non-blacks MDRD (S/P/Bld) [Vol rate/Area] 61 mL/min/{1.73_m2} Normal >60 [facility] Comment on above: Order Comment: Call MD with results STAT Result Comment: mL/m in/1.73m2 CKD-EPI Creatinine Equation (2020) Performed By: #### L 509.7001, L500.2500 ####[facility] [address] [place], [address] Glucose [Mass/Vol] 139 mg/dL High 70-[address] [facility] Comment on above: Order Comment: Call MD with results STAT Performed By: #### L 509.7001, L500.2500 ####[facility] [address] [place], [address] Potassium [Moles/Vol] 3.8 mmol/L Normal 3.3-5.1 [facility] Comment on above: Order Comment: Call MD with results STAT Performed By: #### L 509.7001, L500.2500 ####[facility] [address] [place], [address] Sodium [Moles/Vol] 134 mmol/L Normal 133-[address] [facility] Comment on above: Order Comment: Call MD with results STAT Performed By: #### L 509.7001, L500.2500 ####[facility] [address] [place], [address] Urea nitrogen [Mass/Vol] 21 mg/dL High 4-19 [facility] Comment on above: Order Comment: Call MD with results STAT Performed By: #### L 509.7001, L500.2500 ####[facility] [address] [place], [address] Basophil percentageOrdered B y: Zelda White on 12-09-2024 Basophils/100 WBC (Bld) 0.5 % Normal 0-1 [facility] Comment on above: Performed By: #### L 100.0100, L501.9985 ####[facility] [address] [place], [address] Bedside Glucoseon 12-09-2024 FINGERSTICK GLU 207 mg/dL High 74-106 [facility] Comment on above: Result Comment: MARIA D GEMENT OF PATIENT CARE PER NURSING PROTOCOL Performed By: #### L 501.080 ####[facility] [address] [place], [address] FINGERSTICK GLU 253 mg/dL High 74-106 [facility] Comment on above: Result Comment: MARIA D GEMENT OF PATIENT CARE PER NURSING PROTOCOL Performed By: #### L 501.080 ####[facility] [address] [place], [address] FINGERSTICK GLU 140 mg/dL High 74-106 [facility] Comment on above: Result Comment: MARIA D GEMENT OF PATIENT CARE PER NURSING PROTOCOL Performed By: #### L 501.080 ####[facility] [address] [place], [address] FINGERSTICK GLU 116 mg/dL High 74-106 [facility] Comment on above: Result Comment: MARIA D GEMENT OF PATIENT CARE PER NURSING PROTOCOL Performed By: #### L 501.080 ####[facility] [address] [place], [address] FINGERSTICK GLU 103 mg/dL Normal 74-106 [facility] Comment on above: Result Comment: MARIA D GEMENT OF PATIENT CARE PER NURSING PROTOCOL Performed By: #### L 501.080 ####[facility] [address] [place] [place], [address] FINGERSTICK GLU 102 mg/dL Normal 74-106 [facility] Comment on above: Result Comment: MARIA D GEMENT OF PATIENT CARE PER NURSING PROTOCOL Performed By: #### L 501.080 ####[facility] [address] [place], [address] FINGERSTICK GLU 98 mg/dL Normal 74-106 [facility] Comment on above: Result Comment: MARIA D GEMENT OF PATIENT CARE PER NURSING PROTOCOL Performed By: #### L 501.080 ####[facility] [address] [place], [address] FINGERSTICK GLU 113 mg/dL High 74-106 [facility] Comment on above: Result Comment: MARIA D GEMENT OF PATIENT CARE PER NURSING PROTOCOL Performed By: #### L 501.080 ####[facility] [address] [place], [address] FINGERSTICK GLU 104 mg/dL Normal 74-106 [facility] Comment on above: Result Comment: MARIA D GEMENT OF PATIENT CARE PER NURSING PROTOCOL Performed By: #### L 501.080 ####[facility] [address] [place], [address] FINGERSTICK GLU 125 mg/dL High 74-106 [facility] Comment on above: Result Comment: MARIA D GEMENT OF PATIENT CARE PER NURSING PROTOCOL Performed By: #### L 501.080 ####[facility] [address] [place], [address] FINGERSTICK GLU 88 mg/dL Normal 74-106 [facility] Comment on above: Result Comment: MARIA D GEMENT OF PATIENT CARE PER NURSING PROTOCOL Performed By: #### L 501.080 ####[facility] [address] [place], [address] FINGERSTICK GLU 156 mg/dL High 74-106 [facility] Comment on above: Result Comment: MARIA D GEMENT OF PATIENT CARE PER NURSING PROTOCOL Performed By: #### L 501.080 ####[facility] [address] [place], [address] Bilirubin, totalOrdered By: Zelad Ibarra on 12-09-2024 Bilirubin [Mass/Vol] 0.22 mg/dL Normal 0.00-1.30 [facility] Comment on above: Order Comment: Call MD with results STAT Performed By: #### L 500.4050, L500.2500 ####[facility] [address] [place], [address] CBC W/Diff, Automatedon Absolute Lymph 2.57 X10 3/uL Normal 0.83-4.51 [facility] Comment on above: Performed By: #### L 100.0100, L501.9985 ####[facility] [address] [place], [address] Absolute Neut 3.9 X10 3/uL Normal 2.0-7.7 [facility] Comment on above: Performed By: #### L 100.0100, L501.9985 ####[facility] [address] [place], [address] Erythrocyte distribution width (RBC) [Ratio] 12.5 % Normal 11.6-14.6 [facility] Comment on above: Performed By: #### L 100.0100, L501.9985 ####[facility] [address] [place], [address] Hematocrit (Bld) [Volume fraction] 28.5 % Low 37-47 [facility] Comment on above: Performed By: #### L 100.0100, L501.9985 ####[facility] [address] [place], [address] Hemoglobin (Bld) [Mass/Vol] 9.9 g/dL Low 12.0-15.0 [facility] Comment on above: Performed By: #### L 100.0100, L501.9985 ####[facility] [address] [place], [address] IG% 0.300 Normal 0.0-0.9 [facility] Comment on above: Result Comment: IG% - Immature Granulocytes (promyelocytes, myelocytes andmetamyelocytes) > 1% indicates that a LEFT SHIFT is Present. Performed By: #### L 100.0100, L501.9985 ####[facility] [address] [place], [address] Lymphocytes/100 WBC (Bld) 34.5 % Normal 19-41 [facility] Comment on above: Performed By: #### L 100.0100, L501.9985 ####[facility] [address] [place], [address] MCH (RBC) [Entitic mass] 29.7 pg Normal 27.0-32.0 [facility] Comment on above: Performed By: #### L 100.0100, L501.9985 ####[facility] [address] [place], [address] MCHC (RBC) [Mass/Vol] 34.7 g/dL Normal 32-36 [facility] Comment on above: Performed By: #### L 100.0100, L501.9985 ####[facility] [address] [place], [address] MCV (RBC) [Entitic vol] 85.6 fL Normal 81-99 [facility] Comment on above: Performed By: #### L 100.0100, L5.85 ####[facility] [address] [place], [address] Nucleated RBC (Bld) [#/Vol] 0 10*3/uL Normal 0-5 [facility] Comment on above: Performed By: #### L 100.0100, L5.9985 ####[facility] [address] [place], [address] Platelet mean volume (Bld) [Entitic vol] 12.0 fL Normal 6.2-12.0 [facility] Comment on above: Performed By: #### L 100.0100, L5.9985 ####[facility] [address] [place], [address] Platelets (Bld) [#/Vol] 198 10*3/uL Normal 150-450 [facility] Comment on above: Performed By: #### L 100.0100, L5.9985 ####[facility] [address] [place], [address] RBC (Bld) [#/Vol] 3.33 10*6/uL Low 4.2-5.4 [facility] Comment on above: Performed By: #### L 100.0100, L501.9985 ####[facility] [address] [place], [address] RDW SD 38.5 fl Normal 35.1-43.9 [facility] Comment on above: Performed By: #### L 100.0100, L501.9985 ####[facility] [address] [place], [address] WBC (Bld) [#/Vol] 7.5 10*3/uL Normal 4.4-11.[address] [facility] Comment on above: Performed By: #### L 100.0100, L501.9985 ####[facility] [address] [place], [address] Comprehensive Metabolic Prof ilon 12-09-2024 ALK PHOS 87 U/L Normal 35-104 [facility] Comment on above: Order Comment: Call MD with results STAT Performed By: #### L 500.4050, L500.2500 ####[facility] [address] [place], [address] T PROT 6.6 g/dL Normal 5.9-8.4 [facility] Comment on above: Order Comment: Call MD with results STAT Performed By: #### L 500.4050, L500.2500 ####[facility] [address] [place], [address] Comprehensive Metabolic Prof ilOrdered By: Zelda Ibarra on 12-09-2024 AST [Catalytic activity/Vol] 23 U/L Normal <=31 [facility] Comment on above: Hemolysis present, R esults could be affected. Order Comment: Call MD with results STAT Result Comment: Hemo lysis present, Results??could be affected.?? Performed By: #### L 500.4050, L500.2500 ####[facility] [address] [place], [address] Eosinophil percentageOrdered By: Zelda Ibarra on 12-09-2024 Eosinophils/100 WBC (Bld) 2.7 % Normal 0-5 [facility] Comment on above: Performed By: #### L 100.0100, L501.9985 ####[facility] [address] [place], [address] H AND P Exam - Hospitaliston 12-09-2024 H&P Exam - Hospitalist Normal [facility] Hemoglobin A1c percentageOrd ered By: Zelda Fred on 12-09-2024 HbA1c (Bld) [Mass fraction] 12.8 % High <=5.6 [facility] Comment on above: Normal < 5.7 % Predi abetic 5.7 - 6.4 % Diabetic >or= 6.5 % Please note range changes. Result Comment: Norm al < 5.7 % Prediabetic 5.7 - 6.4 % Diabetic >or= 6.5 % Please note range changes. Performed By: #### L 100.0100, L501.9985 ####[facility] [address] [place], [place], [address] Immature granulocytes/100 WB C Auto (Bld)Ordered By: Zelda Ibarra on 12-09-2024 Immature granulocytes/100 WBC (Bld) 0.300 % 0.0-0.9 [facility] Comment on above: IG% - Immature Granu locytes (promyelocytes, myelocytes and metamyelocytes) > 1% indicates that a LEFT SHIFT is Present. L509.7001on 12-09-2024 Procalcitonin 0.08 ng/mL Normal <=0.10 [facility] Comment on above: Result Comment: Inte rpretation:<0.10-0.25 ng/mL: Antibiotic therapy discouraged. Bacterialinfection unlikely.0.25-0.50 ng/mL: Antibiotic therapy encouraged. Bacterialinfection possible.>0.50 ng/mL: Antibiotic therapy strongly encouraged.Suggestive of presence of bacterial infection.PCT should always be interpreted in the clinical context ofthe patient. Therefore, clinicians should use the PCTresults in conjunction with other laboratory findings andclinical signs of the patient. Performed By: #### L 509.7001, L500.2500 ####[facility] [address] [place], [place], [id number] Magnesiumon 12-09-2024 Magnesium [Mass/Vol] 2.2 mg/dL Normal 1.5-2.2 [facility] Comment on above: Order Comment: Comme nts: May add to ED labsComments: may add to ED labs Performed By: #### L 501.2300, L501.5200 ####[facility] [address] [place], [address] Monocyte percentageOrdered B y: Zelda Ibarra on 12-09-2024 Monocytes/100 WBC (Bld) 9.7 % Normal 0-10 [facility] Comment on above: Performed By: #### L 100.0100, L501.9985 ####[facility] [address] [place], [address] Neutrophil percentageOrdered By: Zelda Fred on 12-09-2024 Neutrophils/100 WBC (Bld) 52.3 % Normal 47-70 [facility] Comment on above: Performed By: #### L 100.0100, L501.9985 ####[facility] [address] [place], [address] Nucleated red blood cell per centageOrdered By: Zelda Ibarra on 12-09-2024 Nucleated RBC/100 WBC (Bld) [Ratio] 0 % 0-5 [facility] Phosphoruson 12-09-2024 Phosphate [Mass/Vol] 4.7 mg/dL High 2.7-4.5 [facility] Comment on above: Order Comment: Comme nts: May add to ED labsComments: may add to ED labs Performed By: #### L 501.2300, L501.5200 ####[facility] [address] [place], [address] Procalcitonin [Mass/volume] in Serum or Plasma by ImmunoassayOrdered By: Zelda Ibarra on 12-09-2024 Procalcitonin IA [Mass/Vol] 0.08 ng/mL <0.11 [facility] Comment on above: Interpretation:<0.10 -0.25 ng/mL: [...] Globulin (S) [Mass/Vol] 2.8 g/dL Normal 2.2-4.2 [facility] Comment on above: Order Comment: Call with results STAT Performed By: #### L 500.4050, L500.2500 ####[facility] [address] [facility] [address] Serum or plasma alanine hargrove otransferase (ALT) measurementOrdered By: Zelda Ibarra on 12-09-2024 ALT [Catalytic activity/Vol] 12 U/L Normal <=34 [facility] Comment on above: Hemolysis present, R esults could be affected. Order Comment: Call with results STAT Result Comment: Hemo lysis present, Results??could be affected.?? Performed By: #### L 500.4050, L500.2500 ####[facility] [address] [place], [address] Serum or plasma albumin jn urement (mass/volume)Ordered By: Zelda Ibarra on 12-09-2024 Albumin [Mass/Vol] 3.8 g/dL Normal 3.4-4.[address] [facility] Comment on above: Order Comment: Call with results STAT Performed By: #### L 500.4050, L500.2500 ####[facility] [address] [facility] [address] Serum or plasma albumin/glob ulin mass ratioOrdered By: Zelda Ibarra on 12-09-2024 Albumin/Globulin [Mass ratio] 1.4 {ratio} Normal 0.9-2.4 [facility] Comment on above: Order Comment: Call with results STAT Performed By: #### L 500.4050, L500.2500 ####[facility] [address] [place], [address] Serum or plasma alkaline regis sphatase measurementOrdered By: Zelda Fred on 12-09-2024 ALP [Catalytic activity/Vol] 87 U/L 35-104 [facility] Total proteinOrdered By: Charly missy Ibarra on 12-09-2024 Protein [Mass/Vol] 6.6 g/dL 5.9-8.[address] [facility] Abdomen/Pelvis W IV Cont ONL Yon 12-08-2024 Abdomen/Pelvis W IV Cont ONLY Normal [facility] Absolute lymphocyte countOrd ered By: Miki Sen on 12-08-2024 Lymphocytes Auto (Unsp spec) [#/Vol] 1.80 10*3/uL 0.83-4.51 [facility] Absolute neutrophil countOrd ered By: Miki Sen on 12-08-2024 Neutrophils (Bld) [#/Vol] 5.4 10*3/uL 2.0-7.7 [facility] Anion gap in Serum or Plasma Ordered By: Miki Sen on 12-08-2024 Anion gap [Moles/Vol] 26 mmol/L High 5-15 [facility] Automated blood erythrocyte countOrdered By: Miki Sen on 12-08-2024 RBC (Bld) [#/Vol] 3.72 10*6/uL Low 4.2-5.4 [facility] Comment on above: Performed By: #### L 501.2450, L500.4050, L501.6901, L100.0100 ####[facility] [address] [place], [place], [id number] Automated blood hematocrit ( percentage)Ordered By: Miki Sen on 12-08-2024 Hematocrit (Bld) [Volume fraction] 32.5 % Low 37-47 [facility] Comment on above: Performed By: #### L 501.2450, L500.4050, L501.6901, L100.0100 ####[facility] [address] [place], [address] Automated lymphocyte count a s percentage of total leukocytesOrdered By: Miki Sen on 12-08-2024 Lymphocytes/100 WBC Auto (Unsp spec) 22.8 % 19-41 [facility] BUN/creatinine ratioOrdered By: Miki Sen on 12-08-2024 Urea nitrogen/Creatinine [Mass ratio] 19.5 mg/mg 10-20 [facility] Basophil percentageOrdered B y: Miki Sen on 12-08-2024 Basophils/100 WBC (Bld) 0.6 % Normal 0-1 [facility] Comment on above: Performed By: #### L 501.2450, L500.4050, L501.6901, L100.0100 ####[facility] [address] [place], [address] Bedside Glucoseon 12-08-2024 FINGERSTICK GLU 231 mg/dL High [address] [place] [address] Comment on above: Result Comment: MARIA D GEMENT OF PATIENT CARE PER NURSING PROTOCOL Performed By: #### L 501.080 ####[facility] [address] [place], [address] FINGERSTICK GLU 380 mg/dL High [address] [place] [address] Comment on above: Result Comment: MARIA D GEMENT OF PATIENT CARE PER NURSING PROTOCOL Performed By: #### L 501.080 ####[facility] [address] [place], [address] FINGERSTICK GLU 491 mg/dL Invalid Interpretation Code [address] [place] [address] Comment on above: Result Comment: Dr Lois cooney FollowedMANAGEMENT OF PATIENT CARE PER NURSING PROTOCOL Performed By: #### L 501.080 ####[facility] [address] [place], [address] FINGERSTICK GLU > 500 Invalid Interpretation Code [address] [place] [address] Comment on above: Result Comment: MARIA D GEMENT OF PATIENT CARE PER NURSING PROTOCOL Performed By: #### L 501.080 ####[facility] [address] [place], [address] Beta-Hydroxbytyrateon 2024 BETA-HYDROXYBUT 7.9 mmol/L High 0.0-0.3 [facility] Comment on above: Performed By: #### L 501.2450, L500.4050, L501.6901, L100.0100 ####[facility] [address] [place], [address] Beta-hydroxybutyrateOrdered By: Miki Sen on 12-08-2024 Beta hydroxybutyrate [Mass/Vol] 7.9 mmol/L High 0.0-0.3 [facility] Bilirubin Test strip Ql (U)O rdered By: Miki Sen on 12-08-2024 Bilirubin Ql (U) Negative Negative [facility] Bilirubin, totalOrdered By: Miki Sen on 12-08-2024 Bilirubin [Mass/Vol] 0.25 mg/dL Normal 0.00-1.30 [facility] Comment on above: Performed By: #### L 501.2450, L500.4050, L501.6901, L100.0100 ####[facility] [address] [place], [address] CBC W/Diff, Automatedon Absolute Lymph 1.80 X10 3/uL Normal 0.83-4.51 [facility] Comment on above: Performed By: #### L 501.2450, L500.4050, L501.6901, L100.0100 ####[facility] [address] [place], [address] Absolute Neut 5.4 X10 3/uL Normal 2.0-7.7 [facility] Comment on above: Performed By: #### L 501.2450, L500.4050, L501.6901, L100.0100 ####[facility] [address] [place], [address] IG% 0.300 Normal 0.0-0.9 [facility] Comment on above: Result Comment: IG% - Immature Granulocytes (promyelocytes, myelocytes andmetamyelocytes) > 1% indicates that a LEFT SHIFT is Present. Performed By: #### L 501.2450, L500.4050, L501.6901, L100.0100 ####[facility] [address] [place], [address] Lymphocytes/100 WBC (Bld) 22.8 % Normal 19-41 [facility] Comment on above: Performed By: #### L 501.2450, L500.4050, L501.6901, L100.0100 ####[facility] [address] [place], [address] Nucleated RBC (Bld) [#/Vol] 0 10*3/uL Normal 0-5 [facility] Comment on above: Performed By: #### L 501.2450, L500.4050, L501.6901, L100.0100 ####[facility] [address] [place], [address] RDW SD 39.8 fl Normal 35.1-43.9 [facility] Comment on above: Performed By: #### L 501.2450, L500.4050, L501.6901, L100.0100 ####[facility] [address] [place], [address] CO2 (BldV) [Moles/Vol]Ordere d By: Miki Sen on 12-08-2024 CO2 [Moles/Vol] 14 mmol/L Low 23-33 [facility] Carbon dioxide, total [Moles /volume] in Central venous bloodOrdered By: Miki Sen on 12-08-2024 CO2 [Moles/Vol] 12.2 mmol/L Low 21.0-32.0 [facility] Comment on above: Performed By: #### L 501.2450, L500.4050, L501.6901, L100.0100 ####[facility] [address] [place], [address] Chloride assayOrdered By: Seng Sen on 12-08-2024 Chloride [Moles/Vol] 90 mmol/L Low 98-108 [facility] Comment on above: Performed By: #### L 501.2450, L500.4050, L501.6901, L100.0100 ####[facility] [address] [place], [address] Comprehensive Metabolic Prof ilon 12-08-2024 ALK PHOS 108 U/L High 35-104 [facility] Comment on above: Performed By: #### L 501.2450, L500.4050, L501.6901, L100.0100 ####[facility] [address] [place], [address] BUN/CRE 19.5 RATIO Normal 10-20 [facility] Comment on above: Performed By: #### L 501.2450, L500.4050, L501.6901, L100.0100 ####[facility] [address] [place], [address] ECRCL 35.48 ml/min Low 50-250 [facility] Comment on above: Performed By: #### L 501.2450, L500.4050, L501.6901, L100.0100 ####[facility] [address] [place], [address] GAP 26 High 5-15 [facility] Comment on above: Performed By: #### L 501.2450, L500.4050, L501.6901, L100.0100 ####[facility] [address] [place], [address] Potassium [Moles/Vol] 4.9 mmol/L Normal 3.3-5.1 [facility] Comment on above: Performed By: #### L 501.2450, L500.4050, L501.6901, L100.0100 ####[facility] [address] [place], [address] T PROT 7.5 g/dL Normal 5.9-8.4 [facility] Comment on above: Performed By: #### L 501.2450, L500.4050, L501.6901, L100.0100 ####[facility] [address] [place], [place], [id number] Comprehensive Metabolic Prof ilOrdered By: Miki Sen on 12-08-2024 AST [Catalytic activity/Vol] 13 U/L Normal <=31 [facility] Comment on above: Performed By: #### L 501.2450, L500.4050, L501.6901, L100.0100 ####[facility] [address] [place], [address] Emergency Department Summary on 12-08-2024 Emergency Department Summary Normal [facility] Eosinophil percentageOrdered By: Miki Sen on 12-08-2024 Eosinophils/100 WBC (Bld) 0.9 % Normal 0-5 [facility] Comment on above: Performed By: #### L 501.2450, L500.4050, L501.6901, L100.0100 ####[facility] [address] [place], [place], [address] Erythrocyte distribution wid th ratioOrdered By: Miki Sen on 12-08-2024 Erythrocyte distribution width (RBC) [Ratio] 12.5 % Normal 11.6-14.6 [facility] Comment on above: Performed By: #### L 501.2450, L500.4050, L501.6901, L100.0100 ####[facility] [address] [place], [address] Erythrocyte distribution wid th standard deviationOrdered By: Miki Sen on 12-08-2024 Erythrocyte distribution width (RBC) [Ratio] 39.8 fl 35.1-43.9 [facility] Glomerular filtration rate ( GFR) estimation/1.73 sq m using serum, plasma, or whole bOrdered By: Miki Sen on 12-08-2024 GFR/1.73 sq M.predicted among non-blacks MDRD (S/P/Bld) [Vol rate/Area] 44 mL/min/{1.73_m2} Low >60 [facility] Comment on above: mL/min/1.73m2 CKD-EP I Creatinine Equation (2020) Result Comment: mL/m in/1.73m2 CKD-EPI Creatinine Equation (2020) Performed By: #### L 501.2450, L500.4050, L501.6901, L100.0100 ####[facility] [address] [place], [address] Gl[facility] at [facility] deOrdered By: Miki Sen on 12-08-2024 Glucose [Mass/Vol] 231 mg/dL High 74-[address] [facility] Comment on above: MANAGEMENT OF PATIEN T CARE PER NURSING PROTOCOL Hemoglobin measurementOrdere d By: Miki Sen on 12-08-2024 Hemoglobin (Bld) [Mass/Vol] 11.0 g/dL Low 12.0-15.0 [facility] Comment on above: Performed By: #### L 501.2450, L500.4050, L501.6901, L100.0100 ####[facility] [address] [place], [address] Immature granulocytes/100 WB C Auto (Bld)Ordered By: Miki Sen on 12-08-2024 Immature granulocytes/100 WBC (Bld) 0.300 % 0.0-0.9 [facility] Comment on above: IG% - Immature Granu locytes (promyelocytes, myelocytes and metamyelocytes) > 1% indicates that a LEFT SHIFT is Present. Ketones Test strip Ql (U)Ord ered By: Miki Sen on 12-08-2024 Ketones Ql (U) 150 mg/dl Abnormal Negative [facility] Comment on above: CRITICAL VALUE *HRES ULTS CALLED TO LSPARR 12/08/24 2245 Daniela Seth.REPORT READ BACK BY SAME. Lipase measurementOrdered By : Miki Sen on 12-08-2024 Lipase [Catalytic activity/Vol] 49 U/L Normal 13-75 [facility] Comment on above: Please note:LIPASE r [...] By: #### L 501.2450, L500.4050, L501.6901, L100.0100 ####[facility] [address] [place], [address] MCV (mean corpuscular volume ) determinationOrdered By: Miki Sen on 12-08-2024 MCV (RBC) [Entitic vol] 87.4 fL Normal 81-99 [facility] Comment on above: Performed By: #### L 501.2450, L500.4050, L501.6901, L100.0100 ####[facility] [address] [place], [address] Magnesium measurement (mass/ volume)Ordered By: Zelda Ibarra on 12-08-2024 Magnesium (Unsp spec) [Mass/Vol] 2.2 mg/dL 1.5-2.2 [facility] Mean corpuscular hemoglobin (MCH) determinationOrdered By: Miki Sen on 12-08-2024 MCH (RBC) [Entitic mass] 29.6 pg Normal 27.0-32.0 [facility] Comment on above: Performed By: #### L 501.2450, L500.4050, L501.6901, L100.0100 ####[facility] [address] [place], [address] Mean corpuscular hemoglobin concentration (MCHC) determinationOrdered By: Miki Sen on 12-08-2024 MCHC (RBC) [Mass/Vol] 33.8 g/dL Normal 32-36 [facility] Comment on above: Performed By: #### L 501.2450, L500.4050, L501.6901, L100.0100 ####[facility] [address] [place], [place], [address] Mean platelet volume determi nationOrdered By: Miki Sen on 12-08-2024 Platelet mean volume (Bld) [Entitic vol] 12.8 fL High 6.2-12.0 [facility] Comment on above: Performed By: #### L 501.2450, L500.4050, L501.6901, L100.0100 ####[facility] [address] [place], [address] Microscopic analysis of urin e for red blood cells (RBC)Ordered By: Miki Sen on 12-08-2024 Microscopic analysis of urine for red blood cells (RBC) 0 SEEN /hpf 0-5 [facility] Monocyte percentageOrdered B y: Miki Sen on 12-08-2024 Monocytes/100 WBC (Bld) 7.7 % Normal 0-10 [facility] Comment on above: Performed By: #### L 501.2450, L500.4050, L501.6901, L100.0100 ####[facility] [address] [place], [place], [address] Mucus LM Ql (Urine sed)Order ed By: Miki Sen on 12-08-2024 Mucus Ql (Urine sed) 0 SEEN /hpf [facility] Neutrophil percentageOrdered By: Miki Sen on 12-08-2024 Neutrophils/100 WBC (Bld) 67.7 % Normal 47-70 [facility] Comment on above: Performed By: #### L 501.2450, L500.4050, L501.6901, L100.0100 ####[facility] [address] [place], [place], [address] Nitrite Test strip Ql (U)Ord ered By: Miki Sen on 12-08-2024 Nitrite Ql (U) Negative Negative [facility] No Panel InformationOrdered By: Miki Sen on 12-08-2024 Blood Gas Sample Site Not entered [facility] Blood Gas Specimen Type LIZY [facility] Oxygen Delivery Device Not entered [facility] Nucleated red blood cell per centageOrdered By: Miki Sen on 12-08-2024 Nucleated RBC/100 WBC (Bld) [Ratio] 0 % 0-5 [facility] Platelet countOrdered By: Seng Sen on 12-08-2024 Platelets (Bld) [#/Vol] 230 10*3/uL Normal 150-450 [facility] Comment on above: Performed By: #### L 501.2450, L500.4050, L501.6901, L100.0100 ####[facility] [address] [place], [address] Potassium measurement (mass/ volume)Ordered By: Miki Sen on 12-08-2024 Potassium (Unsp spec) [Mass/Vol] 4.9 mmol/L 3.3-5.1 [facility] Protein Test strip Ql (U)Ord ered By: Miki Sen on 12-08-2024 Protein Ql (U) 30 mg/dl High Negative [facility] Serum creatinine measurement (mass/volume)Ordered By: Miki Sen on 12-08-2024 Creatinine [Mass/Vol] 1.36 mg/dL High 0.70-1.20 [facility] Comment on above: Performed By: #### L 501.2450, L500.4050, L501.6901, L100.0100 ####[facility] [address] [place], [address] Serum globulin measurementOr dered By: Miki Sen on 12-08-2024 Globulin (S) [Mass/Vol] 3.2 g/dL Normal 2.2-4.2 [facility] Comment on above: Performed By: #### L 501.2450, L500.4050, L501.6901, L100.0100 ####[facility] [address] [place], [place], [address] Serum glucose measurement (m ass/volume)Ordered By: Miki Sen on 12-08-2024 Glucose [Mass/Vol] 592 mg/dL Invalid Interpretation Code 70-99 [facility] Comment on above: Critical Result(s) C alled at: 6 by: RANI MELISSA TO APOLONIA SPARR Results read back by same. Result Comment: Crit ical Result(s) Called at: 6 by: RANI MELISSA TO UMAIRPARR??Results read back by same. Performed By: #### L 501.2450, L500.4050, L501.6901, L100.0100 ####[facility] [address] [place], [place], [phone] Serum or plasma alanine hargrove otransferase (ALT) measurementOrdered By: Miki Sen on 12-08-2024 ALT [Catalytic activity/Vol] 14 U/L Normal <=34 [facility] Comment on above: Performed By: #### L 501.2450, L500.4050, L501.6901, L100.0100 ####[facility] [address] [place], [address] Serum or plasma albumin jn urement (mass/volume)Ordered By: Miki Sen on 12-08-2024 Albumin [Mass/Vol] 4.3 g/dL Normal 3.4-4.[address] [facility] Comment on above: Performed By: #### L 501.2450, L500.4050, L501.6901, L100.0100 ####[facility] [address] [place], [address] Serum or plasma albumin/glob ulin mass ratioOrdered By: Miki Sen on 12-08-2024 Albumin/Globulin [Mass ratio] 1.4 {ratio} Normal 0.9-2.4 [facility] Comment on above: Performed By: #### L 501.2450, L500.4050, L501.6901, L100.0100 ####[facility] [address] [place], [address] Serum or plasma alkaline regis sphatase measurementOrdered By: Miki Sen on 12-08-2024 ALP [Catalytic activity/Vol] 108 U/L High 35-104 [facility] Serum or plasma calcium jn urement (mass/volume)Ordered By: Miki Sen on 12-08-2024 Calcium [Mass/Vol] 9.7 mg/dL Normal 7.6-11.[address] [facility] Comment on above: Performed By: #### L 501.2450, L500.4050, L501.6901, L100.0100 ####[facility] [address] [place], [address] Serum or plasma urea nitroge n measurement (mass/volume)Ordered By: Miki Sen on 12-08-2024 Urea nitrogen [Mass/Vol] 27 mg/dL High 4-19 [facility] Comment on above: Performed By: #### L 501.2450, L500.4050, L501.6901, L100.0100 ####[facility] [address] [place], [address] Sodium levelOrdered By: Sharita Sen on 12-08-2024 Sodium [Moles/Vol] 128 mmol/L Low 133-[address] [facility] Comment on above: Performed By: #### L 501.2450, L500.4050, L501.6901, L100.0100 ####[facility] [address] [place], [address] Squamous epithelial cells de tection in urine sediment by light microscopyOrdered By: Miki Sen on 12-08-2024 Epithelial cells.squamous LM Ql (Urine sed) 0 SEEN /hpf 5-10 [facility] Total proteinOrdered By: King Sen on 12-08-2024 Protein [Mass/Vol] 7.5 g/dL 5.9-8.[address] [facility] Urinalysis, Completeon 06-04 -2025 BACTERIA 0 SEEN Normal None Seen [facility] Comment on above: Order Comment: CLEAN CATCH Performed By: #### L 400.0001 ####[facility] [address] [place], [address] EPI,SQUAMOUS 0 SEEN Normal 5-10 [facility] Comment on above: Order Comment: CLEAN CATCH Performed By: #### L 400.0001 ####[facility] [address] [place], [address] Mucus Ql (Urine sed) 0 SEEN Normal [facility] Comment on above: Order Comment: CLEAN CATCH Performed By: #### L 400.0001 ####[facility] [address] [place], [address] RBC 0 SEEN Normal 0-5 [facility] Comment on above: Order Comment: CLEAN CATCH Performed By: #### L 400.0001 ####[facility] [address] [place], [address] WBC 0 SEEN Normal 0-5 [facility] Comment on above: Order Comment: CLEAN CATCH Performed By: #### L 400.0001 ####[facility] [address] [place], [address] Urine clarityOrdered By: King Sen on 12-08-2024 Clarity (U) Clear Clear [facility] Urine color determinationOrd ered By: Miki Sen on 12-08-2024 Color (U) Yellow Yellow [facility] Urine glucose detectionOrder ed By: Miki Sen on 12-08-2024 Glucose Ql (U) 1000 mg/dl High Normal [facility] Urine leukocyte esterase det ection by dipstickOrdered By: Miki Sen on 12-08-2024 Leukocyte esterase Test strip Ql (U) Negative Negative [facility] Urine pHOrdered By: Miki lieberman on 12-08-2024 pH (U) 6.0 [pH] 5.0 - 8.0 [facility] Urine sediment bacteria coun t by microscopy (number/high power field)Ordered By: Miki Sen on 12-08-2024 Bacteria LM.HPF (Urine sed) [#/Area] 0 /[HPF] None Seen [facility] Urine specific gravity measu rementOrdered By: Miki Sen on 12-08-2024 Specific gravity (U) [Rel density] 1.015 1.002-1.030 [facility] Urine urobilinogen measureme ntOrdered By: Miki Sen on 12-08-2024 Urobilinogen Ql (U) Normal mg/dl Normal [facility] Venous Blood Gason Blood Gas Type LIZY Normal [facility] Comment on above: Performed By: #### L 9000.0810 ####[facility] [address] [place], [address] CO2 [Moles/Vol] 14 mmol/L Low 23-33 [facility] Comment on above: Performed By: #### L 9000.0810 ####[facility] [address] [place], [address] HCO3 (Bld) [Moles/Vol] 13 mmol/L Low 22-26 [facility] Comment on above: Performed By: #### L 9000.0810 ####[facility] [address] [place], [address] O2 Delivery Dev Not entered Normal [facility] Comment on above: Performed By: #### L 9000.0810 ####[facility] [address] [place], [address] SITE Not entered Normal [facility] Comment on above: Performed By: #### L 9000.0810 ####[facility] [address] [place], [address] VBG BE -15 mmol/L Low -1.0-3.5 [facility] Comment on above: Performed By: #### L 9000.0810 ####[facility] [address] [place], [address] VBG pCO2 31.1 mmHg Low 41-51 [facility] Comment on above: Performed By: #### L 9000.0810 ####[facility] [address] [place], [place], [address] VBG pH 7.21 Low 7.32-7.42 [facility] Comment on above: Performed By: #### L 9000.0810 ####[facility] [address] [place], [place], [address] VBG PO2 31 mmHg Normal 25-40 [facility] Comment on above: Performed By: #### L 9000.0810 ####[facility] [address] [place], [place], [address] VBG SO2 47 Low 50-70 [facility] Comment on above: Performed By: #### L 9000.0810 ####[facility] [address] [place], [place], [address] Venous blood base excess tristan surementOrdered By: Miki Sen on 12-08-2024 Base excess Calc (BldV) [Moles/Vol] -15 mmol/L Low -1.0-3.5 [facility] Venous blood bicarbonate tristan surementOrdered By: Miki Sen on 12-08-2024 HCO3 (Bld) [Moles/Vol] 13 mmol/L Low 22-26 [facility] Venous blood oxygen saturati on measurementOrdered By: Miki Sen on 12-08-2024 Oxygen saturation in Blood 47 % Low 50-70 [facility] Venous blood pH measurementO rdered By: Miki Sen on 12-08-2024 pH (BldV) 7.21 [pH] Low 7.32-7.42 [facility] Venous blood partial pressur e of carbon dioxide measurementOrdered By: Miki Sen on 12-08-2024 CO2 (BldV) [Partial pressure] 31.1 mm[Hg] Low 41-51 [facility] Venous blood partial pressur e of oxygen measurementOrdered By: Miki Sen on 12-08-2024 Oxygen (BldV) [Partial pressure] 31 mm[Hg] 25-40 [facility] White blood cell (WBC) count Ordered By: Miki Sen on 12-08-2024 WBC (Bld) [#/Vol] 7.9 10*3/uL Normal 4.4-11.[address] [facility] Comment on above: Performed By: #### L 501.2450, L500.4050, L501.6901, L100.0100 ####[facility] [address] [place], [address] White blood cell countOrdere d By: Miki Sen on 12-08-2024 White blood cell count 0 SEEN /hpf 0-5 [facility] Albumin DL <= 20 mg/L (U) [M ass/Vol]Ordered By: Milind Lamb on 10-18-2024 Urine Random Microalbumin 34.1 mg/L NO RANGE EST. [facility] Anion gap in Serum or Plasma Ordered By: Milind Lamb on 10-18-2024 Anion gap [Moles/Vol] 14 mmol/L 5-15 [facility] BUN/creatinine ratioOrdered By: Milind Lamb on 10-18-2024 Urea nitrogen/Creatinine [Mass ratio] 12.4 mg/mg 10-20 [facility] Bilirubin, totalOrdered By: Milind Lamb on 10-18-2024 Bilirubin [Mass/Vol] 0.28 mg/dL 0.00-1.30 [facility] Calculated very low density lipoprotein (VLDL) cholesterol measurementOrdered By: Milind Lamb on 10-18-2024 Calculated very low density lipoprotein (VLDL) cholesterol measurement 23 mg/dL 5-40 [facility] VLDL Cholesterol 23 mg/dL 5-40 [facility] Carbon dioxide, total [Moles /volume] in Central venous bloodOrdered By: Milind Lamb on 10-18-2024 CO2 [Moles/Vol] 23.5 mmol/L 21.0-32.0 [facility] Chloride assayOrdered By: Pankaj Lamb on 10-18-2024 Chloride [Moles/Vol] 100 mmol/L 98-108 [facility] Comprehensive Metabolic Prof ilon 10-18-2024 Albumin [Mass/Vol] 4.7 g/dL Normal 3.4-4.[address] [facility] Comment on above: Performed By: #### L 500.4050, L502.0250, L500.4100 ####[facility] [address] [place], [address] Albumin/Globulin [Mass ratio] 1.4 {ratio} Normal 0.9-2.4 [facility] Comment on above: Performed By: #### L 500.4050, L502.0250, L500.4100 ####[facility] [address] [place], [address] ALK PHOS 94 U/L Normal 35-104 [facility] Comment on above: Performed By: #### L 500.4050, L502.0250, L500.4100 ####[facility] [address] [place], [address] ALT [Catalytic activity/Vol] 10 U/L Normal <=34 [facility] Comment on above: Performed By: #### L 500.4050, L502.0250, L500.4100 ####[facility] [address] [place], [address] AST [Catalytic activity/Vol] 13 U/L Normal <=31 [facility] Comment on above: Performed By: #### L 500.4050, L502.0250, L500.4100 ####[facility] [address] [place], [address] Bilirubin [Mass/Vol] 0.28 mg/dL Normal 0.00-1.30 [facility] Comment on above: Performed By: #### L 500.4050, L502.0250, L500.4100 ####[facility] [address] [place], [address] BUN/CRE 12.4 RATIO Normal 10-20 [facility] Comment on above: Performed By: #### L 500.4050, L502.0250, L500.4100 ####[facility] [address] [place], [address] Calcium [Mass/Vol] 10.3 mg/dL Normal 7.6-11.[address] [facility] Comment on above: Performed By: #### L 500.4050, L502.0250, L500.4100 ####[facility] [address] [place], [address] Chloride [Moles/Vol] 100 mmol/L Normal 98-108 [facility] Comment on above: Performed By: #### L 500.4050, L502.0250, L500.4100 ####[facility] [address] [place], [address] CO2 [Moles/Vol] 23.5 mmol/L Normal 21.0-32.0 [facility] Comment on above: Performed By: #### L 500.4050, L502.0250, L500.4100 ####[facility] [address] [place], [address] Creatinine [Mass/Vol] 0.94 mg/dL Normal 0.70-1.20 [facility] Comment on above: Performed By: #### L 500.4050, L502.0250, L500.4100 ####[facility] [address] [place], [address] GAP 14 Normal 5-15 [facility] Comment on above: Performed By: #### L 500.4050, L502.0250, L500.4100 ####[facility] [address] [place], [address] GFR/1.73 sq M.predicted among non-blacks MDRD (S/P/Bld) [Vol rate/Area] 68 mL/min/{1.73_m2} Normal >60 [facility] Comment on above: Result Comment: mL/m in/1.73m2 CKD-EPI Creatinine Equation (2020) Performed By: #### L 500.4050, L502.0250, L500.4100 ####[facility] [address] [place], [address] Globulin (S) [Mass/Vol] 3.3 g/dL Normal 2.2-4.2 [facility] Comment on above: Performed By: #### L 500.4050, L502.0250, L500.4100 ####[facility] [address] [place], [address] Glucose [Mass/Vol] 213 mg/dL High 70-[address] [facility] Comment on above: Performed By: #### L 500.4050, L502.0250, L500.4100 ####[facility] [address] [place], [address] Potassium [Moles/Vol] 4.1 mmol/L Normal 3.3-5.1 [facility] Comment on above: Performed By: #### L 500.4050, L502.0250, L500.4100 ####[facility] [address] [place], [address] Sodium [Moles/Vol] 137 mmol/L Normal 133-[address] [facility] Comment on above: Performed By: #### L 500.4050, L502.0250, L500.4100 ####[facility] [address] [place], [address] T PROT 8.1 g/dL Normal 5.9-8.4 [facility] Comment on above: Performed By: #### L 500.4050, L502.0250, L500.4100 ####[facility] [address] [place], [address] Urea nitrogen [Mass/Vol] 12 mg/dL Normal 4-19 [facility] Comment on above: Performed By: #### L 500.4050, L502.0250, L500.4100 ####[facility] [address] [place], [address] Creatinine Unsp time (U) [Ma ss/Vol]Ordered By: Milind Lamb on 10-18-2024 Creatinine (U) [Mass/Vol] 168.00 mg/dL 28.00-217.0 0 [facility] GFR/1.73 sq M.predicted raoul g non-blacks MDRD (S/P/Bld) [Vol rate/Area]Ordered By: Milind Lamb on 10-18-2024 Estimated GFR (MDRD) Non-Af Amer 68 >60 [facility] Comment on above: mL/min/1.73m2 CKD-EP I Creatinine Equation (2020) Glomerular filtration rate ( GFR) estimation/1.73 sq m using serum, plasma, or whole bOrdered By: Milind Lamb on 10-18-2024 GFR/1.73 sq M.predicted among non-blacks MDRD (S/P/Bld) [Vol rate/Area] 68 mL/min/{1.73_m2} >60 [facility] Comment on above: mL/min/1.73m2 CKD-EP I Creatinine Equation (2020) LDL calc ser/plasOrdered By: Milind Lamb on 10-18-2024 Cholesterol in LDL [Mass/Vol] 136 mg/dL [facility] Comment on above: Cslmenjnzf=322-787 m g/dL & Higher Zupd=011 mg/dL or greater LDL Cholesterol, Calculated 136 mg/dL [facility] Comment on above: Nuwgfcukxl=718-516 m g/dL & Higher Ddga=867 mg/dL or greater Laboratory - Chemistry and C hemistry - challengeOrdered By: Milind Lamb on 10-18-2024 AST [Catalytic activity/Vol] 13 U/L <32 [facility] Lipid Profileon 10-18-2024 CHOL:HDL 3.13 Normal [facility] Comment on above: Performed By: #### L 500.4050, L502.0250, L500.4100 ####[facility] [address] [place], [address] Cholesterol [Mass/Vol] 233 mg/dL High <=200 [facility] Comment on above: Result Comment: Chol esterol level, Desirable <200 mg/dLBorderline high cholesterol 200-239 mg/dLHigh cholesterol >=240 mg/dLRecommendations of the NCEP Adult Treatment Panel for thefollowing risk-cutoff thresholds for the [place] [employer]. Performed By: #### L 500.4050, L502.0250, L500.4100 ####[facility] [address] [place], [address] Cholesterol in HDL [Mass/Vol] 74 mg/dL Normal [facility] Comment on above: Result Comment: Kamila onal Cholesterol Education Program (NCEP) guidelines:<40 mg/dL: Low HDL-cholesterol (major risk factor for CHD)>= 60 mg/dL: High HDL-cholesterol (negative risk factor forCHD)HDL-cholesterol is affected by a number of factors, e.g.smoking, exercise, hormones, sex and age. Performed By: #### L 500.4050, L502.0250, L500.4100 ####[facility] [address] [place], [address] Cholesterol in LDL [Mass/Vol] 136 mg/dL Normal [facility] Comment on above: Result Comment: Bord vfwikt=596-067 mg/dL Higher Isvm=832 mg/dL or greater Performed By: #### L 500.4050, L502.0250, L500.4100 ####[facility] [address] [place], [address] Cholesterol in VLDL [Mass/Vol] 23 mg/dL Normal 5-40 [facility] Comment on above: Performed By: #### L 500.4050, L502.0250, L500.4100 ####[facility] [address] [place], [address] Triglyceride [Mass/Vol] 115 mg/dL Normal [facility] Comment on above: Result Comment: The drugs N-Acetylcysteine and Metamizole may falselydepress this assay.Normal range: <150 mg/dLBorderline High: 150-199 mg/dLHigh: 200-499 mg/dLVery High: >500 mg/dL Performed By: #### L 500.4050, L502.0250, L500.4100 ####[facility] [address] [place], [address] Microalbumin/creat ratio urO rdered By: Milind Lamb on 10-18-2024 Urine Microalbumin/Creatinine Ratio 203.0 mg/g CRE [facility] Potassium (Unsp spec) [Mass/ Vol]Ordered By: Milind Lamb on 10-18-2024 Potassium [Moles/Vol] 4.1 mmol/L 3.3-5.1 [facility] Potassium measurement (mass/ volume)Ordered By: Milind Lamb on 10-18-2024 Potassium (Unsp spec) [Mass/Vol] 4.1 mmol/L 3.3-5.1 [facility] Random urine creatinine jn urement (mass/volume)Ordered By: Milind Lamb on 10-18-2024 Creatinine Unsp time (U) [Mass/Vol] 168.00 mg/dL 28.00-217.0 0 [facility] Screening total cholesterol/ high density lipoprotein (HDL) cholesterol ratioOrdered By: Milind Lamb on 10-18-2024 Cholesterol.total/Misa sterol in HDL [Mass ratio] 3.13 {ratio} [facility] Serum creatinine measurement (mass/volume)Ordered By: Milind Lamb on 10-18-2024 Creatinine [Mass/Vol] 0.94 mg/dL 0.70-1.20 [facility] Serum globulin measurementOr dered By: Milind Lamb on 10-18-2024 Globulin (S) [Mass/Vol] 3.3 g/dL 2.2-4.2 [facility] Serum glucose measurement (m ass/volume)Ordered By: Milind Lamb on 10-18-2024 Glucose [Mass/Vol] 213 mg/dL High 70-[address] [facility] Serum or plasma alanine hargrove otransferase (ALT) measurementOrdered By: Milind Lamb on 10-18-2024 ALT [Catalytic activity/Vol] 10 U/L <35 [facility] Serum or plasma albumin jn urement (mass/volume)Ordered By: Milind Lamb on 10-18-2024 Albumin [Mass/Vol] 4.7 g/dL 3.4-4.[address] [facility] Serum or plasma albumin/glob ulin mass ratioOrdered By: Milind Lamb on 10-18-2024 Albumin/Globulin [Mass ratio] 1.4 {ratio} 0.9-2.4 [facility] Serum or plasma alkaline regis sphatase measurementOrdered By: Milind Lamb on 10-18-2024 ALP [Catalytic activity/Vol] 94 U/L 35-104 [facility] Serum or plasma calcium jn urement (mass/volume)Ordered By: Milind Lamb on 10-18-2024 Calcium [Mass/Vol] 10.3 mg/dL 7.6-11.[address] [facility] Serum or plasma cholesterol in HDL measurement (mass/volume)Ordered By: Milind Lamb on 10-18-2024 Cholesterol in HDL [Mass/Vol] 74 mg/dL >40 [facility] Comment on above: National Cholesterol Education Program (NCEP) guidelines:<40 mg/dL: Low HDL-cholesterol (major risk factor for CHD)>= 60 mg/dL: High HDL-cholesterol (negative risk factor for CHD)HDL-cholesterol is affected by a number of factors, e.g. smoking, exercise, hormones, sex and age. Serum or plasma cholesterol measurement (mass/volume)Ordered By: Milind Lamb on 10-18-2024 Cholesterol [Mass/Vol] 233 mg/dL High <201 [facility] Comment on above: Cholesterol level, D esirable <200 mg/dLBorderline high cholesterol 200-239 mg/dLHigh cholesterol >=240 mg/dLRecommendations of the NCEP Adult Treatment Panel for the following risk-cutoff thresholds for the [place] population. Serum or plasma urea nitroge n measurement (mass/volume)Ordered By: Milind Lamb on 10-18-2024 Urea nitrogen [Mass/Vol] 12 mg/dL 4-19 [facility] Sodium levelOrdered By: Milind Lamb on 10-18-2024 Sodium [Moles/Vol] 137 mmol/L 133-[address] [facility] Total proteinOrdered By: Bri Lamb on 10-18-2024 Protein [Mass/Vol] 8.1 g/dL 5.9-8.[address] [facility] Triglycerides measurementOrd ered By: Milind Lamb on 10-18-2024 Triglyceride [Mass/Vol] 115 mg/dL <199 [facility] Comment on above: The drugs N-Acetylcy steine and Metamizole may falsely depress this assay. Normal range: <150 mg/dLBorderline High: 150-199 mg/dLHigh: 200-499 mg/dLVery High: >500 mg/dL Urine albumin measurement wi detection limit of 20 mg/L or less (mass/volume)Ordered By: Milind Lamb on 10-18-2024 Albumin DL <= 20 mg/L (U) [Mass/Vol] 34.1 mg/L NO RANGE EST. [facility] Office Visit Reporton 2024 Office Visit Report Normal [facility] Albumin to globulin ratioOrd ered By: Milind Lamb on 07-20-2024 Albumin/Globulin [Mass ratio] 1.0 {ratio} 0.9-2.4 [facility] Bilirubin, totalOrdered By: Milind Lamb on 07-20-2024 Bilirubin [Mass/Vol] 0.50 mg/dL 0.20-1.00 [facility] Comment on above: For patients on eltr ombopag therapy, use of Dimension [place] TBIL is not recommended. Blood urea nitrogen (BUN)/cr eatinine ratioOrdered By: Milind Lamb on 07-20-2024 Urea nitrogen/Creatinine [Mass ratio] 23.7 mg/mg High 10-20 [facility] Carbon dioxide measurementOr dered By: Milind Lamb on 07-20-2024 CO2 [Moles/Vol] 29.0 mmol/L 21.0-32.0 [facility] Chloride measurementOrdered By: Milind Lamb on 07-20-2024 Chloride [Moles/Vol] 104 mmol/L 98-107 [facility] Comprehensive Metabolic Prof ilon 07-20-2024 Albumin [Mass/Vol] 3.7 g/dL Normal 3.2-5.[address] [facility] Comment on above: Performed By: #### L 500.4100, L500.4050, L501.0900, L501.9985 ####[facility] [address] [place], [address] Albumin/Globulin [Mass ratio] 1.0 {ratio} Normal 0.9-2.4 [facility] Comment on above: Performed By: #### L 500.4100, L500.4050, L501.0900, L501.9985 ####[facility] [address] [place], [address] ALK P 91 U/L Normal 45-117 [facility] Comment on above: Performed By: #### L 500.4100, L500.4050, L501.0900, L501.9985 ####[facility] [address] [place], [address] ALT [Catalytic activity/Vol] 11 U/L Low 13-56 [facility] Comment on above: Performed By: #### L 500.4100, L500.4050, L501.0900, L501.9985 ####[facility] [address] [place], [address] AST [Catalytic activity/Vol] 4 U/L Low 15-37 [facility] Comment on above: Performed By: #### L 500.4100, L500.4050, L501.0900, L501.9985 ####[facility] [address] [place], [address] Bilirubin [Mass/Vol] 0.50 mg/dL Normal 0.20-1.00 [facility] Comment on above: Result Comment: For patients on eltrombopag therapy, use of Dimension [place] TBIL is not recommended. Performed By: #### L 500.4100, L500.4050, L501.0900, L501.9985 ####[facility] [address] [place], [address] BUN/CRE 23.7 RATIO High 10-20 [facility] Comment on above: Performed By: #### L 500.4100, L500.4050, L501.0900, L501.9985 ####[facility] [address] [place], [address] CA,Total 10.2 mg/dL High 8.5-10.1 [facility] Comment on above: Performed By: #### L 500.4100, L500.4050, L501.0900, L501.9985 ####[facility] [address] [place], [address] Chloride [Moles/Vol] 104 mmol/L Normal 98-107 [facility] Comment on above: Performed By: #### L 500.4100, L500.4050, L501.0900, L501.9985 ####[facility] [address] [place], [address] CO2 [Moles/Vol] 29.0 mmol/L Normal 21.0-32.0 [facility] Comment on above: Performed By: #### L 500.4100, L500.4050, L501.0900, L501.9985 ####[facility] [address] [place], [address] Creatinine [Mass/Vol] 0.76 mg/dL Normal 0.55-1.02 [facility] Comment on above: Result Comment: The validity of the calculated GFR GFRAA in patients over70 years has not been determined. Clinical correlation isessential. Performed By: #### L 500.4100, L500.4050, L501.0900, L501.9985 ####[facility] [address] [place], [address] EST GFR - AA 99 mL/min Normal >60 [facility] Comment on above: Result Comment: Afri can [place]iqu[place] GFR Calc Performed By: #### L 500.4100, L500.4050, L501.0900, L501.9985 ####[facility] [address] [place], [address] GAP 5 Normal 5-15 [facility] Comment on above: Performed By: #### L 500.4100, L500.4050, L501.0900, L501.9985 ####[facility] [address] [place], [address] GFR/1.73 sq M.predicted among non-blacks MDRD (S/P/Bld) [Vol rate/Area] 82 mL/min/{1.73_m2} Normal >60 [facility] Comment on above: Result Comment: Non- GFR Calc Performed By: #### L 500.4100, L500.4050, L501.0900, L501.9985 ####[facility] [address] [place], [address] Globulin (S) [Mass/Vol] 3.8 g/dL Normal 2.2-4.2 [facility] Comment on above: Performed By: #### L 500.4100, L500.4050, L501.0900, L501.9985 ####[facility] [address] [place], [address] Glucose [Mass/Vol] 101 mg/dL Normal 74-[address] [facility] Comment on above: Result Comment: Fast ing Glucose result from 100 to 125 mg/dLsuggests IMPAIRED HOMEOSTASIS per A.D.A. criteria. Performed By: #### L 500.4100, L500.4050, L501.0900, L501.9985 ####[facility] [address] [place], [address] Potassium [Moles/Vol] 4.0 mmol/L Normal 3.5-5.1 [facility] Comment on above: Performed By: #### L 500.4100, L500.4050, L501.0900, L501.9985 ####[facility] [address] [place], [address] Sodium [Moles/Vol] 138 mmol/L Normal 136-[address] [facility] Comment on above: Performed By: #### L 500.4100, L500.4050, L501.0900, L501.9985 ####[facility] [address] [place], [address] T PROT 7.5 g/dL Normal 6.4-8.2 [facility] Comment on above: Performed By: #### L 500.4100, L500.4050, L501.0900, L501.9985 ####[facility] [address] [place], [address] Urea nitrogen [Mass/Vol] 18 mg/dL Normal 7-18 [facility] Comment on above: Performed By: #### L 500.4100, L500.4050, L501.0900, L501.9985 ####[facility] [address] [place], [address] Estimated glomerular filtrat ion rate (GFR) AmericanOrdered By: Milind Lamb on 07-20-2024 Estimated GFR (MDRD) Amer 99 mL/min >60 [facility] Comment on above: GFR Calc Glomerular filtration rate ( GFR) estimationOrdered By: Milind Lamb on 07-20-2024 Estimated GFR (MDRD) Non-Af Amer 82 mL/min >60 [facility] Comment on above: Non- GFR Calc Glucose measurementOrdered B y: Milind Lamb on 07-20-2024 Glucose [Mass/Vol] 101 mg/dL 74-[address] [facility] Comment on above: Fasting Glucose resu lt from 100 to 125 mg/dL suggests IMPAIRED HOMEOSTASIS per A.D.A. criteria. Hemoglobin A1con 07-20-2024 HbA1c (Bld) [Mass fraction] 12.6 % High 3.8-5.6 [facility] Comment on above: Result Comment: Norm al < 5.7 % Prediabetic 5.7 - 6.4 % Diabetic >or= 6.5 % Please note range changes. Performed By: #### L 500.4100, L500.4050, L501.0900, L501.9985 ####[facility] [address] [place], [place], [id number] Hemoglobin A1c percentageOrd ered By: Milind Lamb on 07-20-2024 HbA1c (Bld) [Mass fraction] 12.6 % High 3.8-5.6 [facility] Comment on above: Normal < 5.7 % Predi abetic 5.7 - 6.4 % Diabetic >or= 6.5 % Please note range changes. High density lipoprotein (HD L) measurementOrdered By: Milind Lamb on 07-20-2024 Cholesterol in HDL [Mass/Vol] 102 mg/dL >40 [facility] Comment on above: The drugs N-Acetylcy steine and Metamizole may falsely depress this assay. Reference Range HDL <40 mg/dL Low HDL Cholesterol HDL >or= 60 mg/dL High HDL Cholesterol Laboratory - Chemistry and C hemistry - challengeOrdered By: Milind Lamb on 07-20-2024 AST [Catalytic activity/Vol] 4 U/L Low 15-37 [facility] Lipid Profileon 07-20-2024 Cholesterol [Mass/Vol] 234 mg/dL High 200 [facility] Comment on above: Result Comment: <200 mg/dL Desirable 200-240 mg/dL Borderline >240 mg/dL High Risk Performed By: #### L 500.4100, L500.4050, L501.0900, L501.9985 ####[facility] [address] [place], [place], [id number] Cholesterol in HDL [Mass/Vol] 102 mg/dL Normal [facility] Comment on above: Result Comment: The drugs N-Acetylcysteine and Metamizole may falselydepress this assay. Reference Range HDL <40 mg/dL Low HDL Cholesterol HDL >or= 60 mg/dL High HDL Cholesterol Performed By: #### L 500.4100, L500.4050, L501.0900, L501.9985 ####[facility] [address] [place], [address] Cholesterol in LDL [Mass/Vol] 119 mg/dL Normal 0-130 [facility] Comment on above: Performed By: #### L 500.4100, L500.4050, L501.0900, L501.9985 ####[facility] [address] [place], [address] Cholesterol in VLDL [Mass/Vol] 13 mg/dL Normal 5-40 [facility] Comment on above: Performed By: #### L 500.4100, L500.4050, L501.0900, L501.9985 ####[facility] [address] [place], [address] Triglyceride [Mass/Vol] 63 mg/dL Normal [facility] Comment on above: Result Comment: The drugs N-Acetylcysteine and Metamizole may falselydepress this assay.Serum Triglycerides Reference Interval Normal <150 mg/dL Borderline high 150 - 199 mg/dL High 200 - 499 mg/dL Very High > or = 500 mg/dL Performed By: #### L 500.4100, L500.4050, L501.0900, L501.9985 ####[facility] [address] [place], [address] Low density lipoprotein (LDL ) cholesterol measurementOrdered By: Milind Lamb on 07-20-2024 Cholesterol in LDL [Mass/Vol] 119 mg/dL 0-130 [facility] Potassium measurementOrdered By: Milind Lamb on 07-20-2024 Potassium [Moles/Vol] 4.0 mmol/L 3.5-5.1 [facility] Protein+Creatinine Ratio,Uri neon 07-20-2024 PROT:CRE RATIO 218 mg/g CRE High 0-200 [facility] Comment on above: Performed By: #### L 500.4100, L500.4050, L501.0900, L501.9985 ####[facility] [address] [place], [address] Protein (U) [Mass/Vol] 11.8 mg/dL Normal <11.9 [facility] Comment on above: Performed By: #### L 500.4100, L500.4050, L501.0900, L501.9985 ####[facility] [address] [place], [address] UR CREAT 54.20 mg/dL Normal NO RANGE EST. [facility] Comment on above: Performed By: #### L 500.4100, L500.4050, L501.0900, L501.9985 ####[facility] [address] [place], [address] Protein/Creatinine (U) [Mass ratio]Ordered By: Milind Lamb on 07-20-2024 Urine Protein/Creatinine Ratio 218 mg/g CRE High 0-200 [facility] Random urine protein measure mentOrdered By: Milind Lamb on 07-20-2024 Protein (U) [Mass/Vol] 11.8 mg/dL 0.0-11.8 [facility] Serum anion gap measurementO rdered By: Milind Lamb on 07-20-2024 Anion gap [Moles/Vol] 5 mmol/L 5-15 [facility] Serum globulin measurementOr dered By: Milind Lamb on 07-20-2024 Globulin (S) [Mass/Vol] 3.8 g/dL 2.2-4.2 [facility] Serum or plasma alanine hargrove otransferase (ALT) measurementOrdered By: Milind Lamb on 07-20-2024 ALT [Catalytic activity/Vol] 11 U/L Low 13-56 [facility] Serum or plasma albumin jn urement (mass/volume)Ordered By: Milind Lamb on 07-20-2024 Albumin [Mass/Vol] 3.7 g/dL 3.2-5.[address] [facility] Serum or plasma alkaline regis sphatase measurementOrdered By: Milind Lamb on 07-20-2024 ALP [Catalytic activity/Vol] 91 U/L 45-117 [facility] Serum or plasma calcium jn urement (mass/volume)Ordered By: Milind Lamb on 07-20-2024 Calcium [Mass/Vol] 10.2 mg/dL High 8.5-10.[address] [facility] Serum or plasma cholesterol measurement (mass/volume)Ordered By: Milind Lamb on 07-20-2024 Cholesterol [Mass/Vol] 234 mg/dL High <200 [facility] Comment on above: <200 mg/dL Desirable 200-240 mg/dL Borderline >240 mg/dL High Risk Serum or plasma creatinine m easurement (mass/volume)Ordered By: Milind Lamb on 07-20-2024 Creatinine [Mass/Vol] 0.76 mg/dL 0.55-1.02 [facility] Comment on above: The validity of the calculated GFR & GFRAA in patients over 70 years has not been determined. Clinical correlation is essential. Serum or plasma urea nitroge n measurement (mass/volume)Ordered By: Mliind Lamb on 07-20-2024 Urea nitrogen [Mass/Vol] 18 mg/dL 7-18 [facility] Sodium levelOrdered By: Milind Lamb on 07-20-2024 Sodium [Moles/Vol] 138 mmol/L 136-[address] [facility] Total proteinOrdered By: Bri Lamb on 07-20-2024 Protein [Mass/Vol] 7.5 g/dL 6.4-8.[address] [facility] Triglycerides measurementOrd ered By: Milind Lamb on 07-20-2024 Triglyceride [Mass/Vol] 63 mg/dL <199 [facility] Comment on above: The drugs N-Acetylcy steine and Metamizole may falsely depress this assay.Serum Triglycerides Reference Interval Normal <150 mg/dL Borderline high 150 - 199 mg/dL High 200 - 499 mg/dL Very High > or = 500 mg/dL Urine creatinine measurement (mass/volume)Ordered By: Milind Lamb on 07-20-2024 Creatinine (U) [Mass/Vol] 54.20 mg/dL NO RANGE EST. [facility] Very low density lipoprotein (VLDL) cholesterol measurementOrdered By: Milind Lamb on 07-20-2024 VLDL Cholesterol 13 mg/dL -40 [facility] Venous Blood Gason 4 Blood Gas Type LIZY Normal [facility] Comment on above: Performed By: #### L 9000.0810 ####[facility] [address] [place], [address] CO2 [Moles/Vol] 17 mmol/L Low 23-33 [facility] Comment on above: Performed By: #### L 900.0810 ####[facility] [address] [place], [address] FI02 21.0 Normal [facility] Comment on above: Performed By: #### L 900.0810 ####[facility] [address] [place], [address] HCO3 (Bld) [Moles/Vol] 15 mmol/L Low 22-26 [facility] Comment on above: Performed By: #### L 900.0810 ####[facility] [address] [place], [address] O2 Delivery Dev Not entered Normal [facility] Comment on above: Performed By: #### L 9000.0810 ####[facility] [address] [place], [address] SITE Not entered Normal [facility] Comment on above: Performed By: #### L 9000.0810 ####[facility] [address] [place], [address] VBG BE -12 mmol/L Low -1.0-3.5 [facility] Comment on above: Performed By: #### L 9000.0810 ####[facility] [address] [place], [address] VBG pCO2 38.2 mmHg Low 41-51 [facility] Comment on above: Performed By: #### L 900.0810 ####[facility] [address] [place], [address] VBG pH 7.21 Low 7.32-7.42 [facility] Comment on above: Performed By: #### L 9000.0810 ####[facility] [address] [place], [address] VBG PO2 71 mmHg High 25-40 [facility] Comment on above: Performed By: #### L 9000.0810 ####[facility] [address] [place], [address] VBG SO2 90 High 50-70 [facility] Comment on above: Performed By: #### L 9000.0810 ####[facility] [address] [place], [address] Basic Metabolic Profile (BMP )on 05-11-2024 BUN Normal 7-18 [facility] Comment on above: Result Comment: Canc elled via OM: Order cancelled - Patient discharged Performed By: #### L 100.0100, L500.2500 ####[facility] [address] [place], [address] BUN/CRE Normal 10-20 [facility] Comment on above: Result Comment: Canc elled via OM: Order cancelled - Patient discharged Performed By: #### L 100.0100, L500.2500 ####[facility] [address] [place], [address] CA,Total Normal 8.5-10.1 [facility] Comment on above: Result Comment: Canc elled via OM: Order cancelled - Patient discharged Performed By: #### L 100.0100, L500.2500 ####[facility] [address] [place], [address] CL Normal 98-107 [facility] Comment on above: Result Comment: Canc elled via OM: Order cancelled - Patient discharged Performed By: #### L 100.0100, L500.2500 ####[facility] [address] [place], [address] CO2 Normal 21.0-32.0 [facility] Comment on above: Result Comment: Canc elled via OM: Order cancelled - Patient discharged Performed By: #### L 100.0100, L500.2500 ####[facility] [address] [place], [address] CREAT,SERUM Normal 0.55-1.02 [facility] Comment on above: Result Comment: Canc elled via OM: Order cancelled - Patient discharged Performed By: #### L 100.0100, L500.2500 ####[facility] [address] [place], [address] EST GFR Normal >60 [facility] Comment on above: Result Comment: Canc elled via OM: Order cancelled - Patient discharged Performed By: #### L 100.0100, L500.2500 ####[facility] [address] [place], [address] EST GFR - AA Normal >60 [facility] Comment on above: Result Comment: Canc elled via OM: Order cancelled - Patient discharged Performed By: #### L 100.0100, L500.2500 ####[facility] [address] [place], [address] GAP Normal 5-15 [facility] Comment on above: Result Comment: Canc elled via OM: Order cancelled - Patient discharged Performed By: #### L 100.0100, L500.2500 ####[facility] [address] [place], [address] GLU Normal 74-106 [facility] Comment on above: Result Comment: Canc elled via OM: Order cancelled - Patient discharged Performed By: #### L 100.0100, L500.2500 ####[facility] [address] [place], [address] Potassium Normal 3.5-5.1 [facility] Comment on above: Result Comment: Canc elled via OM: Order cancelled - Patient discharged Performed By: #### L 100.0100, L500.2500 ####[facility] [address] [place], [address] Basic Metabolic Profile (BMP) Normal 136-145 [facility] Comment on above: Result Comment: Canc elled via OM: Order cancelled - Patient discharged Performed By: #### L 100.0100, L500.2500 ####[facility] [address] [place], [address] CBC W/Diff, Automatedon 11-0 -2023 Absolute Neut Normal 2.0-7.7 [facility] Comment on above: Result Comment: Canc elled via OM: Order cancelled - Patient discharged Performed By: #### L 100.0100, L500.2500 ####[facility] [address] [place], [address] HCT Normal 37-47 [facility] Comment on above: Result Comment: Canc elled via OM: Order cancelled - Patient discharged Performed By: #### L 100.0100, L500.2500 ####[facility] [address] [place], [address] HGB Normal 12.0-15.0 [facility] Comment on above: Result Comment: Canc elled via OM: Order cancelled - Patient discharged Performed By: #### L 100.0100, L500.2500 ####[facility] [address] [place], [address] MCH Normal 27.0-32.0 [facility] Comment on above: Result Comment: Canc elled via OM: Order cancelled - Patient discharged Performed By: #### L 100.0100, L500.2500 ####[facility] [address] [place], [address] MCHC Normal 32-36 [facility] Comment on above: Result Comment: Canc elled via OM: Order cancelled - Patient discharged Performed By: #### L 100.0100, L500.2500 ####[facility] [address] [place], [address] MCV Normal 81-99 [facility] Comment on above: Result Comment: Canc elled via OM: Order cancelled - Patient discharged Performed By: #### L 100.0100, L500.2500 ####[facility] [address] [place], [address] NEUT% Normal 47-70 [facility] Comment on above: Result Comment: Canc elled via OM: Order cancelled - Patient discharged Performed By: #### L 100.0100, L500.2500 ####[facility] [address] [place], [address] PLT Normal 150-450 [facility] Comment on above: Result Comment: Canc elled via OM: Order cancelled - Patient discharged Performed By: #### L 100.0100, L500.2500 ####[facility] [address] [place], [address] RBC Normal 4.2-5.4 [facility] Comment on above: Result Comment: Canc elled via OM: Order cancelled - Patient discharged Performed By: #### L 100.0100, L500.2500 ####[facility] [address] [place], [address] RDW CV Normal 11.6-14.6 [facility] Comment on above: Result Comment: Canc elled via OM: Order cancelled - Patient discharged Performed By: #### L 100.0100, L500.2500 ####[facility] [address] [place], [address] RDW SD Normal 35.1-43.9 [facility] Comment on above: Result Comment: Canc elled via OM: Order cancelled - Patient discharged Performed By: #### L 100.0100, L500.2500 ####[facility] [address] [place], [address] WBC Normal 4.4-11.0 [facility] Comment on above: Result Comment: Canc elled via OM: Order cancelled - Patient discharged Performed By: #### L 100.0100, L500.2500 ####[facility] [address] [place], [address] Basic Metabolic Profile (BMP )on 05-10-2024 BUN Normal 7-18 [facility] Comment on above: Result Comment: Canc elled via OM: Order cancelled - Patient discharged Performed By: #### L 100.0100, L500.2500 ####[facility] [address] [place], [address] BUN/CRE Normal 10-20 [facility] Comment on above: Result Comment: Canc elled via OM: Order cancelled - Patient discharged Performed By: #### L 100.0100, L500.2500 ####[facility] [address] [place], [address] CA,Total Normal 8.5-10.1 [facility] Comment on above: Result Comment: Canc elled via OM: Order cancelled - Patient discharged Performed By: #### L 100.0100, L500.2500 ####[facility] [address] [place], [address] CL Normal 98-107 [facility] Comment on above: Result Comment: Canc elled via OM: Order cancelled - Patient discharged Performed By: #### L 100.0100, L500.2500 ####[facility] [address] [place], [address] CO2 Normal 21.0-32.0 [facility] Comment on above: Result Comment: Canc elled via OM: Order cancelled - Patient discharged Performed By: #### L 100.0100, L500.2500 ####[facility] [address] [place], [address] CREAT,SERUM Normal 0.55-1.02 [facility] Comment on above: Result Comment: Canc elled via OM: Order cancelled - Patient discharged Performed By: #### L 100.0100, L500.2500 ####[facility] [address] [place], [address] EST GFR Normal >60 [facility] Comment on above: Result Comment: Canc elled via OM: Order cancelled - Patient discharged Performed By: #### L 100.0100, L500.2500 ####[facility] [address] [place], [address] EST GFR - AA Normal >60 [facility] Comment on above: Result Comment: Canc elled via OM: Order cancelled - Patient discharged Performed By: #### L 100.0100, L500.2500 ####[facility] [address] [place], [address] GAP Normal 5-15 [facility] Comment on above: Result Comment: Canc elled via OM: Order cancelled - Patient discharged Performed By: #### L 100.0100, L500.2500 ####[facility] [address] [place], [address] GLU Normal 74-106 [facility] Comment on above: Result Comment: Canc elled via OM: Order cancelled - Patient discharged Performed By: #### L 100.0100, L500.2500 ####[facility] [address] [place], [address] Potassium Normal 3.5-5.1 [facility] Comment on above: Result Comment: Canc elled via OM: Order cancelled - Patient discharged Performed By: #### L 100.0100, L500.2500 ####[facility] [address] [place], [address] Basic Metabolic Profile (BMP) Normal 136-145 [facility] Comment on above: Result Comment: Canc elled via OM: Order cancelled - Patient discharged Performed By: #### L 100.0100, L500.2500 ####[facility] [address] [place], [address] CBC W/Diff, Automatedon 11-0 Absolute Neut Normal 2.0-7.7 [facility] Comment on above: Result Comment: Canc elled via OM: Order cancelled - Patient discharged Performed By: #### L 100.0100, L500.2500 ####[facility] [address] [place], [address] HCT Normal 37-47 [facility] Comment on above: Result Comment: Canc elled via OM: Order cancelled - Patient discharged Performed By: #### L 100.0100, L500.2500 ####[facility] [address] [place], [address] HGB Normal 12.0-15.0 [facility] Comment on above: Result Comment: Canc elled via OM: Order cancelled - Patient discharged Performed By: #### L 100.0100, L500.2500 ####[facility] [address] [place], [address] MCH Normal 27.0-32.0 [facility] Comment on above: Result Comment: Canc elled via OM: Order cancelled - Patient discharged Performed By: #### L 100.0100, L500.2500 ####[facility] [address] [place], [address] MCHC Normal 32-36 [facility] Comment on above: Result Comment: Canc elled via OM: Order cancelled - Patient discharged Performed By: #### L 100.0100, L500.2500 ####[place] [facility] [address] [place], [address] MCV Normal 81-99 [facility] Comment on above: Result Comment: Canc elled via OM: Order cancelled - Patient discharged Performed By: #### L 100.0100, L500.2500 ####[facility] [address] [place], [address] NEUT% Normal 47-70 [facility] Comment on above: Result Comment: Canc elled via OM: Order cancelled - Patient discharged Performed By: #### L 100.0100, L500.2500 ####[facility] [address] [place], [address] PLT Normal 150-450 [facility] Comment on above: Result Comment: Canc elled via OM: Order cancelled - Patient discharged Performed By: #### L 100.0100, L500.2500 ####[facility] [address] [place], [address] RBC Normal 4.2-5.4 [facility] Comment on above: Result Comment: Canc elled via OM: Order cancelled - Patient discharged Performed By: #### L 100.0100, L500.2500 ####[facility] [address] [place], [address] RDW CV Normal 11.6-14.6 [facility] Comment on above: Result Comment: Canc elled via OM: Order cancelled - Patient discharged Performed By: #### L 100.0100, L500.2500 ####[facility] [address] [place], [address] RDW SD Normal 35.1-43.9 [facility] Comment on above: Result Comment: Canc elled via OM: Order cancelled - Patient discharged Performed By: #### L 100.0100, L500.2500 ####[facility] [address] [place], [address] WBC Normal 4.4-11.0 [facility] Comment on above: Result Comment: Canc elled via OM: Order cancelled - Patient discharged Performed By: #### L 100.0100, L500.2500 ####[facility] [address] [place], [address] Basic Metabolic Profile (BMP )on 05-09-2024 BUN Normal 7-18 [facility] Comment on above: Result Comment: Canc elled via OM: Order cancelled - Patient discharged Performed By: #### L 500.2500, L100.0100 ####[facility] [address] [place], [address] BUN/CRE Normal 10-20 [facility] Comment on above: Result Comment: Canc elled via OM: Order cancelled - Patient discharged Performed By: #### L 500.2500, L100.0100 ####[facility] [address] [place], [address] CA,Total Normal 8.5-10.1 [facility] Comment on above: Result Comment: Canc elled via OM: Order cancelled - Patient discharged Performed By: #### L 500.2500, L100.0100 ####[facility] [address] [place], [address] CL Normal 98-107 [facility] Comment on above: Result Comment: Canc elled via OM: Order cancelled - Patient discharged Performed By: #### L 500.2500, L100.0100 ####[facility] [address] [place], [address] CO2 Normal 21.0-32.0 [facility] Comment on above: Result Comment: Canc elled via OM: Order cancelled - Patient discharged Performed By: #### L 500.2500, L100.0100 ####[facility] [address] [place], [address] CREAT,SERUM Normal 0.55-1.02 [facility] Comment on above: Result Comment: Canc elled via OM: Order cancelled - Patient discharged Performed By: #### L 500.2500, L100.0100 ####[facility] [address] [place], [address] EST GFR Normal >60 [facility] Comment on above: Result Comment: Canc elled via OM: Order cancelled - Patient discharged Performed By: #### L 500.2500, L100.0100 ####[facility] [address] [place], [address] EST GFR - AA Normal >60 [facility] Comment on above: Result Comment: Canc elled via OM: Order cancelled - Patient discharged Performed By: #### L 500.2500, L100.0100 ####[facility] [address] [place], [address] GAP Normal 5-15 [facility] Comment on above: Result Comment: Canc elled via OM: Order cancelled - Patient discharged Performed By: #### L 500.2500, L100.0100 ####[facility] [address] [place], [address] GLU Normal 74-106 [facility] Comment on above: Result Comment: Canc elled via OM: Order cancelled - Patient discharged Performed By: #### L 500.2500, L100.0100 ####[facility] [address] [place], [address] Potassium Normal 3.5-5.1 [facility] Comment on above: Result Comment: Canc elled via OM: Order cancelled - Patient discharged Performed By: #### L 500.2500, L100.0100 ####[facility] [address] [place], [address] Basic Metabolic Profile (BMP) Normal 136-145 [facility] Comment on above: Result Comment: Canc elled via OM: Order cancelled - Patient discharged Performed By: #### L 500.2500, L100.0100 ####[facility] [address] [place], [address] CBC W/Diff, Automatedon 11-0 Absolute Neut Normal 2.0-7.7 [facility] Comment on above: Result Comment: Canc elled via OM: Order cancelled - Patient discharged Performed By: #### L 500.2500, L100.0100 ####[facility] [address] [place], [address] HCT Normal 37-47 [facility] Comment on above: Result Comment: Canc elled via OM: Order cancelled - Patient discharged Performed By: #### L 500.2500, L100.0100 ####[facility] [address] [place], [address] HGB Normal 12.0-15.0 [facility] Comment on above: Result Comment: Canc elled via OM: Order cancelled - Patient discharged Performed By: #### L 500.2500, L100.0100 ####[facility] [address] [place], [address] MCH Normal 27.0-32.0 [facility] Comment on above: Result Comment: Canc elled via OM: Order cancelled - Patient discharged Performed By: #### L 500.2500, L100.0100 ####[facility] [address] [place], [address] MCHC Normal 32-36 [facility] Comment on above: Result Comment: Canc elled via OM: Order cancelled - Patient discharged Performed By: #### L 500.2500, L100.0100 ####[facility] [address] [place], [address] MCV Normal 81-99 [facility] Comment on above: Result Comment: Canc elled via OM: Order cancelled - Patient discharged Performed By: #### L 500.2500, L100.0100 ####[facility] [address] [place], [address] NEUT% Normal 47-70 [facility] Comment on above: Result Comment: Canc elled via OM: Order cancelled - Patient discharged Performed By: #### L 500.2500, L100.0100 ####[facility] [address] [place], [address] PLT Normal 150-450 [facility] Comment on above: Result Comment: Canc elled via OM: Order cancelled - Patient discharged Performed By: #### L 500.2500, L100.0100 ####[facility] [address] [place], [address] RBC Normal 4.2-5.4 [facility] Comment on above: Result Comment: Canc elled via OM: Order cancelled - Patient discharged Performed By: #### L 500.2500, L100.0100 ####[facility] [address] [place], [address] RDW CV Normal 11.6-14.6 [facility] Comment on above: Result Comment: Canc elled via OM: Order cancelled - Patient discharged Performed By: #### L 500.2500, L100.0100 ####[facility] [address] [place], [address] RDW SD Normal 35.1-43.9 [facility] Comment on above: Result Comment: Canc elled via OM: Order cancelled - Patient discharged Performed By: #### L 500.2500, L100.0100 ####[facility] [address] [place], [address] WBC Normal 4.4-11.0 [facility] Comment on above: Result Comment: Canc elled via OM: Order cancelled - Patient discharged Performed By: #### L 500.2500, L100.0100 ####[facility] [address] [place], [address] Basic Metabolic Profile (BMP )on 05-08-2024 BUN Normal 7-18 [facility] Comment on above: Result Comment: Canc elled via OM: Order cancelled - Patient discharged Performed By: #### L 500.2500, L100.0100 ####[facility] [address] [place], [address] BUN/CRE Normal 10-20 [facility] Comment on above: Result Comment: Canc elled via OM: Order cancelled - Patient discharged Performed By: #### L 500.2500, L100.0100 ####[facility] [address] [place], [address] CA,Total Normal 8.5-10.1 [facility] Comment on above: Result Comment: Canc elled via OM: Order cancelled - Patient discharged Performed By: #### L 500.2500, L100.0100 ####[facility] [address] [place], [address] CL Normal 98-107 [facility] Comment on above: Result Comment: Canc elled via OM: Order cancelled - Patient discharged Performed By: #### L 500.2500, L100.0100 ####[facility] [address] [place], [address] CO2 Normal 21.0-32.0 [facility] Comment on above: Result Comment: Canc elled via OM: Order cancelled - Patient discharged Performed By: #### L 500.2500, L100.0100 ####[facility] [address] [place], [address] CREAT,SERUM Normal 0.55-1.02 [facility] Comment on above: Result Comment: Canc elled via OM: Order cancelled - Patient discharged Performed By: #### L 500.2500, L100.0100 ####[facility] [address] [place], [address] EST GFR Normal >60 [facility] Comment on above: Result Comment: Canc elled via OM: Order cancelled - Patient discharged Performed By: #### L 500.2500, L100.0100 ####[facility] [address] [place], [address] EST GFR - AA Normal >60 [facility] Comment on above: Result Comment: Canc elled via OM: Order cancelled - Patient discharged Performed By: #### L 500.2500, L100.0100 ####[facility] [address] [place], [address] GAP Normal 5-15 [facility] Comment on above: Result Comment: Canc elled via OM: Order cancelled - Patient discharged Performed By: #### L 500.2500, L100.0100 ####[facility] [address] [place], [address] GLU Normal 74-106 [facility] Comment on above: Result Comment: Canc elled via OM: Order cancelled - Patient discharged Performed By: #### L 500.2500, L100.0100 ####[facility] [address] [place], [address] Potassium Normal 3.5-5.1 [facility] Comment on above: Result Comment: Canc elled via OM: Order cancelled - Patient discharged Performed By: #### L 500.2500, L100.0100 ####[facility] [address] [place], [address] Basic Metabolic Profile (BMP) Normal 136-145 [facility] Comment on above: Result Comment: Canc elled via OM: Order cancelled - Patient discharged Performed By: #### L 500.2500, L100.0100 ####[facility] [address] [place], [address] CBC W/Diff, Automatedon 11-0 Absolute Neut Normal 2.0-7.7 [facility] Comment on above: Result Comment: Canc elled via OM: Order cancelled - Patient discharged Performed By: #### L 500.2500, L100.0100 ####[facility] [address] [place], [address] HCT Normal 37-47 [facility] Comment on above: Result Comment: Canc elled via OM: Order cancelled - Patient discharged Performed By: #### L 500.2500, L100.0100 ####[facility] [address] [place], [address] HGB Normal 12.0-15.0 [facility] Comment on above: Result Comment: Canc elled via OM: Order cancelled - Patient discharged Performed By: #### L 500.2500, L100.0100 ####[facility] [address] [place], [address] MCH Normal 27.0-32.0 [facility] Comment on above: Result Comment: Canc elled via OM: Order cancelled - Patient discharged Performed By: #### L 500.2500, L100.0100 ####[facility] [address] [place], [address] MCHC Normal 32-36 [facility] Comment on above: Result Comment: Canc elled via OM: Order cancelled - Patient discharged Performed By: #### L 500.2500, L100.0100 ####[facility] [address] [place], [address] MCV Normal 81-99 [facility] Comment on above: Result Comment: Canc elled via OM: Order cancelled - Patient discharged Performed By: #### L 500.2500, L100.0100 ####[facility] [address] [place], [address] NEUT% Normal 47-70 [facility] Comment on above: Result Comment: Canc elled via OM: Order cancelled - Patient discharged Performed By: #### L 500.2500, L100.0100 ####[facility] [address] [place], [address] PLT Normal 150-450 [facility] Comment on above: Result Comment: Canc elled via OM: Order cancelled - Patient discharged Performed By: #### L 500.2500, L100.0100 ####[facility] [address] [place], [address] RBC Normal 4.2-5.4 [facility] Comment on above: Result Comment: Canc elled via OM: Order cancelled - Patient discharged Performed By: #### L 500.2500, L100.0100 ####[facility] [address] [place], [address] RDW CV Normal 11.6-14.6 [facility] Comment on above: Result Comment: Canc elled via OM: Order cancelled - Patient discharged Performed By: #### L 500.2500, L100.0100 ####[facility] [address] [place], [address] RDW SD Normal 35.1-43.9 [facility] Comment on above: Result Comment: Canc elled via OM: Order cancelled - Patient discharged Performed By: #### L 500.2500, L100.0100 ####[facility] [address] [place], [address] WBC Normal 4.4-11.0 [facility] Comment on above: Result Comment: Canc elled via OM: Order cancelled - Patient discharged Performed By: #### L 500.2500, L100.0100 ####[facility] [address] [place], [address] Culture, Blood (WB)on 2023 CUB Blood cultures x2 fr om two different sites No growth in 5 days. Normal [facility] Comment on above: Performed By: #### M 200.1000 ####[facility] [address] [place], [address] Basic Metabolic Profile (BMP )on 05-07-2024 BUN Normal 7-18 [facility] Comment on above: Result Comment: Canc elled via OM: Order cancelled - Patient discharged Performed By: #### L 500.2500, L100.0100 ####[facility] [address] [place], [address] BUN/CRE Normal 10-20 [facility] Comment on above: Result Comment: Canc elled via OM: Order cancelled - Patient discharged Performed By: #### L 500.2500, L100.0100 ####[facility] [address] [place], [address] CA,Total Normal 8.5-10.1 [facility] Comment on above: Result Comment: Canc elled via OM: Order cancelled - Patient discharged Performed By: #### L 500.2500, L100.0100 ####[facility] [address] [place], [address] CL Normal 98-107 [facility] Comment on above: Result Comment: Canc elled via OM: Order cancelled - Patient discharged Performed By: #### L 500.2500, L100.0100 ####[facility] [address] [place], [address] CO2 Normal 21.0-32.0 [facility] Comment on above: Result Comment: Canc elled via OM: Order cancelled - Patient discharged Performed By: #### L 500.2500, L100.0100 ####[facility] [address] [place], [address] CREAT,SERUM Normal 0.55-1.02 [facility] Comment on above: Result Comment: Canc elled via OM: Order cancelled - Patient discharged Performed By: #### L 500.2500, L100.0100 ####[facility] [address] [place], [address] EST GFR Normal >60 [facility] Comment on above: Result Comment: Canc elled via OM: Order cancelled - Patient discharged Performed By: #### L 500.2500, L100.0100 ####[facility] [address] [place], [address] EST GFR - AA Normal >60 [facility] Comment on above: Result Comment: Canc elled via OM: Order cancelled - Patient discharged Performed By: #### L 500.2500, L100.0100 ####[facility] [address] [place], [address] GAP Normal 5-15 [facility] Comment on above: Result Comment: Canc elled via OM: Order cancelled - Patient discharged Performed By: #### L 500.2500, L100.0100 ####[facility] [address] [place], [address] GLU Normal 74-106 [facility] Comment on above: Result Comment: Canc elled via OM: Order cancelled - Patient discharged Performed By: #### L 500.2500, L100.0100 ####[facility] [address] [place], [address] Potassium Normal 3.5-5.1 [facility] Comment on above: Result Comment: Canc elled via OM: Order cancelled - Patient discharged Performed By: #### L 500.2500, L100.0100 ####[facility] [address] [place], [address] Basic Metabolic Profile (BMP) Normal 136-145 [facility] Comment on above: Result Comment: Canc elled via OM: Order cancelled - Patient discharged Performed By: #### L 500.2500, L100.0100 ####[facility] [address] [place], [address] CBC W/Diff, Automatedon 11-0 Absolute Neut Normal 2.0-7.7 [facility] Comment on above: Result Comment: Canc elled via OM: Order cancelled - Patient discharged Performed By: #### L 500.2500, L100.0100 ####[facility] [address] [place], [address] HCT Normal 37-47 [facility] Comment on above: Result Comment: Canc elled via OM: Order cancelled - Patient discharged Performed By: #### L 500.2500, L100.0100 ####[facility] [address] [place], [address] HGB Normal 12.0-15.0 [facility] Comment on above: Result Comment: Canc elled via OM: Order cancelled - Patient discharged Performed By: #### L 500.2500, L100.0100 ####[facility] [address] [place], [address] MCH Normal 27.0-32.0 [facility] Comment on above: Result Comment: Canc elled via OM: Order cancelled - Patient discharged Performed By: #### L 500.2500, L100.0100 ####[facility] [address] [place], [address] MCHC Normal 32-36 [facility] Comment on above: Result Comment: Canc elled via OM: Order cancelled - Patient discharged Performed By: #### L 500.2500, L100.0100 ####[facility] [address] [place], [address] MCV Normal 81-99 [facility] Comment on above: Result Comment: Canc elled via OM: Order cancelled - Patient discharged Performed By: #### L 500.2500, L100.0100 ####[facility] [address] [place], [address] NEUT% Normal 47-70 [facility] Comment on above: Result Comment: Canc elled via OM: Order cancelled - Patient discharged Performed By: #### L 500.2500, L100.0100 ####[facility] [address] [place], [address] PLT Normal 150-450 [facility] Comment on above: Result Comment: Canc elled via OM: Order cancelled - Patient discharged Performed By: #### L 500.2500, L100.0100 ####[facility] [address] [place], [address] RBC Normal 4.2-5.4 [facility] Comment on above: Result Comment: Canc elled via OM: Order cancelled - Patient discharged Performed By: #### L 500.2500, L100.0100 ####[facility] [address] [place], [address] RDW CV Normal 11.6-14.6 [facility] Comment on above: Result Comment: Canc elled via OM: Order cancelled - Patient discharged Performed By: #### L 500.2500, L100.0100 ####[facility] [address] [place], [address] RDW SD Normal 35.1-43.9 [facility] Comment on above: Result Comment: Canc elled via OM: Order cancelled - Patient discharged Performed By: #### L 500.2500, L100.0100 ####[facility] [address] [place], [address] WBC Normal 4.4-11.0 [facility] Comment on above: Result Comment: Canc elled via OM: Order cancelled - Patient discharged Performed By: #### L 500.2500, L100.0100 ####[facility] [address] [place], [address] Basic Metabolic Profile (BMP )on 05-06-2024 BUN Normal 7-18 [facility] Comment on above: Result Comment: Canc elled via OM: Order cancelled - Patient discharged Performed By: #### L 500.2500, L100.0100 ####[facility] [address] [place], [address] BUN/CRE Normal 10-20 [facility] Comment on above: Result Comment: Canc elled via OM: Order cancelled - Patient discharged Performed By: #### L 500.2500, L100.0100 ####[facility] [address] [place], [address] CA,Total Normal 8.5-10.1 [facility] Comment on above: Result Comment: Canc elled via OM: Order cancelled - Patient discharged Performed By: #### L 500.2500, L100.0100 ####[facility] [address] [place], [address] CL Normal 98-107 [facility] Comment on above: Result Comment: Canc elled via OM: Order cancelled - Patient discharged Performed By: #### L 500.2500, L100.0100 ####[facility] [address] [place], [address] CO2 Normal 21.0-32.0 [facility] Comment on above: Result Comment: Canc elled via OM: Order cancelled - Patient discharged Performed By: #### L 500.2500, L100.0100 ####[facility] [address] [place], [address] CREAT,SERUM Normal 0.55-1.02 [facility] Comment on above: Result Comment: Canc elled via OM: Order cancelled - Patient discharged Performed By: #### L 500.2500, L100.0100 ####[facility] [address] [place], [address] EST GFR Normal >60 [facility] Comment on above: Result Comment: Canc elled via OM: Order cancelled - Patient discharged Performed By: #### L 500.2500, L100.0100 ####[facility] [address] [place], [address] EST GFR - AA Normal >60 [facility] Comment on above: Result Comment: Canc elled via OM: Order cancelled - Patient discharged Performed By: #### L 500.2500, L100.0100 ####[facility] [address] [place], [address] GAP Normal 5-15 [facility] Comment on above: Result Comment: Canc elled via OM: Order cancelled - Patient discharged Performed By: #### L 500.2500, L100.0100 ####[facility] [address] [place], [address] GLU Normal 74-106 [facility] Comment on above: Result Comment: Canc elled via OM: Order cancelled - Patient discharged Performed By: #### L 500.2500, L100.0100 ####[facility] [address] [place], [address] Potassium Normal 3.5-5.1 [facility] Comment on above: Result Comment: Canc elled via OM: Order cancelled - Patient discharged Performed By: #### L 500.2500, L100.0100 ####[facility] [address] [place], [address] Basic Metabolic Profile (BMP) Normal 136-145 [facility] Comment on above: Result Comment: Canc elled via OM: Order cancelled - Patient discharged Performed By: #### L 500.2500, L100.0100 ####[facility] [address] [place], [address] CBC W/Diff, Automatedon 10-3 Absolute Neut Normal 2.0-7.7 [facility] Comment on above: Result Comment: Canc elled via OM: Order cancelled - Patient discharged Performed By: #### L 500.2500, L100.0100 ####[facility] [address] [place], [address] HCT Normal 37-47 [facility] Comment on above: Result Comment: Canc elled via OM: Order cancelled - Patient discharged Performed By: #### L 500.2500, L100.0100 ####[facility] [address] [place], [address] HGB Normal 12.0-15.0 [facility] Comment on above: Result Comment: Canc elled via OM: Order cancelled - Patient discharged Performed By: #### L 500.2500, L100.0100 ####[facility] [address] [place], [address] MCH Normal 27.0-32.0 [facility] Comment on above: Result Comment: Canc elled via OM: Order cancelled - Patient discharged Performed By: #### L 500.2500, L100.0100 ####[facility] [address] [place], [address] MCHC Normal 32-36 [facility] Comment on above: Result Comment: Canc elled via OM: Order cancelled - Patient discharged Performed By: #### L 500.2500, L100.0100 ####[facility] [address] [place], [address] MCV Normal 81-99 [facility] Comment on above: Result Comment: Canc elled via OM: Order cancelled - Patient discharged Performed By: #### L 500.2500, L100.0100 ####[facility] [address] [place], [address] NEUT% Normal 47-70 [facility] Comment on above: Result Comment: Canc elled via OM: Order cancelled - Patient discharged Performed By: #### L 500.2500, L100.0100 ####[facility] [address] [place], [address] PLT Normal 150-450 [facility] Comment on above: Result Comment: Canc elled via OM: Order cancelled - Patient discharged Performed By: #### L 500.2500, L100.0100 ####[facility] [address] [place], [address] RBC Normal 4.2-5.4 [facility] Comment on above: Result Comment: Canc elled via OM: Order cancelled - Patient discharged Performed By: #### L 500.2500, L100.0100 ####[facility] [address] [place], [address] RDW CV Normal 11.6-14.6 [facility] Comment on above: Result Comment: Canc elled via OM: Order cancelled - Patient discharged Performed By: #### L 500.2500, L100.0100 ####[facility] [address] [place], [address] RDW SD Normal 35.1-43.9 [facility] Comment on above: Result Comment: Canc elled via OM: Order cancelled - Patient discharged Performed By: #### L 500.2500, L100.0100 ####[facility] [address] [place], [address] WBC Normal 4.4-11.0 [facility] Comment on above: Result Comment: Canc elled via OM: Order cancelled - Patient discharged Performed By: #### L 500.2500, L100.0100 ####[facility] [address] [place], [address] Basic Metabolic Profile (BMP )on 05-05-2024 BUN Normal 7-18 [facility] Comment on above: Result Comment: Canc elled via OM: Order cancelled - Patient discharged Performed By: #### L 100.0100, L500.2500 ####[facility] [address] [place], [address] BUN/CRE Normal 10-20 [facility] Comment on above: Result Comment: Canc elled via OM: Order cancelled - Patient discharged Performed By: #### L 100.0100, L500.2500 ####[facility] [address] [place], [address] CA,Total Normal 8.5-10.1 [facility] Comment on above: Result Comment: Canc elled via OM: Order cancelled - Patient discharged Performed By: #### L 100.0100, L500.2500 ####[facility] [address] [place], [address] CL Normal 98-107 [facility] Comment on above: Result Comment: Canc elled via OM: Order cancelled - Patient discharged Performed By: #### L 100.0100, L500.2500 ####[facility] [address] [place], [address] CO2 Normal 21.0-32.0 [facility] Comment on above: Result Comment: Canc elled via OM: Order cancelled - Patient discharged Performed By: #### L 100.0100, L500.2500 ####[facility] [address] [place], [address] CREAT,SERUM Normal 0.55-1.02 [facility] Comment on above: Result Comment: Canc elled via OM: Order cancelled - Patient discharged Performed By: #### L 100.0100, L500.2500 ####[facility] [address] [place], [address] EST GFR Normal >60 [facility] Comment on above: Result Comment: Canc elled via OM: Order cancelled - Patient discharged Performed By: #### L 100.0100, L500.2500 ####[facility] [address] [place], [address] EST GFR - AA Normal >60 [facility] Comment on above: Result Comment: Canc elled via OM: Order cancelled - Patient discharged Performed By: #### L 100.0100, L500.2500 ####[facility] [address] [place], [address] GAP Normal 5-15 [facility] Comment on above: Result Comment: Canc elled via OM: Order cancelled - Patient discharged Performed By: #### L 100.0100, L500.2500 ####[facility] [address] [place], [address] GLU Normal 74-106 [facility] Comment on above: Result Comment: Canc elled via OM: Order cancelled - Patient discharged Performed By: #### L 100.0100, L500.2500 ####[facility] [address] [place], [address] Potassium Normal 3.5-5.1 [facility] Comment on above: Result Comment: Canc elled via OM: Order cancelled - Patient discharged Performed By: #### L 100.0100, L500.2500 ####[facility] [address] [place], [address] Basic Metabolic Profile (BMP) Normal 136-145 [facility] Comment on above: Result Comment: Canc elled via OM: Order cancelled - Patient discharged Performed By: #### L 100.0100, L500.2500 ####[facility] [address] [place], [address] CBC W/Diff, Automatedon 10-3 0-2023 Absolute Neut Normal 2.0-7.7 [facility] Comment on above: Result Comment: Canc elled via OM: Order cancelled - Patient discharged Performed By: #### L 100.0100, L500.2500 ####[facility] [address] [place], [address] HCT Normal 37-47 [facility] Comment on above: Result Comment: Canc elled via OM: Order cancelled - Patient discharged Performed By: #### L 100.0100, L500.2500 ####[facility] [address] [place], [address] HGB Normal 12.0-15.0 [facility] Comment on above: Result Comment: Canc elled via OM: Order cancelled - Patient discharged Performed By: #### L 100.0100, L500.2500 ####[facility] [address] [place], [address] MCH Normal 27.0-32.0 [facility] Comment on above: Result Comment: Canc elled via OM: Order cancelled - Patient discharged Performed By: #### L 100.0100, L500.2500 ####[facility] [address] [place], [address] MCHC Normal 32-36 [facility] Comment on above: Result Comment: Canc elled via OM: Order cancelled - Patient discharged Performed By: #### L 100.0100, L500.2500 ####[facility] [address] [place], [address] MCV Normal 81-99 [facility] Comment on above: Result Comment: Canc elled via OM: Order cancelled - Patient discharged Performed By: #### L 100.0100, L500.2500 ####[facility] [address] [place], [address] NEUT% Normal 47-70 [facility] Comment on above: Result Comment: Canc elled via OM: Order cancelled - Patient discharged Performed By: #### L 100.0100, L500.2500 ####[facility] [address] [place], [address] PLT Normal 150-450 [facility] Comment on above: Result Comment: Canc elled via OM: Order cancelled - Patient discharged Performed By: #### L 100.0100, L500.2500 ####[facility] [address] [place], [address] RBC Normal 4.2-5.4 [facility] Comment on above: Result Comment: Canc elled via OM: Order cancelled - Patient discharged Performed By: #### L 100.0100, L500.2500 ####[facility] [address] [place], [address] RDW CV Normal 11.6-14.6 [facility] Comment on above: Result Comment: Canc elled via OM: Order cancelled - Patient discharged Performed By: #### L 100.0100, L500.2500 ####[facility] [address] [place], [address] RDW SD Normal 35.1-43.9 [facility] Comment on above: Result Comment: Canc elled via OM: Order cancelled - Patient discharged Performed By: #### L 100.0100, L500.2500 ####[facility] [address] [place], [address] WBC Normal 4.4-11.0 [facility] Comment on above: Result Comment: Canc elled via OM: Order cancelled - Patient discharged Performed By: #### L 100.0100, L500.2500 ####[facility] [address] [place], [address] Basic Metabolic Profile (BMP )on 05-04-2024 BUN/CRE 11.6 RATIO Normal 10-20 [facility] Comment on above: Performed By: #### L 100.0100, L500.2500 ####[facility] [address] [place], [address] CA,Total 8.6 mg/dL Normal 8.5-10.1 [facility] Comment on above: Performed By: #### L 100.0100, L500.2500 ####[facility] [address] [place], [address] Chloride [Moles/Vol] 115 mmol/L High 98-107 [facility] Comment on above: Performed By: #### L 100.0100, L500.2500 ####[facility] [address] [place], [address] CO2 [Moles/Vol] 20.0 mmol/L Low 21.0-32.0 [facility] Comment on above: Performed By: #### L 100.0100, L500.2500 ####[facility] [address] [place], [address] Creatinine [Mass/Vol] 0.86 mg/dL Normal 0.55-1.02 [facility] Comment on above: Result Comment: The validity of the calculated GFR GFRAA in patients over70 years has not been determined. Clinical correlation isessential. Performed By: #### L 100.0100, L500.2500 ####[facility] [address] [place], [address] ECRCL 56.11 ml/min Normal [facility] Comment on above: Performed By: #### L 100.0100, L500.2500 ####[facility] [address] [place], [address] EST GFR - AA 86 mL/min Normal >60 [facility] Comment on above: Result Comment: Afri can Martiniquais GFR Calc Performed By: #### L 100.0100, L500.2500 ####[facility] [address] [place], [address] GAP 4 Low 5-15 [facility] Comment on above: Performed By: #### L 100.0100, L500.2500 ####[facility] [address] [place], [address] GFR/1.73 sq M.predicted among non-blacks MDRD (S/P/Bld) [Vol rate/Area] 71 mL/min/{1.73_m2} Normal >60 [facility] Comment on above: Result Comment: Non- GFR Calc Performed By: #### L 100.0100, L500.2500 ####[facility] [address] [place], [address] Glucose [Mass/Vol] 220 mg/dL High 74-[address] [facility] Comment on above: Result Comment: Gluc ose result greater than or equal to 200 mg/dLsuggests DIABETES MELLITUS per A.D.A. criteria. Performed By: #### L 100.0100, L500.2500 ####[facility] [address] [place], [address] Potassium [Moles/Vol] 3.7 mmol/L Normal 3.5-5.1 [facility] Comment on above: Performed By: #### L 100.0100, L500.2500 ####[facility] [address] [place], [address] Sodium [Moles/Vol] 139 mmol/L Normal 136-[address] [facility] Comment on above: Performed By: #### L 100.0100, L500.2500 ####[facility] [address] [place], [address] Urea nitrogen [Mass/Vol] 10 mg/dL Normal 7-18 [facility] Comment on above: Performed By: #### L 100.0100, L500.2500 ####[facility] [address] [place], [address] Bedside Glucoseon 05-04-2024 FINGERSTICK GLU 176 mg/dL High 74-106 [facility] Comment on above: Result Comment: MARIA D SERRANO OF PATIENT CARE PER NURSING PROTOCOL Performed By: #### L 501.080 ####[facility] [address] [place], [address] FINGERSTICK GLU 225 mg/dL High 74-106 [facility] Comment on above: Result Comment: MARIA D SERRANO OF PATIENT CARE PER NURSING PROTOCOL Performed By: #### L 501.080 ####[facility] [address] [place], [address] CBC W/Diff, Automatedon 10-2 Absolute Lymph 1.94 X10 3/uL Normal 0.83-4.51 [facility] Comment on above: Performed By: #### L 100.0100, L500.2500 ####[facility] [address] [place], [address] Absolute Neut 2.5 X10 3/uL Normal 2.0-7.7 [facility] Comment on above: Performed By: #### L 100.0100, L500.2500 ####[facility] [address] [place], [address] Basophils/100 WBC (Bld) 0.4 % Normal 0-1 [facility] Comment on above: Performed By: #### L 100.0100, L500.2500 ####[facility] [address] [place], [address] Eosinophils/100 WBC (Bld) 1.2 % Normal 0-5 [facility] Comment on above: Performed By: #### L 100.0100, L500.2500 ####[facility] [address] [place], [address] Erythrocyte distribution width (RBC) [Ratio] 13.3 % Normal 11.6-14.6 [facility] Comment on above: Performed By: #### L 100.0100, L500.2500 ####[facility] [address] [place], [address] Hematocrit (Bld) [Volume fraction] 29.8 % Low 37-47 [facility] Comment on above: Performed By: #### L 100.0100, L500.2500 ####[facility] [address] [place], [address] Hemoglobin (Bld) [Mass/Vol] 10.1 g/dL Low 12.0-15.0 [facility] Comment on above: Performed By: #### L 100.0100, L500.2500 ####[facility] [address] [place], [address] IG% 0.200 Normal 0.0-0.9 [facility] Comment on above: Result Comment: IG% - Immature Granulocytes (promyelocytes, myelocytes andmetamyelocytes) > 1% indicates that a LEFT SHIFT is Present. Performed By: #### L 100.0100, L500.2500 ####[facility] [address] [place], [address] Lymphocytes/100 WBC (Bld) 38.9 % Normal 19-41 [facility] Comment on above: Performed By: #### L 100.0100, L500.2500 ####[facility] [address] [place], [address] MCH (RBC) [Entitic mass] 30.1 pg Normal 27.0-32.0 [facility] Comment on above: Performed By: #### L 100.0100, L500.2500 ####[facility] [address] [place], [address] MCHC (RBC) [Mass/Vol] 33.9 g/dL Normal 32-36 [facility] Comment on above: Performed By: #### L 100.0100, L500.2500 ####[facility] [address] [place], [address] MCV (RBC) [Entitic vol] 89.0 fL Normal 81-99 [facility] Comment on above: Performed By: #### L 100.0100, L500.2500 ####[facility] [address] [place], [address] Monocytes/100 WBC (Bld) 8.8 % Normal 0-10 [facility] Comment on above: Performed By: #### L 100.0100, L500.2500 ####[facility] [address] [place], [address] Neutrophils/100 WBC (Bld) 50.5 % Normal 47-70 [facility] Comment on above: Performed By: #### L 100.0100, L500.2500 ####[facility] [address] [place], [address] Nucleated RBC (Bld) [#/Vol] 0 10*3/uL Normal 0-5 [facility] Comment on above: Performed By: #### L 100.0100, L500.2500 ####[facility] [address] [place], [address] Platelet mean volume (Bld) [Entitic vol] 11.1 fL Normal 6.2-12.0 [facility] Comment on above: Performed By: #### L 100.0100, L500.2500 ####[facility] [address] [place], [address] Platelets (Bld) [#/Vol] 187 10*3/uL Normal 150-450 [facility] Comment on above: Performed By: #### L 100.0100, L500.2500 ####[facility] [address] [place], [address] RBC (Bld) [#/Vol] 3.35 10*6/uL Low 4.2-5.4 [facility] Comment on above: Performed By: #### L 100.0100, L500.2500 ####[facility] [address] [place], [address] RDW SD 43.4 fl Normal 35.1-43.9 [facility] Comment on above: Performed By: #### L 100.0100, L500.2500 ####[facility] [address] [place], [address] WBC (Bld) [#/Vol] 5.0 10*3/uL Normal 4.4-11.[address] [facility] Comment on above: Performed By: #### L 100.0100, L500.2500 ####[facility] [address] [place], [address] Discharge Instructionon 04-07 Discharge Instruction Normal [facility] Urine Cultureon 05-04-2024 URC Mixed Gram Positive Organisms Garrison Count 11,000-25,000 MIXC Mixed contaminants. Submit a new specimen if indicated. Normal [facility] Comment on above: Performed By: #### M 100.2200 ####[facility] [address] [place], [address] Acetone Serumon 05-03-2024 ACETONE SERUM LARGE Abnormal NEG [facility] Comment on above: Order Comment: Comme nts: If not done in the ED Result Comment: CRIT ICAL VALUE CALLED TO AHCPBJYDBRADLO10/28/24 0456 Mayito Chao.RESULTS READ BACK BY SAME. Performed By: #### L 501.6900 ####[facility] [address] [place], [address] Basic Metabolic Profile (BMP )on 05-03-2024 BUN Normal - [facility] Comment on above: Order Comment: Call MD with results STAT Result Comment: Canenedina elled via OM: Ordered Performed By: #### L 500.2500 ####[facility] [address] [place], [address] BUN/CRE Normal - [facility] Comment on above: Order Comment: Call with results STAT Result Comment: Guille ellnatalie via OM: Ordered Performed By: #### L 500.2500 ####[facility] [address] [place], [address] CA,Total Normal 8.5-10.1 [facility] Comment on above: Order Comment: Call MD with results STAT Result Comment: Canc elled via OM: MD Ordered Performed By: #### L 500.2500 ####[facility] [address] [place], [address] CL Normal 98-107 [facility] Comment on above: Order Comment: Call MD with results STAT Result Comment: Canc elled via OM: MD Ordered Performed By: #### L 500.2500 ####[facility] [address] [place], [address] CO2 Normal 21.0-32.0 [facility] Comment on above: Order Comment: Call MD with results STAT Result Comment: Canc elled via OM: MD Ordered Performed By: #### L 500.2500 ####[facility] [address] [place], [address] CREAT,SERUM Normal 0.55-1.02 [facility] Comment on above: Order Comment: Call MD with results STAT Result Comment: Canc elled via OM: MD Ordered Performed By: #### L 500.2500 ####[facility] [address] [place], [address] EST GFR Normal >60 [facility] Comment on above: Order Comment: Call MD with results STAT Result Comment: Canc elled via OM: MD Ordered Performed By: #### L 500.2500 ####[facility] [address] [place], [address] EST GFR - AA Normal >60 [facility] Comment on above: Order Comment: Call MD with results STAT Result Comment: Canc elled via OM: MD Ordered Performed By: #### L 500.2500 ####[facility] [address] [place], [address] GAP Normal 5-15 [facility] Comment on above: Order Comment: Call MD with results STAT Result Comment: Canc elled via OM: MD Ordered Performed By: #### L 500.2500 ####[facility] [address] [place], [address] GLU Normal 74-106 [facility] Comment on above: Order Comment: Call MD with results STAT Result Comment: Canc elled via OM: MD Ordered Performed By: #### L 500.2500 ####[facility] [address] [place], [address] Potassium Normal 3.5-5.1 [facility] Comment on above: Order Comment: Call MD with results STAT Result Comment: Canc elled via OM: MD Ordered Performed By: #### L 500.2500 ####[facility] [address] [place], [address] Basic Metabolic Profile (BMP) Normal 136-145 [facility] Comment on above: Order Comment: Call MD with results STAT Result Comment: Canc elled via OM: MD Ordered Performed By: #### L 500.2500 ####[facility] [address] [place], [address] BUN Normal 7-18 [facility] Comment on above: Order Comment: Call MD with results STAT Result Comment: Canc elled via OM: MD Ordered Performed By: #### L 500.2500 ####[facility] [address] [place], [address] BUN/CRE Normal 10-20 [facility] Comment on above: Order Comment: Call MD with results STAT Result Comment: Canc elled via OM: MD Ordered Performed By: #### L 500.2500 ####[facility] [address] [place], [address] CA,Total Normal 8.5-10.1 [facility] Comment on above: Order Comment: Call MD with results STAT Result Comment: Canc elled via OM: MD Ordered Performed By: #### L 500.2500 ####[facility] [address] [place], [address] CL Normal 98-107 [facility] Comment on above: Order Comment: Call MD with results STAT Result Comment: Canc elled via OM: MD Ordered Performed By: #### L 500.2500 ####[facility] [address] [place], [address] CO2 Normal 21.0-32.0 [facility] Comment on above: Order Comment: Call MD with results STAT Result Comment: Canc elled via OM: MD Ordered Performed By: #### L 500.2500 ####[facility] [address] [place], [address] CREAT,SERUM Normal 0.55-1.02 [facility] Comment on above: Order Comment: Call MD with results STAT Result Comment: Canc elled via OM: MD Ordered Performed By: #### L 500.2500 ####[facility] [address] [place], [address] EST GFR Normal >60 [facility] Comment on above: Order Comment: Call MD with results STAT Result Comment: Canc elled via OM: MD Ordered Performed By: #### L 500.2500 ####[facility] [address] [place], [address] EST GFR - AA Normal >60 [facility] Comment on above: Order Comment: Call MD with results STAT Result Comment: Canc elled via OM: MD Ordered Performed By: #### L 500.2500 ####[facility] [address] [place], [address] GAP Normal 5-15 [facility] Comment on above: Order Comment: Call MD with results STAT Result Comment: Canc elled via OM: MD Ordered Performed By: #### L 500.2500 ####[facility] [address] [place], [address] GLU Normal 74-106 [facility] Comment on above: Order Comment: Call MD with results STAT Result Comment: Canc elled via OM: MD Ordered Performed By: #### L 500.2500 ####[facility] [address] [place], [address] Potassium Normal 3.5-5.1 [facility] Comment on above: Order Comment: Call MD with results STAT Result Comment: Canc elled via OM: MD Ordered Performed By: #### L 500.2500 ####[facility] [address] [place], [address] Basic Metabolic Profile (BMP) Normal 136-145 [facility] Comment on above: Order Comment: Call MD with results STAT Result Comment: Canc elled via OM: MD Ordered Performed By: #### L 500.2500 ####[facility] [address] [place], [address] BUN Normal 7-18 [facility] Comment on above: Order Comment: Call MD with results STAT Result Comment: Canc elled via OM: MD Ordered Performed By: #### L 500.2500 ####[facility] [address] [place], [address] BUN/CRE Normal 10-20 [facility] Comment on above: Order Comment: Call MD with results STAT Result Comment: Canc elled via OM: MD Ordered Performed By: #### L 500.2500 ####[facility] [address] [place], [address] CA,Total Normal 8.5-10.1 [facility] Comment on above: Order Comment: Call MD with results STAT Result Comment: Canc elled via OM: MD Ordered Performed By: #### L 500.2500 ####[facility] [address] [place], [address] CL Normal 98-107 [facility] Comment on above: Order Comment: Call MD with results STAT Result Comment: Canc elled via OM: MD Ordered Performed By: #### L 500.2500 ####[facility] [address] [place], [address] CO2 Normal 21.0-32.0 [facility] Comment on above: Order Comment: Call MD with results STAT Result Comment: Canc elled via OM: MD Ordered Performed By: #### L 500.2500 ####[facility] [address] [place], [address] CREAT,SERUM Normal 0.55-1.02 [facility] Comment on above: Order Comment: Call MD with results STAT Result Comment: Canc elled via OM: MD Ordered Performed By: #### L 500.2500 ####[facility] [address] [place], [address] EST GFR Normal >60 [facility] Comment on above: Order Comment: Call MD with results STAT Result Comment: Canc elled via OM: MD Ordered Performed By: #### L 500.2500 ####[facility] [address] [place], [address] EST GFR - AA Normal >60 [facility] Comment on above: Order Comment: Call MD with results STAT Result Comment: Canc elled via OM: MD Ordered Performed By: #### L 500.2500 ####[facility] [address] [place], [address] GAP Normal 5-15 [facility] Comment on above: Order Comment: Call MD with results STAT Result Comment: Canc elled via OM: MD Ordered Performed By: #### L 500.2500 ####[facility] [address] [place], [address] GLU Normal 74-106 [facility] Comment on above: Order Comment: Call MD with results STAT Result Comment: Canc elled via OM: MD Ordered Performed By: #### L 500.2500 ####[facility] [address] [place], [address] Potassium Normal 3.5-5.1 [facility] Comment on above: Order Comment: Call MD with results STAT Result Comment: Guille carey via OM: MD Ordered Performed By: #### L 500.2500 ####[facility] [address] [place], [address] Basic Metabolic Profile (BMP) Normal 136-145 [facility] Comment on above: Order Comment: Call MD with results STAT Result Comment: Guille carey via OM: MD Ordered Performed By: #### L 500.2500 ####[facility] [address] [place], [address] BUN/CRE 16.6 RATIO Normal 10-20 [facility] Comment on above: Order Comment: Call MD with results STAT Performed By: #### L 500.2500 ####[facility] [address] [place], [address] CA,Total 8.6 mg/dL Normal 8.5-10.1 [facility] Comment on above: Order Comment: Call MD with results STAT Performed By: #### L 500.2500 ####[facility] [address] [place], [address] Chloride [Moles/Vol] 117 mmol/L High 98-107 [facility] Comment on above: Order Comment: Call MD with results STAT Performed By: #### L 500.2500 ####[facility] [address] [place], [address] CO2 [Moles/Vol] 18.0 mmol/L Low 21.0-32.0 [facility] Comment on above: Order Comment: Call MD with results STAT Performed By: #### L 500.2500 ####[facility] [address] [place], [address] Creatinine [Mass/Vol] 0.90 mg/dL Normal 0.55-1.02 [facility] Comment on above: Order Comment: Call MD with results STAT Result Comment: The validity of the calculated GFR GFRAA in patients over70 years has not been determined. Clinical correlation isessential. Performed By: #### L 500.2500 ####[facility] [address] [place], [address] ECRCL 53.41 ml/min Normal [facility] Comment on above: Order Comment: Call MD with results STAT Performed By: #### L 500.2500 ####[facility] [address] [place], [address] EST GFR - AA 82 mL/min Normal >60 [facility] Comment on above: Order Comment: Call MD with results STAT Result Comment: Afri can Martiniquais GFR Calc Performed By: #### L 500.2500 ####[facility] [address] [place], [address] GAP 4 Low 5-15 [facility] Comment on above: Order Comment: Call MD with results STAT Performed By: #### L 500.2500 ####[facility] [address] [place], [address] GFR/1.73 sq M.predicted among non-blacks MDRD (S/P/Bld) [Vol rate/Area] 67 mL/min/{1.73_m2} Normal >60 [facility] Comment on above: Order Comment: Call MD with results STAT Result Comment: Non- GFR Calc Performed By: #### L 500.2500 ####[facility] [address] [place], [address] Glucose [Mass/Vol] 119 mg/dL High 74-[address] [facility] Comment on above: Order Comment: Call MD with results STAT Result Comment: Fast ing Glucose result from 100 to 125 mg/dLsuggests IMPAIRED HOMEOSTASIS per A.D.A. criteria. Performed By: #### L 500.2500 ####[facility] [address] [place], [address] Potassium [Moles/Vol] 3.3 mmol/L Low 3.5-5.1 [facility] Comment on above: Order Comment: Call MD with results STAT Performed By: #### L 500.2500 ####[facility] [address] [place], [address] Sodium [Moles/Vol] 138 mmol/L Normal 136-[address] [facility] Comment on above: Order Comment: Call MD with results STAT Performed By: #### L 500.2500 ####[facility] [address] [place], [address] Urea nitrogen [Mass/Vol] 15 mg/dL Normal 7-18 [facility] Comment on above: Order Comment: Call MD with results STAT Performed By: #### L 500.2500 ####[facility] [address] [place], [address] BUN/CRE 16.1 RATIO Normal 10-20 [facility] Comment on above: Performed By: #### L 500.2500 ####[facility] [address] [place], [address] CA,Total 8.4 mg/dL Low 8.5-10.1 [facility] Comment on above: Performed By: #### L 500.2500 ####[facility] [address] [place], [address] Chloride [Moles/Vol] 114 mmol/L High 98-107 [facility] Comment on above: Performed By: #### L 500.2500 ####[facility] [address] [place], [address] CO2 [Moles/Vol] 17.0 mmol/L Low 21.0-32.0 [facility] Comment on above: Performed By: #### L 500.2500 ####[facility] [address] [place], [address] Creatinine [Mass/Vol] 0.99 mg/dL Normal 0.55-1.02 [facility] Comment on above: Result Comment: The validity of the calculated GFR GFRAA in patients over70 years has not been determined. Clinical correlation isessential. Performed By: #### L 500.2500 ####[facility] [address] [place], [address] ECRCL 48.55 ml/min Normal [facility] Comment on above: Performed By: #### L 500.2500 ####[facility] [address] [place], [address] EST GFR - AA 73 mL/min Normal >60 [facility] Comment on above: Result Comment: Afri can Martiniquais GFR Calc Performed By: #### L 500.2500 ####[facility] [address] [place], [address] GAP 9 Normal 5-15 [facility] Comment on above: Performed By: #### L 500.2500 ####[facility] [address] [place], [address] GFR/1.73 sq M.predicted among non-blacks MDRD (S/P/Bld) [Vol rate/Area] 60 mL/min/{1.73_m2} Normal >60 [facility] Comment on above: Result Comment: Non- GFR Calc Performed By: #### L 500.2500 ####[facility] [address] [place], [address] Glucose [Mass/Vol] 190 mg/dL High 74-[address] [facility] Comment on above: Result Comment: Fast ing Glucose result greater than or equal to 126 mg/dLsuggests DIABETES MELLITUS per A.D.A. criteria. Performed By: #### L 500.2500 ####[facility] [address] [place], [address] Potassium [Moles/Vol] 3.5 mmol/L Normal 3.5-5.1 [facility] Comment on above: Performed By: #### L 500.2500 ####[facility] [address] [place], [address] Sodium [Moles/Vol] 140 mmol/L Normal 136-[address] [facility] Comment on above: Performed By: #### L 500.2500 ####[facility] [address] [place], [address] Urea nitrogen [Mass/Vol] 16 mg/dL Normal 7-18 [facility] Comment on above: Performed By: #### L 500.2500 ####[facility] [address] [place], [address] BUN/CRE 18.8 RATIO Normal 10-20 [facility] Comment on above: Order Comment: Comme nts: SPECIMEN #3'TROP' Serial specimen #1, #2 or #3: Alex RICH with results STAT Performed By: #### L 500.2500, L501.2300, L100.0100, L501.4020, L501.9520 ####[facility] [address] [place], [address] CA,Total 8.5 mg/dL Normal 8.5-10.1 [facility] Comment on above: Order Comment: Comme nts: SPECIMEN #3'TROP' Serial specimen #1, #2 or #3: Alex RICH with results STAT Performed By: #### L 500.2500, L501.2300, L100.0100, L501.4020, L501.9520 ####[facility] [address] [place], [address] Chloride [Moles/Vol] 114 mmol/L High 98-107 [facility] Comment on above: Order Comment: Comme nts: SPECIMEN #3'TROP' Serial specimen #1, #2 or #3: Alex RICH with results STAT Performed By: #### L 500.2500, L501.2300, L100.0100, L501.4020, L501.9520 ####[facility] [address] [place], [address] CO2 [Moles/Vol] 12.0 mmol/L Low 21.0-32.0 [facility] Comment on above: Order Comment: Comme nts: SPECIMEN #3'TROP' Serial specimen #1, #2 or #3: Alex RICH with results STAT Performed By: #### L 500.2500, L501.2300, L100.0100, L501.4020, L501.9520 ####[facility] [address] [place], [address] Creatinine [Mass/Vol] 1.01 mg/dL Normal 0.55-1.02 [facility] Comment on above: Order Comment: Comme nts: SPECIMEN #3'TROP' Serial specimen #1, #2 or #3: Alex RICH with results STAT Result Comment: The validity of the calculated GFR GFRAA in patients over70 years has not been determined. Clinical correlation isessential. Performed By: #### L 500.2500, L501.2300, L100.0100, L501.4020, L501.9520 ####[facility] [address] [place], [address] ECRCL 47.59 ml/min Normal [facility] Comment on above: Order Comment: Comme nts: SPECIMEN #3'TROP' Serial specimen #1, #2 or #3: Alex RICH with results STAT Performed By: #### L 500.2500, L501.2300, L100.0100, L501.4020, L501.9520 ####[facility] [address] [place], [address] EST GFR - AA 71 mL/min Normal >60 [facility] Comment on above: Order Comment: Comme nts: SPECIMEN #3'TROP' Serial specimen #1, #2 or #3: Alex RICH with results STAT Result Comment: Afri can Martiniquais GFR Calc Performed By: #### L 500.2500, L501.2300, L100.0100, L501.4020, L501.9520 ####[facility] [address] [place], [address] GAP 12 Normal 5-15 [facility] Comment on above: Order Comment: Comme nts: SPECIMEN #3'TROP' Serial specimen #1, #2 or #3: Alex RICH with results STAT Performed By: #### L 500.2500, L501.2300, L100.0100, L501.4020, L501.9520 ####[facility] [address] [place], [address] GFR/1.73 sq M.predicted among non-blacks MDRD (S/P/Bld) [Vol rate/Area] 59 mL/min/{1.73_m2} Low >60 [facility] Comment on above: Order Comment: Comme nts: SPECIMEN #3'TROP' Serial specimen #1, #2 or #3: Alex RICH with results STAT Result Comment: Non- GFR Calc Performed By: #### L 500.2500, L501.2300, L100.0100, L501.4020, L501.9520 ####[facility] [address] [place], [address] Glucose [Mass/Vol] 241 mg/dL High 74-[address] [facility] Comment on above: Order Comment: Comme nts: SPECIMEN #3'TROP' Serial specimen #1, #2 or #3: Alex RICH with results STAT Result Comment: Gluc ose result greater than or equal to 200 mg/dLsuggests DIABETES MELLITUS per A.D.A. criteria. Performed By: #### L 500.2500, L501.2300, L100.0100, L501.4020, L501.9520 ####[facility] [address] [place], [address] Potassium [Moles/Vol] 3.8 mmol/L Normal 3.5-5.1 [facility] Comment on above: Order Comment: Comme nts: SPECIMEN #3'TROP' Serial specimen #1, #2 or #3: Alex RICH with results STAT Performed By: #### L 500.2500, L501.2300, L100.0100, L501.4020, L501.9520 ####[facility] [address] [place], [address] Sodium [Moles/Vol] 137 mmol/L Normal 136-[address] [facility] Comment on above: Order Comment: Comme nts: SPECIMEN #3'TROP' Serial specimen #1, #2 or #3: Alex RICH with results STAT Performed By: #### L 500.2500, L501.2300, L100.0100, L501.4020, L501.9520 ####[facility] [address] [place], [address] Urea nitrogen [Mass/Vol] 19 mg/dL High - [facility] Comment on above: Order Comment: Comme nts: SPECIMEN #3'TROP' Serial specimen #1, #2 or #3: Alex RICH with results STAT Performed By: #### L 500.2500, L501.2300, L100.0100, L501.4020, L501.9520 ####[facility] [address] [place], [address] BUN Normal - [facility] Comment on above: Result Comment: Canc elled via OM: Duplicate Order Performed By: #### L 500.2500 ####[facility] [address] [place], [address] BUN/CRE Normal 10-20 [facility] Comment on above: Result Comment: Canc elled via OM: Duplicate Order Performed By: #### L 500.2500 ####[facility] [address] [place], [address] CA,Total Normal 8.5-10.1 [facility] Comment on above: Result Comment: Canc elled via OM: Duplicate Order Performed By: #### L 500.2500 ####[facility] [address] [place], [address] CL Normal 98-107 [facility] Comment on above: Result Comment: Canc elled via OM: Duplicate Order Performed By: #### L 500.2500 ####[facility] [address] [place], [address] CO2 Normal 21.0-32.0 [facility] Comment on above: Result Comment: Canc elled via OM: Duplicate Order Performed By: #### L 500.2500 ####[facility] [address] [place], [address] CREAT,SERUM Normal 0.55-1.02 [facility] Comment on above: Result Comment: Canc elled via OM: Duplicate Order Performed By: #### L 500.2500 ####[facility] [address] [place], [address] EST GFR Normal >60 [facility] Comment on above: Result Comment: Canc elled via OM: Duplicate Order Performed By: #### L 500.2500 ####[facility] [address] [place], [address] EST GFR - AA Normal >60 [facility] Comment on above: Result Comment: Canc elled via OM: Duplicate Order Performed By: #### L 500.2500 ####[facility] [address] [place], [address] GAP Normal 5-15 [facility] Comment on above: Result Comment: Canc elled via OM: Duplicate Order Performed By: #### L 500.2500 ####[facility] [address] [place], [address] GLU Normal 74-106 [facility] Comment on above: Result Comment: Canc elled via OM: Duplicate Order Performed By: #### L 500.2500 ####[facility] [address] [place], [address] Potassium Normal 3.5-5.1 [facility] Comment on above: Result Comment: Canc elled via OM: Duplicate Order Performed By: #### L 500.2500 ####[facility] [address] [place], [address] Basic Metabolic Profile (BMP) Normal 136-145 [facility] Comment on above: Result Comment: Canc elled via OM: Duplicate Order Performed By: #### L 500.2500 ####[facility] [address] [place], [address] BUN/CRE 18.8 RATIO Normal 10-20 [facility] Comment on above: Order Comment: Comme nts: SPECIMEN #2'TROP' Serial specimen #1, #2 or #3: Mejia RICH with results STAT Performed By: #### L 500.2500, L501.4020 ####[facility] [address] [place], [address] CA,Total 9.2 mg/dL Normal 8.5-10.1 [facility] Comment on above: Order Comment: Comme nts: SPECIMEN #2'TROP' Serial specimen #1, #2 or #3: Mejia RICH with results STAT Performed By: #### L 500.2500, L501.4020 ####[facility] [address] [place], [address] Chloride [Moles/Vol] 106 mmol/L Normal 98-107 [facility] Comment on above: Order Comment: Comme nts: SPECIMEN #2'TROP' Serial specimen #1, #2 or #3: Mejia RICH with results STAT Performed By: #### L 500.2500, L501.4020 ####[facility] [address] [place], [address] CO2 [Moles/Vol] 9.0 mmol/L Invalid Interpretation Code 21.0-32.0 [facility] Comment on above: Order Comment: Comme nts: SPECIMEN #2'TROP' Serial specimen #1, #2 or #3: Mejia RICH with results STAT Result Comment: Crit ical Result(s) Called at: 00:31:10 05/03/2024 by: NoahBurns. HARISH Dennis RN ICU. Results read back by same. Performed By: #### L 500.2500, L501.4020 ####[facility] [facility] [address] [place], [address] Creatinine [Mass/Vol] 1.17 mg/dL High 0.55-1.02 [facility] Comment on above: Order Comment: Comme nts: SPECIMEN #2'TROP' Serial specimen #1, #2 or #3: 2Cmeir RICH with results STAT Result Comment: The validity of the calculated GFR GFRAA in patients over70 years has not been determined. Clinical correlation isessential. Performed By: #### L 500.2500, L501.4020 ####[facility] [address] [place], [address] ECRCL 41.08 ml/min Normal [facility] Comment on above: Order Comment: Comme nts: SPECIMEN #2'TROP' Serial specimen #1, #2 or #3: 2Cmeir RICH with results STAT Performed By: #### L 500.2500, L501.4020 ####[facility] [address] [place], [address] EST GFR - AA 60 mL/min Normal >60 [facility] Comment on above: Order Comment: Comme nts: SPECIMEN #2'TROP' Serial specimen #1, #2 or #3: Mejia RICH with results STAT Result Comment: Afri can Martiniquais GFR Calc Performed By: #### L 500.2500, L501.4020 ####[facility] [address] [place], [address] GAP 21 High 5-15 [facility] Comment on above: Order Comment: Comme nts: SPECIMEN #2'TROP' Serial specimen #1, #2 or #3: 2Cmeir RICH with results STAT Performed By: #### L 500.2500, L501.4020 ####[facility] [address] [place], [address] GFR/1.73 sq M.predicted among non-blacks MDRD (S/P/Bld) [Vol rate/Area] 50 mL/min/{1.73_m2} Low >60 [facility] Comment on above: Order Comment: Comme nts: SPECIMEN #2'TROP' Serial specimen #1, #2 or #3: Mejia RICH with results STAT Result Comment: Non- GFR Calc Performed By: #### L 500.2500, L501.4020 ####[facility] [address] [place], [address] Glucose [Mass/Vol] 419 mg/dL High 74-[address] [facility] Comment on above: Order Comment: Comme nts: SPECIMEN #2'TROP' Serial specimen #1, #2 or #3: Mejia RICH with results STAT Result Comment: Gluc ose result greater than or equal to 200 mg/dLsuggests DIABETES MELLITUS per A.D.A. criteria. Performed By: #### L 500.2500, L501.4020 ####[facility] [address] [place], [address] Potassium [Moles/Vol] 4.2 mmol/L Normal 3.5-5.1 [facility] Comment on above: Order Comment: Comme nts: SPECIMEN #2'TROP' Serial specimen #1, #2 or #3: Mejia RICH with results STAT Performed By: #### L 500.2500, L501.4020 ####[facility] [address] [place], [address] Sodium [Moles/Vol] 136 mmol/L Normal 136-[address] [facility] Comment on above: Order Comment: Comme nts: SPECIMEN #2'TROP' Serial specimen #1, #2 or #3: Mejia RICH with results STAT Performed By: #### L 500.2500, L501.4020 ####[facility] [address] [place], [address] Urea nitrogen [Mass/Vol] 22 mg/dL High 7-18 [facility] Comment on above: Order Comment: Comme nts: SPECIMEN #2'TROP' Serial specimen #1, #2 or #3: Mejia RICH with results STAT Performed By: #### L 500.2500, L501.4020 ####[facility] [address] [place], [address] Bedside Glucoseon 05-03-2024 FINGERSTICK GLU 293 mg/dL High 74-106 [facility] Comment on above: Result Comment: MARIA D GEMENT OF PATIENT CARE PER NURSING PROTOCOL Performed By: #### L 501.080 ####[facility] [address] [place], [address] FINGERSTICK GLU 154 mg/dL High 74-106 [facility] Comment on above: Result Comment: MARIA D GEMENT OF PATIENT CARE PER NURSING PROTOCOL Performed By: #### L 501.080 ####[facility] [address] [place], [address] FINGERSTICK GLU 114 mg/dL High 74-106 [facility] Comment on above: Result Comment: MARIA D GEMENT OF PATIENT CARE PER NURSING PROTOCOL Performed By: #### L 501.080 ####[facility] [address] [place], [address] FINGERSTICK GLU 114 mg/dL High 74-106 [facility] Comment on above: Result Comment: MARIA D GEMENT OF PATIENT CARE PER NURSING PROTOCOL Performed By: #### L 501.080 ####[facility] [address] [place], [address] FINGERSTICK GLU 108 mg/dL High 74-106 [facility] Comment on above: Result Comment: MARIA D GEMENT OF PATIENT CARE PER NURSING PROTOCOL Performed By: #### L 501.080 ####[facility] [address] [place], [address] FINGERSTICK GLU 121 mg/dL High 74-106 [facility] Comment on above: Result Comment: MARIA D GEMENT OF PATIENT CARE PER NURSING PROTOCOL Performed By: #### L 501.080 ####[facility] [address] [place], [address] FINGERSTICK GLU 183 mg/dL High 74-106 [facility] Comment on above: Result Comment: MARIA D GEMENT OF PATIENT CARE PER NURSING PROTOCOL Performed By: #### L 501.080 ####[facility] [address] [place], [address] FINGERSTICK GLU 196 mg/dL High 74-106 [facility] Comment on above: Result Comment: MARIA D GEMENT OF PATIENT CARE PER NURSING PROTOCOL Performed By: #### L 501.080 ####[facility] [address] [place], [address] FINGERSTICK GLU 212 mg/dL High 74-106 [facility] Comment on above: Result Comment: MARIA D GEMENT OF PATIENT CARE PER NURSING PROTOCOL Performed By: #### L 501.080 ####[facility] [address] [place], [address] FINGERSTICK GLU 211 mg/dL High 74-106 [facility] Comment on above: Result Comment: MARIA D GEMENT OF PATIENT CARE PER NURSING PROTOCOL Performed By: #### L 501.080 ####[facility] [address] [place], [address] FINGERSTICK GLU 244 mg/dL High 74-106 [facility] Comment on above: Result Comment: MARIA D GEMENT OF PATIENT CARE PER NURSING PROTOCOL Performed By: #### L 501.080 ####[facility] [address] [place], [address] FINGERSTICK GLU 218 mg/dL High [facility]106 [facility] Comment on above: Result Comment: MARIA D GEMENT OF PATIENT CARE PER NURSING PROTOCOL Performed By: #### L 501.080 ####[facility] [address] [place], [address] FINGERSTICK GLU 277 mg/dL High 74-106 [facility] Comment on above: Result Comment: MARIA D GEMENT OF PATIENT CARE PER NURSING PROTOCOL Performed By: #### L 501.080 ####[facility] [address] [place], [address] FINGERSTICK GLU 333 mg/dL High 74-106 [facility] Comment on above: Result Comment: MARIA D GEMENT OF PATIENT CARE PER NURSING PROTOCOL Performed By: #### L 501.080 ####[facility] [address] [place], [address] Blood Gases by [facility] 10-28- 024 SHAWNA TEST Positive Normal [facility] Comment on above: Performed By: #### L 9000.0800 ####[facility] [address] [place], [address] Base excess Calc (Bld) [Moles/Vol] -19 mmol/L Low -2 to +2 [facility] Comment on above: Performed By: #### L 9000.0800 ####[facility] [address] [place], [address] Blood Gas Type ART Normal [facility] Comment on above: Performed By: #### L 9000.0800 ####[facility] [address] [place], [address] CO2 [Moles/Vol] 10 mmol/L Normal [facility] Comment on above: Performed By: #### L 9000.0800 ####[facility] [address] [place], [address] HCO3 (Bld) [Moles/Vol] 8.9 mmol/L Low 22-26 [facility] Comment on above: Performed By: #### L 9000.0800 ####[facility] [address] [place], [address] Mode Not entered [facility] Comment on above: Performed By: #### L 9000.0800 ####[facility] [address] [place], [address] O2 Delivery Dev Room Air [facility] Comment on above: Performed By: #### L 9000.0800 ####[facility] [address] [place], [address] pCO2 22.5 mmHg Low 35-45 [facility] Comment on above: Performed By: #### L 9000.0800 ####[facility] [address] [place], [address] pH (Bld) 7.20 [pH] Low 7.35-7.45 [facility] Comment on above: Performed By: #### L 9000.0800 ####[facility] [address] [place], [address] PO2 103 mmHG High 75-100 [facility] Comment on above: Performed By: #### L 9000.0800 ####[facility] [address] [place], [address] Read Back By Yes [facility] Comment on above: Performed By: #### L 9000.0800 ####[facility] [address] [place], [address] smith [facility] Comment on above: Performed By: #### L 9000.0800 ####[facility] [address] [place], [address] SITE R Radial [facility] Comment on above: Performed By: #### L 9000.0800 ####[facility] [address] [place], [address] SO2 97 Normal 95-99 [facility] Comment on above: Performed By: #### L 9000.0800 ####[facility] [address] [place], [address] Time Given 21:30:27 [facility] Comment on above: Performed By: #### L 0.0800 ####[facility] [address] [place], [address] SHAWNA TEST Positive [facility] Comment on above: Performed By: #### L 8999.0800 ####[facility] [address] [place], [address] Base excess Calc (Bld) [Moles/Vol] -22 mmol/L Low -2 to +2 [facility] Comment on above: Performed By: #### L 0.0800 ####[facility] [address] [place], [address] Blood Gas Type ART [facility] Comment on above: Performed By: #### L 0.0800 ####[facility] [address] [place], [address] CO2 [Moles/Vol] 8 mmol/L [facility] Comment on above: Performed By: #### L 0.0800 ####[facility] [address] [place], [address] HCO3 (Bld) [Moles/Vol] 6.9 mmol/L Low 22-26 [facility] Comment on above: Performed By: #### L 9000.0800 ####[facility] [address] [place], [address] Mode Not entered [facility] Comment on above: Performed By: #### L 9000.0800 ####[facility] [address] [place], [address] O2 Delivery Dev Room Air [facility] Comment on above: Performed By: #### L 9000.0800 ####[facility] [address] [place], [address] pCO2 20.7 mmHg Low 35-45 [facility] Comment on above: Performed By: #### L 0.0800 ####[facility] [address] [place], [address] pH (Bld) 7.13 [pH] Invalid Interpretation Code 7.35-7.45 [facility] Comment on above: Performed By: #### L 9000.0800 ####[facility] [address] [place], [address] PO2 95 mmHG Normal 75-100 [facility] Comment on above: Performed By: #### L 0.0800 ####[facility] [address] [place], [address] Read Back By Yes Normal [facility] Comment on above: Performed By: #### L 0.0800 ####[facility] [address] [place], [address] Fernández [facility] Comment on above: Performed By: #### L 0.0800 ####[facility] [address] [place], [address] SITE L Radial Normal [facility] Comment on above: Performed By: #### L 0.0800 ####[facility] [address] [place], [address] SO2 95 Normal 95-99 [facility] Comment on above: Performed By: #### L 8999.0800 ####[facility] [address] [place], [address] Time Given 00:38:43 [facility] Comment on above: Performed By: #### L 0.0800 ####[facility] [address] [place], [address] CBC W/Diff, Automatedon 10-2 -2023 Absolute Lymph 2.67 X10 3/uL Normal 0.83-4.51 [facility] Comment on above: Performed By: #### L 500.2500, L501.2300, L100.0100, L501.4020, L501.9520 ####[facility] [address] [place], [address] Absolute Neut 5.5 X10 3/uL Normal 2.0-7.7 [facility] Comment on above: Performed By: #### L 500.2500, L501.2300, L100.0100, L501.4020, L501.9520 ####[facility] [address] [place], [address] Basophils/100 WBC (Bld) 0.4 % Normal 0-1 [facility] Comment on above: Performed By: #### L 500.2500, L501.2300, L100.0100, L501.4020, L501.9520 ####[facility] [address] [place], [address] Eosinophils/100 WBC (Bld) 0.2 % Normal 0-5 [facility] Comment on above: Performed By: #### L 500.2500, L501.2300, L100.0100, L501.4020, L501.9520 ####[facility] [address] [place], [address] Erythrocyte distribution width (RBC) [Ratio] 13.0 % Normal 11.6-14.6 [facility] Comment on above: Performed By: #### L 500.2500, L501.2300, L100.0100, L501.4020, L501.9520 ####[facility] [address] [place], [address] Hematocrit (Bld) [Volume fraction] 30.3 % Low 37-47 [facility] Comment on above: Performed By: #### L 500.2500, L501.2300, L100.0100, L501.4020, L501.9520 ####[facility] [address] [place], [address] Hemoglobin (Bld) [Mass/Vol] 10.0 g/dL Low 12.0-15.0 [facility] Comment on above: Performed By: #### L 500.2500, L501.2300, L100.0100, L501.4020, L501.9520 ####[facility] [address] [place], [address] IG% 0.600 Normal 0.0-0.9 [facility] Comment on above: Result Comment: IG% - Immature Granulocytes (promyelocytes, myelocytes andmetamyelocytes) > 1% indicates that a LEFT SHIFT is Present. Performed By: #### L 500.2500, L501.2300, L100.0100, L501.4020, L501.9520 ####[facility] [address] [place], [address] Lymphocytes/100 WBC (Bld) 29.5 % Normal 19-41 [facility] Comment on above: Performed By: #### L 500.2500, L501.2300, L100.0100, L501.4020, L501.9520 ####[facility] [address] [place], [address] MCH (RBC) [Entitic mass] 29.9 pg Normal 27.0-32.0 [facility] Comment on above: Performed By: #### L 500.2500, L501.2300, L100.0100, L501.4020, L501.9520 ####[facility] [address] [place], [address] MCHC (RBC) [Mass/Vol] 33.0 g/dL Normal 32-36 [facility] Comment on above: Performed By: #### L 500.2500, L501.2300, L100.0100, L501.4020, L501.9520 ####[facility] [address] [place], [address] MCV (RBC) [Entitic vol] 90.7 fL Normal 81-99 [facility] Comment on above: Performed By: #### L 500.2500, L501.2300, L100.0100, L501.4020, L501.9520 ####[facility] [address] [place], [address] Monocytes/100 WBC (Bld) 8.6 % Normal 0-10 [facility] Comment on above: Performed By: #### L 500.2500, L501.2300, L100.0100, L501.4020, L501.9520 ####[facility] [address] [place], [address] Neutrophils/100 WBC (Bld) 60.7 % Normal 47-70 [facility] Comment on above: Performed By: #### L 500.2500, L501.2300, L100.0100, L501.4020, L501.9520 ####[facility] [address] [place], [address] Nucleated RBC (Bld) [#/Vol] 0 10*3/uL Normal 0-5 [facility] Comment on above: Performed By: #### L 500.2500, L501.2300, L100.0100, L501.4020, L501.9520 ####[facility] [address] [place], [address] Platelet mean volume (Bld) [Entitic vol] 11.9 fL Normal 6.2-12.0 [facility] Comment on above: Performed By: #### L 500.2500, L501.2300, L100.0100, L501.4020, L501.9520 ####[facility] [address] [place], [address] Platelets (Bld) [#/Vol] 224 10*3/uL Normal 150-450 [facility] Comment on above: Performed By: #### L 500.2500, L501.2300, L100.0100, L501.4020, L501.9520 ####[facility] [address] [place], [address] RBC (Bld) [#/Vol] 3.34 10*6/uL Low 4.2-5.4 [facility] Comment on above: Performed By: #### L 500.2500, L501.2300, L100.0100, L501.4020, L501.9520 ####[facility] [address] [place], [address] RDW SD 42.6 fl Normal 35.1-43.9 [facility] Comment on above: Performed By: #### L 500.2500, L501.2300, L100.0100, L501.4020, L501.9520 ####[facility] [address] [place], [address] WBC (Bld) [#/Vol] 9.1 10*3/uL Normal 4.4-11.[address] [facility] Comment on above: Performed By: #### L 500.2500, L501.2300, L100.0100, L501.4020, L501.9520 ####[facility] [address] [place], [address] Hemoglobin A1con 05-03-2024 HbA1c (Bld) [Mass fraction] 13.7 % High 3.8-5.6 [facility] Comment on above: Result Comment: Norm al < 5.7 % Prediabetic 5.7 - 6.4 % Diabetic >or= 6.5 % Please note range changes. Performed By: #### L 500.2500, L505.5000, L501.9985 ####[facility] [address] [place], [address] L501.4020on 05-03-2024 TROPONIN-I HS 9 pg/mL Normal 3.0-54.0 [facility] Comment on above: Order Comment: Comme nts: SPECIMEN #3'TROP' Serial specimen #1, #2 or #3: 3Cmeir RICH with results STAT Result Comment: Plea se Note: New Test Units and Gender Specific Reference Ranges. For more information see Policy Stat Procedure [place] High Sensitivity Troponin (TNIH) and attachments. Performed By: #### L 500.2500, L501.2300, L100.0100, L501.4020, L501.9520 ####[facility] [address] [place], [address] TROPONIN-I HS 8 pg/mL Normal 3.0-54.0 [facility] Comment on above: Order Comment: Comme nts: SPECIMEN #2'TROP' Serial specimen #1, #2 or #3: 2Cmeir RICH with results STAT Result Comment: Plea se Note: New Test Units and Gender Specific Reference Ranges. For more information see Policy Stat Procedure [place] High Sensitivity Troponin (TNIH) and attachments. Performed By: #### L 500.2500, L501.4020 ####[facility] [address] [place], [address] Phosphoruson 05-03-2024 Phosphate [Mass/Vol] 2.1 mg/dL Low 2.5-4.9 [facility] Comment on above: Order Comment: Comme nts: SPECIMEN #3'TROP' Serial specimen #1, #2 or #3: 3Cmeir RICH with results STAT Performed By: #### L 500.2500, L501.2300, L100.0100, L501.4020, L501.9520 ####[facility] [address] [place], [address] Thyroid Stim Hormone (TSH)on 05-03-2024 TSH 0.332 uIU/mL Low 0.358-3.740 [facility] Comment on above: Order Comment: Comme nts: SPECIMEN #3'TROP' Serial specimen #1, #2 or #3: Alex RICH with results STAT Performed By: #### L 500.2500, L501.2300, L100.0100, L501.4020, L501.9520 ####[facility] [address] [place], [address] Urine Drug Screen (VISTA)on 05-03-2024 AMPHETAMINES Negative Normal <1000 ng/mL [facility] Comment on above: Order Comment: U Performed By: #### L 505.5000 ####[facility] [address] [place], [address] BARBITIURATES Negative Normal < 200 ng/mL [facility] Comment on above: Order Comment: U Performed By: #### L 505.5000 ####[facility] [address] [place], [address] BENZODIAZIPINE Negative Normal < 200 ng/mL [facility] Comment on above: Order Comment: U Performed By: #### L 505.5000 ####[facility] [address] [place], [address] COCAINE Negative Normal < 300 ng/mL [facility] Comment on above: Order Comment: U Performed By: #### L 505.5000 ####[facility] [address] [place], [address] ECSTACY Negative Normal < 500 ng/mL [facility] Comment on above: Order Comment: U Performed By: #### L 505.5000 ####[facility] [address] [place], [address] METHADONE Negative Normal < 300 ng/mL [facility] Comment on above: Order Comment: U Performed By: #### L 505.5000 ####[facility] [address] [place], [address] OPIATES Positive Abnormal < 300 ng/mL [facility] Comment on above: Order Comment: U Performed By: #### L 505.5000 ####[facility] [address] [place], [address] PCP Negative Normal < 25 ng/mL [facility] Comment on above: Order Comment: U Performed By: #### L 505.5000 ####[facility] [address] [place], [address] THC Negative Normal < 50 ng/mL [facility] Comment on above: Order Comment: U Performed By: #### L 505.5000 ####[facility] [address] [place], [address] VISTA UDS PH 5 Normal [facility] Comment on above: Order Comment: U Performed By: #### L 505.5000 ####[facility] [address] [place], [address] Venous Blood Gason 4 Blood Gas Type LIZY Normal [facility] Comment on above: Result Comment: dupl icate results Performed By: #### L 9000.0810 ####[facility] [address] [place], [address] CO2 [Moles/Vol] 17 mmol/L Low 23-33 [facility] Comment on above: Result Comment: dupl icate results Performed By: #### L 9000.0810 ####[facility] [address] [place], [address] FI02 21.0 Normal [facility] Comment on above: Result Comment: dupl icate results Performed By: #### L 9000.0810 ####[facility] [address] [place], [address] HCO3 (Bld) [Moles/Vol] 15 mmol/L Low 22-26 [facility] Comment on above: Result Comment: dupl icate results Performed By: #### L 9000.0810 ####[facility] [address] [place], [address] O2 Delivery Dev Not entered Normal [facility] Comment on above: Result Comment: dupl icate results Performed By: #### L 9000.0810 ####[facility] [address] [place], [address] SITE Not entered Normal [facility] Comment on above: Result Comment: dupl icate results Performed By: #### L 9000.0810 ####[facility] [address] [place], [address] VBG BE -12 mmol/L Low -1.0-3.5 [facility] Comment on above: Result Comment: dupl icate results Performed By: #### L 9000.0810 ####[facility] [address] [place], [address] VBG pCO2 38.2 mmHg Low 41-51 [facility] Comment on above: Result Comment: dupl icate results Performed By: #### L 9000.0810 ####[facility] [address] [place], [address] VBG pH 7.21 Low 7.32-7.42 [facility] Comment on above: Result Comment: dupl icate results Performed By: #### L 9000.0810 ####[facility] [address] [place], [address] VBG PO2 71 mmHg High 25-40 [facility] Comment on above: Result Comment: dupl icate results Performed By: #### L 9000.0810 ####[facility] [address] [place], [address] VBG SO2 90 High 50-70 [facility] Comment on above: Result Comment: dupl icate results Performed By: #### L 9000.0810 ####[facility] [address] [place], [address] 12 Lead EKGon 05-02-2024 12 Lead EKG Normal [facility] Acetone Serumon 05-02-2024 ACETONE SERUM LARGE Abnormal NEG [facility] Comment on above: Performed By: #### L 501.6900 ####[facility] [address] [place], [address] Alcohol, Blood (Medical)-Ser umon 05-02-2024 SERUM ETOH < 3.0 Normal [facility] Comment on above: Result Comment: The serum:whole blood ethanol ratio is approximately 1.14and varies slightly with hematocrit.Medical Alcohol reference interval and critical value innon-tolerant individuals; 50 - 100 Impairment 100 Intoxication 100 - 250 Severe Poisoning 250 - 400 Deep/possible fatal coma Performed By: #### L 501.9100 ####[facility] [address] [place], [address] Basic Metabolic Profile (BMP )on 05-02-2024 BUN Normal 7-18 [facility] Comment on above: Order Comment: Call MD with results STAT Result Comment: ARPIT ICATE, OK TO CANCEL BY JUNE TERAN ICU Performed By: #### L 500.2500, L505.5000, L501.9985 ####[facility] [address] [place], [address] BUN/CRE Normal 10-20 [facility] Comment on above: Order Comment: Call with results STAT Result Comment: IFTIKHARL ICATE, OK TO CANCEL BY JUNE TERAN ICU Performed By: #### L 500.2500, L505.5000, L501.9985 ####[facility] [address] [place], [address] CA,Total Normal 8.5-10.1 [facility] Comment on above: Order Comment: Call with results STAT Result Comment: DUPL ICATE, OK TO CANCEL BY JUNE PULMONARY DISEASE SPECIALIST Performed By: #### L 500.2500, L505.5000, L501.9985 ####[facility] [address] [place], [address] CL Normal 98-107 [facility] Comment on above: Order Comment: Call with results STAT Result Comment: DUPL VIRALTE, OK TO CANCEL BY JUNE PULMONARY DISEASE SPECIALIST Performed By: #### L 500.2500, L505.5000, L501.9985 ####[facility] [address] [place], [address] CO2 Normal 21.0-32.0 [facility] Comment on above: Order Comment: Call with results STAT Result Comment: DUPL VIRALTE, OK TO CANCEL BY JUNE PULMONARY DISEASE SPECIALIST Performed By: #### L 500.2500, L505.5000, L501.9985 ####[facility] [address] [place], [address] CREAT,SERUM Normal 0.55-1.02 [facility] Comment on above: Order Comment: Call with results STAT Result Comment: DUPL VIRALTE, OK TO CANCEL BY JUNE PULMONARY DISEASE SPECIALIST Performed By: #### L 500.2500, L505.5000, L501.9985 ####[facility] [address] [place], [address] EST GFR Normal >60 [facility] Comment on above: Order Comment: Call with results STAT Result Comment: DUPL ICATE, OK TO CANCEL BY JUNE PULMONARY DISEASE SPECIALIST Performed By: #### L 500.2500, L505.5000, L501.9985 ####[facility] [address] [place], [address] EST GFR - AA Normal >60 [facility] Comment on above: Order Comment: Call with results STAT Result Comment: DUPL VIRALTE, OK TO CANCEL BY JUNE PULMONARY DISEASE SPECIALIST Performed By: #### L 500.2500, L505.5000, L501.9985 ####[facility] [address] [place], [address] GAP Normal 5-15 [facility] Comment on above: Order Comment: Call MD with results STAT Result Comment: ARPIT HOUSE, OK TO CANCEL BY JUNE PULMONARY DISEASE SPECIALIST Performed By: #### L 500.2500, L505.5000, L501.9985 ####[facility] [address] [place], [address] GLU Normal 74-106 [facility] Comment on above: Order Comment: Call MD with results STAT Result Comment: ARPIT HOUSE, OK TO CANCEL BY JUNE PULMONARY DISEASE SPECIALIST Performed By: #### L 500.2500, L505.5000, L501.9985 ####[facility] [address] [place], [address] Potassium Normal 3.5-5.1 [facility] Comment on above: Order Comment: Call MD with results STAT Result Comment: IFTIKHARL VIRALTE, OK TO CANCEL BY JUNE PULMONARY DISEASE SPECIALIST Performed By: #### L 500.2500, L505.5000, L501.9985 ####[facility] [address] [place], [address] Basic Metabolic Profile (BMP) Normal 136-145 [facility] Comment on above: Order Comment: Call MD with results STAT Result Comment: ARPIT STRATTONTE, OK TO CANCEL BY JUNE PULMONARY DISEASE SPECIALIST Performed By: #### L 500.2500, L505.5000, L501.9985 ####[facility] [address] [place], [address] BUN Normal 7-18 [facility] Comment on above: Result Comment: Canc elled via OM: Duplicate Order Performed By: #### L 500.2500 ####[facility] [address] [place], [address] BUN/CRE Normal 10-20 [facility] Comment on above: Result Comment: Canc elled via OM: Duplicate Order Performed By: #### L 500.2500 ####[facility] [address] [place], [address] CA,Total Normal 8.5-10.1 [facility] Comment on above: Result Comment: Canc elled via OM: Duplicate Order Performed By: #### L 500.2500 ####[facility] [address] [place], [address] CL Normal 98-107 [facility] Comment on above: Result Comment: Canc elled via OM: Duplicate Order Performed By: #### L 500.2500 ####[facility] [address] [place], [address] CO2 Normal 21.0-32.0 [facility] Comment on above: Result Comment: Canc elled via OM: Duplicate Order Performed By: #### L 500.2500 ####[facility] [address] [place], [address] CREAT,SERUM Normal 0.55-1.02 [facility] Comment on above: Result Comment: Canc elled via OM: Duplicate Order Performed By: #### L 500.2500 ####[facility] [address] [place], [address] EST GFR Normal >60 [facility] Comment on above: Result Comment: Canc elled via OM: Duplicate Order Performed By: #### L 500.2500 ####[facility] [address] [place], [address] EST GFR - AA Normal >60 [facility] Comment on above: Result Comment: Canc elled via OM: Duplicate Order Performed By: #### L 500.2500 ####[facility] [address] [place], [address] GAP Normal 5-15 [facility] Comment on above: Result Comment: Canc elled via OM: Duplicate Order Performed By: #### L 500.2500 ####[facility] [address] [place], [address] GLU Normal 74-106 [facility] Comment on above: Result Comment: Canc elled via OM: Duplicate Order Performed By: #### L 500.2500 ####[facility] [address] [place], [address] Potassium Normal 3.5-5.1 [facility] Comment on above: Result Comment: Canc elled via OM: Duplicate Order Performed By: #### L 500.2500 ####[facility] [address] [place], [address] Basic Metabolic Profile (BMP) Normal 136-145 [facility] Comment on above: Result Comment: Canc elled via OM: Duplicate Order Performed By: #### L 500.2500 ####[facility] [address] [place], [address] Bedside Glucoseon 05-02-2024 FINGERSTICK GLU 392 mg/dL High 74-106 [facility] Comment on above: Result Comment: MARIA D GEMENT OF PATIENT CARE PER NURSING PROTOCOL Performed By: #### L 501.080 ####[facility] [address] [place], [address] [facility] BE Normal -2 to +2 [facility] Comment on above: Result Comment: resu lts in already Performed By: #### L 9000.0800 ####[facility] [address] [place], [address] HCO3 Normal 22-26 [facility] Comment on above: Result Comment: resu lts in already Performed By: #### L 9000.0800 ####[facility] [address] [place], [address] pCO2 Normal 35-45 [facility] Comment on above: Result Comment: resu lts in already Performed By: #### L 9000.0800 ####[facility] [address] [place], [address] pH Normal 7.35-7.45 [facility] Comment on above: Result Comment: resu lts in already Performed By: #### L 9000.0800 ####[facility] [address] [place], [address] PO2 Normal 75-100 [facility] Comment on above: Result Comment: resu lts in already Performed By: #### L 9000.0800 ####[facility] [address] [place], [address] SO2 Normal 95-99 [facility] Comment on above: Result Comment: resu lts in already Performed By: #### L 9000.0800 ####[facility] [address] [place], [address] TOTAL CO2 Normal [facility] Comment on above: Result Comment: resu lts in already Performed By: #### L 9000.0800 ####[facility] [address] [place], [address] CBC W/Diff, Automatedon 10-2 Absolute Lymph 1.55 X10 3/uL Normal 0.83-4.51 [facility] Comment on above: Performed By: #### L 501.2450, L300.8000, L100.0100, L501.4020, L500.4050 ####[facility] [address] [place], [address] Absolute Neut 6.1 X10 3/uL Normal 2.0-7.7 [facility] Comment on above: Performed By: #### L 501.2450, L300.8000, L100.0100, L501.4020, L500.4050 ####[facility] [address] [place], [address] Basophils/100 WBC (Bld) 0.5 % Normal 0-1 [facility] Comment on above: Performed By: #### L 501.2450, L300.8000, L100.0100, L501.4020, L500.4050 ####[facility] [address] [place], [address] Eosinophils/100 WBC (Bld) 0.5 % Normal 0-5 [facility] Comment on above: Performed By: #### L 501.2450, L300.8000, L100.0100, L501.4020, L500.4050 ####[facility] [address] [place], [address] Erythrocyte distribution width (RBC) [Ratio] 12.8 % Normal 11.6-14.6 [facility] Comment on above: Performed By: #### L 501.2450, L300.8000, L100.0100, L501.4020, L500.4050 ####[facility] [address] [place], [address] Hematocrit (Bld) [Volume fraction] 38.0 % Normal 37-47 [facility] Comment on above: Performed By: #### L 501.2450, L300.8000, L100.0100, L501.4020, L500.4050 ####[facility] [address] [place], [address] Hemoglobin (Bld) [Mass/Vol] 12.4 g/dL Normal 12.0-15.0 [facility] Comment on above: Performed By: #### L 501.2450, L300.8000, L100.0100, L501.4020, L500.4050 ####[facility] [address] [place], [address] IG% 0.500 Normal 0.0-0.9 [facility] Comment on above: Result Comment: IG% - Immature Granulocytes (promyelocytes, myelocytes andmetamyelocytes) > 1% indicates that a LEFT SHIFT is Present. Performed By: #### L 501.2450, L300.8000, L100.0100, L501.4020, L500.4050 ####[facility] [address] [place], [address] Lymphocytes/100 WBC (Bld) 18.9 % Low 19-41 [facility] Comment on above: Performed By: #### L 501.2450, L300.8000, L100.0100, L501.4020, L500.4050 ####[facility] [address] [place], [address] MCH (RBC) [Entitic mass] 29.6 pg Normal 27.0-32.0 [facility] Comment on above: Performed By: #### L 501.2450, L300.8000, L100.0100, L501.4020, L500.4050 ####[facility] [address] [place], [address] MCHC (RBC) [Mass/Vol] 32.6 g/dL Normal 32-36 [facility] Comment on above: Performed By: #### L 501.2450, L300.8000, L100.0100, L501.4020, L500.4050 ####[facility] [address] [place], [address] MCV (RBC) [Entitic vol] 90.7 fL Normal 81-99 [facility] Comment on above: Performed By: #### L 501.2450, L300.8000, L100.0100, L501.4020, L500.4050 ####[facility] [address] [place], [address] Monocytes/100 WBC (Bld) 5.5 % Normal 0-10 [facility] Comment on above: Performed By: #### L 501.2450, L300.8000, L100.0100, L501.4020, L500.4050 ####[facility] [address] [place], [address] Neutrophils/100 WBC (Bld) 74.1 % High 47-70 [facility] Comment on above: Performed By: #### L 501.2450, L300.8000, L100.0100, L501.4020, L500.4050 ####[facility] [address] [place], [address] Nucleated RBC (Bld) [#/Vol] 0 10*3/uL Normal 0-5 [facility] Comment on above: Performed By: #### L 501.2450, L300.8000, L100.0100, L501.4020, L500.4050 ####[facility] [address] [place], [address] Platelet mean volume (Bld) [Entitic vol] 11.7 fL Normal 6.2-12.0 [facility] Comment on above: Performed By: #### L 501.2450, L300.8000, L100.0100, L501.4020, L500.4050 ####[facility] [address] [place], [address] Platelets (Bld) [#/Vol] 288 10*3/uL Normal 150-450 [facility] Comment on above: Performed By: #### L 501.2450, L300.8000, L100.0100, L501.4020, L500.4050 ####[facility] [address] [place], [address] RBC (Bld) [#/Vol] 4.19 10*6/uL Low 4.2-5.4 [facility] Comment on above: Performed By: #### L 501.2450, L300.8000, L100.0100, L501.4020, L500.4050 ####[facility] [address] [place], [address] RDW SD 42.3 fl Normal 35.1-43.9 [facility] Comment on above: Performed By: #### L 501.2450, L300.8000, L100.0100, L501.4020, L500.4050 ####[facility] [address] [place], [address] WBC (Bld) [#/Vol] 8.2 10*3/uL Normal 4.4-11.[address] [facility] Comment on above: Performed By: #### L 501.2450, L300.8000, L100.0100, L501.4020, L500.4050 ####[facility] [address] [place], [address] Chest PA and Lateralon 05-02 Chest PA and Lateral Normal [facility] Comprehensive Metabolic Prof ilon 05-02-2024 Albumin [Mass/Vol] 4.3 g/dL Normal 3.2-5.[address] [facility] Comment on above: Order Comment: 'TROP ' Serial specimen #1, #2 or #3: 1 Performed By: #### L 501.2450, L300.8000, L100.0100, L501.4020, L500.4050 ####[facility] [address] [place], [address] Albumin/Globulin [Mass ratio] 1.1 {ratio} Normal 0.9-2.4 [facility] Comment on above: Order Comment: 'TROP ' Serial specimen #1, #2 or #3: 1 Performed By: #### L 501.2450, L300.8000, L100.0100, L501.4020, L500.4050 ####[facility] [address] [place], [address] ALK P 112 U/L Normal 45-117 [facility] Comment on above: Order Comment: 'TROP ' Serial specimen #1, #2 or #3: 1 Performed By: #### L 501.2450, L300.8000, L100.0100, L501.4020, L500.4050 ####[facility] [address] [place], [address] ALT [Catalytic activity/Vol] 15 U/L Normal 13-56 [facility] Comment on above: Order Comment: 'TROP ' Serial specimen #1, #2 or #3: 1 Performed By: #### L 501.2450, L300.8000, L100.0100, L501.4020, L500.4050 ####[facility] [address] [place], [address] AST [Catalytic activity/Vol] 7 U/L Low 15-37 [facility] Comment on above: Order Comment: 'TROP ' Serial specimen #1, #2 or #3: 1 Performed By: #### L 501.2450, L300.8000, L100.0100, L501.4020, L500.4050 ####[facility] [address] [place], [address] Bilirubin [Mass/Vol] 0.50 mg/dL Normal 0.20-1.00 [facility] Comment on above: Order Comment: 'TROP ' Serial specimen #1, #2 or #3: 1 Result Comment: For patients on eltrombopag therapy, use of Dimension [place] TBIL is not recommended. Performed By: #### L 501.2450, L300.8000, L100.0100, L501.4020, L500.4050 ####[facility] [address] [place], [address] BUN/CRE 16.5 RATIO Normal 10-20 [facility] Comment on above: Order Comment: 'TROP ' Serial specimen #1, #2 or #3: 1 Performed By: #### L 501.2450, L300.8000, L100.0100, L501.4020, L500.4050 ####[facility] [address] [place], [address] CA,Total 10.1 mg/dL Normal 8.5-10.1 [facility] Comment on above: Order Comment: 'TROP ' Serial specimen #1, #2 or #3: 1 Performed By: #### L 501.2450, L300.8000, L100.0100, L501.4020, L500.4050 ####[facility] [address] [place], [address] Chloride [Moles/Vol] 101 mmol/L Normal 98-107 [facility] Comment on above: Order Comment: 'TROP ' Serial specimen #1, #2 or #3: 1 Performed By: #### L 501.2450, L300.8000, L100.0100, L501.4020, L500.4050 ####[facility] [address] [place], [address] CO2 [Moles/Vol] 10.0 mmol/L Low 21.0-32.0 [facility] Comment on above: Order Comment: 'TROP ' Serial specimen #1, #2 or #3: 1 Performed By: #### L 501.2450, L300.8000, L100.0100, L501.4020, L500.4050 ####[facility] [address] [place], [address] Creatinine [Mass/Vol] 1.33 mg/dL High 0.55-1.02 [facility] Comment on above: Order Comment: 'TROP ' Serial specimen #1, #2 or #3: 1 Result Comment: The validity of the calculated GFR GFRAA in patients over70 years has not been determined. Clinical correlation isessential. Performed By: #### L 501.2450, L300.8000, L100.0100, L501.4020, L500.4050 ####[facility] [address] [place], [address] ECRCL 36.00 ml/min Normal [facility] Comment on above: Order Comment: 'TROP ' Serial specimen #1, #2 or #3: 1 Performed By: #### L 501.2450, L300.8000, L100.0100, L501.4020, L500.4050 ####[facility] [address] [place], [address] EST GFR - AA 52 mL/min Low >60 [facility] Comment on above: Order Comment: 'TROP ' Serial specimen #1, #2 or #3: 1 Result Comment: Afri can [place] GFR Calc Performed By: #### L 501.2450, L300.8000, L100.0100, L501.4020, L500.4050 ####[facility] [address] [place], [address] GAP 21 High 5-15 [facility] Comment on above: Order Comment: 'TROP ' Serial specimen #1, #2 or #3: 1 Performed By: #### L 501.2450, L300.8000, L100.0100, L501.4020, L500.4050 ####[facility] [address] [place], [address] GFR/1.73 sq M.predicted among non-blacks MDRD (S/P/Bld) [Vol rate/Area] 43 mL/min/{1.73_m2} Low >60 [facility] Comment on above: Order Comment: 'TROP ' Serial specimen #1, #2 or #3: 1 Result Comment: Non- GFR Calc Performed By: #### L 501.2450, L300.8000, L100.0100, L501.4020, L500.4050 ####[facility] [address] [place], [address] Globulin (S) [Mass/Vol] 4.0 g/dL Normal 2.2-4.2 [facility] Comment on above: Order Comment: 'TROP ' Serial specimen #1, #2 or #3: 1 Performed By: #### L 501.2450, L300.8000, L100.0100, L501.4020, L500.4050 ####[facility] [address] [place], [address] Glucose [Mass/Vol] 437 mg/dL High 74-[address] [facility] Comment on above: Order Comment: 'TROP ' Serial specimen #1, #2 or #3: 1 Result Comment: Gluc ose result greater than or equal to 200 mg/dLsuggests DIABETES MELLITUS per A.D.A. criteria. Performed By: #### L 501.2450, L300.8000, L100.0100, L501.4020, L500.4050 ####[facility] [address] [place], [place], [address] Potassium [Moles/Vol] 3.8 mmol/L Normal 3.5-5.1 [facility] Comment on above: Order Comment: 'TROP ' Serial specimen #1, #2 or #3: 1 Performed By: #### L 501.2450, L300.8000, L100.0100, L501.4020, L500.4050 ####[facility] [address] [place], [address] Sodium [Moles/Vol] 132 mmol/L Low 136-[address] [facility] Comment on above: Order Comment: 'TROP ' Serial specimen #1, #2 or #3: 1 Performed By: #### L 501.2450, L300.8000, L100.0100, L501.4020, L500.4050 ####[facility] [address] [place], [address] T PROT 8.3 g/dL High 6.4-8.2 [facility] Comment on above: Order Comment: 'TROP ' Serial specimen #1, #2 or #3: 1 Performed By: #### L 501.2450, L300.8000, L100.0100, L501.4020, L500.4050 ####[facility] [address] [place], [address] Urea nitrogen [Mass/Vol] 22 mg/dL High 7-18 [facility] Comment on above: Order Comment: 'TROP ' Serial specimen #1, #2 or #3: 1 Performed By: #### L 501.2450, L300.8000, L100.0100, L501.4020, L500.4050 ####[facility] [address] [place], [address] D-Dimer Quantitative (DVT/PE )on 05-02-2024 D-DIMER QUANT 0.37 FEU/ug/m Normal 0.27-0.49 [facility] Comment on above: Result Comment: NORM AL D-Dimer level (<0.50) indicates no DVT or PE. Performed By: #### L 501.2450, L300.8000, L100.0100, L501.4020, L500.4050 ####[facility] [address] [place], [address] Emergency Department Summary on 05-02-2024 Emergency Department Summary Normal [facility] H AND P Exam - Hospitaliston 05-02-2024 H&P Exam - Hospitalist Normal [facility] L501.4020on 05-02-2024 TROPONIN-I HS 5 pg/mL Normal 3.0-54.0 [facility] Comment on above: Order Comment: 'TROP ' Serial specimen #1, #2 or #3: 1 Result Comment: Plea se Note: New Test Units and Gender Specific Reference Ranges. For more information see Policy Stat Procedure [place] High Sensitivity Troponin (TNIH) and attachments. Performed By: #### L 501.2450, L300.8000, L100.0100, L501.4020, L500.4050 ####[facility] [address] [place], [address] Lactic Acidon 05-02-2024 Lactate [Moles/Vol] 0.9 mmol/L Normal 0.4-1.9 [facility] Comment on above: Order Comment: Y Performed By: #### L 503.6005 ####[facility] [address] [place], [address] Lipaseon 05-02-2024 Lipase [Catalytic activity/Vol] 41 U/L Normal 13-75 [facility] Comment on above: Order Comment: 'TROP ' Serial specimen #1, #2 or #3: 1 Result Comment: Lindy gabriel note:LIPASE revised reference range effective 22.New Lipase methodology. Expected to produce lower valuesthan the previous assay method.NEW Reference Range: 13 - 75 U/L Performed By: #### L 501.2450, L300.8000, L100.0100, L501.4020, L500.4050 ####[facility] [address] [place], [address] Magnesiumon 05-02-2024 Magnesium [Mass/Vol] 2.2 mg/dL Normal 1.6-2.6 [facility] Comment on above: Performed By: #### L 501.5200 ####[facility] [address] [place], [address] Osmolality, Serumon 05-02-20 24 OSMOLALITY,SER 334 mOsm/KG High 280-301 [facility] Comment on above: Order Comment: Comme nts: Add to ER Lab draw Performed By: #### L 501.7300 ####[facility] [address] [place], [address] Urinalysis, Completeon 05-02 BACTERIA 1+ /hpf Normal None Seen [facility] Comment on above: Order Comment: CLEAN CATCH Performed By: #### L 400.0001 ####[facility] [address] [place], [address] CAST,FINE GRAN 0-5 SEEN Normal 0-5 [facility] Comment on above: Order Comment: CLEAN CATCH Performed By: #### L 400.0001 ####[facility] [address] [place], [address] CAST,HYALINE 0-5 SEEN Normal 0-5 [facility] Comment on above: Order Comment: CLEAN CATCH Performed By: #### L 400.0001 ####[facility] [address] [place], [address] EPI,SQUAMOUS 5-10 SEEN Normal 5-10 [facility] Comment on above: Order Comment: CLEAN CATCH Performed By: #### L 400.0001 ####[facility] [address] [place], [address] WBC 25-50 SEEN Normal 0-5 [facility] Comment on above: Order Comment: CLEAN CATCH Performed By: #### L 400.0001 ####[facility] [address] [place], [address] KETONE UR 150 mg/dl Abnormal Negative [facility] Comment on above: Order Comment: CLEAN CATCH Result Comment: CRIT ICAL VALUE *HCRITICAL VALUE CALLED TO APOLONIA BRO05/02/242 Bruce Alexandra.RESULTS READ BACK BY SAME. Performed By: #### L 400.0001 ####[facility] [address] [place], [address] BILIRUBIN URINE Negative Normal Negative [facility] Comment on above: Order Comment: CLEAN CATCH Performed By: #### L 400.0001 ####[facility] [address] [place], [address] Clarity (U) Clear Normal Clear [facility] Comment on above: Order Comment: CLEAN CATCH Performed By: #### L 400.0001 ####[facility] [address] [place], [address] Color (U) Straw Normal Yellow [facility] Comment on above: Order Comment: CLEAN CATCH Performed By: #### L 400.0001 ####[facility] [address] [place], [address] GLUCOSE, UR 1000 mg/dl Abnormal Normal [facility] Comment on above: Order Comment: CLEAN CATCH Performed By: #### L 400.0001 ####[facility] [address] [place], [address] LEUK ESTERASE 100 /ul Abnormal Negative [facility] Comment on above: Order Comment: CLEAN CATCH Performed By: #### L 400.0001 ####[facility] [address] [place], [address] Nitrite Ql (U) Negative Normal Negative [facility] Comment on above: Order Comment: CLEAN CATCH Performed By: #### L 400.0001 ####[facility] [address] [place], [address] OCCULT BLOOD-UR 10 /ul Abnormal Negative [facility] Comment on above: Order Comment: CLEAN CATCH Performed By: #### L 400.0001 ####[facility] [address] [place], [address] pH UR 5.0 Normal 5.0 - 8.0 [facility] Comment on above: Order Comment: CLEAN CATCH Performed By: #### L 400.0001 ####[facility] [address] [place], [address] PROT DIPSTX 100 mg/dl Abnormal Negative [facility] Comment on above: Order Comment: CLEAN CATCH Performed By: #### L 400.0001 ####[facility] [address] [place], [address] SP.GR. DIPSTX 1.025 Normal 1.002-1.030 [facility] Comment on above: Order Comment: CLEAN CATCH Performed By: #### L 400.0001 ####[facility] [address] [place], [address] UROBILI Normal Normal Normal [facility] Comment on above: Order Comment: CLEAN CATCH Performed By: #### L 400.0001 ####[facility] [address] [facility] [address] Mucus Ql (Urine sed) 0 SEEN Normal [facility] Comment on above: Order Comment: CLEAN CATCH Performed By: #### L 400.0001 ####[facility] [address] [facility] [address] RBC 0 SEEN Normal 0-5 [facility] Comment on above: Order Comment: CLEAN CATCH Performed By: #### L 400.0001 ####[facility] [address] [facility] [address] Urine Drug Screen (VISTA)on 05-02-2024 DRUG CONFIRM Normal [facility] Comment on above: Result Comment: NOT [...] Performed By: #### L 500.2500, L505.5000, L501.9985 ####[facility] [address] [facility] [address] AMPHETAMINES Normal <1000 ng/mL [facility] Comment on above: Result Comment: NOT ENOUGH URINE Performed By: #### L 500.2500, L505.5000, L501.9985 ####[facility] [address] [facility] [address] BARBITIURATES Normal < 200 ng/mL [facility] Comment on above: Result Comment: NOT ENOUGH URINE Performed By: #### L 500.2500, L505.5000, L501.9985 ####[facility] [address] [facility] [place], [address] BENZODIAZIPINE Normal < 200 ng/mL [facility] Comment on above: Result Comment: NOT ENOUGH URINE Performed By: #### L 500.2500, L505.5000, L501.9985 ####[facility] [address] [place], [address] COCAINE Normal < 300 ng/mL [facility] Comment on above: Result Comment: NOT ENOUGH URINE Performed By: #### L 500.2500, L505.5000, L501.9985 ####[facility] [address] [place], [address] ECSTACY Normal < 500 ng/mL [facility] Comment on above: Result Comment: NOT ENOUGH URINE Performed By: #### L 500.2500, L505.5000, L501.9985 ####[facility] [address] [place], [address] METHADONE Normal < 300 ng/mL [facility] Comment on above: Result Comment: NOT ENOUGH URINE Performed By: #### L 500.2500, L505.5000, L501.9985 ####[facility] [address] [place], [address] OPIATES Normal < 300 ng/mL [facility] Comment on above: Result Comment: NOT ENOUGH URINE Performed By: #### L 500.2500, L505.5000, L501.9985 ####[facility] [address] [place], [address] PCP Normal < 25 ng/mL [facility] Comment on above: Result Comment: NOT ENOUGH URINE Performed By: #### L 500.2500, L505.5000, L501.9985 ####[facility] [address] [place], [address] THC Normal < 50 ng/mL [facility] Comment on above: Result Comment: NOT ENOUGH URINE Performed By: #### L 500.2500, L505.5000, L501.9985 ####[facility] [address] [place], [address] VISTA UDS PH Normal [facility] Comment on above: Result Comment: NOT ENOUGH URINE Performed By: #### L 500.2500, L505.5000, L501.9985 ####[facility] [address] [place], [address] Absolute lymphocyte countOrd ered By: Reece Smith on 07-29-2023 Lymphocytes Auto (Unsp spec) [#/Vol] 1.19 10*3/uL 0.83-4.51 [facility] Automated lymphocyte count a s percentage of total leukocytesOrdered By: Reece Smith on 07-29-2023 Lymphocytes/100 WBC Auto (Unsp spec) 19.3 % 19-41 [facility] Basophil percentageOrdered B y: Reece Smith on 07-29-2023 Basophil percentage 0-5 SEEN /hpf 0-5 [facility] Basophils/100 WBC (Bld) 0.5 % 0-1 [facility] Chloride [Moles/Vol] 108 mmol/L 98-107 [facility] Eosinophils/100 WBC (Bld) 1.1 % 0-5 [facility] Glucose [Mass/Vol] 127 mg/dL 74-[address] [facility] Comment on above: Fasting Glucose resu lt greater than or equal to 126 mg/dL suggests DIABETES MELLITUS per A.D.A. criteria. Hemoglobin (Bld) [Mass/Vol] 11.4 g/dL 12.0-15.0 [facility] Monocytes/100 WBC (Bld) 5.7 % 0-10 [facility] Neutrophils (Bld) [#/Vol] 4.5 10*3/uL 2.0-7.7 [facility] Neutrophils/100 WBC (Bld) 72.9 % 47-70 [facility] Potassium [Moles/Vol] 4.0 mmol/L 3.5-5.1 [facility] Sodium [Moles/Vol] 141 mmol/L 136-[address] [facility] WBC (Bld) [#/Vol] 6.2 10*3/uL 4.4-11.[address] [facility] Bilirubin Test strip Ql (U)O rdered By: Reece Smith on 07-29-2023 Bilirubin Ql (U) Negative Negative [facility] Determination of erythrocyte mean corpuscular volume (MCV)Ordered By: Reece Smith on 07-29-2023 MCV (RBC) [Entitic vol] 94.8 fL 81-99 [facility] Erythrocyte distribution wid th ratioOrdered By: Reece Smith on 07-29-2023 Erythrocyte distribution width (RBC) [Ratio] 14.5 % 11.6-14.6 [facility] Erythrocyte distribution wid th standard deviationOrdered By: Reece Smith on 07-29-2023 Erythrocyte distribution width (RBC) [Entitic vol] 50.0 fL 35.1-43.9 [facility] Hematocrit Auto (Bld) [Volum e fraction]Ordered By: Reece Smith on 07-29-2023 Hematocrit (Bld) [Volume fraction] 36.1 % 37-47 [facility] Immature granulocytes/100 WB C Auto (Bld)Ordered By: Reece Smith on 07-29-2023 Immature granulocytes/100 WBC (Bld) 0.500 % 0.0-0.9 [facility] Comment on above: IG% - Immature Granu locytes (promyelocytes, myelocytes and metamyelocytes) > 1% indicates that a LEFT SHIFT is Present. Ketones Test strip Ql (U)Ord ered By: Reece Smith on 07-29-2023 Ketones Ql (U) 50 mg/dl Negative [facility] Laboratory - Chemistry and C hemistry - challengeOrdered By: Reece Smith on 07-29-2023 CO2 [Moles/Vol] 27.0 mmol/L 21.0-32.0 [facility] Urea nitrogen/Creatinine [Mass ratio] 28.0 mg/mg 10-20 [facility] Laboratory - Hematology and Cell countsOrdered By: Reece Smith on 07-29-2023 MCH (RBC) [Entitic mass] 29.9 pg 27.0-32.0 [facility] MCHC (RBC) [Mass/Vol] 31.6 g/dL 32-36 [facility] Nucleated RBC/100 WBC (Bld) [Ratio] 0 % 0-5 [facility] Platelets (Bld) [#/Vol] 295 10*3/uL 150-450 [facility] Mucus LM Ql (Urine sed)Order ed By: Reece Smith on 07-29-2023 Mucus Ql (Urine sed) 0 SEEN /hpf [facility] Nitrite Test strip Ql (U)Ord ered By: Reece Smith on 07-29-2023 Nitrite Ql (U) Negative Negative [facility] No Panel InformationOrdered By: Reece Smith on 07-29-2023 Urine RBC 0 SEEN /hpf 0-5 [facility] Estimated Creatinine Clearance Calc 76.36 ml/min [facility] Estimated GFR (MDRD) Amer 121 mL/min >60 [facility] Comment on above: GFR Calc Estimated GFR (MDRD) Non-Af Amer 100 mL/min >60 [facility] Comment on above: Non- GFR Calc Troponin I High Sensitivity 10 pg/mL 3.0-54.0 [facility] Comment on above: Please Note: New Jessica t Units and Gender Specific Reference Ranges. For more information see Policy Stat Procedure [place] High Sensitivity Troponin (TNIH) and attachments. Platelet mean volume Amado-Ec ker (Bld) [Entitic vol]Ordered By: Reece Smith on 07-29-2023 Platelet mean volume (Bld) [Entitic vol] 12.1 fL 6.2-12.0 [facility] Protein Test strip Ql (U)Ord ered By: Reece Smith on 07-29-2023 Protein Ql (U) Negative Negative [facility] RBC Auto (Bld) [#/Vol]Ordere d By: Reece Smith on 07-29-2023 RBC (Bld) [#/Vol] 3.81 10*6/uL 4.2-5.4 [facility] Serum or plasma calcium jn urement (mass/volume)Ordered By: Reece Smith on 07-29-2023 Calcium [Mass/Vol] 9.8 mg/dL 8.5-10.1 [facility] Serum or plasma creatinine m easurement (mass/volume)Ordered By: Reece Smith on 07-29-2023 Creatinine [Mass/Vol] 0.64 mg/dL 0.55-1.02 [facility] Comment on above: The validity of the calculated GFR & GFRAA in patients over 70 years has not been determined. Clinical correlation is essential. Serum or plasma urea nitroge n measurement (mass/volume)Ordered By: Reece Smith on 07-29-2023 Urea nitrogen [Mass/Vol] 18 mg/dL 7-18 [facility] Squamous epithelial cells de tection in urine sediment by light microscopyOrdered By: Reece Smith on 07-29-2023 Epithelial cells.squamous LM Ql (Urine sed) 0 SEEN /hpf 5-10 [facility] Thin prep Papanicolaou smear with manual screeningOrdered By: Reece Smith on 07-29-2023 Thin prep Papanicolaou smear with manual screening 212 mg/dL 74-106 [facility] Comment on above: MANAGEMENT OF PATIEN T CARE PER NURSING PROTOCOL Thin prep Papanicolaou smear with manual screening 6 5-15 [facility] Urine blood detectionOrdered By: Reece Smith on 07-29-2023 RBC Ql (U) Negative Negative [facility] Urine clarityOrdered By: Neil Smith on 07-29-2023 Clarity (U) Clear Clear [facility] Urine color determinationOrd ered By: Reece Smith on 07-29-2023 Color (U) Yellow Yellow [facility] Urine glucose detectionOrder ed By: Reece Smith on 07-29-2023 Glucose Ql (U) Normal mg/dl Normal [facility] Urine leukocyte esterase det ection by dipstickOrdered By: Reece Smith on 07-29-2023 Leukocyte esterase Test strip Ql (U) 25 /ul Negative [facility] Urine pHOrdered By: Reece Smith on 07-29-2023 pH (U) 6.0 [pH] 5.0 - 8.0 [facility] Urine sediment bacteria coun t by microscopy (number/high power field)Ordered By: Reece Smith on 07-29-2023 Bacteria LM.HPF (Urine sed) [#/Area] 0 /[HPF] None Seen [facility] Urine specific gravity measu rementOrdered By: Reece Smith on 07-29-2023 Specific gravity (U) [Rel density] 1.020 1.002-1.030 [facility] Urine urobilinogen measureme ntOrdered By: Reece Smith on 07-29-2023 Urobilinogen Ql (U) Normal mg/dl Normal [facility] Absolute lymphocyte countOrd ered By: Sanjana Quigley on 07-06-2023 Lymphocytes Auto (Unsp spec) [#/Vol] 2.04 10*3/uL 0.83-4.51 [facility] Basophil percentageOrdered B y: Sanjana Quigley on 07-06-2023 Basophils/100 WBC (Bld) 1.0 % 0-1 [facility] Chloride [Moles/Vol] 110 mmol/L 98-107 [facility] Eosinophils/100 WBC (Bld) 1.6 % 0-5 [facility] Glucose [Mass/Vol] 132 mg/dL 74-[address] [facility] Comment on above: Fasting Glucose resu lt greater than or equal to 126 mg/dL suggests DIABETES MELLITUS per A.D.A. criteria. Neutrophils (Bld) [#/Vol] 1.3 10*3/uL 2.0-7.7 [facility] Neutrophils/100 WBC (Bld) 34.0 % 47-70 [facility] Potassium [Moles/Vol] 2.7 mmol/L 3.5-5.1 [facility] Comment on above: Critical Result(s) C alled at: 06:51:47 07/06/2023 by: June Fung to [facility]. Results read back by same. Sodium [Moles/Vol] 141 mmol/L 136-[address] [facility] WBC (Bld) [#/Vol] 3.9 10*3/uL 4.4-11.[address] [facility] Blood erythrocytes count (nu mber/volume)Ordered By: Sanjana Quigley on 07-06-2023 RBC (Bld) [#/Vol] 3.33 10*6/uL 4.2-5.4 [facility] Blood hemoglobin measurement (mass/volume)Ordered By: Sanjana Quigley on 07-06-2023 Hemoglobin (Bld) [Mass/Vol] 9.9 g/dL 12.0-15.0 [facility] Blood lymphocytes/100 leukoc ytesOrdered By: Sanjana Quigley on 07-06-2023 Lymphocytes/100 WBC (Bld) 53.0 % 19-41 [facility] Blood monocytes/100 leukocyt esOrdered By: Sanjana Quigley on 07-06-2023 Monocytes/100 WBC (Bld) 9.9 % 0-10 [facility] Blood platelet mean volumeOr dered By: Sanjana Quigley on 07-06-2023 Platelet mean volume (Bld) [Entitic vol] 11.9 fL 6.2-12.0 [facility] Determination of erythrocyte mean corpuscular volume (MCV)Ordered By: Sanjana Quigley on 07-06-2023 MCV (RBC) [Entitic vol] 86.2 fL 81-99 [facility] Glucose Glucometer (dC) [M ass/Vol]Ordered By: Sanjana Quigley on 07-06-2023 Glucose [Mass/Vol] 223 mg/dL 74-[address] [facility] Comment on above: MANAGEMENT OF PATIEN T CARE PER NURSING PROTOCOL Hematocrit Auto (Bld) [Volum e fraction]Ordered By: Sanjana Quigley on 07-06-2023 Hematocrit (Bld) [Volume fraction] 28.7 % 37-47 [facility] Laboratory - Chemistry and C hemistry - challengeOrdered By: Sanjana Quigley on 07-06-2023 CO2 [Moles/Vol] 27.0 mmol/L 21.0-32.0 [facility] Urea nitrogen/Creatinine [Mass ratio] 24.0 mg/mg 10-20 [facility] Laboratory - Hematology and Cell countsOrdered By: Sanjana Quigley on 07-06-2023 Erythrocyte distribution width (RBC) [Entitic vol] 41.4 fL 35.1-43.9 [facility] Erythrocyte distribution width (RBC) [Ratio] 13.2 % 11.6-14.6 [facility] Immature granulocytes/100 WBC (Bld) 0.500 % 0.0-0.9 [facility] Comment on above: IG% - Immature Granu locytes (promyelocytes, myelocytes and metamyelocytes) > 1% indicates that a LEFT SHIFT is Present. MCH (RBC) [Entitic mass] 29.7 pg 27.0-32.0 [facility] Nucleated RBC/100 WBC (Bld) [Ratio] 0 % 0-5 [facility] MCHC Auto (RBC) [Mass/Vol]Or dered By: Sanjana Quigley on 07-06-2023 MCHC (RBC) [Mass/Vol] 34.5 g/dL 32-36 [facility] No Panel InformationOrdered By: Sanjana Quigley on 07-06-2023 Estimated Creatinine Clearance Calc 97.74 ml/min [facility] Estimated GFR (MDRD) Amer 161 mL/min >60 [facility] Comment on above: GFR Calc Estimated GFR (MDRD) Non-Af Amer 133 mL/min >60 [facility] Comment on above: Non- GFR Calc Platelets bldOrdered By: Freya Quigley on 07-06-2023 Platelets (Bld) [#/Vol] 185 10*3/uL 150-450 [facility] Serum or plasma calcium jn urement (mass/volume)Ordered By: Sanjana Quigley on 07-06-2023 Calcium [Mass/Vol] 8.5 mg/dL 8.5-10.[address] [facility] Serum or plasma creatinine m easurement (mass/volume)Ordered By: Sanjana Quigley on 07-06-2023 Creatinine [Mass/Vol] 0.50 mg/dL 0.55-1.02 [facility] Comment on above: The validity of the calculated GFR & GFRAA in patients over 70 years has not been determined. Clinical correlation is essential. Serum or plasma urea nitroge n measurement (mass/volume)Ordered By: Sanjana Quigley on 07-06-2023 Urea nitrogen [Mass/Vol] 12 mg/dL 7-18 [facility] Thin prep Papanicolaou smear with manual screeningOrdered By: Sanjana Quigley on 07-06-2023 Thin prep Papanicolaou smear with manual screening 4 5-15 [facility] Basophil percentageOrdered B y: Sanjana Quigley on 07-04-2023 Lactate [Moles/Vol] 0.7 mmol/L 0.4-2.0 [facility] Absolute lymphocyte countOrd ered By: Steven Voss on 07-02-2023 Lymphocytes Auto (Unsp spec) [#/Vol] 1.43 10*3/uL 0.83-4.51 [facility] Basophil percentageOrdered B y: Steven Voss on 07-02-2023 Basophil percentage 25-50 SEEN /hpf 0-5 [facility] Basophils/100 WBC (Bld) 0.6 % 0-1 [facility] Chloride [Moles/Vol] 103 mmol/L 98-107 [facility] Eosinophils/100 WBC (Bld) 0.1 % 0-5 [facility] Glucose [Mass/Vol] 352 mg/dL 74-[address] [facility] Comment on above: Glucose result great er than or equal to 200 mg/dLsuggests DIABETES MELLITUS per A.D.A. criteria. Neutrophils (Bld) [#/Vol] 5.3 10*3/uL 2.0-7.7 [facility] Neutrophils/100 WBC (Bld) 74.0 % 47-70 [facility] Potassium [Moles/Vol] 3.8 mmol/L 3.5-5.1 [facility] Sodium [Moles/Vol] 135 mmol/L 136-[address] [facility] WBC (Bld) [#/Vol] 7.1 10*3/uL 4.4-11.[address] [facility] Bilirubin Test strip Ql (U)O rdered By: Steven Voss on 07-02-2023 Bilirubin Ql (U) Negative Negative [facility] Blood erythrocytes count (nu mber/volume)Ordered By: Steven Voss on 07-02-2023 RBC (Bld) [#/Vol] 4.71 10*6/uL 4.2-5.4 [facility] Blood hemoglobin measurement (mass/volume)Ordered By: Steven Voss on 07-02-2023 Hemoglobin (Bld) [Mass/Vol] 14.0 g/dL 12.0-15.0 [facility] Blood lymphocytes/100 leukoc ytesOrdered By: Steven Voss on 07-02-2023 Lymphocytes/100 WBC (Bld) 20.1 % 19-41 [facility] Blood monocytes/100 leukocyt esOrdered By: Steven Voss on 07-02-2023 Monocytes/100 WBC (Bld) 4.6 % 0-10 [facility] Blood platelet mean volumeOr dered By: Steven Voss on 07-02-2023 Platelet mean volume (Bld) [Entitic vol] 11.8 fL 6.2-12.0 [facility] Culture, urineOrdered By: Sherita Voss on 07-02-2023 Bacteria identified Cx Nom (U) Culture exhibits no growth. [facility] Determination of erythrocyte mean corpuscular volume (MCV)Ordered By: Steven Voss on 07-02-2023 MCV (RBC) [Entitic vol] 92.1 fL 81-99 [facility] Erythrocyte sedimentation ra teOrdered By: Steven Voss on 07-02-2023 ESR (Bld) [Velocity] 24 mm/h 0-30 [facility] Glucose Glucometer (dC) [M ass/Vol]Ordered By: Steven Voss on 07-02-2023 Glucose [Mass/Vol] 308 mg/dL 74-[address] [facility] Comment on above: MANAGEMENT OF PATIEN T CARE PER NURSING PROTOCOL Hematocrit Auto (Bld) [Volum e fraction]Ordered By: Steven Voss on 07-02-2023 Hematocrit (Bld) [Volume fraction] 43.4 % 37-47 [facility] Ketones Test strip Ql (U)Ord ered By: Steven Voss on 07-02-2023 Ketones Ql (U) 150 mg/dl Negative [facility] Comment on above: CRITICAL VALUE *HCRI TICAL VALUE VERIFIED. CALLED TO [id number] Nina Guajardo.RESULTS READ BACK BY SAME . Laboratory - Chemistry and C hemistry - challengeOrdered By: Steven Voss on 07-02-2023 CO2 [Moles/Vol] 10.0 mmol/L 21.0-32.0 [facility] Urea nitrogen/Creatinine [Mass ratio] 14.4 mg/mg 10-20 [facility] Laboratory - Drug toxicology Ordered By: Torsten Sutton on 07-02-2023 Amphetamines Ql (U) Negative <1000 ng/mL [facility] Benzodiazepines Ql (U) Positive < 200 ng/mL [facility] Cannabinoids Screen Ql (U) Negative < 50 ng/mL [facility] Cocaine Ql (U) Negative < 300 ng/mL [facility] Opiates Ql (U) Positive < 300 ng/mL [facility] Laboratory - Hematology and Cell countsOrdered By: Steven Voss on 07-02-2023 Erythrocyte distribution width (RBC) [Entitic vol] 43.7 fL 35.1-43.9 [facility] Erythrocyte distribution width (RBC) [Ratio] 12.9 % 11.6-14.6 [facility] Immature granulocytes/100 WBC (Bld) 0.600 % 0.0-0.9 [facility] Comment on above: IG% - Immature Granu locytes (promyelocytes, myelocytes and metamyelocytes) > 1% indicates that a LEFT SHIFT is Present. MCH (RBC) [Entitic mass] 29.7 pg 27.0-32.0 [facility] Nucleated RBC/100 WBC (Bld) [Ratio] 0 % 0-5 [facility] MCHC Auto (RBC) [Mass/Vol]Or dered By: Steven Voss on 07-02-2023 MCHC (RBC) [Mass/Vol] 32.3 g/dL 32-36 [facility] Mucus LM Ql (Urine sed)Order ed By: Steven Voss on 07-02-2023 Mucus Ql (Urine sed) 0 SEEN /hpf [facility] Nitrite Test strip Ql (U)Ord ered By: Stevenlois Voss on 07-02-2023 Nitrite Ql (U) Negative Negative [facility] No Panel InformationOrdered By: Torsten Sutton on 07-02-2023 Ethyl Alcohol Level < 3.0 mg/dL [facility] Comment on above: The serum:whole bloo d ethanol ratio is approximately 1.14and varies slightly with hematocrit. Medical Alcohol reference interval and critical value innon-tolerant individuals; 50 - 100 Impairment 100 Intoxication 100 - 250 Severe Poisoning 250 - 400 Deep/possible fatal coma MDMA (Ecstasy) Screen Negative < 500 ng/mL [facility] Urine Barbiturates Screen Negative < 200 ng/mL [facility] Urine Drug Screen Comment [facility] Comment on above: CONFIRMATORY TESTING FOR [...] Methadone Screen Negative < 300 ng/mL [facility] No Panel InformationOrdered By: Steven Voss on 07-02-2023 Estimated GFR (MDRD) Amer 64 mL/min >60 [facility] Comment on above: GFR Calc Estimated GFR (MDRD) Non-Af Amer 53 mL/min >60 [facility] Comment on above: Non- GFR Calc Platelets bldOrdered By: Steven Voss on 07-02-2023 Platelets (Bld) [#/Vol] 261 10*3/uL 150-450 [facility] Protein Test strip Ql (U)Ord ered By: Steven Voss on 07-02-2023 Protein Ql (U) 30 mg/dl Negative [facility] Serum or plasma calcium jn urement (mass/volume)Ordered By: Steven Voss on 07-02-2023 Calcium [Mass/Vol] 10.2 mg/dL 8.5-10.[address] [facility] Serum or plasma creatinine m easurement (mass/volume)Ordered By: Steven Voss on 07-02-2023 Creatinine [Mass/Vol] 1.11 mg/dL 0.55-1.02 [facility] Comment on above: The validity of the calculated GFR & GFRAA in patients over 70 years has not been determined. Clinical correlation is essential. Serum or plasma urea nitroge n measurement (mass/volume)Ordered By: Steven Voss on 07-02-2023 Urea nitrogen [Mass/Vol] 16 mg/dL 7-18 [facility] Squamous epithelial cells de tection in urine sediment by light microscopyOrdered By: Steven Voss on 07-02-2023 Epithelial cells.squamous LM Ql (Urine sed) 0-5 SEEN /hpf 5-10 [facility] Thin prep Papanicolaou smear with manual screeningOrdered By: Steven Voss on 07-02-2023 Thin prep Papanicolaou smear with manual screening 22 5-15 [facility] Urine blood detectionOrdered By: Steven Voss on 07-02-2023 RBC Ql (U) 50 /ul Negative [facility] RBC Ql (U) 0 SEEN /hpf 0-5 [facility] Urine clarityOrdered By: Steven Voss on 07-02-2023 Clarity (U) Clear Clear [facility] Urine color determinationOrd ered By: Steven Voss on 07-02-2023 Color (U) Yellow Yellow [facility] Urine glucose detectionOrder ed By: Steven Voss on 07-02-2023 Glucose Ql (U) 1000 mg/dl Normal [facility] Urine leukocyte esterase det ection by dipstickOrdered By: Steven Voss on 07-02-2023 Leukocyte esterase Test strip Ql (U) 100 /ul Negative [facility] Urine pHOrdered By: Steven abreu on 07-02-2023 pH (U) 5.0 [pH] 5.0 - 8.0 [facility] Urine phencyclidine (PCP) de tectionOrdered By: Torsten Sutton on 07-02-2023 Phencyclidine Ql (U) Negative < 25 ng/mL [facility] Urine sediment bacteria coun t by microscopy (number/high power field)Ordered By: Steven Voss on 07-02-2023 Bacteria LM.HPF (Urine sed) [#/Area] 0 /[HPF] None Seen [facility] Urine specific gravity measu rementOrdered By: Stevenlois Voss on 07-02-2023 Specific gravity (U) [Rel density] 1.020 1.002-1.030 [facility] Urobilinogen Auto test strip Ql (U)Ordered By: Steven Voss on 07-02-2023 Urobilinogen Ql (U) Normal mg/dl Normal [facility] Whole blood hemoglobin A1c/t otal hemoglobin ratio (mass fraction)Ordered By: Torsten Sutton on 07-02-2023 HbA1c (Bld) [Mass fraction] 13.9 % 3.8-5.6 [facility] Comment on above: Normal < 5.7 % Predi abetic 5.7 - 6.4 % Diabetic >or= 6.5 % Please note range changes. Glucose Glucometer (BldC) [M ass/Vol]Ordered By: Aleksandar Rebolledo on 07-01-2023 Glucose [Mass/Vol] 490 mg/dL 74-[address] [facility] Comment on above: Dr Abel Malagon NAGEMENT OF PATIENT CARE PER NURSING PROTOCOL Basophil percentageOrdered B y: Milind Lamb on 05-21-2023 Chloride [Moles/Vol] 100 mmol/L 98-107 [facility] Cholesterol [Mass/Vol] 223 mg/dL <200 [facility] Comment on above: <200 mg/dL Desirable 200-240 mg/dL Borderline >240 mg/dL High Risk Glucose [Mass/Vol] 371 mg/dL 74-[address] [facility] Comment on above: Glucose result great er than or equal to 200 mg/dLsuggests DIABETES MELLITUS per A.D.A. criteria. Potassium [Moles/Vol] 4.0 mmol/L 3.5-5.1 [facility] Comment on above: Slight Hemolysis, Re sult may be falsely increased. Sodium [Moles/Vol] 134 mmol/L 136-[address] [facility] Triglyceride [Mass/Vol] 116 mg/dL <199 [facility] Comment on above: The drugs N-Acetylcy steine and Metamizole may falsely depress this assay.Serum Triglycerides Reference Interval Normal <150 mg/dL Borderline high 150 - 199 mg/dL High 200 - 499 mg/dL Very High > or = 500 mg/dL Laboratory - Chemistry and C hemistry - challengeOrdered By: Milind Lamb on 05-21-2023 CO2 [Moles/Vol] 25.0 mmol/L 21.0-32.0 [facility] Urea nitrogen/Creatinine [Mass ratio] 22.5 mg/mg 10- [facility] No Panel InformationOrdered By: Milind Lamb on 05-21-2023 Estimated GFR (MDRD) Amer 83 mL/min >60 [facility] Comment on above: GFR Calc Estimated GFR (MDRD) Non-Af Amer 69 mL/min >60 [facility] Comment on above: Non- GFR Calc Serum or plasma calcium jn urement (mass/volume)Ordered By: Milind Lamb on 05-21-2023 Calcium [Mass/Vol] 9.2 mg/dL 8.5-10.[address] [facility] Serum or plasma cholesterol in HDL measurement (mass/volume)Ordered By: Milind Lamb on 05-21-2023 Cholesterol in HDL [Mass/Vol] 107 mg/dL >40 [facility] Comment on above: The drugs N-Acetylcy steine and Metamizole may falsely depress this assay. Reference Range HDL <40 mg/dL Low HDL Cholesterol HDL >or= 60 mg/dL High HDL Cholesterol Serum or plasma cholesterol in VLDL measurement (mass/volume)Ordered By: Milind Lamb on 05-21-2023 Cholesterol in VLDL [Mass/Vol] 23 mg/dL 5-40 [facility] Serum or plasma creatinine m easurement (mass/volume)Ordered By: Milind Lamb on 05-21-2023 Creatinine [Mass/Vol] 0.89 mg/dL 0.55-1.02 [facility] Comment on above: The validity of the calculated GFR & GFRAA in patients over 70 years has not been determined. Clinical correlation is essential. Serum or plasma low density lipoprotein (LDL) cholesterol measurement (mass/volume)Ordered By: Milind Lamb on 05-21-2023 Cholesterol in LDL [Mass/Vol] 93 mg/dL 0-130 [facility] Serum or plasma urea nitroge n measurement (mass/volume)Ordered By: Milind Lamb on 05-21-2023 Urea nitrogen [Mass/Vol] 20 mg/dL 7-18 [facility] Thin prep Papanicolaou smear with manual screeningOrdered By: Milind Lamb on 05-21-2023 Thin prep Papanicolaou smear with manual screening 9 5-15 [facility] Basophil percentageOrdered B y: Dr. Ahumada on 07-28-2022 Chloride [Moles/Vol] 114 mmol/L 98-107 [facility] Glucose [Mass/Vol] 80 mg/dL 74-[address] [facility] Potassium [Moles/Vol] 2.5 mmol/L 3.5-5.1 [facility] Comment on above: Critical Result(s) C alled at: 06:56:24 07/28/2022 by: Arvin Santos RN (MS3). Results read back by same. Sodium [Moles/Vol] 141 mmol/L 136-[address] [facility] Glucose Glucometer (BldC) [M ass/Vol]Ordered By: Dr. Ahumada on 07-28-2022 Glucose [Mass/Vol] 248 mg/dL 74-[address] [facility] Comment on above: MANAGEMENT OF PATIEN T CARE PER NURSING PROTOCOL Laboratory - Chemistry and C hemistry - challengeOrdered By: Dr. Ahumada on 07-28-2022 CO2 [Moles/Vol] 20.0 mmol/L 21.0-32.0 [facility] Urea nitrogen/Creatinine [Mass ratio] 13.7 mg/mg 10-20 [facility] No Panel InformationOrdered By: Dr. Ahumada on 07-28-2022 Estimated Creatinine Clearance Calc 79.08 ml/min [facility] Estimated GFR (MDRD) Amer 135 mL/min >60 [facility] Comment on above: GFR Calc Estimated GFR (MDRD) Non-Af Amer 111 mL/min >60 [facility] Comment on above: Non- GFR Calc Serum or plasma calcium jn urement (mass/volume)Ordered By: Dr. Ahumada on 07-28-2022 Calcium [Mass/Vol] 8.8 mg/dL 8.5-10.[address] [facility] Serum or plasma creatinine m easurement (mass/volume)Ordered By: Dr. Ahumada on 07-28-2022 Creatinine [Mass/Vol] 0.59 mg/dL 0.55-1.02 [facility] Comment on above: The validity of the calculated GFR & GFRAA in patients over 70 years has not been determined. Clinical correlation is essential. Serum or plasma urea nitroge n measurement (mass/volume)Ordered By: Dr. Ahumada on 07-28-2022 Urea nitrogen [Mass/Vol] 8 mg/dL 7-18 [facility] Thin prep Papanicolaou smear with manual screeningOrdered By: Dr. Ahumada on 07-28-2022 Thin prep Papanicolaou smear with manual screening 7 5-15 [facility] Absolute lymphocyte countOrd ered By: Dr. Ahumada on 07-27-2022 Lymphocytes Auto (Unsp spec) [#/Vol] 1.63 10*3/uL 0.83-4.51 [facility] Basophil percentageOrdered B y: Dr. Ahumada on 07-27-2022 Basophils/100 WBC (Bld) 0.4 % 0-1 [facility] Eosinophils/100 WBC (Bld) 0.9 % 0-5 [facility] Neutrophils (Bld) [#/Vol] 3.2 10*3/uL 2.0-7.7 [facility] Neutrophils/100 WBC (Bld) 58.4 % 47-70 [facility] WBC (Bld) [#/Vol] 5.5 10*3/uL 4.4-11.[address] [facility] Blood erythrocytes count (nu mber/volume)Ordered By: Dr. Ahumada on 07-27-2022 RBC (Bld) [#/Vol] 3.37 10*6/uL 4.2-5.4 [facility] Blood hemoglobin measurement (mass/volume)Ordered By: Dr. Ahumada on 07-27-2022 Hemoglobin (Bld) [Mass/Vol] 10.2 g/dL 12.0-15.0 [facility] Blood lymphocytes/100 leukoc ytesOrdered By: Dr. Ahumada on 07-27-2022 Lymphocytes/100 WBC (Bld) 29.5 % 19-41 [facility] Blood monocytes/100 leukocyt esOrdered By: Dr. Ahumada on 07-27-2022 Monocytes/100 WBC (Bld) 10.3 % 0-10 [facility] Blood platelet mean volumeOr dered By: Dr. Ahumada on 07-27-2022 Platelet mean volume (Bld) [Entitic vol] 11.1 fL 6.2-12.0 [facility] Determination of erythrocyte mean corpuscular volume (MCV)Ordered By: Dr. Ahumada on 07-27-2022 MCV (RBC) [Entitic vol] 85.5 fL 81-99 [facility] Hematocrit Auto (Bld) [Volum e fraction]Ordered By: Dr. Ahumada on 07-27-2022 Hematocrit (Bld) [Volume fraction] 28.8 % 37-47 [facility] Laboratory - Hematology and Cell countsOrdered By: Dr. Ahumada on 07-27-2022 Erythrocyte distribution width (RBC) [Entitic vol] 40.8 fL 35.1-43.9 [facility] Erythrocyte distribution width (RBC) [Ratio] 13.2 % 11.6-14.6 [facility] Immature granulocytes/100 WBC (Bld) 0.500 % 0.0-0.9 [facility] Comment on above: IG% - Immature Granu locytes (promyelocytes, myelocytes and metamyelocytes) > 1% indicates that a LEFT SHIFT is Present. MCH (RBC) [Entitic mass] 30.3 pg 27.0-32.0 [facility] Nucleated RBC/100 WBC (Bld) [Ratio] 0 % 0-5 [facility] MCHC Auto (RBC) [Mass/Vol]Or dered By: Dr. Ahumada on 07-27-2022 MCHC (RBC) [Mass/Vol] 35.4 g/dL 32-36 [facility] Comment on above: Delta: 32.8 on 07/26-1135 Platelets bldOrdered By: Dr. Ahumada on 07-27-2022 Platelets (Bld) [#/Vol] 156 10*3/uL 150-450 [facility] Absolute lymphocyte countOrd ered By: Dr. Voss on 07-26-2022 Lymphocytes Auto (Unsp spec) [#/Vol] 1.17 10*3/uL 0.83-4.51 [facility] Basophil percentageOrdered B y: Dr. Voss on 07-26-2022 Basophil percentage 0 SEEN /hpf 0-5 [facility] Basophils/100 WBC (Bld) 0.7 % 0-1 [facility] Chloride [Moles/Vol] 99 mmol/L 98-107 [facility] Eosinophils/100 WBC (Bld) 0.1 % 0-5 [facility] Glucose [Mass/Vol] 686 mg/dL 74-[address] [facility] Comment on above: Critical Result(s) C alled at: 12:11:35 07/26/2022 by: June Donnelly. Results read back by same.Glucose result greater than or equal to 200 mg/dLsuggests DIABETES MELLITUS per A.D.A. criteria. Neutrophils (Bld) [#/Vol] 7.7 10*3/uL 2.0-7.7 [facility] Neutrophils/100 WBC (Bld) 79.8 % 47-70 [facility] Potassium [Moles/Vol] 4.2 mmol/L 3.5-5.1 [facility] Sodium [Moles/Vol] 132 mmol/L 136-[address] [facility] WBC (Bld) [#/Vol] 9.7 10*3/uL 4.4-11.[address] [facility] Bilirubin Test strip Ql (U)O rdered By: Dr. Voss on 07-26-2022 Bilirubin Ql (U) Negative Negative [facility] Blood erythrocytes count (nu mber/volume)Ordered By: Dr. Voss on 07-26-2022 RBC (Bld) [#/Vol] 4.25 10*6/uL 4.2-5.4 [facility] Blood hemoglobin measurement (mass/volume)Ordered By: Dr. Voss on 07-26-2022 Hemoglobin (Bld) [Mass/Vol] 12.5 g/dL 12.0-15.0 [facility] Blood lymphocytes/100 leukoc ytesOrdered By: Dr. Voss on 07-26-2022 Lymphocytes/100 WBC (Bld) 12.1 % 19-41 [facility] Blood monocytes/100 leukocyt esOrdered By: Dr. Voss on 07-26-2022 Monocytes/100 WBC (Bld) 5.0 % 0-10 [facility] Blood platelet mean volumeOr dered By: Dr. Voss on 07-26-2022 Platelet mean volume (Bld) [Entitic vol] 12.0 fL 6.2-12.0 [facility] Determination of erythrocyte mean corpuscular volume (MCV)Ordered By: Dr. Voss on 07-26-2022 MCV (RBC) [Entitic vol] 89.6 fL 81-99 [facility] Glucose Glucometer (BldC) [M ass/Vol]Ordered By: Dr. Voss on 07-26-2022 Glucose [Mass/Vol] mg/dL 74-[address] [facility] Comment on above: Dr bAel RichmondMA NAGEMENT OF PATIENT CARE PER NURSING PROTOCOL Hematocrit Auto (Bld) [Volum e fraction]Ordered By: Dr. Voss on 07-26-2022 Hematocrit (Bld) [Volume fraction] 38.1 % 37-47 [facility] Ketones Test strip Ql (U)Ord ered By: Dr. Voss on 07-26-2022 Ketones Ql (U) 150 mg/dl Negative [facility] Comment on above: CRITICAL VALUE *HCRI TICAL VALUE VERIFIED. CALLED TO JAMILAH TERAN (ICU)07/26/22 1515 Eric Anthony.RESULTS READ BACK BY SAME. Laboratory - Chemistry and C hemistry - challengeOrdered By: Dr. Voss on 07-26-2022 CO2 [Moles/Vol] 6.0 mmol/L 21.0-32.0 [facility] Comment on above: Critical Result(s) C alled at: 12:11:35 07/26/2022 by: June Fung to [facility]. Results read back by same. Magnesium [Mass/Vol] 2.3 mg/dL 1.6-2.6 [facility] Urea nitrogen/Creatinine [Mass ratio] 10.6 mg/mg 10-20 [facility] Laboratory - Hematology and Cell countsOrdered By: Dr. Voss on 07-26-2022 Erythrocyte distribution width (RBC) [Entitic vol] 43.4 fL 35.1-43.9 [facility] Erythrocyte distribution width (RBC) [Ratio] 13.2 % 11.6-14.6 [facility] Immature granulocytes/100 WBC (Bld) 2.300 % 0.0-0.9 [facility] Comment on above: IG% - Immature Granu locytes (promyelocytes, myelocytes and metamyelocytes) > 1% indicates that a LEFT SHIFT is Present. MCH (RBC) [Entitic mass] 29.4 pg 27.0-32.0 [facility] Nucleated RBC/100 WBC (Bld) [Ratio] 0 % 0-5 [facility] MCHC Auto (RBC) [Mass/Vol]Or dered By: Dr. Voss on 07-26-2022 MCHC (RBC) [Mass/Vol] 32.8 g/dL 32-36 [facility] Mucus LM Ql (Urine sed)Order ed By: Dr. Voss on 07-26-2022 Mucus Ql (Urine sed) 0 SEEN /hpf [facility] Nitrite Test strip Ql (U)Ord ered By: Dr. Voss on 07-26-2022 Nitrite Ql (U) Negative Negative [facility] No Panel InformationOrdered By: Dr. Voss on 07-26-2022 Estimated Creatinine Clearance Calc 37.49 ml/min [facility] Estimated GFR (MDRD) Amer 53 mL/min >60 [facility] Comment on above: GFR Calc Estimated GFR (MDRD) Non-Af Amer 44 mL/min >60 [facility] Comment on above: Non- GFR Calc Platelets bldOrdered By: Dr. Voss on 07-26-2022 Platelets (Bld) [#/Vol] 234 10*3/uL 150-450 [facility] Protein Test strip Ql (U)Ord ered By: Dr. Voss on 07-26-2022 Protein Ql (U) 30 mg/dl Negative [facility] Serum or plasma calcium jn urement (mass/volume)Ordered By: Dr. Voss on 07-26-2022 Calcium [Mass/Vol] 9.7 mg/dL 8.5-10.[address] [facility] Serum or plasma creatinine m easurement (mass/volume)Ordered By: Dr. Voss on 07-26-2022 Creatinine [Mass/Vol] 1.32 mg/dL 0.55-1.02 [facility] Comment on above: The validity of the calculated GFR & GFRAA in patients over 70 years has not been determined. Clinical correlation is essential. Serum or plasma urea nitroge n measurement (mass/volume)Ordered By: Dr. Voss on 07-26-2022 Urea nitrogen [Mass/Vol] 14 mg/dL 7-18 [facility] Squamous epithelial cells de tection in urine sediment by light microscopyOrdered By: Dr. Voss on 07-26-2022 Epithelial cells.squamous LM Ql (Urine sed) 0 SEEN /hpf 5-10 [facility] Thin prep Papanicolaou smear with manual screeningOrdered By: Dr. Voss on 07-26-2022 Thin prep Papanicolaou smear with manual screening 27 5-15 [facility] Urine blood detectionOrdered By: Dr. Voss on 07-26-2022 RBC Ql (U) 10 /ul Negative [facility] RBC Ql (U) 0-5 SEEN /hpf 0-5 [facility] Urine clarityOrdered By: Dr. Voss on 07-26-2022 Clarity (U) Clear Clear [facility] Urine color determinationOrd ered By: Dr. Voss on 07-26-2022 Color (U) Straw Yellow [facility] Urine glucose detectionOrder ed By: Dr. Voss on 07-26-2022 Glucose Ql (U) 1000 mg/dl Normal [facility] Urine leukocyte esterase det ection by dipstickOrdered By: Dr. Voss on 07-26-2022 Leukocyte esterase Test strip Ql (U) Negative Negative [facility] Urine pHOrdered By: Dr. Melissa abreu on 07-26-2022 pH (U) 6.5 [pH] 5.0 - 8.0 [facility] Urine sediment bacteria coun t by microscopy (number/high power field)Ordered By: Dr. Voss on 07-26-2022 Bacteria LM.HPF (Urine sed) [#/Area] 0 /[HPF] None Seen [facility] Urine specific gravity measu rementOrdered By: Dr. Voss on 07-26-2022 Specific gravity (U) [Rel density] 1.015 1.002-1.030 [facility] Urobilinogen Auto test strip Ql (U)Ordered By: Dr. Voss on 07-26-2022 Urobilinogen Ql (U) Normal mg/dl Normal [facility] Whole blood hemoglobin A1c/t otal hemoglobin ratio (mass fraction)Ordered By: Dr. Ahumada on 07-26-2022 HbA1c (Bld) [Mass fraction] % 3.8-5.6 [facility] Comment on above: Normal < 5.7 % Predi abetic 5.7 - 6.4 % Diabetic >or= 6.5 % Please note range changes. RSV Ag EIAOrdered By: Dr. Malcom jackson on 05-03-2022 RSV Ag Immune stain Ql (Tiss) [facility] SARS-CoV-2 (COVID-19) Ag IA. rapid Ql (Resp)Ordered By: Dr. Gleason on 05-03-2022 SARS-CoV-2 Antigen (Rapid) SARS-CoV-2 (COVID 19) [facility] Basophil percentageOrdered B y: Dr. Mcclendon on 04-11-2022 Bilirubin [Mass/Vol] 0.50 mg/dL 0.20-1.00 [facility] Comment on above: For patients on eltr ombopag therapy, use of Dimension [place] TBIL is not recommended. Chloride [Moles/Vol] 103 mmol/L 98-107 [facility] Glucose [Mass/Vol] 139 mg/dL 74-[address] [facility] Comment on above: Fasting Glucose resu lt greater than or equal to 126 mg/dL suggests DIABETES MELLITUS per A.D.A. criteria. Potassium [Moles/Vol] 3.8 mmol/L 3.5-5.1 [facility] Protein [Mass/Vol] 7.7 g/dL 6.4-8.[address] [facility] Sodium [Moles/Vol] 139 mmol/L 136-[address] [facility] Laboratory - Chemistry and C hemistry - challengeOrdered By: Dr. Mcclendon on 04-11-2022 ALP [Catalytic activity/Vol] 88 U/L 45-117 [facility] ALT [Catalytic activity/Vol] 14 U/L 13-56 [facility] CO2 [Moles/Vol] 31.0 mmol/L 21.0-32.0 [facility] Globulin (S) [Mass/Vol] 3.5 g/dL 2.2-4.2 [facility] Urea nitrogen/Creatinine [Mass ratio] 17.6 mg/mg 10-20 [facility] No Panel InformationOrdered By: Dr. Mcclendon on 04-11-2022 Estimated GFR (MDRD) Amer 113 mL/min >60 [facility] Comment on above: GFR Calc Estimated GFR (MDRD) Non-Af Amer 94 mL/min >60 [facility] Comment on above: Non- GFR Calc Serum or plasma albumin jn urement (mass/volume)Ordered By: Dr. Mcclendon on 04-11-2022 Albumin [Mass/Vol] 4.2 g/dL 3.2-5.[address] [facility] Serum or plasma albumin/glob ulin mass ratioOrdered By: Dr. Mcclendon on 04-11-2022 Albumin/Globulin [Mass ratio] 1.2 {ratio} 0.9-2.4 [facility] Serum or plasma calcium jn urement (mass/volume)Ordered By: Dr. Mcclendon on 04-11-2022 Calcium [Mass/Vol] 9.7 mg/dL 8.5-10.[address] [facility] Serum or plasma creatinine m easurement (mass/volume)Ordered By: Dr. Mcclendon on 04-11-2022 Creatinine [Mass/Vol] 0.68 mg/dL 0.55-1.02 [facility] Comment on above: The validity of the calculated GFR & GFRAA in patients over 70 years has not been determined. Clinical correlation is essential. Serum or plasma urea nitroge n measurement (mass/volume)Ordered By: Dr. Mcclendon on 04-11-2022 Urea nitrogen [Mass/Vol] 12 mg/dL 7-18 [facility] Thin prep Papanicolaou smear with manual screeningOrdered By: Dr. Mcclendon on 04-11-2022 Thin prep Papanicolaou smear with manual screening 8 U/L 15-37 [facility] Thin prep Papanicolaou smear with manual screening 5 5-15 [facility] Absolute lymphocyte counton 03-06-2022 Lymphocytes Auto (Unsp spec) [#/Vol] 1.89 10*3/uL 0.83-4.51 [facility] Work Phone: Basophil percentageon 2021 Basophil percentage 4.0 mg/dL 2.5-4.9 [facility] Work Phone: Chloride [Moles/Vol] 111 mmol/L 98-107 [facility] Work Phone: Glucose [Mass/Vol] 233 mg/dL 74-[address] [facility] Work Phone: Comment on above: Glucose result great er than or equal to 200 mg/dLsuggests DIABETES MELLITUS per A.D.A. criteria. Potassium [Moles/Vol] 4.3 mmol/L 3.5-5.1 [facility] Work Phone: Sodium [Moles/Vol] 141 mmol/L 136-[address] [facility] Work Phone: Basophils/100 WBC (Bld) 0.5 % 0-1 [facility] Work Phone: Bilirubin [Mass/Vol] 0.30 mg/dL 0.20-1.00 [facility] Work Phone: Comment on above: For patients on eltr ombopag therapy, use of Dimension [place] TBIL is not recommended. Eosinophils/100 WBC (Bld) 1.2 % 0-5 [facility] Work Phone: Neutrophils (Bld) [#/Vol] 1.6 10*3/uL 2.0-7.7 [facility] Work Phone: Neutrophils/100 WBC (Bld) 37.9 % 47-70 [facility] Work Phone: Protein [Mass/Vol] 5.6 g/dL 6.4-8.[address] [facility] Work Phone: WBC (Bld) [#/Vol] 4.1 10*3/uL 4.4-11.[address] [facility] Work Phone: Blood erythrocytes count (nu mber/volume)on 03-06-2022 RBC (Bld) [#/Vol] 3.50 10*6/uL 4.2-5.4 [facility] Work Phone: Blood hemoglobin measurement (mass/volume)on 03-06-2022 Hemoglobin (Bld) [Mass/Vol] 10.8 g/dL 12.0-15.0 [facility] Work Phone: Blood lymphocytes/100 leukoc yteson 03-06-2022 Lymphocytes/100 WBC (Bld) 46.0 % 19-41 [facility] Work Phone: Blood monocytes/100 leukocyt eson 03-06-2022 Monocytes/100 WBC (Bld) 13.9 % 0-10 [facility] Work Phone: Blood platelet mean volumeon 03-06-2022 Platelet mean volume (Bld) [Entitic vol] 11.0 fL 6.2-12.0 [facility] Work Phone: Determination of erythrocyte mean corpuscular volume (MCV)on 03-06-2022 MCV (RBC) [Entitic vol] 88.3 fL 81-99 [facility] Work Phone: [phone] Glucose Glucometer (BldC) [M ass/Vol]on 03-06-2022 Glucose [Mass/Vol] 184 mg/dL 74-[address] [facility] Work Phone: [phone] Comment on above: MANAGEMENT OF PATIEN T CARE PER NURSING PROTOCOL Hematocrit Auto (Bld) [Volum e fraction]on 03-06-2022 Hematocrit (Bld) [Volume fraction] 30.9 % 37-47 [facility] Work Phone: [phone] Laboratory - Chemistry and C hemistry - challengeon 03-06-2022 CO2 [Moles/Vol] 25.0 mmol/L 21.0-32.0 [facility] Work Phone: [phone] Urea nitrogen/Creatinine [Mass ratio] 6.8 mg/mg 10-20 [facility] Work Phone: [phone] ALP [Catalytic activity/Vol] 71 U/L 45-117 [facility] Work Phone: [phone] ALT [Catalytic activity/Vol] 11 U/L 13-56 [facility] Work Phone: [phone] Globulin (S) [Mass/Vol] 2.9 g/dL 2.2-4.2 [facility] Work Phone: [phone] Magnesium [Mass/Vol] 2.5 mg/dL 1.6-2.6 [facility] Work Phone: [phone] Laboratory - Hematology and Cell countson 03-06-2022 Erythrocyte distribution width (RBC) [Entitic vol] 45.3 fL 35.1-43.9 [facility] Work Phone: [phone] Erythrocyte distribution width (RBC) [Ratio] 14.2 % 11.6-14.6 [facility] Work Phone: [phone] Immature granulocytes/100 WBC (Bld) 0.500 % 0.0-0.9 [facility] Work Phone: [phone] Comment on above: IG% - Immature Granu locytes (promyelocytes, myelocytes and metamyelocytes) > 1% indicates that a LEFT SHIFT is Present. MCH (RBC) [Entitic mass] 30.9 pg 27.0-32.0 [facility] Work Phone: [phone] Nucleated RBC/100 WBC (Bld) [Ratio] 0 % 0-5 [facility] Work Phone: [phone] MCHC Auto (RBC) [Mass/Vol]on 03-06-2022 MCHC (RBC) [Mass/Vol] 35.0 g/dL 32-36 [facility] Work Phone: [phone] No Panel Informationon 03-06 Estimated Creatinine Clearance Calc 67.71 ml/min [facility] Work Phone: [phone] Estimated GFR (MDRD) Amer 103 mL/min >60 [facility] Work Phone: [phone] Comment on above: GFR Calc Estimated GFR (MDRD) Non-Af Amer 85 mL/min >60 [facility] Work Phone: [phone] Comment on above: Non- GFR Calc Platelets bldon 03-06-2022 Platelets (Bld) [#/Vol] 131 10*3/uL 150-450 [facility] Work Phone: [phone] Serum or plasma albumin jn urement (mass/volume)on 03-06-2022 Albumin [Mass/Vol] 2.7 g/dL 3.2-5.[address] [facility] Work Phone: [phone] Serum or plasma albumin/glob ulin mass ratioon 03-06-2022 Albumin/Globulin [Mass ratio] 0.9 {ratio} 0.9-2.4 [facility] Work Phone: [phone] Serum or plasma calcium jn urement (mass/volume)on 03-06-2022 Calcium [Mass/Vol] 8.7 mg/dL 8.5-10.[address] [facility] Work Phone: [phone] Serum or plasma creatinine m easurement (mass/volume)on 03-06-2022 Creatinine [Mass/Vol] 0.74 mg/dL 0.55-1.02 [facility] Work Phone: [phone] Comment on above: The validity of the calculated GFR & GFRAA in patients over 70 years has not been determined. Clinical correlation is essential. Serum or plasma urea nitroge n measurement (mass/volume)on 03-06-2022 Urea nitrogen [Mass/Vol] 5 mg/dL 7-18 [facility] Work Phone: Thin prep Papanicolaou smear with manual screeningon 03-06-2022 Thin prep Papanicolaou smear with manual screening 5 5-15 [facility] Work Phone: Thin prep Papanicolaou smear with manual screening 11 U/L 15-37 [facility] Work Phone: [phone] Assessment of wrist artery p atency prior to arterial punctureon 03-04-2022 Arterial patency Wrist artery --pre arterial puncture Positive [facility] Work Phone: [phone] Base excesson 03-04-2022 Base excess Calc (BldV) [Moles/Vol] -17 mmol/L -2-2 [facility] Work Phone: Basophil percentageon 2021 Basophil percentage 10.7 mmol/L 22- [facility] Work Phone: Basophils/100 WBC (Bld) 96 % 95-99 [facility] Work Phone: Blood platelet morphology de termination (nominal result)on 03-04-2022 Platelet morphology finding Nom (Bld) CLUMPED [facility] Work Phone: CO2 (BldA) [Partial pressure ]on 03-04-2022 CO2 (Bld) [Partial pressure] 24.5 mm[Hg] 35-45 [facility] Work Phone: Laboratory - Chemistry and C hemistry - challengeon 03-04-2022 Lipase [Catalytic activity/Vol] 497 U/L 73-393 [facility] Work Phone: No Panel Informationon 03-04 Blood Gas Oxygen Percent 21 [facility] Work Phone: [phone] Blood Gas Sample Site L Radial [facility] Work Phone: [phone] Blood Gas Specimen Type ART [facility] Work Phone: Blood Gas Total CO2 12 mmol/L [facility] Work Phone: Oxygen (BldA) [Partial press ure]on 03-04-2022 Oxygen (Bld) [Partial pressure] 89 mmHG 75-100 [facility] Work Phone: Whole blood hemoglobin A1c/t otal hemoglobin ratio (mass fraction)on 03-04-2022 HbA1c (Bld) [Mass fraction] 13.4 % 3.8-5.6 [facility] Work Phone: Comment on above: Normal < 5.7 % Predi abetic 5.7 - 6.4 % Diabetic >or= 6.5 % Please note range changes. pH measurementon 03-04-2022 pH (Unsp spec) 7.25 [pH] 7.35-7.45 [facility] Work Phone: Basophil percentageon 2021 Basophil percentage 0-5 SEEN /hpf 0-5 [facility] Work Phone: Lactate [Moles/Vol] 1.2 mmol/L 0.4-2.0 [facility] Work Phone: Bilirubin Test strip Ql (U)o n 03-03-2022 Bilirubin Ql (U) Negative Negative [facility] Work Phone: INR in Blood by Coagulation assayon 03-03-2022 INR Coag (Bld) [Relative time] 1.1 {INR} [facility] Work Phone: Ketones Test strip Ql (U)on 03-03-2022 Ketones Ql (U) 150 mg/dl Negative [facility] Work Phone: Comment on above: CRITICAL VALUE VERIF IED. CALLED TO BIJU RIOS RN (ER)03/03/222004 Blaine Villanueva.RESULTS READ BACK BY SAME . CRITICAL VALUE *H Laboratory - Coagulationon 0 03-03-2022 PT Coag (PPP) [Time] 13.4 s 11.7-14.9 [facility] Work Phone: Mucus LM Ql (Urine sed)on Mucus Ql (Urine sed) 0 SEEN /hpf [facility] Work Phone: [phone] Nitrite Test strip Ql (U)on 03-03-2022 Nitrite Ql (U) Negative Negative [facility] Work Phone: [phone] Panel Informationon 03-03 Bld Gas Crit Called To/Read Back By Yes [facility] Work Phone: [phone] Blood Gas Notified Whom white [facility] Work Phone: [phone] Ethyl Alcohol Level < 3.0 mg/dL [facility] Work Phone: [phone] Comment on above: The serum:whole bloo d ethanol ratio is approximately 1.14and varies slightly with hematocrit. Medical Alcohol reference interval and critical value innon-tolerant individuals; 50 - 100 Impairment 100 Intoxication 100 - 250 Severe Poisoning 250 - 400 Deep/possible fatal coma Troponin I High Sensitivity 11 pg/mL 3.0-54.0 [facility] Work Phone: [phone] Comment on above: Please Note: New Jessica t Units and Gender Specific Reference Ranges. For more information see Policy Stat Procedure [place] High Sensitivity Troponin (TNIH) and attachments. Protein Test strip Ql (U)on 03-03-2022 Protein Ql (U) 30 mg/dl Negative [facility] Work Phone: [phone] Serum or plasma acetone jn urement (mass/volume)on 03-03-2022 Acetone [Mass/Vol] LARGE NEG [facility] Work Phone: [phone] Squamous epithelial cells de tection in urine sediment by light microscopyon 03-03-2022 Epithelial cells.squamous LM Ql (Urine sed) 0-5 SEEN /hpf 5-10 [facility] Work Phone: [phone] Urine blood detectionon 02-05 RBC Ql (U) 25 /ul Negative [facility] Work Phone: [phone] RBC Ql (U) 0-5 SEEN /hpf 0-5 [facility] Work Phone: [phone] Urine clarityon 03-03-2022 Clarity (U) Clear Clear [facility] Work Phone: Urine coarse granular cast d etectionon 03-03-2022 Coarse Granular Casts LM Ql (Urine sed) 5-10 SEEN /lpf 0-5 /lpf [facility] Work Phone: Urine color determinationon 03-03-2022 Color (U) Straw Yellow [facility] Work Phone: Urine glucose detectionon Glucose Ql (U) 1000 mg/dl Normal [facility] Work Phone: Urine leukocyte esterase det ection by dipstickon 03-03-2022 Leukocyte esterase Test strip Ql (U) 100 /ul Negative [facility] Work Phone: Urine pHon 03-03-2022 pH (U) 5.0 [pH] 5.0 - 8.0 [facility] Work Phone: Urine sediment bacteria coun t by microscopy (number/high power field)on 03-03-2022 Bacteria LM.HPF (Urine sed) [#/Area] 1 /[HPF] None Seen [facility] Work Phone: Urine sediment yeast count b y microscopy (number/high powered field)on 03-03-2022 Yeast LM.HPF (Urine sed) [#/Area] RARE /hpf None Seen [facility] Work Phone: Urine specific gravity measu rementon 03-03-2022 Specific gravity (U) [Rel density] 1.020 1.002-1.030 [facility] Work Phone: Urobilinogen Auto test strip Ql (U)on 03-03-2022 Urobilinogen Ql (U) Normal mg/dl Normal [facility] Work Phone: XR ELBOW MINIMUM [...] AM Sign Date: 07/22/2018 9:20:04 AM Normal [facility] ([place]) No Panel Information SARS-CoV-2 & FLU Antigen (Rapid) [facility] Work Phone: SARS-CoV-2 (COVID-19) Ag IA. rapid Ql (Resp) SARS-CoV-2 Antigen (Rapid) SARS-CoV-2 (COVID 19) [facility] Work Phone: Vital Signs Date Time Vital Sign Value Performing Clinician Faci lity 03-17-2025 17:37-0400 Body temperature 97.8 [degF] Dr. Milind Lamb MD Work Phone: [facility] 03-17-2025 17:37-0400 Diastolic blood pressure 85 mm[Hg] Dr. Milind Lamb MD Work Phone: [facility] 03-17-2025 17:37-0400 Heart rate 94 /min Dr. Milind Lamb MD Work Phone: [facility] 03-17-2025 17:37-0400 Respiratory rate 16 /min Dr. Milind Lamb MD Work Phone: [facility] 03-17-2025 17:37-0400 SaO2% (BldA) [Mass fraction] 99 % Dr. Milind Lamb MD Work Phone: [facility] 03-17-2025 17:37-0400 Systolic blood pressure 163 mm[Hg] Dr. Milind Lamb MD Work Phone: [facility] 03-17-2025 13:56-0400 Body height 160.[address] Milind Lamb MD Work Phone: [facility] 03-17-2025 13:56-0400 Body mass index (BMI) [Ratio] 22.6 kg/m2 Dr. Milind Lamb MD Work Phone: [facility] 03-17-2025 13:56-0400 Body weight 58.[address] Milind Lamb MD Work Phone: [facility] 03-04-2025 23:04-0400 Body temperature 98.5 [degF] Dr. Milind Lamb MD Work Phone: [facility] 03-04-2025 23:04-0400 Diastolic blood pressure 73 mm[Hg] Dr. Milind Lamb MD Work Phone: [facility] 03-04-2025 23:04-0400 Heart rate 79 /min Dr. Milind Lamb MD Work Phone: [facility] 03-04-2025 23:04-0400 Respiratory rate 18 /min Dr. Milind Lamb MD Work Phone: [facility] 03-04-2025 23:04-0400 SaO2% (BldA) [Mass fraction] 97 % Dr. Milind Lamb MD Work Phone: [facility] 03-04-2025 23:04-0400 Systolic blood pressure 134 mm[Hg] Dr. Milind Lamb MD Work Phone: [facility] 03-04-2025 18:06-0400 Body height 160.[address] Milind Lamb MD Work Phone: [facility] 03-04-2025 18:06-0400 Body mass index (BMI) [Ratio] 23.7 kg/m2 Dr. Milind Lamb MD Work Phone: [facility] 03-04-2025 18:06-0400 Body weight 60.[address] Milind Lamb MD Work Phone: [facility] 02-26-2025 00:29-0400 Body temperature 97.9 [degF] Dr. Milind Lamb MD Work Phone: [facility] 02-26-2025 00:29-0400 Diastolic blood pressure 65 mm[Hg] Dr. Milind Lamb MD Work Phone: [facility] 02-26-2025 00:29-0400 Heart rate 72 /min Dr. Milind Lamb MD Work Phone: [facility] 02-26-2025 00:29-0400 Respiratory rate 18 /min Dr. Milind Lamb MD Work Phone: [phone] [place] [address] 02-26-2025 00:29-0400 SaO2% (BldA) [Mass fraction] 97 % Dr. Milind Lamb MD Work Phone: [phone])369-501319 [place] [address] 02-26-2025 00:29-0400 Systolic blood pressure 122 mm[Hg] Dr. Milind Lamb MD Work Phone: [phone])[phone] [place] [address] 02-25-2025 21:04-0400 Body height 160.[address] Milind Lamb MD Work Phone: [phone])925-310919 [place] [address] 02-25-2025 21:04-0400 Body mass index (BMI) [Ratio] 24.4 kg/m2 Dr. Milind Lamb MD Work Phone: [phone])956-259819 [place] [address] 02-25-2025 21:04-0400 Body weight 62.[address] Milind Lamb MD Work Phone: [phone])574-834919 [place] [address] 12-10-2024 04:29-0400 Body temperature 98.7 [degF] Dr. Milind Lamb MD Work Phone: [phone])513-322119 [place] [address] 12-10-2024 04:29-0400 Diastolic blood pressure 65 mm[Hg] Dr. Milind Lamb MD Work Phone: 8(611)916-995419 [place] [address] 12-10-2024 04:29-0400 Heart rate 87 /min Dr. Milind Lamb MD Work Phone: 3(641)912-168019 [place] [address] 12-10-2024 04:29-0400 Respiratory rate 16 /min Dr. Milind Lamb MD Work Phone: [phone])757-639019 [place] [address] 12-10-2024 04:29-0400 SaO2% (BldA) [Mass fraction] 100 % Dr. Milind Lamb MD Work Phone: 5(838)636-571319 [place] [address] 12-10-2024 04:29-0400 Systolic blood pressure 142 mm[Hg] Dr. Milind Lamb MD Work Phone: [phone])121-673019 [place] [address] 12-10-2024 03:32-0400 Body mass index (BMI) [Ratio] 22.6 kg/m2 Dr. Milind Lamb MD Work Phone: 1(880)853-849119 [place] [address] 12-10-2024 03:32-0400 Body weight [address] Milind Lamb MD Work Phone: 3(328)680-653719 [place] [address] 12-09-2024 15:49-0400 Body height 160.[address] Milind Lamb MD Work Phone: 5(154)475-469019 [place] [address] 12-09-2024 00:00-0400 Body temperature 98.9 [degF] Dr. Milind Lamb MD Work Phone: 1(031)303-546719 [place] [address] 12-09-2024 00:00-0400 Diastolic blood pressure 52 mm[Hg] Dr. Milind Lamb MD Work Phone: [phone])085-113819 [place] [address] 12-09-2024 00:00-0400 Heart rate 92 /min Dr. Milind Lamb MD Work Phone: 4(447)781-357319 [place] [address] 12-09-2024 00:00-0400 Respiratory rate 21 /min Dr. Milind Lamb MD Work Phone: [phone])[phone] [place] [address] 12-09-2024 00:00-0400 SaO2% (BldA) [Mass fraction] 99 % Dr. Milind Labm MD Work Phone: 2([phone])264-164619 [place] [address] 12-09-2024 00:00-0400 Systolic blood pressure 109 mm[Hg] Dr. Milind Lamb MD Work Phone: 6(484)432-081719 [place] [address] 12-08-2024 19:55-0400 Body height 160.[address] Milind Lamb MD Work Phone: 7(949)599-693119 [place] [address] 12-08-2024 19:55-0400 Body mass index (BMI) [Ratio] 23.6 kg/m2 Dr. Milind Lamb MD Work Phone: 8(587)850-046619 [place] [address] 12-08-2024 19:55-0400 Body weight 60.[address] Milind Lamb MD Work Phone: 9(220)049-288719 [place] [address] 07-29-2023 16:28-0500 Diastolic blood pressure 80 mm[Hg] Dr. Milind Lamb Work Phone: [facility] 07-29-2023 16:28-0500 Heart rate 99 /min Dr. Milind Lamb Work Phone: [facility] 07-29-2023 16:28-0500 Respiratory rate 23 /min Dr. Milind Lamb Work Phone: [facility] 07-29-2023 16:28-0500 SaO2% (BldA) [Mass fraction] 98 % Dr. Milind Lamb Work Phone: 5(822)100-031237 [place] [address] 07-29-2023 16:28-0500 Systolic blood pressure 150 mm[Hg] Dr. Milind Lamb Work Phone: [facility] 07-29-2023 12:34-0500 Body height 160.[address] Milind Lamb Work Phone: 0(841)179-495337 [place] [address] 07-29-2023 12:34-0500 Body mass index (BMI) [Ratio] 23.7 kg/m2 Dr. Milind Lamb Work Phone: 9(611)136-305137 [place] [address] 07-29-2023 12:34-0500 Body temperature 95.9 [degF] Dr. Milind Lamb Work Phone: [facility] 07-29-2023 12:34-0500 Body weight 60.[address] Milind Lamb Work Phone: [facility] 07-06-2023 12:39-0500 Body temperature 98.2 [degF] Dr. Milind Lamb Work Phone: [facility] 07-06-2023 12:39-0500 Diastolic blood pressure 71 mm[Hg] Dr. Milind Lamb Work Phone: [facility] [facility] 07-06-2023 12:39-0500 Heart rate 98 /min Dr. Milind Lamb Work Phone: [facility] 07-06-2023 12:39-0500 Respiratory rate 18 /min Dr. Miilnd Lamb Work Phone: [facility] 07-06-2023 12:39-0500 SaO2% (BldA) [Mass fraction] 100 % Dr. Milind Lamb Work Phone: [facility] 07-06-2023 12:39-0500 Systolic blood pressure 141 mm[Hg] Dr. Milind Lamb Work Phone: [facility] 07-05-2023 12:30-0500 Body weight 56.[address] Milind Lamb Work Phone: [facility] 07-05-2023 06:00-0500 Body mass index (BMI) [Ratio] 21.9 kg/m2 Dr. Milind Lamb Work Phone: [facility] 07-02-2023 21:27-0500 Body temperature 98.3 [degF] [facility] 07-02-2023 21:27-0500 Diastolic blood pressure 81 mm[Hg] [facility] 07-02-2023 21:27-0500 Heart rate 124 /min [facility] 07-02-2023 21:27-0500 Respiratory rate 26 /min [facility] 07-02-2023 21:27-0500 SaO2% (BldA) [Mass fraction] 100 % [facility] 07-02-2023 21:27-0500 Systolic blood pressure 176 mm[Hg] [facility] 07-02-2023 20:50-0500 Body mass index (BMI) [Ratio] 21.4 kg/m2 [facility] 07-02-2023 20:50-0500 Body weight 54.88 kg [facility] 07-02-2023 18:19-0500 Body height 160.02 cm [facility] 07-02-2023 09:02-0500 Diastolic blood pressure 87 mm[Hg] [facility] 07-02-2023 09:02-0500 Heart rate 110 /min [facility] 07-02-2023 09:02-0500 Respiratory rate 16 /min [facility] 07-02-2023 09:02-0500 SaO2% (BldA) [Mass fraction] 98 % [facility] 07-02-2023 09:02-0500 Systolic blood pressure 149 mm[Hg] [facility] 07-02-2023 07:39-0500 Body height 160.02 cm [facility] 07-02-2023 07:39-0500 Body mass index (BMI) [Ratio] 21.4 kg/m2 [facility] 07-02-2023 07:39-0500 Body temperature 96.8 [degF] [facility] 07-02-2023 07:39-0500 Body weight 55.06 kg [facility] 06-30-2023 23:17-0500 Body height 160.02 cm [facility] 06-30-2023 23:17-0500 Body mass index (BMI) [Ratio] 21.9 kg/m2 [facility] 06-30-2023 23:17-0500 Body temperature 97.2 [degF] [facility] 06-30-2023 23:17-0500 Body weight 56.01 kg [facility] 06-30-2023 23:17-0500 Diastolic blood pressure 87 mm[Hg] [facility] 06-30-2023 23:17-0500 Heart rate 105 /min [facility] 06-30-2023 23:17-0500 Respiratory rate 18 /min [facility] 06-30-2023 23:17-0500 SaO2% (BldA) [Mass fraction] 100 % [facility] 06-30-2023 23:17-0500 Systolic blood pressure 169 mm[Hg] [facility] 07-28-2022 14:10-0500 Body temperature 98 [degF] Dr. Milind Lamb Work Phone: [facility] 07-28-2022 14:10-0500 Diastolic blood pressure 72 mm[Hg] Dr. Milind Lamb Work Phone: [facility] 07-28-2022 14:10-0500 Heart rate 86 /min Dr. Milind Lamb Work Phone: [facility] 07-28-2022 14:10-0500 Respiratory rate 18 /min Dr. Milind Lamb Work Phone: [facility] 07-28-2022 14:10-0500 SaO2% (BldA) [Mass fraction] 98 % Dr. Milind Lamb Work Phone: [facility] 07-28-2022 14:10-0500 Systolic blood pressure 124 mm[Hg] Dr. Milind Lamb Work Phone: 7(212)806-525637 [place] [address] 07-28-2022 05:51-0500 Body weight 49.[address] Milind Lamb Work Phone: 1(967)218-879435 [address] 07-26-2022 15:25-0500 Body height 160.[address] Milind Lamb Work Phone: 9(392)939-745435 [address] 07-26-2022 13:53-0500 Body mass index (BMI) [Ratio] 19.3 kg/m2 Dr. Milind Lamb Work Phone: 7(022)313-204035 [address] 07-26-2022 13:00-0500 Body temperature 97.4 [degF] Dr. Milind Lamb Work Phone: 3(685)115-162335 [address] 07-26-2022 13:00-0500 Diastolic blood pressure 73 mm[Hg] Dr. Milind Lamb Work Phone: [facility] 07-26-2022 13:00-0500 Heart rate 107 /min Dr. Milind Lamb Work Phone: [facility] 07-26-2022 13:00-0500 Respiratory rate 27 /min Dr. Milind Lamb Work Phone: [facility] 07-26-2022 13:00-0500 SaO2% (BldA) [Mass fraction] 99 % Dr. Milind Lamb Work Phone: [facility] 07-26-2022 13:00-0500 Systolic blood pressure 138 mm[Hg] Dr. Milind Lamb Work Phone: 7(233)946-804535 [address] 07-26-2022 11:12-0500 Body height 160.[address] Milind Lamb Work Phone: [facility] 07-26-2022 11:12-0500 Body mass index (BMI) [Ratio] 21.2 kg/m2 Dr. Milind Lamb Work Phone: [facility] 07-26-2022 11:12-0500 Body weight 54.[address] Milind Lamb Work Phone: [facility] 05-03-2022 06:11-0400 Body height 160.[address] Milind Lamb Work Phone: [facility] Work Phone: 05-03-2022 06:11-0400 Body mass index (BMI) [Ratio] 21.4 kg/m2 Dr. Milind Lamb Work Phone: [facility] 05-03-2022 06:11-0400 Body temperature 98 [degF] Dr. iMlind Lamb Work Phone: [facility] 05-03-2022 06:11-0400 Body weight 54.[address] Milind Lamb Work Phone: [facility] 05-03-2022 06:11-0400 Diastolic blood pressure 84 mm[Hg] Dr. Milind Lamb Work Phone: [facility] 05-03-2022 06:11-0400 Heart rate 102 /min Dr. Milind Lamb Work Phone: [facility] 05-03-2022 06:11-0400 Respiratory rate 16 /min Dr. Milind Lamb Work Phone: [facility] 05-03-2022 06:11-0400 SaO2% (BldA) [Mass fraction] 100 % Dr. Milind Lamb Work Phone: [facility] 05-03-2022 06:11-0400 Systolic blood pressure 157 mm[Hg] Dr. Milind Lamb Work Phone: [facility] 04-11-2022 08:16-0400 Body height 160.[address] Milind Lamb Work Phone: [facility] Work Phone: 04-11-2022 08:16-0400 Body mass index (BMI) [Ratio] 20.9 kg/m2 Dr. Milind Lamb Work Phone: [facility] 04-11-2022 08:16-0400 Body temperature 96.5 [degF] Dr. Milind Lamb Work Phone: [facility] 04-11-2022 08:16-0400 Body weight 53.[address] Milind Lamb Work Phone: [facility] 04-11-2022 08:16-0400 Diastolic blood pressure 81 mm[Hg] Dr. Milind Lamb Work Phone: [facility] 04-11-2022 08:16-0400 Heart rate 80 /min Dr. Milind aLmb Work Phone: [facility] 04-11-2022 08:16-0400 Respiratory rate 18 /min Dr. Milind Lamb Work Phone: [facility] 04-11-2022 08:16-0400 SaO2% (BldA) [Mass fraction] 97 % Dr. Milind Lamb Work Phone: [facility] 04-11-2022 08:16-0400 Systolic blood pressure 140 mm[Hg] Dr. Milind Lamb Work Phone: [facility] 03-06-2022 14:50-0400 Body temperature 97.9 [degF] Dr. Milind Lamb Work Phone: [facility] Work Phone: 03-06-2022 14:50-0400 Diastolic blood pressure 88 mm[Hg] Dr. Milind Lamb Work Phone: [facility] Work Phone: 03-06-2022 14:50-0400 Heart rate 91 /min Dr. Milind Lamb Work Phone: [facility] Work Phone: 03-06-2022 14:50-0400 Respiratory rate 16 /min Dr. Milind Lamb Work Phone: [facility] Work Phone: 03-06-2022 14:50-0400 SaO2% (BldA) [Mass fraction] 98 % Dr. Milind Lamb Work Phone: [facility] Work Phone: 03-06-2022 14:50-0400 Systolic blood pressure 131 mm[Hg] Dr. Milind Lamb Work Phone: [facility] Work Phone: 03-06-2022 09:27-0400 Body height 160.[address] Milind Lamb Work Phone: [facility] Work Phone: 03-06-2022 09:27-0400 Body weight 57.[address] Milind Lamb Work Phone: [facility] Work Phone: 03-03-2022 20:17-0400 Body mass index (BMI) [Ratio] 20.8 kg/m2 Dr. Milind Lamb Work Phone: [facility] Work Phone: Encounters Encounter Date Encounter Type Care Provider Facility Start: 04-18-2025 End: 04-20-2025 Evaluation and management of inpatient MEREDITH FELIPE Facility:[facility] Start: 04-13-2025 ambulatory MEREDITH FELIPE Facil ity:[facility] Start: 04-13-2025 End: 04-13-2025 ambulatory MEREDITH FELIPE Facility:[facility] Start: 04-08-2025 ambulatory GLORY MAST Facility:[facility] Start: 03-17-2025 End: 03-17-2025 Emergency department [...] Start: 01-18-2025 End: 01-22-2025 ambulatory GLORY MAST HAND STEMMER-[employer]ECT[employer] LINE UP PERSON Facility:[facility] Start: 01-18-2025 End: 01-22-2025 Outreach Lab GLORY MAST HAND STEMMER-OPTICAL EFFECTS LINE UP PERSON [facility] Start: 12-10-2024 Non-patient / Non-visit Dr. Ciro perrin MD -[facility] Work Phone: Start: 12-09-2024 Non-patient / Non-visit Dr. Shira Ibarra MD -[facility] Work Phone: Start: 12-09-2024 ambulatory Zelda Ibarra Facility :[facility] Start: 12-09-2024 End: 12-10-2024 Evaluation and management of inpatient Dr. Zelda Ibarra MD -Intensive Care Unit Work Phone: Start: 10-18-2024 End: 10-18-[address] Milind Lamb MD Work Phone: [facility] Work Phone: Start: 10-18-2024 End: 10-18-[address] Milind Lamb MD -Laboratory, [facility] Start: 10-18-2024 End: 10-18-2024 ambulatory Milind Lamb Facility:[facility] Start: 07-20-2024 End: 07-20-[address] Milind Lamb MD -Laboratory, [facility] Start: 07-20-2024 End: 07-20-2024 ambulatory Milind Lamb Facility:[facility] Start: 07-16-2024 End: 07-16-2024 Patient encounter procedure Nasir LIRA -[facility] Work Phone: Start: 07-16-2024 End: 07-16-2024 ambulatory Nasir LIRA [facility] Start: 05-02-2024 ambulatory Ciro Fernández Facili ty[facility] Start: 05-02-2024 End: 05-04-2024 Evaluation and management of inpatient Ciro Fernández Facility:[facility] Start: 07-29-2023 End: 07-29-2023 Emergency department patient visit Dr. Milind Lamb Work Phone: [facility]-Emergency Department Work Phone: Start: 07-18-2023 End: 08-11-[address] Milind Lamb Work Phone: [facility] Work Phone: Start: 07-18-2023 End: 08-11-[address] [facility] Work Phone: Start: 07-18-[address] Milind Lamb Work Phone: [facility] Work Phone: Start: 07-06-2023 Non-patient / Non-visit Dr. Pankaj Lamb Work Phone: [facility] Work Phone: Start: 07-05-2023 Non-patient / Non-visit Dr. Pankaj Lamb Work Phone: [facility] Work Phone: Start: 07-04-2023 Non-patient / Non-visit Dr. Pankaj Lamb Work Phone: [facility] Work Phone: Start: 07-03-2023 Non-patient / Non-visit Dr. Pankaj Lamb Work Phone: [facility] Work Phone: Start: 07-02-2023 End: 07-06-2023 Evaluation and management of inpatient [facility]-Intensive Care Unit Work Phone: Start: 07-02-2023 Non-patient / Non-visit Dr. Pankaj Lamb Work Phone: [facility] Work Phone: Start: 07-02-2023 End: 07-02-2023 Emergency department patient visit [facility]-Emergency Department Work Phone: Start: 06-30-2023 End: 07-01-2023 Emergency department patient visit [facility]Emergency Department Work Phone: Start: 05-21-2023 End: 05-21-2023 ambulatory [facility] Work Phone: Start: 05-21-2023 End: 05-21-2023 Patient encounter procedure [facility] Start: 07-28-2022 Non-patient / Non-visit Dr. Pankaj Lamb Work Phone: [facility] Start: 07-27-2022 Non-patient / Non-visit Dr. Pankaj Lamb Work Phone: [facility] Start: 07-26-2022 Non-patient / Non-visit Dr. Pankaj Lamb Work Phone: [facility] Start: 07-26-2022 End: 07-28-2022 Evaluation and management of inpatient Dr. Milind Lamb Work Phone: [facility]-Intensive Care Unit Start: 05-03-2022 End: 05-03-2022 Emergency department patient visit Dr. Milind Lamb Work Phone: [facility]-Emergency Department Start: 04-11-2022 End: 04-11-[address] Milind Lamb Work Phone: [facility] Work Phone: Start: 04-11-2022 End: 04-11-[address] Milind Lmab Work Phone: [facility] Start: 03-08-2022 End: 03-08-[address] Milind Lamb Work Phone: [facility] Work Phone: Start: 03-08-2022 End: 03-08-[address] Milind Lamb Work Phone: [facility]-Patient Link Start: 03-08-[address] Milind Lamb Work Phone: [facility] Start: 03-06-2022 Non-patient / Non-visit Dr. Pankaj Lamb Work Phone: [facility] Start: 03-06-2022 Non-patient / Non-visit Dr. Pankaj Lamb Work Phone: [facility] Start: 03-05-2022 Non-patient / Non-visit Dr. Pankaj Lamb Work Phone: [facility] Start: 03-05-2022 Non-patient / Non-visit Dr. Pankaj Lamb Work Phone: [facility] Start: 03-04-2022 Non-patient / Non-visit Dr. Pankaj Lamb Work Phone: [facility] Start: 03-03-2022 End: 03-06-2022 Evaluation and management of inpatient Dr. Milind Lamb Work Phone: [facility]-Intensive Care Unit Start: 07-22-2018 End: 07-23-2018 Patient encounter procedure SUMMER ALVES Facility:[facility] Procedures Date Procedure Procedure Detail Performing Clinician Start: 04-18-2025 Antibody screen MEREDITH LABOY Comment on above: Order Comment: Speci men Type: BLOOD SPECIMEN Ordering Facility: [facility] Address: [address] [place] [address] Performed By: #### T SCR #### [facility] CLIA [id number] [address] [place] [address] [place] Start: 03-17-2025 Urnls dip stick/tabl [...] RSV Vaccine (1 - 1-dose 75+ series) [facility] Start: 03-24-2025 End: 03-24-2025 Patient encounter procedure 03/24/2025 8:15 AM EDT Office Visit Urology [address] [place] [id number] Meredith Felipe MD [address] [place] [address] kidney mass- found at [facility] 12/10 Urology Comment on above: kidney mass- found a t [facility] 12/10 Start: 03-21-2025 End: 03-21-2025 Admission to same day surgery center 03/21/2025 12:30 PM EDT - 03/21/2025 5:00 PM EDT Surgery [address] [address] Meredith Felipe MD [address] [place] [address] XI ROBOTIC LAPAROSCOPIC NEPHRECTOMY RADICAL [facility] Comment on above: XI ROBOTIC LAPAROSCO PIC NEPHRECTOMY RADICAL Start: 03-21-2025 End: 03-21-2025 Laparoscopy radical nephrectomy 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 03/21/2025 12:30 PM EDT [facility] Start: 03-21-2025 Subsequent hospital visit by physician 03/21/2025 12:30 PM EDT Hospital Encounter [address] [id number] Meredith Felipe MD [address] [place] [address] 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 Start: 03-11-2025 End: 06-10-2025 Bacteria identified in Urine by Culture BACTERIAL CULTURE, URINE Microbiology Routine Neoplasm of uncertain behavior of left kidney Expected: 03/11/2025, Expires: 06/10/2025 [facility] Work Phone: Comment on above: Expected: 03/11/2025 , Expires: 06/10/2025 Start: 03-07-2025 Influenza vaccination Influenza Vacc ine (#1) [facility] Start: 03-04-2025 [facility] Start: 02-26-2025 End: 02-26-2025 [facility] Start: 02-25-2025 Bacteria identified in Urine by Culture Urine Culture [facility] Start: 02-25-2025 Urine culture [facility] Start: 02-24-2025 End: 05-26-2025 Alkaline phosphatase [Enzymatic activity/volume] in Serum or Plasma ALKALINE PHOSPHATASE Lab Routine Neoplasm of uncertain behavior of left kidney Expected: 02/24/2025, Expires: 05/26/2025 [facility] Work Phone: Comment on above: Expected: 02/24/2025 , Expires: 05/26/2025 Start: 02-24-2025 End: 05-26-2025 Basic metabolic 2000 panel - Serum or Plasma BASIC METABOLIC PANEL Lab Routine Neoplasm of uncertain behavior of left kidney Expected: 02/24/2025, Expires: 05/26/2025 [facility] Comment on above: Expected: 02/24/2025 , Expires: 05/26/2025 Start: 02-24-2025 End: 05-26-2025 Gamma glutamyl transferase [Enzymatic activity/volume] in Serum or Plasma GGT Lab Routine Neoplasm of uncertain behavior of left kidney Expected: 02/24/2025, Expires: 05/26/2025 [facility] Comment on above: Expected: 02/24/2025 , Expires: 05/26/2025 Start: 12-10-2024 [facility] Start: 12-10-2024 Patient discharge [facility] Start: 12-09-2024 End: 12-09-2024 [facility] Start: 12-09-2024 Care regimes management [facility] Start: 12-09-2024 Notification of physician [facility] Start: 12-09-2024 Assessment of risk o f venous thromboembolism [facility] Start: 12-09-2024 End: 12-09-2024 Following clinical pathway protocol [facility] Start: 12-09-2024 Incentive spirometry [facility] Start: 12-09-2024 Inhalation therapy procedure [facility] Start: 12-09-2024 Insertion of cathete r into peripheral vein [facility] Start: 12-09-2024 Introduction of urin cristy catheter [facility] Start: 12-09-2024 Lab findings surveillance [facility] Start: 12-09-2024 Measuring intake and output [facility] Start: 12-09-2024 Notification of physician [facility] Start: 12-09-2024 Oxygen therapy [facility] Start: 12-09-2024 Patient education [facility] Start: 12-09-2024 Patient referral to dietitian [facility] Start: 12-09-2024 Providing care accor ding to standard [facility] Start: 12-09-2024 Provision of activit y privileges [facility] Start: 12-09-2024 Referral to service [facility] Start: 12-09-2024 Vital signs measurements [facility] Start: 12-09-2024 [facility] Start: 12-09-2024 Verification routine [facility] Start: 12-09-2024 Admission procedure [facility] Start: 12-09-2024 Hospital admission, emergency, from emergency room, medical nature [facility] Start: 12-09-[address] [facility] Start: 12-08-2024 [facility] Start: 07-29-2023 [facility] Start: 07-06-2023 Patient discharge [facility] Start: 07-03-2023 Care regimes management [facility] Start: 07-03-2023 Notification of physician [facility] Start: 07-03-2023 [facility] Start: 07-03-2023 [facility] Start: 07-03-2023 End: 07-03-2023 Blood chemistry [facility] Start: 07-03-2023 Complete blood count [facility] Start: 07-02-2023 Blood chemistry [facility] Start: 07-02-2023 Ambulation without limitation [facility] Start: 07-02-2023 Assessment of risk o f venous thromboembolism [facility] Start: 07-02-2023 Continuous pulse oximetry [facility] Start: 07-02-2023 End: 07-02-2023 Following clinical pathway protocol [facility] Start: 07-02-2023 Incentive spirometry [facility] Start: 07-02-2023 Insertion of cathete r into peripheral vein [facility] Start: 07-02-2023 Lab findings surveillance [facility] Start: 07-02-2023 Measuring intake and output [facility] Start: 07-02-2023 Notification of physician [facility] Start: 07-02-2023 Oxygen therapy [facility] Start: 07-02-2023 Patient education [facility] Start: 07-02-2023 Patient referral to dietitian [facility] Start: 07-02-2023 Providing care accor ding to standard [facility] Start: 07-02-2023 Referral to occupati onal therapist [facility] Start: 07-02-2023 Referral to service [facility] Start: 07-02-2023 Vital signs measurements [facility] Start: 07-02-2023 [facility] Start: 07-02-2023 Verification routine [facility] Start: 07-02-2023 Admission procedure [facility] Start: 07-02-2023 End: 07-02-2023 Blood chemistry [facility] Start: 07-02-2023 [facility] Start: 07-02-2023 Bacteria identified in Urine by Culture Urine Culture [facility] Start: 07-02-2023 [facility] Start: 07-01-2023 [facility] Start: 07-28-2022 Patient discharge [facility] Start: 07-27-2022 Care regimes management [facility] Start: 07-27-2022 Notification of physician [facility] Start: 07-27-2022 [facility] Start: 07-26-2022 Assessment of risk o f venous thromboembolism [facility] Start: 07-26-2022 End: 07-26-2022 Following clinical pathway protocol [facility] Start: 07-26-2022 Insertion of cathete r into peripheral [facility] [facility] Start: 07-26-2022 Lab findings surveillance [facility] Start: 07-26-2022 Measuring intake and output [facility] Start: 07-26-2022 Notification of physician [facility] Start: 07-26-2022 Patient education [facility] Start: 07-26-2022 Patient referral to dietitian [facility] Start: 07-26-2022 Providing care accor ding to standard [facility] Start: 07-26-2022 Vital signs measurements [facility] Start: 07-26-2022 End: 07-26-2022 [facility] Start: 07-26-2022 Verification routine [facility] Start: 07-26-2022 Admission procedure [facility] Start: 07-26-2022 Blood chemistry [facility] Start: 07-26-2022 [facility] Start: 07-26-2022 [facility]: 05-03-[facility]22 [facility] Start: 03-06-2022 Patient discharge [facility] Work Phone: Start: 03-05-2022 Referral to occupati onal therapist [facility] Work Phone: Start: 03-05-2022 Referral to service [facility] Work Phone: Start: 03-04-2022 Care regimes management [facility] Work Phone: Start: 03-04-2022 Notification of physician [facility] Work Phone: Start: 03-04-2022 [facility] Work Phone: Start: 03-04-[address] [facility] Work Phone: Start: 03-03-2022 End: 03-04-2022 [facility] Work Phone: Start: 03-03-2022 Application of intermittent pneumatic compression device [facility] Work Phone: Start: 03-03-2022 Aspiration precautions [facility] Work Phone: Start: 03-03-2022 Assessment of risk o f venous thromboembolism [facility] Work Phone: Start: 03-03-2022 Continuous pulse oximetry [facility] Work Phone: Start: 03-03-2022 Elevation of head of bed [facility] Work Phone: Start: 03-03-2022 Fall prevention [facility] Work Phone: Start: 03-03-2022 End: 03-03-2022 Following clinical pathway protocol [facility] Work Phone: Start: 03-03-2022 Incentive spirometry [facility] Work Phone: Start: 03-03-2022 Inhalation therapy procedure [facility] Work Phone: Start: 03-03-2022 Insertion of cathete r into peripheral vein [facility] Work Phone: Start: 03-03-2022 Introduction of urin cristy catheter [facility] Work Phone: Start: 03-03-2022 Lab findings surveillance [facility] Work Phone: Start: 03-03-2022 Measuring intake and output [facility] Work Phone: Start: 03-03-2022 Notification of physician [facility] Work Phone: Start: 03-03-2022 Oxygen therapy [facility] Work Phone: Start: 03-03-2022 Patient education [facility] Work Phone: Start: 03-03-2022 Patient referral to dietitian [facility] Work Phone: Start: 03-03-2022 Providing care accor ding to standard [facility] Work Phone: Start: 03-03-2022 Provision of activit y privileges [facility] Work Phone: Start: 03-03-2022 Referral to service [facility] Work Phone: Start: 03-03-2022 Vital signs measurements [facility] Work Phone: Start: 03-03-2022 Admission procedure [facility] Work Phone: Start: 03-03-2022 [facility] Work Phone: Start: 2012 Pneumococcal Vaccine : 50+ (1 of 1 - PCV) Pneumococcal Vaccine: 50+ (1 of 1 - PCV) [facility] Start: 2012 Shingrix Vaccine (1 of 2) Henry grix Vaccine (1 of 2) [facility] Start: 2007 Diabetes Screening Diabetes Screenin g [facility] Start: 2007 Lipid panel Lipid Screening [facility] Start: 2007 Screening for malign ant neoplasm of colon [facility] Start: 2002 Screening for malign ant neoplasm of breast Mammogram Screening [facility] Start: 1983 Screening for malign ant neoplasm of cervix Cervical Cancer Screening [facility] Start: 1981 Urine microalbumin profile DTaP,Tdap,Td Vaccine (1 - Tdap) [facility] Start: 1980 Anxiety Screening Anxiety Screening [facility] Start: 1980 Depression Screening Depression Scre ing [facility] Start: 1980 Hepatitis C screening Hepatitis C Sc [facility] Start: 1980 HIV screening HIV Screening [facility] Anion gap measurement [facility] Anion gap measurement [facility] Anion gap measurement [facility] Anion gap measurement [facility] Bilirubin measuremen t, urine [facility] BUN/Creatinine ratio [facility] BUN/Creatinine ratio [facility] BUN/Creatinine ratio [facility] BUN/Creatinine ratio [facility] Calcium [Mass/volume ] in Serum or Plasma [facility] Calcium [Mass/volume ] in Serum or Plasma [facility] Calcium [Mass/volume ] in Serum or Plasma [facility] Calcium [Mass/volume ] in Serum or Plasma [facility] Carbon dioxide, tota l [Moles/volume] in Serum or Plasma [facility] Carbon dioxide, tota l [Moles/volume] in Serum or Plasma [facility] Carbon dioxide, tota l [Moles/volume] in Serum or Plasma [facility] Carbon dioxide, tota l [Moles/volume] in Serum or Plasma [facility] Chloride [Moles/volu me] in Serum or Plasma [facility] Chloride [Moles/volu me] in Serum or Plasma [facility] Chloride [Moles/volu me] in Serum or Plasma [facility] Chloride [Moles/volu me] in Serum or Plasma [facility] Creatinine [Moles/vo lume] in Serum or Plasma [facility] Creatinine [Moles/vo lume] in Serum or Plasma [facility] Creatinine [Moles/vo lume] in Serum or Plasma [facility] Creatinine [Moles/vo lume] in Serum or Plasma [facility] Glucose [Mass/volume ] in Serum or Plasma [facility] Glucose [Mass/volume ] in Serum or Plasma [facility] Glucose [Mass/volume ] in Serum or Plasma [facility] Glucose [Mass/volume ] in Serum or Plasma [facility] Hematocrit [Volume Fraction] of Blood [facility] Hemoglobin [Mass/vol ume] in Blood [facility] Hemoglobin [Presence ] in Urine [facility] Hemoglobin A1c/Hemoglobin.total in Blood [facility] Leukocytes [#/volume ] in Blood [facility] Mean corpuscular hemoglobin concentration determination [facility] Mean corpuscular hemoglobin determination [facility] Measurement of keton es in urine using dipstick [facility] Measurement of renal function [facility] Measurement of renal function [facility] Measurement of renal function [facility] Measurement of renal function [facility] Microscopic urinalysis [facility] Microscopic urinalysis [facility] Organism count, microscopic method [facility] Patient Education [facility] Work Phone: Patient referral [facility] Work Phone: pH of Urine [facility] Platelets [#/volume] in Blood [facility] Potassium [Moles/vol ume] in Serum or Plasma [facility] Potassium [Moles/vol ume] in Serum or Plasma [facility] Potassium [Moles/vol ume] in Serum or Plasma [facility] Potassium [Moles/vol ume] in Serum or Plasma [facility] Red blood cell count [facility] Red cell distributio n width determination [facility] Sodium [Moles/volume ] in Serum or Plasma [facility] Sodium [Moles/volume ] in Serum or Plasma [facility] Sodium [Moles/volume ] in Serum or Plasma [facility] Sodium [Moles/volume ] in Serum or Plasma [facility] Specific gravity of Urine [facility] Urea nitrogen [Mass/volume] in Serum or Plasma [facility] Urea nitrogen [Mass/volume] in Serum or Plasma [facility] Urea nitrogen [Mass/volume] in Serum or Plasma [facility] Urea nitrogen [Mass/volume] in Serum or Plasma [facility] Urinalysis, blood, qualitative [facility] Urine dipstick for glucose [facility] Urine dipstick for leukocyte esterase [facility] Urine dipstick for nitrite [facility] Urine dipstick for protein [facility] Urine examination [facility] Urine microscopy: epithelial cells [facility] Urine microscopy: epithelial cells [facility] Urine microscopy: re d cells [facility] Urine Microscopy: wh ite cells [facility] Urobilinogen [Presen ce] in Urine [facility] White blood cell count [facility] End: 03-26-2026 XR Chest PA and Lateral XR CHEST 2V FRONTAL/LAT Radiology Routine Neoplasm of uncertain behavior of left kidney 1 Occurrences starting 02/24/2025 until 03/26/2026 [facility] Comment on above: 1 Occurrences starti ng 02/24/2025 until 03/26/2026 Payers Date Payer Category Payer Medicaid [id number] 2024 Self-pay [id number] 2024 Unknown [id number] 2018 Unknown [id number] 1960 Unknown [id number] 2.16.8 [id number] 1960 Unknown [id number] 2.16. [id number] Unknown [id number] Unknown [facility] [id number] Unknown [id number] 2.16.8 [id number] Unknown [id number] 2.16.8 [id number] Unknown [id number] 2.16.8 [id number] Unknown [id number] 2.16.8 [id number] Unknown [id number] 2.16.8 [id number] Unknown [id number] 2.16.8 [id number] Unknown [id number] 2.16.8 [id number] Unknown [id number] 2.16.8 [id number] Unknown [id number] 2.16.8 [id number] Unknown [id number] 2.16.8 40.1.273924.3.579.2.462 Unknown [id number] 2.16.8 [id number] Unknown [id number] 2.16.8 [id number] Unknown [id number] 2.16.8 [id number] Unknown [id number] 2.16.8 [id number] Unknown [id number] 2.16.8 [id number] Social History Date Type Detail Facility Start: 03-03-2022 End: 07-29-2023 Tobacco smoking status MAIS Unknown if ever smoked [facility] Start: 1960 Sex Assigned At Female [facility] Start: 05-03-2024 End: 03-17-2025 Tobacco smoking status MAIS Ex-smoker (finding) [facility] Start: 08-15-2005 End: 10-22-2024 Sex Female (finding) [facility] Start: 02-10-2025 History of Social function [facility] Start: 02-10-2025 Area Deprivation Index [facility] Start: 06-07-2012 National Score (1-10 0), lower number is lower risk 64 [facility] Start: 1960 Sex assigned at Not on file [facility] Medical Equipment Procedure Code Equipment Code [...] 100, # 1 EA, 11 Refill(s), Pharmacy: [facility]/pharmacy #[id number], 161, cm, 01/18/25 9:58:00 EDT, Height, 60, kg, 01/18/25 9:58:00 EDT, Dosing Weight Start: 01-18-2025 See Instructions , qs 1 month supply, # 60 EA, 0 Refill(s), Pharmacy: [facility]/pharmacy #[id number], 161, cm, 01/18/25 9:58:00 EDT, [...] 12-10-2024 Functional status Activity Ability Indepe ndent [facility] Work Phone: 12-10-2024 Functional status Patient Activi ty Ambulates;Bathroom Privilege [facility] Work Phone: 07-06-[address] [facility] Work Phone: 07-28-[address] [facility] Work Phone: 03-06-[address] [facility] Work Phone: Mental Status Date Assessment Result Facility 12-10-2024 Cognitive function Voice/Name [facility] Work Phone: 12-08-2024 Cognitive function Level Of Cons ciousness Awake;Alert;Appropriate;Follow s Commands [facility] Work Phone: 07-29-2023 Cognitive function Level Of Cons ciousness Awake;Alert;Appropriate;Follow s Commands [facility] Work Phone: 07-06-2023 Cognitive function Voice/Name [facility] Work Phone: 07-28-2022 Cognitive function Voice/Name [facility] Work Phone: 05-03-2022 Cognitive function Level Of Cons ciousness Awake;Alert;Appropriate;Follow s Commands [facility] Work Phone: 03-06-2022 Cognitive function Voice/Name [facility] Work Phone: Clinical Notes 05-03-2022 to 04-20-2025 Note Date & Type Note Facility 04-20-2025 Note HNO ID: [id number] Author: SIMON JAMESON LSW Service: Care Management Author Type: Donkey Ride Operator Type: Care Mgt Progress Note Filed: 04/20/2025 17:38 Note Text: CARE MANAGEMENT PROGRESS NOTE SERVICE DATE: 04/20/2025 SERVICE TIME: 2:00PM LOS: 2 days SW met with patient at bedside and provided her with resources for [facility] and the [facility] [employer]. Patient appreciative of resources. SIGNATURE: RENETTA Emmanuel PATIENT NAME: Lina Tamezs DATE: April 20, 2025 TIME: 5:37 PM [facility] 04-20-2025 Note HNO ID: [id number] Author: NAS WILL RN Service: Care Management [...] Care Physician Name/Phone: summary of care to PCPGlory Additional Information: Patient is discharging to home with self care. No skilled needs indicated. Patient's friend is transporting. SIGNATURE: Paola Will RN PATIENT NAME: Lina Tamezs DATE: April 20, 2025 TIME: 1:36 PM [facility] 04-20-2025 Note HNO ID: [id number] Author: BLAINE WOLFF MD Service: Urology Author Type: Resident [...] Tristian Wolff MD Urology PGY5 04/20/2025 Page election supervisor resident with questions [facility] 04-19-2025 Note HNO ID: [id number] Author: NAS WILL, RN Service: Care Management Author Type: Registered Nurse Type: Care Mgt Initial Assessment Filed: 04/19/2025 15:04 Note Text: CARE MANAGEMENT: ASSESSMENT AND DISCHARGE PLAN SERVICE DATE: April 19, 2025 SERVICE TIME: 3:03 PM PCP: Glory Weems NP, OPTICAL EFFECTS LINE UP PERSON Primary Contact: Extended Emergency Contact Information Primary Emergency Contact: Joaquim Meadows Mobile Relation: Son Secondary Emergency Contact: Angella Ojeda Mobile Relation: Friend Admission Status: Inpatient Insurance Provider: [facility] Discharge Planning requested by: Per Department Practice [...] to go home, General wellness, Less pain Chuckey of Choice Explained: Chuckey of Choice Given: No Reason Not Given: [...] DATE: April 19, 2025 TIME: 3:03 PM [facility] 04-19-2025 Note HNO ID: [id number] Author: ANALILIA HALE RPh Service: Pharmacy Author [...] discharge medication list. Analilia Hale RPh Pager: [phone] 04/19/2025 12:54 PM Medication List START taking [...] Your Medications These medications were sent to [facility] [address] - [place] [address] - [address] - [phone] [address] [place] [address] docusate sodium 100 mg capsule oxyCODONE IR 5 mg immediate release tablet [facility] 04-19-2025 Note HNO ID: [id number] Author: MEREDITH FELIPE MD Service: Urology Author [...] after my independent evaluation of patient Tristian Kai RICH Urology PGY5 04/19/2025 Page election supervisor resident with questions I saw and evaluated the patient. Discussed with the resident and agree with resident's findings and plan as documented in the resident's note. [facility] 04-18-2025 Note HNO ID: [id number] Author: DURGA SANCHEZ APRN.ELECTRONIC RESOURCES LIBRARIAN Service: Nursing Author Type: Nurse Premises Technician Type: Anesthesia Procedure Notes Filed: 04/18/2025 14:00 Note Text: ANESTHESIOLOGY PROCEDURE NOTE Airway General Information Procedure Start Time/Medication Administration: 04/18/2025 1:47 PM Procedure End Time: 04/18/2025 1:47 PM Patient location during procedure: OR Timeout Performed Pre-procedure: timeout performed Consent Obtained: Yes Patient identity confirmed: arm band and patient Staffing ELECTRONIC RESOURCES LIBRARIAN: Durga Sanchez APRN.ELECTRONIC RESOURCES LIBRARIAN Performed by: JODY Indications and Patient Condition Indications for airway [...] no Airway not difficult SIGNATURE: Durga Sanchez APRN.ELECTRONIC RESOURCES LIBRARIAN PATIENT NAME: Lina Tamezs DATE: April 18, 2025 TIME: 1:59 PM CSN: [id number] [facility] 04-13-2025 Note HNO ID: [id number] Author: MEREDITH FELIPE MD Service: ? Author Type: Physician Type: Progress Notes Filed: 04/13/2025 09:49 Note Text: Consultation requested by Dr. Glory Weems, REFERENCE DATA EXPERT, OPTICAL EFFECTS LINE UP PERSON for an opinion regarding No chief complaint [...] mass. The patient was recently evaluated at [facility] for a glucose-related issue. During that visit, [...] diabetes mellitus ( (more content not included)... [facility] 03-17-2025 Discharge summary [facility] 03-17-2025 Radiology Diagnostic study note [facility] Imaging Services [address] [place] [address] Abdomen/Pelvis W IV Cont ONLY MR#: [id number] Acct: [id number] Name: LINA MEADOWS Rep #: [id number] : 1960 F 64 From: Eliud Kwok MD PCP: YONATAN MONTANA Status: REG ER Study:Abdomen/Pelvis W IV Cont ONLY Date of E xam: 03/17/25 Exam# [id number] Ordering Dr: Sanjiv Marcial DO PROCEDURE: ABDOMEN/PELVIS [...] ruled out. Multiple small gallstones. Reading Location: [id number] CC: Dr. Sanjiv Marcial DO; YONATAN MONTANA ~ Glass Enamel Mixer: Signed [facility] 03-17-2025 Discharge summary Note Date/Time March 17, 2025 5:04pm [facility] Medical Records Department [address] [place] [address] Emergency Department Summary 03/17/25 MR#: [id number] Acct: [id number] Name: LINA MEADOWS Rep #:[id number] : 1960 64 From: Sanjiv Abreu PCP: [...] this. Patient states she was at a [facility] on a top bunk. Patient states that when she was climbing down from the bunk 4 days ago, she hit her right lower ribs on the bed frame. Patient states she felt a pop at that time. Patient states this pain is improving. Patient admits to some nausea, vomiting,and diarrhea. Patient admits to some urinary frequency but denies any dysuria or hematuria. [facility] Medical History Mass of left kidney Sinus tachycardia seen on night monitor Back pain Tobacco use Anxiety and depression [...] 5 mg tablet 10 mg PO DAILY 12/08/24/ History insulin lispro 100 unit/mL 10 unit [...] % (Auto) 65.4 Lymph % (Auto) 24.5 [place] % (Auto) 7.8 Eos % (Auto) 1.4 [...] Clarity Clear Urine pH 6.0 Ur Specific [place] 1.010 Urine Protein 30 H Urine Glucose [...] ruled out. Multiple small gallstones. Reading Location: [facility] CT scan of the abdomen and pelvis [...] Care Provider] - 5-7 Days Print Language: Korean Disposition Disposition: Home, Self Care What to do if you have Problems For any increased pain, shortness of breath, bleeding, nausea or vomiting, chestpain, or any unexpected problems, contact your Primary Care Provider. Call [facility] ([phone]) or report to the closest Emergency Room. Call 911 if necessary. 03/17/25 1704 <Electronically signed by Sanjiv Marcial DO> Cosigner Signature (if applicable): CC: YONATAN MONTANA ~ Signed [facility] Work Phone: [phone]) 736-162108-27-2025 Telephone encounter Note* Telephone Encounter - Daysi Giron - 03/02/2025 2:25 PM EDT Left message for patient to call mark. [facility]08-27-2025 Miscellaneous Notes* Telephone Encounter - Daysi Giron - 03/02/2025 2:25 PM EDT Left message for patient to call mark. 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 Note: Pt is to drop off disk with imaging from 12/08/24. CXR & labs may be required after Dr. Felipe reviews. [facility] Telephone encounter Note * Telephone Encounter - Daysi Giron - 03/02/2025 9:04 AM EDT RAL Left Radical Nephrectomy Neoplasm of uncertain behavior of left kidney UCx expected by 03/11/25 Surgery: 03/21/25 12:30 PM [facility] Arrive at 10:30 AM H&P same day I will contact patient to confirm surgery details. Note: Pt is to drop off disk with imaging from 12/08/24. CXR & labs may be required after Dr. Felipe reviews. [facility]08-23-2025 Radiology Diagnostic study note [facility] Imaging Services [address] [place] [address] Chest, Abd, Pel w/Contrast MR#: [id number] Acct: [id number] Name: LINA MEADOWS Rep #: [id number] : 1960 F 64 From: Jakob Culver MD PCP: YONATAN MONTANA Status: REG ER Study:CT Chest, Abd, Pel w/Contrast Date of E xam: 02/25/25 Exam# [id number] Ordering Dr: Zane Gallardo DO PROCEDURE: CT [...] No acute findings as imaged. Reading Location[facility] CC: Dr. Zane Gallardo DO; YONATAN MONTANA ~ Glass Enamel Mixer: Signed [facility]08-22-2025 Telephone encounter Note* Telephone Encounter - Jayla Joseph RN - 02/25/2025 2:55 PM EDT Spoke with patient about the importance of getting it done and Dr. Felipe reviewing the labs and last CXR and needing these 2 moving forward. I made her aware that she can even do both as a Walk in Basis in [place] when she figures out living situation. She verbalizes understanding of importance. [facility]08-22-2025 Miscellaneous Notes* Telephone Encounter - Jayla Joseph RN - 02/25/2025 2:55 PM EDT Spoke with patient about the importance of getting it done and Dr. Felipe reviewing the labs and last CXR and needing these 2 moving forward. I made her aware that she can even do both as a Walk in Basis in [place] when she figures out living situation. She verbalizes understanding of importance. * Telephone Encounter - Chris Forrester - 02/25/2025 2:25 PM EDT I [...] her ride situation. * Telephone Encounter - Chris Forrester - 02/25/2025 8:34 AM EDT Attempted to speak with patient to schedule, I left a voicemail for her to return our call to schedule. Unable to send a VIAP message. * Telephone Encounter - Jayla Joseph RN - 02/24/2025 1:10 PM EDT Spoke with patient and she states that she had labs when she was overnight in [place] 12-08-2024 through the 12-10-2024. She has the CD with the imaging on it and will get ride to drop off. Spoke with [facility] and she will fax labs, and the CXR was from . Received the records. Dr. Small reviewed the labs and CXR received and he has ordered what he needs done. Please assist with scheduling CXR and labs in [place] for patient. She has transportation issues right [...] then. Thank you, Angella [facility] Tele[facility] encounter Note * Telephone Encounter - Chris Forrester - 02/25/2025 2:25 PM EDT I [...] able to work out her ride situation. [facility]08-[facility] Telephone encounter Note* Telephone Encounter - Chris Forrester - 02/25/2025 8:34 AM EDT Attempted to speak with patient to schedule, I left a voicemail for her to return our call to schedule. Unable to send a VIAP message. [facility] Note* Addendum Note - Meredith Felipe MD - 02/24/2025 1:34 PM EDTAddended by: MEREDITH FELIPE on: 02/24/2025 01:34 PM Modules accepted: Orders [facility]08-21-2025 Miscellaneous Notes* Addendum Note - Mreedith Felipe MD - 02/24/2025 1:34 PM EDTAddended by: MEREDITH FELIPE on: 02/24/2025 01:34 PM Modules accepted: Orders documented in this [facility]Mart[facility] Telephone encounter Note * Telephone Encounter - Jayla Joseph RN - 02/24/2025 1:10 PM EDT Spoke with patient and she states that she had labs when she was overnight in [place] 12-08-2024 through the 12-10-2024. She has the CD with the imaging on it and will get ride to drop off. Spoke with [facility] and she will fax labs, and the CXR was from . Received the records. Dr. Small reviewed the labs and CXR received and he has ordered what he needs done. Please assist with scheduling CXR and labs in [place] for patient. She has transportation issues right now. [facility]08-[facility]2025 NoteHNO ID: [id number] Author: MEREDITH FELIPE MD Service: ? Author [...] visit. Either the patient or their legal automobile rental representative has been informed of the [...] risks such as but not limited to NC, DVT, PE, CVA, Pneumonia, C. Diff, ileus, [...] routine physical examination No (more content not included)...[facility]08-21-2025 History of Present illness Narrative* Meredith [...] visit. Either the patient or their legal automobile rental representative has been informed of the [...] risks such as but not limited to NC, DVT, PE, CVA, Pneumonia, C. Diff, ileus, [...] and agrees with treatment plan. Recording using ambient [employer] software for draft documentation of the visit was discussed with the patient/authorized automobile rental representative; all questions welcomed and answered. Patient/authorized automobile rental representative agreed to proceed Patient will [...] necessary evaluations. [1] [2] documented in [facility] Telephone encounter Note * Telephone Encounter - Angella Seo - 02/23/2025 1:38 PM EDT Patient called to cancel her 02/24 appointment because she was recently evicted and had to cancel her Provide A Ride due to not having a pick-up address. Patient was already scheduled for 03/24 and sheis hoping she can get everything straightened out by then. Thank you, Angella [facility]06-06-2025 Discharge summary Author Ciro Mendosa [facility] Note Date/Time December 10, 2024 9:03a m [facility] Medical Records Department [address] [place] [address] Discharge Summary 12/10/24 0858 MR#: [id number] Acct: [id number] Name: LINA MEADOWS Rep #:[id number] : 1960 64 From: Ciro Mendosa MD PCP: Dr. Milind Lamb MD Status:ADM I N [id number] Date of Admission: 12/09/24 Date of [...] Self Care Charges/Coding Visit Charges Inpatient E&M: 08352 Disch Hosp >30min 12/10/24 0903 <Electronically signed by Ciro Mendosa MD> Cosigner Signature (if applicable): CC: Dr. Ciro Mendosa MD; Dr. Milind Lamb MD~ Signed [facility] Work Phone: 1(972) 513-724706-06-2025 Discharge summary Author Miki Sen [facility] Note Date/Time December 10, 2024 8:29a m [facility] Medical Records Department [address] [place] [address] Emergency Department Summary 12/08/24 MR#: [id number] Acct: [id number] Name: JANISLINA E Rep #:[id number] : 1960 64 From: Miki Sen DO PCP: Dr. Milind Lamb MD Status:ADM I N Location: [place] [address] Miki Sen DO on [...] to being out of her testing strips. [facility] Medical History Accelerated hypertension DKA (diabetic ketoacidosis) Sinus tachycardia seen on night monitor Diabetic ketoacidosis associated with type 1 diabetes [...] follow commands and that she was at [facility] year is 2024 Skin: Warm, dry, [...] % (Auto) 67.7 Lymph % (Auto) 22.8 [place] % (Auto) 7.7 Eos % (Auto) 0.9 [...] Color Urine Clarity Urine pH Ur Specific [place] Urine Protein Urine Glucose (UA) Urine Ketones [...] (Auto) Neut % (Auto) Lymph % (Auto) [place] % (Auto) Eos % (Auto) Baso % [...] Clarity Clear Urine pH 6.0 Ur Specific [place] 1.015 Urine Protein 30 H Urine Glucose [...] 11:16 pm with readback verification. Reading Location: [facility] Discharge Plan Triage Chief Complaint: Hyperglycemia [...] MD [Primary Care Provider] - Print Language: Korean Disposition Disposition: Acute Care Hospital [facility] What to do if you have Problems For any increased pain, shortness of breath, bleeding, nausea or vomiting, chestpain, or any unexpected problems, contact your Primary Care Provider. Call [facility] ([phone]) or report to the closest Emergency Room. Call 911 if necessary. 12/09/24 0019 <Electronically signed by Miki Sen DO> Cosigner Signature (if applicable): CC: Dr. Milind Lamb MD ~ Signed [facility] Work Phone: 1([phone]) 666-300306-06-2025 Discharge summary [facility] Medical Records Department [address] [place] [address] Discharge Summary 12/10/24 0858 MR#: [id number] Acct: [id number] Name: LINA MEADOWS Rep #:[id number] : 1960 64 From: Ciro Mendosa MD PCP: Dr. Milind Lamb MD Status:ADM I N Location: [place] [address] Providers Date of Admission: 12/09/24 Date of [...] Self Care Charges/Coding Visit Charges Inpatient E&M: 76568 Disch Hosp >30min 12/10/24 0903 Cosigner Signature (if applicable): CC: Dr. Ciro Mendosa MD; Dr. Milind Lamb MD~ Signed [facility]06-06-2025 [facility]06-06-2025 Discharge summary [facility] Medical Records Department [address] [place] [address] Emergency Department Summary 12/08/24 MR#: [id number] Acct: [id number] Name: LINA MEADOWS Rep #:[id number] : 1960 64 From: Miki Sen DO PCP: Dr. Milind Lamb MD Status:ADM I N Location: [place] [id number] Miki Sen DO on [...] to being out of her testing strips. [facility] Medical History Accelerated hypertension DKA (diabetic ketoacidosis) Sinus tachycardia seen on night monitor Diabetic ketoacidosis associated with type 1 diabetes [...] follow commands and that she was at [facility] year is 2024 Skin: Warm, dry, [...] % (Auto) 67.7 Lymph % (Auto) 22.8 [place] % (Auto) 7.7 Eos % (Auto) 0.9 [...] Color Urine Clarity Urine pH Ur Specific [place] Urine Protein Urine Glucose (UA) Urine Ketones [...] (Auto) Neut % (Auto) Lymph % (Auto) [place] % (Auto) Eos % (Auto) Baso % [...] Clarity Clear Urine pH 6.0 Ur Specific [place] 1.015 Urine Protein 30 H Urine Glucose [...] 11:16 pm with readback verification. Reading Location: [facility] Discharge Plan Triage Chief Complaint: Hyperglycemia [...] MD [Primary Care Provider] - Print Language: Korean Disposition Disposition: Acute Care Hospital [facility] What to do if you have Problems For any increased pain, shortness of breath, bleeding, nausea or vomiting, chestpain, or any unexpected problems, contact your Primary Care Provider. Call [facility] ([phone]) or report tothe closest Emergency Room. Call 911 if necessary. 12/09/24 001 Cosigner Signature (if applicable): CC: Dr. Milind Lamb MD ~ Signed [facility]06-05-2025 Progress note Author Ciro Mendosa [facility] Note Date/Time December 09, 2024 9:33a m [facility] Medical Records Department [address] [place] [address] Progress Note - Hospitalist 12/09/24905 MR#: [id number] Acct: [id number] Name: JANISLINA E Rep #:[id number] : 1960 64 From: Ciro Mendosa MD PCP: Dr. Milind Lamb MD Status:ADM I N [facility] Reason for Visit Reason for Visit: Diagnoses [...] % (Auto) 67.7, Lymph % (Auto) 22.8, [place] % (Auto) 7.7, Eos % (Auto) 0.9, [...] Albumin 4.3, Globulin 3.2, Albumin/Globulin Ratio 1.4, Aaxmac29, b-Hydroxybutyric mmol/L 7.9 H, POC Glucose > 500 H* 12/08/24 20:49: POC Glucose 491 H* 12/08/24 22:11: POC Glucose 380 H 12/08/24 22:25: Urine Color Yellow, Urine Clarity Clear, Urine pH 6.0, Ur Specific [place] 1.015, Urine Protein 30 H, Urine Glucose [...] % (Auto) 52.3, Lymph % (Auto) 34.5, [place] % (Auto) 9.7, Eos % (Auto) 2.7, [...] 11:16 pm with readback verification. Reading Location: [id number] Physical Exam Narrative GENERAL: cooperative but appears [...] 52 Minutes Charges/Coding Visit Charges Inpatient E&M: 38606 Subs Hosp L3 12/09/24 0933 <Electronically signed by Ciro Mendosa MD> Cosigner Signature (if applicable): CC: ~ Signed [facility] Work Phone: 1(255) 623-974806-05-2025 Progress note [facility] Medical Records Department [address] [place] [address] Progress Note - Hospitalist 12/09/24 0906 MR#: [id number] Acct: [id number] Name: LINA MEADOWS Rep #:[id number] : 1960 64 From: Ciro Mendosa MD PCP: Dr. Milind Lamb MD Status:ADM I N [facility] Reason for Visit Reason for Visit: Diagnoses [...] Neut% (Auto) 67.7, Lymph % (Auto) 22.8, [place] % (Auto) 7.7, Eos % (Auto) 0.9, [...] Albumin 4.3, Globulin 3.2, Albumin/Globulin Ratio 1.4, Hygwvo78, b-Hydroxybutyric mmol/L 7.9 H, POC Glucose > 500 H* 12/08/24 20:49: POC Glucose 491 H* 12/08/24 22:11: POC Glucose 380 H 12/08/24 22:25: Urine Color Yellow, Urine Clarity Clear, Urine pH 6.0, Ur Specific [place] 1.015, Urine Protein 30 H, Urine Glucose [...] Neut %(Auto) 52.3, Lymph % (Auto) 34.5, [place] % (Auto) 9.7, Eos % (Auto) 2.7, [...] 11:16 pm with readback verification. Reading Location: [facility] Physical Exam Narrative GENERAL: cooperative but [...] 52 Minutes Charges/Coding Visit Charges Inpatient E&M: 35411 Subs Hosp 12/09/24 0933 Cosigner Signature (if applicable): CC: ~ Signed [facility]06-05-2025 History and physical note Author Zelda Ibarra [facility] Note Date/Time December 09, 2024 1:00a [facility] Medical Records Department [address] [place] [address] H&P Exam - Hospitalist 12/09/24 0010 MR#: [id number] Acct: [id number] Name: LINA MEADOWS Rep #:[id number] : 1960 64 From: Zelda Ibarra MD [...] HTN, HLD, GERD who presents to the [facility] ED on 12/09/2024 with history of 24 [...] 1 and eventually placed on insulin drip. [facility] Medical History Sinus tachycardia seen on night monitor Back pain Tobacco use Anxiety and depression [...] % (Auto) 67.7, Lymph % (Auto) 22.8, [place] % (Auto) 7.7, Eos % (Auto) 0.9, [...] Clarity Clear, Urine pH 6.0, Ur Specific [place] 1.015, Urine Protein 30 H, Urine Glucose [...] 11:16 pm with readback verification. Reading Location: [id number] Assessment & Plan Assessment/Plan (1) Diabetic ketoacidosis: PLAN: Plan The patient is a 64 y/o F w/ PMHx: IDDM, Anxiety and Depression, Former tobacco use, Chart reported history of EtOH abuse, HTN, HLD, GERD who presents to the [facility] ED on 12/09/2024 with history of persistent [...] prophylaxis: Lovenox. Charges/Coding Visit Charges Inpatient E&M: 24120 Init Hosp L3 12/09/24 0100 <Electronically signed by Zelda Ibarra MD> Cosigner Signature (if applicable): CC: Dr. Zelda Ibarra MD; Dr. Milind Lamb MD~ Signed [facility] Work Phone: 1(597) 252-478406-05-2025 Evaluation note* Diagnosis Onset Date Resolution Status Admit Date Abnormal computed tomography of abdomen and pelvis acute December 09 12:10am Diabetic ketoacidosis acute Dec 12:10am [facility] Work Phone: 1(700) 636-948406-05-2025 Evaluation note* Diagnosis Onset Date Resolution Status Admit Date Abnormal computed tomography of abdomen and pelvis acute December 09 12:10am Diabetic ketoacidosis resolved Dec 12:10am [facility] Work Phone: 1(899) 392-900506-05-2025 History and physical note [facility] Medical Records Department [address] [place] [address] H&P Exam - Hospitalist 12/09/24 0010 MR#: [id number] Acct: [id number] Name: LINA MEADOWS Rep #:[id number] : 1960 64 From: Zelda Ibarra MD PCP: Dr. Milind Lamb MD Status:ADM I N Location: ICU ICU05- HPI - General General Date of Admission: 12/09/24 Date of Service: 12/09/24 Chief Complaint: N/V/D HPI Narrative The patient is a 64 y/o F w/ PMHx: IDDM, Anxiety and Depression, Former tobacco use, Chart reportedhistory of EtOH abuse, HTN, HLD, GERD who presents to the [facility] ED on 12/09/2024 with history of 24 [...] 1 and eventually placed on insulin drip. [facility] Medical History Sinus tachycardia seen on night monitor Back pain Tobacco use Anxiety and depression [...] Neut% (Auto) 67.7, Lymph % (Auto) 22.8, [place] % (Auto) 7.7, Eos % (Auto) 0.9, [...] Clarity Clear, Urine pH 6.0, Ur Specific [place] 1.015, Urine Protein 30 H, Urine Glucose [...] 11:16 pm with readback verification. Reading Location: [id number] Assessment & Plan Assessment/Plan (1) Diabetic ketoacidosis: PLAN: Plan The patient is a 64 y/o F w/ PMHx: IDDM, Anxiety and Depression, Former tobacco use, Chart reportedhistory of EtOH abuse, HTN, HLD, GERD who presents to the [facility] ED on 12/09/2024 with history of persistent [...] MCV 87.4, baseline hemoglobin most recent noted 04-16, stable, continue to trend. #6. Anxiety and [...] prophylaxis: Lovenox. Charges/Coding Visit Charges Inpatient E&M: 25436 Init Hosp L3 12/09/24 0100 Cosigner Signature (if applicable): CC: Dr. Zelda Ibarra MD; Dr. Milind Lamb MD~ Signed [facility]06-05-2025 Discharge summary [facility] Medical Records Department [address] [place] [address] Emergency Department Summary 12/08/24 MR#: [id number] Acct: [id number] Name: LINA MEADOWS Rep #:[id number] : 1960 64 From: Miki Sen DO [...] to being out of her testing strips. [facility] Medical History Accelerated hypertension DKA (diabetic ketoacidosis) Sinus tachycardia seen on night monitor Diabetic ketoacidosis associated with type 1 diabetes [...] follow commands and that she was at [facility] year is 2024 Skin: Warm, dry, [...] % (Auto) 67.7 Lymph % (Auto) 22.8 [place] % (Auto) 7.7 Eos % (Auto) 0.9 [...] Color Urine Clarity Urine pH Ur Specific [place] Urine Protein Urine Glucose (UA) Urine Ketones [...] (Auto) Neut % (Auto) Lymph % (Auto) [place] % (Auto) Eos % (Auto) Baso % [...] Clarity Clear Urine pH 6.0 Ur Specific [place] 1.015 Urine Protein 30 H Urine Glucose [...] 11:16 pm with readback verification. Reading Location: [id number] Discharge Plan Triage Chief Complaint: Hyperglycemia ED [...] MD [Primary Care Provider] - Print Language: Korean Disposition Disposition: Acute Care Hospital [facility] What to do if you have Problems For any increased pain, shortness of breath, bleeding, nausea or vomiting, chestpain, or any unexpected problems, contact your Primary Care Provider. Call [facility] ([phone]) or report tothe closest Emergency Room. Call 911 if necessary. 12/09/24 0019 Cosigner Signature (if applicable): CC: Dr. Milind Lamb MD ~ Signed [facility]06-04-2025 Radiology Diagnostic study note [facility] Imaging Services [address] [place], [place] [address] Abdomen/Pelvis W IV Cont ONLY MR#: [id number] Acct: [id number] Name: LINA MEADOWS Rep #: [id number] : 1960 F 64 From: Leigha Gaviria MD PCP: Dr. Milind Lamb MD Status: REG E R Study:Abdomen/Pelvis W IV Cont ONLY Date of E xam: 12/08/24 Exam# [id number] Ordering Dr: Marvin Sen DO PROCEDURE: ABDOMEN/PELVIS [...] 11:16 pm with readback verification. Reading Location: [id number] CC: Dr. Milind Lamb MD; Dr. Miki Sen DO ~ Glass Enamel Mixer: Signed [facility]06-04-2025 Discharge summary Author Miki Sen [facility] Note Date/Time December 09, 2024 12:19 am [facility] Medical Records Department [address] [place] [address] Emergency Department Summary 12/08/24 MR#: [id number] Acct: [id number] Name: LINA MEADOWS Rep #:[id number] : 1960 64 From: Miki Sen DO [...] to being out of her testing strips. [facility] Medical History Accelerated hypertension DKA (diabetic ketoacidosis) Sinus tachycardia seen on night monitor Diabetic ketoacidosis associated with type 1 diabetes [...] x #50 ea 07/28/22 Unknow n Rx / (BD Ultra-Fine Josefina Pen Needle) lancets 28 [...] follow commands and that she was at [facility] year is 2024 Skin: Warm, dry, [...] % (Auto) 67.7 Lymph % (Auto) 22.8 [place] % (Auto) 7.7 Eos % (Auto) 0.9 [...] Color Urine Clarity Urine pH Ur Specific [place] Urine Protein Urine Glucose (UA) Urine Ketones [...] (Auto) Neut % (Auto) Lymph % (Auto) [place] % (Auto) Eos % (Auto) Baso % [...] Clarity Clear Urine pH 6.0 Ur Specific [place] 1.015 Urine Protein 30 H Urine Glucose [...] directly by me by telephone to Miki Sne on 12/08/2024 at 11:16 pm with readback verification. Reading Location: [id number] Discharge Plan Triage Chief Complaint: Hyperglycemia ED [...] MD [Primary Care Provider] - Print Language: Korean Disposition Disposition: Acute Care Hospital [facility] What to do if you have Problems For any increased pain, shortness of breath, bleeding, nausea or vomiting, chestpain, or any unexpected problems, contact your Primary Care Provider. Call [facility] ([phone]) or report to the closest Emergency Room. Call 911 if necessary. 12/09/24 0019 <Electronically signed by Miki Sen DO> Cosigner Signature (if applicable): CC: Dr. Milind Lamb MD ~ Signed [facility] Work Phone: [phone]) 244-391410-29-2024 [facility]01-23-2024 Discharge summary Author Reece Smith [facility] July 29, 2023 4:22pm Note Date/Time July 29, 2023 2 :09pm [facility] Medical Records Department [address] [place] [address] Emergency Department Summary 07/29/23 MR#: [id number] Acct: [id number] Name: LINA MEADOWS Rep #:[id number] : 1960 63 From: Reece Smith MD [...] (Auto) 72.9 H Lymph % (Auto) 19.3 [place] % (Auto) 5.7 Eos % (Auto) 1.1 [...] Clarity Clear Urine pH 6.0 Ur Specific [place] 1.020 Urine Protein Negative Urine Glucose (UA) [...] (Auto) Neut % (Auto) Lymph % (Auto) [place] % (Auto) Eos % (Auto) Baso % (Auto) Absolute Neuts (auto) Absolute Lymphs (auto) Nucleated RBC % Sodium Potassium Chloride Carbon Dioxide Anion Gap BUN Creatinine Estim Creat Clear Calc Est GFR (MDRD) Af Amer Est GFR (MDRD) Non-Af BUN/Creatinine Ratio Glucose Calcium Troponin I High Sens Urine Color Urine Clarity Urine pH Ur Specific [place] Urine Protein Urine Glucose (UA) Urine Ketones [...] Qty: 100 0RF Rx Instructions: As directed Magnus Martinez U-300 SoloStar 300 unit/mL (3 mL) insulin [...] your Primary Care Provider. Call [facility] ([phone]) or report to the closest Emergency Room. Call 911 if necessary. 07/29/23 1622 <Electronically signed by Reece Smith MD> Cosigner Signature (if applicable): CC: Dr. Milind Lamb MD ~ Signed [facility] Work Phone: 1(909) 424-661412-27-2023 Discharge summary Author Steven Voss [facility] July 02, 2023 8:59pm Note Date/Time July 02, 2023 7:16pm [facility] Medical Records Department [address] [place] [address] Emergency Department Summary 07/02/23 MR#: [id number] Acct: [id number] Name: LINA MEADOWS Rep #:[id number] : 1960 63 From: Steven Voss MD [...] denies cough or sputum production. Denies dyspnea [place] exertion. She denies abdominal pain, nausea, vomiting [...] (Auto) 74.0 H Lymph % (Auto) 20.1 [place] % (Auto) 4.6 Eos % (Auto) 0.1 [...] Clarity Clear Urine pH 5.0 Ur Specific [place] 1.020 Urine Protein 30 H Urine Glucose [...] durations 88 ms. QT duration 344 ms. [place] is normal. There is nonseptic changes which [...] insulin to treat DKA), Discussing w/Patient &/or Family/Parts Salvager, Discussing w/Consultants and Arranging Admission or Transfer Discharge Plan Dx/Rx/DC Orders Clinical Impression: Pyuria, Back pain, Diabetic ketoacidosis associated with type 1 diabetes mellitus, Elevated serum creatinine, Sinus tachycardia by electrocardiogram Disposition Disposition: Acute Care Hospital [facility] What to do if you have Problems For any increased pain, shortness of breath, bleeding, nausea or vomiting, chestpain, or any unexpected problems, contact your Primary Care Provider. Call [facility] ([phone]) or report to the closest Emergency Room. Call 911 if necessary. 07/02/232058 <Electronically signed by Steven Voss MD> Cosigner Signature (if applicable): CC: Dr. Milind Lamb MD ~ Signed [facility] Work Phone: 1(409) 950-577212-27-2023 Hospital Discharge instructions Additional Instructions Ice 20 minutes on, 20 minutes off. Do not do heat. Perform lumbar stretching exercises as shown at bedside and on discharge paperwork. If nosebleed starts again, hold 20 minutes on continuous pressure, if bleeding does not stop, return to the ER for reevaluation. Use ajlv-ndk-zbtxpqk MiraLAX twice a day for the next 3 to 4 days for good bowel relief. Use kkuk-kun-nwixlbz magnesium citrate or mineral oil 1-2 bottles a day for the next 2 days to help with the bowels as well. Use either gwqv-upt-wdbdxrn Motrin, Advil, ibuprofen or Naprosyn daily to help with pain and inflammation. Follow-up and establish PCP [facility] Work Phone: 1(120) 186-242501-22-[address] Ahumada [facility] July 28, 2022 2:11pm Note Date/Time July 28, 2022 2 :11pm [facility] Medical Records Department [address] [place] [address] Discharge Summary 07/28/22 1409 MR#: [id number] Acct: [id number] Name: LINA MEADOWS Rep #:[id number] : 1960 62 From: Sanjiv Ahumada DO PCP: Dr. Milind Lamb MD Status:ADM I N Location: [place] [address] Providers Date of Admission: 07/26/22 Date of [...] Freq: Status: Active Protocol: Document 07/26/22 15:35 [facility] (Rec: 07/26/22 15:35 [facility] SYSTEM [id number]) Nutrition Malnutrition Evidence of Malnutrition Exists Yes [...] mg PO BID Referrals / Follow Up: [facility] [Provider Group] - Within 1 Month Milind Lamb MD [Primary Care Provider] - Within 2 Weeks Disposition Disposition (needs filled in before D/C Order can be placed): Home, Self Care Charges/Coding Visit Charges Inpatient E&M: 17693 Disch Hosp >30min 07/28/22 1411 <Electronically signed by Sanjiv Ahumada DO> Cosigner Signature (if applicable): CC: Dr. Sanjiv Ahumada DO; Dr. Milind Lamb MD~ Signed [facility] Work Phone: 1(143) 349-484101-22-[address] Ahumada [facility] July 28, 2022 2:09pm Note Date/Time July 28, 2022 2 :02pm [facility] Medical Records Department [address] [place] [address] Instructions for Home/Discharge Instructions 07/28/22 1402 MR#: [id number] Acct: [id number] Name: LINA MEADOWS Rep #:[id number] : 1960 62 From: Sanjiv Ahumada DO [...] mg PO BID Referrals / Follow Up: [facility] [Provider Group] - Within 1 Month Milind Lamb MD [Primary Care Provider] - Within 2 Weeks Disposition Disposition (needs filled in before D/C Order can be placed): Home, Self Care 07/28/22 1409<Electronically signed by Sanjiv Ahumada DO>Sanjiv Ahumada DO CC: Dr. Milind Lamb MD ~ Signed [facility] Work Phone: 1(101) 703-407601-21-[address] Ahumada [facility] July 27, 2022 2:19pm Note Date/Time July 27, 2022 7 :43am [facility] Medical Records Department [address] [place] [id number] Progress Note - Hospitalist 07/27/22 0739 MR#: [id number] Acct: [id number] Name: LINA MEADOWS Rep #:[id number] : 1960 62 From: Sanjiv Ahumada DO PCP: Dr. Milind Lamb MD Status:ADM I N Location: [place] [address] Subjective Subjective Feels well. Objective Data Objective [...] 07/26/22 15:35 SLA (Rec: 07/26/22 15:35 SLA [id number]) Nutrition Malnutrition Evidence of Malnutrition Exists Yes [...] 79.8 H, Lymph % (Auto) 12.1 L, [place] % (Auto) 5.0, Eos % (Auto) 0.1, [...] Clarity Clear, Urine pH 6.5, Ur Specific [place] 1.015, Urine Protein 30 H, Urine Glucose [...] % (Auto) 58.4, Lymph % (Auto) 29.5, [place] % (Auto) 10.3 H, Eos % (Auto) [...] oral agents. Charges/Coding Visit Charges Inpatient E&M: 49988 Subs Hosp L2 07/27/22 3399 <Electronically signed by Sanjiv Ahumada DO> Cosigner Signature (if applicable): CC: ~ Signed [facility] Work Phone: 1(431) 609-115501-20-2023 History and physical note Author Dr. Ahumada [facility] July 26, 2022 1:45pm Note Date/Time July 26, 2022 1 :45pm [facility] Medical Records Department [address] [place] [address] H&P Exam - Hospitalist 07/26/22 1340 MR#: [id number] Acct: [id number] Name: LINA MEADOWS Rep #:[id number] : 1960 62 From: Sanjiv Ahumada DO [...] The hospitalist service was contacted for admission. [facility] Medical History Anxiety and depression COVID-19 Diabetes [...] 79.8 H, Lymph % (Auto) 12.1 L, [place] % (Auto) 5.0, Eos % (Auto) 0.1, [...] Ahumada DO; Dr. Milind Lamb MD~ Signed [facility] Work Phone: 1(646) 193-936701-20-[address] Voss [facility] July 26, 2022 12:19pm Note Date/Time July 26, 2022 1 1:41am [facility] Medical Records Department [address] [place] [address] Emergency Department Summary 07/26/22 MR#: [id number] Acct: [id number] Name: LINA MEADOWS Rep #:[id number] : 1960 62 From: Steven Voss MD [...] 79.8 H Lymph % (Auto) 12.1 L [place] % (Auto) 5.0 Eos % (Auto) 0.1 [...] 92 ms. QT duration during 26 ms. [place] is normal. There isartifact noted. There may [...] creatinine, Tachypnea Disposition Disposition: Acute Care Hospital [facility] What to do if you have Problems For any increased pain, shortness of breath, bleeding, nausea or vomiting, chestpain, or any unexpected problems, contact your Primary Care Provider. Call [facility] ([phone]) or report to the closest Emergency Room. Call 911 if necessary. 07/26/22 1219 <Electronically signed by Steven Voss MD> Cosigner Signature (if applicable): CC: Dr. Milind Lamb MD ~ Signed [facility] Work Phone: 1(916) 878-998001-20-[address] Voss [facility] July 26, 2022 12:19pm Note Date/Time July 26, 2022 1 1:41am [facility] Medical Records Department [address] [place] [address] Emergency Department Summary 07/26/22 MR#: [id number] Acct: [id number] Name: LINA MEADOWS Rep #:[id number] : 1960 62 From: Steven Voss MD [...] 79.8 H Lymph % (Auto) 12.1 L [place] % (Auto) 5.0 Eos % (Auto) 0.1 [...] 92 ms. QT duration during 26 ms. [place] is normal. There isartifact noted. There may [...] creatinine, Tachypnea Disposition Disposition: Acute Care Hospital [facility] What to do if you have Problems For any increased pain, shortness of breath, bleeding, nausea or vomiting, chestpain, or any unexpected problems, contact your Primary Care Provider. Call [facility] ([phone]) or report to the closest Emergency Room. Call 911 if necessary. 07/26/22 2958 <Electronically signed by Steven Voss MD> Cosigner Signature (if applicable): CC: Dr. Milind Lamb MD ~ Signed [facility] Work Phone: 1(294) 834-839011-01-2022 Hospital Discharge instructions Additional Instructions Use dpxq-niz-mxcnhlg cold and flu medicine to help with your symptoms. You can use sugar-free cough drops. Use the inhaler given to you 1 to 2 puffs every 4-6 hours as needed for shortness of breath or cough. Drink lots of fluids.[facility] Work Phone: 1(136) 216-302810-28-2022 Hospital Discharge instructions Additional Instructions Use akra-qaq-yoawztr cold and flu medicine to help with your symptoms. You can use sugar-free cough drops. Use the inhaler given to you 1 to 2 puffs every 4-6 hours as needed for shortness of breath or cough. Drink lots of fluids.[facility] Work Phone: Discharge summary Author Dr. Ahumada [facility] July 28, 2022 2:09pm Note Date/Time July 28, 2022 2 :02pm [facility] Medical Records Department [address] [place] [address] Instructions for Home/Discharge Instructions 07/28/22 1402 MR#: [id number] Acct: [id number] Name: LINA MEADOWS Rep #:[id number] : 1960 62 From: Sanjiv Ahumada DO [...] mg PO BID Referrals / Follow Up: [facility] [Provider Group] - Within 1 Month Milind Lamb MD [Primary Care Provider] - Within 2 Weeks Disposition Disposition (needs filled in before D/C Order can be placed): Home, Self Care 07/28/22 1409<Electronically signed by Sanjiv Ahumada DO>Sanjiv Ahumada DO CC: Dr. Milind Lamb MD ~ Signed [facility] Work Phone: Discharge summary Author Dr. Ahumada [facility] July 28, 2022 2:11pm Note Date/Time July 28, 2022 2 :11pm [facility] Medical Records Department [address] [place] [address] Discharge Summary 07/28/221408 MR#: [id number] Acct: [id number] Name: LINA MEADOWS Rep #:[id number] : 1960 62 From: Sanjiv Ahumada DO PCP: Dr. Milind Lamb MD Status:ADM I N Location: [place] [id number] Providers Date of Admission: 07/26/22 Date of [...] Freq: Status: Active Protocol: Document 07/26/22 15:35 [facility] (Rec: 07/26/22 15:35 [facility] [id number]) Nutrition Malnutrition Evidence of Malnutrition Exists Yes [...] mg PO BID Referrals / Follow Up: [facility] [Provider Group] - Within 1 Month Milind Lamb MD [Primary Care Provider] - Within 2 Weeks Disposition Disposition (needs filled in before D/C Order can be placed): Home, Self Care Charges/Coding Visit Charges Inpatient E&M: 29797 Disch Hosp >30min 07/28/22 1411 <Electronically signed by Sanjiv Ahumada DO> Cosigner Signature (if applicable): CC: Dr. Sanjiv Ahumada DO; Dr. Milind Lamb MD~ Signed [facility] Work Phone: evaluation + Plan note Future Appointments Appointment Date:04/20/2025 10:00:00 AM Scheduled Provider:GLORY WEEMS Location:[facility] Appointment Type:PC OV Follow Up [facility] evaluation note* Diagnosis Onset Date Resolution Status Acute dehydration acute Acute kidney injury acute DKA (diabetic ketoacidosis) acute History of alcoholism acute Pancreatitis acute [facility] Work Phone: evaluation note* Diagnosis Onset Date Resolution Status DKA (diabetic ketoacidosis) acute History of alcoholism acute Acute dehydration resolved Acute kidney injury resolved Pancreatitis resolved Diabetes acute Hypokalemia acute [facility] Work Phone: evaluation note* Diagnosis Onset Date Resolution Status Diabetes acute Hypokalemia acute Diabetic keto-acidosis acute Elevated serum creatinine ac [place] Sinus tachycardia acute Tachypnea acute [facility] Work Phone: evaluation note* Diagnosis Onset Date Resolution Status Diabetes acute Hypokalemia acute Diabetic keto-acidosis acute Elevated serum creatinine ac [place] Hypokalemia acute Sinus tachycardia acute Tachypnea acute BRITTNI (acute kidney injury) re solved [facility] Work Phone: evaluation noteNo assessment information available [facility] Work Phone: evaluation note* Diagnosis Onset Date Resolution Status Back pain acute Diabetic ketoacidosis associ ated with type 1 diabetes mellitus acute Elevated serum creatinine ac [place] Pyuria acute Sinus tachycardia by electrocardiogram acute [facility] Work Phone: Evaluation note* Diagnosis Onset Date Resolution Status Diabetic keto-acidosis resol yin Elevated serum creatinine re solved Sinus tachycardia by electrocardiogram resolved [facility] Work Phone: evaluation note* Diagnosis Onset Date Resolution Status Admit Date Abnormal computed tomography of abdomen and pelvis acute December 09 12:32am Diabetic ketoacidosis acute Dec 12:32am [facility] Work Phone: evaluation note* Diagnosis 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 Hospital Discharge instructions Additional Instructions Is obviously [...] Please return to emergency room for repeat examination.[facility] Work Phone: Hospital Discharge instructions No data available for this section [facility] Hospital Discharge instructionsAdditional Instructions Images placed on a disk for you. Chest abdomen pelvis performed. No chest mass. Left renal mass 7.1 cm previously 6.6 cm. UA and urine with signs of infection. Culture sent. Take antibiotic prescribed. Follow-up with Dr. Felipe urology as scheduled for discussion of intervention.[facility] Work Phone: Progress note No data available for this section [facility] Reason for referral (narrative)No reason for referral information [facility] Work Phone: Summary Purpose Family History No Family History Records Found Relationship Condition Age at Onset Recorded Date/T afia mother Diabetes mellitus Unknown father Diabetes mellitus Unknown Malignant neoplasm Unknown Advance Directives No Advanced Directives Records Found Advance Directive Response Recorded Date/ Time Living Will No March 03 8:17pm Power of Care Companion No March 03 022 8:17pm Advance Directive Response Recorded Date/ Time Living Will No May 03 6:14am Power of Care Companion No May 03, 2022 6:14am Advance Directive Response Recorded Date/ Time Living Will No July 26 11:33am Power of Care Companion No July 26, 2022 11:33am Advance Directive Response Recorded Date/ Time Living Will No July 26 2:20pm Power of Care Companion No July 26, 2022 2:20pm Advance Directive Response Recorded Date/ Time Living Will No July 01, 2 023 12:05am Power of Care Companion No July 01, 2023 12:05am Advance Directive Response Recorded Date/ Time Living Will No July 02, 2 023 8:26am Power of Care Companion No July 02, 2023 8:26am Advance Directive Response Recorded Date/ Time Living Will No July 02, 2 023 7:15pm Power of Care Companion No July 02, 2023 7:15pm Advance Directive Response Recorded Date/ Time Living Will No July 29 1:01pm Power of Care Companion No July 29, 2023 1:01pm Advance Directive Response Recorded Date/ Time Do you have a Healthcare Power of Care Companion? No December 08, 2024 7:55pm Advance Directive Response Recorded Date/ Time Do you have a Healthcare Power of Care Companion? No December 09, 2024 1:00am Advance Directive Response Recorded Date/ Time Do you have a Healthcare Power of Care Companion? No December 09, 2024 1:00am Do you have a Healthcare Power of Care Companion? No February 25, 2025 10:00pm Advance Directive Response Recorded Date/ Time Do you have a Healthcare Power of Care Companion? No December 09, 2024 1:00am Do you have a Healthcare Power of Care Companion? No February 25, 2025 10:00pm Do you have a Healthcare Power of Care Companion? No March 04, 2025 6:10pm Advance Directive Response Recorded Date/ Time Do you have a Healthcare Power of Care Companion? No December 09, 2024 1:00am Do you have a Healthcare Power of Care Companion? No March 17, 2025 2:25pm Do you have a Healthcare Power of Care Companion? No February 25, 2025 10:00pm Do you have a Healthcare Power of Care Companion? No March 04, 2025 6:10pm Chief Complaint [...] Admit Date PE NON DOT DRUG SCREEN/ [facility] July 16, 2024 11:46am Chief Complaint [...] section and content) DATE CREATED AUTHOR 07/29/2018 [facility] DATE CREATED AUTHOR AUTHOR'S ORGANIZ ATION 01/25/2025 [facility] DATE CREATED AUTHOR AUTHOR'S ORGANIZ ATION 04/12/2025 [facility] DATE CREATED AUTHOR AUTHOR'S ORGANIZ ATION 04/24/2025 [facility] DATE CREATED AUTHOR AUTHOR'S ORGANIZ ATION 04/24/2025 [facility] Care Teams (unrecognized sec tion [...] Active Start: December 10, 2024 Dr. Ciro Mednosa MD Other Provider Active Star t: December [...] End: February 26, 2025 GLORY MAST , GRAPHICS PRODUCTION SPECIALIST Primary Care Provider Active Start: February 25, 2025 End: February 26, 2025 Team Status: Inactive Member Role/Relationship Status Dates Dr. Zane Gallardo DO Attending Provider Active Start : February 25, 2025 End: February 26, 2025 Dr. Zane Gallardo DO Emergency Provider Active Start : February 25, 2025 End: February 26, 2025 GLORY MAST , GRAPHICS PRODUCTION SPECIALIST Primary Care Provider Active Start: February 25, 2025 End: February 26, 2025 Team Status: Inactive Member Role/Relationship Status Dates GLORY MAST , GRAPHICS PRODUCTION SPECIALIST Primary Care Provider Active Start: March 04, 2025 End: March 04, 2025 Dr. Sanjiv Marcial DO Emergency Provider Active Start: March 04, 2025 End: March 04, 2025 Team Status: Inactive Member Role/Relationship Status Dates GLORY MAST , GRAPHICS PRODUCTION SPECIALIST Primary Care Provider Active Start: March 04, 2025 End: March 04, 2025 Dr. Sanjiv Marcial DO Attending Provider Active Start: March 04, 2025 End: March 04, 2025 Dr. Sanjiv Marcial , DO Emergency Provider Active Start: March 04, 2025 End: March 04, 2025 Team Status: Inactive Member Role/Relationship Status Dates GLORY WEEMS YONATAN Primary Care Provider Active Start: March 17, 2025 End: March 17, 2025 Dr. Sanjiv Marcial , DO Emergency Provider Active Start: March 17, 2025 [...] or prosecute any alcohol or drug abuse patient.[facility] the event this information is protected by the Federal Confidentiality of Alcohol and Drug Abuse Patient Records regulations: The Federal rules restrict any use of the information to criminally investigate or prosecute any alcohol or drug abuse patient.[facility] the event this information is protected by the Federal Confidentiality of Alcohol and Drug Abuse Patient Records regulations: The Federal rules restrict any use of the information to criminally investigate or prosecute any alcohol or drug abuse patient.[facility] the event this information is protected by the Federal Confidentiality of Alcohol and Drug Abuse Patient Records regulations: The Federal rules restrict any use of the information to criminally investigate or prosecute any alcohol or drug abuse patient.[facility] Reason for Visit (unrecogniz ed section [...] BE BASED ON THE PRIMARY CLINICAL RECORDS. [facility] [employer] [facility]. provides no warranty or guarantee of the accuracy or completeness of information in this document.
[2025-05-01 22:06] LABS: Anion Gap 31 (5-15); Carbon Dioxide 5.7 mmol/L (21.0-32.0)
[2025-05-01] MEDS: Pantoprazole Sodium 40 MG in 0.9% Normal Saline (100mL MB+) 100 ML 330 MG IV (22:23)
[2025-05-01] MEDS: Heparin Injection (Vial) 5,000 UNIT/ML VIAL 5000 UNIT SC (22:24)
[2025-05-01 22:44] LABS: Allen Test Positive; Base Excess -12 mmol/L (-2 to +2); PO2 83 mmHG (75-100); SITE L Radial; SO2 95 % (94-98)
[2025-05-01 23:47] LABS: Anion Gap 19 (5-15); Carbon Dioxide 14.0 mmol/L (21.0-32.0); Chloride 103 mmol/L (98-108); Potassium 3.6 mmol/L (3.3-5.1)
[2025-05-02] VITALS (18 sets, daily range): BP systolic 108–136; BP diastolic 56–73; PULSE 92–108; RESP 14–19; TEMP 36.6–36.8; O2SAT 98–100; BMI 21.6
[2025-05-02] MEDS: 0.9% Normal Saline (1000mL) 1,000 ML 250 ML IV (00:48)
[2025-05-02] MEDS: Dext 5%-0.45% NS 1,000 ML 250 ML IV ×2 (02:03→05:51)
[2025-05-02 03:34] LABS: Hematocrit 28.4 % (37-47); Hemoglobin 9.5 g/dL (12.0-15.0); Immature Granulocytes Count 0.030 X10^3/uL (0.0-0.0); Mean Corp Hgb Conc 33.5 g/dL (32-36); Mean Corpuscular Volume 87.4 fL (81-99); Mean Platelet Vol. 11.8 fl (6.2-12.0); NRBC Flagged by Analyzer 0 % (0-5); Platelet Count 292 K/mm3 (150-450); RBC Distribution Width CV 13.2 % (11.6-14.6); RBC Distribution Width SD 41.9 fl (35.1-43.9); Red Blood Count 3.25 M/mm3 (4.2-5.4); White Blood Count 8.3 K/mm3 (4.4-11.0)
[2025-05-02 03:52] LABS: Anion Gap 13 (5-15); Carbon Dioxide 16.9 mmol/L (21.0-32.0); Chloride 106 mmol/L (98-108); Magnesium 2.3 mg/dL (1.5-2.2); Potassium 3.7 mmol/L (3.3-5.1)
[2025-05-02 06:05] LABS: SITE Not entered; VBG BASE EXCESS -8 mmol/L (-1.0-3.5); VBG PO2 163 mmHg (25-40); VBG SO2 99 % (50-70); VBG TCO2 21 mmol/L (23-33)
[2025-05-02] MEDS: 0.9% Saline Lock 10 ML Syringe IV ×4 (06:22→22:01)
[2025-05-02] MEDS: Potassium Chloride 10mEq/100mL 10 MEQ/100 ML IV.SOLN. 100 MEQ IV BOLUS ×2 (06:22→07:36)
[2025-05-02] MEDS: Heparin Injection (Vial) 5,000 UNIT/ML VIAL 5000 UNIT SC ×3 (06:22→22:08)
[2025-05-02 07:31] LABS: BETA-HYDROXYBUTYRATE 0.5 mmol/L (0.0-0.3); Cholesterol 233 mg/dL (<=200); Low Density Lipoprotein Calc. 148 mg/dL; Magnesium 2.0 mg/dL (1.5-2.2); Triglycerides 218 mg/dL; Very Low Density Lipoprotein 44 mg/dL (5-40); cholesterol:hdl ratio screen 5.12
[2025-05-02 07:45] LABS: Anion Gap 10 (5-15); Carbon Dioxide 16.7 mmol/L (21.0-32.0); Chloride 106 mmol/L (98-108); Potassium 3.6 mmol/L (3.3-5.1)
[2025-05-02] MEDS: Potassium Phosphate 21 MM in 0.9% Normal Saline (250mL Bag) 250 ML 84 MM IV (09:19)
[2025-05-02] MEDS: Insulin Glargine-YFGN 100 UNIT/ML Pen 25 UNIT SC (09:22)
--- NOTE | 2025-05-02 09:53 | CASEMGMT ---
Addendum entered by Lizet Engel 05/02/25 11:24: [facility] returns response and states that they are able to accept with SOC TBD contingent on pt's DC date. [facility] states that they cannot send a SW to the home due to the pt's insurance but that they can have a SW call the pt if needed. CM to follow. Original Note: RN CM Assessment Face to Face with patient for initial transition planning/care coordination assessment. RN CM introduced self and role at [facility], pt voices understanding. Pt is A&Ox4 and is resting comfortably in the chair and is calm. Care providers, pharmacy, and demographics verified. Admitting dx: DKA, Hyperkalemia, BRITTNI and UTI after Recent left kidney mass removal (x2 weeks ago). Pt states that her incision site is well and that her son helps with this at home. PAULA Strata: 2 PCP: Glory Weems Specialists: Pt reports that her PCP just recently referred her to [facility] and that she is awaiting a return call from them. Dr. Felipe ([facility] Urology), Pt also reports recently being established with an Oncologist through [facility] but cannot recall the name. Preferred Pharmacy: [facility] Insurance: [email or web address] Prescription Benefit: Yes LNOK: Joaquim Gomez (Son) Living Arrangements: Pt lives with her son in a single story home with 2 steps to enter. Pt states that her son had lost his job for some time and that they could not afford their housing and had to live homeless for a period of time. Pt states that her son has a new job now and that they are able to afford their current housing. SW notified. Pt states that she lost her BGM in the process but that she has been maintaining her CBGM. Pt states that she has enough supplies (Sensors) and pen needles. Noted that this chart writer provided the pt with a manual BGM and supplies Rx in December as a back up. Pt states that this was filled but that she lost it in the shuffle. ADLs/IADLs: Pt states that she has had increased weakness and that her son has been needing to help her out. Pt reports that PT and OT recently finished working with the pt and that she was able to ambulate in the halls some. Transportation: Pt states that she and her son both are without a vehicle currently but are able to drive. Pt states that she utilizes [facility] Transportation services and [employer]. Pt states that she has a friend from [employer] that also assists at times. DME: See above. CM to follow for another BGM Rx and supplies. Pt also educated about the [employer] and that the starter kit is 20$ at [employer], in the case that the insurance is unwilling to pay for another BGM and supplies. HHC/SNF: Denies SNF history or needs. Pt has a history with [facility]. Pt states that she would like skilled HHC. Pt could benefit from SN for DM management, PT for recent increase in weakness, and SW for pt's recent social issues (Housing affordability and transportation). At this time, the pt declines wanting to review a list of local in-network HHC Agencies and states that she would prefer [facility] HH. Pt states that she has had [facility] in the past. Pt educated about homebound status and pt reports that she believes she would be considered homebound. TC to [facility] and referral made for SN, PT, and SW. Awaiting return response. Pt?s goal: Home with HHC Plan: Home with skilled HHC with pt's son's support and Rx for a new glucometer and supplies. Follow for transportation needs. Pt to follow up with endocrinology, oncology, and urology as an OP. Pt states that she feels safe with this plan and denies further needs at this time. Hcetor Engel RN, CM
[2025-05-02] MEDS: Pantoprazole Sodium 40 MG in 0.9% Normal Saline (100mL MB+) 100 ML 330 MG IV (10:14)
[2025-05-02] MEDS: 0.9% Normal Saline (1000mL) 1,000 ML 150 ML IV ×2 (10:14→17:22)
--- NOTE | 2025-05-02 13:46 | CASEMGMT ---
Social Work- SW provided transportation information list to pt. Pt denies any other needs at this time. RENETTA Peña
[2025-05-02 14:50] LABS: Albumin, Serum 3.2 g/dL (3.4-4.8); Anion Gap 8 (5-15); BUN 23 mg/dL (4-19); BUN/Creat Ratio 14.8 RATIO (10-20); Calcium,Total 8.7 mg/dL (7.6-11.0); Carbon Dioxide 17.9 mmol/L (21.0-32.0); Chloride 110 mmol/L (98-108); Estimated Creatinine Clearance 30.93 ml/min (50-250); Glucose 178 mg/dL (70-99); Potassium 4.2 mmol/L (3.3-5.1)
--- NOTE | 2025-05-02 15:34 | PN.HOSP_ITS ---
Reason for Visit Chief Complaint: Nausea, Vomiting and Hyperglycemia. Subjective Subjective Patient was seen and examined today, she still complains of nausea but was able to eat lunch. Patient's blood sugars are improved and she was taken off her insulin drip earlier this morning. Objective Data Objective Data Vital Signs: Vital Signs Temp Pulse Resp BP Pulse Ox O2 Del Method 98.0 F 93 16 126/71 H 99 Room Air 05/02/25 15:00 05/02/25 15:00 05/02/25 15:00 05/02/25 15:00 05/02/25 15:00 05/02/25 15:00 Oxygen Delivery Method Room Air Weight: 55.3 kg Body Mass Index (BMI) 21.6 Intake & Output: Intake and Output for Last 24 Hours 04/30/25 05/01/25 05/02/25 23:59 23:59 23:59 Intake Total 2125.85 / 2125.85 3053.99 / 3053.99 Output Total 200 / 200 Balance 2125.85 / 2125.85 2853.99 / 2853.99 Lab / Micro Data 05/02/25 03:22 05/02/25 13:48 Labs: Laboratory Results - last 24 hr 05/01/25 15:09: POC Glucose > 500 H* 05/01/25 16:00: WBC 8.5, RBC 3.89 L, Hgb 11.3 L, Hct 36.5 L, MCV 93.8, MCH 29.0, MCHC 31.0 L, RDW Std Deviation 45.1 H, RDW Coeff of Nellie 13.2, Plt Count 342, MPV 12.2 H, Immature Gran % (Auto) 0.700, Neut % (Auto) 80.1 H, Lymph % (Auto) 13.7 L, [place] % (Auto) 3.9, Eos % (Auto) 0.5, Baso % (Auto) 1.1 H, Absolute Neuts (auto) 6.8, Absolute Lymphs (auto) 1.17, Nucleated RBC % 0, Sodium 130 L, P otassium 5.5 H, Chloride 90 L, Carbon Dioxide 8.1 L*, Anion Gap 32 H, BUN 35 H, Creatinine 2.36 H, Estim Creat Clear Calc 20.18 L, Est GFR (MDRD) Non-Af 23 L, BUN/Creatinine Ratio 14.8, Glucose 852 H*, Hemoglobin A1c 13.5 H, Lactic Acid 1.4, Calcium 10.4, Phosphorus 5.4 H, Magnesium 2.7 H, Total Bilirubin < 0.15, AST 7, ALT 7, Alkaline Phosphatase 121 H, Troponin T High Sens 15 H, Total Protein 7.7, Albumin 4.1, Globulin 3.7, Albumin/Globulin Ratio 1.1, b- Hydroxybutyric mmol/L 12.4 H 05/01/25 17:48: Urine Color Yellow, Urine Clarity Clear, Urine pH 6.0, Ur Specific [place] 1.015, Urine Protein 30 H, Urine Glucose (UA) 1000 H, Urine Ketones 150 A*, Urine Occult Blood 10 H, Urine Nitrite Negative, Urine Bilirubin Negative, Urine Urobilinogen Normal, Ur Leukocyte Esterase 100 H, Urine RBC 0-5 SEEN, Urine WBC 10-25 SEEN, Ur Squamous Epith Cells 0-5 SEEN, Urine Bacteria RARE, Urine Mucus 0 SEEN 05/01/25 17:58: POC Glucose > 500 H* 05/01/25 18:57: Sodium 133, Potassium 4.5, Chloride 97 L, Carbon Dioxide 5.7 L*, Anion Gap 31 H, Glucose 708 H*, Troponin T Hi Sens 2 Hr 17 H 05/01/25 19:15: POC Glucose > 500 H* 05/01/25 20:03: Troponin T Hi Sens 4Hr 20 H 05/01/25 20:27: POC Glucose 497 H* 05/01/25 21:22: POC Glucose 403 H 05/01/25 22:30: POC Glucose 339 H 05/01/25 23:05: Sodium 136, Potassium 3.6, Chloride 103, Carbon Dioxide 14.0 L, Anion Gap 19 H, Lactic Acid 1.3, TSH 0.367 05/01/25 23:27: POC Glucose 302 H 05/02/25 00:26: POC Glucose 264 H 05/02/25 01:29: POC Glucose 200 H 05/02/25 02:28: POC Glucose 216 H 05/02/25 03:22: WBC 8.3, RBC 3.25 L, Hgb 9.5 L, Hct 28.4 L, MCV 87.4 D, MCH 29.2, MCHC 33.5 D, RDW Std Deviation 41.9, RDW Coeff of Nellie 13.2, Plt Count 292, MPV 11.8, Immature Gran % (Auto) 0.400, Neut % (Auto) 60.6, Lymph % (Auto) 27.4, [place] % (Auto) 7.3, Eos % (Auto) 3.5, Baso % (Auto) 0.8, Absolute Neuts (auto) 5.0, Absolute Lymphs (auto) 2.26, Nucleated RBC % 0, Sodium 135, Potassium 3.7, Chloride 106, Carbon Dioxide 16.9 L, Anion Gap 13, Phosphorus 2.1 L, Magnesium 2.3 H 05/02/25 03:26: POC Glucose 206 H 05/02/25 04:30: POC Glucose 240 H 05/02/25 05:27: POC Glucose 227 H 05/02/25 06:27: POC Glucose 227 H 05/02/25 06:59: Sodium 132 L, Potassium 3.6, Chloride 106, Carbon Dioxide 16.7 L , Anion Gap 10, Phosphorus 1.5 L, Magnesium 2.0, Triglycerides 218 H, C holesterol 233 H, LDL Cholesterol, Calc 148, VLDL Cholesterol 44 H, HDL Cholesterol 46, Cholesterol/HDL Ratio 5.12, b-Hydroxybutyric mmol/L 0.5 H 05/02/25 07:33: POC Glucose 197 H 05/02/25 08:19: POC Glucose 173 H 05/02/25 09:21: POC Glucose 163 H 05/02/25 11:19: POC Glucose 185 H 05/02/25 13:48: Sodium 135, Potassium 4.2, Chloride 110 H, Carbon Dioxide 17.9 L , Anion Gap 8, BUN 23 H, Creatinine 1.54 H, Estim Creat Clear Calc 30.93 L, Est GFR (MDRD) Non-Af 38 L, BUN/Creatinine Ratio 14.8, Glucose 178 H, Calcium 8.7, Phosphorus 3.3, Albumin 3.2 L Micro: Microbiology 05/01/25 15:53 Mucosa - Nose SARS-CoV-2, Influenza & RSV (PCR) - Final ABG Data ABG results: ABG 05/01/25 05/01/25 05/02/25 15:58 22:41 06:02 Specimen Type LIZY ART LIZY Sample Site Not entered L Radial Not entered pH 7.27 L Bicarbonate Actual 14.6 L Total CO2 16 Base Excess -12 L O2 Saturation 95 ABG pCO2 31.9 L ABG pO2 83 Isac Test Positive VBG pH 7.16 L* 7.26 L VBG pO2 40 163 H VBG HCO3 8 L 19 L VBG Total CO2 9 L 21 L VBG O2 Sat (Calc) 61 99 H VBG Base Excess -21 L -8 L POC Mix VBG pCO2 Pt Tmp 22.5 L 43.2 O2 Delivery Device Not entered Not entered Not entered Vent Mode Not entered Crit Call To/Read Back Yes Blood Gas Notified Whom fritz Blood Gas Notified Time 16:00:35 Radiography Diagnostic Testing: Radiology Impression Chest X-Ray 05/01/25 17:03 IMPRESSION: NO ACUTE FINDINGS. Reading Location: [facility] [place] [facility] Abdomen/Pelvis CT 05/01/25 17:24 IMPRESSION: 1. Postoperative changes of recent left nephrectomy. No unexpected findings. 2. Unenhanced upper [place] right kidney is grossly unremarkable. No hydronephrosis. 3. Cholelithiasis. No findings to suggest acute cholecystitis. Reading Location: [facility] Physical Exam Const alert, oriented x3, no apparent distress and average body habitus General Appearance: cooperative, well kempt and well developed Orientation / Consciousness: awake, oriented to person, oriented to place and oriented to time HEENT normocephalic and head/scalp atraumatic Mouth: dry mucous membranes Eyes PERRL, EOMs intact bilaterally and conjunctivae normal Neck supple, no JVD, thyroid normal and no carotid bruits General: trachea midline Resp normal respiratory effort, no retractions, no use of accessory muscles and clear to auscultation bilaterally Auscultation: Negative for rales, rhonchi or wheezes Cardio regular rate, regular rhythm, S1 normal heart sound, S2 normal heart sound, no murmurs, no rub and no gallops GI normal to inspection, nondistended, normoactive bowel sounds, soft to palpation, non-tender and non-distended Extremity no clubbing, cyanosis or edema Skin no rashes or lesions noted General Skin Exam: no breakdown Neuro oriented x3, CN's II-XII intact bilaterally, moves all extremities, no focal motor deficits and no sensory deficits noted Sensorium / Orientation: awake and alert Speech: speech normal Psych affect normal Assessment & Plan Assessment/Plan (1) DKA, type 1: QUALIFIERS: Diabetes mellitus complication detail: without coma Q ualified Code(s): E10.10 - Type 1 diabetes mellitus with ketoacidosis without coma PLAN: Plan 1. Diabetic ketoacidosis-resolving at this time, patient will be moved to [place] [id number] for further care, I have placed her on twice daily basal insulin and Humalog with each meal., Sliding scale insulin will be administered as needed #2 acute kidney injury secondary to #1-patient's creatinine is improved today, I will continue IV fluids and reassess the patient tomorrow morning, BMP will be repeated in the morning #3 acute cystitis-patient will remain on Rocephin IV #4 chronic depression-patient is on Zoloft Total clinical time spent by myself addressing the patient's medical issues, reviewing all of her data, and collaborating with patient's care team: 35 minutes Charges/Coding Visit Charges Inpatient E&M: 67154 Subs Hosp L2
[2025-05-03] MEDS: 0.9% Normal Saline (1000mL) 1,000 ML 150 ML IV ×2 (00:13→06:20)
[2025-05-03 03:00] VITALS: BP 110/65; PULSE 89; RESP 16; TEMP 36.6; O2SAT 98
[2025-05-03 03:49] VITALS: BMI 23.1
[2025-05-03] MEDS: Heparin Injection (Vial) 5,000 UNIT/ML VIAL 5000 UNIT SC (06:20)
[2025-05-03] MEDS: Glucerna Shake 120 ML LIQUID PO (08:28)
[2025-05-03 09:04] VITALS: BP 150/93; PULSE 105; RESP 16; TEMP 36.6; O2SAT 99
[2025-05-03 12:06] LABS: Glucose 78 mg/dL (70-99)
--- NOTE | 2025-05-03 12:20 | CASEMGMT ---
Addendum entered by Abimbola Whitt 05/03/25 14:56: Noted new medication ordered. TC to [facility] to check cost or need for PA, no rx received. Noted the rx was printed. Hospitalist states pt has med at home. Spoke with pt nurse, pt has transport for home at 4pm. Original Note: Per hospitalist, pt will dc today. TC to Analilia at [facility], she is aware of dc and states they will be out to see pt tomorrow. JEFFRY CM into pt room, provided pt with a BGM rx. Pt states she does not have transportation home. She states that she has used her insurance transportation and is agreeable to calling to set this up. Provided her with phone number and her member ID. Pt is aware that [facility] will be out tomorrow to see her. Pt denies any further homegoing needs at this time.
--- NOTE | 2025-05-03 13:25 | DCINST_ITS ---
Discharge Instructions DC O2, CPAP, BIPAP needs Home O2 Discharge instructions: No Dressing / Incision Discharge Activity: Return to Normal Activity Weight Bearing Status: Full weight bearing Follow Up Care Test Results: Test results from this visit will be discussed in further detail at your follow- up appointment, if applicable. Discharge Plan Admission Admit Date/Time: 05/01/25 21:28 Primary Reason for Your Visit: Diabetic ketoacidosis Attending Provider: Marcus Alvarez Primary Care Provider: YOLI CLARK Consulting Providers: Ciro Fernández Instructions Additional Instructions / Restrictions: Do not take your dinnertime dose of Humalog tonight only Discharge Orders/Prescriptions Prescriptions: New insulin glargine U-300 conc [Toujeo SoloStar U-300 Insulin] 300 unit/mL (1.5 mL) insulin pen 42 unit subcut QHS Qty: 4.5 0RF Continued (DME) FreeStyle Moncho 2 Sensor Kit See Rx Instructions .Route Qty: 2 5RF Rx Instructions: As directed (DME) lancets [FreeStyle Lancets] 28 gauge misc See Rx Instructions .Route Qty: 100 0RF Rx Instructions: As directed (DME) pen needle, diabetic [BD Ultra-Fine Josefina Pen Needle] 32 gauge x 5/32 needle See Rx Instructions .ROUTE .MEDSUPPLY Qty: 50 5RF Rx Instructions: daily (DME) blood-glucose meter [FreeStyle Lite Meter] Kit See Rx Instructions .Route Qty: 1 0RF Rx Instructions: As directed (DME) lancets [FreeStyle Lancets] 28 gauge misc See Rx Instructions .Route Qty: 100 0RF Rx Instructions: As directed sertraline 50 mg tablet 50 mg PO DAILY lisinopril 5 mg Tablet 5 mg PO DAILY Qty: 30 2RF metformin 1,000 mg tablet 1,000 mg PO DAILY Qty: 30 2RF (DME) FreeStyle Lite Strips Strip See Rx Instructions .Route Qty: 100 2RF Rx Instructions: As directed rosuvastatin 5 mg tablet 10 mg PO DAILY insulin lispro [Humalog KwikPen Insulin] 100 unit/mL Insulin Pen 10 unit subcut TIDAC Qty: 15 3RF acetaminophen [Acetaminophen Extra Strength] 500 mg tablet 1,000 mg PO Q6H PRN (Reason: pain) Discontinued insulin glargine U-300 conc [Toujeo SoloStar U-300 Insulin] 300 unit/mL (1.5 mL) insulin pen 46 unit subcut QHS Referrals / Follow Up: YOLI CLARK CRNP [Primary Care Provider, Family Practice] - Within 1 Week Disposition Disposition (needs filled in before D/C Order can be placed): Home, Self Care
[2025-05-03 13:29] VITALS: BP 158/92; PULSE 115; RESP 16; TEMP 36.9; O2SAT 100
--- NOTE | 2025-05-03 13:39 | PCM.DC.SUM ---
Providers Date of Admission: 05/01/25 Date of Discharge: 05/03/25 Primary Care Physician: YONATAN MONTANA Reason For Visit: DKA, HYPERKALEMIA, BRITTNI AND UTI AFTER RECENT LEFT Diagnosis Discharge Diagnosis (1) DKA, type 1: Status: Acute Code(s): E10.10 - Type 1 diabetes mellitus with ketoacidosis without coma Qualifiers: Diabetes mellitus complication detail: without coma Qualified Code(s): E10.10 - Type 1 diabetes mellitus with ketoacidosis without coma Plan 1. Diabetic ketoacidosis-resolving at this time, patient will be moved to [place] [id number] for further care, I have placed her on twice daily basal insulin and Humalog with each meal., Sliding scale insulin will be administered as needed #2 acute kidney injury secondary to #1-patient's creatinine is improved today, I will continue IV fluids and reassess the patient tomorrow morning, BMP will be repeated in the morning #3 acute cystitis-patient will remain on Rocephin IV #4 chronic depression-patient is on Zoloft Total clinical time spent by myself addressing the patient's medical issues, reviewing all of her data, and collaborating with patient's care team: 35 minutes Medications at Discharge Home Medications flash glucose sensor (FreeStyle Moncho 2 Sensor kit) #2 ea 04/11/22 blood-glucose meter (FreeStyle Lite Meter kit) #1 ea 07/28/22 lancets 28 gauge (FreeStyle Lancets) #100 ea 07/28/22 pen needle, diabetic 32 gauge x 5/32 (BD Ultra-Fine Josefina Pen Needle) #50 ea 07/28/22 lancets 28 gauge (FreeStyle Lancets) #100 ea 07/06/23 sertraline 50 mg tablet 50 mg PO DAILY depression 05/02/24 blood sugar diagnostic (FreeStyle Lite Strips) #100 ea 05/04/24 lisinopril 5 mg tablet 5 mg PO DAILY #30 tabs 05/04/24 metformin 1,000 mg tablet 1,000 mg PO DAILY #30 tabs 05/04/24 rosuvastatin 5 mg tablet 10 mg PO DAILY 12/08/24 insulin lispro 100 unit/mL subcutaneous pen (Humalog KwikPen (U-100) Insulin) 10 unit (0.1 mL) subcut TIDAC diabetes #15 mL 12/10/24 acetaminophen 500 mg tablet (Acetaminophen Extra Strength) 1,000 mg PO Q6H PRN pain 05/01/25 insulin glargine U-300 conc 300 unit/mL (1.5 mL) subcutaneous pen (Toujeo SoloStar U-300 Insulin) 42 unit (0.14 mL) subcut QHS #4.5 mL 05/03/25 Hospital Course Operations None Procedures None Summary of Care Provided Minutes Spent on Discharge: 31 Hospital Course: Patient was seen and examined in the emergency room at [facility] with complaints of nausea vomiting and hyperglycemia, patient is a type I diabetic. Workup in the emergency room included labs which indicated the patient was in DKA, he also was in acute kidney injury secondary to DKA. Finally, patient was noted to have a urinary tract infection. Patient was admitted to ICU, she was treated with an insulin drip and placed on IV antibiotics. Labs were monitored, her creatinine improved during her hospitalization. On 05/03/2025, patient was seen and examined: On examination she appeared in good health and spirits, she does not appear to be in any distress. Vital signs as documented. Skin warm and dry and without overt rashes. Neck without JVD, thyroid appears normal, trachea is midline, neck is supple. Lungs clear, normal air movement was noted. Heart exam notable for regular rhythm, normal sounds and absence of murmurs, rubs or gallops. Abdomen unremarkable and without evidence of organomegaly, masses, or abdominal aortic enlargement, bowel sounds are present in all 4 quadrants, no abdominal tenderness was noted. Extremities nonedematous, no cyanosis was noted, no clubbing was noted. Neuro: Cranial nerves II through XII are grossly intact, no focal motor deficits were noted, sensation to light touch and pinprick is intact, motor exam 5/5 throughout. Psych: Patient is alert and oriented x3, she does not appear anxious or depressed, she does not appear agitated. Patient was discharged home in stable condition on 05/03/2025 Weight / BMI Weight Weight: 59.1 kg Body Mass Index (BMI) 23.1 ABG / Lab / Microbiology Data 05/02/25 03:22 05/03/25 11:35 Laboratory: Laboratory Results - last 24 hr 05/02/25 13:48: Sodium 135, Potassium 4.2, Chloride 110 H, Carbon Dioxide 17.9 L, Anion Gap 8, BUN 23 H, Creatinine 1.54 H, Estim Creat Clear Calc 30.93 L, Est GFR (MDRD) Non-Af 38 L, BUN/Creatinine Ratio 14.8, Glucose 178 H, Calcium 8.7, Phosphorus 3.3, Albumin 3.2 L 05/02/25 16:46: POC Glucose 154 H 05/02/25 21:56: POC Glucose 68 L 05/02/25 23:08: POC Glucose 174 H 05/03/25 06:19: POC Glucose 163 H 05/03/25 11:04: POC Glucose 35 L* 05/03/25 11:28: POC Glucose 79 05/03/25 11:35: Glucose 78 Microbiology: Microbiology 05/01/25 17:48 Urine, Random Urine Culture - Final Staphylococcus aureus 05/01/25 15:53 Mucosa - Nose SARS-CoV-2, Influenza & RSV (PCR) - Final D/C Instructions Weight Bearing Status: Full weight bearing DC O2, CPAP, BIPAP Needs Home O2 Discharge instructions: No Meaningful Use Info Meaningful Use Meaningful Use Diagnoses (Choose all that apply): None applicable Discharge Plan Admission Admit Date/Time: 05/01/25 21:28 Primary Reason for Your Visit: Diabetic ketoacidosis Attending Provider: Marcus Alvarez Primary Care Provider: YOLI CLARK Consulting Providers: Ciro Fernández Instructions Additional Instructions / Restrictions: Do not take your dinnertime dose of Humalog tonight only Discharge Orders/Prescriptions Prescriptions: New insulin glargine U-300 conc [Toujeo SoloStar U-300 Insulin] 300 unit/mL (1.5 mL) insulin pen 42 unit subcut QHS Qty: 4.5 0RF Continued (DME) FreeStyle Moncho 2 Sensor Kit See Rx Instructions .Route Qty: 2 5RF Rx Instructions: As directed (DME) lancets [FreeStyle Lancets] 28 gauge misc See Rx Instructions .Route Qty: 100 0RF Rx Instructions: As directed (DME) pen needle, diabetic [BD Ultra-Fine Josefina Pen Needle] 32 gauge x 5/32 needle See Rx Instructions .ROUTE .MEDSUPPLY Qty: 50 5RF Rx Instructions: daily (DME) blood-glucose meter [FreeStyle Lite Meter] Kit See Rx Instructions .Route Qty: 1 0RF Rx Instructions: As directed (DME) lancets [FreeStyle Lancets] 28 gauge misc See Rx Instructions .Route Qty: 100 0RF Rx Instructions: As directed sertraline 50 mg tablet 50 mg PO DAILY lisinopril 5 mg Tablet 5 mg PO DAILY Qty: 30 2RF metformin 1,000 mg tablet 1,000 mg PO DAILY Qty: 30 2RF (DME) FreeStyle Lite Strips Strip See Rx Instructions .Route Qty: 100 2RF Rx Instructions: As directed rosuvastatin 5 mg tablet 10 mg PO DAILY insulin lispro [Humalog KwikPen Insulin] 100 unit/mL Insulin Pen 10 unit subcut TIDAC Qty: 15 3RF acetaminophen [Acetaminophen Extra Strength] 500 mg tablet 1,000 mg PO Q6H PRN (Reason: pain) Discontinued insulin glargine U-300 conc [Toujeo SoloStar U-300 Insulin] 300 unit/mL (1.5 mL) insulin pen 46 unit subcut QHS Referrals / Follow Up: YOLI CLARK CRNP [Primary Care Provider, Family Practice] - Within 1 Week Disposition Disposition (needs filled in before D/C Order can be placed): Home Health Service Charges/Coding Visit Charges Inpatient E&M: 75337 Disch Hosp >30min
--- NOTE | 2025-05-03 14:14 | PHA.DC.MR.R ---
Pharmacy [place] Med Reconciliation Pharmacy Service has performed discharge medication reconciliation for this patient. The patient's discharge medication list was reviewed for discrepancies and discrepancies were resolved. Medications at Discharge Home Medications flash glucose sensor (FreeStyle Moncho 2 Sensor kit) #2 ea 04/11/22 blood-glucose meter (FreeStyle Lite Meter kit) #1 ea 07/28/22 lancets 28 gauge (FreeStyle Lancets) #100 ea 07/28/22 pen needle, diabetic 32 gauge x 5/32 (BD Ultra-Fine Josefina Pen Needle) #50 ea 07/28/22 lancets 28 gauge (FreeStyle Lancets) #100 ea 07/06/23 sertraline 50 mg tablet 50 mg PO DAILY depression 05/02/24 blood sugar diagnostic (FreeStyle Lite Strips) #100 ea 05/04/24 lisinopril 5 mg tablet 5 mg PO DAILY #30 tabs 05/04/24 metformin 1,000 mg tablet 1,000 mg PO DAILY #30 tabs 05/04/24 rosuvastatin 5 mg tablet 10 mg PO DAILY 12/08/24 insulin lispro 100 unit/mL subcutaneous pen (Humalog KwikPen (U-100) Insulin) 10 unit (0.1 mL) subcut TIDAC diabetes #15 mL 12/10/24 acetaminophen 500 mg tablet (Acetaminophen Extra Strength) 1,000 mg PO Q6H PRN pain 05/01/25 insulin glargine U-300 conc 300 unit/mL (1.5 mL) subcutaneous pen (Toujeo SoloStar U-300 Insulin) 42 unit (0.14 mL) subcut QHS #4.5 mL 05/03/25
== END 2025-05-03 15:58 | disposition home health service (06) | DRG 420 ==
LOC: ED 15:35 → ICU 21:38 → MS3 05-02 16:24
PROVIDERS: Admitting Provider Internal Medicine; Emergency Provider Student in an Organized Health Care Education/Training Program; PCP Nurse Practitioner Adult Health; Visit Provider Internal Medicine
DX: E10.10 Type 1 diabetes mellitus with ketoacidosis without coma (principal); N17.9 Acute kidney failure, unspecified; I10 Essential (primary) hypertension; F32.A Depression, unspecified; K21.9 Gastro-esophageal reflux disease without esophagitis; E87.5 Hyperkalemia; E78.5 Hyperlipidemia, unspecified; Z79.4 Long term (current) use of insulin; F41.9 Anxiety disorder, unspecified; N30.00 Acute cystitis without hematuria; Z86.16 Personal history of COVID-19; Z87.891 Personal history of nicotine dependence; Z79.84 Long term (current) use of oral hypoglycemic drugs; Z83.3 Family history of diabetes mellitus; Z79.899 Other long term (current) drug therapy
CPT/HCPCS: 36600; 71046; 74176; 80051; 80053; 80061; 80069; 81001; 82010; 82803; 82947; 82962; 83036; 83605; 83735; 84100; 84443; 84484; 85025; 87077; 87086; 87088; 87186; 87631; 93005; 97162; 97166; 97535; 97802; 99285; A4216; J2405